=== PATIENT | male | born 1950 | race Caucasian/White ===

== ENCOUNTER 2018-05-06 14:50 | Emergency (ER) | payer OTHER, MEDICARE ==
[2018-05-06] MEDS ORDERED: DEXAMETHASONE SOD PHOS INJ 10 MG/1 ML VIAL IM ONE (15:20)
[2018-05-06] MEDS ORDERED: LIDOCAINE 5% (700 MG) TRANSDERMAL ADH..PATCH TP ONE (15:20)
--- NOTE | 2018-05-06 15:50 | RADIOLOGY REPORT (SQ) ---
EXAM DESCRIPTION: CHEST 2 VIEWS COMPLETED DATE/TIME: 05/06/2018 3:32 pm REASON FOR STUDY: back pain cough COMPARISON: None. NUMBER OF VIEWS: Two view. TECHNIQUE: Frontal and lateral radiographic views of the chest acquired. LIMITATIONS: None. FINDINGS: LUNGS AND PLEURA: No opacities, masses or pneumothorax. No pleural effusion. Attenuated bl ood vessels and flattened cruz-diaphragms. MEDIASTINUM AND HILAR STRUCTURES: No masses. No contour abnormalities. HEART AND VASCULAR STRUCTURES: Heart normal in size and contour. No evidence for failure. BONES: Old left clavicle fracture status post plate and screw fixation. HARDWARE: None in the chest. OTHER: No other significant finding. IMPRESSION: COPD. NO ACUTE RADIOGRAPHIC FINDING IN THE CHEST. TECHNICAL DOCUMENTATION: JOB ID: [id number] [email or web address] All Rights Reserved Reading location - IP/workstation name: [email or web address]
--- NOTE | 2018-05-06 15:51 | RADIOLOGY REPORT (SQ) ---
EXAM DESCRIPTION: L SPINE WHOLE COMPLETED DATE/TIME: 05/06/2018 3:32 pm REASON FOR STUDY: back pain cough COMPARISON: None. NUMBER OF VIEWS: Five views including obliques. TECHNIQUE: AP, lateral, oblique, and sacral radiographic images acquired of the lumbar spine. LIMITATIONS: None. FINDINGS: MINERALIZATION: Normal. SEGMENTATION: Normal. No transitional anatomy. ALIGNMENT: Normal. VERTEBRAE: Maintained height. No fracture or worrisome bone lesion. DISCS: Multilevel disc space narrowing with osteophytes. POSTERIOR ELEMENTS: Pedicles and facets are intact. No pars defect or posterior arch defects. Facet arthropathy is present. HARDWARE: None in the spine. PARASPINAL SOFT TISSUES: Normal. PELVIS: Intact as visualized. No fractures or worrisome bone lesions. SI joints intact. OTHER: No other significant finding. IMPRESSION: SPONDYLOSIS WITHOUT BONE LESION OR FRACTURE. TECHNICAL DOCUMENTATION: JOB ID: [id number] [employer]- All Rights Reserved Reading location - IP/workstation name: [email or web address]
[2018-05-06 16:03] VITALS: BP 164/82
--- NOTE | 2018-05-06 16:06 | ER Document Report ---
ED General - General Chief Complaint: Back Pain Stated Complaint: BACK PAIN Time Seen by Provider: 05/06/18 15:12 TRAVEL OUTSIDE OF THE [place] IN LAST 30 DAYS: No - HPI Patient complains to provider of: Exacerbation of chronic back pain Notes: Patient is a smoker coming in for exacerbation of chronic back pain. Patient states that he is on chronic tramadol therapy however is not been taking his medication stating that "it does not work". Patient states he has oxycodone at home did take the oxycodone with some relief of his pain however only had 2 or 3 and does not have anymore. Patient states he is not taking any of his tramadol today. Patient denies any acute trauma denies any falls denies any fevers chills nausea or vomiting. Pain is worse with moving around. Patient states that he has an appointment to follow-up with pain management in the next 1-2 weeks. Pain is diffuse on the patient's back when having the patient point to an area that specifically hurts - Related Data Allergies/Adverse Reactions: azithromycin Allergy (Verified 05/06/18 14:51) ketorolac [From Toradol] Allergy (Verified 05/06/18 14:51) Penicillins Allergy (Verified 05/06/18 14:51) Past Medical History - Social History Smoking Status: Current Every Day Smoker Family History: Reviewed & Not Pertinent Patient has suicidal ideation: No Patient has homicidal ideation: No - Past Medical History Cardiac Medical History: Reports: Hx Congestive Heart Failure Pulmonary Medical History: Reports: Hx Asthma, Hx Bronchitis, Hx COPD Renal/ Medical History: Denies: Hx Peritoneal Dialysis Review of Systems - Review of Systems Constitutional: No symptoms reported EENT: No symptoms reported Cardiovascular: No symptoms reported Respiratory: No symptoms reported Gastrointestinal: No symptoms reported Genitourinary: No symptoms reported Male Genitourinary: No symptoms reported Musculoskeletal: Back pain Skin: No symptoms reported Hematologic/Lymphatic: No symptoms reported Neurological/Psychological: No symptoms reported -: Yes All other systems reviewed and negative Physical Exam - Vital signs Vitals: Temp Pulse Resp BP Pulse Ox 98.4 F 102 H 24 H 154/72 H 100 05/06/18 14:54 05/06/18 14:54 05/06/18 14:54 05/06/18 14:54 05/06/18 14:54 Interpretation: Normal - General General appearance: Appears well, Alert - HEENT Head: Normocephalic, Atraumatic Eyes: Normal Pupils: PERRL - Respiratory Respiratory status: No respiratory distress Chest status: Nontender Breath sounds: Normal Chest palpation: Normal - Cardiovascular Rhythm: Regular Heart sounds: Normal auscultation Murmur: No - Abdominal Inspection: Normal Distension: No distension Bowel sounds: Normal Tenderness: Nontender Organomegaly: No organomegaly - Back Back: Normal, Tender - Patient has tenderness in the lower L-spine with diffuse paraspinal tenderness T-spine and L-spine. Palpation of the T and L-spine did not reveal any step-offs or deformities. There is no tenderness in the paraspinal region of the neck no midline tenderness - Extremities General upper extremity: Normal inspection, Nontender, Normal color, Normal ROM , Normal temperature General lower extremity: Normal inspection, Nontender, Normal color, Normal ROM , Normal temperature, Normal weight bearing. No: Iliana's sign - Neurological Neuro grossly intact: Yes Cognition: Normal Orientation: AAOx4 [place] Coma Scale Eye Opening: Spontaneous Germaine Coma Scale Verbal: Oriented [place] Coma Scale Motor: Obeys Commands Germaine Coma Scale Total: 15 Speech: Normal Motor strength normal: LUE, RUE, LLE, RLE Sensory: Normal - Psychological Associated symptoms: Normal affect, Normal mood - Skin Skin Temperature: Warm Skin Moisture: Dry Skin Color: Normal Course - Re-evaluation Re-evalutation: 05/06/18 20:37 The patient presents with low back pain without signs of spinal cord compression , cauda equina syndrome, infection, aneurysm, or other serious etiology. The patient is neurologically intact. Given the extremely low risk of these diagnoses further testing and evaluation for these possibilities does not appear to be indicated at this time. The patient has been instructed to return if the symptoms worsen or change in any way. The patient that he is prescribed tramadol recommend patient taking tramadol along with Tylenol or Motrin also to try the Robaxin for his pain. Patient will be discharged home to recommend follow-up primary care physician. - Vital Signs Vital signs: Temp Pulse Resp BP Pulse Ox 98.4 F 95 18 164/82 H 100 05/06/18 16:02 05/06/18 16:02 05/06/18 16:02 05/06/18 16:02 05/06/18 16:02 Discharge - Discharge Clinical Impression: Acute exacerbation of chronic low back pain Condition: Good Disposition: HOME, SELF-CARE Instructions: Ice Packs ([facility]), Low Back Pain ([facility]), Muscle Relaxers ([facility]), Warm Packs ([facility]) Additional Instructions: X-rays not show any acute fracture or other pathology today. Recommend continue with her tramadol at home along with the muscle relaxer provided and taking Tylenol 650 mg. Please make sure you follow-up with your doctors as scheduled return to the ER symptoms worsen. Prescriptions: Methocarbamol [Robaxin 500 mg Tablet] 500 mg PO TID #30 tablet Forms: Smoking Cessation Education
== END 2018-05-06 16:10 | disposition home or self-care (01) ==
LOC: ER 14:50
DX: M54.5 Low back pain (principal); G89.29 Other chronic pain; T40.4X6A Underdosing of other synthetic narcotics, initial encounter; Z91.128 Patient's intentional underdosing of medication regimen for other reason; Z91.14 Patient's other noncompliance with medication regimen; J44.9 Chronic obstructive pulmonary disease, unspecified; F17.200 Nicotine dependence, unspecified, uncomplicated; Z88.1 Allergy status to other antibiotic agents; Z88.8 Allergy status to other drugs, medicaments and biological substances; Z88.0 Allergy status to penicillin
CPT/HCPCS: 99284; 96372; 71046; 72110; J1100

== ENCOUNTER 2019-01-05 21:59 | Inpatient (IN) | payer OTHER, MEDICARE ==
[2019-01-05] MEDS ORDERED: FUROSEMIDE INJ/PF 20 MG/2 ML SDV IV ONE (22:13)
--- NOTE | 2019-01-05 22:17 | ER Document Report ---
ED General - General Stated Complaint: DIFFICULTY BREATHING Time Seen by Provider: 01/05/19 22:05 Notes: Patient is a 68-year-old male who presents with complaint of difficulty breathing. He was seen a week ago by his primary care provider. She informed him that he probably has walking pneumonia and placed him on antibiotics. Said he is finished antibiotic of his breathing is gotten worse. He was also given Tessalon Perles. He denies any chest pain. No fevers. Patient has edema in bilateral lower extremities and is worse difficulty breathing. He says he al ways has some mild edema but has become much worse. He is not on any type of water pill her fluid pill. He does have a known history of CHF as well as a history of cirrhosis of liver. He has not drink alcohol for 10 years. He does smoke. TRAVEL OUTSIDE OF THE [place] IN LAST 30 DAYS: No - Related Data Allergies/Adverse Reactions: azithromycin Allergy (Verified 05/06/18 14:51) ketorolac [From Toradol] Allergy (Verified 05/06/18 14:51) Penicillins Allergy (Verified 05/06/18 14:51) Past Medical History - Social History Smoking Status: Current Every Day Smoker Frequency of alcohol use: former Drug Abuse: None Family History: Reviewed & Not Pertinent - Past Medical History Cardiac Medical History: Reports: Hx Congestive Heart Failure Pulmonary Medical History: Reports: Hx Asthma, Hx Bronchitis, Hx COPD Renal/ Medical History: Denies: Hx Peritoneal Dialysis Review of Systems - Review of Systems Notes: My Normal Review Basic REVIEW OF SYSTEMS: CONSTITUTIONAL : Denies fever, chills, or sweats. Denies recent illness. EENT: Denies eye, ear, throat, or mouth pain or symptoms. Denies nasal or sinus congestion. CARDIOVASCULAR: Denies chest pain. RESPIRATORY: Dyspnea GASTROINTESTINAL: Denies abdominal pain. Denies nausea, vomiting, or diarrhea. GENITOURINARY: Denies difficulty urinating, painful urination, burning, frequency, or blood in urine. MUSCULOSKELETAL: Edema lower extremities SKIN: Denies rash or skin lesions. NEUROLOGICAL: Denies altered mental status or loss of consciousness. Denies headache. Denies weakness or paralysis or loss of use of either side. Denies problems with gait or speech. Denies sensory or motor loss. ALL OTHER SYSTEMS REVIEWED AND NEGATIVE. Physical Exam - Vital signs Vitals: Temp Pulse Resp BP Pulse Ox 98.3 F 118 H 24 H 113/78 98 01/05/19 22:00 01/05/19 22:00 01/05/19 22:00 01/05/19 22:00 01/05/19 22:00 - Notes Notes: General Appearance: Well nourished, alert, cooperative, mild to moderate acute distress, no obvious discomfort. Recurrent coughing during exam. Vitals: reviewed, See vital signs table. Head: no swelling or tenderness to the head Eyes: PERRL, EOMI, Conjuctiva clear Mouth: No decreasd moisture Throat: No tonsillar inflammation, No airway obstruction, No lymphadenopathy Neck: Supple, no neck tenderness, No thyromegaly Lungs: No wheezing, bilateral rales, No rhonci, No accessory muscle use, good air exchange bilaterally. Heart: Normal rate, Regular rythm, No murmur, no rub Abdomen: Normal BS, soft, No rigidity, No abdominal tenderness, No guarding, no rebound, no abdominal masses, no organomegaly Extremities: good pulses in all extremities, no swelling or tenderness in the extremities, 2+ bilateral lower extremity edema. Skin: warm, dry, appropriate color, no rash Neuro: speech clear, oriented x 3, normal affect, responds appropriately to questions. Course - Re-evaluation Re-evalutation: 01/06/19 00:15 Patient has what appears to be fluid overload. He has 3+ edema in his lower extremities. He has elevated BNP. He has rales throughout his lung field on auscultation. He is tachycardic. Symptoms consistent with CHF exacerbation. Have given Lasix. Pain he continues to be tachycardic and continues to have some shortness of breath and is appropriate for admission. I did speak with the hospitalist, Dr. Coe, who agrees to evaluate the patient for admission. Dictation of this chart was performed using voice recognition software; therefore, there may be some unintended grammatical errors. - Vital Signs Vital signs: Temp Pulse Resp BP Pulse Ox 98.3 F 118 H 27 H 126/76 H 96 01/05/19 22:00 01/05/19 22:00 01/05/19 23:01 01/05/19 23:01 01/05/19 23:01 - Laboratory Result Diagrams: 01/05/19 22:44 01/05/19 22:44 Laboratory results interpreted by me: 01/05/19 01/05/19 01/05/19 22:44 22:44 22:44 RBC 4.34 L Hgb 11.5 L Hct 34.6 L MCH 26.5 L RDW 16.2 H Basophils % 2.4 H Sodium 134.1 L AST 115 H Alkaline Phosphatase 222 H NT-Pro-B Natriuret Pep 4980 H Albumin 3.3 L - EKG Interpretation by Me Additional EKG results interpreted by me: 01/05/19 23:20 EKG is reviewed and interpreted by me. EKG shows what I suspect is multifocal atrial tachycardia and that he has a very regular rhythm and he has P waves that appeared to have at least 2 different morphologies. TX interval is within normal range. QRS duration QT intervals are within normal range. Patient could also potentially having a regular sinus tachycardia with occasional PACs. Is difficult to tell by the single EKG. Discharge - Discharge Clinical Impression: Dyspnea Qualifiers: Dyspnea type: orthopnea Qualified Code(s): R06.01 - Orthopnea CHF exacerbation Qualifiers: Heart failure type: unspecified Qualified Code(s): I50.9 - Heart failure, unspecified Condition: Stable Disposition: ADMITTED OBSERVATION Admitting Provider: Saravanan (Hospitalist) Unit Admitted: Telemetry
--- NOTE | 2019-01-05 22:44 | RADIOLOGY REPORT (SQ) ---
EXAM DESCRIPTION: XR CHEST 1 VIEW COMPLETED DATE/TME: 01/05/2019 22:12 CLINICAL HISTORY: 68 years Male, dyspnea COMPARISON: May 06, 2018 NUMBER OF VIEWS/TECHNIQUE: 1/AP FINDINGS: Small bibasilar opacity-effusion. Atherosclerotic vascular disease. Prominent interstitium. Mildly enlarged cardiac silhouette. Osteotomy plate of the left clavicle. No pneumothorax. Stable bony thorax. IMPRESSION: 1. Small bibasilar pneumonia, atelectasis, and/or effusion. 2. Mildly enlarged cardiac silhouette.
[2019-01-05 23:04] LABS: ABSOLUTE BASOPHILS # (AUTO) 0.2 10^3/uL (0.0-0.2); ABSOLUTE EOSINOPHILS # (AUTO) 0.3 10^3/uL (0.0-0.6); ABSOLUTE LYMPHOCYTES (AUTO) 1.4 10^3/uL (0.5-4.7); ABSOLUTE MONOCYTES (AUTO) 0.5 10^3/uL (0.1-1.4); ABSOLUTE NEUT (AUTO) 4.6 10^3/uL (1.7-8.2); BASOPHILS % (AUTO) 2.4 % (0-2); EOSINOPHILS % (AUTO) 3.8 % (0-6); HEMATOCRIT 34.6 % (37.9-51.0); HEMOGLOBIN 11.5 g/dL (13.5-17.0); LYMPHOCYTES % (AUTO) 20.2 % (13-45); MEAN CORPUSCULAR HEMOGLOBIN 26.5 pg (27.0-33.4); MEAN CORPUSCULAR HGB CONC 33.3 g/dL (32.0-36.0); MEAN CORPUSCULAR VOLUME 80 fl (80-97); MONOCYTES % (AUTO) 7.2 % (3-13); PLATELET COUNT 192 10^3/uL (150-450); RED BLOOD COUNT 4.34 10^6/uL (4.35-5.55); RED CELL DISTRIBUTION WIDTH 16.2 % (11.5-14.0); SEGMENTED NEUTROPHILS % (AUTO) 66.4 % (42-78); TOTAL CELLS COUNTED % (AUTO) 100 %
[2019-01-05 23:08] LABS: PROTHROMBIN TIME 14.8 SEC (11.4-15.4)
[2019-01-05 23:22] LABS: ALANINE AMINOTRANSFERASE 70 U/L (21-72); ALBUMIN 3.3 g/dL (3.5-5.0); ALKALINE PHOSPHATASE 222 U/L (38-126); ANION GAP 9 (5-19); ASPARTATE AMINO TRANSFERASE 115 U/L (17-59); BILIRUBIN,DIRECT 0.4 mg/dL (0.0-0.4); BILIRUBIN,TOTAL 0.7 mg/dL (0.2-1.3); BLOOD UREA NITROGEN 20 mg/dL (7-20); CALCIUM 8.8 mg/dL (8.4-10.2); CARBON DIOXIDE 25 mmol/L (22-30); CHLORIDE 100 mmol/L (98-107); GLUCOSE 103 mg/dL (75-110); POTASSIUM 3.9 mmol/L (3.6-5.0); SODIUM 134.1 mmol/L (137-145); TOTAL PROTEIN 7.2 g/dL (6.3-8.2)
[2019-01-05 23:37] LABS: TROPONIN I 0.046 ng/mL
[2019-01-06] MEDS ORDERED: MAGNESIUM HYDROXIDE SUSP 30 ML UDCUP PO PRN (00:14)
[2019-01-06] MEDS ORDERED: ACETAMINOPHEN 325 MG TABLET PO PRN (00:14)
[2019-01-06] MEDS ORDERED: MAG HYDROX/AL HYDROX/SIMETH SUSP 30 ML UDCUP PO PRN (00:14)
[2019-01-06] MEDS ORDERED: FUROSEMIDE INJ/PF 20 MG/2 ML SDV IV ONE (00:16)
[2019-01-06] MEDS ORDERED: METOPROLOL TARTRATE PF/INJ 5 MG/5 ML SDV IV ONE (00:44)
[2019-01-06] MEDS ORDERED: ONDANSETRON HCL INJ/PF 4 MG/2 ML SDV IV ONE (01:53)
[2019-01-06] MEDS ORDERED: ASPIRIN 81 MG TABLET, CHEWABLE PO ONE (02:30)
[2019-01-06] MEDS ORDERED: ENOXAPARIN SODIUM INJ 80 MG/0.8 ML DISP.SYRIN SUBCUT ONE (02:30)
[2019-01-06] MEDS ORDERED: CLOPIDOGREL BISULFATE 300 MG TABLET PO ONE (02:30)
[2019-01-06] MEDS: LORAZEPAM INJ 2 MG/1 ML VIAL IV PRN ×2 (03:03→23:17)
[2019-01-06 04:38] LABS: ANION GAP 7 (5-19); BLOOD UREA NITROGEN 20 mg/dL (7-20); CALCIUM 8.6 mg/dL (8.4-10.2); CARBON DIOXIDE 27 mmol/L (22-30); CHLORIDE 102 mmol/L (98-107); GLUCOSE 98 mg/dL (75-110); POTASSIUM 3.8 mmol/L (3.6-5.0); SODIUM 135.6 mmol/L (137-145)
[2019-01-06 05:22] LABS: APPEARANCE,URINE CLEAR; BILIRUBIN,URINE NEGATIVE (NEGATIVE); COLOR,URINE YELLOW; GLUCOSE, URINE NEGATIVE (NEGATIVE); KETONES,URINE NEGATIVE (NEGATIVE); LEUKOCYTE ESTERASE,URINE NEGATIVE (NEGATIVE); NITRITE,URINE NEGATIVE (NEGATIVE); PROTEIN,URINE NEGATIVE (NEGATIVE); URINE SPECIFIC GRAVITY 1.019
--- NOTE | 2019-01-06 05:26 | PDOC H&P ---
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 Patient presents with 2 weeks of shortness of breath prompting him to seek evaluation at primary care where he is diagnosed with bronchitis and placed on antibiotics with out significant improvement he is subsequently noted nonproductive cough, lower extremity edema and orthopnea prompting to seek evaluation in the emergency room where he is found to have tachycardia, pulmonary vascular congestion, small left-sided pleural effusion, +3 lower extremity edema and a worrisome elevation of AST suggestive of recurrent alcohol dependence. When asked about his known untreated congestive heart failure patient is unable to respond. Past Medical History Cardiac Medical History: Reports: Congestive Heart Failure Pulmonary Medical History: Reports: Asthma, Bronchitis, Chronic Obstructive Pulmonary Disease (COPD) Psychiatric Medical History: Reports: Alcohol Dependency, Tobacco Dependency Past Surgical History Past Surgical History: Reports: Gastric Bypass Surgery Social History Information Source: Patient Smoking Status: Current Every Day Smoker Frequency of Alcohol Use: Heavy - Unclear Drugs: None - Advance Directive Resuscitation Status: Full Code Family History Family History: CAD, COPD, Hypertension Parental Family History Reviewed: Yes Children Family History Reviewed: Yes Sibling(s) Family History Reviewed.: Yes Medication/Allergy Home Medications: Methocarbamol [Robaxin 500 mg Tablet] 500 mg PO TID #30 tablet 05/06/18 Allergies/Adverse Reactions: azithromycin Allergy (Verified 05/06/18 14:51) ketorolac [From Toradol] Allergy (Verified 05/06/18 14:51) Penicillins Allergy (Verified 05/06/18 14:51) Review of Systems Constitutional: PRESENT: as per HPI. ABSENT: chills, fever(s), headache(s), weight gain, weight loss Eyes: ABSENT: visual disturbances Ears: ABSENT: hearing changes Cardiovascular: PRESENT: as per HPI, dyspnea on exertion, edema, orthropnea. ABSENT: chest pain, palpitations Respiratory: PRESENT: as per HPI, cough, dyspnea, sputum. ABSENT: hemoptysis Gastrointestinal: ABSENT: abdominal pain, constipation, diarrhea, hematemesis, hematochezia, nausea, vomiting Genitourinary: ABSENT: dysuria, hematuria Musculoskeletal: ABSENT: joint swelling Integumentary: ABSENT: rash, wounds Neurological: ABSENT: abnormal gait, abnormal speech, confusion, dizziness, focal weakness, syncope Psychiatric: ABSENT: anxiety, depression, homidical ideation, suicidal ideation Endocrine: ABSENT: cold intolerance, heat intolerance, polydipsia, polyuria Hematologic/Lymphatic: ABSENT: easy bleeding, easy bruising Physical Exam Vital Signs: Temp Pulse Resp BP Pulse Ox 97.3 F 118 H 20 93/70 L 97 01/06/19 05:09 01/05/19 22:00 01/06/19 05:09 01/06/19 05:09 01/06/19 05:09 Intake & Output 01/04/19 01/05/19 01/06/19 11:59 11:59 11:59 Output Total 1600 Balance -1600 Weight 83.8 kg Results Laboratory Results: 01/05/19 22:44 01/06/19 04:00 01/05/19 01/05/19 01/05/19 22:44 22:44 22:44 WBC 7.0 RBC 4.34 L Hgb 11.5 L Hct 34.6 L MCV 80 MCH 26.5 L MCHC 33.3 RDW 16.2 H Plt Count 192 Seg Neutrophils % 66.4 Lymphocytes % 20.2 Monocytes % 7.2 Eosinophils % 3.8 Basophils % 2.4 H Absolute Neutrophils 4.6 Absolute Lymphocytes 1.4 Absolute Monocytes 0.5 Absolute Eosinophils 0.3 Absolute Basophils 0.2 Sodium 134.1 L Potassium 3.9 Chloride 100 Carbon Dioxide 25 Anion Gap 9 BUN 20 Creatinine 0.66 Est GFR ( Amer) > 60 Est GFR (Non-Af Amer) > 60 Glucose 103 Calcium 8.8 Total Bilirubin 0.7 AST 115 H ALT 70 Alkaline Phosphatase 222 H Total Protein 7.2 Albumin 3.3 L Lipase TSH 2.14 01/05/19 01/06/19 22:44 04:00 WBC RBC Hgb Hct MCV MCH MCHC RDW Plt Count Seg Neutrophils % Lymphocytes % Monocytes % Eosinophils % Basophils % Absolute Neutrophils Absolute Lymphocytes Absolute Monocytes Absolute Eosinophils Absolute Basophils Sodium 135.6 L Potassium 3.8 Chloride 102 Carbon Dioxide 27 Anion Gap 7 BUN 20 Creatinine 0.63 Est GFR ( Amer) > 60 Est GFR (Non-Af Amer) > 60 Glucose 98 Calcium 8.6 Total Bilirubin AST ALT Alkaline Phosphatase Total Protein Albumin Lipase 49.8 TSH 04/24/19 04/25/19 22:44 04:00 Troponin I 0.046 0.046 NT-Pro-B Natriuret Pep 4980 H Impressions: Chest X-Ray 01/05/19 22:12 IMPRESSION: 1. Small bibasilar pneumonia, atelectasis, and/or effusion. 2. Mildly enlarged cardiac silhouette. Assessment and Plan - Diagnosis (1) CHF exacerbation Qualifiers: Heart failure type: unspecified Qualified Code(s): I50.9 - Heart failure, unspecified Is this a current diagnosis for this admission?: Yes Plan: Initiate beta-sarina, MILAGRO inhibitor, diuresis with loop diuretic. Follow-up serial enzymes and echo (2) Bronchitis Is this a current diagnosis for this admission?: Yes Plan: Flonase, flutter valve. Consider steroids (3) Dyspnea Qualifiers: Dyspnea type: orthopnea Qualified Code(s): R06.01 - Orthopnea Is this a current diagnosis for this admission?: Yes Plan: Multifactorial secondary to CHF exacerbation acute on chronic bronchitis. (4) Alcohol dependence Is this a current diagnosis for this admission?: Yes Plan: Clear history, current denial with tachycardia and elevated AST worrisome for resumption of alcohol. Thiamine, folate, Ativan as needed - Time Time Spent with patient: 35 or more minutes
[2019-01-06] MEDS ORDERED: CHLORPHENIRAMINE MALEATE 4 MG TABLET PO SCH ×2 (06:00→12:00)
[2019-01-06] MEDS ORDERED: HEPARIN SOD (PORCINE) 5,000 UNIT/ML 1 ML SYRINGE SUBCUT SCH (06:00)
--- NOTE | 2019-01-06 08:50 | EKG REPORT ---
SEVERITY:- BORDERLINE ECG - SINUS TACHYCARDIA WITH IRREGULAR RATE 97-160 BORDERLINE T ABNORMALITIES, ANT-LAT LEADS : Confirmed by: Edu Baker MD 06-Jan-2019 08:49:40
[2019-01-06] MEDS: CHLORPHENIRAMINE MALEATE 4 MG TABLET PO SCH ×4 (10:09→23:17)
[2019-01-06] MEDS: THIAMINE HCL 100 MG TABLET PO SCH (10:10)
[2019-01-06] MEDS: DOCUSATE SODIUM 100 MG CAPSULE PO SCH (10:10)
[2019-01-06] MEDS: ASPIRIN 81 MG TABLET, ENT COATED PO SCH (10:10)
[2019-01-06] MEDS: FUROSEMIDE 40 MG TABLET PO SCH (10:10)
[2019-01-06] MEDS: FLUTICASONE NASAL SPRAY 50 MCG/SPRY 120 SPRAY/16 GM NASL SCH ×2 (10:12→22:17)
[2019-01-06] MEDS: NICOTINE 14 MG/24 HR PATCH.TD24 TD SCH (10:13)
[2019-01-06] MEDS: NITROGLYCERIN 5 MG (0.2 MG/HR) PATCH.TD24 TD SCH (10:15)
[2019-01-06] MEDS: TRAMADOL HCL 50 MG TABLET PO PRN ×2 (14:58→22:17)
[2019-01-06] MEDS ORDERED: GUAIFENESIN/D-METHORPHAN (200-20 MG) SYRUP 10 ML PO PRN (15:36)
--- NOTE | 2019-01-06 17:15 | PDOC PROGRESS REPORT ---
Subjective Progress Note for:: 01/06/19 Subjective:: Patient seen resting on side of the bed. He is on oxygen at 3 L/min nasal cannula. He denies chest pain, shortness of breath or dyspnea at rest. He continues to have occasional productive cough. He. He denies any fevers or chills. States he gets dyspneic with minimal exertion. But he is much better than he was when he came in. He denies any significant arthralgias or myalgias. Remaining review of systems are negative Reason For Visit: HEART FAILURE Physical Exam Vital Signs: Temp Pulse Resp BP Pulse Ox 98.4 F 104 H 21 H 101/60 98 01/06/19 05:25 01/06/19 07:59 01/06/19 07:59 01/06/19 07:59 01/06/19 07:59 Intake & Output 01/05/19 01/06/19 01/07/19 06:59 06:59 06:59 Intake Total 0 Output Total 1600 Balance -1600 Weight 83.8 kg General appearance: PRESENT: no acute distress, well-developed, well-nourished Head exam: PRESENT: atraumatic, normocephalic Eye exam: PRESENT: conjunctiva pink, EOMI, PERRLA. ABSENT: scleral icterus Ear exam: PRESENT: normal external ear exam Mouth exam: PRESENT: moist, tongue midline Teeth exam: PRESENT: poor dentation Neck exam: ABSENT: carotid bruit, JVD, lymphadenopathy, thyromegaly Respiratory exam: PRESENT: crackles - Lateral basis, symmetrical, unlabored Cardiovascular exam: PRESENT: RRR. ABSENT: diastolic murmur, rubs, systolic murmur Pulses: PRESENT: normal carotid pulses, normal radial pulses Vascular exam: PRESENT: normal capillary refill GI/Abdominal exam: PRESENT: normal bowel sounds, soft. ABSENT: distended, guarding, mass, organolmegaly, rebound, tenderness Rectal exam: PRESENT: deferred Extremities exam: PRESENT: full ROM, +2 edema - Pedal to the knees Musculoskeletal exam: PRESENT: ambulatory, full ROM Neurological exam: PRESENT: alert, awake, oriented to person, oriented to place, oriented to time, oriented to situation, CN II-XII grossly intact. ABSENT: motor sensory deficit Psychiatric exam: PRESENT: appropriate affect, normal mood. ABSENT: homicidal ideation, suicidal ideation Skin exam: PRESENT: dry, intact, warm. ABSENT: cyanosis, rash Results Laboratory Results: 01/05/19 22:44 01/06/19 04:00 01/05/19 01/05/19 01/05/19 22:44 22:44 22:44 WBC 7.0 RBC 4.34 L Hgb 11.5 L Hct 34.6 L MCV 80 MCH 26.5 L MCHC 33.3 RDW 16.2 H Plt Count 192 Seg Neutrophils % 66.4 Lymphocytes % 20.2 Monocytes % 7.2 Eosinophils % 3.8 Basophils % 2.4 H Absolute Neutrophils 4.6 Absolute Lymphocytes 1.4 Absolute Monocytes 0.5 Absolute Eosinophils 0.3 Absolute Basophils 0.2 Sodium 134.1 L Potassium 3.9 Chloride 100 Carbon Dioxide 25 Anion Gap 9 BUN 20 Creatinine 0.66 Est GFR ( Amer) > 60 Est GFR (Non-Af Amer) > 60 Glucose 103 Calcium 8.8 Total Bilirubin 0.7 AST 115 H ALT 70 Alkaline Phosphatase 222 H Total Protein 7.2 Albumin 3.3 L Lipase TSH 2.14 Urine Color Urine Appearance Urine pH Ur Specific [place] Urine Protein Urine Glucose (UA) Urine Ketones Urine Blood Urine Nitrite Ur Leukocyte Esterase Urine WBC (Auto) Urine RBC (Auto) 01/05/19 01/06/19 01/06/19 22:44 03:00 04:00 WBC RBC Hgb Hct MCV MCH MCHC RDW Plt Count Seg Neutrophils % Lymphocytes % Monocytes % Eosinophils % Basophils % Absolute Neutrophils Absolute Lymphocytes Absolute Monocytes Absolute Eosinophils Absolute Basophils Sodium 135.6 L Potassium 3.8 Chloride 102 Carbon Dioxide 27 Anion Gap 7 BUN 20 Creatinine 0.63 Est GFR ( Amer) > 60 Est GFR (Non-Af Amer) > 60 Glucose 98 Calcium 8.6 Total Bilirubin AST ALT Alkaline Phosphatase Total Protein Albumin Lipase 49.8 TSH Urine Color YELLOW Urine Appearance CLEAR Urine pH 5.0 Ur Specific [place] 1.019 Urine Protein NEGATIVE Urine Glucose (UA) NEGATIVE Urine Ketones NEGATIVE Urine Blood NEGATIVE Urine Nitrite NEGATIVE Ur Leukocyte Esterase NEGATIVE Urine WBC (Auto) 1 Urine RBC (Auto) 0 01/05/19 01/06/19 22:44 04:00 Troponin I 0.046 0.046 NT-Pro-B Natriuret Pep 4980 H Impressions: Chest X-Ray 01/05/19 22:12 IMPRESSION: 1. Small bibasilar pneumonia, atelectasis, and/or effusion. 2. Mildly enlarged cardiac silhouette. Assessment and Plan - Diagnosis (1) CHF exacerbation Qualifiers: Heart failure type: unspecified Qualified Code(s): I50.9 - Heart failure, unspecified Is this a current diagnosis for this admission?: Yes Plan: Initiate beta-sarina, MILAGRO inhibitor, diuresis with loop diuretic. Follow-up serial enzymes and echo. (2) Bronchitis Is this a current diagnosis for this admission?: Yes Plan: Flonase, flutter valve. Consider steroids (3) Dyspnea Qualifiers: Dyspnea type: orthopnea Qualified Code(s): R06.01 - Orthopnea Is this a current diagnosis for this admission?: Yes Plan: Multifactorial secondary to CHF exacerbation acute on chronic bronchitis. (4) Tobacco abuse Is this a current diagnosis for this admission?: Yes Plan: Counseled. He is contemplating quitting smoking (5) Cirrhosis Is this a current diagnosis for this admission?: Yes Plan: He states he has not drank in some time. He takes no medications for cirrhosis - Time Time Spent with patient: 25-34 minutes Total Critical Time (Minutes): 25 Smoking Cessation Education: 3 to 10 minutes Medications reviewed and adjusted accordingly: Yes Anticipated discharge: Home with Homehealth Within: within 24 hours - Inpatient Certification Based on my medical assessment, after consideration of the patient's comorbidities, presenting symptoms, or acuity I expect that the services needed warrant INPATIENT care.: Yes I certify that my determination is in accordance with my understanding of Medicare's requirements for reasonable and necessary INPATIENT services [42 CFR 412.3e].: Yes Medical Necessity: Failure to Improve With Outpatient Therapy, Significant Comorbidiites Make Outpatient Treatment Too Risky
[2019-01-06] MEDS: NYSTATIN CREAM 15 GM TP SCH (18:04)
[2019-01-06] MEDS: ENOXAPARIN SODIUM INJ 80 MG/0.8 ML DISP.SYRIN SUBCUT SCH (18:05)
[2019-01-06] MEDS: BENZOCAINE/MENTHOL SORE THROAT LOZENGE BUCCAL PRN ×2 (20:37→22:16)
[2019-01-07] MEDS: BENZOCAINE/MENTHOL SORE THROAT LOZENGE BUCCAL PRN ×5 (05:09→21:45)
[2019-01-07] MEDS: ENOXAPARIN SODIUM INJ 80 MG/0.8 ML DISP.SYRIN SUBCUT SCH (05:09)
[2019-01-07 07:37] LABS: HEMATOCRIT 35.2 % (37.9-51.0); HEMOGLOBIN 11.6 g/dL (13.5-17.0); MEAN CORPUSCULAR HEMOGLOBIN 26.2 pg (27.0-33.4); MEAN CORPUSCULAR VOLUME 79 fl (80-97); PLATELET COUNT 173 10^3/uL (150-450); RED BLOOD COUNT 4.44 10^6/uL (4.35-5.55); WHITE BLOOD COUNT 6.1 10^3/uL (4.0-10.5)
[2019-01-07 08:09] LABS: ANION GAP 8 (5-19); BLOOD UREA NITROGEN 21 mg/dL (7-20); CALCIUM 7.9 mg/dL (8.4-10.2); CARBON DIOXIDE 31 mmol/L (22-30); CHLORIDE 97 mmol/L (98-107); GLUCOSE 102 mg/dL (75-110); POTASSIUM 4.1 mmol/L (3.6-5.0); SODIUM 136.3 mmol/L (137-145)
[2019-01-07] MEDS: POTASSIUM CHLORIDE 10 MEQ CAPSULE.ER PO SCH (09:57)
[2019-01-07] MEDS: THIAMINE HCL 100 MG TABLET PO SCH (09:57)
[2019-01-07] MEDS: LOSARTAN POTASSIUM 25 MG TABLET PO SCH (09:57)
[2019-01-07] MEDS: NICOTINE 14 MG/24 HR PATCH.TD24 TD SCH (09:57)
[2019-01-07] MEDS: ASPIRIN 81 MG TABLET, ENT COATED PO SCH (09:57)
[2019-01-07] MEDS: FUROSEMIDE 40 MG TABLET PO SCH (09:57)
[2019-01-07] MEDS: DOCUSATE SODIUM 100 MG CAPSULE PO SCH (09:57)
[2019-01-07] MEDS: NYSTATIN CREAM 15 GM TP SCH ×2 (10:14→17:33)
[2019-01-07] MEDS: FLUTICASONE NASAL SPRAY 50 MCG/SPRY 120 SPRAY/16 GM NASL SCH ×2 (10:14→21:46)
[2019-01-07] MEDS: NITROGLYCERIN 5 MG (0.2 MG/HR) PATCH.TD24 TD SCH (10:14)
[2019-01-07] MEDS: GUAIFENESIN/CODEINE PHOS 100-10 MG/ 5 ML UDC PO PRN ×2 (12:10→21:49)
[2019-01-07] MEDS: MIDODRINE HCL 5 MG TABLET PO SCH (17:32)
[2019-01-07] MEDS: METOPROLOL SUCCINATE 25 MG TAB.SR.24H PO SCH (17:32)
[2019-01-07] MEDS ORDERED: HYDROCODONE BIT/HOMATROPINE SYRUP 5 ML UDCUP PO PRN (17:32)
--- NOTE | 2019-01-07 17:39 | PDOC PROGRESS REPORT ---
Subjective Progress Note for:: 01/07/19 Subjective:: Patient seen resting on side of the bed. He is on oxygen at 2 L/min nasal cannula. He denies chest pain, shortness of breath or dyspnea at rest. He continues to have occasional productive cough. He. He denies any fevers or chills. He states shortness of breath is improved with exertion. He is asking when he can go home. He is feeling much better than he was when he came in. He denies any significant arthralgias or myalgias. Remaining review of systems are negative Reason For Visit: ACUTE ON CHRONIC DIASTOLIC HEART FAILURE Physical Exam Vital Signs: Temp Pulse Resp BP Pulse Ox 98.0 F 94 22 H 97/65 L 96 01/07/19 11:52 01/07/19 14:00 01/07/19 11:52 01/07/19 11:52 01/07/19 11:52 Intake & Output 01/06/19 01/07/19 01/08/19 06:59 06:59 06:59 Intake Total 0 638 Output Total 1600 Balance -1600 638 Weight 83.8 kg 84.8 kg General appearance: PRESENT: no acute distress, well-developed, well-nourished Head exam: PRESENT: atraumatic, normocephalic Eye exam: PRESENT: conjunctiva pink, EOMI, PERRLA. ABSENT: scleral icterus Ear exam: PRESENT: normal external ear exam Mouth exam: PRESENT: moist Teeth exam: PRESENT: poor dentation Neck exam: ABSENT: carotid bruit, JVD, lymphadenopathy, thyromegaly Respiratory exam: PRESENT: crackles, symmetrical, unlabored - bilateral bases Cardiovascular exam: PRESENT: +S1, +S2 Pulses: PRESENT: normal carotid pulses, normal radial pulses Vascular exam: PRESENT: normal capillary refill Rectal exam: PRESENT: deferred Extremities exam: PRESENT: full ROM, +1 edema Musculoskeletal exam: PRESENT: ambulatory Neurological exam: PRESENT: alert, awake, oriented to person, oriented to place, oriented to time, oriented to situation, CN II-XII grossly intact. ABSENT: motor sensory deficit Psychiatric exam: PRESENT: appropriate affect, normal mood. ABSENT: homicidal ideation, suicidal ideation Skin exam: PRESENT: dry, skin tears - left elbow, warm Results Laboratory Results: 01/07/19 07:26 01/07/19 07:26 01/07/19 01/07/19 07:26 07:26 WBC 6.1 RBC 4.44 Hgb 11.6 L Hct 35.2 L MCV 79 L MCH 26.2 L MCHC 33.0 RDW 16.0 H Plt Count 173 Sodium 136.3 L Potassium 4.1 Chloride 97 L Carbon Dioxide 31 H Anion Gap 8 BUN 21 H Creatinine 0.69 Est GFR ( Amer) > 60 Est GFR (Non-Af Amer) > 60 Glucose 102 Calcium 7.9 L 01/05/19 01/06/19 01/07/19 22:44 04:00 07:26 Troponin I 0.046 0.046 0.051 NT-Pro-B Natriuret Pep 4980 H Impressions: Chest X-Ray 01/05/19 22:12 IMPRESSION: 1. Small bibasilar pneumonia, atelectasis, and/or effusion. 2. Mildly enlarged cardiac silhouette. Assessment and Plan - Diagnosis (1) CHF exacerbation Qualifiers: Heart failure type: systolic Qualified Code(s): I50.23 - Acute on chronic systolic (congestive) heart failure Is this a current diagnosis for this admission?: Yes Plan: Initiate beta-sarina, MILAGRO inhibitor, diuresis with loop diuretic. Echocardiogram shows his EF to be 20%. His blood pressure has been marginal in the 90s to low 100s. Case was discussed with Dr. Sandoval, director of institutional research. He suggested starting patient on midodrine and and Toprol-XL. He has been having a lot of ectopy with PACs, and PVCs. She states he was told over 7 years ago that he had heart failure. He never has seen a director of institutional research. He states he would like to see a mortgage loan specialist because "I am not ready to ." (2) Bronchitis Is this a current diagnosis for this admission?: Yes Plan: Flonase, flutter valve. Consider steroids (3) Dyspnea Qualifiers: Dyspnea type: orthopnea Qualified Code(s): R06.01 - Orthopnea Is this a current diagnosis for this admission?: Yes Plan: Multifactorial secondary to CHF exacerbation acute on chronic bronchitis. (4) Tobacco abuse Is this a current diagnosis for this admission?: Yes Plan: Counseled. He is contemplating quitting smoking (5) Cirrhosis Is this a current diagnosis for this admission?: Yes Plan: He states he has not drank in some time, over 7 years. He takes no medications for cirrhosis - Time Time Spent with patient: 25-34 minutes Total Critical Time (Minutes): 25 Medications reviewed and adjusted accordingly: Yes - Inpatient Certification Based on my medical assessment, after consideration of the patient's comorbidities, presenting symptoms, or acuity I expect that the services needed warrant INPATIENT care.: Yes I certify that my determination is in accordance with my understanding of Medicare's requirements for reasonable and necessary INPATIENT services [42 CFR 412.3e].: Yes Medical Necessity: Failure to Improve With Outpatient Therapy, Need For Continuous Telemetry Monitoring, Risk of Complication if Not Cared For in Hospital
[2019-01-07 17:59] LABS: APPEARANCE,URINE CLEAR; BILIRUBIN,URINE NEGATIVE (NEGATIVE); COLOR,URINE STRAW; GLUCOSE, URINE NEGATIVE (NEGATIVE); KETONES,URINE NEGATIVE (NEGATIVE); LEUKOCYTE ESTERASE,URINE NEGATIVE (NEGATIVE); NITRITE,URINE NEGATIVE (NEGATIVE); PROTEIN,URINE NEGATIVE (NEGATIVE); URINE SPECIFIC GRAVITY 1.009; UROBILINOGEN,URINE NEGATIVE mg/dL (<2.0)
[2019-01-07] MEDS ORDERED: KETOROLAC TROMETHAMINE INJ/PF 30 MG/1 ML SDV IV ONE (18:00)
[2019-01-07] MEDS: MORPHINE SULFATE 10 MG/ML INJ IV PRN ×2 (18:24→22:43)
[2019-01-07] MEDS: LORAZEPAM INJ 2 MG/1 ML VIAL IV PRN (21:49)
[2019-01-08] MEDS: BENZOCAINE/MENTHOL SORE THROAT LOZENGE BUCCAL PRN ×6 (00:46→17:47)
[2019-01-08] MEDS: HYDROCODONE BIT/HOMATROPINE 5-1.5 MG TABLET PO PRN ×2 (06:44→12:06)
[2019-01-08] MEDS: MORPHINE SULFATE 10 MG/ML INJ IV PRN ×2 (07:47→12:06)
[2019-01-08] MEDS: METOPROLOL SUCCINATE 25 MG TAB.SR.24H PO SCH (10:01)
[2019-01-08] MEDS: DOCUSATE SODIUM 100 MG CAPSULE PO SCH (10:01)
[2019-01-08] MEDS: ASPIRIN 81 MG TABLET, ENT COATED PO SCH (10:02)
[2019-01-08] MEDS: THIAMINE HCL 100 MG TABLET PO SCH (10:02)
[2019-01-08] MEDS: MIDODRINE HCL 5 MG TABLET PO SCH ×3 (10:02→17:47)
[2019-01-08] MEDS: NITROGLYCERIN 5 MG (0.2 MG/HR) PATCH.TD24 TD SCH (10:02)
[2019-01-08] MEDS: FUROSEMIDE 40 MG TABLET PO SCH (10:03)
[2019-01-08] MEDS: FLUTICASONE NASAL SPRAY 50 MCG/SPRY 120 SPRAY/16 GM NASL SCH ×2 (10:03→21:57)
[2019-01-08] MEDS: LOSARTAN POTASSIUM 25 MG TABLET PO SCH (10:03)
[2019-01-08] MEDS: NICOTINE 14 MG/24 HR PATCH.TD24 TD SCH (10:03)
[2019-01-08] MEDS: POTASSIUM CHLORIDE 10 MEQ CAPSULE.ER PO SCH (10:04)
[2019-01-08] MEDS: NYSTATIN CREAM 15 GM TP SCH ×2 (10:04→17:55)
[2019-01-08] MEDS: LIDOCAINE 5% (700 MG) TRANSDERMAL ADH..PATCH TP SCH (12:24)
--- NOTE | 2019-01-08 16:06 | PDOC PROGRESS REPORT ---
Subjective Progress Note for:: 01/08/19 Subjective:: This is a 68 yr old male with a PMH of ischemic cardiomyopathy, CHF, poor compliance, who presented with increasing SOB. He was admitted for CHD exacerbation. Chest x-ray does show concomitant pneumonia. Echo showed an EF of 20%. No acute event overnight. He says his SOB continue to improve. He does have productive cough. Denies chest pain. Reason For Visit: ACUTE ON CHRONIC DIASTOLIC HEART FAILURE Physical Exam Vital Signs: Temp Pulse Resp BP Pulse Ox 97.7 F 78 16 104/65 98 01/08/19 12:00 01/08/19 12:00 01/08/19 12:00 01/08/19 12:00 01/08/19 12:00 Intake & Output 01/07/19 01/08/19 01/09/19 06:59 06:59 06:59 Intake Total 638 1410 Output Total 300 Balance 638 1110 Weight 186 lb 15.232 oz 189 lb 2.506 oz General appearance: PRESENT: no acute distress, well-developed, well-nourished Head exam: PRESENT: atraumatic, normocephalic Eye exam: PRESENT: conjunctiva pink, EOMI, PERRLA. ABSENT: scleral icterus Ear exam: PRESENT: normal external ear exam Mouth exam: PRESENT: moist, tongue midline Neck exam: ABSENT: carotid bruit, JVD, lymphadenopathy, thyromegaly Respiratory exam: PRESENT: rhonchi. ABSENT: rales, wheezes Cardiovascular exam: PRESENT: RRR. ABSENT: diastolic murmur, rubs, systolic murmur Pulses: PRESENT: normal dorsalis pedis pul GI/Abdominal exam: PRESENT: normal bowel sounds, soft. ABSENT: distended, guarding, mass, organolmegaly, rebound, tenderness Rectal exam: PRESENT: deferred Neurological exam: PRESENT: alert, awake, oriented to person, oriented to place, oriented to time, oriented to situation, CN II-XII grossly intact. ABSENT: motor sensory deficit Results Laboratory Results: 01/07/19 07:26 01/07/19 07:26 01/07/19 17:42 Urine Color STRAW Urine Appearance CLEAR Urine pH 5.0 Ur Specific [place] 1.009 Urine Protein NEGATIVE Urine Glucose (UA) NEGATIVE Urine Ketones NEGATIVE Urine Blood NEGATIVE Urine Nitrite NEGATIVE Ur Leukocyte Esterase NEGATIVE Urine WBC (Auto) 1 Urine RBC (Auto) 0 01/05/19 01/06/19 01/07/19 22:44 04:00 07:26 Troponin I 0.046 0.046 0.051 NT-Pro-B Natriuret Pep 4980 H Impressions: Chest X-Ray 01/05/19 22:12 IMPRESSION: 1. Small bibasilar pneumonia, atelectasis, and/or effusion. 2. Mildly enlarged cardiac silhouette. Assessment and Plan - Diagnosis (1) Pneumonia Is this a current diagnosis for this admission?: Yes Plan: Start Levaquin. Send for sputum culture. Continue breathing treatments. (2) CHF exacerbation Qualifiers: Heart failure type: systolic Qualified Code(s): I50.23 - Acute on chronic systolic (congestive) heart failure Is this a current diagnosis for this admission?: Yes Plan: Started on metoprolol, losartan, and Lasix. Echocardiogram shows his EF to be 20%. Discussed with cardiology. Patient may need a Lifevest.
[2019-01-08] MEDS: LORAZEPAM INJ 2 MG/1 ML VIAL IV PRN (17:47)
[2019-01-08] MEDS ORDERED: METHYLPREDNISOLONE INJ 125 MG/2 ML SDV ONE (18:09)
[2019-01-08] MEDS: IPRATROPIUM/ALBUTEROL 0.5-2.5 MG/3 ML AMPUL NEB SCH ×3 (18:25→23:55)
[2019-01-08 18:28] LABS: ARTERIAL BLOOD H2CO3 1.46 mmol/L (1.05-1.35); ARTERIAL BLOOD HCO3 29.6 mmol/L (20-24); ARTERIAL BLOOD O2 SATURATION 97.7 % (94-98); ARTERIAL BLOOD PCO2 48.5 mmHg (35-45); ARTERIAL BLOOD TOTAL CO2 31.1 mmol/L (23-27)
[2019-01-08 18:29] LABS: ARTERIAL BLOOD FIO2 8L
[2019-01-08] MEDS ORDERED: IPRATROPIUM/ALBUTEROL 0.5-2.5 MG/3 ML AMPUL NEB ONE (18:40)
[2019-01-08] MEDS ORDERED: LEVOFLOXACIN 750 MG/D5W RTU 750 MG/150 ML RTUPB IV ONE (19:00)
[2019-01-08] MEDS ORDERED: LORAZEPAM INJ 2 MG/1 ML VIAL ONE (19:55)
[2019-01-08] MEDS ORDERED: PROPOFOL 1,000 MG/100 ML INFUS..BTL IV ONE (19:57)
--- NOTE | 2019-01-08 20:04 | RADIOLOGY REPORT (SQ) ---
EXAM DESCRIPTION: CHEST SINGLE VIEW COMPLETED DATE/TIME: 01/08/2019 6:33 pm REASON FOR STUDY: SOB COMPARISON: 01/05/2019 EXAM PARAMETERS: NUMBER OF VIEWS: One view. TECHNIQUE: Single frontal radiographic view of the chest acquired. RADIATION DOSE: NA LIMITATIONS: None. FINDINGS: LUNGS AND PLEURA: No significant change in small bilateral pleural effusions. MEDIASTINUM AND HILAR STRUCTURES: No masses. Contour normal. HEART AND VASCULAR STRUCTURES: Gross cardiomegaly. BONES: No acute findings. HARDWARE: None in the chest. OTHER: No other significant finding. IMPRESSION: No significant change in small bilateral pleural effusions and gross cardiomegaly. No n ew airspace opacity. TECHNICAL DOCUMENTATION: JOB ID: [id number] [employer]- All Rights Reserved Reading location - IP/workstation name: [email or web address]
[2019-01-08 20:13] LABS: ARTERIAL BLOOD BASE EXCESS -3.3 mmol/L; ARTERIAL BLOOD H2CO3 1.07 mmol/L (1.05-1.35); ARTERIAL BLOOD HCO3 21.1 mmol/L (20-24); ARTERIAL BLOOD O2 SATURATION 98.9 % (94-98); ARTERIAL BLOOD PCO2 35.5 mmHg (35-45); ARTERIAL BLOOD PH 7.39 (7.35-7.45); ARTERIAL BLOOD PO2 150.5 mmHg (80-100); ARTERIAL BLOOD TOTAL CO2 22.1 mmol/L (23-27)
[2019-01-08] MEDS ORDERED: DOBUTAMINE HCL/D5W 500 MG/250 ML RTUINJ IV ONE (20:13)
[2019-01-08] MEDS: DOBUTAMINE HCL/D5W 500 MG/250 ML RTUINJ IV PRN (20:26)
[2019-01-08 20:56] LABS: ALANINE AMINOTRANSFERASE 85 U/L (21-72); ALBUMIN 3.6 g/dL (3.5-5.0); ALKALINE PHOSPHATASE 230 U/L (38-126); ANION GAP 10 (5-19); ASPARTATE AMINO TRANSFERASE 167 U/L (17-59); BILIRUBIN,DIRECT 0.5 mg/dL (0.0-0.4); BILIRUBIN,TOTAL 0.8 mg/dL (0.2-1.3); BLOOD UREA NITROGEN 28 mg/dL (7-20); CALCIUM 8.2 mg/dL (8.4-10.2); CARBON DIOXIDE 29 mmol/L (22-30); CHLORIDE 95 mmol/L (98-107); GLUCOSE 132 mg/dL (75-110); POTASSIUM 5.4 mmol/L (3.6-5.0); SODIUM 133.8 mmol/L (137-145); TOTAL PROTEIN 7.6 g/dL (6.3-8.2)
[2019-01-08 21:08] LABS: CREATINE KINASE MB 1.78 ng/mL (<4.55); TROPONIN I 0.03 ng/mL
--- NOTE | 2019-01-08 21:30 | OPERATIVE REPORT E ---
Operative Report NAME: DURAN TELLES : 1950 AGE: 68Y DATE OF SURGERY: 01/08/2019 ROOM: 436 PREOPERATIVE DIAGNOSIS: POOR VEINS FOR PERIPHERAL IV ACCESS AND NEEDED CENTRAL LINE, ALSO FOR MEDICATIONS. POSTOPERATIVE DIAGNOSIS: POOR VEINS FOR PERIPHERAL IV ACCESS AND NEEDED CENTRAL LINE, ALSO FOR MEDICATIONS. PROCEDURE: Placement of right internal jugular vein triple-lumen catheter under ultrasound guidance. SURGEON: JENNIFER ADAIR M.D. ANESTHESIA: Local. INDICATION: This is a 68-year-old male transferred to the ICU because of requirement for respiratory failure and CHF. He does not have any good veins for IV access in the arms. A request was made to put in a central line. DESCRIPTION OF PROCEDURE: The patient was placed in slight Trendelenburg position and the right neck prepped and draped in the usual sterile fashion. Local anesthesia infiltrated below the skin after ultrasound identification of the right internal jugular vein. The right internal jugular vein was subsequently punctured and a guidewire passed through the needle towards the superior vena cava. The needle was removed and the puncture site dilated. A triple-lumen catheter was then inserted through the guidewire to a distance of about 17 cm. All the 3 ports of the catheter aspirated blood easily and instilled saline easily. The catheter was then anchored to the skin with 3-0 Silk. Biopatch placed at the insertion site and a transparent sterile dressing placed over the Biopatch and catheter. A chest x-ray will be performed for placement. DICTATING PHYSICIAN: JENNIFER ADAIR M.D. [id number] Y#: [id number] ID: [id number] JOB#: [id number] ACCT: [id number] cc:JENNIFER ADAIR M.D. >
--- NOTE | 2019-01-08 21:37 | RADIOLOGY REPORT (SQ) ---
EXAM DESCRIPTION: XR ABDOMEN 2 VIEWS SUPINE ERECT COMPLETED DATE/TME: 01/08/2019 00:00 CLINICAL HISTORY: 68 years, Male, vomiting COMPARISON: None. NUMBER OF VIEWS: Two TECHNIQUE: Two frontal radiographs of the abdomen were obtained LIMITATIONS: None. FINDINGS: Gas and a large amount of stool are noted throughout the large bowel. Scattered nondilated loops of small bowel are also visible throughout the abdomen. A Potter catheter is in position. There is arterial calcinosis. Surgical clips project over the right upper quadrant. No suspicious soft tissue calcifications. No subdiaphragmatic free air is appreciated. Small left pleural effusion is partially imaged. IMPRESSION: Nonobstructive bowel gas pattern. Large colonic stool load. Partially imaged polypoid pleural effusion. copyright 2010 [employer]- All Rights Reserved
--- NOTE | 2019-01-08 21:50 | RADIOLOGY REPORT (SQ) ---
EXAM DESCRIPTION: XR CHEST 1 VIEW COMPLETED DATE/TME: 01/08/2019 20:49 CLINICAL HISTORY: 68 years, Male, LINE PLacement COMPARISON: None. NUMBER OF VIEWS: TECHNIQUE: LIMITATIONS: None. FINDINGS: The tip of the right-sided jugular venous line is in the superior vena cava. There is cardiomegaly. There is mild pulmonary vascular congestion. There is considerable increased opacity at the left lung base, compatible with pleural effusion and/or atelectasis and/or infiltrate. IMPRESSION: The tip of the central venous line is in the superior vena cava. Cardiomegaly with mild pulmonary vascular congestion. Left basilar pleural effusion and/or atelectasis and/or infiltrate. copyright 2010 [employer]- All Rights Reserved
[2019-01-08] MEDS: FUROSEMIDE INJ/PF 20 MG/2 ML SDV IV SCH ×2 (21:57→22:34)
[2019-01-08] MEDS: METHYLPREDNISOLONE INJ 40 MG/1 ML SDV IV SCH (21:58)
--- NOTE | 2019-01-08 22:26 | EKG REPORT ---
SEVERITY:- BORDERLINE ECG - SINUS RHYTHM LOW VOLTAGE IN FRONTAL LEADS BORDERLINE T ABNORMALITIES, ANT-LAT LEADS : Confirmed by: Edu Baker MD 08-Jan-2019 22:25:44
[2019-01-08] MEDS ORDERED: LACTULOSE SYRUP 20 GM/30 ML UDCUP ONE (22:54)
[2019-01-08] MEDS: LACTULOSE SYRUP 20 GM/30 ML UDCUP PR SCH (23:08)
[2019-01-09] MEDS ORDERED: DEXTROSE 5%-WATER 250 ML with NOREPINEPHRINE BITARTRATE 4 MG IV PRN ×2 (00:29)
[2019-01-09] MEDS ORDERED: PHENYLEPHRINE HCL INJ/PF 10 MG/1 ML SDV ONE (01:00)
[2019-01-09] MEDS: DEXTROSE 5%-WATER 250 ML with PHENYLEPHRINE HCL 40 MG IV PRN ×8 (01:11→23:14)
[2019-01-09] MEDS: IPRATROPIUM/ALBUTEROL 0.5-2.5 MG/3 ML AMPUL NEB SCH ×6 (04:15→23:45)
[2019-01-09] MEDS ORDERED: LIDOCAINE 1% INJ-PF (10 MG/ML) 30 ML SDV ONE (04:24)
[2019-01-09 05:53] LABS: ANION GAP 10 (5-19); BLOOD UREA NITROGEN 27 mg/dL (7-20); CARBON DIOXIDE 30 mmol/L (22-30); CHLORIDE 94 mmol/L (98-107); GLUCOSE 173 mg/dL (75-110); POTASSIUM 4.6 mmol/L (3.6-5.0); SODIUM 133.9 mmol/L (137-145)
[2019-01-09] MEDS: METHYLPREDNISOLONE INJ 40 MG/1 ML SDV IV SCH ×3 (06:09→21:46)
--- NOTE | 2019-01-09 09:02 | PDOC PROGRESS REPORT ---
Subjective Progress Note for:: 01/09/19 Subjective:: Patient seen resting on side of the bed. He is on oxygen at 3L/min nasal cannula. He did wear the BiPAP last night for short while until he woke up confused and pulled it off. He also attempted to pull out the central line. He denies chest pain, shortness of breath or dyspnea at rest. He continues to have occasional productive cough. He denies any nausea, vomiting or abdominal pain. He denies any diarrhea or headache. He denies any fevers or chills. He denies any significant arthralgias or myalgias. Remaining review of systems are negative Reason For Visit: ACUTE ON CHRONIC DIASTOLIC HEART FAILURE Physical Exam Vital Signs: Temp Pulse Resp BP Pulse Ox 97.0 F 79 16 91/59 L 92 01/09/19 05:38 01/09/19 07:41 01/09/19 04:27 01/08/19 20:23 01/09/19 04:27 Intake & Output 01/08/19 01/09/19 01/10/19 06:59 06:59 06:59 Intake Total 1410 830 222 Output Total 300 2000 Balance 1110 -1170 222 Weight 85.8 kg 75.5 kg General appearance: PRESENT: no acute distress, well-developed, well-nourished, other - Chronically ill-appearing Head exam: PRESENT: atraumatic, normocephalic Eye exam: PRESENT: conjunctiva pink, EOMI, PERRLA. ABSENT: scleral icterus Ear exam: PRESENT: normal external ear exam Mouth exam: PRESENT: moist, tongue midline Teeth exam: PRESENT: poor dentation Neck exam: ABSENT: carotid bruit, JVD, lymphadenopathy, thyromegaly Respiratory exam: PRESENT: crackles - Left base, rhonchi, symmetrical, unlabored Cardiovascular exam: PRESENT: RRR, systolic murmur - 2/6. ABSENT: diastolic murmur, rubs Pulses: PRESENT: normal carotid pulses, normal radial pulses Vascular exam: PRESENT: normal capillary refill GI/Abdominal exam: PRESENT: normal bowel sounds, soft. ABSENT: distended, guarding, mass, organolmegaly, rebound, tenderness Rectal exam: PRESENT: deferred Extremities exam: PRESENT: +1 edema - Pedal improved Musculoskeletal exam: PRESENT: full ROM, normal inspection Neurological exam: PRESENT: alert, awake, oriented to person, oriented to place, oriented to time, oriented to situation, CN II-XII grossly intact, other - He does have periods of confusion and agitation at times. ABSENT: motor sensory deficit Psychiatric exam: PRESENT: anxious Skin exam: PRESENT: dry, warm - Skin tear to left elbow. Multiple ecchymosis bilateral forearms Results Laboratory Results: 01/07/19 07:26 01/09/19 05:14 01/08/19 01/08/19 01/08/19 18:19 20:00 20:23 Carbonic Acid 1.46 H 1.07 HCO3/H2CO3 Ratio 20:1 19:1 ABG pH 7.40 7.39 ABG pCO2 48.5 H 35.5 ABG pO2 103.0 H 150.5 H ABG HCO3 29.6 H 21.1 ABG O2 Saturation 97.7 98.9 H ABG Base Excess 4.0 -3.3 FiO2 8L 15% Sodium 133.8 L Potassium 5.4 H Chloride 95 L Carbon Dioxide 29 Anion Gap 10 BUN 28 H Creatinine 0.94 Est GFR ( Amer) > 60 Est GFR (Non-Af Amer) > 60 Glucose 132 H Calcium 8.2 L Magnesium 1.6 Total Bilirubin 0.8 AST 167 H ALT 85 H Alkaline Phosphatase 230 H Total Protein 7.6 Albumin 3.6 01/09/19 05:14 Carbonic Acid HCO3/H2CO3 Ratio ABG pH ABG pCO2 ABG pO2 ABG HCO3 ABG O2 Saturation ABG Base Excess FiO2 Sodium 133.9 L Potassium 4.6 Chloride 94 L Carbon Dioxide 30 Anion Gap 10 BUN 27 H Creatinine 0.82 Est GFR ( Amer) > 60 Est GFR (Non-Af Amer) > 60 Glucose 173 H Calcium 8.0 L Magnesium Total Bilirubin AST ALT Alkaline Phosphatase Total Protein Albumin 01/05/19 01/06/19 01/07/19 22:44 04:00 07:26 Creatine Kinase CK-MB (CK-2) Troponin I 0.046 0.046 0.051 NT-Pro-B Natriuret Pep 4980 H 01/08/19 01/08/19 01/08/19 20:23 20:23 20:23 Creatine Kinase 38 L CK-MB (CK-2) 1.78 Troponin I 0.030 NT-Pro-B Natriuret Pep 6070 H Impressions: Abdomen X-Ray 01/08/19 00:00 IMPRESSION: Nonobstructive bowel gas pattern. Large colonic stool load. Partially imaged polypoid pleural effusion. copyright 2010 [employer]- All Rights Reserved Chest X-Ray 01/08/19 20:49 IMPRESSION: The tip of the central venous line is in the superior vena cava. Cardiomegaly with mild pulmonary vascular congestion. Left basilar pleural effusion and/or atelectasis and/or infiltrate. copyright 2010 [employer]- All Rights Reserved Assessment and Plan - Diagnosis (1) Acute on chronic systolic heart failure, NYHA class 3 Is this a current diagnosis for this admission?: Yes Plan: Is on low-dose beta-sarina, MILAGRO and diuretics. Cardiology is following. He was started on IV dobutamine last evening by Dr. Sandoval. He is on IV Dawson- Synephrine for blood pressure support. (2) Dyspnea Qualifiers: Dyspnea type: orthopnea Qualified Code(s): R06.01 - Orthopnea Is this a current diagnosis for this admission?: Yes Plan: Multifactorial secondary to CHF exacerbation acute on chronic systolic heart failure. Recent community-acquired pneumonia in the left lower lobe. He was much improved since admission until yesterday. He went into acute respiratory distress last evening with diffuse wheezing and rhonchi requiring BiPAP therapy and transferred to ICU for closer monitoring. (3) Hypotension Is this a current diagnosis for this admission?: Yes Plan: Normal blood pressure is in the 90s to low 100 systolic secondary to low cardiac output. He is presently on IV Dawson-Synephrine and dobutamine. (4) Cirrhosis Qualifiers: Hepatic cirrhosis type: alcoholic cirrhosis Is this a current diagnosis for this admission?: Yes Plan: He states he has not drank in some time, over 7 years. His daughter was in last night she states that is not true. She states he continues to drink and at times uses IV drugs. He takes no medications for cirrhosis (5) Community acquired pneumonia Qualifiers: Laterality: left Lung location: lower lobe of lung Qualified Code(s): J18.1 - Lobar pneumonia, unspecified organism Is this a current diagnosis for this admission?: Yes Plan: He has a normal white count no fever. He was treated with 10-day course of antibiotics he is unsure of what one prior to admission. He was restarted on oral Levaquin yesterday. (6) Tobacco abuse Is this a current diagnosis for this admission?: Yes Plan: Counseled. He is contemplating quitting smoking - Time Time Spent with patient: 35 or more minutes Total Critical Time (Minutes): 40 Medications reviewed and adjusted accordingly: Yes Anticipated discharge: Home with Homehealth - Inpatient Certification Based on my medical assessment, after consideration of the patient's comorbidities, presenting symptoms, or acuity I expect that the services needed warrant INPATIENT care.: Yes I certify that my determination is in accordance with my understanding of Medicare's requirements for reasonable and necessary INPATIENT services [42 CFR 412.3e].: Yes Medical Necessity: Significant Comorbidiites Make Outpatient Treatment Too Risky, Risk of Complication if Not Cared For in Hospital, Risk of Diagnosis Which Will Require Inpatient Eval/Care/Monitoring
[2019-01-09] MEDS: GUAIFENESIN/CODEINE PHOS 100-10 MG/ 5 ML UDC PO PRN (09:35)
[2019-01-09] MEDS: HYDROCODONE BIT/HOMATROPINE 5-1.5 MG TABLET PO PRN (09:36)
[2019-01-09] MEDS: METOPROLOL SUCCINATE 25 MG TAB.SR.24H PO SCH (09:36)
[2019-01-09] MEDS: POTASSIUM CHLORIDE 10 MEQ CAPSULE.ER PO SCH (09:36)
[2019-01-09] MEDS: ASPIRIN 81 MG TABLET, ENT COATED PO SCH (09:36)
[2019-01-09] MEDS: THIAMINE HCL 100 MG TABLET PO SCH (09:36)
[2019-01-09] MEDS: DOCUSATE SODIUM 100 MG CAPSULE PO SCH (09:36)
[2019-01-09] MEDS: LOSARTAN POTASSIUM 25 MG TABLET PO SCH (09:36)
[2019-01-09] MEDS: NITROGLYCERIN 5 MG (0.2 MG/HR) PATCH.TD24 TD SCH (09:37)
[2019-01-09] MEDS: FUROSEMIDE INJ/PF 20 MG/2 ML SDV IV SCH ×2 (09:37→21:46)
[2019-01-09] MEDS: MIDODRINE HCL 5 MG TABLET PO SCH ×3 (09:37→17:20)
[2019-01-09] MEDS: LIDOCAINE 5% (700 MG) TRANSDERMAL ADH..PATCH TP SCH (09:38)
[2019-01-09] MEDS: NICOTINE 14 MG/24 HR PATCH.TD24 TD SCH (09:38)
[2019-01-09] MEDS: NYSTATIN CREAM 15 GM TP SCH ×2 (09:38→17:20)
[2019-01-09] MEDS: FLUTICASONE NASAL SPRAY 50 MCG/SPRY 120 SPRAY/16 GM NASL SCH ×2 (09:39→21:45)
[2019-01-09] MEDS: LACTULOSE SYRUP 20 GM/30 ML UDCUP PR SCH (09:46)
[2019-01-09] MEDS ORDERED: LACTULOSE SYRUP 20 GM/30 ML UDCUP ONE (09:46)
[2019-01-09] MEDS: LACTULOSE SYRUP 20 GM/30 ML UDCUP PO SCH ×2 (09:54→17:20)
[2019-01-09] MEDS: BENZOCAINE/MENTHOL SORE THROAT LOZENGE BUCCAL PRN ×2 (09:58→19:50)
[2019-01-09] MEDS ORDERED: LIDOCAINE 5% (700 MG) TRANSDERMAL ADH..PATCH TP SCH (10:00)
[2019-01-09] MEDS ORDERED: MIDODRINE HCL 5 MG TABLET ONE (14:53)
[2019-01-09] MEDS: MORPHINE SULFATE 10 MG/ML INJ IV PRN ×2 (17:23→21:47)
[2019-01-09] MEDS ORDERED: LEVOFLOXACIN 750 MG/D5W RTU 750 MG/150 ML RTUPB IV SCH (18:00)
--- NOTE | 2019-01-09 22:59 | PDOC CONSULTATION ---
Consultation-Blank Consultation: CARDIOLOGY CONSULTATION by Dr. Lorenza Sandoval on 01/09/2017. Patient seen at 2 PM on 01/09/2019. Reason for consultation patient admitted with acute exacerbation of his COPD and acute on chronic systolic heart failure, with echo showing dilated cardiomyopathy with severely reduced LV ejection fraction. Consult requested by Dr. Kory Coe, hospitalist. HISTORY OF PRESENT ILLNESS: The patient initially was briefly seen on 01/08/2019, although the patient was stable at that time the patient was not able to give a good history history. Apparently patient is a 68-year-old male with known history of alcohol abuse, and tobacco abuse, history of cirrhosis of the liver, history of COPD, history of coronary artery disease with a history of past myocardial infarction admitted with progressively increasing shortness of breath with wheezing and cough productive of yellowish sputum. It seems to be that this is been going on for a few days, although the patient is not very helpful in telling us the exact date., And that the symptoms started. He also had PND orthopnea and mild leg edema. There was no chest pain or discomfort. He denied any palpitations or near syncope or syncope. There were no TIA CVA symptoms. The patient had an echocardiogram which showed severely reduced LV ejection fraction. The patient was treated and his condition deteriorated with increasing shortness of breath and he was transferred to the ICU in anticipation of being intubated. But the patient medically good turnaround with with the BiPAP being placed on him and with the diuretics. Also at the time since her blood pressure was on the lower side he was started on dobutamine and Dawson- Synephrine. At present the patient is off the BiPAP and is on nasal O2. Again he denies any chest pain or discomfort. He is shortness of breath is much improved. After he was transferred to the ICU he was made a DNR. PAST MEDICAL HISTORY: Is positive for COPD. He states about 13 years ago he had a double pneumonia and had a myocardial infarction. He states he did not have a cardiac catheterization. He has not followed up for this with any esthetician/spa coordinator. He also has a history of alcohol intake as per the records, although the patient states that he quit smoking or drinking many years ago. He does have a history of cirrhosis of the liver. He also has a history of hypertension and hyper lipidemia. He also has a prior history of morbid obesity, for which she had gastric bypass surgery. At present the patient appears malnourished and cachectic. There is no history of TIA CVA. Patient denies any chronic kidney disease. Past SURGICAL HISTORY: Is Positive for Gastric Bypass Surgery Remotely. ALLERGIES: The patient is allergic to azithromycin, ketorolac, and penicillins. SOCIAL HISTORY: The patient is a smoker, and does have a history of alcohol abuse. FAMILY HISTORY: Is positive for CAD, COPD and hypertension. DISPOSITION: He is a DNR now, and his daughter is his surrogate healthcare decision maker. REVIEW OF SYSTEMS HEAD: Denies headache or head injury. EYES: No history of amblyopia diplopia. No history of amaurosis fugax. EARS: No history of hearing loss. No tinnitus. NOSE: No history of nosebleeds. No nasal polyps. MOUTH: No altered taste sensation, and no bleeding from the gums. THROAT: No history of odynophagia or dysphagia. No history of recurrent sore throats. SKIN: No history of psoriasis. No history of pruritus. No history of yellowish discoloration of the skin. NECK: Denies neck pain or swelling in the neck. LUNGS: Patient with acute exacerbation of COPD. Chest x-ray also shows bibasilar small pneumonias. He has no history of sleep apnea. The patient is a smoker. There is no hemoptysis. He has a productive cough with yellowish sputum. The onset was about 2 days ago, although the patient is not very helpful in defining the exact timeframe. He has no history of sleep apnea. No history of pulmonary embolism. HEART: Remote history of [place]. No cardiac work- up. 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 His LV ejection fraction is severely reduced. He has symptoms of heart failure with with PND orthopnea leg edema., But no anginal symptoms. There is no syncope. His blood pressure is on the lower side due to most likely poor cardiac output. ENDOCRINE: Denies diabetes or thyroid disease. No polydipsia polyuria. No history of heat or cold intolerance. RENAL: Denies history of chronic kidney disease. No hematuria pyuria or dysuria. No symptoms a UTI. MUSCULOSKELETAL skeletal: Denies arthritis or collagen vascular disease. GI: History of cirrhosis present no history of jaundice. No history of fatty food intolerance. No history of GI bleed. No history of GERD or peptic ulcer disease. No altered bowel movements. Appetite is decreased. He does have some weight loss, although is not very helpful in telling exactly how much weight he is lost over a period of time. JOINER: No history of TIA CVA. No history of headaches migraines or seizures. PSYCHIATRIC: Patient has history of alcohol and tobacco dependency. There is no history of anxiety or depression. No history of suicidal ideation. VASCULAR: No history of calf or buttock claudication.. No history of DVT HEMATOLOGICAL: No history of bleeding diathesis or clotting disorders. Metabolic: No history of gout. Prior history of morbid obesity and the patient has lost weight and appears to be cachectic and chronically ill looking at present. He has a history of hyperlipidemia, and is on Zocor at home. PHYSICAL EXAMINATION: The patient appears to be chronically ill and cachectic. At present in no acute distress on nasal O2. Selected Entries 01/09/19 14:00 Temperature 97.7 F Temperature Core Source Pulse Rate 90 Respiratory 19 Rate Blood Pressure 95/54 L [Right Upper Arm] Blood Pressure 67 dilated left ventricle with severely reduced LV ejection fraction Mean [Right Upper Arm] Blood Pressure Supine Position [Right Upper Arm] O2 Sat by Pulse 95 Oximetry Oxygen Delivery Nasal Cannula Method ( includes room air) Oxygen Flow 2 Rate HEAD: Is atraumatic normocephalic. EYES: Pupils are equal round regular reactive to light accommodation. Extraocular movements are normal. There is no conjunctival pallor. There is no scleral icterus. EARS: Tympanic membranes are intact. External auditory canals are clear. NOSE: There is no deviated nasal septum. There is no inflammation of the nasal mucous membrane. MOUTH: Mucous noted in the mouth are moist tongue is moist. There is no ulcers. There is no bleeding from the gums. THROAT: There is no redness of the oropharynx. There is no exudates. SKIN: There is no skin rashes or skin lesions. There is no particular ecchymosis. NECK: Is supple. There is JVD present carotids are equal there is no bruits. There is no lymphadenopathy. There is no goiter. There is no accessory muscle respiration use. Trachea central LUNGS: There is diminished air entry and prolonged expiration. On percussion there is hyperresonance. He has scattered rhonchi and few end expiratory wheezing. He has dry crackles in both the bases along with fine but rales. Of CHF. HEART: S1-S2 is heard. S1 is of normal intensity. There is no S3 gallop. There is no S4 gallop. There is systolic murmur left sternal border and the apex there is no rub. ABDOMEN: Is obese. Nontender. There is no hepatosplenomegaly. Bowel sounds are well heard. There is no tender areas of masses. EXTREMITIES: Femorals are deep. Femorals are diminished. Leg pulses are diminished. There is mild bilateral pedal edema present. There is no DVT or cellulitis. There is no calf tenderness. There is no sinus or clubbing. Capillary refill is normal. JOINER: The patient is conscious awake alert oriented x3 with no focal deficits. PSYCHIATRIC: The patient judgment insight are intact her affect is normal. ECHOCARDIOGRAM: Shows a dilated left ventricle, with severely reduced LV ejection fraction. There is a small amount of pericardial effusion, without evidence of tamponade. There is at least moderate pulmonary hypertension. Please see report . EKG: Sinus tachycardia with APCs. There is minor nonspecific T changes anterolateral leads. Current Medications Generic Name Dose Route Start Last Admin Trade Name Freq PRN Reason Stop Dose Admin Acetaminophen 650 mg 01/06/19 00:14 Tylenol 325 Mg Tablet PO 02/05/19 00:13 Q4HP PRN pain or temp greater than 101F Al Hydrox/Mg Hydrox/Simethicone 30 ml 01/06/19 00:14 01/06/19 22:16 Maalox Plus Susp 30 Udcup PO 02/05/19 00:13 30 ml Q4HP PRN Administration HEARTBURN Albuterol/Ipratropium 3 ml 01/08/19 18:00 01/09/19 21:04 Duoneb 3 Ml Ampul NEB 02/07/19 17:59 3 ml RTQ4 RODNEY Administration Aspirin 81 mg 01/06/19 10:00 01/09/19 09:36 Ecotrin 81 Mg Ec Tablet PO 02/05/19 09:59 81 mg DAILY RODNEY Administration Docusate Sodium 100 mg 01/06/19 10:00 01/09/19 09:36 Colace 100 Mg Capsule PO 02/05/19 09:59 100 mg DAILY RODNEY Administration Fluticasone Propionate 2 spray 01/06/19 10:00 01/09/19 21:45 Flonase Nasal Bunnell 50 Mcg/Bunnell 16 Gm NASL 02/05/19 09:59 2 sprays Q12 RODNEY Administration Furosemide 40 mg 01/06/19 10:00 01/08/19 10:03 Lasix 40 Mg Tablet PO 02/05/19 09:59 40 mg DAILY RODNEY Administration Furosemide 20 mg 01/08/19 22:00 01/09/19 21:46 Lasix Inj/Pf 20 Mg/2 Ml Sdv IV 02/07/19 21:59 20 mg Q12 RODNEY Administration Guaifenesin/Codeine Phosphate 5 ml 01/07/19 10:26 01/09/19 09:35 Robitussin-Ac Liquid 5 Ml Udcup PO 02/06/19 10:25 5 ml QIDP PRN Administration COUGH Hydrocodone Bit/Homatropine Methylb 1 tab 01/07/19 17:45 01/09/19 09:36 Hycodan 5-1.5 Mg Tablet PO 02/06/19 17:44 1 tab Q4HP PRN Administration COUGH Levofloxacin/Dextrose 750 mg in 150 mls @ 100 mls/hr 01/09/19 18:00 01/09/19 17:21 Levaquin Rtu 750 Mg/D5w 150 Ml Premix IV 01/16/19 17:59 500 mg/hr QPM RODNEY 100 mls/hr Administration Dobutamine HCl/Dextrose 500 mg in 250 mls @ 0 mls/hr 01/08/19 20:21 01/08/19 20:26 Dobutrex Rtu 500 Mg-D5w 250 Ml Premixed Bag IV 02/07/19 20:20 2.5 mcg/kg/min CONTINUOUS PRN 6.44 mls/hr THIS MED IS NOT "PRN" Administration Protocol Titrate Norepinephrine Bitartrate 4 mg 250 mls @ 0 mls/hr 01/09/19 00:29 / Dextrose IV 02/08/19 00:28 CONTINUOUS PRN THIS MED IS NOT "PRN" Protocol Titrate Hard Fat/Phenylephrine 40 mg/ 250 mls @ 0 mls/hr 01/09/19 01:02 01/09/19 23:00 Dextrose IV 02/08/19 01:01 90 mcg/min CONTINUOUS PRN 33.75 mls/hr THIS MED IS NOT "PRN" Titration Protocol Titrate Lactulose 20 gm 01/09/19 10:00 01/09/19 17:20 Cephulac Syrup 20 Gm/30 Ml Udcup PO 02/08/19 09:59 20 gm BID RODNEY Administration Lidocaine 1 patch 01/08/19 12:30 01/09/19 09:38 Lidoderm 5% (700 Mg) Transdermal Patch TP 02/07/19 12:29 1 patch DAILY RODNEY Administration Losartan Potassium 25 mg 01/07/19 10:00 01/09/19 09:36 Cozaar 25 Mg Tablet PO 02/06/19 09:59 25 mg DAILY RODNEY Administration Magnesium Hydroxide 30 ml 01/06/19 00:14 01/09/19 09:35 Milk Of Magnesia 30 Ml Udcup PO 02/05/19 00:13 30 ml HSP PRN Administration FOR CONSTIPATION Methylprednisolone Sodium Succinate 40 mg 01/08/19 22:00 01/09/19 21:46 Solu-Medrol Inj/Pf 40 Mg/1 Ml Sdv IV 02/07/19 21:59 40 mg Q8 RODNEY Administration Metoprolol Succinate 25 mg 01/07/19 16:00 01/09/19 09:36 Toprol Xl 25 Mg Tab.Sr PO 02/06/19 15:59 25 mg DAILY RODNEY Administration Midodrine 10 mg 01/09/19 18:00 01/09/19 17:20 Proamatine 5 Mg Tablet PO 02/08/19 17:59 10 mg TID RODNEY Administration Morphine Sulfate 2 mg 01/07/19 17:31 01/09/19 21:47 Morphine 10 Mg/Ml Inj IV 01/14/19 17:30 2 mg Q4HP PRN Administration FOR PAIN SCALE 2-4 Nicotine 1 each 01/06/19 10:00 01/09/19 09:38 Nicoderm 14 Mg/24 Hr Transdermal Patch TD 02/05/19 09:59 1 each DAILY RODNEY Administration Nitroglycerin 1 each 01/06/19 10:00 01/09/19 09:37 Nitro-Dur 5 Mg (0.2 Mg/Hr) Transdermal Patch TD 02/05/19 09:59 1 each DAILY RODNEY Administration Nystatin 1 applic 01/06/19 18:00 01/09/19 17:20 Mycostatin Cream 15 Gm TP 01/13/19 17:59 1 applic BID RODNEY Administration Potassium Chloride 40 meq 01/07/19 10:00 01/09/19 09:36 Klor-Con 10 Meq Capsule Er PO 02/06/19 09:59 40 meq DAILY RODNEY Administration Sodium Chloride 2.5 ml 01/06/19 06:00 01/09/19 21:47 Saline Flush 2.5 Ml Monoject Prefil Syrin IV 02/05/19 05:59 2.5 ml Q8 RODNEY Administration Thiamine HCl 100 mg 01/06/19 10:00 01/09/19 09:36 Thiamine 100 Mg Tablet PO 02/05/19 09:59 100 mg DAILY RODNEY Administration Throat Lozenges 1 each 01/06/19 17:57 01/09/19 19:50 Chloraseptic Sore Throat Lozenge BUCCAL 02/05/19 17:56 1 each Q1HP PRN Administration FOR SORE THROAT AND COUGH Tramadol HCl 50 mg 01/06/19 14:30 01/06/19 22:17 Ultram 50 Mg Tablet PO 01/13/19 14:29 50 mg Q4HP PRN Administration PAIN Discontinued Medications Generic Name Dose Route Start Last Admin Trade Name Freq PRN Reason Stop Dose Admin Albuterol/Ipratropium Confirm 01/08/19 18:40 01/08/19 18:38 Duoneb 3 Ml Ampul Administered 01/08/19 18:41 3 ml Dose Administration 3 ml NEB .STK-MED ONE Aspirin 324 mg 01/06/19 02:30 01/06/19 03:04 Aspirin 81 Mg Chewable Tablet PO 01/06/19 02:31 324 mg NOW ONE Administration Chlorpheniramine Maleate 4 mg 01/06/19 06:00 Chlor-Trimeton 4 Mg Tablet PO 01/07/19 00:01 Q6 RODNEY Chlorpheniramine Maleate 4 mg 01/06/19 12:00 Chlor-Trimeton 4 Mg Tablet PO 01/07/19 06:01 Q6 RODNEY Chlorpheniramine Maleate 4 mg 01/06/19 08:00 01/06/19 23:17 Chlor-Trimeton 4 Mg Tablet PO 01/07/19 00:01 4 mg Q6 RODNEY Administration Clopidogrel Bisulfate 300 mg 01/06/19 02:30 01/06/19 03:04 Plavix 300 Mg Tablet PO 01/06/19 02:31 300 mg NOW ONE Administration Enoxaparin Sodium 80 mg 01/06/19 18:00 01/07/19 05:09 Lovenox Inj 80 Mg/0.8 Ml Disp.Syrin SUBCUT 02/05/19 17:59 80 mg Q12A RODNEY Administration Enoxaparin Sodium 80 mg 01/06/19 02:30 01/06/19 03:05 Lovenox Inj 80 Mg/0.8 Ml Disp.Syrin SUBCUT 01/06/19 02:31 80 mg NOW ONE Administration Furosemide 20 mg 01/05/19 22:13 01/05/19 22:47 Lasix Inj/Pf 20 Mg/2 Ml Sdv IV 01/05/19 22:14 20 mg NOW ONE Administration Furosemide 20 mg 01/06/19 00:16 01/06/19 02:44 Lasix Inj/Pf 20 Mg/2 Ml Sdv IV 01/06/19 00:17 Not Given NOW ONE Guaifenesin/Dextromethorphan 10 ml 01/06/19 15:36 01/06/19 18:05 Robitussin-Dm Syrup 10 Ml Udcup PO 02/05/19 15:35 10 ml QIDP PRN Administration COUGH Hard Fat/Phenylephrine Confirm 01/09/19 01:00 01/09/19 01:13 Dawson-Synephrine Inj/Pf 10 Mg/1 Ml Sdv Administered 01/09/19 01:01 Not Given Dose 10 mg .ROUTE .STK-MED ONE Heparin Sodium (Porcine) 5,000 unit 01/06/19 06:00 Heparin Inj 5,000 Units/Ml 1 Ml Syringe SUBCUT 02/05/19 05:59 Q8 RODNEY Levofloxacin/Dextrose 750 mg in 150 mls @ 100 mls/hr 01/08/19 19:00 01/09/19 00:17 Levaquin Rtu 750 Mg/D5w 150 Ml Premix IV 01/08/19 20:29 Infused NOW ONE Infusion Propofol Confirm 01/08/19 19:57 01/08/19 20:24 Diprivan Rtu 1000 Mg/100 Ml Inf.Bottle Administered 01/08/19 19:58 Not Given Dose 1,000 mg in 100 mls @ ud IV .STK-MED ONE Dobutamine HCl/Dextrose Confirm 01/08/19 20:13 01/08/19 21:56 Dobutrex Rtu 500 Mg-D5w 250 Ml Premixed Bag Administered 01/08/19 20:14 Not Given Dose 500 mg in 250 mls @ ud IV .STK-MED ONE Ketorolac Tromethamine 30 mg 01/07/19 18:00 01/07/19 18:20 Toradol Inj/Pf 30 Mg/1 Ml Sdv IV 01/07/19 18:01 Not Given NOW ONE Lactulose 200 gm 01/08/19 22:00 01/09/19 09:46 Cephulac Syrup 20 Gm/30 Ml Udcup RI 02/07/19 21:59 Not Given Q12 RODNEY Lactulose Confirm 01/08/19 22:54 01/08/19 23:09 Cephulac Syrup 20 Gm/30 Ml Udcup Administered 01/08/19 22:55 Not Given Dose 20 gm .ROUTE .STK-MED ONE Lactulose Confirm 01/09/19 09:46 01/09/19 09:54 Cephulac Syrup 20 Gm/30 Ml Udcup Administered 01/09/19 09:47 Not Given Dose 20 gm .ROUTE .STK-MED ONE Lidocaine 1 patch 01/09/19 10:00 Lidoderm 5% (700 Mg) Transdermal Patch TP 02/08/19 09:59 DAILY RODNEY Lidocaine HCl Confirm 01/09/19 04:24 01/09/19 05:14 Xylocaine 1% Inj-Pf (10 Mg/Ml) 30 Ml Sdv Administered 01/09/19 04:25 Not Given Dose 30 ml .ROUTE .STK-MED ONE Lorazepam 2 mg 01/06/19 02:04 01/08/19 17:47 Ativan Inj 2 Mg/1 Ml Vial IV 01/13/19 02:03 2 mg Q4HP PRN Administration ANXIETY/AGITATION Lorazepam Confirm 01/08/19 19:55 01/08/19 20:25 Ativan Inj 2 Mg/1 Ml Vial Administered 01/08/19 19:56 1 mg Dose Administration 2 mg .ROUTE .STK-MED ONE Methylprednisolone Sodium Succinate Confirm 01/08/19 18:09 01/08/19 18:24 Solu-Medrol Inj/Pf 125 Mg/2 Ml Sdv Administered 01/08/19 18:10 125 mg Dose Administration 125 mg .ROUTE .STK-MED ONE Metoprolol Tartrate 5 mg 01/06/19 00:44 01/06/19 00:55 Lopressor Inj/Pf 5 Mg/5 Ml Sdv IV 01/06/19 00:45 5 mg NOW ONE Administration Midodrine 5 mg 01/07/19 18:00 01/09/19 14:54 Proamatine 5 Mg Tablet PO 02/06/19 17:59 10 mg TID RODNEY Administration Midodrine Confirm 01/09/19 14:53 01/09/19 14:58 Proamatine 5 Mg Tablet Administered 01/09/19 14:54 Not Given Dose 5 mg .ROUTE .STK-MED ONE Ondansetron HCl 4 mg 01/06/19 01:53 01/06/19 03:03 Zofran Inj/Pf 4 Mg/2 Ml Sdv IV 01/06/19 01:54 4 mg NOW ONE Administration HOME MEDICATIONS Albuterol Sulfate [Proair HFA Inhalation Aerosol 8.5 gm MDI] 2 puff IH Q4HP PRN 01/06/19 Ammonium Lactate [Lac-Hydrin 12% Lotion 225Gm/Bottle] 1 applic TOP BIDP PRN 01/06/19 Budesonide/Formoterol Fumarate [Symbicort HFA 160-4.5 mcg Inhaler 6 gm] 2 puff IH Q12 01/06/19 Cyanocobalamin (Vitamin B-12) [Vitamin B-12 Inj 1000 Mcg/1 ml Vial] 1,000 mcg IM Q28D 01/06/19 Folic Acid [Folvite 1 mg Tablet] 1 mg PO QAM 01/06/19 Gabapentin [Neurontin 300 mg Capsule] 1,200 mg PO Q8 01/06/19 Ibuprofen [Motrin 800 mg Tablet] 800 mg PO Q8HP PRN 01/06/19 Ketoconazole 1 applic TOP TIDP PRN 01/06/19 Simvastatin [Zocor 40 mg Tablet] 20 mg PO QHS 01/06/19 Tramadol HCl [Ultram 50 mg Tablet] 100 mg PO TIDP PRN 01/06/19 Labs- Entire Visit 01/05/19 01/05/19 01/05/19 22:44 22:44 22:44 WBC 7.0 RBC 4.34 L Hgb 11.5 L Hct 34.6 L MCV 80 MCH 26.5 L MCHC 33.3 RDW 16.2 H Plt Count 192 Seg Neutrophils % 66.4 Lymphocytes % 20.2 Monocytes % 7.2 Eosinophils % 3.8 Basophils % 2.4 H Absolute Neutrophils 4.6 Absolute Lymphocytes 1.4 Absolute Monocytes 0.5 Absolute Eosinophils 0.3 Absolute Basophils 0.2 PT 14.8 INR 1.10 Carbonic Acid HCO3/H2CO3 Ratio ABG pH ABG pCO2 ABG pO2 ABG HCO3 ABG Total CO2 ABG O2 Saturation ABG Base Excess FiO2 Sodium 134.1 L Potassium 3.9 Chloride 100 Carbon Dioxide 25 Anion Gap 9 BUN 20 Creatinine 0.66 Est GFR ( Amer) > 60 Est GFR (Non-Af Amer) > 60 Glucose 103 Calcium 8.8 Magnesium Total Bilirubin 0.7 Direct Bilirubin 0.4 Neonat Total Bilirubin Not Reportable Neonat Direct Bilirubin Not Reportable Neonat Indirect Bili Not Reportable AST 115 H ALT 70 Alkaline Phosphatase 222 H Creatine Kinase CK-MB (CK-2) Troponin I NT-Pro-B Natriuret Pep Total Protein 7.2 Albumin 3.3 L Lipase TSH Urine Color Urine Appearance Urine pH Ur Specific [place] Urine Protein Urine Glucose (UA) Urine Ketones Urine Blood Urine Nitrite Urine Bilirubin Urine Urobilinogen Ur Leukocyte Esterase Urine WBC (Auto) Urine RBC (Auto) U Hyaline Cast (Auto) Squamous Epi Cells Auto Urine Mucus (Auto) Urine Ascorbic Acid 01/05/19 01/05/19 01/05/19 22:44 22:44 22:44 WBC RBC Hgb Hct MCV MCH MCHC RDW Plt Count Seg Neutrophils % Lymphocytes % Monocytes % Eosinophils % Basophils % Absolute Neutrophils Absolute Lymphocytes Absolute Monocytes Absolute Eosinophils Absolute Basophils PT INR Carbonic Acid HCO3/H2CO3 Ratio ABG pH ABG pCO2 ABG pO2 ABG HCO3 ABG Total CO2 ABG O2 Saturation ABG Base Excess FiO2 Sodium Potassium Chloride Carbon Dioxide Anion Gap BUN Creatinine Est GFR ( Amer) Est GFR (Non-Af Amer) Glucose Calcium Magnesium Total Bilirubin Direct Bilirubin Neonat Total Bilirubin Neonat Direct Bilirubin Neonat Indirect Bili AST ALT Alkaline Phosphatase Creatine Kinase CK-MB (CK-2) Troponin I 0.046 NT-Pro-B Natriuret Pep 4980 H Total Protein Albumin Lipase 49.8 TSH 2.14 Urine Color Urine Appearance Urine pH Ur Specific [place] Urine Protein Urine Glucose (UA) Urine Ketones Urine Blood Urine Nitrite Urine Bilirubin Urine Urobilinogen Ur Leukocyte Esterase Urine WBC (Auto) Urine RBC (Auto) U Hyaline Cast (Auto) Squamous Epi Cells Auto Urine Mucus (Auto) Urine Ascorbic Acid 01/06/19 01/06/19 01/06/19 03:00 04:00 04:00 WBC RBC Hgb Hct MCV MCH MCHC RDW Plt Count Seg Neutrophils % Lymphocytes % Monocytes % Eosinophils % Basophils % Absolute Neutrophils Absolute Lymphocytes Absolute Monocytes Absolute Eosinophils Absolute Basophils PT INR Carbonic Acid HCO3/H2CO3 Ratio ABG pH ABG pCO2 ABG pO2 ABG HCO3 ABG Total CO2 ABG O2 Saturation ABG Base Excess FiO2 Sodium 135.6 L Potassium 3.8 Chloride 102 Carbon Dioxide 27 Anion Gap 7 BUN 20 Creatinine 0.63 Est GFR ( Amer) > 60 Est GFR (Non-Af Amer) > 60 Glucose 98 Calcium 8.6 Magnesium Total Bilirubin Direct Bilirubin Neonat Total Bilirubin Neonat Direct Bilirubin Neonat Indirect Bili AST ALT Alkaline Phosphatase Creatine Kinase CK-MB (CK-2) Troponin I 0.046 NT-Pro-B Natriuret Pep Total Protein Albumin Lipase TSH Urine Color YELLOW Urine Appearance CLEAR Urine pH 5.0 Ur Specific [place] 1.019 Urine Protein NEGATIVE Urine Glucose (UA) NEGATIVE Urine Ketones NEGATIVE Urine Blood NEGATIVE Urine Nitrite NEGATIVE Urine Bilirubin NEGATIVE Urine Urobilinogen 2.0 H Ur Leukocyte Esterase NEGATIVE Urine WBC (Auto) 1 Urine RBC (Auto) 0 U Hyaline Cast (Auto) Squamous Epi Cells Auto 1 Urine Mucus (Auto) RARE Urine Ascorbic Acid NEGATIVE 01/07/19 01/07/19 01/07/19 07:26 07:26 07:26 WBC 6.1 RBC 4.44 Hgb 11.6 L Hct 35.2 L MCV 79 L MCH 26.2 L MCHC 33.0 RDW 16.0 H Plt Count 173 Seg Neutrophils % Lymphocytes % Monocytes % Eosinophils % Basophils % Absolute Neutrophils Absolute Lymphocytes Absolute Monocytes Absolute Eosinophils Absolute Basophils PT INR Carbonic Acid HCO3/H2CO3 Ratio ABG pH ABG pCO2 ABG pO2 ABG HCO3 ABG Total CO2 ABG O2 Saturation ABG Base Excess FiO2 Sodium 136.3 L Potassium 4.1 Chloride 97 L Carbon Dioxide 31 H Anion Gap 8 BUN 21 H Creatinine 0.69 Est GFR ( Amer) > 60 Est GFR (Non-Af Amer) > 60 Glucose 102 Calcium 7.9 L Magnesium Total Bilirubin Direct Bilirubin Neonat Total Bilirubin Neonat Direct Bilirubin Neonat Indirect Bili AST ALT Alkaline Phosphatase Creatine Kinase CK-MB (CK-2) Troponin I 0.051 NT-Pro-B Natriuret Pep Total Protein Albumin Lipase TSH Urine Color Urine Appearance Urine pH Ur Specific [place] Urine Protein Urine Glucose (UA) Urine Ketones Urine Blood Urine Nitrite Urine Bilirubin Urine Urobilinogen Ur Leukocyte Esterase Urine WBC (Auto) Urine RBC (Auto) U Hyaline Cast (Auto) Squamous Epi Cells Auto Urine Mucus (Auto) Urine Ascorbic Acid 01/07/19 01/08/19 01/08/19 17:42 18:19 20:00 WBC RBC Hgb Hct MCV MCH MCHC RDW Plt Count Seg Neutrophils % Lymphocytes % Monocytes % Eosinophils % Basophils % Absolute Neutrophils Absolute Lymphocytes Absolute Monocytes Absolute Eosinophils Absolute Basophils PT INR Carbonic Acid 1.46 H 1.07 HCO3/H2CO3 Ratio 20:1 19:1 ABG pH 7.40 7.39 ABG pCO2 48.5 H 35.5 ABG pO2 103.0 H 150.5 H ABG HCO3 29.6 H 21.1 ABG Total CO2 31.1 H 22.1 L ABG O2 Saturation 97.7 98.9 H ABG Base Excess 4.0 -3.3 FiO2 8L 15% Sodium Potassium Chloride Carbon Dioxide Anion Gap BUN Creatinine Est GFR ( Amer) Est GFR (Non-Af Amer) Glucose Calcium Magnesium Total Bilirubin Direct Bilirubin Neonat Total Bilirubin Neonat Direct Bilirubin Neonat Indirect Bili AST ALT Alkaline Phosphatase Creatine Kinase CK-MB (CK-2) Troponin I NT-Pro-B Natriuret Pep Total Protein Albumin Lipase TSH Urine Color STRAW Urine Appearance CLEAR Urine pH 5.0 Ur Specific [place] 1.009 Urine Protein NEGATIVE Urine Glucose (UA) NEGATIVE Urine Ketones NEGATIVE Urine Blood NEGATIVE Urine Nitrite NEGATIVE Urine Bilirubin NEGATIVE Urine Urobilinogen NEGATIVE Ur Leukocyte Esterase NEGATIVE Urine WBC (Auto) 1 Urine RBC (Auto) 0 U Hyaline Cast (Auto) 2 Squamous Epi Cells Auto Urine Mucus (Auto) RARE Urine Ascorbic Acid NEGATIVE 01/08/19 01/08/19 01/08/19 20:23 20:23 20:23 WBC RBC Hgb Hct MCV MCH MCHC RDW Plt Count Seg Neutrophils % Lymphocytes % Monocytes % Eosinophils % Basophils % Absolute Neutrophils Absolute Lymphocytes Absolute Monocytes Absolute Eosinophils Absolute Basophils PT INR Carbonic Acid HCO3/H2CO3 Ratio ABG pH ABG pCO2 ABG pO2 ABG HCO3 ABG Total CO2 ABG O2 Saturation ABG Base Excess FiO2 Sodium 133.8 L Potassium 5.4 H Chloride 95 L Carbon Dioxide 29 Anion Gap 10 BUN 28 H Creatinine 0.94 Est GFR ( Amer) > 60 Est GFR (Non-Af Amer) > 60 Glucose 132 H Calcium 8.2 L Magnesium 1.6 Total Bilirubin 0.8 Direct Bilirubin 0.5 H Neonat Total Bilirubin Not Reportable Neonat Direct Bilirubin Not Reportable Neonat Indirect Bili Not Reportable AST 167 H ALT 85 H Alkaline Phosphatase 230 H Creatine Kinase 38 L CK-MB (CK-2) Troponin I NT-Pro-B Natriuret Pep 6070 H Total Protein 7.6 Albumin 3.6 Lipase TSH Urine Color Urine Appearance Urine pH Ur Specific [place] Urine Protein Urine Glucose (UA) Urine Ketones Urine Blood Urine Nitrite Urine Bilirubin Urine Urobilinogen Ur Leukocyte Esterase Urine WBC (Auto) Urine RBC (Auto) U Hyaline Cast (Auto) Squamous Epi Cells Auto Urine Mucus (Auto) Urine Ascorbic Acid 01/08/19 01/09/19 20:23 05:14 WBC RBC Hgb Hct MCV MCH MCHC RDW Plt Count Seg Neutrophils % Lymphocytes % Monocytes % Eosinophils % Basophils % Absolute Neutrophils Absolute Lymphocytes Absolute Monocytes Absolute Eosinophils Absolute Basophils PT INR Carbonic Acid HCO3/H2CO3 Ratio ABG pH ABG pCO2 ABG pO2 ABG HCO3 ABG Total CO2 ABG O2 Saturation ABG Base Excess FiO2 Sodium 133.9 L Potassium 4.6 Chloride 94 L Carbon Dioxide 30 Anion Gap 10 BUN 27 H Creatinine 0.82 Est GFR ( Amer) > 60 Est GFR (Non-Af Amer) > 60 Glucose 173 H Calcium 8.0 L Magnesium Total Bilirubin Direct Bilirubin Neonat Total Bilirubin Neonat Direct Bilirubin Neonat Indirect Bili AST ALT Alkaline Phosphatase Creatine Kinase CK-MB (CK-2) 1.78 Troponin I 0.030 NT-Pro-B Natriuret Pep Total Protein Albumin Lipase TSH Urine Color Urine Appearance Urine pH Ur Specific [place] Urine Protein Urine Glucose (UA) Urine Ketones Urine Blood Urine Nitrite Urine Bilirubin Urine Urobilinogen Ur Leukocyte Esterase Urine WBC (Auto) Urine RBC (Auto) U Hyaline Cast (Auto) Squamous Epi Cells Auto Urine Mucus (Auto) Urine Ascorbic Acid Chest X-Ray 01/05/19 22:12 IMPRESSION: 1. Small bibasilar pneumonia, atelectasis, and/or effusion. 2. Mildly enlarged cardiac silhouette. Abdomen X-Ray 01/08/19 00:00 IMPRESSION: Nonobstructive bowel gas pattern. Large colonic stool load. Partially imaged polypoid pleural effusion. copyright 2010 [employer]- All Rights Reserved Chest X-Ray 01/08/19 00:00 IMPRESSION: No significant change in small bilateral pleural effusions and gross cardiomegaly. No new airspace opacity. Chest X-Ray 01/08/19 20:49 IMPRESSION: The tip of the central venous line is in the superior vena cava. Cardiomegaly with mild pulmonary vascular congestion. Left basilar pleural effusion and/or atelectasis and/or infiltrate. IMPRESSION/RECOMMENDATION: 1. Acute on chronic respiratory failure: This is a combination of acute exacerbation of COPD, pneumonia, bronchitis, and congestive heart failure. 2. Acute exacerbation of COPD.: Continue antibiotics continue respiratory treatments and oxygen. 3. Acute on chronic systolic heart failure: At present patient requiring inotropic support with dobutamine and Dawson-Synephrine. Will increase the patient's midodrine to 10 mg p.o. 3 times daily, and see if we can come down and wean off the pressors. Later we will start the patient on beta-sarina and MILAGRO inhibitor. 3. Coronary artery disease: History of myocardial infarction in the past: No evidence of anginal symptoms. No evidence of elevated troponin I at this admission. 4. Hypertension: At present blood pressure requiring inotropic support. 5. Pneumonia: Bibasilar: Continue antibiotics 6. History of cirrhosis of the liver: Secondary to chronic alcohol abuse. 7. History of alcohol abuse and tobacco abuse disorder. Ill effects of alcohol and tobacco have been discussed with the patient tobacco cessation counseling was done. This took about 4 minutes. 8. Hyperlipidemia: Continue statins. Medications reviewed. Medication including inotropes adjusted after discussion with the hospitalist attending physician on the case. The patient's medical management was discussed also with the hospitalist attending physician on the case. Medical decision making is of high complexity. 60 minutes spent on this patient, with more than 50% of time spent in direct patient care. Will follow
[2019-01-10] MEDS: BENZOCAINE/MENTHOL SORE THROAT LOZENGE BUCCAL PRN (02:21)
[2019-01-10] MEDS: IPRATROPIUM/ALBUTEROL 0.5-2.5 MG/3 ML AMPUL NEB SCH ×5 (04:12→20:59)
[2019-01-10 04:29] LABS: ABSOLUTE LYMPHOCYTES (AUTO) 0.4 10^3/uL (0.5-4.7); ABSOLUTE MONOCYTES (AUTO) 0.5 10^3/uL (0.1-1.4); ABSOLUTE NEUT (AUTO) 6.2 10^3/uL (1.7-8.2); BASOPHILS % (AUTO) 0.2 % (0-2); HEMATOCRIT 28.3 % (37.9-51.0); HEMOGLOBIN 9.6 g/dL (13.5-17.0); LYMPHOCYTES % (AUTO) 6.1 % (13-45); MEAN CORPUSCULAR HEMOGLOBIN 26.9 pg (27.0-33.4); MEAN CORPUSCULAR VOLUME 79 fl (80-97); MONOCYTES % (AUTO) 6.5 % (3-13); PLATELET COUNT 157 10^3/uL (150-450); RED BLOOD COUNT 3.59 10^6/uL (4.35-5.55); RED CELL DISTRIBUTION WIDTH 15.7 % (11.5-14.0); SEGMENTED NEUTROPHILS % (AUTO) 87.2 % (42-78); TOTAL CELLS COUNTED % (AUTO) 100 %; WHITE BLOOD COUNT 7.2 10^3/uL (4.0-10.5)
[2019-01-10 04:51] LABS: ALANINE AMINOTRANSFERASE 57 U/L (21-72); ALBUMIN 2.8 g/dL (3.5-5.0); ALKALINE PHOSPHATASE 170 U/L (38-126); ANION GAP 8 (5-19); ASPARTATE AMINO TRANSFERASE 58 U/L (17-59); BILIRUBIN,DIRECT 0.3 mg/dL (0.0-0.4); BILIRUBIN,TOTAL 0.3 mg/dL (0.2-1.3); BLOOD UREA NITROGEN 20 mg/dL (7-20); CALCIUM 8.4 mg/dL (8.4-10.2); CARBON DIOXIDE 32 mmol/L (22-30); CHLORIDE 95 mmol/L (98-107); GLUCOSE 163 mg/dL (75-110); SODIUM 135.4 mmol/L (137-145); TOTAL PROTEIN 6.2 g/dL (6.3-8.2)
[2019-01-10 04:55] LABS: POTASSIUM 4.9 mmol/L (3.6-5.0)
[2019-01-10] MEDS: MORPHINE SULFATE 10 MG/ML INJ IV PRN ×5 (04:56→22:42)
[2019-01-10] MEDS: METHYLPREDNISOLONE INJ 40 MG/1 ML SDV IV SCH ×3 (05:03→21:12)
[2019-01-10] MEDS: DOBUTAMINE HCL/D5W 500 MG/250 ML RTUINJ IV PRN (05:07)
[2019-01-10] MEDS ORDERED: (PENDING PHARMACY ID) (Ammonium Lactate 1 APPLIC) TOP PRN (07:49)
[2019-01-10] MEDS ORDERED: (PENDING PHARMACY ID) (Ketoconazole [Ketoconazole] 1 APPLIC) TOP PRN (07:49)
[2019-01-10] MEDS ORDERED: AMMONIUM LACTATE 12% LOTION 225GM BOTTLE TOP PRN (09:09)
[2019-01-10] MEDS: NYSTATIN CREAM 15 GM TP SCH ×2 (09:26→17:27)
[2019-01-10] MEDS: LACTULOSE SYRUP 20 GM/30 ML UDCUP PO SCH ×2 (09:26→17:27)
[2019-01-10] MEDS: FLUTICASONE NASAL SPRAY 50 MCG/SPRY 120 SPRAY/16 GM NASL SCH ×2 (09:27→21:11)
[2019-01-10] MEDS: FUROSEMIDE INJ/PF 20 MG/2 ML SDV IV SCH ×2 (09:27→21:11)
[2019-01-10] MEDS: POTASSIUM CHLORIDE 10 MEQ CAPSULE.ER PO SCH (09:28)
[2019-01-10] MEDS: ASPIRIN 81 MG TABLET, ENT COATED PO SCH (09:28)
[2019-01-10] MEDS: MIDODRINE HCL 5 MG TABLET PO SCH ×3 (09:28→17:27)
[2019-01-10] MEDS: DOCUSATE SODIUM 100 MG CAPSULE PO SCH (09:29)
[2019-01-10] MEDS: THIAMINE HCL 100 MG TABLET PO SCH (09:29)
[2019-01-10] MEDS: METOPROLOL SUCCINATE 25 MG TAB.SR.24H PO SCH (09:29)
[2019-01-10] MEDS: FOLIC ACID 1 MG TABLET PO SCH (09:29)
[2019-01-10] MEDS: NICOTINE 14 MG/24 HR PATCH.TD24 TD SCH (09:30)
[2019-01-10] MEDS: NITROGLYCERIN 5 MG (0.2 MG/HR) PATCH.TD24 TD SCH (09:30)
[2019-01-10] MEDS: LOSARTAN POTASSIUM 25 MG TABLET PO SCH (09:30)
[2019-01-10] MEDS: LIDOCAINE 5% (700 MG) TRANSDERMAL ADH..PATCH TP SCH (09:32)
[2019-01-10] MEDS: FLUTICASONE/VILANTEROL 200-25 MCG/DOSE IH SCH (09:37)
[2019-01-10] MEDS: SIMVASTATIN 40 MG TABLET PO SCH ×2 (09:37→21:07)
--- NOTE | 2019-01-10 10:59 | PDOC PROGRESS REPORT ---
Subjective Progress Note for:: 01/10/19 Subjective:: 01/11/2001 [id number] male admitted for acute on chronic respiratory failure secondary to acute on chronic diastolic heart failure, COPD, underlying pneumonia. Patient is still hypotensive presently on a minimal dose of dobutamine drip. Oriented communicating well. He has a good bowel movement this morning. He wants to be full code. No acute events in the last 24 hours. Afebrile. Pulse ox is 99% on room air. Reason For Visit: ACUTE ON CHRONIC DIASTOLIC HEART FAILURE Physical Exam Vital Signs: Temp Pulse Resp BP Pulse Ox 96.9 F L 101 H 22 H 113/69 98 01/10/19 08:00 01/10/19 10:00 01/10/19 10:00 01/10/19 10:00 01/10/19 09:10 Intake & Output 01/09/19 01/10/19 01/11/19 06:59 06:59 06:59 Intake Total 830 1657 Output Total 1999 3650 140 Balance -1170 -1992140 Weight 75.5 kg 77.6 kg General appearance: PRESENT: no acute distress Head exam: PRESENT: atraumatic Eye exam: PRESENT: PERRLA Mouth exam: PRESENT: moist, tongue midline Neck exam: PRESENT: JVD. ABSENT: carotid bruit, lymphadenopathy, thyromegaly Respiratory exam: PRESENT: decreased breath sounds Cardiovascular exam: PRESENT: RRR, systolic murmur. ABSENT: diastolic murmur, rubs GI/Abdominal exam: PRESENT: normal bowel sounds, soft. ABSENT: distended, guarding, mass, organolmegaly, rebound, tenderness Rectal exam: PRESENT: deferred Gentrourinary exam: PRESENT: indwelling catheter Extremities exam: PRESENT: full ROM. ABSENT: calf tenderness, clubbing, pedal edema Neurological exam: PRESENT: alert, awake, oriented to person, oriented to place, oriented to time, oriented to situation, CN II-XII grossly intact. ABSENT: motor sensory deficit Psychiatric exam: PRESENT: appropriate affect, normal mood. ABSENT: homicidal ideation, suicidal ideation Results Laboratory Results: 01/10/19 04:21 01/10/19 04:21 01/10/19 01/10/19 04:21 04:21 WBC 7.2 RBC 3.59 L Hgb 9.6 L Hct 28.3 L MCV 79 L MCH 26.9 L MCHC 34.0 RDW 15.7 H Plt Count 157 Seg Neutrophils % 87.2 H Lymphocytes % 6.1 L Monocytes % 6.5 Eosinophils % 0.0 Basophils % 0.2 Absolute Neutrophils 6.2 Absolute Lymphocytes 0.4 L Absolute Monocytes 0.5 Absolute Eosinophils 0.0 Absolute Basophils 0.0 Sodium 135.4 L Potassium 4.9 Chloride 95 L Carbon Dioxide 32 H Anion Gap 8 BUN 20 Creatinine 0.85 Est GFR ( Amer) > 60 Est GFR (Non-Af Amer) > 60 Glucose 163 H Calcium 8.4 Magnesium 2.0 Total Bilirubin 0.3 AST 58 ALT 57 Alkaline Phosphatase 170 H Total Protein 6.2 L Albumin 2.8 L 01/08/19 12:11 Sputum Gram Stain - Final 01/08/19 12:11 Sputum Sputum Culture - Final Escherichia Coli Klebsiella Pneumoniae Yeast, Not Brittany Albicans Greatly Reduced Normal Sharita 01/05/19 01/06/19 01/07/19 22:44 04:00 07:26 Creatine Kinase CK-MB (CK-2) Troponin I 0.046 0.046 0.051 NT-Pro-B Natriuret Pep 4980 H 01/08/19 01/08/19 01/08/19 20:23 20:23 20:23 Creatine Kinase 38 L CK-MB (CK-2) 1.78 Troponin I 0.030 NT-Pro-B Natriuret Pep 6070 H Impressions: Abdomen X-Ray 01/08/19 00:00 IMPRESSION: Nonobstructive bowel gas pattern. Large colonic stool load. Partially imaged polypoid pleural effusion. copyright 2010 [employer]- All Rights Reserved Chest X-Ray 01/08/19 20:49 IMPRESSION: The tip of the central venous line is in the superior vena cava. Cardiomegaly with mild pulmonary vascular congestion. Left basilar pleural effusion and/or atelectasis and/or infiltrate. copyright 2010 [employer]- All Rights Reserved Assessment and Plan - Diagnosis (1) Acute and chronic respiratory failure Is this a current diagnosis for this admission?: Yes Plan: 01/10/2019-patient was admitted for acute on chronic respiratory failure secondary to COPD exacerbation, pneumonia, acute on chronic diastolic heart failure. He is diuresing well. BNP is around 6000. Presently on a small dose of dobutamine for hypotension. Alert and awake communicating well. Sputum cultures came back positive for E. coli and Pseudomonas pulse oxes 99% on room air. Given IV levo floxacillin request shows the pharmacist to recommend antibiotic coverage. (2) Acute on chronic systolic heart failure, NYHA class 3 Is this a current diagnosis for this admission?: Yes Plan: Is on low-dose beta-sarina, MILAGRO and diuretics. Cardiology is following. He was started on IV dobutamine last evening by Dr. Sandoval. He is on IV Dawson- Synephrine for blood pressure support. 01/10/2019-patient is admitted with acute on chronic systolic heart failure. Presently on IV dobutamine. Off Dawson-Synephrine. Presently on Midodrin 10 mg p.o. 3 times daily. Plan to start on beta-blockers MILAGRO inhibitors once blood pressures have stabilized. To repeat the labs and BNP tomorrow. (3) Hypotension Is this a current diagnosis for this admission?: Yes Plan: Normal blood pressure is in the 90s to low 100 systolic secondary to low cardiac output. He is presently on IV Dawson-Synephrine and dobutamine. 01/10/2019-patient blood pressure still around 104/61. Minimal dose of dobutamine. Still requiring inotropic support. (4) Pneumonia Is this a current diagnosis for this admission?: Yes Plan: Start Levaquin. Send for sputum culture. Continue breathing treatments. 01/10/2019-patient is presently on IV levofloxacin sputum cultures came back positive for E. coli and Klebsiella. Requested pharmacist input and adjusting the antibiotic therapy. (5) Cirrhosis Qualifiers: Hepatic cirrhosis type: alcoholic cirrhosis Is this a current diagnosis for this admission?: Yes Plan: He states he has not drank in some time, over 7 years. His daughter was in last night she states that is not true. She states he continues to drink and at times uses IV drugs. He takes no medications for cirrhosis 01/10/2019-patient said he could drinking more than 12 years ago. He had history of cirrhosis of the liver secondary to alcohol use. (6) Tobacco abuse Is this a current diagnosis for this admission?: Yes Plan: Counseled. He is contemplating quitting smoking 01/10/2019-patient is a chronic smoker smoking history of more than 40 years. Patient is already on a nicotine patch. Smoking counseling was provided for more than 20 minutes. - Time Time Spent with patient: 25-34 minutes Smoking Cessation Education: over 10 minutes Medications reviewed and adjusted accordingly: Yes Anticipated discharge: Home
[2019-01-10] MEDS ORDERED: CEFEPIME 2 GM/D5W RTU 2 GM/50 ML RTUPB IV SCH (11:30)
[2019-01-10] MEDS: GABAPENTIN 300 MG CAPSULE PO SCH ×2 (14:30→21:12)
[2019-01-10] MEDS: CEFEPIME HCL 2 GM in DEXTROSE 5%-WATER 50 ML IV SCH ×2 (17:27→21:07)
--- NOTE | 2019-01-10 20:57 | Progress Note ---
Provider Note Provider Note: CARDIOLOGY PROGRESS NOTE by Dr. Lorenza Sandoval on 01/10/2019. SUBJECTIVE: The patient states his shortness of breath is much improved. He still has a has some cough productive of yellowish sputum. He denies any chest pain or discomfort. He has orthopnea, but no PND or leg edema. There is no atrial or ventricular arrhythmia seen on the monitor. There is no TIA CVA symptoms. There is no symptoms or signs of alcohol withdrawal. The patient is off the Dawson-Synephrine and his blood pressure is like 103 systolic. Physical EXAMINATION: The patient appears to be chronically ill and of appears to be a frail build. At present in no acute distress. Selected Entries 01/10/19 16:00 Temperature 97.8 F Temperature Axillary Source Pulse Rate 91 Respiratory 14 Rate Blood Pressure 103/65 [Right Upper Arm] Blood Pressure 77 Mean [Right Upper Arm] Blood Pressure Supine Position [Right Upper Arm] O2 Sat by Pulse 98 Oximetry Oxygen Delivery Nasal Cannula Method ( includes room air) Oxygen Flow 1 Rate HEAD: Is atraumatic normocephalic. EYES: Pupils are equal round regular reactive to light accommodation. Extraocular movements are normal. There is no conjunctival pallor. There is no scleral icterus. EARS: Tympanic membranes are intact. External auditory canals are clear. NOSE: There is no deviated nasal septum. There is no inflammation of the nasal mucous membrane. MOUTH: Mucous noted in the mouth are moist tongue is moist. There is no ulcers. There is no bleeding from the gums. THROAT: There is no redness of the oropharynx. There is no exudates. SKIN: There is no skin rashes or skin lesions. There is no par ticular ecchymosis. NECK: Is supple. There is JVD present carotids are equal there is no bruits. There is no lymphadenopathy. There is no goiter. There is no accessory muscle respiration use. Trachea central LUNGS: There is prolonged expiration. On percussion there is hyperresonance. Breath sounds are harsh he has scattered rhonchi, and today there is no wheezing. There are few crackles i n the both bases due to his pneumonia. There is no rales of CHF.. HEART: S1- S2 is heard. S1 is of normal intensity. There is no S3 gallop. There is no S4 gallop. There is systolic murmur left sternal border and the apex there is no rub. ABDOMEN: Is obese. Nontender. There is no hepatosplenomegaly. Bowel sounds are well heard. There is no tender areas of masses. EXTREMITIES: Femorals are deep. Femorals are diminished. Leg pulses are diminished. There is mild bilateral pedal edema present. There is no DVT or cellulitis. There is no calf tenderness. There is no sinus or clubbing. Capillary refill is normal. [employer]: The patient is conscious awake alert oriented x3 with no focal deficits. PSYCHIATRIC: The patient judgment insight are intact her affect is normal. 01/10/19 01/10/19 04:21 04:21 WBC 7.2 RBC 3.59 L Hgb 9.6 L Hct 28.3 L MCV 79 L MCH 26.9 L MCHC 34.0 RDW 15.7 H Plt Count 157 Seg Neutrophils % 87.2 H Lymphocytes % 6.1 L Sodium 135.4 L Potassium 4.9 Chloride 95 L Carbon Dioxide 32 H Anion Gap 8 BUN 20 Creatinine 0.85 Est GFR (Non-Af Amer) > 60 Glucose 163 H Calcium 8.4 Magnesium 2.0 Total Bilirubin 0.3 Direct Bilirubin 0.3 Neonat Total Bilirubin Not Reportable Neonat Direct Bilirubin Not Reportable Neonat Indirect Bili Not Reportable AST 58 ALT 57 Alkaline Phosphatase 170 H Total Protein 6.2 L Albumin 2.8 L Patient's 24-hour intake is 1657 mL. His output is 3650 mL. IMPRESSION/RECOMMENDATION: 1. Acute on chronic respiratory failure: This is a combination of acute exacerbation of COPD, pneumonia, bronchitis, and congestive heart failure. This is improving 2. Acute exacerbation of COPD.: Continue antibiotics continue respiratory treatments and oxygen. There is some improvement. 3. Acute on chronic systolic heart failure: At present the patient is off Dawson- Synephrine. He is on Midrin 10 mg p.o. 3 times daily. This is brought the blood pressure up a little. WILL discontinue the patient's dobutamine, and this definitely will bring the patient's blood pressure up. Continue the patient's beta-sarina and ARB.. 3. Coronary artery disease: History of myocardial infarction in the past: No evidence of anginal symptoms. No evidence of elevated troponin I at this admission. 4. Hypertension: At present blood pressure requiring inotropic support. 5. Pneumonia: Bibasilar: Continue antibiotics 6. History of cirrhosis of the liver: Secondary to chronic alcohol abuse. 7. History of alcohol abuse and tobacco abuse disorder. Ill effects of alcohol and tobacco have been discussed with the patient tobacco cessation counseling was done. This took about 4 minutes. 8. Hyperlipidemia: Continue statins. MEDICATIONS reviewed. Medications adjusted including stopping his inotropes. Medical decision making is of high complexity. 40 minutes spent on this patient more than 50% of time spent in direct patient care. Discussed the case with the hospitalist Dr. Salinas, who is that infusion on the case. Will follow The patient is states that he wants to become a full code and wants the DNR order rescinded. The patient is awake alert oriented x3 and is made an informed decision. Hence we will honor the patient's wishes and make him a full code. Orders written for this.
[2019-01-11] MEDS: IPRATROPIUM/ALBUTEROL 0.5-2.5 MG/3 ML AMPUL NEB SCH ×6 (00:32→21:55)
[2019-01-11] MEDS: MORPHINE SULFATE 10 MG/ML INJ IV PRN ×2 (02:42→06:42)
[2019-01-11] MEDS: GABAPENTIN 300 MG CAPSULE PO SCH ×3 (05:07→21:18)
[2019-01-11] MEDS: METHYLPREDNISOLONE INJ 40 MG/1 ML SDV IV SCH (05:09)
[2019-01-11 05:38] LABS: ABSOLUTE LYMPHOCYTES (AUTO) 0.6 10^3/uL (0.5-4.7); ABSOLUTE MONOCYTES (AUTO) 0.8 10^3/uL (0.1-1.4); ABSOLUTE NEUT (AUTO) 8.8 10^3/uL (1.7-8.2); BASOPHILS % (AUTO) 0.1 % (0-2); HEMATOCRIT 30.8 % (37.9-51.0); LYMPHOCYTES % (AUTO) 6.3 % (13-45); MEAN CORPUSCULAR HEMOGLOBIN 25.9 pg (27.0-33.4); MEAN CORPUSCULAR HGB CONC 32.3 g/dL (32.0-36.0); MEAN CORPUSCULAR VOLUME 80 fl (80-97); MONOCYTES % (AUTO) 7.6 % (3-13); PLATELET COUNT 175 10^3/uL (150-450); RED BLOOD COUNT 3.84 10^6/uL (4.35-5.55); RED CELL DISTRIBUTION WIDTH 16.2 % (11.5-14.0); TOTAL CELLS COUNTED % (AUTO) 100 %; WHITE BLOOD COUNT 10.3 10^3/uL (4.0-10.5)
[2019-01-11 06:16] LABS: ALANINE AMINOTRANSFERASE 41 U/L (21-72); ALKALINE PHOSPHATASE 161 U/L (38-126); ANION GAP 10 (5-19); ASPARTATE AMINO TRANSFERASE 33 U/L (17-59); BILIRUBIN,DIRECT 0.3 mg/dL (0.0-0.4); BILIRUBIN,TOTAL 0.4 mg/dL (0.2-1.3); BLOOD UREA NITROGEN 23 mg/dL (7-20); CALCIUM 8.5 mg/dL (8.4-10.2); CARBON DIOXIDE 31 mmol/L (22-30); CHLORIDE 95 mmol/L (98-107); GLUCOSE 203 mg/dL (75-110); POTASSIUM 4.8 mmol/L (3.6-5.0); SODIUM 135.9 mmol/L (137-145); TOTAL PROTEIN 6.3 g/dL (6.3-8.2)
--- NOTE | 2019-01-11 09:14 | PDOC PROGRESS REPORT ---
Subjective Progress Note for:: 01/11/19 Subjective:: 01/11/2001 [id number] male admitted for acute on chronic respiratory failure secondary to acute on chronic diastolic heart failure, COPD, underlying pneumonia. Patient is still hypotensive presently on a minimal dose of dobutamine drip. Oriented communicating well. He has a good bowel movement this morning. He wants to be full code. No acute events in the last 24 hours. Afebrile. Pulse ox is 99% on room air. 01/11/[id number] male admitted for acute on chronic respiratory failure most likely secondary to acute on chronic diastolic heart failure, COPD, pneumonia. He is off the inotropes. Blood pressure now is 105/65 asymptomatic. Afebrile. Pulse ox is 97% on 1 L. He is stable to go to [facility] in my opinion. Reason For Visit: ACUTE ON CHRONIC DIASTOLIC HEART FAILURE Physical Exam Vital Signs: Temp Pulse Resp BP Pulse Ox 98.2 F 94 15 105/65 99 01/11/19 08:00 01/11/19 08:00 01/11/19 08:00 01/11/19 08:00 01/11/19 08:12 Intake & Output 01/10/19 01/11/19 01/12/19 06:59 06:59 06:59 Intake Total 1657 609 50 Output Total 2986 1685 145 [facility] -1993 -1076 -95 Weight 77.6 kg 75.5 kg General appearance: PRESENT: no acute distress Head exam: PRESENT: atraumatic Eye exam: PRESENT: PERRLA Mouth exam: PRESENT: moist, tongue midline Neck exam: ABSENT: carotid bruit, JVD, lymphadenopathy, thyromegaly Respiratory exam: PRESENT: decreased breath sounds Cardiovascular exam: PRESENT: tachycardia GI/Abdominal exam: PRESENT: normal bowel sounds, soft. ABSENT: distended, guarding, mass, organolmegaly, rebound, tenderness Rectal exam: PRESENT: deferred Gentrourinary exam: PRESENT: indwelling catheter Neurological exam: PRESENT: alert, awake, oriented to person, oriented to place, oriented to time, oriented to situation, CN II-XII grossly intact. ABSENT: motor sensory deficit Psychiatric exam: PRESENT: appropriate affect, normal mood. ABSENT: homicidal ideation, suicidal ideation Results Laboratory Results: 01/11/19 05:17 01/11/19 05:17 01/10/19 01/11/19 01/11/19 11:00 05:17 05:17 WBC 10.3 RBC 3.84 L Hgb 10.0 L Hct 30.8 L MCV 80 MCH 25.9 L MCHC 32.3 RDW 16.2 H Plt Count 175 Seg Neutrophils % 86.0 H Lymphocytes % 6.3 L Monocytes % 7.6 Eosinophils % 0.0 Basophils % 0.1 Absolute Neutrophils 8.8 H Absolute Lymphocytes 0.6 Absolute Monocytes 0.8 Absolute Eosinophils 0.0 Absolute Basophils 0.0 Sodium 135.9 L Potassium 4.8 Chloride 95 L Carbon Dioxide 31 H Anion Gap 10 BUN 23 H Creatinine 0.84 Est GFR ( Amer) > 60 Est GFR (Non-Af Amer) > 60 Glucose 203 H Calcium 8.5 Magnesium 2.1 Total Bilirubin 0.4 AST 33 ALT 41 Alkaline Phosphatase 161 H Ammonia < 8.7 L Total Protein 6.3 Albumin 3.0 L 01/08/19 12:11 Sputum Gram Stain - Final 01/08/19 12:11 Sputum Sputum Culture - Final Escherichia Coli Klebsiella Pneumoniae Yeast, Not Brittany Albicans Greatly Reduced Normal Sharita 01/05/19 01/06/19 01/07/19 22:44 04:00 07:26 Creatine Kinase CK-MB (CK-2) Troponin I 0.046 0.046 0.051 NT-Pro-B Natriuret Pep 4980 H 01/08/19 01/08/19 01/08/19 20:23 20:23 20:23 Creatine Kinase 38 L CK-MB (CK-2) 1.78 Troponin I 0.030 NT-Pro-B Natriuret Pep 6070 H 01/11/19 05:17 Creatine Kinase CK-MB (CK-2) Troponin I NT-Pro-B Natriuret Pep 6150 H Impressions: Abdomen X-Ray 01/08/19 00:00 IMPRESSION: Nonobstructive bowel gas pattern. Large colonic stool load. Partially imaged polypoid pleural effusion. copyright 2010 [employer]- All Rights Reserved Chest X-Ray 01/08/19 20:49 IMPRESSION: The tip of the central venous line is in the superior vena cava. Cardiomegaly with mild pulmonary vascular congestion. Left basilar pleural effusion and/or atelectasis and/or infiltrate. copyright 2010 [employer]- All Rights Reserved Assessment and Plan - Diagnosis (1) Acute and chronic respiratory failure Is this a current diagnosis for this admission?: Yes Plan: 01/10/2019-patient was admitted for acute on chronic respiratory failure secondary to COPD exacerbation, pneumonia, acute on chronic diastolic heart failure. He is diuresing well. BNP is around 6000. Presently on a small dose of dobutamine for hypotension. Alert and awake communicating well. Sputum cultures came back positive for E. coli and klebsiella pulse oxes 99% on room air. Given IV levo floxacillin request shows the pharmacist to recommend antibiotic coverage. 01/11/2019-patient was admitted with acute on chronic respiratory failure secondary to COPD exacerbation, pneumonia, acute on chronic diastolic heart failure. He is doing well. His BNP is 6150 today. He is off the inotropes. Plan is to restart him on diuretics. On examination chest bilateral toes decreased no wheezing no crepitations present. Pulse ox is 97% on 1 L. Patient is stable to go to [facility]MCU. Sputum cultures came back positive for E. coli and Klebsiella. Patient is presently on IV cefepime. (2) Acute on chronic systolic heart failure, NYHA class 3 Is this a current diagnosis for this admission?: Yes Plan: Is on low-dose beta-sarina, MILAGRO and diuretics. Cardiology is following. He was started on IV dobutamine last evening by Dr. Sandoval. He is on IV Dawson- Synephrine for blood pressure support. 01/10/2019-patient is admitted with acute on chronic systolic heart failure. Presently on IV dobutamine. Off Dawson-Synephrine. Presently on Midodrin 10 mg p.o. 3 times daily. Plan to start on beta-blockers MILAGRO inhibitors once blood pressures have stabilized. To repeat the labs and BNP tomorrow. 01/11/2019-patient was admitted with acute on chronic systolic heart failure. He is off Dawson-Synephrine off IV dobutamine. Blood pressure this morning is 105/65. Presently on Midodrin 10 mg p.o. 3 times daily. Plan to start him on MILAGRO inhibitor yesterday. If the blood pressures are further improved plan is to add beta-blockers. (3) Hypotension Is this a current diagnosis for this admission?: Yes Plan: Normal blood pressure is in the 90s to low 100 systolic secondary to low cardiac output. He is presently on IV Dawson-Synephrine and dobutamine. 01/10/2019-patient blood pressure still around 104/61. Minimal dose of dobutamin e. Still requiring inotropic support. 01/11/2019-hypotension was resolved. Off inotropes. Hypotension may be secondary to sepsis due to pneumonia. Blood pressure this morning is 105/65 patient is asymptomatic. (4) Pneumonia Is this a current diagnosis for this admission?: Yes Plan: Start Levaquin. Send for sputum culture. Continue breathing treatments. 01/10/2019-patient is presently on IV levofloxacin sputum cultures came back positive for E. coli and Klebsiella. Requested pharmacist input and adjusting the antibiotic therapy. 01/11/2019-patient might have a community-acquired pneumonia. Most likely gram- negative organisms responsible constitution party. Sputum culture positive for E. coli and Klebsiella pneumonia. Presently on IV cefepime. Afebrile. (5) Cirrhosis Qualifiers: Hepatic cirrhosis type: alcoholic cirrhosis Is this a current diagnosis for this admission?: Yes (6) Tobacco abuse Is this a current diagnosis for this admission?: Yes - Time Time Spent with patient: 35 or more minutes Smoking Cessation Education: over 10 minutes Medications reviewed and adjusted accordingly: Yes Anticipated discharge: Home
[2019-01-11] MEDS: NITROGLYCERIN 5 MG (0.2 MG/HR) PATCH.TD24 TD SCH (09:28)
[2019-01-11] MEDS: NICOTINE 14 MG/24 HR PATCH.TD24 TD SCH (09:29)
[2019-01-11] MEDS: LIDOCAINE 5% (700 MG) TRANSDERMAL ADH..PATCH TP SCH (09:29)
[2019-01-11] MEDS: FLUTICASONE/VILANTEROL 200-25 MCG/DOSE IH SCH (09:30)
[2019-01-11] MEDS: FLUTICASONE NASAL SPRAY 50 MCG/SPRY 120 SPRAY/16 GM NASL SCH ×2 (09:31→21:17)
[2019-01-11] MEDS: LACTULOSE SYRUP 20 GM/30 ML UDCUP PO SCH (09:32)
[2019-01-11] MEDS: POTASSIUM CHLORIDE 10 MEQ CAPSULE.ER PO SCH (09:34)
[2019-01-11] MEDS: ASPIRIN 81 MG TABLET, ENT COATED PO SCH (09:35)
[2019-01-11] MEDS: MIDODRINE HCL 5 MG TABLET PO SCH ×4 (09:35→17:45)
[2019-01-11] MEDS: DOCUSATE SODIUM 100 MG CAPSULE PO SCH (09:35)
[2019-01-11] MEDS: FOLIC ACID 1 MG TABLET PO SCH (09:36)
[2019-01-11] MEDS: LOSARTAN POTASSIUM 25 MG TABLET PO SCH (09:37)
[2019-01-11] MEDS: THIAMINE HCL 100 MG TABLET PO SCH (09:37)
[2019-01-11] MEDS: METOPROLOL SUCCINATE 25 MG TAB.SR.24H PO SCH (09:38)
[2019-01-11] MEDS ORDERED: LISINOPRIL 5 MG TABLET PO SCH (10:00)
[2019-01-11] MEDS: NYSTATIN CREAM 15 GM TP SCH ×2 (10:04→17:41)
[2019-01-11] MEDS: CEFEPIME HCL 2 GM in DEXTROSE 5%-WATER 50 ML IV SCH ×2 (10:04→21:17)
[2019-01-11] MEDS: ONDANSETRON HCL INJ/PF 4 MG/2 ML SDV IV PRN ×2 (16:29→22:30)
[2019-01-11] MEDS: OXYCODONE-ACETAMINOPHEN 5-325 MG TABLET PO PRN ×2 (16:38→22:52)
--- NOTE | 2019-01-11 19:03 | RADIOLOGY REPORT (SQ) ---
EXAM DESCRIPTION: CT ABD/PELVIS NO ORAL OR IV COMPLETED DATE/TIME: 01/11/2019 6:18 pm REASON FOR STUDY: nausea and vomitings COMPARISON: None. TECHNIQUE: CT scan of the abdomen and pelvis performed without intravenous or oral contrast. Images reviewed with lung, soft tissue, and bone windows. Reconstructed coronal and sagittal MPR images revi ewed. All images stored on PACS. All CT scanners at this facility use dose modulation, iterative reconstruction, and/or weight based d osing when appropriate to reduce radiation dose to as low as reasonably achievable (ALARA). [facility]: Dose Right [facility]: CareDose [facility]: Dose Right [facility]: Teradose 4D [facility]: [employer] RADIATION DOSE: CT Rad equipment meets quality standard of care and radiation dose reduction techniq ues were employed. CTDIvol: 10.1 mGy. DLP: 620 mGy-cm.mGy. LIMITATIONS: None. FINDINGS: LOWER CHEST: There are moderate bilateral pleural effusions and basilar atelectasis or pne umonia. There is a small pericardial effusion. NON-CONTRASTED LIVER, SPLEEN, ADRENALS: The liver is slightly nodular in contour consistent with cirr hosis. Spleen and adrenals are unremarkable. PANCREAS: No masses. No peripancreatic inflammatory changes. GALLBLADDER: Surgically absent. RIGHT KIDNEY AND URETER: Multiple right renal cysts. No significant calcifications. No hydronephr osis or hydroureter. LEFT KIDNEY AND URETER: Simple cortical cyst. No suspicious findings. No significant calcification s. No hydronephrosis or hydroureter. AORTA AND RETROPERITONEUM: No aneurysm. No retroperitoneal masses or adenopathy. BOWEL AND PERITONEAL CAVITY: There is large amount of stool throughout the colon. No evidence of mec hanical obstruction. There is gastric distention. There is large amount of food material within the stomach. APPENDIX: Not visualized. PELVIS, BLADDER, AND ABDOMINAL WALL:No abnormal masses. No free fluid. Bladder normal. BONES: No significant findings. OTHER: No other significant finding. IMPRESSION: Constipation. Mild gastric distention which is filled with food debris. Bilateral pleural effusions and basilar airspace disease right greater than left. COMMENT: Quality ID # [id number]: Final reports with documentation of one or more dose reduction techniques (e.g., Automated exposure control, adjustment of the mA and/or kV according to patient size, use of iterative reconstruction technique) TECHNICAL DOCUMENTATION: JOB ID: [id number] [employer]- All Rights Reserved Reading location - IP/workstation name: [email or web address]
[2019-01-11 19:51] LABS: APPEARANCE,URINE SLIGHTLY-CLOUDY; BILIRUBIN,URINE NEGATIVE (NEGATIVE); COLOR,URINE YELLOW; GLUCOSE, URINE NEGATIVE (NEGATIVE); KETONES,URINE NEGATIVE (NEGATIVE); LEUKOCYTE ESTERASE,URINE TRACE (NEGATIVE); NITRITE,URINE NEGATIVE (NEGATIVE); PROTEIN,URINE NEGATIVE (NEGATIVE); URINE SPECIFIC GRAVITY 1.021; UROBILINOGEN,URINE NEGATIVE mg/dL (<2.0)
[2019-01-11 20:47] LABS: CREATINE KINASE MB 1.65 ng/mL (<4.55); TROPONIN I 0.024 ng/mL
[2019-01-11] MEDS: SIMVASTATIN 40 MG TABLET PO SCH (21:17)
--- NOTE | 2019-01-11 21:32 | Progress Note ---
Provider Note Provider Note: CARDIOLOGY PROGRESS NOTE by Dr.Lakshmi Sandoval on 01/11/2019. SUBJECTIVE: The patient denies any chest pain or discomfort. There is no PND orthopnea. There is leg edema is much improved and there is only trace edema. The patient has no anginal symptoms. There is no atrial or ventricular arrhythmia seen on the monitor. There is no TIA CVA symptoms. The patient denies any cough or wheezing. Patient had a CT scan of his abdomen because of complaints of nausea and vomiting. This showed only constipation. PHYSICAL EXAMINATION: The patient appears to be chronically ill he is in no acute distress. Selected Entries 01/11/19 16:00 Temperature 97.7 F Temperature Axillary Source Pulse Rate 85 Respiratory 12 Rate Blood Pressure 104/66 [Right Upper Arm] Blood Pressure 78 Mean [Right Upper Arm] Blood Pressure Supine Position [Right Upper Arm] Blood Pressure 104 Systolic [Right Upper Arm] O2 Sat by Pulse 97 Oximetry Oxygen Delivery Room Air Method ( includes room air) HEAD: Is atraumatic normocephalic. EYES: Pupils are equal round regular dallin ctive to light accommodation. Extraocular movements are normal. There is no conjunctival pallor. There is no scleral icterus. EARS: Tympanic membranes are intact. External auditory canals are clear. NOSE: There is no deviated nasal septum. There is no inflammation of the nasal mucous membrane. MOUTH: Mucous noted in the mouth are moist tongue is moist. There is no ulcers. There is no bleeding from the gums. THROAT: There is no redness of the oropharynx. There is no exudates. SKIN: There is no skin rashes or skin lesions. There is no particular ecchymosis. NECK: Is supple. There is JVD present carotids are equal there is no bruits. There is no lymphadenopathy. There is no goiter. There is no accessory muscle respiration use. Trachea central LUNGS: There is prolonged expiration. On percussion there is hyperresonance. Breath sounds are harsh he has scattered rhonchi, and today there is no wheezing. There are few crackles in the both bases due to his pneumonia. There is no rales of CHF.. HEART: S1-S2 is heard. S1 is of normal intensity. There is no S3 gallop. There is no S4 gallop. There is systolic murmur left sternal border and the apex there is no rub. ABDOMEN: Is obese. Nontender. There is no hepatosplenomegaly. Bowel sounds are well heard. There is no tender areas of masses. EXTREMITIES: Femorals are deep. Femorals are diminished. Leg pulses are diminished. There is mild bilateral pedal edema present. There is no DVT or cellulitis. There is no calf tenderness. There is no sinus or clubbing. Capillary refill is normal. 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 PSYCHIATRIC: The patient judgment insight are intact her affect is normal. 01/11/19 01/11/19 01/11/19 05:17 05:17 05:17 WBC 10.3 RBC 3.84 L Hgb 10.0 L Hct 30.8 L MCV 80 MCH 25.9 L MCHC 32.3 RDW 16.2 H Plt Count 175 Seg Neutrophils % 86.0 H Lymphocytes % 6.3 L Monocytes % 7.6 Eosinophils % 0.0 Basophils % 0.1 Absolute Neutrophils 8.8 H Absolute Lymphocytes 0.6 Absolute Monocytes 0.8 Absolute Eosinophils 0.0 Absolute Basophils 0.0 Sodium 135.9 L Potassium 4.8 Chloride 95 L Carbon Dioxide 31 H Anion Gap 10 BUN 23 H Creatinine 0.84 Est GFR (Non-Af Amer) > 60 Glucose 203 H Calcium 8.5 Magnesium 2.1 Total Bilirubin 0.4 Direct Bilirubin 0.3 Neonat Total Bilirubin Not Reportable Neonat Direct Bilirubin Not Reportable Neonat Indirect Bili Not Reportable AST 33 ALT 41 Alkaline Phosphatase 161 H Creatine Kinase CK-MB (CK-2) Troponin I NT-Pro-B Natriuret Pep 6150 H Total Protein 6.3 Albumin 3.0 L 01/11/19 01/11/19 19:30 19:30 WBC RBC Hgb Hct MCV MCH MCHC RDW Plt Count Seg Neutrophils % Lymphocytes % Monocytes % Eosinophils % Basophils % Absolute Neutrophils Absolute Lymphocytes Absolute Monocytes Absolute Eosinophils Absolute Basophils Sodium Potassium Chloride Carbon Dioxide Anion Gap BUN Creatinine Est GFR (Non-Af Amer) Glucose Calcium Magnesium Total Bilirubin Direct Bilirubin Neonat Total Bilirubin Neonat Direct Bilirubin Neonat Indirect Bili AST ALT Alkaline Phosphatase Creatine Kinase < 20 L CK-MB (CK-2) 1.65 Troponin I 0.024 NT-Pro-B Natriuret Pep Total Protein Albumin Patient's 24-hour intake is 609 mL. His output is 1685 mL. IMPRESSION/RECOMMENDATION: 1. Acute on chronic respiratory failure: This is a combination of acute exacerbation of COPD, pneumonia, bronchitis, and congestive heart failure. This is improving 2. Acute exacerbation of COPD.: Continue antibiotics continue respiratory treatments and oxygen. There is some improvement. 3. Acute on chronic systolic heart failure: At present the patient is off Dawson- Synephrine. He is on Midrin 10 mg p.o. 3 times daily. This is brought the blood pressure up a little. WILL discontinue the patient's dobutamine, and this definitely will bring the patient's blood pressure up. Continue the patient's beta-sarina and ARB.. 3. Coronary artery disease: History of myocardial infarction in the past: No evidence of anginal symptoms. No evidence of elevated troponin I at this admission. 4. Hypertension: At present blood pressure requiring inotropic support. 5. Pneumonia: Bibasilar: Continue antibiotics 6. History of cirrhosis of the liver: Secondary to chronic alcohol abuse. 7. History of alcohol abuse and tobacco abuse disorder. Ill effects of alcohol and tobacco have been discussed with the patient tobacco cessation counseling was done. This took about 4 minutes. 8. Hyperlipidemia: Continue statins. MEDICATIONS reviewed. Medications adjusted including stopping his inotropes. Medical decision making is of high complexity. 40 minutes spent on this patient more than 50% of time spent in direct patient care. Discussed the case with the hospitalist Dr. Salinas, who is the attending physician on the case. Will follow.
--- NOTE | 2019-01-11 23:30 | EKG REPORT ---
SEVERITY:- BORDERLINE ECG - SINUS RHYTHM BORDERLINE T ABNORMALITIES, ANT-LAT LEADS : Confirmed by: Mary Man 11-Jan-2019 23:28:48
[2019-01-12] MEDS: IPRATROPIUM/ALBUTEROL 0.5-2.5 MG/3 ML AMPUL NEB SCH ×6 (00:05→20:23)
[2019-01-12] MEDS: HYDROCODONE BIT/HOMATROPINE 5-1.5 MG TABLET PO PRN (02:27)
[2019-01-12] MEDS: GABAPENTIN 300 MG CAPSULE PO SCH ×3 (06:10→21:58)
[2019-01-12] MEDS: OXYCODONE-ACETAMINOPHEN 5-325 MG TABLET PO PRN ×3 (06:11→22:00)
[2019-01-12 06:22] LABS: CREATINE KINASE MB 1.37 ng/mL (<4.55); TROPONIN I 0.029 ng/mL
[2019-01-12 08:00] LABS: ALANINE AMINOTRANSFERASE 39 U/L (21-72); ALBUMIN 2.9 g/dL (3.5-5.0); ALKALINE PHOSPHATASE 144 U/L (38-126); ANION GAP 11 (5-19); ASPARTATE AMINO TRANSFERASE 32 U/L (17-59); BILIRUBIN,DIRECT 0.3 mg/dL (0.0-0.4); BILIRUBIN,TOTAL 0.4 mg/dL (0.2-1.3); BLOOD UREA NITROGEN 26 mg/dL (7-20); CALCIUM 8.5 mg/dL (8.4-10.2); CARBON DIOXIDE 31 mmol/L (22-30); CHLORIDE 95 mmol/L (98-107); GLUCOSE 100 mg/dL (75-110); POTASSIUM 4.9 mmol/L (3.6-5.0); SODIUM 137.1 mmol/L (137-145); TOTAL PROTEIN 6.3 g/dL (6.3-8.2)
[2019-01-12 08:04] LABS: ABSOLUTE EOSINOPHILS # (AUTO) 0.1 10^3/uL (0.0-0.6); ABSOLUTE LYMPHOCYTES (AUTO) 1.5 10^3/uL (0.5-4.7); BASOPHILS % (AUTO) 0.1 % (0-2); EOSINOPHILS % (AUTO) 0.8 % (0-6); HEMATOCRIT 31.1 % (37.9-51.0); HEMOGLOBIN 10.1 g/dL (13.5-17.0); LYMPHOCYTES % (AUTO) 17.7 % (13-45); MEAN CORPUSCULAR HEMOGLOBIN 25.9 pg (27.0-33.4); MEAN CORPUSCULAR HGB CONC 32.6 g/dL (32.0-36.0); MEAN CORPUSCULAR VOLUME 80 fl (80-97); MONOCYTES % (AUTO) 12.1 % (3-13); PLATELET COUNT 166 10^3/uL (150-450); RED BLOOD COUNT 3.91 10^6/uL (4.35-5.55); RED CELL DISTRIBUTION WIDTH 16.1 % (11.5-14.0); SEGMENTED NEUTROPHILS % (AUTO) 69.3 % (42-78); TOTAL CELLS COUNTED % (AUTO) 100 %; WHITE BLOOD COUNT 8.6 10^3/uL (4.0-10.5)
[2019-01-12] MEDS: POTASSIUM CHLORIDE 10 MEQ CAPSULE.ER PO SCH (10:17)
[2019-01-12] MEDS: MIDODRINE HCL 5 MG TABLET PO SCH ×3 (10:17→17:20)
[2019-01-12] MEDS: DOCUSATE SODIUM 100 MG CAPSULE PO SCH (10:18)
[2019-01-12] MEDS: FOLIC ACID 1 MG TABLET PO SCH (10:18)
[2019-01-12] MEDS: METOPROLOL SUCCINATE 25 MG TAB.SR.24H PO SCH (10:18)
[2019-01-12] MEDS: ASPIRIN 81 MG TABLET, ENT COATED PO SCH (10:18)
[2019-01-12] MEDS: LOSARTAN POTASSIUM 25 MG TABLET PO SCH (10:18)
[2019-01-12] MEDS: THIAMINE HCL 100 MG TABLET PO SCH (10:18)
[2019-01-12] MEDS: FLUTICASONE NASAL SPRAY 50 MCG/SPRY 120 SPRAY/16 GM NASL SCH ×2 (10:19→21:58)
[2019-01-12] MEDS: FLUTICASONE/VILANTEROL 200-25 MCG/DOSE IH SCH (10:19)
[2019-01-12] MEDS: CEFEPIME HCL 2 GM in DEXTROSE 5%-WATER 50 ML IV SCH (10:19)
[2019-01-12] MEDS: NICOTINE 14 MG/24 HR PATCH.TD24 TD SCH (10:20)
[2019-01-12] MEDS: NYSTATIN CREAM 15 GM TP SCH ×2 (10:20→17:22)
[2019-01-12] MEDS: NITROGLYCERIN 5 MG (0.2 MG/HR) PATCH.TD24 TD SCH (10:21)
--- NOTE | 2019-01-12 14:34 | PDOC PROGRESS REPORT ---
Subjective Progress Note for:: 01/12/19 Subjective:: No adverse events overnight. No new complaints. He was to have the Potter catheter taken out. Apparently it was taken out yesterday and had to be replaced because he could not urinate. He has not yet gotten up out of bed on his own. No fevers. No chest pain or shortness of breath. Reason For Visit: ACUTE ON CHRONIC DIASTOLIC HEART FAILURE Physical Exam Vital Signs: Temp Pulse Resp BP Pulse Ox 97.4 F 88 18 100/60 95 01/12/19 11:13 01/12/19 12:05 01/12/19 12:05 01/12/19 11:13 01/12/19 12:05 Intake & Output 01/11/19 01/12/19 01/13/19 06:59 06:59 06:59 Intake Total 609 268 507 Output Total 1687 1555 375 Balance -1076 -1287 132 Weight 75.5 kg 73.3 kg General appearance: PRESENT: no acute distress, cooperative, disheveled Respiratory exam: PRESENT: decreased breath sounds, symmetric, unlabored Cardiovascular exam: PRESENT: tachycardia GI/Abdominal exam: PRESENT: normal bowel sounds, soft. ABSENT: distended, guarding, mass, organolmegaly, rebound, tenderness Gentrourinary exam: PRESENT: indwelling catheter, scrotal edema, groin erythema Neurological exam: PRESENT: alert, awake, oriented to person, oriented to place, oriented to time, oriented to situation Results Laboratory Results: 01/12/19 05:00 01/12/19 05:00 01/11/19 01/12/19 01/12/19 19:00 05:00 05:00 WBC 8.6 RBC 3.91 L Hgb 10.1 L Hct 31.1 L MCV 80 MCH 25.9 L MCHC 32.6 RDW 16.1 H Plt Count 166 Seg Neutrophils % 69.3 Lymphocytes % 17.7 Monocytes % 12.1 Eosinophils % 0.8 Basophils % 0.1 Absolute Neutrophils 6.0 Absolute Lymphocytes 1.5 Absolute Monocytes 1.0 Absolute Eosinophils 0.1 Absolute Basophils 0.0 Sodium 137.1 Potassium 4.9 Chloride 95 L Carbon Dioxide 31 H Anion Gap 11 BUN 26 H Creatinine 1.03 Est GFR ( Amer) > 60 Est GFR (Non-Af Amer) > 60 Glucose 100 Calcium 8.5 Magnesium 2.2 Total Bilirubin 0.4 AST 32 ALT 39 Alkaline Phosphatase 144 H Total Protein 6.3 Albumin 2.9 L Urine Color YELLOW Urine Appearance SLIGHTLY-CLOUDY Urine pH 6.0 Ur Specific [place] 1.021 Urine Protein NEGATIVE Urine Glucose (UA) NEGATIVE Urine Ketones NEGATIVE Urine Blood NEGATIVE Urine Nitrite NEGATIVE Ur Leukocyte Esterase TRACE H Urine WBC (Auto) 5 Urine RBC (Auto) 5 01/05/19 01/06/19 01/07/19 22:44 04:00 07:26 Creatine Kinase CK-MB (CK-2) Troponin I 0.046 0.046 0.051 NT-Pro-B Natriuret Pep 4980 H 01/08/19 01/08/19 01/08/19 20:23 20:23 20:23 Creatine Kinase 38 L CK-MB (CK-2) 1.78 Troponin I 0.030 NT-Pro-B Natriuret Pep 6070 H 01/11/19 01/11/19 01/11/19 05:17 18:44 18:45 Creatine Kinase Cancelled CK-MB (CK-2) Cancelled Troponin I Cancelled NT-Pro-B Natriuret Pep 6150 H 01/11/19 01/11/19 01/12/19 19:30 19:30 05:00 Creatine Kinase < 20 L 21 L CK-MB (CK-2) 1.65 Troponin I 0.024 NT-Pro-B Natriuret Pep 01/12/19 01/12/19 05:00 05:00 Creatine Kinase CK-MB (CK-2) 1.37 Troponin I 0.029 NT-Pro-B Natriuret Pep 4620 H Impressions: Abdomen X-Ray 01/08/19 00:00 IMPRESSION: Nonobstructive bowel gas pattern. Large colonic stool load. Partially imaged polypoid pleural effusion. copyright 2010 [employer]- All Rights Reserved Chest X-Ray 01/08/19 20:49 IMPRESSION: The tip of the central venous line is in the superior vena cava. Cardiomegaly with mild pulmonary vascular congestion. Left basilar pleural effusion and/or atelectasis and/or infiltrate. copyright 2010 [employer]- All Rights Reserved Abdomen/Pelvis CT 01/11/19 00:00 IMPRESSION: Constipation. Mild gastric distention which is filled with food debris. Bilateral pleural effusions and basilar airspace disease right greater than left. Assessment and Plan - Diagnosis (1) Acute and chronic respiratory failure Qualifiers: Respiratory failure complication: hypoxia Qualified Code(s): J96.21 - Acute and chronic respiratory failure with hypoxia Is this a current diagnosis for this admission?: Yes Plan: Due to heart failure and pneumonia in the background of COPD. Now resolved. On room air. (2) Acute on chronic systolic heart failure, NYHA class 3 Is this a current diagnosis for this admission?: Yes Plan: Now resolved. Patient appears euvolemic. Dobutamine drip was stopped. Cardiology is been consulted. He continues on diuretics. Medical optimization. We will follow-up with cardiology as an outpatient. (3) Alcohol dependence Qualifiers: Substance use status: uncomplicated Qualified Code(s): F10.20 - Alcohol de pendence, uncomplicated Is this a current diagnosis for this admission?: Yes Plan: No evidence of withdrawal at this time. Thiamine, folate, Ativan as needed (4) Cirrhosis Qualifiers: Hepatic cirrhosis type: alcoholic cirrhosis Is this a current diagnosis for this admission?: Yes Plan: No signs of decompensation. (5) Hypotension Qualifiers: Hypotension type: other hypotension type Qualified Code(s): I95.89 - Other hypotension Is this a current diagnosis for this admission?: Yes Plan: Likely multifactorial, with his cirrhosis and possibly his pneumonia contributing along with some possible dehydration. He is currently off pressors and is euvolemic. He is on Midrin 3 times a day and his blood pressure seems to be holding stable. We will being cautious with his heart failure therapy because of his blood pressure. (6) Gram-negative pneumonia Is this a current diagnosis for this admission?: Yes Plan: Had a polymicrobial gram-negative pneumonia with E. coli and Klebsiella. There is some resistance pattern in both, but both are sensitive to cephalosporins. He is on cefepime currently. We will switch him over to Omnicef. - Time Time Spent with patient: 25-34 minutes - Plan Summary Plan Summary: I am going to keep his Potter catheter in place for now because of his scrotal edema and his groin erythema. Going to have him evaluated by physical therapy.
--- NOTE | 2019-01-12 19:37 | Progress Note ---
Provider Note Provider Note: CARDIOLOGY PROGRESS NOTE by Dr. Lorenza Sandoval on 01/12/2019. SUBJECTIVE: The patient denies any shortness of breath or cough or wheezing. He has no PND or orthopnea. There is no chest pain or discomfort. There is no arrhythmia seen on the monitor. His Potter was taken out yesterday, and the patient could not urinate and hence he has been placed back. There is no TIA CVA symptoms.\ Subjective: The patient is chronically ill. Appears to be in no acute distress. Selected Entries 01/12/19 11:13 Temperature 97.4 F Temperature Oral Source Pulse Rate 86 Respiratory 16 Rate Blood Pressure 100/60 Blood Pressure 73 Mean BP Location Left Arm BP Position Supine O2 Sat by Pulse 94 Oximetry Oxygen Delivery Room Air Method HEAD: Is atraumatic normocephalic. EYES: Pupils are equal round regular reactive to light accommodation. Extraocular movements are normal. There is no conjunctival pallor. There is no scleral icterus. EARS: Tympanic membranes are intact. External auditory canals are clear. NOSE: There is no deviated nasal septum. There is no inflammation of the nasal mucous membrane. MOUTH: Mucous noted in the mouth are moist tongue is moist. There is no ulcers. There is no bleeding from the gums. THROAT: There is no redness of the oropharynx. There is no exudates. SKIN: There is no skin rashes or skin lesions. There is no particular ecchymosis. NECK: Is supple. There is JVD present carotids are equal there is no bruits. There is no lymphadenopathy. There is no goiter. There is no accessory muscle respiration use. Trachea central LUNGS: There is prolonged expiration. On percussion there is hyperresonance. Breath sounds are harsh he has scattered rhonchi, and today there is no wheezing. There are few crackles in the both bases due to his pneumonia. There is no rales of CHF.. HEART: S1-S2 is heard. S1 is of normal intensity. There is no S3 gallop. There is no S4 gallop. There is systolic murmur left sternal border and the apex there is no rub. ABDOMEN: Is obese. Nontender. There is no hepatosplenomegaly. Bowel sounds are well heard. There is no tender areas of masses. EXTREMITIES: Femorals are deep. Femorals are diminished. Leg pulses are diminished. There is mild bilateral pedal edema present. There is no DVT or cellulitis. There is no calf tenderness. There is no sinus or clubbing. Capillary refill is normal. 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 PSYCHIATRIC: The patient judgment insight are intact her affect is normal. 01/12/19 01/12/19 01/12/19 05:00 05:00 05:00 WBC 8.6 RBC 3.91 L Hgb 10.1 L Hct 31.1 L MCV 80 MCH 25.9 L MCHC 32.6 RDW 16.1 H Plt Count 166 Seg Neutrophils % 69.3 Lymphocytes % 17.7 Monocytes % 12.1 Eosinophils % 0.8 Basophils % 0.1 Absolute Neutrophils 6.0 Absolute Lymphocytes 1.5 Absolute Monocytes 1.0 Absolute Eosinophils 0.1 Absolute Basophils 0.0 Sodium 137.1 Potassium 4.9 Chloride 95 L Carbon Dioxide 31 H Anion Gap 11 BUN 26 H Creatinine 1.03 Est GFR (Non-Af Amer) > 60 Glucose 100 Calcium 8.5 Magnesium 2.2 Total Bilirubin 0.4 Direct Bilirubin 0.3 Neonat Total Bilirubin Not Reportable Neonat Direct Bilirubin Not Reportable Neonat Indirect Bili Not Reportable AST 32 ALT 39 Alkaline Phosphatase 144 H CK-MB (CK-2) 1.37 Troponin I 0.029 NT-Pro-B Natriuret Pep Total Protein 6.3 Albumin 2.9 L 01/12/19 05:00 WBC RBC Hgb Hct MCV MCH MCHC RDW Plt Count Seg Neutrophils % Lymphocytes % Monocytes % Eosinophils % Basophils % Absolute Neutrophils Absolute Lymphocytes Absolute Monocytes Absolute Eosinophils Absolute Basophils Sodium Potassium Chloride Carbon Dioxide Anion Gap BUN Creatinine Est GFR (Non-Af Amer) Glucose Calcium Magnesium Total Bilirubin Direct Bilirubin Neonat Total Bilirubin Neonat Direct Bilirubin Neonat Indirect Bili AST ALT Alkaline Phosphatase CK-MB (CK-2) Troponin I NT-Pro-B Natriuret Pep 4620 H Total Protein Albumin IMPRESSION/RECOMMENDATION: 1. Acute on chronic respiratory failure: This is a combination of acute exacerbation of COPD, pneumonia, bronchitis, and congestive heart failure. This is improving 2. Acute exacerbation of COPD.: Continue antibiotics continue respiratory treatments and oxygen. There is good improvement. 3. Acute on chronic systolic heart failure: At present the patient is off Dawson-Synephrine. He is on Midrin 10 mg p.o. 3 times daily. This is brought the blood pressure up a little. WILL discontinue the patient's dobutamine, and this definitely will bring the patient's blood pressure up. Continue the patient's beta-sarina and ARB.. 3. Coronary artery disease: History of myocardial infarction in the past: No evidence of anginal symptoms. No evidence of elevated troponin I at this admission. The patient is not very keen on having a stress test. Will aim for Thursday to perform a stress test, if the patient does agree to it. 4. Hypertension: At present blood pressure requiring inotropic support. 5. Pneumonia: Bibasilar: Continue antibiotics. Will check chest x-ray tomorrow. 6. History of cirrhosis of the liver: Secondary to chronic alcohol abuse. 7. History of alcohol abuse and tobacco abuse disorder. Ill effects of alcohol and tobacco have been discussed with the patient tobacco cessation counseling was done. This took about 4 minutes. 8. Hyperlipidemia: Continue statins. Medications reviewed. Education of the management plan discussed with Dr. Hadley the hospitalist attending physician: The case today. Medical decision making I was of moderate complexity. 40 minutes spent on this patient with more than 50% of time spent in direct patient care. Will follow.
[2019-01-12] MEDS: SIMVASTATIN 40 MG TABLET PO SCH (22:00)
[2019-01-12] MEDS: CEFPODOXIME 200 MG TABLET PO SCH (22:00)
[2019-01-13] MEDS: IPRATROPIUM/ALBUTEROL 0.5-2.5 MG/3 ML AMPUL NEB SCH ×3 (00:25→07:51)
[2019-01-13] MEDS: OXYCODONE-ACETAMINOPHEN 5-325 MG TABLET PO PRN (04:19)
[2019-01-13] MEDS: GABAPENTIN 300 MG CAPSULE PO SCH (05:42)
--- NOTE | 2019-01-13 08:40 | RADIOLOGY REPORT (SQ) ---
EXAM DESCRIPTION: CHEST SINGLE VIEW COMPLETED DATE/TIME: 01/13/2019 7:48 am REASON FOR STUDY: PNEUMONIA COMPARISON: Chest films 05/06/2018, 01/05/2019, 01/08/2019 CT abdomen pelvis 01/11/2019 EXAM PARAMETERS: NUMBER OF VIEWS: One view. TECHNIQUE: Single frontal radiographic view of the chest acquired. RADIATION DOSE: NA LIMITATIONS: None. FINDINGS: LUNGS AND PLEURA: Persistent consolidation in the left lower lobe worrisome for pneumonia. Trace pleural effusions seen on 01/11/2019 CT abdomen pelvis are not apparent by plain film. No pneumothorax MEDIASTINUM AND HILAR STRUCTURES: No masses. Contour normal. HEART AND VASCULAR STRUCTURES: Heart normal in size. Normal vasculature. BONES: No acute findings. HARDWARE: Right jugular central line tip in the right atrium. OTHER: Clips right upper quadrant post cholecystectomy. Old fixation plate left clavicle IMPRESSION: Persistent left lower lobe consolidation worrisome for pneumonia TECHNICAL DOCUMENTATION: JOB ID: [id number] [employer]- All Rights Reserved Reading location - IP/workstation name: [email or web address]
[2019-01-13] MEDS: NICOTINE 14 MG/24 HR PATCH.TD24 TD SCH (09:53)
[2019-01-13] MEDS: DOCUSATE SODIUM 100 MG CAPSULE PO SCH (09:54)
[2019-01-13] MEDS: LOSARTAN POTASSIUM 25 MG TABLET PO SCH (09:54)
[2019-01-13] MEDS: MIDODRINE HCL 5 MG TABLET PO SCH (09:54)
[2019-01-13] MEDS: FOLIC ACID 1 MG TABLET PO SCH (09:54)
[2019-01-13] MEDS: FLUTICASONE/VILANTEROL 200-25 MCG/DOSE IH SCH (09:54)
[2019-01-13] MEDS: METOPROLOL SUCCINATE 25 MG TAB.SR.24H PO SCH (09:55)
[2019-01-13] MEDS: ASPIRIN 81 MG TABLET, ENT COATED PO SCH (09:55)
[2019-01-13] MEDS: THIAMINE HCL 100 MG TABLET PO SCH (09:55)
[2019-01-13] MEDS: NITROGLYCERIN 5 MG (0.2 MG/HR) PATCH.TD24 TD SCH (09:55)
[2019-01-13] MEDS: POTASSIUM CHLORIDE 10 MEQ CAPSULE.ER PO SCH (09:56)
[2019-01-13] MEDS: FLUTICASONE NASAL SPRAY 50 MCG/SPRY 120 SPRAY/16 GM NASL SCH (09:56)
[2019-01-13] MEDS: NYSTATIN CREAM 15 GM TP SCH (09:56)
[2019-01-13] MEDS: CEFPODOXIME 200 MG TABLET PO SCH (09:56)
[2019-01-13 10:03] VITALS: BP 104/66
--- NOTE | 2019-01-13 15:51 | PDOC DISCHARGE SUMMARY ---
General - Admit/Disc Date/PCP Admission Date/Primary Care Provider: 01/07/19 11:03 Discharge Date: 01/13/19 - Discharge Diagnosis (1) Acute and chronic respiratory failure Is this a current diagnosis for this admission?: Yes Summary: Resolved with treatment of his pneumonia and his fluid overload (2) Acute on chronic systolic heart failure, NYHA class 3 Is this a current diagnosis for this admission?: Yes Summary: Resolved with diuretics and medical optimization. He will follow-up with cardiology as an outpatient. (3) Alcohol dependence Is this a current diagnosis for this admission?: Yes Summary: Strongly encourage cessation, no signs of withdrawal at discharge (4) Cirrhosis Is this a current diagnosis for this admission?: Yes Summary: Due to alcohol abuse, again encourage cessation and close monitoring of volume status (5) Hypotension Is this a current diagnosis for this admission?: Yes Summary: Multifactorial, possibly due to his pneumonia, but also his cirrhosis has contributed. He was put on Midrin which helped keep his blood pressure up, and is also allowed us to medically optimize him for heart failure. (6) Gram-negative pneumonia Is this a current diagnosis for this admission?: Yes Summary: Polymicrobial, and E. coli and Klebsiella. Some drug resistances but both were sensitive to cephalosporins. He will finish up a course at home of Omnicef. - Additional Information Resuscitation Status: Full Code Discharge Diet: Cardiac Discharge Activity: Activity As Tolerated, Balance Activity w/Rest, Weigh Daily Prescriptions: Cefpodoxime Proxetil [Vantin 200 mg Tablet] 200 mg PO Q12 #6 tablet Furosemide [Lasix 20 mg Tablet] 20 mg PO QAM #30 tablet Losartan Potassium [Cozaar 25 mg Tablet] 25 mg PO DAILY #30 tablet Metoprolol Succinate [Toprol Xl 25 mg Tab.sr] 25 mg PO DAILY #30 tab.sr.24h Midodrine HCl 10 mg PO TID #90 tablet Nicotine [Nicoderm 14 mg/24 Hr Transdermal Patch] 1 each TD DAILY #30 patch.td24 Home Medications: Albuterol Sulfate [Proair HFA Inhalation Aerosol 8.5 gm MDI] 2 puff IH Q4HP PRN 01/06/19 Ammonium Lactate [Lac-Hydrin 12% Lotion 225Gm/Bottle] 1 applic TOP BIDP PRN 01/06/19 Budesonide/Formoterol Fumarate [Symbicort HFA 160-4.5 mcg Inhaler 6 gm] 2 puff IH Q12 01/06/19 Cyanocobalamin (Vitamin B-12) [Vitamin B-12 Inj 1000 Mcg/1 ml Vial] 1,000 mcg IM Q28D 01/06/19 Folic Acid [Folvite 1 mg Tablet] 1 mg PO QAM 01/06/19 Gabapentin [Neurontin 300 mg Capsule] 1,200 mg PO Q8 01/06/19 Ibuprofen [Motrin 800 mg Tablet] 800 mg PO Q8HP PRN 01/06/19 Ketoconazole 1 applic TOP TIDP PRN 01/06/19 Simvastatin [Zocor 40 mg Tablet] 20 mg PO QHS 01/06/19 Tramadol HCl [Ultram 50 mg Tablet] 100 mg PO TIDP PRN 01/06/19 Aspirin [Ecotrin 81 mg EC Tablet] 81 mg PO DAILY tabec 01/13/19 Cefpodoxime Proxetil [Vantin 200 mg Tablet] 200 mg PO Q12 #6 tablet 01/13/19 Furosemide [Lasix 20 mg Tablet] 20 mg PO QAM #30 tablet 01/13/19 Losartan Potassium [Cozaar 25 mg Tablet] 25 mg PO DAILY #30 tablet 01/13/19 Metoprolol Succinate [Toprol Xl 25 mg Tab.sr] 25 mg PO DAILY #30 tab.sr.24h 01/13/19 Midodrine HCl 10 mg PO TID #90 tablet 01/13/19 Nicotine [Nicoderm 14 mg/24 Hr Transdermal Patch] 1 each TD DAILY #30 patch.td24 01/13/19 History of Present Illness History of Present Illness: DURAN TELLES is a 68 year old male with a past medical history of COPD, chronic bronchitis, 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 Patient presents with 2 weeks of shortness of breath prompting him to seek evaluation at primary care where he is diagnosed with bronchitis and placed on antibiotics with out significant improvement he is subsequently noted nonproductive cough, lower extremity edema and orthopnea prompting to seek evaluation in the emergency room where he is found to have tachycardia, pulmonary vascular congestion, small left-sided pleural effusion, +3 lower extremity edema and a worrisome elevation of AST suggestive of recurrent alcohol dependence. When asked about his known untreated congestive heart failure patient is unable to respond. Hospital Course Hospital Course: He was put on antibiotics empirically until it was a terminated gram-negative pneumonia, at which time he was switched over to cefepime. He was fluid overloaded, and we wanted to give him diuretics, but he was also hypotensive. He wound up on pressors in the ICU and cardiology was consulted. He wound up on a dobutamine drip for a few days and we were able to give him some Lasix to get his excess fluid off. Once his dobutamine drip was discontinued he was able to come off pressors and we are able to keep his blood pressure up with some Midrin, which allowed us to give him some medication to medically optimize his heart failure. He was switched over to Omnicef to treat his gram-negative pneumonia. He is going to follow-up with Dr. Sandoval as an outpatient. His labs and examination were reassuring and he was discharged home today in good condition. Physical Exam Vital Signs: Temp Pulse Resp BP Pulse Ox 97.7 F 78 16 104/66 95 01/13/19 10:02 01/13/19 10:02 01/13/19 10:02 01/13/19 10:02 01/13/19 10:02 Intake & Output 01/12/19 01/13/19 01/14/19 06:59 06:59 06:59 Intake Total 268 957 Output Total 1555 1750 Balance -1287 -793 Weight 73.3 kg 78.9 kg General appearance: PRESENT: no acute distress, cooperative, disheveled Respiratory exam: PRESENT: decreased breath sounds, symmetric, unlabored Cardiovascular exam: PRESENT: tachycardia GI/Abdominal exam: PRESENT: normal bowel sounds, soft. ABSENT: distended, guarding, mass, organolmegaly, rebound, tenderness Gentrourinary exam: PRESENT: indwelling catheter, scrotal edema, groin erythema Neurological exam: PRESENT: alert, awake, oriented to person, oriented to place, oriented to time, oriented to situation Results Laboratory Results: 01/12/19 05:00 01/12/19 05:00 01/11/19 19:00 Catheterized Urine Urine Culture - Final NO GROWTH 2 DAYS 01/05/19 01/06/19 01/07/19 22:44 04:00 07:26 Creatine Kinase CK-MB (CK-2) Troponin I 0.046 0.046 0.051 NT-Pro-B Natriuret Pep 4980 H 01/08/19 01/08/19 01/08/19 20:23 20:23 20:23 Creatine Kinase 38 L CK-MB (CK-2) 1.78 Troponin I 0.030 NT-Pro-B Natriuret Pep 6070 H 01/11/19 01/11/19 01/11/19 05:17 18:44 18:45 Creatine Kinase Cancelled CK-MB (CK-2) Cancelled Troponin I Cancelled NT-Pro-B Natriuret Pep 6150 H 01/11/19 01/11/19 01/12/19 19:30 19:30 05:00 Creatine Kinase < 20 L 21 L CK-MB (CK-2) 1.65 Troponin I 0.024 NT-Pro-B Natriuret Pep 01/12/19 01/12/19 05:00 05:00 Creatine Kinase CK-MB (CK-2) 1.37 Troponin I 0.029 NT-Pro-B Natriuret Pep 4620 H Impressions: Abdomen X-Ray 01/08/19 00:00 IMPRESSION: Nonobstructive bowel gas pattern. Large colonic stool load. Partially imaged polypoid pleural effusion. copyright 2010 [employer]- All Rights Reserved Abdomen/Pelvis CT 01/11/19 00:00 IMPRESSION: Constipation. Mild gastric distention which is filled with food debris. Bilateral pleural effusions and basilar airspace disease right greater than left. Chest X-Ray 01/13/19 06:00 IMPRESSION: Persistent left lower lobe consolidation worrisome for pneumonia Qualifiers - * PATIENT BEING DISCHARGED WITH ANY OF THE FOLLOWING DIAGNOSIS: No Acute Heart Failure Is this a Heart Failure Patient?: Yes Documentation of LVEF assessment?: Planned for after discharge LVEF < 40%?: Yes-if yes answer questions a through e a) Discharged on ACEI?: N/A Discharged on ARB b) Discharges on ARB?: Yes c) Discharged on ARNI?: No-Document Contraindications Reason(s) not discharged on ARNI: Other - Said he could not afford d) Discharged on evidence-based Beta sarina(carvedilol, sustained release metoprolol succinate, or bisoprolol)?: Yes e) For LVEF <35%, discharged on Aldosterone antagonist?: No-document contraincations Reason(s) not discharged on Aldosterone antagonist for LVEF < 35%: Other - Blood pressure too low 3. Anticoagulant therapy for permanect/persistent/paraoxysmal Afib or Aflutter: N/A Follow-up Appointment scheduled within 7 days?: Yes Plan Time Spent: Greater than 30 Minutes
== END 2019-01-13 10:46 | disposition home or self-care (01) | DRG 177 ==
LOC: ER 21:59 → EH 01-06 00:26 → 4S 01-06 05:27 → OBSVTOIN 01-07 11:03 → ICU 01-08 19:40 → 3W 01-12 02:16
PROVIDERS: ADMIT Internal Medicine; ATTEND Internal Medicine
PROC: 02HV33Z Insertion of Infusion Device into Superior Vena Cava, Percutaneous Approach (ICD-10-PCS; principal; 2019-01-08)
PROC: B548ZZA Ultrasonography of Superior Vena Cava, Guidance (ICD-10-PCS; 2019-01-08)
DX: J15.5 Pneumonia due to Escherichia coli (principal); I50.23 Acute on chronic systolic (congestive) heart failure; J96.21 Acute and chronic respiratory failure with hypoxia; J44.1 Chronic obstructive pulmonary disease with (acute) exacerbation; J44.0 Chronic obstructive pulmonary disease with (acute) lower respiratory infection; R64 Cachexia; J15.0 Pneumonia due to Klebsiella pneumoniae; K70.30 Alcoholic cirrhosis of liver without ascites; F17.200 Nicotine dependence, unspecified, uncomplicated; Z98.84 Bariatric surgery status; F10.20 Alcohol dependence, uncomplicated; Z82.49 Family history of ischemic heart disease and other diseases of the circulatory system; Z88.0 Allergy status to penicillin; Z88.1 Allergy status to other antibiotic agents; Z88.8 Allergy status to other drugs, medicaments and biological substances; Z91.19 Patient's noncompliance with other medical treatment and regimen; I25.5 Ischemic cardiomyopathy; I95.9 Hypotension, unspecified; J40 Bronchitis, not specified as acute or chronic; I25.10 Atherosclerotic heart disease of native coronary artery without angina pectoris; I25.2 Old myocardial infarction; E78.5 Hyperlipidemia, unspecified; Z16.30 Resistance to unspecified antimicrobial drugs
CPT/HCPCS: 36415; 71045; 74019; 74176; 80048; 80053; 81001; 82140; 82550; 82553; 82803; 83690; 83735; 83880; 84443; 84484; 85025; 85027; 85610; 87070; 87077; 87086; 87186; 87205; 93005; 93010; 93306; 94640; 94660; 94667; 94668; 94799; 96372; 96374; 96375; 99285; C1751; G0378; J0692; J1250; J1650; J1940; J1956; J2060; J2270; J2370; J2405; J2920; J2930; J3490; J7060; J7620

== ENCOUNTER 2019-01-18 02:23 | Inpatient (IN) | payer OTHER, MEDICARE ==
[2019-01-18] MEDS ORDERED: FUROSEMIDE 20 MG TABLET PO ONE (02:41)
[2019-01-18] MEDS ORDERED: IPRATROPIUM/ALBUTEROL 0.5-2.5 MG/3 ML AMPUL NEB ONE (02:41)
[2019-01-18] MEDS ORDERED: METOPROLOL TARTRATE 25 MG TABLET PO ONE (02:42)
--- NOTE | 2019-01-18 02:46 | ER Document Report ---
ED General - General Chief Complaint: Shortness Of Breath Stated Complaint: SHORTNESS OF BREATH Time Seen by Provider: 01/18/19 02:29 Notes: Patient 68-year-old male with a history of CHF, COPD, former alcoholic, cirrhosis of the liver, and chronic ejection fraction of less than 25%. He presents because of difficulty breathing. I saw him last month with similar symptoms and he was admitted to the hospital. He said hospital for a week and was discharged home on multiple medications. He said he went to the [place] they would not fill his medications and told me that the pain for the first 30-day supply himself. Patient says he cannot afford it therefore never filled any of his medications and has not been taking them and gradually is gotten worse to the point where he says he cannot breathe and the swelling is gotten worse and he feels unwell. Patient denies chest pain. No other complaints this time. TRAVEL OUTSIDE OF THE [place] IN LAST 30 DAYS: No - Related Data Allergies/Adverse Reactions: azithromycin Allergy (Verified 05/06/18 14:51) ketorolac [From Toradol] Allergy (Verified 05/06/18 14:51) Penicillins Allergy (Verified 05/06/18 14:51) Past Medical History - Social History Smoking Status: Current Every Day Smoker Frequency of alcohol use: former Drug Abuse: None Family History: CAD, COPD, Hypertension - Past Medical History Cardiac Medical History: Reports: Hx Congestive Heart Failure Pulmonary Medical History: Reports: Hx Asthma, Hx Bronchitis, Hx COPD Renal/ Medical History: Denies: Hx Peritoneal Dialysis Past Surgical History: Reports: Hx Gastric Bypass Surgery Review of Systems - Review of Systems Notes: My Normal Review Basic REVIEW OF SYSTEMS: CONSTITUTIONAL : Denies fever, chills, or sweats. Denies recent illness. EENT: Denies eye, ear, throat, or mouth pain or symptoms. Denies nasal or sinus congestion. CARDIOVASCULAR: Denies chest pain. RESPIRATORY: Difficulty breathing. GASTROINTESTINAL: Denies abdominal pain. Denies nausea, vomiting, or diarrhea. MUSCULOSKELETAL: Lower extremity edema. SKIN: Denies rash or skin lesions. NEUROLOGICAL: Denies altered mental status or loss of consciousness. Denies headache. Denies weakness or paralysis or loss of use of either side. Denies problems with gait or speech. Denies sensory or motor loss. ALL OTHER SYSTEMS REVIEWED AND NEGATIVE. Physical Exam - Vital signs Vitals: Temp Pulse Resp BP Pulse Ox 98.0 F 128 H 18 133/93 H 97 01/18/19 02:48 01/18/19 02:48 01/18/19 02:48 01/18/19 02:48 01/18/19 02:48 - Notes Notes: General Appearance: Well nourished, alert, cooperative, mild acute distress, no obvious discomfort. Vitals: reviewed, See vital signs table. Eyes: PERRL, EOMI, Conjuctiva clear Mouth: No decreasd moisture Throat: No tonsillar inflammation, No airway obstruction, No lymphadenopathy Neck: Supple, no neck tenderness, No thyromegaly Lungs: Scattered wheezing and rales. Some accessory muscle use. Heart: Normal rate, Regular rythm, No murmur, no rub Abdomen: Normal BS, soft, No rigidity, No abdominal tenderness, No guarding, no rebound, no abdominal masses, no organomegaly Extremities: strength 5/5 in all extremities, good pulses in all extremities, no swelling or tenderness in the extremities, plus bilateral lower extremity edema. Skin: warm, dry, appropriate color, no rash Neuro: speech clear, oriented x 3, normal affect, responds appropriately to questions. Course - Re-evaluation Re-evalutation: 01/18/19 04:05 On repeat evaluation his wheezing is gone away however he still has a lot of rales on lung auscultation. Chest x-ray is read as normal however looking at I feel that he does have significant upon vascular congestion. His BNP is more elevated than it was before. He is not currently having chest pain. He has some improvement of his respiratory distress. Is not requiring BiPAP. His tachycardia started improved. Initially his heart was in the 120s and outs down to 108. Suspect all this is because the patient has not been taking his meds except that he cannot fill his prescriptions. Feel that he does require admission for continued diuresis. I have spoken with the hospitalist, Dr. August, who agrees to evaluate the patient for admission. Dictation of this chart was performed using voice recognition software; therefore, there may be some unintended grammatical errors. - Vital Signs Vital signs: Temp Pulse Resp BP Pulse Ox 98.0 F 128 H 18 133/93 H 97 01/18/19 02:48 01/18/19 02:48 01/18/19 02:48 01/18/19 02:48 01/18/19 02:48 - Laboratory Result Diagrams: 01/18/19 02:45 01/18/19 02:45 Laboratory results interpreted by me: 01/18/19 01/18/19 01/18/19 02:45 02:45 02:45 RBC 4.22 L Hgb 10.9 L Hct 33.3 L MCV 79 L MCH 25.8 L RDW 15.8 H PT 15.8 H Sodium 135.8 L Alkaline Phosphatase 159 H NT-Pro-B Natriuret Pep Albumin 3.3 L 01/18/19 02:45 RBC Hgb Hct MCV MCH RDW PT Sodium Alkaline Phosphatase NT-Pro-B Natriuret Pep 8210 H Albumin - EKG Interpretation by Me Additional EKG results interpreted by me: 01/18/19 03:45 EKG is reviewed and interpreted by me. EKG shows sinus tachycardia with a rate of [address] segment elevation or depression. No ischemic T wave inversions. NC interval, QRS duration, QTc intervals are within normal range. Old EKG for comparison is from January 11, 2019. Discharge - Discharge Clinical Impression: Fluid overload Qualifiers: Hypervolemia type: unspecified Qualified Code(s): E87.70 - Fluid overload, unspecified CHF exacerbation Qualifiers: Heart failure type: unspecified Qualified Code(s): I50.9 - Heart failure, unspecified Condition: Stable Disposition: ADMITTED INPATIENT Admitting Provider: Mata (Hospitalist) Unit Admitted: Telemetry
[2019-01-18 03:01] LABS: ABSOLUTE BASOPHILS # (AUTO) 0.1 10^3/uL (0.0-0.2); ABSOLUTE EOSINOPHILS # (AUTO) 0.4 10^3/uL (0.0-0.6); ABSOLUTE MONOCYTES (AUTO) 0.7 10^3/uL (0.1-1.4); ABSOLUTE NEUT (AUTO) 4.3 10^3/uL (1.7-8.2); BASOPHILS % (AUTO) 1.2 % (0-2); EOSINOPHILS % (AUTO) 5.9 % (0-6); HEMATOCRIT 33.3 % (37.9-51.0); HEMOGLOBIN 10.9 g/dL (13.5-17.0); LYMPHOCYTES % (AUTO) 15.6 % (13-45); MEAN CORPUSCULAR HEMOGLOBIN 25.8 pg (27.0-33.4); MEAN CORPUSCULAR HGB CONC 32.6 g/dL (32.0-36.0); MEAN CORPUSCULAR VOLUME 79 fl (80-97); MONOCYTES % (AUTO) 10.8 % (3-13); PLATELET COUNT 170 10^3/uL (150-450); RED BLOOD COUNT 4.22 10^6/uL (4.35-5.55); RED CELL DISTRIBUTION WIDTH 15.8 % (11.5-14.0); SEGMENTED NEUTROPHILS % (AUTO) 66.5 % (42-78); TOTAL CELLS COUNTED % (AUTO) 100 %; WHITE BLOOD COUNT 6.5 10^3/uL (4.0-10.5)
[2019-01-18 03:07] LABS: INTERNATIONAL RATION (INR) 1.19; PROTHROMBIN TIME 15.8 SEC (11.4-15.4)
[2019-01-18 03:20] LABS: ALANINE AMINOTRANSFERASE 45 U/L (21-72); ALBUMIN 3.3 g/dL (3.5-5.0); ALKALINE PHOSPHATASE 159 U/L (38-126); ANION GAP 9 (5-19); ASPARTATE AMINO TRANSFERASE 53 U/L (17-59); BILIRUBIN,DIRECT 0.4 mg/dL (0.0-0.4); BILIRUBIN,TOTAL 0.7 mg/dL (0.2-1.3); BLOOD UREA NITROGEN 16 mg/dL (7-20); CALCIUM 8.6 mg/dL (8.4-10.2); CARBON DIOXIDE 26 mmol/L (22-30); CHLORIDE 101 mmol/L (98-107); GLUCOSE 102 mg/dL (75-110); POTASSIUM 4.1 mmol/L (3.6-5.0); SODIUM 135.8 mmol/L (137-145); TOTAL PROTEIN 6.7 g/dL (6.3-8.2)
--- NOTE | 2019-01-18 03:31 | RADIOLOGY REPORT (SQ) ---
CLINICAL HISTORY: dyspnea COMPARISON: January 08, 2019. TECHNIQUE: XR CHEST 1 VIEW 01/18/2019 2:39 AM CDT FINDINGS: The heart is mildly enlarged. Lungs are clear without consolidation, atelectasis, mass or edema. There is no pleural effusion. There is no pneumothorax. Left clavicle fracture repair is unchanged. IMPRESSION: Clear lungs.
[2019-01-18 03:33] LABS: TROPONIN I 0.044 ng/mL
[2019-01-18] MEDS ORDERED: ONDANSETRON HCL INJ/PF 4 MG/2 ML SDV IV PRN (04:47)
[2019-01-18] MEDS ORDERED: MAG HYDROX/AL HYDROX/SIMETH SUSP 30 ML UDCUP PO PRN (04:47)
[2019-01-18] MEDS ORDERED: MAGNESIUM HYDROXIDE SUSP 30 ML UDCUP PO PRN (04:47)
[2019-01-18] MEDS ORDERED: ACETAMINOPHEN 325 MG TABLET PO PRN (04:52)
[2019-01-18] MEDS ORDERED: NICOTINE 21 MG/24 HR PATCH.TD24 TD PRN (04:52)
[2019-01-18] MEDS ORDERED: MORPHINE SULFATE 10 MG/ML INJ IV PRN (04:52)
[2019-01-18] MEDS ORDERED: ALBUTEROL SULFATE HFA (90 MCG/PUFF) 200 PUFF/8.5 GM MDI IH PRN (04:54)
[2019-01-18] MEDS ORDERED: CYANOCOBALAMIN (VITAMIN B-12) INJ 1000 MCG/1 ML VIAL IM SCH ×2 (05:00→08:45)
[2019-01-18] MEDS: HEPARIN SOD (PORCINE) 5,000 UNIT/ML 1 ML SYRINGE SUBCUT SCH ×3 (06:13→21:24)
--- NOTE | 2019-01-18 06:33 | PDOC H&P ---
History of Present Illness Admission Date/PCP: 01/18/19 04:11 VACLINIC Patient complains of: Dyspnea History of Present Illness: DURAN TELLES is a 68 year old male 1 week history of progressively worsening dyspnea. States that he was recently discharged from the hospital but was unable to get his medications due to the [facility] not providing coverage for them until he had paid for the first 30-day supply. He was unable to afford the medications and so therefore he did not purchase them and has not been taking them. Since he has been off all medication his breathing has gradually worsened to the present point where he is severely dyspneic and seeking help in the emergency room. He denies other associated symptoms. He admits similar prior episodes related to his congestive heart failure and he has not identified any other aggravating or ameliorating factors for his dyspnea. In the emergency room he was found to have fluid overload/pulmonary edema with congestive heart failure by chest x-ray and an increased BNP. Patient was subsequently admitted to the hospital for further evaluation and treatment. Past Medical History Cardiac Medical History: Reports: Congestive Heart Failure - Chronic systolic congestive heart failure with ejection fraction of 25% Denies: Atrial Fibrillation, Coronary Artery Disease, Hyperlipidema, Hyperten sánchez Pulmonary Medical History: Reports: Asthma, Bronchitis, Chronic Obstructive Pulmonary Disease (COPD) EENT Medical History: Denies: Cataracts, Ears - Hearing aids Neurological Medical History: Denies: Hemorrhagic CVA, Ischemic CVA, Seizures Endocrine Medical History: Denies: Diabetes Mellitus Type 1, Diabetes Mellitus Type 2, Hyperthyroidism, Hypothyroidism Renal/ Medical History: Denies: Chronic Kidney Disease, Nephrolithiasis Malignancy Medical History: Reports: None GI Medical History: Denies: Cirrhosis, Hepatitis Musculoskeltal Medical History: Denies: Arthritis, Gout Skin Medical History: Denies: Eczema, Psoriasis Psychiatric Medical History: Reports: Alcohol Dependency, Tobacco Dependency Denies: Substance Abuse Traumatic Medical History: Reports: None Hematology: Denies: Anemia Infectious Medical History: Reports: None Past Surgical History Past Surgical History: Reports: Gastric Bypass Surgery Social History Information Source: Patient Lives with: Spouse/Significant other Smoking Status: Current Every Day Smoker Frequency of Alcohol Use: Heavy Hx Recreational Drug Use: No Drugs: None Hx Prescription Drug Abuse: No - Advance Directive Resuscitation Status: Full Code Surrogate healthcare decision maker:: Reina his daughter Family History Family History: CAD, COPD, Hypertension Parental Family History Reviewed: Yes Children Family History Reviewed: No Sibling(s) Family History Reviewed.: Yes Medication/Allergy Home Medications: Albuterol Sulfate [Proair HFA Inhalation Aerosol 8.5 gm MDI] 2 puff IH Q4HP PRN 01/06/19 Ammonium Lactate [Lac-Hydrin 12% Lotion 225Gm/Bottle] 1 applic TOP BIDP PRN 01/06/19 Budesonide/Formoterol Fumarate [Symbicort HFA 160-4.5 mcg Inhaler 6 gm] 2 puff IH Q12 01/06/19 Cyanocobalamin (Vitamin B-12) [Vitamin B-12 Inj 1000 Mcg/1 ml Vial] 1,000 mcg IM Q28D 01/06/19 Folic Acid [Folvite 1 mg Tablet] 1 mg PO QAM 01/06/19 Gabapentin [Neurontin 300 mg Capsule] 1,200 mg PO Q8 01/06/19 Ibuprofen [Motrin 800 mg Tablet] 800 mg PO Q8HP PRN 01/06/19 Ketoconazole 1 applic TOP TIDP PRN 01/06/19 Simvastatin [Zocor 40 mg Tablet] 20 mg PO QHS 01/06/19 Tramadol HCl [Ultram 50 mg Tablet] 100 mg PO TIDP PRN 01/06/19 Aspirin [Ecotrin 81 mg EC Tablet] 81 mg PO DAILY tabec 01/13/19 Cefpodoxime Proxetil [Vantin 200 mg Tablet] 200 mg PO Q12 #6 tablet 01/13/19 Furosemide [Lasix 20 mg Tablet] 20 mg PO QAM #30 tablet 01/13/19 Losartan Potassium [Cozaar 25 mg Tablet] 25 mg PO DAILY #30 tablet 01/13/19 Metoprolol Succinate [Toprol Xl 25 mg Tab.sr] 25 mg PO DAILY #30 tab.sr.24h 01/13/19 Midodrine HCl 10 mg PO TID #90 tablet 01/13/19 Nicotine [Nicoderm 14 mg/24 Hr Transdermal Patch] 1 each TD DAILY #30 patch.td24 01/13/19 Allergies/Adverse Reactions: azithromycin Allergy (Verified 05/06/18 14:51) ketorolac [From Toradol] Allergy (Verified 05/06/18 14:51) Penicillins Allergy (Verified 05/06/18 14:51) Review of Systems Constitutional: ABSENT: chills, fever(s) Eyes: ABSENT: visual disturbances, other - Ocular pain Ears: ABSENT: hearing changes, other - Ear pain Nose, Mouth, and Throat: ABSENT: mouth pain, sore throat Cardiovascular: PRESENT: dyspnea on exertion, edema. ABSENT: chest pain, orthropnea, palpitations Respiratory: PRESENT: dyspnea. ABSENT: cough Gastrointestinal: ABSENT: abdominal pain, constipation, diarrhea, nausea, vomiting Genitourinary: ABSENT: difficulty urinating, dysuria, hematuria, nocturia Musculoskeletal: ABSENT: back pain, joint swelling, muscle weakness Integumentary: ABSENT: pruritus, rash Neurological: ABSENT: confusion, convulsions, focal weakness, memory loss, numbn ess, syncope Psychiatric: ABSENT: anxiety, depression Endocrine: ABSENT: cold intolerance, heat intolerance Hematologic/Lymphatic: ABSENT: easy bleeding, easy bruising Physical Exam Vital Signs: Temp Pulse Resp BP Pulse Ox 98.0 F 128 H 18 133/93 H 97 01/18/19 02:48 01/18/19 02:48 01/18/19 02:48 01/18/19 02:48 01/18/19 02:48 Intake & Output 01/16/19 01/17/19 01/18/19 23:59 23:59 23:59 Weight 78.2 kg General appearance: PRESENT: cooperative - Secondary to dyspnea, mild distress Head exam: PRESENT: atraumatic, normocephalic Eye exam: ABSENT: conjunctival injection, scleral icterus Ear exam: PRESENT: normal external ear exam. ABSENT: bleeding, drainage Mouth exam: PRESENT: dry mucosa, neck supple Neck exam: ABSENT: thyromegaly, tracheal deviation Respiratory exam: PRESENT: rales - Bibasilar fine rales noted, symmetrical, tachypnea Cardiovascular exam: PRESENT: gallop - S4, RRR, tachycardia. ABSENT: clicks, rubs Pulses: PRESENT: normal radial pulses. ABSENT: normal dorsalis pedis pul - Dorsalis pedis pulses are diminished secondary to bipedal edema Vascular exam: PRESENT: normal capillary refill. ABSENT: pallor GI/Abdominal exam: PRESENT: normal bowel sounds, soft Rectal exam: PRESENT: deferred Extremities exam: PRESENT: pedal edema - 2+ pitting bilateral feet, +2 edema - 2+ pitting pretibial edema bilateral lower extremities. ABSENT: joint swelling, tenderness Musculoskeletal exam: PRESENT: full ROM. ABSENT: deformity, dislocation Neurological exam: PRESENT: alert, oriented to person, oriented to place, oriented to time, oriented to situation, CN II-XII grossly intact. ABSENT: motor sensory deficit Psychiatric exam: PRESENT: appropriate affect, normal mood Skin exam: PRESENT: dry, intact, warm. ABSENT: jaundice, rash, urticaria Results Laboratory Results: 01/18/19 02:45 01/18/19 02:45 01/18/19 01/18/19 02:45 02:45 WBC 6.5 RBC 4.22 L Hgb 10.9 L Hct 33.3 L MCV 79 L MCH 25.8 L MCHC 32.6 RDW 15.8 H Plt Count 170 Seg Neutrophils % 66.5 Lymphocytes % 15.6 Monocytes % 10.8 Eosinophils % 5.9 Basophils % 1.2 Absolute Neutrophils 4.3 Absolute Lymphocytes 1.0 Absolute Monocytes 0.7 Absolute Eosinophils 0.4 Absolute Basophils 0.1 Sodium 135.8 L Potassium 4.1 Chloride 101 Carbon Dioxide 26 Anion Gap 9 BUN 16 Creatinine 0.70 Est GFR ( Amer) > 60 Est GFR (Non-Af Amer) > 60 Glucose 102 Calcium 8.6 Total Bilirubin 0.7 AST 53 ALT 45 Alkaline Phosphatase 159 H Total Protein 6.7 Albumin 3.3 L 01/18/19 02:45 Troponin I 0.044 NT-Pro-B Natriuret Pep 8210 H Impressions: Chest X-Ray 01/18/19 02:39 IMPRESSION: Clear lungs. Assessment and Plan - Diagnosis (1) Acute on chronic systolic heart failure, NYHA class 3 Is this a current diagnosis for this admission?: Yes Plan: Patient will be put back on his previous regiment of congestive heart failure medications from his very recent hospitalization. His status will be evaluated on a regular basis with a daily CBC, metabolic profile and magnesium level. Discharge planning will be consulted to aid the patient in getting his appropriate medications at the time of discharge in order to prevent a cycle of readmissions. Serial cardiac enzymes will be obtained to assure no myocardial ischemia or injury has occurred. (2) COPD (chronic obstructive pulmonary disease) Qualifiers: COPD type: unspecified COPD Qualified Code(s): J44.9 - Chronic obstructive pulmonary disease, unspecified Is this a current diagnosis for this admission?: Yes Plan: Patient will be maintained on a therapeutic regiment for his COPD during his hospital course, utilizing nebulized Xopenex, Pulmicort and Atrovent. His oxygen saturation will be followed on a regular basis. (3) Tobacco abuse Is this a current diagnosis for this admission?: Yes Plan: Smoking cessation is advised and counseled briefly. Nicotine replacement patches available for patients use. (4) Alcohol dependence Qualifiers: Substance use status: uncomplicated Qualified Code(s): F10.20 - Alcohol dependence, uncomplicated Is this a current diagnosis for this admission?: Yes Plan: Patient has been advised that alcohol usage is damaging to his overall health. Recommendations for joining an alcohol cessation program have been made. - Time Time Spent with patient: 25-34 minutes Smoking Cessation Education: 3 to 10 minutes Medications reviewed and adjusted accordingly: Yes Anticipated discharge: Home with Homehealth - Inpatient Certification Based on my medical assessment, after consideration of the patient's comor bidities, presenting symptoms, or acuity I expect that the services needed warrant INPATIENT care.: Yes I certify that my determination is in accordance with my understanding of Medicare's requirements for reasonable and necessary INPATIENT services [42 CFR 412.3e].: Yes Medical Necessity: Significant Comorbidiites Make Outpatient Treatment Too Risky, Need Close Monitoring Due to Risk of Patient Decompensation, Need For Continuous Telemetry Monitoring, Risk of Complication if Not Cared For in Hospital
[2019-01-18] MEDS ORDERED: FOLIC ACID 1 MG TABLET PO SCH (08:00)
[2019-01-18] MEDS ORDERED: OXYCODONE-ACETAMINOPHEN 5-325 MG TABLET PO PRN (08:39)
[2019-01-18] MEDS ORDERED: (PENDING PHARMACY ID) (Ketoconazole [Ketoconazole] 1 APPLIC) TOP PRN (08:40)
[2019-01-18] MEDS: BUDESONIDE NEB 0.5 MG/2 ML AMPUL NEB SCH ×2 (08:41→20:35)
[2019-01-18] MEDS: LEVALBUTEROL HCL NEB 1.25 MG/3 ML AMPUL NEB SCH ×2 (08:41→16:15)
[2019-01-18] MEDS: IPRATROPIUM BROMIDE 0.02% NEB 0.5 MG/2.5 ML AMPUL NEB SCH ×2 (08:41→16:15)
[2019-01-18] MEDS: METOPROLOL SUCCINATE 25 MG TAB.SR.24H PO SCH (09:18)
[2019-01-18] MEDS: FOLIC ACID 1 MG TABLET PO SCH (09:18)
[2019-01-18] MEDS: DOCUSATE SODIUM 100 MG CAPSULE PO SCH ×2 (09:18→17:22)
[2019-01-18] MEDS: MIDODRINE HCL 5 MG TABLET PO SCH ×4 (09:18→18:16)
[2019-01-18] MEDS: FUROSEMIDE 20 MG TABLET PO SCH (09:18)
[2019-01-18] MEDS: FAMOTIDINE 20 MG TABLET PO SCH ×2 (09:19→21:23)
[2019-01-18] MEDS: LOSARTAN POTASSIUM 25 MG TABLET PO SCH (09:19)
[2019-01-18 09:31] LABS: CREATINE KINASE MB 1.82 ng/mL (<4.55); TROPONIN I 0.041 ng/mL
[2019-01-18] MEDS: AMMONIUM LACTATE 12% LOTION 225GM BOTTLE TP SCH ×2 (09:31→17:23)
[2019-01-18] MEDS: FLUTICASONE/VILANTEROL 200-25 MCG/DOSE IH SCH (09:31)
[2019-01-18] MEDS ORDERED: ASPIRIN 81 MG TABLET, ENT COATED PO SCH (10:00)
[2019-01-18] MEDS ORDERED: (PENDING PHARMACY ID) (Ammonium Lactate 1 APPLIC) TOP SCH (10:00)
[2019-01-18] MEDS ORDERED: (PENDING PHARMACY ID) (Midodrine Hcl [Midodrine Hcl] 10 MG) PO SCH (10:00)
[2019-01-18] MEDS: LEVALBUTEROL HCL NEB 0.63 MG/3 ML AMPUL NEB PRN (12:22)
[2019-01-18] MEDS: TRAMADOL HCL 50 MG TABLET PO PRN (12:55)
[2019-01-18] MEDS ORDERED: OXYCODONE HCL SR 10 MG TABLET PO ONE (15:00)
[2019-01-18] MEDS: GABAPENTIN 300 MG CAPSULE PO SCH ×3 (15:21→21:23)
[2019-01-18 16:05] LABS: CREATINE KINASE MB 1.48 ng/mL (<4.55); TROPONIN I 0.041 ng/mL
--- NOTE | 2019-01-18 16:06 | RADIOLOGY REPORT (SQ) ---
EXAM DESCRIPTION: CTA CHEST COMPLETED DATE/TIME: 01/18/2019 3:47 pm REASON FOR STUDY: shortness of breath COMPARISON: None. TECHNIQUE: CT scan of the chest performed using helical scanning technique with dynamic intravenous contrast injection. Images reviewed with lung, soft tissue and bone windows. Reconstructed coronal and sagittal MPR images reviewed. Additional 3 dimensional post-processing performed to develop Maximal Intensity Projection images ([facility] P). All images stored on PACS. All CT scanners at this facility use dose modulation, iterative reconstruction, and/or weight based d osing when appropriate to reduce radiation dose to as low as reasonably achievable (ALARA). [facility]: Dose Right [facility]: CareDose [facility]: Dose Right [facility]: Teradose 4D [facility]: Askablogr CONTRAST TYPE AND DOSE: contrast/concentration: Isovue 350.00 mg/ml; Total Contrast Delivered: 67.0 ml; Total Saline Delivered: 91.0 ml Contrast bolus optimized for the pulmonary arteries. Not diagnostic for the aorta. RENAL FUNCTION: BUN 16 creatinine 0.7 RADIATION DOSE: CT Rad equipment meets quality standard of care and radiation dose reduction techniq ues were employed. CTDIvol: 1.9 - 18.8 mGy. DLP: 384 mGy-cm. . LIMITATIONS: None. FINDINGS: LUNGS AND PLEURA: Bilateral moderate pleural effusions, right larger than left. Mild lowe r lobe airspace disease. AORTA AND GREAT VESSELS: No aneurysm. Contrast bolus not optimized for the aorta. HEART: Small pericardial effusion. Moderate to marked coronary artery calcifications. PULMONARY ARTERIES: No emboli visualized in the main pulmonary arteries or the segmental branches. HILAR AND MEDIASTINAL STRUCTURES: No identified masses or abnormal nodes. HARDWARE: None in the chest. UPPER ABDOMEN: Gastric bypass. No acute finding. THYROID AND OTHER SOFT TISSUES: No masses. No adenopathy. BONES: No acute or significant finding. 3D MIPS: Confirm above findings. OTHER: No other significant finding. IMPRESSION: There is no evidence of pulmonary embolus. No aortic aneurysm or dissection. Bilateral pleural effusions with mild associated atelectasis in the lower lobes. Small pericardial effusion. COMMENT: Quality ID # [id number]: Final reports with documentation of one or more dose reduction techniques (e.g., Automated exposure control, adjustment of the mA and/or kV according to patient size, use of iterative reconstruction technique) TECHNICAL DOCUMENTATION: JOB ID: [id number]- All Rights Reserved Reading location - IP/workstation name: [email or web address]
--- NOTE | 2019-01-18 17:44 | EKG REPORT ---
SEVERITY:- BORDERLINE ECG - SINUS RHYTHM ATRIAL PREMATURE COMPLEX BORDERLINE T ABNORMALITIES, ANT-LAT LEADS : Confirmed by: Lorenza Sandoval MD 18-Jan-2019 17:43:28
--- NOTE | 2019-01-18 17:44 | EKG REPORT ---
SEVERITY:- BORDERLINE ECG - SINUS TACHYCARDIA BORDERLINE T ABNORMALITIES, ANT-LAT LEADS : Confirmed by: Lorenza Sandoval MD 18-Jan-2019 17:43:32
[2019-01-18] MEDS: OXYCODONE HCL SR 10 MG TABLET PO SCH (21:23)
[2019-01-18] MEDS: SIMVASTATIN 40 MG TABLET PO SCH (21:23)
[2019-01-18] MEDS ORDERED: SIMVASTATIN 40 MG TABLET PO SCH (22:00)
[2019-01-19] MEDS: LEVALBUTEROL HCL NEB 1.25 MG/3 ML AMPUL NEB SCH ×3 (00:10→16:31)
[2019-01-19] MEDS: IPRATROPIUM BROMIDE 0.02% NEB 0.5 MG/2.5 ML AMPUL NEB SCH ×3 (00:10→16:31)
[2019-01-19] MEDS: GABAPENTIN 300 MG CAPSULE PO SCH ×3 (05:39→21:33)
[2019-01-19] MEDS: HEPARIN SOD (PORCINE) 5,000 UNIT/ML 1 ML SYRINGE SUBCUT SCH ×3 (05:40→21:34)
[2019-01-19] MEDS: OXYCODONE HCL SR 10 MG TABLET PO SCH ×3 (05:40→21:34)
[2019-01-19 06:20] LABS: ABSOLUTE BASOPHILS # (AUTO) 0.1 10^3/uL (0.0-0.2); ABSOLUTE EOSINOPHILS # (AUTO) 0.5 10^3/uL (0.0-0.6); ABSOLUTE LYMPHOCYTES (AUTO) 1.5 10^3/uL (0.5-4.7); ABSOLUTE MONOCYTES (AUTO) 0.8 10^3/uL (0.1-1.4); ABSOLUTE NEUT (AUTO) 3.6 10^3/uL (1.7-8.2); BASOPHILS % (AUTO) 1.2 % (0-2); EOSINOPHILS % (AUTO) 7.3 % (0-6); HEMATOCRIT 32.7 % (37.9-51.0); HEMOGLOBIN 10.7 g/dL (13.5-17.0); LYMPHOCYTES % (AUTO) 23.3 % (13-45); MEAN CORPUSCULAR HEMOGLOBIN 25.9 pg (27.0-33.4); MEAN CORPUSCULAR HGB CONC 32.7 g/dL (32.0-36.0); MEAN CORPUSCULAR VOLUME 79 fl (80-97); MONOCYTES % (AUTO) 12.7 % (3-13); PLATELET COUNT 200 10^3/uL (150-450); RED BLOOD COUNT 4.12 10^6/uL (4.35-5.55); SEGMENTED NEUTROPHILS % (AUTO) 55.5 % (42-78); TOTAL CELLS COUNTED % (AUTO) 100 %; WHITE BLOOD COUNT 6.4 10^3/uL (4.0-10.5)
[2019-01-19 06:45] LABS: ALANINE AMINOTRANSFERASE 41 U/L (21-72); ALBUMIN 3.3 g/dL (3.5-5.0); ALKALINE PHOSPHATASE 146 U/L (38-126); ANION GAP 10 (5-19); ASPARTATE AMINO TRANSFERASE 51 U/L (17-59); BILIRUBIN,DIRECT 0.3 mg/dL (0.0-0.4); BILIRUBIN,TOTAL 0.5 mg/dL (0.2-1.3); BLOOD UREA NITROGEN 20 mg/dL (7-20); CALCIUM 8.3 mg/dL (8.4-10.2); CARBON DIOXIDE 25 mmol/L (22-30); CHLORIDE 102 mmol/L (98-107); GLUCOSE 97 mg/dL (75-110); POTASSIUM 4.5 mmol/L (3.6-5.0); SODIUM 137.4 mmol/L (137-145); TOTAL PROTEIN 6.4 g/dL (6.3-8.2)
[2019-01-19] MEDS: FUROSEMIDE 20 MG TABLET PO SCH (08:00)
[2019-01-19] MEDS: BUDESONIDE NEB 0.5 MG/2 ML AMPUL NEB SCH ×2 (09:25→19:47)
[2019-01-19] MEDS ORDERED: TAMSULOSIN HCL 0.4 MG CAP.SR.24H PO ONE (10:30)
--- NOTE | 2019-01-19 10:31 | RADIOLOGY REPORT (SQ) ---
EXAM DESCRIPTION: CHEST SINGLE VIEW COMPLETED DATE/TIME: 01/19/2019 10:19 am REASON FOR STUDY: reassess pleural effusion COMPARISON: 01/18/2019 EXAM PARAMETERS: NUMBER OF VIEWS: One view. TECHNIQUE: Single frontal radiographic view of the chest acquired. RADIATION DOSE: NA LIMITATIONS: None. FINDINGS: LUNGS AND PLEURA: No focal airspace disease or pneumothorax. Stable small bilateral effus ions. MEDIASTINUM AND HILAR STRUCTURES: No masses. Contour normal. HEART AND VASCULAR STRUCTURES: Enlarged cardiac silhouette, stable. Aortic atherosclerosis. BONES: No acute findings. Evidence of prior left clavicular plate and screw fixation. HARDWARE: None in the chest. OTHER: Prior cholecystectomy. IMPRESSION: Stable small bilateral effusions with mild left retrocardiac opacity, likely atelectasis . Stable enlarged cardiac silhouette. TECHNICAL DOCUMENTATION: JOB ID: [id number] [employer]- All Rights Reserved Reading location - IP/workstation name: [email or web address]
[2019-01-19] MEDS: LOSARTAN POTASSIUM 25 MG TABLET PO SCH (11:21)
[2019-01-19] MEDS: METOPROLOL SUCCINATE 25 MG TAB.SR.24H PO SCH (11:22)
[2019-01-19] MEDS: FLUTICASONE/VILANTEROL 200-25 MCG/DOSE IH SCH (11:30)
[2019-01-19] MEDS: AMMONIUM LACTATE 12% LOTION 225GM BOTTLE TP SCH ×2 (11:49→18:42)
[2019-01-19] MEDS: DOCUSATE SODIUM 100 MG CAPSULE PO SCH ×2 (11:52→18:43)
[2019-01-19] MEDS: FOLIC ACID 1 MG TABLET PO SCH (11:52)
[2019-01-19] MEDS: MIDODRINE HCL 5 MG TABLET PO SCH ×3 (11:52→20:03)
[2019-01-19] MEDS: FAMOTIDINE 20 MG TABLET PO SCH ×2 (11:53→21:34)
[2019-01-19] MEDS: LEVALBUTEROL HCL NEB 0.63 MG/3 ML AMPUL NEB PRN (11:58)
--- NOTE | 2019-01-19 15:21 | PDOC PROGRESS REPORT ---
Subjective Progress Note for:: 01/19/19 Subjective:: This is a 68 yr old male with a PMH of CHF with severely low EF (<20%), CAD, DM 2, COPD and hypothyroidism who was recently admitted and discharged 4 days ago for CHF exacerbation. He presented again to the ER with increasing SOB and was readmitted for CHF exacerbation. He claims he cannot afford his medications and was not able to get them filled. No acute event overnight. He says his SOB has improved today. Denies chest pain. Reason For Visit: ACUTE EXACERBATION OF CHRONIC SYSTOLIC CONGESTIVE Physical Exam Vital Signs: Temp Pulse Resp BP Pulse Ox 97.4 F 77 16 93/73 L 97 01/19/19 04:00 01/19/19 11:58 01/19/19 11:58 01/19/19 04:00 01/19/19 11:58 Intake & Output 01/18/19 01/19/19 01/20/19 06:59 06:59 06:59 Intake Total 500 Balance 500 Weight 167 lb 8.821 oz 161 lb 13.109 oz General appearance: PRESENT: no acute distress, well-developed, well-nourished Head exam: PRESENT: atraumatic, normocephalic Eye exam: PRESENT: conjunctiva pink, EOMI, PERRLA. ABSENT: scleral icterus Ear exam: PRESENT: normal external ear exam Mouth exam: PRESENT: moist, tongue midline Neck exam: ABSENT: carotid bruit, JVD, lymphadenopathy, thyromegaly Respiratory exam: PRESENT: rhonchi. ABSENT: rales, wheezes Cardiovascular exam: PRESENT: RRR, systolic murmur. ABSENT: rubs Pulses: PRESENT: normal dorsalis pedis pul GI/Abdominal exam: PRESENT: normal bowel sounds, soft. ABSENT: distended, guarding, mass, organolmegaly, rebound, tenderness Rectal exam: PRESENT: deferred Extremities exam: PRESENT: +1 edema Neurological exam: PRESENT: alert, awake, oriented to person, oriented to place, oriented to time, oriented to situation, CN II-XII grossly intact. ABSENT: motor sensory deficit Results Laboratory Results: 01/19/19 06:00 01/19/19 06:00 01/19/19 01/19/19 06:00 06:00 WBC 6.4 RBC 4.12 L Hgb 10.7 L Hct 32.7 L MCV 79 L MCH 25.9 L MCHC 32.7 RDW 16.0 H Plt Count 200 Seg Neutrophils % 55.5 Lymphocytes % 23.3 Monocytes % 12.7 Eosinophils % 7.3 H Basophils % 1.2 Absolute Neutrophils 3.6 Absolute Lymphocytes 1.5 Absolute Monocytes 0.8 Absolute Eosinophils 0.5 Absolute Basophils 0.1 Sodium 137.4 Potassium 4.5 Chloride 102 Carbon Dioxide 25 Anion Gap 10 BUN 20 Creatinine 0.97 Est GFR ( Amer) > 60 Est GFR (Non-Af Amer) > 60 Glucose 97 Calcium 8.3 L Magnesium 1.9 Total Bilirubin 0.5 AST 51 ALT 41 Alkaline Phosphatase 146 H Total Protein 6.4 Albumin 3.3 L 01/18/19 01/18/19 01/18/19 02:45 02:45 02:45 Creatine Kinase 36 L CK-MB (CK-2) 1.80 Troponin I 0.044 Cancelled NT-Pro-B Natriuret Pep 8210 H 01/18/19 01/18/19 01/18/19 08:33 08:33 15:11 Creatine Kinase 38 L 38 L CK-MB (CK-2) 1.82 Troponin I 0.041 NT-Pro-B Natriuret Pep 01/18/19 01/19/19 15:11 06:00 Creatine Kinase CK-MB (CK-2) 1.48 Troponin I 0.041 NT-Pro-B Natriuret Pep 7750 H Impressions: Chest/Abdomen CTA 01/18/19 00:00 IMPRESSION: There is no evidence of pulmonary embolus. No aortic aneurysm or d issection. Bilateral pleural effusions with mild associated atelectasis in the lower lobes. Small pericardial effusion. Chest X-Ray 01/19/19 09:25 IMPRESSION: Stable small bilateral effusions with mild left retrocardiac opacity, likely atelectasis. Stable enlarged cardiac silhouette. Assessment and Plan - Diagnosis (1) CHF exacerbation Qualifiers: Heart failure type: unspecified Qualified Code(s): I50.9 - Heart failure, unspecified Is this a current diagnosis for this admission?: Yes Plan: Secondary to noncompliance. Recent echo showed EF of <20%. Continue Lasix, losartan and lopressor. (2) CAD (coronary artery disease) Is this a current diagnosis for this admission?: Yes Plan: Stable. Continue (3) COPD (chronic obstructive pulmonary disease) Qualifiers: COPD type: unspecified COPD Qualified Code(s): J44.9 - Chronic obstructive pulmonary disease, unspecified Is this a current diagnosis for this admission?: Yes Plan: Breathing treatments. (4) Cirrhosis Qualifiers: Hepatic cirrhosis type: alcoholic cirrhosis Is this a current diagnosis for this admission?: Yes
[2019-01-19] MEDS: TRAMADOL HCL 50 MG TABLET PO PRN (20:09)
[2019-01-19] MEDS: SIMVASTATIN 40 MG TABLET PO SCH (21:33)
[2019-01-20] MEDS: LEVALBUTEROL HCL NEB 1.25 MG/3 ML AMPUL NEB SCH ×2 (00:16→07:34)
[2019-01-20] MEDS: IPRATROPIUM BROMIDE 0.02% NEB 0.5 MG/2.5 ML AMPUL NEB SCH ×2 (00:16→07:34)
[2019-01-20] MEDS: OXYCODONE HCL SR 10 MG TABLET PO SCH ×2 (05:19→14:45)
[2019-01-20] MEDS: GABAPENTIN 300 MG CAPSULE PO SCH ×3 (05:19→21:17)
[2019-01-20] MEDS: HEPARIN SOD (PORCINE) 5,000 UNIT/ML 1 ML SYRINGE SUBCUT SCH ×3 (05:19→21:16)
[2019-01-20 06:54] LABS: HEMATOCRIT 30.6 % (37.9-51.0); HEMOGLOBIN 9.9 g/dL (13.5-17.0); MEAN CORPUSCULAR HGB CONC 32.5 g/dL (32.0-36.0); MEAN CORPUSCULAR VOLUME 80 fl (80-97); PLATELET COUNT 160 10^3/uL (150-450); RED BLOOD COUNT 3.83 10^6/uL (4.35-5.55); RED CELL DISTRIBUTION WIDTH 16.1 % (11.5-14.0); WHITE BLOOD COUNT 7.9 10^3/uL (4.0-10.5)
[2019-01-20 07:22] LABS: ANION GAP 11 (5-19); BLOOD UREA NITROGEN 23 mg/dL (7-20); CALCIUM 8.1 mg/dL (8.4-10.2); CARBON DIOXIDE 23 mmol/L (22-30); CHLORIDE 101 mmol/L (98-107); GLUCOSE 89 mg/dL (75-110); POTASSIUM 4.2 mmol/L (3.6-5.0); SODIUM 135.1 mmol/L (137-145)
[2019-01-20] MEDS: BUDESONIDE NEB 0.5 MG/2 ML AMPUL NEB SCH ×2 (07:34→20:28)
[2019-01-20] MEDS: ASPIRIN 81 MG TABLET, CHEWABLE PO SCH (09:57)
[2019-01-20] MEDS: LOSARTAN POTASSIUM 25 MG TABLET PO SCH (09:57)
[2019-01-20] MEDS: FOLIC ACID 1 MG TABLET PO SCH (09:57)
[2019-01-20] MEDS: DOCUSATE SODIUM 100 MG CAPSULE PO SCH ×2 (09:57→18:20)
[2019-01-20] MEDS: FAMOTIDINE 20 MG TABLET PO SCH ×2 (09:57→21:17)
[2019-01-20] MEDS: FLUTICASONE/VILANTEROL 200-25 MCG/DOSE IH SCH (09:57)
[2019-01-20] MEDS: FUROSEMIDE 20 MG TABLET PO SCH (10:03)
[2019-01-20] MEDS: MIDODRINE HCL 5 MG TABLET PO SCH ×3 (10:03→18:12)
[2019-01-20] MEDS: CLOTRIMAZOLE 1% CREAM 15 GM TP PRN (10:04)
[2019-01-20] MEDS: METOPROLOL SUCCINATE 25 MG TAB.SR.24H PO SCH (10:04)
[2019-01-20] MEDS: AMMONIUM LACTATE 12% LOTION 225GM BOTTLE TP SCH ×2 (10:05→18:19)
--- NOTE | 2019-01-20 14:45 | PDOC PROGRESS REPORT ---
Subjective Progress Note for:: 01/20/19 Subjective:: This is a 68 yr old male with a PMH of CHF with severely low EF (<20%), CAD, DM 2, COPD and hypothyroidism who was recently admitted and discharged 4 days ago for CHF exacerbation. He presented again to the ER with increasing SOB and was readmitted for CHF exacerbation. He claims he cannot afford his medications and was not able to get them filled. 01/20: No acute event overnight. He says he still feels short of breath today and not at his baseline. He complains of pleuritic chest pain, (bilateral lateral chest wall area) when he takes a deep breath. He is saturating well on room air in bed. Explained he does have bilateral effusions. Discussed if this worsens and he continues to be short of breath, he may need thoracentesis. Explained risks and benefits and patient expressed he does not want to pursue such procedure at this time as he is not amenable to the risk of pneumothorax. Discussed will see if he will improve on diuresis. Reason For Visit: ACUTE EXACERBATION OF CHRONIC SYSTOLIC CONGESTIVE Physical Exam Vital Signs: Temp Pulse Resp BP Pulse Ox 97.6 F 93 16 109/67 98 01/20/19 10:00 01/20/19 10:00 01/20/19 10:00 01/20/19 10:00 01/20/19 10:00 Intake & Output 01/19/19 01/20/19 01/21/19 06:59 06:59 06:59 Intake Total 500 1110 Output Total 880 Balance 500 230 Weight 161 lb 13.109 oz 166 lb 10.711 oz General appearance: PRESENT: no acute distress, well-developed, well-nourished Head exam: PRESENT: atraumatic, normocephalic Eye exam: PRESENT: conjunctiva pink, EOMI, PERRLA. ABSENT: scleral icterus Ear exam: PRESENT: normal external ear exam Mouth exam: PRESENT: moist, tongue midline Neck exam: ABSENT: carotid bruit, JVD, lymphadenopathy, thyromegaly Respiratory exam: PRESENT: decreased breath sounds - bases, rhonchi. ABSENT: rales, wheezes Cardiovascular exam: PRESENT: RRR. ABSENT: diastolic murmur, rubs, systolic murmur Pulses: PRESENT: normal dorsalis pedis pul GI/Abdominal exam: PRESENT: normal bowel sounds, soft. ABSENT: distended, gua rding, mass, organolmegaly, rebound, tenderness Rectal exam: PRESENT: deferred Extremities exam: PRESENT: +1 edema Neurological exam: PRESENT: alert, awake, oriented to person, oriented to place, oriented to time, oriented to situation, CN II-XII grossly intact. ABSENT: motor sensory deficit Results Laboratory Results: 01/20/19 06:25 01/20/19 06:25 01/20/19 01/20/19 06:25 06:25 WBC 7.9 RBC 3.83 L Hgb 9.9 L Hct 30.6 L MCV 80 MCH 26.0 L MCHC 32.5 RDW 16.1 H Plt Count 160 Sodium 135.1 L Potassium 4.2 Chloride 101 Carbon Dioxide 23 Anion Gap 11 BUN 23 H Creatinine 0.86 Est GFR ( Amer) > 60 Est GFR (Non-Af Amer) > 60 Glucose 89 Calcium 8.1 L Magnesium 1.8 01/18/19 01/18/19 01/18/19 02:45 02:45 02:45 Creatine Kinase 36 L CK-MB (CK-2) 1.80 Troponin I 0.044 Cancelled NT-Pro-B Natriuret Pep 8210 H 01/18/19 01/18/19 01/18/19 08:33 08:33 15:11 Creatine Kinase 38 L 38 L CK-MB (CK-2) 1.82 Troponin I 0.041 NT-Pro-B Natriuret Pep 01/18/19 01/19/19 15:11 06:00 Creatine Kinase CK-MB (CK-2) 1.48 Troponin I 0.041 NT-Pro-B Natriuret Pep 7750 H Impressions: Chest/Abdomen CTA 01/18/19 00:00 IMPRESSION: There is no evidence of pulmonary embolus. No aortic aneurysm or dissection. Bilateral pleural effusions with mild associated atelectasis in the lower lobes. Small pericardial effusion. Chest X-Ray 01/19/19 09:25 IMPRESSION: Stable small bilateral effusions with mild left retrocardiac opacity, likely atelectasis. Stable enlarged cardiac silhouette. Assessment and Plan - Diagnosis (1) CHF exacerbation Qualifiers: Heart failure type: unspecified Qualified Code(s): I50.9 - Heart failure, unspecified Is this a current diagnosis for this admission?: Yes Plan: Secondary to noncompliance. Recent echo showed EF of <20%. Continue Lasix, losartan and lopressor. 01/20: He complains of pleuritic chest pain, (bilateral lateral chest wall area) when he takes a deep breath. He is saturating well on room air in bed. Explained he does have bilateral effusions. Discussed if this worsens and he continues to be short of breath, he may need thoracentesis. Explained risks and benefits and patient expressed he does not want to pursue such procedure at this time as he is not amenable to the risk of pneumothorax. Discussed will see if he will improve on diuresis. Blood pressure trends are more permissive. Will increase Lasix to 20 mg q12 IV. (2) CAD (coronary artery disease) Is this a current diagnosis for this admission?: Yes Plan: Stable. Continue aspirin. (3) COPD (chronic obstructive pulmonary disease) Qualifiers: COPD type: unspecified COPD Qualified Code(s): J44.9 - Chronic obstructive pulmonary disease, unspecified Is this a current diagnosis for this admission?: Yes Plan: Breathing treatments as needed. (4) Cirrhosis Qualifiers: Hepatic cirrhosis type: alcoholic cirrhosis Is this a current diagnosis for this admission?: Yes - Time Time Spent with patient: 25-34 minutes
[2019-01-20] MEDS ORDERED: ONDANSETRON HCL INJ/PF 4 MG/2 ML SDV IV PRN (15:30)
[2019-01-20] MEDS: FUROSEMIDE INJ/PF 20 MG/2 ML SDV IV SCH (18:19)
[2019-01-20] MEDS ORDERED: ALBUTEROL SULFATE 0.083% NEB 2.5 MG/3 ML AMPUL NEB SCH (20:00)
[2019-01-20] MEDS: IPRATROPIUM/ALBUTEROL 0.5-2.5 MG/3 ML AMPUL NEB SCH (20:27)
[2019-01-20] MEDS: SIMVASTATIN 10 MG TABLET PO SCH (21:17)
[2019-01-21] MEDS: IPRATROPIUM/ALBUTEROL 0.5-2.5 MG/3 ML AMPUL NEB SCH ×4 (01:52→19:42)
[2019-01-21] MEDS: HEPARIN SOD (PORCINE) 5,000 UNIT/ML 1 ML SYRINGE SUBCUT SCH ×3 (06:01→22:33)
[2019-01-21] MEDS: FUROSEMIDE INJ/PF 20 MG/2 ML SDV IV SCH ×2 (06:01→17:01)
[2019-01-21] MEDS: GABAPENTIN 300 MG CAPSULE PO SCH ×3 (06:02→22:29)
[2019-01-21 07:37] LABS: HEMATOCRIT 32.3 % (37.9-51.0); HEMOGLOBIN 10.6 g/dL (13.5-17.0); MEAN CORPUSCULAR HEMOGLOBIN 25.9 pg (27.0-33.4); MEAN CORPUSCULAR HGB CONC 32.7 g/dL (32.0-36.0); MEAN CORPUSCULAR VOLUME 79 fl (80-97); PLATELET COUNT 162 10^3/uL (150-450); RED BLOOD COUNT 4.09 10^6/uL (4.35-5.55); RED CELL DISTRIBUTION WIDTH 15.9 % (11.5-14.0); WHITE BLOOD COUNT 7.3 10^3/uL (4.0-10.5)
[2019-01-21 07:53] LABS: ANION GAP 11 (5-19); BLOOD UREA NITROGEN 20 mg/dL (7-20); CALCIUM 8.4 mg/dL (8.4-10.2); CARBON DIOXIDE 29 mmol/L (22-30); CHLORIDE 97 mmol/L (98-107); GLUCOSE 116 mg/dL (75-110); SODIUM 136.9 mmol/L (137-145)
[2019-01-21] MEDS: BUDESONIDE NEB 0.5 MG/2 ML AMPUL NEB SCH ×2 (08:22→19:43)
[2019-01-21] MEDS: FOLIC ACID 1 MG TABLET PO SCH (09:49)
[2019-01-21] MEDS: METOPROLOL SUCCINATE 25 MG TAB.SR.24H PO SCH (09:49)
[2019-01-21] MEDS: FAMOTIDINE 20 MG TABLET PO SCH ×2 (09:49→22:29)
[2019-01-21] MEDS: ASPIRIN 81 MG TABLET, CHEWABLE PO SCH (09:49)
[2019-01-21] MEDS: LOSARTAN POTASSIUM 25 MG TABLET PO SCH (09:50)
[2019-01-21] MEDS: MIDODRINE HCL 5 MG TABLET PO SCH ×3 (09:50→17:01)
[2019-01-21] MEDS: DOCUSATE SODIUM 100 MG CAPSULE PO SCH ×2 (09:50→17:01)
[2019-01-21] MEDS: FLUTICASONE/VILANTEROL 200-25 MCG/DOSE IH SCH (09:51)
[2019-01-21] MEDS: CLOTRIMAZOLE 1% CREAM 15 GM TP PRN (09:55)
[2019-01-21] MEDS: AMMONIUM LACTATE 12% LOTION 225GM BOTTLE TP SCH ×2 (09:59→17:08)
--- NOTE | 2019-01-21 13:11 | PDOC PROGRESS REPORT ---
Subjective Progress Note for:: 01/21/19 Subjective:: This is 68 years old male patient with past medical history of chronic systolic heart failure with ejection fraction of 25%/COPD presented with 1 week history of shortness of breath which is worsening progressively. Patient admits that he ran shortness of his medication because he is not able to refill it. [facility]. Patient has been managed with metoprolol succinate, losartan and Lasix. Morning I seen patient resting in bed comfortably. He complains of generalized body weakness. His edema has subsided. I will consult physical therapy to evaluate the patient if he qualifies for rehab. Reason For Visit: ACUTE EXACERBATION OF CHRONIC SYSTOLIC CONGESTIVE Physical Exam Vital Signs: Temp Pulse Resp BP Pulse Ox 97.7 F 78 16 111/67 99 01/21/19 07:26 01/21/19 09:47 01/21/19 08:24 01/21/19 09:47 01/21/19 08:24 Intake & Output 01/20/19 01/21/19 01/22/19 06:59 06:59 06:59 Intake Total 1110 2135 Output Total 880 1650 Balance 230 485 Weight 75.6 kg 75.4 kg General appearance: PRESENT: no acute distress Eye exam: PRESENT: conjunctiva pink Neck exam: ABSENT: carotid bruit, JVD, lymphadenopathy, thyromegaly Respiratory exam: PRESENT: clear to auscultation rossy. ABSENT: rales, rhonchi, wheezes Cardiovascular exam: PRESENT: RRR. ABSENT: diastolic murmur, rubs, systolic [place] Pulses: PRESENT: normal dorsalis pedis pul GI/Abdominal exam: PRESENT: normal bowel sounds, soft. ABSENT: distended, guarding, mass, organolmegaly, rebound, tenderness Neurological exam: PRESENT: alert, awake, oriented to time, oriented to situation Results Laboratory Results: 01/21/19 07:10 01/21/19 07:10 01/21/19 01/21/19 07:10 07:10 WBC 7.3 RBC 4.09 L Hgb 10.6 L Hct 32.3 L MCV 79 L MCH 25.9 L MCHC 32.7 RDW 15.9 H Plt Count 162 Sodium 136.9 L Potassium 4.0 Chloride 97 L Carbon Dioxide 29 Anion Gap 11 BUN 20 Creatinine 0.84 Est GFR ( Amer) > 60 Est GFR (Non-Af Amer) > 60 Glucose 116 H Calcium 8.4 Magnesium 1.6 01/19/19 10:05 Catheterized Urine Urine Culture - Final NO GROWTH 2 DAYS 01/18/19 01/18/19 01/18/19 02:45 02:45 02:45 Creatine Kinase 36 L CK-MB (CK-2) 1.80 Troponin I 0.044 Cancelled NT-Pro-B Natriuret Pep 8210 H 01/18/19 01/18/19 01/18/19 08:33 08:33 15:11 Creatine Kinase 38 L 38 L CK-MB (CK-2) 1.82 Troponin I 0.041 NT-Pro-B Natriuret Pep 01/18/19 01/19/19 15:11 06:00 Creatine Kinase CK-MB (CK-2) 1.48 Troponin I 0.041 NT-Pro-B Natriuret Pep 7750 H Impressions: Chest/Abdomen CTA 01/18/19 00:00 IMPRESSION: There is no evidence of pulmonary embolus. No aortic aneurysm or dissection. Bilateral pleural effusions with mild associated atelectasis in the lower lobes. Small pericardial effusion. Chest X-Ray 01/19/19 09:25 IMPRESSION: Stable small bilateral effusions with mild left retrocardiac opacity, likely atelectasis. Stable enlarged cardiac silhouette. Assessment and Plan - Diagnosis (1) Acute on chronic systolic congestive heart failure, NYHA class 3 Is this a current diagnosis for this admission?: Yes Plan: Continue Lasix, losartan and metoprolol succinate. (2) COPD (chronic obstructive pulmonary disease) Is this a current diagnosis for this admission?: Yes Plan: Continue PRN bronchodilators. (3) Coronary artery disease Qualifiers: Coronary Disease-Associated Artery/Lesion type: [place] artery Is this a current diagnosis for this admission?: Yes (4) Cirrhosis of liver Is this a current diagnosis for this admission?: Yes Plan: Compensated.
[2019-01-21] MEDS: SIMVASTATIN 10 MG TABLET PO SCH (22:28)
[2019-01-21] MEDS: TRAMADOL HCL 50 MG TABLET PO PRN (22:29)
[2019-01-22] MEDS: IPRATROPIUM/ALBUTEROL 0.5-2.5 MG/3 ML AMPUL NEB SCH ×4 (01:56→20:24)
[2019-01-22] MEDS: TEMAZEPAM 15 MG CAPSULE PO PRN (02:05)
[2019-01-22] MEDS: GABAPENTIN 300 MG CAPSULE PO SCH ×3 (06:33→21:28)
[2019-01-22] MEDS: FUROSEMIDE INJ/PF 20 MG/2 ML SDV IV SCH (06:33)
[2019-01-22] MEDS: HEPARIN SOD (PORCINE) 5,000 UNIT/ML 1 ML SYRINGE SUBCUT SCH ×3 (06:33→21:29)
[2019-01-22] MEDS: BUDESONIDE NEB 0.5 MG/2 ML AMPUL NEB SCH ×2 (08:12→20:24)
[2019-01-22] MEDS: DOCUSATE SODIUM 100 MG CAPSULE PO SCH ×2 (09:32→17:47)
[2019-01-22] MEDS: FOLIC ACID 1 MG TABLET PO SCH (09:32)
[2019-01-22] MEDS: ASPIRIN 81 MG TABLET, CHEWABLE PO SCH (09:32)
[2019-01-22] MEDS: FAMOTIDINE 20 MG TABLET PO SCH ×2 (09:32→21:28)
[2019-01-22] MEDS: METOPROLOL SUCCINATE 25 MG TAB.SR.24H PO SCH ×2 (09:32→21:28)
[2019-01-22] MEDS: MIDODRINE HCL 5 MG TABLET PO SCH ×3 (09:33→19:01)
[2019-01-22] MEDS: AMMONIUM LACTATE 12% LOTION 225GM BOTTLE TP SCH ×2 (09:33→19:00)
[2019-01-22] MEDS: FLUTICASONE/VILANTEROL 200-25 MCG/DOSE IH SCH (09:35)
[2019-01-22] MEDS: LOSARTAN POTASSIUM 25 MG TABLET PO SCH (09:38)
[2019-01-22] MEDS ORDERED: LOSARTAN POTASSIUM 25 MG TABLET PO SCH (10:00)
[2019-01-22] MEDS ORDERED: FUROSEMIDE 40 MG TABLET PO SCH ×2 (10:00→18:00)
[2019-01-22] MEDS ORDERED: LOSARTAN POTASSIUM 25 MG TABLET PO ONE (11:00)
[2019-01-22] MEDS: OXYCODONE-ACETAMINOPHEN 5-325 MG TABLET PO PRN ×2 (12:53→19:07)
--- NOTE | 2019-01-22 13:48 | PDOC PROGRESS REPORT ---
Subjective Progress Note for:: 01/22/19 Subjective:: Patient seen while she is resting in bed. He complains of epigastric sharp pain precipitated by deep breathing and it is reproducible. He also complains of generalized body aching. I increase the dose of his Lasix to 40 mg IV twice a day, metoprolol succinate 25 mg twice a day and added for him lisinopril 10 mg daily. Reason For Visit: ACUTE EXACERBATION OF CHRONIC SYSTOLIC CONGESTIVE Physical Exam Vital Signs: Temp Pulse Resp BP Pulse Ox 98.1 F 76 16 93/60 L 96 01/22/19 11:15 01/22/19 11:15 01/22/19 11:15 01/22/19 11:15 01/22/19 11:15 Intake & Output 01/21/19 01/22/19 01/23/19 06:59 06:59 06:59 Intake Total 2135 1860 Output Total 1650 3525 Balance 485 -1665 Weight 75.4 kg General appearance: PRESENT: no acute distress Head exam: PRESENT: atraumatic Neck exam: ABSENT: carotid bruit, JVD, lymphadenopathy, thyromegaly Respiratory exam: PRESENT: decreased breath sounds - Bilaterally GI/Abdominal exam: PRESENT: normal bowel sounds, soft. ABSENT: distended, guarding, mass, organolmegaly, rebound, tenderness Results Laboratory Results: 01/21/19 07:10 01/21/19 07:10 01/19/19 10:05 Catheterized Urine Urine Culture - Final NO GROWTH 2 DAYS 01/18/19 01/18/19 01/18/19 02:45 02:45 02:45 Creatine Kinase 36 L CK-MB (CK-2) 1.80 Troponin I 0.044 Cancelled NT-Pro-B Natriuret Pep 8210 H 01/18/19 01/18/19 01/18/19 08:33 08:33 15:11 Creatine Kinase 38 L 38 L CK-MB (CK-2) 1.82 Troponin I 0.041 NT-Pro-B Natriuret Pep 01/18/19 01/19/19 15:11 06:00 Creatine Kinase CK-MB (CK-2) 1.48 Troponin I 0.041 NT-Pro-B Natriuret Pep 7750 H Impressions: Chest/Abdomen CTA 01/18/19 00:00 IMPRESSION: There is no evidence of pulmonary embolus. No aortic aneurysm or dissection. Bilateral pleural effusions with mild associated atelectasis in the lower lobes. Small pericardial effusion. Chest X-Ray 01/19/19 09:25 IMPRESSION: Stable small bilateral effusions with mild left retrocardiac opac ity, likely atelectasis. Stable enlarged cardiac silhouette. Assessment and Plan - Diagnosis (1) Acute on chronic systolic congestive heart failure, NYHA class 3 Is this a current diagnosis for this admission?: Yes Plan: Continue Lasix, losartan and metoprolol succinate. (2) COPD (chronic obstructive pulmonary disease) Is this a current diagnosis for this admission?: Yes Plan: Continue PRN bronchodilators. (3) Coronary artery disease Qualifiers: Coronary Disease-Associated Artery/Lesion type: [place] artery Is this a current diagnosis for this admission?: Yes Plan: No anginal symptoms. (4) Cirrhosis of liver Is this a current diagnosis for this admission?: Yes Plan: Compensated.
[2019-01-22] MEDS: LEVALBUTEROL HCL NEB 0.63 MG/3 ML AMPUL NEB PRN (18:16)
[2019-01-22] MEDS: SIMVASTATIN 10 MG TABLET PO SCH (21:28)
[2019-01-22] MEDS: FUROSEMIDE INJ/PF 40 MG/4 ML SDV IV SCH (21:29)
[2019-01-23] MEDS: OXYCODONE-ACETAMINOPHEN 5-325 MG TABLET PO PRN ×4 (01:58→19:59)
[2019-01-23] MEDS: IPRATROPIUM/ALBUTEROL 0.5-2.5 MG/3 ML AMPUL NEB SCH ×4 (02:11→19:47)
[2019-01-23] MEDS: GABAPENTIN 300 MG CAPSULE PO SCH ×3 (06:43→21:45)
[2019-01-23] MEDS: HEPARIN SOD (PORCINE) 5,000 UNIT/ML 1 ML SYRINGE SUBCUT SCH ×3 (06:44→21:46)
[2019-01-23] MEDS: BUDESONIDE NEB 0.5 MG/2 ML AMPUL NEB SCH ×2 (07:51→19:47)
[2019-01-23] MEDS: MIDODRINE HCL 5 MG TABLET PO SCH ×3 (09:51→17:15)
[2019-01-23] MEDS: FLUTICASONE/VILANTEROL 200-25 MCG/DOSE IH SCH (09:51)
[2019-01-23] MEDS: ASPIRIN 81 MG TABLET, CHEWABLE PO SCH (09:51)
[2019-01-23] MEDS: FAMOTIDINE 20 MG TABLET PO SCH ×2 (09:51→21:45)
[2019-01-23] MEDS: FOLIC ACID 1 MG TABLET PO SCH (09:51)
[2019-01-23] MEDS: LOSARTAN POTASSIUM 50 MG TABLET PO SCH (09:51)
[2019-01-23] MEDS: FUROSEMIDE INJ/PF 40 MG/4 ML SDV IV SCH ×2 (09:52→21:46)
[2019-01-23] MEDS: AMMONIUM LACTATE 12% LOTION 225GM BOTTLE TP SCH ×2 (09:54→17:16)
[2019-01-23] MEDS: METOPROLOL SUCCINATE 25 MG TAB.SR.24H PO SCH ×2 (09:57→21:45)
[2019-01-23] MEDS: DOCUSATE SODIUM 100 MG CAPSULE PO SCH ×2 (09:57→17:05)
[2019-01-23] MEDS ORDERED: LOSARTAN POTASSIUM 50 MG TABLET PO SCH (10:00)
--- NOTE | 2019-01-23 11:25 | PDOC PROGRESS REPORT ---
Subjective Progress Note for:: 01/23/19 Subjective:: I seen patient resting in bed comfortably. He is not in pain or distress. Shortness of breath has been subsiding. His BNP trended from 7000 to 2900. Remains stable patient's potential discharge for tomorrow. Reason For Visit: ACUTE EXACERBATION OF CHRONIC SYSTOLIC CONGESTIVE Physical Exam Vital Signs: Temp Pulse Resp BP Pulse Ox 98.3 F 69 16 101/65 97 01/23/19 07:31 01/23/19 07:53 01/23/19 07:53 01/23/19 07:31 01/23/19 07:53 Intake & Output 01/22/19 01/23/19 01/24/19 06:59 06:59 06:59 Intake Total 1860 1960 Output Total 3525 3275 Balance -1665 -1315 Weight 71.8 kg General appearance: PRESENT: no acute distress Respiratory exam: PRESENT: decreased breath sounds Cardiovascular exam: PRESENT: RRR. ABSENT: diastolic murmur, rubs, systolic murmur Neurological exam: PRESENT: alert, awake, oriented to time, oriented to situation Results Laboratory Results: 01/21/19 07:10 01/21/19 07:10 01/18/19 01/18/19 01/18/19 02:45 02:45 02:45 Creatine Kinase 36 L CK-MB (CK-2) 1.80 Troponin I 0.044 Cancelled NT-Pro-B Natriuret Pep 8210 H 01/18/19 01/18/19 01/18/19 08:33 08:33 15:11 Creatine Kinase 38 L 38 L CK-MB (CK-2) 1.82 Troponin I 0.041 NT-Pro-B Natriuret Pep 01/18/19 01/19/19 01/23/19 15:11 06:00 08:17 Creatine Kinase CK-MB (CK-2) 1.48 Troponin I 0.041 NT-Pro-B Natriuret Pep 7750 H 2900 H Impressions: Chest/Abdomen CTA 01/18/19 00:00 IMPRESSION: There is no evidence of pulmonary embolus. No aortic aneurysm or dissection. Bilateral pleural effusions with mild associated atelectasis in the lower lobes. Small pericardial effusion. Chest X-Ray 01/19/19 09:25 IMPRESSION: Stable small bilateral effusions with mild left retrocardiac opacity, likely atelectasis. Stable enlarged cardiac silhouette. Assessment and Plan - Diagnosis (1) Acute on chronic systolic congestive heart failure, NYHA class 3 Is this a current diagnosis for this admission?: Yes Plan: Continue Lasix, losartan and metoprolol succinate. (2) COPD (chronic obstructive pulmonary disease) Is this a current diagnosis for this admission?: Yes Plan: Continue PRN bronchodilators. (3) Coronary artery disease Qualifiers: Coronary Disease-Associated Artery/Lesion type: [place] artery Is this a current diagnosis for this admission?: Yes Plan: No anginal symptoms. (4) Cirrhosis of liver Is this a current diagnosis for this admission?: Yes Plan: Compensated. (5) Tobacco dependence Is this a current diagnosis for this admission?: Yes Plan: Patient counseled and encouraged to quit smoking.
[2019-01-23] MEDS: SIMVASTATIN 10 MG TABLET PO SCH (21:46)
[2019-01-24] MEDS: TEMAZEPAM 15 MG CAPSULE PO PRN (01:03)
[2019-01-24] MEDS: IPRATROPIUM/ALBUTEROL 0.5-2.5 MG/3 ML AMPUL NEB SCH ×3 (02:14→14:24)
[2019-01-24] MEDS: OXYCODONE-ACETAMINOPHEN 5-325 MG TABLET PO PRN (04:26)
[2019-01-24] MEDS: GABAPENTIN 300 MG CAPSULE PO SCH ×2 (05:48→14:35)
[2019-01-24] MEDS: HEPARIN SOD (PORCINE) 5,000 UNIT/ML 1 ML SYRINGE SUBCUT SCH ×2 (05:48→14:40)
[2019-01-24] MEDS: BUDESONIDE NEB 0.5 MG/2 ML AMPUL NEB SCH (07:48)
--- NOTE | 2019-01-24 09:09 | PDOC DISCHARGE SUMMARY ---
General - Admit/Disc Date/PCP Admission Date/Primary Care Provider: 01/18/19 04:11 Discharge Date: 01/24/19 - Discharge Diagnosis (1) Acute on chronic systolic congestive heart failure, NYHA class 3 Is this a current diagnosis for this admission?: Yes (2) COPD (chronic obstructive pulmonary disease) Is this a current diagnosis for this admission?: Yes (3) Coronary artery disease Is this a current diagnosis for this admission?: Yes (4) Cirrhosis of liver Is this a current diagnosis for this admission?: Yes (5) Tobacco dependence Is this a current diagnosis for this admission?: Yes - Additional Information Resuscitation Status: Full Code Discharge Diet: Cardiac Discharge Activity: Activity As Tolerated Prescriptions: Furosemide [Lasix Inj/Pf 40 mg/4 ml Sdv] 40 mg IV Q12 #30 vial Losartan Potassium [Cozaar 50 mg Tablet] 50 mg PO DAILY #30 tablet Metoprolol Succinate [Toprol Xl 25 mg Tab.sr] 25 mg PO Q12 #60 tab.sr.24h Spironolactone [Aldactone 25 mg Tablet] 25 mg PO DAILY #30 tablet Home Medications: Albuterol Sulfate [Proair HFA Inhalation Aerosol 8.5 gm MDI] 2 puff IH Q4HP PRN 01/18/19 Ammonium Lactate [Lac-Hydrin 12% Lotion 225Gm/Bottle] 1 applic TOP BID 01/18/19 Budesonide/Formoterol Fumarate [Symbicort HFA 160-4.5 mcg Inhaler 6 gm] 2 puff IH Q12 01/18/19 Cyanocobalamin (Vitamin B-12) [Vitamin B-12 Inj 1000 Mcg/1 ml Vial] 1 ml IM .MONTHLY 01/18/19 Gabapentin [Neurontin 300 mg Capsule] 1,200 mg PO Q8 01/18/19 Ibuprofen [Motrin 800 mg Tablet] 800 mg PO TID 01/18/19 Ketoconazole 1 applic TOP TIDP PRN 01/18/19 Simvastatin [Zocor 40 mg Tablet] 20 mg PO QHS 01/18/19 Tramadol HCl [Ultram 50 mg Tablet] 100 mg PO Q8HP PRN 01/18/19 Cefpodoxime Proxetil [Vantin 200 mg Tablet] 200 mg PO Q12 01/20/19 Furosemide [Lasix] 20 mg PO QAM 01/20/19 Losartan Potassium [Cozaar 25 mg Tablet] 25 mg PO DAILY 01/20/19 Metoprolol Succinate [Toprol Xl 25 mg Tab.sr] 25 mg PO DAILY 01/20/19 Midodrine HCl 10 mg PO TID 01/20/19 Nicotine [Nicoderm 14 mg/24 Hr Transdermal Patch] 1 patch TD DAILY 01/20/19 Folic Acid [Folvite 1 mg Tablet] 1 mg PO DAILY tablet 01/24/19 Furosemide [Lasix Inj/Pf 40 mg/4 ml Sdv] 40 mg IV Q12 #30 vial 01/24/19 Losartan Potassium [Cozaar 50 mg Tablet] 50 mg PO DAILY #30 tablet 01/24/19 Metoprolol Succinate [Toprol Xl 25 mg Tab.sr] 25 mg PO Q12 #60 tab.sr.24h 01/24/19 Spironolactone [Aldactone 25 mg Tablet] 25 mg PO DAILY #30 tablet 01/24/19 History of Present Illness History of Present Illness: DURAN TELLES is a 68 year old male Hospital Course Hospital Course: This is 68 years old male patient with past medical history of chronic systolic heart failure with ejection fraction of 25%/COPD presented with 1 week history of shortness of breath which is worsening progressively. Patient admits that he ran shortness of his medication because he is not able to refill it. [facility] Patient has been managed with metoprolol succinate, losartan and Lasix. Morning I seen patient resting in bed comfortably. He complains of generalized body weakness. His edema has subsided. His BNP is trending down. Patient eats well and tolerates well. He does not have any nausea vomiting or fever. His vital signs blood works are unremarkable. Patient is stable enough to go home today. Since patient states that he could not afford to buy his cardiac medications, I will consult discharge planning if they can help him. Patient advised to see his primary care physician in 1 week. Physical Exam Vital Signs: Temp Pulse Resp BP Pulse Ox 97.6 F 61 18 107/56 L 95 01/24/19 07:00 01/24/19 07:50 01/24/19 07:50 01/24/19 07:00 01/24/19 07:50 Intake & Output 01/23/19 01/24/19 01/25/19 06:59 06:59 06:59 Intake Total 1960 1700 Output Total 3275 1400 Balance -1315 300 Weight 71.8 kg 70.2 kg General appearance: PRESENT: no acute distress Head exam: PRESENT: atraumatic Eye exam: PRESENT: conjunctiva pink Neck exam: ABSENT: carotid bruit, JVD, lymphadenopathy, thyromegaly Respiratory exam: PRESENT: clear to auscultation rossy. ABSENT: rales, rhonchi, wheezes Cardiovascular exam: PRESENT: RRR. ABSENT: diastolic murmur, rubs, systolic murmur GI/Abdominal exam: PRESENT: ascites Neurological exam: PRESENT: alert, awake, oriented to time, oriented to situation Results Laboratory Results: 01/21/19 07:10 01/21/19 07:10 01/18/19 01/18/19 01/18/19 02:45 02:45 02:45 Creatine Kinase 36 L CK-MB (CK-2) 1.80 Troponin I 0.044 Cancelled NT-Pro-B Natriuret Pep 8210 H 01/18/19 01/18/19 01/18/19 08:33 08:33 15:11 Creatine Kinase 38 L 38 L CK-MB (CK-2) 1.82 Troponin I 0.041 NT-Pro-B Natriuret Pep 01/18/19 01/19/19 01/23/19 15:11 06:00 08:17 Creatine Kinase CK-MB (CK-2) 1.48 Troponin I 0.041 NT-Pro-B Natriuret Pep 7750 H 2900 H Impressions: Chest/Abdomen CTA 01/18/19 00:00 IMPRESSION: There is no evidence of pulmonary embolus. No aortic aneurysm or dissection. Bilateral pleural effusions with mild associated atelectasis in the lower lobes. Small pericardial effusion. Chest X-Ray 01/19/19 09:25 IMPRESSION: Stable small bilateral effusions with mild left retrocardiac opacity, likely atelectasis. Stable enlarged cardiac silhouette. Qualifiers - * PATIENT BEING DISCHARGED WITH ANY OF THE FOLLOWING DIAGNOSIS: No Acute Heart Failure Is this a Heart Failure Patient?: Yes Documentation of LVEF assessment?: Yes a) Discharged on ACEI?: N/A Discharged on ARB Reason(s) not discharge on ACEI: other - He is on ARB b) Discharges on ARB?: Yes Reason(s) not discharged on ARNI: ACEI use within the prior 36 hours e) For LVEF <35%, discharged on Aldosterone antagonist?: Yes Follow-up Appointment scheduled within 7 days?: Yes
[2019-01-24] MEDS: FUROSEMIDE INJ/PF 40 MG/4 ML SDV IV SCH (11:19)
[2019-01-24] MEDS: METOPROLOL SUCCINATE 25 MG TAB.SR.24H PO SCH (11:19)
[2019-01-24] MEDS: FOLIC ACID 1 MG TABLET PO SCH (11:19)
[2019-01-24] MEDS: FLUTICASONE/VILANTEROL 200-25 MCG/DOSE IH SCH (11:20)
[2019-01-24] MEDS: FAMOTIDINE 20 MG TABLET PO SCH (11:20)
[2019-01-24] MEDS: ASPIRIN 81 MG TABLET, CHEWABLE PO SCH (11:20)
[2019-01-24] MEDS: MIDODRINE HCL 5 MG TABLET PO SCH (11:20)
[2019-01-24] MEDS: DOCUSATE SODIUM 100 MG CAPSULE PO SCH (11:28)
[2019-01-24] MEDS: LOSARTAN POTASSIUM 50 MG TABLET PO SCH (11:28)
[2019-01-24] MEDS: AMMONIUM LACTATE 12% LOTION 225GM BOTTLE TP SCH (11:29)
[2019-01-24 12:01] VITALS: BP 99/57
== END 2019-01-24 15:00 | disposition home or self-care (01) | DRG 293 ==
LOC: ER 02:23 → EH 04:11 → ICU 06:25 → 3W 20:54 → 4W 01-20 23:20 → 4N 01-21 16:55
PROVIDERS: ADMIT Emergency Medicine; ATTEND Emergency Medicine
PROC: 3E0F73Z Introduction of Anti-inflammatory into Respiratory Tract, Via Natural or Artificial Opening (ICD-10-PCS; principal; 2019-01-18)
DX: I50.23 Acute on chronic systolic (congestive) heart failure (principal); J44.9 Chronic obstructive pulmonary disease, unspecified; I25.10 Atherosclerotic heart disease of native coronary artery without angina pectoris; E11.9 Type 2 diabetes mellitus without complications; E03.9 Hypothyroidism, unspecified; F17.200 Nicotine dependence, unspecified, uncomplicated; F10.20 Alcohol dependence, uncomplicated; K70.30 Alcoholic cirrhosis of liver without ascites; Z79.899 Other long term (current) drug therapy; Z98.84 Bariatric surgery status; Z88.3 Allergy status to other anti-infective agents; Z88.0 Allergy status to penicillin; Z88.8 Allergy status to other drugs, medicaments and biological substances; Z79.82 Long term (current) use of aspirin; Z83.6 Family history of other diseases of the respiratory system; Z82.49 Family history of ischemic heart disease and other diseases of the circulatory system
CPT/HCPCS: 36415; 71045; 71275; 80048; 80053; 82550; 82553; 83735; 83880; 84484; 85025; 85027; 85610; 87086; 93005; 93010; 99285; J1644; J1940; J2405; J3420; J3490; J7614; J7620

== ENCOUNTER 2019-05-23 04:04 | Inpatient (IN) | payer OTHER, MEDICARE ==
[2019-05-23] MEDS ORDERED: IPRATROPIUM/ALBUTEROL 0.5-2.5 MG/3 ML AMPUL NEB ONE (04:34)
--- NOTE | 2019-05-23 04:34 | ER Document Report ---
ED Respiratory Problem - General Chief Complaint: Shortness Of Breath Stated Complaint: SHORTNESS OF BREATH Time Seen by Provider: 05/23/19 04:29 Primary Care Provider: PETERSON,KELLIE [Primary Care Provider] - Follow up as needed Notes: Patient is a 69-year-old male that comes emergency department for chief complaint of difficulty breathing. He states that over the past 5 days he has progressively worsened, he states he does have wheezing but he also has no ability to lie flat now and he becomes very short of breath with any exertion. In addition to this his lower extremities have become very swollen. He does report both a history of CHF and history of COPD with continued smoking. He is not on home oxygen. He comes from home by EMS, was given a DuoNeb and Solu- Medrol in route. He denies fever. He denies chest pain. TRAVEL OUTSIDE OF THE [place] IN LAST 30 DAYS: No - Related Data Allergies/Adverse Reactions: azithromycin Allergy (Verified 05/06/18 14:51) ketorolac [From Toradol] Allergy (Verified 05/06/18 14:51) Penicillins Allergy (Verified 05/06/18 14:51) Past Medical History - General Information source: Patient - Social History Smoking Status: Current Every Day Smoker Chew tobacco use (# tins/day): No Smoking Education Provided: Yes - <3 min Frequency of alcohol use: None Drug Abuse: None Lives with: Friend Family History: CAD, COPD, Hypertension Patient has suicidal ideation: No Patient has homicidal ideation: No - Past Medical History Cardiac Medical History: Reports: Hx Congestive Heart Failure - Chronic systolic congestive heart failure with ejection fraction of 25% Denies: Hx Atrial Fibrillation, Hx Coronary Artery Disease, Hx Hypercholesterolemia, Hx Hypertension Pulmonary Medical History: Reports: Hx Asthma, Hx Bronchitis, Hx COPD Neurological Medical History: Denies: Hx Seizures Endocrine Medical History: Denies: Hx Diabetes Mellitus Type 1, Hx Diabetes Mellitus Type 2, Hx Hyperthyroidism, Hx Hypothyroidism Renal/ Medical History: Denies: Hx Peritoneal Dialysis GI Medical History: Denies: Hx Cirrhosis, Hx Hepatitis Musculoskeletal Medical History: Denies Hx Arthritis, Denies Hx Gout Skin Medical History: Denies Hx Eczema, Denies Hx Psoriasis Infectious Medical History: Denies: Hx Hepatitis Past Surgical History: Reports: Hx Gastric Bypass Surgery - Immunizations Immunizations up to date: Yes Hx Diphtheria, Pertussis, Tetanus Vaccination: Yes Review of Systems - Review of Systems Constitutional: No symptoms reported EENT: No symptoms reported Cardiovascular: See HPI Respiratory: See HPI Gastrointestinal: No symptoms reported Genitourinary: No symptoms reported Male Genitourinary: No symptoms reported Musculoskeletal: No symptoms reported Skin: No symptoms reported Hematologic/Lymphatic: No symptoms reported Neurological/Psychological: No symptoms reported Physical Exam - Vital signs Vitals: Temp Pulse Resp BP 97.6 F 96 19 116/75 05/23/19 04:05 05/23/19 04:05 05/23/19 04:05 05/23/19 04:05 - Notes Notes: GENERAL: Alert, interacts well. No acute distress. HEAD: Normocephalic, atraumatic. EYES: Pupils equal, round, and reactive to light. Extraocular movements intact. ENT: Oral mucosa moist, tongue midline. Oropharynx unremarkable. Airway patent. NECK: Full range of motion. Supple. Trachea midline. LUNGS: Scattered expiratory wheezes, obvious rales noted in both lung bases. No labored breathing or tachypnea. HEART: Regular rate and rhythm. ABDOMEN: Soft, non-tender. Non-distended. EXTREMITIES: Moves all 4 extremities spontaneously. 3+ pitting edema bilaterally. Sensation and cap refill distally intact. BACK: no cervical, thoracic, lumbar midline tenderness. NEUROLOGICAL: Alert and oriented x3. Normal speech. Cranial nerves II through XII grossly intact. PSYCH: Normal affect, normal mood. SKIN: Warm, dry, normal turgor. No rashes or lesions noted. Course - Re-evaluation Re-evalutation: On initial evaluation patient has scattered expiratory wheezes, he has obvious rales bilaterally in the lower lung [place]. He has 3+ pitting edema bilaterally as well. He is not hypoxic or in respiratory distress however. Chest x-ray showing pleural effusion, possible consolidation although patient's presentation is more consistent with this being vascular congestion. He does not have coughing on my exam, he does not have fever, no leukocytosis on his CBC. Chemistry generally unremarkable. Troponin is indeterminate. BNP is greater than 5000 which is increased from previous evaluation. Giving patient Lasix. Discussed with patient. He states he gets so out of breath on ambulation that he is worried about going home, in addition to this patient really can barely stand because of his severe lower extremity edema. His wheezing did resolve after DuoNeb's. Patient will be discussed with hospitalist for admission for dyspnea on exertion, lower extremity edema, acute on chronic CHF exacerbation, COPD exacerbation. 05/23/19 07:30 Discussed with Juan Muir PA-C, patient accepted to telemetry full admission. - Vital Signs Vital signs: Temp Pulse Resp BP Pulse Ox 97.6 F 96 18 123/86 H 99 05/23/19 04:05 05/23/19 04:05 05/23/19 06:01 05/23/19 06:01 05/23/19 05:01 - Laboratory Result Diagrams: 05/23/19 05:23 05/23/19 05:23 Laboratory results interpreted by me: 05/23/19 05/23/19 05/23/19 05:23 05:23 05:23 RBC 3.62 L Hgb 10.1 L Hct 30.1 L RDW 15.2 H PT 16.8 H Sodium 136.6 L BUN 21 H Glucose 112 H Direct Bilirubin 0.7 H AST 68 H Alkaline Phosphatase 156 H NT-Pro-B Natriuret Pep Urine Protein Urine Urobilinogen 05/23/19 05/23/19 05:23 05:23 RBC Hgb Hct RDW PT Sodium BUN Glucose Direct Bilirubin AST Alkaline Phosphatase NT-Pro-B Natriuret Pep 5910 H Urine Protein 30 H Urine Urobilinogen 4.0 H Discharge - Discharge Clinical Impression: Pulmonary vascular congestion, Bilateral lower extremity edema, Wheezing, COPD exacerbation, Tobacco abuse, Dyspnea on exertion Condition: Stable Disposition: ADMITTED INPATIENT Admitting Provider: Juan Muir PA-C Unit Admitted: Telemetry [facility] - Follow up as needed
[2019-05-23 05:39] LABS: VENOUS BLOOD BASE EXCESS -2.5 mmol/L; VENOUS BLOOD HCO3 22.9 mmol/L (20-32); VENOUS BLOOD PCO2 41.6 mmHg (35-63); VENOUS BLOOD PH 7.36 (7.30-7.42)
[2019-05-23 05:40] LABS: APPEARANCE,URINE CLEAR; BILIRUBIN,URINE NEGATIVE (NEGATIVE); COLOR,URINE YELLOW; GLUCOSE, URINE NEGATIVE (NEGATIVE); KETONES,URINE NEGATIVE (NEGATIVE); LEUKOCYTE ESTERASE,URINE NEGATIVE (NEGATIVE); NITRITE,URINE NEGATIVE (NEGATIVE); PROTEIN,URINE 30 mg/dL (NEGATIVE); URINE SPECIFIC GRAVITY 1.023
[2019-05-23 05:41] LABS: ABSOLUTE BASOPHILS # (AUTO) 0.1 10^3/uL (0.0-0.2); ABSOLUTE EOSINOPHILS # (AUTO) 0.3 10^3/uL (0.0-0.6); ABSOLUTE LYMPHOCYTES (AUTO) 0.9 10^3/uL (0.5-4.7); ABSOLUTE MONOCYTES (AUTO) 0.4 10^3/uL (0.1-1.4); ABSOLUTE NEUT (AUTO) 4.5 10^3/uL (1.7-8.2); BASOPHILS % (AUTO) 1.9 % (0-2); EOSINOPHILS % (AUTO) 4.6 % (0-6); HEMATOCRIT 30.1 % (37.9-51.0); HEMOGLOBIN 10.1 g/dL (13.5-17.0); LYMPHOCYTES % (AUTO) 14.7 % (13-45); MEAN CORPUSCULAR HEMOGLOBIN 27.8 pg (27.0-33.4); MEAN CORPUSCULAR HGB CONC 33.5 g/dL (32.0-36.0); MEAN CORPUSCULAR VOLUME 83 fl (80-97); MONOCYTES % (AUTO) 5.7 % (3-13); PLATELET COUNT 180 10^3/uL (150-450); RED BLOOD COUNT 3.62 10^6/uL (4.35-5.55); RED CELL DISTRIBUTION WIDTH 15.2 % (11.5-14.0); SEGMENTED NEUTROPHILS % (AUTO) 73.1 % (42-78); TOTAL CELLS COUNTED % (AUTO) 100 %; WHITE BLOOD COUNT 6.2 10^3/uL (4.0-10.5)
[2019-05-23 05:42] LABS: INTERNATIONAL RATION (INR) 1.35; PROTHROMBIN TIME 16.8 SEC (11.4-15.4)
[2019-05-23 05:58] LABS: ALBUMIN 3.5 g/dL (3.5-5.0); ALKALINE PHOSPHATASE 156 U/L (38-126); ANION GAP 10 (5-19); ASPARTATE AMINO TRANSFERASE 68 U/L (17-59); BILIRUBIN,DIRECT 0.7 mg/dL (0.0-0.4); BILIRUBIN,TOTAL 1.1 mg/dL (0.2-1.3); BLOOD UREA NITROGEN 21 mg/dL (7-20); CALCIUM 8.4 mg/dL (8.4-10.2); CARBON DIOXIDE 23 mmol/L (22-30); CHLORIDE 104 mmol/L (98-107); GLUCOSE 112 mg/dL (75-110); POTASSIUM 3.8 mmol/L (3.6-5.0); TOTAL PROTEIN 7.4 g/dL (6.3-8.2)
[2019-05-23 06:09] LABS: TROPONIN I 0.028 ng/mL
[2019-05-23] MEDS ORDERED: FUROSEMIDE INJ/PF 40 MG/4 ML SDV IV ONE (06:15)
--- NOTE | 2019-05-23 06:32 | RADIOLOGY REPORT (SQ) ---
EXAM DESCRIPTION: XR CHEST 2 VIEWS COMPLETED DATE/TME: 05/23/2019 04:23 CLINICAL HISTORY: 69 years, Male, SOB COMPARISON: 01/19/2019 chest NUMBER OF VIEWS: 2 TECHNIQUE: 2 view chest LIMITATIONS: None. FINDINGS: Stable cardiomegaly. COPD. Small left pleural effusion with adjacent airspace opacity. No pneumothorax IMPRESSION: Cardiomegaly. COPD. Small left pleural effusion with adjacent airspace opacity. copyright 2010 [employer]- All Rights Reserved
--- NOTE | 2019-05-23 07:57 | EKG REPORT ---
SEVERITY:- ABNORMAL ECG - SINUS RHYTHM ATRIAL PREMATURE COMPLEX PROBABLE LEFT ATRIAL ABNORMALITY NONSPECIFIC T ABNORMALITIES, ANT-LAT LEADS : Confirmed by: Mary Man 23-May-2019 07:56:16
[2019-05-23] MEDS ORDERED: ONDANSETRON HCL INJ/PF 4 MG/2 ML SDV IV PRN (08:56)
[2019-05-23] MEDS ORDERED: MAGNESIUM HYDROXIDE SUSP 30 ML UDCUP PO PRN (08:56)
[2019-05-23] MEDS ORDERED: ZOLPIDEM TARTRATE 5 MG TABLET PO PRN (08:56)
[2019-05-23] MEDS ORDERED: IPRATROPIUM/ALBUTEROL 0.5-2.5 MG/3 ML AMPUL NEB PRN (08:56)
[2019-05-23] MEDS ORDERED: ONDANSETRON 4 MG TAB.RAPDIS PO PRN (08:56)
[2019-05-23] MEDS ORDERED: ACETAMINOPHEN 325 MG TABLET PO PRN (08:56)
[2019-05-23] MEDS ORDERED: TRAMADOL HCL 50 MG TABLET PO PRN (09:07)
--- NOTE | 2019-05-23 09:23 | PDOC H&P ---
History of Present Illness Admission Date/PCP: 05/23/19 07:48 [facility] Patient is admitted today for day history of worsening shortness of breath. Patient states he has been getting short of breath now for at least 5 days. Patient states his been out of his medication for at least 10 days. Patient says is not supposed to get his medicine until the of this month which is another 11 days. Patient states that his edema in his feet and legs is gotten much worse in the last 5 days also, to the point where it is painful to walk. Patient has a history of CHF and was in the hospital back in January of this year with a BNP of 7750, and then a month before that with a BNP of 4620 Today it is BNP is 5910. patient is chest x-ray today shows cardiomegaly and COPD with a small left-sided pleural effusion with adjacent airspace opacity Patient will be treated as a CHF exacerbation with no sign of infection at this time History of Present Illness: DURAN TELLES is a 69 year old male see the note dictated above Past Medical History Cardiac Medical History: Reports: Congestive Heart Failure - Chronic systolic congestive heart failure with ejection fraction of 25%, Myocardial Infarction Denies: Atrial Fibrillation, Coronary Artery Disease, Hyperlipidema, Hypertension Pulmonary Medical History: Reports: Asthma, Bronchitis, Chronic Obstructive Pulmonary Disease (COPD) Neurological Medical History: Denies: Seizures Endocrine Medical History: Denies: Diabetes Mellitus Type 1, Diabetes Mellitus Type 2, Hyperthyroidism, Hypothyroidism GI Medical History: Denies: Cirrhosis, Hepatitis Musculoskeltal Medical History: Denies: Arthritis, Gout Skin Medical History: Denies: Eczema, Psoriasis Hematology: Denies: Anemia Past Surgical History Past Surgical History: Reports: Gastric Bypass Surgery, Other - Gallbladder Social History Lives with: Friend Smoking Status: Current Every Day Smoker Frequency of Alcohol Use: Heavy Hx Recreational Drug Use: No Drugs: None Hx Prescription Drug Abuse: No - Advance Directive Resuscitation Status: Full Code Family History Family History: CAD, COPD, Hypertension Parental Family History Reviewed: No Children Family History Reviewed: No Sibling(s) Family History Reviewed.: No Medication/Allergy Allergies/Adverse Reactions: vancomycin Allergy (Unknown, Verified 05/23/19 09:15) azithromycin Allergy (Verified 05/06/18 14:51) ketorolac [From Toradol] Allergy (Verified 05/06/18 14:51) Penicillins Allergy (Verified 05/06/18 14:51) Review of Systems Constitutional: ABSENT: chills, fever(s), headache(s), weight gain, weight loss Cardiovascular: ABSENT: chest pain, dyspnea on exertion, edema, orthropnea, palpitations Respiratory: PRESENT: dyspnea Integumentary: PRESENT: other - Referral edema Neurological: ABSENT: abnormal gait, abnormal speech, confusion, dizziness, focal weakness, syncope Physical Exam Vital Signs: Temp Pulse Resp BP Pulse Ox 97.6 F 96 16 132/81 H 99 05/23/19 04:05 05/23/19 04:05 05/23/19 08:01 05/23/19 08:01 05/23/19 05:01 Intake & Output 05/22/19 05/23/19 05/24/19 06:59 06:59 06:59 Weight 75 kg General appearance: PRESENT: no acute distress, other - Is resting comfortably in the ER O2 sats percent 2 L nasal cannula Throat exam: PRESENT: tonsillar exudate Respiratory exam: PRESENT: crackles, wheezes - Crackles at both bases only faint wheezes no respiratory distress, other - Basis Cardiovascular exam: PRESENT: RRR. ABSENT: diastolic murmur, rubs, systolic murmur Extremities exam: PRESENT: +2 edema - Pitting edema both lower extremities up to the shins Neurological exam: PRESENT: alert, awake, oriented to person, oriented to place, oriented to time, oriented to situation, CN II-XII grossly intact. ABSENT: motor sensory deficit Psychiatric exam: PRESENT: appropriate affect, normal mood, other - Pleasant. ABSENT: homicidal ideation, suicidal ideation Results Laboratory Results: 05/23/19 05:23 05/23/19 05:23 05/23/19 05/23/19 05/23/19 05:23 05:23 05:23 WBC 6.2 RBC 3.62 L Hgb 10.1 L Hct 30.1 L MCV 83 MCH 27.8 MCHC 33.5 RDW 15.2 H Plt Count 180 Seg Neutrophils % 73.1 VBG pH 7.36 VBG pCO2 41.6 VBG HCO3 22.9 VBG Base Excess -2.5 Sodium 136.6 L Potassium 3.8 Chloride 104 Carbon Dioxide 23 Anion Gap 10 BUN 21 H Creatinine 0.70 Est GFR ( Amer) > 60 Glucose 112 H Calcium 8.4 Total Bilirubin 1.1 AST 68 H Alkaline Phosphatase 156 H Total Protein 7.4 Albumin 3.5 Urine Color Urine Appearance Urine pH Ur Specific [place] Urine Protein Urine Glucose (UA) Urine Ketones Urine Blood Urine Nitrite Ur Leukocyte Esterase Urine WBC (Auto) Urine RBC (Auto) 05/23/19 05:23 WBC RBC Hgb Hct MCV MCH MCHC RDW Plt Count Seg Neutrophils % VBG pH VBG pCO2 VBG HCO3 VBG Base Excess Sodium Potassium Chloride Carbon Dioxide Anion Gap BUN Creatinine Est GFR ( Amer) Glucose Calcium Total Bilirubin AST Alkaline Phosphatase Total Protein Albumin Urine Color YELLOW Urine Appearance CLEAR Urine pH 5.0 Ur Specific [place] 1.023 Urine Protein 30 H Urine Glucose (UA) NEGATIVE Urine Ketones NEGATIVE Urine Blood NEGATIVE Urine Nitrite NEGATIVE Ur Leukocyte Esterase NEGATIVE Urine WBC (Auto) 2 Urine RBC (Auto) 1 05/23/19 05:23 Troponin I 0.028 NT-Pro-B Natriuret Pep 5910 H Impressions: Chest X-Ray 05/23/19 04:23 IMPRESSION: Cardiomegaly. COPD. Small left pleural effusion with adjacent airspace opacity. copyright 2011 [employer]- All Rights Reserved Assessment and Plan - Diagnosis (1) Bilateral lower extremity edema Is this a current diagnosis for this admission?: Yes Plan: Patient states he has 2+ pitting edema to both lower extremities patient states that this is worse than usual patient states as been out of his medicine about 10 days now.. Patient states the edema is so bad it hurts him to walk. (2) CHF exacerbation Qualifiers: Heart failure type: unspecified Qualified Code(s): I50.9 - Heart failure, unspecified Is this a current diagnosis for this admission?: Yes Plan: Patient responded to 40 of Lasix in the IV and is feeling much better less shortness of breath. Patient was supposed to be taking spironolactone is been out of his medicines now for 10 days Patient has been in the emergency room back in January of this year as well as December of this year for the same complaint CHF exacerbation. Patient is in no respiratory distress , he will be treated with IV Lasix every 12 hours (3) COPD (chronic obstructive pulmonary disease) Qualifiers: COPD type: unspecified COPD Qualified Code(s): J44.9 - Chronic obstructive pulmonary disease, unspecified Is this a current diagnosis for this admission?: Yes Plan: She will have the usual neb treatments as needed as needed no indication for antibiotics. - Time Time Spent with patient: 35 or more minutes
[2019-05-23] MEDS: FUROSEMIDE INJ/PF 40 MG/4 ML SDV IV SCH ×2 (12:33→22:58)
[2019-05-23] MEDS: FAMOTIDINE 20 MG TABLET PO SCH ×2 (12:34→22:58)
[2019-05-23] MEDS: ENOXAPARIN SODIUM INJ 40 MG/0.4 ML DISP.SYRIN SUBCUT SCH (12:34)
[2019-05-23] MEDS: GABAPENTIN 300 MG CAPSULE PO SCH ×2 (12:34→22:58)
[2019-05-23] MEDS: FLUTICASONE/VILANTEROL 100-25 MCG/DOSE IH SCH (22:58)
[2019-05-24 05:10] LABS: ABSOLUTE BASOPHILS # (AUTO) 0.1 10^3/uL (0.0-0.2); ABSOLUTE EOSINOPHILS # (AUTO) 0.3 10^3/uL (0.0-0.6); ABSOLUTE LYMPHOCYTES (AUTO) 1.4 10^3/uL (0.5-4.7); ABSOLUTE MONOCYTES (AUTO) 0.8 10^3/uL (0.1-1.4); BASOPHILS % (AUTO) 1.3 % (0-2); HEMATOCRIT 31.1 % (37.9-51.0); HEMOGLOBIN 10.4 g/dL (13.5-17.0); LYMPHOCYTES % (AUTO) 18.7 % (13-45); MEAN CORPUSCULAR HEMOGLOBIN 27.5 pg (27.0-33.4); MEAN CORPUSCULAR HGB CONC 33.4 g/dL (32.0-36.0); MEAN CORPUSCULAR VOLUME 82 fl (80-97); MONOCYTES % (AUTO) 10.3 % (3-13); PLATELET COUNT 185 10^3/uL (150-450); RED BLOOD COUNT 3.78 10^6/uL (4.35-5.55); RED CELL DISTRIBUTION WIDTH 14.9 % (11.5-14.0); SEGMENTED NEUTROPHILS % (AUTO) 65.7 % (42-78); TOTAL CELLS COUNTED % (AUTO) 100 %; WHITE BLOOD COUNT 7.7 10^3/uL (4.0-10.5)
[2019-05-24 05:34] LABS: ANION GAP 11 (5-19); BLOOD UREA NITROGEN 17 mg/dL (7-20); CALCIUM 8.5 mg/dL (8.4-10.2); CARBON DIOXIDE 30 mmol/L (22-30); CHLORIDE 98 mmol/L (98-107); GLUCOSE 104 mg/dL (75-110)
[2019-05-24] MEDS: FAMOTIDINE 20 MG TABLET PO SCH ×2 (09:37→22:17)
[2019-05-24] MEDS: GABAPENTIN 300 MG CAPSULE PO SCH ×2 (09:37→22:17)
[2019-05-24] MEDS: POTASSIUM CHLORIDE 10 MEQ CAPSULE.ER PO SCH ×3 (09:37→16:17)
[2019-05-24] MEDS: FLUTICASONE/VILANTEROL 100-25 MCG/DOSE IH SCH ×2 (09:37→09:43)
[2019-05-24] MEDS: ENOXAPARIN SODIUM INJ 40 MG/0.4 ML DISP.SYRIN SUBCUT SCH (09:37)
[2019-05-24] MEDS: FUROSEMIDE INJ/PF 40 MG/4 ML SDV IV SCH ×2 (09:37→22:17)
[2019-05-24] MEDS ORDERED: MAGNESIUM SULFATE/D5W 1 GM/100 ML RTUPB IV ONE (15:00)
--- NOTE | 2019-05-24 19:39 | PDOC PROGRESS REPORT ---
Subjective Progress Note for:: 05/24/19 Subjective:: Patient is admitted today for day history of worsening shortness of breath. Patient states he has been getting short of breath now for at least 5 days. Patient states his been out of his medication for at least 10 days. Patient says is not supposed to get his medicine until the of this month which is another 11 days. Patient states that his edema in his feet and legs is gotten much worse in the last 5 days also, to the point where it is painful to walk. Patient has a history of CHF and was in the hospital back in January of this year with a BNP of 7750, and then a month before that with a BNP of 4620 Today it is BNP is 5910. patient is chest x-ray today shows cardiomegaly and COPD with a small left-sided pleural effusion with adjacent airspace opacity Patient will be treated as a CHF exacerbation with no sign of infection at this time Reason For Visit: CHF EXACERBATION, COPD, PATIENT NONCOMPLIANCE, Physical Exam Vital Signs: Temp Pulse Resp BP Pulse Ox 98.3 F 95 17 104/57 L 100 05/24/19 15:20 05/24/19 15:20 05/24/19 15:20 05/24/19 15:20 05/24/19 15:20 Intake & Output 05/23/19 05/24/19 05/25/19 06:59 06:59 06:59 Intake Total 1460 1540 Balance 1460 1540 Weight 75 kg 75 kg General appearance: PRESENT: no acute distress, well-developed, well-nourished Head exam: PRESENT: atraumatic, normocephalic Respiratory exam: PRESENT: clear to auscultation rossy. ABSENT: rales, rhonchi, wheezes Cardiovascular exam: PRESENT: RRR. ABSENT: diastolic murmur, rubs, systolic murmur Extremities exam: PRESENT: +1 edema Neurological exam: PRESENT: alert, awake, oriented to person, oriented to place, oriented to time, oriented to situation, CN II-XII grossly intact. ABSENT: motor sensory deficit Results Laboratory Results: 05/24/19 04:52 05/24/19 04:52 05/24/19 05/24/19 04:52 04:52 WBC 7.7 RBC 3.78 L Hgb 10.4 L Hct 31.1 L MCV 82 MCH 27.5 MCHC 33.4 RDW 14.9 H Plt Count 185 Seg Neutrophils % 65.7 Sodium 138.9 Potassium 3.0 L* Chloride 98 Carbon Dioxide 30 Anion Gap 11 BUN 17 Creatinine 0.92 Est GFR ( Amer) > 60 Glucose 104 Calcium 8.5 Magnesium 1.3 L 05/23/19 05/24/19 05:23 04:52 Troponin I 0.028 NT-Pro-B Natriuret Pep 5910 H 4840 H Impressions: Chest X-Ray 05/23/19 04:23 IMPRESSION: Cardiomegaly. COPD. Small left pleural effusion with adjacent airspace opacity. copyright 2010 [employer]- All Rights Reserved Assessment and Plan - Diagnosis (1) Bilateral lower extremity edema Is this a current diagnosis for this admission?: Yes Plan: Patient states he has 2+ pitting edema to both lower extremities patient states that this is worse than usual patient states as been out of his medicine about 10 days now.. Patient states the edema is so bad it hurts him to walk. (2) CHF exacerbation Qualifiers: Heart failure type: unspecified Qualified Code(s): I50.9 - Heart failure, unspecified Is this a current diagnosis for this admission?: Yes Plan: Patient responded to 40 of Lasix in the IV and is feeling much better less shortness of breath. Patient was supposed to be taking spironolactone is been out of his medicines now for 10 days Patient has been in the emergency room back in January of this year as well as December of this year for the same complaint CHF exacerbation. Patient is in no respiratory distress , he will be treated with IV Lasix every 12 hours (3) COPD (chronic obstructive pulmonary disease) Qualifiers: COPD type: unspecified COPD Qualified Code(s): J44.9 - Chronic obstructive pulmonary disease, unspecified Is this a current diagnosis for this admission?: Yes Plan: She will have the usual neb treatments as needed as needed no indication for antibiotics.
[2019-05-25 07:05] LABS: ANION GAP 8 (5-19); BLOOD UREA NITROGEN 16 mg/dL (7-20); CALCIUM 7.9 mg/dL (8.4-10.2); CARBON DIOXIDE 33 mmol/L (22-30); CHLORIDE 95 mmol/L (98-107); GLUCOSE 144 mg/dL (75-110); POTASSIUM 3.6 mmol/L (3.6-5.0)
[2019-05-25] MEDS ORDERED: POTASSIUM CHLORIDE 10 MEQ CAPSULE.ER PO SCH (10:00)
[2019-05-25] MEDS ORDERED: MAGNESIUM SULFATE/D5W 1 GM/100 ML RTUPB IV ONE (10:00)
[2019-05-25] MEDS: ENOXAPARIN SODIUM INJ 40 MG/0.4 ML DISP.SYRIN SUBCUT SCH (10:08)
[2019-05-25] MEDS: GABAPENTIN 300 MG CAPSULE PO SCH (10:09)
[2019-05-25] MEDS: FAMOTIDINE 20 MG TABLET PO SCH (10:09)
[2019-05-25] MEDS: FUROSEMIDE INJ/PF 40 MG/4 ML SDV IV SCH (10:09)
[2019-05-25] MEDS: FLUTICASONE/VILANTEROL 100-25 MCG/DOSE IH SCH (10:26)
[2019-05-25 18:27] VITALS: BP 108/72
--- NOTE | 2019-05-28 17:31 | PDOC DISCHARGE SUMMARY ---
General - Admit/Disc Date/PCP Admission Date/Primary Care Provider: 05/23/19 07:48 [facility] Discharge Date: 05/25/19 - Discharge Diagnosis (1) CHF exacerbation Is this a current diagnosis for this admission?: Yes (2) Bilateral lower extremity edema Is this a current diagnosis for this admission?: Yes (3) COPD (chronic obstructive pulmonary disease) Is this a current diagnosis for this admission?: Yes - Additional Information Resuscitation Status: Full Code Discharge Diet: Cardiac Discharge Activity: Activity As Tolerated, Balance Activity w/Rest, Weigh Daily Prescriptions: Furosemide [Lasix 20 mg Tablet] 20 mg PO QAM #30 tablet Metoprolol Tartrate [Lopressor 25 mg Tablet] 12.5 mg PO Q12 30 Days #60 tab Lisinopril [Prinivil 2.5 mg Tablet] 2.5 mg PO DAILY 30 Days #30 tablet Home Medications: Budesonide/Formoterol Fumarate [Symbicort HFA 160-4.5 mcg Inhaler 6 gm] 2 puff I H Q12 05/23/19 Folic Acid [Folvite 1 mg Tablet] 1 mg PO QAM 05/23/19 Gabapentin [Neurontin 300 mg Capsule] 1,200 mg PO Q8 05/23/19 Spironolactone [Aldactone 25 mg Tablet] 25 mg PO DAILY 05/23/19 Tramadol HCl [Ultram 50 mg Tablet] 100 mg PO Q8 05/23/19 Furosemide [Lasix 20 mg Tablet] 20 mg PO QAM #30 tablet 05/25/19 Lisinopril [Prinivil 2.5 mg Tablet] 2.5 mg PO DAILY 30 Days #30 tablet 05/25/19 Metoprolol Tartrate [Lopressor 25 mg Tablet] 12.5 mg PO Q12 30 Days #60 tab 05/25/19 History of Present Illness History of Present Illness: Patient is admitted today for day history of worsening shortness of breath. Patient states he has been getting short of breath now for at least 5 days. Patient states his been out of his medication for at least 10 days. Patient says is not supposed to get his medicine until the of this month which is another 11 days. Patient states that his edema in his feet and legs is gotten much worse in the last 5 days also, to the point where it is painful to walk. Patient has a history of CHF and was in the hospital back in January of this year with a BNP of 7750, and then a month before that with a BNP of 4620 Today it is BNP is 5910. patient is chest x-ray today shows cardiomegaly and COPD with a small left-sided pleural effusion with adjacent airspace opacity Patient will be treated as a CHF exacerbation with no sign of infection at this time Hospital Course Hospital Course: (1) CHF exacerbation Acute systolic heart failure. Most likely due to noncompliance. 01/06/2019. 2D echo LVEF less than 20%, severe left ventricular hypokinesis, moderately dilated left ventricle, RSVP 56 mmHg.Patient responded to 40 of Lasix in the IV and is feeling much better less shortness of breath. Started on IV Lasix, beta-blockers, MILAGRO, Aldactone, cardiac diet, volume restriction. Significant improvement of symptoms. SPO2 WNL on RA. Euvolemic at the time of discharge. Discharge on diuretics, beta-blockers, MILAGRO, Aldactone. Outpatient PCP and cardiology follow-up. (2) Bilateral lower extremity edema Problem #1. Resolved. Patient was advised on medication adherence and volume restriction. (3) COPD (chronic obstructive pulmonary disease) Started on duo nebs, LABA, ICS, and PRN BiPAP. Restart home meds upon discharge. Outpatient PCP and pulmonology follow-up. Physical Exam Vital Signs: Temp Pulse Resp BP Pulse Ox 98.6 F 99 19 123/62 94 05/25/19 17:48 05/25/19 17:48 05/25/19 17:48 05/25/19 17:48 05/25/19 17:48 General appearance: PRESENT: no acute distress, well-developed, well-nourished Head exam: PRESENT: atraumatic, normocephalic Cardiovascular exam: PRESENT: RRR. ABSENT: diastolic murmur, rubs, systolic murmur Pulses: PRESENT: normal dorsalis pedis pul GI/Abdominal exam: PRESENT: normal bowel sounds, soft. ABSENT: distended, guarding, mass, organolmegaly, rebound, tenderness Extremities exam: PRESENT: full ROM. ABSENT: calf tenderness, clubbing, pedal edema Neurological exam: PRESENT: alert, awake, oriented to person, oriented to place, oriented to time, oriented to situation, CN II-XII grossly intact. ABSENT: motor sensory deficit Results Laboratory Results: 05/24/19 04:52 05/25/19 05:59 05/23/19 06:10 Blood Blood Culture - Final NO GROWTH IN 5 DAYS 05/23/19 05:23 Blood Blood Culture - Final NO GROWTH IN 5 DAYS 05/23/19 05/24/19 05:23 04:52 Troponin I 0.028 NT-Pro-B Natriuret Pep 5910 H 4840 H Impressions: Chest X-Ray 05/23/19 04:23 IMPRESSION: Cardiomegaly. COPD. Small left pleural effusion with adjacent airspace opacity. copyright 2010 [employer]- All Rights Reserved Qualifiers - * PATIENT BEING DISCHARGED WITH ANY OF THE FOLLOWING DIAGNOSIS: No Acute Heart Failure - Is this a Heart Failure Patient?: Yes Documentation of LVEF assessment?: Yes LVEF < 40%?: No- if no continue to question #3 Follow-up Appointment scheduled within 7 days?: Yes
== END 2019-05-25 18:26 | disposition home or self-care (01) | DRG 190 ==
LOC: ER 04:04 → EH 07:48 → 5 09:24
PROVIDERS: ADMIT Hospitalist; ATTEND Hospitalist
DX: J44.1 Chronic obstructive pulmonary disease with (acute) exacerbation (principal); I50.21 Acute systolic (congestive) heart failure; E11.51 Type 2 diabetes mellitus with diabetic peripheral angiopathy without gangrene; F17.210 Nicotine dependence, cigarettes, uncomplicated; I25.2 Old myocardial infarction; Z91.19 Patient's noncompliance with other medical treatment and regimen; Z98.84 Bariatric surgery status; Z88.3 Allergy status to other anti-infective agents; Z88.0 Allergy status to penicillin; Z88.8 Allergy status to other drugs, medicaments and biological substances; Z82.49 Family history of ischemic heart disease and other diseases of the circulatory system
CPT/HCPCS: 36415; 71046; 80048; 80053; 81001; 82803; 83036; 83735; 83880; 84443; 84484; 85025; 85610; 87040; 87086; 87088; 87186; 93005; 93010; 94640; 96374; 99285; J1650; J1940; J3475; J3490; J7620

== ENCOUNTER 2019-05-28 05:05 | Emergency (ER) | payer OTHER, MEDICARE ==
[2019-05-28 06:35] LABS: ABSOLUTE BASOPHILS # (AUTO) 0.1 10^3/uL (0.0-0.2); ABSOLUTE EOSINOPHILS # (AUTO) 0.4 10^3/uL (0.0-0.6); ABSOLUTE LYMPHOCYTES (AUTO) 1.1 10^3/uL (0.5-4.7); ABSOLUTE MONOCYTES (AUTO) 0.8 10^3/uL (0.1-1.4); ABSOLUTE NEUT (AUTO) 4.3 10^3/uL (1.7-8.2); BASOPHILS % (AUTO) 1.2 % (0-2); HEMATOCRIT 30.5 % (37.9-51.0); HEMOGLOBIN 10.1 g/dL (13.5-17.0); LYMPHOCYTES % (AUTO) 16.8 % (13-45); MEAN CORPUSCULAR HGB CONC 33.2 g/dL (32.0-36.0); MEAN CORPUSCULAR VOLUME 81 fl (80-97); MONOCYTES % (AUTO) 11.6 % (3-13); PLATELET COUNT 155 10^3/uL (150-450); RED BLOOD COUNT 3.75 10^6/uL (4.35-5.55); RED CELL DISTRIBUTION WIDTH 14.5 % (11.5-14.0); SEGMENTED NEUTROPHILS % (AUTO) 64.4 % (42-78); TOTAL CELLS COUNTED % (AUTO) 100 %; WHITE BLOOD COUNT 6.7 10^3/uL (4.0-10.5)
[2019-05-28 06:36] LABS: ALBUMIN 2.8 g/dL (3.5-5.0); ALKALINE PHOSPHATASE 120 U/L (38-126); ANION GAP 6 (5-19); ASPARTATE AMINO TRANSFERASE 39 U/L (17-59); BILIRUBIN,DIRECT 0.3 mg/dL (0.0-0.4); BILIRUBIN,TOTAL 0.7 mg/dL (0.2-1.3); BLOOD UREA NITROGEN 18 mg/dL (7-20); CALCIUM 7.4 mg/dL (8.4-10.2); CARBON DIOXIDE 27 mmol/L (22-30); CHLORIDE 102 mmol/L (98-107); CREATINE KINASE 31 U/L (55-170); GLUCOSE 96 mg/dL (75-110); POTASSIUM 3.5 mmol/L (3.6-5.0)
[2019-05-28 06:48] LABS: CREATINE KINASE MB 1.25 ng/mL (<4.55); TROPONIN I 0.029 ng/mL
--- NOTE | 2019-05-28 07:20 | ER Document Report ---
Entered by MEAGAN SABA SCRIBE 05/28/19 0626 Acting as scribe for:GHAZAL DOSHI MD ED Respiratory Problem - General Chief Complaint: Breathing Difficulty Stated Complaint: SHORTNESS OF BREATH Time Seen by Provider: 05/28/19 06:13 Primary Care Provider: [facility] [Primary Care Provider] - Follow up as needed Mode of Arrival: Ambulatory Information source: Patient Notes: Patient is a 69-year-old male who presents to the emergency department today with complaints of shortness of breath. Patient was recently admitted from 05/23/2019 through 05/25/2019 for COPD and CHF exacerbation related to non- compliance with medications. Patient reports that he has had no energy with associated shortness of breath for the last week. Patient states he has all of his necessary at home medications and has been taking them. Patient goes from complaining of his shortness of breath and pain all over to asking for food stating he is "starving". TRAVEL OUTSIDE OF THE [place] IN LAST 30 DAYS: No - Related Data Allergies/Adverse Reactions: vancomycin Allergy (Unknown, Verified 05/28/19 05:34) azithromycin Allergy (Verified 05/28/19 05:34) ketorolac [From Toradol] Allergy (Verified 05/28/19 05:34) Penicillins Allergy (Verified 05/28/19 05:34) Past Medical History - General Information source: Patient - Social History Smoking Status: Current Every Day Smoker Cigarette use (# per day): Yes Frequency of alcohol use: None Drug Abuse: None Lives with: Family Family History: Reviewed & Not Pertinent, CAD, COPD, Hypertension Patient has suicidal ideation: No Patient has homicidal ideation: No - Past Medical History Cardiac Medical History: Reports: Hx Congestive Heart Failure - Chronic systolic congestive heart failure with ejection fraction of 25%, Hx Heart Attack Pulmonary Medical History: Reports: Hx Asthma, Hx Bronchitis, Hx COPD Past Surgical History: Reports: Hx Abdominal Surgery, Hx Cholecystectomy, Hx Gastric Bypass Surgery, Other - Gallbladder - Immunizations Immunizations up to date: Yes Hx Diphtheria, Pertussis, Tetanus Vaccination: Yes Review of Systems - Review of Systems Constitutional: See HPI, Other - "no energy", Weight gain - 2.5 lbs since di scharge x3 days ago EENT: No symptoms reported Cardiovascular: No symptoms reported Respiratory: See HPI, Short of breath Gastrointestinal: No symptoms reported Genitourinary: No symptoms reported Male Genitourinary: No symptoms reported Musculoskeletal: No symptoms reported Skin: No symptoms reported Hematologic/Lymphatic: No symptoms reported Neurological/Psychological: No symptoms reported -: Yes All other systems reviewed and negative Physical Exam - Vital signs Vitals: Temp 97.9 F 05/28/19 05:05 - Notes Notes: Physical Exam: General: Alert. HEENT: Normocephalic. Atraumatic. PERRL. Extraocular movements intact. Oropharynx clear. Neck: Supple. Non-tender. Respiratory: No respiratory distress. Rhonchi bilaterally, no wheezing. Saturating in the upper 90s. Cardiovascular: Tachycardic 110-115, regular rhythm. Abdominal: Normal Inspection. Non-tender. No distension. Normal Bowel Sounds. Back: No gross abnormalities. Extremities: Moves all four extremities. Upper extremities: Normal inspection. Normal ROM. Lower extremities: Trace edema bilaterally. Normal ROM. Neurological: Normal cognition. AAOx4. Normal speech. Psychological: Normal affect. Normal Mood. Skin: Warm. Dry. Normal color. Course - Re-evaluation Re-evalutation: 05/28/19 11:32 Patient's BNP is 8900 today, nearly double what it was on his most recent admission. 05/28/19 13:35 An attempt was made to get a CTA of the chest, however an adequate vein could not be established, so a ventilation perfusion scan was done. The VQ scan was read as low probability. The patient has been up walking around in the hallways talking with people and seems to be in no distress. He is not on supplemental oxygen. - Vital Signs Vital signs: Temp Pulse Resp BP Pulse Ox 98 F 20 108/61 98 05/28/19 09:29 05/28/19 09:00 05/28/19 07:01 05/28/19 09:00 - Laboratory Result Diagrams: 05/28/19 05:14 05/28/19 05:14 Laboratory results interpreted by me: 05/28/19 05/28/19 05/28/19 05:14 05:14 05:14 RBC 3.75 L Hgb 10.1 L Hct 30.5 L RDW 14.5 H D-Dimer Sodium 135.0 L Potassium 3.5 L Calcium 7.4 L Magnesium 1.4 L Creatine Kinase 31 L NT-Pro-B Natriuret Pep 8910 H Total Protein 6.0 L Albumin 2.8 L 05/28/19 05:14 RBC Hgb Hct RDW D-Dimer 1.04 H Sodium Potassium Calcium Magnesium Creatine Kinase NT-Pro-B Natriuret Pep Total Protein Albumin - Diagnostic Test Radiology reviewed: Image reviewed, Reports reviewed - Chest x-ray shows cardiomegaly without acute disease. V/Q scan is read as low probability - EKG Interpretation by Me EKG shows normal: Sinus rhythm, [place], Intervals, QRS Complexes. abnormal: ST-T Waves - Diffuse nonspecific T wave abnormalities Rate: Tachycardia - 109 [place]/QRS: Left axis deviation When compared to previous EKG there are: No significant change Discharge - Discharge Clinical Impression: Wheezing COPD (chronic obstructive pulmonary disease) Qualifiers: COPD type: unspecified COPD Qualified Code(s): J44.9 - Chronic obstructive pulmonary disease, unspecified CHF exacerbation Qualifiers: Heart failure type: unspecified Qualified Code(s): I50.9 - Heart failure, unspecified Condition: Stable Disposition: HOME, SELF-CARE Additional Instructions: Your shortness of breath today seems to be a combination of some mild congestive heart failure, and exacerbation of your COPD. Be sure to take all of your regular medications while you are at home. Follow-up with your primary care provider on Thursday for recheck. RETURN TO THE EMERGENCY ROOM IF ANY NEW OR WORSENING SYMPTOMS. Referrals: [facility] [[facility]] - Follow up as needed Scribe Attestation: 05/28/19 07:34 I personally performed the services described in the documentation, reviewed and edited the documentation which was dictated to the scribe in my presence, and it accurately records my words and actions. I personally performed the services described in the documentation, reviewed and edited the documentation which was dictated to the scribe in my presence, and it accurately records my words and actions.
--- NOTE | 2019-05-28 07:42 | RADIOLOGY REPORT (SQ) ---
Chest single view on 05/28/2019 at 6:35 AM CLINICAL INDICATION: Shortness of breath, feels bad all over COMPARISON: 05/23/2019 FINDINGS: Cardiomegaly is noted. Vascular calcification is noted in the aorta. Old plate and screw fixation of the left clavicle is noted. The lungs are clear. Hilar and mediastinal contours are within normal limits. IMPRESSION: Cardiomegaly with no acute pulmonary disease.
--- NOTE | 2019-05-28 11:01 | RADIOLOGY REPORT (SQ) ---
EXAM DESCRIPTION: NM LUNG VENT/PERF SCAN COMPLETED DATE/TIME: 05/28/2019 10:50 am REASON FOR STUDY: SOB,elevated d-dimer,tachycardia COMPARISON: Radiographs from same date. RADIONUCLIDE AND DOSE: 5.4 millicuries TC-99m MAA Intravenous 32.5 millicuries TC-99m DTPA Inhaled aerosol TECHNIQUE: Eight views of the lungs acquired post ventilation of DTPA aerosol. Eight matching views of the lungs acquired following injection of MAA. LIMITATIONS: None. FINDINGS: VENTILATION: Heterogeneous with central clumping likely related to turbulent flow. PERFUSION: Mild heterogeneity but no photopenic defects to suggest significant pulmonary embolus. OTHER: No other significant finding. IMPRESSION: Low probability for pulmonary embolus. TECHNICAL DOCUMENTATION: JOB ID: [id number] [employer]- All Rights Reserved Reading location - IP/workstation name: [email or web address]
[2019-05-28] MEDS ORDERED: FUROSEMIDE INJ/PF 40 MG/4 ML SDV IV ONE (11:29)
[2019-05-28] MEDS ORDERED: IPRATROPIUM/ALBUTEROL 0.5-2.5 MG/3 ML AMPUL NEB ONE (11:37)
[2019-05-28 13:30] LABS: APPEARANCE,URINE CLEAR; BILIRUBIN,URINE NEGATIVE (NEGATIVE); COLOR,URINE YELLOW; GLUCOSE, URINE NEGATIVE (NEGATIVE); KETONES,URINE NEGATIVE (NEGATIVE); LEUKOCYTE ESTERASE,URINE NEGATIVE (NEGATIVE); NITRITE,URINE NEGATIVE (NEGATIVE); PROTEIN,URINE NEGATIVE (NEGATIVE); URINE SPECIFIC GRAVITY 1.014
[2019-05-28 14:54] VITALS: BP 126/74
--- NOTE | 2019-05-28 19:46 | EKG REPORT ---
SEVERITY:- ABNORMAL ECG - SINUS TACHYCARDIA WITH IRREGULAR RATE 92-134 BORDERLINE LEFT AXIS DEVIATION NONSPECIFIC T ABNORMALITIES, DIFFUSE LEADS : Confirmed by: Lorenza Sandoval MD 28-May-2019 19:45:06
== END 2019-05-28 14:33 | disposition home or self-care (01) ==
LOC: ER 05:05
DX: I11.0 Hypertensive heart disease with heart failure (principal); I50.22 Chronic systolic (congestive) heart failure; J44.9 Chronic obstructive pulmonary disease, unspecified; R00.0 Tachycardia, unspecified; R06.02 Shortness of breath; R52 Pain, unspecified; R63.5 Abnormal weight gain; F17.210 Nicotine dependence, cigarettes, uncomplicated; Z88.1 Allergy status to other antibiotic agents; Z88.8 Allergy status to other drugs, medicaments and biological substances; Z88.0 Allergy status to penicillin; Z82.49 Family history of ischemic heart disease and other diseases of the circulatory system
CPT/HCPCS: 93005; 94640; 99285; 96374; 36415; 87040; 82553; 82550; 83735; 85025; 80053; 81001; 84484; 85379; 83605; 83880; 71045; 78582; 93010; A9540; A9567; J1940; J7620; Q9969

== ENCOUNTER 2019-07-08 16:44 | Emergency (ER) | payer OTHER, MEDICARE ==
[2019-07-08 17:09] LABS: ABSOLUTE BASOPHILS # (AUTO) 0.1 10^3/uL (0.0-0.2); ABSOLUTE EOSINOPHILS # (AUTO) 0.2 10^3/uL (0.0-0.6); ABSOLUTE LYMPHOCYTES (AUTO) 1.3 10^3/uL (0.5-4.7); ABSOLUTE MONOCYTES (AUTO) 0.7 10^3/uL (0.1-1.4); ABSOLUTE NEUT (AUTO) 4.7 10^3/uL (1.7-8.2); BASOPHILS % (AUTO) 1.2 % (0-2); EOSINOPHILS % (AUTO) 3.2 % (0-6); HEMATOCRIT 31.2 % (37.9-51.0); HEMOGLOBIN 10.1 g/dL (13.5-17.0); LYMPHOCYTES % (AUTO) 18.7 % (13-45); MEAN CORPUSCULAR HEMOGLOBIN 26.1 pg (27.0-33.4); MEAN CORPUSCULAR HGB CONC 32.3 g/dL (32.0-36.0); MEAN CORPUSCULAR VOLUME 81 fl (80-97); PLATELET COUNT 150 10^3/uL (150-450); RED BLOOD COUNT 3.87 10^6/uL (4.35-5.55); RED CELL DISTRIBUTION WIDTH 17.3 % (11.5-14.0); SEGMENTED NEUTROPHILS % (AUTO) 66.9 % (42-78); TOTAL CELLS COUNTED % (AUTO) 100 %; WHITE BLOOD COUNT 7.1 10^3/uL (4.0-10.5)
[2019-07-08 17:30] LABS: ALBUMIN 3.3 g/dL (3.5-5.0); ALKALINE PHOSPHATASE 111 U/L (38-126); ANION GAP 11 (5-19); ASPARTATE AMINO TRANSFERASE 25 U/L (17-59); BILIRUBIN,DIRECT 0.3 mg/dL (0.0-0.4); BILIRUBIN,TOTAL 0.6 mg/dL (0.2-1.3); BLOOD UREA NITROGEN 27 mg/dL (7-20); CALCIUM 8.3 mg/dL (8.4-10.2); CARBON DIOXIDE 26 mmol/L (22-30); CHLORIDE 103 mmol/L (98-107); CREATINE KINASE 42 U/L (55-170); GLUCOSE 125 mg/dL (75-110); POTASSIUM 3.1 mmol/L (3.6-5.0)
[2019-07-08 17:42] LABS: TROPONIN I 0.02 ng/mL
[2019-07-08] MEDS ORDERED: FUROSEMIDE INJ/PF 40 MG/4 ML SDV IV ONE (17:47)
[2019-07-08] MEDS ORDERED: NITROGLYCERIN 2% OINTMENT 1 GM PACKET TP ONE (17:47)
--- NOTE | 2019-07-08 18:12 | RADIOLOGY REPORT (SQ) ---
EXAM DESCRIPTION: CHEST SINGLE VIEW COMPLETED DATE/TIME: 07/08/2019 5:46 pm REASON FOR STUDY: SOB COMPARISON: 05/28/2019 EXAM PARAMETERS: NUMBER OF VIEWS: One view. TECHNIQUE: Single frontal radiographic view of the chest acquired. RADIATION DOSE: NA LIMITATIONS: None. FINDINGS: LUNGS AND PLEURA: No opacities, masses or pneumothorax. Small bilateral pleural effusions . MEDIASTINUM AND HILAR STRUCTURES: No masses. Contour normal. HEART AND VASCULAR STRUCTURES: Redemonstrated gross cardiomegaly. BONES: No acute findings. HARDWARE: None in the chest. OTHER: No other significant finding. IMPRESSION: Cardiomegaly with small bilateral pleural effusions. No focal airspace opacity. TECHNICAL DOCUMENTATION: JOB ID: [id number] [employer]- All Rights Reserved Reading location - IP/workstation name: [email or web address]
--- NOTE | 2019-07-08 19:09 | EKG REPORT ---
SEVERITY:- ABNORMAL ECG - SINUS RHYTHM MULTIFORM VENTRICULAR PREMATURE COMPLEXES PROBABLE LEFT ATRIAL ABNORMALITY BORDERLINE LEFT AXIS DEVIATION NONSPECIFIC T ABNORMALITIES, ANT-LAT LEADS : Confirmed by: Lorenza Sandoval MD 08-Jul-2019 19:08:16
[2019-07-08 20:05] LABS: APPEARANCE,URINE CLEAR; BILIRUBIN,URINE NEGATIVE (NEGATIVE); COLOR,URINE YELLOW; GLUCOSE, URINE NEGATIVE (NEGATIVE); KETONES,URINE NEGATIVE (NEGATIVE); LEUKOCYTE ESTERASE,URINE NEGATIVE (NEGATIVE); NITRITE,URINE NEGATIVE (NEGATIVE); PROTEIN,URINE 100 mg/dL (NEGATIVE); UROBILINOGEN,URINE NEGATIVE mg/dL (<2.0)
[2019-07-08] MEDS ORDERED: POTASSIUM CHLORIDE 20 MEQ PACKET PO ONE (20:20)
[2019-07-08] MEDS ORDERED: POTASSIUM CHLORIDE 10 MEQ CAPSULE.ER PO ONE ×2 (20:46→20:47)
--- NOTE | 2019-07-08 22:20 | ER Document Report ---
ED Respiratory Problem - General Chief Complaint: Breathing Difficulty Stated Complaint: DIFFICULTY BREATHING Time Seen by Provider: 07/08/19 16:54 [facility] Care Provider: [facility] [Primary Care Provider] - Follow up as needed Notes: Patient is a 69-year-old male history of COPD and congestive heart failure presents to the emergency department for respiratory distress. Patient was brought to the emergency department via EMS. They did give the patient 1 DuoNeb treatment as well as a 2.5 mg albuterol. They also gave the patient 125 mg of Solu-Medrol. States patient's oxygen saturation on room air was 97% although his lung sounds did reveal inspiratory and expiratory wheezes in all [place]. Patient's noted his lower extremities are "more swollen than normal." Patient's admitting to exertional shortness of breath but is denying any chest pain. Patient voices he was without all of his medications for approximately a week because he could not get into the [place]. States they were recently refilled and he has been taking them as prescribed for the last 3 days. Patient voices he continues to smoke approximately 1 pack of cigarettes every day. Patient is not on home oxygen. TRAVEL OUTSIDE OF THE [place] IN LAST 30 DAYS: No - Related Data Allergies/Adverse Reactions: vancomycin Allergy (Unknown, Verified 05/28/19 05:34) azithromycin Allergy (Verified 05/28/19 05:34) ketorolac [From Toradol] Allergy (Verified 05/28/19 05:34) Penicillins Allergy (Verified 05/28/19 05:34) Home Medications: Tramadol 50 mg tablets (2 tablets 3 times a day). Gabapentin 300 mg tablets (4 tablets every 8 hours). Symbicort. Furosimide 20 mg tabl (1 daily). Metoprolol 25 mg tablets (1/2 tablet twice a day). Folic acid 1 mg tablet (daily) Past Medical History - General Information source: Patient - Social History Smoking Status: Current Every Day Smoker Frequency of alcohol use: None Drug Abuse: Marijuana Family History: Reviewed & Not Pertinent, CAD, COPD, Hypertension Patient has suicidal ideation: No Patient has homicidal ideation: No - Past Medical History Cardiac Medical History: Reports: Hx Congestive Heart Failure - Chronic systolic congestive heart failure with ejection fraction of 25%, Hx Heart Attack, Hx Hypertension Denies: Hx Atrial Fibrillation, Hx Coronary Artery Disease, Hx Hypercholesterolemia Pulmonary Medical History: Reports: Hx Asthma, Hx Bronchitis, Hx COPD Neurological Medical History: Denies: Hx Seizures Endocrine Medical History: Denies: Hx Diabetes Mellitus Type 1, Hx Diabetes Mellitus Type 2, Hx Hyperthyroidism, Hx Hypothyroidism Renal/ Medical History: Denies: Hx Peritoneal Dialysis GI Medical History: Denies: Hx Cirrhosis, Hx Hepatitis Musculoskeletal Medical History: Denies Hx Arthritis, Denies Hx Gout Skin Medical History: Denies Hx Eczema, Denies Hx Psoriasis Infectious Medical History: Denies: Hx Hepatitis Past Surgical History: Reports: Hx Abdominal Surgery, Hx Cholecystectomy, Hx Gastric Bypass Surgery, Other - Gallbladder - Immunizations Immunizations up to date: Yes Hx Diphtheria, Pertussis, Tetanus Vaccination: Yes Review of Systems - Review of Systems Constitutional: denies: Fever EENT: See HPI. denies: Nose congestion Cardiovascular: denies: Chest pain Respiratory: denies: Cough Gastrointestinal: No symptoms reported Genitourinary: No symptoms reported Male Genitourinary: No symptoms reported Musculoskeletal: See HPI Skin: No symptoms reported Hematologic/Lymphatic: No symptoms reported Neurological/Psychological: No symptoms reported Physical Exam - Vital signs Vitals: Temp 98.9 F 07/08/19 16:44 - Notes Notes: GENERAL: Alert, interacts well. No acute distress. HEAD: Normocephalic, atraumatic. EYES: Pupils equal, round, and reactive to light. Extraocular movements intact. ENT: Oral mucosa moist, tongue midline. NECK: Full range of motion. Supple. Trachea midline. LUNGS: Faint and expiratory wheeze noted right upper [place] to auscultation. Slightly diminished bilateral bases. No respiratory distress. HEART: Regular rate and rhythm. No murmur ABDOMEN: Soft, non-tender. Non-distended. Bowel sounds present in all 4 quadrants. EXTREMITIES: Moves all 4 extremities spontaneously. +2 pitting edema noted bilateral lower extremities up to mid calf, normal radial and dorsalis pedis pulses bilaterally. No cyanosis. BACK: no cervical, thoracic, lumbar midline tenderness. No saddle anesthesia, normal distal neurovascular exam. NEUROLOGICAL: Alert and oriented x3. Normal speech. cranial nerves II through XII grossly intact. PSYCH: Normal affect, normal mood. SKIN: Warm, dry, normal turgor. No rashes or lesions noted. Course - Re-evaluation Re-evalutation: Laboratory 07/08/19 07/08/19 07/08/19 16:57 16:57 16:57 WBC 7.1 RBC 3.87 L Hgb 10.1 L Hct 31.2 L MCV 81 MCH 26.1 L MCHC 32.3 RDW 17.3 H Plt Count 150 Lymph % (Auto) 18.7 Gage % (Auto) 10.0 Eos % (Auto) 3.2 Baso % (Auto) 1.2 Absolute Neuts (auto) 4.7 Absolute Lymphs (auto) 1.3 Absolute Monos (auto) 0.7 Absolute Eos (auto) 0.2 Absolute Basos (auto) 0.1 Seg Neutrophils % 66.9 Sodium 140.2 Potassium 3.1 L Chloride 103 Carbon Dioxide 26 Anion Gap 11 BUN 27 H Creatinine 1.09 Est GFR ( Amer) > 60 Est GFR (MDRD) Non-Af > 60 Glucose 125 H Calcium 8.3 L Total Bilirubin 0.6 Direct Bilirubin 0.3 Neonat Total Bilirubin Not Reportable Neonat Direct Bilirubin Not Reportable Neonat Indirect Bili Not Reportable AST 25 ALT 13 Alkaline Phosphatase 111 Creatine Kinase 42 L Troponin I 0.020 NT-Pro-B Natriuret Pep 84122 H Total Protein 7.0 Albumin 3.3 L Urine Color Urine Appearance Urine pH Ur Specific [place] Urine Protein Urine Glucose (UA) Urine Ketones Urine Blood Urine Nitrite Urine Bilirubin Urine Urobilinogen Ur Leukocyte Esterase Urine WBC (Auto) Urine RBC (Auto) U Hyaline Cast (Auto) Urine Bacteria (Auto) Squamous Epi Cells Auto Urine Mucus (Auto) Urine Ascorbic Acid 07/08/19 19:45 WBC RBC Hgb Hct MCV MCH MCHC RDW Plt Count Lymph % (Auto) Gage % (Auto) Eos % (Auto) Baso % (Auto) Absolute Neuts (auto) Absolute Lymphs (auto) Absolute Monos (auto) Absolute Eos (auto) Absolute Basos (auto) Seg Neutrophils % Sodium Potassium Chloride Carbon Dioxide Anion Gap BUN Creatinine Est GFR ( Amer) Est GFR (MDRD) Non-Af Glucose Calcium Total Bilirubin Direct Bilirubin Neonat Total Bilirubin Neonat Direct Bilirubin Neonat Indirect Bili AST ALT Alkaline Phosphatase Creatine Kinase Troponin I NT-Pro-B Natriuret Pep Total Protein Albumin Urine Color YELLOW Urine Appearance CLEAR Urine pH 5.0 Ur Specific [place] 1.010 Urine Protein 100 H Urine Glucose (UA) NEGATIVE Urine Ketones NEGATIVE Urine Blood NEGATIVE Urine Nitrite NEGATIVE Urine Bilirubin NEGATIVE Urine Urobilinogen NEGATIVE Ur Leukocyte Esterase NEGATIVE Urine WBC (Auto) 2 Urine RBC (Auto) 1 U Hyaline Cast (Auto) 4 Urine Bacteria (Auto) TRACE Squamous Epi Cells Auto 1 Urine Mucus (Auto) RARE Urine Ascorbic Acid NEGATIVE Chest X-Ray 07/08/19 16:45 IMPRESSION: Cardiomegaly with small bilateral pleural effusions. No focal airspace opacity. We have walked the patient around the emergency department. Nursing staff states patient's pulse oxygenation did not go below 95%. There also noting no tachypnea. Patient states he overall feels better after treatments in the emergency department. I discussed at length with him his elevated BMP and chest x-ray. On repeat assessment the patient's lung sounds he does have a faint end expiratory wheeze heard in the right upper [place]. I discussed continued use of his albuterol treatments at home. Patient shows no signs of hypoxia, tachycardia, hypotension. I discussed with patient importance of close follow-up with primary care provider with close return precautions. Patient voices understanding and is stable for discharge. Patient is requesting refills for his albuterol inhaler. 07/08/19 22:25 Patient's EKG shows a sinus rhythm rate of 84, QTc 464, no ST segment elevations or depressions noted. Read by Dr. Wilson. - Vital Signs Vital signs: Temp Pulse Resp BP Pulse Ox 97.4 F 92 20 129/73 H 98 07/08/19 23:14 07/08/19 23:14 07/08/19 23:14 07/08/19 23:14 07/08/19 23:14 - Laboratory Result Diagrams: 07/08/19 16:57 07/08/19 16:57 Laboratory results interpreted by me: 07/08/19 07/08/19 07/08/19 16:57 16:57 16:57 RBC 3.87 L Hgb 10.1 L Hct 31.2 L MCH 26.1 L RDW 17.3 H Potassium 3.1 L BUN 27 H Glucose 125 H Calcium 8.3 L Creatine Kinase 42 L NT-Pro-B Natriuret Pep 61748 H Albumin 3.3 L Urine Protein 07/08/19 19:45 RBC Hgb Hct MCH RDW Potassium BUN Glucose Calcium Creatine Kinase NT-Pro-B Natriuret Pep Albumin Urine Protein 100 H Discharge - Discharge Clinical Impression: CHF (congestive heart failure) Qualifiers: Heart failure type: other Qualified Code(s): I50.9 - Heart failure, unspecified COPD (chronic obstructive pulmonary disease) Qualifiers: COPD type: unspecified COPD Qualified Code(s): J44.9 - Chronic obstructive p ulmonary disease, unspecified Condition: Stable Disposition: HOME, SELF-CARE Instructions: Chronic Obstructive Lung Disease ([facility]), Congestive Heart Failure ([facility]) Additional Instructions: As we discussed you have been seen and treated in the emergency department for your congestive heart failure. Please make sure you are taking your Lasix as prescribed. Please also make sure you follow-up with your primary care provider in the next 12 to 24 hours. Please immediately return to the emergency department should you have any signs of respiratory distress or chest pain. Please also return should you have any other concerns. Prescriptions: Albuterol Sulfate [Proair HFA Inhalation Aerosol 8.5 gm MDI] 2 puff IH Q4H PRN #1 mdi PRN Reason: Referrals: [facility] [Primary Care Provider] - Follow up as needed
[2019-07-08 23:16] VITALS: BP 129/73
== END 2019-07-08 23:16 | disposition home or self-care (01) ==
LOC: ER 16:44
DX: I11.0 Hypertensive heart disease with heart failure (principal); I50.22 Chronic systolic (congestive) heart failure; J44.9 Chronic obstructive pulmonary disease, unspecified; J90 Pleural effusion, not elsewhere classified; F17.210 Nicotine dependence, cigarettes, uncomplicated; Z88.1 Allergy status to other antibiotic agents; Z88.8 Allergy status to other drugs, medicaments and biological substances; Z88.0 Allergy status to penicillin
CPT/HCPCS: 93005; 99285; 96374; 36415; 82550; 85025; 80053; 81001; 84484; 83880; 71045; 93010; J1940

== ENCOUNTER 2019-07-14 13:15 | Emergency (ER) | payer OTHER, MEDICARE ==
--- NOTE | 2019-07-14 13:37 | ER Document Report ---
ED Medical Screen (RME) - General Chief Complaint: Leg Pain Stated Complaint: BILATERAL LEG PAIN Time Seen by Provider: 07/14/19 13:33 [facility] [[facility] - Follow up as needed Mode of Arrival: Medic Information source: Patient Notes: 69-year-old male presented to ED with complaint of pain to bilateral lower extremities. Both legs are 3+ or greater edematous. He does have pedal pulses faint bilaterally. He does have a history of CHF. He states that he was seen here recently for CHF and started on Lasix but his PA at the [facility] would not let him have it until the last week and now he is on the Lasix. I have greeted and performed a rapid initial assessment of this patient. A comprehensive ED assessment and evaluation of the patient, analysis of test results and completion of medical decision making process will be conducted by an additional ED providers. TRAVEL OUTSIDE OF THE [place] IN LAST 30 DAYS: No - Related Data Allergies/Adverse Reactions: vancomycin Allergy (Unknown, Verified 05/28/19 05:34) azithromycin Allergy (Verified 05/28/19 05:34) ketorolac [From Toradol] Allergy (Verified 05/28/19 05:34) Penicillins Allergy (Verified 05/28/19 05:34) Past Medical History - Past Medical History Cardiac Medical History: Reports: Hx Congestive Heart Failure - Chronic systolic congestive heart failure with ejection fraction of 25%, Hx Heart Attack, Hx Hypertension Denies: Hx Atrial Fibrillation, Hx Coronary Artery Disease, Hx Hypercholesterolemia Pulmonary Medical History: Reports: Hx Asthma, Hx Bronchitis, Hx COPD Neurological Medical History: Denies: Hx Seizures Endocrine Medical History: Denies: Hx Diabetes Mellitus Type 1, Hx Diabetes Mellitus Type 2, Hx Hyperthyroidism, Hx Hypothyroidism Renal/ Medical History: Denies: Hx Peritoneal Dialysis GI Medical History: Denies: Hx Cirrhosis, Hx Hepatitis Musculoskeltal Medical History: Denies Hx Arthritis, Denies Hx Gout Skin Medical History: Denies Hx Eczema, Denies Hx Psoriasis Infectious Medical History: Denies: Hx Hepatitis Past Surgical History: Reports: Hx Abdominal Surgery, Hx Cholecystectomy, Hx Gastric Bypass Surgery, Other - Gallbladder - Immunizations Immunizations up to date: Yes Hx Diphtheria, Pertussis, Tetanus Vaccination: Yes Doctor's Discharge - Discharge Referrals: [facility] [[facility]] - Follow up as needed
[2019-07-14 14:08] LABS: ABSOLUTE EOSINOPHILS # (AUTO) 0.1 10^3/uL (0.0-0.6); ABSOLUTE LYMPHOCYTES (AUTO) 0.9 10^3/uL (0.5-4.7); ABSOLUTE MONOCYTES (AUTO) 0.6 10^3/uL (0.1-1.4); ABSOLUTE NEUT (AUTO) 4.2 10^3/uL (1.7-8.2); BASOPHILS % (AUTO) 0.7 % (0-2); HEMATOCRIT 30.4 % (37.9-51.0); HEMOGLOBIN 10.2 g/dL (13.5-17.0); LYMPHOCYTES % (AUTO) 15.1 % (13-45); MEAN CORPUSCULAR HEMOGLOBIN 26.7 pg (27.0-33.4); MEAN CORPUSCULAR HGB CONC 33.4 g/dL (32.0-36.0); MEAN CORPUSCULAR VOLUME 80 fl (80-97); MONOCYTES % (AUTO) 9.9 % (3-13); PLATELET COUNT 130 10^3/uL (150-450); RED BLOOD COUNT 3.81 10^6/uL (4.35-5.55); RED CELL DISTRIBUTION WIDTH 18.6 % (11.5-14.0); SEGMENTED NEUTROPHILS % (AUTO) 72.3 % (42-78); TOTAL CELLS COUNTED % (AUTO) 100 %; WHITE BLOOD COUNT 5.9 10^3/uL (4.0-10.5)
--- NOTE | 2019-07-14 14:19 | RADIOLOGY REPORT (SQ) ---
EXAM DESCRIPTION: CHEST 2 VIEWS COMPLETED DATE/TIME: 07/14/2019 2:04 pm REASON FOR STUDY: pedal edema COMPARISON: 07/08/2019 EXAM PARAMETERS: NUMBER OF VIEWS: two views TECHNIQUE: Digital Frontal and Lateral radiographic views of the chest acquired. RADIATION DOSE: NA LIMITATIONS: none FINDINGS: LUNGS AND PLEURA: Lung venegas are hyperexpanded with bilateral pleural effusions. MEDIASTINUM AND HILAR STRUCTURES: No masses or contour abnormalities. HEART AND VASCULAR STRUCTURES: Heart is slightly enlarged but stable in appearance. No overt failure . BONES: No acute findings. HARDWARE: None in the chest. OTHER: No other significant finding. IMPRESSION: COPD with bilateral pleural effusions. No evidence of overt failure. TECHNICAL DOCUMENTATION: JOB ID: [id number] [employer]- All Rights Reserved Reading location - IP/workstation name: [email or web address]
[2019-07-14 14:20] LABS: ALBUMIN 3.2 g/dL (3.5-5.0); ALKALINE PHOSPHATASE 116 U/L (38-126); ANION GAP 8 (5-19); ASPARTATE AMINO TRANSFERASE 30 U/L (17-59); BILIRUBIN,DIRECT 0.2 mg/dL (0.0-0.4); BILIRUBIN,TOTAL 1.1 mg/dL (0.2-1.3); BLOOD UREA NITROGEN 17 mg/dL (7-20); CALCIUM 8.2 mg/dL (8.4-10.2); CARBON DIOXIDE 31 mmol/L (22-30); CHLORIDE 97 mmol/L (98-107); CREATINE KINASE 50 U/L (55-170); GLUCOSE 90 mg/dL (75-110); TOTAL PROTEIN 6.8 g/dL (6.3-8.2)
[2019-07-14 14:32] LABS: CREATINE KINASE MB 1.7 ng/mL (<4.55); POTASSIUM 2.9 mmol/L (3.6-5.0); TROPONIN I 0.027 ng/mL
[2019-07-14 14:50] LABS: INTERNATIONAL RATION (INR) 1.41; PROTHROMBIN TIME 17.4 SEC (11.4-15.4)
[2019-07-14 14:51] LABS: PARTIAL THROMBOPLASTIN TIME 36.5 SEC (23.5-35.8)
[2019-07-14] MEDS ORDERED: POTASSIUM CHLORIDE 10 MEQ CAPSULE.ER PO ONE ×2 (15:02→16:50)
[2019-07-14] MEDS: MAGNESIUM SULFATE/D5W 1 GM/100 ML RTUPB IV SCH ×2 (15:26→16:30)
--- NOTE | 2019-07-14 16:54 | EKG REPORT ---
SEVERITY:- ABNORMAL ECG - SINUS RHYTHM NONSPECIFIC T ABNORMALITIES, LATERAL LEADS : Confirmed by: Edu Baker MD 14-Jul-2019 16:53:36
--- NOTE | 2019-07-14 17:07 | ER Document Report ---
ED General - General Chief Complaint: Leg Pain Stated Complaint: BILATERAL LEG PAIN Time Seen by Provider: 07/14/19 13:33 [facility] [[facility]] - Follow up as needed (Please wear Michael bandages as compression stockings and keep your feet elevated 20 to 30 degrees at all times when lying down. Continue to take your Lasix. [facility] if symptoms not improving for consideration of lab redraw as well as increase or change to your diuretics.) Mode of Arrival: Medic TRAVEL OUTSIDE OF THE [place] IN LAST 30 DAYS: No - HPI Notes: Patient presents from home concern of bilateral pitting edema. Patient has a history of CHF. He is here on 07/08/2019 for similar issues. He is currently on 20 mg of Lasix daily. He does not wear any compression stockings. He is not been any recent cough congestion fevers or chest pain. - Related Data Allergies/Adverse Reactions: vancomycin Allergy (Unknown, Verified 05/28/19 05:34) azithromycin Allergy (Verified 05/28/19 05:34) ketorolac [From Toradol] Allergy (Verified 05/28/19 05:34) Penicillins Allergy (Verified 05/28/19 05:34) Past Medical History - General Information source: Patient - Social History Smoking Status: Current Every Day Smoker Frequency of alcohol use: None Drug Abuse: Marijuana Family History: Reviewed & Not Pertinent, CAD, COPD, Hypertension Patient has suicidal ideation: No Patient has homicidal ideation: No - Past Medical History Cardiac Medical History: Reports: Hx Congestive Heart Failure - Chronic systolic congestive heart failure with ejection fraction of 25%, Hx Heart Attack, Hx Hypertension Denies: Hx Atrial Fibrillation, Hx Coronary Artery Disease, Hx Hypercholesterolemia Pulmonary Medical History: Reports: Hx Asthma, Hx Bronchitis, Hx COPD Neurological Medical History: Denies: Hx Seizures Endocrine Medical History: Denies: Hx Diabetes Mellitus Type 1, Hx Diabetes Mellitus Type 2, Hx Hyperthyroidism, Hx Hypothyroidism Renal/ Medical History: Denies: Hx Peritoneal Dialysis GI Medical History: Denies: Hx Cirrhosis, Hx Hepatitis Musculoskeletal Medical History: Denies Hx Arthritis, Denies Hx Gout Skin Medical History: Denies Hx Eczema, Denies Hx Psoriasis Infectious Medical History: Denies: Hx Hepatitis Past Surgical History: Reports: Hx Abdominal Surgery, Hx Cholecystectomy, Hx Gastric Bypass Surgery, Hx Orthopedic Surgery - Left knee surgery, left wrist surgery, Other - Gallbladder - Immunizations Immunizations up to date: Yes Hx Diphtheria, Pertussis, Tetanus Vaccination: Yes Review of Systems - Review of Systems Constitutional: No symptoms reported EENT: No symptoms reported Cardiovascular: No symptoms reported Respiratory: No symptoms reported Gastrointestinal: No symptoms reported Genitourinary: No symptoms reported Male Genitourinary: No symptoms reported Musculoskeletal: See HPI Skin: No symptoms reported Hematologic/Lymphatic: No symptoms reported Neurological/Psychological: No symptoms reported Physical Exam - Vital signs Vitals: Temp Pulse Resp BP Pulse Ox 98.4 F 95 20 109/64 100 07/14/19 13:47 07/14/19 13:47 07/14/19 13:47 07/14/19 13:47 07/14/19 13:47 - General General appearance: Appears well, Alert - HEENT Head: Normocephalic, Atraumatic Eyes: Normal Conjunctiva: Normal Extraocular movements intact: Yes Pupils: PERRL - Respiratory Respiratory status: No respiratory distress Chest status: Nontender Breath sounds: Other - Good air movement mild crackles bilateral lower basilar lung venegas - Cardiovascular Rhythm: Regular Heart sounds: Normal auscultation Murmur: No - Abdominal Inspection: Normal Distension: No distension Bowel sounds: Normal - Extremities General upper extremity: Normal inspection, Normal ROM General lower extremity: Other - 2/3+ bilateral pitting edema no signs of cellulitis. - Neurological Neuro grossly intact: Yes Cognition: Normal Orientation: AAOx4 Course - Re-evaluation Re-evalutation: 07/14/19 17:09 Patient was found to have potassium of 2.9 and magnesium 1.4. 2 g of magnesium IV was provided and a total of 80 mEq of K-Dur was provided. Patient was ambulated without oxygen and his oxygen saturation maintained between 95 to 99%. His labs otherwise are within normal limits are nonsignificant are trending within his baseline. His proBNP is actually improved from prior visit on 07/08/2019 his chest x-ray shows no interval changes from prior with mild bilateral pleural effusions. I discussed with patient to continue taking his Lasix and we would also provide Michael wraps to use his compression stockings. He is to keep his feet elevated 20 to 30 degrees at all times when he is lying down. He is to follow-up with his primary care physician in the next week if his symptoms not improving for lab redrawn consideration of increase or change in his diuretics if symptoms are not improving. Patient understands and agrees with plan. 07/14/19 17:10 07/14/19 17:11 - Vital Signs Vital signs: Temp Pulse Resp BP Pulse Ox 98.4 F 95 20 109/64 100 07/14/19 13:47 07/14/19 13:47 07/14/19 13:47 07/14/19 13:47 07/14/19 13:47 - Laboratory Result Diagrams: 07/14/19 13:46 07/14/19 13:46 Laboratory results interpreted by me: 07/14/19 07/14/19 07/14/19 13:46 13:46 13:46 RBC 3.81 L Hgb 10.2 L Hct 30.4 L MCH 26.7 L RDW 18.6 H Plt Count 130 L PT APTT Sodium 135.8 L Potassium 2.9 L* Chloride 97 L Carbon Dioxide 31 H Calcium 8.2 L Magnesium 1.4 L Creatine Kinase 50 L NT-Pro-B Natriuret Pep 16394 H Albumin 3.2 L 07/14/19 13:46 RBC Hgb Hct MCH RDW Plt Count PT 17.4 H APTT 36.5 H Sodium Potassium Chloride Carbon Dioxide Calcium Magnesium Creatine Kinase NT-Pro-B Natriuret Pep Albumin - Diagnostic Test Radiology reviewed: Image reviewed, Reports reviewed - EKG Interpretation by Me Additional EKG results interpreted by me: 07/14/19 17:13 Time 1333 Rate 82, normal sinus rhythm, normal axis and intervals, PVCs present, no concerning ST elevations or depressions, no significant change from 07/08/2019 Discharge - Discharge Clinical Impression: Bilateral pitting edema, History of congestive heart failure Condition: Good Disposition: HOME, SELF-CARE Instructions: Congestive Heart Failure ([facility]), Edema, Peripheral ([facility]) [facility]errals: [facility] [[facility]] - Follow up as needed (Please wear Michael bandages as compression stockings and keep your feet elevated 20 to 30 degrees at all times when lying down. Continue to take your Lasix. [facility] 7 days if symptoms not improving for consideration of lab redraw as well as increase or change to your diuretics.)
[2019-07-14] MEDS ORDERED: POTASSIUM CHLORIDE 20 MEQ PACKET PO ONE ×2 (17:09→17:15)
[2019-07-14] MEDS ORDERED: ONDANSETRON HCL INJ/PF 4 MG/2 ML SDV IV ONE (17:44)
[2019-07-14 19:35] VITALS: BP 101/72
== END 2019-07-14 19:35 | disposition home or self-care (01) ==
LOC: ER 13:15
DX: R60.0 Localized edema (principal); I11.0 Hypertensive heart disease with heart failure; I50.9 Heart failure, unspecified; M79.604 Pain in right leg; M79.605 Pain in left leg; Z79.899 Other long term (current) drug therapy; F17.200 Nicotine dependence, unspecified, uncomplicated; I25.2 Old myocardial infarction; J44.9 Chronic obstructive pulmonary disease, unspecified
CPT/HCPCS: 93005; 99284; 96375; 96365; 96366; 36415; 82553; 82550; 83735; 85025; 85610; 85730; 80053; 84484; 83880; 71046; 93010; J3475; J2405; J3490

== ENCOUNTER 2019-07-18 15:36 | Inpatient (IN) | payer OTHER, MEDICARE ==
[2019-07-18 17:08] LABS: ABSOLUTE BASOPHILS # (AUTO) 0.1 10^3/uL (0.0-0.2); ABSOLUTE EOSINOPHILS # (AUTO) 0.3 10^3/uL (0.0-0.6); ABSOLUTE LYMPHOCYTES (AUTO) 1.2 10^3/uL (0.5-4.7); ABSOLUTE MONOCYTES (AUTO) 0.8 10^3/uL (0.1-1.4); MEAN CORPUSCULAR HEMOGLOBIN 26.6 pg (27.0-33.4); SEGMENTED NEUTROPHILS % (AUTO) 68.6 % (42-78); TOTAL CELLS COUNTED % (AUTO) 100 %
[2019-07-18 17:12] LABS: ABSOLUTE NEUT (AUTO) 5.2 10^3/uL (1.7-8.2); BASOPHILS % (AUTO) 1.3 % (0-2); HEMATOCRIT 33.4 % (37.9-51.0); HEMOGLOBIN 10.9 g/dL (13.5-17.0); LYMPHOCYTES % (AUTO) 15.4 % (13-45); MEAN CORPUSCULAR HGB CONC 32.6 g/dL (32.0-36.0); MEAN CORPUSCULAR VOLUME 82 fl (80-97); MONOCYTES % (AUTO) 10.7 % (3-13); PLATELET COUNT 182 10^3/uL (150-450); RED BLOOD COUNT 4.08 10^6/uL (4.35-5.55); RED CELL DISTRIBUTION WIDTH 19.5 % (11.5-14.0); WHITE BLOOD COUNT 7.5 10^3/uL (4.0-10.5)
[2019-07-18 17:23] LABS: ALBUMIN 3.4 g/dL (3.5-5.0); ALKALINE PHOSPHATASE 152 U/L (38-126); ANION GAP 11 (5-19); ASPARTATE AMINO TRANSFERASE 69 U/L (17-59); BILIRUBIN,DIRECT 0.3 mg/dL (0.0-0.4); BILIRUBIN,TOTAL 0.5 mg/dL (0.2-1.3); BLOOD UREA NITROGEN 20 mg/dL (7-20); CALCIUM 8.2 mg/dL (8.4-10.2); CARBON DIOXIDE 28 mmol/L (22-30); CHLORIDE 101 mmol/L (98-107); GLUCOSE 82 mg/dL (75-110); TOTAL PROTEIN 7.2 g/dL (6.3-8.2)
[2019-07-18 18:04] LABS: APPEARANCE,URINE CLEAR; BILIRUBIN,URINE NEGATIVE (NEGATIVE); COLOR,URINE STRAW; GLUCOSE, URINE NEGATIVE (NEGATIVE); KETONES,URINE NEGATIVE (NEGATIVE); LEUKOCYTE ESTERASE,URINE NEGATIVE (NEGATIVE); NITRITE,URINE NEGATIVE (NEGATIVE); PROTEIN,URINE NEGATIVE (NEGATIVE); URINE SPECIFIC GRAVITY 1.006; UROBILINOGEN,URINE NEGATIVE mg/dL (<2.0)
[2019-07-18 18:09] LABS: TROPONIN I 0.018 ng/mL
--- NOTE | 2019-07-18 19:41 | RADIOLOGY REPORT (SQ) ---
EXAM DESCRIPTION: CTA CHEST COMPLETED DATE/TIME: 07/18/2019 7:22 pm REASON FOR STUDY: sob COMPARISON: 01/18/2019 TECHNIQUE: CT scan of the chest performed using helical scanning technique with dynamic intravenous contrast injection. Images reviewed with lung, soft tissue and bone windows. Reconstructed coronal and sagittal MPR images reviewed. Additional 3 dimensional post-processing performed to develop Maximal Intensity Projection images (MS P). All images stored on PACS. All CT scanners at this facility use dose modulation, iterative reconstruction, and/or weight based d osing when appropriate to reduce radiation dose to as low as reasonably achievable (ALARA). [facility]: Dose Right [facility]: CareDose [facility]: Dose Right [facility]: Teradose 4D [facility]: PCT International CONTRAST TYPE AND DOSE: contrast/concentration: Isovue 350.00 mg/ml; Total Contrast Delivered: 65.0 ml; Total Saline Delivered: 60.9 ml Contrast bolus optimized for the pulmonary arteries. Not diagnostic for the aorta. RENAL FUNCTION: BUN 20 creatinine 0.9 RADIATION DOSE: CT Rad equipment meets quality standard of care and radiation dose reduction techniq ues were employed. CTDIvol: 13.2 - 14.3 mGy. DLP: 541 mGy-cm. . LIMITATIONS: None. FINDINGS: LUNGS AND PLEURA: Bilateral pleural effusions, right greater than left. Pulmonary vascula r congestion. No pulmonary mass. Mild atelectatic changes in the lung bases. AORTA AND GREAT VESSELS: No aneurysm. Contrast bolus not optimized for the aorta. HEART: Cardiomegaly. No pericardial effusion. Moderate to marked coronary artery calcifications. PULMONARY ARTERIES: No emboli visualized in the main pulmonary arteries or the segmental branches. HILAR AND MEDIASTINAL STRUCTURES: No identified masses or abnormal nodes. HARDWARE: None in the chest. UPPER ABDOMEN: There appears to be a small amount ascites. THYROID AND OTHER SOFT TISSUES: No masses. No adenopathy. BONES: No acute or significant finding. 3D MIPS: Confirm above findings. OTHER: No other significant finding. IMPRESSION: There is no pulmonary embolus. There is no aortic aneurysm. There is cardiomegaly with pulmonary vascular congestion. There is no florid pulmonary edema. There are bilateral pleural eff usions. COMMENT: Quality ID # [id number]: Final reports with documentation of one or more dose reduction techniques (e.g., Automated exposure control, adjustment of the mA and/or kV according to patient size, use of iterative reconstruction technique) TECHNICAL DOCUMENTATION: JOB ID: [id number] [employer]- All Rights Reserved Reading location - IP/workstation name: [email or web address]
--- NOTE | 2019-07-18 20:12 | ER Document Report ---
ED General - General Chief Complaint: Breathing Difficulty Stated Complaint: DIFFICULTY BREATHING Time Seen by Provider: 07/18/19 15:50 Mode of Arrival: Medic Information source: Patient TRAVEL OUTSIDE OF THE [place] IN LAST 30 DAYS: No - HPI Notes: Patient presents complaining of shortness of breath as well as bilateral lower extremity pain and swelling. Patient states this is been going on for several weeks. He states his been to the emergency room several times but does not feel any better. He states he is also had a cough that is mostly been nonproductive. No fever sweats or chills. Patient states he is not on home oxygen. He states he does continue to smoke. He states he has been wrapping his legs with the Michael wraps as instructed but it is not helping. The leg pain is a pressure sensation. It is moderate in intensity. Is worse with exertion and better with rest. It does radiate up both legs. He states he has been taking his water pills as prescribed. - Related Data Allergies/Adverse Reactions: vancomycin Allergy (Unknown, Verified 05/28/19 05:34) azithromycin Allergy (Verified 05/28/19 05:34) ketorolac [From Toradol] Allergy (Verified 05/28/19 05:34) Penicillins Allergy (Verified 05/28/19 05:34) Past Medical History - General Information source: Patient - Social History Smoking Status: Current Every Day Smoker Frequency of alcohol use: None Drug Abuse: None Family History: Reviewed & Not Pertinent, CAD, COPD, Hypertension Patient has suicidal ideation: No Patient has homicidal ideation: No - Past Medical History Cardiac Medical History: Reports: Hx Congestive Heart Failure - Chronic systolic congestive heart failure with ejection fraction of 25%, Hx Heart Attack, Hx Hypertension Denies: Hx Atrial Fibrillation, Hx Coronary Artery Disease, Hx Hypercholesterolemia Pulmonary Medical History: Reports: Hx Asthma, Hx Bronchitis, Hx COPD Neurological Medical History: Denies: Hx Seizures Endocrine Medical History: Denies: Hx Diabetes Mellitus Type 1, Hx Diabetes Mellitus Type 2, Hx Hyperthyroidism, Hx Hypothyroidism Renal/ Medical History: Denies: Hx Peritoneal Dialysis GI Medical History: Denies: Hx Cirrhosis, Hx Hepatitis Musculoskeletal Medical History: Denies Hx Arthritis, Denies Hx Gout Skin Medical History: Denies Hx Eczema, Denies Hx Psoriasis Infectious Medical History: Denies: Hx Hepatitis Past Surgical History: Reports: Hx Abdominal Surgery, Hx Cholecystectomy, Hx Gastric Bypass Surgery, Hx Orthopedic Surgery - Left knee surgery, left wrist surgery, Other - Gallbladder - Immunizations Immunizations up to date: Yes Hx Diphtheria, Pertussis, Tetanus Vaccination: Yes Review of Systems - Review of Systems Constitutional: denies: Chills, Fever Cardiovascular: denies: Chest pain, Palpitations Respiratory: Cough, Short of breath Skin: Rash -: Yes All other systems reviewed and negative Physical Exam - Vital signs Vitals: Pulse Ox 97 07/18/19 15:45 Interpretation: Normal - General General appearance: Appears well, Alert In distress: None - HEENT Head: Normocephalic, Atraumatic Eyes: Normal Pupils: PERRL - Respiratory Respiratory status: No respiratory distress Chest status: Nontender Breath sounds: Decreased air movement - Bilaterally Chest palpation: Normal - Cardiovascular Rhythm: Regular Heart sounds: Normal auscultation Murmur: No - Abdominal Inspection: Normal Distension: No distension Bowel sounds: Normal Tenderness: Nontender Organomegaly: No organomegaly - Back Back: Normal, Nontender - Extremities General upper extremity: Normal inspection, Nontender, Normal color, Normal ROM, Normal temperature General lower extremity: Edema - 2+ lower extremity pitting edema bilaterally. The right lower extremity does have some tenderness and erythema that is blanching on the dorsum of the foot. It is consistent with a possible early cellulitis. - Neurological Neuro grossly intact: Yes Cognition: Normal Orientation: AAOx4 [place] Coma Scale Eye Opening: Spontaneous Germaine Coma Scale Verbal: Oriented B[place] Coma Scale Motor: Obeys Commands [place] Coma Scale Total: 15 Speech: Normal Motor strength normal: LUE, RUE, LLE, RLE Sensory: Normal - Psychological Associated symptoms: Normal affect, Normal mood - Skin Skin Temperature: Warm Skin Moisture: Dry Skin Color: Normal Course - Re-evaluation Re-evalutation: 07/18/19 20:10 Patient presents with shortness of breath and lower extremity swelling and pain. His BNP is improved significantly from previous. His chest CT shows no infection or pulmonary embolism. He does have some venous congestion and effusions but no pulmonary edema. Since his been here he has had a productive cough. He has been mildly tachypneic and tachycardic. This is his third visit in approximately 1 week for dyspnea. I will start him on some antibiotics and consult the hospitalist for admission. I discussed antibiotics as well as steroids and diuretic with the hospitalist. He states he would take care of the medical management. 07/18/19 20:27 07/18/19 20:37 07/18/19 20:37 - Vital Signs Vital signs: Temp Pulse Resp BP Pulse Ox 98.6 F 23 H 126/76 H 99 07/18/19 15:50 07/18/19 19:01 07/18/19 19:00 07/18/19 20:00 - Laboratory Result Diagrams: 07/18/19 16:45 07/18/19 16:45 Laboratory results interpreted by me: 07/18/19 07/18/19 07/18/19 16:45 16:45 16:45 RBC 4.08 L Hgb 10.9 L Hct 33.4 L MCH 26.6 L RDW 19.5 H Calcium 8.2 L AST 69 H Alkaline Phosphatase 152 H NT-Pro-B Natriuret Pep 8990 H Albumin 3.4 L - Diagnostic Test Radiology reviewed: Image reviewed, Reports reviewed - EKG Interpretation by Me EKG shows normal: Sinus rhythm Rate: Normal - 100 Rhythm: NSR Gilby/QRS: Right axis deviation Discharge - Discharge Clinical Impression: Cellulitis of foot, right CHF (congestive heart failure) Qualifiers: Heart failure type: unspecified Heart failure chronicity: chronic Qualified Code(s): I50.9 - Heart failure, unspecified COPD (chronic obstructive pulmonary disease) Qualifiers: COPD type: COPD with acute exacerbation Qualified Code(s): J44.1 - Chronic obstructive pulmonary disease with (acute) exacerbation Condition: Fair Disposition: ADMITTED INPATIENT Admitting Provider: Mata (Hospitalist) Unit Admitted: Medical Floor Additional Instructions: Please call your primary doctor as soon as possible to arrange follow-up
[2019-07-18] MEDS ORDERED: MAGNESIUM HYDROXIDE SUSP 30 ML UDCUP PO PRN (21:12)
[2019-07-18] MEDS ORDERED: ACETAMINOPHEN 325 MG TABLET PO PRN (21:12)
[2019-07-18] MEDS ORDERED: MORPHINE SULFATE 10 MG/ML INJ IV ONE (21:12)
[2019-07-18] MEDS ORDERED: MAG HYDROX/AL HYDROX/SIMETH SUSP 30 ML UDCUP PO PRN (21:12)
[2019-07-18] MEDS ORDERED: CHLORPROMAZINE HCL INJ 25 MG/1 ML AMPULE IV PRN ×2 (21:54→22:30)
[2019-07-18] MEDS ORDERED: DIAZEPAM INJ 10 MG/2 ML DISP.SYRIN IV PRN (21:54)
[2019-07-18] MEDS ORDERED: DIGOXIN INJ 0.5 MG/2 ML AMPULE IV ONE (22:00)
[2019-07-18] MEDS: LEVOFLOXACIN 750 MG TABLET PO SCH (22:54)
[2019-07-18] MEDS: FAMOTIDINE 20 MG TABLET PO SCH (22:54)
[2019-07-18] MEDS: PROMETHAZINE HCL INJ 25 MG/1 ML VIAL IV PRN (23:02)
[2019-07-18] MEDS: HEPARIN SOD (PORCINE) 5,000 UNIT/ML 1 ML VIAL SUBCUT SCH (23:03)
[2019-07-18] MEDS: MORPHINE SULFATE 10 MG/ML INJ IV PRN (23:15)
[2019-07-18 23:16] LABS: CREATINE KINASE 42 U/L (55-170)
[2019-07-18 23:17] LABS: DIGOXIN < 0.40 ng/mL (0.8-2.0)
[2019-07-18 23:26] LABS: CREATINE KINASE MB 1.83 ng/mL (<4.55); TROPONIN I 0.018 ng/mL
--- NOTE | 2019-07-19 00:26 | PDOC H&P ---
History of Present Illness Admission Date/PCP: 07/18/2019 20:39 [facility] Patient complains of: Dyspnea History of Present Illness: DURAN TELLES is a 69 year old male who presented to the emergency room for his third visit in 1 week with a 1 month history of dyspnea. He admits to gradually worsening dyspnea over the last month and particularly over the last week. His dyspnea has been accompanied by orthopnea, increasing swelling in his bilateral lower extremities and a nonproductive cough. His dyspnea is worsened by exertion and improved with rest. Swelling in his legs causes a moderate pressure pain sensation and he noticed redness with increased warmth in his swollen right foot today. He has been seen in the emergency room 3 times and has been treated with additional nebulizers, additional Lasix and prednisone without improvement. He admits prior similar episodes related to his COPD and congestive heart failure. He has not identified any additional aggravating or a meliorating factors for his dyspnea. In the emergency room he was found to have an O2 sat of 94% on room air but was noted to be tachycardic and have increased edema of his lower extremities compared to previous exams. His BNP was noted to be elevated at 8990, his CT scan showed cardiomegaly and pulmonary vascular congestion with bilateral pleural effusions. He was also noted to have mild erythema of his right foot which was a new finding. He was subsequently admitted for further evaluation and treatment. Past Medical History Cardiac Medical History: Reports: Congestive Heart Failure - Chronic systolic congestive heart failure with ejection fraction of 25%, Myocardial Infarction, Hypertension, Peripheral Vascular Disease - Chronic venous stasis Denies: Atrial Fibrillation, Coronary Artery Disease, DVT, Hyperlipidema, Pulmonary Embolism Pulmonary Medical History: Reports: Asthma, Bronchitis, Chronic Obstructive Pulmonary Disease (COPD), Pneumonia, Respiratory Failure EENT Medical History: Reports: Cataracts Denies: Ears - Hearing aids Neurological Medical History: Denies: Hemorrhagic CVA, Ischemic CVA, Seizures Endocrine Medical History: Reports: Hypothyroidism - Recently diagnosed Denies: Diabetes Mellitus Type 1, Diabetes Mellitus Type 2, Hyperthyroidism Renal/ Medical History: Denies: Chronic Kidney Disease, Nephrolithiasis Malignancy Medical History: Reports: None GI Medical History: Reports: Cirrhosis - Alcoholic cirrhosis, Hiatal Hernia, Other - Hemorrhoids, ascites Denies: Hepatitis Musculoskeltal Medical History: Denies: Arthritis, Gout Skin Medical History: Denies: Eczema, Psoriasis Psychiatric Medical History: Reports: Alcohol Dependency, Post Traumatic Stress Disorder, Tobacco Dependency Denies: Substance Abuse Traumatic Medical History: Reports: None Hematology: Reports: Anemia - Chronic Denies: Bleeding Tendencies Infectious Medical History: Reports: None Past Surgical History Past Surgical History: Reports: Cholecystectomy, Gastric Bypass Surgery - Patient claims surgical procedure done, no evidence noted on x-rays or CT's, Or thopedic Surgery - Left knee surgery, left wrist surgery Social History Information Source: Patient Lives with: Spouse/Significant other Smoking Status: Current Every Day Smoker Frequency of Alcohol Use: Heavy Hx Recreational Drug Use: No Drugs: None Hx Prescription Drug Abuse: No - Advance Directive Resuscitation Status: Full Code Surrogate healthcare decision maker:: Reina Telles Family History Family History: CAD, COPD, Hypertension Parental Family History Reviewed: Yes Children Family History Reviewed: No Sibling(s) Family History Reviewed.: Yes Medication/Allergy Home Medications: Budesonide/Formoterol Fumarate [Symbicort HFA 160-4.5 mcg Inhaler 6 gm] 2 puff IH Q12 05/23/19 Folic Acid [Folvite 1 mg Tablet] 1 mg PO QAM 05/23/19 Gabapentin [Neurontin 300 mg Capsule] 1,200 mg PO Q8 05/23/19 Spironolactone [Aldactone 25 mg Tablet] 25 mg PO DAILY 05/23/19 Tramadol HCl [Ultram 50 mg Tablet] 100 mg PO Q8 05/23/19 Furosemide [Lasix 20 mg Tablet] 20 mg PO QAM #30 tablet 05/25/19 Lisinopril [Prinivil 2.5 mg Tablet] 2.5 mg PO DAILY 30 Days #30 tablet 05/25/19 Metoprolol Tartrate [Lopressor 25 mg Tablet] 12.5 mg PO Q12 30 Days #60 tab 05/25/19 Albuterol Sulfate [Proair HFA Inhalation Aerosol 8.5 gm MDI] 2 puff IH Q4H PRN #1 mdi 07/08/19 Allergies/Adverse Reactions: vancomycin Allergy (Unknown, Verified 05/28/19 05:34) azithromycin Allergy (Verified 05/28/19 05:34) ketorolac [From Toradol] Allergy (Verified 05/28/19 05:34) Penicillins Allergy (Verified 05/28/19 05:34) Review of Systems Constitutional: ABSENT: chills, fever(s) Eyes: ABSENT: visual disturbances, other - Eye pain Ears: ABSENT: hearing changes, other - Ear pain Nose, Mouth, and Throat: ABSENT: mouth pain, sore throat Cardiovascular: PRESENT: as per HPI, dyspnea on exertion, edema, orthropnea. ABSENT: chest pain, palpitations Respiratory: PRESENT: as per HPI, cough, dyspnea. ABSENT: sputum Gastrointestinal: ABSENT: abdominal pain, constipation, diarrhea, nausea, vomiting Genitourinary: ABSENT: dysuria, hematuria Musculoskeletal: ABSENT: back pain, joint swelling, muscle weakness Integumentary: ABSENT: pruritus, rash Neurological: ABSENT: confusion, convulsions, focal weakness, memory loss, syncope Psychiatric: ABSENT: anxiety, depression Endocrine: ABSENT: cold intolerance, heat intolerance Hematologic/Lymphatic: ABSENT: easy bleeding, easy bruising Allergic/Immunologic: ABSENT: seasonal rhinorrhea Physical Exam Vital Signs: Temp Pulse Resp BP Pulse Ox 98.6 F 23 H 126/76 H 99 07/18/19 15:50 07/18/19 19:01 07/18/19 19:00 07/18/19 20:00 General appearance: PRESENT: no acute distress, cooperative Head exam: PRESENT: atraumatic, normocephalic Eye exam: PRESENT: conjunctiva pink. ABSENT: conjunctival injection, scleral icterus Ear exam: PRESENT: normal external ear exam. ABSENT: bleeding, drainage Mouth exam: PRESENT: dry mucosa, neck supple Neck exam: ABSENT: JVD, thyromegaly, tracheal deviation Respiratory exam: PRESENT: prolonged expiratory phas - Minimally prolonged expiratory phase noted in all [place], rales - Bibasilar rales noted on auscultation, symmetrical, wheezes - Mild expiratory wheezes present in all [place]. ABSENT: rhonchi Cardiovascular exam: PRESENT: gallop - Faint S4 gallop, RRR, tachycardia. ABSENT: clicks, rubs Pulses: PRESENT: normal radial pulses, normal dorsalis pedis pul Vascular exam: PRESENT: normal capillary refill. ABSENT: pallor GI/Abdominal exam: PRESENT: normal bowel sounds, soft Rectal exam: PRESENT: deferred Extremities exam: PRESENT: pedal edema, tenderness - Mild tenderness palpation in the edematous areas of the bilateral lower extremities, +2 edema - 2+ pitting pretibial edema bilaterally Musculoskeletal exam: ABSENT: deformity, dislocation Neurological exam: PRESENT: alert, oriented to person, oriented to place, oriented to time, oriented to situation, CN II-XII grossly intact. ABSENT: motor sensory deficit Psychiatric exam: PRESENT: appropriate affect, normal mood Skin exam: PRESENT: dry, intact, warm, other - Mild erythema and increased warmth with slightly greater tenderness on palpation noted on the dorsum of the right foot compared to the left.. ABSENT: jaundice, rash, urticaria Results Laboratory Results: 07/18/19 16:45 07/18/19 16:45 07/18/19 07/18/19 07/18/19 16:45 16:45 17:45 WBC 7.5 RBC 4.08 L Hgb 10.9 L Hct 33.4 L MCV 82 MCH 26.6 L MCHC 32.6 RDW 19.5 H Plt Count 182 Seg Neutrophils % 68.6 Sodium 140.1 Potassium 4.0 Chloride 101 Carbon Dioxide 28 Anion Gap 11 BUN 20 Creatinine 0.90 Est GFR ( Amer) > 60 Glucose 82 Calcium 8.2 L Total Bilirubin 0.5 AST 69 H Alkaline Phosphatase 152 H Total Protein 7.2 Albumin 3.4 L Urine Color STRAW Urine Appearance CLEAR Urine pH 6.0 Ur Specific [place] 1.006 Urine Protein NEGATIVE Urine Glucose (UA) NEGATIVE Urine Ketones NEGATIVE Urine Blood NEGATIVE Urine Nitrite NEGATIVE Ur Leukocyte Esterase NEGATIVE Urine WBC (Auto) 0 Urine RBC (Auto) 0 07/18/19 16:45 Troponin I 0.018 NT-Pro-B Natriuret Pep 8990 H Impressions: Chest/Abdomen CTA 07/18/19 17:41 IMPRESSION: There is no pulmonary embolus. There is no aortic aneurysm. There is cardiomegaly with pulmonary vascular congestion. There is no florid pulmonar y edema. There are bilateral pleural effusions. Assessment and Plan - Diagnosis (1) Acute on chronic systolic congestive heart failure, NYHA class 3 Is this a current diagnosis for this admission?: Yes (2) COPD (chronic obstructive pulmonary disease) Qualifiers: COPD type: COPD with acute exacerbation Qualified Code(s): J44.1 - Chronic obstructive pulmonary disease with (acute) exacerbation Is this a current diagnosis for this admission?: Yes (3) Coronary artery disease Qualifiers: Coronary Disease-Associated Artery/Lesion type: [place] artery Is this a current diagnosis for this admission?: Yes (4) Cellulitis of foot, right Is this a current diagnosis for this admission?: Yes (5) Alcohol dependence Qualifiers: Substance use status: uncomplicated Qualified Code(s): F10.20 - Alcohol dependence, uncomplicated Is this a current diagnosis for this admission?: Yes (6) Tobacco abuse Is this a current diagnosis for this admission?: Yes - Plan Summary Summary: Patient is admitted to [facility] on telemetry. His congestive heart failure regiment will be adjusted initially and a cardiology consultation with Dr. Sandoval will be obtained. He will receive IV Bumex for diuresis initially. He will also use morphine sulfate 2 mg IV q. one hour on an as-needed basis for acute severe dyspnea (acute pulmonary edema). His COPD will be managed with a nebulizer regiment using Xopenex, Atrovent and Pulmicort. His early cellulitis of the right foot will be treated with Levaquin administered orally. Smoking cessation is advised and counseled briefly at the bedside. A nicotine replacement patch is available for the patient's use, if desired. Patient's O2 sat will be monitored closely throughout his hospital course. Patient will also be monitored for signs or symptoms of alcohol withdrawal which will be treated immediately if they occur with Valium 10 mg IV nightly hour as needed for severe tremors/agitation/hallucinations. Daily laboratories of a CBC, metabolic profile and magnesium level will be obtained. A lipid profile and a free T3 will also be obtained x1. - Time Time Spent with patient: 25-34 minutes Smoking Cessation Education: 3 to 10 minutes Medications reviewed and adjusted accordingly: Yes Anticipated discharge: Home - Inpatient Certification Based on my medical assessment, after consideration of the patient's comorbidities, presenting symptoms, or acuity I expect that the services needed warrant INPATIENT care.: Yes I certify that my determination is in accordance with my understanding of Medicare's requirements for reasonable and necessary INPATIENT services [42 CFR 412.3e].: Yes Medical Necessity: Failure to Improve With Outpatient Therapy, Significant Comorbidiites Make Outpatient Treatment Too Risky, Need Close Monitoring Due to Risk of Patient Decompensation, Need For Continuous Telemetry Monitoring, Risk of Complication if Not Cared For in Hospital
[2019-07-19] MEDS: BUMETANIDE INJ/PF 1 MG/4 ML SDV IV SCH ×4 (01:15→17:39)
[2019-07-19] MEDS: DIAZEPAM 5 MG TABLET PO SCH ×5 (01:16→23:59)
[2019-07-19] MEDS: MORPHINE SULFATE 10 MG/ML INJ IV PRN ×3 (01:28→09:55)
[2019-07-19 05:39] LABS: ABSOLUTE BASOPHILS # (AUTO) 0.1 10^3/uL (0.0-0.2); ABSOLUTE EOSINOPHILS # (AUTO) 0.3 10^3/uL (0.0-0.6); ABSOLUTE LYMPHOCYTES (AUTO) 1.2 10^3/uL (0.5-4.7); ABSOLUTE MONOCYTES (AUTO) 0.5 10^3/uL (0.1-1.4); ABSOLUTE NEUT (AUTO) 3.7 10^3/uL (1.7-8.2); BASOPHILS % (AUTO) 1.8 % (0-2); EOSINOPHILS % (AUTO) 5.1 % (0-6); HEMOGLOBIN 10.9 g/dL (13.5-17.0); LYMPHOCYTES % (AUTO) 20.3 % (13-45); MEAN CORPUSCULAR HEMOGLOBIN 26.6 pg (27.0-33.4); MEAN CORPUSCULAR HGB CONC 32.9 g/dL (32.0-36.0); MEAN CORPUSCULAR VOLUME 81 fl (80-97); MONOCYTES % (AUTO) 8.7 % (3-13); PLATELET COUNT 176 10^3/uL (150-450); RED BLOOD COUNT 4.09 10^6/uL (4.35-5.55); RED CELL DISTRIBUTION WIDTH 19.7 % (11.5-14.0); SEGMENTED NEUTROPHILS % (AUTO) 64.1 % (42-78); TOTAL CELLS COUNTED % (AUTO) 100 %; WHITE BLOOD COUNT 5.8 10^3/uL (4.0-10.5)
[2019-07-19] MEDS: HEPARIN SOD (PORCINE) 5,000 UNIT/ML 1 ML VIAL SUBCUT SCH ×3 (05:51→21:17)
[2019-07-19 06:25] LABS: ANION GAP 9 (5-19); BLOOD UREA NITROGEN 20 mg/dL (7-20); CALCIUM 8.6 mg/dL (8.4-10.2); CARBON DIOXIDE 32 mmol/L (22-30); CHLORIDE 99 mmol/L (98-107); CHOLESTEROL 121.27 mg/dL (0-200); CREATINE KINASE 44 U/L (55-170); GLUCOSE 77 mg/dL (75-110); POTASSIUM 4.6 mmol/L (3.6-5.0); TRIGLYCERIDES 77 mg/dL (<150)
[2019-07-19 06:28] LABS: CREATINE KINASE MB 2.11 ng/mL (<4.55); TROPONIN I 0.026 ng/mL
[2019-07-19 06:37] LABS: DIRECT LDL 73 mg/dL (<100)
--- NOTE | 2019-07-19 09:40 | EKG REPORT ---
SEVERITY:- ABNORMAL ECG - SINUS TACHYCARDIA NONSPECIFIC T ABNORMALITIES, ANT-LAT LEADS VPCs : Confirmed by: Mary Man 19-Jul-2019 09:39:28
[2019-07-19] MEDS: FAMOTIDINE 20 MG TABLET PO SCH ×2 (09:44→21:16)
[2019-07-19] MEDS: FOLIC ACID 1 MG TABLET PO SCH (09:44)
[2019-07-19] MEDS: DOCUSATE SODIUM 100 MG CAPSULE PO SCH (09:44)
[2019-07-19] MEDS: DIGOXIN 0.25 MG TABLET PO SCH (09:45)
[2019-07-19] MEDS: SPIRONOLACTONE 25 MG TABLET PO SCH (09:45)
[2019-07-19] MEDS: CLOPIDOGREL BISULFATE 75 MG TABLET PO SCH (09:45)
[2019-07-19] MEDS: METOPROLOL SUCCINATE 25 MG TAB.SR.24H PO SCH (09:45)
[2019-07-19] MEDS ORDERED: LISINOPRIL 5 MG TABLET PO SCH ×2 (10:00→14:00)
[2019-07-19 12:10] LABS: TROPONIN I 0.024 ng/mL
[2019-07-19] MEDS: TRAMADOL HCL 50 MG TABLET PO PRN (14:43)
[2019-07-19] MEDS: GABAPENTIN 300 MG CAPSULE PO SCH ×2 (14:43→21:16)
[2019-07-19] MEDS: IPRATROPIUM/ALBUTEROL 0.5-2.5 MG/3 ML AMPUL NEB SCH (16:13)
--- NOTE | 2019-07-19 19:44 | PDOC PROGRESS REPORT ---
Subjective Progress Note for:: 07/19/19 Subjective:: The patient is a 69-year-old male with a past medical history of CHF (ejection fraction 25%), CA, hypertension, PVD, COPD, hypothyroidism, alcoholic cirrhosis, PTSD, chronic anemia, alcohol and tobacco dependence who was admitted 07/18/2019 for acute on chronic systolic heart failure and right foot cellulitis. Patient was seen on afternoon rounds. He was found resting in bed comfortably on room air. He was lying, supine, sleeping soundly when I entered the room but did wake after I said his name a couple of times. The patient tells me that he is feeling horrible and requests an increase in the dose and/or frequency of his pain medication. When asked to describe his pain he initially states that his foot hurts more than goes on to state that he is having "entire body aches that are the worst they have ever been." He is unable to specify further or clarify what his discomfort is today. He does tell me that he takes oxycodone 15 mg every 4 hours as a prescribed medication at home; verified with the [place] controlled substance database that the patient's most recent prescription is for tramadol 50 mg number 180/month. However, the [facility] and so [place] He denies fever, chills, chest pain, palpitations, dyspnea, cough, abdominal pain, nausea vomiting diarrhea. He has no other questions or concerns at this time. No concerns per nursing. Reason For Visit: CHF,CELLULITIS OF FOOT,RIGHT,COPD Physical Exam Vital Signs: Temp Pulse Resp BP Pulse Ox 97.8 F 75 18 113/56 L 96 07/19/19 11:21 07/19/19 16:13 07/19/19 16:13 07/19/19 11:21 07/19/19 16:13 Intake & Output 07/18/19 07/19/19 07/20/19 06:59 06:59 06:59 Intake Total 1038 Balance 1038 Weight 72.1 kg 72.1 kg General appearance: PRESENT: no acute distress, disheveled, well-developed, well-nourished Head exam: PRESENT: atraumatic, normocephalic Eye exam: PRESENT: conjunctiva pink, EOMI, PERRLA. ABSENT: scleral icterus Ear exam: PRESENT: normal external ear exam Mouth exam: PRESENT: moist, tongue midline Teeth exam: PRESENT: poor dentation Respiratory exam: PRESENT: crackles - Bibasilar, prolonged expiratory phas, symmetrical, unlabored. ABSENT: rales, rhonchi, wheezes Cardiovascular exam: PRESENT: RRR, +S1, +S2. ABSENT: diastolic murmur, rubs, systolic murmur Pulses: PRESENT: normal dorsalis pedis pul Vascular exam: PRESENT: normal capillary refill GI/Abdominal exam: PRESENT: ascites, normal bowel sounds, soft. ABSENT: distended, guarding, mass, organolmegaly, rebound, tenderness Extremities exam: PRESENT: full ROM, +2 edema - Pitting bilateral lower extremities. ABSENT: calf tenderness, clubbing, pedal edema Neurological exam: PRESENT: alert, awake, oriented to person, oriented to place, oriented to time, oriented to situation, CN II-XII grossly intact. ABSENT: motor sensory deficit Psychiatric exam: PRESENT: agitated, appropriate affect. ABSENT: homicidal ideation, suicidal ideation Skin exam: PRESENT: dry, erythema - Erythema to anterior lower leg just proximal of the ankle and dorsal aspect of left foot. No open wounds or drainage present., warm. ABSENT: cyanosis, rash Results Laboratory Results: 07/19/19 04:57 07/19/19 04:57 07/19/19 07/19/19 07/19/19 04:57 04:57 04:57 WBC 5.8 RBC 4.09 L Hgb 10.9 L Hct 33.0 L MCV 81 MCH 26.6 L MCHC 32.9 RDW 19.7 H Plt Count 176 Seg Neutrophils % 64.1 Sodium 139.7 Potassium 4.6 Chloride 99 Carbon Dioxide 32 H Anion Gap 9 BUN 20 Creatinine 1.05 Est GFR ( Amer) > 60 Glucose 77 Calcium 8.6 Magnesium 1.8 Triglycerides 77 Cholesterol 121.27 LDL Cholesterol Direct 73 VLDL Cholesterol 15.0 HDL Cholesterol 27 L Free T3 pg/mL 3.62 07/18/19 07/18/19 07/18/19 16:45 22:45 22:45 Creatine Kinase 42 L CK-MB (CK-2) 1.83 Troponin I 0.018 0.018 NT-Pro-B Natriuret Pep 8990 H 07/19/19 07/19/19 07/19/19 04:57 04:57 04:57 Creatine Kinase Cancelled 44 L CK-MB (CK-2) 2.11 Troponin I 0.026 NT-Pro-B Natriuret Pep 07/19/19 07/19/19 11:15 11:15 Creatine Kinase 37 L CK-MB (CK-2) 2.00 Troponin I 0.024 NT-Pro-B Natriuret Pep Impressions: Chest/Abdomen CTA 07/18/19 17:41 IMPRESSION: There is no pulmonary embolus. There is no aortic aneurysm. There is cardiomegaly with pulmonary vascular congestion. There is no florid p ulmonary edema. There are bilateral pleural effusions. Assessment and Plan - Diagnosis (1) Acute on chronic systolic congestive heart failure, NYHA class 3 Is this a current diagnosis for this admission?: Yes Plan: CTA chest demonstrated cardiomegaly without pericardial effusion; pulmonary vascular congestion noted. proBNP elevated 8900; actually decreased from his prior admission last week. Echocardiogram 01/06/2019 demonstrated LVEF 25%. He does have +2 pitting edema to bilateral lower extremities. Now maintaining oxygen saturations while lying supine on room air. Continue home dose metoprolol, lisinopril, digoxin, Plavix Continue to diurese with p.o. spironolactone and IV chlorpromazine and Bumex. Cardiac diet. Daily weights, strict I%O's. (2) COPD (chronic obstructive pulmonary disease) Qualifiers: COPD type: COPD with acute exacerbation Qualified Code(s): J44.1 - Chronic obstructive pulmonary disease with (acute) exacerbation Is this a current diagnosis for this admission?: Yes Plan: Stable and without exacerbation at this time. Continue home dose of Symbicort. Scheduled as needed nebulizer treatments. Supplemental oxygen as needed to maintain saturations greater than 89%. No indications for steroid or antibiotic therapy at this time. (3) Cellulitis of foot, right Is this a current diagnosis for this admission?: Yes Plan: Continue Levaquin 750 mg p.o. daily. RITU hose. Keep extremity elevated. Continue home dose gabapentin. As needed Tylenol, Motrin, and tramadol for pain. (4) Alcohol dependence Qualifiers: Substance use status: uncomplicated Qualified Code(s): F10.20 - Alcohol dependence, uncomplicated Is this a current diagnosis for this admission?: Yes Plan: Daily multivitamin, folic acid, thiamine supplementation. Schedule oral Valium. IV Valium for withdrawal symptoms/seizure activity only. Fall, aspiration, seizure precautions. Discharge planning is consulted. (5) CAD (coronary artery disease) Is this a current diagnosis for this admission?: Yes Plan: Lipid panel is acceptable Daily Plavix and antihypertensives as above. Continue monitor on telemetry. (6) Tobacco dependence Is this a current diagnosis for this admission?: Yes Plan: Smoking cessation encouraged. Nicotine replacement therapies provided. - Time Time Spent with patient: 25-34 minutes
--- NOTE | 2019-07-19 20:45 | PDOC CONSULTATION ---
Consultation-Blank Consultation: CARDIOLOGY CONSULTATION by Dr. Lorenza Sandoval on 07/19/2019. Patient seen at 7:30 AM. 60 minutes spent on this patient more than 50% of time spent in direct patient care. REASON FOR CONSULTATION: Acute on chronic systolic heart failure and acute exacerbation of COPD. CONSULT REQUESTING PHYSICIAN: Dr. Donny Canchola, [facility]. 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 He has had multiple visits to the emergency room. It is not clear if the patient is being compliant with diet or his medications are not if he is cough compliant with salt intake. In the last admission the patient was asked to follow-up with a accountant systems but he has not done so. He has a history of coronary artery disease remote history of OH and states had a cardiac catheterization but did not follow-up with any accountant systems details are not available. He denies any palpitations or syncope. He also complains of intermittent wheezing and cough which is at times productive of yellowish-green sputum. There is no fever chills or rigors. There is no lightheadedness syncope or near syncope. He is also noticed some redness of the right foot and seems to be having cellulitis of the right lower extremity. PAST MEDICAL HISTORY: Is positive for COPD. He states about 13 years ago he had a double pneumonia and had a myocardial infarction. He states he did not have a cardiac catheterization. He has not followed up for this with any accountant systems. He also has a history of alcohol intake as per the records, although the patient states that he quit smoking or drinking many years ago. He does have a history of cirrhosis of the liver. He also has a history of hypertension and hyper lipidemia. He also has a prior history of morbid obesity, for which she had gastric bypass surgery. At present the patient appears malnourished and cachectic. There is no history of TIA CVA. Patient denies any chronic kidney disease. Past SURGICAL HISTORY: Is Positive for Gastric Bypass Surgery Remotely. Cardiac catheterization. ALLERGIES: The patient is allergic to azithromycin, ketorolac, and penicillins. SOCIAL HISTORY: The patient is a smoker, and does have a history of alcohol abuse. FAMILY HISTORY: Is positive for CAD, COPD and hypertension. DISPOSITION: He is a full code, and states that his best friend Ms. Angelika Sheets is his surrogate healthcare decision maker. He also states his daughter is also has surrogate healthcare decision maker. Current Medications Generic Name Dose Route Start Last Admin Trade Name Freq PRN Reason Stop Dose Admin Acetaminophen 650 mg 07/18/19 21:12 Tylenol 325 Mg Tablet PO 08/17/19 21:11 Q4HP PRN pain or temp greater than 101F Al Hydrox/Mg Hydrox/Simethicone 30 ml 07/18/19 21:12 Maalox Plus Susp 30 Udcup PO 08/17/19 21:11 Q4HP PRN HEARTBURN Albuterol 1.25 mg 07/19/19 13:14 Ventolin 0.042% Neb 1.25 Mg/3 Ml Ampul NEB 08/18/19 13:13 RTQ4HP PRN SHORTNESS OF BREATH Albuterol/Ipratropium 3 ml 07/19/19 16:00 07/19/19 16:13 Duoneb 3 Ml Ampul NEB 08/18/19 15:59 3 ml RTQ8 RODNEY Administration Bumetanide 1 mg 07/19/19 00:00 07/19/19 17:39 Bumex Inj/Pf 1 Mg/4 Ml Sdv IV 08/18/19 00:00 1 mg Q6 RODNEY Administration Chlorpromazine HCl 25 mg 07/18/19 22:30 Thorazine Inj 25 Mg/1 Ml Ampule IV 08/17/19 21:53 Q8HP PRN Nausea/Agitation/Tremor Clopidogrel Bisulfate 75 mg 07/19/19 10:00 07/19/19 09:45 Plavix 75 Mg Tablet PO 08/18/19 09:59 75 mg DAILY RODNEY Administration Diazepam 10 mg 07/18/19 21:54 Valium Inj 10 Mg/2 Ml Disp.Syrin IV 07/25/19 21:53 Q1HP PRN WITHDRAWAL SYMPTOMS Diazepam 2.5 mg 07/19/19 00:00 07/19/19 17:39 Valium 5 Mg Tablet PO 07/26/19 00:00 2.5 mg Q6 RODNEY Administration Digoxin 0.25 mg 07/19/19 10:00 07/19/19 09:45 Lanoxin 0.25 Mg Tablet PO 08/18/19 09:59 0.25 mg DAILY [facility] Administration Docusate Sodium 100 mg 07/19/19 10:00 07/19/19 09:44 Colace 100 Mg Capsule PO 08/18/19 09:59 100 mg DAILY RODNEY Administration Famotidine 20 mg 07/18/19 22:00 07/19/19 09:44 Pepcid 20 Mg Tablet PO 08/17/19 21:59 20 mg Q12 RODNEY Administration Fluticasone/Vilanterol 1 inh 07/20/19 10:00 Breo 200-25 Mcg Ellipta 14 Dose/Dpi IH 08/19/19 09:59 DAILY [facility] Folic Acid 1 mg 07/19/19 10:00 07/19/19 09:44 Folvite 1 Mg Tablet PO 08/18/19 09:59 1 mg DAILY R[facility]NEY Administration Gabapentin 300 mg 07/19/19 14:00 07/19/19 14:43 Neurontin 300 Mg Capsule PO 08/18/19 13:59 300 mg Q8 [facility] Administration Heparin Sodium (Porcine) 5,000 unit 07/18/19 22:00 07/19/19 14:44 Heparin Inj 5,000 Units/Ml 1 Ml Vial SUBCUT 08/17/19 21:59 Not Given Q8 [facility] Ibuprofen 600 mg 07/19/19 13:22 Motrin 600 Mg Tablet PO 08/18/19 13:21 Q6HP PRN FOR PAIN Levofloxacin 750 mg 07/18/19 22:00 07/18/19 22:54 Levaquin 750 Mg Tablet PO 07/25/19 21:59 750 mg QHS [facility] Administration Lisinopril 2.5 mg 07/20/19 10:00 Prinivil 5 Mg Tablet PO 08/19/19 09:59 DAILY [facility] Magnesium Hydroxide 30 ml 07/18/19 21:12 Milk Of Magnesia 30 Ml Udcup PO 08/17/19 21:11 HSP PRN FOR CONSTIPATION Metoprolol Succinate 25 mg 07/19/19 10:00 07/19/19 09:45 Toprol Xl 25 Mg Tab.Sr PO 08/18/19 09:59 25 mg DAILY ROD[facility] Administration Multivitamins 1 tab 07/20/19 10:00 Tab-A-Freddy (Multiple Vitamin) Tablet PO 08/19/19 09:59 DAILY [facility] Nicotine 1 each 07/20/19 10:00 Nicoderm 14 Mg/24 Hr Transdermal Patch TD 08/19/19 09:59 DAILY R[facility] Promethazine HCl 12.5 mg 07/18/19 21:25 07/18/19 23:02 Phenergan Inj 25 Mg/1 Ml Vial IV 08/17/19 21:24 12.5 mg Q4HP PRN Administration UNRESOLVED NAUSEA/VOMITING Sodium Chloride 2.5 ml 07/18/19 22:00 07/19/19 15:34 Saline Flush 2.5 Ml Monoject Prefil Syrin IV 08/17/19 21:59 Not Given Q8 [facility] Spironolactone 12.5 mg 07/19/19 10:00 07/19/19 09:45 Aldactone 25 Mg Tablet PO 08/18/19 09:59 12.5 mg DAILY [facility] Administration Thiamine HCl 100 mg 07/20/19 10:00 Thiamine 100 Mg Tablet PO 08/19/19 09:59 DAILY [facility] Tramadol HCl 50 mg 07/19/19 13:21 07/19/19 14:43 Ultram 50 Mg Tablet PO 07/26/19 13:20 50 mg Q4HP PRN Administration FOR PAIN Discontinued Medications Generic Name Dose Route Start Last Admin Trade Name Freq PRN Reason Stop Dose Admin Chlorpromazine HCl 25 mg 07/18/19 21:54 Thorazine Inj 25 Mg/1 Ml Ampule IV 08/17/19 21:53 Q8 PRN Nausea/Agitation/Tremor Digoxin 0.5 mg 07/18/19 22:00 07/18/19 23:03 Lanoxin Inj 0.5 Mg/2 Ml Ampule IV 07/18/19 22:01 0.5 mg NOW ONE Administration Lisinopril 2.5 mg 07/19/19 10:00 07/19/19 09:45 Prinivil 5 Mg Tablet PO 08/18/19 09:59 2.5 mg DAILY RODNEY Administration Lisinopril 2.5 mg 07/19/19 14:00 Prinivil 5 Mg Tablet PO 08/18/19 13:59 DAILY R[facility] Morphine Sulfate 2 mg 07/18/19 21:12 07/18/19 21:16 Morphine 10 Mg/Ml Inj IV 07/18/19 21:13 2 mg NOW ONE Administration Morphine Sulfate 2 mg 07/18/19 21:56 07/19/19 09:55 Morphine 10 Mg/Ml Inj IV 07/25/19 21:55 2 mg Q1HP PRN Administration Acute Severe Dyspnea 30629 REVIEW OF SYSTEMS HEAD: Denies headache or head injury. EYES: No history of amblyopia diplopia. No history of amaurosis fugax. EARS: No history of hearing loss. No tinnitus. NOSE: No history of nosebleeds. No nasal polyps. MOUTH: No altered taste sensation, and no bleeding from the gums. THROAT: No history of odynophagia or dysphagia. No history of recurrent sore throats. SKIN: No history of psoriasis. No history of pruritus. No history of yellowish discoloration of the skin. NECK: Denies neck pain or swelling in the neck. LUNGS: Patient with acute exacerbation of COPD. Chest x-ray also shows bibasilar small pneumonias. He has no history of sleep apnea. The patient is a smoker. There is no hemoptysis. He has a productive cough with yellowish sputum. The onset was about 2 days ago, although the patient is not very helpful in defining the exact timeframe. He has no history of sleep apnea. No history of pulmonary embolism. HEART: Remote history of OH. No cardiac work- up. 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 His LV ejection fraction is severely reduced. He has symptoms of heart failure with with PND orthopnea leg edema., But no anginal symptoms. There is no syncope. His blood pressure is on the lower side due to most likely poor cardiac output. ENDOCRINE: Denies diabetes or thyroid disease. No polydipsia polyuria. No history of heat or cold intolerance. RENAL: Denies history of chronic kidney disease. No hematuria pyuria or dysuria. No symptoms a UTI. MUSCULOSKELETAL skeletal: Denies arthritis or collagen vascular disease. GI: History of cirrhosis present no history of jaundice. No history of fatty food intolerance. No history of GI bleed. No history of GERD or peptic ulcer disease. No altered bowel movements. Appetite is decreased. He does have some weight loss, although is not very helpful in telling exactly how much weight he is lost over a period of time. EDUCATION PROFESSIONAL: No history of TIA CVA. No history of headaches migraines or seizures. PSYCHIATRIC: Patient has history of alcohol and tobacco dependency. There is no history of anxiety or depression. No history of suicidal ideation. VASCULAR: No history of calf or buttock claudication.. No history of DVT HEMATOLOGICAL: No history of bleeding diathesis or clotting disorders. Metabolic: No history of gout. Prior history of morbid obesity and the patient has lost weight and appears to be cachectic and chronically ill looking at present. He has a history of hyperlipidemia, and is on Zocor at home. PHYSICAL EXAMINATION: The patient appears to be chronically ill and cachectic. At present in no acute distress. Selected Entries 07/19/19 07:29 Temperature 97.6 F Temperature Oral Source Pulse Rate 97 Respiratory 18 Rate Blood Pressure 114/71 Blood Pressure 85 Mean BP Location Left Arm BP Position Supine O2 Sat by Pulse 94 Oximetry Oxygen Delivery Room Air Method HEAD: Is atraumatic normocephalic. EYES: Pupils are equal round regular dallin ctive to light accommodation. Extraocular movements are normal. There is no conjunctival pallor. There is no scleral icterus. EARS: Tympanic membranes are intact. External auditory canals are clear. NOSE: There is no deviated nasal septum. There is no inflammation of the nasal mucous membrane. MOUTH: Mucous noted in the mouth are moist tongue is moist. There is no ulcers. There is no bleeding from the gums. THROAT: There is no redness of the oropharynx. There is no exudates. SKIN: There is no skin rashes or skin lesions. There is no particular ecchymosis. NECK: Is supple. There is JVD present carotids are equal there is no bruits. There is no lymphadenopathy. There is no goiter. There is no accessory muscle respiration use. Trachea central LUNGS: There is diminished air entry and prolonged expiration. On percussion there is hyperresonance. He has scattered rhonchi and few end expiratory wheezing. He has dry crackles in both the bases along with fine rales of CHF. HEART: S1-S2 is heard. S1 is of normal intensity. There is no S3 gallop. There is no S4 gallop. There is systolic murmur left sternal border and the apex there is no rub. ABDOMEN: Is obese. Nontender. There is no hepatosplenomegaly. Bowel sounds are well heard. There is no tender areas of masses. EXTREMITIES: Femorals are deep. Femorals are diminished. Leg pulses are diminished. There is 2 + bilateral pedal edema present. There is no DVT. There is cellulitis of his right leg. There is no calf tenderness. There is no sinus or clubbing. Capillary refill is normal. EDUCATION PROFESSIONAL: The patient is conscious awake alert oriented x3 with no focal deficits. PSYCHIATRIC: The patient judgment insight are intact, and his affect is normal. ECHOCARDIOGRAM: [Done admission of December 2018] [id number] a dilated left ventricle, with severely reduced LV ejection fraction. There is a small amount of pericardial effusion, without evidence of tamponade. There is at least moderate pulmonary hypertension. Please see report . EKG: Sinus tachycardia with one PVC. There is minor nonspecific T changes anterolateral leads. Labs- Entire Visit 07/18/19 07/18/19 07/18/19 16:45 16:45 16:45 WBC 7.5 RBC 4.08 L Hgb 10.9 L Hct 33.4 L MCV 82 MCH 26.6 L MCHC 32.6 RDW 19.5 H Plt Count 182 Lymph % (Auto) 15.4 [place] % (Auto) 10.7 Eos % (Auto) 4.0 Baso % (Auto) 1.3 Absolute Neuts (auto) 5.2 Absolute Lymphs (auto) 1.2 Absolute Monos (auto) 0.8 Absolute Eos (auto) 0.3 Absolute Basos (auto) 0.1 Seg Neutrophils % 68.6 Sodium 140.1 Potassium 4.0 Chloride 101 Carbon Dioxide 28 Anion Gap 11 BUN 20 Creatinine 0.90 Est GFR ( Amer) > 60 Est GFR (MDRD) Non-Af > 60 Glucose 82 Calcium 8.2 L Magnesium Total Bilirubin 0.5 Direct Bilirubin 0.3 Neonat Total Bilirubin Not Reportable Neonat Direct Bilirubin Not Reportable Neonat Indirect Bili Not Reportable AST 69 H ALT 36 Alkaline Phosphatase 152 H Creatine Kinase CK-MB (CK-2) Troponin I 0.018 NT-Pro-B Natriuret Pep 8990 H Total Protein 7.2 Albumin 3.4 L Triglycerides Cholesterol LDL Cholesterol Direct VLDL Cholesterol HDL Cholesterol Free T3 pg/mL Urine Color Urine Appearance Urine pH Ur Specific [place] Urine Protein Urine Glucose (UA) Urine Ketones Urine Blood Urine Nitrite Urine Bilirubin Urine Urobilinogen Ur Leukocyte Esterase Urine WBC (Auto) Urine RBC (Auto) Squamous Epi Cells Auto Urine Mucus (Auto) Urine Ascorbic Acid Digoxin 07/18/19 07/18/19 07/18/19 17:45 22:45 22:45 WBC RBC Hgb Hct MCV MCH MCHC RDW Plt Count Lymph % (Auto) [place] % (Auto) Eos % (Auto) Baso % (Auto) Absolute Neuts (auto) Absolute Lymphs (auto) Absolute Monos (auto) Absolute Eos (auto) Absolute Basos (auto) Seg Neutrophils % Sodium Potassium Chloride Carbon Dioxide Anion Gap BUN Creatinine Est GFR ( Amer) Est GFR (MDRD) Non-Af Glucose Calcium Magnesium Total Bilirubin Direct Bilirubin Neonat Total Bilirubin Neonat Direct Bilirubin Neonat Indirect Bili AST ALT Alkaline Phosphatase Creatine Kinase 42 L CK-MB (CK-2) 1.83 Troponin I 0.018 NT-Pro-B Natriuret Pep Total Protein Albumin Triglycerides Cholesterol LDL Cholesterol Direct VLDL Cholesterol HDL Cholesterol Free T3 pg/mL Urine Color STRAW Urine Appearance CLEAR Urine pH 6.0 Ur Specific [place] 1.006 Urine Protein NEGATIVE Urine Glucose (UA) NEGATIVE Urine Ketones NEGATIVE Urine Blood NEGATIVE Urine Nitrite NEGATIVE Urine Bilirubin NEGATIVE Urine Urobilinogen NEGATIVE Ur Leukocyte Esterase NEGATIVE Urine WBC (Auto) 0 Urine RBC (Auto) 0 Squamous Epi Cells Auto <1 Urine Mucus (Auto) RARE Urine Ascorbic Acid NEGATIVE Digoxin < 0.40 L 07/19/19 07/19/19 07/19/19 04:57 04:57 04:57 WBC 5.8 RBC 4.09 L Hgb 10.9 L Hct 33.0 L MCV 81 MCH 26.6 L MCHC 32.9 RDW 19.7 H Plt Count 176 Lymph % (Auto) 20.3 [place] % (Auto) 8.7 Eos % (Auto) 5.1 Baso % (Auto) 1.8 Absolute Neuts (auto) 3.7 Absolute Lymphs (auto) 1.2 Absolute Monos (auto) 0.5 Absolute Eos (auto) 0.3 Absolute Basos (auto) 0.1 Seg Neutrophils % 64.1 Sodium Potassium Chloride Carbon Dioxide Anion Gap BUN Creatinine Est GFR ( Amer) Est GFR (MDRD) Non-Af Glucose Calcium Magnesium Total Bilirubin Direct Bilirubin Neonat Total Bilirubin Neonat Direct Bilirubin Neonat Indirect Bili AST ALT Alkaline Phosphatase Creatine Kinase Cancelled CK-MB (CK-2) 2.11 Troponin I 0.026 NT-Pro-B Natriuret Pep Total Protein Albumin Triglycerides Cholesterol LDL Cholesterol Direct VLDL Cholesterol HDL Cholesterol Free T3 pg/mL Urine Color Urine Appearance Urine pH Ur Specific [place]ward Urine Protein Urine Glucose (UA) Urine Ketones Urine Blood Urine Nitrite Urine Bilirubin Urine Urobilinogen Ur Leukocyte Esterase Urine WBC (Auto) Urine RBC (Auto) Squamous Epi Cells Auto Urine Mucus (Auto) Urine Ascorbic Acid Digoxin 07/19/19 07/19/19 07/19/19 04:57 04:57 11:15 WBC RBC Hgb Hct MCV MCH MCHC RDW Plt Count Lymph % (Auto) [place] % (Auto) Eos % (Auto) Baso % (Auto) Absolute Neuts (auto) Absolute Lymphs (auto) Absolute Monos (auto) Absolute Eos (auto) Absolute Basos (auto) Seg Neutrophils % Sodium 139.7 Potassium 4.6 Chloride 99 Carbon Dioxide 32 H Anion Gap 9 BUN 20 Creatinine 1.05 Est GFR ( Amer) > 60 Est GFR (MDRD) Non-Af > 60 Glucose 77 Calcium 8.6 Magnesium 1.8 Total Bilirubin Direct Bilirubin Neonat Total Bilirubin Neonat Direct Bilirubin Neonat Indirect Bili AST ALT Alkaline Phosphatase Creatine Kinase 44 L 37 L CK-MB (CK-2) Troponin I NT-Pro-B Natriuret Pep Total Protein Albumin Triglycerides 77 Cholesterol 121.27 LDL Cholesterol Direct 73 VLDL Cholesterol 15.0 HDL Cholesterol 27 L Free T3 pg/mL 3.62 Urine Color Urine Appearance Urine pH Ur Specific [place] Urine Protein Urine Glucose (UA) Urine Ketones Urine Blood Urine Nitrite Urine Bilirubin Urine Urobilinogen Ur Leukocyte Esterase Urine WBC (Auto) Urine RBC (Auto) Squamous Epi Cells Auto Urine Mucus (Auto) Urine Ascorbic Acid Digoxin 07/19/19 11:15 WBC RBC Hgb Hct MCV MCH MCHC RDW Plt Count Lymph % (Auto) [place] % (Auto) Eos % (Auto) Baso % (Auto) Absolute Neuts (auto) Absolute Lymphs (auto) Absolute Monos (auto) Absolute Eos (auto) Absolute Basos (auto) Seg Neutrophils % Sodium Potassium Chloride Carbon Dioxide Anion Gap BUN Creatinine Est GFR ( Amer) Est GFR (MDRD) Non-Af Glucose Calcium Magnesium Total Bilirubin Direct Bilirubin Neonat Total Bilirubin Neonat Direct Bilirubin Neonat Indirect Bili AST ALT Alkaline Phosphatase Creatine Kinase CK-MB (CK-2) 2.00 Troponin I 0.024 NT-Pro-B Natriuret Pep Total Protein Albumin Triglycerides Cholesterol LDL Cholesterol Direct VLDL Cholesterol HDL Cholesterol Free T3 pg/mL Urine Color Urine Appearance Urine pH Ur Specific [place] Urine Protein Urine Glucose (UA) Urine Ketones Urine Blood Urine Nitrite Urine Bilirubin Urine Urobilinogen Ur Leukocyte Esterase Urine WBC (Auto) Urine RBC (Auto) Squamous Epi Cells Auto Urine Mucus (Auto) Urine Ascorbic Acid Digoxin Chest/Abdomen CTA 07/18/19 17:41 IMPRESSION: There is no pulmonary embolus. There is no aortic aneurysm. There is cardiomegaly with pulmonary vascular congestion. There is no florid pulmonary edema. There are bilateral pleural effusions. IMPRESSION/RECOMMENDATION: 1. Acute on chronic respiratory failure: This is a combination of acute exacerbation of COPD, pneumonia, bronchitis, and congestive heart failure. 2. Acute exacerbation of COPD.: Continue antibiotics continue respiratory treatments and oxygen. 3. Acute on chronic systolic heart failure: At present there is reasonable urine output. Would recommend to continue the patient's Toprol-XL, MILAGRO inhibitor, spironolactone. And continue IV Bumex. Note in the last admission in December, the patient required inotropic support and also needed midodrine to keep his blood pressure up. 3 times daily, and see if we can come down and wean off the pressors. Later we will start the patient on beta-sarina and MILAGRO inhibitor. 3. 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 Continue anti-cardiomyopathy treatment as per gold standard which is being done. 4.Coronary artery disease: History of myocardial infarction in the past: No evidence of anginal symptoms. No evidence of elevated troponin I at this admission. 5. Cellulitis of right lower extremity: Continue antibiotics. 6. Hypertension: At present blood pressure is acceptable. 7. Pneumonia: Bibasilar: Continue antibiotics 8. History of cirrhosis of the liver: Secondary to chronic alcohol abuse. 9. History of alcohol abuse and tobacco abuse disorder. Ill effects of alcohol and tobacco have been discussed with the patient tobacco cessation counseling was done. This took about 4 minutes. 10. Hyperlipidemia: Continue statins. Medications reviewed. Medication regimen and management plan discussed with attending provider the case. Medical decision making is of high complexity. 60 minutes spent with patient more than 50% of time spent in direct patient care. Will follow
[2019-07-19] MEDS: LEVOFLOXACIN 750 MG TABLET PO SCH (21:16)
[2019-07-20] MEDS: BUMETANIDE INJ/PF 1 MG/4 ML SDV IV SCH ×5 (00:11→17:29)
[2019-07-20] MEDS: IPRATROPIUM/ALBUTEROL 0.5-2.5 MG/3 ML AMPUL NEB SCH ×3 (00:16→16:34)
[2019-07-20 04:46] LABS: HEMATOCRIT 34.3 % (37.9-51.0); HEMOGLOBIN 11.4 g/dL (13.5-17.0); MEAN CORPUSCULAR HEMOGLOBIN 26.7 pg (27.0-33.4); MEAN CORPUSCULAR HGB CONC 33.3 g/dL (32.0-36.0); MEAN CORPUSCULAR VOLUME 80 fl (80-97); PLATELET COUNT 189 10^3/uL (150-450); RED BLOOD COUNT 4.28 10^6/uL (4.35-5.55); RED CELL DISTRIBUTION WIDTH 19.8 % (11.5-14.0)
[2019-07-20 05:08] LABS: ANION GAP 10 (5-19); BLOOD UREA NITROGEN 20 mg/dL (7-20); CALCIUM 8.5 mg/dL (8.4-10.2); CARBON DIOXIDE 35 mmol/L (22-30); CHLORIDE 91 mmol/L (98-107); GLUCOSE 111 mg/dL (75-110); POTASSIUM 4.3 mmol/L (3.6-5.0)
[2019-07-20] MEDS: ALBUTEROL SULFATE 0.042% NEB (1.25 MG/3 ML) AMPUL NEB PRN ×2 (05:15→20:33)
[2019-07-20] MEDS: GABAPENTIN 300 MG CAPSULE PO SCH ×3 (06:18→21:42)
[2019-07-20] MEDS: HEPARIN SOD (PORCINE) 5,000 UNIT/ML 1 ML VIAL SUBCUT SCH ×3 (06:18→21:42)
[2019-07-20] MEDS: DIAZEPAM 5 MG TABLET PO SCH ×3 (06:19→17:37)
[2019-07-20] MEDS: METOPROLOL SUCCINATE 25 MG TAB.SR.24H PO SCH (09:18)
[2019-07-20] MEDS: FAMOTIDINE 20 MG TABLET PO SCH ×2 (09:19→21:42)
[2019-07-20] MEDS: THIAMINE HCL 100 MG TABLET PO SCH (09:19)
[2019-07-20] MEDS: CLOPIDOGREL BISULFATE 75 MG TABLET PO SCH (09:19)
[2019-07-20] MEDS: FOLIC ACID 1 MG TABLET PO SCH (09:19)
[2019-07-20] MEDS: DIGOXIN 0.25 MG TABLET PO SCH (09:19)
[2019-07-20] MEDS: MULTIVITAMIN TABLET PO SCH (09:19)
[2019-07-20] MEDS: DOCUSATE SODIUM 100 MG CAPSULE PO SCH (09:19)
[2019-07-20] MEDS: NICOTINE 14 MG/24 HR PATCH.TD24 TD SCH (09:19)
[2019-07-20] MEDS: SPIRONOLACTONE 25 MG TABLET PO SCH (09:19)
[2019-07-20] MEDS: LISINOPRIL 5 MG TABLET PO SCH (09:22)
[2019-07-20] MEDS: FLUTICASONE/VILANTEROL 200-25 MCG/DOSE IH SCH (09:23)
[2019-07-20] MEDS: MIDODRINE HCL 5 MG TABLET PO SCH ×3 (09:30→17:37)
[2019-07-20] MEDS ORDERED: (PENDING PHARMACY ID) (Lisinopril [Zestril] 2.5 MG) PO SCH (10:00)
[2019-07-20] MEDS ORDERED: INFLUENZA QUAD (6MOS+) 2019-20 VAC 0.5 ML SYR IM ONE (13:49)
[2019-07-20] MEDS ORDERED: HALOPERIDOL LACTATE INJ 5 MG/1 ML VIAL IV PRN (19:21)
--- NOTE | 2019-07-20 19:22 | PDOC PROGRESS REPORT ---
Subjective Progress Note for:: 07/20/19 Subjective:: The patient is a 69-year-old male with a past medical history of CHF (ejection fraction 25%), [place], hypertension, PVD, COPD, hypothyroidism, alcoholic cirrhosis, PTSD, chronic anemia, alcohol and tobacco dependence who was admitted 07/18/2019 for acute on chronic systolic heart failure and right foot cellulitis. Patient was seen on afternoon rounds. He was found resting in bed comfortably on room air; he was sleeping soundly and did not wake when I said his name [place]. Per nursing, has been awake most of the day; has complained of continued pedal edema and discomfort. Otherwise, only concern has been that he is unhappy with the dietary options. He does appear to be comfortable and is not noted to be in any acute distress. No concerns per nursing. Reason For Visit: CHF,CELLULITIS OF FOOT,RIGHT,COPD Physical Exam Vital Signs: Temp Pulse Resp BP Pulse Ox 97.3 F 81 20 108/50 L 93 07/20/19 16:17 07/20/19 16:34 07/20/19 16:34 07/20/19 16:17 07/20/19 16:34 Intake & Output 07/19/19 07/20/19 07/21/19 06:59 06:59 06:59 Intake Total 2087 Balance 208 Weight 72.1 kg 66.9 kg 66.9 kg General appearance: PRESENT: no acute distress, disheveled, well-developed, well-nourished Head exam: PRESENT: atraumatic, normocephalic Eye exam: ABSENT: scleral icterus Mouth exam: PRESENT: moist, tongue midline Respiratory exam: PRESENT: clear to auscultation rossy, symmetrical, unlabored, other. ABSENT: rales, rhonchi, wheezes Cardiovascular exam: PRESENT: RRR, +S1, +S2 - Room air. ABSENT: diastolic murmur, rubs, systolic murmur Pulses: PRESENT: normal dorsalis pedis pul Vascular exam: PRESENT: normal capillary refill GI/Abdominal exam: PRESENT: distended, normal bowel sounds, soft. ABSENT: guar ding, mass, organolmegaly, rebound, tenderness Rectal exam: PRESENT: deferred Extremities exam: PRESENT: full ROM, pedal edema - +1 pedal edema bilaterally; significant improvement from yesterday. ABSENT: calf tenderness, clubbing Neurological exam: PRESENT: other - Sleeping soundly Skin exam: PRESENT: dry, erythema - Bilateral lower extremities; more significant to the left dorsum of the foot and anterior lower leg, warm. ABSENT: cyanosis, rash Results Laboratory Results: 07/20/19 04:21 07/20/19 04:21 07/20/19 07/20/19 04:21 04:21 WBC 9.0 RBC 4.28 L Hgb 11.4 L Hct 34.3 L MCV 80 MCH 26.7 L MCHC 33.3 RDW 19.8 H Plt Count 189 Sodium 136.4 L Potassium 4.3 Chloride 91 L Carbon Dioxide 35 H Anion Gap 10 BUN 20 Creatinine 1.03 Est GFR ( Amer) > 60 Glucose 111 H Calcium 8.5 07/18/19 19:13 Sputum Gram Stain - Final 07/18/19 07/18/19 07/18/19 16:45 22:45 22:45 Creatine Kinase 42 L CK-MB (CK-2) 1.83 Troponin I 0.018 0.018 NT-Pro-B Natriuret Pep 8990 H 07/19/19 07/19/19 07/19/19 04:57 04:57 04:57 Creatine Kinase Cancelled 44 L CK-MB (CK-2) 2.11 Troponin I 0.026 NT-Pro-B Natriuret Pep 07/19/19 07/19/19 11:15 11:15 Creatine Kinase 37 L CK-MB (CK-2) 2.00 Troponin I 0.024 NT-Pro-B Natriuret Pep Impressions: Chest/Abdomen CTA 07/18/19 17:41 IMPRESSION: There is no pulmonary embolus. There is no aortic aneurysm. There is cardiomegaly with pulmonary vascular congestion. There is no florid pulmonary edema. There are bilateral pleural effusions. Assessment and Plan - Diagnosis (1) Acute on chronic systolic congestive heart failure, NYHA class 3 Is this a current diagnosis for this admission?: Yes Plan: CTA chest demonstrated cardiomegaly without pericardial effusion; pulmonary vascular congestion noted. proBNP elevated 8900; actually decreased from his prior admission last week. Echocardiogram 01/06/2019 demonstrated LVEF 25%. He does have +2 pitting edema to bilateral lower extremities. Now maintaining oxygen saturations while lying supine on room air. Continue home dose metoprolol, lisinopril, digoxin, Plavix Continue to diurese with p.o. spironolactone Stop IV chlorpromazine and Bumex. Start lower dose IV furosemide. Have started Midrin for blood pressure support; per Dr. Sandoval's notes he has required this in the past. Cardiac diet. Daily weights, strict I&O's. (2) COPD (chronic obstructive pulmonary disease) Qualifiers: COPD type: COPD with acute exacerbation Qualified Code(s): J44.1 - Chronic obstructive pulmonary disease with (acute) exacerbation Is this a current diagnosis for this admission?: Yes Plan: Stable and without exacerbation at this time. Continue home dose of Symbicort. Scheduled as needed nebulizer treatments. Supplemental oxygen as needed to maintain saturations greater than 89%. No indications for steroid therapy. Currently on Levaquin p.o. for treatment of cellulitis. (3) Cellulitis of foot, right Is this a current diagnosis for this admission?: Yes Plan: Improved today; decreased edema. Continued erythema and tenderness. Continue Levaquin 750 mg p.o. daily. RITU hose. Keep extremity elevated. Continue home dose gabapentin. As needed Tylenol, Motrin, and tramadol for pain. (4) Alcohol dependence Qualifiers: Substance use status: uncomplicated Qualified Code(s): F10.20 - Alcohol dependence, uncomplicated Is this a current diagnosis for this admission?: Yes Plan: Daily multivitamin, folic acid, thiamine supplementation. Schedule oral Valium. IV Valium for withdrawal symptoms/seizure activity only. IV Haldol for acute agitation Fall, aspiration, seizure precautions. Discharge planning is consulted. (5) CAD (coronary artery disease) Is this a current diagnosis for this admission?: Yes Plan: Lipid panel is acceptable Daily Plavix and antihypertensives as above. Continue monitor on telemetry. (6) Tobacco dependence Is this a current diagnosis for this admission?: Yes Plan: Smoking cessation encouraged. Nicotine replacement therapies provided. - Time Time Spent with patient: 25-34 minutes Medications reviewed and adjusted accordingly: Yes Anticipated discharge: Home with Homehealth Within: within 48 hours
[2019-07-20] MEDS: IBUPROFEN 600 MG TABLET PO PRN (21:40)
[2019-07-20] MEDS: TRAMADOL HCL 50 MG TABLET PO PRN (21:41)
[2019-07-20] MEDS: LEVOFLOXACIN 750 MG TABLET PO SCH (21:42)
--- NOTE | 2019-07-20 22:27 | Progress Note ---
Provider Note Provider Note: CARDIOLOGY PROGRESS NOTE by Dr. Lorenza Sandoval on 07/20/2019. Subjective: The patient still complains of shortness of breath and generalized weakness. His leg edema is slightly better but patient is taking a lot of fluids orally. His right leg cellulitis is improving. There is no PND orthopnea there is no arrhythmia seen on the monitor.. There is no dizziness or syncope or near syncope history of symptoms. PHYSICAL EXAMINATION: The patient is a frail build and appears to be chronically ill. Selected Entries 07/20/19 07/20/19 07:57 08:01 Temperature 98.8 F Temperature Axillary Source Pulse Rate 102 H Respiratory 18 Rate Blood Pressure 90/46 L Blood Pressure 60 Mean BP Location Left Arm BP Position Supine O2 Sat by Pulse 97 Oximetry Oxygen Delivery Room Air Method HEAD: Is atraumatic normocephalic. EYES: Pupils are equal round regular reactive to light accommodation. Extraocular movements are normal. There is no conjunctival pallor. There is no scleral icterus. EARS: Tympanic membranes are intact. External auditory canals are clear. NOSE: There is no deviated nasal septum. There is no inflammation of the nasal mucous membrane. MOUTH: Mucous noted in the mouth are moist tongue is moist. There is no ulcers. There is no bleeding from the gums. THROAT: There is no redness of the oropharynx. There is no exudates. SKIN: There is no skin rashes or skin lesions. There is no particular ecchymosis. NECK: Is supple. There is JVD present carotids are equal there is no bruits. There is no lymphadenopathy. There is no goiter. There is no accessory muscle respiration use. Trachea central LUNGS: There is diminished air entry and prolonged expiration. On percussion there is hyperresonance. He has scattered rhonchi and few end expiratory wheezing. He has dry crackles in both the bases along with fine rales of CHF. HEART: S1-S2 is heard. S1 is of normal intensity. There is no S3 gallop. There is no S4 gallop. There is systolic murmur left sternal border and the apex there is no rub. ABDOMEN: Is obese. Nontender. There is no hepatosplenomegaly. Bowel sounds are well heard. There is no tender areas of masses. EXTREMITIES: Femorals are deep. Femorals are diminished. Leg pulses are diminished. There is 2 + bilateral pedal edema present. There is no DVT. There is cellulitis of his right leg. There is no calf tenderness. There is no sinus or clubbing. Capillary refill is normal. 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 PSYCHIATRIC: The patient judgment insight are intact, and his affect is normal. Labs- All tests 24 hr 07/20/19 07/20/19 07/20/19 04:21 04:21 21:29 WBC 9.0 RBC 4.28 L Hgb 11.4 L Hct 34.3 L MCV 80 MCH 26.7 L MCHC 33.3 RDW 19.8 H Plt Count 189 Sodium 136.4 L Potassium 4.3 Chloride 91 L Carbon Dioxide 35 H Anion Gap 10 BUN 20 Creatinine 1.03 Est GFR ( Amer) > 60 Est GFR (MDRD) Non-Af > 60 Glucose 111 H Calcium 8.5 Digoxin 0.57 L Chest/Abdomen CTA 07/18/19 17:41 IMPRESSION: There is no pulmonary embolus. There is no aortic aneurysm. There is cardiomegaly with pulmonary vascular congestion. There is no florid pulmonary edema. There are bilateral pleural effusions. IMPRESSION/RECOMMENDATION: 1. Acute on chronic respiratory failure: This is a combination of acute exacerbation of COPD, pneumonia, bronchitis, and congestive heart failure. 2. Acute exacerbation of COPD.: Continue antibiotics continue respiratory treatments and oxygen. 3. Acute on chronic systolic heart failure: At present there is reasonable urine output. Would recommend to continue the patient's Toprol-XL, MILAGRO inhibitor, spironolactone. And continue IV Bumex. Continue Midodrine. 3. 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 Continue anti-cardiomyopathy treatment as per gold standard which is being done. 4.Coronary artery disease: History of myocardial infarction in the past: No evidence of anginal symptoms. No evidence of elevated troponin I at this admission. 5. Cellulitis of right lower extremity: Continue antibiotics. 6. Hypertension: At present blood pressure is acceptable. 7. Pneumonia: Bibasilar: Continue antibiotics 8. History of cirrhosis of the liver: Secondary to chronic alcohol abuse. 9. History of alcohol abuse and tobacco abuse disorder. Ill effects of alcohol and tobacco have been discussed with the patient tobacco cessation counseling was done. This took about 4 minutes. 10. Hyperlipidemia: Continue statins. Patient reviewed medications added. Medical decision making is of high complexity. 40 minutes spent on this patient more than 50% of time spent in direct patient care. Medical management medical regimen discussed with the hospitalist attending physician. Will follow
[2019-07-21] MEDS: IPRATROPIUM/ALBUTEROL 0.5-2.5 MG/3 ML AMPUL NEB SCH ×3 (00:10→16:21)
[2019-07-21] MEDS: FUROSEMIDE INJ/PF 20 MG/2 ML SDV IV SCH ×4 (00:55→21:44)
[2019-07-21] MEDS: DIAZEPAM 5 MG TABLET PO SCH ×2 (00:56→06:12)
[2019-07-21 05:58] LABS: HEMOGLOBIN 9.4 g/dL (13.5-17.0); MEAN CORPUSCULAR HEMOGLOBIN 26.7 pg (27.0-33.4); MEAN CORPUSCULAR HGB CONC 33.4 g/dL (32.0-36.0); MEAN CORPUSCULAR VOLUME 80 fl (80-97); PLATELET COUNT 131 10^3/uL (150-450); RED CELL DISTRIBUTION WIDTH 19.6 % (11.5-14.0); WHITE BLOOD COUNT 4.2 10^3/uL (4.0-10.5)
[2019-07-21] MEDS: IBUPROFEN 600 MG TABLET PO PRN (06:10)
[2019-07-21] MEDS: GABAPENTIN 300 MG CAPSULE PO SCH ×3 (06:10→21:43)
[2019-07-21] MEDS: TRAMADOL HCL 50 MG TABLET PO PRN (06:12)
[2019-07-21] MEDS: HEPARIN SOD (PORCINE) 5,000 UNIT/ML 1 ML VIAL SUBCUT SCH ×3 (06:12→21:44)
[2019-07-21 06:13] LABS: ANION GAP 8 (5-19); BLOOD UREA NITROGEN 21 mg/dL (7-20); CALCIUM 8.1 mg/dL (8.4-10.2); CARBON DIOXIDE 30 mmol/L (22-30); CHLORIDE 99 mmol/L (98-107); GLUCOSE 85 mg/dL (75-110)
[2019-07-21] MEDS: NICOTINE 14 MG/24 HR PATCH.TD24 TD SCH (09:33)
[2019-07-21] MEDS: FLUTICASONE/VILANTEROL 200-25 MCG/DOSE IH SCH (09:33)
[2019-07-21] MEDS: LISINOPRIL 5 MG TABLET PO SCH (09:34)
[2019-07-21] MEDS: SPIRONOLACTONE 25 MG TABLET PO SCH (09:36)
[2019-07-21] MEDS: DOCUSATE SODIUM 100 MG CAPSULE PO SCH (09:36)
[2019-07-21] MEDS: DIGOXIN 0.25 MG TABLET PO SCH (09:36)
[2019-07-21] MEDS: CLOPIDOGREL BISULFATE 75 MG TABLET PO SCH (09:36)
[2019-07-21] MEDS: FOLIC ACID 1 MG TABLET PO SCH (09:36)
[2019-07-21] MEDS: METOPROLOL SUCCINATE 25 MG TAB.SR.24H PO SCH (09:37)
[2019-07-21] MEDS: MIDODRINE HCL 5 MG TABLET PO SCH ×3 (09:37→17:47)
[2019-07-21] MEDS: MULTIVITAMIN TABLET PO SCH (09:37)
[2019-07-21] MEDS: FAMOTIDINE 20 MG TABLET PO SCH ×2 (09:37→21:44)
[2019-07-21] MEDS: THIAMINE HCL 100 MG TABLET PO SCH (09:37)
[2019-07-21] MEDS ORDERED: DIAZEPAM 5 MG TABLET PO SCH (12:00)
[2019-07-21] MEDS: HYDROCODONE/ACETAMINOPHEN 5-325 MG TABLET PO PRN ×2 (15:51→21:44)
--- NOTE | 2019-07-21 16:17 | PDOC PROGRESS REPORT ---
Subjective Progress Note for:: 07/21/19 Subjective:: The patient is a 69-year-old male with a past medical history of CHF (ejection fraction 25%), [place], hypertension, PVD, COPD, hypothyroidism, alcoholic cirrhosis, PTSD, chronic anemia, alcohol and tobacco dependence who was admitted 07/18/2019 for acute on chronic systolic heart failure and right foot cellulitis. Patient was seen on afternoon rounds. He was found resting in bed comfortably on room air. His only complaint today is pain; he does tell me that his bila teral feet are more severe than his normal but is having a lot of chronic back discomfort as well. He admits that his primary care provider has weaned him off of oxycodone; previously took 15 mg every 6 hours and is now on tramadol. He does request a stronger pain medication while admitted due to his cellulitis. Otherwise, he has no questions or concerns today. He denies fever, chills, chest pain, palpitations, dyspnea, orthopnea, cough, abdominal pain, nausea vomiting or diarrhea. He reports good appetite. No concerns per nursing. Reason For Visit: CHF,CELLULITIS OF FOOT,RIGHT,COPD Physical Exam Vital Signs: Temp Pulse Resp BP Pulse Ox 97.2 F 86 16 108/59 L 94 07/21/19 08:12 07/21/19 13:53 07/21/19 08:23 07/21/19 08:12 07/21/19 08:23 Intake & Output 07/20/19 07/21/19 07/22/19 06:59 06:59 06:59 Intake Total 8 890 Balance 2087 890 Weight 66.9 kg 72.1 kg 72.1 kg General appearance: PRESENT: no acute distress, disheveled, well-developed, well-nourished Head exam: PRESENT: atraumatic, normocephalic Eye exam: PRESENT: conjunctiva pink, EOMI, PERRLA. ABSENT: scleral icterus Ear exam: PRESENT: normal external ear exam Mouth exam: PRESENT: moist, tongue midline Teeth exam: PRESENT: poor dentation Respiratory exam: PRESENT: clear to auscultation rossy, symmetrical, unlabored. ABSENT: rales, rhonchi, wheezes Cardiovascular exam: PRESENT: RRR, +S1, +S2. ABSENT: diastolic murmur, rubs, systolic murmur Vascular exam: PRESENT: normal capillary refill Extremities exam: PRESENT: full ROM, pedal edema - +1 nonpitting bilaterally. ABSENT: calf tenderness, clubbing Neurological exam: PRESENT: alert, awake, oriented to person, oriented to place, oriented to time, oriented to situation, CN II-XII grossly intact. ABSENT: motor sensory deficit Psychiatric exam: PRESENT: appropriate affect, normal mood. ABSENT: homicidal ideation, suicidal ideation Skin exam: PRESENT: dry, erythema - Bilateral lower extremities; more significant to the dorsum of the right foot. Improved from yesterday., intact, warm. ABSENT: cyanosis, rash Results Laboratory Results: 07/21/19 05:05 07/21/19 05:05 07/21/19 07/21/19 05:05 05:05 WBC 4.2 RBC 3.50 L Hgb 9.4 L Hct 28.0 L MCV 80 MCH 26.7 L MCHC 33.4 RDW 19.6 H Plt Count 131 L Sodium 136.6 L Potassium 4.0 Chloride 99 Carbon Dioxide 30 Anion Gap 8 BUN 21 H Creatinine 1.12 Est GFR ( Amer) > 60 Glucose 85 Calcium 8.1 L 07/18/19 19:13 Sputum Gram Stain - Final 07/18/19 19:13 Sputum Sputum Culture - Final Streptococcus Pneumoniae C.albicans/C.dubliniensis Normal Sharita 07/18/19 07/18/19 07/18/19 16:45 22:45 22:45 Creatine Kinase 42 L CK-MB (CK-2) 1.83 Troponin I 0.018 0.018 NT-Pro-B Natriuret Pep 8990 H 07/19/19 07/19/19 07/19/19 04:57 04:57 04:57 Creatine Kinase Cancelled 44 L CK-MB (CK-2) 2.11 Troponin I 0.026 NT-Pro-B Natriuret Pep 07/19/19 07/19/19 11:15 11:15 Creatine Kinase 37 L CK-MB (CK-2) 2.00 Troponin I 0.024 NT-Pro-B Natriuret Pep Impressions: Chest/Abdomen CTA 07/18/19 17:41 IMPRESSION: There is no pulmonary embolus. There is no aortic aneurysm. There is cardiomegaly with pulmonary vascular congestion. There is no florid pulmonary edema. There are bilateral pleural effusions. Assessment and Plan - Diagnosis (1) Acute on chronic systolic congestive heart failure, NYHA class 3 Is this a current diagnosis for this admission?: Yes Plan: CTA chest demonstrated cardiomegaly without pericardial effusion; pulmonary vascular congestion noted. proBNP elevated 8900; actually decreased from his prior admission last week. Echocardiogram 01/06/2019 demonstrated LVEF 25%. He does have +2 pitting edema to bilateral lower extremities. Now maintaining oxygen saturations while lying supine on room air. Continue home dose metoprolol, lisinopril, digoxin, Plavix Continue to diurese with p.o. spironolactone Stop IV chlorpromazine and Bumex. Continue low dose IV furosemide. Have started Midodrine for blood pressure support; per Dr. Sandoval's notes he has required this in the past. Cardiac diet. Daily weights, strict I&O's. Fluid restricted to 1200 mL's daily (2) COPD (chronic obstructive pulmonary disease) Qualifiers: COPD type: COPD with acute exacerbation Qualified Code(s): J44.1 - Chronic obstructive pulmonary disease with (acute) exacerbation Is this a current diagnosis for this admission?: Yes Plan: Stable and without exacerbation at this time. Continue home dose of Symbicort. Scheduled as needed nebulizer treatments. Supplemental oxygen as needed to maintain saturations greater than 89%. No indications for steroid therapy. Currently on Levaquin p.o. for treatment of cellulitis. (3) Cellulitis of foot, right Is this a current diagnosis for this admission?: Yes Plan: Continued improvement Continue Levaquin 750 mg p.o. daily; day #3. RITU hose. Keep extremity elevated. Continue home dose gabapentin and tramadol. Kechi 5/325 every 6 hours as needed As needed Tylenol, Motrin (4) Alcohol dependence Qualifiers: Substance use status: uncomplicated Qualified Code(s): F10.20 - Alcohol dependence, uncomplicated Is this a current diagnosis for this admission?: Yes Plan: Daily multivitamin, folic acid, thiamine supplementation. Schedule oral Valium. IV Haldol for acute agitation Fall, aspiration, seizure precautions. Discharge planning is consulted. (5) CAD (coronary artery disease) Is this a current diagnosis for this admission?: Yes Plan: Lipid panel is acceptable Daily Plavix and antihypertensives as above. Continue monitor on telemetry. (6) Tobacco dependence Is this a current diagnosis for this admission?: Yes Plan: Smoking cessation encouraged. Nicotine replacement therapies provided. - Time Time Spent with patient: 25-34 minutes Medications reviewed and adjusted accordingly: Yes Anticipated discharge: Home Within: within 24 hours
[2019-07-21] MEDS: DIAZEPAM 2 MG TABLET PO SCH (17:47)
[2019-07-21] MEDS: PROMETHAZINE HCL INJ 25 MG/1 ML VIAL IV PRN (19:31)
[2019-07-21] MEDS: LEVOFLOXACIN 750 MG TABLET PO SCH (21:43)
--- NOTE | 2019-07-21 21:43 | Progress Note ---
Provider Note Provider Note: CARDIOLOGY PROGRESS NOTE by Dr. Lorenza Sandoval on 07/21/2019 SUBJECTIVE: The patient continues to have shortness of breath which is slightly improved. He has no PND orthopnea. His leg edema is slightly improved although if the patient does not feel he that there is improved. Redness also the right lower extremity has improved. There is no TIA CVA symptoms. There is no palpitations. He is able to lie down flat in bed. PHYSICAL EXAMINATION: The patient is a frail build and appears to be chronically ill. Selected Entries 07/21/19 08:12 Temperature 97.2 F Temperature Oral Source Pulse Rate 77 Respiratory 18 Rate Blood Pressure 108/59 L Blood Pressure 75 Mean BP Location Left Arm BP Position Supine O2 Sat by Pulse 94 Oximetry Oxygen Delivery Room Air Method HEAD: Is atraumatic normocephalic. EYES: Pupils are equal round regular reactive to light accommodation. Extraocular movements are normal. There is no conjunctival pallor. There is no scleral icterus. EARS: Tympanic membranes are intact. External auditory canals are clear. NOSE: There is no deviated nasal septum. There is no inflammation of the nasal mucous membrane. MOUTH: Mucous noted in the mouth are moist tongue is moist. There is no ulcers. There is no bleeding from the gums. THROAT: There is no redness of the oropharynx. There is no exudates. SKIN: There is no skin rashes or skin lesions. There is no particular ecchymosis. NECK: Is supple. There is JVD present carotids are equal there is no bruits. There is no lymphadenopathy. There is no goiter. There is no accessory muscle respiration use. Trachea central LUNGS: There is diminished air entry and prolonged expiration. On percussion there is hyperresonance. He has scattered rhonchi and few end expiratory wheezing. He has dry crackles in both the bases along with fine rales of CHF. HEART: S1-S2 is heard. S1 is of normal intensity. There is no S3 gallop. There is no S4 gallop. There is systolic murmur left sternal border and the apex there is no rub. ABDOMEN: Is obese. Nontender. There is no hepatosplenomegaly. Bowel sounds are well heard. There is no tender areas of masses. EXTREMITIES: Femorals are deep. Femorals are diminished. Leg pulses are diminished. There is 2 + bilateral pedal edema present. There is no DVT. There is cellulitis of his right leg. There is no calf tenderness. There is no sinus or clubbing. Capillary refill is normal. 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 PSYCHIATRIC: The patient judgment insight are intact, and his affect is normal. Abnormal - 24 hr 07/20/19 07/21/19 07/21/19 21:29 05:05 05:05 RBC 3.50 L Hgb 9.4 L Hct 28.0 L MCH 26.7 L RDW 19.6 H Plt Count 131 L Sodium 136.6 L BUN 21 H Calcium 8.1 L Digoxin 0.57 L Chest/Abdomen CTA 07/18/19 17:41 IMPRESSION: There is no pulmonary embolus. There is no aortic aneurysm. There is cardiomegaly with pulmonary vascular congestion. There is no florid pulmonary edema. There are bilateral pleural effusions. IMPRESSION/RECOMMENDATION: 1. Acute on chronic respiratory failure: This is a combination of acute exacerbation of COPD, pneumonia, bronchitis, and congestive heart failure. The patient is now on a 24-hour fluid restriction. 2. Acute exacerbation of COPD.: Continue antibiotics continue respiratory treatments and oxygen. 3. Acute on chronic systolic heart failure: At present there is reasonable urine output. Would recommend to continue the patient's Toprol-XL, MILAGRO inhibitor, spironolactone. And continue IV Bumex. Continue Midodrine. 3. 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 Continue anti-cardiomyopathy treatment as per gold standard which is being done. 4.Coronary artery disease: History of myocardial infarction in the past: No evidence of anginal symptoms. No evidence of elevated troponin I at this admission. 5. Cellulitis of right lower extremity: Continue antibiotics. 6. Hypertension: At present blood pressure is acceptable. 7. Pneumonia: Bibasilar: Continue antibiotics 8. History of cirrhosis of the liver: Secondary to chronic alcohol abuse. 9. History of alcohol abuse and tobacco abuse disorder. 10. Hyperlipidemia: Continue statins. MEDICATIONS reviewed. Medication regimen and management plan discussed with the attending provider on the case. Medical decision making is of moderate complexity. 40 minutes spent on the patient with more than 50% of time spent in direct patient care.
[2019-07-22] MEDS: IPRATROPIUM/ALBUTEROL 0.5-2.5 MG/3 ML AMPUL NEB SCH ×4 (00:24→20:45)
[2019-07-22] MEDS: DIAZEPAM 2 MG TABLET PO SCH ×5 (05:47→22:19)
[2019-07-22] MEDS: GABAPENTIN 300 MG CAPSULE PO SCH ×3 (05:47→21:33)
[2019-07-22] MEDS: HEPARIN SOD (PORCINE) 5,000 UNIT/ML 1 ML VIAL SUBCUT SCH ×3 (05:48→21:33)
[2019-07-22] MEDS: HYDROCODONE/ACETAMINOPHEN 5-325 MG TABLET PO PRN (05:48)
[2019-07-22] MEDS: FUROSEMIDE INJ/PF 20 MG/2 ML SDV IV SCH ×2 (05:48→14:33)
[2019-07-22] MEDS: MIDODRINE HCL 5 MG TABLET PO SCH ×3 (09:23→17:47)
[2019-07-22] MEDS: DIGOXIN 0.25 MG TABLET PO SCH (09:23)
[2019-07-22] MEDS: FLUTICASONE/VILANTEROL 200-25 MCG/DOSE IH SCH ×2 (09:23→09:37)
[2019-07-22] MEDS: THIAMINE HCL 100 MG TABLET PO SCH (09:23)
[2019-07-22] MEDS: LISINOPRIL 5 MG TABLET PO SCH (09:24)
[2019-07-22] MEDS: CLOPIDOGREL BISULFATE 75 MG TABLET PO SCH (09:24)
[2019-07-22] MEDS: SPIRONOLACTONE 25 MG TABLET PO SCH (09:24)
[2019-07-22] MEDS: FAMOTIDINE 20 MG TABLET PO SCH ×2 (09:24→21:33)
[2019-07-22] MEDS: FOLIC ACID 1 MG TABLET PO SCH (09:24)
[2019-07-22] MEDS: MULTIVITAMIN TABLET PO SCH (09:24)
[2019-07-22] MEDS: DOCUSATE SODIUM 100 MG CAPSULE PO SCH (09:24)
[2019-07-22] MEDS: METOPROLOL SUCCINATE 25 MG TAB.SR.24H PO SCH (09:25)
[2019-07-22] MEDS: NICOTINE 14 MG/24 HR PATCH.TD24 TD SCH (09:25)
--- NOTE | 2019-07-22 18:01 | PDOC PROGRESS REPORT ---
Subjective Progress Note for:: 07/22/19 Subjective:: The patient is a 69-year-old male with a past medical history of CHF (ejection fraction 25%), [place], hypertension, PVD, COPD, hypothyroidism, alcoholic cirrhosis, PTSD, chronic anemia, alcohol and tobacco dependence who was admitted 07/18/2019 for acute on chronic systolic heart failure and right foot cellulitis. Patient was seen on morning rounds. He was found resting in bed comfortably on room air; he was sleeping but woke easily when I said his name. He has no c omplaints today; states he is feeling well, but not yet ready to go home. When asked why he would like to stay, he tells me he is supposed to have a pacemaker placed. Otherwise, he has no new questions or concerns today. He denies fever, chills, chest pain, palpitations, dyspnea, orthopnea, cough, abdominal pain, nausea vomiting or diarrhea. No concerns per nursing. Reason For Visit: CHF,CELLULITIS OF FOOT,RIGHT,COPD Physical Exam Vital Signs: Temp Pulse Resp BP Pulse Ox 97.6 F 85 16 112/54 L 92 07/22/19 11:58 07/22/19 16:21 07/22/19 16:21 07/22/19 11:58 07/22/19 16:21 Intake & Output 07/21/19 07/22/19 07/23/19 06:59 06:59 06:59 Intake Total 890 620 417 Balance 890 620 417 Weight 72.1 kg 65.4 kg General appearance: PRESENT: no acute distress, disheveled, well-developed, well-nourished Head exam: PRESENT: atraumatic, normocephalic Eye exam: PRESENT: conjunctiva pink, EOMI, PERRLA. ABSENT: scleral icterus Ear exam: PRESENT: normal external ear exam Mouth exam: PRESENT: moist, tongue midline Teeth exam: PRESENT: poor dentation Respiratory exam: PRESENT: clear to auscultation rossy, symmetrical, unlabored. ABSENT: rales, rhonchi, wheezes Cardiovascular exam: PRESENT: RRR, +S1, +S2. ABSENT: diastolic murmur, rubs, systolic murmur Pulses: PRESENT: normal dorsalis pedis pul Vascular exam: PRESENT: normal capillary refill GI/Abdominal exam: PRESENT: distended, normal bowel sounds, soft. ABSENT: guarding, mass, organolmegaly, rebound, tenderness Rectal exam: PRESENT: deferred Extremities exam: PRESENT: full ROM. ABSENT: calf tenderness, clubbing, pedal edema Musculoskeletal exam: PRESENT: ambulatory Neurological exam: PRESENT: alert, awake, oriented to person, oriented to place, oriented to time, oriented to situation, CN II-XII grossly intact. ABSENT: motor sensory deficit Psychiatric exam: PRESENT: appropriate affect, normal mood. ABSENT: homicidal ideation, suicidal ideation Skin exam: PRESENT: dry, erythema - bilateral feet; significantly improved, intact, warm. ABSENT: cyanosis, rash Results Laboratory Results: 07/21/19 05:05 07/21/19 05:05 07/18/19 07/18/19 07/18/19 16:45 22:45 22:45 Creatine Kinase 42 L CK-MB (CK-2) 1.83 Troponin I 0.018 0.018 NT-Pro-B Natriuret Pep 8990 H 07/19/19 07/19/19 07/19/19 04:57 04:57 04:57 Creatine Kinase Cancelled 44 L CK-MB (CK-2) 2.11 Troponin I 0.026 NT-Pro-B Natriuret Pep 07/19/19 07/19/19 11:15 11:15 Creatine Kinase 37 L CK-MB (CK-2) 2.00 Troponin I 0.024 NT-Pro-B Natriuret Pep Impressions: Chest/Abdomen CTA 07/18/19 17:41 IMPRESSION: There is no pulmonary embolus. There is no aortic aneurysm. There is cardiomegaly with pulmonary vascular congestion. There is no florid pulmonary edema. There are bilateral pleural effusions. Assessment and Plan - Diagnosis (1) Acute on chronic systolic congestive heart failure, NYHA class 3 Is this a current diagnosis for this admission?: Yes Plan: CTA chest demonstrated cardiomegaly without pericardial effusion; pulmonary vascular congestion noted. proBNP elevated 8900; actually decreased from his prior admission last week. Echocardiogram 01/06/2019 demonstrated LVEF 25%. Edema has resolved Now maintaining oxygen saturations while lying supine on room air. Continue home dose metoprolol, lisinopril, digoxin, Plavix Continue to diurese with p.o. spironolactone Transition to home dose furosemide today. Continue Midodrine Cardiac diet. Daily weights, strict I&O's. Fluid restricted to 1200 mL's daily Discussed with Dr. Sandoval; patient will need AICD. No plans for pacemaker/AICD placement this admission, no plans to arrange for LifeVest due to patient's poor compliance. However, not yet ready for discharge from cardiology perspective. (2) COPD (chronic obstructive pulmonary disease) Qualifiers: COPD type: COPD with acute exacerbation Qualified Code(s): J44.1 - Chronic obstructive pulmonary disease with (acute) exacerbation Is this a current diagnosis for this admission?: Yes Plan: Stable and without exacerbation at this time. Continue home dose of Symbicort. Scheduled as needed nebulizer treatments; decreased frequency Supplemental oxygen as needed to maintain saturations greater than 89%. No indications for steroid therapy. Currently on Levaquin p.o. for treatment of cellulitis. (3) Cellulitis of foot, right Is this a current diagnosis for this admission?: Yes Plan: Significant improvement; edema and tenderness have resolved. Slight erythema, greatly improved. Continue Levaquin 750 mg p.o. daily; day #4. RITU hose. Keep extremity elevated. Continue home dose gabapentin and tramadol. [place] 5/325 every 6 hours as needed As needed Tylenol, Motrin (4) Alcohol dependence Qualifiers: Substance use status: uncomplicated Qualified Code(s): F10.20 - Alcohol dependence, uncomplicated Is this a current diagnosis for this admission?: Yes Plan: Daily multivitamin, folic acid, thiamine supplementation. Schedule oral Valium. IV Haldol for acute agitation Fall, aspiration, seizure precautions. Discharge planning is consulted. (5) CAD (coronary artery disease) Is this a current diagnosis for this admission?: Yes Plan: Lipid panel is acceptable Daily Plavix and antihypertensives as above. Continue monitor on telemetry. (6) Tobacco dependence Is this a current diagnosis for this admission?: Yes Plan: Smoking cessation encouraged. Nicotine replacement therapies provided. - Time Time Spent with patient: 25-34 minutes Medications reviewed and adjusted accordingly: Yes Anticipated discharge: Home with Homehealth Within: within 24 hours - pending Cardiology's clearance
--- NOTE | 2019-07-22 19:26 | Progress Note ---
Provider Note Provider Note: CARDIOLOGY PROGRESS NOTE by Dr. Lorenza Sandoval on 07/22/2019. SUBJECTIVE: The patient states his shortness of breath is improved as also has leg edema. There is no chest pain or discomfort. There is no PND or orthopnea. There is no cough or wheezing. There is no atrial or ventricular arrhythmia seen on the monitor. There is no TIA CVA symptoms. His right leg cellulitis is much improved. PHYSICAL EXAMINATION: Patient is a frail build and appears to be chronically ill. Selected Entries 07/22/19 15:44 Temperature 97.4 F Temperature Axillary Source Pulse Rate 85 Respiratory 20 Rate Blood Pressure 117/67 Blood Pressure 83 Mean BP Location Left Arm BP Position Supine O2 Sat by Pulse 95 Oximetry Oxygen Delivery Room Air Method HEAD: Is atraumatic normocephalic. EYES: Pupils are equal round regular reactive to light accommodation. Extraocular movements are normal. There is no conjunctival pallor. There is no scleral icterus. EARS: Tympanic membranes are intact. External auditory canals are clear. NOSE: There is no deviated nasal septum. There is no inflammation of the nasal mucous membrane. MOUTH: Mucous noted in the mouth are moist tongue is moist. There is no ulcers. There is no bleeding from the gums. THROAT: There is no redness of the oropharynx. There is no exudates. SKIN: There is no skin rashes or skin lesions. There is no particular ecchymosis. NECK: Is supple. There is JVD present carotids are equal there is no bruits. There is no lymphadenopathy. There is no goiter. There is no accessory muscle respiration use. Trachea central LUNGS: There is diminished air entry and prolonged expiration. On percussion there is hyperresonance. He has scattered rhonchi and few end expiratory wheezing. He has dry crackles in both the bases along with fine rales of CHF. HEART: S1-S2 is heard. S1 is of normal intensity. There is no S3 gallop. There is no S4 gallop. There is systolic murmur left sternal border and the apex there is no rub. ABDOMEN: Is obese. Nontender. There is no hepatosplenomegaly. Bowel sounds are well heard. There is no tender areas of masses. EXTREMITIES: Femorals are deep. Femorals are diminished. Leg pulses are diminished. There is 2 + bilateral pedal edema present. There is no DVT. There is cellulitis of his right leg. There is no calf tenderness. There is no sinus or clubbing. Capillary refill is normal. BREAD DOUGH MIXER: The patient is conscious awake alert oriented x3 with no focal deficits. PSYCHIATRIC: The patient judgment insight are intact, and his affect is normal. IMPRESSION/RECOMMENDATION: 1. Acute on chronic respiratory failure: This is a combination of acute exacerbation of COPD, pneumonia, bronchitis, and congestive heart failure. The patient is now on a 24-hour fluid restriction. Also although the fluid restriction has been done there is no good record of the patient's output. 2. Acute exacerbation of COPD.: Continue antibiotics continue respiratory treatments and oxygen. 3. Acute on chronic systolic heart failure: At present there is reasonable urine output. Would recommend to continue the patient's Toprol-XL, MILAGRO inhibitor, spironolactone. And continue IV Bumex. Continue Midodrine. Later would repeat the patient's echocardiogram is stable and if EF 35% below 10 patient would be recommended to have a AICD placed. Prior to that the patient should have an IV Lexiscan Cardiolite stress test. We will arrange for these as an outpatient. 3. 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 Continue anti-cardiomyopathy treatment as per gold standard which is being done. 4.Coronary artery disease: History of myocardial infarction in the past: No evidence of anginal symptoms. No evidence of elevated troponin I at this admission. 5. Cellulitis of right lower extremity: Continue antibiotics. 6. Hypertension: At present blood pressure is acceptable. 7. History of cirrhosis of the liver: Secondary to chronic alcohol abuse. 8. History of alcohol abuse and tobacco abuse disorder. 9. Hyperlipidemia: Continue statins. MEDICATIONS reviewed. Medication regimen and management plan discussed with the attending provider on the case. Medical decision making is of moderate complexity. 40 minutes spent on the patient with more than 50% of time spent in direct patient care.
[2019-07-22] MEDS: LEVOFLOXACIN 750 MG TABLET PO SCH (21:33)
[2019-07-23] MEDS: DIAZEPAM 2 MG TABLET PO SCH ×4 (05:20→23:41)
[2019-07-23] MEDS: HEPARIN SOD (PORCINE) 5,000 UNIT/ML 1 ML VIAL SUBCUT SCH ×3 (05:20→21:31)
[2019-07-23] MEDS: GABAPENTIN 300 MG CAPSULE PO SCH ×3 (05:20→21:30)
[2019-07-23] MEDS: IPRATROPIUM/ALBUTEROL 0.5-2.5 MG/3 ML AMPUL NEB SCH ×2 (07:48→20:06)
[2019-07-23] MEDS: MIDODRINE HCL 5 MG TABLET PO SCH ×3 (11:22→17:13)
[2019-07-23] MEDS: DOCUSATE SODIUM 100 MG CAPSULE PO SCH (11:22)
[2019-07-23] MEDS: CLOPIDOGREL BISULFATE 75 MG TABLET PO SCH (11:23)
[2019-07-23] MEDS: METOPROLOL SUCCINATE 25 MG TAB.SR.24H PO SCH (11:24)
[2019-07-23] MEDS: SPIRONOLACTONE 25 MG TABLET PO SCH (11:25)
[2019-07-23] MEDS: THIAMINE HCL 100 MG TABLET PO SCH (11:26)
[2019-07-23] MEDS: FUROSEMIDE 20 MG TABLET PO SCH (11:26)
[2019-07-23] MEDS: FOLIC ACID 1 MG TABLET PO SCH (11:26)
[2019-07-23] MEDS: LISINOPRIL 5 MG TABLET PO SCH (11:26)
[2019-07-23] MEDS: MULTIVITAMIN TABLET PO SCH (11:27)
[2019-07-23] MEDS: FAMOTIDINE 20 MG TABLET PO SCH ×2 (11:27→21:30)
[2019-07-23] MEDS: NICOTINE 14 MG/24 HR PATCH.TD24 TD SCH (11:28)
[2019-07-23] MEDS: FLUTICASONE/VILANTEROL 200-25 MCG/DOSE IH SCH (11:38)
[2019-07-23] MEDS: DIGOXIN 0.25 MG TABLET PO SCH (11:51)
[2019-07-23] MEDS: HYDROCODONE/ACETAMINOPHEN 5-325 MG TABLET PO PRN (11:51)
--- NOTE | 2019-07-23 15:25 | PDOC PROGRESS REPORT ---
Subjective Progress Note for:: 07/23/19 Subjective:: The patient is a 69-year-old male with a past medical history of CHF (ejection fraction 25%), [place], hypertension, PVD, COPD, hypothyroidism, alcoholic cirrhosis, PTSD, chronic anemia, alcohol and tobacco dependence who was admitted 07/18/2019 for acute on chronic systolic heart failure and right foot cellulitis. Patient was seen on morning rounds. He was found sitting up to the edge of the bed, comfortably, on room air. He reports that he is feeling better, but does continue to have fatigue and generalized weakness. He reports that he was concerned about possibly falling while in the rest room today and would like a cane. Will provide a walker while admitted and see if PT can evaluate. Patient is adamantly against d/c to SNF but would be open to home health services. Otherwise, he has no new questions or concerns today. He denies fever, chills, chest pain, palpitations, dyspnea, orthopnea, cough, abdominal pain, nausea vomiting or diarrhea. No concerns per nursing. Reason For Visit: CHF,CELLULITIS OF FOOT,RIGHT,COPD Physical Exam Vital Signs: Temp Pulse Resp BP Pulse Ox 97.2 F 92 17 108/50 L 95 07/23/19 11:16 07/23/19 11:16 07/23/19 11:16 07/23/19 11:16 07/23/19 11:16 Intake & Output 07/22/19 07/23/19 07/24/19 06:59 06:59 06:59 Intake Total 620 1037 240 Balance 620 1037 240 Weight 65.4 kg 59.7 kg General appearance: PRESENT: no acute distress, disheveled, thin, well- developed, well-nourished Head exam: PRESENT: atraumatic, normocephalic Eye exam: PRESENT: conjunctiva pink, EOMI, PERRLA. ABSENT: scleral icterus Mouth exam: PRESENT: moist, tongue midline Teeth exam: PRESENT: poor dentation Respiratory exam: PRESENT: clear to auscultation rossy, symmetrical, unlabored. ABSENT: rales, rhonchi, wheezes Cardiovascular exam: PRESENT: RRR, +S1, +S2. ABSENT: diastolic murmur, rubs, systolic murmur Pulses: PRESENT: normal dorsalis pedis pul Vascular exam: PRESENT: normal capillary refill Extremities exam: PRESENT: full ROM. ABSENT: calf tenderness, clubbing, pedal edema Neurological exam: PRESENT: alert, awake, oriented to person, oriented to place, oriented to time, oriented to situation, CN II-XII grossly intact. ABSENT: m otor sensory deficit Psychiatric exam: PRESENT: appropriate affect, normal mood. ABSENT: homicidal ideation, suicidal ideation Skin exam: PRESENT: dry, erythema - Slight erythema to bilateral feet; improved, intact, warm. ABSENT: cyanosis, rash Results Laboratory Results: 07/21/19 05:05 07/21/19 05:05 07/18/19 07/18/19 07/18/19 16:45 22:45 22:45 Creatine Kinase 42 L CK-MB (CK-2) 1.83 Troponin I 0.018 0.018 NT-Pro-B Natriuret Pep 8990 H 07/19/19 07/19/19 07/19/19 04:57 04:57 04:57 Creatine Kinase Cancelled 44 L CK-MB (CK-2) 2.11 Troponin I 0.026 NT-Pro-B Natriuret Pep 07/19/19 07/19/19 11:15 11:15 Creatine Kinase 37 L CK-MB (CK-2) 2.00 Troponin I 0.024 NT-Pro-B Natriuret Pep Impressions: Chest/Abdomen CTA 07/18/19 17:41 IMPRESSION: There is no pulmonary embolus. There is no aortic aneurysm. There is cardiomegaly with pulmonary vascular congestion. There is no florid pulmonary edema. There are bilateral pleural effusions. Assessment and Plan - Diagnosis (1) Acute on chronic systolic congestive heart failure, NYHA class 3 Is this a current diagnosis for this admission?: Yes Plan: CTA chest demonstrated cardiomegaly without pericardial effusion; pulmonary vascular congestion noted. proBNP elevated 8900; actually decreased from his prior admission last week. Echocardiogram 01/06/2019 demonstrated LVEF 25%. Edema has resolved Now maintaining oxygen saturations while lying supine on room air. Continue home dose metoprolol, lisinopril, digoxin, Plavix, furosemide Continue p.o. spironolactone Continue Midodrine Cardiac diet. Daily weights, strict I&O's. Fluid restricted to 1200 mL's daily Discussed with Dr. Sandoval; patient will need AICD. No plans for pac emaker/AICD placement this admission, no plans to arrange for LifeVest due to patient's poor compliance. Cleared for discharge. Will obtain oxygen qualification testing and discuss with discharge planning. (2) COPD (chronic obstructive pulmonary disease) Qualifiers: COPD type: COPD with acute exacerbation Qualified Code(s): J44.1 - Chronic obstructive pulmonary disease with (acute) exacerbation Is this a current diagnosis for this admission?: Yes Plan: Stable and without exacerbation at this time. Continue home dose of Symbicort. Scheduled as needed nebulizer treatments; decreased frequency Supplemental oxygen as needed to maintain saturations greater than 89%. (3) Cellulitis of foot, right Is this a current diagnosis for this admission?: Yes Plan: Significant improvement; edema and tenderness have resolved. Slight erythema, greatly improved. Continue Levaquin 750 mg p.o. daily; day #5. RITU hose. Keep extremity elevated. Continue home dose gabapentin and tramadol. [place] 5/325 every 6 hours as needed As needed Tylenol, Motrin (4) Alcohol dependence Qualifiers: Substance use status: uncomplicated Qualified Code(s): F10.20 - Alcohol dependence, uncomplicated Is this a current diagnosis for this admission?: Yes Plan: Daily multivitamin, folic acid, thiamine supplementation. Schedule oral Valium. IV Haldol for acute agitation Fall, aspiration, seizure precautions. Discharge planning is consulted. (5) CAD (coronary artery disease) Is this a current diagnosis for this admission?: Yes Plan: Lipid panel is acceptable Daily Plavix and antihypertensives as above. Continue monitor on telemetry. (6) Tobacco dependence Is this a current diagnosis for this admission?: Yes Plan: Smoking cessation encouraged. Nicotine replacement therapies provided. - Time Time Spent with patient: 15-24 minutes Medications reviewed and adjusted accordingly: Yes Anticipated discharge: Home with Homehealth Within: within 24 hours
--- NOTE | 2019-07-23 19:59 | Progress Note ---
Provider Note Provider Note: CARDIOLOGY PROGRESS NOTE by Dr. Lorenza Sandoval on 07/23/2019. Subjective: The patient denies any chest pain or discomfort. There is no shortness of breath. There is no PND orthopnea. There is no palpitations. There is no atrial or ventricular arrhythmia seen on the monitor. His leg edema, and cellulitis of his right leg has resolved. PHYSICAL EXAMINATION: The patient is a frail build and appears to be chronically ill. Selected Entries 07/23/19 15:28 Temperature 97.7 F Temperature Axillary Source Pulse Rate 91 Respiratory 17 Rate Blood Pressure 114/62 Blood Pressure 79 Mean BP Location Left Arm BP Position Supine O2 Sat by Pulse 95 Oximetry Oxygen Delivery Room Air Method HEAD: Is atraumatic normocephalic. EYES: Pupils are equal round regular reactive to light accommodation. Extraocular movements are normal. There is no conjunctival pallor. There is no scleral icterus. EARS: Tympanic membranes are intact. External auditory canals are clear. NOSE: There is no deviated nasal septum. There is no inflammation of the nasal mucous membrane. MOUTH: Mucous noted in the mouth are moist tongue is moist. There is no ulcers. There is no bleeding from the gums. THROAT: There is no redness of the oropharynx. There is no exudates. SKIN: There is no skin rashes or skin lesions. There is no particular ecchymosis. NECK: Is supple. There is JVD present carotids are equal there is no bruits. There is no lymphadenopathy. There is no goiter. There is no accessory muscle respiration use. Trachea central LUNGS: There is diminished air entry and prolonged expiration. On percussion there is hyperresonance. He has scattered rhonchi and few end expiratory wheezing. He has dry crackles in both the bases along with fine rales of CHF. HEART: S1-S2 is heard. S1 is of normal intensity. There is no S3 gallop. There is no S4 ga llop. There is systolic murmur left sternal border and the apex there is no rub. ABDOMEN: Is obese. Nontender. There is no hepatosplenomegaly. Bowel sounds are well heard. There is no tender areas of masses. EXTREMITIES: Femorals are deep. Femorals are diminished. Leg pulses are diminished. There is no pedal edema. There is no cellulitis of the right leg. There is no DVT. There is no calf tenderness. There is no sinus or clubbing. Capillary refill is normal. MANAGER INTERNATIONAL: The patient is conscious awake alert oriented x3 with no focal deficits. PSYCHIATRIC: The patient judgment insight are intact, and his affect is normal. IMPRESSION/RECOMMENDATION: 1. Acute on chronic respiratory failure: This is a combination of acute exacerbation of COPD, pneumonia, bronchitis, and congestive heart failure. The patient is now on a 24-hour fluid restriction. Also although the fluid restriction has been done there is no good record of the patient's output. 2. Acute exacerbation of COPD.: Continue antibiotics continue respiratory treatments and oxygen. 3. Acute on chronic systolic heart failure: At present there is reasonable urine output. Would recommend to continue the patient's Toprol-XL, MILAGRO inhibitor, spironolactone. And continue IV Bumex. Continue Midodrine. Later would repeat the patient's echocardiogram is stable and if EF 35% below 10 patient would be recommended to have a AICD placed. Prior to that the patient should have an IV Lexiscan Cardiolite stress test. We will arrange for these as an outpatient. 3. 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 Continue anti-cardiomyopathy treatment as per gold standard which is being done. 4.Coronary artery disease: History of myocardial infarction in the past: No evidence of anginal symptoms. No evidence of elevated troponin I at this admission. 5. Cellulitis of right lower extremity: Continue antibiotics. 6. Hypertension: At present blood pressure is acceptable. 7. History of cirrhosis of the liver: Secondary to chronic alcohol abuse. 8. History of alcohol abuse and tobacco abuse disorder. 9. Hyperlipidemia: Continue statins. MEDICATIONS reviewed. Medication regimen and management plan discussed with the attending provider on the case. Medical decision making is of moderate complexity. 40 minutes spent on the patient with more than 50% of time spent in direct patient care. Cardiac status is stable. Hence will sign off and follow the patient is an outpatient. Patient is agreeable for this. Contact numbers given. Discussed with the hospitalist provider.
[2019-07-23] MEDS ORDERED: DIPHENHYDRAMINE HCL 25 MG CAPSULE PO ONE (20:45)
[2019-07-23] MEDS: LEVOFLOXACIN 750 MG TABLET PO SCH (21:30)
[2019-07-24] MEDS: DIAZEPAM 2 MG TABLET PO SCH (05:29)
[2019-07-24] MEDS: GABAPENTIN 300 MG CAPSULE PO SCH (05:29)
[2019-07-24] MEDS: HEPARIN SOD (PORCINE) 5,000 UNIT/ML 1 ML VIAL SUBCUT SCH (05:30)
[2019-07-24] MEDS: IPRATROPIUM/ALBUTEROL 0.5-2.5 MG/3 ML AMPUL NEB SCH (08:23)
[2019-07-24 09:15] VITALS: BP 109/60
[2019-07-24] MEDS: FOLIC ACID 1 MG TABLET PO SCH (09:42)
[2019-07-24] MEDS: METOPROLOL SUCCINATE 25 MG TAB.SR.24H PO SCH (09:42)
[2019-07-24] MEDS: CLOPIDOGREL BISULFATE 75 MG TABLET PO SCH (09:42)
[2019-07-24] MEDS: LISINOPRIL 5 MG TABLET PO SCH (09:43)
[2019-07-24] MEDS: FLUTICASONE/VILANTEROL 200-25 MCG/DOSE IH SCH (09:43)
[2019-07-24] MEDS: FAMOTIDINE 20 MG TABLET PO SCH (09:43)
[2019-07-24] MEDS: MIDODRINE HCL 5 MG TABLET PO SCH (09:43)
[2019-07-24] MEDS: SPIRONOLACTONE 25 MG TABLET PO SCH (09:44)
[2019-07-24] MEDS: FUROSEMIDE 20 MG TABLET PO SCH (09:45)
[2019-07-24] MEDS: MULTIVITAMIN TABLET PO SCH (09:45)
[2019-07-24] MEDS: DIGOXIN 0.25 MG TABLET PO SCH (09:45)
[2019-07-24] MEDS: DOCUSATE SODIUM 100 MG CAPSULE PO SCH (09:45)
[2019-07-24] MEDS: NICOTINE 14 MG/24 HR PATCH.TD24 TD SCH (09:46)
[2019-07-24] MEDS: THIAMINE HCL 100 MG TABLET PO SCH (09:46)
--- NOTE | 2019-07-24 12:26 | PDOC DISCHARGE SUMMARY ---
Impression - Admit/DC Date/PCP Admission Date/Primary Care Provider: 07/18/19 20:55 [facility] Discharge Date: 07/24/19 - Discharge Diagnosis (1) Acute on chronic systolic congestive heart failure, NYHA class 3 Is this a current diagnosis for this admission?: Yes (2) COPD (chronic obstructive pulmonary disease) Is this a current diagnosis for this admission?: Yes (3) Cellulitis of foot, right Is this a current diagnosis for this admission?: Yes (4) Alcohol dependence Is this a current diagnosis for this admission?: Yes (5) CAD (coronary artery disease) Is this a current diagnosis for this admission?: Yes (6) Tobacco dependence Is this a current diagnosis for this admission?: Yes - Additional Information Resuscitation Status: Full Code Discharge Diet: Cardiac Discharge Activity: Activity As Tolerated, Balance Activity w/Rest, Weigh Daily Referrals: GENNY ZARCO MD [ACTIVE STAFF] - [facility] - Follow up as needed ([facility] Prescriptions: Spironolactone [Aldactone 25 mg Tablet] 12.5 mg PO DAILY #30 tablet Digoxin [Lanoxin 0.25 mg Tablet] 0.25 mg PO DAILY #30 tablet Levofloxacin [Levaquin 750 mg Tablet] 750 mg PO QHS #2 tablet Nicotine [Nicoderm 14 mg/24 Hr Transdermal Patch] 1 each TD DAILY #30 patch.td24 Hydrocodone/Acetaminophen [Claremore 5-325 mg Tablet] 1 tab PO Q6HP PRN #20 tablet PRN Reason: Clopidogrel Bisulfate [Plavix 75 mg Tablet] 75 mg PO DAILY #30 tablet Lisinopril [Prinivil 5 mg Tablet] 2.5 mg PO DAILY #30 tablet Midodrine HCl [Proamatine 5 mg Tablet] 10 mg PO TID #90 tablet Multivitamin [Tab-A-Freddy (Multiple Vitamin) Tablet] 1 tab PO DAILY #90 tablet Thiamine HCl [Thiamine 100 mg Tablet] 100 mg PO DAILY #30 tablet Home Medications: Budesonide/Formoterol Fumarate [Symbicort HFA 160-4.5 mcg Inhaler 6 gm] 2 puff IH Q12 07/19/19 Folic Acid [Folvite 1 mg Tablet] 1 mg PO DAILY 07/19/19 Furosemide [Lasix 20 mg Tablet] 20 mg PO DAILY 07/19/19 Gabapentin [Neurontin 300 mg Capsule] 300 mg PO Q8 07/19/19 Ketoconazole 1 applic TOP TIDP PRN 07/19/19 Metoprolol Tartrate [Lopressor 25 mg Tablet] 12.5 mg PO Q12 07/19/19 Acetaminophen [Tylenol 325 mg Tablet] 650 mg PO Q4HP PRN tablet 07/24/19 Clopidogrel Bisulfate [Plavix 75 mg Tablet] 75 mg PO DAILY #30 tablet 07/24/19 Digoxin [Lanoxin 0.25 mg Tablet] 0.25 mg PO DAILY #30 tablet 07/24/19 Docusate Sodium [Colace 100 mg Capsule] 100 mg PO DAILY capsule 07/24/19 Hydrocodone/Acetaminophen [Claremore 5-325 mg Tablet] 1 tab PO Q6HP PRN #20 tablet 07/24/19 Levofloxacin [Levaquin 750 mg Tablet] 750 mg PO QHS #2 tablet 07/24/19 Lisinopril [Prinivil 5 mg Tablet] 2.5 mg PO DAILY #30 tablet 07/24/19 Midodrine HCl [Proamatine 5 mg Tablet] 10 mg PO TID #90 tablet 07/24/19 Multivitamin [Tab-A-Freddy (Multiple Vitamin) Tablet] 1 tab PO DAILY #90 tablet 07/24/19 Nicotine [Nicoderm 14 mg/24 Hr Transdermal Patch] 1 each TD DAILY #30 patch.td24 07/24/19 Spironolactone [Aldactone 25 mg Tablet] 12.5 mg PO DAILY #30 tablet 07/24/19 Thiamine HCl [Thiamine 100 mg Tablet] 100 mg PO DAILY #30 tablet 07/24/19 Tramadol HCl [Ultram 50 mg Tablet] 50 mg PO Q4HP PRN tablet 07/24/19 History of Present Illiness History of Present Illness: DURAN TELLES is a 69 year old male Hospital Course Hospital Course: The patient was admitted to [facility] on continuous cardiac telemetry. Cardiology was consulted; medications adjusted. The patient received metoprolol, lisinopril, and digoxin. He was initially diuresed with IV Bumex and then transitioned to appropriately dosed furosemide. He was started on spironolactone secondary to LVEF <35% amd Midodrine for blood pressure support. He was placed on a cardiac diet with fluid restriction to 1.2L daily. He had rapid improvement in his dyspnea and is now ambulatory on room air. The patient was placed on p.o. Levaquin for right foot cellulitis; he has had significant improvement with resolution of his edema and tenderness. Only sl ight bilateral erythema remains; likely chronic secondary to venous stasis. The patient's remaining chronic medical conditions remained stable. He is discharged home in stable condition with home health nursing services. He is advised to follow-up with his primary care provider within [address] Zarco next week as scheduled. He is instructed to continue cardiac diet with fluid restriction. He is advised to take his medications as prescribed. He is encouraged to return to the emergency department as needed for concerning symptoms. Physical Exam Vital Signs: Temp Pulse Resp BP Pulse Ox 97.8 F 95 18 109/60 95 07/24/19 09:11 07/24/19 09:11 07/24/19 09:11 07/24/19 09:11 07/24/19 09:11 Intake & Output 07/23/19 07/24/19 07/25/19 06:59 06:59 06:59 Intake Total 1037 1065 Balance 1037 1065 Weight 59.7 kg 60.2 kg General appearance: PRESENT: no acute distress, disheveled, thin, well- developed, well-nourished Head exam: PRESENT: atraumatic, normocephalic Eye exam: PRESENT: conjunctiva pink, EOMI, PERRLA. ABSENT: scleral icterus Ear exam: PRESENT: normal external ear exam Mouth exam: PRESENT: moist, tongue midline Teeth exam: PRESENT: poor dentation Respiratory exam: PRESENT: clear to auscultation rossy, symmetrical, unlabored, other - Ambulatory on room air. ABSENT: rales, rhonchi, wheezes Cardiovascular exam: PRESENT: RRR, +S1, +S2. ABSENT: diastolic murmur, rubs, systolic murmur Vascular exam: PRESENT: normal capillary refill Extremities exam: PRESENT: full ROM. ABSENT: calf tenderness, clubbing, pedal edema Musculoskeletal exam: PRESENT: ambulatory Neurological exam: PRESENT: alert, awake, oriented to person, oriented to place, oriented to time, oriented to situation, CN II-XII grossly intact. ABSENT: motor sensory deficit Psychiatric exam: PRESENT: appropriate affect, normal mood. ABSENT: homicidal ideation, suicidal ideation Skin exam: PRESENT: dry, erythema - Slight erythema to bilateral feet; overall improved, intact, warm. ABSENT: cyanosis, rash Results Laboratory Results: WBC 4.2 10^3/uL (4.0-10.5) 07/21/19 05:05 RBC 3.50 10^6/uL (4.35-5.55) L 07/21/19 05:05 Hgb 9.4 g/dL (13.5-17.0) L 07/21/19 05:05 Hct 28.0 % (37.9-51.0) L 07/21/19 05:05 MCV 80 fl (80-97) 07/21/19 05:05 MCH 26.7 pg (27.0-33.4) L 07/21/19 05:05 MCHC 33.4 g/dL (32.0-36.0) 07/21/19 05:05 RDW 19.6 % (11.5-14.0) H 07/21/19 05:05 Plt Count 131 10^3/uL (150-450) L 07/21/19 05:05 Lymph % (Auto) 20.3 % (13-45) 07/19/19 04:57 Lares % (Auto) 8.7 % (3-13) 07/19/19 04:57 Eos % (Auto) 5.1 % (0-6) 07/19/19 04:57 Baso % (Auto) 1.8 % (0-2) 07/19/19 04:57 Absolute Neuts (auto) 3.7 10^3/uL (1.7-8.2) 07/19/19 04:57 Absolute Lymphs (auto) 1.2 10^3/uL (0.5-4.7) 07/19/19 04:57 Absolute Monos (auto) 0.5 10^3/uL (0.1-1.4) 07/19/19 04:57 Absolute Eos (auto) 0.3 10^3/uL (0.0-0.6) 07/19/19 04:57 Absolute Basos (auto) 0.1 10^3/uL (0.0-0.2) 07/19/19 04:57 Seg Neutrophils % 64.1 % (42-78) 07/19/19 04:57 Sodium 136.6 mmol/L (137-145) L 07/21/19 05:05 Potassium 4.0 mmol/L (3.6-5.0) 07/21/19 05:05 Chloride 99 mmol/L (98-107) 07/21/19 05:05 Carbon Dioxide 30 mmol/L (22-30) 07/21/19 05:05 Anion Gap 8 (5-19) 07/21/19 05:05 BUN 21 mg/dL (7-20) H 07/21/19 05:05 Creatinine 1.12 mg/dL (0.52-1.25) 07/21/19 05:05 Est GFR ( Amer) > 60 (>60) 07/21/19 05:05 Est GFR (MDRD) Non-Af > 60 (>60) 07/21/19 05:05 Glucose 85 mg/dL (75-110) 07/21/19 05:05 Calcium 8.1 mg/dL (8.4-10.2) L 07/21/19 05:05 Magnesium 1.8 mg/dL (1.6-2.3) 07/19/19 04:57 Total Bilirubin 0.5 mg/dL (0.2-1.3) 07/18/19 16:45 Direct Bilirubin 0.3 mg/dL (0.0-0.4) 07/18/19 16:45 Neonat Total Bilirubin Not Reportable 07/18/19 16:45 Neonat Direct Bilirubin Not Reportable 07/18/19 16:45 Neonat Indirect Bili Not Reportable 07/18/19 16:45 AST 69 U/L (17-59) H 07/18/19 16:45 ALT 36 U/L (<50) 07/18/19 16:45 Alkaline Phosphatase 152 U/L (38-126) H 07/18/19 16:45 Creatine Kinase 37 U/L (55-170) L 07/19/19 11:15 CK-MB (CK-2) 2.00 ng/mL (<4.55) 07/19/19 11:15 Troponin I 0.024 ng/mL 07/19/19 11:15 NT-Pro-B Natriuret Pep 8990 pg/mL (<125) H 07/18/19 16:45 Total Protein 7.2 g/dL (6.3-8.2) 07/18/19 16:45 Albumin 3.4 g/dL (3.5-5.0) L 07/18/19 16:45 Triglycerides 77 mg/dL (<150) 07/19/19 04:57 Cholesterol 121.27 mg/dL (0-200) 07/19/19 04:57 LDL Cholesterol Direct 73 mg/dL (<100) 07/19/19 04:57 VLDL Cholesterol 15.0 mg/dL (10-31) 07/19/19 04:57 HDL Cholesterol 27 mg/dL (>40) L 07/19/19 04:57 Free T3 pg/mL 3.62 pg/mL (2.77-5.27) 07/19/19 04:57 Urine Color STRAW 07/18/19 17:45 Urine Appearance CLEAR 07/18/19 17:45 Urine pH 6.0 (5.0-9.0) 07/18/19 17:45 Ur Specific Rodman 1.006 07/18/19 17:45 Urine Protein NEGATIVE mg/dL (NEGATIVE) 07/18/19 17:45 Urine Glucose (UA) NEGATIVE mg/dL (NEGATIVE) 07/18/19 17:45 Urine Ketones NEGATIVE mg/dL (NEGATIVE) 07/18/19 17:45 Urine Blood NEGATIVE (NEGATIVE) 07/18/19 17:45 Urine Nitrite NEGATIVE (NEGATIVE) 07/18/19 17:45 Urine Bilirubin NEGATIVE (NEGATIVE) 07/18/19 17:45 Urine Urobilinogen NEGATIVE mg/dL (<2.0) 07/18/19 17:45 Ur Leukocyte Esterase NEGATIVE (NEGATIVE) 07/18/19 17:45 Urine WBC (Auto) 0 /HPF 07/18/19 17:45 Urine RBC (Auto) 0 /HPF 07/18/19 17:45 Squamous Epi Cells Auto <1 /HPF 07/18/19 17:45 Urine Mucus (Auto) RARE /LPF 07/18/19 17:45 Urine Ascorbic Acid NEGATIVE (NEGATIVE) 07/18/19 17:45 Digoxin 0.57 ng/mL (0.8-2.0) L 07/20/19 21:29 07/18/19 07/18/19 07/19/19 16:45 22:45 04:57 CK-MB (CK-2) 1.83 2.11 Troponin I 0.018 0.018 0.026 NT-Pro-B Natriuret Pep 8990 H 07/19/19 11:15 CK-MB (CK-2) 2.00 Troponin I 0.024 NT-Pro-B Natriuret Pep Impressions: Chest/Abdomen CTA 07/18/19 17:41 IMPRESSION: There is no pulmonary embolus. There is no aortic aneurysm. There is cardiomegaly with pulmonary vascular congestion. There is no florid pulmonary edema. There are bilateral pleural effusions. Plan Plan of Treatment: The patient is discharged home with home health nursing services. He is advised to follow-up with his primary care provider within [address] Zarco next week. He is instructed to take his medications as prescribed. He is educated on a low-sodium, fluid restricted diet. He is encouraged to return to the emergency department as needed for concerning symptoms. Time Spent: Greater than 30 Minutes Stroke Is this a Stroke Patient?: No Acute Heart Failure - Is this a Heart Failure Patient?: Yes Documentation of LVEF assessment?: Yes LVEF < 40%?: Yes-if yes answer questions a through e a) Discharged on ACEI?: Yes b) Discharges on ARB?: No-document contraindications - On lisinopril c) Discharged on ARNI?: No-Document Contraindications Reason(s) not discharged on ARNI: Other - Medications per cardiology d) Discharged on evidence-based Beta sarina(carvedilol, sustained release metoprolol succinate, or bisoprolol)?: Yes e) For LVEF <35%, discharged on Aldosterone antagonist?: Yes 3. Anticoagulant therapy for permanect/persistent/paraoxysmal Afib or Aflutter: N/A
== END 2019-07-24 10:41 | disposition home health service (06) | DRG 292 ==
LOC: ER 15:36 → EH 20:55 → 3W 07-19 00:19
PROVIDERS: ADMIT Emergency Medicine; ATTEND Emergency Medicine
DX: I11.0 Hypertensive heart disease with heart failure (principal); L03.115 Cellulitis of right lower limb; J44.1 Chronic obstructive pulmonary disease with (acute) exacerbation; I50.23 Acute on chronic systolic (congestive) heart failure; I25.2 Old myocardial infarction; I73.9 Peripheral vascular disease, unspecified; E03.9 Hypothyroidism, unspecified; D64.9 Anemia, unspecified; E78.5 Hyperlipidemia, unspecified; K70.30 Alcoholic cirrhosis of liver without ascites; F43.10 Post-traumatic stress disorder, unspecified; F10.20 Alcohol dependence, uncomplicated; I87.8 Other specified disorders of veins; Z90.49 Acquired absence of other specified parts of digestive tract; Z98.84 Bariatric surgery status; F17.200 Nicotine dependence, unspecified, uncomplicated; Z82.49 Family history of ischemic heart disease and other diseases of the circulatory system; Z88.1 Allergy status to other antibiotic agents; Z88.0 Allergy status to penicillin; Z79.899 Other long term (current) drug therapy; Z79.51 Long term (current) use of inhaled steroids
CPT/HCPCS: 36415; 71275; 80048; 80053; 80061; 80162; 81001; 82550; 82553; 83735; 83880; 84481; 84484; 85025; 85027; 87070; 87077; 87186; 87205; 93005; 93010; 94640; 94660; 99285; J1160; J1630; J1644; J1940; J2270; J2550; J3490; J7620

== ENCOUNTER 2019-10-15 09:13 | Inpatient (IN) | payer OTHER, MEDICARE ==
--- NOTE | 2019-10-15 09:37 | ER Document Report ---
ED Medical Screen (RME) - General Chief Complaint: Breathing Difficulty Stated Complaint: DIFFICULTY BREATHING Time Seen by Provider: 10/15/19 09:31 Primary Care Provider: PETERSON,KELLIE [Primary Care Provider] - Follow up as needed TRAVEL OUTSIDE OF THE [place] IN LAST 30 DAYS: No - HPI Notes: 10/15/19 09:36 69-year-old male to the emergency department with complaints of shortness of breath that have been getting worse for the past 3 days. He states that he has been coughing quite a bit. Denies any fevers. Has a history of COPD and CHF. He states his legs have been getting more swollen. He takes Lasix. He states he gave himself a breathing treatment this morning and then called medics. They gave him a breathing treatment and Solu-Medrol. He continues to feel short of breath. I performed a brief medical screening exam on the patient determined that he will need further evaluation and management by main side provider. I have placed initial orders to help expedite his care. - Related Data Allergies/Adverse Reactions: vancomycin Allergy (Unknown, Verified 05/28/19 05:34) azithromycin Allergy (Verified 05/28/19 05:34) Penicillins Allergy (Verified 05/28/19 05:34) ketorolac [From Toradol] Adverse Reaction (Verified 07/19/19 13:40) Nausea Past Medical History - Past Medical History Cardiac Medical History: Reports: Hx Congestive Heart Failure - Chronic systolic congestive heart failure with ejection fraction of 25%, Hx Heart Attack, Hx Hypertension, Hx Peripheral Vascular Disease - Chronic venous stasis Denies: Hx Atrial Fibrillation, Hx Coronary Artery Disease, Hx DVT, Hx Hypercholesterolemia, Hx Pulmonary Embolism Pulmonary Medical History: Reports: Hx Asthma, Hx Bronchitis, Hx COPD, Hx Pneumonia, Hx Respiratory Failure Neurological Medical History: Denies: Hx Seizures Endocrine Medical History: Reports: Hx Hypothyroidism - Recently diagnosed. Denies: Hx Diabetes Mellitus Type 1, Hx Diabetes Mellitus Type 2, Hx Hyperthyroidism Renal/ Medical History: Denies: Hx Peritoneal Dialysis GI Medical History: Reports: Hx Cirrhosis - Alcoholic cirrhosis, Hx Hiatal Hernia. Denies: Hx Hepatitis Musculoskeltal Medical History: Denies Hx Arthritis, Denies Hx Gout Skin Medical History: Denies Hx Eczema, Denies Hx Psoriasis Psychiatric Medical History: Reports: Hx Post Traumatic Stress Disorder Denies: Hx Depression Infectious Medical History: Denies: Hx Hepatitis Past Surgical History: Reports: Hx Abdominal Surgery, Hx Cholecystectomy, Hx Gastric Bypass Surgery - Patient claims surgical procedure done, no evidence noted on x-rays or CT's, Hx Orthopedic Surgery - Left knee surgery, left wrist surgery, Other - Gallbladder - Immunizations Immunizations up to date: Yes Hx Diphtheria, Pertussis, Tetanus Vaccination: Yes Doctor's Discharge - Discharge Referrals: [facility] [[facility] - Follow up as needed
--- NOTE | 2019-10-15 09:59 | RADIOLOGY REPORT (SQ) ---
EXAM DESCRIPTION: CHEST SINGLE VIEW COMPLETED DATE/TIME: 10/15/2019 9:50 am REASON FOR STUDY: SOB COMPARISON: 07/14/2019 EXAM PARAMETERS: NUMBER OF VIEWS: One view. TECHNIQUE: Single frontal radiographic view of the chest acquired. RADIATION DOSE: NA LIMITATIONS: None. FINDINGS: LUNGS AND PLEURA: Left basilar opacity and possible left effusion. No pneumothorax. MEDIASTINUM AND HILAR STRUCTURES: No masses. Contour normal. HEART AND VASCULAR STRUCTURES: Cardiac enlargement. Vascular congestion. BONES: No acute findings. HARDWARE: None in the chest. OTHER: No other significant finding. IMPRESSION: Cardiac enlargement with vascular congestion. Left basilar opacity and possible left effusion. TECHNICAL DOCUMENTATION: JOB ID: [id number] [employer]- All Rights Reserved Reading location - IP/workstation name: [email or web address]
[2019-10-15 10:56] LABS: ABSOLUTE BASOPHILS # (AUTO) 0.1 10^3/uL (0.0-0.2); ABSOLUTE EOSINOPHILS # (AUTO) 0.3 10^3/uL (0.0-0.6); ABSOLUTE LYMPHOCYTES (AUTO) 1.1 10^3/uL (0.5-4.7); ABSOLUTE MONOCYTES (AUTO) 0.6 10^3/uL (0.1-1.4); ABSOLUTE NEUT (AUTO) 4.7 10^3/uL (1.7-8.2); EOSINOPHILS % (AUTO) 4.3 % (0-6); HEMATOCRIT 30.6 % (37.9-51.0); LYMPHOCYTES % (AUTO) 16.6 % (13-45); MEAN CORPUSCULAR HGB CONC 32.6 g/dL (32.0-36.0); MEAN CORPUSCULAR VOLUME 83 fl (80-97); MONOCYTES % (AUTO) 8.7 % (3-13); PLATELET COUNT 262 10^3/uL (150-450); RED BLOOD COUNT 3.71 10^6/uL (4.35-5.55); SEGMENTED NEUTROPHILS % (AUTO) 69.4 % (42-78); TOTAL CELLS COUNTED % (AUTO) 100 %; WHITE BLOOD COUNT 6.7 10^3/uL (4.0-10.5)
[2019-10-15] MEDS ORDERED: ACETAMINOPHEN 325 MG TABLET PO ONE (13:00)
[2019-10-15 13:01] LABS: ALBUMIN 2.9 g/dL (3.5-5.0); ALKALINE PHOSPHATASE 161 U/L (38-126); ANION GAP 7 (5-19); ASPARTATE AMINO TRANSFERASE 58 U/L (17-59); BILIRUBIN,TOTAL 0.3 mg/dL (0.2-1.3); BLOOD UREA NITROGEN 24 mg/dL (7-20); CALCIUM 7.4 mg/dL (8.4-10.2); CARBON DIOXIDE 22 mmol/L (22-30); CHLORIDE 109 mmol/L (98-107); GLUCOSE 99 mg/dL (75-110); TOTAL PROTEIN 6.3 g/dL (6.3-8.2)
[2019-10-15 13:12] LABS: TROPONIN I 0.024 ng/mL
[2019-10-15] MEDS ORDERED: FUROSEMIDE INJ/PF 40 MG/4 ML SDV IV ONE (13:20)
[2019-10-15] MEDS ORDERED: METOLAZONE 5 MG TABLET PO ONE (14:27)
[2019-10-15] MEDS ORDERED: FUROSEMIDE INJ/PF 20 MG/2 ML SDV IV ONE (14:29)
[2019-10-15] MEDS ORDERED: FUROSEMIDE INJ/PF 20 MG/2 ML SDV ONE ×2 (15:28→17:29)
--- NOTE | 2019-10-15 16:29 | ER Document Report ---
Entered by SIRIA CLAYTON SCRIBE 10/15/19 1316 Acting as scribe for:ALE ELIZONDO MD ED General - General Chief Complaint: Shortness Of Breath Stated Complaint: DIFFICULTY BREATHING Time Seen by Provider: 10/15/19 09:31 Primary Care Provider: PETERSON,KELLIE [Primary Care Provider] - Follow up as needed Information source: Patient Notes: This 69 year old male patient presents to the emergency department today with complaints of shortness of breath for the past x3 days. Patient states he has a cough, pain under his left ribs, and a scratchy throat . Patient has abdominal swelling and a history of congestive heart failure. Patient states he took Lasix this morning but this did not help reduce swelling in his abdomen or lower extremities. TRAVEL OUTSIDE OF THE [place] IN LAST 30 DAYS: No - Related Data Allergies/Adverse Reactions: vancomycin Allergy (Unknown, Verified 05/28/19 05:34) azithromycin Allergy (Verified 05/28/19 05:34) Penicillins Allergy (Verified 05/28/19 05:34) ketorolac [From Toradol] Adverse Reaction (Verified 07/19/19 13:40) Nausea Home Medications: TRAMADOL, GABAPENTIN, LASIX, LOSARTAN, METOPROLOL, FOLIC ACID, AND SYMBICORT Past Medical History - General Information source: Patient - Social History Smoking Status: Current Every Day Smoker Cigarette use (# per day): Yes Frequency of alcohol use: None Drug Abuse: None Family History: CAD, COPD, Hypertension Patient has suicidal ideation: No Patient has homicidal ideation: No - Past Medical History Cardiac Medical History: Reports: Hx Congestive Heart Failure - Chronic systolic congestive heart failure with ejection fraction of 25%, Hx Heart Attack, Hx Hypertension, Hx Peripheral Vascular Disease - Chronic venous stasis Pulmonary Medical History: Reports: Hx Asthma, Hx Bronchitis, Hx COPD, Hx Pneumonia, Hx Respiratory Failure Endocrine Medical History: Reports: Hx Hypothyroidism - Recently diagnosed GI Medical History: Reports: Hx Cirrhosis - Alcoholic cirrhosis, Hx Hiatal Hernia Psychiatric Medical History: Reports: Hx Post Traumatic Stress Disorder Past Surgical History: Reports: Hx Abdominal Surgery, Hx Cholecystectomy, Hx Gastric Bypass Surgery - Patient claims surgical procedure done, no evidence noted on x-rays or CT's, Hx Orthopedic Surgery - Left knee surgery, left wrist surgery, Other - Gallbladder - Immunizations Immunizations up to date: Yes Hx Diphtheria, Pertussis, Tetanus Vaccination: Yes Hx Pneumococcal Vaccination: 09/14/16 Review of Systems - Review of Systems Constitutional: No symptoms reported EENT: See HPI, Throat swelling Cardiovascular: See HPI Respiratory: See HPI, Cough Gastrointestinal: See HPI, Other - Swelling in abdomen. Genitourinary: No symptoms reported Male Genitourinary: No symptoms reported Musculoskeletal: No symptoms reported Skin: No symptoms reported Hematologic/Lymphatic: No symptoms reported Neurological/Psychological: No symptoms reported -: Yes All other systems reviewed and negative Physical Exam - Vital signs Vitals: Resp Pulse Ox 13 100 10/15/19 09:29 10/15/19 09:29 - General General appearance: Appears well, Alert - HEENT Head: Normocephalic, Atraumatic Eyes: Normal Pupils: PERRL - Respiratory Breath sounds: Other - Fluid in lungs. - Cardiovascular Rhythm: Regular Heart sounds: Normal auscultation Murmur: No - Abdominal Inspection: Other - Surgical scars. Distension: Fluid wave, Other - Fluid in abdomen. - Extremities General upper extremity: Normal inspection. No: Edema General lower extremity: Edema - 3+ edema billateraly - Neurological Neuro grossly intact: Yes Cognition: Normal Orientation: AAOx4 Speech: Normal Sensory: Normal - Psychological Associated symptoms: Normal affect, Normal mood - Skin Skin Temperature: Warm Skin Moisture: Dry Skin Color: Normal Course - Vital Signs Vital signs: Temp Pulse Resp BP Pulse Ox 23 H 122/84 100 10/15/19 15:00 10/15/19 14:01 10/15/19 14:01 - Laboratory Result Diagrams: 10/15/19 10:20 10/15/19 12:32 Laboratory results interpreted by me: 10/15/19 10/15/19 10/15/19 10:20 12:32 12:32 RBC 3.71 L Hgb 10.0 L Hct 30.6 L RDW 17.0 H Chloride 109 H BUN 24 H Calcium 7.4 L Alkaline Phosphatase 161 H NT-Pro-B Natriuret Pep 7760 H Albumin 2.9 L Critical Care Note - Critical Care Note Total time excluding time spent on procedures (mins): 40 Discharge - Discharge Clinical Impression: Congestive heart failure, COPD with exacerbation, Ascites, Peripheral edema, Shortness of breath Disposition: ADMITTED INPATIENT Admitting Provider: Deborah (Hospitalist) Unit Admitted: Telemetry Referrals: [facility] [[facility]] - Follow up as needed I personally performed the services described in the documentation, reviewed and edited the documentation which was dictated to the scribe in my presence, and it accurately records my words and actions.
[2019-10-15] MEDS ORDERED: ACETAMINOPHEN 325 MG TABLET PO PRN (16:30)
[2019-10-15] MEDS ORDERED: IPRATROPIUM/ALBUTEROL 0.5-2.5 MG/3 ML AMPUL NEB PRN (16:31)
[2019-10-15] MEDS ORDERED: HYDRALAZINE HCL INJ/PF 20 MG/1 ML SDV IV PRN (16:37)
--- NOTE | 2019-10-15 16:48 | PDOC H&P ---
History of Present Illness Admission Date/PCP: [facility] Patient complains of: SOB History of Present Illness: DURAN TELLES is a 69 year old male with a past medical history of CHF (ejection fraction 25%), [place], hypertension, PVD, COPD, hypothyroidism, alcoholic cirrhosis, PTSD, chronic anemia, alcohol and tobacco dependence who presented with increasing shortness of breath. Patient reports that in the past 3 weeks, he has been having dysuria and urinary urgency. He says in the past few days he has not made out a lot of urine. He reports that the past 3 to 5 days, he has worsening and progressive bipedal edema and increasing shortness of breath and orthopnea. He also reports his abdominal distention has progressively worsened. He denies productive cough. Denies fever or chills. Denies chest pain. He says he has been compliant with his Lasix at home. He says he drinks water at home but is not particularly sticking to a certain fluid restriction. In the ER, he was noted to have significant bipedal edema and abdominal distention. Chest x-ray shows pulmonary congestion. He was given IV Lasix and put out 700 cc of urine in the [place]. He says he has gotten some relief from the IV Lasix. Past Medical History Cardiac Medical History: Reports: Congestive Heart Failure - Chronic systolic congestive heart failure with ejection fraction of 25%, Myocardial Infarction, Hypertension, Peripheral Vascular Disease - Chronic venous stasis Denies: Atrial Fibrillation, Coronary Artery Disease, DVT, Hyperlipidema, Pulmonary Embolism Pulmonary Medical History: Reports: Asthma, Bronchitis, Chronic Obstructive Pulmonary Disease (COPD), Pneumonia, Respiratory Failure Neurological Medical History: Denies: Seizures Endocrine Medical History: Reports: Hypothyroidism Denies: Diabetes Mellitus Type 1, Diabetes Mellitus Type 2, Hyperthyroidism GI Medical History: Reports: Cirrhosis - Alcoholic cirrhosis, Hiatal Hernia Denies: Hepatitis Musculoskeltal Medical History: Denies: Arthritis, Gout Skin Medical History: Denies: Eczema, Psoriasis Psychiatric Medical History: Reports: Post Traumatic Stress Disorder Denies: Depression Hematology: Reports: Anemia - Chronic Denies: Bleeding Tendencies Past Surgical History Past Surgical History: Reports: Cholecystectomy, Gastric Bypass Surgery - Patient claims surgical procedure done, no evidence noted on x-rays or CT's, Orthopedic Surgery - Left knee surgery, left wrist surgery, Other - Gallbladder Social History Smoking Status: Current Every Day Smoker Frequency of Alcohol Use: Heavy Hx Recreational Drug Use: No Drugs: None Hx Prescription Drug Abuse: No Family History Family History: CAD, COPD, Hypertension Parental Family History Reviewed: Yes - No premature CAD Children Family History Reviewed: No Sibling(s) Family History Reviewed.: No Medication/Allergy Home Medications: Albuterol Sulfate [Proair HFA Inhalation Aerosol 8.5 gm MDI] 2 puff IH ASDIR PRN 10/16/19 Budesonide/Formoterol Fumarate [Symbicort HFA 160-4.5 mcg Inhaler 6 gm] 2 puff IH BID 10/16/19 Folic Acid [Folvite 1 mg Tablet] 1 mg PO DAILY 10/16/19 Furosemide [Lasix 20 mg Tablet] 20 mg PO DAILY 10/16/19 Gabapentin [Neurontin 300 mg Capsule] 1,200 mg PO Q8 10/16/19 Ketoconazole 1 applic TOP TIDP PRN 10/16/19 Losartan Potassium [Cozaar 50 mg Tablet] 50 mg PO DAILY 10/16/19 Metoprolol Tartrate [Lopressor 25 mg Tablet] 12.5 mg PO Q12 10/16/19 Tramadol HCl [Ultram 50 mg Tablet] 100 mg PO Q8HP PRN 10/16/19 Allergies/Adverse Reactions: vancomycin Allergy (Unknown, Verified 05/28/19 05:34) azithromycin Allergy (Verified 05/28/19 05:34) Penicillins Allergy (Verified 05/28/19 05:34) ketorolac [From Toradol] Adverse Reaction (Verified 07/19/19 13:40) Nausea Review of Systems All systems: reviewed and no additional remarkable complaints except as stated - As mentioned in HPI Physical Exam Vital Signs: Temp Pulse Resp BP Pulse Ox 23 H 122/84 100 10/15/19 15:00 10/15/19 14:01 10/15/19 14:01 Intake & Output 10/14/19 10/15/19 10/16/19 06:59 06:59 06:59 Intake Total 500 Output Total 800 Balance -300 Weight 324 lb 1.272 oz General appearance: PRESENT: no acute distress, well-developed, well-nourished Head exam: PRESENT: atraumatic, normocephalic Eye exam: PRESENT: conjunctiva pink, EOMI, PERRLA. ABSENT: scleral icterus Ear exam: PRESENT: normal external ear exam Mouth exam: PRESENT: moist, tongue midline Neck exam: ABSENT: carotid bruit, JVD, lymphadenopathy, thyromegaly Respiratory exam: PRESENT: rales, rhonchi. ABSENT: wheezes Cardiovascular exam: PRESENT: RRR. ABSENT: diastolic murmur, rubs Pulses: PRESENT: normal dorsalis pedis pul Vascular exam: PRESENT: normal capillary refill GI/Abdominal exam: PRESENT: ascites, distended, normal bowel sounds, soft. ABSENT: guarding, mass, organolmegaly, rebound Rectal exam: PRESENT: deferred Extremities exam: PRESENT: +2 edema Neurological exam: PRESENT: alert, awake, oriented to person, oriented to place, oriented to time, oriented to situation, CN II-XII grossly intact. ABSENT: motor sensory deficit Results Laboratory Results: 10/15/19 10:20 10/15/19 12:32 10/15/19 10/15/19 10/15/19 10:20 10:20 12:32 WBC 6.7 RBC 3.71 L Hgb 10.0 L Hct 30.6 L MCV 83 MCH 27.0 MCHC 32.6 RDW 17.0 H Plt Count 262 Seg Neutrophils % 69.4 Sodium Cancelled 138.1 Potassium Cancelled 4.0 Chloride Cancelled 109 H Carbon Dioxide Cancelled 22 Anion Gap Cancelled 7 BUN Cancelled 24 H Creatinine Cancelled 0.84 Est GFR ( Amer) Cancelled > 60 Est GFR (Non-Af Amer) Cancelled Glucose Cancelled 99 Calcium Cancelled 7.4 L Total Bilirubin Cancelled 0.3 AST Cancelled 58 Alkaline Phosphatase Cancelled 161 H Total Protein Cancelled 6.3 Albumin Cancelled 2.9 L 10/15/19 10/15/19 10:20 12:32 Troponin I Cancelled 0.024 NT-Pro-B Natriuret Pep Cancelled 7760 H Impressions: Chest X-Ray 10/15/19 09:31 IMPRESSION: Cardiac enlargement with vascular congestion. Left basilar opacity and possible left effusion. Assessment and Plan - Diagnosis (1) Acute on chronic systolic congestive heart failure, NYHA class 3 Is this a current diagnosis for this admission?: Yes Plan: Start patient on IV Lasix 40 mg IV every 12. (2) Acute and chronic respiratory failure Qualifiers: Respiratory failure complication: hypoxia Qualified Code(s): J96.21 - Acute and chronic respiratory failure with hypoxia Is this a current diagnosis for this admission?: Yes Plan: Secondary to fluid overload/CHF exacerbation. (3) UTI (urinary tract infection) Is this a current diagnosis for this admission?: Yes Plan: Patient complains of dysuria and urinary urgency. Will order a UA. Will start empirically on Rocephin. (4) Ascites Is this a current diagnosis for this admission?: Yes Plan: We will order an abdominal ultrasound to evaluate volume of ascites and see if this is amenable to paracentesis. (5) CAD (coronary artery disease) Is this a current diagnosis for this admission?: Yes Plan: Stable. Resume home meds once verified. (6) COPD (chronic obstructive pulmonary disease) Qualifiers: COPD type: unspecified COPD Qualified Code(s): J44.9 - Chronic obstructive pulmonary disease, unspecified Is this a current diagnosis for this admission?: Yes Plan: Not in exacerbation. Breathing treatments as needed. (7) Fluid overload Qualifiers: Hypervolemia type: unspecified Qualified Code(s): E87.70 - Fluid overload, unspecified Is this a current diagnosis for this admission?: Yes (8) Tobacco abuse Is this a current diagnosis for this admission?: Yes - Time Time Spent with patient: 25-34 minutes
[2019-10-15] MEDS ORDERED: CEFTRIAXONE 1 GM/D5W RTU 1 GM/50 ML RTUPB IV ONE (17:00)
--- NOTE | 2019-10-15 17:12 | ADVANCED CARE ---
- Diagnosis (1) Acute on chronic systolic congestive heart failure, NYHA class 3 Diagnosis Current: Yes (2) Ascites Diagnosis Current: Yes (3) CHF (congestive heart failure) Diagnosis Current: Yes (4) UTI (urinary tract infection) Diagnosis Current: Yes (5) Acute and chronic respiratory failure Diagnosis Current: Yes (6) CAD (coronary artery disease) Diagnosis Current: Yes (7) COPD (chronic obstructive pulmonary disease) Diagnosis Current: Yes Resuscitation Status: Do Not Resuscitate Discussion: Discussed with patient. He verbalizes that he has expressed his wishes before and that he is a DNR/DNI and does not want to receive chest compressions, defibrillation or mechanical ventilation if the need arises. He says that his daughter, Reina is his surrogate medical decision maker.
[2019-10-15] MEDS: MORPHINE SULFATE 10 MG/ML INJ IV PRN (17:32)
[2019-10-15 18:23] LABS: APPEARANCE,URINE CLEAR; BILIRUBIN,URINE NEGATIVE (NEGATIVE); COLOR,URINE COLORLESS; GLUCOSE, URINE NEGATIVE (NEGATIVE); KETONES,URINE NEGATIVE (NEGATIVE); PROTEIN,URINE NEGATIVE (NEGATIVE); URINE SPECIFIC GRAVITY 1.005; UROBILINOGEN,URINE NEGATIVE mg/dL (<2.0)
--- NOTE | 2019-10-15 20:19 | RADIOLOGY REPORT (SQ) ---
EXAM DESCRIPTION: US ABDOMEN COMPLETED DATE/TME: 10/15/2019 16:29 CLINICAL HISTORY: 69 years, Male, distention, ascites COMPARISON: None. TECHNIQUE: 17 images LIMITATIONS: None. FINDINGS: Moderate ascites. Liver appears heterogeneous in the visualized portion IMPRESSION: Moderate ascites. Liver appears heterogeneous the visualized portion copyright 2011 [employer]- All Rights Reserved
[2019-10-15] MEDS: HEPARIN SOD (PORCINE) 5,000 UNIT/ML 1 ML VIAL SUBCUT SCH (22:53)
[2019-10-15] MEDS: POTASSIUM CHLORIDE 10 MEQ TABLET.ER PO SCH (22:54)
[2019-10-15] MEDS: FUROSEMIDE INJ/PF 40 MG/4 ML SDV IV SCH (22:54)
[2019-10-16] MEDS: MORPHINE SULFATE 10 MG/ML INJ IV PRN ×2 (05:12→12:22)
[2019-10-16] MEDS: HEPARIN SOD (PORCINE) 5,000 UNIT/ML 1 ML VIAL SUBCUT SCH ×3 (09:11→22:26)
[2019-10-16] MEDS: POTASSIUM CHLORIDE 10 MEQ TABLET.ER PO SCH ×2 (09:12→22:06)
[2019-10-16] MEDS: CEFTRIAXONE 1 GM/D5W RTU 1 GM/50 ML RTUPB IV SCH (09:12)
[2019-10-16] MEDS: FUROSEMIDE INJ/PF 40 MG/4 ML SDV IV SCH ×2 (09:12→22:06)
[2019-10-16 10:23] LABS: ANION GAP 12 (5-19); BLOOD UREA NITROGEN 27 mg/dL (7-20); CALCIUM 8.5 mg/dL (8.4-10.2); CARBON DIOXIDE 25 mmol/L (22-30); CHLORIDE 102 mmol/L (98-107); GLUCOSE 119 mg/dL (75-110); POTASSIUM 4.1 mmol/L (3.6-5.0)
[2019-10-16 12:25] LABS: INTERNATIONAL RATION (INR) 1.17
[2019-10-16] MEDS ORDERED: LIDOCAINE 1% INJ-PF (10 MG/ML) 30 ML SDV ONE (15:55)
[2019-10-16] MEDS ORDERED: ALBUTEROL SULFATE HFA (90 MCG/PUFF) 200 PUFF/8.5 GM MDI IH PRN (15:58)
[2019-10-16] MEDS ORDERED: (PENDING PHARMACY ID) (Ketoconazole [Ketoconazole] 1 APPLIC) TOP PRN (15:58)
--- NOTE | 2019-10-16 15:58 | PDOC PROGRESS REPORT ---
Subjective Progress Note for:: 10/16/19 Subjective:: DURAN TELLES is a 69 year old male with a past medical history of CHF (ejection fraction 25%), [place], hypertension, PVD, COPD, hypothyroidism, alcoholic cirrhosis, PTSD, chronic anemia, alcohol and tobacco dependence who presented with increasing shortness of breath and progressive bipedal edema. Patient was admitted for CHF exacerbation patient on fluid overload. Patient on IV Lasix. No acute event overnight. Upon encounter, he saturating well on nasal cannula. He says his shortness of breath is slightly improved from yesterday. He is diuresing well. Will be started on dobutamine drip by cardiology. Reason For Visit: FLUID OVERLOAD,CHF EXACERBATION,ASCITES Physical Exam Vital Signs: Temp Pulse Resp BP Pulse Ox 97.6 F 99 18 104/56 L 95 10/16/19 08:02 10/16/19 09:40 10/16/19 09:40 10/16/19 08:02 10/16/19 09:40 Intake & Output 10/15/19 10/16/19 10/17/19 06:59 06:59 06:59 Intake Total 1388 Output Total 3600 Balance -2212 Weight 182 lb 15.739 oz General appearance: PRESENT: no acute distress, well-developed, well-nourished Head exam: PRESENT: atraumatic, normocephalic Eye exam: PRESENT: conjunctiva pink, EOMI, PERRLA. ABSENT: scleral icterus Ear exam: PRESENT: normal external ear exam Mouth exam: PRESENT: moist, tongue midline Neck exam: ABSENT: carotid bruit, JVD, lymphadenopathy, thyromegaly Respiratory exam: PRESENT: rhonchi. ABSENT: rales, wheezes Cardiovascular exam: PRESENT: RRR. ABSENT: diastolic murmur, rubs Pulses: PRESENT: normal dorsalis pedis pul GI/Abdominal exam: PRESENT: ascites, distended, normal bowel sounds, soft. ABSENT: guarding, mass, organolmegaly, rebound, tenderness Extremities exam: PRESENT: +2 edema Neurological exam: PRESENT: alert, awake, oriented to person, oriented to place, oriented to time, oriented to situation, CN II-XII grossly intact. ABSENT: mot or sensory deficit Results Laboratory Results: 10/15/19 10:20 10/16/19 08:50 10/15/19 10/15/19 10/16/19 12:32 17:45 08:50 Sodium 138.1 138.6 Potassium 4.0 4.1 Chloride 109 H 102 Carbon Dioxide 22 25 Anion Gap 7 12 BUN 24 H 27 H Creatinine 0.84 0.97 Est GFR ( Amer) > 60 > 60 Glucose 99 119 H Calcium 7.4 L 8.5 Total Bilirubin 0.3 AST 58 Alkaline Phosphatase 161 H Total Protein 6.3 Albumin 2.9 L Urine Color COLORLESS Urine Appearance CLEAR Urine pH 5.0 Ur Specific [place] 1.005 Urine Protein NEGATIVE Urine Glucose (UA) NEGATIVE Urine Ketones NEGATIVE Urine Blood NEGATIVE Urine RBC (Auto) 2 10/15/19 10/15/19 10:20 12:32 Troponin I Cancelled 0.024 NT-Pro-B Natriuret Pep Cancelled 7760 H Impressions: Chest X-Ray 10/15/19 09:31 IMPRESSION: Cardiac enlargement with vascular congestion. Left basilar opacity and possible left effusion. Abdomen Ultrasound 10/15/19 16:29 IMPRESSION: Moderate ascites. Liver appears heterogeneous the visualized portion copyright 2011 [employer]- All Rights Reserved Assessment and Plan - Diagnosis (1) Acute on chronic systolic congestive heart failure, NYHA class 3 Is this a current diagnosis for this admission?: Yes Plan: Continue IV Lasix. Will be started on dobutamine drip by cardiology. (2) Acute and chronic respiratory failure Qualifiers: Respiratory failure complication: hypoxia Qualified Code(s): J96.21 - Acute and chronic respiratory failure with hypoxia Is this a current diagnosis for this admission?: Yes Plan: Secondary to fluid overload/CHF exacerbation. (3) UTI (urinary tract infection) Is this a current diagnosis for this admission?: Yes Plan: Patient complains of dysuria and urinary urgency. Continue Rocephin. Urine culture pending. (4) Ascites Is this a current diagnosis for this admission?: Yes Plan: Will consult radiology for paracentesis tomorrow. Revise diuretics to lasix/spironlactone reguimen prior to discharge for liver cirrhosis is contributing to patient's fluid overload and ascites. (5) CAD (coronary artery disease) Is this a current diagnosis for this admission?: Yes Plan: Stable. (6) COPD (chronic obstructive pulmonary disease) Qualifiers: COPD type: unspecified COPD Qualified Code(s): J44.9 - Chronic obstructive pulmonary disease, unspecified Is this a current diagnosis for this admission?: Yes Plan: Not in exacerbation. Breathing treatments as needed. (7) Fluid overload Qualifiers: Hypervolemia type: unspecified Qualified Code(s): E87.70 - Fluid overload, unspecified Is this a current diagnosis for this admission?: Yes (8) Tobacco abuse Is this a current diagnosis for this admission?: Yes - Time Time Spent with patient: 25-34 minutes
[2019-10-16] MEDS ORDERED: ACETAMINOPHEN 325 MG TABLET PO PRN (16:06)
[2019-10-16] MEDS ORDERED: NORMAL SALINE INJ/PF 0.9% 10 ML SDV IV PRN (16:27)
--- NOTE | 2019-10-16 16:31 | Operative Report ---
Operative Report DATE OF SURGERY: 10/16/19 PREOPERATIVE DIAGNOSIS: Congestive heart failure; COPD exacerbation POSTOPERATIVE DIAGNOSIS: Same OPERATION: Ultrasound directed insertion of right internal jugular vein central venous access catheter SURGEON: EDITH ROD ANESTHESIA: Local TISSUE REMOVED OR ALTERED: None COMPLICATIONS: None ESTIMATED BLOOD LOSS: Scant INTRAOPERATIVE FINDINGS: See below PROCEDURE: Right neck was exposed, prepped and draped with chlorhexidine. Surgical with s urgical timeout were conducted. Ultrasound was used to assist insertion of central line. The right internal jugular vein was felt to be suitable for cannulation. Skin was anesthetized 1% plain lidocaine. A anca was made the skin with 11 blade, using Seldinger technique, a needle and wire threaded into the right internal jugular vein with ultrasound guidance. The tract was dilated up and a triple-lumen central venous access catheter was threaded into the held. Was excellent aspiration above flow through all 3 lm. Catheter was flushed with heparinized saline and secured to the skin at 3 sites with 2-0 silk suture and a Biopatch and sterile dressing applied. Patient tolerated procedure well. Portable upright chest x-ray pending at time dictation. Staff may use central line.
[2019-10-16] MEDS: TRAMADOL HCL 50 MG TABLET PO PRN (17:03)
[2019-10-16] MEDS ORDERED: DOBUTAMINE HCL/D5W 500 MG/250 ML RTUINJ IV PRN (17:17)
--- NOTE | 2019-10-16 17:17 | PDOC CONSULTATION ---
Consultation-Blank Consultation: CARDIOLOGY CONSULTATION by Dr. Lorenza Sandoval on 10/16/2019. Patient seen at 4 PM. 60 minutes spent as patient more than 50% of time spent in direct patient care. REASON FOR CONSULTATION: Patient with cardiomyopathy and admitted with acute on chronic systolic heart failure and acute exacerbation of COPD. CONSULT REQUESTING PHYSICIAN: Dr. Jeff Caceres, [facility]. 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 And history of PTSD admitted with symptoms of increasing urinary frequency and dysuria and also significant increasing shortness of breath at rest shortness of breath. It is also associated with PND orthopnea. He denies he denies any palpitations or syncope. There is noes chest pain or discomfort. He also states that there is increasing leg edema which in spite of his taking Lasix has not come down. He denies dizziness or near syncope or syncope. He recently was been diagnosed as having hypothyroidism and is on replacement therapy. He also complains of wheezing and cough productive of yellowish sputum. There is no history of fever. The patient states with the current treatment is still not getting better and still having shortness of breath PND orthopnea and leg edema. Note the patient was admitted here in December 2018 and also in July 2019. In spite of care instructions the patient has canceled his scheduled appointments in the office. He claims to be compliant with medications. But he is got ongoing smoking and drinking alcohol. PAST MEDICAL HISTORY: Is positive for COPD. He states about 13 years ago he had a double pneumonia and had a myocardial infarction. He states he did not have a cardiac catheterization. He has not followed up for this with any locomotive driver. He also has a history of alcohol intake as per the records, although the patient states that he quit smoking or drinking many years ago. He does have a history of cirrhosis of the liver. He also has a history of hypertension and hyper lipidemia. He also has a prior history of morbid obesity, for which she had gastric bypass surgery. At present the patient appears malnourished and cachectic. There is no history of TIA CVA. Patient denies any chronic kidney disease. Past SURGICAL HISTORY: Is Positive for Gastric Bypass Surgery Remotely. Cardiac catheterization. ALLERGIES: The patient is allergic to azithromycin, ketorolac, and penicillins. SOCIAL HISTORY: The patient is a smoker, and does have a history of alcohol abuse. FAMILY HISTORY: Is positive for CAD, COPD and hypertension. Current Medications Generic Name Dose Route Start Last Admin Trade Name Freq PRN Reason Stop Dose Admin Acetaminophen 650 mg 10/16/19 16:06 Tylenol 325 Mg Tablet PO 11/15/19 16:05 Q6HP PRN FOR MILD PAIN Albuterol 2 puff 10/16/19 15:58 Proair Hfa Inhalation Aerosol 8.5 Gm Mdi IH 11/15/19 15:57 .CLARIFY PRN SHORTNESS OF BREATH Albuterol/Ipratropium 3 ml 10/15/19 16:31 10/16/19 09:40 Duoneb 3 Ml Ampul NEB 11/14/19 16:30 3 ml Q4HP PRN Administration SHORTNESS OF BREATH Fluticasone/Vilanterol 1 inh 10/17/19 10:00 Breo 200-25 Mcg Ellipta 14 Dose/Dpi IH 11/16/19 09:59 DAILY RODNEY Folic Acid 1 mg 10/17/19 10:00 Folvite 1 Mg Tablet PO 11/16/19 09:59 DAILY RODNEY Furosemide 40 mg 10/15/19 22:00 10/16/19 09:12 Lasix Inj/Pf 40 Mg/4 Ml Sdv IV 11/14/19 21:59 40 mg Q12 RODNEY Administration Gabapentin 1,200 mg 10/16/19 22:00 Neurontin 400 Mg Capsule PO 11/15/19 21:59 Q8 RODNEY Heparin Sodium (Porcine) 5,000 unit 10/15/19 22:00 10/16/19 09:11 Heparin Inj 5,000 Units/Ml 1 Ml Vial SUBCUT 11/14/19 21:59 5,000 unit Q12 RODNEY Administration Heparin Sodium (Porcine) 30 unit 10/16/19 22:00 Heparin Flush 10 Unit/Ml 5 Ml Disp.Syrg IV 11/15/19 21:59 Q8 RODNEY Heparin Sodium (Porcine) 30 unit 10/16/19 16:27 Heparin Flush 10 Unit/Ml 5 Ml Disp.Syrg IV 11/15/19 16:26 .AFTER EACH USE PRN AFTER EACH INTERMITTENT USE Hydralazine HCl 10 mg 10/15/19 16:37 Apresoline Inj/Pf 20 Mg/1 Ml Sdv IV 11/14/19 16:36 Q6HP PRN for SBP>170 or DBP>100 Ceftriaxone Sodium/Dextrose 1 gm in 50 mls @ 100 mls/hr 10/16/19 10:00 10/16/19 10:00 Rocephin Rtu 1 Gm/D5w 50 Ml Premix IV 10/23/19 09:59 Infused DAILY RODNEY Infusion Dobutamine HCl/Dextrose 500 mg in 250 mls @ 6.225 mls/hr 10/16/19 19:00 Dobutrex Rtu 500 Mg-D5w 250 Ml Premixed Bag IV 11/15/19 17:16 CONTINUOUS PRN THIS MED IS NOT "PRN" Protocol 2.5 MCG/KG/MIN Dopamine HCl/Dextrose 800 mg in 250 mls @ 0 mls/hr 10/16/19 19:51 10/16/19 19:50 Dopamine Rtu 800 Mg-D5w 250 Ml (Adult) Premix IV 11/15/19 19:50 3.89 mls/hr CONTINUOUS PRN 3.89 mls/hr THIS MED IS NOT "PRN" Administration Protocol Titrate Metoprolol Tartrate 12.5 mg 10/16/19 22:00 Lopressor 25 Mg Tablet PO 11/15/19 21:59 Q12 RODNEY Patient Own Medication 1 applic 10/16/19 15:58 Ketoconazole [Ketoconazole] TOP 11/15/19 15:57 .TIDP PRN RASH/ITCHING Potassium Chloride 20 meq 10/15/19 22:00 10/16/19 09:12 Klor-Con 10 Meq Tablet Er PO 11/14/19 21:59 20 meq Q12 RODNEY Administration Sodium Chloride 10 ml 10/16/19 16:27 Nacl 0.9% Inj/Pf 10 Ml Sdv IV 11/15/19 16:26 .AFTER EACH USE PRN AFTER EACH INTERMITTENT USE Tramadol HCl 100 mg 10/16/19 15:58 10/16/19 17:03 Ultram 50 Mg Tablet PO 10/23/19 15:57 100 mg Q8HP PRN Administration FOR PAIN Discontinued Medications Generic Name Dose Route Start Last Admin Trade Name Freq PRN Reason Stop Dose Admin Acetaminophen 650 mg 10/15/19 13:00 10/15/19 13:01 Tylenol 325 Mg Tablet PO 10/15/19 13:01 Not Given NOW ONE Acetaminophen 650 mg 10/15/19 16:30 Tylenol 325 Mg Tablet PO 11/14/19 16:29 Q6HP PRN FOR PAIN Digoxin 0.25 mg 10/16/19 17:30 10/16/19 18:15 Lanoxin Inj 0.5 Mg/2 Ml Ampule IV 10/16/19 17:31 0.25 mg NOW ONE Administration Furosemide 40 mg 10/15/19 13:20 10/15/19 13:31 Lasix Inj/Pf 40 Mg/4 Ml Sdv IV 10/15/19 13:21 40 mg NOW ONE Administration Furosemide 40 mg 10/15/19 14:29 10/15/19 15:27 Lasix Inj/Pf 20 Mg/2 Ml Sdv IV 10/15/19 14:30 40 mg NOW ONE Administration Furosemide Confirm 10/15/19 15:28 10/15/19 17:31 Lasix Inj/Pf 20 Mg/2 Ml Sdv Administered 10/15/19 15:29 Not Given Dose 20 mg .ROUTE .STK-MED ONE Furosemide Confirm 10/15/19 17:29 10/15/19 18:06 Lasix Inj/Pf 20 Mg/2 Ml Sdv Administered 10/15/19 17:30 Not Given Dose 20 mg .ROUTE .STK-MED ONE Ceftriaxone Sodium/Dextrose 1 gm in 50 mls @ 100 mls/hr 10/15/19 17:00 10/15/19 17:34 Rocephin Rtu 1 Gm/D5w 50 Ml Premix IV 10/15/19 17:29 100 mls/hr NOW ONE 100 mls/hr Administration Dobutamine HCl/Dextrose 500 mg in 250 mls @ 0 mls/hr 10/16/19 17:17 10/16/19 18:27 Dobutrex Rtu 500 Mg-D5w 250 Ml Premixed Bag IV 11/15/19 17:16 6.22 ml/h CONTINUOUS PRN 6.22 mls/hr THIS MED IS NOT "PRN" Administration Protocol Titrate Lidocaine HCl Confirm 10/16/19 15:55 10/16/19 16:09 Xylocaine 1% Inj-Pf (10 Mg/Ml) 30 Ml Sdv Administered 10/16/19 15:56 Not Given Dose 30 ml .ROUTE .STK-MED ONE Metolazone 10 mg 10/15/19 14:27 10/15/19 15:01 Zaroxolyn 5 Mg Tablet PO 10/15/19 14:28 10 mg NOW ONE Administration Morphine Sulfate 2 mg 10/15/19 16:31 10/16/19 12:22 Morphine 10 Mg/Ml Inj IV 10/22/19 16:30 2 mg Q6HP PRN Administration pain not rel by Tylenol DISPOSITION: He is a full code, and states that his best friend Ms. Angelika Sheets is his surrogate healthcare decision maker. He also states his daughter is also has surrogate healthcare decision maker. REVIEW OF SYSTEMS HEAD: Denies headache or head injury. EYES: No history of amblyopia diplopia. No history of amaurosis fugax. EARS: No history of hearing loss. No tinnitus. NOSE: No history of nosebleeds. No nasal polyps. MOUTH: No altered taste sensation, and no bleeding from the gums. THROAT: No history of odynophagia or dysphagia. No history of recurrent sore throats. SKIN: No history of psoriasis. No history of pruritus. No history of yellowish discoloration of the skin. NECK: Denies neck pain or swelling in the neck. LUNGS: Patient with acute exacerbation of COPD. Chest x-ray also shows bibasilar small pneumonias. He has no history of sleep apnea. The patient is a smoker. There is no hemoptysis. He has a productive cough with yellowish sputum. The onset was about 2 days ago, although the patient is not very helpful in defining the exact timeframe. He has no history of sleep apnea. No history of pulmonary embolism. HEART: Remote history of MS. No cardiac work- up. 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 His LV ejection fraction is severely reduced. He has symptoms of heart failure with with PND orthopnea leg edema., But no anginal symptoms. There is no syncope. His blood pressure is on the lower side due to most likely poor cardiac output. ENDOCRINE: Denies diabetes or thyroid disease. No polydipsia polyuria. No history of heat or cold intolerance. RENAL: Denies history of chronic kidney disease. No hematuria pyuria or dysuria. No symptoms a UTI. MUSCULOSKELETAL skeletal: Denies arthritis or collagen vascular disease. GI: History of cirrhosis present no history of jaundice. No history of fatty food intolerance. No history of GI bleed. No history of GERD or peptic ulcer disease. No altered bowel movements. Appetite is decreased. He does have some weight loss, although is not very helpful in telling exactly how much weight he is lost over a period of time. PUTTY TINTER MAKER: No history of TIA CVA. No history of headaches migraines or seizures. PSYCHIATRIC: Patient has history of alcohol and tobacco dependency. There is no history of anxiety or depression. No history of suicidal ideation. VASCULAR: No history of calf or buttock claudication.. No history of DVT HEMATOLOGICAL: No history of bleeding diathesis or clotting disorders. Metabolic: No history of gout. Prior history of morbid obesity and the patient has lost weight and appears to be cachectic and chronically ill looking at present. He has a history of hyperlipidemia, and is on Zocor at home. PHYSICAL EXAMINATION: The patient appears to be chronically ill and cachectic. At present in no acute distress. Selected Entries 10/16/19 16:42 Temperature 97.9 F Temperature Oral Source Pulse Rate 105 H Respiratory 17 Rate Blood Pressure 107/70 [Left Upper Arm ] Blood Pressure 82 Mean [Left Upper Arm] Blood Pressure Supine Position [Left Upper Arm] O2 Sat by Pulse 100 Oximetry Oxygen Delivery Nasal Cannula Method ( includes room air) Oxygen Flow 2 Rate HEAD: Is atraumatic normocephalic. EYES: Pupils are equal round regular reactive to light accommodation. Extraocular movements are normal. There is no conjunctival pallor. There is no scleral icterus. EARS: Tympanic membranes are intact. External auditory canals are clear. NOSE: There is no deviated nasal septum. There is no inflammation of the nasal mucous membrane. MOUTH: Mucous noted in the mouth are moist tongue is moist. There is no ulcers. There is no bleeding from the gums. THROAT: There is no redness of the oropharynx. There is no exudates. SKIN: There is no skin rashes or skin lesions. There is no particular ecchymosis. NECK: Is supple. There is JVD present carotids are equal there is no bruits. There is no lymphadenopathy. There is no goiter. There is no accessory muscle respiration use. Trachea central LUNGS: There is diminished air entry and prolonged expiration. On percussion there is hyperresonance. He has scattered rhonchi and few end expiratory wheezing. He has dry crackles in both the bases along with fine rales of CHF. HEART: S1-S2 is heard. S1 is of normal intensity. There is no S3 gallop. There is no S4 gallop. There is systolic murmur left sternal border and the apex there is no rub. ABDOMEN: Is obese. Nontender. There is no hepatosplenomegaly. Bowel sounds are well heard. There is no tender areas of masses. EXTREMITIES: Femorals are deep. Femorals are diminished. Leg pulses are diminished. There is 2 + bilateral pedal edema present. There is no DVT. There is no cellulitis. There is no calf tenderness. There is no sinus or clubbing. Capillary refill is normal. PUTTY TINTER MAKER: The patient is conscious awake alert oriented x3 with no focal deficits. PSYCHIATRIC: The patient judgment insight are intact, and his affect is normal. The patient's echocardiogram done in July 2019 admission shows severe LV dysfunction. Please see report Labs- Entire Visit 10/15/19 10/15/19 10/15/19 10:20 10:20 10:20 WBC 6.7 RBC 3.71 L Hgb 10.0 L Hct 30.6 L MCV 83 MCH 27.0 MCHC 32.6 RDW 17.0 H Plt Count 262 Lymph % (Auto) 16.6 [place] % (Auto) 8.7 Eos % (Auto) 4.3 Baso % (Auto) 1.0 Absolute Neuts (auto) 4.7 Absolute Lymphs (auto) 1.1 Absolute Monos (auto) 0.6 Absolute Eos (auto) 0.3 Absolute Basos (auto) 0.1 Seg Neutrophils % 69.4 PT INR Sodium Cancelled Potassium Cancelled Chloride Cancelled Carbon Dioxide Cancelled Anion Gap Cancelled BUN Cancelled Creatinine Cancelled Est GFR ( Amer) Cancelled Est GFR (Non-Af Amer) Cancelled Est GFR (MDRD) Non-Af Cancelled Glucose Cancelled POC Glucose Calcium Cancelled Total Bilirubin Cancelled Direct Bilirubin Cancelled Neonat Total Bilirubin Cancelled Neonat Direct Bilirubin Cancelled Neonat Indirect Bili Cancelled AST Cancelled ALT Cancelled Alkaline Phosphatase Cancelled Troponin I Cancelled NT-Pro-B Natriuret Pep Cancelled Total Protein Cancelled Albumin Cancelled EGFR Cancelled Urine Color Urine Appearance Urine pH Ur Specific [place] Urine Protein Urine Glucose (UA) Urine Ketones Urine Blood Urine Nitrite (Reflex) Urine Bilirubin Urine Urobilinogen Leukocyte Esterase Rfl Urine RBC (Auto) Urine Mucus (Auto) Urine Ascorbic Acid 10/15/19 10/15/19 10/15/19 12:32 12:32 17:45 WBC RBC Hgb Hct MCV MCH MCHC RDW Plt Count Lymph % (Auto) [place] % (Auto) Eos % (Auto) Baso % (Auto) Absolute Neuts (auto) Absolute Lymphs (auto) Absolute Monos (auto) Absolute Eos (auto) Absolute Basos (auto) Seg Neutrophils % PT INR Sodium 138.1 Potassium 4.0 Chloride 109 H Carbon Dioxide 22 Anion Gap 7 BUN 24 H Creatinine 0.84 Est GFR ( Amer) > 60 Est GFR (Non-Af Amer) Est GFR (MDRD) Non-Af > 60 Glucose 99 POC Glucose Calcium 7.4 L Total Bilirubin 0.3 Direct Bilirubin 0.0 Neonat Total Bilirubin Not Reportable Neonat Direct Bilirubin Not Reportable Neonat Indirect Bili Not Reportable AST 58 ALT 37 Alkaline Phosphatase 161 H Troponin I 0.024 NT-Pro-B Natriuret Pep 7760 H Total Protein 6.3 Albumin 2.9 L EGFR Urine Color COLORLESS Urine Appearance CLEAR Urine pH 5.0 Ur Specific [place] 1.005 Urine Protein NEGATIVE Urine Glucose (UA) NEGATIVE Urine Ketones NEGATIVE Urine Blood NEGATIVE Urine Nitrite (Reflex) NEGATIVE Urine Bilirubin NEGATIVE Urine Urobilinogen NEGATIVE Leukocyte Esterase Rfl NEGATIVE Urine RBC (Auto) 2 Urine Mucus (Auto) RARE Urine Ascorbic Acid NEGATIVE 10/16/19 10/16/19 10/16/19 08:04 08:50 11:30 WBC RBC Hgb Hct MCV MCH MCHC RDW Plt Count Lymph % (Auto) [place] % (Auto) Eos % (Auto) Baso % (Auto) Absolute Neuts (auto) Absolute Lymphs (auto) Absolute Monos (auto) Absolute Eos (auto) Absolute Basos (auto) Seg Neutrophils % PT 15.0 INR 1.17 Sodium 138.6 Potassium 4.1 Chloride 102 Carbon Dioxide 25 Anion Gap 12 BUN 27 H Creatinine 0.97 Est GFR ( Amer) > 60 Est GFR (Non-Af Amer) Est GFR (MDRD) Non-Af > 60 Glucose 119 H POC Glucose 150 H Calcium 8.5 Total Bilirubin Direct Bilirubin Neonat Total Bilirubin Neonat Direct Bilirubin Neonat Indirect Bili AST ALT Alkaline Phosphatase Troponin I NT-Pro-B Natriuret Pep Total Protein Albumin EGFR Urine Color Urine Appearance Urine pH Ur Specific [place] Urine Protein Urine Glucose (UA) Urine Ketones Urine Blood Urine Nitrite (Reflex) Urine Bilirubin Urine Urobilinogen Leukocyte Esterase Rfl Urine RBC (Auto) Urine Mucus (Auto) Urine Ascorbic Acid 10/16/19 21:27 WBC RBC Hgb Hct MCV MCH MCHC RDW Plt Count Lymph % (Auto) [place] % (Auto) Eos % (Auto) Baso % (Auto) Absolute Neuts (auto) Absolute Lymphs (auto) Absolute Monos (auto) Absolute Eos (auto) Absolute Basos (auto) Seg Neutrophils % PT INR Sodium Potassium Chloride Carbon Dioxide Anion Gap BUN Creatinine Est GFR ( Amer) Est GFR (Non-Af Amer) Est GFR (MDRD) Non-Af Glucose POC Glucose 95 Calcium Total Bilirubin Direct Bilirubin Neonat Total Bilirubin Neonat Direct Bilirubin Neonat Indirect Bili AST ALT Alkaline Phosphatase Troponin I NT-Pro-B Natriuret Pep Total Protein Albumin EGFR Urine Color Urine Appearance Urine pH Ur Specific [place] Urine Protein Urine Glucose (UA) Urine Ketones Urine Blood Urine Nitrite (Reflex) Urine Bilirubin Urine Urobilinogen Leukocyte Esterase Rfl Urine RBC (Auto) Urine Mucus (Auto) Urine Ascorbic Acid Chest X-Ray 10/15/19 09:31 IMPRESSION: Cardiac enlargement with vascular congestion. Left basilar opacity and possible left effusion. Abdomen Ultrasound 10/15/19 16:29 IMPRESSION: Moderate ascites. Liver appears heterogeneous the visualized portion copyright 2011 [employer]- All Rights Reserved Chest X-Ray 10/16/19 16:27 IMPRESSION: Lines and tubes as above. Unchanged retrocardiac airspace opacities and cardiomegaly. IMPRESSION/RECOMMENDATION: 1. Acute on chronic respiratory failure: This is a combination of acute exacerbation of COPD, pneumonia, bronchitis, and congestive heart failure. 2. Acute exacerbation of COPD.: Continue antibiotics continue respiratory treatments and oxygen. 3. Acute on chronic systolic heart failure: The patient still is in significant heart failure with a combination of acute exacerbation of COPD. The heart failure is due to acute on chronic systolic heart failure. In view of this we will transfer the patient to [facility], and have a central line placed on the patient by the surgical list, and start the patient on dobutamine and if the blood pressure does not tolerate it dopamine to keep the blood pressure up. At present we will hold the patient's metoprolol. Continue the patient's IV Lasix. I have discussed with the surgical list regarding the consult for insertion of a triple-lumen catheter. Later we will restart the patient's beta-sarina and ARB/MILAGRO inhibitor. 3. 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 Continue anti-cardiomyopathy treatment as per gold standard which is being done. 4.Coronary artery disease: History of myocardial infarction in the past: No evidence of anginal symptoms. No evidence of elevated troponin I at this admission. 5. Hypertension: At present blood pressure is acceptable. 6. History of cirrhosis of the liver: Secondary to chronic alcohol abuse. 7. History of alcohol abuse and tobacco abuse disorder. Ill effects of alcohol and tobacco have been discussed with the patient tobacco cessation counseling was done. This took about 4 minutes. 8. Hyperlipidemia: Continue statins. Medications reviewed. Medication regimen and management plan discussed with attending provider the case. Medical decision making is of high complexity. 60 minutes spent with patient more than 50% of time spent in direct patient care. Will follow.
--- NOTE | 2019-10-16 17:25 | RADIOLOGY REPORT (SQ) ---
EXAM DESCRIPTION: CHEST SINGLE VIEW COMPLETED DATE/TIME: 10/16/2019 5:11 pm REASON FOR STUDY: Status post IJ central line insertion COMPARISON: Chest radiographs 10/15/2019 EXAM PARAMETERS: NUMBER OF VIEWS: One view. TECHNIQUE: Single frontal radiographic view of the chest acquired. RADIATION DOSE: NA LIMITATIONS: None. FINDINGS: LUNGS AND PLEURA: Unchanged retrocardiac airspace opacities. No masses or pneumothorax. N o large pleural effusion. MEDIASTINUM AND HILAR STRUCTURES: No masses. Contour normal. HEART AND VASCULAR STRUCTURES: Unchanged cardiomegaly. Normal vasculature. BONES: No acute findings. Intact left clavicle fixation hardware. HARDWARE: Interval placement of right internal jugular central venous catheter with the tip projectin g over the inferior cavoatrial junction. Right upper abdominal surgical clips. Left upper abdominal chain suture. OTHER: No other significant finding. IMPRESSION: Lines and tubes as above. Unchanged retrocardiac airspace opacities and cardiomegaly. TECHNICAL DOCUMENTATION: JOB ID: [id number] [employer]- All Rights Reserved Reading location - IP/workstation name: [email or web address]
[2019-10-16] MEDS ORDERED: DIGOXIN INJ 0.5 MG/2 ML AMPULE IV ONE (17:30)
[2019-10-16] MEDS: DOPAMINE HCL 800 MG/D5W 250 ML IV PRN (19:50)
[2019-10-16] MEDS ORDERED: NORMAL SALINE 500 ML IV ONE (21:45)
[2019-10-16] MEDS ORDERED: METOPROLOL TARTRATE 25 MG TABLET PO SCH (22:00)
[2019-10-16] MEDS ORDERED: GABAPENTIN 300 MG CAPSULE PO SCH (22:00)
[2019-10-16] MEDS: DOBUTAMINE HCL/D5W 500 MG/250 ML RTUINJ IV PRN (22:09)
[2019-10-16] MEDS: GABAPENTIN 400 MG CAPSULE PO SCH (22:25)
[2019-10-16] MEDS: LEVALBUTEROL HCL NEB 1.25 MG/3 ML AMPUL NEB PRN (23:06)
[2019-10-16] MEDS ORDERED: NORMAL SALINE 100 ML IV ONE (23:30)
[2019-10-16 23:37] LABS: FREE T3 2.79 pg/mL (2.77-5.27); FREE T4 (FREE THYROXINE) 1.63 ng/dL (0.78-2.19)
[2019-10-16 23:50] LABS: THYROID STIMULATING HORMONE 4.07 uIU/mL (0.47-4.68)
--- NOTE | 2019-10-17 00:20 | EKG REPORT ---
SEVERITY:- ABNORMAL ECG - SINUS TACHYCARDIA MULTIPLE ATRIAL PREMATURE COMPLEXES PROBABLE LEFT ATRIAL ABNORMALITY BORDERLINE R WAVE PROGRESSION, ANTERIOR LEADS NONSPECIFIC T ABNORMALITIES, LATERAL LEADS : Confirmed by: Mary Man 17-Oct-2019 00:19:30
[2019-10-17] MEDS ORDERED: MIDODRINE HCL 5 MG TABLET PO ONE (01:00)
[2019-10-17] MEDS: GABAPENTIN 400 MG CAPSULE PO SCH ×3 (05:49→22:06)
[2019-10-17 06:38] LABS: ALBUMIN 2.8 g/dL (3.5-5.0); ALKALINE PHOSPHATASE 136 U/L (38-126); ANION GAP 6 (5-19); ASPARTATE AMINO TRANSFERASE 45 U/L (17-59); BILIRUBIN,DIRECT 0.1 mg/dL (0.0-0.4); BILIRUBIN,TOTAL 0.4 mg/dL (0.2-1.3); BLOOD UREA NITROGEN 28 mg/dL (7-20); CALCIUM 8.1 mg/dL (8.4-10.2); CARBON DIOXIDE 31 mmol/L (22-30); CHLORIDE 100 mmol/L (98-107); GLUCOSE 86 mg/dL (75-110); POTASSIUM 4.3 mmol/L (3.6-5.0); TOTAL PROTEIN 6.3 g/dL (6.3-8.2)
[2019-10-17] MEDS: LEVALBUTEROL HCL NEB 1.25 MG/3 ML AMPUL NEB PRN ×3 (07:44→21:15)
--- NOTE | 2019-10-17 08:37 | RADIOLOGY REPORT (SQ) ---
EXAM DESCRIPTION: CT ABD/PELVIS NO ORAL OR IV COMPLETED DATE/TIME: 10/17/2019 5:43 am REASON FOR STUDY: flank pain, dysuria COMPARISON: 01/11/2019 TECHNIQUE: CT scan of the abdomen and pelvis performed without intravenous or oral contrast. Images reviewed with lung, soft tissue, and bone windows. Reconstructed coronal and sagittal MPR images revi ewed. All images stored on PACS. All CT scanners at this facility use dose modulation, iterative reconstruction, and/or weight based d osing when appropriate to reduce radiation dose to as low as reasonably achievable (ALARA). [facility]: Dose Right [facility]: CareDose [facility]: Dose Right [facility]: Teradose 4D [facility]: Smart Tinychat RADIATION DOSE: CT Rad equipment meets quality standard of care and radiation dose reduction techniq ues were employed. CTDIvol: 10.1 mGy. DLP: 584 mGy-cm.mGy. LIMITATIONS: None. FINDINGS: LOWER CHEST: Increased size of a moderate pericardial effusion. Coronary atherosclerosis. Bibasilar consolidation, likely atelectasis with small bilateral effusions. NON-CONTRASTED LIVER, SPLEEN, ADRENALS: Evaluation limited by lack of IV contrast. No identified sign ificant masses. Cirrhotic hepatic morphology. PANCREAS: No masses. No peripancreatic inflammatory changes. GALLBLADDER: Surgically absent. RIGHT KIDNEY AND URETER: Assessment limited by lack of IV contrast. Multiple cysts. Additional low- density lesions, likely cyst but incompletely characterize. Possible punctate stone versus cortical calcification. No hydronephrosis or hydroureter. LEFT KIDNEY AND URETER: Assessment limited by lack of IV contrast. Stable interpolar cyst. No sign ificant calcifications. No hydronephrosis or hydroureter. AORTA AND RETROPERITONEUM: Aortoiliac atherosclerosis without aneurysm. No retroperitoneal masses or adenopathy. BOWEL AND PERITONEAL CAVITY: Evidence of prior gastric bypass. No evidence of intestinal obstruction . No focal bowel wall thickening. APPENDIX: Not visualized. PELVIS, BLADDER, AND ABDOMINAL WALL:Potter catheter retention balloon within the bladder lumen. Gas w ithin the urinary bladder, likely iatrogenic. No discrete pelvic adenopathy. Evidence of prior midl ine hernia repair with mesh hardware in place. Anasarca. BONES: No acute bony abnormality. No suspicious osseous lesions. Lower lumbar facet arthropathy. OTHER: No other significant finding. IMPRESSION: 1. Increased size of a moderate pericardial effusion. Small bilateral pleural effusion s and bibasilar atelectasis. 2. Cirrhotic hepatic morphology with moderate volume ascites, increased from prior. Anasarca. 3. No evidence of obstructive uropathy. No definitive nephrolithiasis. 4. Additional chronic findings as above. COMMENT: Quality ID # [id number]: Final reports with documentation of one or more dose reduction techniques (e.g., Automated exposure control, adjustment of the mA and/or kV according to patient size, use of iterative reconstruction technique) TECHNICAL DOCUMENTATION: JOB ID: [id number] [employer]- All Rights Reserved Reading location - IP/workstation name: [email or web address]
[2019-10-17] MEDS: FOLIC ACID 1 MG TABLET PO SCH (09:00)
[2019-10-17] MEDS: POTASSIUM CHLORIDE 10 MEQ TABLET.ER PO SCH ×2 (09:00→22:07)
[2019-10-17] MEDS: FUROSEMIDE INJ/PF 40 MG/4 ML SDV IV SCH ×2 (09:01→22:06)
[2019-10-17] MEDS: HEPARIN SOD (PORCINE) 5,000 UNIT/ML 1 ML VIAL SUBCUT SCH ×2 (09:01→22:08)
[2019-10-17] MEDS: CEFTRIAXONE 1 GM/D5W RTU 1 GM/50 ML RTUPB IV SCH (09:01)
--- NOTE | 2019-10-17 09:34 | RADIOLOGY REPORT (SQ) ---
EXAM DESCRIPTION: CHEST SINGLE VIEW COMPLETED DATE/TIME: 10/17/2019 9:14 am REASON FOR STUDY: SOB COMPARISON: 10/16/2019 EXAM PARAMETERS: NUMBER OF VIEWS: One view. TECHNIQUE: Single frontal radiographic view of the chest acquired. RADIATION DOSE: NA LIMITATIONS: None. FINDINGS: LUNGS AND PLEURA: Persistent left retrocardiac opacities with obscuration of the hemidiaph ragm. No large effusion. No pneumothorax. MEDIASTINUM AND HILAR STRUCTURES: No masses. Contour normal. HEART AND VASCULAR STRUCTURES: Enlarged, stable. Aortic atherosclerosis. BONES: Left clavicle plate and screw fixation hardware. HARDWARE: Right IJ central venous catheter tip terminates at right atrium. OTHER: No other significant finding. IMPRESSION: Stable enlarged cardiac silhouette with unchanged left retrocardiac opacities. TECHNICAL DOCUMENTATION: JOB ID: [id number] [employer]- All Rights Reserved Reading location - IP/workstation name: [email or web address]
[2019-10-17] MEDS ORDERED: DIGOXIN INJ 0.5 MG/2 ML AMPULE IV ONE ×3 (10:00→22:00)
[2019-10-17] MEDS ORDERED: FLUTICASONE/VILANTEROL 200-25 MCG/DOSE IH SCH (10:00)
--- NOTE | 2019-10-17 12:00 | PDOC PROGRESS REPORT ---
Subjective Progress Note for:: 10/17/19 Subjective:: DURAN TELLES is a 69 year old male with a past medical history of CHF (ejection fraction 25%), [place], hypertension, PVD, COPD, hypothyroidism, alcoholic cirrhosis, PTSD, chronic anemia, alcohol and tobacco dependence who presented with increasing shortness of breath and progressive bipedal edema. Patient was admitted for CHF exacerbation patient on fluid overload. Patient on IV Lasix. 10/16: No acute event overnight. Upon encounter, he saturating well on nasal cannula. He says his shortness of breath is slightly improved from yesterday. He is diuresing well. Will be started on dobutamine drip by cardiology. 10/17: Patient was started on dobutamine and dopamine last night. Blood pressures were running low and he was apparently given a 550 cc NS bolus last night. Upon encounter this morning, he says he feels slightly better and that his shortness of breath has slightly improved. Denies chest pain. Continue diuresis with IV Lasix. He still has abdominal distention and says that it is only slightly improved today. Will defer paracentesis for now due to low blood pressures and pursue it once he is more stable. Reason For Visit: FLUID OVERLOAD,CHF EXACERBATION,ASCITES Physical Exam Vital Signs: Temp Pulse Resp BP Pulse Ox 97.9 F 96 20 96/51 L 93 10/17/19 07:41 10/17/19 07:44 10/17/19 07:44 10/17/19 10:58 10/17/19 07:44 Intake & Output 10/16/19 10/17/19 10/18/19 06:59 06:59 06:59 Intake Total 1388 4068 50 Output Total 3600 4000 Balance -2212 68 50 Weight 182 lb 15.739 oz 179 lb 3.773 oz General appearance: PRESENT: no acute distress, well-developed, well-nourished Head exam: PRESENT: atraumatic, normocephalic Eye exam: PRESENT: conjunctiva pink, EOMI, PERRLA. ABSENT: scleral icterus Ear exam: PRESENT: normal external ear exam Mouth exam: PRESENT: moist, tongue midline Neck exam: ABSENT: carotid bruit, JVD, lymphadenopathy, thyromegaly Respiratory exam: PRESENT: rales, rhonchi. ABSENT: wheezes Cardiovascular exam: PRESENT: RRR. ABSENT: diastolic murmur, rubs, systolic murmur Pulses: PRESENT: normal dorsalis pedis pul GI/Abdominal exam: PRESENT: ascites, distended. ABSENT: tenderness Rectal exam: PRESENT: deferred Extremities exam: PRESENT: +2 edema Neurological exam: PRESENT: alert, awake, oriented to person, oriented to place, oriented to time, oriented to situation, CN II-XII grossly intact. ABSENT: motor sensory deficit Results Laboratory Results: 10/15/19 10:20 10/17/19 04:25 10/16/19 10/17/19 22:45 04:25 Sodium 137.2 Potassium 4.3 Chloride 100 Carbon Dioxide 31 H Anion Gap 6 BUN 28 H Creatinine 0.93 Est GFR ( Amer) > 60 Glucose 86 Calcium 8.1 L Total Bilirubin 0.4 AST 45 Alkaline Phosphatase 136 H Total Protein 6.3 Albumin 2.8 L TSH 4.07 Free T4 1.63 Free T3 pg/mL 2.79 10/15/19 10/15/19 10:20 12:32 Troponin I Cancelled 0.024 NT-Pro-B Natriuret Pep Cancelled 7760 H Impressions: Abdomen Ultrasound 10/15/19 16:29 IMPRESSION: Moderate ascites. Liver appears heterogeneous the visualized portion copyright 2011 [employer]- All Rights Reserved Abdomen/Pelvis CT 10/16/19 11:29 IMPRESSION: 1. Increased size of a moderate pericardial effusion. Small bilateral pleural effusions and bibasilar atelectasis. 2. Cirrhotic hepatic morphology with moderate volume ascites, increased from prior. Anasarca. 3. No evidence of obstructive uropathy. No definitive nephrolithiasis. 4. Additional chronic findings as above. Chest X-Ray 10/17/19 08:25 IMPRESSION: Stable enlarged cardiac silhouette with unchanged left retrocardiac opacities. Assessment and Plan - Diagnosis (1) Acute on chronic systolic congestive heart failure, NYHA class 3 Is this a current diagnosis for this admission?: Yes Plan: Patient was started on dobutamine and dopamine by cardiology last night. Blood pressures were running low and he was apparently given a 550 cc NS bolus last night. Upon encounter this morning, he says he feels slightly better and that his shortness of breath has slightly improved. Continue diuresis with IV Lasix. (2) Acute and chronic respiratory failure Qualifiers: Respiratory failure complication: hypoxia Qualified Code(s): J96.21 - Acute and chronic respiratory failure with hypoxia Is this a current diagnosis for this admission?: Yes Plan: Secondary to fluid overload/CHF exacerbation. (3) UTI (urinary tract infection) Is this a current diagnosis for this admission?: Yes Plan: Patient complains of dysuria and urinary urgency. Continue Rocephin. Urine culture pending. (4) Ascites Is this a current diagnosis for this admission?: Yes Plan: Will consult radiology for paracentesis tomorrow. Revise diuretics to lasix/spironlactone reguimen prior to discharge for liver cirrhosis is contributing to patient's fluid overload and ascites. 2/3: He still has abdominal distention and says that it is only slightly improved today. Will defer paracentesis for now due to low blood pressures and pursue it once he is more stable. (5) CAD (coronary artery disease) Is this a current diagnosis for this admission?: Yes Plan: Stable. (6) COPD (chronic obstructive pulmonary disease) Qualifiers: COPD type: unspecified COPD Qualified Code(s): J44.9 - Chronic obstructive pulmonary disease, unspecified Is this a current diagnosis for this admission?: Yes Plan: Not in exacerbation. Breathing treatments as needed. (7) Fluid overload Qualifiers: Hypervolemia type: unspecified Qualified Code(s): E87.70 - Fluid overload, unspecified Is this a current diagnosis for this admission?: Yes (8) Tobacco abuse Is this a current diagnosis for this admission?: Yes - Time Time Spent with patient: 25-34 minutes
[2019-10-17] MEDS: DOBUTAMINE HCL/D5W 500 MG/250 ML RTUINJ IV PRN (16:00)
--- NOTE | 2019-10-17 18:11 | Progress Note ---
Provider Note Provider Note: CARDIOLOGY PROGRESS NOTE by Dr. Lorenza Sandoval on 10/17/2019. Patient seen around 12:30 PM. 35 minutes spent on this patient. SUBJECTIVE: The patient's claims that he has marginally improved but still appears to be short of breath. He is still coughing up sputum. He has heart rate is in the 110s with a systolic blood pressure in the high 90s. He denies any chest pain. He has shortness of breath. He has no PND but has orthopnea. He denies palpitations or chest pain. There was no ventricular arrhythmias on the monitor. The patient's cardiac reasonable urine output. There is no alcohol withdrawal symptoms. PHYSICAL EXAMINATION: The patient appears to be a frail build and chronically ill. He appears to be malnourished. Selected Entries 10/17/19 11:16 Temperature 97.6 F Temperature Oral Source Pulse Rate 110 H Respiratory 18 Rate Blood Pressure 96/56 L Blood Pressure 69 Mean BP Location Right Arm BP Position Supine O2 Sat by Pulse 93 Oximetry Oxygen Flow 1.00 Rate Oxygen Delivery Nasal Cannula Method HEAD: Is atraumatic normocephalic. EYES: Pupils are equal round regular reactive to light accommodation. Extraocular movements are normal. There is no conjunctival pallor. There is no scleral icterus. EARS: Tympanic membranes are intact. External auditory canals are clear. NOSE: There is no deviated nasal septum. There is no inflammation of the nasal mucous membrane. MOUTH: Mucous noted in the mouth are moist tongue is moist. There is no ulcers. There is no bleeding from the gums. THROAT: There is no redness of the oropharynx. There is no exudates. SKIN: There is no skin rashes or skin lesions. There is no particular ecchymosis. NECK: Is supple. There is JVD present carotids are equal there is no bruits. There is no lymphadenopathy. There is no goiter. There is no accessory muscle respiration use. Trachea central LUNGS: There is diminished air entry and prolonged expiration. On percussion there is hyperresonance. He has scattered rhonchi and few end expiratory wheezing. He has dry crackles in both the bases along with fine rales of CHF. HEART: S1-S2 is heard. S1 is of normal intensity. There is no S3 gallop. There is no S4 gallop. There is systolic murmur left sternal border and the apex there is no rub. ABDOMEN: Is obese. Nontender. There is no hepatosplenomegaly. Bowel sounds are well heard. There is no tender areas of masses. EXTREMITIES: Femorals are deep. Femorals are diminished. Leg pulses are diminished. There is 1+ bilateral pedal edema present. There is no DVT. There is no cellulitis. There is no calf tenderness. There is no sinus or clubbing. Capillary refill is normal. 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 PSYCHIATRIC: The patient judgment insight are intact, and his affect is normal. The patient's 24-hour intake is 4068 mL. Output is 4000 mL. Labs- All tests 24 hr 10/16/19 10/17/19 22:45 04:25 Sodium 137.2 Potassium 4.3 Chloride 100 Carbon Dioxide 31 H Anion Gap 6 BUN 28 H Creatinine 0.93 Est GFR ( Amer) > 60 Est GFR (MDRD) Non-Af > 60 Glucose 86 Calcium 8.1 L Total Bilirubin 0.4 Direct Bilirubin 0.1 Neonat Total Bilirubin Not Reportable Neonat Direct Bilirubin Not Reportable Neonat Indirect Bili Not Reportable AST 45 ALT 32 Alkaline Phosphatase 136 H Total Protein 6.3 Albumin 2.8 L TSH 4.07 Free T4 1.63 Free T3 pg/mL 2.79 Chest X-Ray 10/15/19 09:31 IMPRESSION: Cardiac enlargement with vascular congestion. Left basilar opacity and possible left effusion. Abdomen Ultrasound 10/15/19 16:29 IMPRESSION: Moderate ascites. Liver appears heterogeneous the visualized portion copyright 2011 [employer]- All Rights Reserved Abdomen/Pelvis CT 10/16/19 11:29 IMPRESSION: 1. Increased size of a moderate pericardial effusion. Small bilateral pleural effusions and bibasilar atelectasis. 2. Cirrhotic hepatic morphology with moderate volume ascites, increased from prior. Anasarca. 3. No evidence of obstructive uropathy. No definitive nephrolithiasis. 4. Additional chronic findings as above. Chest X-Ray 10/16/19 16:27 IMPRESSION: Lines and tubes as above. Unchanged retrocardiac airspace opacities and cardiomegaly. Chest X-Ray 10/17/19 08:25 IMPRESSION: Stable enlarged cardiac silhouette with unchanged left retrocardiac opacities. IMPRESSION/RECOMMENDATION: 1. Acute on chronic respiratory failure: This is a combination of acute exacerbation of COPD, pneumonia, bronchitis, and congestive heart failure. 2. Acute exacerbation of COPD.: Continue antibiotics continue respiratory treatments and oxygen. 3. Acute on chronic systolic heart failure: The patient still is in significant heart failure with a combination of acute exacerbation of COPD. The heart failure is due to acute on chronic systolic heart failure. In view of this we will transfer the patient to [facility], and have a central line placed on the patient by the surgical list, and start the patient on dobutamine and if the blood pressure does not tolerate it dopamine to keep the blood pressure up. At present we will hold the patient's metoprolol. Continue the patient's IV Lasix. I have discussed with the surgical list regarding the consult for insertion of a triple-lumen catheter. Later we will restart the patient's beta-sarina and ARB/MILAGRO inhibitor. We will also give a 24-hour total fluid intake of 1500 mL. Will give an extra dose of digoxin 0.25 mg IV push to see if this will control the patient's heart rate. 3. 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 Continue anti-cardiomyopathy treatment as per gold standard which is being done. 4.Coronary artery disease: History of myocardial infarction in the past: No evidence of anginal symptoms. No evidence of elevated troponin I at this admission. 5. Hypertension: At present blood pressure is acceptable. 6. History of cirrhosis of the liver: Secondary to chronic alcohol abuse. 7. History of alcohol abuse and tobacco abuse disorder. Ill effects of alcohol and tobacco have been discussed with the patient tobacco cessation counseling was done. This took about 4 minutes. 8. Hyperlipidemia: Continue statins. Medications reviewed. Medications adjusted. Medical decision making is of high complexity. Medical regimen and management plan discussed with attending physician. 40 minutes spent with patient with more than 50% of time spent in direct patient care. Will follow.
[2019-10-17] MEDS ORDERED: DIGOXIN INJ 0.5 MG/2 ML AMPULE ONE (21:22)
--- NOTE | 2019-10-17 21:52 | EKG REPORT ---
SEVERITY:- ABNORMAL ECG - SINUS TACHYCARDIA MULTIPLE ATRIAL PREMATURE COMPLEXES BORDERLINE R WAVE PROGRESSION, ANTERIOR LEADS NONSPECIFIC T ABNORMALITIES, LATERAL LEADS : Confirmed by: Lorenza Sandoval MD 17-Oct-2019 21:51:45
[2019-10-17] MEDS ORDERED: AMIODARONE HCL 150 MG in DEXTROSE 5%-WATER 100 ML IV ONE (23:00)
--- NOTE | 2019-10-17 23:22 | Progress Note ---
Provider Note Provider Note: CARDIOLOGY NOTE by Dr. Lorenza Sandoval on 10/17/2019. At the request of the nurse patient reexamined again. The patient was seen from 9:30 PM to 10:15 PM. Total 45 minutes spent with patient managing the patient. [Prolonged shelter note] Reason FOR THIS VISIT: The nurse called me saying that the patient's heart rate was 145 bpm with a systolic blood pressure in the high 90s around 96. The patient was having increasing shortness of breath and wheezing. He is also having cough. There is no chest pains. The patient is EKG shows sinus tachycardia with APCs. The patient continues to wheeze and has orthopnea. He also has been having episodes of PND. He is tachycardic and he states that he has a cough which is productive of yellowish sputum. He also continues to wheeze. His leg edema is about the same as in the morning. The patient incessantly is drinking water. The patient consult that he should limit his fluid intake to 1500 mL/min. The patient's heart rate continues to be fast in spite of an extra dose of digoxin given earlier at a dose of 0.25 mg IV push. Repeat doses of 0.125 mg IV push has been ordered now. Decision has been made to start the patient on steroids and also start the patient on amiodarone bolus and infusion. This is to be sure that the patient does not go into atrial fibrillation in view of the patient's multiple PACs. Again he denies any chest pain or discomfort. PHYSICAL EXAMINATION: The patient appears to be in moderate respiratory distress. He appears to be chronically ill. He is a frail build. Selected Entries 10/17/19 10/17/19 16:20 22:00 Temperature 98.3 F Temperature Oral Source Pulse Rate 121 to 150 bpm Respiratory 18 Rate Blood Pressure 100/40 L [Left Upper Arm ] Blood Pressure 60 Mean [Left Upper Arm] Blood Pressure Supine Position [Left Upper Arm] O2 Sat by Pulse 95 Oximetry Oxygen Delivery Nasal Cannula Method ( includes room air) Oxygen Flow 4 Rate HEAD: Is atraumatic normocephalic. EYES: Pupils are equal round regular reactive to light accommodation. Extraocular movements are normal. There is no conjunctival pallor. There is no scleral icterus. EARS: Tympanic membranes are intact. External auditory canals are clear. NOSE: There is no deviated nasal septum. There is no inflammation of the nasal mucous membrane. MOUTH: Mucous noted in the mouth are moist tongue is moist. There is no ulcers. There is no bleeding from the gums. THROAT: There is no redness of the oropharynx. There is no exudates. SKIN: There is no skin rashes or skin lesions. There is no particular ecchymosis. NECK: Is supple. There is JVD present carotids are equal there is no bruits. There is no lymphadenopathy. There is no goiter. There is mild accessory muscle respiration use. Trachea central LUNGS: There is diminished air entry and prolonged expiration. On percussion there is hyperresonance. He has scattered rhonchi and few end expiratory wheezing. He has dry crackles in both the bases along with fine rales of CHF. HEART: S1-S2 is heard. S1 is of normal intensity. There is no S3 gallop. There is no S4 gallop. There is systolic murmur left sternal border and the apex there is no rub. ABDOMEN: Is obese. Nontender. There is no hepatosplenomegaly. Bowel sounds are well heard. There is no tender areas of masses. EXTREMITIES: Femorals are deep. Femorals are diminished. Leg pulses are diminished. There is 1 + bilateral pedal edema present. There is no DVT. There is no cellulitis. There is no calf tenderness. There is no sinus or clubbing. Capillary refill is normal. 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 PSYCHIATRIC: The patient judgment insight are intact, and his affect is normal. EKG: Sinus tachycardia with frequent APCs. Poor R wave progression leads V1 to be 6. Probable old anteroseptal TN. Nonspecific T changes lateral leads. [EKG interpreted by myself] IMPRESSION/RECOMMENDATION: 1. Acute on chronic respiratory failure: This is a combination of acute exacerbation of COPD, pneumonia, bronchitis, and congestive heart failure. 2. Acute exacerbation of COPD.: Continue antibiotics continue respiratory treatments and oxygen. We will start the patient on steroids. 3. Tachycardia appears to be sinus tachycardia with frequent APCs. We will start the patient on amiodarone drip. Continue the patient's dobutamine and Dobutrex. Continue IV Lasix. Restrict the patient's fluids. 4. Acute on chronic systolic heart failure: The patient still is in significant heart failure with a combination of acute exacerbation of COPD. The heart failure is due to acute on chronic systolic heart failure. In view of this we will transfer the patient to [facility], and have a central line placed on the patient by the surgical list, and start the patient on dobutamine and if the blood pressure does not tolerate it dopamine to keep the blood pressure up. At present we will hold the patient's metoprolol. Continue the patient's IV Lasix. I have discussed with the surgical list regarding the consult for insertion of a triple-lumen catheter. Later we will restart the patient's beta-sarina and ARB/MILAGRO inhibitor. 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 Continue anti-cardiomyopathy treatment as per gold standard which is being done. 6.Coronary artery disease: History of myocardial infarction in the past: No evidence of anginal symptoms. No evidence of elevated troponin I at this admission. 7. Hypertension: At present blood pressure is acceptable. 8. History of cirrhosis of the liver: Secondary to chronic alcohol abuse. 9. History of alcohol abuse and tobacco abuse disorder. Ill effects of alcohol and tobacco have been discussed with the patient tobacco cessation counseling was done. This took about 4 minutes. 10. Hyperlipidemia: Continue statins. Medications reviewed and medications adjusted and added. Medical decision making is of high complexity. 45 minutes spent as patient for this prolonged critical care shelter. Orders written.
[2019-10-17] MEDS ORDERED: AMIODARONE HCL INJ 150 MG/3 ML VIAL IV ONE (23:27)
[2019-10-17] MEDS: DEXTROSE 5%-WATER 500 ML with AMIODARONE HCL 900 MG IV PRN ×2 (23:50)
[2019-10-18] MEDS ORDERED: METHYLPREDNISOLONE INJ 40 MG/1 ML SDV IV ONE (01:00)
[2019-10-18] MEDS: DOPAMINE HCL 800 MG/D5W 250 ML IV PRN (03:07)
[2019-10-18] MEDS: METHYLPREDNISOLONE INJ 40 MG/1 ML SDV IV SCH ×3 (05:38→22:04)
[2019-10-18] MEDS: GABAPENTIN 400 MG CAPSULE PO SCH ×3 (05:38→22:04)
[2019-10-18 07:05] LABS: ALBUMIN 2.9 g/dL (3.5-5.0); ALKALINE PHOSPHATASE 141 U/L (38-126); ANION GAP 7 (5-19); ASPARTATE AMINO TRANSFERASE 50 U/L (17-59); BILIRUBIN,DIRECT 0.3 mg/dL (0.0-0.4); BILIRUBIN,TOTAL 0.7 mg/dL (0.2-1.3); BLOOD UREA NITROGEN 24 mg/dL (7-20); CALCIUM 8.1 mg/dL (8.4-10.2); CARBON DIOXIDE 36 mmol/L (22-30); CHLORIDE 93 mmol/L (98-107); DIGOXIN 1.37 ng/mL (0.8-2.0); GLUCOSE 117 mg/dL (75-110); POTASSIUM 4.2 mmol/L (3.6-5.0); TOTAL PROTEIN 6.8 g/dL (6.3-8.2)
[2019-10-18] MEDS: HEPARIN SOD (PORCINE) 5,000 UNIT/ML 1 ML VIAL SUBCUT SCH ×2 (09:30→23:39)
--- NOTE | 2019-10-18 09:33 | RADIOLOGY REPORT (SQ) ---
EXAM DESCRIPTION: CHEST SINGLE VIEW COMPLETED DATE/TIME: 10/18/2019 7:56 am REASON FOR STUDY: CHF /PNA COMPARISON: Chest film 07/08/2019, 10/17/2027 CT angio chest 07/18/2019 EXAM PARAMETERS: NUMBER OF VIEWS: One view. TECHNIQUE: Single frontal radiographic view of the chest acquired. RADIATION DOSE: NA LIMITATIONS: None. FINDINGS: LUNGS AND PLEURA: No opacities, masses or pneumothorax. No pleural effusion. MEDIASTINUM AND HILAR STRUCTURES: No masses. Contour normal. HEART AND VASCULAR STRUCTURES: Stable marked cardiomegaly BONES: Old left clavicle fixation plate HARDWARE: Right jugular triple lumen catheter tip in the right atrium. Clips right upper quadrant po st cholecystectomy OTHER: No other significant finding. IMPRESSION: Stable cardiomegaly. No acute infiltrates TECHNICAL DOCUMENTATION: JOB ID: [id number] [employer]- All Rights Reserved Reading location - IP/workstation name: [email or web address]
[2019-10-18] MEDS: POTASSIUM CHLORIDE 10 MEQ TABLET.ER PO SCH ×2 (09:35→22:04)
[2019-10-18] MEDS: FOLIC ACID 1 MG TABLET PO SCH (09:35)
[2019-10-18] MEDS: FUROSEMIDE INJ/PF 40 MG/4 ML SDV IV SCH ×2 (09:35→22:03)
[2019-10-18] MEDS: CEFTRIAXONE 1 GM/D5W RTU 1 GM/50 ML RTUPB IV SCH (09:35)
--- NOTE | 2019-10-18 10:25 | PDOC PROGRESS REPORT ---
Subjective Progress Note for:: 10/18/19 Reason For Visit: FLUID OVERLOAD,CHF EXACERBATION,ASCITES 10/18/2019 Patient admitted for CHF and fluid overload. Also alcohol abuse and cirrhosis of the liver as well as COPD Physical Exam Vital Signs: Temp Pulse Resp BP Pulse Ox 98.1 F 103 H 18 112/48 L 98 10/18/19 04:59 10/18/19 10:05 10/18/19 10:05 10/18/19 10:00 10/18/19 10:05 Intake & Output 10/17/19 10/18/19 10/19/19 06:59 06:59 06:59 Intake Total 4068 1695 Output Total 4000 4450 Balance 68 -2755 Weight 81.3 kg 78.5 kg General appearance: PRESENT: no acute distress, other - Patient sitting up in bed eating breakfast appears to be in no distress Respiratory exam: PRESENT: clear to auscultation rossy. ABSENT: rales, rhonchi, wheezes Cardiovascular exam: PRESENT: RRR. ABSENT: diastolic murmur, rubs, systolic murmur Neurological exam: PRESENT: alert, awake, oriented to person, oriented to place, oriented to time, oriented to situation, CN II-XII grossly intact. ABSENT: motor sensory deficit Psychiatric exam: PRESENT: appropriate affect, normal mood. ABSENT: homicidal ideation, suicidal ideation Results Laboratory Results: 10/15/19 10:20 10/18/19 06:10 10/18/19 10/18/19 03:50 06:10 Sodium Cancelled 135.5 L Potassium Cancelled 4.2 Chloride Cancelled 93 L Carbon Dioxide Cancelled 36 H Anion Gap Cancelled 7 BUN Cancelled 24 H Creatinine Cancelled 0.81 Est GFR ( Amer) Cancelled > 60 Est GFR (Non-Af Amer) Cancelled Glucose Cancelled 117 H Calcium Cancelled 8.1 L Total Bilirubin Cancelled 0.7 AST Cancelled 50 Alkaline Phosphatase Cancelled 141 H Total Protein Cancelled 6.8 Albumin Cancelled 2.9 L 10/15/19 10/15/19 10:20 12:32 Troponin I Cancelled 0.024 NT-Pro-B Natriuret Pep Cancelled 7760 H Impressions: Abdomen Ultrasound 10/15/19 16:29 IMPRESSION: Moderate ascites. Liver appears heterogeneous the visualized portion copyright 2011 [employer]- All Rights Reserved Abdomen/Pelvis CT 10/16/19 11:29 IMPRESSION: 1. Increased size of a moderate pericardial effusion. Small bilateral pleural effusions and bibasilar atelectasis. 2. Cirrhotic hepatic morphology with moderate volume ascites, increased from prior. Anasarca. 3. No evidence of obstructive uropathy. No definitive nephrolithiasis. 4. Additional chronic findings as above. Chest X-Ray 10/18/19 06:00 IMPRESSION: Stable cardiomegaly. No acute infiltrates Assessment and Plan - Diagnosis (1) Ascites Is this a current diagnosis for this admission?: Yes (2) CHF (congestive heart failure) Is this a current diagnosis for this admission?: Yes (3) Chronic obstructive pulmonary disease with acute exacerbation Is this a current diagnosis for this admission?: Yes (4) Peripheral edema Is this a current diagnosis for this admission?: Yes (5) Shortness of breath Is this a current diagnosis for this admission?: Yes (6) Alcohol dependence Qualifiers: Substance use status: uncomplicated Qualified Code(s): F10.20 - Alcohol dependence, uncomplicated Is this a current diagnosis for this admission?: Yes (7) Fluid overload Qualifiers: Hypervolemia type: unspecified Qualified Code(s): E87.70 - Fluid overload, unspecified Is this a current diagnosis for this admission?: Yes - Plan Summary Summary: 10/18/2019 Patient was admitted with shortness of breath secondary to congestive heart failure and fluid overload. Patient also had a possible diagnosis of either COPD exacerbation with bronchitis or pneumonia.. X-ray yesterday showed the possibility of opacities and/or pneumonia however chest x-ray done today, single view, shows no abnormalities. States he is feeling much better he sitting up in bed eating breakfast with no complaints. Patient is currently on a dobutamine drip dopamine drip and amiodarone drip as well. Morning patient's blood pressure is actually up to 148/84, and 112/48. Nurses were wondering about transferring the patient to ICU, I will discuss with Dr. Sandoval possibly try to start weaning him off of his drip to see if he can maintain his pressures. If not then I think that he probably should go to the ICU to be controlled with his drips. Patient's labs are noted with a chloride going down to 93 CO2 going up to 36 and BNP from several days ago 7760. Patient currently on Lasix 40 mg IV every 12 and Solu-Medrol 40 mg every 8 as well as Rocephin. Patient states he lives at home with 2 roommates that can assist in his care - Time Time Spent with patient: 25-34 minutes
[2019-10-18] MEDS: DOBUTAMINE HCL/D5W 500 MG/250 ML RTUINJ IV PRN (11:00)
[2019-10-18 11:08] LABS: HEMATOCRIT 30.7 % (37.9-51.0); HEMOGLOBIN 10.2 g/dL (13.5-17.0); MEAN CORPUSCULAR HGB CONC 33.2 g/dL (32.0-36.0); MEAN CORPUSCULAR VOLUME 81 fl (80-97); PLATELET COUNT 167 10^3/uL (150-450); RED BLOOD COUNT 3.78 10^6/uL (4.35-5.55); RED CELL DISTRIBUTION WIDTH 15.8 % (11.5-14.0); WHITE BLOOD COUNT 6.1 10^3/uL (4.0-10.5)
[2019-10-18 11:59] LABS: ABSOLUTE LYMPHOCYTES# (MANUAL) 0.2 10^3/uL (0.5-4.7); BASOPHILS % (MANUAL) 0 % (0-2); EOSINOPHILS % (MANUAL) 0 % (0-6); LYMPHOCYTES % (MANUAL) 3 % (13-45); MONOCYTES % (MANUAL) 0 % (3-13); SEGMENTED NEUTROPHILS % (MAN) 97 % (42-78); TOTAL CELLS COUNTED 100
[2019-10-18 12:03] LABS: ANISOCYTOSIS SLIGHT; OVALOCYTES SLIGHT; PLATELET COMMENT ADEQUATE
--- NOTE | 2019-10-18 16:45 | Progress Note ---
Provider Note Provider Note: CARDIOLOGY PROGRESS NOTE by Dr. Jon Linn on 10/18/2019. SUBJECTIVE: The patient states he feels better but still has some degree of shortness of breath is has some faint expiratory wheezing. He still has orthopnea. There is no chest pain or discomfort. There is no palpitations. His leg edema is much improved and is come down to 1- bilaterally. There is no TIA CVA symptoms there is no ventricular arrhythmias on the current pressors and also no atrial arrhythmias. He is coughing up small amount of yellowish sputum. His appetite is very good. His urine output is very good. PHYSICAL EXAMINATION: The patient appears to be chronically ill. At present in no major distress. Selected Entries 10/18/19 10/18/19 10/18/19 01:50 04:59 10:05 Temperature 98.6 F 98.1 F Temperature Oral Source Pulse Rate 103 H Heart Rate ( Monitors) Respiratory 18 Rate Respiratory Normal Depth Respiratory Normal Pattern Blood Pressure O2 Sat by Pulse 98 Oximetry Oxygen Flow 4 Rate 10/18/19 10/18/19 10/18/19 11:04 13:00 13:04 Temperature Temperature Source Pulse Rate Heart Rate ( 110 Monitors) Respiratory Rate Respiratory Depth Respiratory Pattern Blood Pressure 95/47 L 124/57 L O2 Sat by Pulse Oximetry Oxygen Flow Rate 10/18/19 14:00 Temperature Temperature Source Pulse Rate 117 H Heart Rate ( 108 Monitors) Respiratory Rate Respiratory Depth Respiratory Pattern Blood Pressure O2 Sat by Pulse Oximetry Oxygen Flow Rate HEAD: Is atraumatic normocephalic. EYES: Pupils are equal round regular reactive to light accommodation. Extraocular movements are normal. There is no conjunctival pallor. There is no scleral icterus. EARS: Tympanic membranes are intact. External auditory canals are clear. NOSE: There is no deviated nasal septum. There is no inflammation of the nasal mucous membrane. MOUTH: Mucous noted in the mouth are moist tongue is moist. There is no ulcers. There is no bleeding from the gums. THROAT: There is no redness of the oropharynx. There is no exudates. SKIN: There is no skin rashes or skin lesions. There is no particular ecchymosis. NECK: Is supple. There is JVD present carotids are equal there is no bruits. There is no lymphadenopathy. There is no goiter. There is mild accessory muscle respiration use. Trachea central LUNGS: There is diminished air entry and prolonged expiration. On percussion there is hyperresonance. He has very much diminished and scattered rhonchi and few end expiratory wheezing. He has dry crackles in both the bases, but no without fine rales of CHF. HEART: S1-S2 is heard. S1 is of normal intensity. There is no S3 gallop. There is no S4 gallop. There is systolic murmur left sternal border and the apex there is no rub. ABDOMEN: Is obese. Nontender. There is no hepatosplenomegaly. Bowel sounds are well heard. There is no tender areas of masses. EXTREMITIES: Femorals are deep. Femorals are diminished. Leg pulses are diminished. There is 1 + bilateral pedal edema present. There is no DVT. There is no cellulitis. There is no calf tenderness. There is no sinus or clubbing. Capillary refill is normal. 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 PSYCHIATRIC: The patient judgment insight are intact, and his affect is normal. His 24-hour total intake is 1695 mL. Output is 4450 mL. Labs- All tests 24 hr 10/18/19 10/18/19 10/18/19 03:50 06:10 10:54 WBC RBC Hgb Hct MCV MCH MCHC RDW Plt Count Lymph % (Auto) Stevens % (Auto) Eos % (Auto) Baso % (Auto) Absolute Neuts (auto) Absolute Lymphs (auto) Absolute Monos (auto) Absolute Eos (auto) Absolute Basos (auto) Total Counted Seg Neutrophils % Seg Neuts % (Manual) Lymphocytes % (Manual) Monocytes % (Manual) Eosinophils % (Manual) Basophils % (Manual) Abs Neuts (Manual) Abs Lymphs (Manual) Abs Monocytes (Manual) Absolute Eos (Manual) Abs Basophils (Manual) Platelet Comment Anisocytosis Ovalocytes Sodium Cancelled 135.5 L Potassium Cancelled 4.2 Chloride Cancelled 93 L Carbon Dioxide Cancelled 36 H Anion Gap Cancelled 7 BUN Cancelled 24 H Creatinine Cancelled 0.81 Est GFR ( Amer) Cancelled > 60 Est GFR (Non-Af Amer) Cancelled Est GFR (MDRD) Non-Af Cancelled > 60 Glucose Cancelled 117 H Calcium Cancelled 8.1 L Total Bilirubin Cancelled 0.7 Direct Bilirubin Cancelled 0.3 Neonat Total Bilirubin Cancelled Not Reportable Neonat Direct Bilirubin Cancelled Not Reportable Neonat Indirect Bili Cancelled Not Reportable AST Cancelled 50 ALT Cancelled 30 Alkaline Phosphatase Cancelled 141 H NT-Pro-B Natriuret Pep 2010 H Total Protein Cancelled 6.8 Albumin Cancelled 2.9 L EGFR Cancelled Digoxin Cancelled 1.37 10/18/19 10:54 WBC 6.1 RBC 3.78 L Hgb 10.2 L Hct 30.7 L MCV 81 MCH 27.0 MCHC 33.2 RDW 15.8 H Plt Count 167 Lymph % (Auto) Not Reportable Stevens % (Auto) Not Reportable Eos % (Auto) Not Reportable Baso % (Auto) Not Reportable Absolute Neuts (auto) Not Reportable Absolute Lymphs (auto) Not Reportable Absolute Monos (auto) Not Reportable Absolute Eos (auto) Not Reportable Absolute Basos (auto) Not Reportable Total Counted 100 Seg Neutrophils % Not Reportable Seg Neuts % (Manual) 97 H Lymphocytes % (Manual) 3 L Monocytes % (Manual) 0 L Eosinophils % (Manual) 0 Basophils % (Manual) 0 Abs Neuts (Manual) 5.9 Abs Lymphs (Manual) 0.2 L Abs Monocytes (Manual) 0.0 L Absolute Eos (Manual) 0.0 Abs Basophils (Manual) 0.0 Platelet Comment ADEQUATE Anisocytosis SLIGHT Ovalocytes SLIGHT Sodium Potassium Chloride Carbon Dioxide Anion Gap BUN Creatinine Est GFR ( Amer) Est GFR (Non-Af Amer) Est GFR (MDRD) Non-Af Glucose Calcium Total Bilirubin Direct Bilirubin Neonat Total Bilirubin Neonat Direct Bilirubin Neonat Indirect Bili AST ALT Alkaline Phosphatase NT-Pro-B Natriuret Pep Total Protein Albumin EGFR Digoxin Chest X-Ray 10/15/19 09:31 IMPRESSION: Cardiac enlargement with vascular congestion. Left basilar opacity and possible left effusion. Abdomen Ultrasound 10/15/19 16:29 IMPRESSION: Moderate ascites. Liver appears heterogeneous the visualized portion copyright 2011 [employer]- All Rights Reserved Abdomen/Pelvis CT 10/16/19 11:29 IMPRESSION: 1. Increased size of a moderate pericardial effusion. Small bilateral pleural effusions and bibasilar atelectasis. 2. Cirrhotic hepatic morphology with moderate volume ascites, increased from prior. Anasarca. 3. No evidence of obstructive uropathy. No definitive nephrolithiasis. 4. Additional chronic findings as above. Chest X-Ray 10/16/19 16:27 IMPRESSION: Lines and tubes as above. Unchanged retrocardiac airspace opacities and cardiomegaly. Chest X-Ray 10/17/19 08:25 IMPRESSION: Stable enlarged cardiac silhouette with unchanged left retrocardiac opacities. Chest X-Ray 10/18/19 06:00 IMPRESSION: Stable cardiomegaly. No acute infiltrates IMPRESSION/RECOMMENDATION: 1. Acute on chronic respiratory failure: This is a combination of acute exacerbation of COPD, pneumonia, bronchitis, and congestive heart failure. 2. Acute exacerbation of COPD.: Continue antibiotics continue respiratory treatments and oxygen. We will start the patient on steroids. 3. Tachycardia appears to be sinus tachycardia with frequent APCs. We will start the patient on amiodarone drip. Continue the patient's dobutamine and Dobutrex. Continue IV Lasix. Restrict the patient's fluids. 4. Acute on chronic systolic heart failure: The patient still is in significant heart failure with a combination of acute exacerbation of COPD. The heart failure is due to acute on chronic systolic heart failure. Patient at present is on 5 mcg/kg/min of dobutamine and 5 mcg/kg/min of dopamine. He is also on IV amiodarone drip which seems to control his heart rate much better. We will decrease the patient's dopamine. Later we will need to start stop the patient's amiodarone when the patient is off the pressors and start the patient on Toprol- XL. We will slowly start the patient on a MILAGRO inhibitor. At present we will hold the patient's metoprolol. Continue the patient's IV Lasix. Once the wheezing site resolves then we will start the patient on a beta-sarina. 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 Continue anti-cardiomyopathy treatment as per gold standard which is being done. 6.Coronary artery disease: History of myocardial infarction in the past: No evidence of anginal symptoms. No evidence of elevated troponin I at this admission. 7. Hypertension: At present blood pressure is acceptable. 8. History of cirrhosis of the liver: Secondary to chronic alcohol abuse. 9. History of alcohol abuse and tobacco abuse disorder. Ill effects of alcohol and tobacco have been discussed with the patient tobacco cessation counseling was done earlier this admission. 10. Hyperlipidemia: Continue statins. Medications reviewed. Dopamine dosage adjusted and decreased to 2.5 mcg/kg/min. We will see if we can wean off of the pressors. Will add an MILAGRO inhibitor. Medical decision making is of high complexity. 40 minutes spent as patient more than 50% time spent in direct patient care. Medical regimen and management plan discussed with the attending provider on the case. Will follow
[2019-10-18] MEDS: LISINOPRIL 5 MG TABLET PO SCH (22:04)
[2019-10-18] MEDS: DEXTROSE 5%-WATER 500 ML with AMIODARONE HCL 900 MG IV PRN ×2 (23:45)
[2019-10-19] MEDS: LEVALBUTEROL HCL NEB 1.25 MG/3 ML AMPUL NEB PRN ×3 (00:01→20:39)
[2019-10-19] MEDS: GABAPENTIN 400 MG CAPSULE PO SCH ×3 (05:21→21:12)
[2019-10-19] MEDS: METHYLPREDNISOLONE INJ 40 MG/1 ML SDV IV SCH ×2 (05:21→21:12)
[2019-10-19] MEDS: DOBUTAMINE HCL/D5W 500 MG/250 ML RTUINJ IV PRN (05:24)
[2019-10-19] MEDS: DOPAMINE HCL 800 MG/D5W 250 ML IV PRN (05:29)
[2019-10-19 09:46] LABS: ALBUMIN 3.1 g/dL (3.5-5.0); ALKALINE PHOSPHATASE 147 U/L (38-126); ANION GAP 10 (5-19); ASPARTATE AMINO TRANSFERASE 34 U/L (17-59); BILIRUBIN,DIRECT 0.4 mg/dL (0.0-0.4); BILIRUBIN,TOTAL 0.4 mg/dL (0.2-1.3); BLOOD UREA NITROGEN 26 mg/dL (7-20); CALCIUM 8.6 mg/dL (8.4-10.2); CARBON DIOXIDE 37 mmol/L (22-30); CHLORIDE 88 mmol/L (98-107); GLUCOSE 246 mg/dL (75-110); POTASSIUM 3.9 mmol/L (3.6-5.0); TOTAL PROTEIN 6.9 g/dL (6.3-8.2)
[2019-10-19] MEDS: POTASSIUM CHLORIDE 10 MEQ TABLET.ER PO SCH ×3 (10:34→21:12)
[2019-10-19] MEDS: FOLIC ACID 1 MG TABLET PO SCH (10:34)
[2019-10-19] MEDS: FUROSEMIDE INJ/PF 40 MG/4 ML SDV IV SCH ×2 (10:35→21:12)
[2019-10-19] MEDS: CEFTRIAXONE 1 GM/D5W RTU 1 GM/50 ML RTUPB IV SCH (10:39)
[2019-10-19] MEDS: LISINOPRIL 5 MG TABLET PO SCH ×2 (10:40→21:12)
[2019-10-19] MEDS: HEPARIN SOD (PORCINE) 5,000 UNIT/ML 1 ML VIAL SUBCUT SCH ×2 (10:40→21:13)
--- NOTE | 2019-10-19 10:52 | PDOC PROGRESS REPORT ---
Subjective Progress Note for:: 10/19/19 Reason For Visit: FLUID OVERLOAD,CHF EXACERBATION,ASCITES 10/19/2019 Patient admitted for CHF and fluid overload as well as tachycardia and frequent APCs Physical Exam Vital Signs: Temp Pulse Resp BP Pulse Ox 98.1 F 115 H 16 128/52 H 97 10/19/19 05:10 10/19/19 08:00 10/19/19 05:10 10/19/19 08:00 10/19/19 05:10 Intake & Output 10/18/19 10/19/19 10/20/19 06:59 06:59 06:59 Intake Total 1695 2258 Output Total 4452 5124 Balance -9670 -0817 Weight 78.5 kg 74.6 kg General appearance: PRESENT: no acute distress, well-developed, well-nourished Respiratory exam: PRESENT: clear to auscultation rossy. ABSENT: rales, rhonchi, w heezes Cardiovascular exam: PRESENT: tachycardia Neurological exam: PRESENT: alert, awake, oriented to person, oriented to place, oriented to time, oriented to situation, CN II-XII grossly intact. ABSENT: motor sensory deficit Psychiatric exam: PRESENT: appropriate affect, normal mood. ABSENT: homicidal ideation, suicidal ideation Results Laboratory Results: 10/18/19 10:54 10/19/19 09:00 10/18/19 10/19/19 10:54 09:00 WBC 6.1 RBC 3.78 L Hgb 10.2 L Hct 30.7 L MCV 81 MCH 27.0 MCHC 33.2 RDW 15.8 H Plt Count 167 Seg Neutrophils % Not Reportable Sodium 134.9 L Potassium 3.9 Chloride 88 L Carbon Dioxide 37 H Anion Gap 10 BUN 26 H Creatinine 0.71 Est GFR ( Amer) > 60 Glucose 246 H Calcium 8.6 Total Bilirubin 0.4 AST 34 Alkaline Phosphatase 147 H Total Protein 6.9 Albumin 3.1 L 10/15/19 17:45 Potter Catheter Urine Culture - Final NO GROWTH 2 DAYS 10/15/19 10/15/19 10/18/19 10:20 12:32 10:54 Troponin I Cancelled 0.024 NT-Pro-B Natriuret Pep Cancelled 7760 H 2010 H Impressions: Abdomen Ultrasound 10/15/19 16:29 IMPRESSION: Moderate ascites. Liver appears heterogeneous the visualized portion copyright 2011 [employer]- All Rights Reserved Abdomen/Pelvis CT 10/16/19 11:29 IMPRESSION: 1. Increased size of a moderate pericardial effusion. Small bilateral pleural effusions and bibasilar atelectasis. 2. Cirrhotic hepatic morphology with moderate volume ascites, increased from prior. Anasarca. 3. No evidence of obstructive uropathy. No definitive nephrolithiasis. 4. Additional chronic findings as above. Chest X-Ray 10/18/19 06:00 IMPRESSION: Stable cardiomegaly. No acute infiltrates Assessment and Plan - Diagnosis (1) Ascites Is this a current diagnosis for this admission?: Yes (2) CHF (congestive heart failure) Is this a current diagnosis for this admission?: Yes (3) Chronic obstructive pulmonary disease with acute exacerbation Is this a current diagnosis for this admission?: Yes (4) Peripheral edema Is this a current diagnosis for this admission?: Yes (5) Shortness of breath Is this a current diagnosis for this admission?: Yes (6) Alcohol dependence Qualifiers: Substance use status: uncomplicated Qualified Code(s): F10.20 - Alcohol dependence, uncomplicated Is this a current diagnosis for this admission?: Yes (7) Fluid overload Qualifiers: Hypervolemia type: unspecified Qualified Code(s): E87.70 - Fluid overload, unspecified Is this a current diagnosis for this admission?: Yes - Plan Summary Summary: 10/18/2019 Patient was admitted with shortness of breath secondary to congestive heart failure and fluid overload. Patient also had a possible diagnosis of either COPD exacerbation with bronchitis or pneumonia.. X-ray yesterday showed the possibility of opacities and/or pneumonia however chest x-ray done today, single view, shows no abnormalities. States he is feeling much better he sitting up in bed eating breakfast with no complaints. Patient is currently on a dobutamine drip dopamine drip and amiodarone drip as well. Morning patient's blood pressure is actually up to 148/84, and 112/48. Nurses were wondering about transferring the patient to ICU, I will discuss with Dr. Sandoval possibly try to start weaning him off of his drip to see if he can maintain his pressures. If not then I think that he probably should go to the ICU to be controlled with his drips. Patient's labs are noted with a chloride going down to 93 CO2 going up to 36 and BNP from several days ago 7760. Patient currently on Lasix 40 mg IV every 12 and Solu-Medrol 40 mg every 8 as well as Rocephin. Patient states he lives at home with 2 roommates that can assist in his care 10/19/2019 Afebrile, heart rate is anywhere from 88-120.. Blood pressure approximately 120/50. Patient is requiring 2 to 4 L of nasal cannula oxygen BNP has come down to 2010 from 7760. Patient does not complain of any chest pain or shortness of breath. Patient's dopamine has been decreased to 2.5 mcg's. Patient's dobutamine is at 5 mcg's. Patient is still on amiodarone drip at 16.6 mL's per hour. Patient is still on Rocephin for presumed bronchitis. Going to wean back patient Solu-Medrol today to every 12 hours. Continue the Lasix 40 mg IV every 12 hours for another 24 hours, then decrease this to 20 mg every 12 hours. Patient appears stable - Time Time Spent with patient: 25-34 minutes
[2019-10-19] MEDS ORDERED: MIDODRINE HCL 5 MG TABLET PO ONE (12:30)
[2019-10-19] MEDS: DEXTROSE 5%-WATER 500 ML with AMIODARONE HCL 900 MG IV PRN ×2 (19:52)
[2019-10-20] MEDS: GABAPENTIN 400 MG CAPSULE PO SCH ×3 (06:04→21:17)
[2019-10-20] MEDS: FUROSEMIDE INJ/PF 40 MG/4 ML SDV IV SCH ×2 (09:54→21:18)
[2019-10-20] MEDS: CEFTRIAXONE 1 GM/D5W RTU 1 GM/50 ML RTUPB IV SCH (09:56)
[2019-10-20] MEDS: METHYLPREDNISOLONE INJ 40 MG/1 ML SDV IV SCH ×2 (09:57→21:18)
[2019-10-20] MEDS: LISINOPRIL 5 MG TABLET PO SCH ×2 (10:11→21:17)
[2019-10-20] MEDS: HEPARIN SOD (PORCINE) 5,000 UNIT/ML 1 ML VIAL SUBCUT SCH ×2 (10:11→21:18)
[2019-10-20] MEDS: POTASSIUM CHLORIDE 10 MEQ TABLET.ER PO SCH ×2 (10:11→21:17)
[2019-10-20] MEDS: FOLIC ACID 1 MG TABLET PO SCH (10:11)
[2019-10-20] MEDS: LEVALBUTEROL HCL NEB 1.25 MG/3 ML AMPUL NEB PRN ×2 (10:20→14:34)
--- NOTE | 2019-10-20 10:35 | PDOC PROGRESS REPORT ---
Subjective Progress Note for:: 10/20/19 Reason For Visit: FLUID OVERLOAD,CHF EXACERBATION,ASCITES 10/20/2019 CHF exacerbation, tachycardia, frequent APCs, alcoholic cirrhosis Physical Exam Vital Signs: Temp Pulse Resp BP Pulse Ox 97.4 F 86 18 117/64 100 10/20/19 06:52 10/20/19 07:00 10/20/19 06:52 10/20/19 07:00 10/20/19 06:52 Intake & Output 10/19/19 10/20/19 10/21/19 06:59 06:59 06:59 Intake Total 2258 1881 Output Total 6800 3850 Balance -4541 Weight 74.6 kg 76 kg General appearance: PRESENT: no acute distress Respiratory exam: PRESENT: clear to auscultation rossy. ABSENT: rales, rhonchi, wheezes Cardiovascular exam: PRESENT: RRR. ABSENT: diastolic murmur, rubs, systolic murmur Neurological exam: PRESENT: alert, awake, oriented to person, oriented to place, oriented to time, oriented to situation, CN II-XII grossly intact. ABSENT: motor sensory deficit Psychiatric exam: PRESENT: agitated, anxious, unusual affect Results Laboratory Results: 10/18/19 10:54 10/19/19 09:00 10/19/19 09:00 Magnesium 1.5 L 10/15/19 10/15/19 10/18/19 10:20 12:32 10:54 Troponin I Cancelled 0.024 NT-Pro-B Natriuret Pep Cancelled 7760 H 2010 H Impressions: Abdomen Ultrasound 10/15/19 16:29 IMPRESSION: Moderate ascites. Liver appears heterogeneous the visualized portion copyright 2011 [employer]- All Rights Reserved Abdomen/Pelvis CT 10/16/19 11:29 IMPRESSION: 1. Increased size of a moderate pericardial effusion. Small bilateral pleural effusions and bibasilar atelectasis. 2. Cirrhotic hepatic morphology with moderate volume ascites, increased from prior. Anasarca. 3. No evidence of obstructive uropathy. No definitive nephrolithiasis. 4. Additional chronic findings as above. Chest X-Ray 10/18/19 06:00 IMPRESSION: Stable cardiomegaly. No acute infiltrates Assessment and Plan - Diagnosis (1) Ascites Is this a current diagnosis for this admission?: Yes (2) CHF (congestive heart failure) Is this a current diagnosis for this admission?: Yes (3) Chronic obstructive pulmonary disease with acute exacerbation Is this a current diagnosis for this admission?: Yes (4) Peripheral edema Is this a current diagnosis for this admission?: Yes (5) Shortness of breath Is this a current diagnosis for this admission?: Yes (6) Alcohol dependence Qualifiers: Substance use status: uncomplicated Qualified Code(s): F10.20 - Alcohol dependence, uncomplicated Is this a current diagnosis for this admission?: Yes (7) Fluid overload Qualifiers: Hypervolemia type: unspecified Qualified Code(s): E87.70 - Fluid overload, unspecified Is this a current diagnosis for this admission?: Yes - Plan Summary Summary: 10/18/2019 Patient was admitted with shortness of breath secondary to congestive heart failure and fluid overload. Patient also had a possible diagnosis of either COPD exacerbation with bronchitis or pneumonia.. X-ray yesterday showed the possibility of opacities and/or pneumonia however chest x-ray done today, single view, shows no abnormalities. States he is feeling much better he sitting up in bed eating breakfast with no complaints. Patient is currently on a dobutamine drip dopamine drip and amiodarone drip as well. Morning patient's blood pressure is actually up to 148/84, and 112/48. Nurses were wondering about transferring the patient to ICU, I will discuss with Dr. Sandoval possibly try to start weaning him off of his drip to see if he can maintain his pressures. If not then I think that he probably should go to the ICU to be controlled with his drips. Patient's labs are noted with a chloride going down to 93 CO2 going up to 36 and BNP from several days ago 7760. Patient currently on Lasix 40 mg IV every 12 and Solu-Medrol 40 mg every 8 as well as Rocephin. Patient states he lives at home with 2 roommates that can assist in his care 10/19/2019 Afebrile, heart rate is anywhere from 88-120.. Blood pressure approximately 120/50. Patient is requiring 2 to 4 L of nasal cannula oxygen BNP has come down to 2010 from 7760. Patient does not complain of any chest pain or shortness of breath. Patient's dopamine has been decreased to 2.5 mcg's. Patient's dobutamine is at 5 mcg's. Patient is still on amiodarone drip at 16.6 mL's per hour. Patient is still on Rocephin for presumed bronchitis. Going to wean back patient Solu-Medrol today to every 12 hours. Continue the Lasix 40 mg IV every 12 hours for another 24 hours, then decrease this to 20 mg every 12 hours. Patient appears stable 10/20/2019 Heart rate appears to be in either the 80s or 90s appears to have stabilized since last night around 1800 hrs. patient had been tachycardic up until then but since then has had a normal rate. Pressures are very stable at approximately 120/60 Patient has been demanding to drink sodas even though he is on a fluid restriction. Patient been very hostile and aggressive with the nursing staff. Patient reportedly vomited this morning and there is no recording of any recent bowel movements. We will get a KUB this morning and placing back at n.p.o. until the KUB has been seen. Magnesium is low and will give mag riders. Recheck BNP and electrolytes this morning. Keep patient n.p.o. till etiology determined concerning vomiting - Time Time Spent with patient: 25-34 minutes
--- NOTE | 2019-10-20 10:53 | RADIOLOGY REPORT (SQ) ---
EXAM DESCRIPTION: KUB/ABDOMEN (SINGLE VIEW) COMPLETED DATE/TIME: 10/20/2019 10:40 am REASON FOR STUDY: vomiting COMPARISON: CT abdomen pelvis 10/17/2027 KUB 01/08/2019 NUMBER OF VIEWS: One view. TECHNIQUE: Supine radiographic image of the abdomen acquired. LIMITATIONS: None. FINDINGS: BOWEL GAS PATTERN: Large amount of stool throughout the colon. Rectosigmoid air bubble. Nondistended stomach. No dilated small bowel loops. CALCIFICATIONS: No suspicious calcifications. SOFT TISSUES: No gross mass or suggestion of organomegaly. HARDWARE: Small bowel enterotomy in the left lower quadrant. Potter catheter in the bladder BONES: No acute fracture. No worrisome bone lesions. OTHER: No other significant finding. IMPRESSION: Massive constipation TECHNICAL DOCUMENTATION: JOB ID: [id number] [employer]- All Rights Reserved Reading location - IP/workstation name: [email or web address]
--- NOTE | 2019-10-20 13:24 | Progress Note ---
Provider Note Provider Note: 10/20/2019 Patient vomited up some food this morning, and complained of abdominal discomfort. Patient's KUB shows massive amount of stool throughout the entire abdomen. No air-fluid levels no sign of obstruction. Informed patient that he needs to go on a clear liquid diet only, need to give enemas to start the process from below. Oral meds would not be of any value without having a bowel movement first. Patient continues to ask about eating food even after I explained all this to him. I have told the patient that if this worsens or he does not improve he could be looking at a bowel obstruction with much more severe consequences.
[2019-10-20] MEDS ORDERED: DOPAMINE HCL/DEXTROSE 5%-WATER 800 MG/250 ML RTUINJ IV ONE (14:23)
[2019-10-20] MEDS ORDERED: DOPAMINE HCL/DEXTROSE 5%-WATER 800 MG/250 ML RTUINJ IV PRN (14:28)
[2019-10-20] MEDS ORDERED: NA PHOS,M-B/NA PHOS,DI-BA (ADULT) 133 ML ENEMA PR ONE (15:00)
--- NOTE | 2019-10-20 18:02 | Progress Note ---
Provider Note Provider Note: CARDIOLOGY PROGRESS NOTE on 10/20/2019. SUBJECTIVE: The patient's dobutamine was decreased and weaned off. The patie nt's dopamine was discontinued but the patient developed hypotension and had to be restarted. The patient's shortness of breath is slightly improved. He has no orthopnea or PND. His leg edema has improved. But later the patient developed abdominal pain. He has not had a bowel movement in several days. He also has been having nausea and vomiting. Surgical, has been consulted. The patient's amiodarone drip is also been discontinued. There is no arrhythmia seen on the monitor. His electrolytes history and renal function were normal. His magnesium was low at 1.5, and this has been drip placed. PHYSICAL EXAMINATION: The patient appears to be chronically ill and malnourished. In some distress due to abdominal pain. Selected Entries 10/20/19 14:57 Temperature 98.5 F Temperature Oral Source Pulse Rate 77 Respiratory 20 Rate Blood Pressure 102/48 L Blood Pressure 66 Mean BP Location Left Arm BP Position Supine O2 Sat by Pulse 96 Oximetry Oxygen Flow 3.00 Rate Oxygen Delivery Nasal Cannula Method HEAD: Is atraumatic normocephalic. EYES: Pupils are equal round regular reactive to light accommodation. Extraocular movements are normal. There is no conjunctival pallor. There is no scleral icterus. EARS: Tympanic membranes are intact. External auditory canals are clear. NOSE: There is no deviated nasal septum. There is no inflammation of the nasal mucous membrane. MOUTH: Mucous noted in the mouth are moist tongue is moist. There is no ulcers. There is no bleeding from the gums. THROAT: There is no redness of the oropharynx. There is no exudates. SKIN: There is no skin rashes or skin lesions. There is no particular ecchymosis. NECK: Is supple. There is JVD present carotids are equal there is no bruits. There is no lymphadenopathy. There is no goiter. There is mild accessory muscle respiration use. Trachea central LUNGS: There is diminished air entry and prolonged expiration. On percussion there is hyperresonance. He has very much diminished and scattered rhonchi and few end expiratory wheezing. He has dry crackles in both the bases, but no without fine rales of CHF. HEART: S1-S2 is heard. S1 is of normal intensity. There is no S3 gallop. There is no S4 gallop. There is systolic murmur left sternal border and the apex there is no rub. ABDOMEN: Is distended. There is tenderness just above and to the left of his midabdomen. Bowel sounds are slightly increased. There is no rebound guarding or rigidity.. EXTREMITIES: Femorals are deep. Femorals are diminished. Leg pulses are diminished. There is 1 + bilateral pedal edema present. There is no DVT. There is no cellulitis. There is no calf tenderness. There is no sinus or clubbing. Capillary refill is normal. C NS: The patient is conscious awake alert oriented x3 with no focal deficits. PSYCHIATRIC: The patient judgment insight are intact, and his affect is normal. The patient's 24-hour intake is 1881 mL. Output is 3850. Chest X-Ray 10/15/19 09:31 IMPRESSION: Cardiac enlargement with vascular congestion. Left basilar opacity and possible left effusion. Abdomen Ultrasound 10/15/19 16:29 IMPRESSION: Moderate ascites. Liver appears heterogeneous the visualized portion copyright 2011 [employer]- All Rights Reserved Abdomen/Pelvis CT 10/16/19 11:29 IMPRESSION: 1. Increased size of a moderate pericardial effusion. Small bilateral pleural effusions and bibasilar atelectasis. 2. Cirrhotic hepatic morphology with moderate volume ascites, increased from prior. Anasarca. 3. No evidence of obstructive uropathy. No definitive nephrolithiasis. 4. Additional chronic findings as above. Chest X-Ray 10/16/19 16:27 IMPRESSION: Lines and tubes as above. Unchanged retrocardiac airspace opacities and cardiomegaly. Chest X-Ray 10/17/19 08:25 IMPRESSION: Stable enlarged cardiac silhouette with unchanged left retrocardiac opacities. Chest X-Ray 10/18/19 06:00 IMPRESSION: Stable cardiomegaly. No acute infiltrates KUB X-Ray 10/20/19 00:00 IMPRESSION: Massive constipation IMPRESSION/RECOMMENDATION: 1. Abdominal pain, with nausea and vomiting. Most likely due to obstipation. But surgical consult is awaited. 2. Acute on chronic respiratory failure: This is a combination of acute exacerbation of COPD, pneumonia, bronchitis, and congestive heart failure. 3. Acute exacerbation of COPD.: Continue antibiotics continue respiratory treatments and oxygen. We will start the patient on steroids. 4. Tachycardia appears to be sinus tachycardia with frequent APCs. We will start the patient on amiodarone drip. Continue the patient's dobutamine and Dobutrex. Continue IV Lasix. Restrict the patient's fluids. 5. Acute on chronic systolic heart failure: The patient still is in significant heart failure with a combination of acute exacerbation of COPD. The heart failure is due to acute on chronic systolic heart failure. Patient at present is on 5 mcg/kg/min of dobutamine and 5 mcg/kg/min of dopamine. He is also on IV amiodarone drip which seems to control his heart rate much better. We will decrease the patient's dopamine. Later we will need to start stop the patient's amiodarone when the patient is off the pressors and start the patient on Toprol- XL. We will slowly start the patient on a MILAGRO inhibitor. At present we will hold the patient's metoprolol. Continue the patient's IV Lasix. Once the wheezing site resolves then we will start the patient on a beta-sarina. 6. 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 Continue anti-cardiomyopathy treatment as per gold standard which is being done. 7.Coronary artery disease: History of myocardial infarction in the past: No evidence of anginal symptoms. No evidence of elevated troponin I at this admission. 8. Hypertension: At present blood pressure is acceptable. 9. History of cirrhosis of the liver: Secondary to chronic alcohol abuse. 10. History of alcohol abuse and tobacco abuse disorder. Ill effects of alcohol and tobacco have been discussed with the patient tobacco cessation couns eling was done earlier this admission. 11. Hyperlipidemia: Continue statins. Medications reviewed. Medications adjusted. Medical history making is of high complexity. Medical regimen and management plan discussed with attending provider on the case. 45 minutes spent with patient more than 50% of time spent in direct patient care. Will follow.
[2019-10-21] MEDS: GABAPENTIN 400 MG CAPSULE PO SCH ×3 (05:40→21:36)
[2019-10-21 05:48] LABS: HEMOGLOBIN 10.6 g/dL (13.5-17.0); MEAN CORPUSCULAR HEMOGLOBIN 26.3 pg (27.0-33.4); MEAN CORPUSCULAR HGB CONC 32.1 g/dL (32.0-36.0); MEAN CORPUSCULAR VOLUME 82 fl (80-97); PLATELET COUNT 184 10^3/uL (150-450); RED BLOOD COUNT 4.02 10^6/uL (4.35-5.55); RED CELL DISTRIBUTION WIDTH 15.9 % (11.5-14.0)
[2019-10-21 05:57] LABS: ALKALINE PHOSPHATASE 142 U/L (38-126); ASPARTATE AMINO TRANSFERASE 35 U/L (17-59); BILIRUBIN,DIRECT 0.1 mg/dL (0.0-0.4); BILIRUBIN,TOTAL 0.4 mg/dL (0.2-1.3); BLOOD UREA NITROGEN 29 mg/dL (7-20); CALCIUM 8.1 mg/dL (8.4-10.2); CHLORIDE 86 mmol/L (98-107); GLUCOSE 199 mg/dL (75-110); POTASSIUM 4.7 mmol/L (3.6-5.0); TOTAL PROTEIN 6.7 g/dL (6.3-8.2)
[2019-10-21 06:09] LABS: ANION GAP 7 (5-19)
[2019-10-21 06:11] LABS: CARBON DIOXIDE 42 mmol/L (22-30)
[2019-10-21 06:38] LABS: ABSOLUTE LYMPHOCYTES# (MANUAL) 0.4 10^3/uL (0.5-4.7); ABSOLUTE MONOCYTES # (MANUAL) 0.5 10^3/uL (0.1-1.4); BASOPHILS % (MANUAL) 0 % (0-2); EOSINOPHILS % (MANUAL) 0 % (0-6); LYMPHOCYTES % (MANUAL) 4 % (13-45); MONOCYTES % (MANUAL) 6 % (3-13); SEGMENTED NEUTROPHILS % (MAN) 90 % (42-78); TOTAL CELLS COUNTED 100
[2019-10-21 06:40] LABS: ANISOCYTOSIS SLIGHT; HYPOCHROMASIA SLIGHT; TOXIC GRANULATION SLIGHT; TOXIC VACUOLATION PRESENT
[2019-10-21 06:41] LABS: PLATELET COMMENT ADEQUATE
[2019-10-21 06:43] LABS: OVALOCYTES SLIGHT
[2019-10-21] MEDS ORDERED: NORMAL SALINE 1000 ML 500 ML IV ONE (06:45)
[2019-10-21] MEDS: MAGNESIUM SULFATE/D5W 1 GM/100 ML RTUPB IV SCH ×2 (08:48→09:33)
[2019-10-21] MEDS: HEPARIN SOD (PORCINE) 5,000 UNIT/ML 1 ML VIAL SUBCUT SCH ×2 (09:31→21:36)
[2019-10-21] MEDS: FOLIC ACID 1 MG TABLET PO SCH (09:31)
[2019-10-21] MEDS: POTASSIUM CHLORIDE 10 MEQ TABLET.ER PO SCH ×2 (09:31→21:35)
[2019-10-21] MEDS: LISINOPRIL 5 MG TABLET PO SCH ×2 (09:31→21:36)
[2019-10-21] MEDS: FUROSEMIDE INJ/PF 40 MG/4 ML SDV IV SCH (09:34)
[2019-10-21] MEDS: CEFTRIAXONE 1 GM/D5W RTU 1 GM/50 ML RTUPB IV SCH (09:34)
[2019-10-21] MEDS: METHYLPREDNISOLONE INJ 40 MG/1 ML SDV IV SCH (09:34)
--- NOTE | 2019-10-21 10:31 | PDOC PROGRESS REPORT ---
Subjective Progress Note for:: 10/21/19 Reason For Visit: FLUID OVERLOAD,CHF EXACERBATION,ASCITES 10/21/2019 HF exacerbation, tachycardia, frequent APCs, alcoholic cirrhosis, abdominal pain, constipation Physical Exam Vital Signs: Temp Pulse Resp BP Pulse Ox 97.3 F 83 18 104/62 99 10/21/19 07:39 10/21/19 07:39 10/21/19 07:39 10/21/19 07:39 10/21/19 07:39 Intake & Output 10/20/19 10/21/19 10/22/19 06:59 06:59 06:59 Intake Total 1881 1345 75 Output Total 3850 3500 Balance -1968 75 Weight 76 kg 70 kg General appearance: PRESENT: no acute distress, other - Sleeping comfortably Respiratory exam: PRESENT: wheezes Cardiovascular exam: PRESENT: RRR. ABSENT: diastolic murmur, rubs, systolic murmur GI/Abdominal exam: PRESENT: normal bowel sounds - Patient has normal bowel sounds in all 4 quadrants his abdomen is soft he has no tenderness, soft Neurological exam: PRESENT: alert, awake, oriented to person, oriented to place, oriented to time, oriented to situation, CN II-XII grossly intact. ABSENT: motor sensory deficit Psychiatric exam: PRESENT: agitated, other - Patient is very mean and rude to the nursing staff Results Laboratory Results: 10/21/19 04:41 10/21/19 04:41 10/21/19 10/21/19 04:41 04:41 WBC 9.0 RBC 4.02 L Hgb 10.6 L Hct 33.0 L MCV 82 MCH 26.3 L MCHC 32.1 RDW 15.9 H Plt Count 184 Seg Neutrophils % Not Reportable Sodium 134.5 L Potassium 4.7 Chloride 86 L Carbon Dioxide 42 H* Anion Gap 7 BUN 29 H Creatinine 0.72 Est GFR ( Amer) > 60 Glucose 199 H Calcium 8.1 L Total Bilirubin 0.4 AST 35 Alkaline Phosphatase 142 H Total Protein 6.7 Albumin 3.0 L 10/15/19 10/15/19 10/18/19 10:20 12:32 10:54 Troponin I Cancelled 0.024 NT-Pro-B Natriuret Pep Cancelled 7760 H 2010 H Impressions: Abdomen Ultrasound 10/15/19 16:29 IMPRESSION: Moderate ascites. Liver appears heterogeneous the visualized portion copyright 2010 [employer] [facility] [employer]- All Rights Reserved Abdomen/Pelvis CT 10/16/19 11:29 IMPRESSION: 1. Increased size of a moderate pericardial effusion. Small bilateral pleural effusions and bibasilar atelectasis. 2. Cirrhotic hepatic morphology with moderate volume ascites, increased from prior. Anasarca. 3. No evidence of obstructive uropathy. No definitive nephrolithiasis. 4. Additional chronic findings as above. Chest X-Ray 10/18/19 06:00 IMPRESSION: Stable cardiomegaly. No acute infiltrates KUB X-Ray 10/20/19 00:00 IMPRESSION: Massive constipation Assessment and Plan - Diagnosis (1) Ascites Is this a current diagnosis for this admission?: Yes (2) CHF (congestive heart failure) Is this a current diagnosis for this admission?: Yes (3) Chronic obstructive pulmonary disease with acute exacerbation Is this a current diagnosis for this admission?: Yes (4) Peripheral edema Is this a current diagnosis for this admission?: Yes (5) Shortness of breath Is this a current diagnosis for this admission?: Yes (6) Alcohol dependence Qualifiers: Substance use status: uncomplicated Qualified Code(s): F10.20 - Alcohol dependence, uncomplicated Is this a current diagnosis for this admission?: Yes (7) Fluid overload Qualifiers: Hypervolemia type: unspecified Qualified Code(s): E87.70 - Fluid overload, unspecified Is this a current diagnosis for this admission?: Yes (8) Constipation Is this a current diagnosis for this admission?: Yes (9) Abdominal pain Is this a current diagnosis for this admission?: Yes - Plan Summary Summary: 10/18/2019 Patient was admitted with shortness of breath secondary to congestive heart failure and fluid overload. Patient also had a possible diagnosis of either COPD exacerbation with bronchitis or pneumonia.. X-ray yesterday showed the possibility of opacities and/or pneumonia however chest x-ray done today, single view, shows no abnormalities. States he is feeling much better he sitting up in bed eating breakfast with no complaints. Patient is currently on a dobutamine drip dopamine drip and amiodarone drip as well. Morning patient's blood pressure is actually up to 148/84, and 112/48. Nurses were wondering about transferring the patient to ICU, I will discuss with Dr. Lori possibly try to start weaning him off of his drip to see if he can maintain his pressures. If not then I think that he probably should go to the ICU to be controlled with his drips. Patient's labs are noted with a chloride going down to 93 CO2 going up to 36 and BNP from several days ago 7760. Patient currently on Lasix 40 mg IV every 12 and Solu-Medrol 40 mg every 8 as well as Rocephin. Patient states he lives at home with 2 roommates that can assist in his care 10/19/2019 Afebrile, heart rate is anywhere from 88-120.. Blood pressure approximately 120/50. Patient is requiring 2 to 4 L of nasal cannula oxygen BNP has come down to 2010 from 7760. Patient does not complain of any chest pain or shortness of breath. Patient's dopamine has been decreased to 2.5 mcg's. Patient's dobutamine is at 5 mcg's. Patient is still on amiodarone drip at 16.6 mL's per hour. Patient is still on Rocephin for presumed bronchitis. Going to wean back patient Solu-Medrol today to every 12 hours. Continue the Lasix 40 mg IV every 12 hours for another 24 hours, then decrease this to 20 mg every 12 hours. Patient appears stable 10/20/2019 Heart rate appears to be in either the 80s or 90s appears to have stabilized since last night around 1800 hrs. patient had been tachycardic up until then but since then has had a normal rate. Pressures are very stable at approximately 120/60 Patient has been demanding to drink sodas even though he is on a fluid restriction. Patient been very hostile and aggressive with the nursing staff. Patient reportedly vomited this morning and there is no recording of any recent bowel movements. We will get a KUB this morning and placing back at n.p.o. until the KUB has been seen. Magnesium is low and will give mag riders. Recheck BNP and electrolytes this morning. Keep patient n.p.o. till etiology determined concerning vomiting 10/21/2019 Patient agreed to fleets enema last night and had 2 large bowel movements following the fleets enema. May be why patient's abdomen is softer today, less distended. Surgery was consulted yesterday but they did not see the patient yesterday nor today. She will continue on a clear liquid diet I have ordered another KUB to assess his stool content. If KUB looks better then will advance diet as tolerated Cardiology is working with patient concerning his arrhythmias and hypotension Pulse is regular and 83 blood pressure 104/62. Patient seems to be maintaining his systolic above 100, and diastolic is around 54-62 Will decrease Lasix today to 20 mg every 12 hours Will decrease Solu-Medrol to 40 mg daily CBC is stable. CO2 was slightly elevated this morning we will repeat late this afternoon as well as repeat magnesium level today. I have discussed patient at great length with nursing and cardiology - Time Time Spent with patient: 35 or more minutes
[2019-10-21] MEDS: LEVALBUTEROL HCL NEB 1.25 MG/3 ML AMPUL NEB PRN ×3 (10:33→19:27)
--- NOTE | 2019-10-21 11:50 | RADIOLOGY REPORT (SQ) ---
EXAM DESCRIPTION: KUB/ABDOMEN (SINGLE VIEW) COMPLETED DATE/TIME: 10/21/2019 11:34 am REASON FOR STUDY: re-evaluation of abd COMPARISON: 10/20/2019 NUMBER OF VIEWS: One view. TECHNIQUE: Supine radiographic image of the abdomen acquired. LIMITATIONS: None. FINDINGS: BOWEL GAS PATTERN: Normal bowel gas pattern. No dilated loops. Moderate formed stool thro ughout the colon. CALCIFICATIONS: No suspicious calcifications. SOFT TISSUES: No gross mass or suggestion of organomegaly. HARDWARE: Catheter overlies pelvis. Surgical clips overlie lower pelvis. BONES: No acute fracture. No worrisome bone lesions. OTHER: No other significant finding. IMPRESSION: No evidence of intestinal obstruction. Moderate formed stool throughout the colon. TECHNICAL DOCUMENTATION: JOB ID: [id number] [email or web address]- All Rights Reserved Reading location - IP/workstation name: [email or web address]
[2019-10-21] MEDS: MIDODRINE HCL 5 MG TABLET PO SCH ×2 (15:38→21:39)
[2019-10-21 18:56] LABS: BLOOD UREA NITROGEN 25 mg/dL (7-20); CALCIUM 8.3 mg/dL (8.4-10.2); GLUCOSE 216 mg/dL (75-110)
[2019-10-21 18:57] LABS: ANION GAP 6 (5-19); CARBON DIOXIDE 39 mmol/L (22-30); CHLORIDE 90 mmol/L (98-107); POTASSIUM 4.5 mmol/L (3.6-5.0)
[2019-10-21] MEDS ORDERED: FUROSEMIDE INJ/PF 20 MG/2 ML SDV IV SCH (22:00)
[2019-10-21] MEDS ORDERED: FUROSEMIDE INJ/PF 40 MG/4 ML SDV IV SCH (22:00)
--- NOTE | 2019-10-21 22:05 | Progress Note ---
Provider Note Provider Note: CARDIOLOGY PROGRESS NOTE by Dr. Lorenza Sandoval on 10/21/2019. SUBJECTIVE: The patient had an enema and had a big bowel movement and his abdominal pain resolved so did his nausea. His dobutamine was discontinued yesterday. His dopamine was stopped today and subsequently the patient's blood pressure dropped to 86 although the patient was not symptomatic. He was given a dose of Midrin and his blood pressure came up to 104. Hence we will continue the patient on Midrin. This shortness of breath is much improved. The patient states that his cough with minimal sputum production which is whitish in color. There is no chest pain or discomfort. The patient remains in sinus rhythm. There is no ventricular arrhythmias or atrial arrhythmias seen. There is no TIA CVA symptoms. The patient is also very noncooperative with his diet and fluids. He is tolerating MILAGRO inhibitor. But will start the beta-blockers from tomorrow. He has no PND orthopnea and his leg edema is only trace at present. PHYSICAL EXAMINATION: The patient appears to be chronically ill and disheveled. Selected Entries 10/21/19 10/21/19 10/21/19 11:02 14:53 19:41 Temperature 98.3 F 98.3 F 97.8 F Temperature Oral Axillary Source Pulse Rate 79 105 H 97 Respiratory 18 22 H 18 Rate Blood Pressure 108/57 L 86/71 L 104/53 L Blood Pressure 74 76 70 Mean BP Location Left Arm BP Position Supine Sitting O2 Sat by Pulse 95 98 97 Oximetry Oxygen Flow 4.00 4 5.00 Rate Oxygen Delivery Nasal Cannula Nasal Cannula Nasal Cannula Method HEAD: Is atraumatic normocephalic. EYES: Pupils are equal round regular reactive to light accommodation. Extraocular movements are normal. There is no conjunctival pallor. There is no scleral icterus. EARS: Tympanic membranes are intact. External auditory canals are clear. NOSE: There is no deviated nasal septum. There is no inflammation of the nasal mucous membrane. MOUTH: Mucous noted in the mouth are moist tongue is moist. There is no ulcers. There is no bleeding from the gums. THROAT: There is no redness of the oropharynx. There is no exudates. SKIN: There is no skin rashes or skin lesions. There is no particular ecchymosis. NECK: Is supple. There is JVD present carotids are equal there is no bruits. There is no lymphadenopathy. There is no goiter. There is mild accessory muscle respiration use. Trachea central LUNGS: There is diminished air entry and prolonged expiration. On percussion there is hyperresonance. He has very much diminished and scattered rhonchi and few end expiratory wheezing. He has dry crackles in both the bases, but no without fine rales of CHF. HEART: S1-S2 is heard. S1 is of normal intensity. There is no S3 gallop. There is no S4 gallop. There is systolic murmur left sternal border and the apex there is no rub. ABDOMEN: Is distended. There is tenderness just above and to the left of his midabdomen. Bowel sounds are slightly increased. There is no rebound guarding or rigidity.. EXTREMITIES: Femorals are deep. Femorals are diminished. Leg pulses are diminished. There is 1 + bilateral pedal edema present. There is no DVT. There is no cellulitis. There is no calf tenderness. There is no sinus or clubbing. Capillary refill is normal. C [employer] DEVELOPER: The patient is conscious awake alert oriented x3 with no focal deficits. PSYCHIATRIC: The patient judgment insight are intact, and his affect is normal. Labs- All tests 24 hr 10/21/19 10/21/19 10/21/19 04:41 04:41 18:20 WBC 9.0 RBC 4.02 L Hgb 10.6 L Hct 33.0 L MCV 82 MCH 26.3 L MCHC 32.1 RDW 15.9 H Plt Count 184 Lymph % (Auto) Not Reportable Day % (Auto) Not Reportable Eos % (Auto) Not Reportable Baso % (Auto) Not Reportable Absolute Neuts (auto) Not Reportable Absolute Lymphs (auto) Not Reportable Absolute Monos (auto) Not Reportable Absolute Eos (auto) Not Reportable Absolute Basos (auto) Not Reportable Total Counted 100 Seg Neutrophils % Not Reportable Seg Neuts % (Manual) 90 H Lymphocytes % (Manual) 4 L Monocytes % (Manual) 6 Eosinophils % (Manual) 0 Basophils % (Manual) 0 Abs Neuts (Manual) 8.1 Abs Lymphs (Manual) 0.4 L Abs Monocytes (Manual) 0.5 Absolute Eos (Manual) 0.0 Abs Basophils (Manual) 0.0 Toxic Granulation SLIGHT Toxic Vacuolation PRESENT Platelet Comment ADEQUATE Hypochromasia SLIGHT Anisocytosis SLIGHT Ovalocytes SLIGHT Sodium 134.5 L 135.4 L Potassium 4.7 4.5 Chloride 86 L 90 L Carbon Dioxide 42 H* 39 H Anion Gap 7 6 BUN 29 H 25 H Creatinine 0.72 0.88 Est GFR ( Amer) > 60 > 60 Est GFR (MDRD) Non-Af > 60 > 60 Glucose 199 H 216 H Calcium 8.1 L 8.3 L Magnesium 2.1 Total Bilirubin 0.4 Direct Bilirubin 0.1 Neonat Total Bilirubin Not Reportable Neonat Direct Bilirubin Not Reportable Neonat Indirect Bili Not Reportable AST 35 ALT 28 Alkaline Phosphatase 142 H Total Protein 6.7 Albumin 3.0 L Chest X-Ray 10/15/19 09:31 IMPRESSION: Cardiac enlargement with vascular congestion. Left basilar opacity and possible left effusion. Abdomen Ultrasound 10/15/19 16:29 IMPRESSION: Moderate ascites. Liver appears heterogeneous the visualized portion copyright 2010 [employer]- All Rights Reserved Abdomen/Pelvis CT 10/16/19 11:29 IMPRESSION: 1. Increased size of a moderate pericardial effusion. Small bilateral pleural effusions and bibasilar atelectasis. 2. Cirrhotic hepatic morphology with moderate volume ascites, increased from prior. Anasarca. 3. No evidence of obstructive uropathy. No definitive nephrolithiasis. 4. Additional chronic findings as above. Chest X-Ray 10/16/19 16:27 IMPRESSION: Lines and tubes as above. Unchanged retrocardiac airspace opacities and cardiomegaly. Chest X-Ray 10/17/19 08:25 IMPRESSION: Stable enlarged cardiac silhouette with unchanged left retrocardiac opacities. Chest X-Ray 10/18/19 06:00 IMPRESSION: Stable cardiomegaly. No acute infiltrates KUB X-Ray 10/20/19 00:00 IMPRESSION: Massive constipation KUB X-Ray 10/21/19 00:00 IMPRESSION: No evidence of intestinal obstruction. Moderate formed stool throughout the colon. IMPRESSION/RECOMMENDATION: 1. Abdominal pain, with nausea and vomiting. Most likely due to obstipation. After enema the patient's constipation has been relieved. And the patient now has no further symptoms of abdominal pain or vomiting. Surgical consult has been discontinued 2. Acute on chronic respiratory failure: This is a combination of acute exacerbation of COPD, pneumonia, bronchitis, and congestive heart failure. The patient is off dopamine. We will start the patient on midodrine. We will try to start the patient on Toprol-XL from tomorrow. 3. Acute exacerbation of COPD.: Continue antibiotics continue respiratory treatments and oxygen. We will start the patient on steroids. 4. Tachycardia appears to be sinus tachycardia with frequent APCs. Heart rate is much improved. The patient's amiodarone drip has been discontinued.. Continue the patient's dobutamine and Dobutrex. Continue IV Lasix. Restrict the patient's fluids. 5. Acute on chronic systolic heart failure: The patient still is in significant heart failure with a combination of acute exacerbation of COPD. The heart failure is due to acute on chronic systolic heart failure. Patient at present is on 5 mcg/kg/min of dobutamine and 5 mcg/kg/min of dopamine. He is also on IV amiodarone drip which seems to control his heart rate much better. We will decrease the patient's dopamine. Later we will need to start stop the patient's amiodarone when the patient is off the pressors and start the patient on Toprol- XL. We will slowly start the patient on a MILAGRO inhibitor. At present we will hold the patient's metoprolol. Continue the patient's IV Lasix. Once the wheezing site resolves then we will start the patient on a beta-sarina. 6. 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 Continue anti-cardiomyopathy treatment as per gold standard which is being done. 7.Coronary artery disease: History of myocardial infarction in the past: No evidence of anginal symptoms. No evidence of elevated troponin I at this admiss ion. 8. Hypertension: At present blood pressure is acceptable. 9. History of cirrhosis of the liver: Secondary to chronic alcohol abuse. 10. History of alcohol abuse and tobacco abuse disorder. Ill effects of alcohol and tobacco have been discussed with the patient tobacco cessation counseling was done earlier this admission. 11. Hyperlipidemia: Continue statins.
[2019-10-22] MEDS: GABAPENTIN 400 MG CAPSULE PO SCH ×3 (05:14→22:45)
[2019-10-22] MEDS: LEVALBUTEROL HCL NEB 1.25 MG/3 ML AMPUL NEB PRN ×2 (07:57→14:02)
[2019-10-22 09:37] LABS: ARTERIAL BLOOD H2CO3 1.69 mmol/L (1.05-1.35); ARTERIAL BLOOD HCO3 38.7 mmol/L (20-24); ARTERIAL BLOOD O2 SATURATION 96.7 % (94-98); ARTERIAL BLOOD PCO2 56.1 mmHg (35-45); ARTERIAL BLOOD PH 7.46 (7.35-7.45); ARTERIAL BLOOD PO2 85.7 mmHg (80-100); ARTERIAL BLOOD TOTAL CO2 40.5 mmol/L (23-27)
[2019-10-22 09:38] LABS: ARTERIAL BLOOD FIO2 36%
--- NOTE | 2019-10-22 10:04 | PDOC PROGRESS REPORT ---
Subjective Progress Note for:: 10/22/19 Reason For Visit: FLUID OVERLOAD,CHF EXACERBATION,ASCITES 10/22/2019 CHF, COPD exacerbation, end-stage COPD, constipation, alcoholic cirrhosis, frequent APCs, tachycardia Physical Exam Vital Signs: Temp Pulse Resp BP Pulse Ox 97.8 F 95 20 106/52 L 100 10/22/19 03:23 10/22/19 07:00 10/22/19 03:23 10/22/19 03:23 10/22/19 03:23 Intake & Output 10/21/19 10/22/19 10/23/19 06:59 06:59 06:59 Intake Total 1345 2739 Output Total 3500 2305 Balance -2155 434 Weight 70 kg 71.9 kg General appearance: PRESENT: mild distress, other - Due to oxygen drive Respiratory exam: PRESENT: decreased breath sounds Cardiovascular exam: PRESENT: RRR. ABSENT: diastolic murmur, rubs, systolic murmur Neurological exam: PRESENT: other - Sleeping but arouses easily Psychiatric exam: PRESENT: flat affect Results Laboratory Results: 10/21/19 04:41 10/21/19 18:20 10/21/19 10/22/19 18:20 09:20 Carbonic Acid 1.69 H HCO3/H2CO3 Ratio 22:1 ABG pH 7.46 H ABG pCO2 56.1 H ABG pO2 85.7 ABG HCO3 38.7 H ABG O2 Saturation 96.7 ABG Base Excess 13.0 FiO2 36% Sodium 135.4 L Potassium 4.5 Chloride 90 L Carbon Dioxide 39 H Anion Gap 6 BUN 25 H Creatinine 0.88 Est GFR ( Amer) > 60 Glucose 216 H Calcium 8.3 L Magnesium 2.1 10/15/19 10/15/19 10/18/19 10:20 12:32 10:54 Troponin I Cancelled 0.024 NT-Pro-B Natriuret Pep Cancelled 7760 H 2010 H Impressions: Abdomen Ultrasound 10/15/19 16:29 IMPRESSION: Moderate ascites. Liver appears heterogeneous the visualized portion copyright 2011 [employer]- All Rights Reserved Abdomen/Pelvis CT 10/16/19 11:29 IMPRESSION: 1. Increased size of a moderate pericardial effusion. Small bilateral pleural effusions and bibasilar atelectasis. 2. Cirrhotic hepatic morphology with moderate volume ascites, increased from prior. Anasarca. 3. No evidence of obstructive uropathy. No definitive nephrolithiasis. 4. Additional chronic findings as above. Chest X-Ray 10/18/19 06:00 IMPRESSION: Stable cardiomegaly. No acute infiltrates KUB X-Ray 10/21/19 00:00 IMPRESSION: No evidence of intestinal obstruction. Moderate formed stool throughout the colon. Assessment and Plan - Diagnosis (1) Ascites Is this a current diagnosis for this admission?: Yes (2) CHF (congestive heart failure) Is this a current diagnosis for this admission?: Yes (3) Chronic obstructive pulmonary disease with acute exacerbation Is this a current diagnosis for this admission?: Yes (4) Peripheral edema Is this a current diagnosis for this admission?: Yes (5) Shortness of breath Is this a current diagnosis for this admission?: Yes (6) Alcohol dependence Qualifiers: Substance use status: uncomplicated Qualified Code(s): F10.20 - Alcohol dependence, uncomplicated Is this a current diagnosis for this admission?: Yes (7) Fluid overload Qualifiers: Hypervolemia type: unspecified Qualified Code(s): E87.70 - Fluid overload, unspecified Is this a current diagnosis for this admission?: Yes (8) Constipation Is this a current diagnosis for this admission?: Yes (9) Abdominal pain Is this a current diagnosis for this admission?: Yes - Plan Summary Summary: 10/18/2019 Patient was admitted with shortness of breath secondary to congestive heart failure and fluid overload. Patient also had a possible diagnosis of either COPD exacerbation with bronchitis or pneumonia.. X-ray yesterday showed the possibility of opacities and/or pneumonia however chest x-ray done today, single view, shows no abnormalities. States he is feeling much better he sitting up in bed eating breakfast with no complaints. Patient is currently on a dobutamine drip dopamine drip and amiodarone drip as well. Morning patient's blood pressure is actually up to 148/84, and 112/48. Nurses were wondering about transferring the patient to ICU, I will discuss with Dr. Sandoval possibly try to start weaning him off of his drip to see if he can maintain his pressures. If not then I think that he probably should go to the ICU to be controlled with his drips. Patient's labs are noted with a chloride going down to 93 CO2 going up to 36 and BNP from several days ago 7760. Patient currently on Lasix 40 mg IV every 12 and Solu-Medrol 40 mg every 8 as well as Rocephin. Patient states he lives at home with 2 roommates that can assist in his care 10/19/2019 Afebrile, heart rate is anywhere from 88-120.. Blood pressure approximately 120/50. Patient is requiring 2 to 4 L of nasal cannula oxygen BNP has come down to 2009 from 7760. Patient does not complain of any chest pain or shortness of breath. Patient's dopamine has been decreased to 2.5 mcg's. Patient's dobutamine is at 5 mcg's. Patient is still on amiodarone drip at 16.6 mL's per hour. Patient is still on Rocephin for presumed bronchitis. Going to wean back patient Solu-Medrol today to every 12 hours. Continue the Lasix 40 mg IV every 12 hours for another 24 hours, then decrease this to 20 mg every 12 hours. Patient appears stable 10/20/2019 Heart rate appears to be in either the 80s or 90s appears to have stabilized since last night around 1800 hrs. patient had been tachycardic up until then but since then has had a normal rate. Pressures are very stable at approximately 120/60 Patient has been demanding to drink sodas even though he is on a fluid restriction. Patient been very hostile and aggressive with the nursing staff. Patient reportedly vomited this morning and there is no recording of any recent bowel movements. We will get a KUB this morning and placing back at n.p.o. until the KUB has been seen. Magnesium is low and will give mag riders. Recheck BNP and electrolytes this morning. Keep patient n.p.o. till etiology determined concerning vomiting 10/21/2019 Patient agreed to fleets enema last night and had 2 large bowel movements following the fleets enema. May be why patient's abdomen is softer today, less distended. Surgery was consulted yesterday but they did not see the patient yesterday nor today. She will continue on a clear liquid diet I have ordered another KUB to assess his stool content. If KUB looks better then will advance diet as tolerated Cardiology is working with patient concerning his arrhythmias and hypotension Pulse is regular and 83 blood pressure 104/62. Patient seems to be maintaining his systolic above 100, and diastolic is around 54-62 Will decrease Lasix today to 20 mg every 12 hours Will decrease Solu-Medrol to 40 mg daily CBC is stable. CO2 was slightly elevated this morning we will repeat late this afternoon as well as repeat magnesium level today. I have discussed patient at great length with nursing and cardiology 10/22/2019 Temperature 97.8 pulse 78 and regular blood pressure 106/52 O2 sat 100% on 5 L. Patient appears to be retaining CO2. PCO2 is 56 PO2 is 85 bicarb 38 O2 sat 96%, respiratory therapy has cut his oxygen down to 4 L, try to wean him down to 3 L in another hour. Patient will not wear BiPAP All other labs are normal Patient appears to be having no further episodes of tachycardia. Patient seems to be having normal bowel movements now on a daily basis. Patient does not have oxygen at home and I have asked discharge planning to start setting this up, as he will need to be on probably 2 L pretty much full-time - Time Time Spent with patient: 25-34 minutes
[2019-10-22] MEDS: FOLIC ACID 1 MG TABLET PO SCH (10:16)
[2019-10-22] MEDS: METHYLPREDNISOLONE INJ 40 MG/1 ML SDV IV SCH (10:16)
[2019-10-22] MEDS: LISINOPRIL 5 MG TABLET PO SCH ×2 (10:16→22:45)
[2019-10-22] MEDS: HEPARIN SOD (PORCINE) 5,000 UNIT/ML 1 ML VIAL SUBCUT SCH ×2 (10:17→22:44)
[2019-10-22] MEDS: MIDODRINE HCL 5 MG TABLET PO SCH ×3 (10:17→19:24)
[2019-10-22] MEDS: CEFTRIAXONE 1 GM/D5W RTU 1 GM/50 ML RTUPB IV SCH (10:25)
[2019-10-22] MEDS ORDERED: METOPROLOL SUCCINATE 25 MG TAB.SR.24H PO ONE ×2 (12:41→15:05)
[2019-10-22] MEDS: POTASSIUM CHLORIDE 10 MEQ TABLET.ER PO SCH ×2 (15:02→22:44)
--- NOTE | 2019-10-22 16:38 | Progress Note ---
Provider Note Provider Note: Patient's nurse, Crista Webb, and I talked to the patient about several things today. Patient is getting frustrated and states he wants to go home but knows it is not the best thing for him. Patient for the last 48 hours has been doing more coughing and we feel this may be due to patient aspirating some of his food contents. Patient disagrees and states that he wants to eat even though he may aspirate and develop pneumonia or respiratory problems.. Patient is adamant and will not take no for an answer, 4 patient's diet is advanced and is fully aware and competent to make this decision. I believe patient has a eating disorder, as witnessed by the fact that patient has been eating multiple meals, crackers, pudding, pretty much anything he can get his hands on. Have ordered a modified barium swallow for Thursday morning. I put an order in for patient to have home O2. I will try to discharge the patient to home on Thursday. Patient is becoming more belligerent to the nursing staff.
[2019-10-22] MEDS: TRAMADOL HCL 50 MG TABLET PO PRN (19:26)
--- NOTE | 2019-10-22 22:16 | Progress Note ---
Provider Note Provider Note: CARDIOLOGY PROGRESS NOTE by Dr. Lorenza Sandoval on 10/22/2019. OBJECTIVE: The patient states that his shortness of breath is resolved and he has no further shortness of breath. He has no PND orthopnea. He just has slight cough which is nonproductive. The patient is not wheezing anymore. There is no chest pain or discomfort. There is no atrial or ventricular arrhythmia seen on the monitor. There is no pedal edema at present. The patient is very noncompliant with fluids. Also he is very at times abusive to the nurses. And very uncooperative. Hence patient is very difficult to treat. I have explained to them that for any success of any treatment/management of the patient's disease the cooperation of the patient is most important. The patient is very anxious to go home. Will change the patient's IV Lasix to p.o. Lasix 40 mg p.o. daily. We will also start the patient on a Toprol-XL 25 mg p.o. daily. Continue the patient's MILAGRO inhibitor. Hopefully if the patient remains stable will discharge the patient home tomorrow. He states he had a normal bowel movement today. PHYSICAL EXAMINATION: The patient is chronically ill. She appears to be malnourished. Selected Entries 10/22/19 10/22/19 12:24 16:25 Temperature 97.7 F 97.5 F Temperature Oral Axillary Source Pulse Rate 90 90 Respiratory 18 18 Rate Blood Pressure 119/60 121/60 Blood Pressure 79 80 Mean BP Location Left Arm Left Arm BP Position Supine Supine O2 Sat by Pulse 98 100 Oximetry Oxygen Flow 4.00 4.00 Rate Oxygen Delivery Nasal Cannula Nasal Cannula Method HEAD: Is atraumatic normocephalic. EYES: Pupils are equal round regular reactive to light accommodation. Extraocular movements are normal. There is no conjunctival pallor. There is no scleral icterus. EARS: Tympanic membranes are intact. External auditory canals are clear. NOSE: There is no deviated nasal septum. There is no inflammation of the nasal mucous membrane. MOUTH: Mucous noted in the mouth are moist tongue is moist. There is no ulcers. There is no bleeding from the gums. THROAT: There is no redness of the oropharynx. There is no exudates. SKIN: There is no skin rashes or skin lesions. There is no particular ecchymosis. NECK: Is supple. There is JVD present carotids are equal there is no bruits. There is no lymphadenopathy. There is no goiter. There is mild accessory muscle respiration use. Trachea central LUNGS: There is diminished air entry and prolonged expiration. On percussion there is hyperresonance. He has very much diminished and scattered rhonchi and few end expiratory wheezing. He has dry crackles in both the bases, but no without fine rales of CHF. HEART: S1-S2 is heard. S1 is of normal intensity. There is no S3 gallop. There is no S4 gallop. There is systolic murmur left sternal border and the apex there is no rub. ABDOMEN: Is distended. There is tenderness just above and to the left of his midabdomen. Bowel sounds are slightly increased. There is no rebound guarding or rigidity.. EXTREMITIES: Femorals are deep. Femorals are diminished. Leg pulses are diminished. There is 1 + bilateral pedal edema present. There is no DVT. There is no cellulitis. There is no calf tenderness. There is no sinus or clubbing. Capillary refill is normal. INTERVENTIONAL CARDIOLOGIST: The patient is conscious awake alert oriented x3 with no focal deficits. PSYCHIATRIC: The patient judgment insight are intact, and his affect is normal. The patient's 24-hour intake is 2739 mL. Output is 2305. Labs- All tests 24 hr 10/22/19 09:20 Carbonic Acid 1.69 H HCO3/H2CO3 Ratio 22:1 ABG pH 7.46 H ABG pCO2 56.1 H ABG pO2 85.7 ABG HCO3 38.7 H ABG Total CO2 40.5 H ABG O2 Saturation 96.7 ABG Base Excess 13.0 FiO2 36% Chest X-Ray 10/15/19 09:31 IMPRESSION: Cardiac enlargement with vascular congestion. Left basilar opacity and possible left effusion. Abdomen Ultrasound 10/15/19 16:29 IMPRESSION: Moderate ascites. Liver appears heterogeneous the visualized portion copyright 2011 [employer]- All Rights Reserved Abdomen/Pelvis CT 10/16/19 11:29 IMPRESSION: 1. Increased size of a moderate pericardial effusion. Small bilateral pleural effusions and bibasilar atelectasis. 2. Cirrhotic hepatic morphology with moderate volume ascites, increased from prior. Anasarca. 3. No evidence of obstructive uropathy. No definitive nephrolithiasis. 4. Additional chronic findings as above. Chest X-Ray 10/16/19 16:27 IMPRESSION: Lines and tubes as above. Unchanged retrocardiac airspace opacities and cardiomegaly. Chest X-Ray 10/17/19 08:25 IMPRESSION: Stable enlarged cardiac silhouette with unchanged left retrocardiac opacities. Chest X-Ray 10/18/19 06:00 IMPRESSION: Stable cardiomegaly. No acute infiltrates KUB X-Ray 10/20/19 00:00 IMPRESSION: Massive constipation KUB X-Ray 10/21/19 00:00 IMPRESSION: No evidence of intestinal obstruction. Moderate formed stool throughout the colon. IMPRESSION/RECOMMENDATION: 1. Abdominal pain, with nausea and vomiting. This is completely resolved. 2. Acute on chronic respiratory failure: This is a combination of acute exacerbation of COPD, pneumonia, bronchitis, and congestive heart failure. 3. Acute exacerbation of COPD.: Continue antibiotics continue respiratory treatments and oxygen. We will start the patient on steroids. 4. Tachycardia appears to be sinus tachycardia with frequent APCs. We will start the patient on amiodarone drip. Continue the patient's dobutamine and Dobutrex. Continue IV Lasix. Restrict the patient's fluids. 5. Acute on chronic systolic heart failure: The patient still is in significant heart failure with a combination of acute exacerbation of COPD. The heart failure is due to acute on chronic systolic heart failure. Patient at present is on 5 mcg/kg/min of dobutamine and 5 mcg/kg/min of dopamine. He is also on IV amiodarone drip which seems to control his heart rate much better. We will decrease the patient's dopamine. Later we will need to start stop the patient's amiodarone when the patient is off the pressors and start the patient on Toprol- XL. We will slowly start the patient on a MILAGRO inhibitor. At present we will hold the patient's metoprolol. Continue the patient's IV Lasix. Once the wheezing site resolves then we will start the patient on a beta-sarina. 6. 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 Continue anti-cardiomyopathy treatment as per gold standard which is being done. 7.Coronary artery disease: History of myocardial infarction in the past: No evidence of anginal symptoms. No evidence of elevated troponin I at this admission. 8. Hypertension: At present blood pressure is acceptable. 9. History of cirrhosis of the liver: Secondary to chronic alcohol abuse. 10. History of alcohol abuse and tobacco abuse disorder. Ill effects of alcohol and tobacco have been discussed with the patient tobacco cessation cou nseling was done earlier this admission. 11. Hyperlipidemia: Continue statins. Medications reviewed. Medications adjusted, and adjusted. Medical history making is of high complexity. Medical regimen and management plan discussed with attending provider on the case. 45 minutes spent with patient more than 50% of time spent in direct patient care
[2019-10-23] MEDS: GABAPENTIN 400 MG CAPSULE PO SCH ×3 (07:38→22:12)
[2019-10-23] MEDS: LEVALBUTEROL HCL NEB 1.25 MG/3 ML AMPUL NEB PRN ×2 (08:05→14:01)
[2019-10-23] MEDS ORDERED: METOPROLOL SUCCINATE 50 MG TAB.SR.24H PO SCH ×2 (10:00→22:00)
[2019-10-23] MEDS: HEPARIN SOD (PORCINE) 5,000 UNIT/ML 1 ML VIAL SUBCUT SCH ×2 (10:15→22:11)
[2019-10-23] MEDS: POTASSIUM CHLORIDE 10 MEQ TABLET.ER PO SCH ×2 (10:16→22:12)
[2019-10-23] MEDS: MIDODRINE HCL 5 MG TABLET PO SCH ×2 (10:21→18:58)
[2019-10-23] MEDS: METHYLPREDNISOLONE INJ 40 MG/1 ML SDV IV SCH (10:21)
[2019-10-23] MEDS: FOLIC ACID 1 MG TABLET PO SCH (10:21)
[2019-10-23] MEDS: LISINOPRIL 5 MG TABLET PO SCH ×2 (10:22→22:12)
[2019-10-23] MEDS: FUROSEMIDE 40 MG TABLET PO SCH (10:22)
--- NOTE | 2019-10-23 11:23 | PDOC PROGRESS REPORT ---
Subjective Progress Note for:: 10/23/19 Reason For Visit: FLUID OVERLOAD,CHF EXACERBATION,ASCITES 10/23/2019 CHF, abdominal pain, ascites, stage COPD, alcoholic cirrhosis, eating disorder Physical Exam Vital Signs: Temp Pulse Resp BP Pulse Ox 97.9 F 81 16 119/64 98 10/23/19 03:57 10/23/19 08:05 10/23/19 08:05 10/23/19 03:57 10/23/19 08:05 Intake & Output 10/22/19 10/23/19 10/24/19 06:59 06:59 06:59 Intake Total 2739 2240 Output Total 2305 1735 Balance 434 505 Weight 71.9 kg 74.2 kg General appearance: PRESENT: no acute distress, other - Patient was asleep and was easily arousable Respiratory exam: PRESENT: clear to auscultation rossy. ABSENT: rales, rhonchi, wheezes Cardiovascular exam: PRESENT: RRR. ABSENT: diastolic murmur, rubs, systolic murmur GI/Abdominal exam: PRESENT: soft Neurological exam: PRESENT: alert, awake, oriented to person, oriented to place, oriented to time, oriented to situation, CN II-XII grossly intact. ABSENT: motor sensory deficit Psychiatric exam: PRESENT: anxious, other - Patient is asking to go home Results Laboratory Results: 10/21/19 04:41 10/21/19 18:20 10/15/19 10/15/19 10/18/19 10:20 12:32 10:54 Troponin I Cancelled 0.024 NT-Pro-B Natriuret Pep Cancelled 7760 H 2010 H Impressions: Abdomen Ultrasound 10/15/19 16:29 IMPRESSION: Moderate ascites. Liver appears heterogeneous the visualized portion copyright 2011 [employer]- All Rights Reserved Abdomen/Pelvis CT 10/16/19 11:29 IMPRESSION: 1. Increased size of a moderate pericardial effusion. Small bilateral pleural effusions and bibasilar atelectasis. 2. Cirrhotic hepatic morphology with moderate volume ascites, increased from prior. Anasarca. 3. No evidence of obstructive uropathy. No definitive nephrolithiasis. 4. Additional chronic findings as above. Chest X-Ray 10/18/19 06:00 IMPRESSION: Stable cardiomegaly. No acute infiltrates KUB X-Ray 10/21/19 00:00 IMPRESSION: No evidence of intestinal obstruction. Moderate formed stool throughout the colon. Assessment and Plan - Diagnosis (1) Ascites Is this a current diagnosis for this admission?: Yes (2) CHF (congestive heart failure) Is this a current diagnosis for this admission?: Yes (3) Chronic obstructive pulmonary disease with acute exacerbation Is this a current diagnosis for this admission?: Yes (4) Peripheral edema Is this a current diagnosis for this admission?: Yes (5) Shortness of breath Is this a current diagnosis for this admission?: Yes (6) Alcohol dependence Qualifiers: Substance use status: uncomplicated Qualified Code(s): F10.20 - Alcohol dependence, uncomplicated Is this a current diagnosis for this admission?: Yes (7) Fluid overload Qualifiers: Hypervolemia type: unspecified Qualified Code(s): E87.70 - Fluid overload, unspecified Is this a current diagnosis for this admission?: Yes (8) Constipation Is this a current diagnosis for this admission?: Yes (9) Abdominal pain Is this a current diagnosis for this admission?: Yes - Plan Summary Summary: 10/18/2019 Patient was admitted with shortness of breath secondary to congestive heart failure and fluid overload. Patient also had a possible diagnosis of either COPD exacerbation with bronchitis or pneumonia.. X-ray yesterday showed the possibility of opacities and/or pneumonia however chest x-ray done today, single view, shows no abnormalities. States he is feeling much better he sitting up in bed eating breakfast with no complaints. Patient is currently on a dobutamine drip dopamine drip and amiodarone drip as well. Morning patient's blood pressure is actually up to 148/84, and 112/48. Nurses were wondering about transferring the patient to ICU, I will discuss with Dr. Sandoval possibly try to start weaning him off of his drip to see if he can maintain his pressures. If not then I think that he probably should go to the ICU to be controlled with his drips. Patient's labs are noted with a chloride going down to 93 CO2 going up to 36 and BNP from several days ago 7760. Patient currently on Lasix 40 mg IV every 12 and Solu-Medrol 40 mg every 8 as well as Rocephin. Patient states he lives at home with 2 roommates that can assist in his care 10/19/2019 Afebrile, heart rate is anywhere from 88-120.. Blood pressure approximately 120/50. Patient is requiring 2 to 4 L of nasal cannula oxygen BNP has come down to 2009 from 7760. Patient does not complain of any chest pain or shortness of breath. Patient's dopamine has been decreased to 2.5 mcg's. Patient's dobutamine is at 5 mcg's. Patient is still on amiodarone drip at 16.6 mL's per hour. Patient is still on Rocephin for presumed bronchitis. Going to wean back patient Solu-Medrol today to every 12 hours. Continue the Lasix 40 mg IV every 12 hours for another 24 hours, then decrease this to 20 mg every 12 hours. Patient appears stable 10/20/2019 Heart rate appears to be in either the 80s or 90s appears to have stabilized since last night around 1800 hrs. patient had been tachycardic up until then but since then has had a normal rate. Pressures are very stable at approximately 120/60 Patient has been demanding to drink sodas even though he is on a fluid restriction. Patient been very hostile and aggressive with the nursing staff. Patient reportedly vomited this morning and there is no recording of any recent bowel movements. We will get a KUB this morning and placing back at n.p.o. until the KUB has been seen. Magnesium is low and will give mag riders. Recheck BNP and electrolytes this morning. Keep patient n.p.o. till etiology determined concerning vomiting 10/21/2019 Patient agreed to fleets enema last night and had 2 large bowel movements following the fleets enema. May be why patient's abdomen is softer today, less distended. Surgery was consulted yesterday but they did not see the patient yesterday nor today. She will continue on a clear liquid diet I have ordered another KUB to assess his stool content. If KUB looks better then will advance diet as tolerated Cardiology is working with patient concerning his arrhythmias and hypotension Pulse is regular and 83 blood pressure 104/62. Patient seems to be maintaining his systolic above 100, and diastolic is around 54-62 Will decrease Lasix today to 20 mg every 12 hours Will decrease Solu-Medrol to 40 mg daily CBC is stable. CO2 was slightly elevated this morning we will repeat late this afternoon as well as repeat magnesium level today. I have discussed patient at great length with nursing and cardiology 10/22/2019 Temperature 97.8 pulse 78 and regular blood pressure 106/52 O2 sat 100% on 5 L. Patient appears to be retaining CO2. PCO2 is 56 PO2 is 85 bicarb 38 O2 sat 96%, respiratory therapy has cut his oxygen down to 4 L, try to wean him down to 3 L in another hour. Patient will not wear BiPAP All other labs are normal Patient appears to be having no further episodes of tachycardia. Patient seems to be having normal bowel movements now on a daily basis. Patient does not have oxygen at home and I have asked discharge planning to start setting this up, as he will need to be on probably 2 L pretty much full-time 10/23/2019 97.9, pulse 41 and regular, blood pressure 119/64, O2 sat between 96 100% on oxygen. I put an order in the chart for patient to go no higher than 3 L oxygen. Plan is to get a modified barium swallow tomorrow , have oxygen set up at home and discharge him to home tomorrow. We will discharge him home on the medicines he is taking now. No further labs are indicated I have discussed this with Dr. Long as well as nursing - Time Time Spent with patient: 25-34 minutes
[2019-10-23] MEDS ORDERED: METOPROLOL SUCCINATE 25 MG TAB.SR.24H PO SCH (14:00)
[2019-10-23] MEDS: PANTOPRAZOLE SODIUM 40 MG TABLET.DR PO SCH (18:59)
--- NOTE | 2019-10-23 20:15 | Progress Note ---
Provider Note Provider Note: CARDIOLOGY PROGRESS NOTE by Dr. Lorenza Sandoval on 10/23/2019. SUBJECTIVE: The patient denies any chest pain or discomfort. There is no shortness of breath. There is no cough or wheezing. There is no PND orthopnea or leg edema. There is no palpitations. There is no atrial ventricular arrhythmia seen on the monitor. The patient is having home oxygen set up and will be discharged home tomorrow. PHYSICAL EXAMINATION: The patient is chronically ill and appears malnourished. Selected Entries 10/23/19 12:07 Temperature 97.8 F Temperature Axillary Source Pulse Rate 75 Respiratory 18 Rate Blood Pressure 103/58 L Blood Pressure 73 Mean BP Location Left Arm BP Position Sitting O2 Sat by Pulse 99 Oximetry Oxygen Flow 3.00 Rate Oxygen Delivery Nasal Cannula Method HEAD: Is atraumatic normocephalic. EYES: Pupils are equal round regular reactive to light accommodation. Extraocular movements are normal. There is no conjunctival pallor. There is no scleral icterus. EARS: Tympanic membranes are intact. External auditory canals are clear. NOSE: There is no deviated nasal septum. There is no inflammation of the nasal mucous membrane. MOUTH: Mucous noted in the mouth are moist tongue is moist. There is no ulcers. There is no bleeding from the gums. THROAT: There is no redness of the oropharynx. There is no exudates. SKIN: There is no skin rashes or skin lesions. There is no particular ecchymosis. NECK: Is supple. There is JVD present carotids are equal there is no bruits. There is no lymphadenopathy. There is no goiter. There is mild accessory muscle respiration use. Trachea central LUNGS: There is diminished air entry and prolonged expiration. On percussion there is hyperresonance. He has very much diminished and scattered rhonchi and few end expiratory wheezing. He has dry crackles in both the bases, but no without fine rales of CHF. HEART: S1-S2 is heard. S1 is of normal intensity. There is no S3 gallop. There is no S4 gallop. There is systolic murmur left sternal border and the apex there is no rub. ABDOMEN: Is distended. There is tenderness just above and to the left of his midabdomen. Bowel sounds are slightly increased. There is no rebound guarding or rigidity.. EXTREMITIES: Femorals are deep. Femorals are diminished. Leg pulses are diminished. There is 1 + bilateral pedal edema present. There is no DVT. There is no cellulitis. There is no calf tenderness. There is no sinus or clubbing. Capillary refill is normal. TRANSITION RN: The patient is conscious awake alert oriented x3 with no focal deficits. PSYCHIATRIC: The patient judgment insight are intact, and his affect is normal. The patient's 24-hour intake is 2240 mL. Output is 1735. Chest X-Ray 10/15/19 09:31 IMPRESSION: Cardiac enlargement with vascular congestion. Left basilar opacity and possible left effusion. Abdomen Ultrasound 10/15/19 16:29 IMPRESSION: Moderate ascites. Liver appears heterogeneous the visualized portion copyright 2011 [employer]- All Rights Reserved Abdomen/Pelvis CT 10/16/19 11:29 IMPRESSION: 1. Increased size of a moderate pericardial effusion. Small bilateral pleural effusions and bibasilar atelectasis. 2. Cirrhotic hepatic morphology with moderate volume ascites, increased from prior. Anasarca. 3. No evidence of obstructive uropathy. No definitive nephrolithiasis. 4. Additional chronic findings as above. Chest X-Ray 10/16/19 16:27 IMPRESSION: Lines and tubes as above. Unchanged retrocardiac airspace opacities and cardiomegaly. Chest X-Ray 10/17/19 08:25 IMPRESSION: Stable enlarged cardiac silhouette with unchanged left retrocardiac opacities. Chest X-Ray 10/18/19 06:00 IMPRESSION: Stable cardiomegaly. No acute infiltrates KUB X-Ray 10/20/19 00:00 IMPRESSION: Massive constipation KUB X-Ray 10/21/19 00:00 IMPRESSION: No evidence of intestinal obstruction. Moderate formed stool throughout the colon. IMPRESSION/RECOMMENDATION: 1. Abdominal pain, with nausea and vomiting. This is completely resolved. 2. Acute on chronic respiratory failure: This is a combination of acute exacerbation of COPD, pneumonia, bronchitis, and congestive heart failure. This is resolved. The patient is back to baseline. 3. Acute exacerbation of COPD.: Continue antibiotics continue respiratory treatments and oxygen. We will start the patient on steroids. 4. Tachycardia appears to be sinus tachycardia with frequent APCs. We will start the patient on amiodarone drip. Continue the patient's dobutamine and Dobutrex. Continue IV Lasix. Restrict the patient's fluids. 5. Acute on chronic systolic heart failure: The patient at present is well compensated. The patient is tolerating his MILAGRO inhibitor and Toprol-XL. We will increase the patient's Toprol-XL to twice a day. Continue the patient midodrine. 6. 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 Continue anti-cardiomyopathy treatment as per gold standard which is being done. 7.Coronary artery disease: History of myocardial infarction in the past: No evidence of anginal symptoms. No evidence of elevated troponin I at this admission. 8. Hypertension: At present blood pressure is acceptable. 9. History of cirrhosis of the liver: Secondary to chronic alcohol abuse. 10. History of alcohol abuse and tobacco abuse disorder. Ill effects of alcohol and tobacco have been discussed with the patient tobacco cessation counseling was done earlier this admission. 11. Hyperlipidemia: Continue statins. Medications reviewed. Medications adjusted, and adjusted. Medical decision making is of high complexity In view of increasing the patient's beta-sarina dosage.. Medical regimen and management plan discussed with attending provider on the case. 45 minutes spent with patient more than 50% of time spent in direct patient care cardiac status is stable. Will sign off and follow the patient in the office. Thank you
[2019-10-23] MEDS: METOPROLOL SUCCINATE 25 MG TAB.SR.24H PO SCH (22:13)
[2019-10-24] MEDS: PANTOPRAZOLE SODIUM 40 MG TABLET.DR PO SCH (06:56)
[2019-10-24] MEDS: GABAPENTIN 400 MG CAPSULE PO SCH ×2 (06:56→13:14)
[2019-10-24] MEDS: LEVALBUTEROL HCL NEB 1.25 MG/3 ML AMPUL NEB PRN ×2 (08:21→13:56)
[2019-10-24] MEDS: FOLIC ACID 1 MG TABLET PO SCH (09:08)
[2019-10-24] MEDS: MIDODRINE HCL 5 MG TABLET PO SCH ×2 (09:08→13:14)
[2019-10-24] MEDS: HEPARIN SOD (PORCINE) 5,000 UNIT/ML 1 ML VIAL SUBCUT SCH (09:08)
[2019-10-24] MEDS: FUROSEMIDE 40 MG TABLET PO SCH (09:08)
[2019-10-24] MEDS: METHYLPREDNISOLONE INJ 40 MG/1 ML SDV IV SCH (09:08)
[2019-10-24] MEDS: LISINOPRIL 5 MG TABLET PO SCH (09:08)
[2019-10-24] MEDS: METOPROLOL SUCCINATE 25 MG TAB.SR.24H PO SCH (09:08)
[2019-10-24] MEDS: POTASSIUM CHLORIDE 10 MEQ TABLET.ER PO SCH (09:08)
--- NOTE | 2019-10-24 15:02 | PDOC DISCHARGE SUMMARY ---
Impression - Admit/DC Date/PCP Admission Date/Primary Care Provider: 10/15/19 16:[facility] Discharge Date: 10/24/19 - Discharge Diagnosis (1) Ascites Is this a current diagnosis for this admission?: Yes (2) CHF (congestive heart failure) Is this a current diagnosis for this admission?: Yes (3) Chronic obstructive pulmonary disease with acute exacerbation Is this a current diagnosis for this admission?: Yes (4) Peripheral edema Is this a current diagnosis for this admission?: Yes (5) Shortness of breath Is this a current diagnosis for this admission?: Yes (6) Alcohol dependence Is this a current diagnosis for this admission?: Yes (7) Fluid overload Is this a current diagnosis for this admission?: Yes (8) Constipation Is this a current diagnosis for this admission?: Yes (9) Abdominal pain Is this a current diagnosis for this admission?: Yes (10) Dependence on supplemental oxygen Is this a current diagnosis for this admission?: Yes (11) Cirrhosis Is this a current diagnosis for this admission?: Yes (12) Hypertension Is this a current diagnosis for this admission?: Yes - Assessment Summary: 10/18/2019 Patient was admitted with shortness of breath secondary to congestive heart failure and fluid overload. Patient also had a possible diagnosis of either COPD exacerbation with bronchitis or pneumonia.. X-ray yesterday showed the possibility of opacities and/or pneumonia however chest x-ray done today, single view, shows no abnormalities. States he is feeling much better he sitting up in bed eating breakfast with no complaints. Patient is currently on a dobutamine drip dopamine drip and amiodarone drip as well. Morning patient's blood pressure is actually up to 148/84, and 112/48. Nurses were wondering about transferring the patient to ICU, I will discuss with Dr. Sandoval possibly try to start weaning him off of his drip to see if he can maintain his pressures. If not then I think that he probably should go to the ICU to be controlled with his drips. Patient's labs are noted with a chloride going down to 93 CO2 going up to 36 and BNP from several days ago 7760. Patient currently on Lasix 40 mg IV every 12 and Solu-Medrol 40 mg every 8 as well as Rocephin. Patient states he lives at home with 2 roommates that can assist in his care 10/19/2019 Afebrile, heart rate is anywhere from 88-120.. Blood pressure approximately 120/50. Patient is requiring 2 to 4 L of nasal cannula oxygen BNP has come down to 2009 from 7760. Patient does not complain of any chest pain or shortness of breath. Patient's dopamine has been decreased to 2.5 mcg's. Patient's dobutamine is at 5 mcg's. Patient is still on amiodarone drip at 16.6 mL's per hour. Patient is still on Rocephin for presumed bronchitis. Going to wean back patient Solu-Medrol today to every 12 hours. Continue the Lasix 40 mg IV every 12 hours for another 24 hours, then decrease this to 20 mg every 12 hours. Patient appears stable 10/20/2019 Heart rate appears to be in either the 80s or 90s appears to have stabilized since last night around 1800 hrs. patient had been tachycardic up until then but since then has had a normal rate. Pressures are very stable at approximately 120/60 Patient has been demanding to drink sodas even though he is on a fluid restriction. Patient been very hostile and aggressive with the nursing staff. Patient reportedly vomited this morning and there is no recording of any recent bowel movements. We will get a KUB this morning and placing back at n.p.o. until the KUB has been seen. Magnesium is low and will give mag riders. Recheck BNP and electrolytes this morning. Keep patient n.p.o. till etiology determined concerning vomiting 10/21/2019 Patient agreed to fleets enema last night and had 2 large bowel movements following the fleets enema. May be why patient's abdomen is softer today, less distended. Surgery was consulted yesterday but they did not see the patient yesterday nor today. She will continue on a clear liquid diet I have ordered another KUB to assess his stool content. If KUB looks better then will advance diet as tolerated Cardiology is working with patient concerning his arrhythmias and hypotension Pulse is regular and 83 blood pressure 104/62. Patient seems to be maintaining his systolic above 100, and diastolic is around 54-62 Will decrease Lasix today to 20 mg every 12 hours Will decrease Solu-Medrol to 40 mg daily CBC is stable. CO2 was slightly elevated this morning we will repeat late this afternoon as well as repeat magnesium level today. I have discussed patient at great length with nursing and cardiology 10/22/2019 Temperature 97.8 pulse 78 and regular blood pressure 106/52 O2 sat 100% on 5 L. Patient appears to be retaining CO2. PCO2 is 56 PO2 is 85 bicarb 38 O2 sat 96%, respiratory therapy has cut his oxygen down to 4 L, try to wean him down to 3 L in another hour. Patient will not wear BiPAP All other labs are normal Patient appears to be having no further episodes of tachycardia. Patient seems to be having normal bowel movements now on a daily basis. Patient does not have oxygen at home and I have asked discharge planning to start setting this up, as he will need to be on probably 2 L pretty much full-time 10/23/2019 97.9, pulse 41 and regular, blood pressure 119/64, O2 sat between 96 100% on oxygen. I put an order in the chart for patient to go no higher than 3 L oxygen. Plan is to get a modified barium swallow tomorrow , have oxygen set up at home and discharge him to home tomorrow. We will discharge him home on the medicines he is taking now. No further labs are indicated I have discussed this with Dr. Sandoval as well as nursing 10/24/2019 Unfortunately we were not able to get a swallowing study done this morning prior to discharge however if patient continues to have problems he can have this done as an outpatient through his primary care provider. She has no obvious signs of aspiration, though he did tell the nurse he was having difficulty swallowing, however this was only so he could obtain some pudding to eat. Patient continues to require oxygen at a minimum of 2 L to maintain saturations above 94%, I do not think this will change or improve Patient has been most difficult throughout his hospitalization. Patient has been very aggressive and rude to the hospital staff, demanding for the simplest of things. Cursing on a daily basis at the staff. Patient was admitted on October 15, 2019 for the last 3 weeks having dysuria and urgency frequency. Also shortness of breath. Patient had bipedal edema and abdominal distention. Wrist x-ray on admission showed pulmonary congestion. Patient had a internal jugular line placed by surgery on 10/16/2019 IV access. Additionally the patient "accidentally" pulled this out last night. Patient was seen by cardiology in consultation to 10/16/2019 4 acute on chronic systolic heart failure and acute exacerbation of COPD Dr. Sandoval recommended continuing antibiotics continuing oxygen, starting the patient on dobutamine drip and adding dopamine as well On 10/20/2019 the patient's dobutamine was weaned and discontinued. The dopamine was attempted to be discontinued but the patient developed hypotension and it had to be restarted. Patient had also been placed on amiodarone drip but that was discontinued as well on October 20. On the patient started complaining of abdominal pain and became distended. KUB was performed showing a large amount of stool. Patient was very much against being n.p.o. and having enemas however he reluctantly consent consented to that, following several bowel movements the patient's abdomen was no longer painful and his diet was resumed clear liquids and advance as tolerated. Patient also was put back on his MILAGRO inhibitor and tolerated that well. Patient will go home on 40 mg of Lasix daily also Toprol XL 25 mg daily also patient's MILAGRO inhibitor. Will also need oxygen at home the setting being no higher than 3 L Final diagnosis ascites, CHF, COPD with acute exacerbation, peripheral edema, shortness of breath, alcohol dependency, fluid overload, constipation, abdominal pain, bronchitis, cardiomyopathy, hypertension, cirrhosis of the liver - Additional Information Resuscitation Status: Do Not Resuscitate Referrals: [facility] [Primary [facility]] - Follow up as needed (patient will have to schedule. [place] does not allow anyone but the patient to make appointment.) Prescriptions: Potassium Chloride [Klor-Con 10 Meq Tablet ER] 10 meq PO Q12 30 Days #60 tablet.er Furosemide [Lasix 40 mg Tablet] 40 mg PO DAILY 30 Days #30 tablet Methylprednisolone [Medrol Dosepack (4 mg/Tab) 21 Tab/Dosepak] 4 mg PO ASDIR PRN #21 tab.ds.pk PRN Reason: Lisinopril [Prinivil 5 mg Tablet] 2.5 mg PO Q12 30 Days #30 tablet Midodrine HCl [Proamatine 5 mg Tablet] 5 mg PO TID 30 Days #90 tablet Metoprolol Succinate [Toprol Xl 25 mg Tab.sr] 25 mg PO Q12 30 Days #30 tab.sr.24h Home Medications: Albuterol Sulfate [Proair HFA Inhalation Aerosol 8.5 gm MDI] 2 puff IH ASDIR PRN 10/16/19 Budesonide/Formoterol Fumarate [Symbicort HFA 160-4.5 mcg Inhaler 6 gm] 2 puff IH BID 10/16/19 Folic Acid [Folvite 1 mg Tablet] 1 mg PO DAILY 10/16/19 Gabapentin [Neurontin 300 mg Capsule] 1,200 mg PO Q8 10/16/19 Ketoconazole 1 applic TOP TIDP PRN 10/16/19 Tramadol HCl [Ultram 50 mg Tablet] 100 mg PO Q8HP PRN 10/16/19 Furosemide [Lasix 40 mg Tablet] 40 mg PO DAILY 30 Days #30 tablet 10/24/19 Lisinopril [Prinivil 5 mg Tablet] 2.5 mg PO Q12 30 Days #30 tablet 10/24/19 Methylprednisolone [Medrol Dosepack (4 mg/Tab) 21 Tab/Dosepak] 4 mg PO ASDIR PRN #21 tab.ds.pk 10/24/19 Metoprolol Succinate [Toprol Xl 25 mg Tab.sr] 25 mg PO Q12 30 Days #30 tab.sr.24h 10/24/19 Midodrine HCl [Proamatine 5 mg Tablet] 5 mg PO TID 30 Days #90 tablet 10/24/19 Potassium Chloride [Klor-Con 10 Meq Tablet ER] 10 meq PO Q12 30 Days #60 tablet.er 10/24/19 History of Present Illiness History of Present Illness: DURAN TELLES is a 69 year old male Physical Exam Vital Signs: Temp Pulse Resp BP Pulse Ox 97.2 F 72 16 110/82 99 10/24/19 07:37 10/24/19 08:21 10/24/19 08:21 10/24/19 07:37 10/24/19 08:21 Intake & Output 10/23/19 10/24/19 10/25/19 06:59 06:59 06:59 Intake Total 2240 592 Output Total 2907 5845 Balance 505 -1083 Weight 74.2 kg 73.5 kg Results Laboratory Results: WBC 9.0 10^3/uL (4.0-10.5) 10/21/19 04:41 RBC 4.02 10^6/uL (4.35-5.55) L 10/21/19 04:41 Hgb 10.6 g/dL (13.5-17.0) L 10/21/19 04:41 Hct 33.0 % (37.9-51.0) L 10/21/19 04:41 MCV 82 fl (80-97) 10/21/19 04:41 MCH 26.3 pg (27.0-33.4) L 10/21/19 04:41 MCHC 32.1 g/dL (32.0-36.0) 10/21/19 04:41 RDW 15.9 % (11.5-14.0) H 10/21/19 04:41 Plt Count 184 10^3/uL (150-450) 10/21/19 04:41 Lymph % (Auto) Not Reportable 10/21/19 04:41 [place] % (Auto) Not Reportable 10/21/19 04:41 Eos % (Auto) Not Reportable 10/21/19 04:41 Baso % (Auto) Not Reportable 10/21/19 04:41 Absolute Neuts (auto) Not Reportable 10/21/19 04:41 Absolute Lymphs (auto) Not Reportable 10/21/19 04:41 Absolute Monos (auto) Not Reportable 10/21/19 04:41 Absolute Eos (auto) Not Reportable 10/21/19 04:41 Absolute Basos (auto) Not Reportable 10/21/19 04:41 Total Counted 100 10/21/19 04:41 Seg Neutrophils % Not Reportable 10/21/19 04:41 Seg Neuts % (Manual) 90 % (42-78) H 10/21/19 04:41 Lymphocytes % (Manual) 4 % (13-45) L 10/21/19 04:41 Monocytes % (Manual) 6 % (3-13) 10/21/19 04:41 Eosinophils % (Manual) 0 % (0-6) 10/21/19 04:41 Basophils % (Manual) 0 % (0-2) 10/21/19 04:41 Abs Neuts (Manual) 8.1 10^3/uL (1.7-8.2) 10/21/19 04:41 Abs Lymphs (Manual) 0.4 10^3/uL (0.5-4.7) L 10/21/19 04:41 Abs Monocytes (Manual) 0.5 10^3/uL (0.1-1.4) 10/21/19 04:41 Absolute Eos (Manual) 0.0 10^3/uL (0.0-0.6) 10/21/19 04:41 Abs Basophils (Manual) 0.0 10^3/uL (0.0-0.2) 10/21/19 04:41 Toxic Granulation SLIGHT 10/21/19 04:41 Toxic Vacuolation PRESENT 10/21/19 04:41 Platelet Comment ADEQUATE 10/21/19 04:41 Hypochromasia SLIGHT 10/21/19 04:41 Anisocytosis SLIGHT 10/21/19 04:41 Ovalocytes SLIGHT 10/21/19 04:41 PT 15.0 SEC (11.4-15.4) 10/16/19 11:30 INR 1.17 10/16/19 11:30 Carbonic Acid 1.69 mmol/L (1.05-1.35) H 10/22/19 09:20 HCO3/H2CO3 Ratio 22:1 10/22/19 09:20 ABG pH 7.46 (7.35-7.45) H 10/22/19 09:20 ABG pCO2 56.1 mmHg (35-45) H 10/22/19 09:20 ABG pO2 85.7 mmHg (80-100) 10/22/19 09:20 ABG HCO3 38.7 mmol/L (20-24) H 10/22/19 09:20 ABG Total CO2 40.5 mmol/L (23-27) H 10/22/19 09:20 ABG O2 Saturation 96.7 % (94-98) 10/22/19 09:20 ABG Base Excess 13.0 mmol/L 10/22/19 09:20 FiO2 36% 10/22/19 09:20 Sodium 135.4 mmol/L (137-145) L 10/21/19 18:20 Potassium 4.5 mmol/L (3.6-5.0) 10/21/19 18:20 Chloride 90 mmol/L (98-107) L 10/21/19 18:20 Carbon Dioxide 39 mmol/L (22-30) H 10/21/19 18:20 Anion Gap 6 (5-19) 10/21/19 18:20 BUN 25 mg/dL (7-20) H 10/21/19 18:20 Creatinine 0.88 mg/dL (0.52-1.25) 10/21/19 18:20 Est GFR ( Amer) > 60 (>60) 10/21/19 18:20 Est GFR (Non-Af Amer) Cancelled 10/18/19 03:50 Est GFR (MDRD) Non-Af > 60 (>60) 10/21/19 18:20 Glucose 216 mg/dL (75-110) H 10/21/19 18:20 POC Glucose 95 mg/dL (70-110) 10/16/19 21:27 Calcium 8.3 mg/dL (8.4-10.2) L 10/21/19 18:20 Magnesium 2.1 mg/dL (1.6-2.3) 10/21/19 18:20 Total Bilirubin 0.4 mg/dL (0.2-1.3) 10/21/19 04:41 Direct Bilirubin 0.1 mg/dL (0.0-0.4) 10/21/19 04:41 Neonat Total Bilirubin Not Reportable 10/21/19 04:41 Neonat Direct Bilirubin Not Reportable 10/21/19 04:41 Neonat Indirect Bili Not Reportable 10/21/19 04:41 AST 35 U/L (17-59) 10/21/19 04:41 ALT 28 U/L (<50) 10/21/19 04:41 Alkaline Phosphatase 142 U/L (38-126) H 10/21/19 04:41 Troponin I 0.024 ng/mL 10/15/19 12:32 NT-Pro-B Natriuret Pep 2010 pg/mL (<125) H 10/18/19 10:54 Total Protein 6.7 g/dL (6.3-8.2) 10/21/19 04:41 Albumin 3.0 g/dL (3.5-5.0) L 10/21/19 04:41 EGFR Cancelled 10/18/19 03:50 TSH 4.07 uIU/mL (0.47-4.68) 10/16/19 22:45 Free T4 1.63 ng/dL (0.78-2.19) 10/16/19 22:45 Free T3 pg/mL 2.79 pg/mL (2.77-5.27) 10/16/19 22:45 Urine Color COLORLESS 10/15/19 17:45 Urine Appearance CLEAR 10/15/19 17:45 Urine pH 5.0 (5.0-9.0) 10/15/19 17:45 Ur Specific [place] 1.005 10/15/19 17:45 Urine Protein NEGATIVE mg/dL (NEGATIVE) 10/15/19 17:45 Urine Glucose (UA) NEGATIVE mg/dL (NEGATIVE) 10/15/19 17:45 Urine Ketones NEGATIVE mg/dL (NEGATIVE) 10/15/19 17:45 Urine Blood NEGATIVE (NEGATIVE) 10/15/19 17:45 Urine Nitrite (Reflex) NEGATIVE (NEGATIVE) 10/15/19 17:45 Urine Bilirubin NEGATIVE (NEGATIVE) 10/15/19 17:45 Urine Urobilinogen NEGATIVE mg/dL (<2.0) 10/15/19 17:45 Leukocyte Esterase Rfl NEGATIVE (NEGATIVE) 10/15/19 17:45 Urine RBC (Auto) 2 /HPF 10/15/19 17:45 Urine Mucus (Auto) RARE /LPF 10/15/19 17:45 Urine Ascorbic Acid NEGATIVE (NEGATIVE) 10/15/19 17:45 Digoxin 1.37 ng/mL (0.8-2.0) 10/18/19 06:10 10/15/19 10/15/19 10/18/19 10:20 12:32 10:54 Troponin I Cancelled 0.024 NT-Pro-B Natriuret Pep Cancelled 7760 H 2010 H Impressions: Chest X-Ray 10/15/19 09:31 IMPRESSION: Cardiac enlargement with vascular congestion. Left basilar opacity and possible left effusion. Abdomen Ultrasound 10/15/19 16:29 IMPRESSION: Moderate ascites. Liver appears heterogeneous the visualized portion copyright 2011 [employer]- All Rights Reserved Abdomen/Pelvis CT 10/16/19 11:29 IMPRESSION: 1. Increased size of a moderate pericardial effusion. Small bilateral pleural effusions and bibasilar atelectasis. 2. Cirrhotic hepatic morphology with moderate volume ascites, increased from prior. Anasarca. 3. No evidence of obstructive uropathy. No definitive nephrolithiasis. 4. Additional chronic findings as above. Chest X-Ray 10/16/19 16:27 IMPRESSION: Lines and tubes as above. Unchanged retrocardiac airspace opacities and cardiomegaly. Chest X-Ray 10/17/19 08:25 IMPRESSION: Stable enlarged cardiac silhouette with unchanged left retrocardiac opacities. Chest X-Ray 10/18/19 06:00 IMPRESSION: Stable cardiomegaly. No acute infiltrates KUB X-Ray 10/20/19 00:00 IMPRESSION: Massive constipation KUB X-Ray 10/21/19 00:00 IMPRESSION: No evidence of intestinal obstruction. Moderate formed stool throughout the colon. Plan Goals: patient wiil schedule Stroke Is this a Stroke Patient?: No Acute Heart Failure - Is this a Heart Failure Patient?: Yes Documentation of LVEF assessment?: Planned for after discharge LVEF < 40%?: No- if no continue to question #3 3. Anticoagulant therapy for permanect/persistent/paraoxysmal Afib or Aflutter: Yes
[2019-10-24 15:49] VITALS: BP 97/67
== END 2019-10-24 16:59 | disposition home or self-care (01) | DRG 291 ==
LOC: ER 09:13 → EH 16:34 → 5 20:06 → 3N 10-16 16:41
PROVIDERS: ADMIT Internal Medicine; ATTEND Internal Medicine
PROC: 02HV33Z Insertion of Infusion Device into Superior Vena Cava, Percutaneous Approach (ICD-10-PCS; principal; 2019-10-16)
PROC: B548ZZA Ultrasonography of Superior Vena Cava, Guidance (ICD-10-PCS; 2019-10-16)
DX: I11.0 Hypertensive heart disease with heart failure (principal); J96.21 Acute and chronic respiratory failure with hypoxia; J44.1 Chronic obstructive pulmonary disease with (acute) exacerbation; K70.31 Alcoholic cirrhosis of liver with ascites; I50.23 Acute on chronic systolic (congestive) heart failure; I73.9 Peripheral vascular disease, unspecified; E03.9 Hypothyroidism, unspecified; E78.5 Hyperlipidemia, unspecified; I25.5 Ischemic cardiomyopathy; F43.10 Post-traumatic stress disorder, unspecified; I87.8 Other specified disorders of veins; F10.20 Alcohol dependence, uncomplicated; K44.9 Diaphragmatic hernia without obstruction or gangrene; D64.9 Anemia, unspecified; I25.2 Old myocardial infarction; Z79.51 Long term (current) use of inhaled steroids; R00.0 Tachycardia, unspecified; K59.00 Constipation, unspecified; R01.1 Cardiac murmur, unspecified; I95.9 Hypotension, unspecified; Z79.899 Other long term (current) drug therapy; Z66 Do not resuscitate; Z90.49 Acquired absence of other specified parts of digestive tract; Z82.49 Family history of ischemic heart disease and other diseases of the circulatory system; Z88.0 Allergy status to penicillin; Z88.1 Allergy status to other antibiotic agents; Z87.891 Personal history of nicotine dependence; Z99.81 Dependence on supplemental oxygen
CPT/HCPCS: 36415; 36600; 71045; 74018; 74176; 76700; 80048; 80053; 80162; 81001; 82803; 82962; 83735; 83880; 84439; 84443; 84481; 84484; 85025; 85610; 87086; 93005; 93010; 96374; 96376; 99291; J0282; J0696; J1160; J1250; J1265; J1642; J1644; J1940; J2270; J2920; J3475; J3490; J7030; J7040; J7050; J7060; J7620

== ENCOUNTER 2019-11-09 12:17 | Emergency (ER) | payer OTHER, MEDICARE ==
[2019-11-09 13:22] LABS: ABSOLUTE BASOPHILS # (AUTO) 0.1 10^3/uL (0.0-0.2); ABSOLUTE EOSINOPHILS # (AUTO) 0.3 10^3/uL (0.0-0.6); ABSOLUTE MONOCYTES (AUTO) 0.5 10^3/uL (0.1-1.4); ABSOLUTE NEUT (AUTO) 2.7 10^3/uL (1.7-8.2); BASOPHILS % (AUTO) 1.5 % (0-2); HEMATOCRIT 30.9 % (37.9-51.0); HEMOGLOBIN 10.2 g/dL (13.5-17.0); LYMPHOCYTES % (AUTO) 21.4 % (13-45); MEAN CORPUSCULAR HEMOGLOBIN 26.2 pg (27.0-33.4); MEAN CORPUSCULAR VOLUME 79 fl (80-97); MONOCYTES % (AUTO) 11.2 % (3-13); PLATELET COUNT 178 10^3/uL (150-450); RED BLOOD COUNT 3.89 10^6/uL (4.35-5.55); RED CELL DISTRIBUTION WIDTH 16.8 % (11.5-14.0); SEGMENTED NEUTROPHILS % (AUTO) 59.9 % (42-78); TOTAL CELLS COUNTED % (AUTO) 100 %; VENOUS BLOOD BASE EXCESS 2.1 mmol/L; VENOUS BLOOD HCO3 28.3 mmol/L (20-32); VENOUS BLOOD PCO2 52.5 mmHg (35-63); VENOUS BLOOD PH 7.35 (7.30-7.42); WHITE BLOOD COUNT 4.5 10^3/uL (4.0-10.5)
[2019-11-09 13:35] LABS: INTERNATIONAL RATION (INR) 1.24; PROTHROMBIN TIME 15.6 SEC (11.4-15.4)
[2019-11-09 13:38] LABS: ALBUMIN 3.5 g/dL (3.5-5.0); ALKALINE PHOSPHATASE 175 U/L (38-126); ANION GAP 9 (5-19); ASPARTATE AMINO TRANSFERASE 71 U/L (17-59); BILIRUBIN,TOTAL 0.6 mg/dL (0.2-1.3); BLOOD UREA NITROGEN 14 mg/dL (7-20); CALCIUM 8.5 mg/dL (8.4-10.2); CARBON DIOXIDE 26 mmol/L (22-30); CHLORIDE 100 mmol/L (98-107); GLUCOSE 86 mg/dL (75-110); POTASSIUM 4.3 mmol/L (3.6-5.0); TOTAL PROTEIN 7.2 g/dL (6.3-8.2)
[2019-11-09 14:29] LABS: APPEARANCE,URINE CLEAR; BILIRUBIN,URINE NEGATIVE (NEGATIVE); COLOR,URINE YELLOW; GLUCOSE, URINE NEGATIVE (NEGATIVE); KETONES,URINE NEGATIVE (NEGATIVE); LEUKOCYTE ESTERASE,URINE NEGATIVE (NEGATIVE); NITRITE,URINE NEGATIVE (NEGATIVE); PROTEIN,URINE NEGATIVE (NEGATIVE); URINE SPECIFIC GRAVITY 1.006; UROBILINOGEN,URINE NEGATIVE mg/dL (<2.0)
--- NOTE | 2019-11-09 15:26 | ER Document Report ---
ED General - General Chief Complaint: Groin Pain Stated Complaint: GROIN PAIN Time Seen by Provider: 11/09/19 14:46 [facility] [[facility] - Follow up as needed Information source: Patient, Emergency Med Personnel, [facility] Records Notes: This 69-year-old male patient comes emergency room for severe groin pain that is been going on for about 2 weeks. It has become severe in the past 3 to 4 days. It is made worse when he tries to get up and down off the toilet. Getting in and out of bed does not seem to cause problems. He does have a walker in his home, but he has a small mobile home making it difficult to use the walker. He reports his bathroom is attached to the bedroom so it is only a few steps. He does notice and if he sits down to have a bowel movement and urinates, he has to strain to push out the urine and that makes the pain worse. He was admitted here from 10/15/2019 through 10/24/2019 and noticed the discomfort the day after he was discharged on 10/25/2019. His admission at that time was congestive heart failure and he reports he had a Potter catheter in the entire admission. He does not report any urinary type symptoms. He is on tramadol for chronic pain management, at one time in the past he was receiving OxyContin, but has not for several months. TRAVEL OUTSIDE OF THE [place] IN LAST 30 DAYS: No - Related Data Allergies/Adverse Reactions: vancomycin Allergy (Unknown, Verified 05/28/19 05:34) azithromycin Allergy (Verified 05/28/19 05:34) hydrocodone Allergy (Verified 11/09/19 16:38) Penicillins Allergy (Verified 05/28/19 05:34) ketorolac [From Toradol] Adverse Reaction (Verified 07/19/19 13:40) Nausea Home Medications: benzoatate. ceftriaxone. doxycycline. folic acid. gabapentin. lyrica. mupirocin. oxycotin. simvastatin. solumedrol. symbicort. tramadol. tussionex Past Medical History - General Information source: Patient, Emergency Med Personnel, [facility] Records - Social History Smoking Status: Current Every Day Smoker Cigarette use (# per day): Yes Chew tobacco use (# tins/day): No Smoking Education Provided: No Frequency of alcohol use: None Drug Abuse: None Occupation: Retired Lives with: Friend Family History: CAD, COPD, Hypertension Patient has suicidal ideation: No Patient has homicidal ideation: No - Past Medical History Cardiac Medical History: Reports: Hx Congestive Heart Failure - Chronic systolic congestive heart failure with ejection fraction of 25%, Hx Heart Attack, Hx Hypertension, Hx Peripheral Vascular Disease - Chronic venous stasis Pulmonary Medical History: Reports: Hx Asthma, Hx Bronchitis, Hx COPD, Hx Pneumonia, Hx Respiratory Failure Endocrine Medical History: Reports: Hx Hypothyroidism GI Medical History: Reports: Hx Cirrhosis - Alcoholic cirrhosis, Hx Hiatal Hernia Psychiatric Medical History: Reports: Hx Post Traumatic Stress Disorder Past Surgical History: Reports: Hx Abdominal Surgery, Hx Cholecystectomy, Hx Orthopedic Surgery - Left knee surgery, left wrist surgery, Other - Gallbladder - Immunizations Immunizations up to date: Yes Hx Diphtheria, Pertussis, Tetanus Vaccination: Yes Hx Pneumococcal Vaccination: 09/14/16 Review of Systems - Review of Systems Constitutional: Weakness EENT: No symptoms reported Cardiovascular: No symptoms reported Respiratory: Cough Gastrointestinal: No symptoms reported Genitourinary: No symptoms reported Male Genitourinary: Other - Scrotal erythema rash-using cream on it Musculoskeletal: See HPI Skin: Rash - Scrotal rash Hematologic/Lymphatic: No symptoms reported Neurological/Psychological: No symptoms reported Physical Exam - Vital signs Vitals: Resp Pulse Ox 20 96 11/09/19 12:40 11/09/19 12:40 Interpretation: Normal - General General appearance: Appears well, Alert In distress: Mild - He winces with pain when he tries to flex the right hip and pull his leg up toward him. - HEENT Head: Normocephalic, Atraumatic Eyes: Normal Pupils: PERRL - Respiratory Respiratory status: No respiratory distress Breath sounds: Rhonchi - Cardiovascular Rhythm: Regular Heart sounds: Normal auscultation Murmur: No - Abdominal Inspection: Normal - There are old surgical scars Distension: No distension Bowel sounds: Normal Notes: There is no tenderness in palpating the abdomen. But as I go over the pelvic rim in the right lower quadrant into the groin region it is exquisitely tender. I do not palpate any swollen lymph nodes, and there is no swelling or erythema. There is no bulging to suggest hernia. Attempting to palpate femoral pulses is quite painful. - Genitourinary Tenderness: No: Testicle tender, Epididymis tender Scrotum: Redness - The skin of the scrotum has a erythematous color and dryness showing rash due to being in a pull-up brief. The patient is using a cream on that dry, reddened scrotal skin. - Back Back: Normal - Extremities General upper extremity: Normal inspection General lower extremity: Normal inspection - There is some tenderness to palpate the proximal medial thigh on the right, and more tender when the insertion into the pubic bones is palpated. The pain is made is exquisitely worse when he attempts to adduct the leg against resistance. - Neurological Neuro grossly intact: Yes - Psychological Associated symptoms: Normal affect, Normal mood - Skin Skin Temperature: Warm Skin Moisture: Dry Skin Color: Normal Course - Re-evaluation Re-evalutation: 11/09/19 16:46 At discharge, the patient claims he is allergic to hydrocodone. States it makes him itch. Reviewing records shows he got hydrocodone cough syrup last year. It shows on a recent admission that he got a hydrocodone dispense pack and a prescription for hydrocodone tablets, but I cannot find in the [facility] aware database evidence of him filling that prescription. I do not know how to undo a prescription that was sent electronically as required by law. I called the IT department and they do not know how to undo that prescription. I did try to go through a motion to stop the prescription the way I normally would before printing, and it has disappeared from the history, but I am unable to confirm that it was electronically canceled. I am going to really do a prescription for Percocet because he prefers oxycodone. 11/09/19 17:49 I did receive a phone call from the pharmacy stating that both of the prescriptions were showing as active, so I asked them to cancel the [place] prescription. - Vital Signs Vital signs: Temp Pulse Resp BP Pulse Ox 98 F 12 118/76 100 11/09/19 17:00 11/09/19 17:01 11/09/19 17:01 11/09/19 17:01 - Laboratory Result Diagrams: 11/09/19 12:58 11/09/19 12:58 Laboratory results interpreted by me: 11/09/19 11/09/19 11/09/19 12:58 12:58 12:58 RBC 3.89 L Hgb 10.2 L Hct 30.9 L MCV 79 L MCH 26.2 L RDW 16.8 H PT 15.6 H Sodium 134.7 L AST 71 H Alkaline Phosphatase 175 H Discharge - Discharge Clinical Impression: Strain of right groin Condition: Stable Disposition: HOME, SELF-CARE Additional Instructions: Inguinal Strain You have an inguinal strain, also known as a pulled groin. This injury causes pain where the lower abdominal wall meets the upper leg. The strain can affect several different muscles and tendons. When it occurs during running, the injury usually affects the tendon or upper muscle fibers of the thigh muscles. With weight lifting, it's the lower fi bers of the abdominal wall muscles that are most often strained. Running, lifting, squatting, or even walking can cause pain. A strain can take a few weeks to heal. Apply ice packs during the first couple of days following the injury. Antiinflammatory pain medication can help. Avoid lifting, running, jumping, and other activities that provoke pain. No hernia was found. But sometimes a hernia can begin with the same symptoms as a strain of the groin. If you find a lump or bulge in the groin, pain or swelling in the testicle, abdominal cramping, or vomiting, you should return for re-examination. Take the pain medication as prescribed if needed. Take a stool softener and drink plenty of fluids to prevent constipation. Continue the tramadol you take for your chronic pain management. Use your walker to improve balance and facilitate walking as needed. Limit or avoid any activity that makes the pain worse. Follow-up with your primary care provider next week if not beginning to improve. RETURN TO THE EMERGENCY ROOM IF ANY NEW OR WORSENING SYMPTOMS. Prescriptions: Oxycodone HCl/Acetaminophen [Percocet 5-325 mg Tablet] 1 tab PO ASDIR PRN #12 tablet PRN Reason: Forms: Smoking Cessation Education [facility]errals: [facility] [[facility]] - Follow up as needed
[2019-11-09] MEDS ORDERED: HYDROCODONE/ACETAMINOPHEN 5-325 MG TABLET PO ONE (15:30)
--- NOTE | 2019-11-09 17:27 | EKG REPORT ---
SEVERITY:- ABNORMAL ECG - SINUS RHYTHM BORDERLINE LEFT AXIS DEVIATION NONSPECIFIC T ABNORMALITIES, LATERAL LEADS BORDERLINE PROLONGED QT INTERVAL : Confirmed by: Lorenza Sandoval MD 09-Nov-2019 17:26:17
[2019-11-09 17:55] VITALS: BP 131/85
== END 2019-11-09 17:59 | disposition home or self-care (01) ==
LOC: ER 12:17
DX: S39.011A Strain of muscle, fascia and tendon of abdomen, initial encounter (principal); R10.30 Lower abdominal pain, unspecified; X58.XXXA Exposure to other specified factors, initial encounter; Z88.1 Allergy status to other antibiotic agents; Z88.0 Allergy status to penicillin; Z79.899 Other long term (current) drug therapy; G89.29 Other chronic pain; F17.210 Nicotine dependence, cigarettes, uncomplicated; I50.9 Heart failure, unspecified; I25.2 Old myocardial infarction; I11.0 Hypertensive heart disease with heart failure; J44.9 Chronic obstructive pulmonary disease, unspecified
CPT/HCPCS: 36415; 80053; 81001; 82803; 83605; 85025; 85610; 87040; 93005; 93010; 99284

== ENCOUNTER 2019-11-25 21:57 | Emergency (ER) | payer OTHER, MEDICARE ==
[2019-11-26] MEDS ORDERED: IPRATROPIUM/ALBUTEROL 0.5-2.5 MG/3 ML AMPUL NEB ONE (00:21)
[2019-11-26] MEDS ORDERED: ONDANSETRON HCL INJ/PF 4 MG/2 ML SDV IV ONE (00:21)
[2019-11-26] MEDS ORDERED: MORPHINE SULFATE 10 MG/ML INJ IV ONE ×3 (00:21→05:00)
[2019-11-26] MEDS ORDERED: NORMAL SALINE 1000 ML 1,000 ML IV ONE (00:22)
--- NOTE | 2019-11-26 00:26 | ER Document Report ---
ED General - General Information source: Patient TRAVEL OUTSIDE OF THE [place] IN LAST 30 DAYS: No - HPI Onset: This evening Onset/Duration: Persistent, Worse Quality of pain: Throbbing Severity: Moderate Pain Level: 3 Associated symptoms: Nausea. denies: Diarrhea, Vomiting Exacerbated by: Standing, Movement, Coughing, Deep breathing Relieved by: Denies Similar symptoms previously: Yes Recently seen / treated by doctor: No <RADHIKA MCGRAW - Last Filed: 11/26/19 01:19> <KAMILAH OLMSTEAD IV - Last Filed: 11/26/19 05:04> - General Chief Complaint: Groin Pain Stated Complaint: GROIN PAIN Time Seen by Provider: 11/26/19 00:22 [facility]: [facility] [[facility]] - Follow up as needed Notes: Patient is a 69-year-old male presenting to the emergency department chief complaint of right-sided groin pain. Patient states that this evening about 5 PM the pain became much more intense and has not let up. Patient denies travel history trauma history sick contacts no obvious overexertion. Patient does report nausea but no acute vomiting no diarrhea. (RADHIKA MCGRAW) - Related Data Allergies/Adverse Reactions: vancomycin Allergy (Unknown, Verified 05/28/19 05:34) azithromycin Allergy (Verified 05/28/19 05:34) hydrocodone Allergy (Verified 11/09/19 16:38) Penicillins Allergy (Verified 05/28/19 05:34) ketorolac [From Toradol] Adverse Reaction (Verified 07/19/19 13:40) Nausea Past Medical History - General Information source: Patient - Social History Smoking Status: Current Every Day Smoker Cigarette use (# per day): Yes Chew tobacco use (# tins/day): No Smoking Education Provided: Yes Frequency of alcohol use: None Drug Abuse: None Family History: CAD, COPD, Hypertension Patient has suicidal ideation: No Patient has homicidal ideation: No - Past Medical History Cardiac Medical History: Reports: Hx Congestive Heart Failure - Chronic systolic congestive heart failure with ejection fraction of 25%, Hx Heart Attack, Hx Hypertension, Hx Peripheral Vascular Disease - Chronic venous stasis Denies: Hx Atrial Fibrillation, Hx Hypercholesterolemia Pulmonary Medical History: Reports: Hx Asthma, Hx Bronchitis, Hx COPD, Hx Pneumonia, Hx Respiratory Failure Neurological Medical History: Denies: Hx Seizures Endocrine Medical History: Reports: Hx Hypothyroidism. Denies: Hx Diabetes Mellitus Type 1, Hx Diabetes Mellitus Type 2 GI Medical History: Reports: Hx Cirrhosis - Alcoholic cirrhosis, Hx Hiatal Hernia Musculoskeletal Medical History: Denies Hx Arthritis Psychiatric Medical History: Reports: Hx Post Traumatic Stress Disorder Denies: Hx Depression Past Surgical History: Reports: Hx Abdominal Surgery, Hx Cholecystectomy, Hx Orthopedic Surgery - Left knee surgery, left wrist surgery, Other - Gallbladder - Immunizations Immunizations up to date: Yes Hx Diphtheria, Pertussis, Tetanus Vaccination: Yes Hx Pneumococcal Vaccination: 09/14/16 <RADHIKA MCGRAW - Last Filed: 11/26/19 01:19> Review of Systems <RADHIKA MCGRAW - Last Filed: 11/26/19 01:19> - Review of Systems Notes: REVIEW OF SYSTEMS: CONSTITUTIONAL : Denies fever, chills, or sweats. Denies recent illness. EENT: Denies eye, ear, throat, or mouth pain or symptoms. Denies nasal or sinus congestion. CARDIOVASCULAR: Denies chest pain. RESPIRATORY: Denies cough, cold, or chest congestion. Patient reports chronic cough wheeze and shortness of breath GASTROINTESTINAL: Per HPI GENITOURINARY: Per HPI MUSCULOSKELETAL: Denies neck or back pain or joint pain or swelling. SKIN: Denies rash or skin lesions. HEMATOLOGIC : Denies easy bruising or bleeding. NEUROLOGICAL: Denies altered mental status or loss of consciousness. Denies headache. Denies weakness or paralysis or loss of use of either side. Denies problems with gait or speech. Denies sensory or motor loss. PSYCHIATRIC: Denies suicidal or homicidal ideations 10 Systems are negative unless otherwise specified above (RADHIKA MCGRAW) Physical Exam <RADHIKA MCGRAW - Last Filed: 11/26/19 01:19> - Vital signs Vitals: Pulse Ox 98 11/25/19 22:17 - Notes Notes: PHYSICAL EXAMINATION: GENERAL: Well-appearing, well-nourished however is in moderate distress. HEAD: Atraumatic, normocephalic. EYES: Pupils equal round and reactive to light, extraocular movements intact, sclera anicteric, conjunctiva are normal. ENT: nares patent, oropharynx clear without exudates. Dry mucous membranes. NECK: Normal range of motion, supple without lymphadenopathy, no appreciable JVD LUNGS: Lungs demonstrate rhonchi in all [place] inspiratory and expiratory wheezing in all [place] HEART: Tachycardic rate and rhythm without murmurs ABDOMEN: Patient has an area of approximately 4 cm to the right anterior inguinal region which is tender or swollen any exertion or deep breath causes an increase in size and an increase in pain. EXTREMITIES: Active full range of motion, no pitting or edema. No cyanosis. 2+ pulses x4 NEUROLOGICAL: No focal neurological deficits. Moves all extremities spontaneously and on command. SKIN: Warm, Dry, and intact. Normal turgor, no rashes or lesions noted. (RADHIKA MCGRAW) Course - EKG Interpretation by Me EKG shows normal: Sinus rhythm Rate: Tachycardia Rhythm: NSR When compared to previous EKG there are: No significant change <RADHIKA MCGRAW - Last Filed: 11/26/19 01:19> - Laboratory Result Diagrams: 11/26/19 02:32 11/26/19 02:32 <KAMILAH OLMSTEAD IV - Last Filed: 11/26/19 05:04> - Re-evaluation Re-evalutation: 11/26/19 04:51 Results of ED MSE discussed with patient. There was no evidence of bowel obstruction on the CAT scan. This MD did not appreciate any significant bulge in the right inguinal region on exam. Patient stated that it was not visible when he is lying down but it is visible when he stands up. Patient is requesting more pain medication and something to drink. All questions were answered prior to discharge. Emergency signs and symptoms, reasons to return to the emergency department discussed with patient. (KAMILAH OLMSTEAD IV) - Vital Signs Vital signs: Temp Pulse Resp BP Pulse Ox 97.8 F 13 109/87 H 100 11/26/19 04:36 11/26/19 04:31 11/26/19 04:31 11/26/19 04:31 - Laboratory Laboratory results interpreted by me: 11/26/19 11/26/19 11/26/19 02:32 02:32 02:32 RBC 3.93 L Hgb 10.3 L Hct 31.9 L MCH 26.2 L RDW 19.4 H Eosinophils % (Manual) 7 H PT 17.3 H Calcium 7.9 L Alkaline Phosphatase 145 H Albumin 3.2 L Lipase 13.6 L Discharge <RADHIKA MCGRAW - Last Filed: 11/26/19 01:19> <KAMILAH OLMSTEAD IV - Last Filed: 11/26/19 05:04> - Discharge Clinical Impression: Abdominal pain Qualifiers: Abdominal location: unspecified location Qualified Code(s): R10.9 - Unspecified abdominal pain Condition: Good Disposition: HOME, SELF-CARE Instructions: Abdominal Pain ([facility]) Additional Instructions: Return to the Emergency Department without delay if any worse. HOME CARE INSTRUCTIONS & INFORMATION: Thank you for choosing us for your [facility] needs. We hope you're satisfied with the care you received. After you leave, you must properly care for your problem and, at the same time, observe its progress. Any condition can change. Some illnesses can change rapidly over hours or days. If your condition worsens, return to the Emergency Department or see your physician promptly. ABOUT YOUR X-RAYS AND EKG'S: If you had an EKG or X-rays taken, they have been read by the Emergency Physician. The X-rays and EKG's will also be read by a Radiologist or Double Cutter within 24 hours. If discrepancies are noted, you will be notified by telephone. Please be certain the ED has a correct telephone number & address where you can be reached. Also, realize that some fractures or abnormalities do not show up on initial X-rays. If your symptoms continue, see your physician. ABOUT YOUR LABORATORY TEST: If you had laboratory tests, the results have been reviewed by the Emergency Physician. Some test results (for example cultures) may not be available for several days. You will be contacted if any test result shows you need additional treatment. Please be certain the ED has a correct telephone number and address where you can be reached. ABOUT YOUR MEDICATIONS: You will receive instructions on how to take your medicine on the prescription label you receive. Additional information may be provided by the Pharmacy. If you have questions afterwards, call the ED for clarification or further instructions. Some prescribed medications may cause drowsiness. Do not perform tasks such as driving a car or operating machinery without consulting your Pharmacist. If you feel you need a refill of pain medication, your condition will need re-evaluation. Please do not call for a refill of any medication. ABOUT YOUR SIGNATURE: Signature of this document acknowledges to followin. Understanding that you received emergency treatment and that you may be released before al medical problems are known or treated. Please be certain the ED has a correct phone number & address where you can be reached. 2. Acknowledgement that you will arrange for follow-up care as recommended. 3. Authorization for the Emergency Physician to provide information to your follow-up Physician in order to maximize your care. AT ANY TIME, IF YOUR SYMPTOMS CHANGE SIGNIFICANTLY OR WORSEN OR YOU DEVELOP NEW SYMPTOMS, RETURN TO THE EMERGENCY DEPARTMENT IMMEDIATELY FOR RE-EVALUATION. OUR GOAL IS TO PROVIDE EXCELLENT MEDICAL CARE! WE HOPE THAT WE HAVE MET YOUR EXPECTATIONS DURING YOUR EMERGENCY DEPARTMENT VISIT AND THAT YOU FEEL YOU HAVE RECEIVED EXCELLENT CARE! Hernia You have a hernia. A hernia forms at a weak spot in the abdominal wall. Bowel slips out of the abdominal cavity into the weak spot. Hernias tend to occur in the groin (especially in males), the fold of the thigh, the naval, or at a surgical scar. Surgical repair of the defect is usually necessary. The problem tends to get worse. It's important that you follow up as recommended. For now, you should avoid straining, heavy lifting, and vigorous exercise. Complications occur if the hernia becomes tightly stuck. You should come back immediately if the area becomes increasingly painful, swollen, or discolored, or if you develop abdominal pain and vomiting. Prescriptions: Oxycodone HCl [Oxy-Ir 5 mg Tablet] 5 mg PO Q6HP PRN #10 tab PRN Reason: pain [facility]errals: [facility] [[facility]] - Follow up as needed ROMAN SANTANA MD [ACTIVE STAFF] - Follow up as needed
--- NOTE | 2019-11-26 01:22 | RADIOLOGY REPORT (SQ) ---
EXAM DESCRIPTION: XR CHEST 1 VIEW COMPLETED DATE/TME: 11/26/2019 00:20 CLINICAL HISTORY: 69 years, Male, sob COMPARISON: None. NUMBER OF VIEWS: TECHNIQUE: LIMITATIONS: None. FINDINGS: There is cardiomegaly. There is mild pulmonary vascular congestion. No evidence of pulmonary consolidation or pleural effusion. There are atherosclerotic changes and tortuosity of the thoracic aorta. There is an old fracture of the left clavicle. IMPRESSION: Cardiomegaly with mild pulmonary vascular congestion. copyright 2010 [email or web address]- All Rights Reserved
[2019-11-26 02:46] LABS: PROTHROMBIN TIME 17.3 SEC (11.4-15.4)
[2019-11-26 02:48] LABS: HEMATOCRIT 31.9 % (37.9-51.0); HEMOGLOBIN 10.3 g/dL (13.5-17.0); MEAN CORPUSCULAR HEMOGLOBIN 26.2 pg (27.0-33.4); MEAN CORPUSCULAR HGB CONC 32.3 g/dL (32.0-36.0); MEAN CORPUSCULAR VOLUME 81 fl (80-97); PLATELET COUNT 237 10^3/uL (150-450); RED BLOOD COUNT 3.93 10^6/uL (4.35-5.55); RED CELL DISTRIBUTION WIDTH 19.4 % (11.5-14.0); WHITE BLOOD COUNT 6.7 10^3/uL (4.0-10.5)
[2019-11-26 03:05] LABS: ALBUMIN 3.2 g/dL (3.5-5.0); ALKALINE PHOSPHATASE 145 U/L (38-126); ANION GAP 7 (5-19); ASPARTATE AMINO TRANSFERASE 31 U/L (17-59); BILIRUBIN,DIRECT 0.1 mg/dL (0.0-0.4); BILIRUBIN,TOTAL 0.9 mg/dL (0.2-1.3); BLOOD UREA NITROGEN 17 mg/dL (7-20); CALCIUM 7.9 mg/dL (8.4-10.2); CARBON DIOXIDE 27 mmol/L (22-30); CHLORIDE 106 mmol/L (98-107); GLUCOSE 95 mg/dL (75-110); POTASSIUM 3.8 mmol/L (3.6-5.0); TOTAL PROTEIN 6.8 g/dL (6.3-8.2)
[2019-11-26 03:15] LABS: ABSOLUTE LYMPHOCYTES# (MANUAL) 1.7 10^3/uL (0.5-4.7); ABSOLUTE MONOCYTES # (MANUAL) 0.4 10^3/uL (0.1-1.4); BASOPHILS % (MANUAL) 1 % (0-2); EOSINOPHILS % (MANUAL) 7 % (0-6); LYMPHOCYTES % (MANUAL) 24 % (13-45); MONOCYTES % (MANUAL) 6 % (3-13); SEGMENTED NEUTROPHILS % (MAN) 61 % (42-78); TOTAL CELLS COUNTED 100
[2019-11-26 03:20] LABS: ANISOCYTOSIS 2+; BURR CELLS SLIGHT; OVALOCYTES 1+; PLATELET COMMENT ADEQUATE; POIKILOCYTOSIS 2+; SCHISTOCYTES 1+; TARGET CELLS 1+; TOXIC GRANULATION 1+
--- NOTE | 2019-11-26 04:13 | RADIOLOGY REPORT (SQ) ---
EXAM: CT Abdomen and Pelvis With Intravenous Contrast EXAM DATE/TIME: 11/26/2019 3:24 AM CLINICAL HISTORY: The patient is 69 years old and is Male; right lower quadrant pain, right inguinal hernia??? TECHNIQUE: Axial computed tomography images of the abdomen and pelvis with intravenous contrast. Sagittal and coronal reformatted images were created and reviewed. This CT exam was performed using one or more of the following dose reduction techniques: automated exposure control, adjustment of the mA and/or kV according to patient size, and/or use of iterative reconstruction technique. COMPARISON: CT abdomen pelvis from 10/17/2019 FINDINGS: LUNG BASES: Minimal bibasilar atelectasis. PLEURAL SPACE: Small to moderate bilateral pleural effusions, which are increased in size compared to the prior exam. HEART: Moderate cardiomegaly. There is a trace pericardial effusion, which is decreased in size compared to the prior exam. ABDOMEN: LIVER: The liver is nodular in contour, compatible with cirrhosis. No obvious liver mass. GALLBLADDER AND BILE DUCTS: The gallbladder is surgically absent. No significant biliary ductal dilatation appreciated. PANCREAS: The pancreas is atrophic. No obvious pancreatic mass. No pancreatic ductal dilatation. SPLEEN: Unremarkable. No splenomegaly. ADRENALS: Unremarkable. No adrenal nodules or masses identified. KIDNEYS AND URETERS: There are bilateral renal cysts, most of which are within the right kidney. No solid renal mass. No hydronephrosis. No renal or ureteral stones. There is mild bilateral perinephric stranding which is likely chronic. STOMACH AND BOWEL: Postsurgical changes compatible with gastric bypass. There is no bowel obstruction. Small amount of fluid noted in the excluded stomach. There is mild wall thickening of the distal colon which is likely related to nondistention. PELVIS: APPENDIX: The appendix is not definitively visualized. However, there are no inflammatory changes seen at the expected location of the appendix to suggest appendicitis. BLADDER: Unremarkable. No obvious mass. REPRODUCTIVE: Unremarkable as visualized. ABDOMEN and PELVIS: INTRAPERITONEAL SPACE: Mild to moderate ascites, which is decreased compared to the prior study. There is mild diffuse mesenteric edema. No free air. No evidence of abscess. 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 No articular surface collapse. No acute fracture. No dislocation. SOFT TISSUES: Postsurgical changes of prior ventral hernia repair. No inguinal hernia visualized. Mild diffuse subcutaneous edema. VASCULATURE: Atherosclerotic calcifications are noted. No aortic aneurysm. LYMPH NODES: No significant lymph node enlargement. IMPRESSION: 1. Findings compatible with cirrhosis. 2. Mild to moderate ascites, which is decreased compared to the prior study. 3. Bilateral pleural effusions, which are increased in size.
[2019-11-26 06:01] VITALS: BP 123/80
--- NOTE | 2019-11-28 00:32 | EKG REPORT ---
SEVERITY:- ABNORMAL ECG - SINUS TACHYCARDIA MULTIPLE ATRIAL PREMATURE COMPLEXES NONSPECIFIC T ABNORMALITIES, LATERAL LEADS BORDERLINE PROLONGED QT INTERVAL : Confirmed by: Mary Man 28-Nov-2019 00:31:34
== END 2019-11-26 06:00 | disposition home or self-care (01) ==
LOC: ER 21:57
DX: R10.9 Unspecified abdominal pain (principal); R10.31 Right lower quadrant pain; R11.0 Nausea; Z88.1 Allergy status to other antibiotic agents; Z88.8 Allergy status to other drugs, medicaments and biological substances; F17.210 Nicotine dependence, cigarettes, uncomplicated; I50.9 Heart failure, unspecified; I25.2 Old myocardial infarction; I11.0 Hypertensive heart disease with heart failure; J44.9 Chronic obstructive pulmonary disease, unspecified; R00.0 Tachycardia, unspecified
CPT/HCPCS: 93005; 96376; 94640; 99285; 96361; 51701; 96374; 96375; 36415; 83690; 85025; 85610; 80053; 71045; 74177; 93010; J2270; J2405; J7030; J7620

== ENCOUNTER 2019-11-27 11:52 | Emergency (ER) | payer OTHER, MEDICARE ==
--- NOTE | 2019-11-27 12:29 | ER Document Report ---
ED General - General Chief Complaint: Groin Pain Stated Complaint: HERNIA PAIN Time Seen by Provider: 11/27/19 12:05 Primary Care Provider: PETERSON,KELLIE [Primary Care Provider] - Follow up as needed Mode of Arrival: Medic Information source: Patient Notes: triaqge note; Patient presents to ER via EMS with concern for groin pain related to right inguinal hernia. Reports hernia presented on 11/23/19. States he was in ED on Thursday for pain, was discharged and encouraged to contact surgeon as soon as possible. Patient states he was not able to follow up due to it being weekend. Reports he was prescribed oxycodone and is out of medication. EMS reports patient stated he would take 3-4 at a time. Patient presented to ED on A&A treatment. EMS reports it was time for patient's scheduled breathing treatment. Reports patient presents with wheezing and cough, which patient states has been present for "50 years". Patient is on home oxygen, 2L, at all times. 69-year-old male arrives for third visit within 5 days.. Patient presents with right inguinal pain which is quite severe. He reports he had CT scan done here recently but the morphine made him quite nauseated. He also reports he had IV dye use for his study. Patient has been unable to walk because of the right inguinal pain. He reports a 10 out of [address] pain[address] He reports Dr. Richmond in [place] performed a gastric bypass as well as a mass removal and 2004. He also had his gallbladder resected at that time. He has a right lower quadrant horizontal scar approximately 16 cm in length well-healed. His right inguinal hernia is obvious on brief inspection as well. Palpation is area induces worsening of his pain. Patient has a history of being an ex- drinker many years ago and now has early cirrhosis. Patient limits his Tylenol because of this reason. TRAVEL OUTSIDE OF THE [place] IN LAST 30 DAYS: No - HPI Onset: This morning Onset/Duration: Persistent, Waxing and waning Quality of pain: Sharp Severity: Severe Pain Level: 5 Associated symptoms: None Exacerbated by: Movement, Walking, Coughing Relieved by: Remaining still Similar symptoms previously: Yes Recently seen / treated by doctor: Yes - Related Data Allergies/Adverse Reactions: vancomycin Allergy (Unknown, Verified 05/28/19 05:34) azithromycin Allergy (Verified 05/28/19 05:34) hydrocodone Allergy (Verified 11/09/19 16:38) Penicillins Allergy (Verified 05/28/19 05:34) acetaminophen Adverse Reaction (Verified 11/27/19 13:18) ketorolac [From Toradol] Adverse Reaction (Verified 07/19/19 13:40) Nausea Home Medications: Gabapentin 300 mg, take 4 capsules Q8H. Metoprolol Tartrate 25 mg, take 1/2 tab BID. Tramadol HCL 50 mg, take 2 tab TID PRN. Losartan Potassium 50 mg, 1 tab QDay. Folic Acid 1 mg, 1 tab QDay. Simvastatin 80 mg, 1/2 tab QHS. Ketoconazole 2% cream, apply to affected area TID - groin. Symbicort. Proair Past Medical History - General Information source: Patient - Social History Smoking Status: Current Every Day Smoker Cigarette use (# per day): Yes - Patient reports he smokes 3 cigarettes/day. 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 Frequency of alcohol use: None Drug Abuse: None Family History: CAD, COPD, Hypertension Patient has suicidal ideation: No Patient has homicidal ideation: No - Past Medical History Cardiac Medical History: Reports: Hx Congestive Heart Failure - Chronic systolic congestive heart failure with ejection fraction of 25%;, Hx Heart Attack, Hx Hypertension, Hx Peripheral Vascular Disease - Chronic venous stasis Denies: Hx Atrial Fibrillation, Hx Hypercholesterolemia Pulmonary Medical History: Reports: Hx Asthma, Hx Bronchitis, Hx COPD, Hx Pneumonia, Hx Respiratory Failure Neurological Medical History: Denies: Hx Seizures Endocrine Medical History: Reports: Hx Hypothyroidism. Denies: Hx Diabetes Mellitus Type 1, Hx Diabetes Mellitus Type 2 GI Medical History: Reports: Hx Cirrhosis - Alcoholic cirrhosis, Hx Hiatal Hernia Musculoskeletal Medical History: Denies Hx Arthritis Psychiatric Medical History: Reports: Hx Post Traumatic Stress Disorder Denies: Hx Depression Past Surgical History: Reports: Hx Abdominal Surgery, Hx Cholecystectomy, Hx Orthopedic Surgery - Left knee surgery, left wrist surgery, Other - Gallbladder - Immunizations Immunizations up to date: Yes Hx Diphtheria, Pertussis, Tetanus Vaccination: Yes Hx Pneumococcal Vaccination: 09/14/16 Review of Systems - Review of Systems Constitutional: See HPI, Malaise, Weakness EENT: No symptoms reported Cardiovascular: No symptoms reported Respiratory: No symptoms reported Gastrointestinal: See HPI, Abdomen distended, Abdominal pain - Patient ate last night and also had bowel movement around 2300 last night. Genitourinary: No symptoms reported Male Genitourinary: No symptoms reported Musculoskeletal: No symptoms reported Skin: No symptoms reported Hematologic/Lymphatic: No symptoms reported Neurological/Psychological: No symptoms reported Physical Exam - Vital signs Vitals: Resp BP 23 H 116/75 11/27/19 12:01 11/27/19 12:01 Interpretation: Normal - HEENT Head: Normocephalic Eyes: Normal Conjunctiva: Normal Cornea: Normal Extraocular movements intact: Yes Eyelashes: Normal Pupils: PERRL Sinus: Normal Nasal: Normal Mouth/Lips: Normal Pharynx: Normal Neck: Normal - Respiratory Respiratory status: No respiratory distress Chest status: Nontender Breath sounds: Normal Chest palpation: Normal - Cardiovascular Rhythm: Regular Heart sounds: Normal auscultation Murmur: No Friction rub: No Sher's crunch: No - Abdominal Inspection: Other - Right inguinal hernia proximally 5 cm diameter very tender to palpation nonreducible Distension: Distended Bowel sounds: Hypoactive Tenderness: Tender Organomegaly: No organomegaly - Genitourinary Inspection: Normal Tenderness: Nontender Cremasteric reflex: Normal Scrotum: Normal - Back Back: Normal - Extremities General upper extremity: Normal inspection General lower extremity: Normal inspection - Neurological Neuro grossly intact: Yes Cognition: Normal Orientation: AAOx4 Germaine Coma Scale Eye Opening: Spontaneous Germaine Coma Scale Verbal: Oriented [place] Coma Scale Motor: Obeys Commands Germaine Coma Scale Total: 15 Speech: Normal Cranial nerves: Normal Cerebellar coordination: Normal Motor strength normal: LUE, RUE, LLE, RLE - Psychological Associated symptoms: Agitated - Skin Skin Temperature: Warm Skin Moisture: Dry Course - Vital Signs Vital signs: Temp Pulse Resp BP Pulse Ox 98.2 F 15 113/93 H 99 11/27/19 16:09 11/27/19 17:33 11/27/19 17:33 11/27/19 17:32 - Laboratory Result Diagrams: 11/27/19 12:58 11/27/19 12:58 Laboratory results interpreted by me: 11/27/19 11/27/19 11/27/19 12:58 12:58 15:17 RBC 3.97 L Hgb 10.6 L Hct 32.4 L MCH 26.7 L RDW 19.4 H Calcium 8.3 L Alkaline Phosphatase 172 H Albumin 3.3 L Urine Protein 30 H Urine Urobilinogen 4.0 H - Diagnostic Test Radiology reviewed: Reports reviewed Radiology results interpreted by me: 11/27/19 17:[address] revealed a new right inguinal 3 cm fluid-filled hernia; Critical Care Note - Critical Care Note Total time excluding time spent on procedures (mins): 90 Comments: This case was discussed with Dr. Riky Cote and he advised patient to be seen in his office tomorrow; also he advised us to avoid any narcotics on this man. I will write for Parafon forte prescription. He is allergic to hydrocodone and Toradol and has a history of early cirrhosis because of being ex-drinker in the past. He therefore limits his Tylenol use as well. I spoke with the patient about his CT and ultrasound findings and his laboratory findings. He was very upset that he was not can have his hernia repaired here today. I advised him at this point it is not emergent and Dr. Cote feels that he can see him in his office tomorrow. The patient advises that "he will need [employer] to drive him to [facility] his home tonight." Also patient requested "more Percocet tablets so he can take them for pain. He does need some that are a lot stronger than the ones he was taking because he took the entire bottle over matter of 2 days." Discharge - Discharge Clinical Impression: 3 cm fluid-filled inguinal hernia Abdominal pain Qualifiers: Abdominal location: right lower quadrant Qualified Code(s): R10.31 - Right lower quadrant pain Inguinal hernia Qualifiers: Obstruction and gangrene presence: without obstruction or gangrene Laterality: unilateral Recurrence: not specified as recurrent Qualified Code(s): K40.90 - Un ilateral inguinal hernia, without obstruction or gangrene, not specified as recurrent Disposition: HOME, SELF-CARE Additional Instructions: Follow-up tomorrow in Dr. Riky Cote's office; he will evaluate your right inguinal fluid-filled hernia; take your medicines as directed and return as needed; avoid lifting bending or twisting Prescriptions: Chlorzoxazone [Parafon Forte Dsc 500 Mg Tablet] 500 mg PO TID PRN #15 tablet PRN Reason: [facility]errals: [facility] [[facility]] - Follow up as needed
[2019-11-27] MEDS ORDERED: NORMAL SALINE 1000 ML 1,000 ML IV ONE (12:35)
[2019-11-27] MEDS ORDERED: FENTANYL CITRATE INJ/PF 100 MCG/2 ML AMPUL IV ONE (12:36)
[2019-11-27] MEDS ORDERED: ONDANSETRON HCL INJ/PF 4 MG/2 ML SDV IV ONE (12:39)
[2019-11-27 13:21] LABS: ABSOLUTE BASOPHILS # (AUTO) 0.1 10^3/uL (0.0-0.2); ABSOLUTE EOSINOPHILS # (AUTO) 0.4 10^3/uL (0.0-0.6); ABSOLUTE LYMPHOCYTES (AUTO) 1.1 10^3/uL (0.5-4.7); ABSOLUTE MONOCYTES (AUTO) 0.6 10^3/uL (0.1-1.4); ABSOLUTE NEUT (AUTO) 4.9 10^3/uL (1.7-8.2); BASOPHILS % (AUTO) 1.4 % (0-2); EOSINOPHILS % (AUTO) 5.7 % (0-6); HEMATOCRIT 32.4 % (37.9-51.0); HEMOGLOBIN 10.6 g/dL (13.5-17.0); LYMPHOCYTES % (AUTO) 15.7 % (13-45); MEAN CORPUSCULAR HEMOGLOBIN 26.7 pg (27.0-33.4); MEAN CORPUSCULAR HGB CONC 32.6 g/dL (32.0-36.0); MEAN CORPUSCULAR VOLUME 82 fl (80-97); MONOCYTES % (AUTO) 8.3 % (3-13); PLATELET COUNT 278 10^3/uL (150-450); RED BLOOD COUNT 3.97 10^6/uL (4.35-5.55); RED CELL DISTRIBUTION WIDTH 19.4 % (11.5-14.0); SEGMENTED NEUTROPHILS % (AUTO) 68.9 % (42-78); TOTAL CELLS COUNTED % (AUTO) 100 %; WHITE BLOOD COUNT 7.1 10^3/uL (4.0-10.5)
[2019-11-27 13:33] LABS: ALBUMIN 3.3 g/dL (3.5-5.0); ALKALINE PHOSPHATASE 172 U/L (38-126); ANION GAP 11 (5-19); ASPARTATE AMINO TRANSFERASE 30 U/L (17-59); BILIRUBIN,DIRECT 0.3 mg/dL (0.0-0.4); BILIRUBIN,TOTAL 0.6 mg/dL (0.2-1.3); BLOOD UREA NITROGEN 19 mg/dL (7-20); CALCIUM 8.3 mg/dL (8.4-10.2); CARBON DIOXIDE 25 mmol/L (22-30); CHLORIDE 102 mmol/L (98-107); GLUCOSE 108 mg/dL (75-110); POTASSIUM 3.9 mmol/L (3.6-5.0); TOTAL PROTEIN 7.3 g/dL (6.3-8.2)
--- NOTE | 2019-11-27 14:56 | RADIOLOGY REPORT (SQ) ---
EXAM DESCRIPTION: CT ABD/PELVIS WITH IV ONLY COMPLETED DATE/TIME: 11/27/2019 2:39 pm REASON FOR STUDY: RLQ groin herniae pain COMPARISON: 11/26/2019 TECHNIQUE: CT scan of the abdomen and pelvis performed using helical scanning technique with dynamic intravenous contrast injection. No oral contrast. Images reviewed with lung, soft tissue, and bone w indows. Reconstructed coronal and sagittal MPR images reviewed. Delayed images for evaluation of the urinary system also acquired. All images stored on PACS. All CT scanners at this facility use dose modulation, iterative reconstruction, and/or weight based d osing when appropriate to reduce radiation dose to as low as reasonably achievable (ALARA). [facility]: Dose Right [facility]: CareDose [facility]: Dose Right [facility]: Teradose 4D [facility]: Optisense CONTRAST TYPE AND DOSE: contrast/concentration: Isovue 350.00 mg/ml; Total Contrast Delivered: 79.0 ml; Total Saline Delivered: 68.0 ml RENAL FUNCTION: GFR > 60. RADIATION DOSE: CT Rad equipment meets quality standard of care and radiation dose reduction techniq ues were employed. CTDIvol: 7.3 mGy. DLP: 403 mGy-cm.. LIMITATIONS: None. FINDINGS: LOWER CHEST: Large bilateral pleural effusions. Mild basilar compressive subsegmental ate lectasis. LIVER: Lobulated contour. No enhancing masses. No dilated ducts. SPLEEN: Normal size. No focal lesions. PANCREAS: No masses identified. No significant calcifications. No adjacent inflammation or peripancre atic fluid collections. Pancreatic duct not dilated. GALLBLADDER: Surgically absent. ADRENAL GLANDS: No significant masses. RIGHT KIDNEY AND URETER: Similar cysts identified. No solid masses identified. No calcified stones. N o hydronephrosis or hydroureter. LEFT KIDNEY AND URETER: Similar cysts identified. No solid masses identified. No calcified stones. No hydronephrosis or hydroureter. AORTA AND VESSELS: No aneurysm. No dissection. Renal arteries, SMA, celiac without significant stenos is. RETROPERITONEUM: No bulky retroperitoneal adenopathy. BOWEL AND PERITONEAL CAVITY: No dilated bowel. Scattered free fluid. APPENDIX: Not visualized. PELVIS: Similar free fluid. Unremarkable bladder. ABDOMINAL WALL: New 3 cm fluid containing right inguinal hernia. Rectus sheath repair. BONES: No acute findings. OTHER: No other significant finding. IMPRESSION: New 3 cm fluid containing right inguinal hernia. Similar bilateral pleural effusions and moderate ascites. TECHNICAL DOCUMENTATION: JOB ID: [id number] [place]-72 Quality ID # [id number]: Final reports with documentation of one or more dose reduction techniques (e.g., Au tomated exposure control, adjustment of the mA and/or kV according to patient size, use of iterative reconstruction technique) 2010 [employer]- All Rights Reserved Reading location - IP/workstation name: [employer]
[2019-11-27] MEDS ORDERED: MORPHINE SULFATE 10 MG/ML INJ IV ONE (15:32)
[2019-11-27 15:42] LABS: APPEARANCE,URINE CLEAR; BILIRUBIN,URINE NEGATIVE (NEGATIVE); COLOR,URINE AMBER; GLUCOSE, URINE NEGATIVE (NEGATIVE); KETONES,URINE NEGATIVE (NEGATIVE); LEUKOCYTE ESTERASE,URINE NEGATIVE (NEGATIVE); NITRITE,URINE NEGATIVE (NEGATIVE); PROTEIN,URINE 30 mg/dL (NEGATIVE); URINE SPECIFIC GRAVITY 1.033
--- NOTE | 2019-11-27 16:20 | RADIOLOGY REPORT (SQ) ---
EXAM DESCRIPTION: U/S ABDOMEN LTD W/DOPPLER COMPLETED DATE/TIME: 11/27/2019 4:02 pm REASON FOR STUDY: RLQ inguinal hernia increase in pain COMPARISON: Earlier CT TECHNIQUE: Dynamic and static grayscale images acquired of the localized site of clinical concern an d recorded on PACS. Additional selected color Doppler and spectral images recorded. SITE OF CONCERN: Right inguinal region LIMITATIONS: None. FINDINGS: 3.2 x 3.0 x 1 cm fluid collection visualized in the right inguinal region consistent with fluid containing hernia. OTHER: No other significant finding. IMPRESSION: 3.2 x 3.0 x 1 cm fluid collection visualized in the right inguinal region consistent wit h fluid containing hernia. TECHNICAL DOCUMENTATION: JOB ID: [id number] [place]-72 2010 [employer]- All Rights Reserved Reading location - IP/workstation name: [employer]
[2019-11-27] MEDS ORDERED: OXYCODONE HCL SR 10 MG TABLET PO ONE (18:30)
[2019-11-27 18:42] VITALS: BP 104/69
== END 2019-11-27 19:39 | disposition home or self-care (01) ==
LOC: ER 11:52
DX: K40.90 Unilateral inguinal hernia, without obstruction or gangrene, not specified as recurrent (principal); R10.31 Right lower quadrant pain; R53.1 Weakness; R14.0 Abdominal distension (gaseous); F17.210 Nicotine dependence, cigarettes, uncomplicated; J44.9 Chronic obstructive pulmonary disease, unspecified; Z88.3 Allergy status to other anti-infective agents; Z88.6 Allergy status to analgesic agent; Z88.0 Allergy status to penicillin
CPT/HCPCS: 99285; 96361; 51702; 96374; 96375; 36415; 85025; 80053; 81001; 76705; 93976; 74177; J3010; J2270; J2405; J7030

== ENCOUNTER 2019-11-28 17:56 | Emergency (ER) | payer OTHER, MEDICARE ==
--- NOTE | 2019-11-28 20:37 | ER Document Report ---
ED General - General Chief Complaint: Abdominal Pain Stated Complaint: POSSIBLE HERNIA PAIN Time Seen by Provider: 11/28/19 20:36 Primary Care Provider: JENNIFER ADAIR MD [ACTIVE STAFF] - Follow up as needed [facility] [[facility]] - Follow up as needed Mode of Arrival: Medic Information source: Patient TRAVEL OUTSIDE OF THE [place] IN LAST 30 DAYS: No - HPI Onset: Other - over the last several weeks Onset/Duration: Gradual Quality of pain: Sharp, Throbbing Severity: Moderate Pain Level: 4 Associated symptoms: None Exacerbated by: Other - walking, palpation of hernia area Similar symptoms previously: Yes Recently seen / treated by doctor: Yes - patient has been seen multiple times in this ER. Seen yesterday here. Notes: 69 year old male with a history of COPD on 2L O2, CHF, HTN, PVD, Cirrhosis, PTSD and a right inguinal hernia here for right inguinal hernia pain. The patient has been seen here in this ER for the same pain on 11/09/19, 11/25/19. and 11/27/19. The patient has had multiple imaging studies at this point (CT's and US's) all showing the same thing (fluid filled hernia). The patient denies a change in his pain. The patient was supposed to follow up in the Surgical Clinic today and he claims he called the clinic and they scheduled him for an appointment for next week. The patient was given Oxycodone yesterday in the ER. The patient is having bowel movements and he denies nausea/vomiting/fevers/chills/sweats. - Related Data Allergies/Adverse Reactions: vancomycin Allergy (Unknown, Verified 05/28/19 05:34) azithromycin Allergy (Verified 05/28/19 05:34) hydrocodone Allergy (Verified 11/09/19 16:38) Penicillins Allergy (Verified 05/28/19 05:34) acetaminophen Adverse Reaction (Verified 11/27/19 13:18) ketorolac [From Toradol] Adverse Reaction (Verified 07/19/19 13:40) Nausea Past Medical History - General Information source: Patient - Social History Smoking Status: Current Every Day Smoker Chew tobacco use (# tins/day): No Frequency of alcohol use: None Drug Abuse: None Family History: CAD, COPD, Hypertension Patient has suicidal ideation: No Patient has homicidal ideation: No - Past Medical History Cardiac Medical History: Reports: Hx Congestive Heart Failure - Chronic systolic congestive heart failure with ejection fraction of 25%;, Hx Heart Attack, Hx Hypertension, Hx Peripheral Vascular Disease - Chronic venous stasis Denies: Hx Atrial Fibrillation, Hx Hypercholesterolemia Pulmonary Medical History: Reports: Hx Asthma, Hx Bronchitis, Hx COPD, Hx Pneumonia, Hx Respiratory Failure Neurological Medical History: Denies: Hx Seizures Endocrine Medical History: Reports: Hx Hypothyroidism. Denies: Hx Diabetes Mellitus Type 1, Hx Diabetes Mellitus Type 2 GI Medical History: Reports: Hx Cirrhosis - Alcoholic cirrhosis, Hx Hiatal Hernia Musculoskeletal Medical History: Denies Hx Arthritis Psychiatric Medical History: Reports: Hx Post Traumatic Stress Disorder Denies: Hx Depression Past Surgical History: Reports: Hx Abdominal Surgery, Hx Cholecystectomy, Hx Orthopedic Surgery - Left knee surgery, left wrist surgery, Other - Gallbladder - Immunizations Immunizations up to date: Yes Hx Diphtheria, Pertussis, Tetanus Vaccination: Yes Hx Pneumococcal Vaccination: 09/14/16 Review of Systems - Review of Systems Constitutional: No symptoms reported EENT: No symptoms reported Cardiovascular: No symptoms reported Respiratory: No symptoms reported Gastrointestinal: Abdominal pain - right sided and right groin pain. denies: Nausea, Vomiting Genitourinary: No symptoms reported Male Genitourinary: No symptoms reported Musculoskeletal: No symptoms reported Skin: No symptoms reported Hematologic/Lymphatic: No symptoms reported Neurological/Psychological: No symptoms reported -: Yes All other systems reviewed and negative Physical Exam - Vital signs Vitals: Resp Pulse Ox 25 H 88 L 11/28/19 18:14 11/28/19 18:14 - Notes Notes: GENERAL: Well-appearing, well-nourished and in no acute distress. HEAD: Atraumatic, normocephalic. EYES: Pupils equal round and reactive to light, extraocular movements intact, sclera anicteric, conjunctiva are normal. ENT: TMs normal, nares patent, oropharynx clear without exudates. Moist mucous membranes. NECK: Normal range of motion, supple without lymphadenopathy or JVD. LUNGS: Breath sounds clear to auscultation bilaterally and equal. No wheezes rales or rhonchi. HEART: Regular rate and rhythm without murmurs, rubs or gallops. ABDOMEN: Soft, mild tenderness in RLQ and Right Groin, No Hernia palpated on exam when patient is laying flat but possible defect palpated, normoactive bowel sounds. No guarding, no rebound. No masses appreciated. EXTREMITIES: Normal range of motion, no pitting or edema. No clubbing or cyanosis. NEUROLOGICAL: Cranial nerves II through XII grossly intact. Normal speech, normal gait. PSYCH: Normal mood, normal affect. SKIN: Warm, Dry, normal turgor, no rashes or lesions noted. Course - Re-evaluation Re-evalutation: 11/28/19 21:57 The patient is here for continued pain from a right inguinal hernia which has been seen on multiple recent imaging studies. The patient has been told to follow up with Surgery and he claims he cannot get an appointment until next week with the Surgical Clinic. Patient was sleeping on my arrival to his ER room. Patient was told no further blood work or imaging is needed and that he just need to follow up with a Surgeon. The patient was given Tramadol in the ER today and he told the nursing staff "that doctor can shove Tramadol up his ass." The patient requested crutches to help him walk due to his hernia pain which he was given. - Vital Signs Vital signs: Temp Pulse Resp BP Pulse Ox 98.0 F 25 H 88 L 11/28/19 18:24 11/28/19 18:14 11/28/19 18:14 Discharge - Discharge Clinical Impression: Hernia Abdominal pain Qualifiers: Abdominal location: right lower quadrant Qualified Code(s): R10.31 - Right lower quadrant pain Condition: Stable Disposition: HOME, SELF-CARE Instructions: Abdominal Pain ([facility]), Hernia ([facility]) Additional Instructions: Follow up in the Surgical Clinic as scheduled or follow up with a different General Surgeon. Use a heating pad for pain as well as over the counter motrin. Use Tramadol for pain not well controlled. Prescriptions: Tramadol HCl [Ultram 50 mg Tablet] 50 mg PO Q8HP PRN #8 tab PRN Reason: [facility]errals: [facility] [[facility]] - Follow up as needed JENNIFER ADAIR MD [ACTIVE STAFF] - Follow up as needed
[2019-11-28] MEDS ORDERED: TRAMADOL HCL 50 MG TABLET PO ONE (20:54)
[2019-11-28 22:00] VITALS: BP 113/70
== END 2019-11-28 22:52 | disposition home or self-care (01) ==
LOC: ER 17:56
DX: K40.90 Unilateral inguinal hernia, without obstruction or gangrene, not specified as recurrent (principal); R10.31 Right lower quadrant pain; R10.9 Unspecified abdominal pain; J44.9 Chronic obstructive pulmonary disease, unspecified; Z99.81 Dependence on supplemental oxygen; I50.9 Heart failure, unspecified; I11.0 Hypertensive heart disease with heart failure; I73.9 Peripheral vascular disease, unspecified; Z79.899 Other long term (current) drug therapy; F17.200 Nicotine dependence, unspecified, uncomplicated
CPT/HCPCS: 99284

== ENCOUNTER 2019-11-29 20:25 | Emergency (ER) | payer OTHER, MEDICARE ==
--- NOTE | 2019-11-29 21:58 | ER Document Report ---
ED General - General Chief Complaint: Lower Abdominal Pain Stated Complaint: PAIN FROM HERNIA Time Seen by Provider: 11/29/19 21:56 [facility] [[facility] - Follow up as needed Information source: Patient Notes: triage note; pt comes to ed from home via ems stretcher from home for c/o persistent RLQ pain. pt seen in this ed yesterday for same. pt states he called surgeon and has appt for 1 week. pt states 2 episodes diarrhea today. pain worse with cough and abdominal movement. last tramadol at 1400 and states no relief with meds. pt aaox4, chronic aguilar placed by ed still inplace, patent and draining yellow urine. low abdominal tenderness with hernia palpable. 69-year-old male who goes by Paco arrives by EMS with continued right lower quadrant abdominal pain. I saw him on Thursday and advised Dr. Cote of his case. Patient was told to follow-up with Dr. Cote on Thursday morning. Evidently instead of this he came and saw Dr. Loyola in the ER who offered him some tramadol. He told Dr. Loyola "he could stick this up his ass." I will ar range for patient to get a KUB tonight and a CBC. Patient reports the OxyContin that he received on Thursday made him have a headache very drowsy and dry mouth. Patient reports yesterday" he had 2 bowel movements and then 3 bowel movements today that were like cow pies." Patient reports he is in severe distress but is watching the [employer] tournament in no distress. TRAVEL OUTSIDE OF THE [place] IN LAST 30 DAYS: No - HPI Onset: Last week - Related Data Allergies/Adverse Reactions: vancomycin Allergy (Unknown, Verified 11/29/19 20:46) azithromycin Allergy (Verified 11/29/19 20:46) hydrocodone Allergy (Verified 11/29/19 20:46) Penicillins Allergy (Verified 11/29/19 20:46) acetaminophen Adverse Reaction (Verified 11/29/19 20:46) ketorolac [From Toradol] Adverse Reaction (Verified 11/29/19 20:46) Nausea Home Medications: pt reports no changes form his last few visits. Past Medical History - General Information source: Patient - Social History Smoking Status: Current Some Day Smoker Cigarette use (# per day): Yes Chew tobacco use (# tins/day): No Smoking Education Provided: Yes Frequency of alcohol use: None Drug Abuse: None Lives with: Alone Family History: Reviewed & Not Pertinent, CAD, COPD, Hypertension Patient has suicidal ideation: No Patient has homicidal ideation: No - Past Medical History Cardiac Medical History: Reports: Hx Congestive Heart Failure - Chronic systolic CHF with EF 25%;, Hx Heart Attack, Hx Hypertension, Hx Peripheral Vascular Disease - Chronic venous stasis Denies: Hx Atrial Fibrillation, Hx Hypercholesterolemia Pulmonary Medical History: Reports: Hx Asthma, Hx Bronchitis, Hx COPD, Hx Pneumonia, Hx Respiratory Failure Neurological Medical History: Denies: Hx Seizures Endocrine Medical History: Reports: Hx Hypothyroidism. Denies: Hx Diabetes Mellitus Type 1, Hx Diabetes Mellitus Type 2 GI Medical History: Reports: Hx Cirrhosis - Alcoholic cirrhosis, Hx Hiatal Hernia Musculoskeletal Medical History: Denies Hx Arthritis Psychiatric Medical History: Reports: Hx Post Traumatic Stress Disorder Denies: Hx Depression Past Surgical History: Reports: Hx Abdominal Surgery, Hx Cholecystectomy, Hx Orthopedic Surgery - Left knee surgery, left wrist surgery, Other - Gallbladder - Immunizations Immunizations up to date: Yes Hx Diphtheria, Pertussis, Tetanus Vaccination: Yes Hx Pneumococcal Vaccination: 09/14/16 Review of Systems - Review of Systems Constitutional: No symptoms reported EENT: No symptoms reported Cardiovascular: No symptoms reported Respiratory: No symptoms reported Gastrointestinal: See HPI, Abdominal pain Genitourinary: No symptoms reported Male Genitourinary: No symptoms reported Musculoskeletal: No symptoms reported Skin: No symptoms reported Hematologic/Lymphatic: No symptoms reported Neurological/Psychological: No symptoms reported Physical Exam - Vital signs Vitals: Temp Pulse Resp BP Pulse Ox 97.3 F 73 20 118/66 100 11/29/19 20:46 11/29/19 20:46 11/29/19 20:46 11/29/19 20:46 11/29/19 20:46 Interpretation: Normal - General General appearance: Appears well In distress: None - HEENT Head: Normocephalic Eyes: Normal Conjunctiva: Normal Cornea: Normal Extraocular movements intact: Yes Eyelashes: Normal Pupils: PERRL Ears: Normal External canal: Normal Tympanic membrane: Normal Mouth/Lips: Normal Mucous membranes: Normal - Respiratory Respiratory status: No respiratory distress Chest status: Nontender Breath sounds: Normal Chest palpation: Normal - Cardiovascular Rhythm: Regular Heart sounds: Normal auscultation Murmur: No Friction rub: No Sher's crunch: No - Abdominal Inspection: Other - Right lower quadrant hernia but no distention Distension: No distension Bowel sounds: Hyperactive Tenderness: Tender - Right lower quadrant tenderness on palpation Organomegaly: No organomegaly - Genitourinary Tenderness: Nontender Cremasteric reflex: Normal Scrotum: Normal - Back Back: Normal - Extremities General upper extremity: Normal inspection General lower extremity: Normal inspection - Neurological Neuro grossly intact: Yes Cognition: Normal Orientation: AAOx4 Germaine Coma Scale Eye Opening: Spontaneous Germaine Coma Scale Verbal: Oriented Germaine Coma Scale Motor: Obeys Commands Germaine Coma Scale Total: 15 Speech: Normal Cranial nerves: Normal Cerebellar coordination: Normal Motor strength normal: LUE, RUE, LLE, RLE - Psychological Associated symptoms: Angry - Patient reports he is quite angry that he has to come back here and that he cannot get a appointment with Dr. Cote. He said "he called by telephone yesterday and that was for an appointment for next week." - Skin Skin Temperature: Warm Skin Moisture: Dry Course - Vital Signs Vital signs: Temp Pulse Resp BP Pulse Ox 97.3 F 73 20 118/66 100 11/29/19 20:46 11/29/19 20:46 11/29/19 20:46 11/29/19 20:46 11/29/19 20:46 - Laboratory Result Diagrams: 11/29/19 22:39 Laboratory results interpreted by me: 11/29/19 22:39 RBC 3.82 L Hgb 10.2 L Hct 30.9 L MCH 26.8 L RDW 19.3 H Lymph % (Auto) 9.4 L Seg Neutrophils % 81.9 H - Diagnostic Test Radiology reviewed: Reports reviewed Critical Care Note - Critical Care Note Total time excluding time spent on procedures (mins): 90 Comments: I advised patient to follow-up with Dr. Cote the surgeon tomorrow and to avoid returning to the ER and calling EMS for something that should be seen as an outpatient Discharge - Discharge Clinical Impression: Hernia, inguinal, right, Loose stools Abdominal pain Qualifiers: Abdominal location: unspecified location Qualified Code(s): R10.9 - Unspecified abdominal pain Condition: Good Disposition: HOME, SELF-CARE Additional Instructions: Follow-up with Dr. Cote surgeon as directed and return to ER for true emergencies only. Take your medicines as directed Prescriptions: Misoprostol [Cytotec 0.2 mg Tablet] 200 mcg PO BID #20 tablet [facility]: [facility] [[facility]] - Follow up as needed
[2019-11-29] MEDS ORDERED: OXYCODONE-ACETAMINOPHEN 5-325 MG TABLET PO ONE (22:48)
[2019-11-29 22:50] LABS: ABSOLUTE BASOPHILS # (AUTO) 0.1 10^3/uL (0.0-0.2); ABSOLUTE EOSINOPHILS # (AUTO) 0.1 10^3/uL (0.0-0.6); ABSOLUTE LYMPHOCYTES (AUTO) 0.9 10^3/uL (0.5-4.7); ABSOLUTE MONOCYTES (AUTO) 0.6 10^3/uL (0.1-1.4); ABSOLUTE NEUT (AUTO) 7.7 10^3/uL (1.7-8.2); BASOPHILS % (AUTO) 0.8 % (0-2); EOSINOPHILS % (AUTO) 1.2 % (0-6); HEMATOCRIT 30.9 % (37.9-51.0); HEMOGLOBIN 10.2 g/dL (13.5-17.0); LYMPHOCYTES % (AUTO) 9.4 % (13-45); MEAN CORPUSCULAR HEMOGLOBIN 26.8 pg (27.0-33.4); MEAN CORPUSCULAR HGB CONC 33.2 g/dL (32.0-36.0); MEAN CORPUSCULAR VOLUME 81 fl (80-97); MONOCYTES % (AUTO) 6.7 % (3-13); PLATELET COUNT 238 10^3/uL (150-450); RED BLOOD COUNT 3.82 10^6/uL (4.35-5.55); RED CELL DISTRIBUTION WIDTH 19.3 % (11.5-14.0); SEGMENTED NEUTROPHILS % (AUTO) 81.9 % (42-78); TOTAL CELLS COUNTED % (AUTO) 100 %; WHITE BLOOD COUNT 9.3 10^3/uL (4.0-10.5)
--- NOTE | 2019-11-29 23:25 | RADIOLOGY REPORT (SQ) ---
EXAM DESCRIPTION: XR ABDOMEN 1 VIEW (KUB) COMPLETED DATE/TME: 11/29/2019 21:58 CLINICAL HISTORY: 69 years, Male, rlq abd pain COMPARISON: None. NUMBER OF VIEWS: 2 TECHNIQUE: AP abdomen LIMITATIONS: None. FINDINGS: The bowel gas pattern is nonspecific. Evaluation for free air limited on a supine view. Large amount stool in the colon. Vascular calcifications. Catheter projects over the lower pelvic region. Status post cholecystectomy. Overlying surgical manda. IMPRESSION: Large amount of stool in the colon copyright 2010 [employer]- All Rights Reserved
[2019-11-30 09:48] VITALS: BP 111/75
== END 2019-11-30 10:05 | disposition home or self-care (01) ==
LOC: ER 20:25
DX: K40.90 Unilateral inguinal hernia, without obstruction or gangrene, not specified as recurrent (principal); R10.30 Lower abdominal pain, unspecified; R19.7 Diarrhea, unspecified; F17.210 Nicotine dependence, cigarettes, uncomplicated; I50.9 Heart failure, unspecified; I11.0 Hypertensive heart disease with heart failure; J44.9 Chronic obstructive pulmonary disease, unspecified; Z90.49 Acquired absence of other specified parts of digestive tract; Z88.0 Allergy status to penicillin; Z88.6 Allergy status to analgesic agent; I25.2 Old myocardial infarction
CPT/HCPCS: 36415; 74018; 85025; 99285

== ENCOUNTER 2019-12-01 16:20 | Inpatient (IN) | payer OTHER, MEDICARE ==
--- NOTE | 2019-12-01 17:11 | ER Document Report ---
ED Medical Screen (RME) - General Chief Complaint: Lower Abdominal Pain Stated Complaint: SHORTNESS OF BREATH Time Seen by Provider: 12/01/19 16:46 Primary Care Provider: PETERSON,KELLIE [Primary Care Provider] - Follow up as needed Mode of Arrival: Ambulatory TRAVEL OUTSIDE OF THE [place] IN LAST 30 DAYS: No - HPI Notes: 12/01/19 17:29 69-year-old male with a history of CHF, COPD with a right inguinal hernia presents emergency room for complaints of shortness of breath that is been getting progressively worse over the last few days. Denies any fevers or c hills. Patient also has a right inguinal hernia that he has an appointment for tomorrow with the surgeon. Patient has been giving himself breathing treatments. Denies any chest pain. Patient does wear 2 L of oxygen at home and does take Lasix routinely I have greeted and performed a rapid initial assessment of this patient. A comprehensive ED assessment and evaluation of the patient, analysis of test results and completion of the medical decision making process will be conducted by additional ED providers. PHYSICAL EXAMINATION: GENERAL: Well-appearing, well-nourished and in no acute distress. CV: s1, s2 regular LUNGS: Wheezing throughout - Related Data Allergies/Adverse Reactions: vancomycin Allergy (Unknown, Verified 12/01/19 16:32) azithromycin Allergy (Verified 12/01/19 16:32) hydrocodone Allergy (Verified 12/01/19 16:32) Penicillins Allergy (Verified 12/01/19 16:32) acetaminophen Adverse Reaction (Verified 12/01/19 16:32) ketorolac [From Toradol] Adverse Reaction (Verified 12/01/19 16:32) Nausea Home Medications: pt states no change since initial eval. Past Medical History - Social History Chew tobacco use (# tins/day): No Frequency of alcohol use: None Drug Abuse: None - Past Medical History Cardiac Medical History: Reports: Hx Congestive Heart Failure - Chronic systolic congestive heart failure with ejection fraction of 25%;, Hx Heart Attack, Hx Hypertension, Hx Peripheral Vascular Disease - Chronic venous stasis Denies: Hx Atrial Fibrillation, Hx Hypercholesterolemia Pulmonary Medical History: Reports: Hx Asthma, Hx Bronchitis, Hx COPD, Hx Pneumonia, Hx Respiratory Failure Neurological Medical History: Denies: Hx Seizures Endocrine Medical History: Reports: Hx Hypothyroidism. Denies: Hx Diabetes Mellitus Type 1, Hx Diabetes Mellitus Type 2 GI Medical History: Reports: Hx Cirrhosis - Alcoholic cirrhosis, Hx Hiatal Hernia Musculoskeltal Medical History: Denies Hx Arthritis Psychiatric Medical History: Reports: Hx Post Traumatic Stress Disorder Denies: Hx Depression Past Surgical History: Reports: Hx Abdominal Surgery, Hx Cholecystectomy, Hx Orthopedic Surgery - Left knee surgery, left wrist surgery, Other - Gallbladder - Immunizations Immunizations up to date: Yes Hx Diphtheria, Pertussis, Tetanus Vaccination: Yes Physical Exam - Vital signs Vitals: Temp Pulse Resp BP Pulse Ox 97.4 F 110 H 20 107/68 96 12/01/19 16:21 12/01/19 16:21 12/01/19 16:21 12/01/19 16:21 12/01/19 16:21 Course - Vital Signs Vital signs: Temp Pulse Resp BP Pulse Ox 97.4 F 110 H 20 107/68 96 12/01/19 16:21 12/01/19 16:21 12/01/19 16:21 12/01/19 16:21 12/01/19 16:21 Doctor's Discharge - Discharge [facility]: [facility] - Follow up as needed
[2019-12-01] MEDS ORDERED: IBUPROFEN 800 MG TABLET PO ONE (17:31)
[2019-12-01] MEDS ORDERED: IPRATROPIUM/ALBUTEROL 0.5-2.5 MG/3 ML AMPUL NEB ONE (17:31)
[2019-12-01] MEDS ORDERED: ONDANSETRON 4 MG TAB.RAPDIS PO ONE (17:32)
--- NOTE | 2019-12-01 17:36 | RADIOLOGY REPORT (SQ) ---
EXAM DESCRIPTION: CHEST SINGLE VIEW COMPLETED DATE/TIME: 12/01/2019 4:10 pm REASON FOR STUDY: sob COMPARISON: 11/26/2019 EXAM PARAMETERS: NUMBER OF VIEWS: One view. TECHNIQUE: Single frontal radiographic view of the chest acquired. RADIATION DOSE: NA LIMITATIONS: None. FINDINGS: LUNGS AND PLEURA: Lungs are hyperinflated. No focal consolidation. No pleural effusion o r pneumothorax. MEDIASTINUM AND HILAR STRUCTURES: No masses. Contour normal. HEART AND VASCULAR STRUCTURES: Improved but persistent mild pulmonary edema. Moderate cardiomegaly. BONES: No acute findings. HARDWARE: None in the chest. OTHER: No other significant finding. IMPRESSION: Mild pulmonary edema, improved from prior. Hyperinflated lungs which can be seen with o bstructive lung disease. TECHNICAL DOCUMENTATION: JOB ID: [id number] 2010 [employer]- All Rights Reserved Reading location - IP/workstation name: [email or web address]
[2019-12-01 17:51] LABS: ABSOLUTE BASOPHILS # (AUTO) 0.1 10^3/uL (0.0-0.2); ABSOLUTE EOSINOPHILS # (AUTO) 0.2 10^3/uL (0.0-0.6); ABSOLUTE LYMPHOCYTES (AUTO) 0.9 10^3/uL (0.5-4.7); ABSOLUTE MONOCYTES (AUTO) 0.5 10^3/uL (0.1-1.4); EOSINOPHILS % (AUTO) 2.8 % (0-6); HEMATOCRIT 31.9 % (37.9-51.0); HEMOGLOBIN 10.5 g/dL (13.5-17.0); LYMPHOCYTES % (AUTO) 11.4 % (13-45); MEAN CORPUSCULAR HEMOGLOBIN 26.6 pg (27.0-33.4); MEAN CORPUSCULAR HGB CONC 32.8 g/dL (32.0-36.0); MEAN CORPUSCULAR VOLUME 81 fl (80-97); MONOCYTES % (AUTO) 6.5 % (3-13); PLATELET COUNT 256 10^3/uL (150-450); RED BLOOD COUNT 3.93 10^6/uL (4.35-5.55); RED CELL DISTRIBUTION WIDTH 19.3 % (11.5-14.0); SEGMENTED NEUTROPHILS % (AUTO) 78.3 % (42-78); TOTAL CELLS COUNTED % (AUTO) 100 %; WHITE BLOOD COUNT 7.7 10^3/uL (4.0-10.5)
[2019-12-01 17:55] LABS: INTERNATIONAL RATION (INR) 1.39; PROTHROMBIN TIME 17.2 SEC (11.4-15.4)
[2019-12-01 17:56] LABS: PARTIAL THROMBOPLASTIN TIME 36.5 SEC (23.5-35.8)
[2019-12-01] MEDS ORDERED: MORPHINE SULFATE 10 MG/ML INJ IV ONE ×3 (18:04→20:00)
[2019-12-01 18:08] LABS: ALBUMIN 3.2 g/dL (3.5-5.0); ALKALINE PHOSPHATASE 172 U/L (38-126); ANION GAP 11 (5-19); ASPARTATE AMINO TRANSFERASE 23 U/L (17-59); BILIRUBIN,DIRECT 0.4 mg/dL (0.0-0.4); BILIRUBIN,TOTAL 0.7 mg/dL (0.2-1.3); BLOOD UREA NITROGEN 16 mg/dL (7-20); CALCIUM 8.2 mg/dL (8.4-10.2); CARBON DIOXIDE 27 mmol/L (22-30); CHLORIDE 100 mmol/L (98-107); GLUCOSE 131 mg/dL (75-110); POTASSIUM 3.8 mmol/L (3.6-5.0)
[2019-12-01] MEDS ORDERED: TRAMADOL HCL 50 MG TABLET PO ONE (18:08)
--- NOTE | 2019-12-01 18:23 | ER Document Report ---
ED Respiratory Problem - General Chief Complaint: Lower Abdominal Pain Stated Complaint: SHORTNESS OF BREATH Time Seen by Provider: 12/01/19 16:46 Mode of Arrival: Ambulatory Notes: Patient is a 69-year-old male with a history of COPD, on 2 L nasal cannula who presents to the emergency department with shortness of breath. Patient states that he is always short of breath, but states that his shortness of breath got worse today walking to the bathroom. He did not try to take any inhalers to help with his shortness of breath. States that his shortness of breath feels similar to his COPD/CHF exacerbations. Denies chest pain. Patient also has complaints of right groin pain due to his inguinal hernia. He has been seen multiple times for this issue. Patient states that he has an appointment with Dr. Cote tomorrow morning. Patient also had the [facility] call him for his appointment with Dr. Cote tomorrow. [facility] of breath, then he was told to call EMS. TRAVEL OUTSIDE OF THE [place] IN LAST 30 DAYS: No - Related Data Allergies/Adverse Reactions: vancomycin Allergy (Unknown, Verified 12/01/19 16:32) azithromycin Allergy (Verified 12/01/19 16:32) hydrocodone Allergy (Verified 12/01/19 16:32) Penicillins Allergy (Verified 12/01/19 16:32) acetaminophen Adverse Reaction (Verified 12/01/19 16:32) ketorolac [From Toradol] Adverse Reaction (Verified 12/01/19 16:32) Nausea Home Medications: pt states no change since initial eval. Past Medical History - Social History Smoking Status: Unknown if Ever Smoked Chew tobacco use (# tins/day): No Frequency of alcohol use: None Drug Abuse: None Family History: Reviewed & Not Pertinent, CAD, COPD, Hypertension Patient has suicidal ideation: No Patient has homicidal ideation: No - Past Medical History Cardiac Medical History: Reports: Hx Congestive Heart Failure - Chronic systolic congestive heart failure with ejection fraction of 25%;, Hx Heart Attack, Hx Hypertension, Hx Peripheral Vascular Disease - Chronic venous stasis Denies: Hx Atrial Fibrillation, Hx Hypercholesterolemia Pulmonary Medical History: Reports: Hx Asthma, Hx Bronchitis, Hx COPD, Hx Pneumonia, Hx Respiratory Failure Neurological Medical History: Denies: Hx Seizures Endocrine Medical History: Reports: Hx Hypothyroidism. Denies: Hx Diabetes Mellitus Type 1, Hx Diabetes Mellitus Type 2 GI Medical History: Reports: Hx Cirrhosis - Alcoholic cirrhosis, Hx Hiatal Hernia Musculoskeletal Medical History: Denies Hx Arthritis Psychiatric Medical History: Reports: Hx Post Traumatic Stress Disorder Denies: Hx Depression Past Surgical History: Reports: Hx Abdominal Surgery, Hx Cholecystectomy, Hx Orthopedic Surgery - Left knee surgery, left wrist surgery, Other - Gallbladder - Immunizations Immunizations up to date: Yes Hx Diphtheria, Pertussis, Tetanus Vaccination: Yes Hx Pneumococcal Vaccination: 09/14/16 Review of Systems - Review of Systems Notes: REVIEW OF SYSTEMS: CONSTITUTIONAL : Denies recent illness. Denies recent unintentional weight loss. Denies fever, chills, or sweats. EENT: Denies eye, ear, throat, or mouth pain, discharge, or symptoms. Denies nasal or sinus congestion. CARDIOVASCULAR: Denies chest pain. RESPIRATORY: See HPI. GASTROINTESTINAL:See HPI. GENITOURINARY: Denies difficulty urinating, burning, blood in urine, urgency or frequency. MUSCULOSKELETAL: Denies neck and back pain. Denies joint pain or swelling. SKIN: Denies rash, itchiness, or lesions HEMATOLOGIC : Denies easy bruising or bleeding. LYMPHATIC: Denies swollen, painful, enlarged glands. NEUROLOGICAL: Denies no numbness or tingling denies weakness. Denies headache. Denies altered mental status. Denies alteration in speech. PSYCHIATRIC: Denies stress, anxiety, alteration in sleep patterns, or depression. All other systems reviewed and negative. Physical Exam - Vital signs Vitals: Temp Pulse Resp BP Pulse Ox 97.4 F 110 H 20 107/68 96 12/01/19 16:21 12/01/19 16:21 12/01/19 16:21 12/01/19 16:21 12/01/19 16:21 - Notes Notes: PHYSICAL EXAMINATION: GENERAL: Appears well, healthy, well-nourished, no acute distress. HEAD: Normocephalic, atraumatic. EYES: PERRL, conjunctiva normal, all extraocular movements intact, sclera nonicteric ENT: Moist mucous membranes. NECK: Supple, no noticeable swelling, redness, rash. Normal range of motion. LUNGS: Clear breath sounds in bilateral upper lobes. Diminished breath sounds in the bases CARDIOVASCULAR: S1-S2, regular rate, regular rhythm. Radial pulses 2+, normal. ABDOMEN: Normoactive bowel sounds. Soft, nontender, no guarding, no rebound tenderness, and no masses palpated. EXTREMITIES: Normal strength and range of motion, no pitting or edema. No cyanosis. NEUROLOGICAL: Moves all extremities upon command. Strength 5/5 in all extre mities. PSYCH: Normal mood, normal affect. SKIN: Warm, dry. No rash, lesions, ulcerations noted. Normal skin turgor. Course - Re-evaluation Re-evalutation: 12/01/19 18:36 Patient was given 2 mg of morphine and I was able to manually reduce his hernia. Patient was placed in a jockstrap splint to help keep hernia in place. Sounds have improved after DuoNeb treatment. 12/01/19 19:20 Chemistries are unremarkable. Patient's BNP is 13,900. His his last BNP was 2009, which was about 6 weeks ago. Hematology is normal, as did labs compared to labs from yesterday. It has now been quite sometime since the patient had a reduction of his hernia. Patient states that his pain is much better. Patient is still tachycardic, which I thought was because of his hernia pain. Since the patient does not have significant pain he is short of breath, patient will be sent for CT of the chest. 12/01/19 20:[address] August. Patient will be admitted to [facility]. - Vital Signs Vital signs: Temp Pulse Resp BP Pulse Ox 97.8 F 104 H 16 90/53 L 100 12/03/19 03:52 12/03/19 07:00 12/03/19 03:52 12/03/19 03:52 12/03/19 03:52 - Laboratory Result Diagrams: 12/03/19 05:34 12/03/19 05:34 Laboratory results interpreted by me: 12/01/19 12/01/19 12/01/19 17:30 17:30 17:30 RBC 3.93 L Hgb 10.5 L Hct 31.9 L MCH 26.6 L RDW 19.3 H Lymph % (Auto) 11.4 L Seg Neutrophils % 78.3 H PT APTT Glucose 131 H Calcium 8.2 L Alkaline Phosphatase 172 H NT-Pro-B Natriuret Pep 56125 H Albumin 3.2 L 12/01/19 17:30 RBC Hgb Hct MCH RDW Lymph % (Auto) Seg Neutrophils % PT 17.2 H APTT 36.5 H Glucose Calcium Alkaline Phosphatase NT-Pro-B Natriuret Pep Albumin Discharge - Discharge Clinical Impression: Right inguinal hernia CHF exacerbation Qualifiers: Heart failure type: unspecified Qualified Code(s): I50.9 - Heart failure, unspecified COPD (chronic obstructive pulmonary disease) Qualifiers: COPD type: unspecified COPD Qualified Code(s): J44.9 - Chronic obstructive pulmonary disease, unspecified Condition: Stable Disposition: ADMITTED INPATIENT Admitting Provider: Mata (Hospitalist) Unit Admitted: [facility]
[2019-12-01 18:29] LABS: TROPONIN I 0.034 ng/mL
[2019-12-01] MEDS ORDERED: FUROSEMIDE INJ/PF 40 MG/4 ML SDV IV ONE (20:08)
[2019-12-01] MEDS: FUROSEMIDE INJ/PF 20 MG/2 ML SDV IV ONE ×2 (20:10→20:16)
[2019-12-01 21:01] LABS: ARTERIAL BLOOD BASE EXCESS 0.4 mmol/L; ARTERIAL BLOOD H2CO3 1.05 mmol/L (1.05-1.35); ARTERIAL BLOOD O2 SATURATION 97.9 % (94-98); ARTERIAL BLOOD PCO2 34.9 mmHg (35-45); ARTERIAL BLOOD PH 7.46 (7.35-7.45); ARTERIAL BLOOD PO2 101.5 mmHg (80-100); ARTERIAL BLOOD TOTAL CO2 25.1 mmol/L (23-27)
[2019-12-01 21:02] LABS: ARTERIAL BLOOD FIO2 1L
[2019-12-01] MEDS ORDERED: PROMETHAZINE HCL INJ 25 MG/1 ML VIAL IV PRN (21:02)
[2019-12-01] MEDS ORDERED: MAGNESIUM HYDROXIDE SUSP 30 ML UDCUP PO PRN (21:02)
[2019-12-01] MEDS ORDERED: MAG HYDROX/AL HYDROX/SIMETH SUSP 30 ML UDCUP PO PRN (21:02)
[2019-12-01] MEDS ORDERED: LEVALBUTEROL HCL NEB 0.63 MG/3 ML AMPUL NEB PRN (21:10)
[2019-12-01] MEDS ORDERED: DIAZEPAM INJ 10 MG/2 ML DISP.SYRIN IV PRN (21:10)
[2019-12-01] MEDS ORDERED: INSULIN REG, HUMAN 100 UNIT/ML 3 ML VIAL (PYX) SUBCUT PRN (21:10)
[2019-12-01] MEDS ORDERED: NICOTINE 21 MG/24 HR PATCH.TD24 TD PRN (21:10)
[2019-12-01] MEDS ORDERED: CHLORPROMAZINE HCL INJ 25 MG/1 ML AMPULE IV PRN (21:10)
[2019-12-01] MEDS ORDERED: DIAZEPAM 5 MG TABLET PO PRN (21:11)
[2019-12-01] MEDS ORDERED: DEXTROSE 40% GEL 15 GM TUBE PO PRN ×2 (21:13)
[2019-12-01] MEDS ORDERED: GLUCAGON,HUMAN RECOMB 1 MG INJ IM PRN (21:13)
[2019-12-01] MEDS ORDERED: DEXTROSE 50%-WATER 25 GM/50 ML DISP.SYRIN IV PRN ×2 (21:13)
--- NOTE | 2019-12-01 21:47 | EKG REPORT ---
SEVERITY:- ABNORMAL ECG - SINUS TACHYCARDIA [Remains] MULTIPLE ATRIAL PREMATURE COMPLEXES [Remains] NONSPECIFIC T ABNORMALITIES, LATERAL LEADS [Remains] NO SIGNIFICANT CHANGE [Now Absent] BORDERLINE PROLONGED QT INTERVAL : Confirmed by: Lorenza Sandoval MD 01-Dec-2019 21:46:31
--- NOTE | 2019-12-01 22:06 | RADIOLOGY REPORT (SQ) ---
EXAM DESCRIPTION: CT CHEST ANGIOGRAPHY WITHOUT THEN WITH IV CONTRAST COMPLETED DATE/TME: 12/01/2019 19:27 CLINICAL HISTORY: 69 years, Male, shortness of breath COMPARISON: Prior CT from 07/18/2019 TECHNIQUE: Contrast enhanced CT chest was performed. Images were acquired after the uneventful administration of 100 mL of Omnipaque 350 intravenous contrast. MIPS were created. Images stored on PACS. All CT scanners at this facility use dose modulation, iterative reconstruction, and/or weight based dosing when appropriate to reduce radiation dose to as low as reasonably achievable (ALARA). [facility]: Dose Right [facility]: CareDose [facility]: Dose Right [facility]: Teradose 4D [facility]: [employer] LIMITATIONS: None. FINDINGS: Multifocal opacity is noted about the basilar segmental and subsegmental airways of both lower lobes with elements of bronchial wall thickening. Mild upper zone predominant emphysematous changes are noted. Moderate bilateral pleural effusions are noted along with bibasilar atelectasis. In addition, there is patchy groundglass opacity located within the periphery of the right upper lobe. The right pleural effusion appears similar to the previous study dated 07/18/2019; whereas, the left-sided pleural effusion appears increased. Mediastinal windows show coarse calcification within the right lobe of the thyroid gland, nonspecific. Several enlarged mediastinal and bilateral hilar lymph nodes are noted, fairly similar to the previous examination dated 07/18/2019. The largest is a subcarinal lymph node measuring 2.4 x 2.0 cm in size on image 82 of series 3. Calcifications are evident about the coronary vessels and thoracic aorta. The heart is enlarged. There is a trace pericardial effusion. The study is limited for the evaluation of pulmonary emboli secondary to excessive respiratory motion artifact. No filling defects are identified to the lobar level. Limited evaluation of the upper abdomen reveals reflux of intravenous contrast material into the intrahepatic IVC. The liver is diffusely nodular in contour. Several fluid density lesions are noted about both kidneys, incompletely assessed on this examination though most likely indicating multiple simple renal cysts. Postsurgical changes are noted about the stomach. The gallbladder is absent. A small amount of upper abdominal ascites is noted. Bone windows show no destructive osseous lesions. IMPRESSION: Limited study secondary to excessive respiratory motion artifact. No evidence of pulmonary embolism to the lobar level. Moderate bilateral pleural effusions, left larger than right. The left-sided pleural effusion appears increased from the previous exam dated 07/18/2019; whereas, the right-sided pleural effusion appears similar. Patchy groundglass opacity within the periphery of the right upper lobe. This could indicate an atypical infectious/inflammatory process, to include viral pneumonitis, or a focus of interstitial edema. Cardiomegaly with trace pericardial effusion. Cirrhotic appearing liver with small amount of upper abdominal ascites. TECHNICAL DOCUMENTATION: Quality ID # [id number]: Final reports with documentation of one or more dose reduction techniques (e.g., Automated exposure control, adjustment of the mA and/or kV according to patient size, use of iterative reconstruction technique) copyright 2010 [employer]- All Rights Reserved
[2019-12-01 22:49] LABS: CREATINE KINASE MB 2.4 ng/mL (<4.55); TROPONIN I 0.042 ng/mL
[2019-12-01 22:54] LABS: APPEARANCE,URINE CLEAR; BILIRUBIN,URINE NEGATIVE (NEGATIVE); COLOR,URINE STRAW; GLUCOSE, URINE NEGATIVE (NEGATIVE); KETONES,URINE NEGATIVE (NEGATIVE); LEUKOCYTE ESTERASE,URINE NEGATIVE (NEGATIVE); NITRITE,URINE NEGATIVE (NEGATIVE); PROTEIN,URINE NEGATIVE (NEGATIVE); URINE SPECIFIC GRAVITY 1.012; UROBILINOGEN,URINE NEGATIVE mg/dL (<2.0)
[2019-12-01] MEDS: NITROGLYCERIN 2% OINTMENT 1 GM PACKET TP SCH (23:05)
[2019-12-01] MEDS: HEPARIN SOD (PORCINE) 5,000 UNIT/ML 1 ML VIAL SUBCUT SCH (23:06)
[2019-12-01] MEDS: FAMOTIDINE 20 MG TABLET PO SCH (23:06)
[2019-12-01] MEDS: LEVALBUTEROL HCL NEB 1.25 MG/3 ML AMPUL NEB SCH (23:55)
[2019-12-01] MEDS: IPRATROPIUM BROMIDE 0.02% NEB 0.5 MG/2.5 ML AMPUL NEB SCH (23:55)
[2019-12-02] MEDS: NITROGLYCERIN 2% OINTMENT 1 GM PACKET TP SCH ×4 (00:42→17:16)
[2019-12-02] MEDS: BUMETANIDE INJ/PF 1 MG/4 ML SDV IV SCH ×3 (00:42→12:24)
[2019-12-02] MEDS ORDERED: LIDOCAINE 2% URO-JET 5 ML KIT ONE (00:58)
[2019-12-02] MEDS ORDERED: LIDOCAINE 2% URO-JET 5 ML KIT MM ONE (01:30)
[2019-12-02] MEDS ORDERED: INFLUENZA QUAD (6MOS+) 2019-20 VAC 0.5 ML SYR IM ONE (01:52)
[2019-12-02 04:53] LABS: ABSOLUTE BASOPHILS # (AUTO) 0.1 10^3/uL (0.0-0.2); ABSOLUTE EOSINOPHILS # (AUTO) 0.3 10^3/uL (0.0-0.6); ABSOLUTE LYMPHOCYTES (AUTO) 1.8 10^3/uL (0.5-4.7); ABSOLUTE MONOCYTES (AUTO) 0.9 10^3/uL (0.1-1.4); ABSOLUTE NEUT (AUTO) 5.7 10^3/uL (1.7-8.2); BASOPHILS % (AUTO) 0.8 % (0-2); HEMATOCRIT 31.2 % (37.9-51.0); HEMOGLOBIN 10.3 g/dL (13.5-17.0); MEAN CORPUSCULAR HEMOGLOBIN 26.5 pg (27.0-33.4); MEAN CORPUSCULAR HGB CONC 32.9 g/dL (32.0-36.0); MEAN CORPUSCULAR VOLUME 80 fl (80-97); MONOCYTES % (AUTO) 9.9 % (3-13); PLATELET COUNT 227 10^3/uL (150-450); RED BLOOD COUNT 3.88 10^6/uL (4.35-5.55); RED CELL DISTRIBUTION WIDTH 19.5 % (11.5-14.0); SEGMENTED NEUTROPHILS % (AUTO) 65.3 % (42-78); TOTAL CELLS COUNTED % (AUTO) 100 %; WHITE BLOOD COUNT 8.7 10^3/uL (4.0-10.5)
[2019-12-02 05:11] LABS: ANION GAP 11 (5-19); BLOOD UREA NITROGEN 16 mg/dL (7-20); CALCIUM 8.1 mg/dL (8.4-10.2); CARBON DIOXIDE 25 mmol/L (22-30); CHLORIDE 103 mmol/L (98-107); CHOLESTEROL 109.09 mg/dL (0-200); GLUCOSE 99 mg/dL (75-110); POTASSIUM 3.6 mmol/L (3.6-5.0); TRIGLYCERIDES 62 mg/dL (<150)
[2019-12-02 05:22] LABS: DIRECT LDL 76 mg/dL (<100)
[2019-12-02 05:23] LABS: CREATINE KINASE MB 2.55 ng/mL (<4.55); TROPONIN I 0.049 ng/mL
[2019-12-02 05:27] LABS: FREE T3 4.58 pg/mL (2.77-5.27)
[2019-12-02 05:41] LABS: THYROID STIMULATING HORMONE 13.7 uIU/mL (0.47-4.68)
[2019-12-02] MEDS ORDERED: CHLORPROMAZINE HCL INJ 25 MG/1 ML AMPULE ONE (06:01)
[2019-12-02] MEDS: HEPARIN SOD (PORCINE) 5,000 UNIT/ML 1 ML VIAL SUBCUT SCH ×3 (06:06→22:35)
[2019-12-02] MEDS: MORPHINE SULFATE 10 MG/ML INJ IV PRN ×2 (06:07→15:28)
--- NOTE | 2019-12-02 07:17 | PDOC H&P ---
History of Present Illness Admission Date/PCP: 12/01/2019 20:15 [facility] Patient complains of: Dyspnea History of Present Illness: DURAN TELLES is a 69 year old male who presented to the emergency room with acute dyspnea. He admits being slightly more short of breath than usual over the last 3 days but suddenly developed severe dyspnea, markedly worsened on exertion, associated with orthopnea and accompanied by air hunger just prior to coming to the emergency room. [facility] called [facility] to report his symptoms and was instructed to call EMS for transportation to the ER. He denied other associated or accompanying signs and symptoms. He admits numerous prior similar episodes related to chronic systolic congestive heart failure and chronic (oxygen dependent) obstructive pulmonary disease exacerbations. He has not identified any additional aggravating or ameliorating factors for his dyspnea. In the emergency room he was found to have a markedly elevated BNP with evidence of pulmonary edema on his chest x-ray. He was also noted to have a recurrence of his right inguinal hernia which was reduced without significant improvement in his overall status. His respiratory status and vital signs improved after receiving low-dose morphine. He was subsequently admitted to the [facility] for further evaluation and treatment of his acute pulmonary edema. Past Medical History Cardiac Medical History: Reports: Congestive Heart Failure - Chronic systolic congestive heart failure with ejection fraction of 25%;, Coronary Artery Disease, Myocardial Infarction, Hypertension, Peripheral Vascular Disease - Chronic venous stasis Denies: Atrial Fibrillation, DVT, Hyperlipidema, Pulmonary Embolism Pulmonary Medical History: Reports: Asthma, Bronchitis, Chronic Obstructive Pulmonary Disease (COPD), Pneumonia, Respiratory Failure EENT Medical History: Denies: Cataracts, Ears - Hearing aids Neurological Medical History: Denies: Hemorrhagic CVA, Ischemic CVA, Seizures Endocrine Medical History: Reports: Hypothyroidism Denies: Diabetes Mellitus Type 1, Diabetes Mellitus Type 2, Hyperthyroidism Renal/ Medical History: Denies: Chronic Kidney Disease, Nephrolithiasis Malignancy Medical History: Reports: None GI Medical History: Reports: Cirrhosis - Alcoholic cirrhosis, Hiatal Hernia, Other - Right inguinal hernia Denies: Crohn's Disease, Hepatitis, Peptic Ulcer Disease, Ulcerative Colitis Musculoskeltal Medical History: Denies: Arthritis, Gout Skin Medical History: Denies: Eczema, Psoriasis Psychiatric Medical History: Reports: Alcohol Dependency, Post Traumatic Stress Disorder, Tobacco Dependency Denies: Depression, Substance Abuse Hematology: Reports: Anemia - Chronic Denies: Bleeding Tendencies Infectious Medical History: Reports: None Past Surgical History Past Surgical History: Reports: Cholecystectomy, Orthopedic Surgery - Left knee surgery, left wrist surgery Social History Information Source: Patient Lives with: Alone Smoking Status: Current Every Day Smoker Electronic Cigarette use?: No Frequency of Alcohol Use: Heavy Hx Recreational Drug Use: No Drugs: None Hx Prescription Drug Abuse: No - Advance Directive Resuscitation Status: Full Code Surrogate healthcare decision maker:: Reina Liban Family History Family History: CAD, COPD, Hypertension. denies: DM, Malignancy Parental Family History Reviewed: Yes Children Family History Reviewed: No Sibling(s) Family History Reviewed.: Yes Medication/Allergy Home Medications: Budesonide/Formoterol Fumarate [Symbicort HFA 160-4.5 mcg Inhaler 6 gm] 2 puff IH BID 10/16/19 Folic Acid [Folvite 1 mg Tablet] 1 mg PO DAILY 10/16/19 Gabapentin [Neurontin 300 mg Capsule] 1,200 mg PO Q8 10/16/19 Ketoconazole 1 applic TOP TIDP PRN 10/16/19 Tramadol HCl [Ultram 50 mg Tablet] 100 mg PO Q8HP PRN 10/16/19 Cyanocobalamin (Vitamin B-12) [Vitamin B-12 Inj 1000 Mcg/1 ml Vial] 1,000 mcg IM .MONTHLY 12/01/19 Metoprolol Tartrate [Lopressor 25 mg Tablet] 12.5 mg PO BID 12/01/19 Simvastatin [Zocor 40 mg Tablet] 80 mg PO QHS 12/01/19 Allergies/Adverse Reactions: vancomycin Allergy (Unknown, Verified 12/01/19 16:32) azithromycin Allergy (Verified 12/01/19 16:32) hydrocodone Allergy (Verified 12/01/19 16:32) Penicillins Allergy (Verified 12/01/19 16:32) acetaminophen Adverse Reaction (Verified 12/01/19 16:32) ketorolac [From Toradol] Adverse Reaction (Verified 12/01/19 16:32) Nausea Review of Systems Constitutional: ABSENT: chills, fever(s) Eyes: ABSENT: visual disturbances, other - Eye pain Ears: PRESENT: other - Ear pain. ABSENT: hearing changes Nose, Mouth, and Throat: ABSENT: headache(s), sore throat Cardiovascular: PRESENT: as per HPI, dyspnea on exertion, orthropnea. ABSENT: chest pain, edema, palpitations Respiratory: PRESENT: dyspnea. ABSENT: cough Gastrointestinal: PRESENT: abdominal pain - Right inguinal pain related to hernia. ABSENT: constipation, diarrhea, nausea, vomiting Genitourinary: ABSENT: dysuria, hematuria Musculoskeletal: ABSENT: back pain, joint swelling, muscle weakness Integumentary: ABSENT: diaphoresis, pruritus, rash Neurological: ABSENT: confusion, convulsions, focal weakness, memory loss, syncope Psychiatric: ABSENT: anxiety, depression Endocrine: ABSENT: cold intolerance, heat intolerance, polydipsia, polyphagia, polyuria Hematologic/Lymphatic: ABSENT: easy bleeding, easy bruising Allergic/Immunologic: ABSENT: seasonal rhinorrhea Physical Exam Vital Signs: Temp Pulse Resp BP Pulse Ox 97.4 F 110 H 23 H 106/83 96 12/01/19 16:21 12/01/19 16:21 12/01/19 18:01 12/01/19 18:01 12/01/19 16:21 Intake & Output 11/29/19 11/30/19 12/01/19 23:59 23:59 23:59 Weight 73.2 kg General appearance: PRESENT: cooperative, mild distress - Secondary to dyspnea Head exam: PRESENT: atraumatic, normocephalic Eye exam: ABSENT: conjunctival injection, scleral icterus Ear exam: PRESENT: normal external ear exam. ABSENT: bleeding, drainage Mouth exam: PRESENT: dry mucosa, neck supple Neck exam: PRESENT: JVD - Bilaterally at 30 degrees elevation. ABSENT: thyromegaly, tracheal deviation Respiratory exam: PRESENT: decreased breath sounds - Generally moderately decreased breath sounds throughout all lung [place]eg[place] with marked decreased breath sounds in the lower one third of the bilateral lung [place], prolonged expiratory phas - Moderately prolonged expiratory phase in all [place]eg[place], rales - Fine rales lower one third of both lung [place], symmetrical, tachypnea, wheezes - Minimal expiratory wheezes noted in all [place] Cardiovascular exam: PRESENT: RRR, tachycardia. ABSENT: clicks, gallop, rubs Pulses: PRESENT: normal radial pulses, normal dorsalis pedis pul Vascular exam: PRESENT: normal capillary refill. ABSENT: pallor GI/Abdominal exam: PRESENT: normal bowel sounds, soft, tenderness - Right inguinal tenderness is present on palpation., other - Right inguinal hernia is noted to be easily reducible Rectal exam: PRESENT: deferred Gentrourinary exam: ABSENT: scrotal swelling, testicular tenderness Extremities exam: PRESENT: +1 edema - Bilateral pretibial edema noted. ABSENT: joint swelling, pedal edema Musculoskeletal exam: ABSENT: deformity, dislocation Neurological exam: PRESENT: alert, oriented to person, oriented to place, oriented to time, oriented to situation, CN II-XII grossly intact. ABSENT: motor sensory deficit Psychiatric exam: PRESENT: appropriate affect, normal mood Skin exam: PRESENT: dry, intact, warm. ABSENT: jaundice, rash, urticaria Results Laboratory Results: 12/01/19 17:30 12/01/19 17:30 12/01/19 12/01/19 17:30 17:30 WBC 7.7 RBC 3.93 L Hgb 10.5 L Hct 31.9 L MCV 81 MCH 26.6 L MCHC 32.8 RDW 19.3 H Plt Count 256 Seg Neutrophils % 78.3 H Sodium 137.5 Potassium 3.8 Chloride 100 Carbon Dioxide 27 Anion Gap 11 BUN 16 Creatinine 0.73 Est GFR ( Amer) > 60 Glucose 131 H Calcium 8.2 L Total Bilirubin 0.7 AST 23 Alkaline Phosphatase 172 H Total Protein 7.0 Albumin 3.2 L 12/01/19 17:30 Troponin I 0.034 NT-Pro-B Natriuret Pep [id number] H Impressions: Chest X-Ray 12/01/19 17:00 IMPRESSION: Mild pulmonary edema, improved from prior. Hyperinflated lungs which can be seen with obstructive lung disease. Assessment and Plan - Diagnosis (1) Pulmonary edema Qualifiers: Chronicity: acute Qualified Code(s): J81.0 - Acute pulmonary edema Is this a current diagnosis for this admission?: Yes (2) Acute on chronic systolic congestive heart failure, NYHA class 3 Is this a current diagnosis for this admission?: Yes (3) COPD (chronic obstructive pulmonary disease) Qualifiers: COPD type: unspecified COPD Qualified Code(s): J44.9 - Chronic obstructive pulmonary disease, unspecified Is this a current diagnosis for this admission?: Yes (4) Hypertension Qualifiers: Hypertension type: essential hypertension Qualified Code(s): I10 - Es sential (primary) hypertension Is this a current diagnosis for this admission?: Yes (5) Hypothyroidism Qualifiers: Hypothyroidism type: unspecified Qualified Code(s): E03.9 - Hypothyroidism, unspecified Is this a current diagnosis for this admission?: Yes (6) Diabetes mellitus type 2 in nonobese Is this a current diagnosis for this admission?: Yes (7) Cirrhosis of liver Qualifiers: Hepatic cirrhosis type: alcoholic cirrhosis Is this a current diagnosis for this admission?: Yes (8) Hernia, inguinal, right Is this a current diagnosis for this admission?: Yes (9) Alcohol use disorder, severe, dependence Is this a current diagnosis for this admission?: Yes (10) Tobacco use disorder, severe, dependence Is this a current diagnosis for this admission?: Yes - Plan Summary Summary: Patient will be admitted to the [facility] where he will receive usual supportive and symptomatic cares. His acute pulmonary edema will be addressed by administering morphine sulfate 2 mg IV every 1 hour as needed for severe dyspnea. He will also be treated with Bumex 1 mg IV every 6 hours. He will receive supplemental oxygen with the use of noninvasive airway pressure support devices such as BiPAP if needed maintain an adequate oxygen saturation level. A surgical consultation with Dr. Cote will be obtained for evaluation of the patient's right inguinal hernia. CBCs, metabolic profiles, magnesium levels and arterial blood gases will be obtained as needed. Chest x-ray will be repeated if needed. Serial cardiac enzymes will be obtained. Patient will be continued on his usual medical regiment as appropriate and available per formulary. Patient will be on a cardiac and diabetic restricted diet. A hemoglobin A1c, thyroid profile and a lipid profile will be obtained. Cardiology consultation with Dr. Sandoval will be obtained. Patient will be observed for alcohol withdrawal symptoms and will be treated with scheduled Valium orally and Valium 10 mg IV every 1 hour as needed for severe tremors/anxiety/agitation. Patient will receive Thorazine 25 mg IV every 8 hours as needed for hallucinations. A nicotine replacement patch will be available for the patient's use, if desired. - Time Time Spent with patient: 15-24 minutes Smoking Cessation Education: 3 to 10 minutes Medications reviewed and adjusted accordingly: Yes Anticipated discharge: Home with Homehealth - Inpatient Certification Based on my medical assessment, after consideration of the patient's comorbidities, presenting symptoms, or acuity I expect that the services needed warrant INPATIENT care.: Yes I certify that my determination is in accordance with my understanding of Medicare's requirements for reasonable and necessary INPATIENT services [42 CFR 412.3e].: Yes Medical Necessity: Significant Comorbidiites Make Outpatient Treatment Too Risky, Need Close Monitoring Due to Risk of Patient Decompensation, Need For Continuous Telemetry Monitoring, Risk of Complication if Not Cared For in Hospital, Risk of Diagnosis Which Will Require Inpatient Eval/Care/Monitoring
[2019-12-02] MEDS: BUDESONIDE NEB 0.5 MG/2 ML AMPUL NEB SCH ×2 (08:27→21:10)
[2019-12-02] MEDS: IPRATROPIUM BROMIDE 0.02% NEB 0.5 MG/2.5 ML AMPUL NEB SCH ×2 (08:27→16:13)
[2019-12-02] MEDS: LEVALBUTEROL HCL NEB 1.25 MG/3 ML AMPUL NEB SCH ×3 (08:27→21:11)
[2019-12-02] MEDS: DOCUSATE SODIUM 100 MG CAPSULE PO SCH (09:35)
[2019-12-02] MEDS: FAMOTIDINE 20 MG TABLET PO SCH ×2 (09:35→22:35)
[2019-12-02 11:10] LABS: CREATINE KINASE MB 2.33 ng/mL (<4.55); TROPONIN I 0.044 ng/mL
--- NOTE | 2019-12-02 14:13 | PDOC CONSULTATION ---
Consultation Consult Date: 12/02/19 Provider Consulted: JENNIFER ADAIR Consult reason:: Right inguinal hernia History of Present Illness Admission Date/PCP: 12/01/19 20:24 [facility] History of Present Illness: DURAN LOUIE is a 69 year old male admitted for congestive heart failure an incidentally noted to have a right inguinal hernia. Patient denies any nausea vomiting more significant pains in the right inguinal area. Patient appears short of breath and mental status somewhat decreased. Unable to get a very good history. The hernia apparently was incarcerated and reduced in the ED. Past Medical History Cardiac Medical History: Reports: Congestive Heart Failure - Chronic systolic congestive heart failure with ejection fraction of 25%;, Coronary Artery Disease, Myocardial Infarction, Hypertension, Peripheral Vascular Disease - Chronic venous stasis Denies: Atrial Fibrillation, DVT, Hyperlipidema, Pulmonary Embolism Pulmonary Medical History: Reports: Asthma, Bronchitis, Chronic Obstructive Pulmonary Disease (COPD), Pneumonia, Respiratory Failure EENT Medical History: Denies: Cataracts, Ears - Hearing aids Neurological Medical History: Denies: Hemorrhagic CVA, Ischemic CVA, Seizures Endocrine Medical History: Reports: Hypothyroidism Denies: Diabetes Mellitus Type 1, Diabetes Mellitus Type 2, Hyperthyroidism Renal/ Medical History: Denies: Chronic Kidney Disease, Nephrolithiasis Malignancy Medical History: Reports: None GI Medical History: Reports: Cirrhosis - Alcoholic cirrhosis, Hiatal Hernia, Other - Right inguinal hernia Denies: Crohn's Disease, Hepatitis, Peptic Ulcer Disease, Ulcerative Colitis Musculoskeltal Medical History: Denies: Arthritis, Gout Skin Medical History: Denies: Eczema, Psoriasis Psychiatric Medical History: Reports: Alcohol Dependency, Post Traumatic Stress Disorder, Tobacco Dependency Denies: Depression, Substance Abuse Hematology: Reports: Anemia - Chronic Denies: Bleeding Tendencies Infectious Medical History: Reports: None Past Surgical History Past Surgical History: Reports: Cholecystectomy, Orthopedic Surgery - Left knee surgery, left wrist surgery, Other - Gallbladder Social History Lives with: Alone Smoking Status: Current Every Day Smoker Electronic Cigarette use?: No Frequency of Alcohol Use: Heavy Hx Recreational Drug Use: No Drugs: None Hx Prescription Drug Abuse: No - Advance Directive Resuscitation Status: Full Code Family History Family History: CAD, COPD, Hypertension. denies: DM, Malignancy Parental Family History Reviewed: No Children Family History Reviewed: No Sibling(s) Family History Reviewed.: No Medication/Allergy Home Medications: Budesonide/Formoterol Fumarate [Symbicort HFA 160-4.5 mcg Inhaler 6 gm] 2 puff IH BID 10/16/19 Folic Acid [Folvite 1 mg Tablet] 1 mg PO DAILY 10/16/19 Gabapentin [Neurontin 300 mg Capsule] 1,200 mg PO Q8 10/16/19 Ketoconazole 1 applic TOP TIDP PRN 10/16/19 Tramadol HCl [Ultram 50 mg Tablet] 100 mg PO Q8HP PRN 10/16/19 Cyanocobalamin (Vitamin B-12) [Vitamin B-12 Inj 1000 Mcg/1 ml Vial] 1,000 mcg IM .MONTHLY 12/01/19 Metoprolol Tartrate [Lopressor 25 mg Tablet] 12.5 mg PO BID 12/01/19 Simvastatin [Zocor 40 mg Tablet] 80 mg PO QHS 12/01/19 Allergies/Adverse Reactions: vancomycin Allergy (Unknown, Verified 12/01/19 16:32) azithromycin Allergy (Verified 12/01/19 16:32) hydrocodone Allergy (Verified 12/01/19 16:32) Penicillins Allergy (Verified 12/01/19 16:32) acetaminophen Adverse Reaction (Verified 12/01/19 16:32) ketorolac [From Toradol] Adverse Reaction (Verified 12/01/19 16:32) Nausea Review of Systems ROS unobtainable: Due to mental status Physical Exam Vital Signs: Temp Pulse Resp BP Pulse Ox 97.8 F 118 H 15 97/53 L 85 L 12/02/19 11:19 12/02/19 11:19 12/02/19 11:19 12/02/19 11:19 12/02/19 11:19 Intake & Output 12/01/19 12/02/19 12/03/19 06:59 06:59 06:59 Intake Total 630 Output Total 900 Balance -270 Weight 69.9 kg 69.9 kg General appearance: PRESENT: mild distress Eye exam: PRESENT: conjunctiva pink Neck exam: PRESENT: full ROM Respiratory exam: PRESENT: decreased breath sounds Cardiovascular exam: PRESENT: RRR Pulses: PRESENT: normal radial pulses Vascular exam: PRESENT: normal capillary refill GI/Abdominal exam: PRESENT: other - incarcerated right inguinal hernia that i manually reduced. Rectal exam: PRESENT: deferred Neurological exam: PRESENT: awake - Somewhat but not very cooperative Psychiatric exam: PRESENT: agitated Skin exam: PRESENT: normal color, warm Results Laboratory Results: 12/02/19 03:57 12/02/19 03:57 12/01/19 12/01/19 12/01/19 17:30 17:30 20:42 WBC 7.7 RBC 3.93 L Hgb 10.5 L Hct 31.9 L MCV 81 MCH 26.6 L MCHC 32.8 RDW 19.3 H Plt Count 256 Seg Neutrophils % 78.3 H Carbonic Acid 1.05 HCO3/H2CO3 Ratio 22:1 ABG pH 7.46 H ABG pCO2 34.9 L ABG pO2 101.5 H ABG HCO3 24.0 ABG O2 Saturation 97.9 ABG Base Excess 0.4 FiO2 1L Sodium 137.5 Potassium 3.8 Chloride 100 Carbon Dioxide 27 Anion Gap 11 BUN 16 Creatinine 0.73 Est GFR ( Amer) > 60 Glucose 131 H Calcium 8.2 L Magnesium Total Bilirubin 0.7 AST 23 Alkaline Phosphatase 172 H Total Protein 7.0 Albumin 3.2 L Triglycerides Cholesterol LDL Cholesterol Direct VLDL Cholesterol HDL Cholesterol TSH Free T3 pg/mL Urine Color Urine Appearance Urine pH Ur Specific [place] Urine Protein Urine Glucose (UA) Urine Ketones Urine Blood Urine Nitrite Ur Leukocyte Esterase Urine WBC (Auto) Urine RBC (Auto) 12/01/19 12/02/19 12/02/19 22:30 03:57 03:57 WBC 8.7 RBC 3.88 L Hgb 10.3 L Hct 31.2 L MCV 80 MCH 26.5 L MCHC 32.9 RDW 19.5 H Plt Count 227 Seg Neutrophils % 65.3 Carbonic Acid HCO3/H2CO3 Ratio ABG pH ABG pCO2 ABG pO2 ABG HCO3 ABG O2 Saturation ABG Base Excess FiO2 Sodium 139.3 Potassium 3.6 Chloride 103 Carbon Dioxide 25 Anion Gap 11 BUN 16 Creatinine 0.79 Est GFR ( Amer) > 60 Glucose 99 Calcium 8.1 L Magnesium 1.4 L Total Bilirubin AST Alkaline Phosphatase Total Protein Albumin Triglycerides 62 Cholesterol 109.09 LDL Cholesterol Direct 76 VLDL Cholesterol 12.0 HDL Cholesterol 24 L TSH Free T3 pg/mL Urine Color STRAW Urine Appearance CLEAR Urine pH 5.0 Ur Specific [place] 1.012 Urine Protein NEGATIVE Urine Glucose (UA) NEGATIVE Urine Ketones NEGATIVE Urine Blood NEGATIVE Urine Nitrite NEGATIVE Ur Leukocyte Esterase NEGATIVE Urine WBC (Auto) 1 Urine RBC (Auto) 1 12/02/19 03:57 WBC RBC Hgb Hct MCV MCH MCHC RDW Plt Count Seg Neutrophils % Carbonic Acid HCO3/H2CO3 Ratio ABG pH ABG pCO2 ABG pO2 ABG HCO3 ABG O2 Saturation ABG Base Excess FiO2 Sodium Potassium Chloride Carbon Dioxide Anion Gap BUN Creatinine Est GFR ( Amer) Glucose Calcium Magnesium Total Bilirubin AST Alkaline Phosphatase Total Protein Albumin Triglycerides Cholesterol LDL Cholesterol Direct VLDL Cholesterol HDL Cholesterol TSH 13.70 H Free T3 pg/mL 4.58 Urine Color Urine Appearance Urine pH Ur Specific [place] Urine Protein Urine Glucose (UA) Urine Ketones Urine Blood Urine Nitrite Ur Leukocyte Esterase Urine WBC (Auto) Urine RBC (Auto) 12/01/19 12/01/19 12/01/19 17:30 22:01 22:01 Creatine Kinase 42 L CK-MB (CK-2) 2.40 Troponin I 0.034 0.042 NT-Pro-B Natriuret Pep [id number] H 12/02/19 12/02/19 12/02/19 03:57 03:57 09:58 Creatine Kinase 37 L 37 L CK-MB (CK-2) 2.55 Troponin I 0.049 NT-Pro-B Natriuret Pep 12/02/19 09:58 Creatine Kinase CK-MB (CK-2) 2.33 Troponin I 0.044 NT-Pro-B Natriuret Pep Impressions: Chest X-Ray 12/01/19 17:00 IMPRESSION: Mild pulmonary edema, improved from prior. Hyperinflated lungs which can be seen with obstructive lung disease. Chest/Abdomen CTA 12/01/19 19:27 IMPRESSION: Limited study secondary to excessive respiratory motion artifact. No evidence of pulmonary embolism to the lobar level. Moderate bilateral pleural effusions, left larger than right. The left-sided pleural effusion appears increased from the previous exam dated 07/18/2019; whereas, the right-sided pleural effusion appears similar. Patchy groundglass opacity within the periphery of the right upper lobe. This could indicate an atypical infectious/inflammatory process, to include viral pneumonitis, or a focus of interstitial edema. Cardiomegaly with trace pericardial effusion. Cirrhotic appearing liver with small amount of upper abdominal ascites. TECHNICAL DOCUMENTATION: Quality ID # [id number]: Final reports with documentation of one or more dose reduction techniques (e.g., Automated exposure control, adjustment of the mA and/or kV according to patient size, use of iterative reconstruction technique) copyright 2011 [employer]- All Rights Reserved Assessment & Plan - Diagnosis (1) Incarcerated right inguinal hernia Is this a current diagnosis for this admission?: Yes (2) COPD (chronic obstructive pulmonary disease) Qualifiers: COPD type: unspecified COPD Qualified Code(s): J44.9 - Chronic obstructive pulmonary disease, unspecified Is this a current diagnosis for this admission?: Yes (3) Hernia, inguinal, right Is this a current diagnosis for this admission?: Yes (4) Pulmonary edema Qualifiers: Chronicity: acute Qualified Code(s): J81.0 - Acute pulmonary edema Is this a current diagnosis for this admission?: Yes - Time Time Spent: 30 to 50 Minutes - Plan Summary Plan Summary: 69-year-old male with COPD, diabetes mellitus, hypertension, with CHF, noted to have incarcerated right inguinal hernia and it is not obstructing. I reduced the hernia and placed some rolled towel ont he hernia site underneath his tight underwear. Told nurse to make sure the towel is kept in place No evidence of nausea vomiting nor obstruction on CAT scan. Recommendations: The right inguinal hernia showed no evidence of obstruction at this time. Also the patient clinically is poor candidate for any surgical intervention at this time. If he develops evidence of obstructive symptoms like vomiting or abdominal distention then you can call us back and for us to reevaluate the patient. Otherwise, we would sign off but call back if there is any questions. You Can arrange Surgical clinic follow up with Dr Cote whom he is supposed to see upon discharge. I called his daughter Reina Louie on the phone and updated her as far as the hernia is concerned. I conveyed to her above plans. Her father is a DNR per her knowledge. She lives about 45 minutes away from the hospital and willing to come in if her Dad's condition worsens or any condition that her presence is needed.
--- NOTE | 2019-12-02 17:34 | PDOC PROGRESS REPORT ---
Subjective Progress Note for:: 12/02/19 Subjective:: DURAN TELLES is a 69 year old male who presented to the emergency room with acute dyspnea. He admits being slightly more short of breath than usual over the last 3 days but suddenly developed severe dyspnea, markedly worsened on exertion, associated with orthopnea and accompanied by air hunger just prior to coming to the emergency room. He called the [place] clinic to report his symptoms and was instructed to call EMS for transportation to the ER. He denied other associated or accompanying signs and symptoms. He admits numerous prior similar episodes related to chronic systolic congestive heart failure and chronic (oxygen dependent) obstructive pulmonary disease exacerbations. He has not identified any additional aggravating or ameliorating factors for his dyspnea. In the emergency room he was found to have a markedly elevated BNP with evidence of pulmonary edema on his chest x-ray. He was also noted to have a recurrence of his right inguinal hernia which was reduced without significant improvement in his overall status. His respiratory status and vital signs improved after receiving low-dose morphine. He was subsequently admitted to the IMCU for further evaluation and treatment of his acute pulmonary edema. 12/02/2019. No acute events overnight. Comfortably sitting up in apparent distress. Denies any fever, chills, nausea, vomiting, diarrhea, constipation or any urinary symptoms. Stating that he is feeling much better since admission. Reason For Visit: ACUTE PULMONARY EDEMA,ACUTE ON CHRONIC RESPIRATORY Physical Exam Vital Signs: Temp Pulse Resp BP Pulse Ox 100.0 F 62 20 90/68 L 90 L 12/02/19 16:03 12/02/19 16:03 12/02/19 16:03 12/02/19 16:03 12/02/19 16:03 Intake & Output 12/01/19 12/02/19 12/03/19 06:59 06:59 06:59 Intake Total 630 50 Output Total 900 2500 Balance -270 -2450 Weight 69.9 kg 69.9 kg General appearance: PRESENT: no acute distress, well-developed, well-nourished Head exam: PRESENT: atraumatic, normocephalic Respiratory exam: PRESENT: clear to auscultation rossy. ABSENT: rales, rhonchi, wheezes Cardiovascular exam: PRESENT: RRR. ABSENT: diastolic murmur, rubs, systolic murmur GI/Abdominal exam: PRESENT: normal bowel sounds, soft. ABSENT: distended, guarding, mass, organolmegaly, rebound, tenderness Neurological exam: PRESENT: alert, awake, oriented to person, oriented to place, oriented to time, oriented to situation, CN II-XII grossly intact. ABSENT: motor sensory deficit Results Laboratory Results: 12/02/19 03:57 12/02/19 03:57 12/01/19 12/01/19 12/01/19 17:30 17:30 20:42 WBC 7.7 RBC 3.93 L Hgb 10.5 L Hct 31.9 L MCV 81 MCH 26.6 L MCHC 32.8 RDW 19.3 H Plt Count 256 Seg Neutrophils % 78.3 H Carbonic Acid 1.05 HCO3/H2CO3 Ratio 22:1 ABG pH 7.46 H ABG pCO2 34.9 L ABG pO2 101.5 H ABG HCO3 24.0 ABG O2 Saturation 97.9 ABG Base Excess 0.4 FiO2 1L Sodium 137.5 Potassium 3.8 Chloride 100 Carbon Dioxide 27 Anion Gap 11 BUN 16 Creatinine 0.73 Est GFR ( Amer) > 60 Glucose 131 H Calcium 8.2 L Magnesium Total Bilirubin 0.7 AST 23 Alkaline Phosphatase 172 H Total Protein 7.0 Albumin 3.2 L Triglycerides Cholesterol LDL Cholesterol Direct VLDL Cholesterol HDL Cholesterol TSH Free T3 pg/mL Urine Color Urine Appearance Urine pH Ur Specific Metcalfe Urine Protein Urine Glucose (UA) Urine Ketones Urine Blood Urine Nitrite Ur Leukocyte Esterase Urine WBC (Auto) Urine RBC (Auto) 12/01/19 12/02/19 12/02/19 22:30 03:57 03:57 WBC 8.7 RBC 3.88 L Hgb 10.3 L Hct 31.2 L MCV 80 MCH 26.5 L MCHC 32.9 RDW 19.5 H Plt Count 227 Seg Neutrophils % 65.3 Carbonic Acid HCO3/H2CO3 Ratio ABG pH ABG pCO2 ABG pO2 ABG HCO3 ABG O2 Saturation ABG Base Excess FiO2 Sodium 139.3 Potassium 3.6 Chloride 103 Carbon Dioxide 25 Anion Gap 11 BUN 16 Creatinine 0.79 Est GFR ( Amer) > 60 Glucose 99 Calcium 8.1 L Magnesium 1.4 L Total Bilirubin AST Alkaline Phosphatase Total Protein Albumin Triglycerides 62 Cholesterol 109.09 LDL Cholesterol Direct 76 VLDL Cholesterol 12.0 HDL Cholesterol 24 L TSH Free T3 pg/mL Urine Color STRAW Urine Appearance CLEAR Urine pH 5.0 Ur Specific Metcalfe 1.012 Urine Protein NEGATIVE Urine Glucose (UA) NEGATIVE Urine Ketones NEGATIVE Urine Blood NEGATIVE Urine Nitrite NEGATIVE Ur Leukocyte Esterase NEGATIVE Urine WBC (Auto) 1 Urine RBC (Auto) 1 12/02/19 03:57 WBC RBC Hgb Hct MCV MCH MCHC RDW Plt Count Seg Neutrophils % Carbonic Acid HCO3/H2CO3 Ratio ABG pH ABG pCO2 ABG pO2 ABG HCO3 ABG O2 Saturation ABG Base Excess FiO2 Sodium Potassium Chloride Carbon Dioxide Anion Gap BUN Creatinine Est GFR ( Amer) Glucose Calcium Magnesium Total Bilirubin AST Alkaline Phosphatase Total Protein Albumin Triglycerides Cholesterol LDL Cholesterol Direct VLDL Cholesterol HDL Cholesterol TSH 13.70 H Free T3 pg/mL 4.58 Urine Color Urine Appearance Urine pH Ur Specific Metcalfe Urine Protein Urine Glucose (UA) Urine Ketones Urine Blood Urine Nitrite Ur Leukocyte Esterase Urine WBC (Auto) Urine RBC (Auto) 12/01/19 12/01/19 12/01/19 17:30 22:01 22:01 Creatine Kinase 42 L CK-MB (CK-2) 2.40 Troponin I 0.034 0.042 NT-Pro-B Natriuret Pep 45329 H 12/02/19 12/02/19 12/02/19 03:57 03:57 09:58 Creatine Kinase 37 L 37 L CK-MB (CK-2) 2.55 Troponin I 0.049 NT-Pro-B Natriuret Pep 12/02/19 09:58 Creatine Kinase CK-MB (CK-2) 2.33 Troponin I 0.044 NT-Pro-B Natriuret Pep Impressions: Chest X-Ray 12/01/19 17:00 IMPRESSION: Mild pulmonary edema, improved from prior. Hyperinflated lungs which can be seen with obstructive lung disease. Chest/Abdomen CTA 12/01/19 19:27 IMPRESSION: Limited study secondary to excessive respiratory motion artifact. No evidence of pulmonary embolism to the lobar level. Moderate bilateral pleural effusions, left larger than right. The left-sided pleural effusion appears increased from the previous exam dated 07/18/2019; whereas, the right-sided pleural effusion appears similar. Patchy groundglass opacity within the periphery of the right upper lobe. This could indicate an atypical infectious/inflammatory process, to include viral pneumonitis, or a focus of interstitial edema. Cardiomegaly with trace pericardial effusion. Cirrhotic appearing liver with small amount of upper abdominal ascites. TECHNICAL DOCUMENTATION: Quality ID # 436: Final reports with documentation of one or more dose reduction techniques (e.g., Automated exposure control, adjustment of the mA and/or kV according to patient size, use of iterative reconstruction technique) copyright 2011 [employer]- All Rights Reserved Assessment and Plan - Diagnosis (1) Acute and chronic respiratory failure Qualifiers: Respiratory failure complication: hypoxia Qualified Code(s): J96.21 - Acute and chronic respiratory failure with hypoxia Is this a current diagnosis for this admission?: Yes Plan: Most likely to acute CHF exacerbation located by underlying history of COPD. Continue telemetry, duo nebs, BiPAP, LABA, LABA, ICS, IV steroids. (2) Acute on chronic systolic congestive heart failure, NYHA class 3 Is this a current diagnosis for this admission?: Yes Plan: Acute systolic heart failure. Most like due to noncompliance. 01/06/2019. 2D echo LVEF less than 20%. Severe left ventricular hypokinesis. Moderately dilated left ventricle. RSVP 56%. [place] [address] up from baseline of 7000. Continue telemetry, strict in and out, cardiac diet, fluid restriction, IV d iuretics, beta-blockers, MILAGRO. Continue beta-sarina, uptitrate as tolerated. Continue MILAGRO, uptitrate as tolerated. May benefit from spironolactone. No recent echo available. Will order 2D echo. Dr. Comer from cardiology has been consulted. (3) Alcohol use disorder, severe, dependence Is this a current diagnosis for this admission?: Yes Plan: History of alcohol dependence. No sign of withdrawal. Continue DT precautions. (4) Chronic obstructive pulmonary disease with acute exacerbation Is this a current diagnosis for this admission?: Yes Plan: Plan as per #1. (5) Diabetes mellitus type 2 in nonobese Is this a current diagnosis for this admission?: Yes Plan: Continue diabetic diet, pre-meal, sliding scale and will insulin. Hypoglycemia protocol. Accu-Chek. (6) Hypertension Qualifiers: Hypertension type: essential hypertension Qualified Code(s): I10 - Essential (primary) hypertension Is this a current diagnosis for this admission?: Yes Plan: Continue current meds. Monitor vitals. Adjust meds as needed. Outpatient PCP follow-up. (7) Incarcerated right inguinal hernia Is this a current diagnosis for this admission?: Yes Plan: Has been evaluated by surgery. No surgical intervention indicated at this point. Outpatient surgery follow-up recommended. - Plan Summary Summary: Patient will be admitted to the [facility] where he will receive usual supportive and symptomatic cares. His acute pulmonary edema will be addressed by administering morphine sulfate 2 mg IV every 1 hour as needed for severe dyspnea. He will also be treated with Bumex 1 mg IV every 6 hours. He will receive supplemental oxygen with the use of noninvasive airway pressure support devices such as BiPAP if needed maintain an adequate oxygen saturation level. A surgical consultation with Dr. Cote will be obtained for evaluation of the patient's right inguinal hernia. CBCs, metabolic profiles, magnesium levels and arterial blood gases will be obtained as needed. Chest x-ray will be repeated if needed. Serial cardiac enzymes will be obtained. Patient will be continued on his usual medical regiment as appropriate and available per formulary. Patient will be on a cardiac and diabetic restricted diet. A hemoglobin A1c, thyroid profile and a lipid profile will be obtained. Cardiology consultation with Dr. Sandoval will be obtained. Patient will be observed for alcohol withdrawal symptoms and will be treated with scheduled Valium orally and Valium 10 mg IV every 1 hour as needed for severe tremors/anxiety/agitation. Patient will receive Thorazine 25 mg IV every 8 hours as needed for hallucinations. A nicotine replacement patch will be available for the patient's use, if desired.
[2019-12-02] MEDS: METOPROLOL TARTRATE 25 MG TABLET PO SCH (17:58)
[2019-12-02] MEDS: MIDODRINE HCL 5 MG TABLET PO SCH (17:59)
[2019-12-02] MEDS ORDERED: GABAPENTIN 300 MG CAPSULE PO SCH (22:00)
[2019-12-02] MEDS: GABAPENTIN 400 MG CAPSULE PO SCH (22:30)
[2019-12-02] MEDS: SIMVASTATIN 40 MG TABLET PO SCH (22:32)
[2019-12-03] MEDS: NITROGLYCERIN 2% OINTMENT 1 GM PACKET TP SCH ×4 (01:15→17:17)
[2019-12-03] MEDS: LEVALBUTEROL HCL NEB 1.25 MG/3 ML AMPUL NEB SCH ×4 (02:21→19:41)
[2019-12-03] MEDS: IPRATROPIUM BROMIDE 0.02% NEB 0.5 MG/2.5 ML AMPUL NEB SCH ×4 (02:21→19:41)
[2019-12-03 05:52] LABS: ABSOLUTE BASOPHILS # (AUTO) 0.1 10^3/uL (0.0-0.2); ABSOLUTE EOSINOPHILS # (AUTO) 0.2 10^3/uL (0.0-0.6); ABSOLUTE LYMPHOCYTES (AUTO) 1.6 10^3/uL (0.5-4.7); ABSOLUTE MONOCYTES (AUTO) 1.2 10^3/uL (0.1-1.4); ABSOLUTE NEUT (AUTO) 8.7 10^3/uL (1.7-8.2); BASOPHILS % (AUTO) 1.2 % (0-2); EOSINOPHILS % (AUTO) 1.6 % (0-6); HEMATOCRIT 32.6 % (37.9-51.0); HEMOGLOBIN 10.6 g/dL (13.5-17.0); LYMPHOCYTES % (AUTO) 13.3 % (13-45); MEAN CORPUSCULAR HEMOGLOBIN 26.2 pg (27.0-33.4); MEAN CORPUSCULAR HGB CONC 32.6 g/dL (32.0-36.0); MEAN CORPUSCULAR VOLUME 80 fl (80-97); PLATELET COUNT 160 10^3/uL (150-450); RED BLOOD COUNT 4.06 10^6/uL (4.35-5.55); RED CELL DISTRIBUTION WIDTH 19.1 % (11.5-14.0); SEGMENTED NEUTROPHILS % (AUTO) 73.9 % (42-78); TOTAL CELLS COUNTED % (AUTO) 100 %; WHITE BLOOD COUNT 11.8 10^3/uL (4.0-10.5)
[2019-12-03 06:05] LABS: ALBUMIN 2.7 g/dL (3.5-5.0); ALKALINE PHOSPHATASE 121 U/L (38-126); ANION GAP 7 (5-19); ASPARTATE AMINO TRANSFERASE 23 U/L (17-59); BILIRUBIN,TOTAL 0.6 mg/dL (0.2-1.3); BLOOD UREA NITROGEN 18 mg/dL (7-20); CALCIUM 7.1 mg/dL (8.4-10.2); CARBON DIOXIDE 30 mmol/L (22-30); CHLORIDE 101 mmol/L (98-107); GLUCOSE 140 mg/dL (75-110); POTASSIUM 3.6 mmol/L (3.6-5.0); TOTAL PROTEIN 5.9 g/dL (6.3-8.2)
[2019-12-03] MEDS ORDERED: RINGERS SOLUTION,LACTATED 1,000 ML IV ONE (06:30)
[2019-12-03] MEDS: HEPARIN SOD (PORCINE) 5,000 UNIT/ML 1 ML VIAL SUBCUT SCH ×3 (06:31→21:51)
[2019-12-03] MEDS: GABAPENTIN 400 MG CAPSULE PO SCH ×3 (06:31→21:51)
[2019-12-03] MEDS: BUDESONIDE NEB 0.5 MG/2 ML AMPUL NEB SCH ×2 (08:28→19:41)
[2019-12-03] MEDS: LISINOPRIL 5 MG TABLET PO SCH (09:48)
[2019-12-03] MEDS: METOPROLOL TARTRATE 25 MG TABLET PO SCH ×2 (09:48→17:15)
[2019-12-03] MEDS: MIDODRINE HCL 5 MG TABLET PO SCH ×3 (09:49→17:15)
[2019-12-03] MEDS: FAMOTIDINE 20 MG TABLET PO SCH ×2 (09:49→21:51)
[2019-12-03] MEDS: FOLIC ACID 1 MG TABLET PO SCH (09:49)
[2019-12-03] MEDS: DOCUSATE SODIUM 100 MG CAPSULE PO SCH (09:49)
--- NOTE | 2019-12-03 10:31 | PDOC PROGRESS REPORT ---
Subjective Progress Note for:: 12/03/19 Subjective:: DURAN TELLES is a 69 year old male who presented to the emergency room with acute dyspnea. He admits being slightly more short of breath than usual over the last 3 days but suddenly developed severe dyspnea, markedly worsened on exertion, associated with orthopnea and accompanied by air hunger just prior to coming to the emergency room. He called the [place] clinic to report his symptoms and was instructed to call EMS for transportation to the ER. He denied other associated or accompanying signs and symptoms. He admits numerous prior similar episodes related to chronic systolic congestive heart failure and chronic (oxygen dependent) obstructive pulmonary disease exacerbations. He has not identified any additional aggravating or ameliorating factors for his dyspnea. In the emergency room he was found to have a markedly elevated BNP with evidence of pulmonary edema on his chest x-ray. He was also noted to have a recurrence of his right inguinal hernia which was reduced without significant improvement in his overall status. His respiratory status and vital signs improved after receiving low-dose morphine. He was subsequently admitted to the IMCU for further evaluation and treatment of his acute pulmonary edema. 12/02/2019. No acute events overnight. Comfortably sitting up in apparent distress. Denies any fever, chills, nausea, vomiting, diarrhea, constipation or any urinary symptoms. Stating that he is feeling much better since admission. 12/03/2019. Overnight patient noted to be hypotensive and was given 1 L of IV fluids by well head pumper, this morning patient is sleeping easily arousable, concerned about right inguinal hernia, otherwise denies any chest pain, shortness of breath, lightheadedness, nausea, vomiting, diarrhea, constipation. Patient's right inguinal hernia has been evaluated by surgery, as per surgery note patient does not need any acute intervention as hernia still reducible and also patient is a poor candidate for any surgical intervention. Recommendation is to monitor and follow-up as outpatient with surgery clinic. Reason For Visit: ACUTE PULMONARY EDEMA,ACUTE ON CHRONIC RESPIRATORY Physical Exam Vital Signs: Temp Pulse Resp BP Pulse Ox 97.3 F 89 19 86/44 L 92 12/03/19 08:32 12/03/19 08:32 12/03/19 08:32 12/03/19 08:32 12/03/19 08:32 Intake & Output 12/02/19 12/03/19 12/04/19 06:59 06:59 06:59 Intake Total 579 777 9863 Output Total 900 3200 Balance -270 -2515 1000 Weight 69.9 kg 66.1 kg General appearance: PRESENT: no acute distress, well-developed, well-nourished Head exam: PRESENT: atraumatic, normocephalic Respiratory exam: PRESENT: crackles, decreased breath sounds, wheezes. ABSENT: rales, rhonchi Cardiovascular exam: PRESENT: RRR. ABSENT: diastolic murmur, rubs, systolic murmur GI/Abdominal exam: PRESENT: normal bowel sounds, soft. ABSENT: distended, guarding, mass, organolmegaly, rebound, tenderness Gentrourinary exam: PRESENT: other - Right inguinal hernia, reducible, nontender. Neurological exam: PRESENT: alert, awake, oriented to person, oriented to place, oriented to time, oriented to situation, CN II-XII grossly intact. ABSENT: motor sensory deficit Results Laboratory Results: 12/03/19 05:34 12/03/19 05:34 12/03/19 12/03/19 05:34 05:34 WBC 11.8 H RBC 4.06 L Hgb 10.6 L Hct 32.6 L MCV 80 MCH 26.2 L MCHC 32.6 RDW 19.1 H Plt Count 160 Seg Neutrophils % 73.9 Sodium 138.3 Potassium 3.6 Chloride 101 Carbon Dioxide 30 Anion Gap 7 BUN 18 Creatinine 0.85 Est GFR ( Amer) > 60 Glucose 140 H Calcium 7.1 L Total Bilirubin 0.6 AST 23 Alkaline Phosphatase 121 Total Protein 5.9 L Albumin 2.7 L 12/01/19 12/01/19 12/01/19 17:30 22:01 22:01 Creatine Kinase 42 L CK-MB (CK-2) 2.40 Troponin I 0.034 0.042 NT-Pro-B Natriuret Pep 86716 H 12/02/19 12/02/19 12/02/19 03:57 03:57 09:58 Creatine Kinase 37 L 37 L CK-MB (CK-2) 2.55 Troponin I 0.049 NT-Pro-B Natriuret Pep 12/02/19 09:58 Creatine Kinase CK-MB (CK-2) 2.33 Troponin I 0.044 NT-Pro-B Natriuret Pep Impressions: Chest X-Ray 12/01/19 17:00 IMPRESSION: Mild pulmonary edema, improved from prior. Hyperinflated lungs which can be seen with obstructive lung disease. Chest/Abdomen CTA 12/01/19 19:27 IMPRESSION: Limited study secondary to excessive respiratory motion artifact. No evidence of pulmonary embolism to the lobar level. Moderate bilateral pleural effusions, left larger than right. The left-sided pleural effusion appears increased from the previous exam dated 07/18/2019; whereas, the right-sided pleural effusion appears similar. Patchy groundglass opacity within the periphery of the right upper lobe. This could indicate an atypical infectious/inflammatory process, to include viral pneumonitis, or a focus of interstitial edema. Cardiomegaly with trace pericardial effusion. Cirrhotic appearing liver with small amount of upper abdominal ascites. TECHNICAL DOCUMENTATION: Quality ID # 436: Final reports with documentation of one or more dose reduction techniques (e.g., Automated exposure control, adjustment of the mA and/or kV according to patient size, use of iterative reconstruction technique) copyright 2011 [employer]- All Rights Reserved Assessment and Plan - Diagnosis (1) Hypotension Qualifiers: Hypotension type: other hypotension type Qualified Code(s): I95.89 - Other hypotension Is this a current diagnosis for this admission?: Yes Plan: This most likely due to severely reduced ejection fraction. There is no sign of systemic inflammatory response or sepsis. 01/06/2019. 2D echo LVEF less than 20%. Severe left ventricular hypokinesis. Moderately dilated left ventricle. RSVP 56%. [place] [address] up from baseline of 7000. Monitor vital status. Continue midodrine 5 mg p.o. 3 times daily uptitrate if needed. Continue MILAGRO inhibitors and beta-blockers, monitor vitals and uptitrate as possible. Cardiology consulted. Patient may benefit from LifeVest and cardiac intervention if possible. (2) Acute and chronic respiratory failure Qualifiers: Respiratory failure complication: hypoxia Qualified Code(s): J96.21 - Acute and chronic respiratory failure with hypoxia Is this a current diagnosis for this admission?: Yes Plan: Most likely to acute CHF exacerbation complicated by by underlying history of COPD. Mild leukocytosis and crackles on physical examination. Given history of multiple recent hospitalization will start on empiric IV antibiotics. Continue telemetry, duo nebs, BiPAP, LABA, LABA, ICS, IV steroids IV antibiotics. (3) Acute on chronic systolic congestive heart failure, NYHA class 3 Is this a current diagnosis for this admission?: Yes Plan: Acute systolic heart failure. Most like due to noncompliance. 01/06/2019. 2D echo LVEF less than 20%. Severe left ventricular hypokinesis. Moderately dilated left ventricle. RSVP 56%. [place] [address] up from baseline of 7000. Continue telemetry, strict in and out, cardiac diet, fluid restriction, IV diuretics, beta-blockers, MILAGRO. Continue beta-sarina, uptitrate as tolerated. Continue MILAGRO, uptitrate as tolerated. May benefit from spironolactone. No recent echo available. Will order 2D echo. Dr. Comer from cardiology has been consulted. (4) Alcohol use disorder, severe, dependence Is this a current diagnosis for this admission?: Yes Plan: History of alcohol dependence. No sign of withdrawal. Continue DT precautions. (5) Chronic obstructive pulmonary disease with acute exacerbation Is this a current diagnosis for this admission?: Yes Plan: Plan as per #1. (6) Diabetes mellitus type 2 in nonobese Is this a current diagnosis for this admission?: Yes Plan: Continue diabetic diet, pre-meal, sliding scale and will insulin. Hypoglycemia protocol. Accu-Chek. (7) Hypertension Qualifiers: Hypertension type: essential hypertension Qualified Code(s): I10 - Essential (primary) hypertension Is this a current diagnosis for this admission?: Yes Plan: History of hypertension but patient is noted to be hypotensive most likely due to severely severely reduced ejection fraction. Monitor vitals. (8) Incarcerated right inguinal hernia Is this a current diagnosis for this admission?: Yes Plan: Has been evaluated by surgery. No surgical intervention indicated at this point as hernia is not currently incarcerated. Patient is also very poor candidate due to underlying multiple comorbidities. Recommendation is to monitor and follow-up as outpatient with surgical clinic. Please refer to surgery note. - Plan Summary Summary: Patient will be admitted to the [facility] where he will receive usual supportive and symptomatic cares. His acute pulmonary edema will be addressed by administering morphine sulfate 2 mg IV every 1 hour as needed for severe dyspnea. He will also be treated with Bumex 1 mg IV every 6 hours. He will receive supplemental oxygen with the use of noninvasive airway pressure support devices such as BiPAP if needed maintain an adequate oxygen saturation level. A surgical consultation with Dr. Cote will be obtained for evaluation of the patient's right inguinal hernia. CBCs, metabolic profiles, magnesium levels and arterial blood gases will be obtained as needed. Chest x-ray will be repeated if needed. Serial cardiac enzymes will be obtained. Patient will be continued on his usual medical regiment as appropriate and available per formulary. Patient will be on a cardiac and diabetic restricted diet. A hemoglobin A1c, thyroid profile and a lipid profile will be obtained. Cardiology consultation with Dr. Sandoval will be obtained. Patient will be observed for alcohol withdrawal symptoms and will be treated with scheduled Valium orally and Valium 10 mg IV every 1 hour as needed for severe tremors/anxiety/agitation. Patient will receive Thorazine 25 mg IV every 8 hours as needed for hallucinations. A nicotine replacement patch will be available for the patient's use, if desired.
[2019-12-03] MEDS ORDERED: LEVOFLOXACIN 750 MG TABLET PO SCH (11:00)
[2019-12-03] MEDS: MORPHINE SULFATE 10 MG/ML INJ IV PRN ×3 (12:54→21:52)
[2019-12-03] MEDS: METHYLPREDNISOLONE INJ 40 MG/1 ML SDV IV SCH ×2 (13:27→21:51)
--- NOTE | 2019-12-03 14:41 | XCELERA REPORT ---
[address] [address] Transthoracic Echocardiogram Report Name: DURAN TELLES Age: 69 yrs Gender: Male : 1950 Patient Status: Inpatient Patient Location: [address] [place], [place] [id number] Study Date: 12/02/2019 08:21 PM Height: 67 in Weight: 154 lb BSA: 1.8 m2 Procedure: A two-dimensional transthoracic echocardiogram with color flow and Doppler was performed. The study was technically limited with all images being suboptimal in quality. Images were not obtained from all of the standard acoustic windows due to the limited scope of the study. Reason For Study: CHF History: CHF. Ordering Physician: ABRIL BELL Performed By: Yoselyn Calzada Interpretation Summary The study was technically limited with all images being suboptimal in quality. Images were not obtained from all of the standard acoustic windows due to the limited scope of the study. CHF The left ventricle is moderately dilated. There is normal left ventricular wall thickness. No True apical 2 chamber views obtained.Hence cannot comment on the apical anterior , the basal anterior, the basal inferior and apical inferior chin.The mid anterior , the mid inferior and the rest of the LV chin are severely hypokinetic.LVEF is severely reduced at 20% Doppler measurements suggest impaired left ventricular relaxation, which is associated with grade I/IV or mild diastolic dysfunction : By tissue doppler. There is no thrombus. Cannot assess ASD,VSD , or PFO. The right ventricle is moderately dilated. The right ventricle is not well visualized secondary to technical limitations The right atrium is mild to moderately dilated. The left atrium is moderately dilated. There is no evidence of mitral valve prolapse. There is no vegetation seen on the mitral valve. There is no mitral valve stenosis. There is a trace amount of mitral regurgitation There is no aortic valve stenosis There is a trace to mild amount of aortic regurgitation There is no aortic valvular vegetation. There is moderate pulmonary hypertension by echo RVSP is 56 mm of Hg , with RA mean of 10. There is no pulmonic valvular stenosis. There is a trace amount of pulmonic regurgitation The aortic root is not well visualized but is probably normal size. The inferior vena cava was not visualized Small pericardial effusion. There are no echocardiographic or Doppler indications for cardiac tamponade Moderate size left pleural effusion. MMode/2D Measurements & Calculations RVDd: 4.2 cm LVIDd: 6.7 cm FS: 14.5 % Ao root diam: 3.2 cm IVSd: 1.1 cm LVIDs: 5.8 cm EDV(Teich): 235.2 ml Ao root area: 8.2 cm2 LVPWd: 0.96 cm ESV(Teich): 164.6 ml LA dimension: 4.9 cm EF(Teich): 30.0 % Doppler Measurements & Calculations MV E max sandhya: MV P1/2t max sandhya: Ao V2 max: AI max sandhya: 68.3 cm/sec 104.7 cm/sec 123.9 cm/sec 203.2 cm/sec MV A max sandhya: MV P1/2t: 37.2 msec Ao max PG: AI max P.5 mmHg 50.5 cm/sec MVA(P1/2t): 5.9 cm2 6.1 mmHg AI dec slope: MV E/A: 1.4 MV dec slope: 131.2 cm/sec2 AI P1/2t: 453.5 msec 824.5 cm/sec2 MV dec time: 0.22 sec LV V1 max PG: PA V2 max: TR max sandhya: AV P1/2t-pr_phl: 0.90 mmHg 87.9 cm/sec 340.2 cm/sec 453.5 msec LV V1 max: PA max P.1 mmHg TR max P.4 cm/sec 46.3 mmHg MV P1/2t-pr_phl: 37.2 msec Left Ventricle The left ventricle is moderately dilated. There is normal left ventricular wall thickness. No True apical 2 chamber views obtained.Hence cannot comment on the apical anterior , the basal anterior, the basal inferior and apical inferior chin.The mid anterior , the mid inferior and the rest of the LV chin are severely hypokinetic.LVEF is severely reduced at 20%. Doppler measurements suggest impaired left ventricular relaxation, which is associated with grade I/IV or mild diastolic dysfunction. : By tissue doppler. There is no thrombus. Cannot assess ASD,VSD , or PFO. Right Ventricle The right ventricle is moderately dilated. The right ventricle is not well visualized secondary to technical limitations. Atria The right atrium is mild to moderately dilated. The left atrium is moderately dilated. Mitral Valve There is no evidence of mitral valve prolapse. There is no vegetation seen on the mitral valve. There is no mitral valve stenosis. There is a trace amount of mitral regurgitation. Aortic Valve There is no aortic valvular vegetation. There is no aortic valve stenosis. There is a trace to mild amount of aortic regurgitation. Tricuspid Valve There is no tricuspid stenosis. There is a mild amount of tricuspid regurgitation. There is moderate pulmonary hypertension by echo. RVSP is 56 mm of Hg , with RA mean of 10. Pulmonic Valve There is no pulmonic valvular stenosis. There is a trace amount of pulmonic regurgitation. Great Vessels The aortic root is not well visualized but is probably normal size. The inferior vena cava was not visualized. Effusions Small pericardial effusion. There are no echocardiographic or Doppler indications for cardiac tamponade. Moderate size left pleural effusion. : ABRIL BELL Lakshmi
--- NOTE | 2019-12-03 15:00 | PDOC CONSULTATION ---
Consultation-Blank Consultation: CARDIOLOGY CONSULTATION by Dr. Lorenza Sandoval on 12/03/2019. Patient seen at 2 PM. 60 minutes spent as patient more than 50% of time spent in direct patient care. REASON FOR CONSULTATION: Patient with complaints of shortness of breath with a history of ischemic cardiomyopathy and COPD with acute exacerbation. CONSULT REQUESTING PHYSICIAN: Dr. Rivera,[facility] physician hospitalist group. HISTORY OF PRESENT ILLNESS: Patient is a 69-year-old male with history of COPD, ischemic cardiomyopathy, prior history of myocardial infarction with coronary artery disease with no recent anginal symptoms, history of heart failure secondary to ischemic cardiomyopathy and continues to smoke and with severe medication and office visit noncompliance admitted with a 3 to 4-day history of increasing shortness of breath more than his usual baseline. It was associated with wheezing. He also has been having cough. There is been some orthopnea and PND but no chest pain discomfort. He denies any palpitations or near syncope syncope. Over the last 24 hours his shortness of breath worsened and hence he went to the [facility] clinic who recommended that the patient be admitted for further management. It is also noted that the patient's hernia was giving him groin pain and he has had multiple ER visits in the recent past for this. He was found to have an incarcerated right inguinal hernia which was reduced without any problems. But with no improvement in the patient's symptoms. At present patient states that he feels much improved with the current treatment. It is not clear if the patient is compliant with his diet and medications. PAST MEDICAL HISTORY: Is positive for COPD. He states about 13 years ago he had a double pneumonia and had a myocardial infarction. He states he did not have a cardiac catheterization. He has not followed up for this with any stationary engineer. He also has a history of alcohol intake as per the records, although the patient states that he quit smoking or drinking many years ago. He does have a history of cirrhosis of the liver. He also has a history of hypertension and hyper lipidemia. He also has a prior history of morbid obesity, for which she had gastric bypass surgery. At present the patient appears malnourished and cachectic. There is no history of TIA CVA. Patient denies any chronic kidney disease. Past SURGICAL HISTORY: Is Positive for Gastric Bypass Surgery Remotely. Cardiac catheterization. ALLERGIES: The patient is allergic to azithromycin, ketorolac, and penicillins. SOCIAL HISTORY: The patient is a smoker, and does have a history of alcohol abuse. FAMILY HISTORY: Is positive for CAD, COPD and hypertension. REVIEW OF SYSTEMS HEAD: Denies headache or head injury. EYES: No history of amblyopia diplopia. No history of amaurosis fugax. EARS: No history of hearing loss. No tinnitus. NOSE: No history of nosebleeds. No nasal polyps. MOUTH: No altered taste sensation, and no bleeding from the gums. THROAT: No history of odynophagia or dysphagia. No history of recurrent sore throats. SKIN: No history of psoriasis. No history of pruritus. No history of yellowish discoloration of the skin. NECK: Denies neck pain or swelling in the neck. LUNGS: Patient with acute exacerbation of COPD. Chest x-ray also shows bibasilar small pneumonias. He has no history of sleep apnea. The patient is a smoker. There is no hemoptysis. He has a productive cough with yellowish sputum. The onset was about 2 days ago, although the patient is not very helpful in defining the exact timeframe. He has no history of sleep apnea. No history of pulmonary embolism. HEART: Remote history of [place]. No cardiac work- up. 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 His LV ejection fraction is severely reduced. He has symptoms of heart failure with with PND orthopnea leg edema., But no anginal symptoms. There is no syncope. His blood pressure is on the lower side due to most likely poor cardiac output. ENDOCRINE: Denies diabetes or thyroid disease. No polydipsia polyuria. No history of heat or cold intolerance. RENAL: Denies history of chronic kidney disease. No hematuria pyuria or dysuria. No symptoms a UTI. MUSCULOSKELETAL skeletal: Denies arthritis or collagen vascular disease. GI: History of cirrhosis present no history of jaundice. No history of fatty food intolerance. No history of GI bleed. He has had several visits to the emergency room due to right groin pain. He had a right inguinal hernia which was reduced by surgical list. No history of GERD or peptic ulcer disease. No altered bowel movements. Appetite is decreased. He does have some weight loss, although is not very helpful in telling exactly how much weight he is lost over a period of time. APPLICATION INTEGRATOR: No history of TIA CVA. No history of headaches migraines or seizures. PSYCHIATRIC: Patient has history of alcohol and tobacco dependency. There is no history of anxiety or depression. No history of suicidal ideation. VASCULAR: No history of calf or buttock claudication.. No history of DVT HEMATOLOGICAL: No history of bleeding diathesis or clotting disorders. Metabolic: No history of gout. Prior history of morbid obesity and the patient has lost weight and appears to be cachectic and chronically ill looking at present. He has a history of hyperlipidemia, and is on Zocor at home. Current Medications Generic Name Dose Route Start Last Admin Trade Name Freq PRN Reason Stop Dose Admin Al Hydrox/Mg Hydrox/Simethicone 30 ml 12/01/19 21:02 12/03/19 18:01 Maalox Plus Susp 30 Udcup PO 12/31/19 21:01 30 ml Q4HP PRN Administration HEARTBURN Budesonide 0.5 mg 12/02/19 08:00 12/03/19 19:41 Pulmicort Neb 0.5 Mg/2 Ml Ampul NEB 01/01/20 07:59 0.5 mg RTBID RODNEY Administration Dextrose 12.5 gm 12/01/19 21:13 Dextrose Inj 50% Syringe (25 Gm/50 Ml) IV 12/31/19 21:12 PRN PRN FOR BG 50-69 IN ALERT PATIENT Protocol Dextrose 25 gm 12/01/19 21:13 Dextrose Inj 50% Syringe (25 Gm/50 Ml) IV 12/31/19 21:12 PRN PRN PER PROTOCOL Protocol Docusate Sodium 100 mg 12/02/19 10:00 12/03/19 09:49 Colace 100 Mg Capsule PO 01/01/20 09:59 100 mg DAILY RODNEY Administration Famotidine 20 mg 12/01/19 22:00 12/03/19 21:51 Pepcid 20 Mg Tablet PO 12/31/19 21:59 20 mg Q12 RODNEY Administration Folic Acid 1 mg 12/03/19 10:00 12/03/19 09:49 Folvite 1 Mg Tablet PO 01/02/20 09:59 1 mg DAILY RODNEY Administration Gabapentin 1,200 mg 12/02/19 22:00 12/03/19 21:51 Neurontin 400 Mg Capsule PO 01/01/20 21:59 1,200 mg Q8 RODNEY Administration Glucagon 1 mg 12/01/19 21:13 Glucagen Inj 1 Mg Vial IM 12/31/19 21:12 PRN PRN Evaluate for BG < 70 Protocol Glucose 15 gm 12/01/19 21:13 Glutose 40% Gel 15 Gm Tube PO 12/31/19 21:12 PRN PRN FOR BG 50-69 IN ALERT PATIENT Protocol Glucose 30 gm 12/01/19 21:13 Glutose 40% Gel 15 Gm Tube PO 12/31/19 21:12 PRN PRN FOR BG < 50 IN ALERT PATIENT Protocol Heparin Sodium (Porcine) 5,000 unit 12/01/19 22:00 12/03/19 21:51 Heparin Inj 5,000 Units/Ml 1 Ml Vial SUBCUT 12/31/19 21:59 5,000 unit Q8 RODNEY Administration Linezolid 600 mg in 300 mls @ 300 mls/hr 12/03/19 22:00 12/03/19 21:59 Zyvox Rtu 600 Mg/300 Ml Premixed IV 12/10/19 21:59 300 mls/hr Q12 RODNEY 300 mls/hr Administration Insulin Human Regular 0 - 15 unit 12/01/19 21:10 Humulin R (Pyxis) Insulin 100 Unit/Ml 3ml SUBCUT 12/31/19 21:09 ACHSP PRN PER PROTOCOL Protocol Ipratropium [place] 0.5 mg 12/03/19 02:00 12/03/19 19:41 Atrovent 0.02% Neb 0.5 Mg/2.5 Ml Ampul NEB 01/01/20 00:00 0.5 mg RTQ6 RODNEY Administration Levalbuterol HCl 0.63 mg 12/01/19 21:10 Xopenex Neb 0.63 Mg/3 Ml Ampul NEB 12/31/19 21:09 RTQ2HP PRN SHORTNESS OF BREATH Levalbuterol HCl 1.25 mg 12/02/19 20:00 12/03/19 19:41 Xopenex Neb 1.25 Mg/3 Ml Ampul NEB 01/01/20 19:59 1.25 mg RTQ6 RODNEY Administration Lisinopril 2.5 mg 12/03/19 10:00 12/03/19 09:48 Prinivil 5 Mg Tablet PO 01/02/20 09:59 2.5 mg DAILY RODNEY Administration Lorazepam 1 mg 12/02/19 17:01 12/03/19 21:52 Ativan Inj 2 Mg/1 Ml Vial IV 12/09/19 17:00 1 mg Q2HP PRN Administration ANXIETY/AGITATION Magnesium Hydroxide 30 ml 12/01/19 21:02 Milk Of Magnesia 30 Ml Udcup PO 12/31/19 21:01 HSP PRN FOR CONSTIPATION Methylprednisolone Sodium Succinate 40 mg 12/03/19 14:00 12/03/19 21:51 Solu-Medrol Inj/Pf 40 Mg/1 Ml Sdv IV 01/02/20 13:59 40 mg Q8 RODNEY Administration Metoprolol Tartrate 12.5 mg 12/02/19 18:00 12/03/19 17:15 Lopressor 25 Mg Tablet PO 01/01/20 17:59 12.5 mg BID RODNEY Administration Midodrine 5 mg 12/02/19 18:00 12/03/19 17:15 Proamatine 5 Mg Tablet PO 01/01/20 17:59 5 mg TID RODNEY Administration Morphine Sulfate 2 mg 12/02/19 17:02 12/03/19 21:52 Morphine 10 Mg/Ml Inj IV 12/09/19 17:00 2 mg Q4HP PRN Administration Acute Severe Dyspnea Nicotine 1 each 12/01/19 21:10 Nicoderm 21 Mg/24 Hr Transderm Patch TD 12/31/19 21:09 DAILYP PRN WITHDRAWAL SYMPTOMS Nitroglycerin 0.5 gm 12/01/19 21:15 12/03/19 17:17 Nitrol 2% Ointment 1gm Packet TP 12/31/19 21:14 Not Given Q6 [facility] Promethazine HCl 12.5 mg 12/01/19 21:02 Phenergan Inj 25 Mg/1 Ml Vial IV 12/31/19 21:01 Q4HP PRN FOR NAUSEA/VOMITING Simvastatin 80 mg 12/02/19 22:00 12/03/19 21:51 Zocor 40 Mg Tablet PO 01/01/20 21:59 80 mg QHS RODNEY Administration Sodium Chloride 2.5 ml 12/01/19 22:00 12/03/19 21:51 Saline Flush 2.5 Ml Monoject Prefil Syrin IV 12/31/19 21:59 2.5 ml Q8 RODNEY Administration Discontinued Medications Generic Name Dose Route Start Last Admin Trade Name Freq PRN Reason Stop Dose Admin Albuterol/Ipratropium 3 ml 12/01/19 17:31 12/01/19 17:50 Duoneb 3 Ml Ampul NEB 12/01/19 17:32 3 ml NOW ONE Administration Bumetanide 1 mg 12/02/19 00:00 12/02/19 12:24 Bumex Inj/Pf 1 Mg/4 Ml Sdv IV 12/02/19 12:01 1 mg Q6 RODNEY Administration Chlorpromazine HCl 25 mg 12/01/19 21:10 12/02/19 06:05 Thorazine Inj 25 Mg/1 Ml Ampule IV 12/31/19 21:09 25 mg Q8 PRN Administration Nausea/Agitation/Tremor Chlorpromazine HCl Confirm 12/02/19 06:01 12/02/19 07:22 Thorazine Inj 25 Mg/1 Ml Ampule Administered 12/02/19 06:02 Not Given Dose 25 mg .ROUTE .STK-MED ONE Diazepam 10 mg 12/01/19 21:10 12/02/19 16:23 Valium Inj 10 Mg/2 Ml Disp.Syrin IV 12/08/19 21:09 10 mg Q1HP PRN Administration WITHDRAWAL SYMPTOMS Diazepam 5 mg 12/01/19 21:11 12/01/19 23:06 Valium 5 Mg Tablet PO 12/08/19 21:10 5 mg Q4HP PRN Administration ANXIETY/AGITATION Furosemide 20 mg 12/01/19 19:44 12/01/19 20:16 Lasix Inj/Pf 20 Mg/2 Ml Sdv IV 12/01/19 19:45 Not Given NOW ONE Furosemide 40 mg 12/01/19 20:08 12/01/19 20:16 Lasix Inj/Pf 40 Mg/4 Ml Sdv IV 12/01/19 20:09 40 mg NOW ONE Administration Lactated Ringer's 1,000 mls @ 999 mls/hr 12/03/19 06:30 12/03/19 07:49 Lactated Ringers 1000 Ml Iv Soln IV 12/03/19 07:30 Infused ONCE ONE Infusion Ibuprofen 800 mg 12/01/19 17:31 12/01/19 17:52 Motrin 800 Mg Tablet PO 12/01/19 17:32 Not Given NOW ONE Influenza Virus Vaccine Quadrival 0.5 ml 12/02/19 01:52 Flulaval Quad 2019-20 Vac 0.5 Ml Syr IM 12/02/19 01:53 .ONCE ONE Ipratropium [place] 0.5 mg 12/02/19 00:00 12/02/19 16:13 Atrovent 0.02% Neb 0.5 Mg/2.5 Ml Ampul NEB 01/01/20 00:00 0.5 mg RTQ8 RODNEY Administration Levalbuterol HCl 1.25 mg 12/02/19 00:00 12/02/19 16:13 Xopenex Neb 1.25 Mg/3 Ml Ampul NEB 01/01/20 00:00 1.25 mg RTQ8 RODNEY Administration Levofloxacin 750 mg 12/03/19 11:00 Levaquin 750 Mg Tablet PO 12/10/19 10:59 NOON RODNEY Lidocaine HCl 5 ml 12/02/19 01:30 12/02/19 01:30 Xylocaine 2% Uro-Jet 5 Ml Kit MM 12/02/19 01:31 5 ml NOW ONE Administration Lidocaine HCl Confirm 12/02/19 00:58 12/02/19 02:11 Xylocaine 2% Uro-Jet 5 Ml Kit Administered 12/02/19 00:59 Not Given Dose 5 ml .ROUTE .STK-MED ONE Morphine Sulfate 4 mg 12/01/19 18:04 12/01/19 20:18 Morphine 10 Mg/Ml Inj IV 12/01/19 18:05 Not Given NOW ONE Morphine Sulfate 2 mg 12/01/19 18:19 12/01/19 18:24 Morphine 10 Mg/Ml Inj IV 12/01/19 18:20 2 mg NOW ONE Administration Morphine Sulfate 4 mg 12/01/19 20:00 12/01/19 20:37 Morphine 10 Mg/Ml Inj IV 12/01/19 20:01 Not Given NOW ONE Morphine Sulfate 2 mg 12/01/19 21:10 12/02/19 15:28 Morphine 10 Mg/Ml Inj IV 12/08/19 21:09 2 mg Q1HP PRN Administration Acute Severe Dyspnea Ondansetron HCl 8 mg 12/01/19 17:32 12/01/19 17:49 Zofran Odt 4 Mg Tablet PO 12/01/19 17:33 8 mg NOW ONE Administration Tramadol HCl 50 mg 12/01/19 18:08 12/01/19 18:18 Ultram 50 Mg Tablet PO 12/01/19 18:09 Not Given NOW ONE PHYSICAL EXAMINATION: The patient is chronically ill-appearing. He appears to be malnourished. Selected Entries 12/03/19 11:17 Temperature 97.4 F Temperature Axillary Source Pulse Rate 86 Respiratory 16 Rate Blood Pressure 92/63 L Blood Pressure 72 Mean BP Location Right Arm BP Position Supine O2 Sat by Pulse 100 Oximetry Oxygen Flow 6.00 Rate Oxygen Delivery Nasal Cannula Method HEAD: Is atraumatic normocephalic. EYES: Pupils are equal round regular reactive to light accommodation. Extraocular movements are normal. There is no conjunctival pallor. There is no scleral icterus. EARS: Tympanic membranes are intact. External auditory canals are clear. NOSE: There is no deviated nasal septum. There is no inflammation of the nasal mucous membrane. MOUTH: Mucous noted in the mouth are moist tongue is moist. There is no ulcers. There is no bleeding from the gums. THROAT: There is no redness of the oropharynx. There is no exudates. SKIN: There is no skin rashes or skin lesions. There is no particular ecchymosis. NECK: Is supple. There is JVD present carotids are equal there is no bruits. There is no lymphadenopathy. There is no goiter. There is no accessory muscle respiration use. Trachea central LUNGS: There is diminished air entry and prolonged expiration. On percussion there is hyperresonance. He has scattered rhonchi and few end expiratory wheezing. He has dry crackles in both the bases along with fine rales of CHF. HEART: S1-S2 is heard. S1 is of normal intensity. There is no S3 gallop. There is no S4 gallop. There is systolic murmur left sternal border and the apex there is no rub. ABDOMEN: Is obese. Nontender. There is no hepatosplenomegaly. Bowel sounds are well heard. There is no tender areas of masses. EXTREMITIES: Femorals are deep. Femorals are diminished. Leg pulses are diminished. There is 2 + bilateral pedal edema present. There is no DVT. There is no cellulitis. There is no calf tenderness. There is no sinus or clubbing. Capillary refill is normal. APPLICATION INTEGRATOR: The patient is conscious awake alert oriented x3 with no focal deficits. PSYCHIATRIC: The patient judgment insight are intact, and his affect is normal. The patient's echocardiogram done done this admission shows severely reduced LV ejection fraction and moderate pulmonary hypertension. EKG:. SINUS TACHYCARDIA [Remains] [MAPC] . MULTIPLE ATRIAL PREMATURE COMPLEXES [Remains] [T1LA] . NONSPECIFIC T ABNORMALITIES, LATERAL LEADS [Remains] [NSIGC] . NO SIGNIFICANT CHANGE [LQTB] . [Now Absent] BORDERLINE PROLONGED QT INTERVAL Labs- All tests 24 hr 12/03/19 12/03/19 12/03/19 05:34 05:34 08:44 WBC 11.8 H RBC 4.06 L Hgb 10.6 L Hct 32.6 L MCV 80 MCH 26.2 L MCHC 32.6 RDW 19.1 H Plt Count 160 Lymph % (Auto) 13.3 [place] % (Auto) 10.0 Eos % (Auto) 1.6 Baso % (Auto) 1.2 Absolute Neuts (auto) 8.7 H Absolute Lymphs (auto) 1.6 Absolute Monos (auto) 1.2 Absolute Eos (auto) 0.2 Absolute Basos (auto) 0.1 Seg Neutrophils % 73.9 Sodium 138.3 Potassium 3.6 Chloride 101 Carbon Dioxide 30 Anion Gap 7 BUN 18 Creatinine 0.85 Est GFR ( Amer) > 60 Est GFR (MDRD) Non-Af > 60 Glucose 140 H POC Glucose 129 H Calcium 7.1 L Total Bilirubin 0.6 Direct Bilirubin 0.0 Neonat Total Bilirubin Not Reportable Neonat Direct Bilirubin Not Reportable Neonat Indirect Bili Not Reportable AST 23 ALT 12 Alkaline Phosphatase 121 Total Protein 5.9 L Albumin 2.7 L 12/03/19 11:16 WBC RBC Hgb Hct MCV MCH MCHC RDW Plt Count Lymph % (Auto) [place] % (Auto) Eos % (Auto) Baso % (Auto) Absolute Neuts (auto) Absolute Lymphs (auto) Absolute Monos (auto) Absolute Eos (auto) Absolute Basos (auto) Seg Neutrophils % Sodium Potassium Chloride Carbon Dioxide Anion Gap BUN Creatinine Est GFR ( Amer) Est GFR (MDRD) Non-Af Glucose POC Glucose 118 H Calcium Total Bilirubin Direct Bilirubin Neonat Total Bilirubin Neonat Direct Bilirubin Neonat Indirect Bili AST ALT Alkaline Phosphatase Total Protein Albumin Chest X-Ray 12/01/19 17:00 IMPRESSION: Mild pulmonary edema, improved from prior. Hyperinflated lungs which can be seen with obstructive lung disease. Chest/Abdomen CTA 12/01/19 19:27 IMPRESSION: Limited study secondary to excessive respiratory motion artifact. No evidence of pulmonary embolism to the lobar level. Moderate bilateral pleural effusions, left larger than right. The left-sided pleural effusion appears increased from the previous exam dated 07/18/2019; whereas, the right-sided pleural effusion appears similar. Patchy groundglass opacity within the periphery of the right upper lobe. This could indicate an atypical infectious/inflammatory process, to include viral pneumonitis, or a focus of interstitial edema. Cardiomegaly with trace pericardial effusion. Cirrhotic appearing liver with small amount of upper abdominal ascites. ECHOCARDIOGRAM: [See report] shows a dilated left ventricle with severely reduced LV ejection fraction. There is moderate pulmonary hypertension. IMPRESSION/RECOMMENDATION: 1. Acute on chronic respiratory failure: This is a combination of acute exacerbation of COPD, pneumonia, bronchitis, and congestive heart failure. 2. Acute exacerbation of COPD.: Continue antibiotics continue respiratory treatments and oxygen. 3. Acute on chronic systolic heart failure: The patient still is in significant heart failure with a combination of acute exacerbation of COPD. The heart failure is due to acute on chronic systolic heart failure. Continue his beta- sarina and ARB, and Lasix. Will increase the patient's Midodrine since his blood pressure is low. The patient's (ejection fraction persist to be 20%. The patient will qualify for an ICD, but I am not sure if the patient will be compliant with this. The patient does not seem to be interested for an AICD placement at present. We will try the patient over the acute exacerbation of COPD and then talk to him about it. 3. Right inguinal hernia status post reduction by surgical hist. The patient will be high risk for severe surgery under general anesthesia or spinal anesthesia. The patient most likely if at all he has to have hernia surgery this should be done under local and sedation. 4. 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 Continue anti-cardiomyopathy treatment as per gold standard which is being done. 5.Coronary artery disease: History of myocardial infarction in the past: No evidence of anginal symptoms. No evidence of elevated troponin I at this admission. 6. Hypertension: At present blood pressure is low. Will continue the patient on midodrine, but will increase the dose to 10 mg p.o. 3 times daily. 7. History of cirrhosis of the liver: Secondary to chronic alcohol abuse. 8. History of alcohol abuse and tobacco abuse disorder. Ill effects of alcohol and tobacco have been discussed with the patient tobacco cessation counseling was done. This took about 4 minutes. 9. Hyperlipidemia: Continue statins. Medications reviewed. Medication regimen and management plan discussed with attending provider the case. Medical decision making is of high complexity. 60 minutes spent with patient more than 50% of time spent in direct patient care will follow.
[2019-12-03] MEDS: SIMVASTATIN 40 MG TABLET PO SCH (21:51)
[2019-12-03] MEDS: LORAZEPAM INJ 2 MG/1 ML VIAL IV PRN (21:52)
[2019-12-03] MEDS: LINEZOLID 600 MG/300 ML RTUPB IV SCH (21:59)
[2019-12-04] MEDS: NITROGLYCERIN 2% OINTMENT 1 GM PACKET TP SCH ×4 (01:58→17:18)
[2019-12-04] MEDS: LEVALBUTEROL HCL NEB 1.25 MG/3 ML AMPUL NEB SCH ×4 (02:05→19:51)
[2019-12-04] MEDS: IPRATROPIUM BROMIDE 0.02% NEB 0.5 MG/2.5 ML AMPUL NEB SCH ×4 (02:05→19:51)
[2019-12-04] MEDS: MORPHINE SULFATE 10 MG/ML INJ IV PRN ×4 (02:16→20:55)
[2019-12-04] MEDS: LORAZEPAM INJ 2 MG/1 ML VIAL IV PRN (02:17)
[2019-12-04] MEDS: HEPARIN SOD (PORCINE) 5,000 UNIT/ML 1 ML VIAL SUBCUT SCH ×3 (06:29→21:42)
[2019-12-04] MEDS: METHYLPREDNISOLONE INJ 40 MG/1 ML SDV IV SCH ×3 (06:29→21:42)
[2019-12-04] MEDS: GABAPENTIN 400 MG CAPSULE PO SCH ×3 (06:33→21:41)
[2019-12-04] MEDS: BUDESONIDE NEB 0.5 MG/2 ML AMPUL NEB SCH ×2 (09:16→19:51)
[2019-12-04] MEDS: MIDODRINE HCL 5 MG TABLET PO SCH ×3 (10:06→17:24)
[2019-12-04] MEDS: METOPROLOL TARTRATE 25 MG TABLET PO SCH ×2 (10:06→17:18)
[2019-12-04] MEDS: LISINOPRIL 5 MG TABLET PO SCH (10:06)
[2019-12-04] MEDS: FAMOTIDINE 20 MG TABLET PO SCH ×2 (10:06→21:42)
[2019-12-04] MEDS: LINEZOLID 600 MG/300 ML RTUPB IV SCH ×2 (10:07→21:53)
[2019-12-04] MEDS: FOLIC ACID 1 MG TABLET PO SCH (10:07)
[2019-12-04] MEDS: DOCUSATE SODIUM 100 MG CAPSULE PO SCH (10:07)
--- NOTE | 2019-12-04 12:00 | PDOC PROGRESS REPORT ---
Subjective Progress Note for:: 12/04/19 Subjective:: DURAN TELLES is a 69 year old male who presented to the emergency room with acute dyspnea. He admits being slightly more short of breath than usual over the last 3 days but suddenly developed severe dyspnea, markedly worsened on exertion, associated with orthopnea and accompanied by air hunger just prior to coming to the emergency room. He called the [facility] to report his symptoms and was instructed to call EMS for transportation to the ER. He denied other associated or accompanying signs and symptoms. He admits numerous prior similar episodes related to chronic systolic congestive heart failure and chronic (oxygen dependent) obstructive pulmonary disease exacerbations. He has not identified any additional aggravating or ameliorating factors for his dyspnea. In the emergency room he was found to have a markedly elevated BNP with evidence of pulmonary edema on his chest x-ray. He was also noted to have a recurrence of his right inguinal hernia which was reduced without significant improvement in his overall status. His respiratory status and vital signs improved after receiving low-dose morphine. He was subsequently admitted to the IMCU for further evaluation and treatment of his acute pulmonary edema. 12/02/2019. No acute events overnight. Comfortably sitting up in apparent distress. Denies any fever, chills, nausea, vomiting, diarrhea, constipation or any urinary symptoms. Stating that he is feeling much better since admission. 12/03/2019. 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 Patient's right inguinal hernia has been evaluated by surgery, as per surgery note patient does not need any acute intervention as hernia still reducible and also patient is a poor candidate for any surgical intervention. Recommendation is to monitor and follow-up as outpatient with surgery clinic. 12/04/2019. Complaining of back and right inguinal pain, asking for morphine, denies any chest pain, shortness of breath, fever, chills, nausea or vomiting. Reason For Visit: ACUTE PULMONARY EDEMA,ACUTE ON CHRONIC RESPIRATORY Physical Exam Vital Signs: Temp Pulse Resp BP Pulse Ox 97.3 F 93 18 93/62 L 95 12/04/19 08:19 12/04/19 09:17 12/04/19 09:17 12/04/19 08:19 12/04/19 09:17 Intake & Output 12/03/19 12/04/19 12/05/19 06:59 06:59 06:59 Intake Total 644 3117 Output Total 3200 820 Balance -2556 2297 Weight 66.1 kg 67.1 kg General appearance: PRESENT: no acute distress, well-developed, well-nourished Head exam: PRESENT: atraumatic, normocephalic Respiratory exam: PRESENT: crackles, prolonged expiratory phas, wheezes. ABSENT: rales, rhonchi Cardiovascular exam: PRESENT: RRR. ABSENT: diastolic murmur, rubs, systolic murmur GI/Abdominal exam: PRESENT: normal bowel sounds, soft. ABSENT: distended, guarding, mass, organolmegaly, rebound, tenderness Gentrourinary exam: PRESENT: other - Right inguinal hernia, no sign of incarceration. Results Laboratory Results: 12/03/19 05:34 12/03/19 05:34 12/01/19 12/01/19 12/01/19 17:30 22:01 22:01 Creatine Kinase 42 L CK-MB (CK-2) 2.40 Troponin I 0.034 0.042 NT-Pro-B Natriuret Pep 59590 H 12/02/19 12/02/19 12/02/19 03:57 03:57 09:58 Creatine Kinase 37 L 37 L CK-MB (CK-2) 2.55 Troponin I 0.049 NT-Pro-B Natriuret Pep 12/02/19 09:58 Creatine Kinase CK-MB (CK-2) 2.33 Troponin I 0.044 NT-Pro-B Natriuret Pep Impressions: Chest X-Ray 12/01/19 17:00 IMPRESSION: Mild pulmonary edema, improved from prior. Hyperinflated lungs which can be seen with obstructive lung disease. Chest/Abdomen CTA 12/01/19 19:27 IMPRESSION: Limited study secondary to excessive respiratory motion artifact. No evidence of pulmonary embolism to the lobar level. Moderate bilateral pleural effusions, left larger than right. The left-sided pleural effusion appears increased from the previous exam dated 07/18/2019; whereas, the right-sided pleural effusion appears similar. Patchy groundglass opacity within the periphery of the right upper lobe. This could indicate an atypical infectious/inflammatory process, to include viral pneumonitis, or a focus of interstitial edema. Cardiomegaly with trace pericardial effusion. Cirrhotic appearing liver with small amount of upper abdominal ascites. TECHNICAL DOCUMENTATION: Quality ID # 436: Final reports with documentation of one or more dose reduction techniques (e.g., Automated exposure control, adjustment of the mA and/or kV according to patient size, use of iterative reconstruction technique) copyright 2011 [employer] All Rights Reserved Assessment and Plan - Diagnosis (1) Hypotension Qualifiers: Hypotension type: other hypotension type Qualified Code(s): I95.89 - Other hypotension Is this a current diagnosis for this admission?: Yes Plan: This most likely due to severely reduced ejection fraction. There is no sign of systemic inflammatory response or sepsis. 01/06/2019. 2D echo LVEF less than 20%. Severe left ventricular hypokinesis. Moderately dilated left ventricle. RSVP 56%. [place] [address] up from baseline of 7000. Monitor vital status. Continue midodrine 10 mg p.o. 3 times daily uptitrate if needed. Continue MILAGRO inhibitors and beta-blockers, monitor vitals and uptitrate as possible. Cardiology consulted. Recommendations noted. (2) Acute and chronic respiratory failure Qualifiers: Respiratory failure complication: hypoxia Qualified Code(s): J96.21 - Acute and chronic respiratory failure with hypoxia Is this a current diagnosis for this admission?: Yes Plan: Most likely to acute CHF exacerbation complicated by by underlying history of COPD. Mild leukocytosis and crackles on physical examination. Given history of multiple recent hospitalization will start on empiric IV antibiotics. Continue telemetry, duo nebs, BiPAP, LABA, LABA, ICS, IV steroids IV anti biotics. (3) Acute on chronic systolic congestive heart failure, NYHA class 3 Is this a current diagnosis for this admission?: Yes Plan: Acute systolic heart failure. Most like due to noncompliance. Repeat 2D echo does not show any significant changes. 01/06/2019. 2D echo LVEF less than 20%. Severe left ventricular hypokinesis. Moderately dilated left ventricle. RSVP 56%. [place] [address] up from baseline of 7000. Continue telemetry, strict in and out, cardiac diet, fluid restriction, IV diuretics, beta-blockers, MILAGRO. Continue beta-sarina, uptitrate as tolerated. Continue MILAGRO, uptitrate as tolerated. May benefit from spironolactone. Dr. Comer from cardiology has been consulted. Recommendations noted. (4) Alcohol use disorder, severe, dependence Is this a current diagnosis for this admission?: Yes Plan: History of alcohol dependence. No sign of withdrawal. Continue DT precautions. (5) Chronic obstructive pulmonary disease with acute exacerbation Is this a current diagnosis for this admission?: Yes Plan: Plan as per #1. (6) Diabetes mellitus type 2 in nonobese Is this a current diagnosis for this admission?: Yes Plan: Continue diabetic diet, pre-meal, sliding scale and will insulin. Hypoglycemia protocol. Accu-Chek. (7) Hypertension Qualifiers: Hypertension type: essential hypertension Qualified Code(s): I10 - Essential (primary) hypertension Is this a current diagnosis for this admission?: Yes Plan: History of hypertension but patient is noted to be hypotensive most likely due to severely severely reduced ejection fraction. Monitor vitals. (8) Incarcerated right inguinal hernia Is this a current diagnosis for this admission?: Yes Plan: Has been evaluated by surgery. No surgical intervention indicated at this point as hernia is not currently incarcerated. Patient is also very poor candidate due to underlying multiple comorbidities. Recommendation is to monitor and follow-up as outpatient with surgical clinic. Please refer to surgery note. - Plan Summary Summary: Patient will be admitted to the [facility] where he will receive usual supportive and symptomatic cares. His acute pulmonary edema will be addressed by administering morphine sulfate 2 mg IV every 1 hour as needed for severe dyspnea. He will also be treated with Bumex 1 mg IV every 6 hours. He will receive supplemental oxygen with the use of noninvasive airway pressure support devices such as BiPAP if needed maintain an adequate oxygen saturation level. A surgical consultation with Dr. Cote will be obtained for evaluation of the patient's right inguinal hernia. CBCs, metabolic profiles, magnesium levels and arterial blood gases will be obtained as needed. Chest x-ray will be repeated if needed. Serial cardiac enzymes will be obtained. Patient will be continued on his usual medical regiment as appropriate and available per formulary. Patient will be on a cardiac and diabetic restricted diet. A hemoglobin A1c, thyroid profile and a lipid profile will be obtained. Cardiology consultation with Dr. Sandoval will be obtained. Patient will be observed for alcohol withdrawal symptoms and will be treated with scheduled Valium orally and Valium 10 mg IV every 1 hour as needed for severe tremors/anxiety/agitation. Patient will receive Thorazine 25 mg IV every 8 hours as needed for hallucinations. A nicotine replacement patch will be available for the patient's use, if desired.
--- NOTE | 2019-12-04 14:18 | Progress Note ---
Provider Note Provider Note: CARDIOLOGY PROGRESS NOTE by Dr. Lorenza Sandoval on 12/04/2019. SUBJECTIVE: The patient states his shortness of breath is marginally better. He continues to have wheezing. He has cough productive of greenish sputum. There is no chest pain or discomfort. There is no PND, angina or palpitations or leg edema. The patient does have some orthopnea. There is no pleuritic chest pain there is no hemoptysis. There is no arrhythmia seen on the monitor. PHYSICAL EXAMINATION: The patient appears to be chronically ill and malnourished. Selected Entries 12/04/19 12/04/19 08:19 12:24 Temperature 97.3 F Temperature Oral Axillary Source Pulse Rate 84 83 Respiratory 22 H 20 Rate Blood Pressure 93/62 L 103/65 Blood Pressure 72 77 Mean BP Location Right Arm Right Arm BP Position Sitting Sitting O2 Sat by Pulse 92 100 Oximetry Oxygen Flow 3.50 2.50 Rate Oxygen Delivery Nasal Cannula Nasal Cannula Method HEAD: Is atraumatic normocephalic. EYES: Pupils are equal round regular reactive to light accommodation. Extraocular movements are normal. There is no conjunctival pallor. There is no scleral icterus. EARS: Tympanic membranes are intact. External auditory canals are clear. NOSE: There is no deviated nasal septum. There is no inflammation of the nasal mucous membrane. MOUTH: Mucous noted in the mouth are moist tongue is moist. There is no ulcers. There is no bleeding from the gums. THROAT: There is no redness of the oropharynx. There is no exudates. SKIN: There is no skin rashes or skin lesions. There is no particular ecchymosis. NECK: Is supple. There is JVD present carotids are equal there is no bruits. There is no lymphadenopathy. There is no goiter. There is no accessory muscle respiration use. Trachea central LUNGS: There is diminished air entry and prolonged expiration. On percussion there is hyperresonance. He has scattered rhonchi and few end expiratory wheezing. He has dry crackles in both the bases along with fine rales of CHF. HEART: S1-S2 is heard. S1 is of normal intensity. There is no S3 gallop. There is no S4 gallop. There is systolic murmur left sternal border and the apex there is no rub. ABDOMEN: Is obese. Nontender. There is no hepatosplenomegaly. Bowel sounds are well heard. There is no tender areas of masses. EXTREMITIES: Femorals are deep. Femorals are diminished. Leg pulses are diminished. There is 2 + bilateral pedal edema present. There is no DVT. There is no cellulitis. There is no calf tenderness. There is no sinus or clubbing. Capillary refill is normal. 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 PSYCHIATRIC: The patient judgment insight are intact, and his affect is normal. Chest X-Ray 12/01/19 17:00 IMPRESSION: Mild pulmonary edema, improved from prior. Hyperinflated lungs which can be seen with obstructive lung disease. Chest/Abdomen CTA 12/01/19 19:27 IMPRESSION: Limited study secondary to excessive respiratory motion artifact. No evidence of pulmonary embolism to the lobar level. Moderate bilateral pleural effusions, left larger than right. The left-sided pleural effusion appears increased from the previous exam dated 07/18/2019; whereas, the right-sided pleural effusion appears similar. Patchy groundglass opacity within the periphery of the right upper lobe. This could indicate an atypical infectious/inflammatory process, to include viral pneumonitis, or a focus of interstitial edema. Cardiomegaly with trace pericardial effusion. Cirrhotic appearing liver with small amount of upper abdominal ascites. TECHNICAL DOCUMENTATION: Quality ID # 436: Final reports with documentation of one or more dose reduction techniques (e.g., Automated exposure control, adjustment of the mA and/or kV according to patient size, use of iterative reconstruction technique) copyright 2011 [employer]- All Rights Reserved IMPRESSION/RECOMMENDATION: 1. Acute on chronic respiratory failure: This is a combination of acute exacerbation of COPD, pneumonia, bronchitis, and congestive heart failure. 2. Acute exacerbation of COPD.: Continue antibiotics continue respiratory treatments and oxygen. 3. Acute on chronic systolic heart failure: The patient still is in significant heart failure with a combination of acute exacerbation of COPD. The heart failure is due to acute on chronic systolic heart failure. Continue his beta- sarina and ARB, and Lasix. The increase in the midodrine the patient's blood pressure is slightly better.. The patient's (ejection fraction persist to be 20%. The patient will qualify for an ICD, but I am not sure if the patient will be compliant with this. The patient does not seem to be interested for an AICD placement at present. We will try the patient over the acute exacerbation of COPD and then talk to him about it. 3. Right inguinal hernia status post reduction by surgical hist. The patient will be high risk for severe surgery under general anesthesia or spinal anesthesia. The patient most likely if at all he has to have hernia surgery this should be done under local and sedation. 4. 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 Continue anti-cardiomyopathy treatment as per gold standard which is being done. 5.Coronary artery disease: History of myocardial infarction in the past: No evidence of anginal symptoms. No evidence of elevated troponin I at this admission. 6. Hypertension: At present blood pressure is low. Will continue the patient on midodrine, but will increase the dose to 10 mg p.o. 3 times daily. 7. History of cirrhosis of the liver: Secondary to chronic alcohol abuse. 8. History of alcohol abuse and tobacco abuse disorder. Ill effects of alcohol and tobacco have been discussed with the patient tobacco cessation counseling was done. This took about 4 minutes. 9. Hyperlipidemia: Continue statins. Medications reviewed. Medication regimen and management plan discussed with attending provider the case. Medical decision making is of high complexity. 60 minutes spent with patient more than 50% of time spent in direct patient care will follow.
[2019-12-04] MEDS: SIMVASTATIN 40 MG TABLET PO SCH (21:41)
[2019-12-05] MEDS ORDERED: HALOPERIDOL LACTATE INJ 5 MG/1 ML VIAL ONE (01:05)
[2019-12-05] MEDS ORDERED: KETOROLAC TROMETHAMINE INJ/PF 30 MG/1 ML SDV ONE (01:05)
[2019-12-05] MEDS ORDERED: KETOROLAC TROMETHAMINE INJ/PF 30 MG/1 ML SDV IV PRN ×2 (01:38→08:30)
[2019-12-05] MEDS: IPRATROPIUM BROMIDE 0.02% NEB 0.5 MG/2.5 ML AMPUL NEB SCH ×4 (02:02→20:41)
[2019-12-05] MEDS: LEVALBUTEROL HCL NEB 1.25 MG/3 ML AMPUL NEB SCH ×4 (02:02→20:41)
[2019-12-05 05:56] LABS: HEMATOCRIT 30.4 % (37.9-51.0); HEMOGLOBIN 9.8 g/dL (13.5-17.0); MEAN CORPUSCULAR HGB CONC 32.3 g/dL (32.0-36.0); MEAN CORPUSCULAR VOLUME 81 fl (80-97); PLATELET COUNT 216 10^3/uL (150-450); RED BLOOD COUNT 3.77 10^6/uL (4.35-5.55); RED CELL DISTRIBUTION WIDTH 18.8 % (11.5-14.0); WHITE BLOOD COUNT 11.8 10^3/uL (4.0-10.5)
[2019-12-05] MEDS: GABAPENTIN 400 MG CAPSULE PO SCH ×3 (05:59→21:17)
[2019-12-05] MEDS: METHYLPREDNISOLONE INJ 40 MG/1 ML SDV IV SCH (06:00)
[2019-12-05] MEDS: HEPARIN SOD (PORCINE) 5,000 UNIT/ML 1 ML VIAL SUBCUT SCH ×3 (06:13→21:19)
[2019-12-05 06:24] LABS: ANION GAP 7 (5-19); BLOOD UREA NITROGEN 26 mg/dL (7-20); CALCIUM 7.6 mg/dL (8.4-10.2); CARBON DIOXIDE 27 mmol/L (22-30); CHLORIDE 99 mmol/L (98-107); GLUCOSE 119 mg/dL (75-110); POTASSIUM 4.4 mmol/L (3.6-5.0)
[2019-12-05] MEDS: BUDESONIDE NEB 0.5 MG/2 ML AMPUL NEB SCH ×2 (09:07→20:41)
[2019-12-05] MEDS: LISINOPRIL 5 MG TABLET PO SCH (09:44)
[2019-12-05] MEDS: METOPROLOL TARTRATE 25 MG TABLET PO SCH (09:44)
[2019-12-05] MEDS: MIDODRINE HCL 5 MG TABLET PO SCH ×3 (09:44→17:14)
[2019-12-05] MEDS: DOCUSATE SODIUM 100 MG CAPSULE PO SCH (09:44)
[2019-12-05] MEDS: FAMOTIDINE 20 MG TABLET PO SCH ×2 (09:44→21:19)
[2019-12-05] MEDS: LINEZOLID 600 MG/300 ML RTUPB IV SCH (09:45)
[2019-12-05] MEDS: FOLIC ACID 1 MG TABLET PO SCH (09:45)
[2019-12-05] MEDS: METHYLPREDNISOLONE INJ 125 MG/2 ML SDV IV SCH ×2 (13:22→21:18)
[2019-12-05] MEDS ORDERED: DOBUTAMINE HCL/D5W 500 MG/250 ML RTUINJ IV PRN (15:37)
[2019-12-05] MEDS: LIDOCAINE 5% (700 MG) TRANSDERMAL ADH..PATCH TP SCH (15:46)
--- NOTE | 2019-12-05 16:01 | PDOC PROGRESS REPORT ---
Subjective Progress Note for:: 12/05/19 Subjective:: Today patient complains of back pain as well as pain in his abdomen at the site of his hernia. Denies any worsening of his pain as compared to prior. Denies fever or chills. Seemed comfortable at the time of my encounter this morning. However he remains hypotensive. Reason For Visit: ACUTE PULMONARY EDEMA,ACUTE ON CHRONIC RESPIRATORY Physical Exam Vital Signs: Temp Pulse Resp BP Pulse Ox 97.3 F 67 12 81/48 L 91 L 12/05/19 12:05 12/05/19 14:00 12/05/19 14:00 12/05/19 12:05 12/05/19 14:00 Intake & Output 12/04/19 12/05/19 12/06/19 06:59 06:59 06:59 Intake Total 3117 2336 642 Output Total 820 450 150 Balance 2297 1886 492 Weight 67.1 kg 69.1 kg General appearance: PRESENT: no acute distress, cooperative Neck exam: ABSENT: JVD Respiratory exam: PRESENT: symmetrical, unlabored. ABSENT: tachypnea, wheezes Cardiovascular exam: PRESENT: RRR, +S1, +S2. ABSENT: tachycardia GI/Abdominal exam: PRESENT: hernia, soft, tenderness. ABSENT: firm, guarding, rebound, rigid Neurological exam: PRESENT: alert, awake, oriented to person, oriented to place, oriented to time Results Laboratory Results: 12/05/19 05:44 12/05/19 05:44 12/05/19 12/05/19 05:44 05:44 WBC 11.8 H RBC 3.77 L Hgb 9.8 L Hct 30.4 L MCV 81 MCH 26.0 L MCHC 32.3 RDW 18.8 H Plt Count 216 Sodium 133.2 L Potassium 4.4 Chloride 99 Carbon Dioxide 27 Anion Gap 7 BUN 26 H Creatinine 0.75 Est GFR ( Amer) > 60 Glucose 119 H Calcium 7.6 L 12/01/19 12/01/19 12/01/19 17:30 22:01 22:01 Creatine Kinase 42 L CK-MB (CK-2) 2.40 Troponin I 0.034 0.042 NT-Pro-B Natriuret Pep 80070 H 12/02/19 12/02/19 12/02/19 03:57 03:57 09:58 Creatine Kinase 37 L 37 L CK-MB (CK-2) 2.55 Troponin I 0.049 NT-Pro-B Natriuret Pep 12/02/19 09:58 Creatine Kinase CK-MB (CK-2) 2.33 Troponin I 0.044 NT-Pro-B Natriuret Pep Impressions: Chest X-Ray 12/01/19 17:00 IMPRESSION: Mild pulmonary edema, improved from prior. Hyperinflated lungs which can be seen with obstructive lung disease. Chest/Abdomen CTA 12/01/19 19:27 IMPRESSION: Limited study secondary to excessive respiratory motion artifact. No evidence of pulmonary embolism to the lobar level. Moderate bilateral pleural effusions, left larger than right. The left-sided pleural effusion appears increased from the previous exam dated 07/18/2019; whereas, the right-sided pleural effusion appears similar. Patchy groundglass opacity within the periphery of the right upper lobe. This could indicate an atypical infectious/inflammatory process, to include viral pneumonitis, or a focus of interstitial edema. Cardiomegaly with trace pericardial effusion. Cirrhotic appearing liver with small amount of upper abdominal ascites. TECHNICAL DOCUMENTATION: Quality ID # 436: Final reports with documentation of one or more dose reduction techniques (e.g., Automated exposure control, adjustment of the mA and/or kV according to patient size, use of iterative reconstruction technique) copyright 2011 [employer]- All Rights Reserved Assessment and Plan - Diagnosis (1) Hypotension Qualifiers: Hypotension type: other hypotension type Qualified Code(s): I95.89 - Other hypotension Is this a current diagnosis for this admission?: Yes Plan: Suspecting that this may be due to low output heart failure with cardiogenic shock. Blood pressure today in the 70s-low 80s systolic even despite being on Midodrine 10mg tid. Recheck BNP. Currently on Solu-Medrol so cannot check a.m. cortisol. Will start on dobutamine drip peripherally. (2) Acute on chronic systolic congestive heart failure, NYHA class 3 Is this a current diagnosis for this admission?: Yes Plan: Acute systolic heart failure. Most like due to noncompliance. TTE 12/02/2019 showing EF of 20%, moderate LV dilation, severe LV hypokinesis and estimated PASP of 56 mmHg TTE 01/06/2019. 2D echo LVEF less than 20%. Severe left ventricular hypokinesis. Moderately dilated left ventricle. RSVP 56%. [place] [address] up from baseline of 7000. Cardiology following. As of now, I will hold patient's beta-sarina, MILAGRO inhibitor and place patient on dobutamine given significant hypotension and possible cardiogenic shock. Renal function and liver enzymes look good at this time. Will be able to start diuresis if patient's blood pressure improves. Patient's may benefit from hemodynamics evaluation via right heart catheterization Repeat thyroid function test. (3) Acute and chronic respiratory failure Qualifiers: Respiratory failure complication: hypoxia Qualified Code(s): J96.21 - Acute and chronic respiratory failure with hypoxia Is this a current diagnosis for this admission?: Yes Plan: Most likely to acute CHF exacerbation complicated by by underlying history of COPD. Discontinue antibiotics. We will repeat chest x-ray. (4) Alcohol use disorder, severe, dependence Is this a current diagnosis for this admission?: Yes Plan: History of alcohol dependence. No sign of withdrawal at this time. (5) Diabetes mellitus type 2 in nonobese Is this a current diagnosis for this admission?: Yes Plan: Continue diabetic diet, pre-meal, sliding scale and will insulin. Hypoglycemia protocol. Accu-Chek. (6) Incarcerated right inguinal hernia Is this a current diagnosis for this admission?: Yes Plan: Has been evaluated by surgery who reduced the hernia deemed that there was no surgical intervention indicated. Patient also seems to have a ventral hernia as well. - Time Time Spent with patient: 15-24 minutes
[2019-12-05 16:31] LABS: FREE T3 1.91 pg/mL (2.77-5.27); FREE T4 (FREE THYROXINE) 1.25 ng/dL (0.78-2.19)
[2019-12-05 16:45] LABS: THYROID STIMULATING HORMONE 2.03 uIU/mL (0.47-4.68)
[2019-12-05] MEDS: DOPAMINE HCL/DEXTROSE 5%-WATER 800 MG/250 ML RTUINJ IV PRN (17:14)
[2019-12-05] MEDS ORDERED: NORMAL SALINE INJ/PF 0.9% 10 ML SDV IV PRN (18:23)
--- NOTE | 2019-12-05 18:31 | Operative Report ---
Operative Report DATE OF SURGERY: 12/05/19 PREOPERATIVE DIAGNOSIS: Congestive heart failure POSTOPERATIVE DIAGNOSIS: Same OPERATION: 1. Focused ultrasound the right neck. 2. Ultrasound directed insertion triple-lumen central venous access catheter right internal jugular vein SURGEON: EDITH ROD ANESTHESIA: Local TISSUE REMOVED OR ALTERED: None COMPLICATIONS: Noted ESTIMATED BLOOD LOSS: Scant INTRAOPERATIVE FINDINGS: See below PROCEDURE: Patient was seen on the third floor of [facility]. He is placed in the Trendelenburg position right neck was scanned with a variable frequency linear transducer and found to have a suitable internal jugular vein for cannulation. The right neck was prepped and draped with chlorhexidine. Surgical timeout was conducted. The skin was anesthetized 1% plain lidocaine. Using Seldinger technique, and ultrasound as a guide, a triple-lumen central venous access catheter was threaded into the right internal jugular vein without difficulty. There is excellent blood flow through all 3 ports. The lines were flushed with heparini zed saline and secured to the skin with 2-0 silk suture. Biopatch was applied. Sterile dressing was applied. Portable chest x-ray pending at time dictation. The catheter is felt to be suitable for use.
[2019-12-05] MEDS ORDERED: DOBUTAMINE HCL/D5W 500 MG/250 ML RTUINJ IV ONE (20:54)
--- NOTE | 2019-12-05 20:57 | RADIOLOGY REPORT (SQ) ---
CLINICAL INDICATION: hypoxia. TECHNIQUE: AP and lateral views were obtained of the chest COMPARISON: December 01, 2019. FINDINGS: The cardiomediastinal silhouette is enlarged but stable. The lungs demonstrate left basilar airspace disease. Small left effusion.. Old post manic change left clavicle. Right IJ central venous catheter tip projects over right atrium, adequate. . IMPRESSION: No significant interval change from prior. The central venous catheter is adequate .
[2019-12-05] MEDS: DOBUTAMINE HCL/D5W 500 MG/250 ML RTUINJ IV PRN (21:09)
[2019-12-05] MEDS: ACETAMINOPHEN 325 MG TABLET PO PRN (21:17)
[2019-12-05] MEDS: SIMVASTATIN 40 MG TABLET PO SCH (21:18)
[2019-12-05] MEDS: HALOPERIDOL LACTATE INJ 5 MG/1 ML VIAL IV PRN (21:18)
[2019-12-05] MEDS: TRAMADOL HCL 50 MG TABLET PO PRN (21:19)
--- NOTE | 2019-12-05 22:18 | Progress Note ---
Provider Note Provider Note: CARDIOLOGY PROGRESS NOTE by Dr. Lorenza Sandoval on 12/05/2019. SUBJECTIVE: The patient appears to be lethargic and drowsy with a low blood pressure in the 70s. But still states that he hurts all over and he wants pain medication. He seems to be lying flat. He does have some shortness of breath and wheezing. He still has bibasilar rales of CHF. Hence we need to intensify the patient's treatment with inotropes. This is to bring his blood pressure up and also increase the contractility of his heart. Also dobutamine can help in his pulmonary hypertension. There is only trace leg edema. There is no arrhythmia seen on the monitor. The patient is afebrile. He denies any chest pain or discomfort. PHYSICAL EXAMINATION: The patient appears to be chronically ill. And malnourished. Selected Entries 12/05/19 12/05/19 12/05/19 05:05 17:37 17:45 Pulse Rate 77 78 Respiratory Rate Respiratory Depth Respiratory Pattern Respiratory Effort Blood Pressure 95/53 L 76/20 L Blood Pressure 54 67 38 Mean O2 Sat by Pulse Oximetry Oxygen Delivery Method ( includes room air) Oxygen Flow Rate 12/05/19 12/05/19 20:41 21:00 Pulse Rate 70 98 Respiratory 16 Rate Respiratory Normal Depth Respiratory Normal Pattern Respiratory Non-Labored Effort Blood Pressure 120/73 Blood Pressure 88 Mean O2 Sat by Pulse 91 L Oximetry Oxygen Delivery Nasal Cannula Method ( includes room air) Oxygen Flow 1 Rate HEAD: Is atraumatic normocephalic. EYES: Pupils are equal round regular reactive to light accommodation. Extraocular movements are normal. There is no conjunctival pallor. There is no scleral icterus. EARS: Tympanic membranes are intact. External auditory canals are clear. NOSE: There is no deviated nasal septum. There is no inflammation of the nasal mucous membrane. MOUTH: Mucous noted in the mouth are moist tongue is moist. There is no ulcers. There is no bleeding from the gums. THROAT: There is no redness of the oropharynx. There is no exudates. SKIN: There is no skin rashes or skin lesions. There is no particular ecchymosis. NECK: Is supple. There is JVD present carotids are equal there is no bruits. There is no lymphadenopathy. There is no goiter. There is no accessory muscle respiration use. Trachea central LUNGS: There is diminished air entry and prolonged expiration. On percussion there is hyperresonance. He has scattered rhonchi and few end expiratory wheezing. He has dry crackles in both the bases along with fine rales of CHF. HEART: S1-S2 is heard. S1 is of normal intensity. There is no S3 gallop. There is no S4 gallop. There is systolic murmur left sternal border and the apex there is no rub. ABDOMEN: Is obese. Nontender. There is no hepatosplenomegaly. Bowel sounds are well heard. There is no tender areas of masses. EXTREMITIES: Femorals are deep. Femorals are diminished. Leg pulses are diminished. There is 2 + bilateral pedal edema present. There is no DVT. There is no cellulitis. There is no calf tenderness. There is no sinus or clubbing. Capillary refill is normal. CORD MAKER: The patient is conscious awake alert oriented x3 with no focal deficits. PSYCHIATRIC: The patient judgment insight are intact, and his affect is normal. Labs- All tests 24 hr 12/05/19 12/05/19 12/05/19 05:44 05:44 05:44 WBC 11.8 H RBC 3.77 L Hgb 9.8 L Hct 30.4 L MCV 81 MCH 26.0 L MCHC 32.3 RDW 18.8 H Plt Count 216 Sodium 133.2 L Potassium 4.4 Chloride 99 Carbon Dioxide 27 Anion Gap 7 BUN 26 H Creatinine 0.75 Est GFR ( Amer) > 60 Est GFR (MDRD) Non-Af > 60 Glucose 119 H Calcium 7.6 L NT-Pro-B Natriuret Pep 8980 H TSH Free T4 Free T3 pg/mL 12/05/19 05:44 WBC RBC Hgb Hct MCV MCH MCHC RDW Plt Count Sodium Potassium Chloride Carbon Dioxide Anion Gap BUN Creatinine Est GFR ( Amer) Est GFR (MDRD) Non-Af Glucose Calcium NT-Pro-B Natriuret Pep TSH 2.03 Free T4 1.25 Free T3 pg/mL 1.91 L Chest X-Ray 12/01/19 17:00 IMPRESSION: Mild pulmonary edema, improved from prior. Hyperinflated lungs which can be seen with obstructive lung disease. Chest/Abdomen CTA 12/01/19 19:27 IMPRESSION: Limited study secondary to excessive respiratory motion artifact. No evidence of pulmonary embolism to the lobar level. Moderate bilateral pleural effusions, left larger than right. The left-sided pleural effusion appears increased from the previous exam dated 07/18/2019; whereas, the right-sided pleural effusion appears similar. Patchy groundglass opacity within the periphery of the right upper lobe. This could indicate an atypical infectious/inflammatory process, to include viral pneumonitis, or a focus of interstitial edema. Cardiomegaly with trace pericardial effusion. Cirrhotic appearing liver with small amount of upper abdominal ascites. TECHNICAL DOCUMENTATION: Quality ID # 436: Final reports with documentation of one or more dose reduction techniques (e.g., Automated exposure control, adjustment of the mA and/or kV according to patient size, use of iterative reconstruction technique) copyright 2011 [employer]- All Rights Reserved Chest X-Ray 12/05/19 00:00 IMPRESSION: No significant interval change from prior. The central venous catheter is adequate . The patient's 24-hour intake is 2336 mL. Patient's output is 450 mL. IMPRESSION/RECOMMENDATION: 1. Hypotension: Most likely secondary to pump failure due to poor LV contractility. Hence will ask the surgical list to place it in a triple-lumen catheter and start the patient on IV dopamine and if the blood pressure is comes up we will start the patient on dobutamine to help the patient's contractility and the patient's pulmonary hypertension also. 2. Acute on chronic respiratory failure: This is a combination of acute exacerbation of COPD, pneumonia, bronchitis, and congestive heart failure. 3. Acute exacerbation of COPD.: Continue antibiotics continue respiratory treatments and oxygen. 4. Acute on chronic systolic heart failure: The patient still is in significant heart failure with a combination of acute exacerbation of COPD. The heart failure is due to acute on chronic systolic heart failure. Continue his beta- sarina and ARB, and Lasix. The increase in the midodrine the patient's blood pressure is slightly better.. The patient's (ejection fraction persist to be 20%. The patient will qualify for an ICD, but I am not sure if the patient will be compliant with this. The patient does not seem to be interested for an AICD placement at present. We will try the patient over the acute exacerbation of COPD and then talk to him about it. 5. Right inguinal hernia status post reduction by surgical hist. The patient will be high risk for severe surgery under general anesthesia or spinal anesthesia. The patient most likely if at all he has to have hernia surgery this should be done under local and sedation. 6. 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 Continue anti-cardiomyopathy treatment as per gold standard which is being difficult to be done, due to his low blood pressure. Hence we will start the patient on inotropes. 6.Coronary artery disease: History of myocardial infarction in the past: No evidence of anginal symptoms. No evidence of elevated troponin I at this admission. 7. Hypertension: At present blood pressure is low. Will continue the patient on midodrine, 10 mg p.o. 3 times daily. 8. History of cirrhosis of the liver: Secondary to chronic alcohol abuse. 9. History of alcohol abuse and tobacco abuse disorder. Ill effects of alcohol and tobacco have been discussed with the patient tobacco cessation counseling was done. This took about 4 minutes. 10. Hyperlipidemia: Continue statins. Medications reviewed. Medications added in the form of dopamine and dobutamine. Hence medical decision making is of high complexity. 50 minutes spent on the patient with more than 50% of time spent in direct patient care. Medical regimen changes and management plan discussed with her attending provider on the case. Medical. Will follow.
[2019-12-06] MEDS: LORAZEPAM INJ 2 MG/1 ML VIAL IV PRN ×2 (01:22→23:01)
[2019-12-06] MEDS: PHARMACY COMMUNICATION ORDER MC SCH ×2 (01:29→22:33)
[2019-12-06] MEDS: IPRATROPIUM BROMIDE 0.02% NEB 0.5 MG/2.5 ML AMPUL NEB SCH ×4 (01:47→20:11)
[2019-12-06] MEDS: LEVALBUTEROL HCL NEB 1.25 MG/3 ML AMPUL NEB SCH ×4 (01:47→20:11)
[2019-12-06] MEDS: ACETAMINOPHEN 325 MG TABLET PO PRN (05:50)
[2019-12-06] MEDS: TRAMADOL HCL 50 MG TABLET PO PRN ×2 (05:51→22:32)
[2019-12-06] MEDS: GABAPENTIN 400 MG CAPSULE PO SCH ×3 (05:51→22:31)
[2019-12-06] MEDS: HALOPERIDOL LACTATE INJ 5 MG/1 ML VIAL IV PRN ×2 (05:51→22:33)
[2019-12-06] MEDS: METHYLPREDNISOLONE INJ 125 MG/2 ML SDV IV SCH ×2 (05:52→13:41)
[2019-12-06] MEDS: HEPARIN SOD (PORCINE) 5,000 UNIT/ML 1 ML VIAL SUBCUT SCH ×3 (05:52→22:33)
[2019-12-06 06:13] LABS: ALBUMIN 2.9 g/dL (3.5-5.0); ALKALINE PHOSPHATASE 126 U/L (38-126); ANION GAP 6 (5-19); ASPARTATE AMINO TRANSFERASE 20 U/L (17-59); BILIRUBIN,DIRECT 0.1 mg/dL (0.0-0.4); BILIRUBIN,TOTAL 0.4 mg/dL (0.2-1.3); BLOOD UREA NITROGEN 33 mg/dL (7-20); CARBON DIOXIDE 31 mmol/L (22-30); CHLORIDE 98 mmol/L (98-107); GLUCOSE 123 mg/dL (75-110); POTASSIUM 4.4 mmol/L (3.6-5.0); TOTAL PROTEIN 6.4 g/dL (6.3-8.2)
[2019-12-06] MEDS: BUDESONIDE NEB 0.5 MG/2 ML AMPUL NEB SCH ×2 (08:59→20:11)
[2019-12-06] MEDS: DOCUSATE SODIUM 100 MG CAPSULE PO SCH (09:57)
[2019-12-06] MEDS: FUROSEMIDE INJ/PF 40 MG/4 ML SDV IV SCH ×2 (09:57→17:17)
[2019-12-06] MEDS: FOLIC ACID 1 MG TABLET PO SCH (09:57)
[2019-12-06] MEDS: FAMOTIDINE 20 MG TABLET PO SCH ×2 (09:57→22:34)
[2019-12-06] MEDS: LIDOCAINE 5% (700 MG) TRANSDERMAL ADH..PATCH TP SCH (09:57)
[2019-12-06] MEDS: MIDODRINE HCL 5 MG TABLET PO SCH ×3 (09:57→17:16)
--- NOTE | 2019-12-06 15:14 | PDOC PROGRESS REPORT ---
Subjective Progress Note for:: 12/06/19 Subjective:: Today patient endorses improvement in his breathing. Denies any chest pain. Still having pain in his abdomen and back. Reason For Visit: ACUTE PULMONARY EDEMA,ACUTE ON CHRONIC RESPIRATORY Physical Exam Vital Signs: Temp Pulse Resp BP Pulse Ox 97.5 F 93 18 110/64 90 L 12/06/19 07:22 12/06/19 14:00 12/06/19 13:42 12/06/19 13:00 12/06/19 13:42 Intake & Output 12/05/19 12/06/19 12/07/19 06:59 06:59 06:59 Intake Total 2336 1462 342 Output Total 450 1475 Balance 1886 -13 342 Weight 69.1 kg 69.3 kg General appearance: PRESENT: no acute distress, cooperative Neck exam: ABSENT: JVD Respiratory exam: PRESENT: symmetrical, unlabored, wheezes. ABSENT: rhonchi, tachypnea Cardiovascular exam: PRESENT: RRR, +S1, +S2. ABSENT: tachycardia GI/Abdominal exam: PRESENT: hernia, soft, tenderness. ABSENT: distended, firm, guarding, rebound, rigid Neurological exam: PRESENT: alert, awake, oriented to person, oriented to place, oriented to time, oriented to situation Results Laboratory Results: 12/05/19 05:44 12/06/19 05:18 12/05/19 12/06/19 05:44 05:18 Sodium 135.4 L Potassium 4.4 Chloride 98 Carbon Dioxide 31 H Anion Gap 6 BUN 33 H Creatinine 0.85 Est GFR ( Amer) > 60 Glucose 123 H Calcium 8.0 L Total Bilirubin 0.4 AST 20 Alkaline Phosphatase 126 Total Protein 6.4 Albumin 2.9 L TSH 2.03 Free T4 1.25 Free T3 pg/mL 1.91 L 12/01/19 12/01/19 12/01/19 17:30 22:01 22:01 Creatine Kinase 42 L CK-MB (CK-2) 2.40 Troponin I 0.034 0.042 NT-Pro-B Natriuret Pep 24905 H 12/02/19 12/02/19 12/02/19 03:57 03:57 09:58 Creatine Kinase 37 L 37 L CK-MB (CK-2) 2.55 Troponin I 0.049 NT-Pro-B Natriuret Pep 12/02/19 12/05/19 09:58 05:44 Creatine Kinase CK-MB (CK-2) 2.33 Troponin I 0.044 NT-Pro-B Natriuret Pep 8980 H Impressions: Chest/Abdomen CTA 12/01/19 19:27 IMPRESSION: Limited study secondary to excessive respiratory motion artifact. No evidence of pulmonary embolism to the lobar level. Moderate bilateral pleural effusions, left larger than right. The left-sided pleural effusion appears increased from the previous exam dated 07/18/2019; whereas, the right-sided pleural effusion appears similar. Patchy groundglass opacity within the periphery of the right upper lobe. This could indicate an atypical infectious/inflammatory process, to include viral pneumonitis, or a focus of interstitial edema. Cardiomegaly with trace pericardial effusion. Cirrhotic appearing liver with small amount of upper abdominal ascites. TECHNICAL DOCUMENTATION: Quality ID # 436: Final reports with documentation of one or more dose reduction techniques (e.g., Automated exposure control, adjustment of the mA and/or kV according to patient size, use of iterative reconstruction technique) copyright 2011 [employer]- All Rights Reserved Chest X-Ray 12/05/19 00:00 IMPRESSION: No significant interval change from prior. The central venous catheter is adequate . Assessment and Plan - Diagnosis (1) Hypotension Qualifiers: Hypotension type: other hypotension type Qualified Code(s): I95.89 - Other hypotension Is this a current diagnosis for this admission?: Yes Plan: Suspecting that this may be due to low output heart failure with cardiogenic shock. Blood pressure today in the 70s-low 80s systolic even despite being on Midodrine 10mg tid. Currently on dobutamine and dopamine low-dose drip (2) Acute on chronic systolic congestive heart failure, NYHA class 3 Is this a current diagnosis for this admission?: Yes Plan: Acute systolic heart failure. Most like due to noncompliance. TTE 12/02/2019 showing EF of 20%, moderate LV dilation, severe LV hypokinesis and estimated PASP of 56 mmHg TTE 01/06/2019. 2D echo LVEF less than 20%. Severe left ventricular hypokinesis. Moderately dilated left ventricle. RSVP 56%. Cardiology following. Holding beta-sarina and MILAGRO inhibitor. Continue dobutamine and dopamine drip. Starting IV Lasix. Will monitor bicarbonate level and if it rises, will add Diamox. (3) Acute and chronic respiratory failure Qualifiers: Respiratory failure complication: hypoxia Qualified Code(s): J96.21 - Acute and chronic respiratory failure with hypoxia Is this a current diagnosis for this admission?: Yes Plan: Most likely to acute CHF exacerbation complicated by by underlying history of COPD. (4) Alcohol use disorder, severe, dependence Is this a current diagnosis for this admission?: Yes Plan: History of alcohol dependence. No sign of withdrawal at this time. (5) Diabetes mellitus type 2 in nonobese Is this a current diagnosis for this admission?: Yes Plan: Continue diabetic diet, pre-meal, sliding scale and will insulin. Hypoglycemia protocol. Accu-Chek. (6) Incarcerated right inguinal hernia Is this a current diagnosis for this admission?: Yes Plan: Has been evaluated by surgery who reduced the hernia deemed that there was no surgical intervention indicated. Patient also seems to have a ventral hernia as well. - Time Time Spent with patient: 15-24 minutes
[2019-12-06] MEDS: PREDNISONE 20 MG TABLET PO SCH (17:16)
--- NOTE | 2019-12-06 19:17 | Progress Note ---
Provider Note Provider Note: CARDIOLOGY PROGRESS NOTE by Dr. Lorenza Sandoval on 12/06/2019. SUBJECTIVE: The patient states he feels better, but still is wheezing. He has no PND orthopnea. There is no chest pain discomfort. There is no arrhythmias seen. There is no arrhythmia seen on the inotropes. There is no TIA CVA symptoms. There is trace pedal edema. His urine output is better. PHYSICAL EXAMINATION: The patient appears to be chronically ill and malnourished, but in no acute distress. Selected Entries 12/06/19 12/06/19 12/06/19 13:42 14:00 14:55 Pulse Rate 104 H 93 Respiratory 18 Rate Respiratory Normal Depth Respiratory Normal Pattern Respiratory Non-Labored Effort Blood Pressure 121/67 Blood Pressure 85 Mean O2 Sat by Pulse 90 L Oximetry Oxygen Flow 0.5 Rate 12/06/19 12/06/19 17:15 18:00 Pulse Rate 108 H Respiratory Rate Respiratory Depth Respiratory Pattern Respiratory Effort Blood Pressure 130/70 H 112/94 H Blood Pressure 90 Mean O2 Sat by Pulse Oximetry Oxygen Flow Rate HEAD: Is atraumatic normocephalic. EYES: Pupils are equal round regular reactive to light accommodation. Extraocular movements are normal. There is no conjunctival pallor. There is no scleral icterus. EARS: Tympanic membranes are intact. External auditory canals are clear. NOSE: There is no deviated nasal septum. There is no inflammation of the nasal mucous membrane. MOUTH: Mucous n oted in the mouth are moist tongue is moist. There is no ulcers. There is no bleeding from the gums. THROAT: There is no redness of the oropharynx. There is no exudates. SKIN: There is no skin rashes or skin lesions. There is no particular ecchymosis. NECK: Is supple. There is JVD present carotids are equal there is no bruits. There is no lymphadenopathy. There is no goiter. There is no accessory muscle respiration use. Trachea central LUNGS: There is diminished air entry and prolonged expiration. On percussion there is hyperresonance. He has scattered rhonchi and few end expiratory wheezing. He has dry crackles in both the bases along with fine rales of CHF. HEART: S1-S2 is heard. S1 is of normal intensity. There is no S3 gallop. There is no S4 gallop. There is systolic murmur left sternal border and the apex there is no rub. ABDOMEN: Is obese. Nontender. There is no hepatosplenomegaly. Bowel sounds are well heard. There is no tender areas of masses. EXTREMITIES: Femorals are deep. Femorals are diminished. Leg pulses are diminished. There is 2 + bilateral pedal edema present. There is no DVT. There is no cellulitis. There is no calf tenderness. There is no sinus or clubbing. Capillary refill is normal. [employer]ISH OPENER: The patient is conscious awake alert oriented x3 with no focal deficits. PSYCHIATRIC: The patient judgment insight are intact, and his affect is normal. The patient's 24-hour intake is 1462 mL. Patient's output is 1475mL. Labs- All tests 24 hr 12/06/19 05:18 Sodium 135.4 L Potassium 4.4 Chloride 98 Carbon Dioxide 31 H Anion Gap 6 BUN 33 H Creatinine 0.85 Est GFR ( Amer) > 60 Est GFR (MDRD) Non-Af > 60 Glucose 123 H Calcium 8.0 L Total Bilirubin 0.4 Direct Bilirubin 0.1 Neonat Total Bilirubin Not Reportable Neonat Direct Bilirubin Not Reportable Neonat Indirect Bili Not Reportable AST 20 ALT 10 Alkaline Phosphatase 126 Total Protein 6.4 Albumin 2.9 L Chest X-Ray 12/01/19 17:00 IMPRESSION: Mild pulmonary edema, improved from prior. Hyperinflated lungs which can be seen with obstructive lung disease. Chest/Abdomen CTA 12/01/19 19:27 IMPRESSION: Limited study secondary to excessive respiratory motion artifact. No evidence of pulmonary embolism to the lobar level. Moderate bilateral pleural effusions, left larger than right. The left-sided pleural effusion appears increased from the previous exam dated 07/18/2019; whereas, the right-sided pleural effusion appears similar. Patchy groundglass opacity within the periphery of the right upper lobe. This could indicate an atypical infectious/inflammatory process, to include viral pneumonitis, or a focus of interstitial edema. Cardiomegaly with trace pericardial effusion. Cirrhotic appearing liver with small amount of upper abdominal ascites. TECHNICAL DOCUMENTATION: Quality ID # [id number]: Final reports with documentation of one or more dose reduction techniques (e.g., Automated exposure control, adjustment of the mA and/or kV according to patient size, use of iterative reconstruction technique) copyright 2011 [employer]- All Rights Reserved Chest X-Ray 12/05/19 00:00 IMPRESSION: No significant interval change from prior. The central venous catheter is adequate . IMPRESSION/RECOMMENDATION: 1. Hypotension: Most likely secondary to pump failure due to poor LV contractility. With dobutamine and dopamine and the patient's blood pressure is good. We will continue the patient dopamine at current dose will increase the dobutamine to 5 mcg/kg/min. Note Lasix has been started. 2. Acute on chronic respiratory failure: This is a combination of acute exacerbation of COPD, pneumonia, bronchitis, and congestive heart failure. 3. Acute exacerbation of COPD.: Continue antibiotics continue respiratory treatments and oxygen. 4. Acute on chronic systolic heart failure: The patient still is in significant heart failure with a combination of acute exacerbation of COPD. The heart failure is due to acute on chronic systolic heart failure. Continue his beta- sarina and ARB, and Lasix. The increase in the midodrine the patient's blood pressure is slightly better.. The patient's (ejection fraction persist to be 20%. The patient will qualify for an ICD, but I am not sure if the patient will be compliant with this. The patient does not seem to be interested for an AICD placement at present. We will tide the patient over the acute exacerbation of COPD and CHF ,and then talk to him about it. 5. Right inguinal hernia status post reduction by surgical hist. The patient will be high risk for severe surgery under general anesthesia or spinal anesthesia. The patient most likely if at all he has to have hernia surgery this should be done under local and sedation. 6. 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 Continue anti-cardiomyopathy treatment as per gold standard which is being difficult to be done, due to his low blood pressure. Hence we will start the patient on inotropes. 6.Coronary artery disease: History of myocardial infarction in the past: No evidence of anginal symptoms. No evidence of elevated troponin I at this admission. 7. Hypertension: At present blood pressure is low. Will continue the patient on midodrine, 10 mg p.o. 3 times daily. 8. History of cirrhosis of the liver: Secondary to chronic alcohol abuse. 9. History of alcohol abuse and tobacco abuse disorder. Ill effects of alcohol and tobacco have been discussed with the patient tobacco cessation counseling was done. This took about 4 minutes. 10. Hyperlipidemia: Continue statins. Medications reviewed. Dobutamine dose increased to 5 mcg/kg/min. Hence medical decision making is of high complexity. 50 minutes spent on the patient with more than 50% of time spent in direct patient care. Medical regimen changes and management plan discussed with her attending provider on the case. Medical. Will follow.
[2019-12-06] MEDS: SIMVASTATIN 40 MG TABLET PO SCH (22:32)
[2019-12-06] MEDS: DOPAMINE HCL/DEXTROSE 5%-WATER 800 MG/250 ML RTUINJ IV PRN (22:51)
[2019-12-06] MEDS: DOBUTAMINE HCL/D5W 500 MG/250 ML RTUINJ IV PRN (22:51)
[2019-12-07] MEDS: IPRATROPIUM BROMIDE 0.02% NEB 0.5 MG/2.5 ML AMPUL NEB SCH ×5 (02:08→23:56)
[2019-12-07] MEDS: LEVALBUTEROL HCL NEB 1.25 MG/3 ML AMPUL NEB SCH ×4 (02:09→23:56)
[2019-12-07] MEDS: ACETAMINOPHEN 325 MG TABLET PO PRN (05:24)
[2019-12-07] MEDS: GABAPENTIN 400 MG CAPSULE PO SCH ×3 (05:24→23:02)
[2019-12-07] MEDS: HALOPERIDOL LACTATE INJ 5 MG/1 ML VIAL IV PRN (05:24)
[2019-12-07] MEDS: HEPARIN SOD (PORCINE) 5,000 UNIT/ML 1 ML VIAL SUBCUT SCH ×3 (05:26→23:01)
[2019-12-07 06:22] LABS: ALKALINE PHOSPHATASE 123 U/L (38-126); ANION GAP 8 (5-19); ASPARTATE AMINO TRANSFERASE 18 U/L (17-59); BILIRUBIN,TOTAL 0.3 mg/dL (0.2-1.3); BLOOD UREA NITROGEN 35 mg/dL (7-20); CARBON DIOXIDE 34 mmol/L (22-30); CHLORIDE 95 mmol/L (98-107); GLUCOSE 100 mg/dL (75-110); POTASSIUM 3.8 mmol/L (3.6-5.0); TOTAL PROTEIN 6.3 g/dL (6.3-8.2)
[2019-12-07] MEDS: TRAMADOL HCL 50 MG TABLET PO PRN (06:40)
[2019-12-07] MEDS: BUDESONIDE NEB 0.5 MG/2 ML AMPUL NEB SCH ×2 (08:08→20:30)
[2019-12-07] MEDS: FAMOTIDINE 20 MG TABLET PO SCH ×2 (09:36→23:02)
[2019-12-07] MEDS: MIDODRINE HCL 5 MG TABLET PO SCH ×3 (09:36→18:05)
[2019-12-07] MEDS: FOLIC ACID 1 MG TABLET PO SCH (09:37)
[2019-12-07] MEDS: DOCUSATE SODIUM 100 MG CAPSULE PO SCH (09:37)
[2019-12-07] MEDS: FUROSEMIDE INJ/PF 40 MG/4 ML SDV IV SCH ×2 (09:37→18:46)
[2019-12-07] MEDS: LIDOCAINE 5% (700 MG) TRANSDERMAL ADH..PATCH TP SCH (09:37)
[2019-12-07] MEDS: POTASSIUM CHLORIDE 20 MEQ PACKET PO SCH (09:37)
[2019-12-07] MEDS: PREDNISONE 20 MG TABLET PO SCH ×2 (09:37→18:46)
--- NOTE | 2019-12-07 11:23 | PDOC PROGRESS REPORT ---
Subjective Progress Note for:: 12/07/19 Subjective:: Patient resting comfortably today. Denies any shortness of breath or chest pain at this time. Still admits to some abdominal pain but not too bad today. Reason For Visit: ACUTE PULMONARY EDEMA,ACUTE ON CHRONIC RESPIRATORY Physical Exam Vital Signs: Temp Pulse Resp BP Pulse Ox 97.3 F 85 16 134/88 H 94 12/07/19 04:00 12/07/19 08:08 12/07/19 08:08 12/07/19 08:06 12/07/19 08:08 Intake & Output 12/06/19 12/07/19 12/08/19 06:59 06:59 06:59 Intake Total 1462 1690 Output Total 1475 2800 Balance -13 -1110 Weight 69.3 kg 69.6 kg 69.6 kg General appearance: PRESENT: no acute distress, cooperative Neck exam: ABSENT: JVD Respiratory exam: PRESENT: crackles, symmetrical, unlabored, wheezes. ABSENT: tachypnea Cardiovascular exam: PRESENT: RRR, +S1, +S2. ABSENT: tachycardia GI/Abdominal exam: PRESENT: normal bowel sounds, soft. ABSENT: rebound, rigid, tenderness Neurological exam: PRESENT: alert, awake, oriented to person, oriented to place, oriented to time Results Laboratory Results: 12/05/19 05:44 12/07/19 05:00 12/07/19 05:00 Sodium 136.6 L Potassium 3.8 Chloride 95 L Carbon Dioxide 34 H Anion Gap 8 BUN 35 H Creatinine 0.92 Est GFR ( Amer) > 60 Glucose 100 Calcium 8.0 L Magnesium 1.6 Total Bilirubin 0.3 AST 18 Alkaline Phosphatase 123 Total Protein 6.3 Albumin 3.0 L 12/01/19 12/01/19 12/01/19 17:30 22:01 22:01 Creatine Kinase 42 L CK-MB (CK-2) 2.40 Troponin I 0.034 0.042 NT-Pro-B Natriuret Pep 96626 H 12/02/19 12/02/19 12/02/19 03:57 03:57 09:58 Creatine Kinase 37 L 37 L CK-MB (CK-2) 2.55 Troponin I 0.049 NT-Pro-B Natriuret Pep 12/02/19 12/05/19 09:58 05:44 Creatine Kinase CK-MB (CK-2) 2.33 Troponin I 0.044 NT-Pro-B Natriuret Pep 8980 H Impressions: Chest/Abdomen CTA 12/01/19 19:27 IMPRESSION: Limited study secondary to excessive respiratory motion artifact. No evidence of pulmonary embolism to the lobar level. Moderate bilateral pleural effusions, left larger than right. The left-sided pleural effusion appears increased from the previous exam dated 07/18/2019; whereas, the right-sided pleural effusion appears similar. Patchy groundglass opacity within the periphery of the right upper lobe. This could indicate an atypical infectious/inflammatory process, to include viral pneumonitis, or a focus of interstitial edema. Cardiomegaly with trace pericardial effusion. Cirrhotic appearing liver with small amount of upper abdominal ascites. TECHNICAL DOCUMENTATION: Quality ID # [id number]: Final reports with documentation of one or more dose reduction techniques (e.g., Automated exposure control, adjustment of the mA and/or kV according to patient size, use of iterative reconstruction technique) copyright 2011 [employer]- All Rights Reserved Chest X-Ray 12/05/19 00:00 IMPRESSION: No significant interval change from prior. The central venous catheter is adequate . Assessment and Plan - Diagnosis (1) Hypotension Qualifiers: Hypotension type: other hypotension type Qualified Code(s): I95.89 - Other hypotension Is this a current diagnosis for this admission?: Yes Plan: Suspecting that this may be due to low output heart failure with cardiogenic shock. On Midodrine. Currently on dobutamine and dopamine drip (2) Acute on chronic systolic congestive heart failure, NYHA class 3 Is this a current diagnosis for this admission?: Yes Plan: Acute systolic heart failure. Most like due to noncompliance. TTE 12/02/2019 showing EF of 20%, moderate LV dilation, severe LV hypokinesis and estimated PASP of 56 mmHg TTE 01/06/2019. 2D echo LVEF less than 20%. Severe left ventricular hypokinesis. Moderately dilated left ventricle. RSVP 56%. Cardiology following. Holding beta-sarina and MILAGRO inhibitor. Continue dobutamine and dopamine drip. Continue IV Lasix. Bicarbonate levels rising. Will check VBG and if truly alkalotic, will add Diamox. (3) COPD exacerbation Is this a current diagnosis for this admission?: Yes Plan: Receiving standing nebulizer treatments. Prednisone 20 mg twice daily. ICS. We will wean prednisone tomorrow. (4) Acute and chronic respiratory failure Qualifiers: Respiratory failure complication: hypoxia Qualified Code(s): J96.21 - Acute and chronic respiratory failure with hypoxia Is this a current diagnosis for this admission?: Yes Plan: Most likely to acute CHF exacerbation complicated by by underlying history of COPD. I believe he should be able to wean off oxygen today. (5) Alcohol use disorder, severe, dependence Is this a current diagnosis for this admission?: Yes Plan: History of alcohol dependence. No sign of withdrawal at this time. Folic acid. (6) Diabetes mellitus type 2 in nonobese Is this a current diagnosis for this admission?: Yes Plan: Continue diabetic diet, pre-meal, sliding scale and will insulin. Hypoglycemia protocol. Accu-Chek. (7) Incarcerated right inguinal hernia Is this a current diagnosis for this admission?: Yes Plan: Has been evaluated by surgery who reduced the hernia deemed that there was no surgical intervention indicated. Patient also seems to have a ventral hernia as well. - Time Time Spent with patient: Less than 15 minutes
[2019-12-07 17:26] LABS: VENOUS BLOOD BASE EXCESS 5.2 mmol/L; VENOUS BLOOD HCO3 31.5 mmol/L (20-32); VENOUS BLOOD PCO2 55.3 mmHg (35-63); VENOUS BLOOD PH 7.37 (7.30-7.42)
--- NOTE | 2019-12-07 22:26 | Progress Note ---
Provider Note Provider Note: CARDIOLOGY PROGRESS NOTE by Dr. Lorenza Goddard on 12/07/2019. SUBJECTIVE: The patient states that shortness of breath is better. He is not wheezing anymore. There is no chest pain or discomfort. There is no PND orthopnea. He still has some cough productive of very scanty yellowish sputum. There is no arrhythmia seen on the monitor. The patient's urine output is very good with dobutamine and dopamine. PHYSICAL EXAMINATION: The patient appears to be chronically ill. In no acute distress though. Selected Entries 12/07/19 12/07/19 14:30 20:28 Temperature 97.5 F Temperature Oral Source Pulse Rate 89 Blood Pressure 123/70 Blood Pressure 87 Mean Oxygen Flow 1.00 Rate Oxygen Delivery Nasal Cannula Method Percent of 95 Oxygen HEAD: Is atraumatic normocephalic. EYES: Pupils are equal round regular reactive to light accommodation. Extraocular movements are normal. There is no conjunctival pallor. There is no scleral icterus. EARS: Tympanic membranes are intact. External auditory canals are clear. NOSE: There is no deviated nasal septum. There is no inflammation of the nasal mucous membrane. MOUTH: Mucous noted in the mouth are moist tongue is moist. There is no ulcers. There is no bleeding from the gums. THROAT: There is no redness of the oropharynx. There is no exudates. SKIN: There is no skin rashes or skin lesions. There is no particular ecchymosis. NECK: Is supple. There is JVD present carotids are equal there is no bruits. There is no lymphadenopathy. There is no goiter. There is no accessory muscle respiration use. Trachea central LUNGS: There is diminished air entry and prolonged expiration. On percussion there is hyperresonance. He has scattered rhonchi and few end expiratory wheezing. He has dry crackles in both the bases along with fine rales of CHF. HEART: S1-S2 is heard. S1 is of normal intensity. There is no S3 gallop. There is no S4 gallop. There is systolic murmur left sternal border and the apex there is no rub. ABDOMEN: Is obese. Nontender. There is no hepatosplenomegaly. Bowel sounds are well heard. There is no tender areas of masses. EXTREMITIES: Femorals are deep. Femorals are diminished. Leg pulses are diminished. There is 2 + bilateral pedal edema present. There is no DVT. There is no cellulitis. There is no calf tenderness. There is no sinus or clubbing. Capillary refill is normal. 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 PSYCHIATRIC: The patient judgment insight are intact, and his affect is normal. The patient's 24-hour intake is 1690 mL. Patient's output is 2800mL. Labs- All tests 24 hr 12/07/19 12/07/19 05:00 17:05 VBG pH 7.37 VBG pCO2 55.3 VBG HCO3 31.5 VBG Base Excess 5.2 Sodium 136.6 L Potassium 3.8 Chloride 95 L Carbon Dioxide 34 H Anion Gap 8 BUN 35 H Creatinine 0.92 Est GFR ( Amer) > 60 Est GFR (MDRD) Non-Af > 60 Glucose 100 Calcium 8.0 L Magnesium 1.6 Total Bilirubin 0.3 Direct Bilirubin 0.0 Neonat Total Bilirubin Not Reportable Neonat Direct Bilirubin Not Reportable Neonat Indirect Bili Not Reportable AST 18 ALT 10 Alkaline Phosphatase 123 Total Protein 6.3 Albumin 3.0 L Chest X-Ray 12/01/19 17:00 IMPRESSION: Mild pulmonary edema, improved from prior. Hyperinflated lungs which can be seen with obstructive lung disease. Chest/Abdomen CTA 12/01/19 19:27 IMPRESSION: Limited study secondary to excessive respiratory motion artifact. No evidence of pulmonary embolism to the lobar level. Moderate bilateral pleural effusions, left larger than right. The left-sided pleural effusion appears increased from the previous exam dated 07/18/2019; whereas, the right-sided pleural effusion appears similar. Patchy groundglass opacity within the periphery of the right upper lobe. This could indicate an atypical infectious/inflammatory process, to include viral pneumonitis, or a focus of interstitial edema. Cardiomegaly with trace pericardial effusion. Cirrhotic appearing liver with small amount of upper abdominal ascites. TECHNICAL DOCUMENTATION: Quality ID # [id number]: Final reports with documentation of one or more dose reduction techniques (e.g., Automated exposure control, adjustment of the mA and/or kV according to patient size, use of iterative reconstruction technique) copyright 2010 [employer]- All Rights Reserved Chest X-Ray 12/05/19 00:00 IMPRESSION: No significant interval change from prior. The central venous catheter is adequate . IMPRESSION/RECOMMENDATION: 1. Hypotension: Most likely secondary to pump failure due to poor LV contractility. With dobutamine and dopamine and the patient's blood pressure is good. We will continue the patient dopamine at 2.5 mcg/kg/min and continue the dobutamine to 5 mcg/kg/min. Note Lasix has been started. The patient has very good urine output. 2. Acute on chronic respiratory failure: This is a combination of acute exacerbation of COPD, pneumonia, bronchitis, and congestive heart failure. 3. Acute exacerbation of COPD.: Continue antibiotics continue respiratory treatments and oxygen. 4. Acute on chronic systolic heart failure: The patient still is in significant heart failure with a combination of acute exacerbation of COPD. The heart failure is due to acute on chronic systolic heart failure. Continue his beta- sarina and ARB, and Lasix. The increase in the midodrine the patient's blood pressure is slightly better.. The patient's (ejection fraction persist to be 20%. The patient will qualify for an ICD, but I am not sure if the patient will be compliant with this. The patient does not seem to be interested for an AICD placement at present. We will tide the patient over the acute exacerbation of COPD and CHF ,and then talk to him about it. 5. Right inguinal hernia status post reduction by surgical hist. The patient will be high risk for severe surgery under general anesthesia or spinal anesthesia. The patient most likely if at all he has to have hernia surgery this should be done under local and sedation. 6. 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 Continue anti-cardiomyopathy treatment as per gold standard which is being difficult to be done, due to his low blood pressure. Hence we will start the patient on inotropes. 6.Coronary artery disease: History of myocardial infarction in the past: No evidence of anginal symptoms. No evidence of elevated troponin I at this admission. 7. Hypertension: At present blood pressure is low. Will continue the patient on midodrine, 10 mg p.o. 3 times daily. 8. History of cirrhosis of the liver: Secondary to chronic alcohol abuse. 9. History of alcohol abuse and tobacco abuse disorder. Ill effects of alcohol and tobacco have been discussed with the patient tobacco cessation counseling wa s done. This took about 4 minutes. 10. Hyperlipidemia: Continue statins. Medications reviewed. Dobutamine dose increased to 5 mcg/kg/min. Hence medical decision making is of high complexity. 50 minutes spent on the patient with more than 50% of time spent in direct patient care. Medical regimen changes and management plan discussed with her attending provider on the case. Medical. Will follow.
[2019-12-07] MEDS: DOBUTAMINE HCL/D5W 500 MG/250 ML RTUINJ IV PRN (23:00)
[2019-12-07] MEDS: PHARMACY COMMUNICATION ORDER MC SCH (23:01)
[2019-12-07] MEDS: SIMVASTATIN 40 MG TABLET PO SCH (23:02)
[2019-12-07] MEDS: LORAZEPAM INJ 2 MG/1 ML VIAL IV PRN (23:04)
[2019-12-08] MEDS: GABAPENTIN 400 MG CAPSULE PO SCH ×3 (05:15→22:00)
[2019-12-08] MEDS: LORAZEPAM INJ 2 MG/1 ML VIAL IV PRN ×3 (05:15→22:00)
[2019-12-08] MEDS: HEPARIN SOD (PORCINE) 5,000 UNIT/ML 1 ML VIAL SUBCUT SCH ×3 (05:16→21:59)
[2019-12-08 05:37] LABS: HEMOGLOBIN 10.3 g/dL (13.5-17.0); MEAN CORPUSCULAR HEMOGLOBIN 25.8 pg (27.0-33.4); MEAN CORPUSCULAR HGB CONC 32.3 g/dL (32.0-36.0); MEAN CORPUSCULAR VOLUME 80 fl (80-97); PLATELET COUNT 164 10^3/uL (150-450); RED BLOOD COUNT 4.01 10^6/uL (4.35-5.55); RED CELL DISTRIBUTION WIDTH 18.5 % (11.5-14.0); WHITE BLOOD COUNT 7.8 10^3/uL (4.0-10.5)
[2019-12-08 05:56] LABS: ANION GAP 8 (5-19); BLOOD UREA NITROGEN 35 mg/dL (7-20); CALCIUM 8.2 mg/dL (8.4-10.2); CARBON DIOXIDE 34 mmol/L (22-30); CHLORIDE 92 mmol/L (98-107); GLUCOSE 113 mg/dL (75-110); POTASSIUM 4.8 mmol/L (3.6-5.0)
[2019-12-08] MEDS: LEVALBUTEROL HCL NEB 1.25 MG/3 ML AMPUL NEB SCH ×2 (09:10→16:48)
[2019-12-08] MEDS: IPRATROPIUM BROMIDE 0.02% NEB 0.5 MG/2.5 ML AMPUL NEB SCH ×2 (09:10→16:48)
[2019-12-08] MEDS: BUDESONIDE NEB 0.5 MG/2 ML AMPUL NEB SCH ×2 (09:10→20:27)
[2019-12-08] MEDS: FAMOTIDINE 20 MG TABLET PO SCH ×2 (11:40→22:23)
[2019-12-08] MEDS: PREDNISONE 20 MG TABLET PO SCH (11:43)
[2019-12-08] MEDS: MIDODRINE HCL 5 MG TABLET PO SCH ×3 (11:43→18:39)
[2019-12-08] MEDS: POTASSIUM CHLORIDE 20 MEQ PACKET PO SCH (11:43)
[2019-12-08] MEDS: FOLIC ACID 1 MG TABLET PO SCH (11:44)
[2019-12-08] MEDS: FUROSEMIDE INJ/PF 40 MG/4 ML SDV IV SCH ×2 (11:44→18:37)
[2019-12-08] MEDS: DOCUSATE SODIUM 100 MG CAPSULE PO SCH (11:44)
[2019-12-08] MEDS: LIDOCAINE 5% (700 MG) TRANSDERMAL ADH..PATCH TP SCH (11:48)
--- NOTE | 2019-12-08 15:16 | PDOC PROGRESS REPORT ---
Subjective Progress Note for:: 12/08/19 Subjective:: Patient appeared quite somnolent this morning. Stated that he felt tired. Denies any shortness of breath at this time. Denies any chest pain or abdominal pain. Reason For Visit: ACUTE PULMONARY EDEMA,ACUTE ON CHRONIC RESPIRATORY Physical Exam Vital Signs: Temp Pulse Resp BP Pulse Ox 97.6 F 95 18 110/61 90 L 12/08/19 04:00 12/08/19 09:03 12/08/19 09:03 12/08/19 06:00 12/08/19 09:03 Intake & Output 12/07/19 12/08/19 12/09/19 06:59 06:59 06:59 Intake Total 1690 1810 Output Total 2800 3575 Balance -1110 -1765 Weight 69.6 kg 70.7 kg General appearance: PRESENT: no acute distress, cooperative Neck exam: ABSENT: JVD Respiratory exam: PRESENT: rhonchi, symmetrical, unlabored, wheezes - Mild. ABSENT: tachypnea Cardiovascular exam: PRESENT: RRR, +S1, +S2. ABSENT: tachycardia GI/Abdominal exam: PRESENT: soft. ABSENT: rebound, rigid, tenderness Neurological exam: PRESENT: awake - But drowsy this morning, oriented to person, oriented to place Results Laboratory Results: 12/08/19 05:20 12/08/19 05:20 12/07/19 12/08/19 12/08/19 17:05 05:20 05:20 WBC 7.8 RBC 4.01 L Hgb 10.3 L Hct 32.0 L MCV 80 MCH 25.8 L MCHC 32.3 RDW 18.5 H Plt Count 164 VBG pH 7.37 VBG pCO2 55.3 VBG HCO3 31.5 VBG Base Excess 5.2 Sodium 133.5 L Potassium 4.8 Chloride 92 L Carbon Dioxide 34 H Anion Gap 8 BUN 35 H Creatinine 0.86 Est GFR ( Amer) > 60 Glucose 113 H Calcium 8.2 L 12/01/19 12/01/19 12/01/19 17:30 22:01 22:01 Creatine Kinase 42 L CK-MB (CK-2) 2.40 Troponin I 0.034 0.042 NT-Pro-B Natriuret Pep 56080 H 12/02/19 12/02/19 12/02/19 03:57 03:57 09:58 Creatine Kinase 37 L 37 L CK-MB (CK-2) 2.55 Troponin I 0.049 NT-Pro-B Natriuret Pep 12/02/19 12/05/19 09:58 05:44 Creatine Kinase CK-MB (CK-2) 2.33 Troponin I 0.044 NT-Pro-B Natriuret Pep 8980 H Impressions: Chest/Abdomen CTA 12/01/19 19:27 IMPRESSION: Limited study secondary to excessive respiratory motion artifact. No evidence of pulmonary embolism to the lobar level. Moderate bilateral pleural effusions, left larger than right. The left-sided pleural effusion appears increased from the previous exam dated 07/18/2019; whereas, the right-sided pleural effusion appears similar. Patchy groundglass opacity within the periphery of the right upper lobe. This could indicate an atypical infectious/inflammatory process, to include viral pneumonitis, or a focus of interstitial edema. Cardiomegaly with trace pericardial effusion. Cirrhotic appearing liver with small amount of upper abdominal ascites. TECHNICAL DOCUMENTATION: Quality ID # [id number]: Final reports with documentation of one or more dose reduction techniques (e.g., Automated exposure control, adjustment of the mA and/or kV according to patient size, use of iterative reconstruction technique) copyright 2011 [employer]- All Rights Reserved Chest X-Ray 12/05/19 00:00 IMPRESSION: No significant interval change from prior. The central venous catheter is adequate . Assessment and Plan - Diagnosis (1) Acute on chronic systolic congestive heart failure, NYHA class 3 Is this a current diagnosis for this admission?: Yes Plan: Acute systolic heart failure. Most like due to noncompliance. TTE 12/02/2019 showing EF of 20%, moderate LV dilation, severe LV hypokinesis and estimated PASP of 56 mmHg TTE 01/06/2019. 2D echo LVEF less than 20%. Severe left ventricular hypokinesis. Moderately dilated left ventricle. RSVP 56%. Cardiology following. Holding beta-sarina and MILAGRO inhibitor. Continue dobutamine and dopamine drip. Diuresing very well on IV Lasix--we will switch to p.o. tomorrow. Potassium supplements. Monitor BMP. (2) Hypotension Qualifiers: Hypotension type: other hypotension type Qualified Code(s): I95.89 - Other hypotension Is this a current diagnosis for this admission?: Yes Plan: Suspecting that this may be due to low output heart failure with cardiogenic shock. On Midodrine. Currently on dobutamine and dopamine drip (3) COPD exacerbation Is this a current diagnosis for this admission?: Yes Plan: Receiving standing nebulizer treatments. Prednisone switched to daily dosing today. If patient continues to appear drowsy through the day, will check an ABG. (4) Acute and chronic respiratory failure Qualifiers: Respiratory failure complication: hypoxia Qualified Code(s): J96.21 - Acute and chronic respiratory failure with hypoxia Is this a current diagnosis for this admission?: Yes Plan: Most likely to acute CHF exacerbation complicated and underlying COPD. I removed patient's nasal cannula this morning and patient maintained SPO2 around 90%. Goal SPO2 for patient is 88% and above. (5) Alcohol use disorder, severe, dependence Is this a current diagnosis for this admission?: Yes Plan: History of alcohol dependence. No sign of withdrawal at this time. Folic acid. (6) Diabetes mellitus type 2 in nonobese Is this a current diagnosis for this admission?: Yes Plan: Continue diabetic diet, pre-meal, sliding scale and will insulin. Accu-Chek. (7) Incarcerated right inguinal hernia Is this a current diagnosis for this admission?: Yes Plan: Has been evaluated by surgery who reduced the hernia deemed that there was no surgical intervention indicated. Patient also seems to have a ventral hernia as well. - Time Time Spent with patient: 15-24 minutes
--- NOTE | 2019-12-08 19:01 | Progress Note ---
Provider Note Provider Note: CARDIOLOGY PROGRESS NOTE by Dr. Lorenza Sandoval on 12/08/2019. SUBJECTIVE: The patient is lying flat asleep and when awakened he denies any chest pain or discomfort. There is no shortness of breath. There is no PND orthopnea. There is no arrhythmia seen on the monitor. Is worse trace leg edema. He is not wheezing anymore. PHYSICAL EXAMINATION: The patient appears to be chronically ill and malnourished. At present in no acute distress. Selected Entries 12/08/19 12/08/19 12/08/19 07:00 08:54 09:00 Temperature 97.7 F Pulse Rate 96 98 Respiratory Rate Respiratory Depth Respiratory Pattern Respiratory Effort Blood Pressure 109/55 L 108/59 L Blood Pressure 75 Mean O2 Sat by Pulse Oximetry Oxygen Delivery Method ( includes room air) Fraction of Inspired Oxygen (FIO2) 12/08/19 12/08/19 09:03 10:00 Temperature Pulse Rate Respiratory 18 Rate Respiratory Normal Depth Respiratory Normal Pattern Respiratory Non-Labored Effort Blood Pressure Blood Pressure Mean O2 Sat by Pulse 90 L Oximetry Oxygen Delivery Nasal Cannula Nasal Cannula Method ( includes room air) Fraction of 21 Inspired Oxygen (FIO2) HEAD: Is atraumatic normocephalic. EYES: Pupils are equal round regular reactive light accommodation extraocular movements are normal. There is no conjunctival pallor. There is no scleral icterus. EARS: Tympanic membranes are intact. External auditory canals are clear nose: There is no deviated nasal septum. There is no inflammation of the nasal mucous membrane. MOUTH: There is no ulcers in the mouth. There is no bleeding of the gums. Mucous membranes of the mouth and tongue are moist. THROAT: There is no redness of the oropharynx. There is no exudates. SKIN: There is no skin rashes. There is no petechia or ecchymosis. NECK: Is supple. There is no JVD. Carotids are equal there is no bruit there is no lymphadenopathy. There is no goiter. There is no accessory muscle respiration use. Trachea central. LUNGS: There is diminished air entry prolonged expiration. There is hyperresonance on percussion. There is a few scattered rhonchi. There is no wheezing. There is no rales. HEART: S1-S2 is heard. There is no S3 gallop. There is no S4 gallop. Systolic murmur left sternal border and the apex there is no rub. ABDOMEN: Soft. Nontender right inguinal hernia present. There is normal bowel sounds. EXTREMITIES: Femorals are diminished. There is no femoral bruits. Leg pulses are diminished. There is trace pedal edema. There is no DVT or cellulitis. VENOUS: The patient is conscious awake alert oriented x3 with no focal deficit. PSYCHIATRIC: Patient judgment and sensory are intact her affect is normal. Labs- All tests 24 hr 12/08/19 12/08/19 05:20 05:20 WBC 7.8 RBC 4.01 L Hgb 10.3 L Hct 32.0 L MCV 80 MCH 25.8 L MCHC 32.3 RDW 18.5 H Plt Count 164 Sodium 133.5 L Potassium 4.8 Chloride 92 L Carbon Dioxide 34 H Anion Gap 8 BUN 35 H Creatinine 0.86 Est GFR ( Amer) > 60 Est GFR (MDRD) Non-Af > 60 Glucose 113 H Calcium 8.2 L Chest X-Ray 12/01/19 17:00 IMPRESSION: Mild pulmonary edema, improved from prior. Hyperinflated lungs which can be seen with obstructive lung disease. Chest/Abdomen CTA 12/01/19 19:27 IMPRESSION: Limited study secondary to excessive respiratory motion artifact. No evidence of pulmonary embolism to the lobar level. Moderate bilateral pleural effusions, left larger than right. The left-sided pleural effusion appears increased from the previous exam dated 07/18/2019; whereas, the right-sided pleural effusion appears similar. Patchy groundglass opacity within the periphery of the right upper lobe. This could indicate an atypical infectious/inflammatory process, to include viral pneumonitis, or a focus of interstitial edema. Cardiomegaly with trace pericardial effusion. Cirrhotic appearing liver with small amount of upper abdominal ascites. TECHNICAL DOCUMENTATION: Quality ID # 436: Final reports with documentation of one or more dose reduction techniques (e.g., Automated exposure control, adjustment of the mA and/or kV according to patient size, use of iterative reconstruction technique) copyright 2011 [employer]- All Rights Reserved Chest X-Ray 12/05/19 00:00 IMPRESSION: No significant interval change from prior. The central venous catheter is adequate . IMPRESSION/RECOMMENDATION: 1. Hypotension: Most likely secondary to pump failure due to poor LV contractility. With dobutamine and dopamine and the patient's blood pressure is good. We will discontinue the patient's dopamine and decrease the patient's dobutamine to 2.5 mcg/kg/min. Continue Lasix. The patient has very good urine output. 2. Acute on chronic respiratory failure: This is a combination of acute exacerbation of COPD, pneumonia, bronchitis, and congestive heart failure. 3. Acute exacerbation of COPD.: Continue antibiotics continue respiratory treatments and oxygen. 4. Acute on chronic systolic heart failure: The patient still is in significant heart failure with a combination of acute exacerbation of COPD. The heart failure is due to acute on chronic systolic heart failure. Continue his beta- sarina and ARB, and Lasix. The increase in the midodrine the patient's blood pressure is slightly better.. The patient's (ejection fraction persist to be 20%. The patient will qualify for an ICD, but I am not sure if the patient will be compliant with this. The patient does not seem to be interested for an AICD placement at present. We will tide the patient over the acute exacerbation of COPD and CHF ,and then talk to him about it. 5. Right inguinal hernia status post reduction by surgical hist. The patient will be high risk for severe surgery under general anesthesia or spinal anesthesia. The patient most likely if at all he has to have hernia surgery this should be done under local and sedation. 6. 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 Continue anti-cardiomyopathy treatment as per gold standard which is being difficult to be done, due to his low blood pressure. Hence we will start the patient on inotropes. 6.Coronary artery disease: History of myocardial infarction in the past: No evidence of anginal symptoms. No evidence of elevated troponin I at this admission. 7. Hypertension: At present blood pressure is low. Will continue the patient on midodrine, 10 mg p.o. 3 times daily. 8. History of cirrhosis of the liver: Secondary to chronic alcohol abuse. 9. History of alcohol abuse and tobacco abuse disorder. Ill effects of alcohol and tobacco have been discussed with the patient tobacco cessation counseling was done. This took about 4 minutes. 10. Hyperlipidemia: Continue statins. Medications reviewed. Dobutamine decreased and dopamine stopped. Hence medical decision making is of high complexity. 50 minutes spent on the patient with more than 50% of time spent in direct patient care. Medical regimen changes and management plan discussed with her attending provider on the case. Medical. Will follow.
[2019-12-08] MEDS: PHARMACY COMMUNICATION ORDER MC SCH (22:00)
[2019-12-08] MEDS: SIMVASTATIN 40 MG TABLET PO SCH (22:04)
[2019-12-09] MEDS: IPRATROPIUM BROMIDE 0.02% NEB 0.5 MG/2.5 ML AMPUL NEB SCH ×4 (00:04→23:50)
[2019-12-09] MEDS: LEVALBUTEROL HCL NEB 1.25 MG/3 ML AMPUL NEB SCH ×4 (00:04→23:50)
[2019-12-09] MEDS: DOBUTAMINE HCL/D5W 500 MG/250 ML RTUINJ IV PRN (05:36)
[2019-12-09] MEDS: HEPARIN SOD (PORCINE) 5,000 UNIT/ML 1 ML VIAL SUBCUT SCH ×3 (05:37→22:06)
[2019-12-09] MEDS: GABAPENTIN 400 MG CAPSULE PO SCH ×3 (05:37→22:05)
[2019-12-09 06:52] LABS: BLOOD UREA NITROGEN 32 mg/dL (7-20); CALCIUM 8.2 mg/dL (8.4-10.2); CHLORIDE 90 mmol/L (98-107); GLUCOSE 82 mg/dL (75-110); POTASSIUM 4.8 mmol/L (3.6-5.0)
[2019-12-09 06:58] LABS: ANION GAP 6 (5-19)
[2019-12-09 07:04] LABS: CARBON DIOXIDE 38 mmol/L (22-30)
[2019-12-09] MEDS: BUDESONIDE NEB 0.5 MG/2 ML AMPUL NEB SCH ×2 (08:16→19:54)
[2019-12-09 09:33] LABS: ARTERIAL BLOOD BASE EXCESS 10.6 mmol/L; ARTERIAL BLOOD H2CO3 1.46 mmol/L (1.05-1.35); ARTERIAL BLOOD HCO3 35.4 mmol/L (20-24); ARTERIAL BLOOD O2 SATURATION 97.7 % (94-98); ARTERIAL BLOOD PCO2 48.4 mmHg (35-45); ARTERIAL BLOOD PH 7.48 (7.35-7.45); ARTERIAL BLOOD PO2 96.1 mmHg (80-100); ARTERIAL BLOOD TOTAL CO2 36.9 mmol/L (23-27)
[2019-12-09 09:36] LABS: ARTERIAL BLOOD FIO2 ROOM AIR
[2019-12-09] MEDS: MIDODRINE HCL 5 MG TABLET PO SCH ×3 (12:32→17:14)
[2019-12-09] MEDS: FUROSEMIDE 40 MG TABLET PO SCH (12:33)
[2019-12-09] MEDS: FAMOTIDINE 20 MG TABLET PO SCH ×2 (12:34→22:07)
[2019-12-09] MEDS: FOLIC ACID 1 MG TABLET PO SCH (12:34)
[2019-12-09] MEDS: POTASSIUM CHLORIDE 20 MEQ PACKET PO SCH (12:34)
[2019-12-09] MEDS: PREDNISONE 20 MG TABLET PO SCH (12:34)
[2019-12-09] MEDS: DOCUSATE SODIUM 100 MG CAPSULE PO SCH (12:34)
[2019-12-09] MEDS: LIDOCAINE 5% (700 MG) TRANSDERMAL ADH..PATCH TP SCH (12:35)
--- NOTE | 2019-12-09 17:54 | PDOC PROGRESS REPORT ---
Subjective Progress Note for:: 12/09/19 Subjective:: Summary patient is back on 5 L nasal cannula at this morning. Uncertain how she was not documented. Patient denies feeling short of breath at the time of my encounter this morning. Patient denies any fever or chills. He denies any chest pain nausea vomiting. Reason For Visit: ACUTE PULMONARY EDEMA,ACUTE ON CHRONIC RESPIRATORY Physical Exam Vital Signs: Temp Pulse Resp BP Pulse Ox 97.6 F 86 15 115/69 93 12/09/19 15:13 12/09/19 14:00 12/09/19 08:17 12/09/19 15:00 12/09/19 10:00 Intake & Output 12/08/19 12/09/19 12/10/19 06:59 06:59 06:59 Intake Total 1810 1598 459 Output Total 357 4275 325 Balance -0474 -5488 134 Weight 70.7 kg 65.5 kg General appearance: PRESENT: no acute distress, cooperative Neck exam: ABSENT: JVD Respiratory exam: PRESENT: crackles, symmetrical, unlabored. ABSENT: tachypnea, wheezes Cardiovascular exam: PRESENT: RRR, +S1, +S2. ABSENT: tachycardia GI/Abdominal exam: PRESENT: normal bowel sounds, soft. ABSENT: rebound, rigid, tenderness Neurological exam: PRESENT: alert, awake Results Laboratory Results: 12/08/19 05:20 12/09/19 05:48 12/09/19 12/09/19 05:48 09:00 Carbonic Acid 1.46 H HCO3/H2CO3 Ratio 24:1 ABG pH 7.48 H ABG pCO2 48.4 H ABG pO2 96.1 ABG HCO3 35.4 H ABG O2 Saturation 97.7 ABG Base Excess 10.6 FiO2 ROOM AIR Sodium 133.7 L Potassium 4.8 Chloride 90 L Carbon Dioxide 38 H Anion Gap 6 BUN 32 H Creatinine 0.80 Est GFR ( Amer) > 60 Glucose 82 Calcium 8.2 L Magnesium 1.8 12/01/19 12/01/19 12/01/19 17:30 22:01 22:01 Creatine Kinase 42 L CK-MB (CK-2) 2.40 Troponin I 0.034 0.042 NT-Pro-B Natriuret Pep 97397 H 12/02/19 12/02/19 12/02/19 03:57 03:57 09:58 Creatine Kinase 37 L 37 L CK-MB (CK-2) 2.55 Troponin I 0.049 NT-Pro-B Natriuret Pep 12/02/19 12/05/19 12/09/19 09:58 05:44 05:48 Creatine Kinase CK-MB (CK-2) 2.33 Troponin I 0.044 NT-Pro-B Natriuret Pep 8980 H 4920 H Impressions: Chest/Abdomen CTA 12/01/19 19:27 IMPRESSION: Limited study secondary to excessive respiratory motion artifact. No evidence of pulmonary embolism to the lobar level. Moderate bilateral pleural effusions, left larger than right. The left-sided pleural effusion appears increased from the previous exam dated 07/18/2019; whereas, the right-sided pleural effusion appears similar. Patchy groundglass opacity within the periphery of the right upper lobe. This could indicate an atypical infectious/inflammatory process, to include viral pneumonitis, or a focus of interstitial edema. Cardiomegaly with trace pericardial effusion. Cirrhotic appearing liver with small amount of upper abdominal ascites. TECHNICAL DOCUMENTATION: Quality ID # 436: Final reports with documentation of one or more dose reduction techniques (e.g., Automated exposure control, adjustment of the mA and/or kV according to patient size, use of iterative reconstruction technique) copyright 2011 [employer]- All Rights Reserved Chest X-Ray 12/05/19 00:00 IMPRESSION: No significant interval change from prior. The central venous catheter is adequate . Assessment and Plan - Diagnosis (1) Acute on chronic systolic congestive heart failure, NYHA class 3 Is this a current diagnosis for this admission?: Yes Plan: Acute systolic heart failure. Most like due to noncompliance. TTE 12/02/2019 showing EF of 20%, moderate LV dilation, severe LV hypokinesis and estimated PASP of 56 mmHg TTE 01/06/2019. 2D echo LVEF less than 20%. Severe left ventricular hypokinesis. Moderately dilated left ventricle. RSVP 56%. Cardiology following. Patient has diuresed excellently for the past few days with improved BNP on dobutamine+dopamine+Lasix IV BID--> switched to Lasix p.o. 60 mg daily this AM. Stop dopamine drip. Beta-sarina and lisinopril still on hold due to initial hypotension but can gradually reintroduce at a smaller dose if normotension sustains. Potassium supplements. Monitor BMP. (2) Hypotension Qualifiers: Hypotension type: other hypotension type Qualified Code(s): I95.89 - Other hypotension Is this a current diagnosis for this admission?: Yes Plan: Suspecting that this may be due to low output heart failure with cardiogenic shock. On Midodrine. Weaned off dopamine yesterday currently weaned off dobutamine today. Normotensive at this time. (3) COPD exacerbation Is this a current diagnosis for this admission?: Yes Plan: Receiving standing nebulizer treatments. Sounding better. Decrease prednisone dose. (4) Acute and chronic respiratory failure Qualifiers: Respiratory failure complication: hypoxia Qualified Code(s): J96.21 - Acute and chronic respiratory failure with hypoxia Is this a current diagnosis for this admission?: Yes Plan: Most likely to acute CHF exacerbation complicated by underlying COPD. ABG looks good. For some reason, patient was on 5 L nasal cannula at this morning though he had been doing very well only 1 L nasal cannula yesterday. No documentation of why patient was placed on this. I have asked nurse to wean off oxygen completely and see if patient tolerates. (5) Alcohol use disorder, severe, dependence Is this a current diagnosis for this admission?: Yes Plan: History of alcohol dependence. No sign of withdrawal at this time. Folic acid. (6) Diabetes mellitus type 2 in nonobese Is this a current diagnosis for this admission?: Yes Plan: Continue diabetic diet, pre-meal, sliding scale and will insulin. Accu-Chek. (7) Incarcerated right inguinal hernia Is this a current diagnosis for this admission?: Yes Plan: Has been evaluated by surgery who reduced the hernia deemed that there was no surgical intervention indicated. - Time Time Spent with patient: Less than 15 minutes
--- NOTE | 2019-12-09 18:19 | Progress Note ---
Provider Note Provider Note: CARDIOLOGY PROGRESS NOTE by Dr. Lorenza Sandoval on 12/09/2019. SUBJECTIVE: The patient denies any chest pain or discomfort. He denies any shortness of breath. There is no PND orthopnea cough. There is no leg edema. There is no arrhythmia seen on the monitor. The patient's blood pressure is stable he is off the dobutamine and is only on dopamine. He is also on midodrine. Hence we will stop the patient's dopamine. PHYSICAL EXAMINATION: The patient is chronically ill looking. He is malnourished. But in no acute distress. Selected Entries 12/09/19 12/09/19 12/09/19 11:00 11:16 15:00 Temperature 97.6 F Pulse Rate Heart Rate ( 91 Monitors) Respiratory Rate Blood Pressure 110/58 L 115/69 Blood Pressure 75 84 Mean O2 Sat by Pulse Oximetry Fraction of Inspired Oxygen (FIO2) Oxygen Flow Rate 12/09/19 12/09/19 15:13 15:52 Temperature 97.6 F Pulse Rate 91 Heart Rate ( Monitors) Respiratory 16 Rate Blood Pressure Blood Pressure Mean O2 Sat by Pulse 95 Oximetry Fraction of 40 Inspired Oxygen (FIO2) Oxygen Flow 5 Rate HEAD: Is atraumatic normocephalic. EYES: Pupils are equal round regular reactive light accommodation extraocular movements are normal. There is no conjunctival pallor. There is no scleral icterus. EARS: Tympanic membranes are intact. External auditory canals are clear nose: There is no deviated nasal septum. There is no inflammation of the nasal mucous membrane. MOUTH: There is no ulcers in the mouth. There is no bleeding of the gums. Mucous membranes of the mouth and tongue are moist. THROAT: There is no redness of the oropharynx. There is no exudates. SKIN: There is no skin rashes. There is no petechia or ecchymosis. NECK: Is supple. There is no JVD. Carotids are equal there is no bruit there is no lymphadenopathy. There is no goiter. There is no accessory muscle respiration use. Trachea central. LUNGS: There is diminished air entry prolonged expiration. There is presence on percussion. There is no rhonchi or wheezing. There is no rales. HEART: S1-S2 is heard. There is no S3 gallop. There is no S4 gallop. Systolic murmur left sternal border and the apex there is no rub. ABDOMEN: Soft. Nontender right inguinal hernia present. There is normal bowel sounds. EXTREMITIES: Femorals are diminished. There is no femoral bruits. Leg pulses are diminished. There is trace pedal edema. There is no DVT or cellulitis. VENOUS: The patient is conscious awake alert oriented x3 with no focal deficit. PSYCHIATRIC: Patient judgment and sensory are intact her affect is normal. Labs- All tests 24 hr 12/09/19 12/09/19 12/09/19 05:48 05:48 09:00 Carbonic Acid 1.46 H HCO3/H2CO3 Ratio 24:1 ABG pH 7.48 H ABG pCO2 48.4 H ABG pO2 96.1 ABG HCO3 35.4 H ABG Total CO2 36.9 H ABG O2 Saturation 97.7 ABG Base Excess 10.6 FiO2 ROOM AIR Sodium 133.7 L Potassium 4.8 Chloride 90 L Carbon Dioxide 38 H Anion Gap 6 BUN 32 H Creatinine 0.80 Est GFR ( Amer) > 60 Est GFR (MDRD) Non-Af > 60 Glucose 82 Calcium 8.2 L Magnesium 1.8 NT-Pro-B Natriuret Pep 4920 H Chest X-Ray 12/01/19 17:00 IMPRESSION: Mild pulmonary edema, improved from prior. Hyperinflated lungs which can be seen with obstructive lung disease. Chest/Abdomen CTA 12/01/19 19:27 IMPRESSION: Limited study secondary to excessive respiratory motion artifact. No evidence of pulmonary embolism to the lobar level. Moderate bilateral pleural effusions, left larger than right. The left-sided pleural effusion appears increased from the previous exam dated 07/18/2019; whereas, the right-sided pleural effusion appears similar. Patchy groundglass opacity within the periphery of the right upper lobe. This could indicate an atypical infectious/inflammatory process, to include viral pneumonitis, or a focus of interstitial edema. Cardiomegaly with trace pericardial effusion. Cirrhotic appearing liver with small amount of upper abdominal ascites. TECHNICAL DOCUMENTATION: Quality ID # 436: Final reports with documentation of one or more dose reduction techniques (e.g., Automated exposure control, adjustment of the mA and/or kV according to patient size, use of iterative reconstruction technique) copyright 2011 [employer]- All Rights Reserved Chest X-Ray 12/05/19 00:00 IMPRESSION: No significant interval change from prior. The central venous catheter is adequate . IMPRESSION/RECOMMENDATION: 1. Hypotension: This is resolved. We will stop the patient is dopamine. We will continue the patient on midodrine. We will continue the beta-sarina and MILAGRO inhibitor. Continue Lasix. The patient has very good urine output. 2. Acute on chronic respiratory failure: This is a combination of acute exacerbation of COPD, pneumonia, bronchitis, and congestive heart failure. 3. Acute exacerbation of COPD.: Continue antibiotics continue respiratory treatments and oxygen. 4. Acute on chronic systolic heart failure: The patient still is in significant heart failure with a combination of acute exacerbation of COPD. The heart failure is due to acute on chronic systolic heart failure. Continue his beta- sarina and ARB, and Lasix. The increase in the midodrine the patient's blood pressure is slightly better.. The patient's (ejection fraction persist to be 20%. The patient will qualify for an ICD, but I am not sure if the patient will be compliant with this. The patient does not seem to be interested for an AICD placement at present. We will tide the patient over the acute exacerbation of COPD and CHF ,and then talk to him about it. 5. Right inguinal hernia status post reduction by surgical hist. The patient will be high risk for severe surgery under general anesthesia or spinal anesthesia. The patient most likely if at all he has to have hernia surgery this should be done under local and sedation. 6. 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 Continue anti-cardiomyopathy treatment as per gold standard which is being difficult to be done, due to his low blood pressure. Hence we will start the patient on inotropes. 6.Coronary artery disease: History of myocardial infarction in the past: No evidence of anginal symptoms. No evidence of elevated troponin I at this admission. 7. Hypertension: At present blood pressure is low. Will continue the patient on midodrine, 10 mg p.o. 3 times daily. 8. History of cirrhosis of the liver: Secondary to chronic alcohol abuse. 9. History of alcohol abuse and tobacco abuse disorder. Ill effects of alcohol and tobacco have been discussed with the patient tobacco cessation counseling was done. This took about 4 minutes. 10. Hyperlipidemia: Continue statins. Medications reviewed. Dobutamine decreased and dopamine stopped. Hence medical decision making is of high complexity. 50 minutes spent on the patient with more than 50% of time spent in direct patient care. Medical regimen changes and management plan discussed with her attending provider on the case. Medical. Will follow.
[2019-12-09] MEDS: SIMVASTATIN 40 MG TABLET PO SCH (22:05)
[2019-12-09] MEDS: PHARMACY COMMUNICATION ORDER MC SCH (22:07)
[2019-12-10] MEDS: LORAZEPAM INJ 2 MG/1 ML VIAL IV PRN ×2 (00:44→23:15)
[2019-12-10] MEDS: HEPARIN SOD (PORCINE) 5,000 UNIT/ML 1 ML VIAL SUBCUT SCH ×3 (05:52→21:17)
[2019-12-10] MEDS: GABAPENTIN 400 MG CAPSULE PO SCH ×3 (05:52→21:14)
[2019-12-10 06:42] LABS: BLOOD UREA NITROGEN 27 mg/dL (7-20); CALCIUM 8.2 mg/dL (8.4-10.2); CHLORIDE 90 mmol/L (98-107); GLUCOSE 103 mg/dL (75-110); POTASSIUM 4.7 mmol/L (3.6-5.0)
[2019-12-10 06:54] LABS: ANION GAP 4 (5-19); CARBON DIOXIDE 39 mmol/L (22-30)
[2019-12-10] MEDS: LEVALBUTEROL HCL NEB 1.25 MG/3 ML AMPUL NEB SCH ×2 (08:06→16:29)
[2019-12-10] MEDS: IPRATROPIUM BROMIDE 0.02% NEB 0.5 MG/2.5 ML AMPUL NEB SCH ×2 (08:06→16:29)
[2019-12-10] MEDS: BUDESONIDE NEB 0.5 MG/2 ML AMPUL NEB SCH ×2 (08:07→20:06)
[2019-12-10] MEDS ORDERED: PREDNISONE 20 MG TABLET PO SCH (10:00)
--- NOTE | 2019-12-10 12:08 | PDOC PROGRESS REPORT ---
Subjective Progress Note for:: 12/10/19 Subjective:: Patient was seen on morning rounds. He was found resting in bed, comfortably, on supplemental oxygen via nasal cannula. He was sleeping comfortably but woke briefly when I said his name. He tells me that he is feeling well and denies shortness of breath. He then falls back to sleep. Patient appears to be comfortable and is not noted to be in any acute distress a t this time. No concerns per nursing. Reason For Visit: ACUTE PULMONARY EDEMA,ACUTE ON CHRONIC RESPIRATORY Physical Exam Vital Signs: Temp Pulse Resp BP Pulse Ox 97.3 F 91 18 115/75 100 12/10/19 07:26 12/10/19 08:06 12/10/19 08:06 12/10/19 07:26 12/10/19 08:06 Intake & Output 12/09/19 12/10/19 12/11/19 06:59 06:59 06:59 Intake Total 1598 1498 Output Total 4275 3265 Balance -5337 -2856 Weight 65.5 kg 63.8 kg General appearance: PRESENT: no acute distress, cooperative, thin, well- developed, well-nourished Head exam: PRESENT: atraumatic, normocephalic Eye exam: PRESENT: conjunctiva pink, EOMI, PERRLA. ABSENT: scleral icterus Mouth exam: PRESENT: moist, tongue midline Teeth exam: PRESENT: poor dentation Respiratory exam: PRESENT: decreased breath sounds - bibasilar, symmetrical, unlabored. ABSENT: rales, rhonchi, wheezes Cardiovascular exam: PRESENT: RRR, +S1, +S2. ABSENT: diastolic murmur, rubs, systolic murmur Pulses: PRESENT: normal dorsalis pedis pul Vascular exam: PRESENT: normal capillary refill Extremities exam: PRESENT: full ROM. ABSENT: calf tenderness, clubbing, pedal edema Neurological exam: PRESENT: alert, awake, CN II-XII grossly intact. ABSENT: motor sensory deficit Psychiatric exam: PRESENT: appropriate affect, normal mood. ABSENT: homicidal ideation, suicidal ideation Skin exam: PRESENT: dry, intact, warm. ABSENT: cyanosis, rash Results Laboratory Results: 12/08/19 05:20 12/10/19 06:02 12/10/19 06:02 Sodium 132.5 L Potassium 4.7 Chloride 90 L Carbon Dioxide 39 H Anion Gap 4 L BUN 27 H Creatinine 0.70 Est GFR ( Amer) > 60 Glucose 103 Calcium 8.2 L 12/01/19 12/01/19 12/01/19 17:30 22:01 22:01 Creatine Kinase 42 L CK-MB (CK-2) 2.40 Troponin I 0.034 0.042 NT-Pro-B Natriuret Pep 52391 H 12/02/19 12/02/19 12/02/19 03:57 03:57 09:58 Creatine Kinase 37 L 37 L CK-MB (CK-2) 2.55 Troponin I 0.049 NT-Pro-B Natriuret Pep 12/02/19 12/05/19 12/09/19 09:58 05:44 05:48 Creatine Kinase CK-MB (CK-2) 2.33 Troponin I 0.044 NT-Pro-B Natriuret Pep 8980 H 4920 H Impressions: Chest/Abdomen CTA 12/01/19 19:27 IMPRESSION: Limited study secondary to excessive respiratory motion artifact. No evidence of pulmonary embolism to the lobar level. Moderate bilateral pleural effusions, left larger than right. The left-sided pleural effusion appears increased from the previous exam dated 07/18/2019; whereas, the right-sided pleural effusion appears similar. Patchy groundglass opacity within the periphery of the right upper lobe. This could indicate an atypical infectious/inflammatory process, to include viral pneumonitis, or a focus of interstitial edema. Cardiomegaly with trace pericardial effusion. Cirrhotic appearing liver with small amount of upper abdominal ascites. TECHNICAL DOCUMENTATION: Quality ID # 436: Final reports with documentation of one or more dose reduction techniques (e.g., Automated exposure control, adjustment of the mA and/or kV according to patient size, use of iterative reconstruction technique) copyright 2010 [employer]- All Rights Reserved Chest X-Ray 12/05/19 00:00 IMPRESSION: No significant interval change from prior. The central venous catheter is adequate . Assessment and Plan - Diagnosis (1) Acute on chronic systolic congestive heart failure, NYHA class 3 Is this a current diagnosis for this admission?: Yes Plan: Acute systolic heart failure. Most like due to noncompliance. TTE 12/02/2019 showing EF of 20%, moderate LV dilation, severe LV hypokinesis and estimated PASP of 56 mmHg TTE 01/06/2019. 2D echo LVEF less than 20%. Severe left ventricular hypoki nesis. Moderately dilated left ventricle. RSVP 56%. Cardiology following. Patient has diuresed excellently for the past few days with improved BNP on dobutamine+dopamine+Lasix IV BID--> switched to Lasix p.o. 60 mg yesterday with continued adequate urinary output. Pt's weight down ~10 kg Dopamine and dobutamine have been discontinued. Blood pressure improved with midodrine. Will resume lisinopril 2.5 mg daily today (home dose). Beta-sarina still on hold due to initial hypotension but can gradually reintroduce at a smaller dose if normotension sustains. Potassium supplements. Monitor BMP. (2) Hypotension Qualifiers: Hypotension type: other hypotension type Qualified Code(s): I95.89 - Other hypotension Is this a current diagnosis for this admission?: Yes Plan: Suspecting that this may be due to low output heart failure with cardiogenic shock. Weaned off dopamine and dobutamine today; doing well. Cardiology is consulted. On Midodrine. Normotensive at this time. (3) COPD exacerbation Is this a current diagnosis for this admission?: Yes Plan: Receiving standing nebulizer treatments. Have weaned off prednisone. Have asked nursing to wean of O2. Encourage pulmonary toilet. (4) Acute and chronic respiratory failure Qualifiers: Respiratory failure complication: hypoxia Qualified Code(s): J96.21 - Acute and chronic respiratory failure with hypoxia Is this a current diagnosis for this admission?: Yes Plan: Most likely to acute CHF exacerbation complicated by underlying COPD. ABG looks good. Currently on NC at 3lpm. I have asked nurse to wean off oxygen completely and see if patient tolerates. (5) Alcohol use disorder, severe, dependence Is this a current diagnosis for this admission?: Yes Plan: History of alcohol dependence. No sign of withdrawal at this time. Folic acid and thiamin supplementation daily. (6) Diabetes mellitus type 2 in nonobese Is this a current diagnosis for this admission?: Yes Plan: A1C 4.9% Does not appear patient is on home medications for management. Likely diet controlled. Currently on cardiac diet. Continue SSI for coverage. Given patient's age and frailty, does not require medications at discharge. Goal A1c for this patient is <8.5% (7) Incarcerated right inguinal hernia Is this a current diagnosis for this admission?: Yes Plan: Has been evaluated by surgery who reduced the hernia deemed that there was no surgical intervention indicated. - Time Time Spent with patient: 25-34 minutes Medications reviewed and adjusted accordingly: Yes Anticipated discharge: Home with Homehealth
[2019-12-10] MEDS: FAMOTIDINE 20 MG TABLET PO SCH ×2 (13:27→21:17)
[2019-12-10] MEDS: FOLIC ACID 1 MG TABLET PO SCH (14:08)
[2019-12-10] MEDS: MIDODRINE HCL 5 MG TABLET PO SCH ×3 (14:08→18:35)
[2019-12-10] MEDS: LISINOPRIL 5 MG TABLET PO SCH (14:08)
[2019-12-10] MEDS: DOCUSATE SODIUM 100 MG CAPSULE PO SCH (14:11)
[2019-12-10] MEDS: FUROSEMIDE 40 MG TABLET PO SCH (14:14)
[2019-12-10] MEDS: POTASSIUM CHLORIDE 20 MEQ PACKET PO SCH (14:14)
[2019-12-10] MEDS ORDERED: OXYCODONE HCL IR 5 MG TABLET PO PRN (14:15)
[2019-12-10] MEDS: LIDOCAINE 5% (700 MG) TRANSDERMAL ADH..PATCH TP SCH (14:23)
[2019-12-10] MEDS: OXYCODONE HCL IR 5 MG TABLET PO PRN ×2 (14:39→21:14)
--- NOTE | 2019-12-10 16:40 | RADIOLOGY REPORT (SQ) ---
EXAM DESCRIPTION: U/S NON-OB PELVIS LTD W/O DOP IMAGES COMPLETED DATE/TIME: 12/10/2019 4:03 pm REASON FOR STUDY: pain; recently reduced right inguinal hernia COMPARISON: Ultrasound 11/27/2019. CT 11/27/2019. TECHNIQUE: Dynamic and static grayscale images acquired of the localized site of clinical concern an d recorded on PACS. Additional selected color Doppler and spectral images recorded. SITE OF CONCERN: Right groin LIMITATIONS: None. FINDINGS: SKIN AND SUBCUTANEOUS TISSUES: No masses. No fluid collections. No edema. No foreign daquan s. DEEP SOFT TISSUES/MUSCLES: In the deep subcutaneous tissues, apparent recurrent fluid containing stru cture, likely hernia. On today's study this measures up to 4.1 x 2.3 x 4.1 cm and looks larger. VASCULAR: Color Doppler flow within the fluid collection presumably relates to motion. I have no his tory of recent penetrating trauma or vascular surgery in this area to suggest hematoma or pseudoaneur ysm. OTHER: No other significant finding. IMPRESSION: Fluid-filled mass in the right inguinal canal presumably represents persistent enlarging or recurrent hernia. Note: The CT study from recently shows no bowel within the hernia, only accumu lation of simple appearing fluid. TECHNICAL DOCUMENTATION: JOB ID: [id number] 2010 [employer]- All Rights Reserved Reading location - IP/workstation name: [email or web address]
[2019-12-10 18:00] LABS: IRON(TIBC) 63.8 ug/dL (49-181)
[2019-12-10 18:50] LABS: ABSOLUTE RETICS # 0.043 10^6/uL (0.028-0.122); RETICULOCYTE COUNT (AUTO) 1.12 % (0.66-2.85)
[2019-12-10 19:10] LABS: FOLATE > 20.00 ng/mL (>2.76)
[2019-12-10] MEDS: SIMVASTATIN 40 MG TABLET PO SCH (21:14)
[2019-12-10] MEDS: PHARMACY COMMUNICATION ORDER MC SCH (21:17)
--- NOTE | 2019-12-10 21:52 | Progress Note ---
Provider Note Provider Note: CARDIOLOGY PROGRESS NOTE by Dr. Lorenza Sandoval on 12/10/2019. SUBJECTIVE: The patient denies any chest pain or discomfort. There is no shortness of breath. There is no PND orthopnea. There is no palpitations. There is no arrhythmia seen on the monitor. The patient claims that he is got right inguinal hernia pain and states that if he is not given morphine or oxycodone he will sign out AMA. A pelvic ultrasound has been ordered and this shows recurrence of the hernia with simple fluid in the hernia with no bowel. There is no evidence of incarceration. PHYSICAL EXAMINATION: The patient is chronically ill. In no acute distress, in spite of complaining of significant right inguinal hernia pain. Selected Entries 12/10/19 16:16 Temperature 97.8 F Temperature Oral Source Pulse Rate 103 H Respiratory 20 Rate Blood Pressure 145/73 H Blood Pressure 97 Mean BP Location Right Arm BP Position Supine O2 Sat by Pulse 100 Oximetry Oxygen Flow 1.50 Rate Oxygen Delivery Nasal Cannula Method HEAD: Is atraumatic normocephalic. EYES: Pupils are equal round regular reactive light accommodation extraocular movements are normal. There is no conjunctival pallor. There is no scleral icterus. EARS: Tympanic membranes are intact. External auditory canals are clear nose: There is no deviated nasal septum. There is no inflammation of the nasal mucous membrane. MOUTH: There is no ulcers in the mouth. There is no bleeding of the gums. Mucous membranes of the mouth and tongue are moist. THROAT: There is no redness of the oropharynx. There is no exudates. SKIN: There is no skin rashes. There is no petechia or ecchymosis. NECK: Is supple. There is no JVD. Carotids are equal there is no bruit there is no lymphadenopathy. There is no goiter. There is no accessory muscle respiration use. Trachea central. LUNGS: There is diminished air entry prolonged expiration. There is presence on percussion. There is no rhonchi or wheezing. There is no rales. HEART: S1-S2 is heard. There is no S3 gallop. There is no S4 gallop. Systolic murmur left sternal border and the apex there is no rub. ABDOMEN: Soft. Nontender right inguinal hernia present. There is normal bowel sounds. EXTREMITIES: Femorals are diminished. There is no femoral bruits. Leg pulses are diminished. There is trace pedal edema. There is no DVT or cellulitis. VENOUS: The patient is conscious awake alert oriented x3 with no focal deficit. PSYCHIATRIC: Patient judgment and sensory are intact her affect is normal. Chest X-Ray 12/01/19 17:00 IMPRESSION: Mild pulmonary edema, improved from prior. Hyperinflated lungs which can be seen with obstructive lung disease. Chest/Abdomen CTA 12/01/19 19:27 IMPRESSION: Limited study secondary to excessive respiratory motion artifact. No evidence of pulmonary embolism to the lobar level. Moderate bilateral pleural effusions, left larger than right. The left-sided pleural effusion appears increased from the previous exam dated 07/18/2019; whereas, the right-sided pleural effusion appears similar. Patchy groundglass opacity within the periphery of the right upper lobe. This could indicate an atypical infectious/inflammatory process, to include viral pneumonitis, or a focus of interstitial edema. Cardiomegaly with trace pericardial effusion. Cirrhotic appearing liver with small amount of upper abdominal ascites. TECHNICAL DOCUMENTATION: Quality ID # 436: Final reports with documentation of one or more dose reduction techniques (e.g., Automated exposure control, adjustment of the mA and/or kV according to patient size, use of iterative reconstruction technique) copyright 2011 [employer]- All Rights Reserved Chest X-Ray 12/05/19 00:00 IMPRESSION: No significant interval change from prior. The central venous catheter is adequate . Pelvis Ultrasound 12/10/19 00:00 IMPRESSION: Fluid-filled mass in the right inguinal canal presumably represents persistent enlarging or recurrent hernia. Note: The CT study from recently shows no bowel within the hernia, only accumulation of simple appearing fluid. Labs- All tests 24 hr 12/10/19 12/10/19 12/10/19 06:02 06:02 18:25 Reticulocyte # 0.043 Retic Count (auto) 1.12 Sodium 132.5 L Potassium 4.7 Chloride 90 L Carbon Dioxide 39 H Anion Gap 4 L BUN 27 H Creatinine 0.70 Est GFR ( Amer) > 60 Est GFR (MDRD) Non-Af > 60 Glucose 103 Calcium 8.2 L Iron 63.8 TIBC 392 % Saturation 16 Ferritin 53.00 Vitamin B12 644.0 Folate > 20.00 IMPRESSION/RECOMMENDATION: 1. Hypotension: This is resolved. We will stop the patient is dopamine. We will continue the patient on midodrine. We will continue the beta-sarina and MILAGRO inhibitor. Continue Lasix. The patient has very good urine output. 2. Acute on chronic respiratory failure: This is a combination of acute exacerbation of COPD, pneumonia, bronchitis, and congestive heart failure. 3. Acute exacerbation of COPD.: Continue antibiotics continue respiratory treatments and oxygen. 4. Acute on chronic systolic heart failure: The patient still is in significant heart failure with a combination of acute exacerbation of COPD. The heart failure is due to acute on chronic systolic heart failure. Continue his beta- sarina and ARB, and Lasix. The increase in the midodrine the patient's blood pressure is slightly better.. The patient's (ejection fraction persist to be 20%. The patient will qualify for an ICD, but I am not sure if the patient will be compliant with this. The patient does not seem to be interested for an AICD placement at present. We will tide the patient over the acute exacerbation of COPD and CHF ,and then talk to him about it. 5. Right inguinal hernia status post reduction by surgical hist. Patient with recurrence of hernia. The patient will be high risk for severe surgery under general anesthesia or spinal anesthesia. The patient most likely if at all he has to have hernia surgery this should be done under local and sedation. 6. 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 Continue anti-cardiomyopathy treatment as per gold standard which is being difficult to be done, due to his low blood pressure. Hence we will start the patient on inotropes. 6.Coronary artery disease: History of myocardial infarction in the past: No evidence of anginal symptoms. No evidence of elevated troponin I at this admission. 7. Hypertension: At present blood pressure is low. Will continue the patient on midodrine, 10 mg p.o. 3 times daily. 8. History of cirrhosis of the liver: Secondary to chronic alcohol abuse. 9. History of alcohol abuse and tobacco abuse disorder. Ill effects of alcohol and tobacco have been discussed with the patient tobacco cessation counseling was done. This took about 4 minutes. 10. Hyperlipidemia: Continue statins. Medications reviewed. Dobutamine decreased and dopamine stopped. Hence medical decision making is of high complexity. 50 minutes spent on the patient with more than 50% of time spent in direct patient care. Medical regimen changes and management plan discussed with her attending provider on the case. Medical. Will follow.
[2019-12-11] MEDS: IPRATROPIUM BROMIDE 0.02% NEB 0.5 MG/2.5 ML AMPUL NEB SCH ×2 (00:33→08:03)
[2019-12-11] MEDS: LEVALBUTEROL HCL NEB 1.25 MG/3 ML AMPUL NEB SCH ×2 (00:33→08:03)
[2019-12-11] MEDS: OXYCODONE HCL IR 5 MG TABLET PO PRN ×2 (03:17→09:10)
[2019-12-11] MEDS: LORAZEPAM INJ 2 MG/1 ML VIAL IV PRN (05:48)
[2019-12-11] MEDS: GABAPENTIN 400 MG CAPSULE PO SCH ×2 (05:48→13:58)
[2019-12-11] MEDS: HEPARIN SOD (PORCINE) 5,000 UNIT/ML 1 ML VIAL SUBCUT SCH ×2 (05:48→13:55)
[2019-12-11 06:59] LABS: ANION GAP 5 (5-19); BLOOD UREA NITROGEN 17 mg/dL (7-20); CALCIUM 8.4 mg/dL (8.4-10.2); CARBON DIOXIDE 36 mmol/L (22-30); CHLORIDE 91 mmol/L (98-107); GLUCOSE 94 mg/dL (75-110)
[2019-12-11] MEDS: BUDESONIDE NEB 0.5 MG/2 ML AMPUL NEB SCH (08:03)
[2019-12-11] MEDS: LISINOPRIL 5 MG TABLET PO SCH (09:09)
[2019-12-11] MEDS: MIDODRINE HCL 5 MG TABLET PO SCH ×2 (09:09→13:57)
[2019-12-11] MEDS: FOLIC ACID 1 MG TABLET PO SCH (09:10)
[2019-12-11] MEDS: LIDOCAINE 5% (700 MG) TRANSDERMAL ADH..PATCH TP SCH (09:11)
[2019-12-11] MEDS: DOCUSATE SODIUM 100 MG CAPSULE PO SCH (09:11)
[2019-12-11] MEDS: FAMOTIDINE 20 MG TABLET PO SCH (09:11)
[2019-12-11] MEDS ORDERED: METOPROLOL SUCCINATE 25 MG TAB.SR.24H PO SCH (10:00)
[2019-12-11] MEDS ORDERED: FUROSEMIDE 40 MG TABLET PO SCH (10:00)
[2019-12-11] MEDS ORDERED: THIAMINE HCL 100 MG TABLET PO SCH (10:00)
--- NOTE | 2019-12-11 12:31 | PDOC DISCHARGE SUMMARY ---
Impression - Admit/DC Date/PCP Admission Date/Primary Care Provider: 12/01/19 20:24 [facility] Discharge Date: 12/11/19 - Discharge Diagnosis (1) Acute on chronic systolic congestive heart failure, NYHA class 3 Is this a current diagnosis for this admission?: Yes (2) Cardiogenic shock Is this a current diagnosis for this admission?: Yes (3) Hypotension Is this a current diagnosis for this admission?: Yes (4) COPD exacerbation Is this a current diagnosis for this admission?: Yes (5) Acute and chronic respiratory failure Is this a current diagnosis for this admission?: Yes (6) Alcohol use disorder, severe, dependence Is this a current diagnosis for this admission?: Yes (7) Diabetes mellitus type 2 in nonobese Is this a current diagnosis for this admission?: Yes (8) Hernia, inguinal, right Is this a current diagnosis for this admission?: Yes - Additional Information Resuscitation Status: Full Code Discharge Diet: Cardiac, Diabetic Discharge Activity: Activity As Tolerated, Balance Activity w/Rest, Weigh Daily Referrals: GENNY ZARCO MD [ACTIVE STAFF] - [facility] [Primary Care Provider] - (Patient will have to make own appointment. [facility] does not allow but the patient to make appointment.) Prescriptions: Furosemide [Lasix 40 mg Tablet] 40 mg PO DAILY #30 tablet Lidocaine [Lidoderm 5% (700 mg) Transdermal Patch] 1 patch TP DAILYP PRN #15 adh..patch PRN Reason: Famotidine [Pepcid 20 mg Tablet] 20 mg PO Q12 #60 tablet Lisinopril [Prinivil 5 mg Tablet] 2.5 mg PO DAILY #30 tablet Midodrine HCl [Proamatine 5 mg Tablet] 5 mg PO BID 15 Days #30 tablet Budesonide/Formoterol Fumarate [Symbicort HFA 160-4.5 mcg Inhaler 6 gm] 2 puff IH BID #1 inhaler Thiamine HCl [Thiamine 100 mg Tablet] 100 mg PO DAILY #30 tablet Metoprolol Succinate [Toprol Xl 25 mg Tab.sr] 25 mg PO DAILY #30 tab.sr.24h Tramadol HCl [Ultram] 50 mg PO Q8HP PRN #16 tablet PRN Reason: Albuterol Sulfate [Ventolin Hfa 8 gm Mdi (1 Mdi/ER Disp)] 2 puff IH Q6HP PRN #1 inhaler PRN Reason: Home Medications: Folic Acid [Folvite 1 mg Tablet] 1 mg PO DAILY 10/16/19 Gabapentin [Neurontin 300 mg Capsule] 1,200 mg PO Q8 10/16/19 Ketoconazole 1 applic TOP TIDP PRN 10/16/19 Cyanocobalamin (Vitamin B-12) [Vitamin B-12 Inj 1000 Mcg/1 ml Vial] 1,000 mcg IM .MONTHLY 12/01/19 Simvastatin [Zocor 40 mg Tablet] 80 mg PO QHS 12/01/19 Albuterol Sulfate [Ventolin Hfa 8 gm Mdi (1 Mdi/ER Disp)] 2 puff IH Q6HP PRN #1 inhaler 12/11/19 Budesonide/Formoterol Fumarate [Symbicort HFA 160-4.5 mcg Inhaler 6 gm] 2 puff IH BID #1 inhaler 12/11/19 Famotidine [Pepcid 20 mg Tablet] 20 mg PO Q12 #60 tablet 12/11/19 Furosemide [Lasix 40 mg Tablet] 40 mg PO DAILY #30 tablet 12/11/19 Lidocaine [Lidoderm 5% (700 mg) Transdermal Patch] 1 patch TP DAILYP PRN #15 adh..patch 12/11/19 Lisinopril [Prinivil 5 mg Tablet] 2.5 mg PO DAILY #30 tablet 12/11/19 Metoprolol Succinate [Toprol Xl 25 mg Tab.sr] 25 mg PO DAILY #30 tab.sr.24h 12/11/19 Midodrine HCl [Proamatine 5 mg Tablet] 5 mg PO BID 15 Days #30 tablet 12/11/19 Thiamine HCl [Thiamine 100 mg Tablet] 100 mg PO DAILY #30 tablet 12/11/19 Tramadol HCl [Ultram] 50 mg PO Q8HP PRN #16 tablet 12/11/19 History of Present Illiness History of Present Illness: DURAN TELLES is a 69 year old male who presented to the emergency room with acute dyspnea. He admits being slightly more short of breath than usual over the last 3 days but suddenly developed severe dyspnea, markedly worsened on exertion, associated with orthopnea and accompanied by air hunger just prior to coming to the emergency room. He called the [facility] to report his symptoms and was instructed to call EMS for transportation to the ER. He denied other associated or accompanying signs and symptoms. He admits numerous prior similar episodes related to chronic systolic congestive heart failure and chronic (oxygen dependent) obstructive pulmonary disease exacerbations. He has not identified any additional aggravating or ameliorating factors for his dyspnea. In the emergency room he was found to have a markedly elevated BNP with evidence of pulmonary edema on his chest x-ray. He was also noted to have a recurrence of his right inguinal hernia which was reduced without significant improvement in his overall status. His respiratory status and vital signs improved after receiving low-dose morphine. He was subsequently admitted to the [facility] for further evaluation and treatment of his acute pulmonary edema. Hospital Course Hospital Course: Patient was admitted for evaluation of shortness of breath and acute on chronic hypoxic respiratory failure. Patient's BNP was noted to be 13,900. CTA of the chest was done which was negative for any pulmonary embolism but did show bilateral pleural effusions as well as interstitial edema. Patient was started on treatment for acute on chronic systolic heart failure. TTE 12/02/2019 showing EF of 20%, moderate LV dilation, severe LV hypokinesis and estimated PASP of 56 mmHg. Patient's heart failure was thought to be secondary to medication noncompliance. Patient was also noted to be in cardiogenic shock with blood pressures going as low as 70s systolic. Patient persisted in hypotension even despite starting patient on Midodrine 10mg tid necessitating initiation of dopamine and dobutamine drip. On these, patient's blood pressure improved and was able to be diuresed with IV Lasix. Patient diuresed excellently well on this combination with a net fluid balance of -7.8L with aggressive diuresis for 4 days. His dobutamine and dopamine were later weaned off and his blood pressure has persisted within normal range. His Lasix has been converted to 40 mg p.o. daily. He has also been started on lisinopril 2.5 mg daily. Cardiology has been following throughout patient's hospitalization. Evaluated by cardiology regarding need for AICD which is indicated but patient's compliance issues and his refusal has impeded this. Patient has been instructed to follow- up with cardiology. Today I have started patient on Toprol-XL 25 mg daily and decrease his Midodrine drain to 5 mg twice daily. Patient refused to stay overnight to have his blood pressure monitored as well as his vitals monitored through the night into tomorrow continue this medication adjustments. He insists on being discharged despite my explanation. As such, I have checked his blood pressure 3 hours after administration of a.m. meds and his blood pressure is still normal. Patient has been discharged with strict instructions to continue his medications as prescribed and to monitor his blood pressure closely and to discontinue Midodrine if his BP trends over >130/80. Patient was also treated for COPD exacerbation with nebs and steroids. He is acute on chronic hypoxic respiratory failure has resolved at this time and patient is actually saturating in normal range on room air at this time. Patient does have 2 L nasal cannula which he uses at home according to him. During this admission as well, patient was evaluated for abdominal pain from right inguinal and also ventral hernia. His right inguinal hernia was reduced by surgery twice during this admission and no surgical intervention was recommended. Abdominal imaging revealed no evidence of bowel incarceration within the hernia. Pain control recommended. Physical Exam Vital Signs: Temp Pulse Resp BP Pulse Ox 98.2 F 110 H 18 116/50 L 96 12/11/19 08:00 12/11/19 08:03 12/11/19 08:03 12/11/19 08:00 12/11/19 08:03 Intake & Output 12/10/19 12/11/19 12/12/19 06:59 06:59 06:59 Intake Total 1498 1364 Output Total 3775 1150 Balance -2277 214 Weight 63.8 kg 64.6 kg General appearance: PRESENT: no acute distress, cooperative Neck exam: ABSENT: JVD Respiratory exam: PRESENT: symmetrical, unlabored. ABSENT: accessory muscle use, retraction, tachypnea, wheezes Cardiovascular exam: PRESENT: RRR, +S1, +S2. ABSENT: bradycardia GI/Abdominal exam: PRESENT: hernia, soft. ABSENT: distended, firm, guarding, rebound, rigid Extremities exam: ABSENT: calf tenderness Neurological exam: PRESENT: alert, awake Psychiatric exam: PRESENT: agitated. ABSENT: anxious Skin exam: ABSENT: jaundice Results Laboratory Results: WBC 7.8 10^3/uL (4.0-10.5) 12/08/19 05:20 RBC 4.01 10^6/uL (4.35-5.55) L 12/08/19 05:20 Hgb 10.3 g/dL (13.5-17.0) L 12/08/19 05:20 Hct 32.0 % (37.9-51.0) L 12/08/19 05:20 MCV 80 fl (80-97) 12/08/19 05:20 MCH 25.8 pg (27.0-33.4) L 12/08/19 05:20 MCHC 32.3 g/dL (32.0-36.0) 12/08/19 05:20 RDW 18.5 % (11.5-14.0) H 12/08/19 05:20 Plt Count 164 10^3/uL (150-450) 12/08/19 05:20 Lymph % (Auto) 13.3 % (13-45) 12/03/19 05:34 Bland % (Auto) 10.0 % (3-13) 12/03/19 05:34 Eos % (Auto) 1.6 % (0-6) 12/03/19 05:34 Baso % (Auto) 1.2 % (0-2) 12/03/19 05:34 Reticulocyte # 0.043 10^6/uL (0.028-0.122) 12/10/19 18:25 Absolute Neuts (auto) 8.7 10^3/uL (1.7-8.2) H 12/03/19 05:34 Absolute Lymphs (auto) 1.6 10^3/uL (0.5-4.7) 12/03/19 05:34 Absolute Monos (auto) 1.2 10^3/uL (0.1-1.4) 12/03/19 05:34 Absolute Eos (auto) 0.2 10^3/uL (0.0-0.6) 12/03/19 05:34 Absolute Basos (auto) 0.1 10^3/uL (0.0-0.2) 12/03/19 05:34 Seg Neutrophils % 73.9 % (42-78) 12/03/19 05:34 Retic Count (auto) 1.12 % (0.66-2.85) 12/10/19 18:25 PT 17.2 SEC (11.4-15.4) H 12/01/19 17:30 INR 1.39 12/01/19 17:30 APTT 36.5 SEC (23.5-35.8) H 12/01/19 17:30 Carbonic Acid 1.46 mmol/L (1.05-1.35) H 12/09/19 09:00 HCO3/H2CO3 Ratio 24:1 12/09/19 09:00 ABG pH 7.48 (7.35-7.45) H 12/09/19 09:00 ABG pCO2 48.4 mmHg (35-45) H 12/09/19 09:00 ABG pO2 96.1 mmHg (80-100) 12/09/19 09:00 ABG HCO3 35.4 mmol/L (20-24) H 12/09/19 09:00 ABG Total CO2 36.9 mmol/L (23-27) H 12/09/19 09:00 ABG O2 Saturation 97.7 % (94-98) 12/09/19 09:00 ABG Base Excess 10.6 mmol/L 12/09/19 09:00 VBG pH 7.37 (7.30-7.42) 12/07/19 17:05 VBG pCO2 55.3 mmHg (35-63) 12/07/19 17:05 VBG HCO3 31.5 mmol/L (20-32) 12/07/19 17:05 VBG Base Excess 5.2 mmol/L 12/07/19 17:05 FiO2 ROOM AIR 12/09/19 09:00 Sodium 132.0 mmol/L (137-145) L 12/11/19 05:41 Potassium 5.0 mmol/L (3.6-5.0) 12/11/19 05:41 Chloride 91 mmol/L (98-107) L 12/11/19 05:41 Carbon Dioxide 36 mmol/L (22-30) H 12/11/19 05:41 Anion Gap 5 (5-19) 12/11/19 05:41 BUN 17 mg/dL (7-20) 12/11/19 05:41 Creatinine 0.75 mg/dL (0.52-1.25) 12/11/19 05:41 Est GFR ( Amer) > 60 (>60) 12/11/19 05:41 Est GFR (MDRD) Non-Af > 60 (>60) 12/11/19 05:41 Glucose 94 mg/dL (75-110) 12/11/19 05:41 POC Glucose 118 mg/dL (70-110) H 12/03/19 11:16 Hemoglobin A1c % 4.9 % (4.7-6.0) 12/02/19 03:57 Calcium 8.4 mg/dL (8.4-10.2) 12/11/19 05:41 Magnesium 1.8 mg/dL (1.6-2.3) 12/09/19 05:48 Iron 63.8 ug/dL (49-181) 12/10/19 06:02 TIBC 392 ug/dL (250-450) 12/10/19 06:02 % Saturation 16 % 12/10/19 06:02 Ferritin 53.00 ng/mL (17.9-464.0) 12/10/19 06:02 Total Bilirubin 0.3 mg/dL (0.2-1.3) 12/07/19 05:00 Direct Bilirubin 0.0 mg/dL (0.0-0.4) 12/07/19 05:00 Neonat Total Bilirubin Not Reportable 12/07/19 05:00 Neonat Direct Bilirubin Not Reportable 12/07/19 05:00 Neonat Indirect Bili Not Reportable 12/07/19 05:00 AST 18 U/L (17-59) 12/07/19 05:00 ALT 10 U/L (<50) 12/07/19 05:00 Alkaline Phosphatase 123 U/L (38-126) 12/07/19 05:00 Creatine Kinase 37 U/L (55-170) L 12/02/19 09:58 CK-MB (CK-2) 2.33 ng/mL (<4.55) 12/02/19 09:58 Troponin I 0.044 ng/mL 12/02/19 09:58 NT-Pro-B Natriuret Pep 4920 pg/mL (<125) H 12/09/19 05:48 Total Protein 6.3 g/dL (6.3-8.2) 12/07/19 05:00 Albumin 3.0 g/dL (3.5-5.0) L 12/07/19 05:00 Triglycerides 62 mg/dL (<150) 12/02/19 03:57 Cholesterol 109.09 mg/dL (0-200) 12/02/19 03:57 LDL Cholesterol Direct 76 mg/dL (<100) 12/02/19 03:57 VLDL Cholesterol 12.0 mg/dL (10-31) 12/02/19 03:57 HDL Cholesterol 24 mg/dL (>40) L 12/02/19 03:57 Vitamin B12 644.0 pg/mL (239-931) 12/10/19 06:02 Folate > 20.00 ng/mL (>2.76) 12/10/19 06:02 TSH 2.03 uIU/mL (0.47-4.68) 12/05/19 05:44 Free T4 1.25 ng/dL (0.78-2.19) 12/05/19 05:44 Free T3 pg/mL 1.91 pg/mL (2.77-5.27) L 12/05/19 05:44 Urine Color STRAW 12/01/19 22:30 Urine Appearance CLEAR 12/01/19 22:30 Urine pH 5.0 (5.0-9.0) 12/01/19 22:30 Ur Specific [place] 1.012 12/01/19 22:30 Urine Protein NEGATIVE mg/dL (NEGATIVE) 12/01/19 22:30 Urine Glucose (UA) NEGATIVE mg/dL (NEGATIVE) 12/01/19 22:30 Urine Ketones NEGATIVE mg/dL (NEGATIVE) 12/01/19 22:30 Urine Blood NEGATIVE (NEGATIVE) 12/01/19 22:30 Urine Nitrite NEGATIVE (NEGATIVE) 12/01/19 22:30 Urine Bilirubin NEGATIVE (NEGATIVE) 12/01/19 22:30 Urine Urobilinogen NEGATIVE mg/dL (<2.0) 12/01/19 22:30 Ur Leukocyte Esterase NEGATIVE (NEGATIVE) 12/01/19 22:30 Urine WBC (Auto) 1 /HPF 12/01/19 22:30 Urine RBC (Auto) 1 /HPF 12/01/19 22:30 U Hyaline Cast (Auto) 1 /LPF 12/01/19 22:30 Squamous Epi Cells Auto <1 /HPF 12/01/19 22:30 Urine Mucus (Auto) RARE /LPF 12/01/19 22:30 Urine Ascorbic Acid NEGATIVE (NEGATIVE) 12/01/19 22:30 12/01/19 12/01/19 12/02/19 17:30 22:01 03:57 CK-MB (CK-2) 2.40 2.55 Troponin I 0.034 0.042 0.049 NT-Pro-B Natriuret Pep 58284 H 12/02/19 12/05/19 12/09/19 09:58 05:44 05:48 CK-MB (CK-2) 2.33 Troponin I 0.044 NT-Pro-B Natriuret Pep 8980 H 4920 H Impressions: Chest X-Ray 12/01/19 17:00 IMPRESSION: Mild pulmonary edema, improved from prior. Hyperinflated lungs which can be seen with obstructive lung disease. Chest/Abdomen CTA 12/01/19 19:27 IMPRESSION: Limited study secondary to excessive respiratory motion artifact. No evidence of pulmonary embolism to the lobar level. Moderate bilateral pleural effusions, left larger than right. The left-sided pleural effusion appears increased from the previous exam dated 07/18/2019; whereas, the right-sided pleural effusion appears similar. Patchy groundglass opacity within the periphery of the right upper lobe. This could indicate an atypical infectious/inflammatory process, to include viral pneumonitis, or a focus of interstitial edema. Cardiomegaly with trace pericardial effusion. Cirrhotic appearing liver with small amount of upper abdominal ascites. TECHNICAL DOCUMENTATION: Quality ID # 436: Final reports with documentation of one or more dose reduction techniques (e.g., Automated exposure control, adjustment of the mA and/or kV according to patient size, use of iterative reconstruction technique) copyright 2011 [employer]- All Rights Reserved Chest X-Ray 12/05/19 00:00 IMPRESSION: No significant interval change from prior. The central venous catheter is adequate . Pelvis Ultrasound 12/10/19 00:00 IMPRESSION: Fluid-filled mass in the right inguinal canal presumably represents persistent enlarging or recurrent hernia. Note: The CT study from recently shows no bowel within the hernia, only accumulation of simple appearing fluid. Plan Goals: Patient will schedule follow up at the [place] [facility] Time Spent: Greater than 30 Minutes Stroke Is this a Stroke Patient?: No Acute Heart Failure - Is this a Heart Failure Patient?: Yes Documentation of LVEF assessment?: Yes LVEF < 40%?: Yes-if yes answer questions a through e a) Discharged on ACEI?: Yes b) Discharges on ARB?: No-document contraindications Reason(s) not discharged on ARB: YOLANDA c) Discharged on ARNI?: No-Document Contraindications Reason(s) not discharged on ARNI: ACEI use within the prior 36 hours d) Discharged on evidence-based Beta sarina(carvedilol, sustained release metoprolol succinate, or bisoprolol)?: Yes e) For LVEF <35%, discharged on Aldosterone antagonist?: No-document contraincations Reason(s) not discharged on Aldosterone antagonist for LVEF < 35%: Other - Not yet optimized on MILAGRO inhibitor given caution for hypotension. 3. Anticoagulant therapy for permanect/persistent/paraoxysmal Afib or Aflutter: N/A
[2019-12-11 13:58] VITALS: BP 132/74
== END 2019-12-11 14:30 | disposition home health service (06) | DRG 291 ==
LOC: ER 16:20 → EH 20:24 → 3S 22:15
PROVIDERS: ADMIT Emergency Medicine; ATTEND Internal Medicine
PROC: 02H633Z Insertion of Infusion Device into Right Atrium, Percutaneous Approach (ICD-10-PCS; principal; 2019-12-05)
PROC: B548ZZA Ultrasonography of Superior Vena Cava, Guidance (ICD-10-PCS; 2019-12-05)
DX: I11.0 Hypertensive heart disease with heart failure (principal); J96.21 Acute and chronic respiratory failure with hypoxia; R57.0 Cardiogenic shock; J44.1 Chronic obstructive pulmonary disease with (acute) exacerbation; I50.23 Acute on chronic systolic (congestive) heart failure; I73.9 Peripheral vascular disease, unspecified; E03.9 Hypothyroidism, unspecified; K70.30 Alcoholic cirrhosis of liver without ascites; K40.90 Unilateral inguinal hernia, without obstruction or gangrene, not specified as recurrent; I27.20 Pulmonary hypertension, unspecified; F43.10 Post-traumatic stress disorder, unspecified; F17.210 Nicotine dependence, cigarettes, uncomplicated; F10.20 Alcohol dependence, uncomplicated; Y90.9 Presence of alcohol in blood, level not specified; I25.2 Old myocardial infarction; Z99.81 Dependence on supplemental oxygen; Z88.1 Allergy status to other antibiotic agents; Z88.0 Allergy status to penicillin; Z91.19 Patient's noncompliance with other medical treatment and regimen; Z98.84 Bariatric surgery status
CPT/HCPCS: 36415; 36600; 71045; 71046; 71275; 76857; 80048; 80053; 80061; 81001; 82550; 82553; 82607; 82728; 82746; 82803; 82962; 83036; 83540; 83550; 83735; 83880; 84439; 84443; 84481; 84484; 85025; 85027; 85045; 85610; 85730; 93005; 93010; 93306; 94640; 94660; 94667; 94668; 96374; 96375; 99285; C1751; C1758; J1250; J1265; J1630; J1642; J1644; J1885; J1940; J2020; J2060; J2270; J2920; J2930; J3230; J3360; J3490; J7120; J7512; J7620; S0119

== ENCOUNTER 2019-12-15 22:53 | Emergency (ER) | payer OTHER, MEDICARE ==
[2019-12-15] MEDS ORDERED: ONDANSETRON HCL INJ/PF 4 MG/2 ML SDV IV ONE (23:27)
[2019-12-15] MEDS ORDERED: MORPHINE SULFATE 10 MG/ML INJ IV ONE (23:27)
[2019-12-15] MEDS ORDERED: ALBUTEROL SULFATE HFA (90 MCG/PUFF) 8 GM MDI (1 MDI/ER DISP) IH ONE (23:30)
--- NOTE | 2019-12-15 23:35 | ER Document Report ---
ED General - General Chief Complaint: Shortness Of Breath Stated Complaint: Shortness of Breath Time Seen by Provider: 12/15/19 23:18 [facility] [[facility] - Follow up as needed Notes: Patient is a 69-year-old male that comes emergency department for chief complaint of acute onset of worsening shortness of breath and cough this afternoon and evening. Patient has a history of systolic congestive heart failure on diuretics and also recently on Midodrine, COPD with chronic respirat ory failure on home oxygen. He states he is vaccinated for influenza pneumonia. He also has a history of alcohol dependence, type 2 diabetes, and right inguinal hernia which he states hurts now but he denies is hurting differently than usual. He denies any other specific symptoms including vomiting, fever, or other areas of pain except for the lower abdomen. Patient states he was just discharged on 12/11/2019, he states his home medications did not come until today and he still only took the tramadol instead of anything else including the diuretics. Patient comes from home by EMS, he lives at home with 2 family members. TRAVEL OUTSIDE OF THE [place] IN LAST 30 DAYS: No - Related Data Allergies/Adverse Reactions: vancomycin Allergy (Unknown, Verified 12/15/19 23:20) azithromycin Allergy (Verified 12/15/19 23:20) hydrocodone Allergy (Verified 12/15/19 23:20) Penicillins Allergy (Verified 12/15/19 23:20) acetaminophen Adverse Reaction (Verified 12/15/19 23:20) ketorolac [From Toradol] Adverse Reaction (Verified 12/15/19 23:20) Nausea Past Medical History - General Information source: Patient - Social History Smoking Status: Former Smoker Frequency of alcohol use: None Drug Abuse: None Lives with: Family Family History: Reviewed & Not Pertinent, CAD, COPD, Hypertension Patient has suicidal ideation: No Patient has homicidal ideation: No - Past Medical History Cardiac Medical History: Reports: Hx Congestive Heart Failure - Chronic systolic congestive heart failure with ejection fraction of 25%;, Hx Coronary Artery Disease, Hx Heart Attack, Hx Hypertension, Hx Peripheral Vascular Disease - Chronic venous stasis Denies: Hx Atrial Fibrillation, Hx DVT, Hx Hypercholesterolemia, Hx Pulmonary Embolism Pulmonary Medical History: Reports: Hx Asthma, Hx Bronchitis, Hx COPD, Hx Pneu monia, Hx Respiratory Failure Neurological Medical History: Denies: Hx Seizures Endocrine Medical History: Reports: Hx Hypothyroidism. Denies: Hx Diabetes Mellitus Type 1, Hx Diabetes Mellitus Type 2, Hx Hyperthyroidism GI Medical History: Reports: Hx Cirrhosis - Alcoholic cirrhosis, Hx Hiatal Hernia. Denies: Hx Crohn's Disease, Hx Hepatitis, Hx Ulcerative Colitis Musculoskeletal Medical History: Denies Hx Arthritis, Denies Hx Gout Skin Medical History: Denies Hx Eczema, Denies Hx Psoriasis Psychiatric Medical History: Reports: Hx Post Traumatic Stress Disorder Denies: Hx Depression Infectious Medical History: Denies: Hx Hepatitis Past Surgical History: Reports: Hx Abdominal Surgery, Hx Cholecystectomy, Hx Orthopedic Surgery - Left knee surgery, left wrist surgery, Other - Gallbladder - Immunizations Immunizations up to date: Yes Hx Diphtheria, Pertussis, Tetanus Vaccination: Yes Hx Pneumococcal Vaccination: 09/14/16 Review of Systems - Review of Systems Constitutional: No symptoms reported EENT: No symptoms reported Cardiovascular: See HPI Respiratory: See HPI Gastrointestinal: See HPI Genitourinary: No symptoms reported Male Genitourinary: No symptoms reported Musculoskeletal: No symptoms reported Skin: No symptoms reported Hematologic/Lymphatic: No symptoms reported Neurological/Psychological: No symptoms reported Physical Exam - Vital signs Vitals: Temp Pulse Resp BP Pulse Ox 98.3 F 130 H 22 H 127/80 H 99 12/15/19 22:54 12/15/19 22:54 12/15/19 22:54 12/15/19 22:54 12/15/19 22:54 - Notes Notes: GENERAL: Alert, interacts well. No distress on oxygen but slightly restless HEAD: Normocephalic, atraumatic. EYES: Pupils equal, round, and reactive to light. Extraocular movements intact. ENT: Oral mucosa moist, tongue midline. Oropharynx unremarkable. Airway patent. NECK: Full range of motion. Supple. Trachea midline. No lymphadenopathy. LUNGS: Decreased bilaterally with a few scant expiratory wheezes, no rales noted, no tachypnea, labored breathing, or signs of respiratory distress. HEART: Tachycardia, regular rate with a few extrasystoles ABDOMEN: Nontender abdomen except there is a right inguinal hernia, this is soft but tender when I did reduce this. This did reduce fully and slowly came back out later. No induration or fluctuance, no erythema noted. Otherwise unremarkable. GENITOURINARY: No swelling or tenderness. Exam performed with [place] SERRATO at bedside. EXTREMITIES: Moves all 4 extremities spontaneously. No edema, normal radial and dorsalis pedis pulses bilaterally. No cyanosis. BACK: no cervical, thoracic, lumbar midline tenderness. No saddle anesthesia, normal distal neurovascular exam. Moves all extremities in full range of motion. NEUROLOGICAL: Alert and oriented x3. Normal speech. Cranial nerves II through XII grossly intact. Strength 5/5 in all extremities. PSYCH: Restless and irritable occasionally SKIN: Warm, dry, normal turgor. No rashes or lesions noted. Course - Re-evaluation Re-evalutation: 12/15/19 23:54 There has been delay in treatment and in work-up because patient is very difficult to get vascular access. I have placed a ultrasound-guided left basilic 20-gauge, treated patient but still unable to get labs, quality assurance technician from the lab will be coming to draw the blood. Chest x-ray showing tiny pleural effusion, no overt failure, unremarkable otherwise. EKG shows tachycardia but still sinus. Troponin is indeterminate, BNP is 11,000, this is lower than when patient was admitted but higher than at discharge. Patient has no rales on exam, no lower extremity edema, and he has been off of his medications since discharge. He was given his metoprolol for beta blockade, given dose of Lasix, patient did have diuresis and provided a urine sample which was unremarkable. CBC shows normocytic anemia which is not new, chemistry nonspecific, lactic is not elevated, venous blood gas unremarkable. On examination patient does have a right inguinal hernia but this is soft, not erythematous, and easily reduced. Patient did have pain with reduction, he does report intermittent sharp pain although he does admit this is not new. Because of patient's history of COPD, CHF, patient explains that he had a delay in repair and he is supposed be medically cleared by Dr. Sandoval with a visit on Thursday. Patient ambulated without hypoxia, difficulty breathing, and his heart rate was around 105. I discussed with Dr. Zacarias. Patient is requesting small amount of pain medication until Thursday to hopefully be medically cleared to have the hernia repaired. He is not vomiting, he is tolerating p.o. well, he is asymptomatic on my reevaluation. Dr. Ruiz does recommend the patient can be discharged with strict return with cautions in regards to the hernia and he is breathing, he can be given small amount of pain medication, and he is to follow- up on Thursday along with taking his home medications. I discussed this at length with patient. Patient states understanding and agreement with plan. Stable and well-appearing at time of discharge. - Vital Signs Vital signs: Temp Pulse Resp BP Pulse Ox 98.3 F 130 H 19 110/95 H 100 12/15/19 22:54 12/15/19 22:54 12/16/19 03:02 12/16/19 03:02 12/16/19 03:02 - Laboratory Result Diagrams: 12/16/19 01:05 12/16/19 01:05 Laboratory results interpreted by me: 12/16/19 12/16/19 12/16/19 01:05 01:05 01:05 RBC 3.33 L Hgb 9.0 L Hct 26.9 L RDW 18.6 H Plt Count 133 L Sodium 135.8 L Calcium 8.0 L NT-Pro-B Natriuret Pep 21494 H Albumin 3.1 L Discharge - Discharge Clinical Impression: Shortness of breath, Right inguinal hernia Condition: Stable Disposition: HOME, SELF-CARE Additional Instructions: Follow-up with Dr. Comer on Thursday for your preop testing. Only take the pain medication if needed, if you do also take the stool softener to avoid constipation. Make sure you take your regular prescribed medications without fail. Return if you worsen including fever, vomiting, severe worsening pain, difficulty breathing, inability to push the hernia area back in, or any other concerning symptoms. Prescriptions: Polyethylene Glycol 3350 [Miralax Powder 17 gm/Packet] 1 packet PO DAILY PRN #1 pkg PRN Reason: Morphine Sulfate [Morphine Ir 15 Mg Tablet] 0.5 - 1 tab PO TID PRN #12 tablet PRN Reason: [facility]errals: [facility] [[facility]] - Follow up as needed
[2019-12-16] MEDS ORDERED: ALBUTEROL SULFATE HFA (90 MCG/PUFF) 8 GM MDI IH ONE (00:15)
--- NOTE | 2019-12-16 00:53 | RADIOLOGY REPORT (SQ) ---
EXAM DESCRIPTION: XR CHEST 1 VIEW COMPLETED DATE/TME: 12/15/2019 23:27 CLINICAL HISTORY: 69 years, Male, shortness of breath, cough COMPARISON: 12/01/2019 chest NUMBER OF VIEWS: 1 TECHNIQUE: Portable chest LIMITATIONS: None. FINDINGS: The heart is enlarged but stable. Atheromatous change thoracic aorta. Osteopenia. No pneumothorax. Post surgical change left clavicle. Blunting of the left costophrenic angle consistent with tiny left effusion and/or pleural thickening. Lungs are otherwise clear IMPRESSION: Tiny left effusion and/or pleural thickening. Stable cardiomegaly copyright 2011 [employer]- All Rights Reserved
[2019-12-16 01:23] LABS: VENOUS BLOOD BASE EXCESS 0.8 mmol/L; VENOUS BLOOD HCO3 26.4 mmol/L (20-32); VENOUS BLOOD PH 7.37 (7.30-7.42)
[2019-12-16 01:25] LABS: ABSOLUTE BASOPHILS # (AUTO) 0.1 10^3/uL (0.0-0.2); ABSOLUTE EOSINOPHILS # (AUTO) 0.2 10^3/uL (0.0-0.6); ABSOLUTE LYMPHOCYTES (AUTO) 1.1 10^3/uL (0.5-4.7); ABSOLUTE MONOCYTES (AUTO) 0.6 10^3/uL (0.1-1.4); ABSOLUTE NEUT (AUTO) 3.8 10^3/uL (1.7-8.2); BASOPHILS % (AUTO) 0.9 % (0-2); EOSINOPHILS % (AUTO) 3.7 % (0-6); HEMATOCRIT 26.9 % (37.9-51.0); LYMPHOCYTES % (AUTO) 19.1 % (13-45); MEAN CORPUSCULAR HEMOGLOBIN 27.1 pg (27.0-33.4); MEAN CORPUSCULAR HGB CONC 33.6 g/dL (32.0-36.0); MEAN CORPUSCULAR VOLUME 81 fl (80-97); MONOCYTES % (AUTO) 10.9 % (3-13); PLATELET COUNT 133 10^3/uL (150-450); RED BLOOD COUNT 3.33 10^6/uL (4.35-5.55); RED CELL DISTRIBUTION WIDTH 18.6 % (11.5-14.0); SEGMENTED NEUTROPHILS % (AUTO) 65.4 % (42-78); TOTAL CELLS COUNTED % (AUTO) 100 %; WHITE BLOOD COUNT 5.8 10^3/uL (4.0-10.5)
[2019-12-16 01:37] LABS: ALBUMIN 3.1 g/dL (3.5-5.0); ALKALINE PHOSPHATASE 111 U/L (38-126); ANION GAP 5 (5-19); ASPARTATE AMINO TRANSFERASE 34 U/L (17-59); BILIRUBIN,DIRECT 0.2 mg/dL (0.0-0.4); BILIRUBIN,TOTAL 0.4 mg/dL (0.2-1.3); BLOOD UREA NITROGEN 14 mg/dL (7-20); CARBON DIOXIDE 27 mmol/L (22-30); CHLORIDE 104 mmol/L (98-107); GLUCOSE 93 mg/dL (75-110); POTASSIUM 3.9 mmol/L (3.6-5.0); TOTAL PROTEIN 6.7 g/dL (6.3-8.2)
[2019-12-16 01:39] LABS: ALCOHOL < 10 mg/dL (NONE DETECTED)
[2019-12-16 01:49] LABS: TROPONIN I 0.032 ng/mL
[2019-12-16] MEDS ORDERED: FUROSEMIDE INJ/PF 40 MG/4 ML SDV IV ONE (02:00)
[2019-12-16] MEDS ORDERED: METOPROLOL SUCCINATE 25 MG TAB.SR.24H PO ONE (02:00)
[2019-12-16 03:17] VITALS: BP 110/95
[2019-12-16 03:30] LABS: APPEARANCE,URINE CLEAR; BILIRUBIN,URINE NEGATIVE (NEGATIVE); COLOR,URINE YELLOW; GLUCOSE, URINE NEGATIVE (NEGATIVE); KETONES,URINE NEGATIVE (NEGATIVE); LEUKOCYTE ESTERASE,URINE NEGATIVE (NEGATIVE); NITRITE,URINE NEGATIVE (NEGATIVE); PROTEIN,URINE NEGATIVE (NEGATIVE); UROBILINOGEN,URINE NEGATIVE mg/dL (<2.0)
[2019-12-16] MEDS ORDERED: MORPHINE SULFATE 10 MG/ML INJ IV ONE (04:06)
--- NOTE | 2019-12-16 16:49 | EKG REPORT ---
SEVERITY:- BORDERLINE ECG - SINUS TACHYCARDIA WITH FREQUENT APCs BORDERLINE LEFT AXIS DEVIATION BORDERLINE T ABNORMALITIES, LATERAL LEADS VPC : Confirmed by: Mary Man 16-Dec-2019 16:48:38
== END 2019-12-16 05:11 | disposition home or self-care (01) ==
LOC: ER 22:53
DX: J96.10 Chronic respiratory failure, unspecified whether with hypoxia or hypercapnia (principal); J44.9 Chronic obstructive pulmonary disease, unspecified; K40.90 Unilateral inguinal hernia, without obstruction or gangrene, not specified as recurrent; I11.0 Hypertensive heart disease with heart failure; I50.22 Chronic systolic (congestive) heart failure; R00.0 Tachycardia, unspecified; R45.1 Restlessness and agitation; J90 Pleural effusion, not elsewhere classified; D64.9 Anemia, unspecified; R05 Cough; E11.51 Type 2 diabetes mellitus with diabetic peripheral angiopathy without gangrene; Z99.81 Dependence on supplemental oxygen; Z87.01 Personal history of pneumonia (recurrent); Z87.891 Personal history of nicotine dependence; Z88.1 Allergy status to other antibiotic agents; Z88.8 Allergy status to other drugs, medicaments and biological substances; Z88.0 Allergy status to penicillin; Z88.6 Allergy status to analgesic agent; Z88.5 Allergy status to narcotic agent
CPT/HCPCS: 93005; 96376; 99285; 96374; 96375; 36415; 87040; 80307; 83605; 85025; 80053; 81001; 84484; 82803; 83880; 71045; 93010; J1940; J2270; J2405; J3490

== ENCOUNTER 2019-12-20 16:35 | Emergency (ER) | payer OTHER, MEDICARE ==
[2019-12-20 17:27] LABS: ABSOLUTE BASOPHILS # (AUTO) 0.1 10^3/uL (0.0-0.2); ABSOLUTE EOSINOPHILS # (AUTO) 0.3 10^3/uL (0.0-0.6); ABSOLUTE MONOCYTES (AUTO) 0.6 10^3/uL (0.1-1.4); ABSOLUTE NEUT (AUTO) 4.4 10^3/uL (1.7-8.2); EOSINOPHILS % (AUTO) 4.3 % (0-6); HEMATOCRIT 28.6 % (37.9-51.0); HEMOGLOBIN 9.4 g/dL (13.5-17.0); LYMPHOCYTES % (AUTO) 15.7 % (13-45); MEAN CORPUSCULAR HEMOGLOBIN 26.5 pg (27.0-33.4); MEAN CORPUSCULAR HGB CONC 32.8 g/dL (32.0-36.0); MEAN CORPUSCULAR VOLUME 81 fl (80-97); MONOCYTES % (AUTO) 9.3 % (3-13); PLATELET COUNT 169 10^3/uL (150-450); RED BLOOD COUNT 3.55 10^6/uL (4.35-5.55); RED CELL DISTRIBUTION WIDTH 19.8 % (11.5-14.0); SEGMENTED NEUTROPHILS % (AUTO) 69.7 % (42-78); TOTAL CELLS COUNTED % (AUTO) 100 %; WHITE BLOOD COUNT 6.3 10^3/uL (4.0-10.5)
[2019-12-20] MEDS ORDERED: LORAZEPAM INJ 2 MG/1 ML VIAL IV ONE (17:30)
--- NOTE | 2019-12-20 17:34 | RADIOLOGY REPORT (SQ) ---
EXAM DESCRIPTION: CHEST SINGLE VIEW IMAGES COMPLETED DATE/TIME: 12/20/2019 5:20 pm REASON FOR STUDY: SOB COMPARISON: 12/19/2019 EXAM PARAMETERS: NUMBER OF VIEWS: One view. TECHNIQUE: Single frontal radiographic view of the chest acquired. RADIATION DOSE: NA LIMITATIONS: None. FINDINGS: LUNGS AND PLEURA: Stable very small left pleural effusion. No acute pulmonary consolidat ion. No pneumothorax. MEDIASTINUM AND HILAR STRUCTURES: No masses. Contour normal. HEART AND VASCULAR STRUCTURES: Cardiomegaly, stable finding. Normal vasculature. BONES: No acute findings. HARDWARE: The osseous structures are stable in appearance. Left clavicular orthopedic hardware agai n noted. OTHER: No other significant finding. IMPRESSION: 1. No significant interval changes since the prior study dated 12/19/2019. Cardiomegaly, stable finding. No acute findings. 2. Very small stable left pleural effusion. TECHNICAL DOCUMENTATION: JOB ID: [id number] 2010 [employer]- All Rights Reserved Reading location - IP/workstation name: [email or web address]
--- NOTE | 2019-12-20 17:44 | ER Document Report ---
ED Respiratory Problem - General Chief Complaint: Shortness Of Breath Stated Complaint: SHORTNESS OF BREATH Time Seen by Provider: 12/20/19 17:28 Primary Care Provider: [facility]LL[facility] [Primary Care Provider] - Follow up as needed Mode of Arrival: Medic Information source: Patient Notes: 69-year-old man presents to the emergency department history of COPD, CHF, reported diabetes and a chronic right inguinal hernia who presents to the emergency department with a chief complaint of shortness of breath and right inguinal pain. He has been seen on multiple occasions in the emergency department and on the inpatient services with complaints related to his end- stage lung disease inguinal hernia. He is being evaluated as an outpatient for possible inguinal hernia surgery. This is his third ER visit with a complaint of continued shortness of breath and right inguinal pain in the past few days. Patient is resting quietly when I entered the room, however after awakening him he complains of worsening shortness of breath concerns about the inguinal hernia which is easily reducible. He continues to smoke cigarettes daily. TRAVEL OUTSIDE OF THE [place] IN LAST 30 DAYS: No - Related Data Allergies/Adverse Reactions: vancomycin Allergy (Unknown, Verified 12/19/19 15:48) azithromycin Allergy (Verified 12/19/19 15:48) hydrocodone Allergy (Verified 12/19/19 15:48) Penicillins Allergy (Verified 12/19/19 15:48) acetaminophen Adverse Reaction (Verified 12/19/19 15:48) ketorolac [From Toradol] Adverse Reaction (Verified 12/19/19 15:48) Nausea Past Medical History - Social History Smoking Status: Current Every Day Smoker Family History: Reviewed & Not Pertinent, CAD, COPD, Hypertension - Past Medical History Cardiac Medical History: Reports: Hx Congestive Heart Failure - Chronic systolic congestive heart failure with ejection fraction of 25%;, Hx Coronary Artery Disease, Hx Heart Attack, Hx Hypertension, Hx Peripheral Vascular Disease - Chronic venous stasis Denies: Hx Atrial Fibrillation, Hx DVT, Hx Hypercholesterolemia, Hx Pulmonary Embolism Pulmonary Medical History: Reports: Hx Asthma, Hx Bronchitis, Hx COPD, Hx Pneumo teri, Hx Respiratory Failure Neurological Medical History: Denies: Hx Seizures Endocrine Medical History: Reports: Hx Hypothyroidism. Denies: Hx Diabetes Mellitus Type 1, Hx Diabetes Mellitus Type 2, Hx Hyperthyroidism GI Medical History: Reports: Hx Cirrhosis - Alcoholic cirrhosis, Hx Hiatal Hernia. Denies: Hx Crohn's Disease, Hx Hepatitis, Hx Ulcerative Colitis Musculoskeletal Medical History: Denies Hx Arthritis, Denies Hx Gout Skin Medical History: Denies Hx Eczema, Denies Hx Psoriasis Psychiatric Medical History: Reports: Hx Post Traumatic Stress Disorder Denies: Hx Depression Infectious Medical History: Denies: Hx Hepatitis Past Surgical History: Reports: Hx Abdominal Surgery, Hx Cholecystectomy, Hx Orthopedic Surgery - Left knee surgery, left wrist surgery, Other - Gallbladder - Immunizations Immunizations up to date: Yes Hx Diphtheria, Pertussis, Tetanus Vaccination: Yes Hx Pneumococcal Vaccination: 09/14/16 Review of Systems - Review of Systems Notes: Constitutional: Negative for fever. HENT: Negative for sore throat. Eyes: Negative for visual changes. Cardiovascular: Negative for chest pain. Respiratory: + Shortness of breath. Gastrointestinal: + Inguinal hernia, right Genitourinary: Negative for dysuria. Musculoskeletal: Negative for back pain. Skin: Negative for rash. Neurological: Negative for headaches, weakness or numbness. 10 point ROS negative except as marked above and in HPI. Physical Exam - Vital signs Vitals: Temp BP 97.9 F 109/69 12/20/19 16:36 12/20/19 16:36 - Notes Notes: PHYSICAL EXAMINATION: Physical Exam: General: Chronically ill 69-year-old man no acute distress HEENT: NC/AT, pupils equal round and reactive to light, MM moist,nares clear, oropharynx clear, airway patent Neck: supple, no adenopathy, no masses. Good range of motion Lungs: Upper airway rhonchi and no respiratory distress. CVS: Tachycardic rate and rhythm no murmur gallop or rub Abdomen: Soft, active, nontender, no masses, no hepatosplenomegaly, + right inguinal hernia easily reducible Ext: No edema, clubbing or cyanosis. Neuro: Alert and responsive, moving all 4 extremities on command, cranial nerves intact, no focal findings Skin: Intact no open lesions, no rash PSYCH: Normal mood, normal affect. Course - Re-evaluation Re-evalutation: 12/20/19 20:04 Patient was given a Xopenex nebulizer treatment due to to his complaint of shortness of breath and a resting tachycardia. Review of his prior visits the patient has had a resting tachycardia. He is on nasal cannula O2 is on home O2. I explained to patient that if there are new findings and we can make a determination that hospitalization will be of benefit. However, if this is his baseline illness he will be discharged home with the hope that he can avoid coronavirus infection which may complicate and threaten his health in general. - Vital Signs Vital signs: Temp Pulse Resp BP Pulse Ox 97.9 F 17 109/66 96 12/20/19 21:07 12/20/19 20:30 12/20/19 20:30 12/20/19 21:07 - Laboratory Result Diagrams: 12/20/19 17:03 12/20/19 17:03 Laboratory results interpreted by me: 12/20/19 12/20/19 12/20/19 17:03 17:03 17:03 RBC 3.55 L Hgb 9.4 L Hct 28.6 L MCH 26.5 L RDW 19.8 H Sodium 136.4 L Carbon Dioxide 32 H Anion Gap 3 L Calcium 7.7 L NT-Pro-B Natriuret Pep 8400 H Total Protein 6.2 L Albumin 2.9 L 12/20/19 20:06 I have reviewed laboratory data and used this information for the treatment decisions regarding the patient. - Diagnostic Test Radiology reviewed: Image reviewed, Reports reviewed - Chest x-ray: Cardiomegaly with trace left pleural effusion, no acute infiltrate or interval change in the chest x-ray. - EKG Interpretation by Me Rate: Tachycardia - Sinus tachycardia, rate 107, borderline left axis deviation, nonspecific T wave abnormality, lateral leads. Interpretation: Abnormal EKG. No specific changes when compared to previous EKG 12/19/2019. Discharge - Discharge Clinical Impression: Hernia, inguinal, right, History of CHF (congestive heart failure) COPD (chronic obstructive pulmonary disease) Qualifiers: COPD type: unspecified COPD Qualified Code(s): J44.9 - Chronic obstructive pulmonary disease, unspecified Chronic respiratory failure Qualifiers: Respiratory failure complication: hypoxia Qualified Code(s): J96.11 - Chronic respiratory failure with hypoxia Condition: Fair Disposition: HOME, SELF-CARE Instructions: Chronic Obstructive Lung Disease ([facility]) Additional Instructions: You were seen in the emergency department tonight with chronic lung problems and right inguinal hernia. There have been no interval changes in your findings, the pathology of late stage respiratory disease and O2 dependence as well as the inguinal hernia. Please follow-up as an outpatient regarding staging for possible inguinal hernia repair. Continue your home nebulizer treatment and your fluid pills. Please continue to reduce your smoking cigarettes as it will complicate your progressive lung problem and would be dangerous with oxygen use. [facility]errals: [facility] [[facility]] - Follow up as needed
[2019-12-20] MEDS ORDERED: LEVALBUTEROL HCL NEB 1.25 MG/3 ML AMPUL NEB ONE (17:52)
[2019-12-20 17:59] LABS: ALBUMIN 2.9 g/dL (3.5-5.0); ALKALINE PHOSPHATASE 121 U/L (38-126); ASPARTATE AMINO TRANSFERASE 37 U/L (17-59); BILIRUBIN,DIRECT 0.2 mg/dL (0.0-0.4); BILIRUBIN,TOTAL 0.4 mg/dL (0.2-1.3); BLOOD UREA NITROGEN 18 mg/dL (7-20); CALCIUM 7.7 mg/dL (8.4-10.2); GLUCOSE 110 mg/dL (75-110); POTASSIUM 3.7 mmol/L (3.6-5.0); TOTAL PROTEIN 6.2 g/dL (6.3-8.2)
[2019-12-20 18:04] LABS: CARBON DIOXIDE 32 mmol/L (22-30); CHLORIDE 101 mmol/L (98-107)
[2019-12-20 18:17] LABS: ANION GAP 3 (5-19)
[2019-12-20 20:52] VITALS: BP 109/66
--- NOTE | 2019-12-20 21:57 | EKG REPORT ---
SEVERITY:- ABNORMAL ECG - SINUS TACHYCARDIA BORDERLINE LEFT AXIS DEVIATION NONSPECIFIC T ABNORMALITIES, LATERAL LEADS : Confirmed by: Lorenza Sandoval MD 20-Dec-2019 21:56:17
== END 2019-12-20 21:07 | disposition home or self-care (01) ==
LOC: ER 16:35
DX: J96.11 Chronic respiratory failure with hypoxia (principal); J44.9 Chronic obstructive pulmonary disease, unspecified; K40.90 Unilateral inguinal hernia, without obstruction or gangrene, not specified as recurrent; I11.0 Hypertensive heart disease with heart failure; I50.22 Chronic systolic (congestive) heart failure; I25.10 Atherosclerotic heart disease of native coronary artery without angina pectoris; R00.0 Tachycardia, unspecified; F17.210 Nicotine dependence, cigarettes, uncomplicated; Z99.81 Dependence on supplemental oxygen; Z87.01 Personal history of pneumonia (recurrent); Z88.1 Allergy status to other antibiotic agents; Z88.6 Allergy status to analgesic agent; Z88.5 Allergy status to narcotic agent; Z88.0 Allergy status to penicillin
CPT/HCPCS: 93005; 94640; 99285; 96374; 36415; 85025; 80053; 84484; 83880; 71045; 93010; J2060; J3490

== ENCOUNTER 2019-12-21 14:19 | Emergency (ER) | payer OTHER, MEDICARE ==
--- NOTE | 2019-12-21 15:24 | ER Document Report ---
ED Cardiac - General Chief Complaint: Arrhythmia Stated Complaint: SHORTNESS OF BREATH Time Seen by Provider: 12/21/19 15:08 [facility] [[facility] - Follow up as needed Mode of Arrival: Medic Information source: Patient Notes: 77-year-old man presents to the emergency department with a history of CHF, COPD, inguinal hernia. He was seen by the solution developer today evaluation for possible preop for inguinal hernia surgery. Patient states that he was sent to the emergency department for admission to the hospital for pacemaker placement before inguinal surgery can be planned. Dr. Long saw the patient this morning. I discussed the patient with the solution developer who states that he has explained to the patient he will need an AICD because he has a cardiomyopathy and an ejection fraction of approximately 25%. He did not direct the patient to come to the emergency department. The patient chose to come here because he wanted p ain medication. TRAVEL OUTSIDE OF THE [place] IN LAST 30 DAYS: No - Related Data Allergies/Adverse Reactions: vancomycin Allergy (Unknown, Verified 12/19/19 15:48) azithromycin Allergy (Verified 12/19/19 15:48) hydrocodone Allergy (Verified 12/19/19 15:48) Penicillins Allergy (Verified 12/19/19 15:48) acetaminophen Adverse Reaction (Verified 12/19/19 15:48) ketorolac [From Toradol] Adverse Reaction (Verified 12/19/19 15:48) Nausea Past Medical History - Social History Smoking Status: Current Every Day Smoker Family History: Reviewed & Not Pertinent, CAD, COPD, Hypertension Patient has suicidal ideation: No Patient has homicidal ideation: No - Past Medical History Cardiac Medical History: Reports: Hx Congestive Heart Failure - Chronic systolic congestive heart failure with ejection fraction of 25%;, Hx Coronary Artery Disease, Hx Heart Attack, Hx Hypertension, Hx Peripheral Vascular Disease - Chronic venous stasis Denies: Hx Atrial Fibrillation, Hx DVT, Hx Hypercholesterolemia, Hx Pulmonary Embolism Pulmonary Medical History: Reports: Hx Asthma, Hx Bronchitis, Hx COPD, Hx Pneumonia, Hx Respiratory Failure Neurological Medical History: Denies: Hx Seizures Endocrine Medical History: Reports: Hx Hypothyroidism. Denies: Hx Diabetes Mellitus Type 1, Hx Diabetes Mellitus Type 2, Hx Hyperthyroidism GI Medical History: Reports: Hx Cirrhosis - Alcoholic cirrhosis, Hx Hiatal Hernia. Denies: Hx Crohn's Disease, Hx Hepatitis, Hx Ulcerative Colitis Musculoskeletal Medical History: Denies Hx Arthritis, Denies Hx Gout Skin Medical History: Denies Hx Eczema, Denies Hx Psoriasis Psychiatric Medical History: Reports: Hx Post Traumatic Stress Disorder Denies: Hx Depression Infectious Medical History: Denies: Hx Hepatitis Past Surgical History: Reports: Hx Abdominal Surgery, Hx Cholecystectomy, Hx Ort hopedic Surgery - Left knee surgery, left wrist surgery, Other - Gallbladder - Immunizations Immunizations up to date: Yes Hx Diphtheria, Pertussis, Tetanus Vaccination: Yes Hx Pneumococcal Vaccination: 09/14/16 Review of Systems - Review of Systems Notes: Constitutional: Negative for fever. HENT: Negative for sore throat. Eyes: Negative for visual changes. Cardiovascular: Negative for chest pain. Respiratory: +shortness of breath. Gastrointestinal: + Right inguinal hernia Genitourinary: Negative for dysuria. Musculoskeletal: Negative for back pain. Skin: Negative for rash. Neurological: Negative for headaches, weakness or numbness. 10 point ROS negative except as marked above and in HPI. Physical Exam - Vital signs Vitals: BP 115/78 12/21/19 14:34 - Notes Notes: PHYSICAL EXAMINATION: Physical Exam: General: Presently ill 69-year-old man complaining of pain in the right inguinal area. HEENT: NC/AT, pupils equal round and reactive to light, MM moist,nares clear, oropharynx clear, airway patent Neck: supple, no adenopathy, no masses. Good range of motion Lungs: clear, no wheezing, no rales no rhonchi CVS: Regular rate and rhythm no murmur gallop or rub Abdomen: Soft, active, nontender, no masses, right inguinal hernia easily reduced. Ext: No edema, clubbing or cyanosis. Neuro: Alert and responsive, moving all 4 extremities on command, cranial nerves intact, no focal findings Skin: Intact no open lesions, no rash PSYCH: Normal mood, normal affect. Course - Vital Signs Vital signs: Temp Pulse Resp BP Pulse Ox 98.1 F 19 124/70 99 12/21/19 14:38 12/21/19 19:14 12/21/19 19:15 12/21/19 19:02 - Laboratory Result Diagrams: 12/21/19 17:30 12/21/19 17:30 Laboratory results interpreted by me: 12/21/19 12/21/19 12/21/19 17:30 17:30 17:30 RBC 3.59 L Hgb 9.6 L Hct 28.8 L MCH 26.6 L RDW 19.5 H PT 16.7 H APTT 37.6 H Sodium 134.9 L Carbon Dioxide 31 H Glucose 192 H Calcium 8.0 L Creatine Kinase < 20 L NT-Pro-B Natriuret Pep Albumin 3.1 L Urine Protein Urine Urobilinogen 12/21/19 12/21/19 17:30 18:01 RBC Hgb Hct MCH RDW PT APTT Sodium Carbon Dioxide Glucose Calcium Creatine Kinase NT-Pro-B Natriuret Pep 5440 H Albumin Urine Protein 30 H Urine Urobilinogen 4.0 H - Diagnostic Test Radiology reviewed: Image reviewed, Reports reviewed - EKG Interpretation by Me Rate: Tachycardia - EKG: Sinus tachycardia, nonspecific ST abnormalities, lateral leads. No acute changes from the previous EKG dated 12/20/2019. Discharge - Discharge Clinical Impression: Hernia, inguinal, right Cardiomyopathy Qualifiers: Cardiomyopathy type: unspecified Qualified Code(s): I42.9 - Cardiomyopathy, unspecified COPD (chronic obstructive pulmonary disease) Qualifiers: COPD type: unspecified COPD Qualified Code(s): J44.9 - Chronic obstructive pulmonary disease, unspecified CHF (congestive heart failure) Qualifiers: Heart failure type: other Qualified Code(s): I50.9 - Heart failure, unspecified Condition: Stable Disposition: HOME, SELF-CARE Additional Instructions: You are seen in the emergency room tonight with pain related to your inguinal hernia. As you are aware the hernia cannot be repaired until your cardiac status has been stabilized. Cardiology believes that you need a AICD before that can be done. Given the current endemic, no elective procedures are being performed. Your solution developer will work with you to schedule the procedure as soon as possible. You may use a cold compress over the area of the inguinal hernia to reduce the pain. [facility]errals: [facility] [Primary [facility]] - Follow up as needed
--- NOTE | 2019-12-21 15:48 | RADIOLOGY REPORT (SQ) ---
EXAM DESCRIPTION: CHEST SINGLE VIEW IMAGES COMPLETED DATE/TIME: 12/21/2019 3:38 pm REASON FOR STUDY: shortness of breath COMPARISON: 12/20/2019 EXAM PARAMETERS: NUMBER OF VIEWS: One view. TECHNIQUE: Single frontal radiographic view of the chest acquired. RADIATION DOSE: NA LIMITATIONS: None. FINDINGS: LUNGS AND PLEURA: No opacities, masses or pneumothorax. No pleural effusion. MEDIASTINUM AND HILAR STRUCTURES: No masses. Contour normal. HEART AND VASCULAR STRUCTURES: Heart remains enlarged. No failure. BONES: No acute findings. HARDWARE: None in the chest. OTHER: No other significant finding. IMPRESSION: Stable cardiomegaly. No acute findings. TECHNICAL DOCUMENTATION: JOB ID: [id number] 2010 [employer]- All Rights Reserved Reading location - IP/workstation name: [email or web address]
[2019-12-21 17:40] LABS: ABSOLUTE BASOPHILS # (AUTO) 0.1 10^3/uL (0.0-0.2); ABSOLUTE EOSINOPHILS # (AUTO) 0.3 10^3/uL (0.0-0.6); ABSOLUTE MONOCYTES (AUTO) 0.4 10^3/uL (0.1-1.4); ABSOLUTE NEUT (AUTO) 4.3 10^3/uL (1.7-8.2); BASOPHILS % (AUTO) 0.9 % (0-2); EOSINOPHILS % (AUTO) 5.2 % (0-6); HEMATOCRIT 28.8 % (37.9-51.0); HEMOGLOBIN 9.6 g/dL (13.5-17.0); LYMPHOCYTES % (AUTO) 16.8 % (13-45); MEAN CORPUSCULAR HEMOGLOBIN 26.6 pg (27.0-33.4); MEAN CORPUSCULAR HGB CONC 33.2 g/dL (32.0-36.0); MEAN CORPUSCULAR VOLUME 80 fl (80-97); MONOCYTES % (AUTO) 6.7 % (3-13); PLATELET COUNT 179 10^3/uL (150-450); RED BLOOD COUNT 3.59 10^6/uL (4.35-5.55); RED CELL DISTRIBUTION WIDTH 19.5 % (11.5-14.0); SEGMENTED NEUTROPHILS % (AUTO) 70.4 % (42-78); TOTAL CELLS COUNTED % (AUTO) 100 %; WHITE BLOOD COUNT 6.1 10^3/uL (4.0-10.5)
[2019-12-21 17:49] LABS: INTERNATIONAL RATION (INR) 1.34; PROTHROMBIN TIME 16.7 SEC (11.4-15.4)
[2019-12-21 17:50] LABS: PARTIAL THROMBOPLASTIN TIME 37.6 SEC (23.5-35.8)
[2019-12-21 17:57] LABS: ALBUMIN 3.1 g/dL (3.5-5.0); ALKALINE PHOSPHATASE 122 U/L (38-126); ANION GAP 5 (5-19); ASPARTATE AMINO TRANSFERASE 41 U/L (17-59); BILIRUBIN,TOTAL 0.4 mg/dL (0.2-1.3); BLOOD UREA NITROGEN 16 mg/dL (7-20); CARBON DIOXIDE 31 mmol/L (22-30); CHLORIDE 99 mmol/L (98-107); GLUCOSE 192 mg/dL (75-110); POTASSIUM 3.6 mmol/L (3.6-5.0); TOTAL PROTEIN 6.6 g/dL (6.3-8.2)
[2019-12-21 17:59] LABS: CREATINE KINASE < 20 U/L (55-170)
[2019-12-21 18:10] LABS: CREATINE KINASE MB 1.09 ng/mL (<4.55); TROPONIN I 0.03 ng/mL
[2019-12-21 18:26] LABS: APPEARANCE,URINE CLEAR; BILIRUBIN,URINE NEGATIVE (NEGATIVE); GLUCOSE, URINE NEGATIVE (NEGATIVE); KETONES,URINE NEGATIVE (NEGATIVE); PROTEIN,URINE 30 mg/dL (NEGATIVE); URINE SPECIFIC GRAVITY 1.023
[2019-12-21 18:29] LABS: COLOR,URINE YELLOW
[2019-12-21] MEDS ORDERED: MORPHINE SULFATE 10 MG/ML INJ IV ONE (18:34)
[2019-12-21 20:45] VITALS: BP 114/70
--- NOTE | 2019-12-21 21:48 | EKG REPORT ---
SEVERITY:- ABNORMAL ECG - SINUS TACHYCARDIA NONSPECIFIC T ABNORMALITIES, LATERAL LEADS : Confirmed by: Lorenza Sandoval MD 21-Dec-2019 21:47:47
== END 2019-12-21 21:09 | disposition home or self-care (01) ==
LOC: ER 14:19
DX: K40.90 Unilateral inguinal hernia, without obstruction or gangrene, not specified as recurrent (principal); R06.02 Shortness of breath; I42.9 Cardiomyopathy, unspecified; F17.200 Nicotine dependence, unspecified, uncomplicated; J44.9 Chronic obstructive pulmonary disease, unspecified; I50.9 Heart failure, unspecified; I11.0 Hypertensive heart disease with heart failure; I25.10 Atherosclerotic heart disease of native coronary artery without angina pectoris; Z88.3 Allergy status to other anti-infective agents; Z88.0 Allergy status to penicillin; Z90.49 Acquired absence of other specified parts of digestive tract; I25.2 Old myocardial infarction
CPT/HCPCS: 93005; 99285; 96374; 36415; 82553; 82550; 85025; 85610; 85730; 80053; 81001; 84484; 83880; 71045; 93010; J2270

== ENCOUNTER 2019-12-30 22:01 | Emergency (ER) | payer OTHER, MEDICARE ==
[2019-12-30] MEDS ORDERED: MORPHINE SULFATE 10 MG/ML INJ IV ONE (22:33)
[2019-12-30] MEDS ORDERED: ONDANSETRON HCL INJ/PF 4 MG/2 ML SDV IV ONE (22:33)
[2019-12-30] MEDS ORDERED: IPRATROPIUM/ALBUTEROL 0.5-2.5 MG/3 ML AMPUL NEB ONE (22:34)
--- NOTE | 2019-12-30 22:36 | ER Document Report ---
ED General - General Chief Complaint: Rib Pain Stated Complaint: RIB PAIN Time Seen by Provider: 12/30/19 22:21 Primary Care Provider: [facility] [Provider Group] - 01/02/20 Notes: Patient is a 69-year-old male that comes emergency department for chief complaint of intermittently sharp pain from his right inguinal hernia. He has a known her history of hernia, he states that he was supposed to get cleared for preop but when he saw his bowl attendant he was told he needs a pacemaker defibrillator before they can proceed with surgical repair. He states he could not sleep because the pain was bothering him too much tonight. He is not prescribed pain medication other than tramadol and it is not working. Patient has a complicated medical history including systolic congestive heart failure on Lasix, he takes Midodrine, he also has a history of COPD with chronic respiratory failure on home oxygen. In addition of this he has type 2 diabetes. Patient denies shortness of breath beyond his normal, he states he missed his evening nebulizer treatment and he is asking for one, he denies cough, fever, vomiting, or any other areas of pain. He states he was able to have a normal bowel movement earlier. TRAVEL OUTSIDE OF THE [place] IN LAST 30 DAYS: No - Related Data Allergies/Adverse Reactions: vancomycin Allergy (Unknown, Verified 12/19/19 15:48) azithromycin Allergy (Verified 12/19/19 15:48) hydrocodone Allergy (Verified 12/19/19 15:48) Penicillins Allergy (Verified 12/19/19 15:48) acetaminophen Adverse Reaction (Verified 12/19/19 15:48) ketorolac [From Toradol] Adverse Reaction (Verified 12/19/19 15:48) Nausea Past Medical History - General Information source: Patient - Social History Smoking Status: Current Every Day Smoker Drug Abuse: None Lives with: Family Family History: Reviewed & Not Pertinent, CAD, COPD, Hypertension - Past Medical History Cardiac Medical History: Reports: Hx Congestive Heart Failure - Chronic systolic congestive heart failure with ejection fraction of 25%;, Hx Coronary Artery Disease, Hx Heart Attack, Hx Hypertension, Hx Peripheral Vascular Disease - Chronic venous stasis Denies: Hx Atrial Fibrillation, Hx DVT, Hx Hypercholesterolemia, Hx Pulmonary Embolism Pulmonary Medical History: Reports: Hx Asthma, Hx Bronchitis, Hx COPD, Hx Pneumonia, Hx Respiratory Failure Neurological Medical History: Denies: Hx Seizures Endocrine Medical History: Reports: Hx Hypothyroidism. Denies: Hx Diabetes Mellitus Type 1, Hx Diabetes Mellitus Type 2, Hx Hyperthyroidism GI Medical History: Reports: Hx Cirrhosis - Alcoholic cirrhosis, Hx Hiatal Hernia. Denies: Hx Crohn's Disease, Hx Hepatitis, Hx Ulcerative Colitis Musculoskeletal Medical History: Denies Hx Arthritis, Denies Hx Gout Skin Medical History: Denies Hx Eczema, Denies Hx Psoriasis Psychiatric Medical History: Reports: Hx Post Traumatic Stress Disorder Denies: Hx Depression Infectious Medical History: Denies: Hx Hepatitis Past Surgical History: Reports: Hx Abdominal Surgery, Hx Cholecystectomy, Hx Orthopedic Surgery - Left knee surgery, left wrist surgery, Other - Gallbladder - Immunizations Immunizations up to date: Yes Hx Diphtheria, Pertussis, Tetanus Vaccination: Yes Hx Pneumococcal Vaccination: 09/14/16 Review of Systems - Review of Systems Constitutional: No symptoms reported EENT: No symptoms reported Cardiovascular: No symptoms reported Respiratory: No symptoms reported Gastrointestinal: See HPI Genitourinary: No symptoms reported Male Genitourinary: No symptoms reported Musculoskeletal: No symptoms reported Skin: No symptoms reported Hematologic/Lymphatic: No symptoms reported Neurological/Psychological: No symptoms reported Physical Exam - Vital signs Vitals: Pulse Ox 100 12/30/19 22:17 - Notes Notes: GENERAL: Alert, interactive, anxious HEAD: Normocephalic, atraumatic. EYES: Pupils equal, round, and reactive to light. Extraocular movements intact. ENT: Oral mucosa moist, tongue midline. Oropharynx unremarkable. Airway patent. NECK: Full range of motion. Supple. Trachea midline. No lymphadenopathy. LUNGS: Clear to auscultation bilaterally, no wheezes, rales, or rhonchi. No respiratory distress. Non-tender chest wall. HEART: Mildly tachycardic, normal rhythm. No murmur ABDOMEN: Right inguinal hernia noted, this is still soft, it is tender but reducible, there is no erythema, firmness, or other abnormality noted. Abdomen unremarkable otherwise. GENITOURINARY: No swelling, tenderness, or other abnormality noted. EXTREMITIES: Moves all 4 extremities spontaneously. No edema, normal radial and dorsalis pedis pulses bilaterally. No cyanosis. BACK: no cervical, thoracic, lumbar midline tenderness. No saddle anesthesia, normal distal neurovascular exam. Moves all extremities in full range of motion. NEUROLOGICAL: Alert and oriented x3. Normal speech. Cranial nerves II through XII grossly intact. Strength 5/5 in all extremities. PSYCH: Anxious, slightly irritable SKIN: Warm, dry, normal turgor. No rashes or lesions noted. Course - Re-evaluation Re-evalutation: Patient was extremely anxious when I initially evaluated him, however he does not have an incarcerated hernia, he is tachycardic but his vital signs are otherwise unremarkable, patient has a similar presentation to the last time I saw him for the same complaint. Patient was medicated, after this patient calm, well-appearing, tachycardia resolved. CBC approximately baseline chemistry unremarkable, lactic acid is not elevated, evaluation is not consistent with incarcerated hernia. Patient stating frustration with the fact that he has had his surgery delayed again, continued recurrent pain, and poor health for surgery. He states that tramadol that he has been prescribed not working, I did review [facility] aware and I am the last person that prescribed him any pain medicine other than tramadol. I did discuss the patient with Dr. Jimenez. I discussed the patient had now because he is not a candidate for surgery until he has additional cardiology management that he appears to need chronic pain management, this is the weekend, therefore he was provided with only a few pain medications for this weekend, he is to follow-up with pain management on Thursday. Patient does state appreciation and agreement. Stable and well-appearing at time of discharge. - Vital Signs Vital signs: Temp Pulse Resp BP Pulse Ox 97.5 F 103 H 21 H 130/76 H 99 12/31/19 00:49 12/31/19 00:49 12/31/19 01:01 12/31/19 01:01 12/31/19 01:01 - Laboratory Result Diagrams: 12/30/19 23:58 12/30/19 23:58 Laboratory results interpreted by me: 12/30/19 12/30/19 23:58 23:58 RBC 3.33 L Hgb 9.2 L Hct 27.7 L RDW 19.3 H Eos % (Auto) 8.3 H Sodium 134.5 L Calcium 7.9 L Alkaline Phosphatase 170 H Albumin 3.3 L Discharge - Discharge Clinical Impression: Right inguinal hernia Abdominal pain Qualifiers: Abdominal location: generalized Qualified Code(s): R10.84 - Generalized abdominal pain Condition: Stable Disposition: HOME, SELF-CARE Additional Instructions: You have been given a small amount of pain medicine this weekend, it is important that you follow-up with pain management starting on Thursday because this has become an ongoing issue. I recommend you take the stool softener with it as well. Return if you worsen including vomiting, severe worsening pain, swelling, developing redness, fever, or any other concerning symptoms. Prescriptions: Polyethylene Glycol 3350 [Miralax Powder 17 gm/Packet] 1 packet PO DAILY PRN #1 pkg PRN Reason: Morphine Sulfate [Morphine Ir 15 Mg Tablet] 15 mg PO TID PRN #6 tablet PRN Reason: Referrals: [facility] [Provider Group] - 01/02/20
[2019-12-31 00:17] LABS: ABSOLUTE BASOPHILS # (AUTO) 0.1 10^3/uL (0.0-0.2); ABSOLUTE EOSINOPHILS # (AUTO) 0.4 10^3/uL (0.0-0.6); ABSOLUTE LYMPHOCYTES (AUTO) 0.9 10^3/uL (0.5-4.7); ABSOLUTE MONOCYTES (AUTO) 0.5 10^3/uL (0.1-1.4); ABSOLUTE NEUT (AUTO) 3.4 10^3/uL (1.7-8.2); BASOPHILS % (AUTO) 1.9 % (0-2); EOSINOPHILS % (AUTO) 8.3 % (0-6); HEMATOCRIT 27.7 % (37.9-51.0); HEMOGLOBIN 9.2 g/dL (13.5-17.0); LYMPHOCYTES % (AUTO) 17.3 % (13-45); MEAN CORPUSCULAR HEMOGLOBIN 27.5 pg (27.0-33.4); MEAN CORPUSCULAR HGB CONC 33.1 g/dL (32.0-36.0); MEAN CORPUSCULAR VOLUME 83 fl (80-97); MONOCYTES % (AUTO) 8.6 % (3-13); PLATELET COUNT 228 10^3/uL (150-450); RED BLOOD COUNT 3.33 10^6/uL (4.35-5.55); RED CELL DISTRIBUTION WIDTH 19.3 % (11.5-14.0); SEGMENTED NEUTROPHILS % (AUTO) 63.9 % (42-78); TOTAL CELLS COUNTED % (AUTO) 100 %; WHITE BLOOD COUNT 5.4 10^3/uL (4.0-10.5)
[2019-12-31 00:26] LABS: ALBUMIN 3.3 g/dL (3.5-5.0); ALKALINE PHOSPHATASE 170 U/L (38-126); ANION GAP 7 (5-19); ASPARTATE AMINO TRANSFERASE 58 U/L (17-59); BILIRUBIN,TOTAL 0.6 mg/dL (0.2-1.3); BLOOD UREA NITROGEN 18 mg/dL (7-20); CALCIUM 7.9 mg/dL (8.4-10.2); CARBON DIOXIDE 28 mmol/L (22-30); CHLORIDE 100 mmol/L (98-107); GLUCOSE 107 mg/dL (75-110); POTASSIUM 4.5 mmol/L (3.6-5.0); TOTAL PROTEIN 7.2 g/dL (6.3-8.2)
[2019-12-31 01:41] VITALS: BP 130/76
== END 2019-12-31 01:57 | disposition home or self-care (01) ==
LOC: ER 22:01
DX: K40.90 Unilateral inguinal hernia, without obstruction or gangrene, not specified as recurrent (principal); R10.84 Generalized abdominal pain; R07.81 Pleurodynia; Z79.899 Other long term (current) drug therapy; J44.9 Chronic obstructive pulmonary disease, unspecified; Z99.81 Dependence on supplemental oxygen; Z88.1 Allergy status to other antibiotic agents; Z88.0 Allergy status to penicillin; Z88.8 Allergy status to other drugs, medicaments and biological substances; F17.200 Nicotine dependence, unspecified, uncomplicated; I50.9 Heart failure, unspecified; I25.10 Atherosclerotic heart disease of native coronary artery without angina pectoris; I25.2 Old myocardial infarction; I10 Essential (primary) hypertension
CPT/HCPCS: 94640; 99283; 96374; 96375; 36415; 83605; 85025; 80053; J2270; J2405; J7620

== ENCOUNTER 2020-01-02 06:33 | Emergency (ER) | payer OTHER, MEDICARE ==
[2020-01-02] MEDS ORDERED: IPRATROPIUM/ALBUTEROL 0.5-2.5 MG/3 ML AMPUL NEB ONE (06:39)
[2020-01-02] MEDS ORDERED: LORAZEPAM INJ 2 MG/1 ML VIAL IV ONE (06:54)
[2020-01-02] MEDS ORDERED: METHYLPREDNISOLONE INJ 125 MG/2 ML SDV IV ONE (06:57)
--- NOTE | 2020-01-02 07:02 | ER Document Report ---
ED General - General Chief Complaint: Shortness Of Breath Stated Complaint: DIFFICULTY BREATHING Time Seen by Provider: 01/02/20 06:42 Primary Care Provider: GENNY ZARCO MD [Primary Care Provider] - Follow up as needed TRAVEL OUTSIDE OF THE [place] IN LAST 30 DAYS: No - HPI Notes: Chief complaint: Shortness of breath History of present illness: 69-year-old male followed at the [facility] with longstanding history of severe COPD with chronic oxygen dependency, CAD, ischemic cardiomyopathy and ongoing cigarette smoking now presenting with worsening dyspnea over several days. He denies fever or chills. He denies chest pain. He denies sputum production. He denies known exposure to COVID virus. He denies travel outside the area. Patient is been previously told that he needs an AICD but has not yet had this implanted. He is known to have an ejection fraction under 25%. - Related Data Allergies/Adverse Reactions: vancomycin Allergy (Unknown, Verified 12/19/19 15:48) azithromycin Allergy (Verified 12/19/19 15:48) hydrocodone Allergy (Verified 12/19/19 15:48) Penicillins Allergy (Verified 12/19/19 15:48) acetaminophen Adverse Reaction (Verified 12/19/19 15:48) ketorolac [From Toradol] Adverse Reaction (Verified 12/19/19 15:48) Nausea Past Medical History - General Information source: Patient - Social History Smoking Status: Current Every Day Smoker Chew tobacco use (# tins/day): No Drug Abuse: None Family History: Reviewed & Not Pertinent, CAD, COPD, Hypertension Patient has suicidal ideation: No Patient has homicidal ideation: No - Past Medical History Cardiac Medical History: Reports: Hx Congestive Heart Failure - Chronic systolic congestive heart failure with ejection fraction of 25%;, Hx Coronary Artery Disease, Hx Heart Attack, Hx Hypertension, Hx Peripheral Vascular Disease - Chronic venous stasis Denies: Hx Atrial Fibrillation, Hx DVT, Hx Hypercholesterolemia, Hx Pulmonary Embolism Pulmonary Medical History: Reports: Hx Asthma, Hx Bronchitis, Hx COPD, Hx Pneumonia, Hx Respiratory Failure Neurological Medical History: Denies: Hx Seizures Endocrine Medical History: Reports: Hx Hypothyroidism. Denies: Hx Diabetes Mellitus Type 1, Hx Diabetes Mellitus Type 2, Hx Hyperthyroidism GI Medical History: Reports: Hx Cirrhosis - Alcoholic cirrhosis, Hx Hiatal Hernia. Denies: Hx Crohn's Disease, Hx Hepatitis, Hx Ulcerative Colitis Musculoskeletal Medical History: Denies Hx Arthritis, Denies Hx Gout Skin Medical History: Denies Hx Eczema, Denies Hx Psoriasis Psychiatric Medical History: Reports: Hx Post Traumatic Stress Disorder Denies: Hx Depression Infectious Medical History: Denies: Hx Hepatitis Past Surgical History: Reports: Hx Abdominal Surgery, Hx Cholecystectomy, Hx Orthopedic Surgery - Left knee surgery, left wrist surgery, Other - Gallbladder - Immunizations Immunizations up to date: Yes Hx Diphtheria, Pertussis, Tetanus Vaccination: Yes Hx Pneumococcal Vaccination: 09/14/16 Review of Systems - Review of Systems Notes: Constitutional: Negative for fever. HENT: Negative for sore throat. Eyes: Negative for visual changes. Cardiovascular: Negative for chest pain. Respiratory: As per HPI. Gastrointestinal: Negative for abdominal pain, vomiting or diarrhea. Genitourinary: Negative for dysuria. Musculoskeletal: Negative for back pain. Skin: Negative for rash. Neurological: Negative for headaches, weakness or numbness. 10 point ROS negative except as marked above and in HPI. Physical Exam - Vital signs Vitals: Pulse Ox 99 01/02/20 06:36 - Notes Notes: GENERAL: Frail elderly male appearing in moderate respiratory distress and very anxious. SKIN: Widespread scattered ecchymoses. Good turgor no rashes. HEAD: Normocephalic atraumatic. EYES: PERRLA. EOMI. Conjunctivae and sclerae clear. EARS: CANALS AND TMS CLEAR. NOSE: CLEAR. MOUTH: Moist mucosa. Good dentition. No stridor or edema. No drooling. NECK: Supple. No masses or thyromegaly. No adenopathy. Carotids 2+ without bruits. Mild JVD at 45 degrees elevation. BACK: Symmetrical without tenderness. CHEST: Healed CABG scar. Tachypneic with moderate use of accessory muscles. Scattered wheezes and rhonchi bilaterally which are symmetrical. HEART: Tachycardic regular rhythm. No murmur gallop or rub. ABDOMEN: Multiple abdominal surgical scars. Mildly distended. Soft nontender without masses, organomegaly or rebound. Bowel sounds normally active. No bruits. GENITALIA: Deferred. EXTREMITIES: Trace bilateral pretibial edema. No calf tenderness. Cap refill less than 1.5 seconds. Dorsalis pedis and posterior tibial pulses 3+ and symmetrical. NEUROLOGICAL: GCS 15. Alert and oriented x3. Normal gait. Fluent speech. Cranial nerves II through XII intact. Sensorimotor and cerebellar normal. Normal tone. PSYCHIATRIC: Anxious affect. Course - Re-evaluation Re-evalutation: 01/02/20 07:06 Patient appears to have COPD exacerbation with acute respiratory failure superimposed on chronic respiratory failure. I recommended a trial of BiPAP. Patient was vehemently opposed to this stating that he is never been able to tolerate the mask in the past due to claustrophobia. I talked with him about potential need for intubation if we are unable to use BiPAP. After some extended discussion about this matter I gave him 0.5 of Ativan IV which provided mild sedation and seemed to improve his overall status. We gave him a brief trial of BiPAP and he again became very agitated and could not tolerate this. We going to get an arterial blood gas this time and have given him some IV steroids and we are awaiting his EKG, chest x-ray and other labs. Will observe his respiratory status very closely. - Vital Signs Vital signs: Temp Pulse Resp BP Pulse Ox 97.9 F 25 H 123/69 97 01/02/20 06:55 01/02/20 11:01 01/02/20 11:00 01/02/20 11:01 - Laboratory Result Diagrams: 01/02/20 06:53 01/02/20 06:53 Laboratory results interpreted by me: 01/02/20 01/02/20 01/02/20 06:53 06:53 06:53 RBC 3.62 L Hgb 10.2 L Hct 31.1 L RDW 19.4 H PT APTT ABG pO2 ABG HCO3 ABG Total CO2 Sodium 133.4 L Potassium 5.2 H Calcium 8.3 L Alkaline Phosphatase 173 H NT-Pro-B Natriuret Pep 67701 H 01/02/20 01/02/20 06:53 08:40 RBC Hgb Hct RDW PT 16.9 H APTT 37.4 H ABG pO2 101.4 H ABG HCO3 26.2 H ABG Total CO2 27.5 H Sodium Potassium Calcium Alkaline Phosphatase NT-Pro-B Natriuret Pep - EKG Interpretation by Me Additional EKG results interpreted by me: 01/02/20 07:36 Twelve-lead EKG from 0712 hrs. reviewed contemporaneously by me demonstrating sinus tachycardia with a rate of 127 with a QRS axis of 0 degrees normal intervals and nonspecific T wave changes laterally. There are no significant ST shifts. Critical Care Note - Critical Care Note Total time excluding time spent on procedures (mins): 35 - Respiratory failure requiring BiPAP Discharge - Discharge Clinical Impression: Chronic pain syndrome COPD (chronic obstructive pulmonary disease) Qualifiers: COPD type: emphysema Emphysema type: unspecified Qualified Code(s): J43.9 - Emphysema, unspecified CHF (congestive heart failure) Qualifiers: Heart failure type: unspecified Heart failure chronicity: unspecified Qualified Code(s): I50.9 - Heart failure, unspecified Condition: Stable Disposition: HOME, SELF-CARE Additional Instructions: Congestive Heart Failure You have been diagnosed as having congestive heart failure (CHF). CHF occurs when the heart is unable to pump blood efficiently, leading to fluid buildup in the veins and lungs. Typical symptoms are swelling of the legs, shortness of breath on minor exertion, and fatigue. CHF is treated with salt restriction, medicine to eliminate excess water and salt from the body, and medication to help the heart contract more efficiently. Eliminate added salt and salty foods in your diet. Decrease your activity until excess fluid has been eliminated. It will also be helpful to raise the head of your bed so you can sleep more easily. Keep a daily record of your weight. This will help your physician monitor your progress. Once extra water has been eliminated, light aerobic exercise daily -- such as walking -- will be helpful (unless your physician has told you to restrict activity for other reasons). Be sure to follow up with the physician as instructed. Contact the doctor at once if you worsen in any way. Additional fluid medication has been prescribed for you. See your doctor at the [place] regarding pain management. Prescriptions: Morphine Sulfate [Morphine Ir 15 mg Tablet] 15 mg PO Q6HP PRN 2 Days #6 tablet PRN Reason: Furosemide [Lasix 20 mg Tablet] 20 mg PO DAILY 30 Days #30 tablet Referrals: GENNY ZARCO MD [Primary Care Provider] - Follow up as needed
[2020-01-02 07:18] LABS: INTERNATIONAL RATION (INR) 1.36; PROTHROMBIN TIME 16.9 SEC (11.4-15.4)
[2020-01-02 07:19] LABS: ABSOLUTE EOSINOPHILS # (AUTO) 0.3 10^3/uL (0.0-0.6); ABSOLUTE LYMPHOCYTES (AUTO) 1.7 10^3/uL (0.5-4.7); ABSOLUTE MONOCYTES (AUTO) 0.9 10^3/uL (0.1-1.4); ABSOLUTE NEUT (AUTO) 7.6 10^3/uL (1.7-8.2); BASOPHILS % (AUTO) 0.3 % (0-2); EOSINOPHILS % (AUTO) 2.5 % (0-6); HEMATOCRIT 31.1 % (37.9-51.0); HEMOGLOBIN 10.2 g/dL (13.5-17.0); LYMPHOCYTES % (AUTO) 16.1 % (13-45); MEAN CORPUSCULAR HEMOGLOBIN 28.3 pg (27.0-33.4); MEAN CORPUSCULAR HGB CONC 32.9 g/dL (32.0-36.0); MEAN CORPUSCULAR VOLUME 86 fl (80-97); MONOCYTES % (AUTO) 8.8 % (3-13); PARTIAL THROMBOPLASTIN TIME 37.4 SEC (23.5-35.8); PLATELET COUNT 244 10^3/uL (150-450); RED BLOOD COUNT 3.62 10^6/uL (4.35-5.55); RED CELL DISTRIBUTION WIDTH 19.4 % (11.5-14.0); SEGMENTED NEUTROPHILS % (AUTO) 72.3 % (42-78); TOTAL CELLS COUNTED % (AUTO) 100 %; WHITE BLOOD COUNT 10.5 10^3/uL (4.0-10.5)
[2020-01-02] MEDS ORDERED: FUROSEMIDE INJ/PF 20 MG/2 ML SDV IV ONE (07:23)
[2020-01-02 07:30] LABS: ALBUMIN 3.6 g/dL (3.5-5.0); ALKALINE PHOSPHATASE 173 U/L (38-126); ANION GAP 7 (5-19); ASPARTATE AMINO TRANSFERASE 55 U/L (17-59); BLOOD UREA NITROGEN 19 mg/dL (7-20); CALCIUM 8.3 mg/dL (8.4-10.2); CARBON DIOXIDE 26 mmol/L (22-30); CHLORIDE 100 mmol/L (98-107); GLUCOSE 102 mg/dL (75-110); POTASSIUM 5.2 mmol/L (3.6-5.0); TOTAL PROTEIN 7.8 g/dL (6.3-8.2)
[2020-01-02 07:36] LABS: ALCOHOL < 10 mg/dL (NONE DETECTED)
[2020-01-02 07:48] LABS: TROPONIN I 0.04 ng/mL
--- NOTE | 2020-01-02 07:56 | RADIOLOGY REPORT (SQ) ---
EXAM DESCRIPTION: X-ray single view chest. CLINICAL HISTORY: 69 years Male, dyspnea COMPARISON: 12/21/2019 and 12/20/2019 TECHNIQUE: Single portable x-ray view of the chest performed on 01/02/2020 at 7:21 AM FINDINGS: The lung volumes are low. There is developing volume loss in the left lung base which may be due to a combination of pleural fluid, atelectasis or pneumonia. There is mild prominence of the right hilar structures which a be related to crowding of the central vessels due to hypoinflation of the lungs. Mild right perihilar vascular congestion is not excluded. There is no evidence of a pneumothorax. The cardiac silhouette is stable and is prominent. The mediastinal contours are normal. No acute osseous abnormality is identified. There are remote postsurgical changes of the left clavicle. No focal soft tissue abnormalities are seen. Lines and tubes: None. IMPRESSION: 1. Developing volume loss in the left lung base which may be due to a combination of pleural fluid, atelectasis and/or pneumonia. 2. Right perihilar interstitial prominence which may be due to crowding of the central vessels versus mild vascular congestion. 3. Stable prominence of the cardiac silhouette.
[2020-01-02 08:35] LABS: A TYPE INFLUENZA AG NEGATIVE (NEGATIVE); B INFLUENZA AG NEGATIVE (NEGATIVE)
[2020-01-02 08:58] LABS: ARTERIAL BLOOD BASE EXCESS 1.7 mmol/L; ARTERIAL BLOOD H2CO3 1.23 mmol/L (1.05-1.35); ARTERIAL BLOOD HCO3 26.2 mmol/L (20-24); ARTERIAL BLOOD O2 SATURATION 97.8 % (94-98); ARTERIAL BLOOD PCO2 40.7 mmHg (35-45); ARTERIAL BLOOD PH 7.43 (7.35-7.45); ARTERIAL BLOOD PO2 101.4 mmHg (80-100); ARTERIAL BLOOD TOTAL CO2 27.5 mmol/L (23-27)
[2020-01-02 09:02] LABS: ARTERIAL BLOOD FIO2 4L
[2020-01-02] MEDS ORDERED: MORPHINE SULFATE IR 15 MG TABLET PO ONE (09:20)
[2020-01-02 11:08] VITALS: BP 123/69
--- NOTE | 2020-01-02 22:48 | EKG REPORT ---
SEVERITY:- ABNORMAL ECG - SINUS TACHYCARDIA NONSPECIFIC T ABNORMALITIES, LATERAL LEADS VPC : Confirmed by: Mary Man 02-Jan-2020 22:47:15
== END 2020-01-02 12:27 | disposition home or self-care (01) ==
LOC: ER 06:33
DX: J43.9 Emphysema, unspecified (principal); J96.90 Respiratory failure, unspecified, unspecified whether with hypoxia or hypercapnia; Z99.81 Dependence on supplemental oxygen; I11.0 Hypertensive heart disease with heart failure; I50.22 Chronic systolic (congestive) heart failure; I25.5 Ischemic cardiomyopathy; I25.10 Atherosclerotic heart disease of native coronary artery without angina pectoris; G89.4 Chronic pain syndrome; R58 Hemorrhage, not elsewhere classified; R00.0 Tachycardia, unspecified; F17.200 Nicotine dependence, unspecified, uncomplicated; Z88.1 Allergy status to other antibiotic agents; Z88.6 Allergy status to analgesic agent; Z88.5 Allergy status to narcotic agent; Z88.0 Allergy status to penicillin
CPT/HCPCS: 93005; 99291; 36415; 87040; 80307; 82803; 83735; 85025; 85610; 85730; 80053; 84484; 87804; 83880; 71045; 93010; 36600; 94660; J1940; J2930; J2060; J7620

== ENCOUNTER 2020-01-08 | Emergency (ER) | payer OTHER ==
--- NOTE | 2020-01-08 01:43 | ER Document Report ---
Entered by ALEXUS MACEDO SCRIBE 01/08/20 0129 Acting as scribe for:KAMILAH OLMSTEAD IV, MD ED Respiratory Problem - General Chief Complaint: Shortness Of Breath Stated Complaint: SHORTNESS OF BREATH Primary Care Provider: GENNY ZARCO MD [Primary Care Provider] - Follow up as needed Mode of Arrival: Medic Information source: Patient Notes: This 69 year old male patient with a history of CHF, COPD, PNA, asthma, and bronchitis brought in by EMS presents to the ED today with complaints of shortness of breath that started yesterday morning. Patient states that he has felt short of breath all day yesterday, but it was worse tonight. He reports that he thinks "fluid is building up on me again." He also reports groin pain due to an inguinal hernia that he has had for approximately x1 month. TRAVEL OUTSIDE OF THE [place] IN LAST 30 DAYS: No - Related Data Allergies/Adverse Reactions: vancomycin Allergy (Unknown, Verified 12/19/19 15:48) azithromycin Allergy (Verified 12/19/19 15:48) hydrocodone Allergy (Verified 12/19/19 15:48) Penicillins Allergy (Verified 12/19/19 15:48) acetaminophen Adverse Reaction (Verified 12/19/19 15:48) ketorolac [From Toradol] Adverse Reaction (Verified 12/19/19 15:48) Nausea Past Medical History - General Information source: [facility], [facility] Records - Social History Smoking Status: Current Every Day Smoker Cigarette use (# per day): Yes Chew tobacco use (# tins/day): No Smoking Education Provided: No Frequency of alcohol use: Heavy Family History: Reviewed & Not Pertinent, CAD, COPD, Hypertension - Past Medical History Cardiac Medical History: Reports: Hx Congestive Heart Failure - Chronic systolic congestive heart failure with ejection fraction of 25%;, Hx Coronary Artery Disease, Hx Heart Attack, Hx Hypertension, Hx Peripheral Vascular Disease - Chronic venous stasis Pulmonary Medical History: Reports: Hx Asthma, Hx Bronchitis, Hx COPD, Hx Pneumonia, Hx Respiratory Failure Endocrine Medical History: Reports: Hx Hypothyroidism GI Medical History: Reports: Hx Cirrhosis - Alcoholic cirrhosis, Hx Hiatal Hernia Psychiatric Medical History: Reports: Hx Post Traumatic Stress Disorder Past Surgical History: Reports: Hx Abdominal Surgery, Hx Cholecystectomy, Hx Orthopedic Surgery - Left knee surgery, left wrist surgery - Immunizations Immunizations up to date: Yes Hx Diphtheria, Pertussis, Tetanus Vaccination: Yes Hx Pneumococcal Vaccination: 09/14/16 Review of Systems - Review of Systems Constitutional: No symptoms reported EENT: No symptoms reported Cardiovascular: No symptoms reported Respiratory: See HPI, Short of breath Gastrointestinal: See HPI, Other - Inguinal hernia pain Genitourinary: No symptoms reported Male Genitourinary: No symptoms reported Musculoskeletal: No symptoms reported Skin: No symptoms reported Hematologic/Lymphatic: No symptoms reported Neurological/Psychological: No symptoms reported -: Yes All other systems reviewed and negative Physical Exam - Vital signs Vitals: Resp 23 H 01/07/20 23:52 - General General appearance: Alert - HEENT Head: Normocephalic, Atraumatic Eyes: Normal Pupils: PERRL - Respiratory Respiratory status: No respiratory distress Chest status: Nontender Chest palpation: Normal - Cardiovascular Rhythm: Regular, Tachycardia Heart sounds: Normal auscultation Murmur: No Friction rub: No Gallop: None auscultated - Abdominal Inspection: Normal Distension: No distension Bowel sounds: Normal Tenderness: Nontender - Abdomen soft Organomegaly: No organomegaly - Genitourinary Notes: Hernia appreciated to left mons pubis region. Normal bowel sounds noted when hernia is auscultated. Hernia is tender to palpation - Back Back: Normal, Nontender - Extremities General upper extremity: Normal inspection General lower extremity: Normal inspection - Neurological Neuro grossly intact: Yes - Psychological Associated symptoms: Normal affect, Normal mood - Skin Skin Temperature: Warm Skin Moisture: Dry Skin Color: Normal Course - Re-evaluation Re-evalutation: 01/08/20 06:45 Results of ED MSE discussed with patient. All questions were answered. Emergency signs and symptoms, reasons to return to the emergency department discussed with patient. - Vital Signs Vital signs: Temp Pulse Resp BP Pulse Ox 98.4 F 131 H 29 H 92/51 L 100 01/08/20 00:30 01/08/20 00:30 01/08/20 04:00 01/08/20 02:01 01/08/20 01:01 - Laboratory Result Diagrams: 01/08/20 06:03 01/08/20 03:21 Laboratory results interpreted by me: 01/08/20 01/08/20 01/08/20 03:21 03:21 06:03 RBC 3.83 L Hgb 10.3 L Hct 30.8 L MCH 26.8 L RDW 19.4 H [place] % (Auto) 13.2 H Sodium 133.7 L Potassium 3.5 L Chloride 97 L Calcium 7.8 L Alkaline Phosphatase 132 H NT-Pro-B Natriuret Pep 54023 H Albumin 2.9 L - EKG Interpretation by Me Additional EKG results interpreted by me: 01/08/20 05:47 EKG obtained on 01/08/2020 at 0307 hrs. was interpreted by this MD. Findings: Sinus tachycardia, rate 107, normal axis, P waves proceed QRS complexes, QRS complexes appear narrow, there are no obvious patterns of ST segment elevation or depression present to suggest acute myocardial ischemia or infarction. Impression sinus tachycardia with nonspecific ST segments. Discharge - Discharge Clinical Impression: Dyspnea Qualifiers: Dyspnea type: unspecified Qualified Code(s): R06.00 - Dyspnea, unspecified Condition: Good Disposition: HOME, SELF-CARE Additional Instructions: HOME CARE INSTRUCTIONS & INFORMATION: Thank you for choosing us for your medical needs. We hope you're satisfied with the care you received. After you leave, you must properly care for your problem and, at the same time, observe i ts progress. Any condition can change. Some illnesses can change rapidly over hours or days. If your condition worsens, return to the Emergency Department or see your physician promptly. ABOUT YOUR X-RAYS AND EKG'S: If you had an EKG or X-rays taken, they have been read by the Emergency Physician. The X-rays and EKG's will also be read by a Radiologist or Freight Rate Specialist within 24 hours. If discrepancies are noted, you will be notified by telephone. Please be certain the ED has a correct telephone number & address where you can be reached. Also, realize that some fractures or abnormalities do not show up on initial X-rays. If your symptoms continue, see your physician. ABOUT YOUR LABORATORY TEST: If you had laboratory tests, the results have been reviewed by the Emergency Physician. Some test results (for example cultures) may not be available for several days. You will be contacted if any test result shows you need additional treatment. Please be certain the ED has a correct telephone number and address where you can be reached. ABOUT YOUR MEDICATIONS: You will receive instructions on how to take your medicine on the prescription label you receive. Additional information may be provided by the Pharmacy. If you have questions afterwards, call the ED for clarification or further instructions. Some prescribed medications may cause drowsiness. Do not perform tasks such as driving a car or operating machinery without consulting your Pharmacist. If you feel you need a refill of pain medication, your condition will need re-evaluation. Please do not call for a refill of any medication. ABOUT YOUR SIGNATURE: Signature of this document acknowledges to followin. Understanding that you received emergency treatment and that you may be released before al medical problems are known or treated. Please be certain the ED has a correct phone number & address where you can be reached. 2. Acknowledgement that you will arrange for follow-up care as recommended. 3. Authorization for the Emergency Physician to provide information to your follow-up Physician in order to maximize your care. AT ANY TIME, IF YOUR SYMPTOMS CHANGE SIGNIFICANTLY OR WORSEN OR YOU DEVELOP NEW SYMPTOMS, RETURN TO THE EMERGENCY DEPARTMENT IMMEDIATELY FOR RE-EVALUATION. OUR GOAL IS TO PROVIDE EXCELLENT MEDICAL CARE! WE HOPE THAT WE HAVE MET YOUR EXPECTATIONS DURING YOUR EMERGENCY DEPARTMENT VISIT AND THAT YOU FEEL YOU HAVE RECEIVED EXCELLENT CARE! Return to the Emergency Department without delay if any worse. Referrals: GENNY ZARCO MD [Primary Care Provider] - Follow up as needed I personally performed the services described in the documentation, reviewed and edited the documentation which was dictated to the scribe in my presence, and it accurately records my words and actions.
[2020-01-08 03:57] LABS: ALBUMIN 2.9 g/dL (3.5-5.0); ALCOHOL < 10 mg/dL (NONE DETECTED); ALKALINE PHOSPHATASE 132 U/L (38-126); ANION GAP 7 (5-19); ASPARTATE AMINO TRANSFERASE 36 U/L (17-59); BILIRUBIN,TOTAL 0.8 mg/dL (0.2-1.3); BLOOD UREA NITROGEN 15 mg/dL (7-20); CALCIUM 7.8 mg/dL (8.4-10.2); CARBON DIOXIDE 30 mmol/L (22-30); CHLORIDE 97 mmol/L (98-107); GLUCOSE 96 mg/dL (75-110); POTASSIUM 3.5 mmol/L (3.6-5.0); TOTAL PROTEIN 6.4 g/dL (6.3-8.2)
[2020-01-08] MEDS ORDERED: TRAMADOL HCL 50 MG TABLET PO ONE (05:46)
--- NOTE | 2020-01-08 05:51 | RADIOLOGY REPORT (SQ) ---
CHEST 1 VIEW on 01/08/2020 at 5:33 AM CLINICAL INDICATION: Shortness of breath COMPARISON: 01/02/2020 FINDINGS: Mild cardiomegaly is noted. Vascular calcification is noted in the aorta. Hilar and mediastinal contours are within normal limits. There is improved left lower lung opacity consistent with improving atelectasis and/or pneumonia. Trace left pleural effusion may be present. Hardware is noted in the left clavicle. IMPRESSION: Improving left lower lung atelectasis and/or pneumonia.
[2020-01-08 06:18] LABS: ABSOLUTE EOSINOPHILS # (AUTO) 0.3 10^3/uL (0.0-0.6); ABSOLUTE LYMPHOCYTES (AUTO) 1.4 10^3/uL (0.5-4.7); ABSOLUTE MONOCYTES (AUTO) 1.1 10^3/uL (0.1-1.4); ABSOLUTE NEUT (AUTO) 5.8 10^3/uL (1.7-8.2); BASOPHILS % (AUTO) 0.3 % (0-2); EOSINOPHILS % (AUTO) 3.3 % (0-6); HEMATOCRIT 30.8 % (37.9-51.0); HEMOGLOBIN 10.3 g/dL (13.5-17.0); MEAN CORPUSCULAR HEMOGLOBIN 26.8 pg (27.0-33.4); MEAN CORPUSCULAR HGB CONC 33.3 g/dL (32.0-36.0); MONOCYTES % (AUTO) 13.2 % (3-13); PLATELET COUNT 173 10^3/uL (150-450); RED BLOOD COUNT 3.83 10^6/uL (4.35-5.55); RED CELL DISTRIBUTION WIDTH 19.4 % (11.5-14.0); SEGMENTED NEUTROPHILS % (AUTO) 67.2 % (42-78); TOTAL CELLS COUNTED % (AUTO) 100 %; WHITE BLOOD COUNT 8.6 10^3/uL (4.0-10.5)
[2020-01-08 06:26] LABS: MEAN CORPUSCULAR VOLUME 80 fl (80-97)
[2020-01-08 07:34] VITALS: BP 119/82
--- NOTE | 2020-01-08 10:31 | EKG REPORT ---
SEVERITY:- ABNORMAL ECG - SINUS TACHYCARDIA NONSPECIFIC T ABNORMALITIES, LATERAL LEADS : Confirmed by: Mary Man 08-Jan-2020 10:30:47
== END 2020-01-08 08:08 | disposition home or self-care (01) ==
LOC: ER
DX: J44.9 Chronic obstructive pulmonary disease, unspecified (principal); I11.0 Hypertensive heart disease with heart failure; I50.22 Chronic systolic (congestive) heart failure; R06.02 Shortness of breath; R00.0 Tachycardia, unspecified; K40.90 Unilateral inguinal hernia, without obstruction or gangrene, not specified as recurrent; F17.210 Nicotine dependence, cigarettes, uncomplicated; Z87.01 Personal history of pneumonia (recurrent)
CPT/HCPCS: 36415; 71045; 80053; 80307; 83880; 84484; 85025; 93005; 93010; 99285

== ENCOUNTER 2020-01-12 09:59 | Inpatient (IN) | payer OTHER, MEDICARE ==
--- NOTE | 2020-01-12 10:27 | ER Document Report ---
ED General - General Chief Complaint: Leg Swelling Stated Complaint: LEG SWELLING Time Seen by Provider: 01/12/20 10:23 Primary Care Provider: GENNY ZARCO MD [Primary Care Provider] - Follow up as needed Mode of Arrival: Wheelchair Information source: Patient, [facility] Records Notes: Patient is a 69-year-old male presenting to the emergency department chief compl aint of bilateral lower extremity swelling. Patient was here for a stress test for medical clearance for right-sided inguinal hernia surgery. Patient states that he was short of breath and they identified the fluid retention to lower extremities and sent the patient to the emergency department for further evaluation and treatment. Patient states that this episode of his leg swelling started about 2 days ago. Patient denies travel history trauma history or any sick contacts. Patient denies fever. Patient does have shortness of breath but this is his norm because of his CHF and COPD. Patient continues to smoke cigarettes. TRAVEL OUTSIDE OF THE [place] IN LAST 30 DAYS: No - HPI Onset: Other - two days Onset/Duration: Gradual, Worse Quality of pain: Fullness, Pressure Severity: Moderate Pain Level: 3 Associated symptoms: Nonproductive cough, Shortness of breath Exacerbated by: Supine, Standing, Movement, Walking, Coughing, Deep breathing Relieved by: Denies Similar symptoms previously: Yes Recently seen / treated by doctor: Yes - Related Data Allergies/Adverse Reactions: vancomycin Allergy (Unknown, Verified 01/12/20 10:20) azithromycin Allergy (Verified 01/12/20 10:20) hydrocodone Allergy (Verified 01/12/20 10:20) Penicillins Allergy (Verified 01/12/20 10:20) acetaminophen Adverse Reaction (Verified 01/12/20 10:20) ketorolac [From Toradol] Adverse Reaction (Verified 01/12/20 10:20) Nausea Past Medical History - General Information source: Patient, [facility] Records - Social History Smoking Status: Current Every Day Smoker Cigarette use (# per day): Yes Chew tobacco use (# tins/day): No Smoking Education Provided: Yes Frequency of alcohol use: None Drug Abuse: None Family History: Reviewed & Not Pertinent, CAD, COPD, Hypertension Patient has suicidal ideation: No Patient has homicidal ideation: No - Past Medical History Cardiac Medical History: Reports: Hx Congestive Heart Failure - Chronic systolic congestive heart failure with ejection fraction of 25%;, Hx Coronary Artery Disease, Hx Heart Attack, Hx Hypertension, Hx Peripheral Vascular Disease - Chronic venous stasis Denies: Hx Atrial Fibrillation, Hx DVT, Hx Hypercholesterolemia, Hx Pulmonary Embolism Pulmonary Medical History: Reports: Hx Asthma, Hx Bronchitis, Hx COPD, Hx Pneumonia, Hx Respiratory Failure Neurological Medical History: Denies: Hx Seizures Endocrine Medical History: Reports: Hx Hypothyroidism. Denies: Hx Diabetes Mellitus Type 1, Hx Diabetes Mellitus Type 2, Hx Hyperthyroidism GI Medical History: Reports: Hx Cirrhosis - Alcoholic cirrhosis, Hx Hiatal Hernia. Denies: Hx Crohn's Disease, Hx Hepatitis, Hx Ulcerative Colitis Musculoskeletal Medical History: Denies Hx Arthritis, Denies Hx Gout Skin Medical History: Denies Hx Eczema, Denies Hx Psoriasis Psychiatric Medical History: Reports: Hx Post Traumatic Stress Disorder Denies: Hx Depression Infectious Medical History: Denies: Hx Hepatitis Past Surgical History: Reports: Hx Abdominal Surgery, Hx Cholecystectomy, Hx Orthopedic Surgery - Left knee surgery, left wrist surgery, Other - Gallbladder - Immunizations Immunizations up to date: Yes Hx Diphtheria, Pertussis, Tetanus Vaccination: Yes Hx Pneumococcal Vaccination: 09/14/16 Review of Systems - Review of Systems Notes: REVIEW OF SYSTEMS: CONSTITUTIONAL : Denies fever, chills, or sweats. Denies recent illness. EENT: Denies eye, ear, throat, or mouth pain or symptoms. Denies nasal or sinus congestion. CARDIOVASCULAR: Denies chest pain. RESPIRATORY: Per HPI GASTROINTESTINAL: Denies nausea, vomiting, or diarrhea. Denies constipation. Per HPI GENITOURINARY: Denies difficulty urinating, painful urination, burning, frequency, or blood in urine. MUSCULOSKELETAL: Per HPI SKIN: Denies rash or skin lesions. HEMATOLOGIC : Denies easy bruising or bleeding. NEUROLOGICAL: Denies altered mental status or loss of consciousness. Denies headache. Denies weakness or paralysis or loss of use of either side. Denies problems with gait or speech. Denies sensory or motor loss. PSYCHIATRIC: Denies suicidal or homicidal ideations 10 Systems are negative unless otherwise specified above Physical Exam - Vital signs Vitals: Resp 15 01/12/20 10:16 - Notes Notes: PHYSICAL EXAMINATION: GENERAL: Patient is a 69-year-old male presenting to the emergency department in obvious moderate discomfort/distress secondary to right-sided groin pain leg swelling pain and shortness of breath. HEAD: Atraumatic, normocephalic. EYES: Pupils equal round and reactive to light, extraocular movements intact, sclera anicteric, conjunctiva are normal. ENT: nares patent, oropharynx clear without exudates. Moist mucous membranes. NECK: Normal range of motion, supple without lymphadenopathy, no appreciable JVD LUNGS: Crackles to the bases poor inspiratory expiratory effort also inspiratory expiratory wheezes HEART: Tachycardic rate ABDOMEN: Soft, tender diffusely and more specifically to the right groin region, normal bowel sounds. No guarding, no rebound. No masses appreciated. EXTREMITIES: Upper extremities full range of motion lower extremities 2-3+ pitting edema to the knees NEUROLOGICAL: No focal neurological deficits. Moves all extremities spontaneously and on command. SKIN: Warm, Dry, and intact. Normal turgor, no rashes or lesions noted. Course - Re-evaluation Re-evalutation: 01/12/20 11:00 I was able to speak to the patient's building services coordinator Dr. Zarco who has stated that he wants the patient to have a central line placed and I have spoken with the patient he is agreeable with this care plan. 01/12/20 12:11 Patient has been maintained on a radiation monitor while in emergency department. Patient has remained stable. Patient tolerated central line procedure without difficulty. Currently waiting on lab results and will subsequently admit the patient to the hospitalist. Patient has been found to have a left lower lobe pneumonia. Patient has been started on Levaquin 750 mg IV blood cultures have been drawn. Patient has received DuoNeb breathing treatment while in the emergency department. 01/12/20 12:22 Spoken with hospitalist general operations agent they are agreeable with admission of the patient they had already spoken to building services coordinator general operations agent in regards to this patient. Patient has remained stable at this time. 01/12/20 12:25 Patient is still complaining of right groin pain and will recieve 1mg of Morphine IV. - Vital Signs Vital signs: Temp Pulse Resp BP Pulse Ox 97.7 F 19 106/71 100 01/12/20 10:45 01/12/20 12:01 01/12/20 12:01 01/12/20 12:21 - Laboratory Result Diagrams: 01/12/20 11:34 01/12/20 11:34 Laboratory results interpreted by me: 01/12/20 01/12/20 01/12/20 11:34 11:34 11:34 RBC 3.30 L Hgb 8.7 L Hct 25.9 L MCV 79 L MCH 26.3 L RDW 19.1 H Lymph % (Auto) 10.1 L Seg Neutrophils % 79.5 H PT 18.1 H Sodium 134.4 L Potassium 3.2 L Chloride 97 L Carbon Dioxide 32 H BUN 21 H Calcium 7.5 L Alkaline Phosphatase 129 H Albumin 2.8 L Lipase 16.5 L - Diagnostic Test Radiology reviewed: Image reviewed, Reports reviewed - EKG Interpretation by Me EKG shows normal: Sinus rhythm Rate: Tachycardia Rhythm: PVC's When compared to previous EKG there are: No significant change Procedures - Central Line Right Internal jugular Time completed: 11:41 Consent obtained: Yes Central line pre-insertion: Sterile PPE donned, Chloraprep applied, Sterile drapes applied Central line size (Fr.): 7 Central line lumen type: Triple Anesthetic type: 1% Lidocaine mL's of anesthesia: 3 Ultrasound guided: Yes Line secured with sutures: Yes Central line post-insertion: Blood return from lumens, Biopatch applied, Sutured, Sterile dressing applied, Position confirmed w/ CXR Number of attempts: 1 Complications: No Discharge - Discharge Clinical Impression: Dependence on supplemental oxygen Community acquired pneumonia Qualifiers: Laterality: left Lung location: lower lobe of lung Qualified Code(s): J18.9 - Pneumonia, unspecified organism COPD (chronic obstructive pulmonary disease) Qualifiers: COPD type: COPD with acute exacerbation Qualified Code(s): J44.1 - Chronic obstructive pulmonary disease with (acute) exacerbation Cirrhosis of liver Qualifiers: Hepatic cirrhosis type: unspecified hepatic cirrhosis Ascites presence: without ascites Qualified Code(s): K74.60 - Unspecified cirrhosis of liver CHF exacerbation Qualifiers: Heart failure type: unspecified Qualified Code(s): I50.9 - Heart failure, unspecified Condition: Fair Disposition: ADMITTED INPATIENT Admitting Provider: Bety (Hospitalist) Unit Admitted: IMCU Referrals: GENNY ZARCO MD [Primary Care Provider] - Follow up as needed
[2020-01-12] MEDS ORDERED: IPRATROPIUM/ALBUTEROL 0.5-2.5 MG/3 ML AMPUL NEB ONE (10:29)
--- NOTE | 2020-01-12 11:17 | RADIOLOGY REPORT (SQ) ---
EXAM DESCRIPTION: CHEST SINGLE VIEW IMAGES COMPLETED DATE/TIME: 01/12/2020 10:49 am REASON FOR STUDY: sob COMPARISON: 01/08/2020 NUMBER OF VIEWS: One view. TECHNIQUE: Single frontal radiographic image of the chest acquired. LIMITATIONS: None. FINDINGS: LUNGS AND PLEURA: Left lower lobe airspace disease not significantly changed. The right l funmi is clear. MEDIASTINUM AND HEART: Stable heart size and mediastinal structures. BONY STRUCTURES: No acute findings. HARDWARE: None. OTHER: No other significant finding. IMPRESSION: Left lower lobe pneumonia. No significant change. TECHNICAL DOCUMENTATION: JOB ID: [id number] Reading location - IP/workstation name: [email or web address]
[2020-01-12 11:52] LABS: ABSOLUTE BASOPHILS # (AUTO) 0.1 10^3/uL (0.0-0.2); ABSOLUTE EOSINOPHILS # (AUTO) 0.2 10^3/uL (0.0-0.6); ABSOLUTE MONOCYTES (AUTO) 0.7 10^3/uL (0.1-1.4); ABSOLUTE NEUT (AUTO) 7.8 10^3/uL (1.7-8.2); BASOPHILS % (AUTO) 0.8 % (0-2); EOSINOPHILS % (AUTO) 2.4 % (0-6); HEMATOCRIT 25.9 % (37.9-51.0); HEMOGLOBIN 8.7 g/dL (13.5-17.0); LYMPHOCYTES % (AUTO) 10.1 % (13-45); MEAN CORPUSCULAR HEMOGLOBIN 26.3 pg (27.0-33.4); MEAN CORPUSCULAR HGB CONC 33.4 g/dL (32.0-36.0); MEAN CORPUSCULAR VOLUME 79 fl (80-97); MONOCYTES % (AUTO) 7.2 % (3-13); PLATELET COUNT 183 10^3/uL (150-450); RED CELL DISTRIBUTION WIDTH 19.1 % (11.5-14.0); SEGMENTED NEUTROPHILS % (AUTO) 79.5 % (42-78); TOTAL CELLS COUNTED % (AUTO) 100 %; WHITE BLOOD COUNT 9.8 10^3/uL (4.0-10.5)
[2020-01-12 11:58] LABS: INTERNATIONAL RATION (INR) 1.48; PROTHROMBIN TIME 18.1 SEC (11.4-15.4)
[2020-01-12 11:59] LABS: PARTIAL THROMBOPLASTIN TIME 33.2 SEC (23.5-35.8)
[2020-01-12] MEDS ORDERED: LEVOFLOXACIN 750 MG/D5W RTU 750 MG/150 ML RTUPB IV SCH (12:00)
[2020-01-12 12:17] LABS: ALBUMIN 2.8 g/dL (3.5-5.0); ALKALINE PHOSPHATASE 129 U/L (38-126); ANION GAP 5 (5-19); ASPARTATE AMINO TRANSFERASE 44 U/L (17-59); BILIRUBIN,TOTAL 0.6 mg/dL (0.2-1.3); BLOOD UREA NITROGEN 21 mg/dL (7-20); CALCIUM 7.5 mg/dL (8.4-10.2); CARBON DIOXIDE 32 mmol/L (22-30); CHLORIDE 97 mmol/L (98-107); GLUCOSE 108 mg/dL (75-110); POTASSIUM 3.2 mmol/L (3.6-5.0); TOTAL PROTEIN 6.3 g/dL (6.3-8.2)
[2020-01-12] MEDS ORDERED: MORPHINE SULFATE 10 MG/ML INJ IV ONE (12:24)
[2020-01-12 12:29] LABS: CREATINE KINASE MB 2.08 ng/mL (<4.55)
[2020-01-12 12:32] LABS: TROPONIN I 0.04 ng/mL
--- NOTE | 2020-01-12 12:32 | RADIOLOGY REPORT (SQ) ---
EXAM DESCRIPTION: CHEST SINGLE VIEW IMAGES COMPLETED DATE/TIME: 01/12/2020 11:58 am REASON FOR STUDY: R central line placement COMPARISON: 01/12/2020 at 1049 hours. EXAM PARAMETERS: NUMBER OF VIEWS: One view. TECHNIQUE: Single frontal radiographic view of the chest acquired. RADIATION DOSE: NA LIMITATIONS: None. FINDINGS: LUNGS AND PLEURA: Faint density in the left lung base, unchanged. No pneumothorax. MEDIASTINUM AND HILAR STRUCTURES: No masses. Contour normal. HEART AND VASCULAR STRUCTURES: Heart normal in size. Normal vasculature. BONES: No acute findings. HARDWARE: Central line on the right side. Tip at the level of the right atrium. OTHER: No other significant finding. IMPRESSION: NO PNEUMOTHORAX FOLLOWING CENTRAL LINE PLACEMENT. TECHNICAL DOCUMENTATION: JOB ID: [id number] 2010 [email or web address]- All Rights Reserved Reading location - IP/workstation name: [email or web address]
[2020-01-12] MEDS ORDERED: FUROSEMIDE INJ/PF 20 MG/2 ML SDV IV ONE (12:33)
[2020-01-12] MEDS ORDERED: MAGNESIUM HYDROXIDE SUSP 30 ML UDCUP PO PRN (13:16)
[2020-01-12] MEDS ORDERED: MAG HYDROX/AL HYDROX/SIMETH SUSP 30 ML UDCUP PO PRN (13:16)
[2020-01-12 13:17] LABS: VENOUS BLOOD BASE EXCESS 5.4 mmol/L; VENOUS BLOOD HCO3 30.6 mmol/L (20-32); VENOUS BLOOD PH 7.41 (7.30-7.42)
--- NOTE | 2020-01-12 13:38 | PDOC H&P ---
History of Present Illness Admission Date/PCP: 01/12/20 12:36 GENNY ZARCO MD Patient complains of: Increase shortness of breath and increased lower extremity swelling History of Present Illness: DURAN TELLES is a 69 year old male with severe left ventricular dysfunction. Echocardiogram last month revealed an EF of only 20%. He was just discharged from [facility] December 10 after being on dobutamine and dopamine and he is back already. He presented for a stress test for preoperative evaluation to surgically address the right inguinal hernia but when Dr. Comer saw him in the stress test lab he sent him to the emergency department. He states that he has never really felt much better than when he discharged from the hospital and in fact over the last several days he began noticing lower extremity edema. He states that he did not change his medications at all. There is a history of poor compliance, ongoing tobacco use and a history of alcohol dependence. He also has chronic anemia which could be affecting his cardiac status. At the time of this presentation his blood pressure was borderline low. It is necessary to hold some of his antihypertensive medications because of this. Dr. Zarco did contact me and we discussed the plan of dobutamine infusion after admission. On the admission evaluation his albumin, potassium and sodium were low. His hemoglobin is lower than usual. It was only 8.6 and this could be adversely affecting his cardiac function. His brain natruretic peptide was 11,900 and this is up from the 4900 the time of discharge last month. He will be admitted to [facility]. A central line was placed in the emergency department. He is starting dobutamine infusion and will be seen by Dr. Zarco as well. Past Medical History Cardiac Medical History: Reports: Congestive Heart Failure - Chronic systolic congestive heart failure with ejection fraction of 25%;, Coronary Artery Disease, Myocardial Infarction, Hypertension, Peripheral Vascular Disease - Chronic venous stasis Denies: Atrial Fibrillation, DVT, Hyperlipidema, Pulmonary Embolism Pulmonary Medical History: Reports: Asthma, Bronchitis, Chronic Obstructive Pulmonary Disease (COPD), Pneumonia, Respiratory Failure Neurological Medical History: Denies: Seizures Endocrine Medical History: Reports: Hypothyroidism Denies: Diabetes Mellitus Type 1, Diabetes Mellitus Type 2, Hyperthyroidism GI Medical History: Reports: Cirrhosis - Alcoholic cirrhosis, Hiatal Hernia Denies: Crohn's Disease, Hepatitis, Ulcerative Colitis Musculoskeltal Medical History: Denies: Arthritis, Gout Skin Medical History: Denies: Eczema, Psoriasis Psychiatric Medical History: Reports: Post Traumatic Stress Disorder Denies: Depression Hematology: Reports: Anemia - Chronic Denies: Bleeding Tendencies Past Surgical History Past Surgical History: Reports: Cholecystectomy, Orthopedic Surgery - Left knee surgery, left wrist surgery, Other - Gallbladder Social History Information Source: Patient, [facility] Records Lives with: Alone Smoking Status: Current Every Day Smoker Electronic Cigarette use?: No Frequency of Alcohol Use: Heavy Hx Recreational Drug Use: No Drugs: None Hx Prescription Drug Abuse: No - Advance Directive Resuscitation Status: Full Code Surrogate healthcare decision maker:: Daughter Angelika Sheets is listed as the person to notify Family History Family History: CAD, COPD, Hypertension, Malignancy Parental Family History Reviewed: Yes Children Family History Reviewed: Yes Sibling(s) Family History Reviewed.: Yes Medication/Allergy Home Medications: Folic Acid [Folvite 1 mg Tablet] 1 mg PO DAILY 10/16/19 Gabapentin [Neurontin 300 mg Capsule] 1,200 mg PO Q8 10/16/19 Ketoconazole 1 applic TOP TIDP PRN 10/16/19 Cyanocobalamin (Vitamin B-12) [Vitamin B-12 Inj 1000 Mcg/1 ml Vial] 1,000 mcg IM .MONTHLY 12/01/19 Simvastatin [Zocor 40 mg Tablet] 40 mg PO QHS 12/01/19 Albuterol Sulfate [Ventolin Hfa 8 gm Mdi (1 Mdi/ER Disp)] 2 puff IH Q6HP PRN #1 inhaler 12/11/19 Lisinopril [Prinivil 5 mg Tablet] 2.5 mg PO DAILY #30 tablet 12/11/19 Furosemide [Lasix 20 mg Tablet] 20 mg PO DAILY 30 Days #30 tablet 01/02/20 Budesonide/Formoterol Fumarate [Symbicort HFA 160-4.5 mcg Inhaler 6 gm] 2 puff IH Q12 01/12/20 Metoprolol Succinate [Toprol Xl 25 mg Tab.sr] 12.5 mg PO Q12 01/12/20 Tramadol HCl [Ultram] 100 mg PO Q8HP PRN 01/12/20 Allergies/Adverse Reactions: vancomycin Allergy (Unknown, Verified 01/12/20 10:20) azithromycin Allergy (Verified 01/12/20 10:20) hydrocodone Allergy (Verified 01/12/20 10:20) Penicillins Allergy (Verified 01/12/20 10:20) acetaminophen Adverse Reaction (Verified 01/12/20 10:20) ketorolac [From Toradol] Adverse Reaction (Verified 01/12/20 10:20) Nausea Review of Systems All systems: reviewed and no additional remarkable complaints except as stated Constitutional: PRESENT: anorexia, fatigue, weight gain Cardiovascular: PRESENT: dyspnea on exertion, edema Respiratory: PRESENT: cough, dyspnea Gastrointestinal: PRESENT: abdominal pain Integumentary: PRESENT: other - Dry skin Physical Exam Vital Signs: Temp Pulse Resp BP Pulse Ox 97.7 F 24 H 99/56 L 100 01/12/20 10:45 01/12/20 13:03 01/12/20 13:03 01/12/20 13:03 Intake & Output 01/11/20 01/12/20 01/13/20 06:59 06:59 06:59 Weight 69.6 kg General appearance: PRESENT: other - Well-developed 69-year-old male patient in moderate distress. Resting in bed with nasal cannula in place. Head exam: PRESENT: atraumatic, normocephalic Eye exam: PRESENT: conjunctiva pale, EOMI. ABSENT: scleral icterus Ear exam: PRESENT: normal external ear exam. ABSENT: bleeding, drainage Mouth exam: PRESENT: moist, tongue midline Teeth exam: ABSENT: poor dentation Neck exam: PRESENT: JVD. ABSENT: carotid bruit, lymphadenopathy Respiratory exam: PRESENT: decreased breath sounds - Due to shallow inspiration, rales - Faint rales at bases. ABSENT: accessory muscle use Cardiovascular exam: PRESENT: +S1, +S2, tachycardia. ABSENT: bradycardia, diastolic murmur, irregular rhythm, systolic murmur GI/Abdominal exam: PRESENT: normal bowel sounds, soft. ABSENT: distended, guarding, tenderness Rectal exam: PRESENT: deferred Gentrourinary exam: PRESENT: indwelling catheter Extremities exam: PRESENT: pedal edema, +2 edema - 2-3+ edema bilaterally. ABSENT: joint swelling Musculoskeletal exam: PRESENT: ambulatory - Difficult to ambulate due to breathing issues and edema. ABSENT: normal inspection Neurological exam: PRESENT: alert, awake, oriented to person, oriented to place, oriented to time, oriented to situation, CN II-XII grossly intact. ABSENT: altered, motor sensory deficit Psychiatric exam: PRESENT: flat affect. ABSENT: agitated, anxious Focused psych exam: ABSENT: delusional, paranoid, restlessness Skin exam: PRESENT: dry, pallor, warm Results Laboratory Results: 01/12/20 11:34 01/12/20 11:34 01/12/20 01/12/20 01/12/20 11:34 11:34 12:33 WBC 9.8 RBC 3.30 L Hgb 8.7 L Hct 25.9 L MCV 79 L MCH 26.3 L MCHC 33.4 RDW 19.1 H Plt Count 183 Seg Neutrophils % 79.5 H VBG pH Cancelled VBG pCO2 Cancelled VBG HCO3 Cancelled VBG Base Excess Cancelled Sodium 134.4 L Potassium 3.2 L Chloride 97 L Carbon Dioxide 32 H Anion Gap 5 BUN 21 H Creatinine 0.75 Est GFR ( Amer) > 60 Glucose 108 Calcium 7.5 L Total Bilirubin 0.6 AST 44 Alkaline Phosphatase 129 H Total Protein 6.3 Albumin 2.8 L Lipase 16.5 L 01/12/20 13:07 WBC RBC Hgb Hct MCV MCH MCHC RDW Plt Count Seg Neutrophils % VBG pH 7.41 VBG pCO2 49.0 VBG HCO3 30.6 VBG Base Excess 5.4 Sodium Potassium Chloride Carbon Dioxide Anion Gap BUN Creatinine Est GFR ( Amer) Glucose Calcium Total Bilirubin AST Alkaline Phosphatase Total Protein Albumin Lipase 01/12/20 11:34 CK-MB (CK-2) 2.08 Troponin I 0.040 NT-Pro-B Natriuret Pep 41143 H Impressions: Chest X-Ray 01/12/20 11:41 IMPRESSION: NO PNEUMOTHORAX FOLLOWING CENTRAL LINE PLACEMENT. Assessment and Plan - Diagnosis (1) Acute on chronic combined systolic and diastolic congestive heart failure Is this a current diagnosis for this admission?: Yes Plan: 01/12/20 The patient was just discharged on December 10 from [facility]. At that time he presented with the same diagnosis of acute on chronic heart failure. He did require dobutamine and dopamine. He states that his breathing difficulties never significantly improved from his discharge and he noticed increased swelling of his legs. He had an echocardiogram last month that showed an ejection fraction of 20% with grade 1/4 diastolic failure and moderate pulmonary hypertension. He presented for a preoperative stress test today but when he arrived Dr. Zarco evaluated him and deemed him not only inappropriate for the stress test but requiring admission. After discussion with Dr. Zarco the patient was placed on dobutamine infusion. We will resume his other cardiac medications when his blood pressure will tolerate. He is getting oxygen supplementation. (2) Left lower lobe pneumonia Qualifiers: Pneumonia type: due to unspecified organism Qualified Code(s): J18.9 - Pneumonia, unspecified organism Is this a current diagnosis for this admission?: Yes Plan: 01/12/2020 The patient will continue a course of levofloxacin for possible pneumonia. He was just ending hospital a month ago. He does not have an elevated white blood cell count but that does not necessarily rule out an infectious process. It is very possible for him to have 2 pulmonary etiologies at once. We will continue to monitor closely, continue antibiotics and provide symptom support. (3) Hypotension Qualifiers: Hypotension type: other hypotension type Qualified Code(s): I95.89 - Other hypotension Is this a current diagnosis for this admission?: Yes Plan: 01/12/2020 His hypotension is cardiogenic. He is hovering with his systolic blood pressure mostly in the 90s. IV dobutamine will be started which will help his cardiac output and his blood pressure. (4) Hypokalemia Is this a current diagnosis for this admission?: Yes Plan: 01/12/2020 I will initiate oral potassium supplementation. We will monitor his labs closely. Diuresis will be dose adjusted based on his intake and output as well as his clinical presentation. (5) Hyponatremia Is this a current diagnosis for this admission?: Yes Plan: 01/12/2020 The hyponatremia is most likely due to his chronic cardiac issues. We will monitor the sodium levels. (6) Macrocytic anemia Is this a current diagnosis for this admission?: Yes Plan: 01/12/2020 Possibly related to his history of alcohol use. He does utilize vitamin B12 and folic acid at home. I will institute daily doses of both. (7) COPD (chronic obstructive pulmonary disease) Qualifiers: COPD type: unspecified COPD Qualified Code(s): J44.9 - Chronic obstructive pulmonary disease, unspecified Is this a current diagnosis for this admission?: Yes Plan: 01/12/2020 The patient has 2 pulmonary processes (heart failure and pneumonia) not counting the COPD. We will continue his inhaler regimen but at this time I have not ordered systemic steroids. As needed nebulizers will be available also. (8) Hernia, inguinal, right Is this a current diagnosis for this admission?: Yes Plan: [birth year]/11/1930 The patient was in the middle of a preop evaluation to get his inguinal hernia repaired. Because of his cardiac status this will be delayed. We will consult surgery if clinically required. (9) Abdominal pain Qualifiers: Abdominal location: generalized Qualified Code(s): R10.84 - Generalized abdominal pain Is this a current diagnosis for this admission?: Yes Plan: 01/12/2020 Secondary to his hernia. Symptomatic treatment at this time. - Plan Summary Summary: 01/12/2020 The patient has diabetes listed on his problem list however his last 2 hemoglobin A1c's were both below 5.0. In addition he has hypothyroidism listed. His TSH and free T4 were both normal and his free T3 was found to be below the lower limit normal however he is not on any thyroid replacement at this time. I will discuss with cardiology and consider - Time Time Spent with patient: 35 or more minutes Medications reviewed and adjusted accordingly: Yes - Inpatient Certification Based on my medical assessment, after consideration of the patient's comorbidities, presenting symptoms, or acuity I expect that the services needed warrant INPATIENT care.: Yes I certify that my determination is in accordance with my understanding of Medicare's requirements for reasonable and necessary INPATIENT services [42 CFR 412.3e].: Yes Medical Necessity: Failure to Improve With Outpatient Therapy, Need Close Monitoring Due to Risk of Patient Decompensation, Need For Continuous Telemetry Monitoring, Need for Pain Control, Need for IV Antibiotics Post Hospital Care: D/C Pediatric Genetic Counselor Documentation
[2020-01-12] MEDS: DOBUTAMINE HCL/D5W 500 MG/250 ML RTUINJ IV PRN (13:54)
[2020-01-12 14:23] LABS: APPEARANCE,URINE CLEAR; BILIRUBIN,URINE NEGATIVE (NEGATIVE); COLOR,URINE DARK YELLOW; GLUCOSE, URINE NEGATIVE (NEGATIVE); KETONES,URINE NEGATIVE (NEGATIVE); LEUKOCYTE ESTERASE,URINE NEGATIVE (NEGATIVE); NITRITE,URINE NEGATIVE (NEGATIVE); PROTEIN,URINE 30 mg/dL (NEGATIVE); URINE SPECIFIC GRAVITY 1.025
[2020-01-12] MEDS: GABAPENTIN 400 MG CAPSULE PO SCH (14:41)
[2020-01-12] MEDS: HEPARIN SOD (PORCINE) 5,000 UNIT/ML 1 ML VIAL SUBCUT SCH ×2 (14:41→23:06)
[2020-01-12] MEDS ORDERED: POTASSIUM CHLORIDE 10 MEQ TABLET.ER PO ONE (15:00)
--- NOTE | 2020-01-12 15:52 | ADVANCED CARE ---
- Diagnosis (1) Acute on chronic combined systolic and diastolic congestive heart failure Diagnosis Current: Yes (2) Left lower lobe pneumonia Diagnosis Current: Yes (3) Hypotension Diagnosis Current: Yes (4) Hypokalemia Diagnosis Current: Yes (5) Hyponatremia Diagnosis Current: Yes (6) Macrocytic anemia Diagnosis Current: Yes (7) COPD (chronic obstructive pulmonary disease) Diagnosis Current: Yes (8) Hernia, inguinal, right Diagnosis Current: Yes (9) Abdominal pain Diagnosis Current: Yes Attendance: Discussion held at the bedside with the patient Resuscitation Status: Full Code Discussion: The patient was just in the hospital in November. He exhibits very little insight into his illness. He continues to smoke and drink. His answer of "do everything he can to keep me alive. I want to stay here until God takes me "gave me a sense of his unrealistic expectations. He exhibited no interest in discussing his condition further at this time. This will be a topic I will revisit with the patient especially considering his poor prognosis. Care Planning Goals: We will continue to try to educate the patient regarding realistic expectations Document(s) Completed: None Time Spent: 17-minute
--- NOTE | 2020-01-12 17:32 | PDOC CONSULTATION ---
Consultation-Blank Consultation: CARDIOLOGY CONSULTATION by Dr. Lorenza Sandoval. Patient seen at 9 AM in the stress lab, on 01/12/2020. In view of the patient's decompensated biventricular heart failure the patient did not have IV stress Cardiolite the patient was sent to the ER for admission for further treatment. Patient to be admitted under the hospitalist. CONSULT REQUESTING PHYSICIAN: : [facility] hospitalist physician group. 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 HISTORY of PRESENT ILLNESS: Patient is a 69-year-old male with known history of significant COPD who continues to smoke, history of alcohol abuse, history of coronary artery disease with prior history of WA and history of ischemic cardiomyopathy mixed with dilated cardiomyopathy, and medication and noncompliance finally came in for IV Lexiscan Cardiolite stress test. This is in preparation to see if he has an ischemic burden that needs to be corrected prior to being referred for an AICD. The patient also supposed to have a repeat echo. But when he came in to the stress lab when I examined him the patient was in biventricular failure. The patient states he has been having cough since the past 3 to 4 days and is productive of greenish sputum. There is no fever there is intermittent wheezing. He also has been having shortness of breath and increasing leg swelling. He denies any chest pain or discomfort. There is no palpitations or syncope. Of note the patient is highly noncompliant with medications and medical advice and also keeping up his appointments. The patient after 4 failed attempts today was the first time he came for a stress test, which unfortunately could not be done. Due to the patient's decompensated right and left heart failure which is acute on chronic. PAST MEDICAL HISTORY: Is positive for COPD. He states about 13 years ago he had a double pneumonia and had a myocardial infarction. He states he did not have a cardiac catheterization. 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 He also has a history of alcohol intake as per the records, although the patient states that he quit smoking or drinking many years ago. He does have a history of cirrhosis of the liver. He also has a history of hypertension and hyper lipidemia. He also has a prior history of morbid obesity, for which she had gastric bypass surgery. At present the patient appears malnourished and cachectic. There is no history of TIA CVA. Patient denies any chronic kidney disease. Past SURGICAL HISTORY: Is Positive for Gastric Bypass Surgery Remotely. Cardiac catheterization. ALLERGIES: The patient is allergic to azithromycin, ketorolac, and penicillins. SOCIAL HISTORY: The patient is a smoker, and does have a history of alcohol abuse. RESUSCITATION STATUS: The patient is a full code. The patient's daughter is the patient's surrogate healthcare decision maker. FAMILY HISTORY: Is positive for CAD, COPD and hypertension. REVIEW OF SYSTEMS HEAD: Denies headache or head injury. EYES: No history of amblyopia diplopia. No history of amaurosis fugax. EARS: No history of hearing loss. No tinnitus. NOSE: No history of nosebleeds. No nasal polyps. MOUTH: No altered taste sensation, and no bleeding from the gums. THROAT: No history of odynophagia or dysphagia. No history of recurrent sore throats. SKIN: No history of psoriasis. No history of pruritus. No history of yellowish discoloration of the skin. NECK: Denies neck pain or swelling in the neck. LUNGS: Patient with acute exacerbation of COPD. Chest x-ray also shows bibasilar small pneumonias. He has no history of sleep apnea. The patient is a smoker. There is no hemoptysis. He has a productive cough with yellowish sputum. The onset was about 2 days ago, although the patient is not very helpful in defining the exact timeframe. He has no history of sleep apnea. No history of pulmonary embolism. HEART: Remote history of WA. No cardiac work- up. 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 His LV ejection fraction is severely reduced. He has symptoms of heart failure with with PND orthopnea leg edema., But no anginal symptoms. There is no syncope. His blood pressure is on the lower side due to most likely poor cardiac output. ENDOCRINE: Denies diabetes or thyroid disease. No polydipsia polyuria. No history of heat or cold intolerance. RENAL: Denies history of chronic kidney disease. No hematuria pyuria or dysuria. No symptoms a UTI. MUSCULOSKELETAL skeletal: Denies arthritis or collagen vascular disease. GI: History of cirrhosis present no history of jaundice. No history of fatty food intolerance. No history of GI bleed. He has had several visits to the emergency room due to right groin pain. He had a right inguinal hernia which was reduced by surgical list. No history of GERD or peptic ulcer disease. No altered bowel movements. Appetite is decreased. He does have some weight loss, although is not very helpful in telling exactly how much weight he is lost over a period of time. 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 No history of headaches migraines or seizures. PSYCHIATRIC: Patient has history of alcohol and tobacco dependency. There is no history of anxiety or depression. No history of suicidal ideation. VASCULAR: No history of calf or buttock claudication.. No history of DVT HEMATOLOGICAL: No history of bleeding diathesis or clotting disorders. Metabolic: No history of gout. Prior history of morbid obesity and the patient has lost weight and appears to be cachectic and chronically ill looking at present. He has a history of hyperlipidemia, and is on Zocor at home. Current Medications Al Hydrox/Mg Hydrox/Simethicone (Maalox Plus Susp 30 Udcup) 30 ml PO Q4HP PRN PRN Reason: HEARTBURN Stop: 02/11/20 13:15 Albuterol/Ipratropium (Duoneb 3 Ml Ampul) 3 ml NEB RTQ6HP PRN PRN Reason: SHORTNESS OF BREATH Stop: 02/11/20 13:31 Fluticasone/Vilanterol (Breo 200-25 Mcg Ellipta 14 Dose/Dpi) 1 inh IH DAILY RODNEY Stop: 02/12/20 09:59 Folic Acid (Folvite 1 Mg Tablet) 1 mg PO DAILY RODNEY Stop: 02/12/20 09:59 Furosemide (Lasix Inj/Pf 20 Mg/2 Ml Sdv) 20 mg IV DAILY RODNEY Stop: 02/12/20 09:59 Gabapentin (Neurontin 400 Mg Capsule) 1,200 mg PO Q8 RODNEY Stop: 02/11/20 14:14 Last Admin: 01/12/20 14:41 Dose: 1,200 mg Documented by: Heparin Sodium (Porcine) (Heparin Inj 5,000 Units/Ml 1 Ml Vial) 5,000 unit SUBCUT Q8 RODNEY Stop: 02/11/20 13:59 Last Admin: 01/12/20 23:06 Dose: Not Given Documented by: Dobutamine HCl/Dextrose (Dobutrex Rtu 500 Mg-D5w 250 Ml Premixed Bag) 500 mg in 250 mls @ 0 mls/hr IV CONTINUOUS PRN; Protocol PRN Reason: THIS MED IS NOT "PRN" Stop: 02/11/20 13:15 Last Titration: 01/12/20 16:42 Dose: 5 mcg/kg/min, 10.44 mls/hr Documented by: Levofloxacin/Dextrose (Levaquin Rtu 750 Mg/D5w 150 Ml Premix) 750 mg in 150 mls @ 100 mls/hr IV [facility]ON [facility] Stop: 01/20/20 11:59 Lisinopril (Prinivil 5 Mg Tablet) 2.5 mg PO DAILY RODNEY Stop: 02/12/20 09:59 Magnesium Hydroxide (Milk Of Magnesia 30 Ml Udcup) 30 ml PO HSP PRN PRN Reason: FOR CONSTIPATION Stop: 02/11/20 13:15 Metoprolol Succinate (Toprol Xl 25 Mg Tab.Sr) 12.5 mg PO Q12 RODNEY Stop: 02/11/20 21:59 Last Admin: 01/12/20 23:07 Dose: Not Given Documented by: Potassium Chloride (Klor-Con 10 Meq Tablet Er) 20 meq PO DAILY [facility] Stop: 02/12/20 09:59 Simvastatin (Zocor 40 Mg Tablet) 40 mg PO QHS RODNEY Stop: 02/11/20 21:59 Sodium Chloride (Saline Flush 2.5 Ml Monoject Prefil Syrin) 2.5 ml IV Q8 RODNEY Stop: 02/11/20 13:59 Last Admin: 01/12/20 16:11 Dose: Not Given Documented by: Tramadol HCl (Ultram 50 Mg Tablet) 100 mg PO Q8HP PRN PRN Reason: FOR PAIN Stop: 01/19/20 13:57 Vitamin B Complex (Vitamin B Complex Tablet) 1 tab PO DAILY [facility] Stop: 02/12/20 09:59 Discontinued Medications Albuterol/Ipratropium (Duoneb 3 Ml Ampul) 3 ml NEB NOW ONE Stop: 01/12/20 10:30 Last Admin: 01/12/20 10:39 Dose: 3 ml Documented by: Furosemide (Lasix Inj/Pf 20 Mg/2 Ml Sdv) 20 mg IV NOW ONE Stop: 01/12/20 12:34 Last Admin: 01/12/20 16:03 Dose: Not Given Documented by: Levofloxacin/Dextrose (Levaquin Rtu 750 Mg/D5w 150 Ml Premix) 750 mg in 150 mls @ 100 mls/hr IV DAILY RODNEY Stop: 01/19/20 11:59 Last Infusion: 01/12/20 13:41 Dose: Infused Documented by: Morphine Sulfate (Morphine 10 Mg/Ml Inj) 1 mg IV NOW ONE Stop: 01/12/20 12:25 Last Admin: 01/12/20 12:33 Dose: 1 mg Documented by: Potassium Chloride (Klor-Con 10 Meq Tablet Er) 20 meq PO NOW ONE Stop: 01/12/20 15:01 Last Admin: 01/12/20 14:41 Dose: 20 meq Documented by: PHYSICAL EXAMINATION: The patient appears to be chronically ill and malnourished. Selected Entries 01/08/20 01/08/20 01/12/20 07:00 07:33 10:17 Temperature 98.5 F Temperature Oral Source Heart Rate ( 108 Monitors) Respiratory 20 20 Rate Blood Pressure Blood Pressure 119/82 [Left Upper Arm ] Blood Pressure Mean Blood Pressure 94 Mean [Left Upper Arm] Blood Pressure Sitting Position [Left Upper Arm] O2 Sat by Pulse 97 Oximetry Oxygen Delivery Nasal Cannula Method ( includes room air) Oxygen Flow 3 Rate 01/12/20 01/12/20 01/12/20 10:18 10:45 10:47 Temperature 97.7 F Temperature Source Heart Rate ( 122 Monitors) Respiratory 25 H Rate Blood Pressure 99/72 L Blood Pressure [Left Upper Arm ] Blood Pressure 81 Mean Blood Pressure Mean [Left Upper Arm] Blood Pressure Position [Left Upper Arm] O2 Sat by Pulse Oximetry Oxygen Delivery Method ( includes room air) Oxygen Flow Rate 01/12/20 12:21 Temperature Temperature Source Heart Rate ( Monitors) Respiratory Rate Blood Pressure Blood Pressure [Left Upper Arm ] Blood Pressure Mean Blood Pressure Mean [Left Upper Arm] Blood Pressure Position [Left Upper Arm] O2 Sat by Pulse 100 Oximetry Oxygen Delivery Method ( includes room air) Oxygen Flow 4 Rate HEAD: Is atraumatic normocephalic. EYES: Pupils are equal round regular reactive to light accommodation. Extraocular movements are normal. There is no conjunctival pallor. There is no scleral icterus. EARS: Tympanic membranes are intact. External auditory canals are clear. NOSE: There is no deviated nasal septum. There is no inflammation of the nasal mucous membrane. MOUTH: Mucous noted in the mouth are moist tongue is moist. There is no ulcers. There is no bleeding from the gums. THROAT: There is no redness of the oropharynx. There is no exudates. SKIN: There is no skin rashes or skin lesions. There is no particular ecchymosis. NECK: Is supple. There is JVD present carotids are equal there is no bruits. There is no lymphadenopathy. There is no goiter. There is no accessory muscle respiration use. Trachea central LUNGS: There is diminished air entry and prolonged expiration. On percussion there is hyperresonance. He has scattered rhonchi and few end expiratory wheezing. He has dry crackles in both the bases along with fine rales of CHF. HEART: S1-S2 is heard. S1 is of normal intensity. There is no S3 gallop. There is no S4 gallop. There is systolic murmur left sternal border and the apex there is no rub. ABDOMEN: Is obese. Nontender. There is no hepatosplenomegaly. Bowel sounds are well heard. There is no tender areas of masses. EXTREMITIES: Femorals are deep. Femorals are diminished. Leg pulses are diminished. There is 2 + bilateral pedal edema present. There is no DVT. There is no cellulitis. There is no calf tenderness. There is no sinus or clubbing. Capillary refill is normal. 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 PSYCHIATRIC: The patient judgment insight are intact, and his affect is normal. Labs- Entire Visit 01/12/20 01/12/20 01/12/20 11:34 11:34 11:34 WBC 9.8 RBC 3.30 L Hgb 8.7 L Hct 25.9 L MCV 79 L MCH 26.3 L MCHC 33.4 RDW 19.1 H Plt Count 183 Lymph % (Auto) 10.1 L Bradley % (Auto) 7.2 Eos % (Auto) 2.4 Baso % (Auto) 0.8 Absolute Neuts (auto) 7.8 Absolute Lymphs (auto) 1.0 Absolute Monos (auto) 0.7 Absolute Eos (auto) 0.2 Absolute Basos (auto) 0.1 Seg Neutrophils % 79.5 H PT INR APTT VBG pH VBG pCO2 VBG HCO3 VBG Base Excess Sodium 134.4 L Potassium 3.2 L Chloride 97 L Carbon Dioxide 32 H Anion Gap 5 BUN 21 H Creatinine 0.75 Est GFR ( Amer) > 60 Est GFR (MDRD) Non-Af > 60 Glucose 108 Calcium 7.5 L Total Bilirubin 0.6 Direct Bilirubin 0.0 Neonat Total Bilirubin Not Reportable Neonat Direct Bilirubin Not Reportable Neonat Indirect Bili Not Reportable AST 44 ALT 20 Alkaline Phosphatase 129 H CK-MB (CK-2) 2.08 Troponin I 0.040 NT-Pro-B Natriuret Pep 49055 H Total Protein 6.3 Albumin 2.8 L Lipase 16.5 L Urine Color Urine Appearance Urine pH Ur Specific [place] Urine Protein Urine Glucose (UA) Urine Ketones Urine Blood Urine Nitrite Urine Bilirubin Urine Urobilinogen Ur Leukocyte Esterase Urine WBC (Auto) Urine RBC (Auto) U Hyaline Cast (Auto) Squamous Epi Cells Auto Urine Mucus (Auto) Urine Ascorbic Acid 01/12/20 01/12/20 01/12/20 11:34 12:33 13:07 WBC RBC Hgb Hct MCV MCH MCHC RDW Plt Count Lymph % (Auto) Bradley % (Auto) Eos % (Auto) Baso % (Auto) Absolute Neuts (auto) Absolute Lymphs (auto) Absolute Monos (auto) Absolute Eos (auto) Absolute Basos (auto) Seg Neutrophils % PT 18.1 H INR 1.48 APTT 33.2 VBG pH Cancelled 7.41 VBG pCO2 Cancelled 49.0 VBG HCO3 Cancelled 30.6 VBG Base Excess Cancelled 5.4 Sodium Potassium Chloride Carbon Dioxide Anion Gap BUN Creatinine Est GFR ( Amer) Est GFR (MDRD) Non-Af Glucose Calcium Total Bilirubin Direct Bilirubin Neonat Total Bilirubin Neonat Direct Bilirubin Neonat Indirect Bili AST ALT Alkaline Phosphatase CK-MB (CK-2) Troponin I NT-Pro-B Natriuret Pep Total Protein Albumin Lipase Urine Color Urine Appearance Urine pH Ur Specific [place] Urine Protein Urine Glucose (UA) Urine Ketones Urine Blood Urine Nitrite Urine Bilirubin Urine Urobilinogen Ur Leukocyte Esterase Urine WBC (Auto) Urine RBC (Auto) U Hyaline Cast (Auto) Squamous Epi Cells Auto Urine Mucus (Auto) Urine Ascorbic Acid 01/12/20 14:06 WBC RBC Hgb Hct MCV MCH MCHC RDW Plt Count Lymph % (Auto) Bradley % (Auto) Eos % (Auto) Baso % (Auto) Absolute Neuts (auto) Absolute Lymphs (auto) Absolute Monos (auto) Absolute Eos (auto) Absolute Basos (auto) Seg Neutrophils % PT INR APTT VBG pH VBG pCO2 VBG HCO3 VBG Base Excess Sodium Potassium Chloride Carbon Dioxide Anion Gap BUN Creatinine Est GFR ( Amer) Est GFR (MDRD) Non-Af Glucose Calcium Total Bilirubin Direct Bilirubin Neonat Total Bilirubin Neonat Direct Bilirubin Neonat Indirect Bili AST ALT Alkaline Phosphatase CK-MB (CK-2) Troponin I NT-Pro-B Natriuret Pep Total Protein Albumin Lipase Urine Color DARK YELLOW Urine Appearance CLEAR Urine pH 5.0 Ur Specific [place] 1.025 Urine Protein 30 H Urine Glucose (UA) NEGATIVE Urine Ketones NEGATIVE Urine Blood NEGATIVE Urine Nitrite NEGATIVE Urine Bilirubin NEGATIVE Urine Urobilinogen 4.0 H Ur Leukocyte Esterase NEGATIVE Urine WBC (Auto) 1 Urine RBC (Auto) 0 U Hyaline Cast (Auto) 3 Squamous Epi Cells Auto 1 Urine Mucus (Auto) RARE Urine Ascorbic Acid NEGATIVE Chest X-Ray 01/12/20 10:28 IMPRESSION: Left lower lobe pneumonia. No significant change. Chest X-Ray 01/12/20 11:41 IMPRESSION: NO PNEUMOTHORAX FOLLOWING CENTRAL LINE PLACEMENT. Patient's echo done today shows severely reduced LV ejection fraction and severe pulmonary hypertension. Please see report. IMPRESSION/RECOMMENDATION: 1. Acute on chronic respiratory failure: This is a combination of acute exacerbation of COPD, pneumonia, bronchitis, and congestive heart failure. 2. Acute on chronic systolic left and right systolic heart failure: A central line has been placed. We will start the patient on dobutamine. If the blood pressure should fall then would start the patient on dopamine. Continue the patient on beta-sarina and MILAGRO inhibitor. Continue diuretics. 3. Acute exacerbation of COPD. And left lower lobe pneumonia: Continue antibiotics continue respiratory treatments and oxygen. 3. 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 Continue anti-cardiomyopathy treatment as per gold standard which is being done. 4.Coronary artery disease: History of myocardial infarction in the past: No evidence of anginal symptoms. The patient had resting part of the stress test Cardiolite done today. Later when the patient's heart failure stabilized will do stress Cardiolite stress test later. 5. Hypertension: At present blood pressure is acceptable. 6. History of cirrhosis of the liver: Secondary to chronic alcohol abuse. 7. History of alcohol abuse and tobacco abuse disorder. Ill effects of alcohol and tobacco have been discussed with the patient tobacco cessation counseling was done. This took about 4 minutes. 8. Hyperlipidemia: Continue statins. Medications reviewed. Medical regimen and management plan discussed with the attending provider on the case. Medical decision making is of high complexity. 60 minutes spent as patient more than 50% Dr. the time spent on direct patient care. Will follow.
--- NOTE | 2020-01-12 18:24 | EKG REPORT ---
SEVERITY:- ABNORMAL ECG - NONSPECIFIC T ABNORMALITIES, LATERAL LEADS BORDERLINE PROLONGED QT INTERVAL MULTIFOCAL ATRIAL TACHYCARDIA : Confirmed by: Lorenza Sandoval MD 12-Jan-2020 18:23:14
[2020-01-12] MEDS: METOPROLOL SUCCINATE 25 MG TAB.SR.24H PO SCH (23:07)
[2020-01-13] MEDS: SIMVASTATIN 40 MG TABLET PO SCH ×2 (00:43→21:26)
[2020-01-13] MEDS: GABAPENTIN 400 MG CAPSULE PO SCH ×4 (00:44→21:26)
[2020-01-13] MEDS: HEPARIN SOD (PORCINE) 5,000 UNIT/ML 1 ML VIAL SUBCUT SCH ×3 (05:29→21:27)
[2020-01-13 05:46] LABS: HEMOGLOBIN 8.6 g/dL (13.5-17.0); MEAN CORPUSCULAR HEMOGLOBIN 25.9 pg (27.0-33.4); MEAN CORPUSCULAR HGB CONC 33.1 g/dL (32.0-36.0); MEAN CORPUSCULAR VOLUME 78 fl (80-97); PLATELET COUNT 188 10^3/uL (150-450); RED BLOOD COUNT 3.32 10^6/uL (4.35-5.55); RED CELL DISTRIBUTION WIDTH 18.9 % (11.5-14.0); WHITE BLOOD COUNT 9.2 10^3/uL (4.0-10.5)
[2020-01-13 06:04] LABS: ANION GAP 7 (5-19); BLOOD UREA NITROGEN 18 mg/dL (7-20); CALCIUM 7.4 mg/dL (8.4-10.2); CARBON DIOXIDE 30 mmol/L (22-30); CHLORIDE 97 mmol/L (98-107); GLUCOSE 110 mg/dL (75-110); POTASSIUM 3.8 mmol/L (3.6-5.0)
[2020-01-13] MEDS: DOBUTAMINE HCL/D5W 500 MG/250 ML RTUINJ IV PRN (08:34)
[2020-01-13] MEDS ORDERED: MAGNESIUM SULFATE/D5W 1 GM/100 ML RTUPB IV ONE (09:06)
--- NOTE | 2020-01-13 09:11 | PDOC PROGRESS REPORT ---
Subjective Progress Note for:: 01/13/20 Subjective:: Still short of breath. The patient reports that he does not feel there is a significant improvement at this time. His legs are still swollen. He was inadvertently placed on a diabetic diet and in fact that was his biggest complaint this morning. Reason For Visit: COMMUNITY AQUIRED PNEUMONIA,COPD,CIRRHOSIS OF LIVE Physical Exam Vital Signs: Temp Pulse Resp BP Pulse Ox 97.2 F 102 H 16 88/58 L 100 01/13/20 03:14 01/13/20 08:00 01/13/20 03:14 01/13/20 08:00 01/13/20 03:14 Intake & Output 01/12/20 01/13/20 01/14/20 06:59 06:59 06:59 Intake Total 473 166 Output Total 525 Balance -52 166 Weight 69.6 kg General appearance: PRESENT: cooperative, mild distress, well-developed Head exam: PRESENT: atraumatic, normocephalic Eye exam: PRESENT: conjunctiva pale. ABSENT: scleral icterus Ear exam: PRESENT: normal external ear exam. ABSENT: bleeding, drainage Mouth exam: PRESENT: moist, tongue midline Respiratory exam: PRESENT: prolonged expiratory phas - Decreased inspiratory phase, rhonchi - Bilaterally right greater than left, symmetrical, unlabored. ABSENT: accessory muscle use, rales, tachypnea, wheezes Cardiovascular exam: PRESENT: RRR, +S1, +S2, other - Distant heart sounds GI/Abdominal exam: PRESENT: normal bowel sounds, soft. ABSENT: distended, guarding, tenderness Rectal exam: PRESENT: deferred Gentrourinary exam: PRESENT: indwelling catheter Extremities exam: PRESENT: +2 edema Musculoskeletal exam: ABSENT: deformity Neurological exam: PRESENT: alert, awake, oriented to person, oriented to place, oriented to time, oriented to situation, CN II-XII grossly intact. ABSENT: alte red Psychiatric exam: PRESENT: appropriate affect. ABSENT: agitated, anxious Focused psych exam: ABSENT: delusional, paranoid, restlessness Skin exam: PRESENT: dry, pallor, warm. ABSENT: rash Results Laboratory Results: 01/13/20 05:37 01/13/20 05:37 01/12/20 01/12/20 01/12/20 11:34 11:34 12:33 WBC 9.8 RBC 3.30 L Hgb 8.7 L Hct 25.9 L MCV 79 L MCH 26.3 L MCHC 33.4 RDW 19.1 H Plt Count 183 Seg Neutrophils % 79.5 H VBG pH Cancelled VBG pCO2 Cancelled VBG HCO3 Cancelled VBG Base Excess Cancelled Sodium 134.4 L Potassium 3.2 L Chloride 97 L Carbon Dioxide 32 H Anion Gap 5 BUN 21 H Creatinine 0.75 Est GFR ( Amer) > 60 Glucose 108 Calcium 7.5 L Magnesium Total Bilirubin 0.6 AST 44 Alkaline Phosphatase 129 H Total Protein 6.3 Albumin 2.8 L Lipase 16.5 L Urine Color Urine Appearance Urine pH Ur Specific [place] Urine Protein Urine Glucose (UA) Urine Ketones Urine Blood Urine Nitrite Ur Leukocyte Esterase Urine WBC (Auto) Urine RBC (Auto) 01/12/20 01/12/20 01/13/20 13:07 14:06 05:37 WBC RBC Hgb Hct MCV MCH MCHC RDW Plt Count Seg Neutrophils % VBG pH 7.41 VBG pCO2 49.0 VBG HCO3 30.6 VBG Base Excess 5.4 Sodium 134.1 L Potassium 3.8 Chloride 97 L Carbon Dioxide 30 Anion Gap 7 BUN 18 Creatinine 0.78 Est GFR ( Amer) > 60 Glucose 110 Calcium 7.4 L Magnesium 1.4 L Total Bilirubin AST Alkaline Phosphatase Total Protein Albumin Lipase Urine Color DARK YELLOW Urine Appearance CLEAR Urine pH 5.0 Ur Specific [place] 1.025 Urine Protein 30 H Urine Glucose (UA) NEGATIVE Urine Ketones NEGATIVE Urine Blood NEGATIVE Urine Nitrite NEGATIVE Ur Leukocyte Esterase NEGATIVE Urine WBC (Auto) 1 Urine RBC (Auto) 0 01/13/20 05:37 WBC 9.2 RBC 3.32 L Hgb 8.6 L Hct 26.0 L MCV 78 L MCH 25.9 L MCHC 33.1 RDW 18.9 H Plt Count 188 Seg Neutrophils % VBG pH VBG pCO2 VBG HCO3 VBG Base Excess Sodium Potassium Chloride Carbon Dioxide Anion Gap BUN Creatinine Est GFR ( Amer) Glucose Calcium Magnesium Total Bilirubin AST Alkaline Phosphatase Total Protein Albumin Lipase Urine Color Urine Appearance Urine pH Ur Specific [place] Urine Protein Urine Glucose (UA) Urine Ketones Urine Blood Urine Nitrite Ur Leukocyte Esterase Urine WBC (Auto) Urine RBC (Auto) 01/12/20 11:34 CK-MB (CK-2) 2.08 Troponin I 0.040 NT-Pro-B Natriuret Pep [id number] H Impressions: Chest X-Ray 01/12/20 11:41 IMPRESSION: NO PNEUMOTHORAX FOLLOWING CENTRAL LINE PLACEMENT. Assessment and Plan - Diagnosis (1) Acute on chronic combined systolic and diastolic congestive heart failure Is this a current diagnosis for this admission?: Yes Plan: 01/12/20 The patient was just [facility] At that time he presented with the same diagnosis of acute on chronic heart failure. He did require dobutamine and dopamine. He states that his breathing difficulties never significantly improved from his discharge and he noticed increased swelling of his legs. He had an echocardiogram last month that showed an ejection fraction of 20% with grade 1/4 diastolic failure and moderate pulmonary hypertension. He presented for a preoperative stress test today but when he arrived Dr. Sandoval evaluated him and deemed him not only inappropriate for the stress test but requiring admission. After discussion with Dr. Sandoval the patient was placed on dobutamine infusion. We will resume his other cardiac medications when his blood pressure will tolerate. He is getting oxygen supplementation. 01/13/2020 The patient continues on dobutamine. His blood pressures his map continues to remain greater than 70. We will continue current regimen. Please also see Dr. Sandoval's note as cardiology is consulting. (2) Left lower lobe pneumonia Qualifiers: Pneumonia type: due to unspecified organism Qualified Code(s): J18.9 - Pneumonia, unspecified organism Is this a current diagnosis for this admission?: Yes Plan: 01/12/2020 The patient will continue a course of levofloxacin for possible pneumonia. He was just ending hospital a month ago. He does not have an elevated white blood cell count but that does not necessarily rule out an infectious process. It is very possible for him to have 2 pulmonary etiologies at once. We will continue to monitor closely, continue antibiotics and provide symptom support. 01/13/2020 Continue antibiotics at this time. (3) Hypotension Qualifiers: Hypotension type: other hypotension type Qualified Code(s): I95.89 - Other hypotension Is this a current diagnosis for this admission?: Yes Plan: 01/12/2020 His hypotension is cardiogenic. He is hovering with his systolic blood pressure mostly in the 90s. IV dobutamine will be started which will help his cardiac output and his blood pressure. 01/13/2020 Continue dobutamine. Resume other cardiac medications when clinically appropriate. (4) Hypokalemia Is this a current diagnosis for this admission?: Yes Plan: 01/12/2020 I will initiate oral potassium supplementation. We will monitor his labs closely. Diuresis will be dose adjusted based on his intake and output as well as his clinical presentation. 01/13/2020 Serum potassium now normal. Continue supplementation. (5) Hyponatremia Is this a current diagnosis for this admission?: Yes Plan: 01/12/2020 The hyponatremia is most likely due to his chronic cardiac issues. We will monitor the sodium levels. 01/13/2020 Hyponatremia is chronic and stable. Monitor with routine labs. (6) Macrocytic anemia Is this a current diagnosis for this admission?: Yes Plan: 01/12/2020 Possibly related to his history of alcohol use. He does utilize vitamin B12 and folic acid at home. I will institute daily doses of both. 01/13/2020 Hemoglobin remains less than 9.0. With his current cardiac status if he has a 30-day less than 9.0 I will discuss possible transfusion. This may help with oxygenation and perfusion. (7) COPD (chronic obstructive pulmonary disease) Qualifiers: COPD type: unspecified COPD Qualified Code(s): J44.9 - Chronic obstructive pulmonary disease, unspecified Is this a current diagnosis for this admission?: Yes Plan: 01/12/2020 The patient has 2 pulmonary processes (heart failure and pneumonia) not counting the COPD. We will continue his inhaler regimen but at this time I have not ordered systemic steroids. As needed nebulizers will be available also. 02/01/2020 He is on 3 L nasal cannula today. We will continue to monitor his pulse oximetry and taper his oxygen tolerated. (8) Hernia, inguinal, right Is this a current diagnosis for this admission?: Yes Plan: 01/11/1931 The patient was in the middle of a preop evaluation to get his inguinal hernia repaired. Because of his cardiac status this will be delayed. We will consult surgery if clinically required. (9) Abdominal pain Qualifiers: Abdominal location: generalized Qualified Code(s): R10.84 - Generalized abdominal pain Is this a current diagnosis for this admission?: Yes Plan: 01/12/2020 Secondary to his hernia. Symptomatic treatment at this time. - Plan Summary Summary: 01/12/2020 The patient has diabetes listed on his problem list however his last 2 he moglobin A1c's were both below 5.0. In addition he has hypothyroidism listed. His TSH and free T4 were both normal and his free T3 was found to be below the lower limit normal however he is not on any thyroid replacement at this time. I will discuss with cardiology and consider
[2020-01-13] MEDS: FUROSEMIDE INJ/PF 20 MG/2 ML SDV IV SCH (09:35)
[2020-01-13] MEDS: METOPROLOL SUCCINATE 25 MG TAB.SR.24H PO SCH ×2 (09:36→21:26)
[2020-01-13] MEDS: LISINOPRIL 5 MG TABLET PO SCH (09:36)
[2020-01-13] MEDS: VITAMIN B COMPLEX TABLET PO SCH (09:36)
[2020-01-13] MEDS: FOLIC ACID 1 MG TABLET PO SCH (09:39)
[2020-01-13] MEDS: FLUTICASONE/VILANTEROL 200-25 MCG/DOSE IH SCH (09:39)
[2020-01-13] MEDS ORDERED: POTASSIUM CHLORIDE 10 MEQ TABLET.ER PO SCH (10:00)
[2020-01-13] MEDS ORDERED: MAGNESIUM OXIDE 400 MG TABLET PO SCH (10:00)
[2020-01-13] MEDS: IPRATROPIUM/ALBUTEROL 0.5-2.5 MG/3 ML AMPUL NEB PRN ×2 (10:05→17:52)
[2020-01-13] MEDS: LEVOFLOXACIN 750 MG/D5W RTU 750 MG/150 ML RTUPB IV SCH (11:14)
--- NOTE | 2020-01-13 19:55 | Progress Note ---
Provider Note Provider Note: CARDIOLOGY PROGRESS NOTE by Dr. Lorenza Sandoval on 01/13/2020. Subjective: Patient states he feels marginally better. He still has no orthopnea or PND there is no chest pain or discomfort. The patient appears to be in multifocal atrial tachycardia but heart rate is much slower. He is on dobutamine at 5 mcg/kg/min but his blood pressure drops to 88 although he is asymptomatic. His urine output is good. There is no ventricular arrhythmia seen on the monitor. There is no TIA CVA symptoms. PHYSICAL EXAMINATION: The patient appears to be a frail build and appears to be chronically ill and malnourished. Selected Entries 01/13/20 01/13/20 01/13/20 09:00 10:05 11:00 Pulse Rate 102 H Heart Rate ( 115 Monitors) Blood Pressure 101/69 98/66 L O2 Sat by Pulse 95 Oximetry Fraction of 32 Inspired Oxygen (FIO2) Oxygen Flow 3 Rate HEAD: Is atraumatic normocephalic. EYES: Pupils are equal round regular reactive to light accommodation. Extraocular movements are normal. There is no conjunctival pallor. There is no scleral icterus. EARS: Tympanic membranes are intact. External auditory canals are clear. NOSE: There is no deviated nasal septum. There is no inflammation of the nasal mucous membrane. MOUTH: Mucous noted in the mouth are moist tongue is moist. There is no ulcers. There is no bleeding from the gums. THROAT: There is no redness of the oropharynx. There is no exudates. SKIN: There is no skin rashes or skin lesions. There is no particular ecchymosis. NECK: Is supple. There is JVD present carotids are equal there is no bruits. There is no lymphadenopathy. There is no goiter. There is no accessory muscle respiration use. Trachea central LUNGS: There is diminished air entry and prolonged expiration. On percussion there is hyperresonance. He has scattered rhonchi and few end expiratory wheezing. He has dry crackles in both the bases along with fine rales of CHF. HEART: S1-S2 is heard. S1 is of normal intensity. There is no S3 gallop. There is no S4 gallop. There is systolic murmur left sternal border and the apex there is no rub. ABDOMEN: Is obese. Nontender. There is no hepatosplenomegaly. Bowel sounds are well heard. There is no tender areas . There is right inguinal hernia present. EXTREMITIES: Femorals are deep. Femorals are diminished. Leg pulses are diminished. There is 2 + bilateral pedal edema present. There is no DVT. There is no cellulitis. There is no calf tenderness. There is no sinus or clubbing. Capillary refill is normal. FINANCIAL SERVICES COUNSELOR: The patient is conscious awake alert oriented x3 with no focal deficits. PSYCHIATRIC: The patient judgment insight are intact, and his affect is normal. The patient's 24-hour intake is 473 mL. The patient's output is 525 mL. Labs- All tests 24 hr 01/13/20 01/13/20 05:37 05:37 WBC 9.2 RBC 3.32 L Hgb 8.6 L Hct 26.0 L MCV 78 L MCH 25.9 L MCHC 33.1 RDW 18.9 H Plt Count 188 Sodium 134.1 L Potassium 3.8 Chloride 97 L Carbon Dioxide 30 Anion Gap 7 BUN 18 Creatinine 0.78 Est GFR ( Amer) > 60 Est GFR (MDRD) Non-Af > 60 Glucose 110 Calcium 7.4 L Magnesium 1.4 L Chest X-Ray 01/12/20 10:28 IMPRESSION: Left lower lobe pneumonia. No significant change. Chest X-Ray 01/12/20 11:41 IMPRESSION: NO PNEUMOTHORAX FOLLOWING CENTRAL LINE PLACEMENT. IMPRESSION/RECOMMENDATION: 1. Acute on chronic respiratory failure: This is a combination of acute exacerbation of COPD, pneumonia, bronchitis, and congestive heart failure. 2. Acute on chronic systolic left and right systolic heart failure: A central line has been placed. We will start the patient on dobutamine. The patient's blood pressure is low, hence we will start the patient on dopamine at 2.5mcg/kg/min.. Continue the patient on beta-sarina and MILAGRO inhibitor. Continue diuretics. 3. Acute exacerbation of COPD. And left lower lobe pneumonia: Continue antibiotics continue respiratory treatments and oxygen. 3. 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 Continue anti-cardiomyopathy treatment as per gold standard which is being done. 4.Coronary artery disease: History of myocardial infarction in the past: No evidence of anginal symptoms. The patient had resting part of the stress test Cardiolite done today. Later when the patient's heart failure stabilized will do stress Cardiolite stress test later. 5. Multifocal atrial tachycardia: If the heart rate goes much higher then will start the patient on Cardizem drip but undercover of dopamine. 6. Hypertension: At present blood pressure is acceptable. 7. History of cirrhosis of the liver: Secondary to chronic alcohol abuse. 8. History of alcohol abuse and tobacco abuse disorder. Ill effects of alcohol and tobacco have been discussed with the patient tobacco cessation counseling was done. This took about 4 minutes. 9. Hyperlipidemia: Continue statins. Medications reviewed. Medications added in the form of dopamine. Hence medical decision making is of high complexity. 40 minutes spent on the patient with more than 50% time spent in direct patient care. Medical decision making is of high complexity. Medical regimen management and plan discussed with attending provider on the case. Will follow.
[2020-01-13] MEDS: DOPAMINE HCL/DEXTROSE 5%-WATER 800 MG/250 ML RTUINJ IV PRN (21:27)
[2020-01-14] MEDS: GABAPENTIN 400 MG CAPSULE PO SCH ×3 (05:04→21:05)
[2020-01-14] MEDS: HEPARIN SOD (PORCINE) 5,000 UNIT/ML 1 ML VIAL SUBCUT SCH ×3 (05:04→21:06)
[2020-01-14 05:37] LABS: HEMATOCRIT 24.9 % (37.9-51.0); HEMOGLOBIN 8.2 g/dL (13.5-17.0); MEAN CORPUSCULAR HGB CONC 32.9 g/dL (32.0-36.0); MEAN CORPUSCULAR VOLUME 79 fl (80-97); PLATELET COUNT 175 10^3/uL (150-450); RED BLOOD COUNT 3.15 10^6/uL (4.35-5.55); RED CELL DISTRIBUTION WIDTH 19.2 % (11.5-14.0); WHITE BLOOD COUNT 8.5 10^3/uL (4.0-10.5)
[2020-01-14 05:53] LABS: ANION GAP 5 (5-19); BLOOD UREA NITROGEN 21 mg/dL (7-20); CALCIUM 7.3 mg/dL (8.4-10.2); CARBON DIOXIDE 31 mmol/L (22-30); CHLORIDE 97 mmol/L (98-107); GLUCOSE 161 mg/dL (75-110); POTASSIUM 3.6 mmol/L (3.6-5.0)
--- NOTE | 2020-01-14 07:42 | RADIOLOGY REPORT (SQ) ---
EXAM DESCRIPTION: XR CHEST 1 VIEW COMPLETED DATE/TME: 01/14/2020 06:00 CLINICAL HISTORY: Heart failure with pneumonia COMPARISON: 01/12/2020 FINDINGS: Single frontal view of the chest. Cardiomediastinal silhouette: Right IJ central venous catheter. Cardiomegaly. Leads overlie the chest. Lungs: Left basilar opacity with small left pleural effusion. Bones: Prior fixation left clavicle. Upper abdomen: No abnormality identified. IMPRESSION: 1. Left basilar opacity and small left pleural effusion are stable. 2. Cardiomegaly
[2020-01-14] MEDS: IPRATROPIUM/ALBUTEROL 0.5-2.5 MG/3 ML AMPUL NEB PRN ×3 (08:19→20:18)
[2020-01-14] MEDS ORDERED: NORMAL SALINE 250 ML IV PRN ×2 (09:06)
[2020-01-14] MEDS ORDERED: MAGNESIUM SULFATE/D5W 1 GM/100 ML RTUPB IV ONE (09:14)
--- NOTE | 2020-01-14 09:22 | PDOC PROGRESS REPORT ---
Subjective Progress Note for:: 01/14/20 Subjective:: Patient still feels poorly. He is still complaining of some difficulty breathing. Edema seems slightly improved. Reason For Visit: COMMUNITY AQUIRED PNEUMONIA,COPD,CIRRHOSIS OF LIVE Physical Exam Vital Signs: Temp Pulse Resp BP Pulse Ox 97.9 F 105 H 20 102/72 96 01/14/20 07:58 01/14/20 08:19 01/14/20 08:19 01/14/20 08:00 01/14/20 08:19 Intake & Output 01/13/20 01/14/20 01/15/20 06:59 06:59 06:59 Intake Total 473 3191 Output Total 525 1475 Balance -52 1716 Weight 69.6 kg 72.5 kg General appearance: PRESENT: cooperative, mild distress, well-developed, well- nourished Head exam: PRESENT: atraumatic, normocephalic Eye exam: PRESENT: conjunctiva pale, EOMI. ABSENT: scleral icterus Ear exam: PRESENT: normal external ear exam. ABSENT: bleeding, drainage Mouth exam: PRESENT: moist, tongue midline Respiratory exam: PRESENT: prolonged expiratory phas, rhonchi - Left, symm etrical, unlabored. ABSENT: accessory muscle use, tachypnea, wheezes Cardiovascular exam: PRESENT: RRR, +S1, +S2. ABSENT: irregular rhythm GI/Abdominal exam: PRESENT: distended - Slightly distended, normal bowel sounds, soft. ABSENT: guarding, tenderness Rectal exam: PRESENT: deferred Gentrourinary exam: PRESENT: indwelling catheter Extremities exam: PRESENT: +2 edema Musculoskeletal exam: ABSENT: deformity, dislocation, tenderness Neurological exam: PRESENT: alert, awake, oriented to person, oriented to place, oriented to situation, CN II-XII grossly intact. ABSENT: altered Psychiatric exam: PRESENT: flat affect. ABSENT: agitated, anxious Focused psych exam: ABSENT: delusional, paranoid, restlessness Skin exam: PRESENT: dry, pallor, warm. ABSENT: rash Results Laboratory Results: 01/14/20 05:09 01/14/20 05:09 01/14/20 01/14/20 05:09 05:09 WBC 8.5 RBC 3.15 L Hgb 8.2 L Hct 24.9 L MCV 79 L MCH 26.0 L MCHC 32.9 RDW 19.2 H Plt Count 175 Sodium 132.5 L Potassium 3.6 Chloride 97 L Carbon Dioxide 31 H Anion Gap 5 BUN 21 H Creatinine 0.74 Est GFR ( Amer) > 60 Glucose 161 H Calcium 7.3 L Magnesium 1.5 L 01/12/20 11:34 CK-MB (CK-2) 2.08 Troponin I 0.040 NT-Pro-B Natriuret Pep [id number] H Impressions: Chest X-Ray 01/14/20 06:00 IMPRESSION: 1. Left basilar opacity and small left pleural effusion are stable. 2. Cardiomegaly Assessment and Plan - Diagnosis (1) Acute on chronic combined systolic and diastolic congestive heart failure Is this a current diagnosis for this admission?: Yes Plan: 01/12/20 The patient was just discharged on December 10 from [facility]. At that time he presented with the same diagnosis of acute on chronic heart failure. He did require dobutamine and dopamine. He states that his breathing difficulties never significantly improved from his discharge and he noticed incr eased swelling of his legs. He had an echocardiogram last month that showed an ejection fraction of 20% with grade 1/4 diastolic failure and moderate pulmonary hypertension. He presented for a preoperative stress test today but when he arrived Dr. Sandoval evaluated him and deemed him not only inappropriate for the stress test but requiring admission. After discussion with Dr. Sandoval the patient was placed on dobutamine infusion. We will resume his other cardiac medications when his blood pressure will tolerate. He is getting oxygen supplementation. 01/13/2020 The patient continues on dobutamine. His blood pressures his map continues to remain greater than 70. We will continue current regimen. Please also see Dr. Sandoval's note as cardiology is consulting. 01/14/2020 The patient is now on dobutamine and dopamine. His hemoglobin has been trickling down and is 8.2. I feel he will benefit from a unit of packed red blood cells. I did explain this to the patient and he is in agreement. Continue diuretic therapy as tolerated. We will try to increase metoprolol to 12.5 mg every 8 hours. Low-dose morphine is available for difficulty breathing. (2) Left lower lobe pneumonia Qualifiers: Pneumonia type: due to unspecified organism Qualified Code(s): J18.9 - Pneumonia, unspecified organism Is this a current diagnosis for this admission?: Yes Plan: 01/12/2020 The patient will continue a course of levofloxacin for possible pneumonia. He was just ending hospital a month ago. He does not have an elevated white blood cell count but that does not necessarily rule out an infectious process. It is very possible for him to have 2 pulmonary etiologies at once. We will continue to monitor closely, continue antibiotics and provide symptom support. 01/13/2020 Continue antibiotics at this time. 01/14/2020 Continue levofloxacin (3) Hypotension Qualifiers: Hypotension type: other hypotension type Qualified Code(s): I95.89 - Other hypotension Is this a current diagnosis for this admission?: Yes Plan: 01/12/2020 His hypotension is cardiogenic. He is hovering with his systolic blood pressure mostly in the 90s. IV dobutamine will be started which will help his cardiac output and his blood pressure. 01/13/2020 Continue dobutamine. Resume other cardiac medications when clinically appropriate. 01/14/2020 Now on dopamine and dobutamine. Adjusting medications judiciously based on blood pressures (4) Hypokalemia Is this a current diagnosis for this admission?: Yes Plan: 01/12/2020 I will initiate oral potassium supplementation. We will monitor his labs closely. Diuresis will be dose adjusted based on his intake and output as well as his clinical presentation. 01/13/2020 Serum potassium now normal. Continue supplementation. 01/14/2020 Potassium is just in the low normal range. Will increase potassium chloride supplement to 20 mEq twice a day (5) Hyponatremia Is this a current diagnosis for this admission?: Yes Plan: 01/12/2020 The hyponatremia is most likely due to his chronic cardiac issues. We will monitor the sodium levels. 01/13/2020 Hyponatremia is chronic and stable. Monitor with routine labs. 01/14/2020 Sodium is still under the normal limit but stable (6) Macrocytic anemia Is this a current diagnosis for this admission?: Yes Plan: 01/12/2020 Possibly related to his history of alcohol use. He does utilize vitamin B12 and folic acid at home. I will institute daily doses of both. 01/13/2020 Hemoglobin remains less than 9.0. With his current cardiac status if he has a 30-day less than 9.0 I will discuss possible transfusion. This may help with oxygenation and perfusion. 01/14/2020 Continue vitamin supplements. His hemoglobin is down to 8.2. I have ordered 1 unit of packed red blood cells. (7) COPD (chronic obstructive pulmonary disease) Qualifiers: COPD type: unspecified COPD Qualified Code(s): J44.9 - Chronic obstructive pulmonary disease, unspecified Is this a current diagnosis for this admission?: Yes Plan: 01/12/2020 The patient has 2 pulmonary processes (heart failure and pneumonia) not counting the COPD. We will continue his inhaler regimen but at this time I have not ordered systemic steroids. As needed nebulizers will be available also. 01/13/2020 He is on 3 L nasal cannula today. We will continue to monitor his pulse oximetry and taper his oxygen tolerated. 01/14/2020 Continue current inhaler regimen and oxygen supplementation (8) Hernia, inguinal, right Is this a current diagnosis for this admission?: Yes Plan: 01/11/1931 The patient was in the middle of a preop evaluation to get his inguinal hernia repaired. Because of his cardiac status this will be delayed. We will consult surgery if clinically required. (9) Abdominal pain Qualifiers: Abdominal location: generalized Qualified Code(s): R10.84 - Generalized abdominal pain Is this a current diagnosis for this admission?: Yes Plan: 01/12/2020 Secondary to his hernia. Symptomatic treatment at this time. - Plan Summary Summary: 01/12/2020 The patient has diabetes listed on his problem list however his last 2 hemoglobin A1c's were both below 5.0. In addition he has hypothyroidism listed. His TSH and free T4 were both normal and his free T3 was found to be below the lower limit normal however he is not on any thyroid replacement at this time. I will discuss with cardiology and consider - Time Time Spent with patient: 15-24 minutes Medications reviewed and adjusted accordingly: Yes
[2020-01-14] MEDS ORDERED: METOPROLOL SUCCINATE 25 MG TAB.SR.24H PO SCH ×2 (10:00→14:00)
[2020-01-14] MEDS: LISINOPRIL 5 MG TABLET PO SCH (10:27)
[2020-01-14] MEDS: FOLIC ACID 1 MG TABLET PO SCH (10:30)
[2020-01-14] MEDS: FUROSEMIDE INJ/PF 20 MG/2 ML SDV IV SCH (10:30)
[2020-01-14] MEDS: VITAMIN B COMPLEX TABLET PO SCH (10:30)
[2020-01-14] MEDS: FLUTICASONE/VILANTEROL 200-25 MCG/DOSE IH SCH (10:30)
[2020-01-14] MEDS: MAGNESIUM OXIDE 400 MG TABLET PO SCH ×2 (10:31→17:46)
[2020-01-14] MEDS: POTASSIUM CHLORIDE 10 MEQ TABLET.ER PO SCH ×2 (10:31→21:05)
[2020-01-14] MEDS: MORPHINE SULFATE 10 MG/ML INJ IV PRN ×2 (10:31→17:49)
[2020-01-14] MEDS: LEVOFLOXACIN 750 MG/D5W RTU 750 MG/150 ML RTUPB IV SCH (11:52)
[2020-01-14] MEDS: AMIODARONE HCL 200 MG TABLET PO SCH ×2 (13:51→21:05)
[2020-01-14] MEDS: DOBUTAMINE HCL/D5W 500 MG/250 ML RTUINJ IV PRN (20:15)
[2020-01-14] MEDS: ATORVASTATIN CALCIUM 20 MG TABLET PO SCH (21:05)
[2020-01-14] MEDS: METOPROLOL SUCCINATE 25 MG TAB.SR.24H PO SCH (21:05)
--- NOTE | 2020-01-14 21:47 | Progress Note ---
Provider Note Provider Note: CARDIOLOGY PROGRESS NOTE by Dr. Lorenza Sandoval on 01/14/2020. OBJECTIVE: The patient last night had asymptomatic nonsustained ventricular tachycardia. His magnesium came back low and he has magnesium replaced with no further episodes of nonsustained ventricular tachycardia. The patient states he has no chest pain. His shortness of breath is improved. But he still feels weak and has shortness breath with this more than minimal exertion like moving around in the bed. There is no PND orthopnea. He continues to have cough productive of yellowish sputum. But this is much less. The patient's hemoglobin is gone down to 8.2 but the patient has no symptoms of signs suggestive of GI bleed. The patient is getting blood transfusion. He last night his blood pressure dropped and his dobutamine which was dialed up to 7.5 mcg/kg/min was held temporarily and restarted at 2.5 mcg/kg/min and the patient's dopamine was increased to 5 mcg/min. The blood pressure is still soft but acceptable. His leg edema is marginally improved. PHYSICAL EXAMINATION: The patient appears to be chronically ill and [place] shed. At present in no acute distress. Selected Entries 01/14/20 01/14/20 12:05 13:00 Temperature 97.6 F Temperature Oral Source Pulse Rate 119 H Respiratory 22 H Rate Blood Pressure 96/70 L O2 Sat by Pulse 95 Oximetry Oxygen Delivery Nasal Cannula Method ( includes room air) Oxygen Flow 3 Rate HEAD: Is atraumatic normocephalic. EYES: Pupils are equal round regular reactive to light accommodation. Extraocular movements are normal. There is no conjunctival pallor. There is no scleral icterus. EARS: Tympanic membranes are intact. External auditory canals are clear. NOSE: There is no deviated nasal septum. There is no inflammation of the nasal mucous membrane. MOUTH: Mucous noted in the mouth are moist tongue is moist. There is no ulcers. There is no bleeding from the gums. THROAT: There is no redness of the oropharynx. There is no exudates. SKIN: There is no skin rashes or skin lesions. There is no particular ecchymosis. NECK: Is supple. There is JVD present carotids are equal there is no bruits. There is no lymphadenopathy. There is no goiter. There is no accessory muscle respiration use. Trachea central LUNGS: There is diminished air entry and prolonged expiration. On percussion there is hyperresonance. He has scattered rhonchi and few end expiratory wheezing. He has dry crackles in both the bases along with fine rales of CHF. HEART: S1-S2 is heard. S1 is of normal intensity. There is no S3 gallop. There is no S4 gallop. There is systolic murmur left sternal border and the apex there is no rub. ABDOMEN: Is obese. Nontender. There is no hepatosplenomegaly. Bowel sounds are well heard. There is no tender areas . There is right inguinal hernia present. EXTREMITIES: Femorals are deep. Femorals are diminished. Leg pulses are diminished. There is 2 + bilateral pedal edema present. There is no DVT. There is no cellulitis. There is no calf tenderness. There is no sinus or clubbing. Capillary refill is normal. [employer]: The patient is conscious awake alert oriented x3 with no focal deficits. PSYCHIATRIC: The patient judgment insight are intact, and his affect is normal. The patient's 24-hour intake is 3191 The patient's output is 1475 ml. IMPRESSION/RECOMMENDATION: 1. Acute on chronic respiratory failure: This is a combination of acute exacerbation of COPD, pneumonia, bronchitis, and congestive heart failure. 2. Acute on chronic systolic left and right systolic heart failure: Last night the patient had hypotension and the patient's dobutamine was decreased from 5 mcg/kg/min to 2.5 mcg/kg/min and the dopamine was increased to 5 mcg/kg/min. Continue the patient on beta-sarina and MILAGRO inhibitor. Continue diuretics. 3 Acute exacerbation of COPD. And left lower lobe pneumonia: Continue antibiotics continue respiratory treatments and oxygen. 4 Nonsustained ventricular tachycardia: Patient magnesium was low this is being replaced. But in view of the patient's severe LV dysfunction will start the patient on amiodarone p.o. especially in view of the patient being on inotropic agents. 5. 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 Continue anti-cardiomyopathy treatment as per gold standard which is being done. 6.oronary artery disease: History of myocardial infarction in the past: No evidence of anginal symptoms. The patient had resting part of the stress test Cardiolite done today. Later when the patient's heart failure stabilized will do stress Cardiolite stress test later. 7 Multifocal atrial tachycardia: We will see if amiodarone will work for this. The patient's Cardizem drip not started due to patient's soft blood pressure. 8 Hypertension: At present blood pressure is on the lower side, but is acceptable. 9.History of cirrhosis of the liver: Secondary to chronic alcohol abuse. 10. Hypomagnesemia. Will replace magnesium. 11. Anemia patient receiving blood transfusion. 12. History of alcohol abuse and tobacco abuse disorder. Ill effects of alcohol and tobacco have been discussed with the patient tobacco cessation counseling was done. This took about 4 minutes. 13.. Hyperlipidemia: Due to its interaction simvastatin has been discontinued and the patient has been started on atorvastatin. 14. Noncompliance with medication and lifestyle, diet and physicians office visits. Medications reviewed. Medications adjusted. Medical regimen and management plan discussed with attending physician. Medical decision making is of high complexity. 40 minutes spent as patient with more than 50% of time spent direct patient care. Will follow.
[2020-01-14] MEDS ORDERED: ATORVASTATIN CALCIUM 40 MG TABLET PO SCH (22:00)
[2020-01-15] MEDS: MORPHINE SULFATE 10 MG/ML INJ IV PRN ×5 (01:55→22:57)
[2020-01-15 02:23] LABS: ABSOLUTE BASOPHILS # (AUTO) 0.1 10^3/uL (0.0-0.2); ABSOLUTE EOSINOPHILS # (AUTO) 0.5 10^3/uL (0.0-0.6); ABSOLUTE LYMPHOCYTES (AUTO) 1.2 10^3/uL (0.5-4.7); ABSOLUTE NEUT (AUTO) 8.5 10^3/uL (1.7-8.2); BASOPHILS % (AUTO) 1.1 % (0-2); EOSINOPHILS % (AUTO) 4.2 % (0-6); HEMATOCRIT 30.1 % (37.9-51.0); HEMOGLOBIN 9.8 g/dL (13.5-17.0); LYMPHOCYTES % (AUTO) 10.5 % (13-45); MEAN CORPUSCULAR HGB CONC 32.6 g/dL (32.0-36.0); MEAN CORPUSCULAR VOLUME 80 fl (80-97); PLATELET COUNT 218 10^3/uL (150-450); RED BLOOD COUNT 3.77 10^6/uL (4.35-5.55); RED CELL DISTRIBUTION WIDTH 17.8 % (11.5-14.0); SEGMENTED NEUTROPHILS % (AUTO) 75.2 % (42-78); TOTAL CELLS COUNTED % (AUTO) 100 %; WHITE BLOOD COUNT 11.3 10^3/uL (4.0-10.5)
[2020-01-15] MEDS: IPRATROPIUM/ALBUTEROL 0.5-2.5 MG/3 ML AMPUL NEB PRN ×2 (05:36→11:07)
[2020-01-15] MEDS: GABAPENTIN 400 MG CAPSULE PO SCH ×3 (06:07→21:47)
[2020-01-15] MEDS: HEPARIN SOD (PORCINE) 5,000 UNIT/ML 1 ML VIAL SUBCUT SCH ×3 (06:07→21:51)
[2020-01-15 06:53] LABS: HEMATOCRIT 30.3 % (37.9-51.0); MEAN CORPUSCULAR HEMOGLOBIN 26.7 pg (27.0-33.4); MEAN CORPUSCULAR HGB CONC 32.8 g/dL (32.0-36.0); MEAN CORPUSCULAR VOLUME 82 fl (80-97); PLATELET COUNT 221 10^3/uL (150-450); RED BLOOD COUNT 3.72 10^6/uL (4.35-5.55); RED CELL DISTRIBUTION WIDTH 18.1 % (11.5-14.0); WHITE BLOOD COUNT 11.6 10^3/uL (4.0-10.5)
[2020-01-15 07:14] LABS: ANION GAP 6 (5-19); BLOOD UREA NITROGEN 23 mg/dL (7-20); CALCIUM 7.7 mg/dL (8.4-10.2); CARBON DIOXIDE 31 mmol/L (22-30); CHLORIDE 95 mmol/L (98-107); GLUCOSE 122 mg/dL (75-110); POTASSIUM 4.8 mmol/L (3.6-5.0)
[2020-01-15] MEDS: FLUTICASONE/VILANTEROL 200-25 MCG/DOSE IH SCH (10:18)
[2020-01-15] MEDS: AMIODARONE HCL 200 MG TABLET PO SCH ×2 (11:06→21:49)
[2020-01-15] MEDS: POTASSIUM CHLORIDE 10 MEQ TABLET.ER PO SCH ×2 (11:06→21:51)
[2020-01-15] MEDS: METOPROLOL SUCCINATE 25 MG TAB.SR.24H PO SCH ×2 (11:07→21:49)
[2020-01-15] MEDS: VITAMIN B COMPLEX TABLET PO SCH (11:07)
[2020-01-15] MEDS: LISINOPRIL 5 MG TABLET PO SCH (11:07)
[2020-01-15] MEDS: FOLIC ACID 1 MG TABLET PO SCH (11:07)
[2020-01-15] MEDS: MAGNESIUM OXIDE 400 MG TABLET PO SCH ×2 (11:07→17:04)
[2020-01-15] MEDS: FUROSEMIDE INJ/PF 20 MG/2 ML SDV IV SCH (11:07)
[2020-01-15] MEDS: LEVOFLOXACIN 750 MG/D5W RTU 750 MG/150 ML RTUPB IV SCH (11:08)
[2020-01-15] MEDS: LEVOFLOXACIN 750 MG TABLET PO SCH (13:46)
[2020-01-15] MEDS: LEVALBUTEROL HCL NEB 0.63 MG/3 ML AMPUL NEB SCH ×3 (14:21→19:49)
[2020-01-15] MEDS: HYDROCORTISONE SOD SUCCINATE INJ/PF 100 MG/2 ML SDV IV SCH ×2 (14:46→21:45)
--- NOTE | 2020-01-15 15:27 | PDOC PROGRESS REPORT ---
Subjective Progress Note for:: 01/15/20 Subjective:: The patient states that he feels a little better today. He still having significant discomfort in the right inguinal area from his hernia. His breathing appears to be comfortable. He feels less congested than yesterday. Reason For Visit: COMMUNITY AQUIRED PNEUMONIA,COPD,CIRRHOSIS OF LIVE Physical Exam Vital Signs: Temp Pulse Resp BP Pulse Ox 98.4 F 105 H 19 96/67 L 94 01/15/20 12:00 01/15/20 14:21 01/15/20 14:21 01/15/20 13:00 01/15/20 14:21 Intake & Output 01/14/20 01/15/20 01/16/20 06:59 06:59 06:59 Intake Total 3191 3196 150 Output Total 1475 1705 Balance 1716 1491 150 Weight 72.5 kg 75.2 kg General appearance: PRESENT: cooperative, mild distress, well-developed Head exam: PRESENT: atraumatic, normocephalic Respiratory exam: PRESENT: prolonged expiratory phas, rhonchi - Left side, symmetrical, unlabored, wheezes - Faint expiratory wheezes. ABSENT: accessory muscle use, tachypnea Cardiovascular exam: PRESENT: RRR, +S1, +S2 GI/Abdominal exam: PRESENT: distended, normal bowel sounds, soft. ABSENT: tenderness - I did stay away from the right inguinal area as this is where his pain from his hernia is Rectal exam: PRESENT: deferred Gentrourinary exam: PRESENT: indwelling catheter Extremities exam: PRESENT: +2 edema Neurological exam: PRESENT: alert, awake, oriented to person, oriented to place, oriented to time, oriented to situation, CN II-XII grossly intact. ABSENT: altered Psychiatric exam: PRESENT: anxious, flat affect. ABSENT: agitated Focused psych exam: ABSENT: delusional, paranoid, restlessness Skin exam: PRESENT: dry - Very dry itchy skin Results Laboratory Results: 01/15/20 06:17 01/15/20 06:17 01/14/20 01/15/20 01/15/20 09:57 01:58 06:17 WBC 11.3 H RBC 3.77 L Hgb 9.8 L Hct 30.1 L MCV 80 MCH 26.0 L MCHC 32.6 RDW 17.8 H Plt Count 218 Seg Neutrophils % 75.2 Sodium 131.8 L Potassium 4.8 Chloride 95 L Carbon Dioxide 31 H Anion Gap 6 BUN 23 H Creatinine 0.66 Est GFR ( Amer) > 60 Glucose 122 H Calcium 7.7 L Magnesium 1.7 Blood Type O POSITIVE Antibody Screen NEGATIVE 01/15/20 06:17 WBC 11.6 H RBC 3.72 L Hgb 10.0 L Hct 30.3 L MCV 82 MCH 26.7 L MCHC 32.8 RDW 18.1 H Plt Count 221 Seg Neutrophils % Sodium Potassium Chloride Carbon Dioxide Anion Gap BUN Creatinine Est GFR ( Amer) Glucose Calcium Magnesium Blood Type Antibody Screen 01/12/20 11:34 CK-MB (CK-2) 2.08 Troponin I 0.040 NT-Pro-B Natriuret Pep 14096 H Impressions: Chest X-Ray 01/14/20 06:00 IMPRESSION: 1. Left basilar opacity and small left pleural effusion are stable. 2. Cardiomegaly Assessment and Plan - Diagnosis (1) Acute on chronic combined systolic and diastolic congestive heart failure Is this a current diagnosis for this admission?: Yes Plan: 01/12/20 The patient was just discharged on December 10 from [facility]. At that time he presented with the same diagnosis of acute on chronic heart failure. He did require dobutamine and dopamine. He states that his breathing difficulties never significantly improved from his discharge and he noticed increased swelling of his legs. He had an echocardiogram last month that showed an ejection fraction of 20% with grade 1/4 diastolic failure and moderate pulmonary hypertension. He presented for a preoperative stress test today but when he arrived Dr. Sandoval evaluated him and deemed him not only cecy ppropriate for the stress test but requiring admission. After discussion with Dr. Sandoval the patient was placed on dobutamine infusion. We will resume his other cardiac medications when his blood pressure will tolerate. He is getting oxygen supplementation. 01/13/2020 The patient continues on dobutamine. His blood pressures his map continues to remain greater than 70. We will continue current regimen. Please also see Dr. Sandoval's note as cardiology is consulting. 01/14/2020 The patient is now on dobutamine and dopamine. His hemoglobin has been trickling down and is 8.2. I feel he will benefit from a unit of packed red blood cells. I did explain this to the patient and he is in agreement. Continue diuretic therapy as tolerated. We will try to increase metoprolol to 12.5 mg every 8 hours. Low-dose morphine is available for difficulty breathing. 01/15/2020 The patient is now on dobutamine, dopamine and amiodarone infusions. He states that he is feeling somewhat better. He feels that his breathing is better. He still has a positive fluid balance. Dr. Sandoval has started him on a 1.2 L fluid restriction. We will continue to monitor his intake and output. Continue low-dose lisinopril, metoprolol and his furosemide. Continue to monitor on telemetry. His metoprolol is 25 mg every 12 hours. His pulse is still typically greater than 100. Consider every 8 hours if his blood pressures will tolerate. (2) Left lower lobe pneumonia Qualifiers: Pneumonia type: due to unspecified organism Qualified Code(s): J18.9 - Pneumonia, unspecified organism Is this a current diagnosis for this admission?: Yes Plan: 01/12/2020 The patient will continue a course of levofloxacin for possible pneumonia. He was just ending hospital a month ago. He does not have an elevated white blood cell count but that does not necessarily rule out an infectious process. It is very possible for him to have 2 pulmonary etiologies at once. We will continue to monitor closely, continue antibiotics and provide symptom support. 01/13/2020 Continue antibiotics at this time. 01/14/2020 Continue levofloxacin 01/15/2020 On levofloxacin through January 20, 2020 (3) Hypotension Qualifiers: Hypotension type: other hypotension type Qualified Code(s): I95.89 - Other hypotension Is this a current diagnosis for this admission?: Yes Plan: 01/12/2020 His hypotension is cardiogenic. He is hovering with his systolic blood pressure mostly in the 90s. IV dobutamine will be started which will help his cardiac output and his blood pressure. 01/13/2020 Continue dobutamine. Resume other cardiac medications when clinically appropriate. 01/14/2020 Now on dopamine and dobutamine. Adjusting medications judiciously based on blood pressures 01/15/2020 Due to his very poor ejection fraction. Amiodarone has been added to the dopamine and dobutamine infusions. Judicious use of lisinopril, furosemide and metoprolol. As always we appreciate Dr. Sandoval's input. (4) Hypokalemia Is this a current diagnosis for this admission?: Yes Plan: 01/12/2020 I will initiate oral potassium supplementation. We will monitor his labs closely. Diuresis will be dose adjusted based on his intake and output as well as his clinical presentation. 01/13/2020 Serum potassium now normal. Continue supplementation. 01/14/2020 Potassium is just in the low normal range. Will increase potassium chloride gonsales pplement to 20 mEq twice a day 01/15/2020 With 20 mEq twice a day his serum potassium is now 4.6. Will repeat labs tomorrow. We may be able to cut back to 20 mEq once a day. (5) Hyponatremia Is this a current diagnosis for this admission?: Yes Plan: 01/12/2020 The hyponatremia is most likely due to his chronic cardiac issues. We will monitor the sodium levels. 01/13/2020 Hyponatremia is chronic and stable. Monitor with routine labs. 01/14/2020 Sodium is still under the normal limit but stable 01/15/2020 Serum sodium is 131. We will continue to monitor. Hyponatremia secondary to his heart failure with contributing presence of furosemide. (6) Macrocytic anemia Is this a current diagnosis for this admission?: Yes Plan: 01/12/2020 Possibly related to his history of alcohol use. He does utilize vitamin B12 and folic acid at home. I will institute daily doses of both. 01/13/2020 Hemoglobin remains less than 9.0. With his current cardiac status if he has a 3 0-day less than 9.0 I will discuss possible transfusion. This may help with oxygenation and perfusion. 01/14/2020 Continue vitamin supplements. His hemoglobin is down to 8.2. I have ordered 1 unit of packed red blood cells. 01/15/2020 The patient tolerated the 1 unit of packed red blood cells. His hemoglobin is now just above 10.0. I would like to keep his hemoglobin definitely above 9.0 and if possible above 10.0 as this will improve perfusion. This could be contributing to his feeling slightly better today. (7) COPD (chronic obstructive pulmonary disease) Qualifiers: COPD type: unspecified COPD Qualified Code(s): J44.9 - Chronic obstructive pulmonary disease, unspecified Is this a current diagnosis for this admission?: Yes Plan: 01/12/2020 The patient has 2 pulmonary processes (heart failure and pneumonia) not counting the COPD. We will continue his inhaler regimen but at this time I have not ordered systemic steroids. As needed nebulizers will be available also. 01/13/2020 He is on 3 L nasal cannula today. We will continue to monitor his pulse oximetr y and taper his oxygen tolerated. 01/14/2020 Continue current inhaler regimen and oxygen supplementation 01/15/2020 The patient does not do well with a powder inhaler. We will increase the frequency of his scheduled nebulizer treatments. For uniformity we will administer Xopenex and ipratropium nebulizers every 6 hours with Xopenex every 3 hours if needed. We will also get budesonide with the duo nebs every 12 hours. He is also started on hydrocortisone 50 mg by intravenous every 8 hours. (8) Hernia, inguinal, right Is this a current diagnosis for this admission?: Yes Plan: 01/12/2020 The patient was in the middle of a preop evaluation to get his inguinal hernia repaired. Because of his cardiac status this will be delayed. We will consult surgery if clinically required. 01/15/2020 Continue to treat the pain. Currently trying to improve his cardiac status before considering surgical herniorrhaphy. (9) Abdominal pain Qualifiers: Abdominal location: generalized Qualified Code(s): R10.84 - Generalized abdominal pain Is this a current diagnosis for this admission?: Yes Plan: 01/12/2020 Secondary to his hernia. Symptomatic treatment at this time. 01/15/2020 Continue supportive/symptomatic treatment - Plan Summary Summary: 01/12/2020 The patient has diabetes listed on his problem list however his last 2 hemoglobin A1c's were both below 5.0. In addition he has hypothyroidism listed. His TSH and free T4 were both normal and his free T3 was found to be below the lower limit normal however he is not on any thyroid replacement at this time. I will discuss with cardiology and consider - Time Time Spent with patient: 15-24 minutes Medications reviewed and adjusted accordingly: Yes Anticipated discharge: Home
[2020-01-15] MEDS ORDERED: IPRATROPIUM BROMIDE 0.02% NEB 0.5 MG/2.5 ML AMPUL NEB SCH (16:00)
[2020-01-15] MEDS: PANTOT AC/MIN OIL/PET HY-PHL OINT 50 GM TOP SCH (17:04)
[2020-01-15] MEDS: IPRATROPIUM BROMIDE 0.02% NEB 0.5 MG/2.5 ML AMPUL NEB SCH ×4 (17:06→19:50)
[2020-01-15] MEDS ORDERED: LEVALBUTEROL HCL NEB 0.63 MG/3 ML AMPUL NEB PRN (17:20)
--- NOTE | 2020-01-15 19:26 | Progress Note ---
Provider Note Provider Note: CARDIOLOGY PROGRESS NOTE by Dr. Lorenza Goddard on 01/15/2020. OBJECTIVE: The patient states is marginally better with regards to shortness of breath. He has no chest pain or discomfort. He continues to wheeze. His leg edema is slightly improved but still has 1+ edema bilaterally. He denies any PND orthopnea. His multifocal atrial tachycardia heart rate at the most is about 105 bpm. Hence we will continue the patient's amiodarone. The patient states he is not tolerating Breo which has been's prescribed since we do not have Symbicort. Also the patient's DuoNeb has been prescribed at every 6 hours and the patient is wanting more increased treatment with nebulizers. Hence we will stop the patient's DuoNeb and start the patient on Xopenex and negative every 4 hours. Also the patient in view of the patient's continued wheezing will start the patient on Solu-Cortef. This choices over Solu-Medrol since Solu-Cortef is more mineralocorticoid. This may help in getting the patient's blood pressure up. There is no TIA CVA symptoms. The patient not complaining of any right hernia pain. Physical EXAMINATION: The patient appears to be a frail build and appears to be chronically ill. Selected Entries 01/15/20 12:00 Temperature 98.4 F Temperature Oral Source Pulse Rate 116 H Respiratory 18 Rate Blood Pressure 103/67 [Right Upper Arm] Blood Pressure 79 Mean [Right Upper Arm] Blood Pressure Supine Position [Right Upper Arm] O2 Sat by Pulse 99 Oximetry Oxygen Delivery Nasal Cannula Method ( includes room air) Oxygen Flow 3 Rate HEAD: Is atraumatic normocephalic. EYES: Pupils are equal round regular reactive to light accommodation. Extraocular movements are normal. There is no conjunctival pallor. There is no scleral icterus. EARS: Tympanic membranes are intact. External auditory canals are clear. NOSE: There is no deviated nasal septum. There is no inflammation of the nasal mucous membrane. MOUTH: Mucous noted in the mouth are moist tongue is moist. There is no ulcers. There is no bleeding from the gums. THROAT: There is no redness of the oropharynx. There is no exudates. SKIN: There is no skin rashes or skin lesions. There is no particular ecchymosis. NECK: Is supple. There is JVD present carotids are equal there is no bruits. There is no lymphadenopathy. There is no goiter. There is no accessory muscle respiration use. Trachea central LUNGS: There is diminished air entry and prolonged expiration. On percussion there is hyperresonance. He has scattered rhonchi and few end expiratory wheezing. He has dry crackles in both the bases along with fine rales of CHF. HEART: S1-S2 is heard. S1 is of normal intensity. There is no S3 gallop. There is no S4 gallop. There is systolic murmur left sternal border and the apex there is no rub. ABDOMEN: Is obese. Nontender. There is no hepatosplenomegaly. Bowel sounds are well heard. There is no tender areas . There is right inguinal hernia present. EXTREMITIES: Femorals are deep. Femorals are diminished. Leg pulses are diminished. There is 2 + bilateral pedal edema present. There is no DVT. There is no cellulitis. There is no calf tenderness. There is no sinus or clubbing. Capillary refill is normal. STUDY MANAGER: The patient is conscious awake alert oriented x3 with no focal deficits. PSYCHIATRIC: The patient judgment insight are intact, and his affect is normal. The patient's 24-hour intake is 1305 mL. Output is 725 mL. Labs- All tests 24 hr 01/14/20 01/15/20 01/15/20 09:57 01:58 06:17 WBC 11.3 H RBC 3.77 L Hgb 9.8 L Hct 30.1 L MCV 80 MCH 26.0 L MCHC 32.6 RDW 17.8 H Plt Count 218 Lymph % (Auto) 10.5 L Mccracken % (Auto) 9.0 Eos % (Auto) 4.2 Baso % (Auto) 1.1 Absolute Neuts (auto) 8.5 H Absolute Lymphs (auto) 1.2 Absolute Monos (auto) 1.0 Absolute Eos (auto) 0.5 Absolute Basos (auto) 0.1 Seg Neutrophils % 75.2 Sodium 131.8 L Potassium 4.8 Chloride 95 L Carbon Dioxide 31 H Anion Gap 6 BUN 23 H Creatinine 0.66 Est GFR ( Amer) > 60 Est GFR (MDRD) Non-Af > 60 Glucose 122 H POC Glucose Calcium 7.7 L Magnesium 1.7 Blood Type O POSITIVE Antibody Screen NEGATIVE Crossmatch See Detail 01/15/20 01/15/20 06:17 08:04 WBC 11.6 H RBC 3.72 L Hgb 10.0 L Hct 30.3 L MCV 82 MCH 26.7 L MCHC 32.8 RDW 18.1 H Plt Count 221 Lymph % (Auto) Mccracken % (Auto) Eos % (Auto) Baso % (Auto) Absolute Neuts (auto) Absolute Lymphs (auto) Absolute Monos (auto) Absolute Eos (auto) Absolute Basos (auto) Seg Neutrophils % Sodium Potassium Chloride Carbon Dioxide Anion Gap BUN Creatinine Est GFR ( Amer) Est GFR (MDRD) Non-Af Glucose POC Glucose 116 H Calcium Magnesium Blood Type Antibody Screen Crossmatch Chest X-Ray 01/12/20 10:28 IMPRESSION: Left lower lobe pneumonia. No significant change. Chest X-Ray 01/12/20 11:41 IMPRESSION: NO PNEUMOTHORAX FOLLOWING CENTRAL LINE PLACEMENT. Chest X-Ray 01/14/20 06:00 IMPRESSION: 1. Left basilar opacity and small left pleural effusion are stable. 2. Cardiomegaly IMPRESSION/RECOMMENDATION: 1. Acute on chronic respiratory failure: This is a combination of acute exacerbation of COPD, pneumonia, bronchitis, and congestive heart failure. 2. Acute on chronic systolic left and right systolic heart failure: Continue the patient on beta-sarina and MILAGRO inhibitor. Continue diuretics. At present the patient is on dobutamine at 2.5 mcg/kg/min and dopamine at 5 mcg/kg/min. We will continue the same. 3 Acute exacerbation of COPD. And left lower lobe pneumonia: Continue antibiotics continue respiratory treatments and oxygen. Continue patient on antibiotics. The patient does not want to be on Breo which was prescribed since we do not have Symbicort. In view of the patient continued wheezing will change the patient respiratory treatments to Xopenex and discontinue the patient's DuoNeb's. The patient's air is wanting more than the every 6 hours interval of nebulized treatments. We will also add Solu-Cortef since this has a little more mineralocorticoid and may help in getting the patient's blood pressure up. This is in view of the patient's continued wheezing. 4 Nonsustained ventricular tachycardia: Patient magnesium was low this is being replaced. But in view of the patient's severe LV dysfunction will start the patient on amiodarone p.o. especially in view of the patient being on inotropic agents. There is no recurrence. 5. 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 Continue anti-cardiomyopathy treatment as per gold standard which is being done. 6.oronary artery disease: History of myocardial infarction in the past: No evidence of anginal symptoms. The patient had resting part of the stress test Cardiolite done today. Later when the patient's heart failure stabilized will do stress Cardiolite stress test later. 7 Multifocal atrial tachycardia: With amiodarone the patient's heart rate is just above 100. We will continue amiodarone. 8 Hypertension: At present blood pressure is on the lower side, but is acceptable. 9.History of cirrhosis of the liver: Secondary to chronic alcohol abuse. 10. Hypomagnesemia. Will replace magnesium. 11. Anemia patient receiving blood transfusion. 12. History of alcohol abuse and tobacco abuse disorder. Ill effects of alcohol and tobacco have been discussed with the patient tobacco cessation counseling was done. This took about 4 minutes. 13.. Hyperlipidemia: Due to its interaction simvastatin has been discontinued and the patient has been started on atorvastatin. 14. Noncompliance with medication and lifestyle, diet and physicians office visits. Medications reviewed. Medications adjusted. Medical regimen and management plan discussed with attending physician. Medical decision making is of high complexity. 40 minutes spent as patient with more than 50% of time spent direct patient care. Will follow.
[2020-01-15] MEDS: BUDESONIDE NEB 0.5 MG/2 ML AMPUL NEB SCH (19:49)
[2020-01-15] MEDS: LORAZEPAM 1 MG TABLET PO PRN (21:47)
[2020-01-15] MEDS: ATORVASTATIN CALCIUM 20 MG TABLET PO SCH (21:49)
[2020-01-16] MEDS ORDERED: MAGNESIUM HYDROXIDE SUSP 30 ML UDCUP PO PRN (01:10)
[2020-01-16] MEDS: LEVALBUTEROL HCL NEB 0.63 MG/3 ML AMPUL NEB SCH ×4 (01:46→20:33)
[2020-01-16] MEDS: IPRATROPIUM BROMIDE 0.02% NEB 0.5 MG/2.5 ML AMPUL NEB SCH ×4 (01:46→20:33)
[2020-01-16] MEDS: HYDROCORTISONE SOD SUCCINATE INJ/PF 100 MG/2 ML SDV IV SCH ×3 (06:39→21:46)
[2020-01-16] MEDS: HEPARIN SOD (PORCINE) 5,000 UNIT/ML 1 ML VIAL SUBCUT SCH ×3 (06:40→21:46)
[2020-01-16] MEDS: GABAPENTIN 400 MG CAPSULE PO SCH ×4 (07:08→21:40)
[2020-01-16 07:17] LABS: HEMATOCRIT 27.6 % (37.9-51.0); HEMOGLOBIN 9.2 g/dL (13.5-17.0); MEAN CORPUSCULAR HEMOGLOBIN 27.1 pg (27.0-33.4); MEAN CORPUSCULAR HGB CONC 33.4 g/dL (32.0-36.0); MEAN CORPUSCULAR VOLUME 81 fl (80-97); PLATELET COUNT 162 10^3/uL (150-450); RED CELL DISTRIBUTION WIDTH 18.3 % (11.5-14.0); WHITE BLOOD COUNT 7.6 10^3/uL (4.0-10.5)
[2020-01-16 07:28] LABS: ANION GAP 5 (5-19); BLOOD UREA NITROGEN 23 mg/dL (7-20); CALCIUM 7.9 mg/dL (8.4-10.2); CARBON DIOXIDE 30 mmol/L (22-30); CHLORIDE 96 mmol/L (98-107); GLUCOSE 160 mg/dL (75-110); POTASSIUM 4.5 mmol/L (3.6-5.0)
[2020-01-16] MEDS: BUDESONIDE NEB 0.5 MG/2 ML AMPUL NEB SCH ×2 (07:43→20:33)
[2020-01-16] MEDS ORDERED: LEVOFLOXACIN 750 MG TABLET PO SCH (10:00)
[2020-01-16] MEDS: FOLIC ACID 1 MG TABLET PO SCH (10:53)
[2020-01-16] MEDS: POTASSIUM CHLORIDE 10 MEQ TABLET.ER PO SCH ×2 (10:53→21:44)
[2020-01-16] MEDS: LISINOPRIL 5 MG TABLET PO SCH (10:53)
[2020-01-16] MEDS: VITAMIN B COMPLEX TABLET PO SCH (10:53)
[2020-01-16] MEDS: LORAZEPAM 1 MG TABLET PO PRN ×2 (10:53→21:44)
[2020-01-16] MEDS: MAGNESIUM OXIDE 400 MG TABLET PO SCH ×2 (10:53→17:06)
[2020-01-16] MEDS: FUROSEMIDE INJ/PF 20 MG/2 ML SDV IV SCH (10:53)
[2020-01-16] MEDS: AMIODARONE HCL 200 MG TABLET PO SCH ×2 (10:53→21:44)
[2020-01-16] MEDS: METOPROLOL SUCCINATE 25 MG TAB.SR.24H PO SCH ×2 (10:53→21:45)
[2020-01-16] MEDS: MORPHINE SULFATE 10 MG/ML INJ IV PRN ×2 (10:54→21:44)
[2020-01-16] MEDS: PANTOT AC/MIN OIL/PET HY-PHL OINT 50 GM TOP SCH ×2 (10:56→17:06)
[2020-01-16] MEDS: LEVOFLOXACIN 750 MG TABLET PO SCH (14:21)
--- NOTE | 2020-01-16 15:31 | Progress Note ---
Provider Note Provider Note: CARDIOLOGY PROGRESS NOTE by Dr. Lorenza Sandoval on 04/17/2020. SUBJECTIVE: The patient states his breathing is marginally improved but still does have some wheezing. He is still has some cough but less so and that there is scanty yellowish sputum production. He denies any chest pain or discomfort. There is no PND orthopnea. His leg edema is slightly improved but his intake is more than result put. There is no arrhythmia seen on the monitor. There is no TIA CVA symptoms. He denies any chest pain or discomfort. PHYSICAL EXAMINATION: The patient is appears to be a frail build and appears to be chronically ill and malnourished. Selected Entries 01/16/20 01/16/20 08:00 08:36 Temperature 97.3 F Temperature Oral Source Pulse Rate 97 Respiratory 16 Rate Blood Pressure 111/70 O2 Sat by Pulse 98 Oximetry Oxygen Flow 3.00 Rate Oxygen Delivery Nasal Cannula Method HEAD: Is atraumatic normocephalic. EYES: Pupils are equal round regular reactive to light accommodation. Extraocular movements are normal. There is no conjunctival pallor. There is no scleral icterus. EARS: Tympanic membranes are intact. External auditory canals are clear. NOSE: There is no deviated nasal septum. There is no inflammation of the nasal mucous membrane. MOUTH: Mucous noted in the mouth are moist tongue is moist. There is no ulcers. There is no bleeding from the gums. THROAT: There is no redness of the oropharynx. There is no exudates. SKIN: There is no skin rashes or skin lesions. There is no particular ecchymosis. NECK: Is supple. There is JVD present carotids are equal there is no bruits. There is no lymphadenopathy. There is no goiter. There is no accessory muscle respiration use. Trachea central LUNGS: There is diminished air entry and prolonged expiration. On percussion there is hyperresonance. He has scattered rhonchi and few end expiratory wheezing. He has dry crackles in both the bases along with fine rales of CHF. HEART: S1-S2 is heard. S1 is of normal intensity. There is no S3 gallop. There is no S4 gallop. There is systolic murmur left sternal border and the apex there is no rub. ABDOMEN: Is obese. Nontender. There is no hepatosplenomegaly. Bowel sounds are well heard. There is no tender areas . There is right inguinal hernia present. EXTREMITIES: Femorals are deep. Femorals are diminished. Leg pulses are diminished. There is 2 + bilateral pedal edema present. There is no DVT. There is no cellulitis. There is no calf tenderness. There is no sinus or clubbing. Capillary refill is normal. 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 PSYCHIATRIC: The patient judgment insight are intact, and his affect is normal. The patient's 24-hour intake is 1755 mL. Output is 1450 mL. Labs- All tests 24 hr 01/16/20 01/16/20 06:35 06:35 WBC 7.6 RBC 3.40 L Hgb 9.2 L Hct 27.6 L MCV 81 MCH 27.1 MCHC 33.4 RDW 18.3 H Plt Count 162 Sodium 131.0 L Potassium 4.5 Chloride 96 L Carbon Dioxide 30 Anion Gap 5 BUN 23 H Creatinine 0.59 Est GFR ( Amer) > 60 Est GFR (MDRD) Non-Af > 60 Glucose 160 H Calcium 7.9 L Magnesium 1.7 Chest X-Ray 01/12/20 10:28 IMPRESSION: Left lower lobe pneumonia. No significant change. Chest X-Ray 01/12/20 11:41 IMPRESSION: NO PNEUMOTHORAX FOLLOWING CENTRAL LINE PLACEMENT. Chest X-Ray 01/14/20 06:00 IMPRESSION: 1. Left basilar opacity and small left pleural effusion are stable. 2. Cardiomegaly IMPRESSION/RECOMMENDATION: 1. Acute on chronic respiratory failure: This is a combination of acute exacerbation of COPD, pneumonia, bronchitis, and congestive heart failure. 2. Acute on chronic systolic left and right systolic heart failure: Continue the patient on beta-sarina and MILAGRO inhibitor. Continue diuretics. At present the patient is on dobutamine at 2.5 mcg/kg/min and dopamine at 5 mcg/kg/min. We will continue the same. 3 Acute exacerbation of COPD. And left lower lobe pneumonia: Continue antibiotics continue respiratory treatments and oxygen. Continue patient on antibiotics. The patient does not want to be on Breo which was prescribed since we do not have Symbicort. In view of the patient continued wheezing will change the patient respiratory treatments to Xopenex and discontinue the patient's DuoNeb's. The patient's air is wanting more than the every 6 hours interval of nebulized treatments. We will also add Solu-Cortef since this has a little more mineralocorticoid and may help in getting the patient's blood pressure up. This is in view of the patient's continued wheezing. 4 Nonsustained ventricular tachycardia: Patient magnesium was low this is being replaced. But in view of the patient's severe LV dysfunction will start the patient on amiodarone p.o. especially in view of the patient being on inotropic agents. There is no recurrence. 5. 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 Continue anti-cardiomyopathy treatment as per gold standard which is being done. 6.oronary artery disease: History of myocardial infarction in the past: No evidence of anginal symptoms. The patient had resting part of the stress test Cardiolite done today. Later when the patient's heart failure stabilized will do stress Cardiolite stress test later. 7 Multifocal atrial tachycardia: With amiodarone the patient's heart rate is just above 100. We will continue amiodarone. 8 Hypertension: At present blood pressure is on the lower side, but is acceptable. 9.History of cirrhosis of the liver: Secondary to chronic alcohol abuse. 10. Hypomagnesemia. Will replace magnesium. 11. Anemia patient receiving blood transfusion. 12. History of alcohol abuse and tobacco abuse disorder. Ill effects of alcohol and tobacco have been discussed with the patient tobacco cessation counseling was done. This took about 4 minutes. 13.. Hyperlipidemia: Due to its interaction simvastatin has been discontinued and the patient has been started on atorvastatin. 14. Noncompliance with medication and lifestyle, diet and physicians office visits. Medications reviewed. Medications adjusted. Medical regimen and management plan discussed with attending physician. Medical decision making is of high complexity. 40 minutes spent as patient with more than 50% of time spent direct patient care. Will follow.
--- NOTE | 2020-01-16 15:33 | PDOC PROGRESS REPORT ---
Subjective Progress Note for:: 01/16/20 Subjective:: Patient was seen morning rounds. He was found resting in bed, comfortably, on supplemental oxygen at 3 L/min; uses 3lpm at baseline. He reports continued right inguinal hernia pain; request that I asked his nurse for pain medication. Otherwise, he reports that he is feeling much better and is looking forward to cardiac clearance so that he can have his hernia surgery. He specifically denies fever, chest pain, palpitations, dyspnea, orthopnea, nausea and vomiting. He has no other questions or concerns at this time. No concerns per nursing. Reason For Visit: COMMUNITY AQUIRED PNEUMONIA,COPD,CIRRHOSIS OF LIVE Physical Exam Vital Signs: Temp Pulse Resp BP Pulse Ox 97.9 F 92 18 108/60 96 01/16/20 11:43 01/16/20 13:59 01/16/20 13:59 01/16/20 13:00 01/16/20 13:59 Intake & Output 01/15/20 01/16/20 01/17/20 06:59 06:59 06:59 Intake Total 3196 1755 472 Output Total 1705 1450 Balance 1491 305 472 Weight 75.2 kg 75 kg General appearance: PRESENT: no acute distress, cooperative, well-developed, well-nourished Head exam: PRESENT: atraumatic, normocephalic Eye exam: PRESENT: conjunctiva pink, EOMI, PERRLA. ABSENT: scleral icterus Mouth exam: PRESENT: moist, tongue midline Respiratory exam: PRESENT: crackles - bibasilar, symmetrical, unlabored, other - baseline supplemental O2. ABSENT: rales, rhonchi, wheezes Cardiovascular exam: PRESENT: RRR. ABSENT: diastolic murmur, rubs, systolic murmur Pulses: PRESENT: normal dorsalis pedis pul Vascular exam: PRESENT: normal capillary refill GI/Abdominal exam: PRESENT: normal bowel sounds, soft. ABSENT: distended, guarding, mass, organolmegaly, rebound, tenderness Rectal exam: PRESENT: deferred Extremities exam: PRESENT: full ROM, +2 edema - BLE. ABSENT: calf tenderness, clubbing, pedal edema Musculoskeletal exam: PRESENT: ambulatory Neurological exam: PRESENT: alert, awake, oriented to person, oriented to place, oriented to time, oriented to situation, CN II-XII grossly intact. ABSENT: motor sensory deficit Psychiatric exam: PRESENT: appropriate affect, normal mood. ABSENT: homicidal ideation, suicidal ideation Skin exam: PRESENT: dry, intact, warm. ABSENT: cyanosis, rash Results Laboratory Results: 01/16/20 06:35 01/16/20 06:35 01/16/20 01/16/20 06:35 06:35 WBC 7.6 RBC 3.40 L Hgb 9.2 L Hct 27.6 L MCV 81 MCH 27.1 MCHC 33.4 RDW 18.3 H Plt Count 162 Sodium 131.0 L Potassium 4.5 Chloride 96 L Carbon Dioxide 30 Anion Gap 5 BUN 23 H Creatinine 0.59 Est GFR ( Amer) > 60 Glucose 160 H Calcium 7.9 L Magnesium 1.7 01/12/20 11:34 CK-MB (CK-2) 2.08 Troponin I 0.040 NT-Pro-B Natriuret Pep 07905 H Impressions: Chest X-Ray 01/14/20 06:00 IMPRESSION: 1. Left basilar opacity and small left pleural effusion are stable. 2. Cardiomegaly Assessment and Plan - Diagnosis (1) Acute on chronic combined systolic and diastolic congestive heart failure Is this a current diagnosis for this admission?: Yes Plan: Echocardiogram last month that showed an ejection fraction of 20% with grade 1/4 diastolic failure and moderate pulmonary hypertension. He presented for a preoperative stress test, but when he arrived Dr. Sandoval evaluated him and deemed him not only inappropriate for the stress test but requiring admission. Cardiology is consulted; medication management per Dr. Long. Continues on dobutamine and dopamine drip. On oral amiodarone. Continue low-dose lisinopril and Toprol-XL twice daily. Receiving IV furosemide for diuresis. Continue atorvastatin therapy. Cardiac diet. Daily weights, strict I&O's. (2) COPD (chronic obstructive pulmonary disease) Qualifiers: COPD type: chronic bronchitis Qualified Code(s): J44.1 - Chronic obstructive pulmonary disease with (acute) exacerbation Is this a current diagnosis for this admission?: Yes Plan: Stable and without exacerbation at this time. Continue on baseline supplemental oxygen. Continue scheduled and as needed nebulizer treatments. On Levaquin for left lower lobe pneumonia. Continue Breo. No indications for steroid therapy. Continue pulmonary toilet with incentive spirometer, flutter valve, and ambulation. (3) Hernia, inguinal, right Is this a current diagnosis for this admission?: Yes Plan: Follow-up with surgery as outpatient. Analgesics and supportive care as needed. (4) Hyponatremia Is this a current diagnosis for this admission?: Yes Plan: The hyponatremia is most likely due to his chronic cardiac issues. Chronic and stable. Monitor with routine chemistry (5) Hypotension Qualifiers: Hypotension type: other hypotension type Qualified Code(s): I95.89 - Other hypotension Is this a current diagnosis for this admission?: Yes Plan: Hypotension is cardiogenic. Cardiology is consulted. Continues on IV dopamine and dobutamine drips. Continue low-dose metoprolol, lisinopril. Continuing to diurese with IV furosemide. (6) Left lower lobe pneumonia Qualifiers: Pneumonia type: due to unspecified organism Qualified Code(s): J18.9 - Pneumonia, unspecified organism Is this a current diagnosis for this admission?: Yes Plan: Significantly improved; now asymptomatic and on his baseline oxygen requirement. Blood cultures are negative at 4 days. Sputum culture not obtained. Now afebrile; leukocytosis is resolved. On levofloxacin through January 20, 2020 (7) Macrocytic anemia Is this a current diagnosis for this admission?: Yes Plan: Now s/p 1 unit PRBC No evidence of active bleeding at this time. Will continue daily vitamin, folic acid, and thiamine supplementation. Monitor CBC. (8) Abdominal pain Qualifiers: Abdominal location: generalized Qualified Code(s): R10.84 - Generalized abdominal pain Is this a current diagnosis for this admission?: Yes Plan: Secondary to his hernia. Symptomatic treatment at this time. Analgesics as needed. - Time Time Spent with patient: 25-34 minutes Medications reviewed and adjusted accordingly: Yes Anticipated discharge: Home with Homehealth
[2020-01-16] MEDS: DOBUTAMINE HCL/D5W 500 MG/250 ML RTUINJ IV PRN (16:09)
[2020-01-16] MEDS: DOPAMINE HCL/DEXTROSE 5%-WATER 800 MG/250 ML RTUINJ IV PRN (19:40)
[2020-01-16] MEDS: ATORVASTATIN CALCIUM 20 MG TABLET PO SCH (21:44)
[2020-01-17] MEDS: MORPHINE SULFATE 10 MG/ML INJ IV PRN ×4 (02:00→21:43)
[2020-01-17] MEDS: IPRATROPIUM BROMIDE 0.02% NEB 0.5 MG/2.5 ML AMPUL NEB SCH ×4 (02:40→19:49)
[2020-01-17] MEDS: LEVALBUTEROL HCL NEB 0.63 MG/3 ML AMPUL NEB SCH ×4 (02:40→19:49)
[2020-01-17] MEDS: LORAZEPAM 1 MG TABLET PO PRN ×2 (04:07→21:41)
[2020-01-17] MEDS: HYDROCORTISONE SOD SUCCINATE INJ/PF 100 MG/2 ML SDV IV SCH ×3 (06:12→21:27)
[2020-01-17] MEDS: HEPARIN SOD (PORCINE) 5,000 UNIT/ML 1 ML VIAL SUBCUT SCH ×3 (06:13→21:26)
[2020-01-17] MEDS: GABAPENTIN 400 MG CAPSULE PO SCH ×3 (06:13→21:24)
[2020-01-17 06:50] LABS: HEMATOCRIT 28.5 % (37.9-51.0); HEMOGLOBIN 9.3 g/dL (13.5-17.0); MEAN CORPUSCULAR HEMOGLOBIN 26.5 pg (27.0-33.4); MEAN CORPUSCULAR HGB CONC 32.5 g/dL (32.0-36.0); MEAN CORPUSCULAR VOLUME 81 fl (80-97); PLATELET COUNT 179 10^3/uL (150-450); RED CELL DISTRIBUTION WIDTH 18.4 % (11.5-14.0); WHITE BLOOD COUNT 11.6 10^3/uL (4.0-10.5)
[2020-01-17 07:22] LABS: ANION GAP 5 (5-19); BLOOD UREA NITROGEN 29 mg/dL (7-20); CALCIUM 8.2 mg/dL (8.4-10.2); CARBON DIOXIDE 31 mmol/L (22-30); CHLORIDE 99 mmol/L (98-107); GLUCOSE 136 mg/dL (75-110); POTASSIUM 4.6 mmol/L (3.6-5.0)
[2020-01-17] MEDS: BUDESONIDE NEB 0.5 MG/2 ML AMPUL NEB SCH ×2 (08:14→19:49)
[2020-01-17] MEDS: MULTIVITAMIN TABLET PO SCH (09:26)
[2020-01-17] MEDS: AMIODARONE HCL 200 MG TABLET PO SCH ×2 (09:26→21:26)
[2020-01-17] MEDS: FOLIC ACID 1 MG TABLET PO SCH (09:26)
[2020-01-17] MEDS: LISINOPRIL 5 MG TABLET PO SCH (09:26)
[2020-01-17] MEDS: MAGNESIUM OXIDE 400 MG TABLET PO SCH ×2 (09:26→17:13)
[2020-01-17] MEDS: POTASSIUM CHLORIDE 10 MEQ TABLET.ER PO SCH ×2 (09:26→21:25)
[2020-01-17] MEDS: VITAMIN B COMPLEX TABLET PO SCH (09:26)
[2020-01-17] MEDS: METOPROLOL SUCCINATE 25 MG TAB.SR.24H PO SCH ×2 (09:26→21:24)
[2020-01-17] MEDS: FUROSEMIDE INJ/PF 20 MG/2 ML SDV IV SCH (09:27)
[2020-01-17] MEDS: PANTOT AC/MIN OIL/PET HY-PHL OINT 50 GM TOP SCH ×2 (09:27→17:14)
[2020-01-17] MEDS: LEVOFLOXACIN 750 MG TABLET PO SCH (13:39)
--- NOTE | 2020-01-17 14:32 | PDOC PROGRESS REPORT ---
Subjective Progress Note for:: 01/17/20 Subjective:: Patient was seen on afternoon rounds. He was found resting in bed, comfortably, on supplemental oxygen at 3 L/min; uses 3lpm at baseline. He was sleeping but woke easily when I said his name. He states that overall he is feeling better, however, has some shortness of breath at present requested a nebulizer treatment. He reports continued right inguinal hernia pain. He specifically denies fever, chest pain, palpitations, dyspnea, orthopnea, nausea and vomiting. He has no other questions or concerns at this time. No concerns per nursing. Reason For Visit: COMMUNITY AQUIRED PNEUMONIA,COPD,CIRRHOSIS OF LIVE Physical Exam Vital Signs: Temp Pulse Resp BP Pulse Ox 97.3 F 85 18 110/64 97 01/17/20 11:20 01/17/20 13:00 01/17/20 11:20 01/17/20 13:00 01/17/20 11:20 Intake & Output 01/16/20 01/17/20 01/18/20 06:59 06:59 06:59 Intake Total 1755 2127 Output Total 1450 1475 Balance 305 652 Weight 75 kg 71.6 kg General appearance: PRESENT: no acute distress, cooperative, disheveled, well- developed, well-nourished Head exam: PRESENT: atraumatic, normocephalic Eye exam: PRESENT: conjunctiva pink, EOMI, PERRLA. ABSENT: scleral icterus Mouth exam: PRESENT: moist, tongue midline Teeth exam: PRESENT: poor dentation Respiratory exam: PRESENT: clear to auscultation rossy, prolonged expiratory phas, symmetrical, unlabored, other - Baseline oxygen requirement. ABSENT: rales, rh onchi, wheezes Cardiovascular exam: PRESENT: RRR. ABSENT: diastolic murmur, rubs, systolic murmur Pulses: PRESENT: normal dorsalis pedis pul Vascular exam: PRESENT: normal capillary refill GI/Abdominal exam: PRESENT: normal bowel sounds, soft. ABSENT: distended, guarding, mass, organolmegaly, rebound, tenderness Rectal exam: PRESENT: deferred Extremities exam: PRESENT: full ROM, +1 edema - Pedal edema BLE; improved from yesterday. ABSENT: calf tenderness, clubbing, pedal edema Neurological exam: PRESENT: alert, awake, oriented to person, oriented to place, oriented to time, oriented to situation, CN II-XII grossly intact. ABSENT: motor sensory deficit Psychiatric exam: PRESENT: appropriate affect, normal mood. ABSENT: homicidal ideation, suicidal ideation Skin exam: PRESENT: dry, intact, warm. ABSENT: cyanosis, rash Results Laboratory Results: 01/17/20 06:20 01/17/20 06:20 01/17/20 01/17/20 06:20 06:20 WBC 11.6 H RBC 3.50 L Hgb 9.3 L Hct 28.5 L MCV 81 MCH 26.5 L MCHC 32.5 RDW 18.4 H Plt Count 179 Sodium 135.2 L Potassium 4.6 Chloride 99 Carbon Dioxide 31 H Anion Gap 5 BUN 29 H Creatinine 0.70 Est GFR ( Amer) > 60 Glucose 136 H Calcium 8.2 L 01/12/20 12:39 Blood Blood Culture - Final NO GROWTH IN 5 DAYS 01/12/20 11:50 Blood Blood Culture - Final NO GROWTH IN 5 DAYS 01/12/20 11:34 CK-MB (CK-2) 2.08 Troponin I 0.040 NT-Pro-B Natriuret Pep [id number] H Impressions: Chest X-Ray 01/14/20 06:00 IMPRESSION: 1. Left basilar opacity and small left pleural effusion are stable. 2. Cardiomegaly Assessment and Plan - Diagnosis (1) Acute on chronic combined systolic and diastolic congestive heart failure Is this a current diagnosis for this admission?: Yes Plan: Echocardiogram last month that showed an ejection fraction of 20% with grade 1/4 diastolic failure and moderate pulmonary hypertension. He presented for a preoperative stress test, but when he arrived Dr. Sandoval evaluated him and deemed him not only inappropriate for the stress test but requiring admission. Cardiology is consulted; medication management per Dr. Comer. Discussed with Dr. Comer today; anticipates patient will require a few more days in house. Continues on dobutamine and dopamine drip. On oral amiodarone. Continue low-dose lisinopril and Toprol-XL twice daily. Receiving IV furosemide for diuresis. Continue atorvastatin therapy. Cardiac diet. Daily weights, strict I&O's. (2) COPD (chronic obstructive pulmonary disease) Qualifiers: COPD type: chronic bronchitis Qualified Code(s): J44.1 - Chronic obstructive pulmonary disease with (acute) exacerbation Is this a current diagnosis for this admission?: Yes Plan: Stable and without exacerbation at this time. Continue on baseline supplemental oxygen. Continue scheduled and as needed nebulizer treatments. On Levaquin for left lower lobe pneumonia. Continue Breo. On Solu-Cortef per cardiology for BP support; will assist with COPD as well. Continue pulmonary toilet with incentive spirometer, flutter valve, and ambulation. (3) Hernia, inguinal, right Is this a current diagnosis for this admission?: Yes Plan: Follow-up with surgery as outpatient. Analgesics and supportive care as needed. (4) Hyponatremia Is this a current diagnosis for this admission?: Yes Plan: The hyponatremia is most likely due to his chronic cardiac issues. Chronic and stable; 135.2 today Monitor with routine chemistry (5) Hypotension Qualifiers: Hypotension type: other hypotension type Qualified Code(s): I95.89 - Other hypotension Is this a current diagnosis for this admission?: Yes Plan: Hypotension is cardiogenic. Blood pressures consistently 110s/60s Cardiology is consulted. Continues on IV dopamine and dobutamine drips. Continue low-dose metoprolol, lisinopril. Continuing to diurese with IV furosemide. Solu-Cortef per Cardiology (6) Left lower lobe pneumonia Qualifiers: Pneumonia type: due to unspecified organism Qualified Code(s): J18.9 - Pneumonia, unspecified organism Is this a current diagnosis for this admission?: Yes Plan: Significantly improved; now asymptomatic and on his baseline oxygen requirement. Blood cultures are negative at 5 days. Sputum culture not obtained. Now afebrile; leukocytosis is resolved. On levofloxacin through January 20, 2020 (7) Macrocytic anemia Is this a current diagnosis for this admission?: Yes Plan: Hgb stable at 9.3 Now s/p 1 unit PRBC No evidence of active bleeding at this time. Will continue daily vitamin, folic acid, and thiamine supplementation. Monitor CBC. (8) Abdominal pain Qualifiers: Abdominal location: generalized Qualified Code(s): R10.84 - Generalized abdominal pain Is this a current diagnosis for this admission?: Yes Plan: Secondary to his hernia. Symptomatic treatment at this time. Analgesics as needed. - Time Time Spent with patient: 25-34 minutes Medications reviewed and adjusted accordingly: Yes Anticipated discharge: Home with Homehealth
--- NOTE | 2020-01-17 15:48 | Progress Note ---
Provider Note Provider Note: CARDIOLOGY PROGRESS NOTE by Dr. Lorenza Sandoval on 01/17/2020. OBJECTIVE: The patient continues to be complaining of cough. But states that this is much less. He continues to have shortness of breath although this is improved. He has no chest pain or discomfort. There is no PND orthopnea. He continues to have leg edema, but seems to be marginally better. Unfortunately is intake is more than his output. There is no arrhythmia seen on the monitor. PHYSICAL EXAMINATION: The patient appears to be chronically ill and malnourished. He is a frail build. Selected Entries 01/17/20 01/17/20 16:00 16:39 Temperature 97.2 F Temperature Axillary Source Pulse Rate 94 Respiratory 16 Rate Blood Pressure 103/65 O2 Sat by Pulse 100 Oximetry Oxygen Flow 3.00 Rate Oxygen Delivery Nasal Cannula Method HEAD: Is atraumatic normocephalic. EYES: Pupils are equal round regular reactive to light accommodation. Extraocular movements are normal. There is no conjunctival pallor. There is no scleral icterus. EARS: Tympanic membranes are intact. External auditory canals are clear. NOSE: There is no deviated nasal septum. There is no inflammation of the nasal mucous membrane. MOUTH: Mucous noted in the mouth are moist tongue is moist. There is no ulcers. There is no bleeding from the gums. THROAT: There is no redness of the oropharynx. There is no exudates. SKIN: There is no skin rashes or skin lesions. There is no particular ecchymosis. NECK: Is supple. There is JVD present carotids are equal there is no bruits. There is no lymphadenopathy. There is no goiter. There is no accessory muscle respiration use. Trachea central LUNGS: There is diminished air entry and prolonged expiration. On percussion there is hyperresonance. He has scattered rhonchi and few end expiratory wheezing. He has dry crackles in both the bases along with fine rales of CHF. HEART: S1-S2 is heard. S1 is of normal intensity. There is no S3 gallop. There is no S4 gallop. There is systolic murmur left sternal border and the apex there is no rub. ABDOMEN: Is obese. Nontender. There is no hepatosplenomegaly. Bowel sounds are well heard. There is no tender areas . There is right inguinal hernia present. EXTREMITIES: Femorals are deep. Femorals are diminished. Leg pulses are diminished. There is 2 + bilateral pedal edema present. There is no DVT. There is no cellulitis. There is no calf tenderness. There is no sinus or clubbing. Capillary refill is normal. SALES COMMISSIONS ANALYST: The patient is conscious awake alert oriented x3 with no focal deficits. PSYCHIATRIC: The patient judgment insight are intact, and his affect is normal. The patient's 24-hour intake is 2127 mL. The patient's 24-hour output is 1475 mL. Labs- All tests 24 hr 01/17/20 01/17/20 06:20 06:20 WBC 11.6 H RBC 3.50 L Hgb 9.3 L Hct 28.5 L MCV 81 MCH 26.5 L MCHC 32.5 RDW 18.4 H Plt Count 179 Sodium 135.2 L Potassium 4.6 Chloride 99 Carbon Dioxide 31 H Anion Gap 5 BUN 29 H Creatinine 0.70 Est GFR ( Amer) > 60 Est GFR (MDRD) Non-Af > 60 Glucose 136 H Calcium 8.2 L Chest X-Ray 01/12/20 10:28 IMPRESSION: Left lower lobe pneumonia. No significant change. Chest X-Ray 01/12/20 11:41 IMPRESSION: NO PNEUMOTHORAX FOLLOWING CENTRAL LINE PLACEMENT. Chest X-Ray 01/14/20 06:00 IMPRESSION: 1. Left basilar opacity and small left pleural effusion are stable. 2. Cardiomegaly IMPRESSION/RECOMMENDATION: 1. Acute on chronic respiratory failure: This is a combination of acute exacerbation of COPD, pneumonia, bronchitis, and congestive heart failure. 2. Acute on chronic systolic left and right systolic heart failure: Continue the patient on beta-sarina and MILAGRO inhibitor. Continue diuretics. At present the patient is on dobutamine at 2.5 mcg/kg/min and dopamine at 5 mcg/kg/min. Will increase dobutamine to 5 mcg/kg/min.. 3 Acute exacerbation of COPD. And left lower lobe pneumonia: Continue antibiotics continue respiratory treatments and oxygen. Continue patient on antibiotics. The patient does not want to be on Breo which was prescribed since we do not have Symbicort. In view of the patient continued wheezing will change the patient respiratory treatments to Xopenex and discontinue the patient's DuoNeb's. The patient's air is wanting more than the every 6 hours interval of nebulized treatments. We will also add Solu-Cortef since this has a little more mineralocorticoid and may help in getting the patient's blood pressure up. This is in view of the patient's continued wheezing. We will start tapering the steroids. 4 Nonsustained ventricular tachycardia: Patient magnesium was low this is being replaced. But in view of the patient's severe LV dysfunction will start the patient on amiodarone p.o. especially in view of the patient being on inotropic agents. There is no recurrence. 5. 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 Continue anti-cardiomyopathy treatment as per gold standard which is being done. 6.oronary artery disease: History of myocardial infarction in the past: No evidence of anginal symptoms. The patient had resting part of the stress test Cardiolite done today. Later when the patient's heart failure stabilized will do stress Cardiolite stress test later. 7 Multifocal atrial tachycardia: With amiodarone the patient's heart rate is just above 100. We will continue amiodarone. 8 Hypertension: At present blood pressure is on the lower side, but is acceptable. 9.History of cirrhosis of the liver: Secondary to chronic alcohol abuse. 10. Hypomagnesemia. Will replace magnesium. 11. Anemia patient receiving blood transfusion. 12. History of alcohol abuse and tobacco abuse disorder. Ill effects of alcohol and tobacco have been discussed with the patient tobacco cessation counseling was done. This took about 4 minutes. 13.. Hyperlipidemia: Due to its interaction simvastatin has been discontinued and the patient has been started on atorvastatin. 14. Noncompliance with medication and lifestyle, diet and physicians office visits. Medications reviewed. Medications adjusted. Medical regimen and management plan discussed with attending physician. Medical decision making is of high complexity. 40 minutes spent as patient with more than 50% of time spent direct patient care. Will follow.
[2020-01-17] MEDS: ATORVASTATIN CALCIUM 20 MG TABLET PO SCH (21:25)
[2020-01-18] MEDS: MORPHINE SULFATE 10 MG/ML INJ IV PRN ×2 (00:52→10:05)
[2020-01-18] MEDS: DOBUTAMINE HCL/D5W 500 MG/250 ML RTUINJ IV PRN (00:55)
[2020-01-18] MEDS: LEVALBUTEROL HCL NEB 0.63 MG/3 ML AMPUL NEB SCH ×4 (02:19→19:52)
[2020-01-18] MEDS: IPRATROPIUM BROMIDE 0.02% NEB 0.5 MG/2.5 ML AMPUL NEB SCH ×4 (02:19→19:52)
[2020-01-18 05:05] LABS: HEMATOCRIT 28.9 % (37.9-51.0); HEMOGLOBIN 9.6 g/dL (13.5-17.0); MEAN CORPUSCULAR HEMOGLOBIN 26.7 pg (27.0-33.4); MEAN CORPUSCULAR HGB CONC 33.1 g/dL (32.0-36.0); MEAN CORPUSCULAR VOLUME 81 fl (80-97); PLATELET COUNT 190 10^3/uL (150-450); RED BLOOD COUNT 3.59 10^6/uL (4.35-5.55); RED CELL DISTRIBUTION WIDTH 18.5 % (11.5-14.0); WHITE BLOOD COUNT 10.9 10^3/uL (4.0-10.5)
[2020-01-18] MEDS: GABAPENTIN 400 MG CAPSULE PO SCH ×3 (05:17→21:26)
[2020-01-18] MEDS: HYDROCORTISONE SOD SUCCINATE INJ/PF 100 MG/2 ML SDV IV SCH ×3 (05:17→21:27)
[2020-01-18] MEDS: HEPARIN SOD (PORCINE) 5,000 UNIT/ML 1 ML VIAL SUBCUT SCH ×3 (05:17→21:27)
[2020-01-18 05:30] LABS: BLOOD UREA NITROGEN 37 mg/dL (7-20); CALCIUM 8.4 mg/dL (8.4-10.2); GLUCOSE 113 mg/dL (75-110)
[2020-01-18 05:35] LABS: ANION GAP 5 (5-19); CARBON DIOXIDE 32 mmol/L (22-30); CHLORIDE 99 mmol/L (98-107)
[2020-01-18] MEDS: LORAZEPAM 1 MG TABLET PO PRN (07:22)
[2020-01-18] MEDS: TRAMADOL HCL 50 MG TABLET PO PRN ×2 (07:22→15:09)
[2020-01-18] MEDS: DOPAMINE HCL/DEXTROSE 5%-WATER 800 MG/250 ML RTUINJ IV PRN (07:28)
[2020-01-18] MEDS: BUDESONIDE NEB 0.5 MG/2 ML AMPUL NEB SCH ×2 (08:01→19:52)
[2020-01-18] MEDS: AMIODARONE HCL 200 MG TABLET PO SCH ×2 (09:46→21:26)
[2020-01-18] MEDS: POTASSIUM CHLORIDE 10 MEQ TABLET.ER PO SCH ×2 (09:47→21:27)
[2020-01-18] MEDS: FOLIC ACID 1 MG TABLET PO SCH (09:47)
[2020-01-18] MEDS: FLUTICASONE/VILANTEROL 200-25 MCG/DOSE IH SCH (09:47)
[2020-01-18] MEDS: LISINOPRIL 5 MG TABLET PO SCH (09:47)
[2020-01-18] MEDS: VITAMIN B COMPLEX TABLET PO SCH (09:47)
[2020-01-18] MEDS: MAGNESIUM OXIDE 400 MG TABLET PO SCH ×2 (09:47→17:13)
[2020-01-18] MEDS: FUROSEMIDE INJ/PF 20 MG/2 ML SDV IV SCH (09:47)
[2020-01-18] MEDS: METOPROLOL SUCCINATE 25 MG TAB.SR.24H PO SCH ×2 (09:47→21:00)
[2020-01-18] MEDS: MULTIVITAMIN TABLET PO SCH (09:47)
[2020-01-18] MEDS: PANTOT AC/MIN OIL/PET HY-PHL OINT 50 GM TOP SCH ×2 (09:47→17:14)
--- NOTE | 2020-01-18 13:21 | PDOC PROGRESS REPORT ---
Subjective Progress Note for:: 01/18/20 Subjective:: Patient was seen on morning rounds. He was found resting in bed, comfortably, on supplemental oxygen at 3 L/min; uses 3lpm at baseline. He was sleeping but woke easily when I said his name. He shortness of breath and nonproductive cough, however, on further discussion does admit that this is near his baseline function. Otherwise, he has no complaints today; inpatient to complete cardiac work-up for surgical clearance to have hernia repaired. He specifically denies fever, chest pain, palpitations, orthopnea, nausea and vomiting. He has no other questions or concerns at this time. No concerns per nursing. Reason For Visit: COMMUNITY AQUIRED PNEUMONIA,COPD,CIRRHOSIS OF LIVE Physical Exam Vital Signs: Temp Pulse Resp BP Pulse Ox 97.1 F 82 16 75/49 L 99 01/18/20 03:01 01/18/20 12:00 01/18/20 08:00 01/18/20 12:00 01/18/20 08:00 Intake & Output 01/17/20 01/18/20 01/19/20 06:59 06:59 06:59 Intake Total 2127 2169 4 Output Total 1475 1175 Balance 652 994 4 Weight 71.6 kg 79.3 kg 79.3 kg General appearance: PRESENT: no acute distress, cooperative, well-developed, well-nourished Head exam: PRESENT: atraumatic, normocephalic Eye exam: PRESENT: conjunctiva pink, EOMI, PERRLA. ABSENT: scleral icterus Mouth exam: PRESENT: moist, tongue midline Respiratory exam: PRESENT: clear to auscultation rossy, prolonged expiratory phas, rhonchi, symmetrical, unlabored, other - Baseline oxygen requirement. ABSENT: rales, wheezes Cardiovascular exam: PRESENT: RRR, +S1, +S2. ABSENT: diastolic murmur, rubs, systolic murmur Pulses: PRESENT: normal dorsalis pedis pul Vascular exam: PRESENT: normal capillary refill Extremities exam: PRESENT: full ROM, pedal edema - Trace bilaterally. ABSENT: calf tenderness, clubbing Musculoskeletal exam: PRESENT: ambulatory Neurological exam: PRESENT: alert, awake, oriented to person, oriented to place, oriented to time, oriented to situation, CN II-XII grossly intact. ABSENT: motor sensory deficit Psychiatric exam: PRESENT: appropriate affect, normal mood. ABSENT: homicidal ideation, suicidal ideation Skin exam: PRESENT: dry, intact, warm. ABSENT: cyanosis, rash Results Laboratory Results: 01/18/20 04:56 01/18/20 04:56 01/18/20 01/18/20 04:56 04:56 WBC 10.9 H RBC 3.59 L Hgb 9.6 L Hct 28.9 L MCV 81 MCH 26.7 L MCHC 33.1 RDW 18.5 H Plt Count 190 Sodium 135.5 L Potassium 5.0 Chloride 99 Carbon Dioxide 32 H Anion Gap 5 BUN 37 H Creatinine 0.71 Est GFR ( Amer) > 60 Glucose 113 H Calcium 8.4 01/12/20 12:39 Blood Blood Culture - Final NO GROWTH IN 5 DAYS 01/12/20 11:50 Blood Blood Culture - Final NO GROWTH IN 5 DAYS 01/12/20 11:34 CK-MB (CK-2) 2.08 Troponin I 0.040 NT-Pro-B Natriuret Pep 31890 H Impressions: Chest X-Ray 01/14/20 06:00 IMPRESSION: 1. Left basilar opacity and small left pleural effusion are stable. 2. Cardiomegaly Assessment and Plan - Diagnosis (1) Acute on chronic combined systolic and diastolic congestive heart failure Is this a current diagnosis for this admission?: Yes Plan: Echocardiogram last month that showed an ejection fraction of 20% with grade 1/4 diastolic failure and moderate pulmonary hypertension. He presented for a preoperative stress test, but when he arrived Dr. Sandoval evaluated him and deemed him not only inappropriate for the stress test but requiring admission. Cardiology is consulted; medication management per Dr. Comer. Discussed with Dr. Comer; anticipates patient will require a few more days in house. Continues on dobutamine and dopamine drip. On oral amiodarone. Continue low-dose lisinopril and Toprol-XL twice daily. Receiving IV furosemide for diuresis. Continue atorvastatin therapy. Cardiac diet. Daily weights, strict I&O's. (2) COPD (chronic obstructive pulmonary disease) Qualifiers: COPD type: chronic bronchitis Qualified Code(s): J44.1 - Chronic obstructive pulmonary disease with (acute) exacerbation Is this a current diagnosis for this admission?: Yes Plan: Stable and without exacerbation at this time. Continue on baseline supplemental oxygen. Continue scheduled and as needed nebulizer treatments. On Levaquin for left lower lobe pneumonia. Continue Breo. On Solu-Cortef per cardiology for BP support Continue pulmonary toilet with incentive spirometer, flutter valve, and ambulation. (3) Hernia, inguinal, right Is this a current diagnosis for this admission?: Yes Plan: Follow-up with surgery as outpatient. Analgesics and supportive care as needed. (4) Hyponatremia Is this a current diagnosis for this admission?: Yes Plan: The hyponatremia is most likely due to his chronic cardiac issues. Chronic and stable; 135.5 today Monitor with routine chemistry (5) Hypotension Qualifiers: Hypotension type: other hypotension type Qualified Code(s): I95.89 - Other hypotension Is this a current diagnosis for this admission?: Yes Plan: Hypotension is cardiogenic. Cardiology is consulted. Continues on IV dopamine and dobutamine drips. Continue low-dose metoprolol, lisinopril. Continuing to diurese with IV furosemide. Solu-Cortef per Cardiology (6) Left lower lobe pneumonia Qualifiers: Pneumonia type: due to unspecified organism Qualified Code(s): J18.9 - Pneumonia, unspecified organism Is this a current diagnosis for this admission?: Yes Plan: Significantly improved; now asymptomatic and on his baseline oxygen requirement. Blood cultures are negative at 5 days. Sputum culture not obtained. Now afebrile; leukocytosis is resolved. On levofloxacin through January 20, 2020 (7) Macrocytic anemia Is this a current diagnosis for this admission?: Yes Plan: Hgb stable at 9.3 Now s/p 1 unit PRBC No evidence of active bleeding at this time. Will continue daily vitamin, folic acid, and thiamine supplementation. Monitor CBC. (8) Abdominal pain Qualifiers: Abdominal location: generalized Qualified Code(s): R10.84 - Generalized abdominal pain Is this a current diagnosis for this admission?: Yes Plan: Secondary to his hernia. Symptomatic treatment at this time. Analgesics as needed. - Time Time Spent with patient: 15-24 minutes Medications reviewed and adjusted accordingly: Yes Anticipated discharge: Home with Homehealth
[2020-01-18] MEDS: LEVOFLOXACIN 750 MG TABLET PO SCH (14:18)
[2020-01-18] MEDS ORDERED: FUROSEMIDE INJ/PF 100 MG/10 ML SDV IV ONE (14:45)
[2020-01-18 16:57] LABS: ARTERIAL BLOOD BASE EXCESS 2.1 mmol/L; ARTERIAL BLOOD H2CO3 1.73 mmol/L (1.05-1.35); ARTERIAL BLOOD O2 SATURATION 96.5 % (94-98); ARTERIAL BLOOD PCO2 57.5 mmHg (35-45); ARTERIAL BLOOD PH 7.32 (7.35-7.45); ARTERIAL BLOOD PO2 94.7 mmHg (80-100); ARTERIAL BLOOD TOTAL CO2 30.8 mmol/L (23-27)
[2020-01-18 16:59] LABS: ARTERIAL BLOOD FIO2 3L
--- NOTE | 2020-01-18 17:17 | RADIOLOGY REPORT (SQ) ---
EXAM DESCRIPTION: CHEST SINGLE VIEW IMAGES COMPLETED DATE/TIME: 01/18/2020 5:03 pm REASON FOR STUDY: dyspnea COMPARISON: 01/14/2020 EXAM PARAMETERS: NUMBER OF VIEWS: One view. TECHNIQUE: Single frontal radiographic view of the chest acquired. RADIATION DOSE: NA LIMITATIONS: None. FINDINGS: LUNGS AND PLEURA decreasing left mid lung zone opacity. Question of left mid-lower lung z one nodules. The right lung remains clear. Decreasing left pleural effusion. No evidence of pneumo thorax. MEDIASTINUM AND HILAR STRUCTURES: No masses. Contour normal. HEART AND VASCULAR STRUCTURES: Cardiomegaly, stable finding. Normal vasculature. BONES: No acute findings. HARDWARE: Stable. OTHER: No other significant finding. IMPRESSION: 1. Since the prior examination dated 01/14/2020, decreasing left mid lung zone opacity. 2. Question of left mid-lower lung zone pulmonary nodules. A follow-up examination is suggested whi ch include nipple markers. TECHNICAL DOCUMENTATION: JOB ID: [id number] 2010 [employer]- All Rights Reserved Reading location - IP/workstation name: [email or web address]
[2020-01-18] MEDS ORDERED: LORAZEPAM INJ 2 MG/1 ML VIAL IV PRN (17:41)
[2020-01-18] MEDS: ATORVASTATIN CALCIUM 20 MG TABLET PO SCH (21:26)
[2020-01-19] MEDS: IPRATROPIUM BROMIDE 0.02% NEB 0.5 MG/2.5 ML AMPUL NEB SCH ×4 (02:00→20:38)
[2020-01-19] MEDS: LEVALBUTEROL HCL NEB 0.63 MG/3 ML AMPUL NEB SCH ×4 (02:00→20:38)
[2020-01-19] MEDS: GABAPENTIN 400 MG CAPSULE PO SCH ×3 (05:52→21:26)
[2020-01-19] MEDS: HYDROCORTISONE SOD SUCCINATE INJ/PF 100 MG/2 ML SDV IV SCH ×3 (05:52→21:27)
[2020-01-19] MEDS: HEPARIN SOD (PORCINE) 5,000 UNIT/ML 1 ML VIAL SUBCUT SCH ×3 (05:52→21:27)
[2020-01-19 06:21] LABS: HEMATOCRIT 30.5 % (37.9-51.0); HEMOGLOBIN 9.8 g/dL (13.5-17.0); MEAN CORPUSCULAR HGB CONC 32.1 g/dL (32.0-36.0); MEAN CORPUSCULAR VOLUME 81 fl (80-97); PLATELET COUNT 246 10^3/uL (150-450); RED BLOOD COUNT 3.77 10^6/uL (4.35-5.55); RED CELL DISTRIBUTION WIDTH 18.3 % (11.5-14.0); WHITE BLOOD COUNT 14.5 10^3/uL (4.0-10.5)
[2020-01-19 06:49] LABS: ANION GAP 6 (5-19); BLOOD UREA NITROGEN 55 mg/dL (7-20); CALCIUM 8.2 mg/dL (8.4-10.2); CARBON DIOXIDE 28 mmol/L (22-30); CHLORIDE 99 mmol/L (98-107); GLUCOSE 125 mg/dL (75-110)
[2020-01-19 06:51] LABS: POTASSIUM 6.2 mmol/L (3.6-5.0)
[2020-01-19] MEDS ORDERED: SODIUM POLYSTYRENE SULFONATE 15 GM/60 ML PO ONE ×2 (07:30→08:45)
[2020-01-19] MEDS ORDERED: NORMAL SALINE 500 ML IV ONE (07:30)
[2020-01-19] MEDS: BUDESONIDE NEB 0.5 MG/2 ML AMPUL NEB SCH ×2 (07:54→20:38)
[2020-01-19] MEDS ORDERED: CALCIUM GLUCONATE 1 GM/NS 50 ML RTU IV ONE (08:00)
[2020-01-19] MEDS ORDERED: ALBUTEROL SULFATE 0.083% NEB 2.5 MG/3 ML AMPUL NEB ONE (08:00)
[2020-01-19] MEDS: FUROSEMIDE INJ/PF 20 MG/2 ML SDV IV SCH (10:06)
[2020-01-19] MEDS: LISINOPRIL 5 MG TABLET PO SCH (10:07)
[2020-01-19] MEDS: AMIODARONE HCL 200 MG TABLET PO SCH ×2 (10:07→11:36)
[2020-01-19] MEDS: METOPROLOL SUCCINATE 25 MG TAB.SR.24H PO SCH ×2 (10:07→21:06)
[2020-01-19] MEDS: FLUTICASONE/VILANTEROL 200-25 MCG/DOSE IH SCH (10:07)
[2020-01-19] MEDS: MAGNESIUM OXIDE 400 MG TABLET PO SCH ×2 (10:09→17:53)
[2020-01-19] MEDS: MULTIVITAMIN TABLET PO SCH (10:09)
[2020-01-19] MEDS: FOLIC ACID 1 MG TABLET PO SCH (10:10)
[2020-01-19] MEDS: VITAMIN B COMPLEX TABLET PO SCH (10:10)
[2020-01-19] MEDS: PANTOT AC/MIN OIL/PET HY-PHL OINT 50 GM TOP SCH ×2 (10:10→17:53)
--- NOTE | 2020-01-19 11:20 | PDOC PROGRESS REPORT ---
Subjective Progress Note for:: 01/19/20 Subjective:: Patient was seen on morning rounds. He was found resting in bed, comfortably, on supplemental oxygen at 3 L/min; uses 3lpm at baseline. He was sleeping but woke easily when I said his name. He reports shortness of breath and productive cough, slightly improved from yesterday. Did not use BiPAP overnight. He denies fever, chest pain, palpitations, orthopnea, nausea and vomiting. He has no other questions or concerns at this time. No concerns per nursing. Reason For Visit: COMMUNITY AQUIRED PNEUMONIA,COPD,CIRRHOSIS OF LIVE Physical Exam Vital Signs: Temp Pulse Resp BP Pulse Ox 97.3 F 77 16 83/56 L 98 01/19/20 03:20 01/19/20 07:54 01/19/20 07:54 01/19/20 03:22 01/19/20 07:54 Intake & Output 01/18/20 01/19/20 01/20/20 06:59 06:59 06:59 Intake Total 2169 1829 500 Output Total 1175 350 Balance 994 1479 500 Weight 79.3 kg 74.8 kg General appearance: PRESENT: no acute distress, well-developed, well-nourished Head exam: PRESENT: atraumatic, normocephalic Eye exam: PRESENT: conjunctiva pink, EOMI, PERRLA. ABSENT: scleral icterus Mouth exam: PRESENT: moist, tongue midline Respiratory exam: PRESENT: crackles, prolonged expiratory phas, symmetrical, unlabored, wheezes, other - Supplemental oxygen. ABSENT: rales, rhonchi Cardiovascular exam: PRESENT: RRR. ABSENT: diastolic murmur, rubs, systolic murmur Pulses: PRESENT: normal dorsalis pedis pul Vascular exam: PRESENT: normal capillary refill Extremities exam: PRESENT: full ROM. ABSENT: calf tenderness, clubbing, pedal edema Neurological exam: PRESENT: alert, awake, oriented to person, oriented to place, oriented to time, oriented to situation, CN II-XII grossly intact. ABSENT: motor sensory deficit Psychiatric exam: PRESENT: appropriate affect, normal mood. ABSENT: homicidal ideation, suicidal ideation Skin exam: PRESENT: dry, intact, warm. ABSENT: cyanosis, rash Results Laboratory Results: 01/19/20 06:00 01/19/20 06:00 01/18/20 01/19/20 01/19/20 16:47 06:00 06:00 WBC 14.5 H RBC 3.77 L Hgb 9.8 L Hct 30.5 L MCV 81 MCH 26.0 L MCHC 32.1 RDW 18.3 H Plt Count 246 Carbonic Acid 1.73 H HCO3/H2CO3 Ratio 16:1 ABG pH 7.32 L ABG pCO2 57.5 H ABG pO2 94.7 ABG HCO3 29.0 H ABG O2 Saturation 96.5 ABG Base Excess 2.1 FiO2 3L Sodium 133.0 L Potassium 6.2 H* Chloride 99 Carbon Dioxide 28 Anion Gap 6 BUN 55 H Creatinine 1.27 H Est GFR ( Amer) > 60 Glucose 125 H Calcium 8.2 L 01/12/20 11:34 CK-MB (CK-2) 2.08 Troponin I 0.040 NT-Pro-B Natriuret Pep 86423 H Impressions: Chest X-Ray 01/18/20 00:00 IMPRESSION: 1. Since the prior examination dated 01/14/2020, decreasing left mid lung zone opacity. 2. Question of left mid-lower lung zone pulmonary nodules. A follow-up examination is suggested which include nipple markers. Assessment and Plan - Diagnosis (1) Acute on chronic combined systolic and diastolic congestive heart failure Is this a current diagnosis for this admission?: Yes Plan: Gradual improvement. Echocardiogram last month that showed an ejection fraction of 20% with grade 1/4 diastolic failure and moderate pulmonary hypertension. He presented for a preoperative stress test, but when he arrived Dr. Sandoval evaluated him and deemed him not only inappropriate for the stress test but requiring admission. Cardiology is consulted; medication management per Dr. Comer. Continues on dopamine drip. On oral amiodarone. Continue low-dose lisinopril and Toprol-XL twice daily. Receiving IV furosemide for diuresis. Continue atorvastatin therapy. Cardiac diet. Daily weights, strict I&O's. (2) COPD (chronic obstructive pulmonary disease) Qualifiers: COPD type: COPD with acute exacerbation Qualified Code(s): J44.1 - Chronic obstructive pulmonary disease with (acute) exacerbation Is this a current diagnosis for this admission?: Yes Plan: Now with acute exacerbation. Continue supplemental oxygen as needed to maintain >89% Continue scheduled and as needed nebulizer treatments. On Levaquin for left lower lobe pneumonia. Continue Breo. On Solu-Cortef per cardiology for BP support Start mucinex twice daily, Singulair, and Daliresp (given patient's multiple admissions with exacerbation) Continue pulmonary toilet with incentive spirometer, flutter valve, and ambulation. (3) Hernia, inguinal, right Is this a current diagnosis for this admission?: Yes Plan: Follow-up with surgery as outpatient. Analgesics and supportive care as needed. (4) Hyponatremia Is this a current diagnosis for this admission?: Yes Plan: The hyponatremia is most likely due to his chronic cardiac issues. Chronic and stable Monitor with routine chemistry (5) Hypotension Qualifiers: Hypotension type: other hypotension type Qualified Code(s): I95.89 - Other hypotension Is this a current diagnosis for this admission?: Yes Plan: Hypotension is cardiogenic. Cardiology is consulted. Continues on IV dopamine drips. Continue low-dose metoprolol, lisinopril. Continuing to diurese with IV furosemide. Solu-Cortef per Cardiology (6) Left lower lobe pneumonia Qualifiers: Pneumonia type: due to unspecified organism Qualified Code(s): J18.9 - Pneumonia, unspecified organism Is this a current diagnosis for this admission?: Yes Plan: Significantly improved; now asymptomatic and on his baseline oxygen requirement. Blood cultures are negative at 5 days. Sputum culture not obtained. Now afebrile; leukocytosis is resolved. On levofloxacin through January 20, 2020 (7) Macrocytic anemia Is this a current diagnosis for this admission?: Yes Plan: Hgb stable at 9.3 Now s/p 1 unit PRBC No evidence of active bleeding at this time. Will continue daily vitamin, folic acid, and thiamine supplementation. Monitor CBC. (8) Abdominal pain Qualifiers: Abdominal location: generalized Qualified Code(s): R10.84 - Generalized abdominal pain Is this a current diagnosis for this admission?: Yes Plan: Secondary to his hernia. Symptomatic treatment at this time. Analgesics as needed. (9) Hyperkalemia Is this a current diagnosis for this admission?: Yes Plan: EKG negative for peaked T waves. Received albuterol treatment and Kayexalate per receiving supervisor. Stop scheduled po Potassium Follow-up chemistry this afternoon. - Time Time Spent with patient: 25-34 minutes Medications reviewed and adjusted accordingly: Yes Anticipated discharge: Home with Homehealth
[2020-01-19] MEDS: ROFLUMILAST 500 MCG TABLET PO SCH (11:36)
--- NOTE | 2020-01-19 13:26 | EKG REPORT ---
SEVERITY:- ABNORMAL ECG - SINUS RHYTHM NONSPECIFIC INTRAVENTRICULAR CONDUCTION DELAY BORDERLINE R WAVE PROGRESSION, ANTERIOR LEADS : Confirmed by: Edu Baker MD 19-Jan-2020 13:25:26
[2020-01-19] MEDS: LEVOFLOXACIN 750 MG TABLET PO SCH (14:24)
[2020-01-19 15:51] LABS: ALBUMIN 2.9 g/dL (3.5-5.0); ALKALINE PHOSPHATASE 118 U/L (38-126); ANION GAP 9 (5-19); ASPARTATE AMINO TRANSFERASE 30 U/L (17-59); BILIRUBIN,DIRECT 0.1 mg/dL (0.0-0.4); BILIRUBIN,TOTAL 0.3 mg/dL (0.2-1.3); BLOOD UREA NITROGEN 56 mg/dL (7-20); CARBON DIOXIDE 26 mmol/L (22-30); CHLORIDE 97 mmol/L (98-107); GLUCOSE 166 mg/dL (75-110); TOTAL PROTEIN 6.4 g/dL (6.3-8.2)
[2020-01-19 16:04] LABS: POTASSIUM 4.7 mmol/L (3.6-5.0)
[2020-01-19] MEDS: MONTELUKAST SODIUM 10 MG TABLET PO SCH (21:26)
[2020-01-19] MEDS: GUAIFENESIN 600 MG TABLET.SA PO SCH (21:26)
[2020-01-19] MEDS: ATORVASTATIN CALCIUM 20 MG TABLET PO SCH (21:26)
--- NOTE | 2020-01-19 22:00 | Progress Note ---
Provider Note Provider Note: CARDIOLOGY PROGRESS NOTE by Dr. Lorenza Sandoval on 01/19/2020. SUBJECTIVE: The patient seems to be very noncompliant and wants to increase his oral intake. He states his shortness of breath is improved. His lung sounds much less noisy with lesser rhonchi and less dry crackles. There is no rales of CHF today. He has no PND orthopnea. He is coughing with sputum productive of yellowish colored sputum. The patient's heart rate is controlled now and there are occasional PVCs and APCs but no multifocal atrial tachycardia. PHYSICAL EXAMINATION: The patient appears to be chronically ill and malnourished. He is in no acute distress. Selected Entries 01/19/20 01/19/20 00:44 19:44 Temperature Oral Source Pulse Rate 82 Respiratory 23 H Rate Blood Pressure 101/52 L Blood Pressure 68 Mean BP Location Left Arm BP Position Supine O2 Sat by Pulse 97 Oximetry Oxygen Delivery Nasal Cannula Method ( includes room air) Fraction of 28 Inspired Oxygen (FIO2) Oxygen Flow 2 2.00 Rate Oxygen Delivery Nasal Cannula Method HEAD: Is atraumatic normocephalic. EYES: Pupils are equal round regular reactive to light accommodation. Extraocular movements are normal. There is no conjunctival pallor. There is no scleral icterus. EARS: Tympanic membranes are intact. External auditory canals are clear. NOSE: There is no deviated nasal septum. There is no inflammation of the nasal mucous membrane. MOUTH: Mucous noted in the mouth are moist tongue is moist. There is no ulcers. There is no bleeding from the gums. THROAT: There is no redness of the oropharynx. There is no exudates. SKIN: There is no skin rashes or skin lesions. There is no particular ecchymosis. NECK: Is supple. There is JVD present carotids are equal there is no bruits. There is no lymphadenopathy. There is no goiter. There is no accessory muscle respiration use. Trachea central LUNGS: There is diminished air entry and prolonged expiration. On percussion there is hyperresonance. He has scattered rhonchi and few end expiratory wheezing. He has dry crackles in both the bases along with fine rales of CHF. HEART: S1-S2 is heard. S1 is of normal intensity. There is no S3 gallop. There is no S4 gallop. There is systolic murmur left sternal border and the apex there is no rub. ABDOMEN: Is obese. Nontender. There is no hepatosplenomegaly. Bowel sounds are well heard. There is no tender areas . There is right inguinal her teri present. EXTREMITIES: Femorals are deep. Femorals are diminished. Leg pulses are diminished. There is 2 + bilateral pedal edema present. There is no DVT. There is no cellulitis. There is no calf tenderness. There is no sinus or clubbing. Capillary refill is normal. [employer] WORKER: The patient is conscious awake alert oriented x3 with no focal deficits. PSYCHIATRIC: The patient judgment insight are intact, and his affect is normal. The patient's 24-hour intake is 1829 mL. The patient's 24-hour output is 350 mL. I do not think this is accurate also the patient's weight taken daily is not accurate. Labs- All tests 24 hr 01/19/20 01/19/20 01/19/20 06:00 06:00 15:15 WBC 14.5 H RBC 3.77 L Hgb 9.8 L Hct 30.5 L MCV 81 MCH 26.0 L MCHC 32.1 RDW 18.3 H Plt Count 246 Sodium 133.0 L 132.0 L Potassium 6.2 H* 4.7 D Chloride 99 97 L Carbon Dioxide 28 26 Anion Gap 6 9 BUN 55 H 56 H Creatinine 1.27 H 1.27 H Est GFR ( Amer) > 60 > 60 Est GFR (MDRD) Non-Af 56 L 56 L Glucose 125 H 166 H Calcium 8.2 L 8.0 L Total Bilirubin 0.3 Direct Bilirubin 0.1 Neonat Total Bilirubin Not Reportable Neonat Direct Bilirubin Not Reportable Neonat Indirect Bili Not Reportable AST 30 ALT 19 Alkaline Phosphatase 118 Total Protein 6.4 Albumin 2.9 L Chest X-Ray 01/12/20 10:28 IMPRESSION: Left lower lobe pneumonia. No significant change. Chest X-Ray 01/12/20 11:41 IMPRESSION: NO PNEUMOTHORAX FOLLOWING CENTRAL LINE PLACEMENT. Chest X-Ray 01/14/20 06:00 IMPRESSION: 1. Left basilar opacity and small left pleural effusion are stable. 2. Cardiomegaly Chest X-Ray 01/18/20 00:00 IMPRESSION: 1. Since the prior examination dated 01/14/2020, decreasing left mid lung zone opacity. 2. Question of left mid-lower lung zone pulmonary nodules. A follow-up examination is suggested which include nipple markers. IMPRESSION/RECOMMENDATION: 1. Acute on chronic respiratory failure: This is a combination of acute exacerbation of COPD, pneumonia, bronchitis, and congestive heart failure. 2. Acute on chronic systolic left and right systolic heart failure: Continue the patient on beta-sarina and MILAGRO inhibitor. Continue diuretics. We will stop the patient's dopamine. 3 Acute exacerbation of COPD. And left lower lobe pneumonia: Continue antibiotics continue respiratory treatments and oxygen. Continue patient on antibiotics. The patient does not want to be on Breo which was prescribed since we do not have Symbicort. In view of the patient continued wheezing will change the patient respiratory treatments to Xopenex and discontinue the patient's DuoNeb's. The patient's air is wanting more than the every 6 hours interval of nebulized treatments. We will also add Solu-Cortef since this has a little more mineralocorticoid and may help in getting the patient's blood pressure up. This is in view of the patient's continued wheezing. We will start tapering the steroids. 4 Nonsustained ventricular tachycardia: Patient magnesium was low this is being replaced. But in view of the patient's severe LV dysfunction . No recurrence of nonsustained ventricular tachycardia with the patient being on amiodarone. We will decrease the amiodarone to 200 mg daily. There is no recurrence. 5. 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 Continue anti-cardiomyopathy treatment as per gold standard which is being done. 6.oronary artery disease: History of myocardial infarction in the past: No evidence of anginal symptoms. The patient had resting part of the stress test Cardiolite done today. Later when the patient's heart failure stabilized will do stress Cardiolite stress test later. 7 Multifocal atrial tachycardia: With amiodarone the patient's heart rate is just above 100. We will continue amiodarone. 8 Hypertension: At present blood pressure is on the lower side, but is acceptable. 9.History of cirrhosis of the liver: Secondary to chronic alcohol abuse. 10. Hypomagnesemia. Will replace magnesium. 11. Anemia patient receiving blood transfusion. 12. History of alcohol abuse and tobacco abuse disorder. Ill effects of alcohol and tobacco have been discussed with the patient tobacco cessation counseling was done. This took about 4 minutes. 13.. Hyperlipidemia: Due to its interaction simvastatin has been discontinued and the patient has been started on atorvastatin. 14. Noncompliance with medication and lifestyle, diet and physicians office visits. Medications reviewed. Medications adjusted. Medical regimen and management plan discussed with attending physician. Medical decision making is of high complexity. 40 minutes spent as patient with more than 50% of time spent direct patient care. Will follow.
[2020-01-20] MEDS: IPRATROPIUM BROMIDE 0.02% NEB 0.5 MG/2.5 ML AMPUL NEB SCH ×4 (02:21→19:40)
[2020-01-20] MEDS: LEVALBUTEROL HCL NEB 0.63 MG/3 ML AMPUL NEB SCH ×4 (02:21→19:39)
[2020-01-20] MEDS: HEPARIN SOD (PORCINE) 5,000 UNIT/ML 1 ML VIAL SUBCUT SCH ×3 (05:42→21:35)
[2020-01-20] MEDS: GABAPENTIN 400 MG CAPSULE PO SCH ×3 (05:48→21:35)
[2020-01-20] MEDS: HYDROCORTISONE SOD SUCCINATE INJ/PF 100 MG/2 ML SDV IV SCH (05:48)
[2020-01-20] MEDS: BUDESONIDE NEB 0.5 MG/2 ML AMPUL NEB SCH ×2 (08:10→19:39)
[2020-01-20 09:03] LABS: HEMATOCRIT 30.3 % (37.9-51.0); HEMOGLOBIN 9.8 g/dL (13.5-17.0); MEAN CORPUSCULAR HEMOGLOBIN 26.3 pg (27.0-33.4); MEAN CORPUSCULAR HGB CONC 32.3 g/dL (32.0-36.0); MEAN CORPUSCULAR VOLUME 81 fl (80-97); PLATELET COUNT 173 10^3/uL (150-450); RED BLOOD COUNT 3.72 10^6/uL (4.35-5.55); RED CELL DISTRIBUTION WIDTH 18.8 % (11.5-14.0); WHITE BLOOD COUNT 8.1 10^3/uL (4.0-10.5)
[2020-01-20 09:25] LABS: ANION GAP 9 (5-19); BLOOD UREA NITROGEN 53 mg/dL (7-20); CALCIUM 7.9 mg/dL (8.4-10.2); CARBON DIOXIDE 26 mmol/L (22-30); CHLORIDE 98 mmol/L (98-107); GLUCOSE 188 mg/dL (75-110); POTASSIUM 4.4 mmol/L (3.6-5.0)
[2020-01-20] MEDS: FLUTICASONE/VILANTEROL 200-25 MCG/DOSE IH SCH (10:29)
[2020-01-20] MEDS: FUROSEMIDE INJ/PF 20 MG/2 ML SDV IV SCH (10:29)
[2020-01-20] MEDS: LISINOPRIL 5 MG TABLET PO SCH (10:30)
[2020-01-20] MEDS: METOPROLOL SUCCINATE 25 MG TAB.SR.24H PO SCH ×2 (10:30→21:35)
[2020-01-20] MEDS: ROFLUMILAST 500 MCG TABLET PO SCH (10:35)
[2020-01-20] MEDS: MAGNESIUM OXIDE 400 MG TABLET PO SCH ×2 (10:35→17:24)
[2020-01-20] MEDS: FOLIC ACID 1 MG TABLET PO SCH (10:35)
[2020-01-20] MEDS: AMIODARONE HCL 200 MG TABLET PO SCH (10:35)
[2020-01-20] MEDS: MULTIVITAMIN TABLET PO SCH (10:35)
[2020-01-20] MEDS: PANTOT AC/MIN OIL/PET HY-PHL OINT 50 GM TOP SCH ×2 (10:35→17:21)
[2020-01-20] MEDS: VITAMIN B COMPLEX TABLET PO SCH (10:35)
[2020-01-20] MEDS: GUAIFENESIN 600 MG TABLET.SA PO SCH ×2 (10:35→21:35)
--- NOTE | 2020-01-20 12:28 | PDOC PROGRESS REPORT ---
Subjective Progress Note for:: 01/20/20 Subjective:: Patient was seen on morning rounds. He was found resting in bed, comfortably, on supplemental oxygen at 3 L/min; uses 3lpm at baseline. He was sleeping but woke easily when I said his name. He reports continued shortness of breath and productive cough. He admits that this is much improved. He does appear to be more comfortable. He reports that he ambulated with physical therapy in the hallway yesterday. His only request is to increase his fluid restriction today. No other questions or concerns. He denies fever, chest pain, palpitations, orthopnea, nausea and vomiting. No concerns per nursing. Reason For Visit: COMMUNITY AQUIRED PNEUMONIA,COPD,CIRRHOSIS OF LIVE Physical Exam Vital Signs: Temp Pulse Resp BP Pulse Ox 97.4 F 91 22 H 112/85 94 01/20/20 11:36 01/20/20 11:36 01/20/20 11:36 01/20/20 11:36 01/20/20 11:36 Intake & Output 01/19/20 01/20/20 01/21/20 06:59 06:59 06:59 Intake Total 1829 1858 550 Output Total 350 775 200 Balance 1479 1083 350 Weight 74.8 kg 78.2 kg General appearance: PRESENT: no acute distress, cooperative, well-developed, well-nourished Head exam: PRESENT: atraumatic, normocephalic Eye exam: PRESENT: conjunctiva pink, EOMI, PERRLA. ABSENT: scleral icterus Mouth exam: PRESENT: moist, tongue midline Respiratory exam: PRESENT: prolonged expiratory phas, rhonchi, symmetrical, unlabored, other - Baseline oxygen requirement. ABSENT: rales, wheezes Cardiovascular exam: PRESENT: RRR. ABSENT: diastolic murmur, rubs, systolic murmur Pulses: PRESENT: normal dorsalis pedis pul Vascular exam: PRESENT: normal capillary refill GI/Abdominal exam: PRESENT: normal bowel sounds, soft. ABSENT: distended, guarding, mass, organolmegaly, rebound, tenderness Rectal exam: PRESENT: deferred Gentrourinary exam: PRESENT: indwelling catheter Extremities exam: PRESENT: full ROM. ABSENT: calf tenderness, clubbing, pedal edema Musculoskeletal exam: PRESENT: ambulatory Neurological exam: PRESENT: alert, awake, oriented to person, oriented to place, oriented to time, oriented to situation, CN II-XII grossly intact. ABSENT: motor sensory deficit Psychiatric exam: PRESENT: appropriate affect, normal mood. ABSENT: homicidal ideation, suicidal ideation Skin exam: PRESENT: dry, intact, warm. ABSENT: cyanosis, rash Results Laboratory Results: 01/20/20 08:20 01/20/20 08:20 01/19/20 01/20/20 01/20/20 15:15 08:20 08:20 WBC 8.1 RBC 3.72 L Hgb 9.8 L Hct 30.3 L MCV 81 MCH 26.3 L MCHC 32.3 RDW 18.8 H Plt Count 173 Sodium 132.0 L 132.6 L Potassium 4.7 D 4.4 Chloride 97 L 98 Carbon Dioxide 26 26 Anion Gap 9 9 BUN 56 H 53 H Creatinine 1.27 H 1.12 Est GFR ( Amer) > 60 > 60 Glucose 166 H 188 H Calcium 8.0 L 7.9 L Total Bilirubin 0.3 AST 30 Alkaline Phosphatase 118 Total Protein 6.4 Albumin 2.9 L 01/12/20 11:34 CK-MB (CK-2) 2.08 Troponin I 0.040 NT-Pro-B Natriuret Pep 55195 H Impressions: Chest X-Ray 01/18/20 00:00 IMPRESSION: 1. Since the prior examination dated 01/14/2020, decreasing left mid lung zone opacity. 2. Question of left mid-lower lung zone pulmonary nodules. A follow-up examination is suggested which include nipple markers. Assessment and Plan - Diagnosis (1) COPD (chronic obstructive pulmonary disease) Qualifiers: COPD type: COPD with acute exacerbation Qualified Code(s): J44.1 - Chronic obstructive pulmonary disease with (acute) exacerbation Is this a current diagnosis for this admission?: Yes Plan: Now with acute exacerbation. Improved today; continues to have coarse rhonchi throughout. No wheezing present Continue supplemental oxygen as needed to maintain >89% Continue scheduled and as needed nebulizer treatments. On Levaquin for left lower lobe pneumonia. Continue Breo. Transition to oral prednisone Continue Mucinex twice daily, Singulair, and Daliresp (given patient's multiple admissions with exacerbation) Continue pulmonary toilet with incentive spirometer, flutter valve, and ambulation. (2) Acute on chronic combined systolic and diastolic congestive heart failure Is this a current diagnosis for this admission?: Yes Plan: Acute exacerbation has resolved. Echocardiogram last month that showed an ejection fraction of 20% with grade 1/4 diastolic failure and moderate pulmonary hypertension. He presented for a preoperative stress test, but when he arrived Dr. Sandoval evaluated him and deemed him not only inappropriate for the stress test but requiring admission. Cardiology is consulted; medication management per Dr. Comer. Continue oral amiodarone. Continue low-dose lisinopril and Toprol-XL twice daily. Transition to oral furosemide. Continue atorvastatin therapy. Cardiac diet. Daily weights, strict I&O's. (3) Hernia, inguinal, right Is this a current diagnosis for this admission?: Yes Plan: Follow-up with surgery as outpatient. Analgesics and supportive care as needed. (4) Hyponatremia Is this a current diagnosis for this admission?: Yes Plan: The hyponatremia is most likely due to his chronic cardiac issues. Chronic and stable Monitor with routine chemistry (5) Hypotension Qualifiers: Hypotension type: other hypotension type Qualified Code(s): I95.89 - Other hypotension Is this a current diagnosis for this admission?: Yes Plan: Improved. Hypotension is cardiogenic. Cardiology is consulted. Continue low-dose metoprolol, lisinopril. Transition to p.o. furosemide. Transition to p.o. prednisone today (previously on Solu-Cortef for blood pressure support by cardiology; now on steroid therapy for COPD exacerbation) (6) Left lower lobe pneumonia Qualifiers: Pneumonia type: due to unspecified organism Qualified Code(s): J18.9 - Pneumonia, unspecified organism Is this a current diagnosis for this admission?: Yes Plan: Significantly improved; now asymptomatic and on his baseline oxygen requirement. Blood cultures are negative at 5 days. Sputum culture not obtained. Now afebrile; leukocytosis is resolved. On levofloxacin through January 20, 2020 (7) Macrocytic anemia Is this a current diagnosis for this admission?: Yes Plan: Hgb stable at 9.3 Now s/p 1 unit PRBC No evidence of active bleeding at this time. Will continue daily vitamin, folic acid, and thiamine supplementation. Monitor CBC. (8) Abdominal pain Qualifiers: Abdominal location: generalized Qualified Code(s): R10.84 - Generalized abdominal pain Is this a current diagnosis for this admission?: Yes Plan: Secondary to his hernia. Symptomatic treatment at this time. Analgesics as needed. (9) Hyperkalemia Is this a current diagnosis for this admission?: Yes Plan: Resolved. EKG negative for peaked T waves. Received albuterol treatment and Kayexalate x1 - Time Time Spent with patient: 25-34 minutes Medications reviewed and adjusted accordingly: Yes Anticipated discharge: Home with Homehealth Within: within 48 hours
[2020-01-20] MEDS: PREDNISONE 20 MG TABLET PO SCH (17:24)
--- NOTE | 2020-01-20 19:00 | Progress Note ---
Provider Note Provider Note: CARDIOLOGY PROGRESS NOTE by Dr. Lorenza Sandoval on 01/20/2020. OBJECTIVE the patient states his shortness of breath is improved. He has no PND orthopnea. His cough is also much improved and is producing very scanty yellowish sputum. There is no chest pain or discomfort. There is no atrial or ventricular arrhythmia seen on the monitor. He is tolerating amiodarone and also being off dopamine. His blood pressure stabilized. PHYSICAL EXAMINATION: The patient is a frail build and appears to be chronically ill and malnourished. Selected Entries 01/20/20 11:36 Temperature 97.4 F Temperature Oral Source Pulse Rate 91 Respiratory 22 H Rate Blood Pressure 112/85 Blood Pressure 94 Mean BP Location Left Arm BP Position Supine O2 Sat by Pulse 94 Oximetry Oxygen Flow 3.00 Rate Oxygen Delivery Nasal Cannula Method HEAD: Is atraumatic normocephalic. EYES: Pupils are equal round regular reactive to light accommodation. Extraocular movements are normal. There is no conjunctival pallor. There is no scleral icterus. EARS: Tympanic membranes are intact. External auditory canals are clear. NOSE: There is no deviated nasal septum. There is no inflammation of the nasal mucous membrane. MOUTH: Mucous noted in the mouth are moist tongue is moist. There is no ulcers. There is no bleeding from the gums. THROAT: There is no redness of the oropharynx. There is no exudates. SKIN: There is no skin rashes or skin lesions. There is no particular ecchymosis. NECK: Is supple. There is JVD present carotids are equal there is no bruits. There is no lymphadenopathy. There is no goiter. There is no accessory muscle respiration use. Trachea central LUNGS: There is diminished air entry and prolonged expiration. On percussion there is hyperresonance. He has scattered rhonchi and few end expiratory wheezing. He has dry crackles in both the bases along with fine rales of CHF. HEART: S1-S2 is heard. S1 is of normal intensity. There is no S3 gallop. There is no S4 gallop. There is systolic murmur left sternal border and the apex there is no rub. ABDOMEN: Is obese. Nontender. There is no hepatosplenomegaly. Bowel sounds are well heard. There is no tender areas . There is right inguinal hernia present. EXTREMITIES: Femorals are deep. Femorals are diminished. Leg pulses are diminished. There is trace bilateral pedal edema present. There is no DVT. There is no cellulitis. There is no calf tenderness. There is no s inus or clubbing. Capillary refill is normal. 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 PSYCHIATRIC: The patient judgment insight are intact, and his affect is normal. The patient's 24-hour intake is 1870mL. The patient's 24-hour output is 775 mL. I do not think this is accurate also the patient's weight taken daily is not accurate. Labs- All tests 24 hr 01/20/20 01/20/20 08:20 08:20 WBC 8.1 RBC 3.72 L Hgb 9.8 L Hct 30.3 L MCV 81 MCH 26.3 L MCHC 32.3 RDW 18.8 H Plt Count 173 Sodium 132.6 L Potassium 4.4 Chloride 98 Carbon Dioxide 26 Anion Gap 9 BUN 53 H Creatinine 1.12 Est GFR ( Amer) > 60 Est GFR (MDRD) Non-Af > 60 Glucose 188 H Calcium 7.9 L Chest X-Ray 01/12/20 10:28 IMPRESSION: Left lower lobe pneumonia. No significant change. Chest X-Ray 01/12/20 11:41 IMPRESSION: NO PNEUMOTHORAX FOLLOWING CENTRAL LINE PLACEMENT. Chest X-Ray 01/14/20 06:00 IMPRESSION: 1. Left basilar opacity and small left pleural effusion are stable. 2. Cardiomegaly Chest X-Ray 01/18/20 00:00 IMPRESSION: 1. Since the prior examination dated 01/14/2020, decreasing left mid lung zone opacity. 2. Question of left mid-lower lung zone pulmonary nodules. A follow-up examination is suggested which include nipple markers. IMPRESSION/RECOMMENDATION: 1. Acute on chronic respiratory failure: This is a combination of acute exacerbation of COPD, pneumonia, bronchitis, and congestive heart failure. 2. Acute on chronic systolic left and right systolic heart failure: Continue the patient on beta-sarina and MILAGRO inhibitor. Continue diuretics. We will stop the patient's dopamine. 3 Acute exacerbation of COPD. And left lower lobe pneumonia: Continue antibiotics continue respiratory treatments and oxygen. Continue patient on antibiotics. The patient does not want to be on Breo which was prescribed since we do not have Symbicort. In view of the patient continued wheezing will change the patient respiratory treatments to Xopenex and discontinue the patient's DuoNeb's. The patient's air is wanting more than the every 6 hours interval of nebulized treatments. We will also add Solu-Cortef since this has a little more mineralocorticoid and may help in getting the patient's blood pressure up. This is in view of the patient's continued wheezing. We will start tapering the steroids. 4 Nonsustained ventricular tachycardia: Patient magnesium was low this is being replaced. But in view of the patient's severe LV dysfunction . No recurrence of nonsustained ventricular tachycardia with the patient being on amiodarone. We will decrease the amiodarone to 200 mg daily. There is no recurrence. 5. 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 Continue anti-cardiomyopathy treatment as per gold standard which is being done. 6.oronary artery disease: History of myocardial infarction in the past: No evidence of anginal symptoms. The patient had resting part of the stress test Cardiolite done today. Later when the patient's heart failure stabilized will do stress Cardiolite stress test later. 7 Multifocal atrial tachycardia: With amiodarone the patient's heart rate is just above 100. We will continue amiodarone. 8 Hypertension: At present blood pressure is on the lower side, but is acceptable. 9.History of cirrhosis of the liver: Secondary to chronic alcohol abuse. 10. Hypomagnesemia. Will replace magnesium. 11. Anemia patient receiving blood transfusion. 12. History of alcohol abuse and tobacco abuse disorder. Ill effects of alcohol and tobacco have been discussed with the patient tobacco cessation counseling was done. This took about 4 minutes. 13.. Hyperlipidemia: Due to its interaction simvastatin has been discontinued and the patient has been started on atorvastatin. 14. Noncompliance with medication and lifestyle, diet and physicians office visits. Medications reviewed. Medications adjusted. Medical regimen and management plan discussed with attending physician. Medical decision making is of moderate complexity. 40 minutes spent as patient with more than 50% of time spent direct patient care. Will follow.
[2020-01-20] MEDS: ATORVASTATIN CALCIUM 20 MG TABLET PO SCH (21:35)
[2020-01-20] MEDS: MONTELUKAST SODIUM 10 MG TABLET PO SCH (21:35)
[2020-01-20] MEDS: TRAMADOL HCL 50 MG TABLET PO PRN (21:39)
[2020-01-20] MEDS: MORPHINE SULFATE 10 MG/ML INJ IV PRN (21:50)
[2020-01-21] MEDS: LORAZEPAM 1 MG TABLET PO PRN ×2 (01:35→21:27)
[2020-01-21] MEDS: IPRATROPIUM BROMIDE 0.02% NEB 0.5 MG/2.5 ML AMPUL NEB SCH ×4 (01:54→20:38)
[2020-01-21] MEDS: LEVALBUTEROL HCL NEB 0.63 MG/3 ML AMPUL NEB SCH ×4 (01:54→20:38)
[2020-01-21] MEDS: MORPHINE SULFATE 10 MG/ML INJ IV PRN ×5 (03:36→21:25)
[2020-01-21] MEDS: HEPARIN SOD (PORCINE) 5,000 UNIT/ML 1 ML VIAL SUBCUT SCH ×3 (05:22→21:24)
[2020-01-21] MEDS: GABAPENTIN 400 MG CAPSULE PO SCH ×3 (05:22→21:27)
[2020-01-21 06:41] LABS: ANION GAP 6 (5-19); BLOOD UREA NITROGEN 52 mg/dL (7-20); CARBON DIOXIDE 28 mmol/L (22-30); CHLORIDE 99 mmol/L (98-107); GLUCOSE 149 mg/dL (75-110); POTASSIUM 4.1 mmol/L (3.6-5.0)
[2020-01-21] MEDS: BUDESONIDE NEB 0.5 MG/2 ML AMPUL NEB SCH ×2 (07:46→20:38)
[2020-01-21] MEDS: PANTOT AC/MIN OIL/PET HY-PHL OINT 50 GM TOP SCH ×2 (11:26→17:24)
[2020-01-21] MEDS: FLUTICASONE/VILANTEROL 200-25 MCG/DOSE IH SCH (11:45)
[2020-01-21] MEDS: AMIODARONE HCL 200 MG TABLET PO SCH (11:46)
[2020-01-21] MEDS: ROFLUMILAST 500 MCG TABLET PO SCH (11:46)
[2020-01-21] MEDS: FUROSEMIDE 40 MG TABLET PO SCH (11:46)
[2020-01-21] MEDS: LISINOPRIL 5 MG TABLET PO SCH (11:46)
[2020-01-21] MEDS: MULTIVITAMIN TABLET PO SCH (11:46)
[2020-01-21] MEDS: PREDNISONE 20 MG TABLET PO SCH ×2 (11:46→17:24)
[2020-01-21] MEDS: MAGNESIUM OXIDE 400 MG TABLET PO SCH ×2 (11:46→17:24)
[2020-01-21] MEDS: METOPROLOL SUCCINATE 25 MG TAB.SR.24H PO SCH ×2 (11:47→21:27)
[2020-01-21] MEDS: VITAMIN B COMPLEX TABLET PO SCH (11:47)
[2020-01-21] MEDS: GUAIFENESIN 600 MG TABLET.SA PO SCH ×2 (11:47→21:27)
[2020-01-21] MEDS: FOLIC ACID 1 MG TABLET PO SCH (11:47)
--- NOTE | 2020-01-21 12:12 | PDOC PROGRESS REPORT ---
Subjective Progress Note for:: 01/21/20 Subjective:: No adverse events overnight. No new complaints. Vital signs have been stable. He is a little tachycardic this morning before he gets his medications. Appetite has been good. Says his breathing feels like it is about normal. Reason For Visit: COMMUNITY AQUIRED PNEUMONIA,COPD,CIRRHOSIS OF LIVE Physical Exam Vital Signs: Temp Pulse Resp BP Pulse Ox 97.5 F 104 H 16 120/63 97 01/21/20 08:00 01/21/20 08:00 01/21/20 08:00 01/21/20 08:00 01/21/20 08:00 Intake & Output 01/20/20 01/21/20 01/22/20 06:59 06:59 06:59 Intake Total 1858 1715 Output Total 775 1125 Balance 1083 590 Weight 78.2 kg 82.6 kg General appearance: PRESENT: no acute distress, cooperative, well-developed, well-nourished Respiratory exam: PRESENT: prolonged expiratory phas, rhonchi, symmetrical, unlabored, other - Baseline oxygen requirement. ABSENT: rales, wheezes Cardiovascular exam: PRESENT: tachycardia. ABSENT: diastolic murmur, rubs, systolic murmur Pulses: PRESENT: normal dorsalis pedis pul Vascular exam: PRESENT: normal capillary refill GI/Abdominal exam: PRESENT: normal bowel sounds, soft. ABSENT: distended, guarding, mass, organolmegaly, rebound, tenderness Gentrourinary exam: PRESENT: indwelling catheter Extremities exam: PRESENT: full ROM. ABSENT: calf tenderness, clubbing, pedal edema Musculoskeletal exam: PRESENT: ambulatory Neurological exam: PRESENT: Drowsy but arousable, awake, oriented to person, oriented to place, oriented to time, oriented to situation Psychiatric exam: PRESENT: appropriate affect, normal mood. Skin exam: PRESENT: dry, intact, warm. ABSENT: cyanosis, rash Results Laboratory Results: 01/20/20 08:20 01/21/20 05:30 01/21/20 05:30 Sodium 133.4 L Potassium 4.1 Chloride 99 Carbon Dioxide 28 Anion Gap 6 BUN 52 H Creatinine 1.05 Est GFR ( Amer) > 60 Glucose 149 H Calcium 8.0 L 01/12/20 11:34 CK-MB (CK-2) 2.08 Troponin I 0.040 NT-Pro-B Natriuret Pep 42017 H Impressions: Chest X-Ray 01/18/20 00:00 IMPRESSION: 1. Since the prior examination dated 01/14/2020, decreasing left mid lung zone opacity. 2. Question of left mid-lower lung zone pulmonary nodules. A follow-up examination is suggested which include nipple markers. Assessment and Plan - Diagnosis (1) Acute on chronic combined systolic and diastolic congestive heart failure Is this a current diagnosis for this admission?: Yes Plan: Acute exacerbation has resolved. Echocardiogram last month that showed an ejection fraction of 20% with grade 1/4 diastolic failure and moderate pulmonary hypertension. He presented for a preoperative stress test, but when he arrived Dr. Sandoval evaluated him and deemed him not only inappropriate for the stress test but requiring admission. Cardiology is consulted; medication management per Dr. Comer. Continue oral amiodarone. Continue low-dose lisinopril and Toprol-XL twice daily. oral furosemide. Continue atorvastatin therapy. Cardiac diet. Daily weights, strict I&O's. (2) COPD (chronic obstructive pulmonary disease) Qualifiers: COPD type: COPD with acute exacerbation Qualified Code(s): J44.1 - Chronic obstructive pulmonary disease with (acute) exacerbation Is this a current diagnosis for this admission?: Yes Plan: Now with acute exacerbation. continues to have coarse rhonchi and congested breath sounds throughout. No wheezing present Continue supplemental oxygen as needed to maintain >89% Continue scheduled and as needed nebulizer treatments. On Levaquin for left lower lobe pneumonia. Continue Breo. Transition to oral prednisone Continue Mucinex twice daily, Singulair, and Daliresp (given patient's multiple admissions with exacerbation) Continue pulmonary toilet with incentive spirometer, flutter valve, and ambulation. (3) Cirrhosis Qualifiers: Hepatic cirrhosis type: unspecified hepatic cirrhosis Ascites presence: without ascites Qualified Code(s): K74.60 - Unspecified cirrhosis of liver Is this a current diagnosis for this admission?: Yes (4) Community acquired pneumonia Qualifiers: Laterality: left Lung location: lower lobe of lung Qualified Code(s): J18.9 - Pneumonia, unspecified organism Is this a current diagnosis for this admission?: Yes Plan: Continue antibiotics (5) Dependence on supplemental oxygen Is this a current diagnosis for this admission?: Yes (6) Acute and chronic respiratory failure Qualifiers: Respiratory failure complication: hypoxia Qualified Code(s): J96.21 - Acute and chronic respiratory failure with hypoxia Is this a current diagnosis for this admission?: Yes Plan: Continue supplemental O2 to maintain SPO2 greater than 90% - Time Time Spent with patient: 25-34 minutes
--- NOTE | 2020-01-21 12:19 | Progress Note ---
Provider Note Provider Note: Cardiology progress note by Dr. Lorenza Sandoval on 01/21/2020. OBJECTIVE: The patient complains of generalized pain and wants morphine. He denies any chest pain or discomfort. There is no shortness of breath or PND orthopnea. His cough is almost resolved. There is no wheezing today. There is no atrial or ventricular arrhythmia seen on the monitor. Today he does not complain of right inguinal hernia pain. The patient continues to be noncompliant with fluids. His intake is been more than his output. PHYSICAL EXAMINATION: The patient appears to be chronically ill and malnourished. At present in no acute distress. Selected Entries 01/21/20 12:14 Temperature 97.8 F Temperature Oral Source Respiratory 22 H Rate Blood Pressure 114/55 L Blood Pressure 74 Mean BP Location Right Arm BP Position Sitting O2 Sat by Pulse 100 Oximetry Oxygen Flow 3.00 Rate Oxygen Delivery Nasal Cannula Method HEAD: Is atraumatic normocephalic. EYES: Pupils are equal round regular reactive to light accommodation. Extraocular movements are normal. There is no conjunctival pallor. There is no scleral icterus. EARS: Tympanic membranes are intact. External auditory canals are clear. NOSE: There is no deviated nasal septum. There is no inflammation of the nasal mucous membrane. MOUTH: Mucous noted in the mouth are moist tongue is moist. There is no ulcers. There is no bleeding from the gums. THROAT: There is no redness of the oropharynx. There is no exudates. SKIN: There is no skin rashes or skin lesions. There is no particular ecchymosis. NECK: Is supple. There is JVD present carotids are equal there is no bruits. There is no lymphadenopathy. There is no goiter. There is no accessory muscle respiration use. Trachea central LUNGS: There is diminished air entry and prolonged expiration. On percussion there is hyperresonance. He has scattered rhonchi and few end expiratory wheezing. He has dry crackles in both the bases along with fine rales of CHF. HEART: S1-S2 is heard. S1 is of normal intensity. There is no S3 gallop. There is no S4 gallop. There is systolic murmur left sternal border and the apex there is no rub. ABDOMEN: Is obese. Nontender. There is no hepatosplenomegaly. Bowel sounds are well heard. There is no tender areas . There is right inguinal hernia present. EXTREMITIES: Femorals are deep. Femorals are diminished. Leg pulses are diminished. There is trace bilateral pedal edema present. There is no DVT. There is no cellulitis. There is no calf tenderness. There is no sinus or clubbing. Capillary refill is normal. 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 PSYCHIATRIC: The patient judgment insight are intact, and his affect is normal. The patient's 24-hour intake is 1715mL. The patient's 24-hour output is 1125 mL. Labs- All tests 24 hr 01/21/20 05:30 Sodium 133.4 L Potassium 4.1 Chloride 99 Carbon Dioxide 28 Anion Gap 6 BUN 52 H Creatinine 1.05 Est GFR ( Amer) > 60 Est GFR (MDRD) Non-Af > 60 Glucose 149 H Calcium 8.0 L Chest X-Ray 01/12/20 10:28 IMPRESSION: Left lower lobe pneumonia. No significant change. Chest X-Ray 01/12/20 11:41 IMPRESSION: NO PNEUMOTHORAX FOLLOWING CENTRAL LINE PLACEMENT. Chest X-Ray 01/14/20 06:00 IMPRESSION: 1. Left basilar opacity and small left pleural effusion are stable. 2. Cardiomegaly Chest X-Ray 01/18/20 00:00 IMPRESSION: 1. Since the prior examination dated 01/14/2020, decreasing left mid lung zone opacity. 2. Question of left mid-lower lung zone pulmonary nodules. A follow-up examination is suggested which include nipple markers. IMPRESSION/RECOMMENDATION: 1. Acute on chronic respiratory failure: This is a combination of acute exacerbation of COPD, pneumonia, bronchitis, and congestive heart failure. 2. Acute on chronic systolic left and right systolic heart failure: Continue the patient on beta-sarina and MILAGRO inhibitor. Continue diuretics. We will stop the patient's dopamine. 3 Acute exacerbation of COPD. And left lower lobe pneumonia: Continue antibiotics continue respiratory treatments and oxygen. Continue patient on antibiotics. The patient does not want to be on Breo which was prescribed since we do not have Symbicort. In view of the patient continued wheezing will change the patient respiratory treatments to Xopenex and discontinue the patient's DuoNeb's. The patient's air is wanting more than the every 6 hours interval of nebulized treatments. We will also add Solu-Cortef since this has a little more mineralocorticoid and may help in getting the patient's blood pressure up. This is in view of the patient's continued wheezing. We will start tapering the steroids. 4 Nonsustained ventricular tachycardia: Patient magnesium was low this is being replaced. But in view of the patient's severe LV dysfunction . No recurrence of nonsustained ventricular tachycardia with the patient being on amiodarone. We will decrease the amiodarone to 200 mg daily. There is no recurrence. 5. 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 Continue anti-cardiomyopathy treatment as per gold standard which is being done. 6.oronary artery disease: History of myocardial infarction in the past: No evidence of anginal symptoms. The patient had resting part of the stress test Cardiolite done today. Later when the patient's heart failure stabilized will do stress Cardiolite stress test later. 7 Multifocal atrial tachycardia: With amiodarone the patient's heart rate is just above 100. We will continue amiodarone. 8 Hypertension: At present blood pressure is on the lower side, but is a cceptable. 9.History of cirrhosis of the liver: Secondary to chronic alcohol abuse. 10. Hypomagnesemia. Will replace magnesium. 11. Anemia patient receiving blood transfusion. 12. History of alcohol abuse and tobacco abuse disorder. Ill effects of alcohol and tobacco have been discussed with the patient tobacco cessation counseling was done. This took about 4 minutes. 13.. Hyperlipidemia: Due to its interaction simvastatin has been discontinued and the patient has been started on atorvastatin. 14. Noncompliance with medication and lifestyle, diet and physicians office visits. Medications reviewed. Medications adjusted. Medical regimen and management plan discussed with attending physician. Medical decision making is of moderate complexity. 40 minutes spent as patient with more than 50% of time spent direct patient care. Will follow.
[2020-01-21] MEDS: MONTELUKAST SODIUM 10 MG TABLET PO SCH (21:27)
[2020-01-21] MEDS: ATORVASTATIN CALCIUM 20 MG TABLET PO SCH (21:27)
[2020-01-22] MEDS: MORPHINE SULFATE 10 MG/ML INJ IV PRN ×6 (01:41→22:19)
[2020-01-22] MEDS: LEVALBUTEROL HCL NEB 0.63 MG/3 ML AMPUL NEB SCH ×4 (02:35→20:53)
[2020-01-22] MEDS: IPRATROPIUM BROMIDE 0.02% NEB 0.5 MG/2.5 ML AMPUL NEB SCH ×4 (02:35→20:53)
[2020-01-22] MEDS: HEPARIN SOD (PORCINE) 5,000 UNIT/ML 1 ML VIAL SUBCUT SCH ×3 (05:37→22:16)
[2020-01-22] MEDS: GABAPENTIN 400 MG CAPSULE PO SCH ×3 (05:37→22:19)
[2020-01-22] MEDS: BUDESONIDE NEB 0.5 MG/2 ML AMPUL NEB SCH ×2 (08:19→20:53)
[2020-01-22] MEDS: METOPROLOL SUCCINATE 25 MG TAB.SR.24H PO SCH ×2 (10:12→22:20)
[2020-01-22] MEDS: MAGNESIUM OXIDE 400 MG TABLET PO SCH ×2 (10:13→18:07)
[2020-01-22] MEDS: GUAIFENESIN 600 MG TABLET.SA PO SCH ×2 (10:13→22:17)
[2020-01-22] MEDS: FOLIC ACID 1 MG TABLET PO SCH (10:13)
[2020-01-22] MEDS: ROFLUMILAST 500 MCG TABLET PO SCH (10:13)
[2020-01-22] MEDS: MULTIVITAMIN TABLET PO SCH (10:13)
[2020-01-22] MEDS: PREDNISONE 20 MG TABLET PO SCH ×2 (10:13→18:07)
[2020-01-22] MEDS: FUROSEMIDE 40 MG TABLET PO SCH (10:13)
[2020-01-22] MEDS: VITAMIN B COMPLEX TABLET PO SCH (10:13)
[2020-01-22] MEDS: LISINOPRIL 5 MG TABLET PO SCH (10:13)
[2020-01-22] MEDS: AMIODARONE HCL 200 MG TABLET PO SCH (10:14)
[2020-01-22] MEDS: FLUTICASONE/VILANTEROL 200-25 MCG/DOSE IH SCH (10:14)
[2020-01-22] MEDS: PANTOT AC/MIN OIL/PET HY-PHL OINT 50 GM TOP SCH ×2 (10:14→18:10)
--- NOTE | 2020-01-22 10:39 | PDOC PROGRESS REPORT ---
Subjective Progress Note for:: 01/22/20 Subjective:: No adverse events overnight. His chief complaint is that he is on a fluid restriction. He apparently is very noncompliant at home. He still has very coarse breath sounds. He had and greater than outs the last couple of days. I had to cut his fluid restriction down even more. He was at 2 L today, I have cut him down to 1200 mL's today. He was upset about that. I tried to explain to him why were doing it but that was not good enough for him. Reason For Visit: COMMUNITY AQUIRED PNEUMONIA,COPD,CIRRHOSIS OF LIVE Physical Exam Vital Signs: Temp Pulse Resp BP Pulse Ox 97.4 F 80 20 107/61 98 01/22/20 08:16 01/22/20 08:16 01/22/20 08:16 01/22/20 08:16 01/22/20 04:39 Intake & Output 01/21/20 01/22/20 01/23/20 06:59 06:59 06:59 Intake Total 1715 2424 Output Total 1125 1075 Balance 590 1349 Weight 82.6 kg 85.4 kg General appearance: PRESENT: no acute distress, cooperative, well-developed, wel l-nourished Respiratory exam: PRESENT: prolonged expiratory phas, rhonchi, symmetrical, unlabored, other - Baseline oxygen requirement. ABSENT: rales, wheezes Cardiovascular exam: PRESENT: tachycardia. ABSENT: diastolic murmur, rubs, systolic murmur Pulses: PRESENT: normal dorsalis pedis pul Vascular exam: PRESENT: normal capillary refill GI/Abdominal exam: PRESENT: normal bowel sounds, soft. ABSENT: distended, guarding, mass, organolmegaly, rebound, tenderness Gentrourinary exam: PRESENT: indwelling catheter Extremities exam: PRESENT: full ROM. ABSENT: calf tenderness, clubbing, pedal edema Musculoskeletal exam: PRESENT: ambulatory Neurological exam: PRESENT: Drowsy but arousable, awake, oriented to person, oriented to place, oriented to time, oriented to situation Psychiatric exam: PRESENT: appropriate affect, normal mood. Skin exam: PRESENT: dry, intact, warm. ABSENT: cyanosis, rash Results Laboratory Results: 01/20/20 08:20 01/21/20 05:30 01/12/20 11:34 CK-MB (CK-2) 2.08 Troponin I 0.040 NT-Pro-B Natriuret Pep 45110 H Impressions: Chest X-Ray 01/18/20 00:00 IMPRESSION: 1. Since the prior examination dated 01/14/2020, decreasing left mid lung zone opacity. 2. Question of left mid-lower lung zone pulmonary nodules. A follow-up examination is suggested which include nipple markers. Assessment and Plan - Diagnosis (1) Acute on chronic combined systolic and diastolic congestive heart failure Is this a current diagnosis for this admission?: Yes Plan: Acute exacerbation had resolved, but he continues to have a very congested sounding cough and has been drinking more water than his fluid restriction allows. Echocardiogram last month that showed an ejection fraction of 20% with grade 1/4 diastolic failure and moderate pulmonary hypertension. He presented for a preoperative stress test, but when he arrived Dr. Sandoval evaluated him and deemed him not only inappropriate for the stress test but requiring admission. Cardiology is consulted; medication management per Dr. Comer. Continue oral amiodarone. Continue low-dose lisinopril and Toprol-XL twice daily. oral furosemide. Continue atorvastatin therapy. Cardiac diet. Daily weights, strict I&O's. Have cut back some on his allowed amount of fluids per day. (2) COPD (chronic obstructive pulmonary disease) Qualifiers: COPD type: COPD with acute exacerbation Qualified Code(s): J44.1 - Chronic obstructive pulmonary disease with (acute) exacerbation Is this a current diagnosis for this admission?: Yes Plan: Now with acute exacerbation, which is improving, breathing more comfortably at rest. continues to have coarse rhonchi and congested breath sounds throughout. No wheezing present Continue supplemental oxygen as needed to maintain >89% Continue scheduled and as needed nebulizer treatments. On Levaquin for left lower lobe pneumonia. Continue Breo. Transition to oral prednisone Continue Mucinex twice daily, Singulair, and Daliresp (given patient's multiple admissions with exacerbation) Continue pulmonary toilet with incentive spirometer, flutter valve, and ambulation. (3) Cirrhosis Qualifiers: Hepatic cirrhosis type: unspecified hepatic cirrhosis Ascites presence: without ascites Qualified Code(s): K74.60 - Unspecified cirrhosis of liver Is this a current diagnosis for this admission?: Yes (4) Community acquired pneumonia Qualifiers: Laterality: left Lung location: lower lobe of lung Qualified Code(s): J18.9 - Pneumonia, unspecified organism Is this a current diagnosis for this admission?: Yes Plan: Continue antibiotics (5) Dependence on supplemental oxygen Is this a current diagnosis for this admission?: Yes (6) Acute and chronic respiratory failure Qualifiers: Respiratory failure complication: hypoxia Qualified Code(s): J96.21 - Acute and chronic respiratory failure with hypoxia Is this a current diagnosis for this admission?: Yes Plan: Continue supplemental O2 to maintain SPO2 greater than 90% - Time Time Spent with patient: 15-24 minutes
--- NOTE | 2020-01-22 12:06 | Progress Note ---
Provider Note Provider Note: CARDIOLOGY PROGRESS NOTE by Dr. Lorenza Sandoval on 01/22/2020. SUBJECTIVE: The patient keeps complaining about his fluid restriction. The importance of fluid restriction has been this case with the patient in detail and I have asked him today to chew on ice chips if he feels thirsty. The absolute importance of fluid restriction has been repeatedly explained to the patient by me and the hospital physician Dr. Hadley. There is no arrhythmia seen on the monitor. The patient denies any chest pain or discomfort. His shortness of breath is much improved. There is no PND orthopnea. He has only trace leg edema. There is no recurrence of nonsustained ventricular tachycardia or ventricular tachycardia. There is no TIA CVA symptoms. PHYSICAL EXAMINATION: The patient's appears to be a frail build and chronically ill looking. He is malnourished. Selected Entries 01/22/20 08:16 Temperature 97.4 F Temperature Oral Source Pulse Rate 80 Respiratory 20 Rate Blood Pressure 107/61 Blood Pressure 76 Mean BP Location Left Arm Oxygen Flow 3.00 Rate Oxygen Delivery Nasal Cannula Method HEAD: Is atraumatic normocephalic. EYES: Pupils are equal round regular reactive to light accommodation. Extraocular movements are normal. There is no conjunctival pallor. There is no scleral icterus. EARS: Tympanic membranes are intact. External auditory canals are clear. NOSE: There is no deviated nasal septum. There is no inflammation of the nasal mucous membrane. MOUTH: Mucous noted in the mouth are moist tongue is moist. There is no ulcers. There is no bleeding from the gums. THROAT: There is no redness of the oropharynx. There is no exudates. SKIN: There is no skin rashes or skin lesions. There is no particular ecchymosis. NECK: Is supple. There is JVD present carotids are equal there is no bruits. There is no lymphadenopathy. There is no goiter. There is no accessory muscle respiration use. Trachea central LUNGS: There is diminished air entry and prolonged expiration. On percussion there is hyperresonance. He has scattered rhonchi and few end expiratory wheezing. He has dry crackles in both the bases along with fine rales of CHF. HEART: S1-S2 is heard. S1 is of normal intensity. There is no S3 gallop. There is no S4 g allop. There is systolic murmur left sternal border and the apex there is no rub. ABDOMEN: Is obese. Nontender. There is no hepatosplenomegaly. Bowel sounds are well heard. There is no tender areas . There is right inguinal hernia present. EXTREMITIES: Femorals are deep. Femorals are diminished. Leg pulses are diminished. There is trace bilateral pedal edema present. There is no DVT. There is no cellulitis. There is no calf tenderness. There is no sinus or clubbing. Capillary refill is normal. 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 PSYCHIATRIC: The patient judgment insight are intact, and his affect is normal. The patient's 24-hour intake is 2424mL. The patient's 24-hour output is 1075 mL. Chest X-Ray 01/12/20 10:28 IMPRESSION: Left lower lobe pneumonia. No significant change. Chest X-Ray 01/12/20 11:41 IMPRESSION: NO PNEUMOTHORAX FOLLOWING CENTRAL LINE PLACEMENT. Chest X-Ray 01/14/20 06:00 IMPRESSION: 1. Left basilar opacity and small left pleural effusion are stable. 2. Cardiomegaly Chest X-Ray 01/18/20 00:00 IMPRESSION: 1. Since the prior examination dated 01/14/2020, decreasing left mid lung zone opacity. 2. Question of left mid-lower lung zone pulmonary nodules. A follow-up examination is suggested which include nipple markers. IMPRESSION/RECOMMENDATION: 1. Acute on chronic respiratory failure: This is a combination of acute exacerbation of COPD, pneumonia, bronchitis, and congestive heart failure. 2. Acute on chronic systolic left and right systolic heart failure: Continue the patient on beta-sarina and MILAGRO inhibitor. Continue diuretics. We will stop the patient's dopamine. 3 Acute exacerbation of COPD. And left lower lobe pneumonia: Continue antibiotics continue respiratory treatments and oxygen. Continue patient on antibiotics. The patient does not want to be on Breo which was prescribed since we do not have Symbicort. In view of the patient continued wheezing will change the patient respiratory treatments to Xopenex and discontinue the patient's DuoNeb's. The patient's air is wanting more than the every 6 hours interval of nebulized treatments. We will also add Solu-Cortef since this has a little more mineralocorticoid and may help in getting the patient's blood pressure up. This is in view of the patient's continued wheezing. We will start tapering the steroids. 4 Nonsustained ventricular tachycardia: Patient magnesium was low this is being replaced. But in view of the patient's severe LV dysfunction . No recurrence of nonsustained ventricular tachycardia with the patient being on amiodarone. We will decrease the amiodarone to 200 mg daily. There is no recurrence. In view of the patient's lung status. The patient amiodarone and restart only if there is recurrence of sustained or nonsustained ventricular tachycardia. The patient as an outpatient be referred for an AICD. 5. 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 Continue anti-cardiomyopathy treatment as per gold standard which is being done. 6.oronary artery disease: History of myocardial infarction in the past: No evidence of anginal symptoms. The patient had resting part of the stress test Cardiolite done today. Later when the patient's heart failure stabilized will do stress Cardiolite stress test later. 7 Multifocal atrial tachycardia: With amiodarone the patient's heart rate is just above 100. We will continue amiodarone. 8 Hypertension: At present blood pressure is on the lower side, but is acceptable. 9.History of cirrhosis of the liver: Secondary to chronic alcohol abuse. 10. Hypomagnesemia. Will replace magnesium. 11. Anemia patient receiving blood transfusion. 12. History of alcohol abuse and tobacco abuse disorder. Ill effects of alcohol and tobacco have been discussed with the patient tobacco cessation counseling was done. This took about 4 minutes. 13.. Hyperlipidemia: Due to its interaction simvastatin has been discontinued and the patient has been started on atorvastatin. 14. Noncompliance with medication and lifestyle, diet and physicians office visits. Medications reviewed. Medications adjusted. Medical regimen and management pl an discussed with attending physician. Medical decision making is of moderate complexity. 40 minutes spent as patient with more than 50% of time spent direct patient care. Will follow.
[2020-01-22] MEDS: MONTELUKAST SODIUM 10 MG TABLET PO SCH (22:17)
[2020-01-22] MEDS: TRAMADOL HCL 50 MG TABLET PO PRN (22:18)
[2020-01-22] MEDS: ATORVASTATIN CALCIUM 20 MG TABLET PO SCH (22:19)
[2020-01-23] MEDS: IPRATROPIUM BROMIDE 0.02% NEB 0.5 MG/2.5 ML AMPUL NEB SCH ×3 (02:34→13:55)
[2020-01-23] MEDS: LEVALBUTEROL HCL NEB 0.63 MG/3 ML AMPUL NEB SCH ×3 (02:34→13:55)
[2020-01-23] MEDS: MORPHINE SULFATE 10 MG/ML INJ IV PRN (03:17)
[2020-01-23] MEDS: HEPARIN SOD (PORCINE) 5,000 UNIT/ML 1 ML VIAL SUBCUT SCH ×2 (05:51→13:04)
[2020-01-23] MEDS: GABAPENTIN 400 MG CAPSULE PO SCH ×2 (06:34→13:03)
[2020-01-23] MEDS: BUDESONIDE NEB 0.5 MG/2 ML AMPUL NEB SCH (08:31)
[2020-01-23 08:58] LABS: HEMATOCRIT 30.9 % (37.9-51.0); HEMOGLOBIN 9.9 g/dL (13.5-17.0); MEAN CORPUSCULAR HEMOGLOBIN 25.6 pg (27.0-33.4); MEAN CORPUSCULAR HGB CONC 32.1 g/dL (32.0-36.0); MEAN CORPUSCULAR VOLUME 80 fl (80-97); PLATELET COUNT 217 10^3/uL (150-450); RED BLOOD COUNT 3.87 10^6/uL (4.35-5.55); RED CELL DISTRIBUTION WIDTH 18.1 % (11.5-14.0)
[2020-01-23 09:34] LABS: ANION GAP 7 (5-19); BLOOD UREA NITROGEN 56 mg/dL (7-20); CALCIUM 8.5 mg/dL (8.4-10.2); CARBON DIOXIDE 29 mmol/L (22-30); CHLORIDE 97 mmol/L (98-107); GLUCOSE 208 mg/dL (75-110)
--- NOTE | 2020-01-23 09:37 | Progress Note ---
Provider Note Provider Note: CARDIOLOGY PROGRESS NOTE by Dr. Lorenza Sandoval on 01/23/2020 SUBJECTIVE: The patient denies any chest pain discomfort. Shortness of breath is back to baseline. There is no PND orthopnea. There is no arrhythmia seen on the monitor. The patient denies any cough or sputum production. He only has trace leg edema. The patient is anxious and wants to go home. For the first time the patient has been compliant and his intake is less than his output. Physical EXAMINATION: The patient should not is chronically ill looking and malnourished. He is in no acute distress. Selected Entries 01/23/20 01/23/20 08:31 08:40 Temperature 97.4 F Temperature Axillary Source Pulse Rate 94 Respiratory 18 Rate BP Location Left Arm BP Position Supine O2 Sat by Pulse 100 Oximetry Oxygen Flow 4.00 Rate Oxygen Delivery Nasal Cannula Method HEAD: Is atraumatic normocephalic. EYES: Pupils are equal round regular reactive to light accommodation. Extraocular movements are normal. There is no conjunctival pallor. There is no scleral icterus. EARS: Tympanic membranes are intact. External auditory canals are clear. NOSE: There is no deviated nasal septum. There is no inflammation of the nasal mucous membrane. MOUTH: Mucous noted in the mouth are moist tongue is moist. There is no ulcers. There is no bleeding from the gums. THROAT: There is no redness of the oropharynx. There is no exudates. SKIN: There is no skin rashes or skin lesions. There is no particular ecchymosis. NECK: Is supple. There is JVD present carotids are equal there is no bruits. There is no lymphadenopathy. There is no goiter. There is no accessory muscle respiration use. Trachea central LUNGS: There is diminished air entry and prolonged expiration. On percussion there is hyperresonance. He has scattered rhonchi and few end expiratory wheezing. He has dry crackles in both the bases along with fine rales of CHF. HEART: S1-S2 is heard. S1 is of normal intensity. There is no S3 gallop. There is no S4 gallop. There is systolic murmur left sternal border and the apex there is no rub. ABDOMEN: Is obese. Nontender. There is no hepatosplenomegaly. Bowel sounds are well heard. There is no tender areas . There is right inguinal hernia present. EXTREMITIES: Femorals are deep. Femorals are diminished. Leg pulses are diminished. There is trace bilateral pedal edema present. There is no DVT. There is no cellulitis. There is no calf tenderness. There is no sinus or clubbing. Capillary refill is normal. 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 PSYCHIATRIC: The patient judgment insight are intact, and his affect is normal. Patient's 24-hour intake is 1220 mL, and output is 1450 mL. Labs- All tests 24 hr 01/23/20 01/23/20 08:45 08:45 WBC 16.0 H RBC 3.87 L Hgb 9.9 L Hct 30.9 L MCV 80 MCH 25.6 L MCHC 32.1 RDW 18.1 H Plt Count 217 Sodium 133.1 L Potassium 5.0 Chloride 97 L Carbon Dioxide 29 Anion Gap 7 BUN 56 H Creatinine 1.23 Est GFR ( Amer) > 60 Est GFR (MDRD) Non-Af 58 L Glucose 208 H Calcium 8.5 Chest X-Ray 01/12/20 10:28 IMPRESSION: Left lower lobe pneumonia. No significant change. Chest X-Ray 01/12/20 11:41 IMPRESSION: NO PNEUMOTHORAX FOLLOWING CENTRAL LINE PLACEMENT. Chest X-Ray 01/14/20 06:00 IMPRESSION: 1. Left basilar opacity and small left pleural effusion are stable. 2. Cardiomegaly Chest X-Ray 01/18/20 00:00 IMPRESSION: 1. Since the prior examination dated 01/14/2020, decreasing left mid lung zone opacity. 2. Question of left mid-lower lung zone pulmonary nodules. A follow-up examination is suggested which include nipple markers. IMPRESSION/RECOMMENDATION: 1. Acute on chronic respiratory failure: This is a combination of acute exacerbation of COPD, pneumonia, bronchitis, and congestive heart failure. 2. Acute on chronic systolic left and right systolic heart failure: Continue the patient on beta-sarina and MILAGRO inhibitor. Continue diuretics. We will stop the patient's dopamine. 3 Acute exacerbation of COPD. And left lower lobe pneumonia: Continue antibiotics continue respiratory treatments and oxygen. Continue patient on antibiotics. The patient does not want to be on Breo which was prescribed since we do not have Symbicort. In view of the patient continued wheezing will change the patient respiratory treatments to Xopenex and discontinue the patient's DuoNeb's. The patient's air is wanting more than the every 6 hours interval of nebulized treatments. We will also add Solu-Cortef since this has a little more mineralocorticoid and may help in getting the patient's blood pressure up. This is in view of the patient's continued wheezing. We will start tapering the steroids. 4 Nonsustained ventricular tachycardia: Patient magnesium was low this is being replaced. But in view of the patient's severe LV dysfunction . No recurrence of nonsustained ventricular tachycardia with the patient being on amiodarone. We will decrease the amiodarone to 200 mg daily. There is no recurrence. In view of the patient's lung status. The patient amiodarone and restart only if there is recurrence of sustained or nonsustained ventricular tachycardia. The patient as an outpatient be referred for an AICD. 5. 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 Continue anti-cardiomyopathy treatment as per gold standard which is being done. 6.oronary artery disease: History of myocardial infarction in the past: No evidence of anginal symptoms. The patient had resting part of the stress test Cardiolite done today. Later when the patient's heart failure stabilized will do stress Cardiolite stress test later. 7 Multifocal atrial tachycardia: With amiodarone the patient's heart rate is just above 100. We will continue amiodarone. 8 Hypertension: At present blood pressure is on the lower side, but is acceptable. 9.History of cirrhosis of the liver: Secondary to chronic alcohol abuse. 10. Hypomagnesemia. Will replace magnesium. 11. Anemia patient receiving blood transfusion. 12. History of alcohol abuse and tobacco abuse disorder. Ill effects of alcohol and tobacco have been discussed with the patient tobacco cessation counseling was done. This took about 4 minutes. 13.. Hyperlipidemia: Due to its interaction simvastatin has been discontinued and the patient has been started on atorvastatin. 14. Noncompliance with medication and lifestyle, diet and physicians office visits. Medications reviewed. Medications adjusted. Medical regimen and management plan discussed with attending physician. Medical decision making is of moderate complexity. Patient is very anxious to go home and vehemently requests that he be discharged. Cardiac status is stable. Hence will sign off and follow the patient as an outpatient. 40 minutes spent as patient with more than 50% of time spent direct patient care.
[2020-01-23] MEDS: PREDNISONE 20 MG TABLET PO SCH (09:38)
[2020-01-23] MEDS: MAGNESIUM OXIDE 400 MG TABLET PO SCH (09:38)
[2020-01-23] MEDS: LISINOPRIL 5 MG TABLET PO SCH (09:39)
[2020-01-23] MEDS: FUROSEMIDE 40 MG TABLET PO SCH (09:39)
[2020-01-23] MEDS: FOLIC ACID 1 MG TABLET PO SCH (09:39)
[2020-01-23] MEDS: FLUTICASONE/VILANTEROL 200-25 MCG/DOSE IH SCH ×2 (09:39→09:44)
[2020-01-23] MEDS: VITAMIN B COMPLEX TABLET PO SCH (09:39)
[2020-01-23] MEDS: GUAIFENESIN 600 MG TABLET.SA PO SCH (09:39)
[2020-01-23] MEDS: MULTIVITAMIN TABLET PO SCH (09:39)
[2020-01-23] MEDS: ROFLUMILAST 500 MCG TABLET PO SCH (09:39)
[2020-01-23] MEDS: METOPROLOL SUCCINATE 25 MG TAB.SR.24H PO SCH (09:39)
[2020-01-23] MEDS: PANTOT AC/MIN OIL/PET HY-PHL OINT 50 GM TOP SCH (09:40)
--- NOTE | 2020-01-23 14:09 | PDOC DISCHARGE SUMMARY ---
Impression - Admit/DC Date/PCP Admission Date/Primary Care Provider: 01/12/20 12:36 GENNY ZARCO MD Discharge Date: 01/23/20 - Discharge Diagnosis (1) Acute on chronic combined systolic and diastolic congestive heart failure Is this a current diagnosis for this admission?: Yes (2) COPD (chronic obstructive pulmonary disease) Is this a current diagnosis for this admission?: Yes (3) Cirrhosis Is this a current diagnosis for this admission?: Yes (4) Community acquired pneumonia Is this a current diagnosis for this admission?: Yes (5) Dependence on supplemental oxygen Is this a current diagnosis for this admission?: Yes (6) Acute and chronic respiratory failure Is this a current diagnosis for this admission?: Yes - Additional Information Resuscitation Status: Full Code Discharge Diet: Cardiac Discharge Activity: Activity As Tolerated, Balance Activity w/Rest, Weigh Daily Referrals: GENNY ZARCO MD [Primary Care Provider] - 01/26/20 12:30 pm () Prescriptions: Roflumilast [Daliresp 500 Mcg Tablet] 500 mcg PO DAILY #30 tablet Prednisone [Deltasone 20 mg Tablet] 40 mg PO DAILY #10 tablet Furosemide [Lasix 40 mg Tablet] 40 mg PO DAILY #30 tablet Metoprolol Succinate [Toprol Xl 25 mg Tab.sr] 25 mg PO Q12 #60 tab.sr.24h Home Medications: Folic Acid [Folvite 1 mg Tablet] 1 mg PO DAILY 10/16/19 Gabapentin [Neurontin 300 mg Capsule] 1,200 mg PO Q8 10/16/19 Ketoconazole 1 applic TOP TIDP PRN 10/16/19 Cyanocobalamin (Vitamin B-12) [Vitamin B-12 Inj 1000 Mcg/1 ml Vial] 1,000 mcg IM .MONTHLY 12/01/19 Simvastatin [Zocor 40 mg Tablet] 40 mg PO QHS 12/01/19 Albuterol Sulfate [Ventolin Hfa 8 gm Mdi (1 Mdi/ER Disp)] 2 puff IH Q6HP PRN #1 inhaler 12/11/19 Lisinopril [Prinivil 5 mg Tablet] 2.5 mg PO DAILY #30 tablet 12/11/19 Budesonide/Formoterol Fumarate [Symbicort HFA 160-4.5 mcg Inhaler 6 gm] 2 puff IH Q12 01/12/20 Tramadol HCl [Ultram] 100 mg PO Q8HP PRN 01/12/20 Furosemide [Lasix 40 mg Tablet] 40 mg PO DAILY #30 tablet 01/23/20 Metoprolol Succinate [Toprol Xl 25 mg Tab.sr] 25 mg PO Q12 #60 tab.sr.24h 01/23/20 Prednisone [Deltasone 20 mg Tablet] 40 mg PO DAILY #10 tablet 01/23/20 Roflumilast [Daliresp 500 Mcg Tablet] 500 mcg PO DAILY #30 tablet 01/23/20 History of Present Illiness History of Present Illness: DURAN TELLES is a 69 year old male with severe left ventricular dysfunction. Echocardiogram last month revealed an EF of only 20%. He was just discharged from [facility] December 10 after being on dobutamine and dopamine and he is back already. He presented for a stress test for preoperative evaluation to surgically address the right inguinal hernia but when Dr. oCmer saw him in the stress test lab he sent him to the emergency department. He states that he has never really felt much better than when he discharged from the hospital and in fact over the last several days he began noticing lower extremity edema. He states that he did not change his medications at all. There is a history of poor compliance, ongoing tobacco use and a history of alcohol dependence. He also has chronic anemia which could be affecting his cardiac status. At the time of this presentation his blood pressure was borderline low. It is necessary to hold some of his antihypertensive medications because of this. Dr. Zarco did contact me and we discussed the plan of dobutamine infusion after admission. On the admission evaluation his albumin, potassium and sodium were low. His hemoglobin is lower than usual. It was only 8.6 and this could be adversely affecting his cardiac function. His brain natruretic peptide was 11,900 and this is up from the 4900 the time of discharge last month. He will be admitted to [facility]. A central line was placed in the emergency department. He is starting dobutamine infusion and will be seen by Dr. Zarco as well. Hospital Course Hospital Course: He was given some extra diuretic and this got some extra fluid off of him, but he was still having a lot of trouble breathing, and it was felt like that he actually had a COPD exacerbation. He was treated for this and he has since responded and his breathing is back to baseline. He will complete a burst of prednisone at home, and he had Daliresp added to his home medication regimen. His home Lasix has been increased from 20 mg a day to 40 mg a day. We were trying to get better heart rate control on him but his blood pressure was on the low side. Amiodarone was started, but this was reconsidered because of his poor pulmonary condition. Instead, his beta-sarina has been slightly increased from Toprol-XL 12.5 mg twice a day to 25 mg twice a day. He is very frail, and he is very noncompliant. He was very upset about a fluid restriction, saying that at home he drinks whatever he wants. We told him that that is why he has wound up several times in the hospital with heart failure. I do not have any confidence that he is going to go home and abide by his fluid restriction, and we will probably be seeing him back in the hospital again very soon, despite the fact that he has close follow-up in 3 days with his apron man Dr. Zarco. He required combined dopamine and dobutamine for several days in the hospital. Surprisingly, he got up independently and ambulated with a walker in the hallway 300 feet with standby assist from physical therapy. To look at him he would not think he would be able to do this, however, he did. He was discharged home today in stable condition. He was on his usual level of oxygen support at discharge, which is 3 to 4 L per nasal cannula. Physical Exam Vital Signs: Temp Pulse Resp BP Pulse Ox 97.7 F 85 7 L 93/54 L 99 01/23/20 11:54 01/23/20 11:54 01/23/20 11:54 01/23/20 11:54 01/23/20 11:54 Intake & Output 01/22/20 01/23/20 01/24/20 06:59 06:59 06:59 Intake Total 2424 1220 495 Output Total 1075 1450 Balance 1349 -230 495 Weight 85.4 kg 85.9 kg General appearance: PRESENT: no acute distress, cooperative, well-developed, well-nourished Respiratory exam: PRESENT: prolonged expiratory phas, rhonchi, symmetrical, unlabored, other - Baseline oxygen requirement. ABSENT: rales, wheezes Cardiovascular exam: PRESENT: tachycardia. ABSENT: diastolic murmur, rubs, systolic murmur Pulses: PRESENT: normal dorsalis pedis pul Vascular exam: PRESENT: normal capillary refill GI/Abdominal exam: PRESENT: normal bowel sounds, soft. ABSENT: distended, guarding, mass, organolmegaly, rebound, tenderness Gentrourinary exam: PRESENT: indwelling catheter Extremities exam: PRESENT: full ROM. ABSENT: calf tenderness, clubbing, pedal edema Musculoskeletal exam: PRESENT: ambulatory Neurological exam: PRESENT: Drowsy but arousable, awake, oriented to person, oriented to place, oriented to time, oriented to situation Psychiatric exam: PRESENT: appropriate affect, normal mood. Skin exam: PRESENT: dry, intact, warm. ABSENT: cyanosis, rash Results Laboratory Results: WBC 16.0 10^3/uL (4.0-10.5) H 01/23/20 08:45 RBC 3.87 10^6/uL (4.35-5.55) L 01/23/20 08:45 Hgb 9.9 g/dL (13.5-17.0) L 01/23/20 08:45 Hct 30.9 % (37.9-51.0) L 01/23/20 08:45 MCV 80 fl (80-97) 01/23/20 08:45 MCH 25.6 pg (27.0-33.4) L 01/23/20 08:45 MCHC 32.1 g/dL (32.0-36.0) 01/23/20 08:45 RDW 18.1 % (11.5-14.0) H 01/23/20 08:45 Plt Count 217 10^3/uL (150-450) 01/23/20 08:45 Lymph % (Auto) 10.5 % (13-45) L 01/15/20 01:58 Young % (Auto) 9.0 % (3-13) 01/15/20 01:58 Eos % (Auto) 4.2 % (0-6) 01/15/20 01:58 Baso % (Auto) 1.1 % (0-2) 01/15/20 01:58 Absolute Neuts (auto) 8.5 10^3/uL (1.7-8.2) H 01/15/20 01:58 Absolute Lymphs (auto) 1.2 10^3/uL (0.5-4.7) 01/15/20 01:58 Absolute Monos (auto) 1.0 10^3/uL (0.1-1.4) 01/15/20 01:58 Absolute Eos (auto) 0.5 10^3/uL (0.0-0.6) 01/15/20 01:58 Absolute Basos (auto) 0.1 10^3/uL (0.0-0.2) 01/15/20 01:58 Seg Neutrophils % 75.2 % (42-78) 01/15/20 01:58 PT 18.1 SEC (11.4-15.4) H 01/12/20 11:34 INR 1.48 01/12/20 11:34 APTT 33.2 SEC (23.5-35.8) 01/12/20 11:34 Carbonic Acid 1.73 mmol/L (1.05-1.35) H 01/18/20 16:47 HCO3/H2CO3 Ratio 16:1 01/18/20 16:47 ABG pH 7.32 (7.35-7.45) L 01/18/20 16:47 ABG pCO2 57.5 mmHg (35-45) H 01/18/20 16:47 ABG pO2 94.7 mmHg (80-100) 01/18/20 16:47 ABG HCO3 29.0 mmol/L (20-24) H 01/18/20 16:47 ABG Total CO2 30.8 mmol/L (23-27) H 01/18/20 16:47 ABG O2 Saturation 96.5 % (94-98) 01/18/20 16:47 ABG Base Excess 2.1 mmol/L 01/18/20 16:47 VBG pH 7.41 (7.30-7.42) 01/12/20 13:07 VBG pCO2 49.0 mmHg (35-63) 01/12/20 13:07 VBG HCO3 30.6 mmol/L (20-32) 01/12/20 13:07 VBG Base Excess 5.4 mmol/L 01/12/20 13:07 FiO2 3L 01/18/20 16:47 Sodium 133.1 mmol/L (137-145) L 01/23/20 08:45 Potassium 5.0 mmol/L (3.6-5.0) 01/23/20 08:45 Chloride 97 mmol/L (98-107) L 01/23/20 08:45 Carbon Dioxide 29 mmol/L (22-30) 01/23/20 08:45 Anion Gap 7 (5-19) 01/23/20 08:45 BUN 56 mg/dL (7-20) H 01/23/20 08:45 Creatinine 1.23 mg/dL (0.52-1.25) 01/23/20 08:45 Est GFR ( Amer) > 60 (>60) 01/23/20 08:45 Est GFR (MDRD) Non-Af 58 (>60) L 01/23/20 08:45 Glucose 208 mg/dL (75-110) H 01/23/20 08:45 POC Glucose 116 mg/dL (70-110) H 01/15/20 08:04 Calcium 8.5 mg/dL (8.4-10.2) 01/23/20 08:45 Magnesium 1.7 mg/dL (1.6-2.3) 01/16/20 06:35 Total Bilirubin 0.3 mg/dL (0.2-1.3) 01/19/20 15:15 Direct Bilirubin 0.1 mg/dL (0.0-0.4) 01/19/20 15:15 Neonat Total Bilirubin Not Reportable 01/19/20 15:15 Neonat Direct Bilirubin Not Reportable 01/19/20 15:15 Neonat Indirect Bili Not Reportable 01/19/20 15:15 AST 30 U/L (17-59) 01/19/20 15:15 ALT 19 U/L (<50) 01/19/20 15:15 Alkaline Phosphatase 118 U/L (38-126) 01/19/20 15:15 CK-MB (CK-2) 2.08 ng/mL (<4.55) 01/12/20 11:34 Troponin I 0.040 ng/mL 01/12/20 11:34 NT-Pro-B Natriuret Pep 40133 pg/mL (<125) H 01/12/20 11:34 Total Protein 6.4 g/dL (6.3-8.2) 01/19/20 15:15 Albumin 2.9 g/dL (3.5-5.0) L 01/19/20 15:15 Lipase 16.5 U/L (23-300) L 01/12/20 11:34 Urine Color DARK YELLOW 01/12/20 14:06 Urine Appearance CLEAR 01/12/20 14:06 Urine pH 5.0 (5.0-9.0) 01/12/20 14:06 Ur Specific [place] 1.025 01/12/20 14:06 Urine Protein 30 mg/dL (NEGATIVE) H 01/12/20 14:06 Urine Glucose (UA) NEGATIVE mg/dL (NEGATIVE) 01/12/20 14:06 Urine Ketones NEGATIVE mg/dL (NEGATIVE) 01/12/20 14:06 Urine Blood NEGATIVE (NEGATIVE) 01/12/20 14:06 Urine Nitrite NEGATIVE (NEGATIVE) 01/12/20 14:06 Urine Bilirubin NEGATIVE (NEGATIVE) 01/12/20 14:06 Urine Urobilinogen 4.0 mg/dL (<2.0) H 01/12/20 14:06 Ur Leukocyte Esterase NEGATIVE (NEGATIVE) 01/12/20 14:06 Urine WBC (Auto) 1 /HPF 01/12/20 14:06 Urine RBC (Auto) 0 /HPF 01/12/20 14:06 U Hyaline Cast (Auto) 3 /LPF 01/12/20 14:06 Squamous Epi Cells Auto 1 /HPF 01/12/20 14:06 Urine Mucus (Auto) RARE /LPF 01/12/20 14:06 Urine Ascorbic Acid NEGATIVE (NEGATIVE) 01/12/20 14:06 Blood Type O POSITIVE 01/14/20 09:57 Blood Type Confirm O POSITIVE 01/14/20 10:05 Antibody Screen NEGATIVE 01/14/20 09:57 Crossmatch See Detail 01/14/20 09:57 01/12/20 11:34 CK-MB (CK-2) 2.08 Troponin I 0.040 NT-Pro-B Natriuret Pep [id number] H Impressions: Chest X-Ray 01/12/20 10:28 IMPRESSION: Left lower lobe pneumonia. No significant change. Chest X-Ray 01/12/20 11:41 IMPRESSION: NO PNEUMOTHORAX FOLLOWING CENTRAL LINE PLACEMENT. Chest X-Ray 01/14/20 06:00 IMPRESSION: 1. Left basilar opacity and small left pleural effusion are stable. 2. Cardiomegaly Chest X-Ray 01/18/20 00:00 IMPRESSION: 1. Since the prior examination dated 01/14/2020, decreasing left mid lung zone opacity. 2. Question of left mid-lower lung zone pulmonary nodules. A follow-up examination is suggested which include nipple markers. Plan Time Spent: Greater than 30 Minutes Stroke Is this a Stroke Patient?: No Acute Heart Failure - Is this a Heart Failure Patient?: Yes Documentation of LVEF assessment?: Yes LVEF < 40%?: Yes-if yes answer questions a through e a) Discharged on ACEI?: Yes b) Discharges on ARB?: No-document contraindications Reason(s) not discharged on ARB: Other - On MILAGRO inhibitor c) Discharged on ARNI?: No-Document Contraindications Reason(s) not discharged on ARNI: ACEI use within the prior 36 hours, NYHA Class I or IV d) Discharged on evidence-based Beta sarina(carvedilol, sustained release metoprolol succinate, or bisoprolol)?: Yes e) For LVEF <35%, discharged on Aldosterone antagonist?: No-document contraincations Reason(s) not discharged on Aldosterone antagonist for LVEF < 35%: Hyperkalemia 3. Anticoagulant therapy for permanect/persistent/paraoxysmal Afib or Aflutter: N/A Follow-up Appointment scheduled within 7 days?: Yes
[2020-01-23 15:31] VITALS: BP 107/60
== END 2020-01-23 16:23 | disposition home health service (06) | DRG 291 ==
LOC: ER 09:59 → EH 12:36 → 3W 17:41
PROVIDERS: ADMIT Hospitalist; ATTEND Family Medicine
PROC: 05HM33Z Insertion of Infusion Device into Right Internal Jugular Vein, Percutaneous Approach (ICD-10-PCS; principal; 2020-01-12)
PROC: 30233N1 Transfusion of Nonautologous Red Blood Cells into Peripheral Vein, Percutaneous Approach (ICD-10-PCS; 2020-01-14)
DX: I11.0 Hypertensive heart disease with heart failure (principal); J18.9 Pneumonia, unspecified organism; J96.21 Acute and chronic respiratory failure with hypoxia; J44.1 Chronic obstructive pulmonary disease with (acute) exacerbation; J44.0 Chronic obstructive pulmonary disease with (acute) lower respiratory infection; E87.1 Hypo-osmolality and hyponatremia; I47.2 Ventricular tachycardia; I50.43 Acute on chronic combined systolic (congestive) and diastolic (congestive) heart failure; I42.0 Dilated cardiomyopathy; F17.210 Nicotine dependence, cigarettes, uncomplicated; I25.10 Atherosclerotic heart disease of native coronary artery without angina pectoris; I87.8 Other specified disorders of veins; E03.9 Hypothyroidism, unspecified; K70.30 Alcoholic cirrhosis of liver without ascites; K40.90 Unilateral inguinal hernia, without obstruction or gangrene, not specified as recurrent; I73.9 Peripheral vascular disease, unspecified; D64.9 Anemia, unspecified; F10.20 Alcohol dependence, uncomplicated; F43.10 Post-traumatic stress disorder, unspecified; I95.89 Other hypotension; E87.6 Hypokalemia; I25.5 Ischemic cardiomyopathy; E78.5 Hyperlipidemia, unspecified; E83.42 Hypomagnesemia; I27.20 Pulmonary hypertension, unspecified; Z91.11 Patient's noncompliance with dietary regimen; Z91.19 Patient's noncompliance with other medical treatment and regimen; Z88.1 Allergy status to other antibiotic agents; Z88.0 Allergy status to penicillin; Z88.6 Allergy status to analgesic agent; Z99.81 Dependence on supplemental oxygen; Z90.49 Acquired absence of other specified parts of digestive tract; I25.2 Old myocardial infarction; Z82.49 Family history of ischemic heart disease and other diseases of the circulatory system; Z82.5 Family history of asthma and other chronic lower respiratory diseases
CPT/HCPCS: 36415; 36430; 71045; 80048; 80053; 81001; 82553; 82803; 82962; 83690; 83735; 83880; 84484; 85025; 85027; 85610; 85730; 86850; 86900; 86901; 86920; 87040; 87070; 93005; 93010; 94640; 94660; 96365; 96375; 99285; J0610; J1250; J1265; J1644; J1720; J1940; J1956; J2270; J3475; J3490; J7040; J7512; J7614; J7620; P9016

== ENCOUNTER → 2020-01-12 | Outpatient (CLI) | payer OTHER | LOC: RAD 01-04 07:07 | PROVIDERS: ATTEND Specialist | DX: R06.02 Shortness of breath (principal) | CPT/HCPCS: 93306; 78451; A9500; Q9969 ==

== ENCOUNTER 2020-01-24 03:19 | Inpatient (IN) | payer OTHER, MEDICARE ==
--- NOTE | 2020-01-24 06:16 | RADIOLOGY REPORT (SQ) ---
EXAM DESCRIPTION: XR CHEST 1 VIEW COMPLETED DATE/TME: 01/24/2020 03:27 CLINICAL HISTORY: 69 years, Male, sob COMPARISON: 01/18/2020 chest NUMBER OF VIEWS: 1 TECHNIQUE: Portable chest LIMITATIONS: None. FINDINGS: Stable cardiomegaly. Atheromatous change thoracic aorta. There is been removal of the central venous catheter. Low lung volumes. Mild prominence of the pulmonary interstitium with minimal blunting of the costophrenic angles bilaterally. No pneumothorax. Post surgical change left clavicle IMPRESSION: Cardiomegaly. Low lung volumes with mild interstitial prominence likely reflecting interstitial edema. Tiny effusions and/or pleural thickening copyright 2010 [employer]- All Rights Reserved
--- NOTE | 2020-01-24 06:49 | ER Document Report ---
ED General <ALE ELIZONDO Mario - Last Filed: 01/24/20 12:50> - General TRAVEL OUTSIDE OF THE [place] IN LAST 30 DAYS: No <CARLA CROOKS - Last Filed: 01/30/20 16:02> - General Chief Complaint: Breathing Difficulty Stated Complaint: DIFFICULTY BREATHING Time Seen by Provider: 01/24/20 03:46 - HPI Notes: 69-year-old male history of CHF, COPD on 3 L home O2, asthma, diabetes, hep C cirrhosis presents with shortness of breath. Patient was previously admitted to the hospital discharge approximately 1 day prior to arrival had a approximately 1 week inpatient hospitalization during which she was worked up for shortness of breath for COPD versus CHF versus pneumonia. Patient was discharged on prednisone standing albuterol and increased dose of Lasix which he says he was compliant with and did not have any relief of his shortness of breath and so act ivated EMS. Patient endorses having a scantly productive nonbloody cough chronically times many years that has not been acutely changed. Patient denies any chest pain, fever, abdominal pain, acute change in symptoms, drug use. Patient is active smoker. (CARLA CROOKS) - Related Data Allergies/Adverse Reactions: vancomycin Allergy (Unknown, Verified 01/24/20 07:23) azithromycin Allergy (Verified 01/24/20 07:23) hydrocodone Allergy (Verified 01/24/20 07:23) Penicillins Allergy (Verified 01/30/20 11:29) acetaminophen Adverse Reaction (Verified 01/24/20 07:23) ketorolac [From Toradol] Adverse Reaction (Verified 01/24/20 07:23) Nausea Past Medical History - General Information source: Patient - Social History Smoking Status: Current Every Day Smoker Frequency of alcohol use: None Drug Abuse: None Family History: CAD, COPD, Hypertension, Malignancy Patient has homicidal ideation: No - Past Medical History Cardiac Medical History: Reports: Hx Congestive Heart Failure, Hx Coronary Artery Disease, Hx Heart Attack, Hx Hypertension, Hx Peripheral Vascular Disease - Chronic venous stasis Denies: Hx Atrial Fibrillation, Hx DVT, Hx Hypercholesterolemia, Hx Pulmonary Embolism Pulmonary Medical History: Reports: Hx Asthma, Hx Bronchitis, Hx COPD, Hx Pneumonia, Hx Respiratory Failure Neurological Medical History: Denies: Hx Seizures Endocrine Medical History: Reports: Hx Hypothyroidism. Denies: Hx Diabetes Mellitus Type 1, Hx Diabetes Mellitus Type 2, Hx Hyperthyroidism GI Medical History: Reports: Hx Cirrhosis - Alcoholic cirrhosis, Hx Hiatal Hernia. Denies: Hx Crohn's Disease, Hx Hepatitis, Hx Ulcerative Colitis Musculoskeletal Medical History: Denies Hx Arthritis, Denies Hx Gout Skin Medical History: Denies Hx Eczema, Denies Hx Psoriasis Psychiatric Medical History: Reports: Hx Post Traumatic Stress Disorder Denies: Hx Depression Infectious Medical History: Denies: Hx Hepatitis Past Surgical History: Reports: Hx Abdominal Surgery, Hx Cholecystectomy, Hx Orthopedic Surgery - Left knee surgery, left wrist surgery, Other - Gallbladder - Immunizations Immunizations up to date: Yes Hx Diphtheria, Pertussis, Tetanus Vaccination: Yes Hx Pneumococcal Vaccination: 09/14/16 <CARLA CROOKS - Last Filed: 01/30/20 16:02> Review of Systems <CARLA CROOKS - Last Filed: 01/30/20 16:02> - Review of Systems Notes: REVIEW OF SYSTEMS: CONSTITUTIONAL : Denies fever, chills, or sweats. EENT: Denies recent cold/sinus symptoms, denies throat pain CARDIOVASCULAR: Denies chest pain, CHERELLE RESPIRATORY: +cough, + shortness of breath. GASTROINTESTINAL: Denies abdominal pain, nausea/vomiting. GENITOURINARY: Denies difficulty urinating, painful urination. FEMALE GENITOURINARY: Denies abnormal vaginal bleeding, vaginal discharge. MUSCULOSKELETAL: Denies neck pain, back pain. SKIN: Denies rash or skin lesions. HEMATOLOGIC : Denies easy bruising or bleeding. LYMPHATIC: Denies swollen, enlarged glands. NEUROLOGICAL: Denies headache, denies change in gait. PSYCHIATRIC: Denies anxiety or stress or depression. (CARLA CROOKS) Physical Exam <CARLA CROOKS - Last Filed: 01/30/20 16:02> - Vital signs Vitals: Pulse Ox 97 01/24/20 03:19 - Notes Notes: PHYSICAL EXAMINATION: GENERAL: Chronically ill-appearing anasarcic elderly male appearing older than stated age lying in stretcher with nasal cannula mildly tachypneic but in no acute distress HEAD: Atraumatic, normocephalic. EYES: Pupils equal round and appropriate constriction, sclera anicteric, con junctiva are normal. ENT: nares patent, moist mucous membranes. NECK: Normal range of motion, supple without lymphadenopathy, several IV access points on right neck without any signs of infection LUNGS: Mildly tachypneic but able to speak in full sentences, nasal cannula in place, good air movement but prolonged expiratory phase and scattered expiratory wheezing HEART: Regular rate and rhythm without murmurs ABDOMEN: Soft, nontender, no guarding, massive ascites with hepatosplenomegaly and caput medusae, healed surgical incisions without any tenderness, no CVAT, enlarged nonerythematous nontender genitalia EXTREMITIES: Massive bilateral symmetrical pitting edema to groin NEUROLOGICAL: Awake, alert, conversing appropriately, moves all extremities spontaneously. PSYCH: Normal mood, normal affect. SKIN: Warm, diffusely weeping edema (CARLA CROOKS) Course - Laboratory Result Diagrams: 01/24/20 06:50 01/24/20 06:50 <ALE ELIZONDO - Last Filed: 01/24/20 12:50> - Laboratory Result Diagrams: 01/30/20 10:45 01/30/20 10:45 <CARLA CROOKS - Last Filed: 01/30/20 16:02> - Re-evaluation Re-evalutation: 01/24/20 10:35 Case discussed with hospitalist staff regarding results of laboratory that were pending. Dr. Tan will be assess patient. (ALE ELIZONDO) 01/24/20 08:20 Patient bounced back with shortness of breath after discharge for as shortness of breath with multifactorial etiology. Initially hypoxic with EMS to 80 but received nebs in route and Solu-Medrol 125 and has had stable respiratory status in ED. Central line placed because of this of inability to obtain IV access secondary to anasarca. Patient to be turned over to day attending as labs still pending. Discussed case with hospitalist GUERRERO Muir and will turn over patient to Dr. Elizondo pending labs. (CARLA CROOSK) - Vital Signs Vital signs: Temp Pulse Resp BP Pulse Ox 97.9 F 82 14 120/69 82 L 01/30/20 11:50 01/30/20 14:00 01/30/20 11:50 01/30/20 11:50 01/30/20 11:50 - Laboratory Laboratory results interpreted by me: 01/24/20 01/24/20 01/24/20 06:50 06:50 06:58 RBC 3.69 L Hgb 9.5 L Hct 28.9 L MCV 78 L MCH 25.8 L RDW 17.9 H Seg Neuts % (Manual) 99 H Lymphocytes % (Manual) 1 L Monocytes % (Manual) 0 L Abs Neuts (Manual) 9.2 H Abs Lymphs (Manual) 0.1 L Abs Monocytes (Manual) 0.0 L Sodium 133.2 L Potassium 5.3 H Chloride 97 L Carbon Dioxide 33 H Anion Gap 3 L BUN 58 H Glucose 119 H Alkaline Phosphatase 140 H NT-Pro-B Natriuret Pep 50171 H Total Protein 6.0 L Albumin 2.8 L 01/25/20 04:47 RBC Hgb Hct MCV MCH RDW Seg Neuts % (Manual) Lymphocytes % (Manual) Monocytes % (Manual) Abs Neuts (Manual) Abs Lymphs (Manual) Abs Monocytes (Manual) Sodium 133.7 L Potassium Chloride 95 L Carbon Dioxide 39 H Anion Gap 0 L BUN 57 H Glucose Alkaline Phosphatase NT-Pro-B Natriuret Pep Total Protein Albumin - EKG Interpretation by Me Additional EKG results interpreted by me: 01/24/20 04:00 normal sinus rhythm, rate 96, no significant ST elevations/depressions, no significant t wave abnormalities, QTc 435 (CARLA CROOKS) Procedures - Central Line Right Internal jugular Time completed: 06:46 Consent obtained: Yes Central line pre-insertion: Sterile PPE donned, Chloraprep applied, Sterile drapes applied Central line size (Fr.): 7 Central line lumen type: Triple Anesthetic type: 1% Lidocaine mL's of anesthesia: 5 Ultrasound guided: Yes CM at insertion site: 13 Line secured with sutures: No Central line post-insertion: Blood return from lumens, Biopatch applied, Sterile dressing applied, Position confirmed w/ CXR Number of attempts: 1 Complications: No <CARLA CROOKS - Last Filed: 01/30/20 16:02> - Central Line Right Internal jugular Notes: 01/24/20 06:48 Patient tolerated procedure without complication, remained stable on monitor, no adverse events. (CARLA CROOKS) Discharge - Discharge Admitting Provider: Britney (Hospitalist) Unit Admitted: [facility] <ALE ELIZONDO - Last Filed: 01/24/20 12:50> <CARLA CROOKS - Last Filed: 01/30/20 16:02> - Discharge Clinical Impression: Shortness of breath Congestive heart failure Qualifiers: Heart failure type: combined systolic and diastolic Heart failure chronicity: acute on chronic Qualified Code(s): I50.43 - Acute on chronic combined systolic (congestive) and diastolic (congestive) heart failure Condition: Fair Disposition: ADMITTED OBSERVATION
[2020-01-24] MEDS ORDERED: FUROSEMIDE INJ/PF 100 MG/10 ML SDV IV ONE (06:52)
[2020-01-24] MEDS ORDERED: IPRATROPIUM/ALBUTEROL 0.5-2.5 MG/3 ML AMPUL NEB ONE (06:52)
[2020-01-24 07:06] LABS: HEMATOCRIT 28.9 % (37.9-51.0); HEMOGLOBIN 9.5 g/dL (13.5-17.0); MEAN CORPUSCULAR HEMOGLOBIN 25.8 pg (27.0-33.4); MEAN CORPUSCULAR VOLUME 78 fl (80-97); PLATELET COUNT 162 10^3/uL (150-450); RED BLOOD COUNT 3.69 10^6/uL (4.35-5.55); RED CELL DISTRIBUTION WIDTH 17.9 % (11.5-14.0); WHITE BLOOD COUNT 9.3 10^3/uL (4.0-10.5)
[2020-01-24 07:07] LABS: INTERNATIONAL RATION (INR) 1.19; PROTHROMBIN TIME 15.2 SEC (11.4-15.4)
[2020-01-24 07:08] LABS: PARTIAL THROMBOPLASTIN TIME 31.8 SEC (23.5-35.8)
--- NOTE | 2020-01-24 07:23 | RADIOLOGY REPORT (SQ) ---
CLINICAL HISTORY: central line placement COMPARISON: January 24, 2020. TECHNIQUE: XR CHEST 1 VIEW 01/24/2020 6:43 AM CDT FINDINGS: The heart is mildly enlarged. Lungs are clear without consolidation, atelectasis, mass or edema. There is no pleural effusion. There is no pneumothorax. There are no acute osseous findings. Right IJ central line tip is in the cavoatrial junction. IMPRESSION: No pneumothorax following right IJ central line placement.
[2020-01-24 07:29] LABS: ALBUMIN 2.8 g/dL (3.5-5.0); ALKALINE PHOSPHATASE 140 U/L (38-126); ASPARTATE AMINO TRANSFERASE 58 U/L (17-59); BILIRUBIN,TOTAL 0.3 mg/dL (0.2-1.3); BLOOD UREA NITROGEN 58 mg/dL (7-20); CALCIUM 8.5 mg/dL (8.4-10.2); CHLORIDE 97 mmol/L (98-107); GLUCOSE 119 mg/dL (75-110)
[2020-01-24 07:39] LABS: CARBON DIOXIDE 33 mmol/L (22-30); POTASSIUM 5.3 mmol/L (3.6-5.0)
[2020-01-24 07:40] LABS: TROPONIN I 0.031 ng/mL
[2020-01-24 07:42] LABS: ANION GAP 3 (5-19)
[2020-01-24 08:06] LABS: ABSOLUTE LYMPHOCYTES# (MANUAL) 0.1 10^3/uL (0.5-4.7); BASOPHILS % (MANUAL) 0 % (0-2); EOSINOPHILS % (MANUAL) 0 % (0-6); LYMPHOCYTES % (MANUAL) 1 % (13-45); MONOCYTES % (MANUAL) 0 % (3-13); SEGMENTED NEUTROPHILS % (MAN) 99 % (42-78); TOTAL CELLS COUNTED 100
[2020-01-24 08:09] LABS: ANISOCYTOSIS 1+; HYPOCHROMASIA SLIGHT; OVALOCYTES 1+; PLATELET COMMENT ADEQUATE; POIKILOCYTOSIS SLIGHT; TOXIC GRANULATION SLIGHT
[2020-01-24 08:31] LABS: APPEARANCE,URINE CLEAR; BILIRUBIN,URINE NEGATIVE (NEGATIVE); COLOR,URINE YELLOW; GLUCOSE, URINE NEGATIVE (NEGATIVE); KETONES,URINE NEGATIVE (NEGATIVE)
[2020-01-24 08:32] LABS: LEUKOCYTE ESTERASE,URINE NEGATIVE (NEGATIVE); NITRITE,URINE NEGATIVE (NEGATIVE); PROTEIN,URINE NEGATIVE (NEGATIVE); URINE SPECIFIC GRAVITY 1.014; UROBILINOGEN,URINE NEGATIVE mg/dL (<2.0)
[2020-01-24 08:33] LABS: ADD MANUAL MICROSCOPIC YES
[2020-01-24 08:34] LABS: RBC,URINE NONE SEEN /HPF; WBC,URINE NONE SEEN /HPF
[2020-01-24] MEDS ORDERED: (PENDING PHARMACY ID) (Ketoconazole [Ketoconazole] 1 APPLIC) TOP PRN (12:59)
[2020-01-24] MEDS ORDERED: TRAMADOL HCL 50 MG TABLET PO PRN (12:59)
[2020-01-24] MEDS ORDERED: CYANOCOBALAMIN (VITAMIN B-12) INJ 1000 MCG/1 ML VIAL IM SCH (13:00)
--- NOTE | 2020-01-24 13:23 | PDOC H&P ---
History of Present Illness Admission Date/PCP: GENNY ZARCO MD Patient complains of: Difficulty breathing and shortness of breath as well as generalized swelling. Patient was just discharged from the hospital on January 22 History of Present Illness: DURAN TELLES is a 69 year old male Patient was just discharged on January 22. Was treated for exacerbated congestive heart failure, COPD, cirrhosis, community-acquired pneumonia, chronic respiratory failure acute. Returns today with the complaint of difficulty breathing. He was not really communicative as he said his uncomfortable. There is no complaint of chest pain. His BNP is elevated at 12,400 however this appears to be near his baseline range. It was 11,980 on January 11. Patient is followed by Dr. Zarco and so will reconsult him to manage this patient if needed.Echocardiogram reveals ejection fraction of 15 to 20% with severe global hypokinesis. This was from December 2019 Past Medical History Cardiac Medical History: Reports: Congestive Heart Failure, Coronary Artery Disease, Myocardial Infarction, Hypertension, Peripheral Vascular Disease - Chronic venous stasis Denies: Atrial Fibrillation, DVT, Hyperlipidema, Pulmonary Embolism Pulmonary Medical History: Reports: Asthma, Bronchitis, Chronic Obstructive Pul monary Disease (COPD), Pneumonia, Respiratory Failure Neurological Medical History: Denies: Seizures Endocrine Medical History: Reports: Hypothyroidism Denies: Diabetes Mellitus Type 1, Diabetes Mellitus Type 2, Hyperthyroidism GI Medical History: Reports: Cirrhosis - Alcoholic cirrhosis, Hiatal Hernia Denies: Crohn's Disease, Hepatitis, Ulcerative Colitis Musculoskeltal Medical History: Denies: Arthritis, Gout Skin Medical History: Denies: Eczema, Psoriasis Psychiatric Medical History: Reports: Post Traumatic Stress Disorder Denies: Depression Hematology: Reports: Anemia - Chronic Denies: Bleeding Tendencies Past Surgical History Past Surgical History: Reports: Cholecystectomy, Orthopedic Surgery - Left knee surgery, left wrist surgery, Other - Gallbladder Social History Smoking Status: Current Every Day Smoker Frequency of Alcohol Use: None Hx Recreational Drug Use: No Drugs: None Hx Prescription Drug Abuse: No - Advance Directive Resuscitation Status: Full Code Family History Family History: CAD, COPD, Hypertension, Malignancy Parental Family History Reviewed: No Children Family History Reviewed: No Sibling(s) Family History Reviewed.: No Medication/Allergy Home Medications: Folic Acid [Folvite 1 mg Tablet] 1 mg PO DAILY 10/16/19 Gabapentin [Neurontin 300 mg Capsule] 1,200 mg PO Q8 10/16/19 Ketoconazole 1 applic TOP TIDP PRN 10/16/19 Cyanocobalamin (Vitamin B-12) [Vitamin B-12 Inj 1000 Mcg/1 ml Vial] 1,000 mcg IM .MONTHLY 12/01/19 Simvastatin [Zocor 40 mg Tablet] 40 mg PO QHS 12/01/19 Albuterol Sulfate [Ventolin Hfa 8 gm Mdi (1 Mdi/ER Disp)] 2 puff IH Q6HP PRN #1 inhaler 12/11/19 Lisinopril [Prinivil 5 mg Tablet] 2.5 mg PO DAILY #30 tablet 12/11/19 Budesonide/Formoterol Fumarate [Symbicort HFA 160-4.5 mcg Inhaler 6 gm] 2 puff IH Q12 01/12/20 Tramadol HCl [Ultram] 100 mg PO Q8HP PRN 01/12/20 Furosemide [Lasix 40 mg Tablet] 40 mg PO DAILY #30 tablet 01/23/20 Metoprolol Succinate [Toprol Xl 25 mg Tab.sr] 25 mg PO Q12 #60 tab.sr.24h 01/23/20 Prednisone [Deltasone 20 mg Tablet] 40 mg PO DAILY #10 tablet 01/23/20 Roflumilast [Daliresp 500 Mcg Tablet] 500 mcg PO DAILY #30 tablet 01/23/20 Allergies/Adverse Reactions: vancomycin Allergy (Unknown, Verified 01/24/20 07:23) azithromycin Allergy (Verified 01/24/20 07:23) hydrocodone Allergy (Verified 01/24/20 07:23) Penicillins Allergy (Verified 01/24/20 07:23) acetaminophen Adverse Reaction (Verified 01/24/20 07:23) ketorolac [From Toradol] Adverse Reaction (Verified 01/24/20 07:23) Nausea Review of Systems All systems: reviewed and no additional remarkable complaints except as stated Cardiovascular: PRESENT: dyspnea on exertion, edema. ABSENT: chest pain Physical Exam Vital Signs: Temp Pulse Resp BP Pulse Ox 98.2 F 95 15 114/67 100 01/24/20 07:49 01/24/20 03:22 01/24/20 09:01 01/24/20 10:00 01/24/20 10:01 Intake & Output 01/23/20 01/24/20 01/25/20 06:59 06:59 06:59 Intake Total 520 Output Total 480 Balance 40 Weight 94.1 kg General appearance: PRESENT: no acute distress Head exam: ABSENT: atraumatic Eye exam: ABSENT: scleral icterus Mouth exam: ABSENT: dry mucosa Respiratory exam: PRESENT: rhonchi, unlabored Cardiovascular exam: PRESENT: RRR, +S1, +S2 GI/Abdominal exam: PRESENT: other - anasarca Rectal exam: PRESENT: deferred Extremities exam: PRESENT: other - 4+ edema Neurological exam: PRESENT: alert, oriented to person, oriented to place, or iented to time, oriented to situation Skin exam: PRESENT: skin tears - L thigh Results Laboratory Results: 01/24/20 06:50 01/24/20 06:50 01/24/20 01/24/20 01/24/20 06:50 06:50 07:40 WBC 9.3 RBC 3.69 L Hgb 9.5 L Hct 28.9 L MCV 78 L MCH 25.8 L MCHC 33.0 RDW 17.9 H Plt Count 162 Seg Neutrophils % Not Reportable Sodium 133.2 L Potassium 5.3 H Chloride 97 L Carbon Dioxide 33 H Anion Gap 3 L BUN 58 H Creatinine 1.04 Est GFR ( Amer) > 60 Glucose 119 H Lactic Acid 0.7 Calcium 8.5 Total Bilirubin 0.3 AST 58 Alkaline Phosphatase 140 H Total Protein 6.0 L Albumin 2.8 L Urine Color Urine Appearance Urine pH Ur Specific [place] Urine Protein Urine Glucose (UA) Urine Ketones Urine Blood Urine Nitrite Ur Leukocyte Esterase Ur Squamous Epith Cells 01/24/20 08:00 WBC RBC Hgb Hct MCV MCH MCHC RDW Plt Count Seg Neutrophils % Sodium Potassium Chloride Carbon Dioxide Anion Gap BUN Creatinine Est GFR ( Amer) Glucose Lactic Acid Calcium Total Bilirubin AST Alkaline Phosphatase Total Protein Albumin Urine Color YELLOW Urine Appearance CLEAR Urine pH 6.0 Ur Specific [place] 1.014 Urine Protein NEGATIVE Urine Glucose (UA) NEGATIVE Urine Ketones NEGATIVE Urine Blood NEGATIVE Urine Nitrite NEGATIVE Ur Leukocyte Esterase NEGATIVE Ur Squamous Epith Cells FEW 01/24/20 06:58 Troponin I 0.031 NT-Pro-B Natriuret Pep [id number] H Impressions: Chest X-Ray 01/24/20 06:43 IMPRESSION: No pneumothorax following right IJ central line placement. Assessment and Plan - Diagnosis (1) CHF (congestive heart failure) Qualifiers: Heart failure type: combined systolic and diastolic Heart failure chronicity: acute on chronic Qualified Code(s): I50.43 - Acute on chronic combined systolic (congestive) and diastolic (congestive) heart failure Is this a current diagnosis for this admission?: Yes Plan: Will place on Lasix 3 times a day. It appears patient was on dobutamine drip just recently. Not sure how effective Lasix will be but will start with that I will consult Dr. Zarco (2) Shortness of breath Is this a current diagnosis for this admission?: Yes Plan: Secondary to underlying CHF and COPD. Patient is on 3 L of oxygen regularly and he currently is on the same (3) Acute and chronic respiratory failure Qualifiers: Respiratory failure complication: hypoxia Qualified Code(s): J96.21 - Acute and chronic respiratory failure with hypoxia Is this a current diagnosis for this admission?: Yes Plan: Uses 3 L of oxygen chronically - Time Time Spent with patient: 25-34 minutes Anticipated discharge: Home Within: within 48 hours
[2020-01-24] MEDS: FUROSEMIDE INJ/PF 40 MG/4 ML SDV IV SCH ×2 (13:33→22:27)
[2020-01-24] MEDS: GABAPENTIN 300 MG CAPSULE PO SCH ×2 (13:33→22:26)
[2020-01-24] MEDS ORDERED: MORPHINE SULFATE 10 MG/ML INJ IV PRN (17:42)
[2020-01-24] MEDS: GUAIFENESIN 600 MG TABLET.SA PO SCH (22:25)
[2020-01-24] MEDS: SIMVASTATIN 40 MG TABLET PO SCH (22:26)
[2020-01-24] MEDS: METOPROLOL SUCCINATE 25 MG TAB.SR.24H PO SCH (22:26)
[2020-01-24] MEDS: MORPHINE SULFATE 10 MG/ML INJ IV PRN (22:37)
[2020-01-25] MEDS: MORPHINE SULFATE 10 MG/ML INJ IV PRN ×4 (04:43→20:13)
[2020-01-25 05:49] LABS: BLOOD UREA NITROGEN 57 mg/dL (7-20); CALCIUM 8.4 mg/dL (8.4-10.2); CARBON DIOXIDE 39 mmol/L (22-30); GLUCOSE 86 mg/dL (75-110); POTASSIUM 4.6 mmol/L (3.6-5.0)
[2020-01-25 05:55] LABS: CHLORIDE 95 mmol/L (98-107)
[2020-01-25 05:57] LABS: ANION GAP 0 (5-19)
[2020-01-25] MEDS: GABAPENTIN 300 MG CAPSULE PO SCH ×3 (06:30→22:01)
[2020-01-25] MEDS: DOPAMINE HCL 800 MG/D5W 250 ML IV PRN (08:36)
--- NOTE | 2020-01-25 08:38 | EKG REPORT ---
SEVERITY:- ABNORMAL ECG - SINUS RHYTHM BORDERLINE R WAVE PROGRESSION, ANTERIOR LEADS NONSPECIFIC T ABNORMALITIES, LATERAL LEADS : Confirmed by: Mary Man 25-Jan-2020 08:38:15
[2020-01-25] MEDS: FUROSEMIDE INJ/PF 40 MG/4 ML SDV IV SCH ×3 (08:44→22:00)
[2020-01-25] MEDS: GUAIFENESIN 600 MG TABLET.SA PO SCH ×2 (10:50→22:00)
[2020-01-25] MEDS: PREDNISONE 20 MG TABLET PO SCH (10:50)
[2020-01-25] MEDS: METOPROLOL SUCCINATE 25 MG TAB.SR.24H PO SCH ×2 (10:50→21:59)
[2020-01-25] MEDS: ROFLUMILAST 500 MCG TABLET PO SCH (10:50)
[2020-01-25] MEDS: FOLIC ACID 1 MG TABLET PO SCH (10:50)
[2020-01-25] MEDS: ENOXAPARIN SODIUM INJ 30 MG/0.3 ML DISP.SYRIN SUBCUT SCH (10:51)
[2020-01-25] MEDS: LISINOPRIL 5 MG TABLET PO SCH (10:51)
[2020-01-25] MEDS: FLUTICASONE/VILANTEROL 200-25 MCG/DOSE IH SCH (10:51)
[2020-01-25] MEDS: IPRATROPIUM/ALBUTEROL 0.5-2.5 MG/3 ML AMPUL NEB PRN ×2 (11:10→20:37)
[2020-01-25] MEDS: MIDODRINE HCL 5 MG TABLET PO SCH ×2 (13:41→18:18)
--- NOTE | 2020-01-25 14:44 | PDOC PROGRESS REPORT ---
Subjective Progress Note for:: 01/25/20 Subjective:: Patient does admit to feeling better. He feels that his swelling is down and his breathing is improved Reason For Visit: CHF EXCAERBATION Physical Exam Vital Signs: Temp Pulse Resp BP Pulse Ox 97.6 F 77 18 98/51 L 100 01/25/20 03:05 01/25/20 14:00 01/25/20 03:05 01/25/20 13:00 01/25/20 03:05 Intake & Output 01/24/20 01/25/20 01/26/20 06:59 06:59 06:59 Intake Total 1196 Output Total 4355 Balance -3159 Weight 94.1 kg 82.4 kg General appearance: PRESENT: no acute distress Head exam: PRESENT: atraumatic, normocephalic Eye exam: PRESENT: conjunctiva pink, PERRLA. ABSENT: scleral icterus Mouth exam: PRESENT: moist, tongue midline Neck exam: ABSENT: carotid bruit, JVD, lymphadenopathy, thyromegaly Respiratory exam: PRESENT: clear to auscultation rossy, rhonchi - scattered. ABSENT: rales, wheezes Cardiovascular exam: PRESENT: RRR, +S1, +S2. ABSENT: diastolic murmur, rubs, systolic murmur Vascular exam: PRESENT: normal capillary refill GI/Abdominal exam: PRESENT: normal bowel sounds, soft. ABSENT: distended, guarding, mass, organolmegaly, rebound, tenderness Rectal exam: PRESENT: deferred Extremities exam: PRESENT: full ROM, other - anasarca. ABSENT: calf tenderness, clubbing, pedal edema Neurological exam: PRESENT: alert, awake, oriented to person, oriented to place, oriented to time, oriented to situation, CN II-XII grossly intact. ABSENT: motor sensory deficit Psychiatric exam: PRESENT: appropriate affect, normal mood. ABSENT: homicidal ideation, suicidal ideation Skin exam: PRESENT: dry, intact, warm. ABSENT: cyanosis, rash Results Laboratory Results: 01/24/20 06:50 01/25/20 04:47 01/25/20 04:47 Sodium 133.7 L Potassium 4.6 Chloride 95 L Carbon Dioxide 39 H Anion Gap 0 L BUN 57 H Creatinine 1.06 Est GFR ( Amer) > 60 Glucose 86 Calcium 8.4 01/24/20 06:58 Troponin I 0.031 NT-Pro-B Natriuret Pep [id number] H Impressions: Chest X-Ray 01/24/20 06:43 IMPRESSION: No pneumothorax following right IJ central line placement. Assessment and Plan - Diagnosis (1) CHF (congestive heart failure) Qualifiers: Heart failure type: combined systolic and diastolic Heart failure chronicity: acute on chronic Qualified Code(s): I50.43 - Acute on chronic combined systolic (congestive) and diastolic (congestive) heart failure Is this a current diagnosis for this admission?: Yes Plan: Patient is back on dobutamine drip. He appears to be making pretty significant urine output. Is about 3.5 L negative at this point. We will continue with fluid restriction and positive inotrope. (2) Shortness of breath Is this a current diagnosis for this admission?: Yes Plan: Secondary to underlying CHF and COPD. Patient is on 3 L of oxygen regularly and he currently is on the same (3) Acute and chronic respiratory failure Qualifiers: Respiratory failure complication: hypoxia Qualified Code(s): J96.21 - Acute and chronic respiratory failure with hypoxia Is this a current diagnosis for this admission?: Yes Plan: Uses 3 L of oxygen chronically. Patient appears to be at his baseline - Time Time Spent with patient: 25-34 minutes
[2020-01-25] MEDS: SIMVASTATIN 40 MG TABLET PO SCH (22:00)
[2020-01-26] MEDS: GABAPENTIN 300 MG CAPSULE PO SCH ×3 (05:54→22:18)
[2020-01-26] MEDS: FUROSEMIDE INJ/PF 40 MG/4 ML SDV IV SCH (05:54)
[2020-01-26] MEDS: IPRATROPIUM/ALBUTEROL 0.5-2.5 MG/3 ML AMPUL NEB PRN ×2 (08:18→20:10)
[2020-01-26] MEDS: PREDNISONE 20 MG TABLET PO SCH (09:14)
[2020-01-26] MEDS: METOPROLOL SUCCINATE 25 MG TAB.SR.24H PO SCH ×2 (09:14→22:14)
[2020-01-26] MEDS: ROFLUMILAST 500 MCG TABLET PO SCH (09:14)
[2020-01-26] MEDS: FOLIC ACID 1 MG TABLET PO SCH (09:14)
[2020-01-26] MEDS: MIDODRINE HCL 5 MG TABLET PO SCH ×3 (09:15→17:21)
[2020-01-26] MEDS: GUAIFENESIN 600 MG TABLET.SA PO SCH ×2 (09:15→22:19)
[2020-01-26] MEDS: ENOXAPARIN SODIUM INJ 30 MG/0.3 ML DISP.SYRIN SUBCUT SCH (09:15)
[2020-01-26] MEDS: MORPHINE SULFATE 10 MG/ML INJ IV PRN ×4 (09:15→20:47)
[2020-01-26] MEDS: LISINOPRIL 5 MG TABLET PO SCH (09:20)
[2020-01-26] MEDS: FLUTICASONE/VILANTEROL 200-25 MCG/DOSE IH SCH (09:20)
--- NOTE | 2020-01-26 10:38 | PDOC PROGRESS REPORT ---
Subjective Progress Note for:: 01/26/20 Subjective:: Patient does admit to feeling better. He feels that his swelling is down and his breathing is improved Reason For Visit: CHF EXCAERBATION Physical Exam Vital Signs: Temp Pulse Resp BP Pulse Ox 97.4 F 85 20 115/53 L 93 01/26/20 07:45 01/26/20 10:00 01/26/20 08:20 01/26/20 10:00 01/26/20 08:20 Intake & Output 01/25/20 01/26/20 01/27/20 06:59 06:59 06:59 Intake Total 1196 1614 104 Output Total 4355 4850 Balance -5484 -5208 104 Weight 82.4 kg 85 kg General appearance: PRESENT: no acute distress Head exam: PRESENT: atraumatic, normocephalic Eye exam: PRESENT: EOMI, PERRLA. ABSENT: scleral icterus Ear exam: PRESENT: normal external ear exam Mouth exam: PRESENT: moist, tongue midline Neck exam: ABSENT: carotid bruit, JVD, lymphadenopathy, thyromegaly Respiratory exam: PRESENT: clear to auscultation rossy, decreased breath sounds, rhonchi. ABSENT: rales, wheezes Cardiovascular exam: PRESENT: RRR, +S1, +S2. ABSENT: diastolic murmur, rubs, systolic murmur Pulses: PRESENT: normal dorsalis pedis pul Vascular exam: PRESENT: normal capillary refill GI/Abdominal exam: PRESENT: normal bowel sounds, soft. ABSENT: distended, guarding, mass, organolmegaly, rebound, tenderness Rectal exam: PRESENT: deferred Gentrourinary exam: PRESENT: scrotal swelling Extremities exam: PRESENT: full ROM, other - anasarca. ABSENT: calf tenderness, clubbing, pedal edema Neurological exam: PRESENT: alert, awake, oriented to person, oriented to place, oriented to time, oriented to situation, CN II-XII grossly intact. ABSENT: motor sensory deficit Psychiatric exam: PRESENT: appropriate affect, normal mood. ABSENT: homicidal ideation, suicidal ideation Skin exam: PRESENT: dry, intact, warm. ABSENT: cyanosis, rash Results Laboratory Results: 01/24/20 06:50 01/25/20 04:47 01/24/20 06:58 Troponin I 0.031 NT-Pro-B Natriuret Pep [id number] H Impressions: Chest X-Ray 01/24/20 06:43 IMPRESSION: No pneumothorax following right IJ central line placement. Assessment and Plan - Diagnosis (1) CHF (congestive heart failure) Qualifiers: Heart failure type: combined systolic and diastolic Heart failure chronicity: acute on chronic Qualified Code(s): I50.43 - Acute on chronic combined systolic (congestive) and diastolic (congestive) heart failure Is this a current diagnosis for this admission?: Yes Plan: Patient is back on dobutamine drip. He appears to be making pretty significant urine output. Is about 3.5 L negative at this point. We will continue with fluid restriction and positive inotrope. 01/25 patient continues to diurese. He is fluid balance cumulatively is negative. His edema even visually seems to be improving. We will continue with dobutamine drip. I have also decrease his Lasix as his blood pressure seems to be somewhat lower than his baseline. He is diuresing well. (2) Shortness of breath Is this a current diagnosis for this admission?: Yes Plan: Secondary to underlying CHF and COPD. Patient is on 3 L of oxygen regularly and he currently is on the same (3) Acute and chronic respiratory failure Qualifiers: Respiratory failure complication: hypoxia Qualified Code(s): J96.21 - Acute and chronic respiratory failure with hypoxia Is this a current diagnosis for this admission?: Yes Plan: This is improved. Is on his usual 3 L of oxygen - Plan Summary Summary: Continue with current management with adjustment in his Lasix dose
--- NOTE | 2020-01-26 14:50 | Progress Note ---
Provider Note Provider Note: CARDIOLOGY PROGRESS NOTE by Dr. Lorenza Goddard on 01/26/2020. OBJECTIVE: Note the patient's blood pressure last night was in the 80s although he was asymptomatic. His dopamine was dialed up to 5 mcg/kg/min. At present his blood pressure is just above 100. The patient still complains of shortness of breath but there is no PND orthopnea. There is no chest pains he continues to have cough and states he is producing scanty green sputum. His leg edema is slightly improved. But he still has mild pedal edema bilaterally. He denies any palpitations. There is no arrhythmia seen on the monitor. PHYSICAL EXAMINATION: The patient is a frail build and appears to be malnourished and chronically ill. Selected Entries 01/26/20 01/26/20 12:23 13:00 Temperature 98.3 F Temperature Oral Source Pulse Rate 78 Heart Rate ( 74 Monitors) Respiratory 16 Rate Blood Pressure 116/64 O2 Sat by Pulse 97 Oximetry Oxygen Flow 3.50 Rate Oxygen Delivery Nasal Cannula Method HEAD: Is atraumatic normocephalic. EYES: Pupils are equal round regular reactive to light accommodation. Extraocular movements are normal. There is no conjunctival pallor. There is no scleral icterus. EARS: Tympanic membranes are intact. External auditory canals are clear. NOSE: There is no deviated nasal septum. There is no inflammation nasal mucous membrane. MOUTH: Mucous membranes of the mouth are moist. Tongue is moist there is no ulcers. There is no bleeding from the gums THROAT: There is no redness of the oropharynx. There is no exudates. SKIN: There is no skin rashes. There is no skin lesions. There is no petechia or ecchymosis. NECK: Is supple there is mild JVD present. Carotids are equal there is no bruits. There is no lymphadenopathy. There is no goiter. There is no accessory muscle respiration use. Trachea central. LUNGS: There is diminished air entry prolonged expiration. Scattered rhonchi and mild end expiratory wheezing. There is no rales of CHF. On percussion there is hyperresonance. HEART: S1-S2 is heard. There is no S3 gallop. There is no S4 gallop. Systolic murmur left sternal border and the apex there is no rub. ABDOMEN: Soft. There is no definite hepatosplenomegaly. There is questionable ascites present. There is a reducible right inguinal hernia present there is no tender areas masses. EXTREMITIES: Femorals are diminished. There is no femoral bruits. Leg pulses are diminished. There is mild pedal edema bilaterally. There is no DVT or cellulitis. There is no calf tenderness. There is no cyanosis or clubbing. CLEATER: The patient is conscious awake alert oriented x3 with no focal deficits. PSYCHIATRIC the patient judgment insight are intact her affect is normal. Patient's 24-hour intake is 1614, 24-hour output is 4850 mL. Chest X-Ray 01/24/20 03:27 IMPRESSION: Cardiomegaly. Low lung volumes with mild interstitial prominence likely reflecting interstitial edema. Tiny effusions and/or pleural thickening copyright 2011 [employer]- All Rights Reserved Chest X-Ray 01/24/20 06:43 IMPRESSION: No pneumothorax following right IJ central line placement. IMPRESSION/recommendation: 1. 1. Hypotension: Most likely secondary to pump failure.. The patient's dopamine has been increased. The patient also is on midodrine will continue the same. 2. Acute on chronic systolic heart failure: Although the chest x-ray does not show CHF patient is JVD is elevated consistent with chronic heart failure with acute exacerbation. We will stop the patient's IV Lasix and change to IV Bumex. 3. COPD with exacerbation: Continue bronchodilators and consider steroids and antibiotics. 4. Coronary artery disease: No anginal symptoms. History of prior MD 5. Dilated cardiomyopathy with severely reduced LV ejection fraction. Continue lisinopril and beta-sarina. Later would be recommended for referral for AICD placement. This will be done once the patient's cardiac and pulmonary status stabilizes. 6. Alcoholic cirrhosis by history: Patient counseled to avoid alcohol 7. History of hypertension: At present blood pressure low 8. History of tobacco abuse disorder: Patient counseled to refrain from smoking. 9. Right inguinal hernia: At present no evidence of obstruction or incarceration. 10. Chronic pain syndrome: Patient on gabapentin. 11. Hyperlipidemia: Continue statins. Medications reviewed. Medical regimen and management plan discussed with attending provider. Medical decision making is of high complexity in view of the need for inotropic support for the patient's blood pressure. 40 minutes spent with patient more than 50% time spent in direct patient care. Will follow
[2020-01-26] MEDS: BUMETANIDE INJ/PF 1 MG/4 ML SDV IV SCH (15:22)
[2020-01-26] MEDS: DOPAMINE HCL 800 MG/D5W 250 ML IV PRN (17:57)
[2020-01-26] MEDS ORDERED: FUROSEMIDE INJ/PF 40 MG/4 ML SDV IV SCH (22:00)
[2020-01-26] MEDS: SIMVASTATIN 40 MG TABLET PO SCH (22:19)
[2020-01-27] MEDS: MORPHINE SULFATE 10 MG/ML INJ IV PRN ×5 (00:57→22:16)
[2020-01-27] MEDS: BUMETANIDE INJ/PF 1 MG/4 ML SDV IV SCH ×3 (05:30→17:16)
[2020-01-27] MEDS: GABAPENTIN 300 MG CAPSULE PO SCH ×3 (05:34→22:06)
[2020-01-27 06:59] LABS: ABSOLUTE EOSINOPHILS # (AUTO) 0.2 10^3/uL (0.0-0.6); ABSOLUTE LYMPHOCYTES (AUTO) 1.2 10^3/uL (0.5-4.7); ABSOLUTE MONOCYTES (AUTO) 1.3 10^3/uL (0.1-1.4); ABSOLUTE NEUT (AUTO) 8.9 10^3/uL (1.7-8.2); EOSINOPHILS % (AUTO) 1.6 % (0-6); HEMATOCRIT 29.3 % (37.9-51.0); HEMOGLOBIN 9.7 g/dL (13.5-17.0); LYMPHOCYTES % (AUTO) 10.5 % (13-45); MEAN CORPUSCULAR HEMOGLOBIN 25.8 pg (27.0-33.4); MEAN CORPUSCULAR HGB CONC 33.2 g/dL (32.0-36.0); MEAN CORPUSCULAR VOLUME 78 fl (80-97); MONOCYTES % (AUTO) 11.5 % (3-13); PLATELET COUNT 172 10^3/uL (150-450); RED BLOOD COUNT 3.76 10^6/uL (4.35-5.55); RED CELL DISTRIBUTION WIDTH 18.2 % (11.5-14.0); SEGMENTED NEUTROPHILS % (AUTO) 76.4 % (42-78); TOTAL CELLS COUNTED % (AUTO) 100 %; WHITE BLOOD COUNT 11.6 10^3/uL (4.0-10.5)
[2020-01-27 07:15] LABS: BLOOD UREA NITROGEN 44 mg/dL (7-20); CALCIUM 8.3 mg/dL (8.4-10.2); CHLORIDE 94 mmol/L (98-107); GLUCOSE 132 mg/dL (75-110); POTASSIUM 3.9 mmol/L (3.6-5.0)
[2020-01-27 07:17] LABS: ANION GAP 3 (5-19)
[2020-01-27 07:20] LABS: CARBON DIOXIDE 40 mmol/L (22-30)
[2020-01-27] MEDS: SPIRONOLACTONE 25 MG TABLET PO SCH (09:33)
[2020-01-27] MEDS: METOPROLOL SUCCINATE 25 MG TAB.SR.24H PO SCH ×2 (09:33→22:07)
[2020-01-27] MEDS: MIDODRINE HCL 5 MG TABLET PO SCH ×3 (09:33→17:16)
[2020-01-27] MEDS: LISINOPRIL 5 MG TABLET PO SCH ×2 (09:33→22:06)
[2020-01-27] MEDS: FOLIC ACID 1 MG TABLET PO SCH (09:33)
[2020-01-27] MEDS: ROFLUMILAST 500 MCG TABLET PO SCH (09:33)
[2020-01-27] MEDS: GUAIFENESIN 600 MG TABLET.SA PO SCH ×2 (09:33→22:05)
[2020-01-27] MEDS: ENOXAPARIN SODIUM INJ 30 MG/0.3 ML DISP.SYRIN SUBCUT SCH (09:33)
[2020-01-27] MEDS: PREDNISONE 20 MG TABLET PO SCH (09:33)
[2020-01-27] MEDS: FLUTICASONE/VILANTEROL 200-25 MCG/DOSE IH SCH (09:34)
[2020-01-27] MEDS: IPRATROPIUM/ALBUTEROL 0.5-2.5 MG/3 ML AMPUL NEB PRN ×2 (09:43→19:36)
--- NOTE | 2020-01-27 14:02 | PDOC PROGRESS REPORT ---
Subjective Progress Note for:: 01/27/20 Subjective:: Patient does admit to feeling better. He feels that his swelling is down and his breathing is improved He states that he is unable to come be compliant with the extreme fluid restriction he is currently on 1 L and says he cannot do this when he gets home. Is requesting that I increase his fluid intake and I have increased it to 1200 mL. I did explain the rationale of fluid restriction to him. I explained the severity of his heart failure and patient briskly indicated that this was all news to him although I know that from previous admissions he has been well made aware of his precarious condition Reason For Visit: CHF EXCAERBATION Physical Exam Vital Signs: Temp Pulse Resp BP Pulse Ox 97.7 F 76 16 121/70 94 01/27/20 11:37 01/27/20 11:37 01/27/20 11:37 01/27/20 11:37 01/27/20 11:37 Intake & Output 01/26/20 01/27/20 01/28/20 06:59 06:59 06:59 Intake Total 1614 1771 444 Output Total 4850 3750 825 Balance -3236 -1979 -381 Weight 85 kg 84.4 kg General appearance: PRESENT: no acute distress Head exam: PRESENT: atraumatic, normocephalic Eye exam: PRESENT: conjunctiva pink, EOMI. ABSENT: scleral icterus Ear exam: PRESENT: normal external ear exam Mouth exam: PRESENT: moist Neck exam: ABSENT: carotid bruit, JVD, lymphadenopathy, thyromegaly Respiratory exam: PRESENT: decreased breath sounds, rhonchi, unlabored. ABSENT: rales, wheezes Cardiovascular exam: PRESENT: RRR, +S1, +S2. ABSENT: diastolic murmur, rubs, systolic murmur Pulses: PRESENT: normal dorsalis pedis pul Vascular exam: PRESENT: normal capillary refill GI/Abdominal exam: PRESENT: normal bowel sounds, soft. ABSENT: distended, guarding, mass, organolmegaly, rebound, tenderness Rectal exam: PRESENT: deferred Extremities exam: PRESENT: full ROM, other - anasarca. ABSENT: calf tenderness, clubbing, pedal edema Neurological exam: PRESENT: alert, awake, oriented to person, oriented to place, oriented to time, oriented to situation, CN II-XII grossly intact. ABSENT: motor sensory deficit Psychiatric exam: PRESENT: appropriate affect, normal mood. ABSENT: homicidal ideation, suicidal ideation Skin exam: PRESENT: dry, intact, warm. ABSENT: cyanosis, rash Results Laboratory Results: 01/27/20 06:10 01/27/20 06:10 01/27/20 01/27/20 06:10 06:10 WBC 11.6 H RBC 3.76 L Hgb 9.7 L Hct 29.3 L MCV 78 L MCH 25.8 L MCHC 33.2 RDW 18.2 H Plt Count 172 Seg Neutrophils % 76.4 Sodium 137.0 Potassium 3.9 Chloride 94 L Carbon Dioxide 40 H* Anion Gap 3 L BUN 44 H Creatinine 0.76 Est GFR ( Amer) > 60 Glucose 132 H Calcium 8.3 L 01/24/20 01/27/20 06:58 06:10 Troponin I 0.031 NT-Pro-B Natriuret Pep [id number] H 09405 H Impressions: Chest X-Ray 01/24/20 06:43 IMPRESSION: No pneumothorax following right IJ central line placement. Assessment and Plan - Diagnosis (1) CHF (congestive heart failure) Qualifiers: Heart failure type: combined systolic and diastolic Heart failure chronicity: acute on chronic Qualified Code(s): I50.43 - Acute on chronic combined systolic (congestive) and diastolic (congestive) heart failure Is this a current diagnosis for this admission?: Yes Plan: Patient is back on dobutamine drip. He appears to be making pretty significant urine output. Is about 3.5 L negative at this point. We will continue with fluid restriction and positive inotrope. 01/25 patient continues to diurese. He is fluid balance cumulatively is negative. His edema even visually seems to be improving. We will continue with dobutamine drip. I have also decrease his Lasix as his blood pressure seems to be somewhat lower than his baseline. He is diuresing well. 01/26 continue with current management. Patient is actually on dopamine and not dobutamine. Afraid his compliance is pretty poor and he will require repeated hospitalizations. I have liberalized his fluid intake a little bit as patient was really asking for some fluids. We will continue to reinforce CHF education and have encouraged him to be compliant as much as he can as his survival and quality of life partly depend on this (2) Shortness of breath Is this a current diagnosis for this admission?: Yes Plan: Secondary to underlying CHF and COPD. Patient is on 3 L of oxygen regularly and he currently is on the same (3) Acute and chronic respiratory failure Qualifiers: Respiratory failure complication: hypoxia Qualified Code(s): J96.21 - Acute and chronic respiratory failure with hypoxia Is this a current diagnosis for this admission?: Yes Plan: This is improved. Continue 3 L of oxygen - Plan Summary Summary: Continue with current management with adjustment in his Lasix dose - Time Time Spent with patient: 25-34 minutes Medications reviewed and adjusted accordingly: Yes Anticipated discharge: Home Within: within 72 hours
--- NOTE | 2020-01-27 20:40 | Progress Note ---
Provider Note Provider Note: CARDIOLOGY PROGRESS NOTE by Dr. Lorenza Sandoval on 01/27/2020. SUBJECTIVE: The patient states that shortness of breath is improved. His blood pressure is also much improved. Hence we will decrease the patient's dopamine to 2.5 mcg/kg/min. He denies any chest pain or discomfort. There is no PND orthopnea. He has says his cough is much improved and is nonproductive. There is no further wheezing but the patient is scattered rhonchi. He is more compliant with intake of fluids. He has had 1771 last 24 hours. There is no arrhythmia seen on the monitor. His leg edema is also improving PHYSICAL EXAMINATION: The patient is a frail build and appears to be chronically ill and malnourished. Selected Entries 01/27/20 01/27/20 11:37 13:00 Temperature 97.7 F Temperature Oral Source Pulse Rate 76 82 Respiratory 16 Rate Blood Pressure 121/70 114/63 Blood Pressure 87 Mean BP Location Right Arm BP Position Supine O2 Sat by Pulse 94 Oximetry Oxygen Flow 3.00 Rate Oxygen Delivery Nasal Cannula Method HEAD: Is atraumatic normocephalic. EYES: Pupils are equal round regular reactive to light accommodation. Extraocular movements are normal. There is no conjunctival pallor. There is no scleral icterus. EARS: Tympanic membranes are intact. External auditory canals are clear. NOSE: There is no deviated nasal septum. There is no inflammation nasal mucous membrane. MOUTH: Mucous membranes of the mouth are moist. Tongue is moist there is no ulcers. There is no bleeding from the gums THROAT: There is no redness of the oropharynx. There is no exudates. SKIN: There is no skin rashes. There is no skin lesions. There is no petechia or ecchymosis. NECK: Is supple there is mild JVD present. Carotids are equal there is no bruits. There is no lymphadenopathy. There is no goiter. There is no accessory muscle respiration use. Trachea central. LUNGS: There is diminished air entry prolonged expiration. Scattered rhonchi and mild end expiratory wheezing. There is no rales of CHF. On percussion there is hyperresonance. HEART: S1-S2 is heard. There is no S3 gallop. There is no S4 gallop. Systolic murmur left sternal border and the apex there is no rub. ABDOMEN: Soft. There is no definite hepatosplenomegaly. There is questionable ascites present. There is a reducible right inguinal hernia present there is no tender areas masses. EXTREMITIES: Femorals are diminished. There is no femoral bruits. Leg pulses are diminished. There is mild pedal edema bilaterally. There is no DVT or cellulitis. There is no calf tenderness. There is no cyanosis or clubbing. REGISTERED NURSE NURSERY: The patient is conscious awake alert oriented x3 with no focal deficits. PSYCHIATRIC the patient judgment insight are intact her affect is normal. Patient's 24-hour intake is 1771, 24-hour output is 3750 mL. Labs- All tests 24 hr 01/27/20 01/27/20 01/27/20 06:10 06:10 06:10 WBC 11.6 H RBC 3.76 L Hgb 9.7 L Hct 29.3 L MCV 78 L MCH 25.8 L MCHC 33.2 RDW 18.2 H Plt Count 172 Lymph % (Auto) 10.5 L [place] % (Auto) 11.5 Eos % (Auto) 1.6 Baso % (Auto) 0.0 Absolute Neuts (auto) 8.9 H Absolute Lymphs (auto) 1.2 Absolute Monos (auto) 1.3 Absolute Eos (auto) 0.2 Absolute Basos (auto) 0.0 Seg Neutrophils % 76.4 Sodium 137.0 Potassium 3.9 Chloride 94 L Carbon Dioxide 40 H* Anion Gap 3 L BUN 44 H Creatinine 0.76 Est GFR ( Amer) > 60 Est GFR (MDRD) Non-Af > 60 Glucose 132 H Calcium 8.3 L NT-Pro-B Natriuret Pep [id number] H Chest X-Ray 01/24/20 03:27 IMPRESSION: Cardiomegaly. Low lung volumes with mild interstitial prominence likely reflecting interstitial edema. Tiny effusions and/or pleural thickening copyright 2010 [employer]- All Rights Reserved Chest X-Ray 01/24/20 06:43 IMPRESSION: No pneumothorax following right IJ central line placement. IMPRESSION/recommendation: 1. Hypotension: Most likely secondary to pump failure.. This has improved. Will decrease the patient's dobutamine to 2.5 mcg/kg/min. The patient's dopamine has been deccreased. The patient also is on midodrine will continue the same. 2. Acute on chronic systolic heart failure: Although the chest x-ray does not show CHF patient is JVD is elevated consistent with chronic heart failure with acute exacerbation. We will stop the patient's IV Lasix and change to IV Bumex. 3. COPD with exacerbation: Continue bronchodilators and consider steroids and antibiotics. 4. Coronary artery disease: No anginal symptoms. History of prior [place] 5. Dilated cardiomyopathy with severely reduced LV ejection fraction. Continue lisinopril and beta-sarina. Later would be recommended for referral for AICD placement. This will be done once the patient's cardiac and pulmonary status stabilizes. 6. Alcoholic cirrhosis by history: Patient counseled to avoid alcohol 7. History of hypertension: At present blood pressure low 8. History of tobacco abuse disorder: Patient counseled to refrain from smoking. 9. Right inguinal hernia: At present no evidence of obstruction or incarceration. 10. Chronic pain syndrome: Patient on gabapentin. 11. Hyperlipidemia: Continue statins. Medications reviewed. Medications adjusted medical regimen and management plan discussed with attending provider. Medical decision making is of high complexity in view of the need for inotropic support for the patient's blood pressure. 40 minutes spent with patient more than 50% time spent in direct patient care. Will follow
[2020-01-27] MEDS: SIMVASTATIN 40 MG TABLET PO SCH (22:06)
[2020-01-28] MEDS: BUMETANIDE INJ/PF 1 MG/4 ML SDV IV SCH ×3 (01:34→17:48)
[2020-01-28] MEDS: MORPHINE SULFATE 10 MG/ML INJ IV PRN ×6 (01:34→21:06)
[2020-01-28] MEDS: GABAPENTIN 300 MG CAPSULE PO SCH ×3 (06:41→21:03)
[2020-01-28] MEDS: DOPAMINE HCL 800 MG/D5W 250 ML IV PRN (06:42)
[2020-01-28] MEDS: IPRATROPIUM/ALBUTEROL 0.5-2.5 MG/3 ML AMPUL NEB PRN ×2 (08:33→17:17)
[2020-01-28] MEDS: LISINOPRIL 5 MG TABLET PO SCH ×2 (09:56→21:03)
[2020-01-28] MEDS: FOLIC ACID 1 MG TABLET PO SCH (09:56)
[2020-01-28] MEDS: ROFLUMILAST 500 MCG TABLET PO SCH (09:56)
[2020-01-28] MEDS: MIDODRINE HCL 5 MG TABLET PO SCH ×3 (09:56→17:49)
[2020-01-28] MEDS: PREDNISONE 20 MG TABLET PO SCH (09:56)
[2020-01-28] MEDS: SPIRONOLACTONE 25 MG TABLET PO SCH (09:56)
[2020-01-28] MEDS: METOPROLOL SUCCINATE 25 MG TAB.SR.24H PO SCH ×2 (09:56→21:03)
[2020-01-28] MEDS: GUAIFENESIN 600 MG TABLET.SA PO SCH ×2 (09:56→21:03)
[2020-01-28] MEDS: ENOXAPARIN SODIUM INJ 30 MG/0.3 ML DISP.SYRIN SUBCUT SCH (09:57)
[2020-01-28] MEDS: FLUTICASONE/VILANTEROL 200-25 MCG/DOSE IH SCH (10:01)
--- NOTE | 2020-01-28 14:23 | PDOC PROGRESS REPORT ---
Subjective Progress Note for:: 01/28/20 Subjective:: Patient feels that he is somewhat improved today. He continues to endorse that the swelling has definitely gone down. His breathing appears to be improved also Reason For Visit: CHF EXCAERBATION Physical Exam Vital Signs: Temp Pulse Resp BP Pulse Ox 97.5 F 67 18 103/50 L 100 01/28/20 11:55 01/28/20 13:00 01/28/20 11:55 01/28/20 13:00 01/28/20 11:55 Intake & Output 01/27/20 01/28/20 01/29/20 06:59 06:59 06:59 Intake Total 1771 1575 Output Total 3750 2950 Balance -1978 -1374 Weight 84.4 kg 84.2 kg General appearance: PRESENT: no acute distress, cooperative Head exam: PRESENT: atraumatic, normocephalic Eye exam: PRESENT: conjunctiva pink, EOMI, PERRLA. ABSENT: scleral icterus Ear exam: PRESENT: normal external ear exam Mouth exam: PRESENT: tongue midline Neck exam: ABSENT: carotid bruit, JVD, lymphadenopathy, thyromegaly Respiratory exam: PRESENT: crackles, unlabored. ABSENT: rales, rhonchi, wheezes Cardiovascular exam: PRESENT: RRR, +S1, +S2. ABSENT: diastolic murmur, rubs, systolic murmur Pulses: PRESENT: normal dorsalis pedis pul Vascular exam: PRESENT: normal capillary refill GI/Abdominal exam: PRESENT: normal bowel sounds, soft, other - Anasarca. ABSENT: distended, guarding, mass, organolmegaly, rebound, tenderness Rectal exam: PRESENT: deferred Gentrourinary exam: PRESENT: scrotal swelling Extremities exam: PRESENT: full ROM, other - 3 Plus edema. ABSENT: calf tenderness, clubbing, pedal edema Neurological exam: PRESENT: alert, awake, oriented to person, oriented to place, oriented to time, oriented to situation, CN II-XII grossly intact. ABSENT: motor sensory deficit Psychiatric exam: PRESENT: appropriate affect, normal mood. ABSENT: homicidal ideation, suicidal ideation Skin exam: PRESENT: dry, intact, warm. ABSENT: cyanosis, rash Results Laboratory Results: 01/27/20 06:10 01/27/20 06:10 01/24/20 01/27/20 06:58 06:10 Troponin I 0.031 NT-Pro-B Natriuret Pep 42980 H 90339 H Impressions: Chest X-Ray 01/24/20 06:43 IMPRESSION: No pneumothorax following right IJ central line placement. Assessment and Plan - Diagnosis (1) CHF (congestive heart failure) Qualifiers: Heart failure type: combined systolic and diastolic Heart failure chronicity: acute on chronic Qualified Code(s): I50.43 - Acute on chronic combined systolic (congestive) and diastolic (congestive) heart failure Is this a current diagnosis for this admission?: Yes (2) Shortness of breath Is this a current diagnosis for this admission?: Yes (3) Acute and chronic respiratory failure Qualifiers: Respiratory failure complication: hypoxia Qualified Code(s): J96.21 - Acute and chronic respiratory failure with hypoxia Is this a current diagnosis for this admission?: Yes - Plan Summary Summary: Continue with current management with adjustment in his Lasix dose1. Hypotension: Most likely secondary to pump failure.. This has improved. Will decrease the patient's dobutamine to 2.5 mcg/kg/min. The patient's dopamine has been deccreased. The patient also is on midodrine will continue the same. 2. Acute on chronic systolic heart failure: 3. COPD with exacerbation: 4. Coronary artery disease: 5. Dilated cardiomyopathy with severely reduced LV ejection fraction. Continue lisinopril and beta-sarina. Later would be recommended for referral for AICD placement. This will be done once the patient's cardiac and pulmonary status stabilizes. 6. Alcoholic cirrhosis by history: Patient counseled to avoid alcohol 7. History of hypertension: 8. History of tobacco abuse disorder: Patient counseled to refrain from smoking. 9. Right inguinal hernia: At present no evidence of obstruction or incarceration. 10. Chronic pain syndrome: Patient on gabapentin. 11. Hyperlipidemia: Continue statins.
--- NOTE | 2020-01-28 15:29 | Progress Note ---
Provider Note Provider Note: CARDIOLOGY PROGRESS NOTE by Dr. Lorenza Goddard on 01/28/2020. OBJECTIVE: The patient states he feels much better. He denies shortness of breath at rest but has shortness of breath with minimal activity. There is no PND orthopnea. He denies any further cough. There is no chest pain or discomfort. There is no atrial or ventricular arrhythmias. There is no TIA CVA symptoms. His leg edema is now trace leg edema. He is got good urine output. His blood pressure has improved. PHYSICAL EXAMINATION: The patient is a frail build and appears to be chronically ill and malnourished. Selected Entries 01/28/20 01/28/20 11:55 12:00 Temperature 97.5 F Temperature Axillary Source Pulse Rate 73 Respiratory 18 Rate Blood Pressure 108/71 BP Position Sitting O2 Sat by Pulse 100 Oximetry Oxygen Flow 3.00 Rate Oxygen Delivery Nasal Cannula Method HEAD: Is atraumatic normocephalic. EYES: Pupils are equal round regular reactive to light accommodation. Extraocular movements are normal. There is no conjunctival pallor. There is no scleral icterus. EARS: Tympanic membranes are intact. External auditory canals are clear. NOSE: There is no deviated nasal septum. There is no inflammation nasal mucous membrane. MOUTH: Mucous membranes of the mouth are moist. Tongue is moist there is no ulcers. There is no bleeding from the gums THROAT: There is no redness of the oropharynx. There is no exudates. SKIN: There is no skin rashes. There is no skin lesions. There is no petechia or ecchymosis. NECK: Is supple there is mild JVD present. Carotids are equal there is no bruits. There is no lymphadenopathy. There is no goiter. There is no accessory muscle respiration use. Trachea central. LUNGS: There is diminished air entry prolonged expiration. There are a few scattered rhonchi and today there is no wheezing. There is no rales of CHF. On percussion there is hyperresonance. HEART: S1-S2 is heard. There is no S3 gallop. There is no S4 gallop. Systolic murmur left sternal border and the apex there is no rub. ABDOMEN: Soft. There is no definite hepatosplenomegaly. There is questionable ascites present. There is a reducible right inguinal hernia present there is no tender areas masses. EXTREMITIES: Femorals are dimin ished. There is no femoral bruits. Leg pulses are diminished. There is trace pedal edema bilaterally. There is no DVT or cellulitis. There is no calf tenderness. There is no cyanosis or clubbing. GROUP SUPERVISOR YARD: The patient is conscious awake alert oriented x3 with no focal deficits. PSYCHIATRIC the patient judgment insight are intact her affect is normal. Patient's 24-hour intake is 1575, 24-hour output is 2950 mL. IMPRESSION/recommendation: 1. Hypotension: Most likely secondary to pump failure.. This has improved. We will stop the patient's dopamine. Would also decrease the patient's Bumex to 1 mg IV push every 12 hours. 2. Acute on chronic systolic heart failure: Although the chest x-ray does not show CHF patient is JVD is elevated consistent with chronic heart failure with acute exacerbation. We will stop the patient's IV Lasix and change to IV Bumex. 3. COPD with exacerbation: Continue bronchodilators and consider steroids and antibiotics. 4. Coronary artery disease: No anginal symptoms. History of prior [place] 5. Dilated cardiomyopathy with severely reduced LV ejection fraction. Continue lisinopril and beta-sarina. Later would be recommended for referral for AICD placement. This will be done once the patient's cardiac and pulmonary status stabilizes. 6. Alcoholic cirrhosis by history: Patient counseled to avoid alcohol 7. History of hypertension: At present blood pressure low 8. History of tobacco abuse disorder: Patient counseled to refrain from smoking. 9. Right inguinal hernia: At present no evidence of obstruction or incarceration. 10. Chronic pain syndrome: Patient on gabapentin. 11. Hyperlipidemia: Continue statins. Medications reviewed. Medications adjusted medical regimen and management plan discussed with attending provider. Medical decision making is of moderate complexity. 40 minutes spent with patient more than 50% time spent in direct patient care. Will follow
[2020-01-28] MEDS: SIMVASTATIN 40 MG TABLET PO SCH (21:04)
[2020-01-29] MEDS: MORPHINE SULFATE 10 MG/ML INJ IV PRN ×3 (01:16→20:40)
[2020-01-29] MEDS: GABAPENTIN 300 MG CAPSULE PO SCH ×3 (05:45→22:05)
[2020-01-29] MEDS: BUMETANIDE INJ/PF 1 MG/4 ML SDV IV SCH ×2 (05:45→17:20)
[2020-01-29 06:22] LABS: ABSOLUTE EOSINOPHILS # (AUTO) 0.2 10^3/uL (0.0-0.6); ABSOLUTE LYMPHOCYTES (AUTO) 0.8 10^3/uL (0.5-4.7); ABSOLUTE MONOCYTES (AUTO) 1.1 10^3/uL (0.1-1.4); ABSOLUTE NEUT (AUTO) 8.3 10^3/uL (1.7-8.2); BASOPHILS % (AUTO) 0.3 % (0-2); EOSINOPHILS % (AUTO) 1.6 % (0-6); HEMATOCRIT 28.8 % (37.9-51.0); HEMOGLOBIN 9.5 g/dL (13.5-17.0); LYMPHOCYTES % (AUTO) 7.9 % (13-45); MEAN CORPUSCULAR HEMOGLOBIN 25.7 pg (27.0-33.4); MEAN CORPUSCULAR HGB CONC 33.2 g/dL (32.0-36.0); MEAN CORPUSCULAR VOLUME 77 fl (80-97); MONOCYTES % (AUTO) 10.7 % (3-13); PLATELET COUNT 162 10^3/uL (150-450); RED BLOOD COUNT 3.72 10^6/uL (4.35-5.55); RED CELL DISTRIBUTION WIDTH 18.2 % (11.5-14.0); SEGMENTED NEUTROPHILS % (AUTO) 79.5 % (42-78); TOTAL CELLS COUNTED % (AUTO) 100 %; WHITE BLOOD COUNT 10.4 10^3/uL (4.0-10.5)
[2020-01-29 06:44] LABS: BLOOD UREA NITROGEN 41 mg/dL (7-20); CALCIUM 8.2 mg/dL (8.4-10.2); CARBON DIOXIDE 37 mmol/L (22-30); GLUCOSE 107 mg/dL (75-110); POTASSIUM 3.7 mmol/L (3.6-5.0)
[2020-01-29 06:49] LABS: ANION GAP 5 (5-19); CHLORIDE 94 mmol/L (98-107)
[2020-01-29] MEDS: IPRATROPIUM/ALBUTEROL 0.5-2.5 MG/3 ML AMPUL NEB PRN ×2 (08:43→17:15)
[2020-01-29] MEDS: FLUTICASONE/VILANTEROL 200-25 MCG/DOSE IH SCH (09:12)
[2020-01-29] MEDS ORDERED: MAGNESIUM CITRATE 296 ML BOTTLE PO ONE (09:30)
[2020-01-29] MEDS: METOPROLOL SUCCINATE 25 MG TAB.SR.24H PO SCH ×2 (09:32→22:05)
[2020-01-29] MEDS: SPIRONOLACTONE 25 MG TABLET PO SCH (09:32)
[2020-01-29] MEDS: MIDODRINE HCL 5 MG TABLET PO SCH ×3 (09:32→17:20)
[2020-01-29] MEDS: GUAIFENESIN 600 MG TABLET.SA PO SCH ×2 (09:32→22:05)
[2020-01-29] MEDS: ROFLUMILAST 500 MCG TABLET PO SCH (09:32)
[2020-01-29] MEDS: DOCUSATE SODIUM 100 MG CAPSULE PO SCH (09:33)
[2020-01-29] MEDS: LISINOPRIL 5 MG TABLET PO SCH ×2 (09:33→22:05)
[2020-01-29] MEDS: ENOXAPARIN SODIUM INJ 30 MG/0.3 ML DISP.SYRIN SUBCUT SCH (09:33)
[2020-01-29] MEDS: PREDNISONE 20 MG TABLET PO SCH (09:33)
[2020-01-29] MEDS: FOLIC ACID 1 MG TABLET PO SCH (09:33)
--- NOTE | 2020-01-29 12:41 | PDOC PROGRESS REPORT ---
Subjective Progress Note for:: 01/29/20 Subjective:: Patient feels that he is somewhat improved today. Is complaining of pain in his right groin from his hernia. He also has scrotal swelling Reason For Visit: CHF EXCAERBATION Physical Exam Vital Signs: Temp Pulse Resp BP Pulse Ox 97.7 F 76 18 104/58 L 96 01/29/20 08:14 01/29/20 08:43 01/29/20 08:43 01/29/20 08:14 01/29/20 08:43 Intake & Output 01/28/20 01/29/20 01/30/20 06:59 06:59 06:59 Intake Total 1575 2258 Output Total 2950 2375 Balance -1375 -117 Weight 84.2 kg 83.3 kg General appearance: PRESENT: no acute distress, other - Chronically ill looking Head exam: PRESENT: atraumatic, normocephalic Eye exam: PRESENT: conjunctiva pink, EOMI. ABSENT: scleral icterus Ear exam: PRESENT: normal external ear exam Mouth exam: PRESENT: moist, tongue midline Neck exam: ABSENT: carotid bruit, JVD, lymphadenopathy, thyromegaly Respiratory exam: PRESENT: crackles, unlabored. ABSENT: rales, rhonchi, wheezes Cardiovascular exam: PRESENT: RRR, +S1, +S2. ABSENT: diastolic murmur, rubs, systolic murmur Pulses: PRESENT: normal dorsalis pedis pul Vascular exam: PRESENT: normal capillary refill GI/Abdominal exam: PRESENT: normal bowel sounds, soft. ABSENT: distended, guarding, mass, organolmegaly, rebound, tenderness Rectal exam: PRESENT: deferred Gentrourinary exam: PRESENT: scrotal swelling, other - Right inguinal hernia with minimal tenderness Extremities exam: PRESENT: full ROM. ABSENT: calf tenderness, clubbing, pedal edema Neurological exam: PRESENT: alert, awake, oriented to person, oriented to place, oriented to time, oriented to situation, CN II-XII grossly intact. ABSENT: motor sensory deficit Psychiatric exam: PRESENT: appropriate affect, normal mood. ABSENT: homicidal ideation, suicidal ideation Skin exam: PRESENT: dry, intact, warm. ABSENT: cyanosis, rash Results Laboratory Results: 01/29/20 06:00 01/29/20 06:00 01/29/20 01/29/20 06:00 06:00 WBC 10.4 RBC 3.72 L Hgb 9.5 L Hct 28.8 L MCV 77 L MCH 25.7 L MCHC 33.2 RDW 18.2 H Plt Count 162 Seg Neutrophils % 79.5 H Sodium 136.3 L Potassium 3.7 Chloride 94 L Carbon Dioxide 37 H Anion Gap 5 BUN 41 H Creatinine 0.71 Est GFR ( Amer) > 60 Glucose 107 Calcium 8.2 L 01/24/20 01/27/20 06:58 06:10 Troponin I 0.031 NT-Pro-B Natriuret Pep 63664 H 92173 H Impressions: Chest X-Ray 01/24/20 06:43 IMPRESSION: No pneumothorax following right IJ central line placement. Assessment and Plan - Diagnosis (1) CHF (congestive heart failure) Qualifiers: Heart failure type: combined systolic and diastolic Heart failure chron icity: acute on chronic Qualified Code(s): I50.43 - Acute on chronic combined systolic (congestive) and diastolic (congestive) heart failure Is this a current diagnosis for this admission?: Yes (2) Shortness of breath Is this a current diagnosis for this admission?: Yes (3) Acute and chronic respiratory failure Qualifiers: Respiratory failure complication: hypoxia Qualified Code(s): J96.21 - Acute and chronic respiratory failure with hypoxia Is this a current diagnosis for this admission?: Yes - Plan Summary Summary: 2. Acute on chronic systolic heart failure: 3. COPD with exacerbation: 4. Coronary artery disease: 5. Dilated cardiomyopathy with severely reduced LV ejection fraction. Continue lisinopril and beta-sarina. Later would be recommended for referral for AICD placement. This will be done once the patient's cardiac and pulmonary status stabilizes. 6. Alcoholic cirrhosis by history: Patient counseled to avoid alcohol 7. History of hypertension: 8. History of tobacco abuse disorder: Patient counseled to refrain from smoking. 9. Right inguinal hernia: At present no evidence of obstruction or incarceration. 10. Chronic pain syndrome: Patient on gabapentin. 11. Hyperlipidemia: Continue statins. Patient is now off his dopamine and Bumex has been decreased. I will order a scrotal sac for his swelling. He is anasarca is much improved especially in the extremities. Patient's long-term prognosis is pretty poor
--- NOTE | 2020-01-29 14:04 | Progress Note ---
Provider Note Provider Note: CARDIOLOGY PROGRESS NOTE by Dr. Lorenza Sandoval on 01/29/2020. Subjective: The patient complains of right inguinal hernia pain. There is no evidence of strangulation or incarceration or reducibility. The patient does have a history of chronic pain syndrome. The patient's blood pressure is stable off dopamine. He denies any chest pain discomfort. There is no shortness of breath. There is no PND orthopnea. He has only trace leg edema at present. There is no TIA CVA symptoms. PHYSICAL EXAMINATION: The patient appears to be of frail build and chronically ill and malnourished. In no acute distress. Selected Entries 01/29/20 12:00 Temperature 97.5 F Temperature Oral Source Pulse Rate 105 H Respiratory 14 Rate Blood Pressure 116/59 L [Upper Arm] Blood Pressure 78 Mean [Upper Arm ] Blood Pressure Sitting Position [Upper Arm] O2 Sat by Pulse 90 L Oximetry Oxygen Delivery Nasal Cannula Method ( includes room air) Oxygen Flow 3 Rate HEAD: Is atraumatic normocephalic. EYES: Pupils are equal round regular reactive to light accommodation. Extraocular movements are normal. There is no conjunctival pallor. There is no scleral icterus. EARS: Tympanic membranes are intact. External auditory canals are clear. NOSE: There is no deviated nasal septum. There is no inflammation nasal mucous membrane. MOUTH: Mucous membranes of the mouth are moist. Tongue is moist there is no ulcers. There is no bleeding from the gums THROAT: There is no redness of the oropharynx. There is no exudates. SKIN: There is no skin rashes. There is no skin lesions. There is no petechia or ecchymosis. NECK: Is supple there is mild JVD present. Carotids are equal there is no bruits. There is no lymphadenopathy. There is no goiter. There is no accessory muscle respiration use. Trachea central. LUNGS: There is diminished air entry prolonged expiration. Lungs are clear bilaterally. There is no rhonchi and today there is no wheezing. There is no rales of CHF. On percussion there is hyperresonance. HEART: S1-S2 is heard. There is no S3 gallop. There is no S4 gallop. Systolic murmur left sternal border and the apex there is no rub. ABDOMEN: Soft. There is no definite hepatosplenomegaly. There is questionable ascites present. There is a reducible right inguinal hernia present there is no tender areas masses. EXTREMITIES: Femorals are diminished. There is no femoral bruits. Leg pulses are diminished. There is trace pedal edema bilaterally. There is no DVT or cellulitis. There is no calf tenderness. There is no cyanosis or clubbing. 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 PSYCHIATRIC the patient judgment insight are intact her affect is normal. Patient's 24-hour intake is 2258, 24-hour output is 2375 mL. Labs- All tests 24 hr 01/29/20 01/29/20 06:00 06:00 WBC 10.4 RBC 3.72 L Hgb 9.5 L Hct 28.8 L MCV 77 L MCH 25.7 L MCHC 33.2 RDW 18.2 H Plt Count 162 Lymph % (Auto) 7.9 L [place] % (Auto) 10.7 Eos % (Auto) 1.6 Baso % (Auto) 0.3 Absolute Neuts (auto) 8.3 H Absolute Lymphs (auto) 0.8 Absolute Monos (auto) 1.1 Absolute Eos (auto) 0.2 Absolute Basos (auto) 0.0 Seg Neutrophils % 79.5 H Sodium 136.3 L Potassium 3.7 Chloride 94 L Carbon Dioxide 37 H Anion Gap 5 BUN 41 H Creatinine 0.71 Est GFR ( Amer) > 60 Est GFR (MDRD) Non-Af > 60 Glucose 107 Calcium 8.2 L Chest X-Ray 01/24/20 03:27 IMPRESSION: Cardiomegaly. Low lung volumes with mild interstitial prominence likely reflecting interstitial edema. Tiny effusions and/or pleural thickening copyright 2011 [id number]- All Rights Reserved Chest X-Ray 01/24/20 06:43 IMPRESSION: No pneumothorax following right IJ central line placement. IMPRESSION/RECOMMENDATION: 1. Hypotension: Most likely secondary to pump failure.. This is resolved. The patient is off dopamine and his blood pressure is stable. 2. Acute on chronic systolic heart failure: Although the chest x-ray does not show CHF patient is JVD is elevated consistent with chronic heart failure with acute exacerbation. We will stop the patient's IV Lasix and change to IV Bumex. 3. COPD with exacerbation: Continue bronchodilators and consider steroids and antibiotics. 4. Coronary artery disease: No anginal symptoms. History of prior [place] 5. Dilated cardiomyopathy with severely reduced LV ejection fraction. Continue lisinopril and beta-sarina. Once the cardiovascular status is stable we will schedule the patient for IV Lexiscan Cardiolite stress test. Later would be recommended for referral for AICD placement. This will be done once the patient's cardiac and pulmonary status stabilizes. 6. Alcoholic cirrhosis by history: Patient counseled to avoid alcohol 7. History of hypertension: At present blood pressure low 8. History of tobacco abuse disorder: Patient counseled to refrain from smoking. 9. Right inguinal hernia: At present no evidence of obstruction or incarceration. 10. Chronic pain syndrome: Patient on gabapentin. 11. Hyperlipidemia: Continue statins. Medications reviewed. Medications adjusted medical regimen and management plan discussed with attending provider. Medical decision making is of moderate complexity. 40 minutes spent with patient more than 50% time spent in direct patient care. Will follow
[2020-01-29] MEDS: DIGOXIN INJ 0.5 MG/2 ML AMPULE IV SCH (15:55)
[2020-01-29] MEDS: SIMVASTATIN 40 MG TABLET PO SCH (22:05)
[2020-01-30] MEDS: MORPHINE SULFATE 10 MG/ML INJ IV PRN ×7 (00:15→23:56)
[2020-01-30] MEDS: IPRATROPIUM/ALBUTEROL 0.5-2.5 MG/3 ML AMPUL NEB PRN ×3 (05:01→20:43)
[2020-01-30] MEDS: BUMETANIDE INJ/PF 1 MG/4 ML SDV IV SCH ×2 (06:16→17:10)
[2020-01-30] MEDS: GABAPENTIN 300 MG CAPSULE PO SCH ×3 (06:16→23:32)
[2020-01-30] MEDS: BISACODYL 5 MG TABEC PO PRN (07:46)
[2020-01-30] MEDS: METOPROLOL SUCCINATE 25 MG TAB.SR.24H PO SCH ×2 (09:19→23:32)
[2020-01-30] MEDS: DOCUSATE SODIUM 100 MG CAPSULE PO SCH (09:19)
[2020-01-30] MEDS: GUAIFENESIN 600 MG TABLET.SA PO SCH ×2 (09:19→23:32)
[2020-01-30] MEDS: ROFLUMILAST 500 MCG TABLET PO SCH (09:19)
[2020-01-30] MEDS: SPIRONOLACTONE 25 MG TABLET PO SCH (09:19)
[2020-01-30] MEDS: FOLIC ACID 1 MG TABLET PO SCH (09:20)
[2020-01-30] MEDS: ENOXAPARIN SODIUM INJ 40 MG/0.4 ML DISP.SYRIN SUBCUT SCH (09:20)
[2020-01-30] MEDS: DIGOXIN INJ 0.5 MG/2 ML AMPULE IV SCH (09:20)
[2020-01-30] MEDS: MIDODRINE HCL 5 MG TABLET PO SCH ×3 (09:20→17:10)
[2020-01-30] MEDS: PREDNISONE 20 MG TABLET PO SCH (09:21)
[2020-01-30] MEDS: FLUTICASONE/VILANTEROL 200-25 MCG/DOSE IH SCH (09:22)
[2020-01-30] MEDS: LISINOPRIL 5 MG TABLET PO SCH ×2 (09:22→23:32)
--- NOTE | 2020-01-30 09:53 | PDOC PROGRESS REPORT ---
Subjective Progress Note for:: 01/30/20 Subjective:: Patient complaining of abdominal distention. He is also still complaining of the scrotal pain. He does have a known inguinal hernia. He also has a history of cirrhosis of the liver. He said is never had it tapped before. He thinks his breathing is improved Reason For Visit: CHF EXCAERBATION Physical Exam Vital Signs: Temp Pulse Resp BP Pulse Ox 97.8 F 85 18 97/55 L 96 01/30/20 08:20 01/30/20 08:34 01/30/20 08:34 01/30/20 08:20 01/30/20 08:34 Intake & Output 01/29/20 01/30/20 01/31/20 06:59 06:59 06:59 Intake Total 2258 1125 Output Total 2375 1600 Balance -117 -475 Weight 83.3 kg 84.5 kg General appearance: PRESENT: no acute distress, other - Chronically ill looking but not toxic Head exam: PRESENT: atraumatic, normocephalic Eye exam: PRESENT: conjunctiva pink, PERRLA. ABSENT: scleral icterus Mouth exam: PRESENT: moist, tongue midline Neck exam: ABSENT: carotid bruit, JVD, lymphadenopathy, thyromegaly Respiratory exam: PRESENT: crackles, rhonchi. ABSENT: rales, wheezes Cardiovascular exam: PRESENT: RRR, +S1, +S2. ABSENT: diastolic murmur, rubs, systolic murmur Pulses: PRESENT: normal dorsalis pedis pul Vascular exam: PRESENT: normal capillary refill GI/Abdominal exam: PRESENT: ascites - Tense ascites, firm, guarding, normal bowel sounds. ABSENT: distended, mass, organolmegaly, rebound, tenderness Rectal exam: PRESENT: deferred Gentrourinary exam: PRESENT: scrotal swelling Extremities exam: PRESENT: full ROM, +2 edema. ABSENT: calf tenderness, clubbing, pedal edema Neurological exam: PRESENT: alert, awake, oriented to person, oriented to place, oriented to time, oriented to situation, CN II-XII grossly intact. ABSENT: motor sensory deficit Psychiatric exam: PRESENT: appropriate affect, normal mood. ABSENT: homicidal ideation, suicidal ideation Skin exam: PRESENT: dry, intact, warm. ABSENT: cyanosis, rash Results Laboratory Results: 01/29/20 06:00 01/29/20 06:00 01/24/20 01/27/20 06:58 06:10 Troponin I 0.031 NT-Pro-B Natriuret Pep 27819 H 82527 H Impressions: Chest X-Ray 01/24/20 06:43 IMPRESSION: No pneumothorax following right IJ central line placement. Assessment and Plan - Diagnosis (1) CHF (congestive heart failure) Qualifiers: Heart failure type: combined systolic and diastolic Heart failure chronicity: acute on chronic Qualified Code(s): I50.43 - Acute on chronic combined systolic (congestive) and diastolic (congestive) heart failure Is this a current diagnosis for this admission?: Yes Plan: Patient is back on dobutamine drip. He appears to be making pretty significant urine output. Is about 3.5 L negative at this point. We will continue with fluid restriction and positive inotrope. 01/25 patient continues to diurese. He is fluid balance cumulatively is negative. His edema even visually seems to be improving. We will continue with dobutamine drip. I have also decrease his Lasix as his blood pressure seems to be somewhat lower than his baseline. He is diuresing well. 01/26 continue with current management. Patient is actually on dopamine and not dobutamine. Afraid his compliance is pretty poor and he will require repeated hospitalizations. I have liberalized his fluid intake a little bit as patient was really asking for some fluids. We will continue to reinforce CHF education and have encouraged him to be compliant as much as he can as his survival and qu ality of life partly depend on this 01/29 breathing appears to be stable although on exam he still has significant crackles. Obtain a follow-up chest x-ray (2) Shortness of breath Is this a current diagnosis for this admission?: Yes Plan: Secondary to underlying CHF and COPD and cirrhosis. Patient is on 3 L of oxygen regularly and he currently is on the same (3) Acute and chronic respiratory failure Qualifiers: Respiratory failure complication: hypoxia Qualified Code(s): J96.21 - Acute and chronic respiratory failure with hypoxia Is this a current diagnosis for this admission?: Yes (4) Ascites Is this a current diagnosis for this admission?: Yes Plan: Am concerned about his ascites. He has underlying cirrhosis of the liver. The swelling does seem to be a little more than he has been despite the fact that he had been on diuretics and inotropes. I will go ahead and order an abdominal ultrasound with paracentesis and appropriate fluid analysis. Patient tells me that he is never had a paracentesis done before (5) Cirrhosis of liver Qualifiers: Hepatic cirrhosis type: alcoholic cirrhosis Is this a current diagnosis for this admission?: Yes Plan: History of cirrhosis of the liver complicating his fluid retention. Will obtain paracentesis. He will likely need Albumin especially if this is a large-volume paracentesis. We will also consider consideration for possible SBP coverage although patient has no symptoms of acute infection at this time. (6) Hernia, inguinal, right Is this a current diagnosis for this admission?: Yes Plan: This is apparently a known an old issue. He definitely is not a surgical candidate at this time. Will obtain a scrotal sonogram and further consultations will depend on ultimate hospital course - Plan Summary Summary: 2. Acute on chronic systolic heart failure: 3. COPD with exacerbation: 4. Coronary artery disease: 5. Dilated cardiomyopathy with severely reduced LV ejection fraction. Continue lisinopril and beta-sarina. Later would be recommended for referral for AICD placement. This will be done once the patient's cardiac and pulmonary status stabilizes. 6. Alcoholic cirrhosis by history: Patient counseled to avoid alcohol 7. History of hypertension: 8. History of tobacco abuse disorder: Patient counseled to refrain from smoking. 9. Right inguinal hernia: At present no evidence of obstruction or incarceration. 10. Chronic pain syndrome: Patient on gabapentin. 11. Hyperlipidemia: Continue statins. Patient is now off his dopamine and Bumex has been decreased. I will order a scrotal sac for his swelling. He is anasarca is much improved especially in the extremities. Patient's long-term prognosis is pretty poor 01/29 patient's condition remains pretty poor. Follow-up on test results as indicated above - Time Time Spent with patient: 35 or more minutes Medications reviewed and adjusted accordingly: Yes
--- NOTE | 2020-01-30 10:40 | RADIOLOGY REPORT (SQ) ---
EXAM DESCRIPTION: CHEST 2 VIEWS IMAGES COMPLETED DATE/TIME: 01/30/2020 10:21 am REASON FOR STUDY: CHF COMPARISON: 01/24/2020 NUMBER OF VIEWS: Two view TECHNIQUE: Frontal and lateral radiographic images of the chest acquired. LIMITATIONS: None. FINDINGS: LUNGS AND PLEURA: Stable appearance. MEDIASTINUM AND HILAR STRUCTURES: Stable heart size and mediastinal structures. HEART AND VASCULAR STRUCTURES: Stable appearance. BONES: No acute findings. HARDWARE: Central line is unchanged. OTHER: No other significant finding. IMPRESSION: STABLE APPEARANCE OF THE CHEST. TECHNICAL DOCUMENTATION: JOB ID: [id number] 2010 [employer] All Rights Reserved Reading location - IP/workstation name: [email or web address]
[2020-01-30 10:55] LABS: ABSOLUTE BASOPHILS # (AUTO) 0.1 10^3/uL (0.0-0.2); ABSOLUTE EOSINOPHILS # (AUTO) 0.2 10^3/uL (0.0-0.6); ABSOLUTE LYMPHOCYTES (AUTO) 0.8 10^3/uL (0.5-4.7); ABSOLUTE MONOCYTES (AUTO) 1.3 10^3/uL (0.1-1.4); ABSOLUTE NEUT (AUTO) 12.3 10^3/uL (1.7-8.2); BASOPHILS % (AUTO) 0.3 % (0-2); EOSINOPHILS % (AUTO) 1.5 % (0-6); HEMATOCRIT 27.1 % (37.9-51.0); HEMOGLOBIN 8.8 g/dL (13.5-17.0); LYMPHOCYTES % (AUTO) 5.6 % (13-45); MEAN CORPUSCULAR HEMOGLOBIN 25.1 pg (27.0-33.4); MEAN CORPUSCULAR HGB CONC 32.4 g/dL (32.0-36.0); MEAN CORPUSCULAR VOLUME 77 fl (80-97); PLATELET COUNT 164 10^3/uL (150-450); RED CELL DISTRIBUTION WIDTH 18.6 % (11.5-14.0); SEGMENTED NEUTROPHILS % (AUTO) 83.6 % (42-78); TOTAL CELLS COUNTED % (AUTO) 100 %; WHITE BLOOD COUNT 14.7 10^3/uL (4.0-10.5)
[2020-01-30 11:13] LABS: INTERNATIONAL RATION (INR) 1.17; PROTHROMBIN TIME 14.9 SEC (11.4-15.4)
[2020-01-30 11:14] LABS: BLOOD UREA NITROGEN 43 mg/dL (7-20); CALCIUM 8.1 mg/dL (8.4-10.2); CHLORIDE 93 mmol/L (98-107); GLUCOSE 130 mg/dL (75-110)
[2020-01-30 11:20] LABS: CARBON DIOXIDE 39 mmol/L (22-30)
[2020-01-30 11:28] LABS: ANION GAP 3 (5-19)
[2020-01-30 12:22] LABS: ALBUMIN 2.7 g/dL (3.5-5.0); ALKALINE PHOSPHATASE 147 U/L (38-126); ASPARTATE AMINO TRANSFERASE 52 U/L (17-59); BILIRUBIN,TOTAL 0.3 mg/dL (0.2-1.3); TOTAL PROTEIN 5.5 g/dL (6.3-8.2)
[2020-01-30] MEDS: CEFTRIAXONE 2 GM/D5W RTU 2 GM/50 ML RTUPB IV SCH (14:03)
--- NOTE | 2020-01-30 18:15 | Progress Note ---
Provider Note Provider Note: CARDIOLOGY PROGRESS note by Dr. Lorenza Sandoval on 01/30/2020. SUBJECTIVE: The patient denies any chest pain or discomfort. There is no shortness of breath at rest. There is no PND orthopnea. He only has trace leg edema. There is no arrhythmia seen on the monitor. The patient went down for paracentesis but since the patient did receive Lovenox today he will have it done tomorrow. There is no TIA CVA symptoms. There is no syncope or near syncope. PHYSICAL EXAMINATION: The patient is a frail build and appears to be chronically ill and malnourished. Selected Entries 01/30/20 16:38 Temperature 98.3 F Temperature Oral Source Pulse Rate 72 Respiratory 15 Rate Blood Pressure 113/63 Blood Pressure 79 Mean BP Location Right Arm BP Position Supine O2 Sat by Pulse 100 Oximetry Oxygen Flow 2.50 Rate Oxygen Delivery Nasal Cannula Method HEAD: Is atraumatic normocephalic. EYES: Pupils are equal round regular reactive to light accommodation. Extraocular movements are normal. There is no conjunctival pallor. There is no scleral icterus. EARS: Tympanic membranes are intact. External auditory canals are clear. NOSE: There is no deviated nasal septum. There is no inflammation nasal mucous membrane. MOUTH: Mucous membranes of the mouth are moist. Tongue is moist there is no ulcers. There is no bleeding from the gums THROAT: There is no redness of the oropharynx. There is no exudates. SKIN: There is no skin rashes. There is no skin lesions. There is no petechia or ecchymosis. NECK: Is supple there is mild JVD present. Carotids are equal there is no bruits. There is no lymphadenopathy. There is no goiter. There is no accessory muscle respiration use. Trachea central. LUNGS: There is diminished air entry prolonged expiration. Lungs are clear bilaterally. There is no rhonchi and today there is no wheezing. There is no rales of CHF. On percussion there is hyperresonance. HEART: S1-S2 is heard. There is no S3 gallop. There is no S4 gallop. Systolic murmur left sternal border and the apex there is no rub. ABDOMEN: Soft.Distended. There is no definite hepatosplenomegaly. There is questionable ascites present. There is a reducible right inguinal hernia present there is no tender areas masses. EXTREMITIES: Femorals are diminished. There is no femoral bruits. Leg pulses are diminished. There is trace pedal edema bilaterally. There is no DVT or cellulitis. There is no calf tenderness. There is no cyanosis or clubbing. 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 PSYCHIATRIC the patient judgment insight are intact her affect is normal. Patient's 24-hour intake is 1125, 24-hour output is 1600 mL. Labs- Entire Visit 01/24/20 01/24/20 01/24/20 06:50 06:50 06:50 WBC 9.3 RBC 3.69 L Hgb 9.5 L Hct 28.9 L MCV 78 L MCH 25.8 L MCHC 33.0 RDW 17.9 H Plt Count 162 Lymph % (Auto) Not Reportable Ponce % (Auto) Not Reportable Eos % (Auto) Not Reportable Baso % (Auto) Not Reportable Absolute Neuts (auto) Not Reportable Absolute Lymphs (auto) Not Reportable Absolute Monos (auto) Not Reportable Absolute Eos (auto) Not Reportable Absolute Basos (auto) Not Reportable Total Counted 100 Seg Neutrophils % Not Reportable Seg Neuts % (Manual) 99 H Lymphocytes % (Manual) 1 L Monocytes % (Manual) 0 L Eosinophils % (Manual) 0 Basophils % (Manual) 0 Abs Neuts (Manual) 9.2 H Abs Lymphs (Manual) 0.1 L Abs Monocytes (Manual) 0.0 L Absolute Eos (Manual) 0.0 Abs Basophils (Manual) 0.0 Toxic Granulation SLIGHT Platelet Comment ADEQUATE Hypochromasia SLIGHT Poikilocytosis SLIGHT Anisocytosis 1+ Microcytosis SLIGHT Ovalocytes 1+ PT 15.2 INR 1.19 APTT 31.8 Sodium 133.2 L Potassium 5.3 H Chloride 97 L Carbon Dioxide 33 H Anion Gap 3 L BUN 58 H Creatinine 1.04 Est GFR ( Amer) > 60 Est GFR (MDRD) Non-Af > 60 Glucose 119 H Lactic Acid Calcium 8.5 Total Bilirubin 0.3 Direct Bilirubin 0.0 Neonat Total Bilirubin Not Reportable Neonat Direct Bilirubin Not Reportable Neonat Indirect Bili Not Reportable AST 58 ALT 42 Alkaline Phosphatase 140 H Troponin I NT-Pro-B Natriuret Pep Total Protein 6.0 L Albumin 2.8 L Urine Color Urine Appearance Urine pH Ur Specific [place] Urine Protein Urine Glucose (UA) Urine Ketones Urine Blood Urine Nitrite Urine Bilirubin Urine Urobilinogen Ur Leukocyte Esterase Urine RBC Urine WBC Ur Squamous Epith Cells Urine Ascorbic Acid COVID-19 Source COVID-19 ([facility]) SARS-CoV-2 (PCR) 01/24/20 01/24/20 01/24/20 06:58 07:40 08:00 WBC RBC Hgb Hct MCV MCH MCHC RDW Plt Count Lymph % (Auto) [place] % (Auto) Eos % (Auto) Baso % (Auto) Absolute Neuts (auto) Absolute Lymphs (auto) Absolute Monos (auto) Absolute Eos (auto) Absolute Basos (auto) Total Counted Seg Neutrophils % Seg Neuts % (Manual) Lymphocytes % (Manual) Monocytes % (Manual) Eosinophils % (Manual) Basophils % (Manual) Abs Neuts (Manual) Abs Lymphs (Manual) Abs Monocytes (Manual) Absolute Eos (Manual) Abs Basophils (Manual) Toxic Granulation Platelet Comment Hypochromasia Poikilocytosis Anisocytosis Microcytosis Ovalocytes PT INR APTT Sodium Potassium Chloride Carbon Dioxide Anion Gap BUN Creatinine Est GFR ( Amer) Est GFR (MDRD) Non-Af Glucose Lactic Acid 0.7 Calcium Total Bilirubin Direct Bilirubin Neonat Total Bilirubin Neonat Direct Bilirubin Neonat Indirect Bili AST ALT Alkaline Phosphatase Troponin I 0.031 NT-Pro-B Natriuret Pep 47642 H Total Protein Albumin Urine Color YELLOW Urine Appearance CLEAR Urine pH 6.0 Ur Specific [place] 1.014 Urine Protein NEGATIVE Urine Glucose (UA) NEGATIVE Urine Ketones NEGATIVE Urine Blood NEGATIVE Urine Nitrite NEGATIVE Urine Bilirubin NEGATIVE Urine Urobilinogen NEGATIVE Ur Leukocyte Esterase NEGATIVE Urine RBC NONE SEEN Urine WBC NONE SEEN Ur Squamous Epith Cells FEW Urine Ascorbic Acid NEGATIVE COVID-19 Source COVID-19 ([facility]) SARS-CoV-2 (PCR) 01/24/20 01/24/20 01/25/20 08:14 08:14 04:47 WBC RBC Hgb Hct MCV MCH MCHC RDW Plt Count Lymph % (Auto) [place] % (Auto) Eos % (Auto) Baso % (Auto) Absolute Neuts (auto) Absolute Lymphs (auto) Absolute Monos (auto) Absolute Eos (auto) Absolute Basos (auto) Total Counted Seg Neutrophils % Seg Neuts % (Manual) Lymphocytes % (Manual) Monocytes % (Manual) Eosinophils % (Manual) Basophils % (Manual) Abs Neuts (Manual) Abs Lymphs (Manual) Abs Monocytes (Manual) Absolute Eos (Manual) Abs Basophils (Manual) Toxic Granulation Platelet Comment Hypochromasia Poikilocytosis Anisocytosis Microcytosis Ovalocytes PT INR APTT Sodium 133.7 L Potassium 4.6 Chloride 95 L Carbon Dioxide 39 H Anion Gap 0 L BUN 57 H Creatinine 1.06 Est GFR ( Amer) > 60 Est GFR (MDRD) Non-Af > 60 Glucose 86 Lactic Acid Calcium 8.4 Total Bilirubin Direct Bilirubin Neonat Total Bilirubin Neonat Direct Bilirubin Neonat Indirect Bili AST ALT Alkaline Phosphatase Troponin I NT-Pro-B Natriuret Pep Total Protein Albumin Urine Color Urine Appearance Urine pH Ur Specific [place] Urine Protein Urine Glucose (UA) Urine Ketones Urine Blood Urine Nitrite Urine Bilirubin Urine Urobilinogen Ur Leukocyte Esterase Urine RBC Urine WBC Ur Squamous Epith Cells Urine Ascorbic Acid COVID-19 Source Cancelled COVID-19 ([facility]) Cancelled SARS-CoV-2 (PCR) NEGATIVE 01/27/20 01/27/20 01/27/20 06:10 06:10 06:10 WBC 11.6 H RBC 3.76 L Hgb 9.7 L Hct 29.3 L MCV 78 L MCH 25.8 L MCHC 33.2 RDW 18.2 H Plt Count 172 Lymph % (Auto) 10.5 L [place] % (Auto) 11.5 Eos % (Auto) 1.6 Baso % (Auto) 0.0 Absolute Neuts (auto) 8.9 H Absolute Lymphs (auto) 1.2 Absolute Monos (auto) 1.3 Absolute Eos (auto) 0.2 Absolute Basos (auto) 0.0 Total Counted Seg Neutrophils % 76.4 Seg Neuts % (Manual) Lymphocytes % (Manual) Monocytes % (Manual) Eosinophils % (Manual) Basophils % (Manual) Abs Neuts (Manual) Abs Lymphs (Manual) Abs Monocytes (Manual) Absolute Eos (Manual) Abs Basophils (Manual) Toxic Granulation Platelet Comment Hypochromasia Poikilocytosis Anisocytosis Microcytosis Ovalocytes PT INR APTT Sodium 137.0 Potassium 3.9 Chloride 94 L Carbon Dioxide 40 H* Anion Gap 3 L BUN 44 H Creatinine 0.76 Est GFR ( Amer) > 60 Est GFR (MDRD) Non-Af > 60 Glucose 132 H Lactic Acid Calcium 8.3 L Total Bilirubin Direct Bilirubin Neonat Total Bilirubin Neonat Direct Bilirubin Neonat Indirect Bili AST ALT Alkaline Phosphatase Troponin I NT-Pro-B Natriuret Pep 52530 H Total Protein Albumin Urine Color Urine Appearance Urine pH Ur Specific [place] Urine Protein Urine Glucose (UA) Urine Ketones Urine Blood Urine Nitrite Urine Bilirubin Urine Urobilinogen Ur Leukocyte Esterase Urine RBC Urine WBC Ur Squamous Epith Cells Urine Ascorbic Acid COVID-19 Source COVID-19 ([facility]) SARS-CoV-2 (PCR) 01/29/20 01/29/20 01/30/20 06:00 06:00 10:45 WBC 10.4 14.7 H RBC 3.72 L 3.50 L Hgb 9.5 L 8.8 L Hct 28.8 L 27.1 L MCV 77 L 77 L MCH 25.7 L 25.1 L MCHC 33.2 32.4 RDW 18.2 H 18.6 H Plt Count 162 164 Lymph % (Auto) 7.9 L 5.6 L [place] % (Auto) 10.7 9.0 Eos % (Auto) 1.6 1.5 Baso % (Auto) 0.3 0.3 Absolute Neuts (auto) 8.3 H 12.3 H Absolute Lymphs (auto) 0.8 0.8 Absolute Monos (auto) 1.1 1.3 Absolute Eos (auto) 0.2 0.2 Absolute Basos (auto) 0.0 0.1 Total Counted Seg Neutrophils % 79.5 H 83.6 H Seg Neuts % (Manual) Lymphocytes % (Manual) Monocytes % (Manual) Eosinophils % (Manual) Basophils % (Manual) Abs Neuts (Manual) Abs Lymphs (Manual) Abs Monocytes (Manual) Absolute Eos (Manual) Abs Basophils (Manual) Toxic Granulation Platelet Comment Hypochromasia Poikilocytosis Anisocytosis Microcytosis Ovalocytes PT INR APTT Sodium 136.3 L Potassium 3.7 Chloride 94 L Carbon Dioxide 37 H Anion Gap 5 BUN 41 H Creatinine 0.71 Est GFR ( Amer) > 60 Est GFR (MDRD) Non-Af > 60 Glucose 107 Lactic Acid Calcium 8.2 L Total Bilirubin Direct Bilirubin Neonat Total Bilirubin Neonat Direct Bilirubin Neonat Indirect Bili AST ALT Alkaline Phosphatase Troponin I NT-Pro-B Natriuret Pep Total Protein Albumin Urine Color Urine Appearance Urine pH Ur Specific [place] Urine Protein Urine Glucose (UA) Urine Ketones Urine Blood Urine Nitrite Urine Bilirubin Urine Urobilinogen Ur Leukocyte Esterase Urine RBC Urine WBC Ur Squamous Epith Cells Urine Ascorbic Acid COVID-19 Source COVID-19 ([facility]) SARS-CoV-2 (PCR) 01/30/20 01/30/20 01/30/20 10:45 10:45 10:45 WBC RBC Hgb Hct MCV MCH MCHC RDW Plt Count Lymph % (Auto) [place] % (Auto) Eos % (Auto) Baso % (Auto) Absolute Neuts (auto) Absolute Lymphs (auto) Absolute Monos (auto) Absolute Eos (auto) Absolute Basos (auto) Total Counted Seg Neutrophils % Seg Neuts % (Manual) Lymphocytes % (Manual) Monocytes % (Manual) Eosinophils % (Manual) Basophils % (Manual) Abs Neuts (Manual) Abs Lymphs (Manual) Abs Monocytes (Manual) Absolute Eos (Manual) Abs Basophils (Manual) Toxic Granulation Platelet Comment Hypochromasia Poikilocytosis Anisocytosis Microcytosis Ovalocytes PT 14.9 INR 1.17 APTT Sodium 134.8 L Potassium 4.0 Chloride 93 L Carbon Dioxide 39 H Anion Gap 3 L BUN 43 H Creatinine 0.83 Est GFR ( Amer) > 60 Est GFR (MDRD) Non-Af > 60 Glucose 130 H Lactic Acid Calcium 8.1 L Total Bilirubin Direct Bilirubin Neonat Total Bilirubin Neonat Direct Bilirubin Neonat Indirect Bili AST ALT Alkaline Phosphatase Troponin I NT-Pro-B Natriuret Pep 6210 H Total Protein Albumin Urine Color Urine Appearance Urine pH Ur Specific [place] Urine Protein Urine Glucose (UA) Urine Ketones Urine Blood Urine Nitrite Urine Bilirubin Urine Urobilinogen Ur Leukocyte Esterase Urine RBC Urine WBC Ur Squamous Epith Cells Urine Ascorbic Acid COVID-19 Source COVID-19 ([facility]) SARS-CoV-2 (PCR) 01/30/20 10:45 WBC RBC Hgb Hct MCV MCH MCHC RDW Plt Count Lymph % (Auto) [place] % (Auto) Eos % (Auto) Baso % (Auto) Absolute Neuts (auto) Absolute Lymphs (auto) Absolute Monos (auto) Absolute Eos (auto) Absolute Basos (auto) Total Counted Seg Neutrophils % Seg Neuts % (Manual) Lymphocytes % (Manual) Monocytes % (Manual) Eosinophils % (Manual) Basophils % (Manual) Abs Neuts (Manual) Abs Lymphs (Manual) Abs Monocytes (Manual) Absolute Eos (Manual) Abs Basophils (Manual) Toxic Granulation Platelet Comment Hypochromasia Poikilocytosis Anisocytosis Microcytosis Ovalocytes PT INR APTT Sodium Potassium Chloride Carbon Dioxide Anion Gap BUN Creatinine Est GFR ( Amer) Est GFR (MDRD) Non-Af Glucose Lactic Acid Calcium Total Bilirubin 0.3 Direct Bilirubin 0.0 Neonat Total Bilirubin Not Reportable Neonat Direct Bilirubin Not Reportable Neonat Indirect Bili Not Reportable AST 52 ALT 39 Alkaline Phosphatase 147 H Troponin I NT-Pro-B Natriuret Pep Total Protein 5.5 L Albumin 2.7 L Urine Color Urine Appearance Urine pH Ur Specific [place] Urine Protein Urine Glucose (UA) Urine Ketones Urine Blood Urine Nitrite Urine Bilirubin Urine Urobilinogen Ur Leukocyte Esterase Urine RBC Urine WBC Ur Squamous Epith Cells Urine Ascorbic Acid COVID-19 Source COVID-19 ([facility]) SARS-CoV-2 (PCR) Chest X-Ray 01/24/20 03:27 IMPRESSION: Cardiomegaly. Low lung volumes with mild interstitial prominence likely reflecting interstitial edema. Tiny effusions and/or pleural thickening copyright 2011 [employer]- All Rights Reserved Chest X-Ray 01/24/20 06:43 IMPRESSION: No pneumothorax following right IJ central line placement. Chest X-Ray 01/30/20 00:00 IMPRESSION: STABLE APPEARANCE OF THE CHEST. IMPRESSION/RECOMMENDATION: 1. Hypotension: Most likely secondary to pump failure.. This is resolved. The patient is off dopamine and his blood pressure is stable. 2. Acute on chronic systolic heart failure: Although the chest x-ray does not show CHF patient is JVD is elevated consistent with chronic heart failure with acute exacerbation. We will stop the patient's IV Lasix and change to IV Bumex. 3. COPD with exacerbation: Continue bronchodilators and consider steroids and antibiotics. 4. Coronary artery disease: No anginal symptoms. History of prior [place] 5. Dilated cardiomyopathy with severely reduced LV ejection fraction. Continue lisinopril and beta-sarina. Once the cardiovascular status is stable we will schedule the patient for IV Lexiscan Cardiolite stress test. Later would be recommended for referral for AICD placement. This will be done once the patient's cardiac and pulmonary status stabilizes. 6. Alcoholic cirrhosis by history: Patient counseled to avoid alcohol. Patient with possible ascites. Patient is going for ultrasound and possible paracentesis tomorrow. 7. History of hypertension: At present blood pressure low 8. History of tobacco abuse disorder: Patient counseled to refrain from smoking. 9. Right inguinal hernia: At present no evidence of obstruction or incarceration. 10. Chronic pain syndrome: Patient on gabapentin. 11. Hyperlipidemia: Continue statins. Medications reviewed. Medical regimen and management plan discussed with the attending provider on the case. Medical history making is of moderate complexity. 40-minute spent as patient more than 50% of time spent in direct patient care. Will follow
[2020-01-30] MEDS: SIMVASTATIN 40 MG TABLET PO SCH (23:32)
[2020-01-31] MEDS ORDERED: HALOPERIDOL LACTATE INJ 5 MG/1 ML VIAL ONE (01:27)
[2020-01-31] MEDS ORDERED: HALOPERIDOL LACTATE INJ 5 MG/1 ML VIAL IV PRN (01:28)
[2020-01-31] MEDS: BUMETANIDE INJ/PF 1 MG/4 ML SDV IV SCH ×2 (06:26→17:23)
[2020-01-31] MEDS: GABAPENTIN 300 MG CAPSULE PO SCH ×3 (06:27→21:24)
[2020-01-31] MEDS: MORPHINE SULFATE 10 MG/ML INJ IV PRN (06:31)
[2020-01-31] MEDS ORDERED: OXYCODONE-ACETAMINOPHEN 5-325 MG TABLET PO PRN (08:38)
[2020-01-31] MEDS: IPRATROPIUM/ALBUTEROL 0.5-2.5 MG/3 ML AMPUL NEB PRN ×2 (08:46→18:08)
--- NOTE | 2020-01-31 08:57 | RADIOLOGY REPORT (SQ) ---
EXAM DESCRIPTION: U/S SCROTUM W/DOPPLER IMAGES COMPLETED DATE/TIME: 01/30/2020 7:20 pm REASON FOR STUDY: Ascites COMPARISON: 11/27/2019. TECHNIQUE: Static and realtime fontana scale imaging of the scrotum and testes. Selected color Doppler and spectral images recorded to document blood flow. LIMITATIONS: None. FINDINGS: RIGHT: TESTICLE: Unremarkable in size measuring 2.7 x 1.9 x 1.8 cm. Mildly heterogeneous echotexture. Norm al blood flow. No mass. EPIDIDYMIS: Unremarkable in echogenicity and size measuring 1.3 cm at the head. HYDROCELE OR VARICOCELE: Small right-sided hydrocele measuring 1.8 x 0.4 x 2.4 cm with an estimated v olume of 0.8 cm3. Additional more focal collection within the right inguinal canal with some interna l debris measuring approximately 8.5 x 7.1 x 6.6 cm, increased in size compared to prior CT and ultra sound HERNIA OR EXTRA-TESTICULAR MASS: Inguinal hernia measuring approximately 6.3 x 3.3 x 4.6 cm with a p eristalsing bowel loops. OTHER: Scrotal wall thickening measuring up to 2.3 cm. LEFT: TESTICLE: Unremarkable in size measuring 3.3 x 1.4 x 1.9 cm. Mildly heterogeneous echotexture. Norm al blood flow. No mass. EPIDIDYMIS: Unremarkable in size and echogenicity 1.1 cm at the head. HYDROCELE OR VARICOCELE: There is a small hydrocele measuring 1.9 x 0.6 x 1.6 cm with an estimated vo lume of 0.9 cm3. HERNIA OR EXTRA-TESTICULAR MASS: There is a inguinal hernia containing loop of peristalsing bowel [place] approximately 7.2 x 2.0 x 4.7 cm. OTHER: Scrotal wall thickening measuring up to 1.2 cm. IMPRESSION: 1. Small bilateral bowel containing inguinal hernias. 2. Small bilateral hydroceles. Additional more focal collection within the right inguinal canal [place] approximately 8.5 x 7.1 x 6.6 cm, possibly loculated right-sided hydrocele. This has increase d in size compared to prior CT and ultrasound. Diffuse bilateral scrotal wall thickening. Recommend correlation with physical exam. 3. Grossly unremarkable testicular and epididymal parenchymal bilaterally. TECHNICAL DOCUMENTATION: JOB ID: [id number] 2011 [employer]- All Rights Reserved Reading location - IP/workstation name: [email or web address]
[2020-01-31] MEDS: PREDNISONE 20 MG TABLET PO SCH (10:00)
[2020-01-31] MEDS: SPIRONOLACTONE 25 MG TABLET PO SCH (10:00)
[2020-01-31] MEDS: CEFTRIAXONE 2 GM/D5W RTU 2 GM/50 ML RTUPB IV SCH (10:00)
[2020-01-31] MEDS: GUAIFENESIN 600 MG TABLET.SA PO SCH ×2 (10:00→21:24)
[2020-01-31] MEDS: ROFLUMILAST 500 MCG TABLET PO SCH (10:00)
[2020-01-31] MEDS: FOLIC ACID 1 MG TABLET PO SCH (10:01)
[2020-01-31] MEDS: DOCUSATE SODIUM 100 MG CAPSULE PO SCH (10:01)
[2020-01-31] MEDS: DIGOXIN INJ 0.5 MG/2 ML AMPULE IV SCH (10:01)
[2020-01-31] MEDS: LISINOPRIL 5 MG TABLET PO SCH (10:01)
[2020-01-31] MEDS: METOPROLOL SUCCINATE 25 MG TAB.SR.24H PO SCH ×2 (10:01→21:24)
[2020-01-31] MEDS: MIDODRINE HCL 5 MG TABLET PO SCH ×3 (10:01→17:22)
[2020-01-31] MEDS: FLUTICASONE/VILANTEROL 200-25 MCG/DOSE IH SCH (10:05)
[2020-01-31] MEDS: ENOXAPARIN SODIUM INJ 40 MG/0.4 ML DISP.SYRIN SUBCUT SCH (10:07)
[2020-01-31 10:09] LABS: ABSOLUTE EOSINOPHILS # (AUTO) 0.1 10^3/uL (0.0-0.6); ABSOLUTE LYMPHOCYTES (AUTO) 0.8 10^3/uL (0.5-4.7); ABSOLUTE MONOCYTES (AUTO) 0.9 10^3/uL (0.1-1.4); ABSOLUTE NEUT (AUTO) 8.9 10^3/uL (1.7-8.2); BASOPHILS % (AUTO) 0.4 % (0-2); HEMATOCRIT 26.5 % (37.9-51.0); HEMOGLOBIN 8.8 g/dL (13.5-17.0); LYMPHOCYTES % (AUTO) 7.4 % (13-45); MEAN CORPUSCULAR HEMOGLOBIN 25.8 pg (27.0-33.4); MEAN CORPUSCULAR HGB CONC 33.3 g/dL (32.0-36.0); MEAN CORPUSCULAR VOLUME 77 fl (80-97); PLATELET COUNT 138 10^3/uL (150-450); RED BLOOD COUNT 3.42 10^6/uL (4.35-5.55); RED CELL DISTRIBUTION WIDTH 18.5 % (11.5-14.0); SEGMENTED NEUTROPHILS % (AUTO) 83.2 % (42-78); TOTAL CELLS COUNTED % (AUTO) 100 %; WHITE BLOOD COUNT 10.7 10^3/uL (4.0-10.5)
[2020-01-31 12:39] LABS: FLUID COLOR STRAW; FLUID SOURCE ASCITES; FLUID TYPE PERITONEAL
[2020-01-31 12:40] LABS: FLUID APPEARANCE CLEAR; FLUID VISCOSITY LIQUID
--- NOTE | 2020-01-31 13:02 | RADIOLOGY REPORT (SQ) ---
EXAM DESCRIPTION: U/S ABD PARACENTESIS IMAGES COMPLETED DATE/TIME: 01/31/2020 12:33 pm REASON FOR STUDY: Ascites COMPARISON: 11/27/2019 LIMITATIONS: None. PROCEDURE: Procedure, risks, benefit, and alternative explained to patient who then gave written con sent. The right lower abdominal wall marked using ultrasound guidance. A time-out was called for co rrect marking verification. Abdomen prepped and draped using sterile technique. Local anesthesia ach ieved using 10 ml of 1% lidocaine injection. A 6fr Tnfm-O-Moabuoza set was introduced into the perit barriga cavity. Fluid was drained. The catheter was removed and entry site was covered with sterile b andage. No immediate complications noted. Images acquired during the procedure were stored on PACS. FINDINGS: ENTRY SITE: Right lower quadrant FLUID VOLUME: 3,050 CC FLUID ANALYSIS: Straw-colored OTHER: Fluid sent to the lab for testing. IMPRESSION: SUCCESSFUL ULTRASOUND GUIDED PARACENTESIS. COMMENT: Patient medication list reviewed:Yes- Quality ID# [id number]:Eligible professional attests to docu menting in the medical record they obtained, updated, or reviewed the patient's current medications. TECHNICAL DOCUMENTATION: JOB ID: [id number] 2010 [employer]- All Rights Reserved Reading location - IP/workstation name: [email or web address]
[2020-01-31] MEDS: BISACODYL 5 MG TABEC PO PRN (13:39)
[2020-01-31] MEDS: OXYCODONE HCL IR 5 MG TABLET PO PRN ×2 (17:22→21:23)
--- NOTE | 2020-01-31 17:26 | PDOC PROGRESS REPORT ---
Subjective Progress Note for:: 01/31/20 Subjective:: Patient was seen on afternoon rounds after returning from paracentesis. He was sleeping soundly; woke briefly when asked that his name, but fell quickly back to sleep and did not participate in conversation or exam. He does appear to be comfortable and is not noted to be in any acute distress. Per nursing, patient has reported decreased abdominal discomfort since return from paracentesis. Blood pressures have remained stable. No other concerns per nursing at this time. Reason For Visit: CHF EXCAERBATION Physical Exam Vital Signs: Temp Pulse Resp BP Pulse Ox 97.8 F 78 21 H 111/55 L 98 01/31/20 15:12 01/31/20 15:12 01/31/20 15:12 01/31/20 15:12 01/31/20 15:12 Intake & Output 01/30/20 01/31/20 02/01/20 06:59 06:59 06:59 Intake Total 1125 1080 532 Output Total 1600 1925 Balance -475 -845 532 Weight 84.5 kg 85.6 kg 85.6 kg General appearance: PRESENT: no acute distress, well-developed, well-nourished Head exam: PRESENT: atraumatic, normocephalic Eye exam: PRESENT: conjunctiva pink, EOMI, PERRLA. ABSENT: scleral icterus Mouth exam: PRESENT: moist, tongue midline Respiratory exam: PRESENT: prolonged expiratory phas, rhonchi, symmetrical, unlabored, other - Supplemental oxygen by nasal cannula. ABSENT: rales, wheezes Cardiovascular exam: PRESENT: RRR. ABSENT: diastolic murmur, rubs, systolic murmur Pulses: PRESENT: normal dorsalis pedis pul Vascular exam: PRESENT: normal capillary refill GI/Abdominal exam: PRESENT: distended, normal bowel sounds, soft. ABSENT: guarding, mass, organolmegaly, rebound, tenderness Rectal exam: PRESENT: deferred Gentrourinary exam: PRESENT: indwelling catheter Extremities exam: PRESENT: full ROM, +2 edema - BLE. ABSENT: calf tenderness, clubbing, pedal edema Neurological exam: PRESENT: CN II-XII grossly intact, other - Sleeping soundly. ABSENT: motor sensory deficit Skin exam: PRESENT: dry, intact, warm. ABSENT: cyanosis, rash Results Laboratory Results: 01/31/20 09:50 01/30/20 10:45 01/31/20 01/31/20 09:50 11:15 WBC 10.7 H RBC 3.42 L Hgb 8.8 L Hct 26.5 L MCV 77 L MCH 25.8 L MCHC 33.3 RDW 18.5 H Plt Count 138 L Seg Neutrophils % 83.2 H Fluid Type PERITONEAL Fluid Source ASCITES Fluid Color STRAW Fluid Appearance CLEAR Fluid Viscosity LIQUID Fluid WBC 528 Fluid RBC 341 01/24/20 01/27/20 01/30/20 06:58 06:10 10:45 Troponin I 0.031 NT-Pro-B Natriuret Pep 19434 H 28049 H 6210 H Impressions: Chest X-Ray 01/30/20 00:00 IMPRESSION: STABLE APPEARANCE OF THE CHEST. Scrotum Ultrasound 01/30/20 00:00 IMPRESSION: 1. Small bilateral bowel containing inguinal hernias. 2. Small bilateral hydroceles. Additional more focal collection within the right inguinal canal measuring approximately 8.5 x 7.1 x 6.6 cm, possibly loculated right-sided hydrocele. This has increased in size compared to prior CT and ultrasound. Diffuse bilateral scrotal wall thickening. Recommend correlation with physical exam. 3. Grossly unremarkable testicular and epididymal parenchymal bilaterally. Paracentesis Ultrasound 01/31/20 00:00 IMPRESSION: SUCCESSFUL ULTRASOUND GUIDED PARACENTESIS. Assessment and Plan - Diagnosis (1) CHF (congestive heart failure) Qualifiers: Heart failure type: combined systolic and diastolic Heart failure chronicity: acute on chronic Qualified Code(s): I50.43 - Acute on chronic combined systolic (congestive) and diastolic (congestive) heart failure Is this a current diagnosis for this admission?: Yes Plan: She is admitted to [facility] and monitored on continuous cardiac telemetry. Cardiology is consulted; primary management per Dr. Long's expertise. No longer on dopamine drip. Blood pressure stable following paracentesis and removal of 3 L today. Currently on Midrin 10 mg 3 times daily for blood pressure support, metoprolol, spironolactone, and IV Bumex. Daily statin. Cardiac diet Daily weights, strict I&O's. (2) Acute and chronic respiratory failure Qualifiers: Respiratory failure complication: hypoxia Qualified Code(s): J96.21 - Acute and chronic respiratory failure with hypoxia Is this a current diagnosis for this admission?: Yes Plan: Acute exacerbation is resolved. Acute worsening respiratory failure is secondary to CHF exacerbation. Return to baseline oxygen requirement. (3) Shortness of breath Is this a current diagnosis for this admission?: Yes Plan: Secondary to underlying CHF and COPD and cirrhosis. Patient is on 3 L of oxygen regularly; currently on baseline supplemental oxygen. (4) Ascites Is this a current diagnosis for this admission?: Yes Plan: s/p paracentesis with removal of 3 L fluid Initial laboratory evaluation unremarkable; WBCs 528, RBCs 341. Glucose, albumin, LDH pending. Gram stain and culture pending. Continue spironolactone and IV Bumex as above. (5) Cirrhosis of liver Qualifiers: Hepatic cirrhosis type: alcoholic cirrhosis Is this a current diagnosis for this admission?: Yes Plan: History of cirrhosis of the liver complicating his fluid retention. Likely related to history of heavy alcohol use. Will obtain hepatitis panel to rule out chronic hep C. Status post paracentesis with 3 L removed. Blood pressures are stable; does not require albumin at this time. Continue IV ceftriaxone for coverage of SBP; although, low suspicion given low WBCs. Cultures pending. (6) Hernia, inguinal, right Is this a current diagnosis for this admission?: Yes Plan: This is apparently a known an old issue. He definitely is not a surgical candidate at this time pending cardiac clearance. Stress test planned for tomorrow. Scrotal sonogram revealed small bilateral bowel containing inguinal hernias. Small bilateral hydroceles; R possible loculated. Will discuss with Urology via telephone consult. - Time Time Spent with patient: 35 or more minutes Medications reviewed and adjusted accordingly: Yes
[2020-01-31] MEDS: SIMVASTATIN 40 MG TABLET PO SCH (21:24)
--- NOTE | 2020-01-31 22:55 | Progress Note ---
Provider Note Provider Note: CARDIOLOGY PROGRESS NOTE by Dr. Lorenza Sandoval on 01/31/2020. SUBJECTIVE: The patient had an uneventful paracentesis and about 3 L of acetic fluid was removed. The patient's abdomen is now not distended. The patient feels much improved and denies any chest pain or discomfort. There is no shortness of breath. There is no PND orthopnea. There is no cough or wheezing. There is only trace leg edema. There is no ventricular or atrial arrhythmias seen on the monitor. His blood pressures improved. physical EXAMINATION: The patient is a frail build and appears to be chronically ill and malnourished. At present in no acute distress. Selected Entries 01/31/20 12:14 Temperature 97.8 F Temperature Oral Source Pulse Rate 79 Respiratory 19 Rate Blood Pressure 114/52 L Blood Pressure 72 Mean BP Location Left Arm BP Position Supine O2 Sat by Pulse 100 Oximetry Oxygen Flow 3.00 Rate Oxygen Delivery Nasal Cannula Method HEAD: Is atraumatic normocephalic. EYES: Pupils are equal round regular reactive to light accommodation. Extraocular movements are normal. There is no conjunctival pallor. There is no scleral icterus. EARS: Tympanic membranes are intact. External auditory canals are clear. NOSE: There is no deviated nasal septum. There is no inflammation nasal mucous membrane. MOUTH: Mucous membranes of the mouth are moist. Tongue is moist there is no ulcers. There is no bleeding from the gums THROAT: There is no redness of the oropharynx. There is no exudates. SKIN: There is no skin rashes. There is no skin lesions. There is no petechia or ecchymosis. NECK: Is supple there is mild JVD present. Carotids are equal there is no bruits. There is no lymphadenopathy. There is no goiter. There is no accessory muscle respiration use. Trachea central. LUNGS: There is diminished air entry prolonged expiration. Lungs are clear bilaterally. There is no rhonchi and today there is no wheezing. There is no rales of CHF. On percussion there is hyperresonance. HEART: S1-S2 is heard. There is no S3 gallop. There is no S4 gallop. Systolic murmur left sternal border and the apex there is no rub. ABDOMEN: Soft There is no definite hepatosplenomegaly. There is no ascites present. There is a reducible right inguinal hernia present there is no tender areas masses. EXTREMITIES: Femorals are diminished. There is no femoral bruits. Leg pulses are diminished. There is trace pedal edema bilaterally. There is no DVT or cellulitis. There is no calf tenderness. There is no cyanosis or clubbing. SPORTS ADMINISTRATOR: The patient is conscious awake alert oriented x3 with no focal deficits. PSYCHIATRIC the patient judgment insight are intact her affect is normal. Patient's 24-hour intake is 1080, 24-hour output is 1925 mL. About 3 L of asctic fluid removed by paracentesis. Labs- All tests 24 hr 01/31/20 01/31/20 09:50 11:15 WBC 10.7 H RBC 3.42 L Hgb 8.8 L Hct 26.5 L MCV 77 L MCH 25.8 L MCHC 33.3 RDW 18.5 H Plt Count 138 L Lymph % (Auto) 7.4 L [place] % (Auto) 8.0 Eos % (Auto) 1.0 Baso % (Auto) 0.4 Absolute Neuts (auto) 8.9 H Absolute Lymphs (auto) 0.8 Absolute Monos (auto) 0.9 Absolute Eos (auto) 0.1 Absolute Basos (auto) 0.0 Seg Neutrophils % 83.2 H Fluid Type PERITONEAL Fluid Source ASCITES Fluid Color STRAW Fluid Appearance CLEAR Fluid Viscosity LIQUID Fluid WBC 528 Fluid RBC 341 Fluid Seg Neutrophils 83 Fluid Lymphocytes 15 Fluid Monocytes 2 Fluid Eosinophils 0 Fluid Basophils 0 Chest X-Ray 01/24/20 03:27 IMPRESSION: Cardiomegaly. Low lung volumes with mild interstitial prominence likely reflecting interstitial edema. Tiny effusions and/or pleural thickening copyright 2011 [employer]- All Rights Reserved Chest X-Ray 01/24/20 06:43 IMPRESSION: No pneumothorax following right IJ central line placement. Chest X-Ray 01/30/20 00:00 IMPRESSION: STABLE APPEARANCE OF THE CHEST. Scrotum Ultrasound 01/30/20 00:00 IMPRESSION: 1. Small bilateral bowel containing inguinal hernias. 2. Small bilateral hydroceles. Additional more focal collection within the right inguinal canal measuring approximately 8.5 x 7.1 x 6.6 cm, possibly loculated right-sided hydrocele. This has increased in size compared to prior CT and ultrasound. Diffuse bilateral scrotal wall thickening. Recommend correlation with physical exam. 3. Grossly unremarkable testicular and epididymal parenchymal bilaterally. Paracentesis Ultrasound 01/31/20 00:00 IMPRESSION: SUCCESSFUL ULTRASOUND GUIDED PARACENTESIS. IMPRESSION/RECOMMENDATION: 1. Hypotension: Most likely secondary to pump failure.. This is resolved. The patient is off dopamine and his blood pressure is stable. He is on midodrine. 2. Acute on chronic systolic heart failure: Although the chest x-ray does not show CHF patient is JVD is elevated consistent with chronic heart failure with acute exacerbation. We will stop the patient's IV Lasix and change to IV Bumex. 3. COPD with exacerbation: Continue bronchodilators and consider steroids and antibiotics. 4. Coronary artery disease: No anginal symptoms. History of prior VT 5. Dilated cardiomyopathy with severely reduced LV ejection fraction. Continue beta-sarina. We will stop the patient's lisinopril in anticipation of starting the patient on Entresto. Cardiovascular status is stable and hence will schedule the patient for IV Lexiscan Cardiolite stress test. This will be done tomorrow. Later would be recommended for referral for AICD placement. This will be done once the patient's cardiac and pulmonary status stabilizes. 6. Alcoholic cirrhosis by history: The patient had 3 L of acetic fluid removed by paracentesis today and feels much more comfortable. 7. History of hypertension: At present blood pressure low 8. History of tobacco abuse disorder: Patient counseled to refrain from smoking. 9. Right inguinal hernia: At present no evidence of obstruction or incarceration. 10. Chronic pain syndrome: Patient on gabapentin. 11. Hyperlipidemia: Continue statins. Medications reviewed medications adjusted. Medical regimen and management plan discussed with the attending provider uppercase. Medical decision making is a moderate to high complexity. Patient has been scheduled for stress test tomorrow the procedure risks benefits and complications of all been explained to the patient in detail. 40 minutes spent with patient more than 50% time spent in direct patient care. Will follow.
[2020-02-01] MEDS: IPRATROPIUM/ALBUTEROL 0.5-2.5 MG/3 ML AMPUL NEB PRN ×2 (00:16→20:44)
[2020-02-01] MEDS: OXYCODONE HCL IR 5 MG TABLET PO PRN ×6 (01:27→23:39)
[2020-02-01] MEDS: GABAPENTIN 300 MG CAPSULE PO SCH ×3 (05:51→21:32)
[2020-02-01] MEDS: BUMETANIDE INJ/PF 1 MG/4 ML SDV IV SCH ×2 (05:55→17:30)
[2020-02-01 06:21] LABS: HEMATOCRIT 24.8 % (37.9-51.0); HEMOGLOBIN 8.2 g/dL (13.5-17.0); MEAN CORPUSCULAR HEMOGLOBIN 25.5 pg (27.0-33.4); MEAN CORPUSCULAR HGB CONC 32.9 g/dL (32.0-36.0); MEAN CORPUSCULAR VOLUME 78 fl (80-97); PLATELET COUNT 132 10^3/uL (150-450); RED CELL DISTRIBUTION WIDTH 18.6 % (11.5-14.0); WHITE BLOOD COUNT 9.6 10^3/uL (4.0-10.5)
[2020-02-01 06:43] LABS: BLOOD UREA NITROGEN 31 mg/dL (7-20); CALCIUM 8.2 mg/dL (8.4-10.2); GLUCOSE 101 mg/dL (75-110); POTASSIUM 3.8 mmol/L (3.6-5.0)
[2020-02-01 06:49] LABS: CARBON DIOXIDE 37 mmol/L (22-30); CHLORIDE 95 mmol/L (98-107)
[2020-02-01 06:53] LABS: ANION GAP 2 (5-19)
[2020-02-01] MEDS ORDERED: REGADENOSON INJ 0.4 MG/5 ML DISP.SYRIN IV ONE (11:15)
[2020-02-01] MEDS: ROFLUMILAST 500 MCG TABLET PO SCH (11:19)
[2020-02-01] MEDS: PREDNISONE 20 MG TABLET PO SCH (11:19)
[2020-02-01] MEDS: DOCUSATE SODIUM 100 MG CAPSULE PO SCH ×2 (11:19→17:30)
[2020-02-01] MEDS: FOLIC ACID 1 MG TABLET PO SCH (11:20)
[2020-02-01] MEDS: GUAIFENESIN 600 MG TABLET.SA PO SCH ×2 (11:21→21:33)
[2020-02-01] MEDS: DIGOXIN INJ 0.5 MG/2 ML AMPULE IV SCH (11:21)
[2020-02-01] MEDS: METOPROLOL SUCCINATE 25 MG TAB.SR.24H PO SCH ×2 (11:21→21:33)
[2020-02-01] MEDS: BISACODYL 5 MG TABEC PO PRN (11:21)
[2020-02-01] MEDS: SPIRONOLACTONE 25 MG TABLET PO SCH (11:21)
[2020-02-01] MEDS: FLUTICASONE/VILANTEROL 200-25 MCG/DOSE IH SCH (11:22)
[2020-02-01] MEDS: MIDODRINE HCL 5 MG TABLET PO SCH ×3 (11:22→17:30)
[2020-02-01] MEDS: CEFTRIAXONE 2 GM/D5W RTU 2 GM/50 ML RTUPB IV SCH (11:22)
[2020-02-01] MEDS: ENOXAPARIN SODIUM INJ 40 MG/0.4 ML DISP.SYRIN SUBCUT SCH (11:22)
--- NOTE | 2020-02-01 13:23 | PDOC PROGRESS REPORT ---
Subjective Progress Note for:: 02/01/20 Subjective:: Patient was seen on morning rounds after returning from stress test. He states he is feeling well other than constipation. Reports last bm >1 week ago and is uncertain as to if he is passing flatus. Otherwise, he denies fever, chest pain, palpitations, nausea and vomiting. No other questions or concerns. No concerns per nursing at this time. Reason For Visit: CHF EXCAERBATION Physical Exam Vital Signs: Temp Pulse Resp BP Pulse Ox 97.9 F 77 20 119/64 94 02/01/20 12:00 02/01/20 12:00 02/01/20 12:00 02/01/20 12:00 02/01/20 12:00 Intake & Output 01/31/20 02/01/20 02/02/20 06:59 06:59 06:59 Intake Total 1080 1382 472 Output Total 1925 2325 Balance -845 -943 472 Weight 85.6 kg 80.9 kg General appearance: PRESENT: no acute distress, cooperative, well-developed, well-nourished Head exam: PRESENT: atraumatic, normocephalic Eye exam: PRESENT: conjunctiva pink, EOMI, PERRLA. ABSENT: scleral icterus Mouth exam: PRESENT: moist, tongue midline Neck exam: ABSENT: carotid bruit, JVD, lymphadenopathy, thyromegaly Respiratory exam: PRESENT: clear to auscultation rossy, symmetrical, unlabored, other - Oxygen requirement. ABSENT: rales, rhonchi, wheezes Cardiovascular exam: PRESENT: RRR, +S1, +S2. ABSENT: diastolic murmur, rubs, systolic murmur Pulses: PRESENT: +1 pedal pulses bilateral Vascular exam: PRESENT: normal capillary refill GI/Abdominal exam: PRESENT: distended, hypoactive bowel sounds, normal bowel sounds, tenderness - Generalized. ABSENT: guarding, mass, organolmegaly, rebound Rectal exam: PRESENT: deferred Extremities exam: PRESENT: full ROM, +1 edema - BLE pitting edema. ABSENT: calf tenderness, clubbing, pedal edema Musculoskeletal exam: PRESENT: ambulatory Neurological exam: PRESENT: alert, awake, oriented to person, oriented to place, oriented to time, oriented to situation, CN II-XII grossly intact. ABSENT: motor sensory deficit Psychiatric exam: PRESENT: appropriate affect, normal mood. ABSENT: homicidal ideation, suicidal ideation Skin exam: PRESENT: dry, intact, warm. ABSENT: cyanosis, rash Results Laboratory Results: 02/01/20 05:58 02/01/20 05:58 01/31/20 01/31/20 01/31/20 11:15 11:15 11:15 WBC RBC Hgb Hct MCV MCH MCHC RDW Plt Count Sodium Potassium Chloride Carbon Dioxide Anion Gap BUN Creatinine Est GFR ( Amer) Glucose Calcium Fluid Glucose 140 Fluid Albumin 0.5 Fluid LDH 69 02/01/20 02/01/20 05:58 05:58 WBC 9.6 RBC 3.20 L Hgb 8.2 L Hct 24.8 L MCV 78 L MCH 25.5 L MCHC 32.9 RDW 18.6 H Plt Count 132 L Sodium 133.9 L Potassium 3.8 Chloride 95 L Carbon Dioxide 37 H Anion Gap 2 L BUN 31 H Creatinine 0.70 Est GFR ( Amer) > 60 Glucose 101 Calcium 8.2 L Fluid Glucose Fluid Albumin Fluid LDH 01/30/20 10:45 Sputum Gram Stain - Final 01/24/20 01/27/20 01/30/20 06:58 06:10 10:45 Troponin I 0.031 NT-Pro-B Natriuret Pep 11249 H 00552 H 6210 H Impressions: Chest X-Ray 01/30/20 00:00 IMPRESSION: STABLE APPEARANCE OF THE CHEST. Scrotum Ultrasound 01/30/20 00:00 IMPRESSION: 1. Small bilateral bowel containing inguinal hernias. 2. Small bilateral hydroceles. Additional more focal collection within the right inguinal canal measuring approximately 8.5 x 7.1 x 6.6 cm, possibly loculated right-sided hydrocele. This has increased in size compared to prior CT and ultrasound. Diffuse bilateral scrotal wall thickening. Recommend correlation with physical exam. 3. Grossly unremarkable testicular and epididymal parenchymal bilaterally. Paracentesis Ultrasound 01/31/20 00:00 IMPRESSION: SUCCESSFUL ULTRASOUND GUIDED PARACENTESIS. Assessment and Plan - Diagnosis (1) CHF (congestive heart failure) Qualifiers: Heart failure type: combined systolic and diastolic Heart failure chronicity: acute on chronic Qualified Code(s): I50.43 - Acute on chronic combined systolic (congestive) and diastolic (congestive) heart failure Is this a current diagnosis for this admission?: Yes Plan: Improved. He is admitted to [facility] and monitored on continuous cardiac telemetry. Cardiology is consulted; primary management per Dr. Comer's expertise. No longer on dopamine drip. Blood pressure stable following paracentesis and removal of 3 L yesterday Currently on Midodrine 10 mg 3 times daily for blood pressure support, metoprolol, spironolactone, and IV Bumex. Daily statin. Cardiac diet Daily weights, strict I&O's. (2) Acute and chronic respiratory failure Qualifiers: Respiratory failure complication: hypoxia Qualified Code(s): J96.21 - Acute and chronic respiratory failure with hypoxia Is this a current diagnosis for this admission?: Yes Plan: Acute exacerbation is resolved. Acute worsening respiratory failure is secondary to CHF exacerbation. Return to baseline oxygen requirement. (3) Shortness of breath Is this a current diagnosis for this admission?: Yes Plan: Resolved. Secondary to underlying CHF and COPD and cirrhosis. Patient is on 3 L of oxygen regularly; currently on baseline supplemental oxygen. (4) Ascites Is this a current diagnosis for this admission?: Yes Plan: s/p paracentesis with removal of 3 L fluid Initial laboratory evaluation unremarkable; WBCs 528, RBCs 341. SAAG >1.1 g/dl; likely some portal hypertension. Gram stain and culture have No growth at 1 day Continue spironolactone and IV Bumex as above. (5) Cirrhosis of liver Qualifiers: Hepatic cirrhosis type: alcoholic cirrhosis Is this a current diagnosis for this admission?: Yes Plan: History of cirrhosis of the liver complicating his fluid retention. Likely related to history of heavy alcohol use. Will obtain hepatitis panel to rule out chronic hep C. Status post paracentesis with 3 L removed. Blood pressures are stable; does not require albumin at this time. Continue IV ceftriaxone for coverage of SBP; although, low suspicion given low WBCs. Cultures pending. (6) Hernia, inguinal, right Is this a current diagnosis for this admission?: Yes Plan: This is apparently a known an old issue. He definitely is not a surgical candidate at this time pending cardiac clearance. Stress test planned for tomorrow. Scrotal sonogram revealed small bilateral bowel containing inguinal hernias. Small bilateral hydroceles; R possible loculated. (7) Constipation Qualifiers: Constipation type: unspecified constipation type Qualified Code(s): K59.00 - Constipation, unspecified Is this a current diagnosis for this admission?: Yes Plan: KUB pending Soap suds enema. Escalate bowel protocol once obstruction is r/o - Time Time Spent with patient: 35 or more minutes Medications reviewed and adjusted accordingly: Yes Anticipated discharge: Home with Homehealth Within: within 48 hours
--- NOTE | 2020-02-01 13:36 | RADIOLOGY REPORT (SQ) ---
EXAM DESCRIPTION: KUB/ABDOMEN (SINGLE VIEW) IMAGES COMPLETED DATE/TIME: 02/01/2020 1:27 pm REASON FOR STUDY: distention, discomfort COMPARISON: 11/29/2019 NUMBER OF VIEWS: One view. TECHNIQUE: Supine radiographic image of the abdomen acquired. LIMITATIONS: None. FINDINGS: BOWEL GAS PATTERN: Gas pattern is nonobstructive. There is a large amount of stool throug hout the colon consistent with severe constipation. CALCIFICATIONS: No suspicious calcifications. SOFT TISSUES: No gross mass or suggestion of organomegaly. HARDWARE: None in the abdomen. BONES: No acute fracture. No worrisome bone lesions. OTHER: No other significant finding. IMPRESSION: Severe constipation. This has progressed when compared to November. TECHNICAL DOCUMENTATION: JOB ID: [id number] 2010 [facility] [place]- All Rights Reserved Reading location - IP/workstation name: [email or web address]
[2020-02-01] MEDS ORDERED: LACTULOSE SYRUP 20 GM/30 ML UDCUP PO ONE (17:30)
--- NOTE | 2020-02-01 20:17 | RADIOLOGY REPORT (SQ) ---
INDICATION: Atherosclerotic cardiovascular disease. COMPARISON: None. CORRELATION: Chest radiography January 30, 2020. TECHNIQUE: Nuclear medicine gated SPECT cardiac scintigraphy was performed using standard protocol after intravenous administration of 48.05 mCi of technetium 99m labeled sestamibi at maximal stress. Rest imaging was not performed Both visual and computer-assisted digital analysis were performed. Raw data and processed SPECT imaging have been reviewed. The patient was stressed by Department of Cardiology. Their report is dictated separately. FINDINGS: Homogeneous localization of radiotracer is identified to the myocardium. No perfusion defects are identified. Diaphragmatic attenuation artifact is seen. Gated analysis demonstrates global hypokinesia. Dilated left ventricle. Ejection fraction is visually reduced and digitally measures 22 %. End diastolic volume equals 191 cc. End systolic volume equals 150 cc. IMPRESSION: No perfusion defects are identified. Dilated left ventricle with global hypokinesia. Markedly reduced ejection fraction measuring 22%.
[2020-02-01] MEDS: SIMVASTATIN 40 MG TABLET PO SCH (21:33)
--- NOTE | 2020-02-01 22:00 | Progress Note ---
Provider Note Provider Note: CARDIOLOGY PROGRESS NOTE by Dr. Garcia is 1 on 02/01/2020. SUBJECTIVE: The patient denies any chest pain or discomfort there is no shortness of breath. There is no PND orthopnea. There is no arrhythmias seen on the monitor. There is only trace leg edema. There is no TIA CVA symptoms. There is no atrioventricular arrhythmias seen on the monitor. The patient had an uneventful IV Lexiscan Cardiolite stress test this morning. PHYSICAL EXAMINATION: The patient is a frail build and appears to be chronically ill and malnourished. But he is in no acute distress. Selected Entries 02/01/20 16:00 Temperature 98.3 F Temperature Oral Source Pulse Rate 91 Respiratory 18 Rate Blood Pressure 124/65 Blood Pressure 84 Mean BP Location Right Arm BP Position Sitting O2 Sat by Pulse 100 Oximetry Oxygen Flow 2.50 Rate Oxygen Delivery Nasal Cannula Method HEAD: Is atraumatic normocephalic. EYES: Pupils are equal round regular reactive to light accommodation. Extraocular movements are normal. There is no conjunctival pallor. There is no scleral icterus. EARS: Tympanic membranes are intact. External auditory canals are clear. NOSE: There is no deviated nasal septum. There is no inflammation nasal mucous membrane. MOUTH: Mucous membranes of the mouth are moist. Tongue is moist there is no ulcers. There is no bleeding from the gums THROAT: There is no redness of the oropharynx. There is no exudates. SKIN: There is no skin rashes. There is no skin lesions. There is no petechia or ecchymosis. NECK: Is supple there is mild JVD present. Carotids are equal there is no bruits. There is no lymphadenopathy. There is no goiter. There is no accessory muscle respiration use. Trachea central. LUNGS: There is diminished air entry prolonged expiration. Lungs are clear bilaterally. There is no rhonchi and today there is no wheezing. There is no rales of CHF. On percussion there is hyperresonance. HEART: S1-S2 is heard. There is no S3 gallop. There is no S4 gallop. Systolic murmur left sternal border and the apex there is no rub. ABDOMEN: Soft There is no definite hepatosplenomegaly. There is no ascites present. There is a reducible right inguinal hernia present there is no tender areas masses. EXTREMITIES: Femorals are diminished. There is no femoral bruits. Leg pulses are diminished. There is trace pedal edema bilaterally. There is no DVT or cellulitis. There is no calf tenderness. There is no cyanosis or clubbing. PLASTIC SHAPER: The patient is conscious awake alert oriented x3 with no focal deficits. PSYCHIATRIC the patient judgment insight are intact her affect is normal. Patient's 24-hour intake is 1382, 24-hour output is 2325 mL. IV LEXISCAN Cardiolite stress test: This shows area of infarction in the left ventricle apex of the small distribution, and minimal reversible ischemia in the setting of scar in the inferior wall. The LV is dilated in both the rest and stress images with severely depressed LV ejection fraction. This is consistent with a mixture of ischemic and dilated cardiomyopathy. Labs- All tests 24 hr 01/31/20 01/31/20 01/31/20 11:15 11:15 11:15 WBC RBC Hgb Hct MCV MCH MCHC RDW Plt Count Sodium Potassium Chloride Carbon Dioxide Anion Gap BUN Creatinine Est GFR ( Amer) Est GFR (MDRD) Non-Af Glucose Calcium Fluid Glucose 140 Fluid Albumin 0.5 Fluid LDH 69 02/01/20 02/01/20 05:58 05:58 WBC 9.6 RBC 3.20 L Hgb 8.2 L Hct 24.8 L MCV 78 L MCH 25.5 L MCHC 32.9 RDW 18.6 H Plt Count 132 L Sodium 133.9 L Potassium 3.8 Chloride 95 L Carbon Dioxide 37 H Anion Gap 2 L BUN 31 H Creatinine 0.70 Est GFR ( Amer) > 60 Est GFR (MDRD) Non-Af > 60 Glucose 101 Calcium 8.2 L Fluid Glucose Fluid Albumin Fluid LDH Chest X-Ray 01/24/20 03:27 IMPRESSION: Cardiomegaly. Low lung volumes with mild interstitial prominence likely reflecting interstitial edema. Tiny effusions and/or pleural thickening copyright 2011 [employer]- All Rights Reserved Chest X-Ray 01/24/20 06:43 IMPRESSION: No pneumothorax following right IJ central line placement. Chest X-Ray 01/30/20 00:00 IMPRESSION: STABLE APPEARANCE OF THE CHEST. Scrotum Ultrasound 01/30/20 00:00 IMPRESSION: 1. Small bilateral bowel containing inguinal hernias. 2. Small bilateral hydroceles. Additional more focal collection within the right inguinal canal measuring approximately 8.5 x 7.1 x 6.6 cm, possibly loculated right-sided hydrocele. This has increased in size compared to prior CT and ultrasound. Diffuse bilateral scrotal wall thickening. Recommend correlation with physical exam. 3. Grossly unremarkable testicular and epididymal parenchymal bilaterally. Paracentesis Ultrasound 01/31/20 00:00 IMPRESSION: SUCCESSFUL ULTRASOUND GUIDED PARACENTESIS. KUB X-Ray 02/01/20 00:00 IMPRESSION: Severe constipation. This has progressed when compared to November. SPECT Scan-Cardiac NM 02/01/20 08:00 IMPRESSION: No perfusion defects are identified. Dilated left ventricle with global hypokinesia. Markedly reduced ejection fraction measuring 22%. IMPRESSION/RECOMMENDATION: 1. Hypotension: Most likely secondary to pump failure.. This is resolved. The patient is off dopamine and his blood pressure is stable. He is on midodrine. 2. Acute on chronic systolic heart failure: Although the chest x-ray does not show CHF patient is JVD is elevated consistent with chronic heart failure with acute exacerbation. We will stop the patient's IV Lasix and change to IV Bumex. 3. COPD with exacerbation: Continue bronchodilators and consider steroids and antibiotics. 4. Coronary artery disease: No anginal symptoms. History of prior PR 5. Dilated cardiomyopathy with severely reduced LV ejection fraction. Continue beta-sarina. We will stop the patient's lisinopril in anticipation of starting the patient on Entresto. Cardiovascular status is stable and hence will schedule the patient for IV Lexiscan Cardiolite stress test. This will be done tomorrow. Later would be recommended for referral for AICD placement. This will be done once the patient's cardiac and pulmonary status stabilizes. 6. Alcoholic cirrhosis by history: The patient had 3 L of acetic fluid removed by paracentesis today and feels much more comfortable. 7. History of hypertension: At present blood pressure low 8. History of tobacco abuse disorder: Patient counseled to refrain from smoking. 9. Right inguinal hernia: At present no evidence of obstruction or incarceration. 10. Chronic pain syndrome: Patient on gabapentin. 11. Hyperlipidemia: Continue statins. 12. [R 94.30] abnormal cardiovascular function study [abnormal stress test] with evidence of prior PR, with only minimal reversible ischemia, and findings consistent with a mixture of ischemic and dilated cardiomyopathy. Press test has been discussed with the patient in detail. Recommend AICD placement. The patient states he wants to get it done in [facility]. He will give me the telephone number to contact them. The patient not interested in a LifeVest. Medications reviewed. Medical regimen and management plan discussed with attending provider on the case. Medical decision making is of high complexity. 50 minutes spent on this patient with more than 50% time spent in direct patient care. Will follow
[2020-02-02] MEDS: OXYCODONE HCL IR 5 MG TABLET PO PRN ×5 (04:03→20:04)
[2020-02-02] MEDS: MAGNESIUM HYDROXIDE SUSP 30 ML UDCUP PO PRN (05:27)
[2020-02-02] MEDS: GABAPENTIN 300 MG CAPSULE PO SCH ×3 (05:27→21:52)
[2020-02-02] MEDS: BUMETANIDE INJ/PF 1 MG/4 ML SDV IV SCH ×2 (05:27→17:09)
[2020-02-02 05:55] LABS: HEMATOCRIT 25.6 % (37.9-51.0); HEMOGLOBIN 8.5 g/dL (13.5-17.0); MEAN CORPUSCULAR HEMOGLOBIN 25.6 pg (27.0-33.4); MEAN CORPUSCULAR VOLUME 78 fl (80-97); PLATELET COUNT 135 10^3/uL (150-450); RED CELL DISTRIBUTION WIDTH 17.9 % (11.5-14.0); WHITE BLOOD COUNT 10.1 10^3/uL (4.0-10.5)
[2020-02-02 06:08] LABS: BLOOD UREA NITROGEN 29 mg/dL (7-20); CALCIUM 8.3 mg/dL (8.4-10.2); CARBON DIOXIDE 37 mmol/L (22-30); CHLORIDE 93 mmol/L (98-107); GLUCOSE 119 mg/dL (75-110); POTASSIUM 4.1 mmol/L (3.6-5.0)
[2020-02-02 06:18] LABS: ANION GAP 3 (5-19)
[2020-02-02 06:36] LABS: HEPATITS B SURFACE ANTIGEN Negative (Negative)
[2020-02-02 07:09] LABS: HEPATITIS C VIRUS ANTIBODY >11.0 s/co ratio (0.0-0.9)
[2020-02-02] MEDS: PREDNISONE 20 MG TABLET PO SCH (10:04)
[2020-02-02] MEDS: GUAIFENESIN 600 MG TABLET.SA PO SCH ×2 (10:04→21:52)
[2020-02-02] MEDS: ROFLUMILAST 500 MCG TABLET PO SCH (10:04)
[2020-02-02] MEDS: DOCUSATE SODIUM 100 MG CAPSULE PO SCH ×2 (10:04→17:07)
[2020-02-02] MEDS: FOLIC ACID 1 MG TABLET PO SCH (10:04)
[2020-02-02] MEDS: CEFTRIAXONE 2 GM/D5W RTU 2 GM/50 ML RTUPB IV SCH (10:05)
[2020-02-02] MEDS: METOPROLOL SUCCINATE 25 MG TAB.SR.24H PO SCH ×2 (10:05→21:53)
[2020-02-02] MEDS: ENOXAPARIN SODIUM INJ 40 MG/0.4 ML DISP.SYRIN SUBCUT SCH (10:05)
[2020-02-02] MEDS: SPIRONOLACTONE 25 MG TABLET PO SCH (10:05)
[2020-02-02] MEDS: DIGOXIN INJ 0.5 MG/2 ML AMPULE IV SCH (10:05)
[2020-02-02] MEDS: FLUTICASONE/VILANTEROL 200-25 MCG/DOSE IH SCH (10:05)
[2020-02-02] MEDS: MIDODRINE HCL 5 MG TABLET PO SCH ×3 (10:05→17:09)
[2020-02-02] MEDS: POLYETHYLENE GLYCOL 3350 POWDER 17 GM/1 PACKET PO SCH (10:06)
[2020-02-02] MEDS: IPRATROPIUM/ALBUTEROL 0.5-2.5 MG/3 ML AMPUL NEB PRN (10:37)
[2020-02-02] MEDS ORDERED: MAGNESIUM CITRATE 296 ML BOTTLE PO ONE (11:30)
--- NOTE | 2020-02-02 14:35 | Progress Note ---
Provider Note Provider Note: CARDIOLOGY PROGRESS NOTE by Dr. Lorenza Sandoval on 02/02/2020. SUBJECTIVE: The patient denies any chest pain or discomfort. There is no recurrent reaccumulation of his ascites. There is no shortness of breath. There is no PND orthopnea. There is no cough or wheezing. There is no arrhythmias seen on the monitor. There is no TIA CVA symptoms. PHYSICAL EXAMINATION: The patient is a frail build and appears to be chronically ill and malnourished. But no in no acute distress. Selected Entries 02/02/20 11:52 Temperature 97.7 F Temperature Oral Source Pulse Rate 76 Respiratory 20 Rate Blood Pressure 128/67 H Blood Pressure 87 Mean BP Location Right Arm BP Position Supine O2 Sat by Pulse 100 Oximetry Oxygen Flow 3.00 Rate Oxygen Delivery Nasal Cannula Method HEAD: Is atraumatic normocephalic. EYES: Pupils are equal round regular reactive to light accommodation. Extraocular movements are normal. There is no conjunctival pallor. There is no scleral icterus. EARS: Tympanic membranes are intact. External auditory canals are clear. NOSE: There is no deviated nasal septum. There is no inflammation nasal mucous membrane. MOUTH: Mucous membranes of the mouth are moist. Tongue is moist there is no ulcers. There is no bleeding from the gums THROAT: There is no redness of the oropharynx. There is no exudates. SKIN: There is no skin rashes. There is no skin lesions. There is no petechia or ecchymosis. NECK: Is supple there is mild JVD present. Carotids are equal there is no bruits. There is no lymphadenopathy. There is no goiter. There is no accessory muscle respiration use. Trachea central. LUNGS: There is diminished air entry prolonged expiration. Lungs are clear bilaterally. There is no rhonchi and today there is no wheezing. There is no rales of CHF. On percussion there is hyperresonance. HEART: S1-S2 is heard. There is no S3 gallop. There is no S4 gallop. Systolic murmur left sternal border and the apex there is no rub. ABDOMEN: Soft There is no definite hepatosplenomegaly. There is no ascites present. There is a reducible right inguinal hernia present there is no tender areas masses. EXTREMITIES: Femorals are diminished. There is no femoral bruits. Leg pulses are diminished. There is trace pedal edema bilaterally. There is no DVT or cellulitis. There is no calf tenderness. There is no cyanosis or clubbing. MUSIC REHABILITATION THERAPIST: The patient is conscious awake alert oriented x3 with no focal deficits. PSYCHIATRIC the patient judgment insight are intact her affect is normal. Patient's 24-hour intake is 1232, 24-hour output is 2700 mL Labs- All tests 24 hr 02/01/20 02/02/20 02/02/20 05:58 05:00 05:00 WBC 10.1 RBC 3.30 L Hgb 8.5 L Hct 25.6 L MCV 78 L MCH 25.6 L MCHC 33.0 RDW 17.9 H Plt Count 135 L Sodium 133.5 L Potassium 4.1 Chloride 93 L Carbon Dioxide 37 H Anion Gap 3 L BUN 29 H Creatinine 0.67 Est GFR ( Amer) > 60 Est GFR (MDRD) Non-Af > 60 Glucose 119 H Calcium 8.3 L Hepatitis A IgM Ab Negative Hep Bs Antigen Negative Hep B Core IgM Ab Negative Hepatitis C Antibody >11.0 H Chest X-Ray 01/24/20 03:27 IMPRESSION: Cardiomegaly. Low lung volumes with mild interstitial prominence likely reflecting interstitial edema. Tiny effusions and/or pleural thickening copyright 2011 [employer]- All Rights Reserved Chest X-Ray 01/24/20 06:43 IMPRESSION: No pneumothorax following right IJ central line placement. Chest X-Ray 01/30/20 00:00 IMPRESSION: STABLE APPEARANCE OF THE CHEST. Scrotum Ultrasound 01/30/20 00:00 IMPRESSION: 1. Small bilateral bowel containing inguinal hernias. 2. Small bilateral hydroceles. Additional more focal collection within the right inguinal canal measuring approximately 8.5 x 7.1 x 6.6 cm, possibly loculated right-sided hydrocele. This has increased in size compared to prior CT and ultrasound. Diffuse bilateral scrotal wall thickening. Recommend correlation with physical exam. 3. Grossly unremarkable testicular and epididymal parenchymal bilaterally. Paracentesis Ultrasound 01/31/20 00:00 IMPRESSION: SUCCESSFUL ULTRASOUND GUIDED PARACENTESIS. KUB X-Ray 02/01/20 00:00 IMPRESSION: Severe constipation. This has progressed when compared to November. SPECT Scan-Cardiac NM 02/01/20 08:00 IMPRESSION: No perfusion defects are identified. Dilated left ventricle with global hypokinesia. Markedly reduced ejection fraction measuring 22%. IMPRESSION/RECOMMENDATION: 1. Hypotension: Most likely secondary to pump failure.. This is resolved. The patient is off dopamine and his blood pressure is stable. He is on midodrine. 2. Acute on chronic systolic heart failure: Although the chest x-ray does not show CHF patient is JVD is elevated consistent with chronic heart failure with acute exacerbation. We will stop the patient's IV Lasix and change to IV Bumex. 3. COPD with exacerbation: Continue bronchodilators and consider steroids and antibiotics. 4. Coronary artery disease: No anginal symptoms. History of prior NV 5. Dilated cardiomyopathy with severely reduced LV ejection fraction. Continue beta-sarina. We will stop the patient's lisinopril in anticipation of starting the patient on Entresto. Cardiovascular status is stable and hence will schedule the patient for IV Lexiscan Cardiolite stress test. This will be done tomorrow. Later would be recommended for referral for AICD placement. This will be done once the patient's cardiac and pulmonary status stabilizes. 6. Alcoholic cirrhosis by history: The patient had 3 L of acetic fluid removed by paracentesis and no reaccumulation of acetic fluid.. 7. History of hypertension: At present blood pressure low 8. History of tobacco abuse disorder: Patient counseled to refrain from smoking. 9. Right inguinal hernia: At present no evidence of obstruction or incarceration. 10. Chronic pain syndrome: Patient on gabapentin. 11. Hyperlipidemia: Continue statins. 12. [R 94.30] abnormal cardiovascular function study [abnormal stress test] with evidence of prior NV, with only minimal reversible ischemia, and findings consistent with a mixture of ischemic and dilated cardiomyopathy. 13. Positive hepatitis C antibody: Most likely patient has history of hepatitis C. 1. High risk for sudden . This is in view of the fact that in spite of the lack of arrhythmia or history of syncope. The patient's LV ejection fraction severely reduced. Also the patient is very noncompliant with diet medications and follow-up doctors appointments. Also the patient has significant COPD and the patient continues to smoke. Hence there is every chance that the patient is pulmonary decompensation could cause ischemia which could trigger trigger a fatal ventricular arrhythmia. Also the patient stress test shows a mixture of scar in minimal ischemia in the inferior wall which could be a nidus for origin of ventricular arrhythmias. Hence a LifeVest has been also ordered. This has been discussed with the patient. This will be in the interim until the [facility] I have spoken to the nurse in [place] [facility] the [facility]. And she has been apprised of the patient's condition and that she that the patient needs a follow-up for referral for an AICD placement. Medications reviewed. Medical regimen management plan discussed with attending physician. The patient's case also discussed with the nurse and the [place] [facility]. Medical decision making is of high complexity. 50 minutes spent on this patient with more than 50% of time spent in direct patient care. We will follow with you. Anticipate discharge shortly.
[2020-02-02] MEDS ORDERED: MINERAL OIL ENEMA 133 ML PR PRN (16:06)
--- NOTE | 2020-02-02 16:13 | PDOC PROGRESS REPORT ---
Subjective Progress Note for:: 02/02/20 Subjective:: Patient was seen on morning rounds. He states he is feeling well other than constipation; no relief yesterday following enema x2. Reports last bm >1 week ago and is uncertain as to if he is passing flatus. Requests additional medication for constipation today. Otherwise, he denies fever, chest pain, palpitations, nausea and vomiting. No other questions or concerns. No concerns per nursing at this time. Reason For Visit: CHF EXCAERBATION Physical Exam Vital Signs: Temp Pulse Resp BP Pulse Ox 97.7 F 78 20 128/67 H 100 02/02/20 11:52 02/02/20 14:00 02/02/20 11:52 02/02/20 11:52 02/02/20 11:52 Intake & Output 02/01/20 02/02/20 02/03/20 06:59 06:59 06:59 Intake Total 1382 1232 50 Output Total 2325 2700 Balance -943 -1468 50 Weight 80.9 kg 81.1 kg General appearance: PRESENT: no acute distress, cooperative, well-developed, well-nourished Head exam: PRESENT: atraumatic, normocephalic Eye exam: PRESENT: conjunctiva pink, EOMI, PERRLA. ABSENT: scleral icterus Mouth exam: PRESENT: moist, tongue midline Respiratory exam: PRESENT: clear to auscultation rossy, symmetrical, unlabored, other - Baseline Oxygen requirement. ABSENT: rales, rhonchi, wheezes Cardiovascular exam: PRESENT: RRR, +S1, +S2. ABSENT: diastolic murmur, rubs, systolic murmur Vascular exam: PRESENT: normal capillary refill GI/Abdominal exam: PRESENT: distended, firm, normal bowel sounds. ABSENT: guarding, mass, organolmegaly, rebound, tenderness Rectal exam: PRESENT: deferred Extremities exam: PRESENT: full ROM, +1 edema - BLE. ABSENT: calf tenderness, clubbing, pedal edema Musculoskeletal exam: PRESENT: ambulatory - From a walker Neurological exam: PRESENT: alert, awake, oriented to person, oriented to place, oriented to time, oriented to situation, CN II-XII grossly intact. ABSENT: motor sensory deficit Psychiatric exam: PRESENT: appropriate affect, normal mood. ABSENT: homicidal ideation, suicidal ideation Skin exam: PRESENT: dry, intact, warm. ABSENT: cyanosis, rash Results Laboratory Results: 02/02/20 05:00 02/02/20 05:00 02/02/20 02/02/20 05:00 05:00 WBC 10.1 RBC 3.30 L Hgb 8.5 L Hct 25.6 L MCV 78 L MCH 25.6 L MCHC 33.0 RDW 17.9 H Plt Count 135 L Sodium 133.5 L Potassium 4.1 Chloride 93 L Carbon Dioxide 37 H Anion Gap 3 L BUN 29 H Creatinine 0.67 Est GFR ( Amer) > 60 Glucose 119 H Calcium 8.3 L 01/30/20 10:45 Sputum Gram Stain - Final 01/24/20 01/27/20 01/30/20 06:58 06:10 10:45 Troponin I 0.031 NT-Pro-B Natriuret Pep 07583 H 32310 H 6210 H Impressions: Chest X-Ray 01/30/20 00:00 IMPRESSION: STABLE APPEARANCE OF THE CHEST. Scrotum Ultrasound 01/30/20 00:00 IMPRESSION: 1. Small bilateral bowel containing inguinal hernias. 2. Small bilateral hydroceles. Additional more focal collection within the right inguinal canal measuring approximately 8.5 x 7.1 x 6.6 cm, possibly loculated right-sided hydrocele. This has increased in size compared to prior CT and ultrasound. Diffuse bilateral scrotal wall thickening. Recommend correlation with physical exam. 3. Grossly unremarkable testicular and epididymal parenchymal bilaterally. Paracentesis Ultrasound 01/31/20 00:00 IMPRESSION: SUCCESSFUL ULTRASOUND GUIDED PARACENTESIS. KUB X-Ray 02/01/20 00:00 IMPRESSION: Severe constipation. This has progressed when compared to November. SPECT Scan-Cardiac NM 02/01/20 08:00 IMPRESSION: No perfusion defects are identified. Dilated left ventricle with global hypokinesia. Markedly reduced ejection fraction measuring 22%. Assessment and Plan - Diagnosis (1) CHF (congestive heart failure) Qualifiers: Heart failure type: combined systolic and diastolic Heart failure chronicity: acute on chronic Qualified Code(s): I50.43 - Acute on chronic combined systolic (congestive) and diastolic (congestive) heart failure Is this a current diagnosis for this admission?: Yes Plan: Improved. He is admitted to [facility] and monitored on continuous cardiac telemetry. Cardiology is consulted; primary management per Dr. Comer's expertise. No longer on dopamine drip. Currently on Midodrine 10 mg 3 times daily for blood pressure support, metoprolol, spironolactone, and IV Bumex. Daily statin. Cardiac diet Daily weights, strict I&O's. Dr. Comer has ordered LifeVest. Ready for discharge from cardiology perspective once received. (2) Acute and chronic respiratory failure Qualifiers: Respiratory failure complication: hypoxia Qualified Code(s): J96.21 - Acute and chronic respiratory failure with hypoxia Is this a current diagnosis for this admission?: Yes Plan: Acute exacerbation is resolved. Acute worsening respiratory failure is secondary to CHF exacerbation. Return to baseline oxygen requirement. (3) Shortness of breath Is this a current diagnosis for this admission?: Yes Plan: Resolved. Secondary to underlying CHF and COPD and cirrhosis. Patient is on 3 L of oxygen regularly; currently on baseline supplemental oxygen. (4) Ascites Is this a current diagnosis for this admission?: Yes Plan: s/p paracentesis with removal of 3 L fluid Initial laboratory evaluation unremarkable; WBCs 528, RBCs 341. SAAG >1.1 g/dl; likely some portal hypertension. Gram stain and culture have No growth at 2 days Continue spironolactone and IV Bumex as above. (5) Cirrhosis of liver Qualifiers: Hepatic cirrhosis type: alcoholic cirrhosis Is this a current diagnosis for this admission?: Yes Plan: History of cirrhosis of the liver complicating his fluid retention. Likely related to history of heavy alcohol use. Status post paracentesis with 3 L removed. Hep C positive Will require outpatient GI follow up for treatment of HVC (6) Hernia, inguinal, right Is this a current diagnosis for this admission?: Yes Plan: Scrotal sonogram revealed small bilateral bowel containing inguinal hernias. Small bilateral hydroceles; R possible loculated. (7) Constipation Qualifiers: Constipation type: unspecified constipation type Qualified Code(s): K59.00 - Constipation, unspecified Is this a current diagnosis for this admission?: Yes Plan: KUB shows Severe Constipation Unrelieved by soap suds enema x2 yesterday Unrelieved by neck citrate today. Escalate bowel protocol to include twice daily Colace, MiraLAX daily, lactulose 20 g every 6, and twice daily fleets enema as needed. Encourage ambulation. - Time Time Spent with patient: 35 or more minutes Medications reviewed and adjusted accordingly: Yes Anticipated discharge: Home with Homehealth Within: within 24 hours
[2020-02-02] MEDS ORDERED: MINERAL OIL ENEMA 133 ML PR ONE (17:00)
[2020-02-02] MEDS: LACTULOSE SYRUP 20 GM/30 ML UDCUP PO SCH (17:09)
[2020-02-02] MEDS: SIMVASTATIN 40 MG TABLET PO SCH (21:52)
[2020-02-03] MEDS: OXYCODONE HCL IR 5 MG TABLET PO PRN ×4 (00:34→22:17)
[2020-02-03] MEDS: LACTULOSE SYRUP 20 GM/30 ML UDCUP PO SCH ×4 (00:34→17:47)
[2020-02-03] MEDS: GABAPENTIN 300 MG CAPSULE PO SCH ×3 (05:14→21:28)
[2020-02-03] MEDS: BUMETANIDE INJ/PF 1 MG/4 ML SDV IV SCH ×2 (05:15→17:48)
[2020-02-03] MEDS: IPRATROPIUM/ALBUTEROL 0.5-2.5 MG/3 ML AMPUL NEB PRN (05:28)
[2020-02-03] MEDS: MIDODRINE HCL 5 MG TABLET PO SCH ×3 (10:06→17:47)
[2020-02-03] MEDS: DIGOXIN INJ 0.5 MG/2 ML AMPULE IV SCH (10:07)
[2020-02-03] MEDS: GUAIFENESIN 600 MG TABLET.SA PO SCH ×2 (10:07→21:30)
[2020-02-03] MEDS: SPIRONOLACTONE 25 MG TABLET PO SCH (10:07)
[2020-02-03] MEDS: DOCUSATE SODIUM 100 MG CAPSULE PO SCH ×2 (10:07→17:47)
[2020-02-03] MEDS: METOPROLOL SUCCINATE 25 MG TAB.SR.24H PO SCH ×2 (10:07→22:38)
[2020-02-03] MEDS: MAGNESIUM HYDROXIDE SUSP 30 ML UDCUP PO PRN (10:07)
[2020-02-03] MEDS: ROFLUMILAST 500 MCG TABLET PO SCH (10:07)
[2020-02-03] MEDS: PREDNISONE 20 MG TABLET PO SCH (10:07)
[2020-02-03] MEDS: FOLIC ACID 1 MG TABLET PO SCH (10:07)
[2020-02-03] MEDS: POLYETHYLENE GLYCOL 3350 POWDER 17 GM/1 PACKET PO SCH (10:08)
[2020-02-03] MEDS: CEFTRIAXONE 2 GM/D5W RTU 2 GM/50 ML RTUPB IV SCH (10:08)
[2020-02-03] MEDS: FLUTICASONE/VILANTEROL 200-25 MCG/DOSE IH SCH (10:13)
[2020-02-03] MEDS: ENOXAPARIN SODIUM INJ 40 MG/0.4 ML DISP.SYRIN SUBCUT SCH (10:13)
--- NOTE | 2020-02-03 13:41 | Progress Note ---
Provider Note Provider Note: Cardiology PROGRESS NOTE by Dr. Lorenza Sandoval on 02/03/2020. OBJECTIVE: The patient denies any chest pain or discomfort. There is no shortness of breath. There is no PND orthopnea. The patient's only concern is that the patient is constipated. There is no arrhythmias seen on the monitor. There is no TIA CVA symptoms. The patient is given been given the required education and instructions about the use of LifeVest. He has a LifeVest on. PHYSICAL EXAMINATION: The patient is a frail build and appears to be chronically ill and malnourished. But in no acute distress. Selected Entries 02/03/20 11:19 Temperature 98.1 F Temperature Oral Source Pulse Rate 78 Respiratory 15 Rate Blood Pressure 107/53 L Blood Pressure 71 Mean BP Location Right Arm BP Position Supine O2 Sat by Pulse 93 Oximetry Oxygen Flow 2.50 Rate Oxygen Delivery Nasal Cannula Method HEAD: Is atraumatic normocephalic. EYES: Pupils are equal round regular reactive to light accommodation. Extraocular movements are normal. There is no conjunctival pallor. There is no scleral icterus. EARS: Tympanic membranes are intact. External auditory canals are clear. NOSE: There is no deviated nasal septum. There is no inflammation nasal mucous membrane. MOUTH: Mucous membran es of the mouth are moist. Tongue is moist there is no ulcers. There is no bleeding from the gums THROAT: There is no redness of the oropharynx. There is no exudates. SKIN: There is no skin rashes. There is no skin lesions. There is no petechia or ecchymosis. NECK: Is supple there is mild JVD present. Carotids are equal there is no bruits. There is no lymphadenopathy. There is no goiter. There is no accessory muscle respiration use. Trachea central. LUNGS: There is diminished air entry prolonged expiration. Lungs are clear bilaterally. There is no rhonchi and today there is no wheezing. There is no rales of CHF. On percussion there is hyperresonance. HEART: S1-S2 is heard. There is no S3 gallop. There is no S4 gallop. Systolic murmur left sternal border and the apex there is no rub. ABDOMEN: Soft There is no definite hepatosplenomegaly. There is no ascites present. There is a reducible right inguinal hernia present there is no tender areas masses. EXTREMITIES: Femorals are diminished. There is no femoral bruits. Leg pulses are diminished. There is trace pedal edema bilaterally. There is no DVT or cellulitis. There is no calf tenderness. There is no cyanosis or clubbing. LEGAL JOB TITLES: The patient is conscious awake alert oriented x3 with no focal deficits. PSYCHIATRIC the patient judgment insight are intact her affect is normal. Patient's 24-hour intake is 764 24-hour output is 1975 mL Chest X-Ray 01/24/20 03:27 IMPRESSION: Cardiomegaly. Low lung volumes with mild interstitial prominence likely reflecting interstitial edema. Tiny effusions and/or pleural thickening copyright 2010 [employer]- All Rights Reserved Chest X-Ray 01/24/20 06:43 IMPRESSION: No pneumothorax following right IJ central line placement. Chest X-Ray 01/30/20 00:00 IMPRESSION: STABLE APPEARANCE OF THE CHEST. Scrotum Ultrasound 01/30/20 00:00 IMPRESSION: 1. Small bilateral bowel containing inguinal hernias. 2. Small bilateral hydroceles. Additional more focal collection within the right inguinal canal measuring approximately 8.5 x 7.1 x 6.6 cm, possibly loculated right-sided hydrocele. This has increased in size compared to prior CT and ultrasound. Diffuse bilateral scrotal wall thickening. Recommend c orrelation with physical exam. 3. Grossly unremarkable testicular and epididymal parenchymal bilaterally. Paracentesis Ultrasound 01/31/20 00:00 IMPRESSION: SUCCESSFUL ULTRASOUND GUIDED PARACENTESIS. KUB X-Ray 02/01/20 00:00 IMPRESSION: Severe constipation. This has progressed when compared to November. IMPRESSION/RECOMMENDATION: 1. Hypotension: Most likely secondary to pump failure.. This is resolved. he is on midodrine 2. Acute on chronic systolic heart failure: Although the chest x-ray does not show CHF patient is JVD is elevated consistent with chronic heart failure with acute exacerbation. We will stop the patient's IV Lasix and change to IV Bumex. 3. COPD with exacerbation: Continue bronchodilators and consider steroids and antibiotics. 4. Coronary artery disease: No anginal symptoms. History of prior [place] 5. Dilated cardiomyopathy with severely reduced LV ejection fraction. Continue beta-sarina. We will stop the patient's lisinopril in anticipation of starting the patient on Entresto. Cardiovascular status is stable and hence will schedule the patient for IV Lexiscan Cardiolite stress test. This will be done tomorrow. Later would be recommended for referral for AICD placement. This will be done once the patient's cardiac and pulmonary status stabilizes. 6. Alcoholic cirrhosis by history: The patient had 3 L of acetic fluid removed by paracentesis and no reaccumulation of acetic fluid.. 7. History of hypertension: At present blood pressure low 8. History of tobacco abuse disorder: Patient counseled to refrain from smoking. 9. Right inguinal hernia: At present no evidence of obstruction or incarceration. 10. Chronic pain syndrome: Patient on gabapentin. 11. Hyperlipidemia: Continue statins. 12. [R 94.30] abnormal cardiovascular function study [abnormal stress test] with evidence of prior [place], with only minimal reversible ischemia, and findings consistent with a mixture of ischemic and dilated cardiomyopathy. 13. Positive hepatitis C antibody: Most likely patient has history of hepatitis C. 1. High risk for sudden . Patient has a LifeVest on and he has been educated about the usage of the LifeVest. Required instructions have been given to him. Medications reviewed. Medications, medication regimen and management plan discussed with attending provider on the case. Medical decision making is of moderate complexity. 40-minute spent with patient with more than 50% of time spent in direct patient care. Cardiac status stable. Okay to discharge the patient. Patient can follow-up with me as an outpatient. He also needs to follow-up with the [facility] for the pursuance of AICD placement.
[2020-02-03] MEDS: BISACODYL 5 MG TABEC PO PRN (14:55)
[2020-02-03] MEDS ORDERED: MINERAL OIL ENEMA 133 ML PR ONE (15:00)
[2020-02-03] MEDS ORDERED: GLYCERIN 99.5% (ANHYDROUS) 177 ML PR ONE (15:00)
--- NOTE | 2020-02-03 17:45 | PDOC PROGRESS REPORT ---
Subjective Progress Note for:: 02/03/20 Subjective:: Patient was seen on afternoon rounds. He states he is feeling well other than constipation; minimal relief following multiple enemas and increased bowel regimen. He has passed multiple small, hard, stools. Otherwise, he denies fever, chest pain, palpitations, nausea and vomiting. No other questions or concerns. No concerns per nursing at this time. Reason For Visit: CHF EXCAERBATION Physical Exam Vital Signs: Temp Pulse Resp BP Pulse Ox 98.1 F 90 15 107/53 L 93 02/03/20 11:19 02/03/20 14:00 02/03/20 11:19 02/03/20 11:19 02/03/20 11:19 Intake & Output 02/02/20 02/03/20 02/04/20 06:59 06:59 06:59 Intake Total 1232 764 390 Output Total 2700 1742 800 Balance -1468 -1211 -410 Weight 81.1 kg 80.1 kg General appearance: PRESENT: no acute distress, cooperative, well-developed, well-nourished Head exam: PRESENT: atraumatic, normocephalic Eye exam: PRESENT: conjunctiva pink, EOMI, PERRLA. ABSENT: scleral icterus Mouth exam: PRESENT: moist, tongue midline Respiratory exam: PRESENT: clear to auscultation rossy, symmetrical, unlabored, other - Baseline oxygen requirement. ABSENT: rales, rhonchi, wheezes Cardiovascular exam: PRESENT: RRR. ABSENT: diastolic murmur, rubs, systolic murmur Vascular exam: PRESENT: normal capillary refill GI/Abdominal exam: PRESENT: distended, firm, hypoactive bowel sounds, soft. ABSENT: guarding, mass, organolmegaly, rebound, tenderness Rectal exam: PRESENT: deferred Gentrourinary exam: PRESENT: indwelling catheter Extremities exam: PRESENT: full ROM, +1 edema - BLE. ABSENT: calf tenderness, clubbing, pedal edema Neurological exam: PRESENT: alert, awake, oriented to person, oriented to place, oriented to time, oriented to situation, CN II-XII grossly intact. ABSENT: motor sensory deficit Psychiatric exam: PRESENT: agitated, appropriate affect, normal mood. ABSENT: homicidal ideation, suicidal ideation Skin exam: PRESENT: dry, intact, warm. ABSENT: cyanosis, rash Results Laboratory Results: 02/02/20 05:00 02/02/20 05:00 01/30/20 10:45 Sputum Gram Stain - Final 01/30/20 10:45 Sputum Sputum Culture - Final Escherichia Coli Staphylococcus Aureus Normal Sharita Absent 01/24/20 01/27/20 01/30/20 06:58 06:10 10:45 Troponin I 0.031 NT-Pro-B Natriuret Pep 39544 H 04980 H 6210 H Impressions: Chest X-Ray 01/30/20 00:00 IMPRESSION: STABLE APPEARANCE OF THE CHEST. Scrotum Ultrasound 01/30/20 00:00 IMPRESSION: 1. Small bilateral bowel containing inguinal hernias. 2. Small bilateral hydroceles. Additional more focal collection within the right inguinal canal measuring approximately 8.5 x 7.1 x 6.6 cm, possibly locu lated right-sided hydrocele. This has increased in size compared to prior CT and ultrasound. Diffuse bilateral scrotal wall thickening. Recommend correlation with physical exam. 3. Grossly unremarkable testicular and epididymal parenchymal bilaterally. Paracentesis Ultrasound 01/31/20 00:00 IMPRESSION: SUCCESSFUL ULTRASOUND GUIDED PARACENTESIS. KUB X-Ray 02/01/20 00:00 IMPRESSION: Severe constipation. This has progressed when compared to November. SPECT Scan-Cardiac NM 02/01/20 08:00 IMPRESSION: No perfusion defects are identified. Dilated left ventricle with global hypokinesia. Markedly reduced ejection fraction measuring 22%. Assessment and Plan - Diagnosis (1) CHF (congestive heart failure) Qualifiers: Heart failure type: combined systolic and diastolic Heart failure chronicity: acute on chronic Qualified Code(s): I50.43 - Acute on chronic comb ined systolic (congestive) and diastolic (congestive) heart failure Is this a current diagnosis for this admission?: Yes Plan: Acute exacerbation has resolved. He is admitted to [facility] and monitored on continuous cardiac telemetry. Cardiology is consulted; primary management per Dr. Comer's expertise. No longer on dopamine drip. Currently on Midodrine 10 mg 3 times daily for blood pressure support, metoprolol, spironolactone, and IV Bumex. Daily statin. Cardiac diet Daily weights, strict I&O's. Has received LifeVest. Ready for discharge from cardiology perspective. (2) Acute and chronic respiratory failure Qualifiers: Respiratory failure complication: hypoxia Qualified Code(s): J96.21 - Acute and chronic respiratory failure with hypoxia Is this a current diagnosis for this admission?: Yes Plan: Acute exacerbation is resolved. Acute worsening respiratory failure is secondary to CHF exacerbation. Return to baseline oxygen requirement. (3) Shortness of breath Is this a current diagnosis for this admission?: Yes Plan: Resolved. Secondary to underlying CHF and COPD and cirrhosis. Patient is on 3 L of oxygen regularly; currently on baseline supplemental oxygen. (4) Ascites Is this a current diagnosis for this admission?: Yes Plan: s/p paracentesis with removal of 3 L fluid Initial laboratory evaluation unremarkable; WBCs 528, RBCs 341. SAAG >1.1 g/dl; likely some portal hypertension. Gram stain and culture have No growth at 3 days Continue spironolactone and IV Bumex as above. (5) Cirrhosis of liver Qualifiers: Hepatic cirrhosis type: alcoholic cirrhosis Is this a current diagnosis for this admission?: Yes Plan: History of cirrhosis of the liver complicating his fluid retention. Likely related to history of heavy alcohol use. Status post paracentesis with 3 L removed. Hep C positive Will require outpatient GI follow up for treatment of HVC (6) Hernia, inguinal, right Is this a current diagnosis for this admission?: Yes Plan: Scrotal sonogram revealed small bilateral bowel containing inguinal hernias. Small bilateral hydroceles; R possible loculated. Likely related to ascites (7) Constipation Qualifiers: Constipation type: unspecified constipation type Qualified Code(s): K59.00 - Constipation, unspecified Is this a current diagnosis for this admission?: Yes Plan: KUB shows Severe Constipation Unrelieved by soap suds enema x2 yesterday Unrelieved by mag citrate today. Escalate bowel protocol to include twice daily Colace, MiraLAX daily, lactulose 20 g every 6, and twice daily fleets enema as needed. Encourage ambulation. Repeat KUB tomorrow. - Time Time Spent with patient: 25-34 minutes Medications reviewed and adjusted accordingly: Yes Anticipated discharge: Home with Homehealth
[2020-02-03] MEDS: SIMVASTATIN 40 MG TABLET PO SCH (21:29)
[2020-02-04] MEDS: IPRATROPIUM/ALBUTEROL 0.5-2.5 MG/3 ML AMPUL NEB PRN (00:17)
[2020-02-04] MEDS: LACTULOSE SYRUP 20 GM/30 ML UDCUP PO SCH ×4 (00:30→19:45)
[2020-02-04] MEDS: OXYCODONE HCL IR 5 MG TABLET PO PRN ×2 (03:50→19:49)
--- NOTE | 2020-02-04 08:48 | RADIOLOGY REPORT (SQ) ---
EXAM DESCRIPTION: KUB/ABDOMEN (SINGLE VIEW) IMAGES COMPLETED DATE/TIME: 02/04/2020 7:50 am REASON FOR STUDY: distention COMPARISON: Abdominal films 02/01/2020, 11/29/2019 10/21/2019 CT abdomen pelvis 11/27/2019 Abdominal ultrasound 11/27/2019 NUMBER OF VIEWS: One view. TECHNIQUE: Supine radiographic image of the abdomen acquired. LIMITATIONS: Upper abdomen, stomach partly cropped from the field of view FINDINGS: BOWEL GAS PATTERN: Large amount of stool in the rectosigmoid. Moderate persistent stool t hroughout the colon. No dilated small bowel loops. Upper abdomen/stomach partly cropped from the fi eld of view CALCIFICATIONS: No suspicious calcifications. SOFT TISSUES: No gross mass or suggestion of organomegaly. HARDWARE: None in the abdomen. BONES: No acute fracture. No worrisome bone lesions. OTHER: No other significant finding. IMPRESSION: Persistent fecal impaction. TECHNICAL DOCUMENTATION: JOB ID: [id number] 2010 [employer]- All Rights Reserved Reading location - IP/workstation name: [email or web address]
[2020-02-04] MEDS: GABAPENTIN 300 MG CAPSULE PO SCH ×3 (09:03→21:06)
[2020-02-04] MEDS: GUAIFENESIN 600 MG TABLET.SA PO SCH ×2 (10:33→21:06)
[2020-02-04] MEDS: FUROSEMIDE 40 MG TABLET PO SCH (10:33)
[2020-02-04] MEDS: SPIRONOLACTONE 25 MG TABLET PO SCH (10:33)
[2020-02-04] MEDS: ROFLUMILAST 500 MCG TABLET PO SCH (10:33)
[2020-02-04] MEDS: FOLIC ACID 1 MG TABLET PO SCH (10:33)
[2020-02-04] MEDS: PREDNISONE 20 MG TABLET PO SCH (10:33)
[2020-02-04] MEDS: METOPROLOL SUCCINATE 25 MG TAB.SR.24H PO SCH ×2 (10:33→22:19)
[2020-02-04] MEDS: MIDODRINE HCL 5 MG TABLET PO SCH ×3 (10:33→19:45)
[2020-02-04] MEDS: DIGOXIN INJ 0.5 MG/2 ML AMPULE IV SCH (10:34)
[2020-02-04] MEDS: CEFTRIAXONE 2 GM/D5W RTU 2 GM/50 ML RTUPB IV SCH (10:34)
[2020-02-04] MEDS: FLUTICASONE/VILANTEROL 200-25 MCG/DOSE IH SCH (10:35)
[2020-02-04] MEDS: ENOXAPARIN SODIUM INJ 40 MG/0.4 ML DISP.SYRIN SUBCUT SCH (17:40)
[2020-02-04] MEDS: DOCUSATE SODIUM 100 MG CAPSULE PO SCH ×2 (17:40→17:43)
[2020-02-04] MEDS: POLYETHYLENE GLYCOL 3350 POWDER 17 GM/1 PACKET PO SCH (17:41)
--- NOTE | 2020-02-04 18:37 | Progress Note ---
Provider Note Provider Note: CARDIOLOGY PROGRESS NOTE by Dr. Garcia has been on 02/04/2020. SUBJECTIVE: The patient was in distress yesterday due to severe obstipation. He had a good bowel movement after enema. At present the patient is much more comfortable and denies any abdominal pain. He has no chest pain or discomfort. There is no shortness of breath there is no PND orthopnea. There is no arrhythmias seen on the monitor. There is no TIA CVA symptoms. OBJECTIVE: The patient appears to be a frail build and chronically ill looking and malnourished. But in no acute distress. Selected Entries 02/04/20 02/04/20 08:39 10:00 Temperature 97.6 F Temperature Oral Source Pulse Rate 78 Heart Rate ( 84 Monitors) Respiratory 18 Rate Blood Pressure 96/45 L Blood Pressure 62 Mean BP Location Left Arm BP Position Supine O2 Sat by Pulse 99 Oximetry Oxygen Delivery Nasal Cannula Method ( includes room air) Oxygen Flow 4 Rate Oxygen Delivery Room Air Method HEAD: Is atraumatic normocephalic. EYES: Pupils are equal round regular reactive to light accommodation. Extraocular movements are normal. There is no conjunctival pallor. There is no scleral icterus. EARS: Tympanic membranes are intact. External auditory canals are clear. NOSE: There is no deviated nasal septum. There is no inflammation nasal mucous membrane. MOUTH: Mucous membranes of the mouth are moist. Tongue is moist there is no ulcers. There is no bleeding from the gums THROAT: There is no redness of the oropharynx. There is no exudates. SKIN: There is no skin rashes. There is no skin lesions. There is no petechia or ecchymosis. NECK: Is supple there is mild JVD present. Carotids are equal there is no bruits. There is no lymphadenopathy. There is no goiter. There is no accessory muscle respiration use. Trachea central. LUNGS: There is diminished air entry prolonged expiration. Lungs are clear bilaterally. There is no rhonchi and today there is no wheezing. There is no rales of CHF. On percussion there is hyperresonance. HEART: S1-S2 is heard. There is no S3 gallop. There is no S4 gallop. Systolic murmur left sternal border and the apex there is no rub. ABDOMEN: Soft There is no definite hepatosplenomegaly. There is no ascites present. There is a reducible right inguinal hernia present there is no tender areas masses. EXTREMITIES: Femorals are diminished. There is no femoral bruits. Leg pulses are diminished. There is trace pedal edema bilaterally. There is no DVT or cellulitis. There is no calf tenderness. There is no cyanosis or clubbing. [employer] FIXTURES: The patient is conscious awake alert oriented x3 with no focal deficits. PSYCHIATRIC the patient judgment insight are intact her affect is normal. Patient's 24-hour intake is 748 ml. 24-hour output is 2200 mL Chest X-Ray 01/24/20 03:27 IMPRESSION: Cardiomegaly. Low lung volumes with mild interstitial prominence likely reflecting interstitial edema. Tiny effusions and/or pleural thickening copyright 2011 [employer]- All Rights Reserved Chest X-Ray 01/24/20 06:43 IMPRESSION: No pneumothorax following right IJ central line placement. Chest X-Ray 01/30/20 00:00 IMPRESSION: STABLE APPEARANCE OF THE CHEST. Scrotum Ultrasound 01/30/20 00:00 IMPRESSION: 1. Small bilateral bowel containing inguinal hernias. 2. Small bilateral hydroceles. Additional more focal collection within the right inguinal canal measuring approximately 8.5 x 7.1 x 6.6 cm, possibly loculated right-sided hydrocele. This has increased in size compared to prior CT and ultrasound. Diffuse bilateral scrotal wall thickening. Recommend correlation with physical exam. 3. Grossly unremarkable testicular and epididymal parenchymal bilaterally. Paracentesis Ultrasound 01/31/20 00:00 IMPRESSION: SUCCESSFUL ULTRASOUND GUIDED PARACENTESIS. KUB X-Ray 02/01/20 00:00 IMPRESSION: Severe constipation. This has progressed when compared to November KUB X-Ray 02/04/20 07:00 IMPRESSION: Persistent fecal impaction. IMPRESSION/RECOMMENDATION: 1. Hypotension: Most likely secondary to pump failure.. This is resolved. he is on midodrine 2. Acute on chronic systolic heart failure: Although the chest x-ray does not show CHF patient is JVD is elevated consistent with chronic heart failure with acute exacerbation. [place] continue PO lasix.Will start entresto. 3. COPD with exacerbation: Continue bronchodilators and consider steroids and antibiotics. 4. Coronary artery disease: No anginal symptoms. History of prior [place] 5. Dilated cardiomyopathy with severely reduced LV ejection fraction. Continue beta-sarina. We will stop the patient's lisinopril in anticipation of starting the patient on Entresto. Cardiovascular status is stable and hence will schedule the patient for IV Lexiscan Cardiolite stress test. This will be done tomorrow. Later would be recommended for referral for AICD placement. This will be done once the patient's cardiac and pulmonary status stabilizes. 6. Alcoholic cirrhosis by history: The patient had 3 L of acetic fluid removed by paracentesis and no reaccumulation of acetic fluid.. 7. History of hypertension: At present blood pressure low 8. History of tobacco abuse disorder: Patient counseled to refrain from smoking. 9. Right inguinal hernia: At present no evidence of obstruction or incarceration. 10. Chronic pain syndrome: Patient on gabapentin. 11. Hyperlipidemia: Continue statins. 12. [R 94.30] abnormal cardiovascular function study [abnormal stress test] with evidence of prior [place], with only minimal reversible ischemia, and findings consistent with a mixture of ischemic and dilated cardiomyopathy. 13. Positive hepatitis C antibody: Most likely patient has history of hepatitis C. 14. High risk for sudden . Patient has a LifeVest on and he has been edu cated about the usage of the LifeVest. Required instructions have been given to him. 15. Obstipation. This is resolved with the patient having bowel movement after an enema yesterday. Medications reviewed. Medications, medication regimen and management plan discussed with attending provider on the case. Medical decision making is of moderate complexity. 40-minute spent with patient with more than 50% of time spent in direct patient care. Cardiac status stable, but needs starting of entresto.. t. He also needs to follow-up with the [facility] for the pursuance of AICD placement.
[2020-02-04] MEDS: SIMVASTATIN 40 MG TABLET PO SCH (21:06)
[2020-02-05] MEDS: LACTULOSE SYRUP 20 GM/30 ML UDCUP PO SCH ×2 (00:01→05:17)
[2020-02-05] MEDS: OXYCODONE HCL IR 5 MG TABLET PO PRN ×5 (00:03→21:22)
[2020-02-05] MEDS: GABAPENTIN 300 MG CAPSULE PO SCH ×3 (05:11→21:22)
[2020-02-05] MEDS: POLYETHYLENE GLYCOL 3350 POWDER 17 GM/1 PACKET PO SCH (10:52)
[2020-02-05] MEDS: ENOXAPARIN SODIUM INJ 40 MG/0.4 ML DISP.SYRIN SUBCUT SCH (11:03)
[2020-02-05] MEDS: MIDODRINE HCL 5 MG TABLET PO SCH ×4 (11:04→19:51)
[2020-02-05] MEDS: GUAIFENESIN 600 MG TABLET.SA PO SCH ×2 (11:04→21:22)
[2020-02-05] MEDS: CEFTRIAXONE 2 GM/D5W RTU 2 GM/50 ML RTUPB IV SCH (11:05)
[2020-02-05] MEDS: SPIRONOLACTONE 25 MG TABLET PO SCH (11:17)
[2020-02-05] MEDS: METOPROLOL SUCCINATE 25 MG TAB.SR.24H PO SCH ×2 (11:17→21:23)
[2020-02-05] MEDS: DOCUSATE SODIUM 100 MG CAPSULE PO SCH ×2 (11:18→17:57)
[2020-02-05] MEDS: FLUTICASONE/VILANTEROL 200-25 MCG/DOSE IH SCH (11:18)
[2020-02-05] MEDS: FOLIC ACID 1 MG TABLET PO SCH (11:19)
[2020-02-05] MEDS: ROFLUMILAST 500 MCG TABLET PO SCH (11:19)
[2020-02-05] MEDS: PREDNISONE 20 MG TABLET PO SCH (11:19)
[2020-02-05] MEDS: DIGOXIN INJ 0.5 MG/2 ML AMPULE IV SCH (11:19)
[2020-02-05] MEDS: FUROSEMIDE 40 MG TABLET PO SCH (11:21)
--- NOTE | 2020-02-05 12:37 | Progress Note ---
Provider Note Provider Note: CARDIOLOGY PROGRESS NOTE by Dr. Lorenza Sandoval on 02/05/2020. Subjective: The patient denies any chest pain or discomfort. There is no shortness of breath. There is no PND orthopnea seen. The patient has no leg edema. There are no arrhythmias seen on the monitor. The patient's complains of inability to void urine. He has symptoms suggestive of enlarged prostate. He states he feels wiped out due to his significant bowel movements after enema yesterday. It is been 72 hours since his stoppage of lisinopril. It is time to start the patient on Entresto. PHYSICAL EXAMINATION: The patient appears to be chronically ill and malnourished but in no acute distress. Selected Entries 02/05/20 12:42 Temperature 98.5 F Temperature Oral Source Pulse Rate 80 Respiratory 18 Rate Blood Pressure 105/84 Blood Pressure 91 Mean BP Location Left Arm BP Position Supine O2 Sat by Pulse 99 Oximetry HEAD: Is atraumatic normocephalic. EYES: Pupils are equal round regular reactive to light accommodation. Extraocular movements are normal. There is no conjunctival pallor. There is no scleral icterus. EARS: Tympanic membranes are intact. External auditory canals are clear. NOSE: There is no deviated nasal septum. There is no inflammation nasal mucous membrane. MOUTH: Mucous membranes of the mouth are moist. Tongue is moist there is no ulcers. There is no bleeding from the gums THROAT: There is no redness of the oropharynx. There is no exudates. SKIN: There is no skin rashes. There is no skin lesions. There is no petechia or ecchymosis. NECK: Is supple there is mild JVD present. Carotids are equal there is no bruits. There is no lymphadenopathy. There is no goiter. There is no accessory muscle respiration use. Trachea central. LUNGS: There is diminished air entry prolonged expiration. Lungs are clear bilaterally. There is no rhonchi and today there is no wheezing. There is no rales of CHF. On percussion there is hyperresonance. HEART: S1-S2 is heard. There is no S3 gallop. There is no S4 gallop. Systolic murmur left sternal border and the apex there is no rub. ABDOMEN: Soft There is no definite hepatosplenomegaly. There is no ascites present. There is a reducible right inguinal hernia present there is no tender areas masses. EXTREMITIES: Femorals are diminished. There is no femoral bruits. Leg pulses are diminished. There is trace pedal edema bilaterally. There is no DVT or cellulitis. There is no calf tenderness. There is no cyanosis or clubbing. STERILIZATION TECH: The patient is conscious awake alert oriented x3 with no focal deficits. PSYCHIATRIC the patient judgment insight are intact her affect is normal. Patient's 24-hour intake is 716 ml. 24-hour output is 475 mL.Doubt accuracy. Labs- All tests 24 hr 02/05/20 14:25 Urine Color YELLOW Urine Appearance CLEAR Urine pH 7.0 Ur Specific [place] 1.011 Urine Protein NEGATIVE Urine Glucose (UA) NEGATIVE Urine Ketones NEGATIVE Urine Blood NEGATIVE Urine Nitrite NEGATIVE Urine Bilirubin NEGATIVE Urine Urobilinogen NEGATIVE Ur Leukocyte Esterase NEGATIVE Urine WBC (Auto) 1 Urine RBC (Auto) 1 U Hyaline Cast (Auto) 7 Squamous Epi Cells Auto <1 Urine Mucus (Auto) RARE Urine Ascorbic Acid NEGATIVE Chest X-Ray 01/24/20 03:27 IMPRESSION: Cardiomegaly. Low lung volumes with mild interstitial prominence likely reflecting interstitial edema. Tiny effusions and/or pleural thickening copyright 2011 [employer]- All Rights Reserved Chest X-Ray 01/24/20 06:43 IMPRESSION: No pneumothorax following right IJ central line placement. Chest X-Ray 01/30/20 00:00 IMPRESSION: STABLE APPEARANCE OF THE CHEST. Scrotum Ultrasound 01/30/20 00:00 IMPRESSION: 1. Small bilateral bowel containing inguinal hernias. 2. Small bilateral hydroceles. Additional more focal collection within the right inguinal canal measuring approximately 8.5 x 7.1 x 6.6 cm, possibly loculated right-sided hydrocele. This has increased in size compared to prior CT and ultrasound. Diffuse bilateral scrotal wall thickening. Recommend correlation with physical exam. 3. Grossly unremarkable testicular and epididymal parenchymal bilaterally. Paracentesis Ultrasound 01/31/20 00:00 IMPRESSION: SUCCESSFUL ULTRASOUND GUIDED PARACENTESIS. KUB X-Ray 02/01/20 00:00 IMPRESSION: Severe constipation. This has progressed when compared to November. SPECT Scan-Cardiac NM 02/01/20 08:00 IMPRESSION: No perfusion defects are identified. Dilated left ventricle with global hypokinesia. Markedly reduced ejection fraction measuring 22%. KUB X-Ray 02/04/20 07:00 IMPRESSION: Persistent fecal impaction. IMPRESSION/RECOMMENDATION: 1. Hypotension: Most likely secondary to pump failure.. This is resolved. He is on midodrine 2. Acute on chronic systolic heart failure: Although the chest x-ray does not show CHF patient is JVD is elevated consistent with chronic heart failure with acute exacerbation. [place] continue PO lasix.Will start entresto. 3. COPD with exacerbation: Continue bronchodilators and consider steroids and antibiotics. 4. Coronary artery disease: No anginal symptoms. History of prior IL. Recent IV Lexiscan Cardiolite showed no significant reversible ischemia. 5. Dilated cardiomyopathy with severely reduced LV ejection fraction. Continue beta-sarina. We will start the patient on Entresto. 6. Alcoholic cirrhosis by history: The patient had 3 L of acetic fluid removed by paracentesis and no reaccumulation of acetic fluid.. 7. History of hypertension: At present blood pressure low 8. History of tobacco abuse disorder: Patient counseled to refrain from smoking. 9. Right inguinal hernia: At present no evidence of obstruction or incarceration. 10. Chronic pain syndrome: Patient on gabapentin. 11. Hyperlipidemia: Continue statins. 12. [R 94.30] abnormal cardiovascular function study [abnormal stress test] with evidence of prior IL, with only minimal reversible ischemia, and findings consistent with a mixture of ischemic and dilated cardiomyopathy. 13. Positive hepatitis C antibody: Most likely patient has history of hepatitis C. 14. High risk for sudden . Patient has a LifeVest on and he has been educated about the usage of the LifeVest. Required instructions have been given to him. 15. Obstipation. This is resolved with the patient having bowel movement after an enema yesteeday, 16. BPH. Symptoms of enlarged prostate. Patient will be started on Flomax. Medications reviewed. Medical regimen labs and plan discussed with the attending provider. Medical decision making hours of moderate complexity. 40 minutes spent with patient with more than 50% time spent in direct patient care. Patient is reluctant to go home.
[2020-02-05] MEDS: SACUBITRIL/VALSARTAN 24 MG/26 MG TABLET PO SCH ×2 (12:57→21:27)
[2020-02-05] MEDS: IPRATROPIUM/ALBUTEROL 0.5-2.5 MG/3 ML AMPUL NEB PRN (13:30)
--- NOTE | 2020-02-05 13:30 | PDOC PROGRESS REPORT ---
Subjective Progress Note for:: 02/04/20 Subjective:: Patient was seen on afternoon rounds. He is found sitting up to the bedside commode. He reports numerous bowel movements today with significant relief of constipation symptoms. States he is feeling well and wishes to discharge home. Was later informed by nursing that he did not want to d/c as he was concerned about his mobility and continued frequent bowel movements; requests to remain in house. Otherwise, he denies fever, chest pain, palpitations, nausea and vomiting. No other questions or concerns. No concerns per nursing at this time. Reason For Visit: CHF EXCAERBATION Physical Exam Vital Signs: Temp Pulse Resp BP Pulse Ox 98.0 F 73 18 114/57 L 94 02/05/20 08:32 02/05/20 11:02 02/05/20 08:32 02/05/20 11:02 02/05/20 08:32 Intake & Output 02/04/20 02/05/20 02/06/20 06:59 06:59 06:59 Intake Total 748 716 100 Output Total 2200 475 Balance -1452 241 100 Weight 80.1 kg 76.1 kg General appearance: PRESENT: no acute distress, cooperative, disheveled, well- developed, well-nourished Head exam: PRESENT: atraumatic, normocephalic Eye exam: PRESENT: conjunctiva pink, EOMI, PERRLA. ABSENT: scleral icterus Mouth exam: PRESENT: moist, tongue midline Respiratory exam: PRESENT: clear to auscultation rossy, symmetrical, unlabored, other - Baseline oxygen requirement. ABSENT: rales, rhonchi, wheezes Cardiovascular exam: PRESENT: RRR. ABSENT: diastolic murmur, rubs, systolic murmur Vascular exam: PRESENT: normal capillary refill GI/Abdominal exam: PRESENT: distended, normal bowel sounds, soft. ABSENT: guarding, mass, organolmegaly, rebound, tenderness Rectal exam: PRESENT: deferred Extremities exam: PRESENT: full ROM. ABSENT: calf tenderness, clubbing, pedal edema Neurological exam: PRESENT: alert, awake, oriented to person, oriented to place, oriented to time, oriented to situation, CN II-XII grossly intact. ABSENT: motor sensory deficit Psychiatric exam: PRESENT: appropriate affect, normal mood. ABSENT: homicidal ideation, suicidal ideation Skin exam: PRESENT: dry, intact, warm. ABSENT: cyanosis, rash Results Laboratory Results: 02/02/20 05:00 02/02/20 05:00 01/31/20 11:15 Ascities Fluid Gram Stain - Final 01/31/20 11:15 Ascities Fluid Body Fluid Culture - Final NO AEROBIC OR ANAEROBIC ORGANISMS RECOVERED 01/24/20 01/27/20 01/30/20 06:58 06:10 10:45 Troponin I 0.031 NT-Pro-B Natriuret Pep 22044 H 38302 H 6210 H Impressions: Chest X-Ray 01/30/20 00:00 IMPRESSION: STABLE APPEARANCE OF THE CHEST. Scrotum Ultrasound 01/30/20 00:00 IMPRESSION: 1. Small bilateral bowel containing inguinal hernias. 2. Small bilateral hydroceles. Additional more focal collection within the right inguinal canal measuring approximately 8.5 x 7.1 x 6.6 cm, possibly loculated right-sided hydrocele. This has increased in size compared to prior CT and ultrasound. Diffuse bilateral scrotal wall thickening. Recommend correlation with physical exam. 3. Grossly unremarkable testicular and epididymal parenchymal bilaterally. Paracentesis Ultrasound 01/31/20 00:00 IMPRESSION: SUCCESSFUL ULTRASOUND GUIDED PARACENTESIS. SPECT Scan-Cardiac NM 02/01/20 08:00 IMPRESSION: No perfusion defects are identified. Dilated left ventricle with global hypokinesia. Markedly reduced ejection fraction measuring 22%. KUB X-Ray 02/04/20 07:00 IMPRESSION: Persistent fecal impaction. Assessment and Plan - Diagnosis (1) CHF (congestive heart failure) Qualifiers: Heart failure type: combined systolic and diastolic Heart failure chronicity: acute on chronic Qualified Code(s): I50.43 - Acute on chronic com bined systolic (congestive) and diastolic (congestive) heart failure Is this a current diagnosis for this admission?: Yes Plan: Acute exacerbation has resolved. He is admitted to [facility] and monitored on continuous cardiac telemetry. Cardiology is consulted; primary management per Dr. Comer's expertise. No longer on dopamine drip. Currently on Midodrine 10 mg 3 times daily for blood pressure support, metoprolol, spironolactone, and furosemide. Daily statin. Cardiac diet Daily weights, strict I&O's. Has received LifeVest. Ready for discharge from cardiology perspective. (2) Acute and chronic respiratory failure Qualifiers: Respiratory failure complication: hypoxia Qualified Code(s): J96.21 - Acute and chronic respiratory failure with hypoxia Is this a current diagnosis for this admission?: Yes Plan: Acute exacerbation is resolved. Acute worsening respiratory failure is secondary to CHF exacerbation. Return to baseline oxygen requirement. (3) Shortness of breath Is this a current diagnosis for this admission?: Yes Plan: Resolved. Secondary to underlying CHF and COPD and cirrhosis. Patient is on 3 L of oxygen regularly; currently on baseline supplemental oxygen. (4) Ascites Is this a current diagnosis for this admission?: Yes Plan: s/p paracentesis with removal of 3 L fluid Initial laboratory evaluation unremarkable; WBCs 528, RBCs 341. SAAG >1.1 g/dl; likely some portal hypertension. Gram stain and culture had No Growth Continue spironolactone and furosemide as above. (5) Cirrhosis of liver Qualifiers: Hepatic cirrhosis type: alcoholic cirrhosis Is this a current diagnosis for this admission?: Yes Plan: History of cirrhosis of the liver complicating his fluid retention. Likely related to history of heavy alcohol use. Status post paracentesis with 3 L removed. Hep C positive Will require outpatient GI follow up for treatment of HVC (6) Hernia, inguinal, right Is this a current diagnosis for this admission?: Yes Plan: Scrotal sonogram revealed small bilateral bowel containing inguinal hernias. Small bilateral hydroceles; R possible loculated. Likely related to ascites (7) Constipation Qualifiers: Constipation type: unspecified constipation type Qualified Code(s): K59.00 - Constipation, unspecified Is this a current diagnosis for this admission?: Yes Plan: Significantly improved; frequent large bms today. KUB shows Severe Constipation Repeat KUB unchanged. Escalate bowel protocol to include twice daily Colace, MiraLAX daily, lactulose 20 g every 6, and twice daily fleets enema as needed. Encourage ambulation. - Time Time Spent with patient: 25-34 minutes Medications reviewed and adjusted accordingly: Yes Anticipated discharge: Home with Homehealth Within: within 24 hours
--- NOTE | 2020-02-05 13:36 | PDOC PROGRESS REPORT ---
Subjective Progress Note for:: 02/05/20 Subjective:: Patient was seen on morning rounds. He is found sitting up to bed preparing to eat lunch. He reports normal bowel movement today; reports he feels much better. Does note increased pedal edema. He also complains of urinary frequency/dribbling. Otherwise, he denies fever, chest pain, palpitations, nausea and vomiting. No other questions or concerns. No concerns per nursing at this time. Reason For Visit: CHF EXCAERBATION Physical Exam Vital Signs: Temp Pulse Resp BP Pulse Ox 98.0 F 73 18 114/57 L 94 02/05/20 08:32 02/05/20 11:02 02/05/20 08:32 02/05/20 11:02 02/05/20 08:32 Intake & Output 02/04/20 02/05/20 02/06/20 06:59 06:59 06:59 Intake Total 748 716 100 Output Total 2200 475 Balance -1452 241 100 Weight 80.1 kg 76.1 kg General appearance: PRESENT: no acute distress, cooperative, well-developed, well-nourished Head exam: PRESENT: atraumatic, normocephalic Eye exam: PRESENT: conjunctiva pink, EOMI, PERRLA. ABSENT: scleral icterus Mouth exam: PRESENT: moist, tongue midline Respiratory exam: PRESENT: clear to auscultation rossy, symmetrical, unlabored. ABSENT: rales, rhonchi, wheezes Cardiovascular exam: PRESENT: RRR. ABSENT: diastolic murmur, rubs, systolic murmur Pulses: PRESENT: +1 pedal pulses bilateral Vascular exam: PRESENT: normal capillary refill GI/Abdominal exam: PRESENT: normal bowel sounds, soft. ABSENT: distended, guarding, mass, organolmegaly, rebound, tenderness Rectal exam: PRESENT: deferred Extremities exam: PRESENT: full ROM, pedal edema - +2 bilaterall; soft nonpitting. ABSENT: calf tenderness, clubbing Musculoskeletal exam: PRESENT: ambulatory Neurological exam: PRESENT: alert, awake, oriented to person, oriented to place, oriented to time, oriented to situation, CN II-XII grossly intact. ABSENT: motor sensory deficit Psychiatric exam: PRESENT: appropriate affect, normal mood. ABSENT: homicidal ideation, suicidal ideation Skin exam: PRESENT: dry, intact, warm. ABSENT: cyanosis, rash Results Laboratory Results: 02/02/20 05:00 02/02/20 05:00 01/31/20 11:15 Ascities Fluid Gram Stain - Final 01/31/20 11:15 Ascities Fluid Body Fluid Culture - Final NO AEROBIC OR ANAEROBIC ORGANISMS RECOVERED 01/24/20 01/27/20 01/30/20 06:58 06:10 10:45 Troponin I 0.031 NT-Pro-B Natriuret Pep 87910 H 45267 H 6210 H Impressions: Chest X-Ray 01/30/20 00:00 IMPRESSION: STABLE APPEARANCE OF THE CHEST. Scrotum Ultrasound 01/30/20 00:00 IMPRESSION: 1. Small bilateral bowel containing inguinal hernias. 2. Small bilateral hydroceles. Additional more focal collection within the right inguinal canal measuring approximately 8.5 x 7.1 x 6.6 cm, possibly loc ulated right-sided hydrocele. This has increased in size compared to prior CT and ultrasound. Diffuse bilateral scrotal wall thickening. Recommend correlation with physical exam. 3. Grossly unremarkable testicular and epididymal parenchymal bilaterally. Paracentesis Ultrasound 01/31/20 00:00 IMPRESSION: SUCCESSFUL ULTRASOUND GUIDED PARACENTESIS. SPECT Scan-Cardiac NM 02/01/20 08:00 IMPRESSION: No perfusion defects are identified. Dilated left ventricle with global hypokinesia. Markedly reduced ejection fraction measuring 22%. KUB X-Ray 02/04/20 07:00 IMPRESSION: Persistent fecal impaction. Assessment and Plan - Diagnosis (1) CHF (congestive heart failure) Qualifiers: Heart failure type: combined systolic and diastolic Heart failure chronicity: acute on chronic Qualified Code(s): I50.43 - Acute on chronic combined systolic (congestive) and diastolic (congestive) heart failure Is this a current diagnosis for this admission?: Yes Plan: Acute exacerbation has resolved. He is admitted to [facility] and monitored on continuous cardiac telemetry. Cardiology is consulted; primary management per Dr. Comer's expertise. No longer on dopamine drip. Currently on Midodrine 10 mg 3 times daily for blood pressure support, metoprolol, spironolactone, and furosemide. Cardiology notes patient has been off lisinopril >72 hrs; would like to start Entresto and monitor for hypotension x24hrs. Daily statin. Cardiac diet Daily weights, strict I&O's. Has received LifeVest. (2) Acute and chronic respiratory failure Qualifiers: Respiratory failure complication: hypoxia Qualified Code(s): J96.21 - Acute and chronic respiratory failure with hypoxia Is this a current diagnosis for this admission?: Yes Plan: Acute exacerbation is resolved. Acute worsening respiratory failure is secondary to CHF exacerbation. Return to baseline oxygen requirement. (3) Shortness of breath Is this a current diagnosis for this admission?: Yes Plan: Resolved. Secondary to underlying CHF and COPD and cirrhosis. Patient is on 3 L of oxygen regularly; currently on baseline supplemental oxygen. (4) Ascites Is this a current diagnosis for this admission?: Yes Plan: s/p paracentesis with removal of 3 L fluid Initial laboratory evaluation unremarkable; WBCs 528, RBCs 341. SAAG >1.1 g/dl; likely some portal hypertension. Gram stain and culture had No Growth Continue spironolactone and furosemide as above. (5) Cirrhosis of liver Qualifiers: Hepatic cirrhosis type: alcoholic cirrhosis Is this a current diagnosis for this admission?: Yes Plan: History of cirrhosis of the liver complicating his fluid retention. Likely related to history of heavy alcohol use. Status post paracentesis with 3 L removed. Hep C positive Will require outpatient GI follow up for treatment of HVC (6) Hernia, inguinal, right Is this a current diagnosis for this admission?: Yes Plan: Scrotal sonogram revealed small bilateral bowel containing inguinal hernias. Small bilateral hydroceles; R possible loculated. Likely related to ascites (7) Constipation Qualifiers: Constipation type: unspecified constipation type Qualified Code(s): K59.00 - Constipation, unspecified Is this a current diagnosis for this admission?: Yes Plan: Resolved. KUB shows Severe Constipation Repeat KUB unchanged. Continue bowel protocol of twice daily Colace, MiraLAX daily, and twice daily fleets enema as needed. Encourage ambulation. - Time Time Spent with patient: 25-34 minutes Medications reviewed and adjusted accordingly: Yes Anticipated discharge: Home with Homehealth Within: within 24 hours
[2020-02-05 15:22] LABS: APPEARANCE,URINE CLEAR; BILIRUBIN,URINE NEGATIVE (NEGATIVE); COLOR,URINE YELLOW; GLUCOSE, URINE NEGATIVE (NEGATIVE); KETONES,URINE NEGATIVE (NEGATIVE); LEUKOCYTE ESTERASE,URINE NEGATIVE (NEGATIVE); NITRITE,URINE NEGATIVE (NEGATIVE); PROTEIN,URINE NEGATIVE (NEGATIVE); URINE SPECIFIC GRAVITY 1.011; UROBILINOGEN,URINE NEGATIVE mg/dL (<2.0)
[2020-02-05] MEDS: TAMSULOSIN HCL 0.4 MG CAP.SR.24H PO SCH (18:12)
[2020-02-05] MEDS: SIMVASTATIN 40 MG TABLET PO SCH (21:22)
[2020-02-06] MEDS: OXYCODONE HCL IR 5 MG TABLET PO PRN ×3 (01:54→14:20)
[2020-02-06] MEDS: GABAPENTIN 300 MG CAPSULE PO SCH ×2 (06:08→14:19)
[2020-02-06 06:26] LABS: HEMATOCRIT 23.3 % (37.9-51.0); MEAN CORPUSCULAR HEMOGLOBIN 25.9 pg (27.0-33.4); MEAN CORPUSCULAR HGB CONC 32.9 g/dL (32.0-36.0); MEAN CORPUSCULAR VOLUME 79 fl (80-97); PLATELET COUNT 132 10^3/uL (150-450); RED BLOOD COUNT 2.96 10^6/uL (4.35-5.55); WHITE BLOOD COUNT 8.3 10^3/uL (4.0-10.5)
[2020-02-06 06:30] LABS: HEMOGLOBIN 7.7 g/dL (13.5-17.0)
[2020-02-06 06:43] LABS: BLOOD UREA NITROGEN 33 mg/dL (7-20); CALCIUM 7.7 mg/dL (8.4-10.2); GLUCOSE 101 mg/dL (75-110); POTASSIUM 4.3 mmol/L (3.6-5.0)
[2020-02-06 06:49] LABS: CARBON DIOXIDE 37 mmol/L (22-30); CHLORIDE 93 mmol/L (98-107)
[2020-02-06 06:50] LABS: ANION GAP 2 (5-19)
[2020-02-06 08:16] LABS: HEMATOCRIT 24.7 % (37.9-51.0); HEMOGLOBIN 8.2 g/dL (13.5-17.0); MEAN CORPUSCULAR HEMOGLOBIN 25.9 pg (27.0-33.4); MEAN CORPUSCULAR HGB CONC 33.2 g/dL (32.0-36.0); MEAN CORPUSCULAR VOLUME 78 fl (80-97); PLATELET COUNT 144 10^3/uL (150-450); RED BLOOD COUNT 3.17 10^6/uL (4.35-5.55); RED CELL DISTRIBUTION WIDTH 19.3 % (11.5-14.0); WHITE BLOOD COUNT 9.2 10^3/uL (4.0-10.5)
[2020-02-06] MEDS ORDERED: NORMAL SALINE 250 ML IV PRN ×3 (08:57→08:58)
[2020-02-06] MEDS ORDERED: FUROSEMIDE 20 MG TABLET PO PRN (08:58)
[2020-02-06] MEDS: PREDNISONE 20 MG TABLET PO SCH (09:22)
[2020-02-06] MEDS: GUAIFENESIN 600 MG TABLET.SA PO SCH (09:22)
[2020-02-06] MEDS: SPIRONOLACTONE 25 MG TABLET PO SCH (09:22)
[2020-02-06] MEDS: MIDODRINE HCL 5 MG TABLET PO SCH ×3 (09:22→17:07)
[2020-02-06] MEDS: ROFLUMILAST 500 MCG TABLET PO SCH (09:22)
[2020-02-06] MEDS: FUROSEMIDE 40 MG TABLET PO SCH (09:22)
[2020-02-06] MEDS: METOPROLOL SUCCINATE 25 MG TAB.SR.24H PO SCH (09:22)
[2020-02-06] MEDS: FOLIC ACID 1 MG TABLET PO SCH (09:22)
[2020-02-06] MEDS: ENOXAPARIN SODIUM INJ 40 MG/0.4 ML DISP.SYRIN SUBCUT SCH (09:23)
[2020-02-06] MEDS: DOCUSATE SODIUM 100 MG CAPSULE PO SCH ×2 (09:23→18:33)
[2020-02-06] MEDS: FLUTICASONE/VILANTEROL 200-25 MCG/DOSE IH SCH (09:23)
[2020-02-06] MEDS: POLYETHYLENE GLYCOL 3350 POWDER 17 GM/1 PACKET PO SCH (09:23)
[2020-02-06] MEDS: SACUBITRIL/VALSARTAN 24 MG/26 MG TABLET PO SCH (09:23)
[2020-02-06] MEDS: DIGOXIN INJ 0.5 MG/2 ML AMPULE IV SCH (09:23)
--- NOTE | 2020-02-06 12:08 | Progress Note ---
Provider Note Provider Note: CARDIOLOGY PROGRESS NOTE by Dr. Lorenza Sandoval on 02/06/2020. OBJECTIVE: The patient denies any chest pain or discomfort. There is no shortness of breath. Decision has been made to give the patient a unit of blood due to his hemoglobin being 8.2. He denies any PND orthopnea. There is no arrhythmias seen on the monitor. The patient will go home with a indwelling Potter catheter and will follow up with her urologist as an outpatient. The patient is wearing the LifeVest. There is no firing of the LifeVest. PHYSICAL EXAMINATION: The patient is a frail build and appears to be chronically ill and malnourished. But in no acute distress. Selected Entries 02/06/20 07:45 Temperature 97.9 F Temperature Oral Source Pulse Rate 75 Respiratory 20 Rate Blood Pressure 91/46 L Blood Pressure 61 Mean BP Location Right Arm BP Position Supine O2 Sat by Pulse 100 Oximetry Oxygen Flow 4.00 Rate Oxygen Delivery Nasal Cannula Method HEAD: Is atraumatic normocephalic. EYES: Pupils are equal round regular reactive to light accommodation. Extraocular movements are normal. There is no conjunctival pallor. There is no scleral icterus. EARS: Tympanic membranes are intact. External auditory canals are clear. NOSE: There is no deviated nasal septum. There is no inflammation nasal mucous membrane. MOUTH: Mucous membranes of the mouth are moist. Tongue is moist there is no ulcers. There is no bleeding from the gums THROAT: There is no redness of the oropharynx. There is no exudates. SKIN: There is no skin rashes. There is no skin lesions. There is no petechia or ecchymosis. NECK: Is supple there is mild JVD present. Carotids are equal there is no bruits. There is no lymphadenopathy. There is no goiter. There is no accessory muscle respiration use. Trachea central. LUNGS: There is diminished air entry prolonged expiration. Lungs are clear bilaterally. There is no rhonchi and today there is no wheezing. There is no rales of CHF. On percussion there is hyperresonance. HEART: S1-S2 is heard. There is no S3 gallop. There is no S4 gallop. Systolic murmur left sternal border and the apex there is no rub. ABDOMEN: Soft There is no definite hepatosplenomegaly. There is no ascites present. There is a reducible right inguinal hernia present there is no tender areas masses. EXTREMITIES: Femorals are diminished. There is no femoral bruits. Leg pulses are diminished. There is trace pedal edema bilaterally. There is no DVT or cellulitis. There is no calf tenderness. There is no cyanosis or clubbing. SENIOR MEDICAL BILLING SPECIALIST: The patient is conscious awake alert oriented x3 with no focal deficits. PSYCHIATRIC the patient judgment insight are intact her affect is normal. Patient's 24-hour intake is 1464 ml. 24-hour output is 1700 ML. Labs- All tests 24 hr 02/05/20 02/06/20 02/06/20 14:25 06:05 06:05 WBC 8.3 RBC 2.96 L Hgb 7.7 L Hct 23.3 L MCV 79 L MCH 25.9 L MCHC 32.9 RDW 19.0 H Plt Count 132 L Sodium 132.2 L Potassium 4.3 Chloride 93 L Carbon Dioxide 37 H Anion Gap 2 L BUN 33 H Creatinine 0.73 Est GFR ( Amer) > 60 Est GFR (MDRD) Non-Af > 60 Glucose 101 Calcium 7.7 L Urine Color YELLOW Urine Appearance CLEAR Urine pH 7.0 Ur Specific [place] 1.011 Urine Protein NEGATIVE Urine Glucose (UA) NEGATIVE Urine Ketones NEGATIVE Urine Blood NEGATIVE Urine Nitrite NEGATIVE Urine Bilirubin NEGATIVE Urine Urobilinogen NEGATIVE Ur Leukocyte Esterase NEGATIVE Urine WBC (Auto) 1 Urine RBC (Auto) 1 U Hyaline Cast (Auto) 7 Squamous Epi Cells Auto <1 Urine Mucus (Auto) RARE Urine Ascorbic Acid NEGATIVE Blood Type Antibody Screen Crossmatch 02/06/20 02/06/20 08:00 08:00 WBC 9.2 RBC 3.17 L Hgb 8.2 L Hct 24.7 L MCV 78 L MCH 25.9 L MCHC 33.2 RDW 19.3 H Plt Count 144 L Sodium Potassium Chloride Carbon Dioxide Anion Gap BUN Creatinine Est GFR ( Amer) Est GFR (MDRD) Non-Af Glucose Calcium Urine Color Urine Appearance Urine pH Ur Specific [place] Urine Protein Urine Glucose (UA) Urine Ketones Urine Blood Urine Nitrite Urine Bilirubin Urine Urobilinogen Ur Leukocyte Esterase Urine WBC (Auto) Urine RBC (Auto) U Hyaline Cast (Auto) Squamous Epi Cells Auto Urine Mucus (Auto) Urine Ascorbic Acid Blood Type O POSITIVE Antibody Screen NEGATIVE Crossmatch See Detail Chest X-Ray 01/24/20 03:27 IMPRESSION: Cardiomegaly. Low lung volumes with mild interstitial prominence likely reflecting interstitial edema. Tiny effusions and/or pleural thickening copyright 2011 [employer]- All Rights Reserved Chest X-Ray 01/24/20 06:43 IMPRESSION: No pneumothorax following right IJ central line placement. Chest X-Ray 01/30/20 00:00 IMPRESSION: STABLE APPEARANCE OF THE CHEST. Scrotum Ultrasound 01/30/20 00:00 IMPRESSION: 1. Small bilateral bowel containing inguinal hernias. 2. Small bilateral hydroceles. Additional more focal collection within the right inguinal canal measuring approximately 8.5 x 7.1 x 6.6 cm, possibly loculated right-sided hydrocele. This has increased in size compared to prior CT and ultrasound. Diffuse bilateral scrotal wall thickening. Recommend correlation with physical exam. 3. Grossly unremarkable testicular and epididymal parenchymal bilaterally. Paracentesis Ultrasound 01/31/20 00:00 IMPRESSION: SUCCESSFUL ULTRASOUND GUIDED PARACENTESIS. KUB X-Ray 02/01/20 00:00 IMPRESSION: Severe constipation. This has progressed when compared to November. KUB X-Ray 02/04/20 07:00 IMPRESSION: Persistent fecal impaction. IMPRESSION/RECOMMENDATION: 1. Hypotension: Most likely secondary to pump failure.. This is resolved. He is on midodrine 2. Acute on chronic systolic heart failure: Although the chest x-ray does not show CHF patient is JVD is elevated consistent with chronic heart failure with acute exacerbation. [place] continue PO lasix.Will start entresto. 3. COPD with exacerbation: Continue bronchodilators and consider steroids and antibiotics. 4. Coronary artery disease: No anginal symptoms. History of prior NE. Recent IV Lexiscan Cardiolite showed no significant reversible ischemia. 5. Dilated cardiomyopathy with severely reduced LV ejection fraction. Continue beta-sarina. We will start the patient on Entresto. 6. Alcoholic cirrhosis by history: The patient had 3 L of acetic fluid removed by paracentesis and no reaccumulation of acetic fluid.. 7. History of hypertension: At present blood pressure low 8. History of tobacco abuse disorder: Patient counseled to refrain from smoking. 9. Right inguinal hernia: At present no evidence of obstruction or incarceration. 10. Chronic pain syndrome: Patient on gabapentin. 11. Hyperlipidemia: Continue statins. 12. [R 94.30] abnormal cardiovascular function study [abnormal stress test] with evidence of prior NE, with only minimal reversible ischemia, and findings consistent with a mixture of ischemic and dilated cardiomyopathy. 13. Positive hepatitis C antibody: Most likely patient has history of hepatitis C. 14. High risk for sudden . Patient has a LifeVest on and he has been educated about the usage of the LifeVest. Required instructions have been given to him. 15. Obstipation. This is resolved with the patient having bowel movement after an enema yesteeday, 16. BPH. Symptoms of enlarged prostate. Patient will be started on Flomax. 17. Anemia: Patient will be getting 1 unit of packed RBCs. EKG reviewed. Medical regimen management plan discussed with attending provider on the case. Medical decision making is of moderate complexity. We will sign off and follow the patient in the office. Case discussed with the attending provider on the case.
[2020-02-06] MEDS: IPRATROPIUM/ALBUTEROL 0.5-2.5 MG/3 ML AMPUL NEB PRN (14:01)
[2020-02-06 16:49] VITALS: BP 109/52
[2020-02-06] MEDS: TAMSULOSIN HCL 0.4 MG CAP.SR.24H PO SCH (17:07)
[2020-02-06 18:12] LABS: MEAN CORPUSCULAR HEMOGLOBIN 26.1 pg (27.0-33.4); MEAN CORPUSCULAR HGB CONC 33.2 g/dL (32.0-36.0); MEAN CORPUSCULAR VOLUME 79 fl (80-97); PLATELET COUNT 156 10^3/uL (150-450); RED BLOOD COUNT 3.81 10^6/uL (4.35-5.55); WHITE BLOOD COUNT 10.6 10^3/uL (4.0-10.5)
--- NOTE | 2020-02-06 18:27 | PDOC DISCHARGE SUMMARY ---
Impression - Admit/DC Date/PCP Admission Date/Primary Care Provider: 01/25/20 14:27 GENNY ZARCO MD Discharge Date: 02/06/20 - Discharge Diagnosis (1) CHF (congestive heart failure) Is this a current diagnosis for this admission?: Yes (2) Acute and chronic respiratory failure Is this a current diagnosis for this admission?: Yes (3) Shortness of breath Is this a current diagnosis for this admission?: Yes (4) Ascites Is this a current diagnosis for this admission?: Yes (5) Cirrhosis of liver Is this a current diagnosis for this admission?: Yes (6) Hernia, inguinal, right Is this a current diagnosis for this admission?: Yes (7) Constipation Is this a current diagnosis for this admission?: Yes (8) Urinary retention Is this a current diagnosis for this admission?: Yes - Additional Information Resuscitation Status: Full Code Discharge Diet: Cardiac Discharge Activity: Activity As Tolerated, Balance Activity w/Rest, Weigh Daily Referrals: UROLOGY [Provider Group] (Follow up within 2-3 weeks for urinary retention. Patient is [place] will schedule.) MIKA WRIGHT MD [ACTIVE STAFF] - (Hepatitis C treatment Spoke to Yanna at office. She stated that she needs to speak to Dr. Wright before scheduling appointment and will contact patient with appointment time and date.) GENNY ZARCO MD [Primary Care Provider] - 02/10/20 11:15 am () Prescriptions: Spironolactone [Aldactone 25 mg Tablet] 25 mg PO DAILY #30 tablet Digoxin 125 mcg PO DAILY #30 tablet Sacubitril/Valsartan [Entresto 24 mg/26 mg Tablet] 1 tab PO Q12 #60 tablet Tamsulosin HCl [Flomax 0.4 mg Cap.sr] 0.4 mg PO PCSUPPER #30 cap.sr.24h Midodrine HCl [Proamatine 5 mg Tablet] 10 mg PO TID #180 tablet Oxycodone HCl [Roxicodone] 5 mg PO Q6HP PRN #16 tablet PRN Reason: Home Medications: Folic Acid [Folvite 1 mg Tablet] 1 mg PO DAILY 10/16/19 Gabapentin [Neurontin 300 mg Capsule] 1,200 mg PO Q8 10/16/19 Ketoconazole 1 applic TOP TIDP PRN 10/16/19 Cyanocobalamin (Vitamin B-12) [Vitamin B-12 Inj 1000 Mcg/1 ml Vial] 1,000 mcg IM .MONTHLY 12/01/19 Simvastatin [Zocor 40 mg Tablet] 40 mg PO QHS 12/01/19 Albuterol Sulfate [Ventolin Hfa 8 gm Mdi (1 Mdi/ER Disp)] 2 puff IH Q6HP PRN #1 inhaler 12/11/19 Budesonide/Formoterol Fumarate [Symbicort HFA 160-4.5 mcg Inhaler 6 gm] 2 puff IH Q12 01/12/20 Tramadol HCl [Ultram] 100 mg PO Q8HP PRN 01/12/20 Furosemide [Lasix 40 mg Tablet] 40 mg PO DAILY #30 tablet 01/23/20 Metoprolol Succinate [Toprol Xl 25 mg Tab.sr] 25 mg PO Q12 #60 tab.sr.24h 01/23/20 Prednisone [Deltasone 20 mg Tablet] 40 mg PO DAILY #10 tablet 01/23/20 Roflumilast [Daliresp 500 Mcg Tablet] 500 mcg PO DAILY #30 tablet 01/23/20 Bisacodyl [Dulcolax 5 mg Tablet] 5 mg PO DAILYP PRN tabec 02/04/20 Digoxin 125 mcg PO DAILY #30 tablet 02/04/20 Docusate Sodium [Colace 100 mg Capsule] 200 mg PO BID capsule 02/04/20 Midodrine HCl [Proamatine 5 mg Tablet] 10 mg PO TID #180 tablet 02/04/20 Polyethylene Glycol 3350 [Miralax Powder 17 gm/Packet] 17 gm PO DAILY powd.pack 02/04/20 Spironolactone [Aldactone 25 mg Tablet] 25 mg PO DAILY #30 tablet 02/04/20 Oxycodone HCl [Roxicodone] 5 mg PO Q6HP PRN #16 tablet 02/06/20 Sacubitril/Valsartan [Entresto 24 mg/26 mg Tablet] 1 tab PO Q12 #60 tablet 02/06/20 Tamsulosin HCl [Flomax 0.4 mg Cap.sr] 0.4 mg PO PCSUPPER #30 cap.sr.24h 02/06/20 History of Present Illiness History of Present Illness: Per H&P by Dr. Tan: DURAN TELLES is a 69 year old male Patient was just discharged on January 22. Was treated for exacerbated congestive heart failure, COPD, cirrhosis, community-acquired pneumonia, chronic respiratory failure acute. Returns today with the complaint of difficulty breathing. He was not really communicative as he said his uncomfortable. There is no complaint of chest pain. His BNP is elevated at 12,400 however this appears to be near his baseline range. It was 11,980 on January 11. Patient is followed by Dr. Zarco and so will reconsult him to manage this patient if needed.Echocardiogram reveals ejection fraction of 15 to 20% with severe global hypokinesis. This was from December 2019 Hospital Course Hospital Course: (1) CHF (congestive heart failure) Acute exacerbation has resolved. He is admitted to [facility] and monitored on continuous cardiac telemetry. Cardiology is consulted; primary management per Dr. Comer's expertise. Did require dopamine drip for BP support while diuresing. Currently on Midodrine 10 mg 3 times daily for blood pressure support, metoprolol, spironolactone, and furosemide. Lisinopril was placed on hold; 172-hour washout was complete, he was started on Entresto and observed for 24 hours. Tolerated well without worsened hypotension. Continue Daily statin. Cardiac diet Daily weights, strict I&O's. Has received LifeVest; he is instructed on the importance of wearing LifeVest at all times and following up with Dr. Zarco for further management. (2) Acute and chronic respiratory failure Acute exacerbation is resolved. Acute worsening respiratory failure is secondary to CHF exacerbation. Return to baseline oxygen requirement. (3) Shortness of breath Resolved. Secondary to underlying CHF and COPD and cirrhosis. Patient is on 3 L of oxygen regularly; currently on baseline supplemental oxygen. (4) Ascites Is this a current diagnosis for this admission?: Yes Plan: s/p paracentesis with removal of 3 L fluid Initial laboratory evaluation unremarkable; WBCs 528, RBCs 341. SAAG >1.1 g/dl; likely some portal hypertension. Gram stain and culture had No Growth Continue spironolactone and furosemide as above. (5) Cirrhosis of liver History of cirrhosis of the liver complicating his fluid retention. Complicated by related to history of heavy alcohol use. Status post paracentesis with 3 L removed. Hep C positive Will require outpatient GI follow up for treatment of HVC (6) Hernia, inguinal, right Scrotal sonogram revealed small bilateral bowel containing inguinal hernias. Small bilateral hydroceles; R possible loculated. Likely related to ascites (7) Constipation Resolved. KUB shows Severe Constipation Repeat KUB unchanged. Continue bowel protocol as outpatient Encourage ambulation. (8) Anemia Patient with chronic history of anemia; patient reports that he was supposed to have a GI procedure for repair of bleeding fistula last month but has not been unable to continue with plan to repeated admissions for CHF exacerbations. Recommend multivitamin with iron supplementation. Received 1 unit PRBC prior to discharge. Recommend follow-up CBC at next provider appointment. Patient is educated on warning signs of when to return to the emergency department. Physical Exam Vital Signs: Temp Pulse Resp BP Pulse Ox 98.2 F 79 22 H 109/52 L 98 02/06/20 16:50 02/06/20 16:50 02/06/20 16:50 02/06/20 16:50 02/06/20 16:50 Intake & Output 02/05/20 02/06/20 02/07/20 06:59 06:59 06:59 Intake Total 716 1464 932 Output Total 475 1700 Balance 241 -236 932 Weight 76.1 kg 72.3 kg General appearance: PRESENT: no acute distress, cooperative, well-developed, well-nourished Head exam: PRESENT: atraumatic, normocephalic Eye exam: PRESENT: conjunctiva pink, EOMI, PERRLA. ABSENT: scleral icterus Mouth exam: PRESENT: moist, tongue midline Respiratory exam: PRESENT: clear to auscultation rossy, symmetrical, unlabored, other - baseline oxygen requirement. ABSENT: rales, rhonchi, wheezes Cardiovascular exam: PRESENT: RRR. ABSENT: diastolic murmur, rubs, systolic murmur Vascular exam: PRESENT: normal capillary refill GI/Abdominal exam: PRESENT: normal bowel sounds, soft. ABSENT: distended, guarding, mass, organolmegaly, rebound, tenderness Rectal exam: PRESENT: deferred Gentrourinary exam: PRESENT: indwelling catheter Extremities exam: PRESENT: full ROM, +1 edema - BLE pitting edema. ABSENT: calf tenderness, clubbing, pedal edema Musculoskeletal exam: PRESENT: ambulatory Neurological exam: PRESENT: alert, awake, oriented to person, oriented to place, oriented to time, oriented to situation, CN II-XII grossly intact. ABSENT: motor sensory deficit Psychiatric exam: PRESENT: appropriate affect, normal mood. ABSENT: homicidal ideation, suicidal ideation Skin exam: PRESENT: dry, intact, warm. ABSENT: cyanosis, rash Results Laboratory Results: WBC 9.2 10^3/uL (4.0-10.5) 02/06/20 08:00 RBC 3.17 10^6/uL (4.35-5.55) L 02/06/20 08:00 Hgb 8.2 g/dL (13.5-17.0) L 02/06/20 08:00 Hct 24.7 % (37.9-51.0) L 02/06/20 08:00 MCV 78 fl (80-97) L 02/06/20 08:00 MCH 25.9 pg (27.0-33.4) L 02/06/20 08:00 MCHC 33.2 g/dL (32.0-36.0) 02/06/20 08:00 RDW 19.3 % (11.5-14.0) H 02/06/20 08:00 Plt Count 144 10^3/uL (150-450) L 02/06/20 08:00 Lymph % (Auto) 7.4 % (13-45) L 01/31/20 09:50 [place] % (Auto) 8.0 % (3-13) 01/31/20 09:50 Eos % (Auto) 1.0 % (0-6) 01/31/20 09:50 Baso % (Auto) 0.4 % (0-2) 01/31/20 09:50 Absolute Neuts (auto) 8.9 10^3/uL (1.7-8.2) H 01/31/20 09:50 Absolute Lymphs (auto) 0.8 10^3/uL (0.5-4.7) 01/31/20 09:50 Absolute Monos (auto) 0.9 10^3/uL (0.1-1.4) 01/31/20 09:50 Absolute Eos (auto) 0.1 10^3/uL (0.0-0.6) 01/31/20 09:50 Absolute Basos (auto) 0.0 10^3/uL (0.0-0.2) 01/31/20 09:50 Total Counted 100 01/24/20 06:50 Seg Neutrophils % 83.2 % (42-78) H 01/31/20 09:50 Seg Neuts % (Manual) 99 % (42-78) H 01/24/20 06:50 Lymphocytes % (Manual) 1 % (13-45) L 01/24/20 06:50 Monocytes % (Manual) 0 % (3-13) L 01/24/20 06:50 Eosinophils % (Manual) 0 % (0-6) 01/24/20 06:50 Basophils % (Manual) 0 % (0-2) 01/24/20 06:50 Abs Neuts (Manual) 9.2 10^3/uL (1.7-8.2) H 01/24/20 06:50 Abs Lymphs (Manual) 0.1 10^3/uL (0.5-4.7) L 01/24/20 06:50 Abs Monocytes (Manual) 0.0 10^3/uL (0.1-1.4) L 01/24/20 06:50 Absolute Eos (Manual) 0.0 10^3/uL (0.0-0.6) 01/24/20 06:50 Abs Basophils (Manual) 0.0 10^3/uL (0.0-0.2) 01/24/20 06:50 Toxic Granulation SLIGHT 01/24/20 06:50 Platelet Comment ADEQUATE 01/24/20 06:50 Hypochromasia SLIGHT 01/24/20 06:50 Poikilocytosis SLIGHT 01/24/20 06:50 Anisocytosis 1+ 01/24/20 06:50 Microcytosis SLIGHT 01/24/20 06:50 Ovalocytes 1+ 01/24/20 06:50 PT 14.9 SEC (11.4-15.4) 01/30/20 10:45 INR 1.17 01/30/20 10:45 APTT 31.8 SEC (23.5-35.8) 01/24/20 06:50 Sodium 132.2 mmol/L (137-145) L 02/06/20 06:05 Potassium 4.3 mmol/L (3.6-5.0) 02/06/20 06:05 Chloride 93 mmol/L (98-107) L 02/06/20 06:05 Carbon Dioxide 37 mmol/L (22-30) H 02/06/20 06:05 Anion Gap 2 (5-19) L 02/06/20 06:05 BUN 33 mg/dL (7-20) H 02/06/20 06:05 Creatinine 0.73 mg/dL (0.52-1.25) 02/06/20 06:05 Est GFR ( Amer) > 60 (>60) 02/06/20 06:05 Est GFR (MDRD) Non-Af > 60 (>60) 02/06/20 06:05 Glucose 101 mg/dL (75-110) 02/06/20 06:05 Lactic Acid 0.7 mmol/L (0.7-2.1) 01/24/20 07:40 Calcium 7.7 mg/dL (8.4-10.2) L 02/06/20 06:05 Total Bilirubin 0.3 mg/dL (0.2-1.3) 01/30/20 10:45 Direct Bilirubin 0.0 mg/dL (0.0-0.4) 01/30/20 10:45 Neonat Total Bilirubin Not Reportable 01/30/20 10:45 Neonat Direct Bilirubin Not Reportable 01/30/20 10:45 Neonat Indirect Bili Not Reportable 01/30/20 10:45 AST 52 U/L (17-59) 01/30/20 10:45 ALT 39 U/L (<50) 01/30/20 10:45 Alkaline Phosphatase 147 U/L (38-126) H 01/30/20 10:45 Troponin I 0.031 ng/mL 01/24/20 06:58 NT-Pro-B Natriuret Pep 6210 pg/mL (<125) H 01/30/20 10:45 Total Protein 5.5 g/dL (6.3-8.2) L 01/30/20 10:45 Albumin 2.7 g/dL (3.5-5.0) L 01/30/20 10:45 Urine Color YELLOW 02/05/20 14:25 Urine Appearance CLEAR 02/05/20 14:25 Urine pH 7.0 (5.0-9.0) 02/05/20 14:25 Ur Specific [place] 1.011 02/05/20 14:25 Urine Protein NEGATIVE mg/dL (NEGATIVE) 02/05/20 14:25 Urine Glucose (UA) NEGATIVE mg/dL (NEGATIVE) 02/05/20 14:25 Urine Ketones NEGATIVE mg/dL (NEGATIVE) 02/05/20 14:25 Urine Blood NEGATIVE (NEGATIVE) 02/05/20 14:25 Urine Nitrite NEGATIVE (NEGATIVE) 02/05/20 14:25 Urine Bilirubin NEGATIVE (NEGATIVE) 02/05/20 14:25 Urine Urobilinogen NEGATIVE mg/dL (<2.0) 02/05/20 14:25 Ur Leukocyte Esterase NEGATIVE (NEGATIVE) 02/05/20 14:25 Urine WBC (Auto) 1 /HPF 02/05/20 14:25 Urine RBC (Auto) 1 /HPF 02/05/20 14:25 U Hyaline Cast (Auto) 7 /LPF 02/05/20 14:25 Urine RBC NONE SEEN /HPF 01/24/20 08:00 Urine WBC NONE SEEN /HPF 01/24/20 08:00 Ur Squamous Epith Cells FEW /HPF 01/24/20 08:00 Squamous Epi Cells Auto <1 /HPF 02/05/20 14:25 Urine Mucus (Auto) RARE /LPF 02/05/20 14:25 Urine Ascorbic Acid NEGATIVE (NEGATIVE) 02/05/20 14:25 Fluid Type PERITONEAL 01/31/20 11:15 Fluid Source ASCITES 01/31/20 11:15 Fluid Color STRAW 01/31/20 11:15 Fluid Appearance CLEAR 01/31/20 11:15 Fluid Viscosity LIQUID 01/31/20 11:15 Fluid WBC 528 /uL 01/31/20 11:15 Fluid RBC 341 /uL 01/31/20 11:15 Fluid Seg Neutrophils 83 % 01/31/20 11:15 Fluid Lymphocytes 15 % 01/31/20 11:15 Fluid Monocytes 2 % 01/31/20 11:15 Fluid Eosinophils 0 % 01/31/20 11:15 Fluid Basophils 0 % 01/31/20 11:15 Fluid Glucose 140 mg/dL (.) 01/31/20 11:15 Fluid Albumin 0.5 g/dL (Not Estab.) 01/31/20 11:15 Fluid LDH 69 IU/L (.) 01/31/20 11:15 COVID-19 Source Cancelled 01/24/20 08:14 COVID-19 (KADE) Cancelled 01/24/20 08:14 Hepatitis A IgM Ab Negative (Negative) 02/01/20 05:58 Hep Bs Antigen Negative (Negative) 02/01/20 05:58 Hep B Core IgM Ab Negative (Negative) 02/01/20 05:58 Hepatitis C Antibody >11.0 s/co ratio (0.0-0.9) H 02/01/20 05:58 SARS-CoV-2 (PCR) NEGATIVE (NEGATIVE) 01/24/20 08:14 Blood Type O POSITIVE 02/06/20 08:00 Antibody Screen NEGATIVE 02/06/20 08:00 Crossmatch See Detail 02/06/20 08:00 01/24/20 01/27/20 01/30/20 06:58 06:10 10:45 Troponin I 0.031 NT-Pro-B Natriuret Pep 77092 H 16915 H 6210 H Impressions: Chest X-Ray 01/24/20 03:27 IMPRESSION: Cardiomegaly. Low lung volumes with mild interstitial prominence likely reflecting interstitial edema. Tiny effusions and/or pleural thickening copyright 2011 [employer]- All Rights Reserved Chest X-Ray 01/24/20 06:43 IMPRESSION: No pneumothorax following right IJ central line placement. Chest X-Ray 01/30/20 00:00 IMPRESSION: STABLE APPEARANCE OF THE CHEST. Scrotum Ultrasound 01/30/20 00:00 IMPRESSION: 1. Small bilateral bowel containing inguinal hernias. 2. Small bilateral hydroceles. Additional more focal collection within the right inguinal canal measuring approximately 8.5 x 7.1 x 6.6 cm, possibly loculated right-sided hydrocele. This has increased in size compared to prior CT and ultrasound. Diffuse bilateral scrotal wall thickening. Recommend cor relation with physical exam. 3. Grossly unremarkable testicular and epididymal parenchymal bilaterally. Paracentesis Ultrasound 01/31/20 00:00 IMPRESSION: SUCCESSFUL ULTRASOUND GUIDED PARACENTESIS. KUB X-Ray 02/01/20 00:00 IMPRESSION: Severe constipation. This has progressed when compared to November. SPECT Scan-Cardiac NM 02/01/20 08:00 IMPRESSION: No perfusion defects are identified. Dilated left ventricle with global hypokinesia. Markedly reduced ejection fraction measuring 22%. KUB X-Ray 02/04/20 07:00 IMPRESSION: Persistent fecal impaction. Plan Plan of Treatment: Patient is discharged in stable condition. Follow up with primary care within 1 week. Follow up with Dr. Comer next week. Follow up with GI as soon as possible; discuss Hepatitis C treatment and our recommendation to have a colonoscopy due to anemia. Follow up with Urology within 2-3 week for urinary retention and aguilar catheter removal. Take medications as prescribed. Do NOT drink more than 2L of fluid a day. Eat a low salt diet. Do not smoke. Wear LifeVest at all times. Return to the emergency department as needed for concerning symptoms. Time Spent: Greater than 30 Minutes Stroke Is this a Stroke Patient?: No Acute Heart Failure - Is this a Heart Failure Patient?: Yes Documentation of LVEF assessment?: Yes LVEF: LVEF Less Than or Equal to 40% Anticoagulant Therapy: N/A Discharged on Evidence-Based Beta Blockers: Yes Discharged on ARNI?: Yes Discharged on ARB?: N/A-Discharged on ARNI Discharged on ACEI?: N/A Discharged on ARNI For LVEF <35%, discharged on Aldosterone Antagonist?: Yes Follow-up Appointment scheduled within 7 days?: Yes
[2020-02-06 19:09] LABS: ABSOLUTE LYMPHOCYTES# (MANUAL) 0.3 10^3/uL (0.5-4.7); ABSOLUTE MONOCYTES # (MANUAL) 0.6 10^3/uL (0.1-1.4); BASOPHILS % (MANUAL) 0 % (0-2); EOSINOPHILS % (MANUAL) 0 % (0-6); LYMPHOCYTES % (MANUAL) 3 % (13-45); MONOCYTES % (MANUAL) 6 % (3-13); SEGMENTED NEUTROPHILS % (MAN) 91 % (42-78); TOTAL CELLS COUNTED 100
[2020-02-06 19:10] LABS: TOXIC GRANULATION 1+
[2020-02-06 19:11] LABS: ANISOCYTOSIS 2+; OVALOCYTES 1+; PLATELET COMMENT ADEQUATE; POIKILOCYTOSIS 1+
== END 2020-02-06 18:30 | disposition home or self-care (01) | DRG 291 ==
LOC: ER 03:19 → EH 13:11 → 3S 17:19 → OBSVTOIN 01-25 14:27
PROVIDERS: ADMIT Internal Medicine; ATTEND Registered Nurse
PROC: 02HV33Z Insertion of Infusion Device into Superior Vena Cava, Percutaneous Approach (ICD-10-PCS; 2020-01-24)
PROC: 0W9G3ZX Drainage of Peritoneal Cavity, Percutaneous Approach, Diagnostic (ICD-10-PCS; principal; 2020-01-31)
PROC: 30233N1 Transfusion of Nonautologous Red Blood Cells into Peripheral Vein, Percutaneous Approach (ICD-10-PCS; 2020-02-06)
DX: I11.0 Hypertensive heart disease with heart failure (principal); J96.21 Acute and chronic respiratory failure with hypoxia; J44.1 Chronic obstructive pulmonary disease with (acute) exacerbation; K70.31 Alcoholic cirrhosis of liver with ascites; E46 Unspecified protein-calorie malnutrition; K76.6 Portal hypertension; I50.43 Acute on chronic combined systolic (congestive) and diastolic (congestive) heart failure; I25.2 Old myocardial infarction; I25.10 Atherosclerotic heart disease of native coronary artery without angina pectoris; I87.8 Other specified disorders of veins; E03.9 Hypothyroidism, unspecified; I42.0 Dilated cardiomyopathy; G89.4 Chronic pain syndrome; K44.9 Diaphragmatic hernia without obstruction or gangrene; K40.90 Unilateral inguinal hernia, without obstruction or gangrene, not specified as recurrent; B19.20 Unspecified viral hepatitis C without hepatic coma; F43.10 Post-traumatic stress disorder, unspecified; D64.9 Anemia, unspecified; R33.9 Retention of urine, unspecified; K59.00 Constipation, unspecified; F17.200 Nicotine dependence, unspecified, uncomplicated; Z90.49 Acquired absence of other specified parts of digestive tract; Z99.81 Dependence on supplemental oxygen; Z82.49 Family history of ischemic heart disease and other diseases of the circulatory system; Z79.51 Long term (current) use of inhaled steroids; Z79.899 Other long term (current) drug therapy; Z88.0 Allergy status to penicillin; Z88.6 Allergy status to analgesic agent; Z82.5 Family history of asthma and other chronic lower respiratory diseases; Z91.11 Patient's noncompliance with dietary regimen; Z91.19 Patient's noncompliance with other medical treatment and regimen
CPT/HCPCS: 36415; 36430; 49083; 71045; 71046; 74018; 76870; 78451; 80048; 80053; 80074; 80076; 81001; 82042; 82945; 83605; 83615; 83880; 84484; 85025; 85027; 85610; 85730; 86850; 86900; 86901; 86920; 87070; 87075; 87077; 87186; 87205; 87635; 89050; 93005; 93010; 93017; 93976; 94640; 96374; 96375; 99285; A9500; G0378; J0696; J1160; J1265; J1630; J1642; J1650; J1940; J2270; J2785; J3490; J7512; J7620; P9016; Q9969

== ENCOUNTER 2020-02-07 23:04 | Emergency (ER) | payer OTHER, MEDICARE ==
[2020-02-07 23:34] LABS: ABSOLUTE BASOPHILS # (AUTO) 0.1 10^3/uL (0.0-0.2); ABSOLUTE EOSINOPHILS # (AUTO) 0.2 10^3/uL (0.0-0.6); ABSOLUTE LYMPHOCYTES (AUTO) 0.7 10^3/uL (0.5-4.7); ABSOLUTE MONOCYTES (AUTO) 0.6 10^3/uL (0.1-1.4); ABSOLUTE NEUT (AUTO) 5.2 10^3/uL (1.7-8.2); BASOPHILS % (AUTO) 0.9 % (0-2); EOSINOPHILS % (AUTO) 2.8 % (0-6); LYMPHOCYTES % (AUTO) 10.4 % (13-45); MEAN CORPUSCULAR HEMOGLOBIN 26.3 pg (27.0-33.4); MEAN CORPUSCULAR HGB CONC 33.3 g/dL (32.0-36.0); MEAN CORPUSCULAR VOLUME 79 fl (80-97); MONOCYTES % (AUTO) 8.5 % (3-13); PLATELET COUNT 159 10^3/uL (150-450); SEGMENTED NEUTROPHILS % (AUTO) 77.4 % (42-78); TOTAL CELLS COUNTED % (AUTO) 100 %; WHITE BLOOD COUNT 6.7 10^3/uL (4.0-10.5)
[2020-02-07 23:37] LABS: ALBUMIN 3.1 g/dL (3.5-5.0); ALKALINE PHOSPHATASE 171 U/L (38-126); ASPARTATE AMINO TRANSFERASE 52 U/L (17-59); BILIRUBIN,DIRECT 0.1 mg/dL (0.0-0.4); BILIRUBIN,TOTAL 0.4 mg/dL (0.2-1.3); BLOOD UREA NITROGEN 25 mg/dL (7-20); CALCIUM 8.2 mg/dL (8.4-10.2); CHLORIDE 98 mmol/L (98-107); CREATINE KINASE 24 U/L (55-170); GLUCOSE 92 mg/dL (75-110); POTASSIUM 4.5 mmol/L (3.6-5.0); TOTAL PROTEIN 6.4 g/dL (6.3-8.2)
--- NOTE | 2020-02-07 23:39 | ER Document Report ---
ED General - General Chief Complaint: Shortness Of Breath Stated Complaint: SHORTNESS OF BREATH Time Seen by Provider: 02/07/20 23:37 Primary Care Provider: GENNY ZARCO MD [Primary Care Provider] - Follow up as needed TRAVEL OUTSIDE OF THE [place] IN LAST 30 DAYS: No - HPI Associated symptoms: Shortness of breath, Other - Leg Swelling / Edema Exacerbated by: Other - ambulation, palpation of swollen areas of legs Similar symptoms previously: Yes - chronically Recently seen / treated by doctor: Yes - patient was just DCed yesterday from [place] Notes: 69 year old male with a history of CHF (EF of 15-20%), CAD, HTN, PVD, COPD on 3L of O2, Cirrhosis, Hypothyroidism who was just discharged from this hospital yesterday here in the ER for swelling of his legs and abdomen, pain in his legs, and shortness of breath which the patient started as soon as he got home. The patient says he had his medications changed around and he could not afford the new medications he was prescribed. The patient says the [facility] is supposed to be sending the medications to the Patient but they still have not done so. Looking back through his previous admission, the patient apparently was admitted most of January and at one point needed pressors while getting diuresed. - Related Data Allergies/Adverse Reactions: vancomycin Allergy (Unknown, Verified 02/07/20 23:14) azithromycin Allergy (Verified 02/07/20 23:14) hydrocodone Allergy (Verified 02/07/20 23:14) Penicillins Allergy (Verified 02/07/20 23:14) acetaminophen Adverse Reaction (Verified 02/07/20 23:14) ketorolac [From Toradol] Adverse Reaction (Verified 02/07/20 23:14) Nausea Past Medical History - General Information source: Patient - Social History Smoking Status: Current Every Day Smoker Frequency of alcohol use: Occasional Drug Abuse: None Lives with: Alone Family History: CAD, COPD, Hypertension, Malignancy Patient has suicidal ideation: No Patient has homicidal ideation: No - Past Medical History Cardiac Medical History: Reports: Hx Congestive Heart Failure, Hx Coronary Artery Disease, Hx Heart Attack, Hx Hypertension, Hx Peripheral Vascular Disease - Chronic venous stasis Denies: Hx Atrial Fibrillation, Hx DVT, Hx Hypercholesterolemia, Hx Pulmonary Embolism Pulmonary Medical History: Reports: Hx Asthma, Hx Bronchitis, Hx COPD, Hx Pneumonia, Hx Respiratory Failure Neurological Medical History: Denies: Hx Seizures Endocrine Medical History: Reports: Hx Hypothyroidism. Denies: Hx Diabetes Mellitus Type 1, Hx Diabetes Mellitus Type 2, Hx Hyperthyroidism GI Medical History: Reports: Hx Cirrhosis - Alcoholic cirrhosis, Hx Hiatal Hernia. Denies: Hx Crohn's Disease, Hx Hepatitis, Hx Ulcerative Colitis Musculoskeletal Medical History: Denies Hx Arthritis, Denies Hx Gout Skin Medical History: Denies Hx Eczema, Denies Hx Psoriasis Psychiatric Medical History: Reports: Hx Post Traumatic Stress Disorder Denies: Hx Depression Infectious Medical History: Denies: Hx Hepatitis Past Surgical History: Reports: Hx Abdominal Surgery, Hx Cholecystectomy, Hx Orthopedic Surgery - Left knee surgery, left wrist surgery, Other - Gallbladder - Immunizations Immunizations up to date: Yes Hx Diphtheria, Pertussis, Tetanus Vaccination: Yes Hx Pneumococcal Vaccination: 09/14/16 Review of Systems - Review of Systems Constitutional: No symptoms reported EENT: No symptoms reported Physical Exam - Vital signs Vitals: Pulse Ox 99 02/07/20 23:06 - Notes Notes: GENERAL: Chronically ill appearing. Well-nourished and in no acute distress. HEAD: Atraumatic, normocephalic. EYES: Pupils equal round and reactive to light, extraocular movements intact, sclera anicteric, conjunctiva are normal. ENT: External ears normal, nares patent, oropharynx clear without exudates. Moist mucous membranes. NECK: Normal range of motion, supple without lymphadenopathy or JVD. LUNGS: Breath sounds clear to auscultation bilaterally and equal. No wheezes rales or rhonchi. HEART: Regular rate and rhythm without murmurs, rubs or gallops. ABDOMEN: Soft, nontender, normoactive bowel sounds. No guarding, no rebound. No masses appreciated. EXTREMITIES: Mild edema of lower legs to mid coyle with some likely chronic skin changes. Normal range of motion. No clubbing or cyanosis. NEUROLOGICAL: Cranial nerves II through XII grossly intact. Normal speech, normal gait. PSYCH: Normal mood, normal affect. SKIN: Warm, Dry, normal turgor, no rashes or lesions noted. Course - Re-evaluation Re-evalutation: 02/08/20 02:39 The patient has chronic heart failure and chronic pain. His BNP is actually down from his most recent admission (DCed yesterday). Patient is complaining of pain in his swollen legs and abdomen but on exam he has only mild edema and mild skin changes which come with edema. Patient asked for opiate pain medications several times. He was offered his home Tramadol dose but refused. Patient DCed and told to follow up with his PCP and [facility]. - Vital Signs Vital signs: Temp Pulse Resp BP Pulse Ox 98.2 F 110 H 14 101/59 L 98 02/07/20 23:14 02/07/20 23:14 02/08/20 02:15 02/08/20 02:15 02/08/20 02:15 - Laboratory Result Diagrams: 02/07/20 23:08 02/07/20 23:08 Laboratory results interpreted by me: 02/07/20 02/07/20 02/07/20 23:08 23:08 23:08 RBC 3.80 L Hgb 10.0 L Hct 30.0 L MCV 79 L MCH 26.3 L RDW 19.0 H Lymph % (Auto) 10.4 L Sodium 133.1 L BUN 25 H Calcium 8.2 L Alkaline Phosphatase 171 H Creatine Kinase 24 L NT-Pro-B Natriuret Pep 2540 H Albumin 3.1 L - Diagnostic Test Radiology reviewed: Image reviewed, Reports reviewed - EKG Interpretation by Me EKG shows normal: Sinus rhythm, Intervals, QRS Complexes Rate: Normal Rhythm: NSR [place]/QRS: Left axis deviation Additional EKG results interpreted by me: 02/08/20 00:25 T wave inversion in aVR Discharge - Discharge Clinical Impression: Heart failure Qualifiers: Heart failure type: unspecified Heart failure chronicity: chronic Qualified Code(s): I50.9 - Heart failure, unspecified Chronic pain Qualifiers: Chronic pain type: chronic pain syndrome Qualified Code(s): G89.4 - Chronic pain syndrome Cirrhosis Qualifiers: Hepatic cirrhosis type: other cirrhosis Qualified Code(s): K74.69 - Other cirrhosis of liver Condition: Stable Disposition: HOME, SELF-CARE Instructions: Cirrhosis ([facility]), Congestive Heart Failure ([facility]), Edema, Peripheral ([facility]) Additional Instructions: Follow up with your [facility] and Primary Care Doctor. You can take your old lasix medication as previously prescribed until [facility]. Speak with your [facility] about going back on Lasix shelter once you [facility]. Referrals: GENNY ZARCO MD [Primary Care Provider] - Follow up as needed
[2020-02-07 23:42] LABS: ANION GAP 5 (5-19); CARBON DIOXIDE 30 mmol/L (22-30)
[2020-02-07] MEDS ORDERED: FUROSEMIDE INJ/PF 20 MG/2 ML SDV IV ONE (23:56)
[2020-02-08 00:17] LABS: TROPONIN I 0.026 ng/mL
[2020-02-08] MEDS ORDERED: TRAMADOL HCL 50 MG TABLET PO ONE (00:34)
--- NOTE | 2020-02-08 01:56 | RADIOLOGY REPORT (SQ) ---
EXAM DESCRIPTION: [facility]: XR CHEST 1 VIEW CLINICAL HISTORY: 69 years Male; eval for SOB; COMPARISON: 01/24/2020 FINDINGS: Lungs: Lungs are clear, with no focal infiltrate, pneumothorax, or pleural effusion. Mediastinum: Mediastinum is within normal limits for this positioning. Mediastinum is somewhat obscured due to overlying external devices. Bones: Left clavicular internal fixation plate is noted. No acute bone findings. IMPRESSION: 1. No acute pulmonary findings.
[2020-02-08 03:07] VITALS: BP 97/70
--- NOTE | 2020-02-08 07:32 | EKG REPORT ---
SEVERITY:- OTHERWISE NORMAL ECG - SINUS TACHYCARDIA LEFT AXIS DEVIATION : Confirmed by: Edu Baker MD 08-Feb-2020 07:31:59
== END 2020-02-08 04:08 | disposition home or self-care (01) ==
LOC: ER 23:04
DX: K74.69 Other cirrhosis of liver (principal); G89.4 Chronic pain syndrome; R06.02 Shortness of breath; M79.89 Other specified soft tissue disorders; I50.9 Heart failure, unspecified; I11.0 Hypertensive heart disease with heart failure; I25.10 Atherosclerotic heart disease of native coronary artery without angina pectoris; J44.9 Chronic obstructive pulmonary disease, unspecified; Z99.81 Dependence on supplemental oxygen; Z88.8 Allergy status to other drugs, medicaments and biological substances; Z88.0 Allergy status to penicillin; Z88.1 Allergy status to other antibiotic agents; F17.200 Nicotine dependence, unspecified, uncomplicated
CPT/HCPCS: 93005; 99285; 96374; 36415; 82553; 82550; 85025; 80053; 84484; 83880; 71045; 93010; J1940

== ENCOUNTER 2020-03-24 22:18 | Inpatient (IN) | payer OTHER, MEDICARE ==
[2020-03-24] MEDS ORDERED: MAGNESIUM SULFATE/D5W 2 GM/200 ML RTUPB IV ONE (22:35)
[2020-03-24] MEDS: MAGNESIUM SULFATE/D5W 1 GM/100 ML RTUPB IV SCH (22:50)
[2020-03-24] MEDS ORDERED: TRAMADOL HCL 50 MG TABLET PO ONE (22:57)
--- NOTE | 2020-03-24 23:36 | RADIOLOGY REPORT (SQ) ---
EXAM DESCRIPTION: XR CHEST 1 VIEW COMPLETED DATE/TME: 03/24/2020 22:51 CLINICAL HISTORY: dyspnea COMPARISON: 02/08/2020 FINDINGS: Single frontal view of the chest. Cardiomediastinal silhouette: Cardiac megaly. Atherosclerotic calcification of the thoracic aorta. Lungs: Pulmonary vascular congestion. No pneumothorax. Mild bibasilar opacities. Possible small left pleural effusion. Bones: Degenerative change of the spine. Postoperative change of the left clavicle. Upper abdomen: No abnormality identified. IMPRESSION: 1. Cardiomegaly with pulmonary vascular congestion. 2. Bibasilar opacities may be related to pulmonary edema however atelectasis or bilateral pneumonic process could contribute to this appearance. Possible small bilateral pleural effusions.
[2020-03-24 23:39] LABS: VENOUS BLOOD BASE EXCESS 3.4 mmol/L; VENOUS BLOOD PCO2 62.4 mmHg (35-63); VENOUS BLOOD PH 7.31 (7.30-7.42)
[2020-03-24 23:43] LABS: ABSOLUTE BASOPHILS # (AUTO) 0.1 10^3/uL (0.0-0.2); ABSOLUTE EOSINOPHILS # (AUTO) 1.2 10^3/uL (0.0-0.6); ABSOLUTE LYMPHOCYTES (AUTO) 1.9 10^3/uL (0.5-4.7); ABSOLUTE MONOCYTES (AUTO) 0.8 10^3/uL (0.1-1.4); ABSOLUTE NEUT (AUTO) 4.2 10^3/uL (1.7-8.2); BASOPHILS % (AUTO) 1.2 % (0-2); EOSINOPHILS % (AUTO) 14.6 % (0-6); HEMATOCRIT 36.1 % (37.9-51.0); HEMOGLOBIN 11.6 g/dL (13.5-17.0); LYMPHOCYTES % (AUTO) 23.7 % (13-45); MEAN CORPUSCULAR HEMOGLOBIN 25.6 pg (27.0-33.4); MEAN CORPUSCULAR VOLUME 80 fl (80-97); MONOCYTES % (AUTO) 9.3 % (3-13); PLATELET COUNT 337 10^3/uL (150-450); RED BLOOD COUNT 4.52 10^6/uL (4.35-5.55); RED CELL DISTRIBUTION WIDTH 18.5 % (11.5-14.0); SEGMENTED NEUTROPHILS % (AUTO) 51.2 % (42-78); TOTAL CELLS COUNTED % (AUTO) 100 %; WHITE BLOOD COUNT 8.2 10^3/uL (4.0-10.5)
[2020-03-24 23:47] LABS: ALBUMIN 3.3 g/dL (3.5-5.0); ALKALINE PHOSPHATASE 161 U/L (38-126); ANION GAP 8 (5-19); ASPARTATE AMINO TRANSFERASE 28 U/L (17-59); BILIRUBIN,DIRECT 0.2 mg/dL (0.0-0.4); BILIRUBIN,TOTAL 0.7 mg/dL (0.2-1.3); BLOOD UREA NITROGEN 16 mg/dL (7-20); CARBON DIOXIDE 29 mmol/L (22-30); CHLORIDE 96 mmol/L (98-107); GLUCOSE 120 mg/dL (75-110); POTASSIUM 3.9 mmol/L (3.6-5.0); TOTAL PROTEIN 7.2 g/dL (6.3-8.2)
[2020-03-25 00:01] LABS: PROTHROMBIN TIME 15.3 SEC (11.4-15.4)
[2020-03-25] MEDS ORDERED: FUROSEMIDE INJ/PF 20 MG/2 ML SDV IV ONE (00:02)
--- NOTE | 2020-03-25 00:19 | ER Document Report ---
Entered by ALEXUS MACEDO SCRIBE 03/24/20 [id number] Acting as scribe for:KAMILAH OLMSTEAD IV, MD ED General - General Chief Complaint: Shortness Of Breath Stated Complaint: SHORTNESS OF BREATH Time Seen by Provider: 03/24/20 22:34 Primary Care Provider: GENNY ZARCO MD [Primary Care Provider] - Follow up as needed Mode of Arrival: Medic Information source: Patient, Emergency Med Personnel Notes: This 70 year old male patient with a history of CHF and COPD brought in by EMS presents to the ED today with complaints of dyspnea and shortness of breath that started just prior to arrival. Per EMS, patient's O2 sat was 87% on RA, so they administered x1 A&A treatment and 125 mg Solumedrol IM. Patient admits that he continues to smoke, but denies ETOH use. He notes that he was admitted here in January for CHF exacerbation and acute/chronic respiratory failure. He also notes right-sided groin pain due to an inguinal hernia. TRAVEL OUTSIDE OF THE [place] IN LAST 30 DAYS: No - Related Data Allergies/Adverse Reactions: vancomycin Allergy (Unknown, Verified 02/07/20 23:14) azithromycin Allergy (Verified 02/07/20 23:14) hydrocodone Allergy (Verified 02/07/20 23:14) Penicillins Allergy (Verified 02/07/20 23:14) acetaminophen Adverse Reaction (Verified 02/07/20 23:14) ketorolac [From Toradol] Adverse Reaction (Verified 02/07/20 23:14) Nausea Past Medical History - General Information source: Patient, [facility] Records - Social History Smoking Status: Current Every Day Smoker Cigarette use (# per day): Yes Chew tobacco use (# tins/day): No Smoking Education Provided: No Family History: Reviewed & Not Pertinent, CAD, COPD, Hypertension, Malignancy Patient has suicidal ideation: No Patient has homicidal ideation: No - Past Medical History Cardiac Medical History: Reports: Hx Congestive Heart Failure, Hx Coronary Artery Disease, Hx Heart Attack, Hx Hypertension, Hx Peripheral Vascular Disease - Chronic venous stasis Pulmonary Medical History: Reports: Hx Asthma, Hx Bronchitis, Hx COPD, Hx Pneumonia, Hx Respiratory Failure Endocrine Medical History: Reports: Hx Hypothyroidism GI Medical History: Reports: Hx Cirrhosis - Alcoholic cirrhosis, Hx Hiatal Hernia Psychiatric Medical History: Reports: Hx Post Traumatic Stress Disorder Past Surgical History: Reports: Hx Abdominal Surgery, Hx Cholecystectomy, Hx Orthopedic Surgery - Left knee surgery, left wrist surgery - Immunizations Immunizations up to date: Yes Hx Diphtheria, Pertussis, Tetanus Vaccination: Yes Hx Pneumococcal Vaccination: 09/14/16 Review of Systems - Review of Systems Constitutional: No symptoms reported EENT: No symptoms reported Cardiovascular: See HPI, Dyspnea Respiratory: See HPI, Short of breath Gastrointestinal: No symptoms reported Genitourinary: No symptoms reported Male Genitourinary: No symptoms reported Musculoskeletal: See HPI, Muscle pain - Groin Skin: No symptoms reported Hematologic/Lymphatic: No symptoms reported Neurological/Psychological: No symptoms reported -: Yes All other systems reviewed and negative Physical Exam - Vital signs Vitals: Resp Pulse Ox 35 H 98 03/24/20 22:26 03/24/20 22:26 - General General appearance: Alert In distress: None - HEENT Head: Normocephalic, Atraumatic Eyes: Normal Pupils: PERRL - Respiratory Respiratory status: No respiratory distress - O2 via NC Chest status: Nontender Breath sounds: Normal Chest palpation: Normal - Cardiovascular Rhythm: Regular, Tachycardia Heart sounds: Normal auscultation Murmur: No Friction rub: No Gallop: None auscultated - Abdominal Inspection: Normal Distension: No distension Bowel sounds: Normal Tenderness: Nontender - Abdomen soft Organomegaly: No organomegaly - Back Back: Normal, Nontender - Extremities General upper extremity: Normal inspection General lower extremity: Edema - +1 pitting edema noted to bilateral lower extremities - Neurological Neuro grossly intact: Yes Orientation: AAOx4 Germaine Coma Scale Eye Opening: Spontaneous Germaine Coma Scale Verbal: Oriented Germaine Coma Scale Motor: Obeys Commands [place] Coma Scale Total: 15 - Psychological Associated symptoms: Normal affect, Normal mood - Skin Skin Temperature: Warm Skin Moisture: Dry Skin Color: Normal Course - Vital Signs Vital signs: Temp Pulse Resp BP Pulse Ox 98.0 F 21 H 113/68 100 03/24/20 23:18 03/24/20 23:01 03/24/20 23:00 03/24/20 23:01 - Laboratory Result Diagrams: 03/24/20 22:29 03/24/20 22:29 Laboratory results interpreted by me: 03/24/20 03/24/20 03/24/20 22:29 22:29 22:29 Hgb 11.6 L Hct 36.1 L MCH 25.6 L RDW 18.5 H Eos % (Auto) 14.6 H Absolute Eos (auto) 1.2 H Sodium 132.9 L Chloride 96 L Glucose 120 H Lactic Acid 2.6 H Calcium 8.0 L Alkaline Phosphatase 161 H NT-Pro-B Natriuret Pep Albumin 3.3 L 03/24/20 22:29 Hgb Hct MCH RDW Eos % (Auto) Absolute Eos (auto) Sodium Chloride Glucose Lactic Acid Calcium Alkaline Phosphatase NT-Pro-B Natriuret Pep 69275 H Albumin - Diagnostic Test Radiology reviewed: Reports reviewed - EKG Interpretation by Me Additional EKG results interpreted by me: 03/25/20 00:16 EKG obtained on 03/24/2020 at 2337 hrs. was interpreted by this MD. Findings: Sinus tachycardia, rate 114, normal axis, P waves preceding QRS complexes, QRS complexes appear narrow, ST segments are nonspecific. Impression: Sinus ta chycardia with nonspecific ST segments. - Consults dr. emily garsia Time consulted: 00:07 - dr garsia agreed to admit patient Reason for consultation: 03/25/20 00:18 chf exacerbation Discharge - Discharge Clinical Impression: CHF exacerbation Qualifiers: Heart failure type: systolic Qualified Code(s): I50.23 - Acute on chronic systolic (congestive) heart failure Condition: Stable Disposition: ADMITTED INPATIENT Admitting Provider: Mata (Hospitalist) Unit Admitted: Telemetry Referrals: GENNY ZARCO MD [Primary Care Provider] - Follow up as needed I personally performed the services described in the documentation, reviewed and edited the documentation which was dictated to the scribe in my presence, and it accurately records my words and actions.
[2020-03-25] MEDS ORDERED: ONDANSETRON HCL INJ/PF 4 MG/2 ML SDV IV PRN (00:49)
[2020-03-25] MEDS ORDERED: MAG HYDROX/AL HYDROX/SIMETH SUSP 30 ML UDCUP PO PRN (00:49)
[2020-03-25] MEDS ORDERED: MAGNESIUM HYDROXIDE SUSP 30 ML UDCUP PO PRN (00:49)
[2020-03-25] MEDS ORDERED: GUAIFENESIN SYRP 200 MG/10 ML UDC PO PRN (00:57)
[2020-03-25] MEDS ORDERED: NICOTINE 21 MG/24 HR PATCH.TD24 TD PRN (00:57)
[2020-03-25] MEDS ORDERED: MELATONIN 5 MG TABLET PO PRN (00:57)
[2020-03-25] MEDS ORDERED: DOPAMINE HCL/DEXTROSE 5%-WATER 800 MG/250 ML RTUINJ IV PRN (00:59)
[2020-03-25] MEDS: MAGNESIUM SULFATE/D5W 1 GM/100 ML RTUPB IV SCH (00:59)
[2020-03-25] MEDS: LEVALBUTEROL HCL NEB 0.63 MG/3 ML AMPUL NEB PRN ×2 (01:50→04:08)
[2020-03-25 02:28] LABS: CREATINE KINASE MB 1.94 ng/mL (<4.55); TROPONIN I 0.051 ng/mL
[2020-03-25] MEDS: MORPHINE SULFATE 10 MG/ML INJ IV PRN ×5 (02:43→21:56)
--- NOTE | 2020-03-25 03:46 | PDOC H&P ---
History of Present Illness Admission Date/PCP: 03/25/2020 00:16 GENNY ZARCO MD Patient complains of: Dyspnea History of Present Illness: DURAN TELLES is a 70 year old male who presented the emergency room with acute dyspnea. He admits suddenly developing severe dyspnea on the evening of 03/24/2020. His dyspnea was worsened with any activity or exertion. He immediately called EMS to be transported to the hospital. He denies other associated or accompanying signs and symptoms. He admits numerous prior similar episodes related to his COPD and CHF. He admits that he continues to smoke cigarettes. He has not identified any additional aggravating or ameliorating factors for his dyspnea. He was noted to have an O2 sat of 87% on room air upon EMS arrival. He was provided with supplemental oxygen and taken to the emergency room. In the ER he was found to have continued need for supplemental oxygen in order to maintain adequate O2 saturation and was noted to have evidence of pulmonary edema on his chest x-ray. He was subsequently admitted to the hospital for further evaluation treatment Past Medical History Cardiac Medical History: Reports: Congestive Heart Failure, Coronary Artery Disease, Myocardial Infarction, Hypertension, Peripheral Vascular Disease - Chronic venous stasis Denies: Atrial Fibrillation, DVT, Hyperlipidema, Pulmonary Embolism Pulmonary Medical History: Reports: Asthma, Bronchitis, Chronic Obstructive Pulmonary Disease (COPD), Pneumonia, Respiratory Failure EENT Medical History: Denies: Cataracts, Ears - Hearing aids Neurological Medical History: Denies: Hemorrhagic CVA, Ischemic CVA, Seizures Endocrine Medical History: Reports: Hypothyroidism Denies: Diabetes Mellitus Type 1, Diabetes Mellitus Type 2, Hyperthyroidism Renal/ Medical History: Reports: Other - Chronic right inguinal hernia Denies: Chronic Kidney Disease, Nephrolithiasis Malignancy Medical History: Reports: None GI Medical History: Reports: Cirrhosis - Alcoholic cirrhosis, Hiatal Hernia, Other - Chronic right inguinal hernia Denies: Crohn's Disease, Hepatitis, Ulcerative Colitis Musculoskeltal Medical History: Denies: Arthritis, Gout Skin Medical History: Denies: Eczema, Psoriasis Psychiatric Medical History: Reports: Alcohol Dependency, Post Traumatic Stress Disorder, Tobacco Dependency Denies: Depression, Substance Abuse Traumatic Medical History: Reports: None Hematology: Reports: Anemia - Chronic Denies: Bleeding Tendencies Infectious Medical History: Reports: None Past Surgical History Past Surgical History: Reports: Cholecystectomy, Orthopedic Surgery - Left knee surgery, left wrist surgery Social History Information Source: Patient Lives with: Alone Smoking Status: Current Every Day Smoker Electronic Cigarette use?: No Frequency of Alcohol Use: None - History of alcoholism with heavy alcohol usage until earlier this year Hx Recreational Drug Use: No Drugs: None Hx Prescription Drug Abuse: No - Advance Directive Resuscitation Status: Full Code Surrogate healthcare decision maker:: Angelika Sheets Family History Family History: CAD, COPD, Hypertension, Malignancy Parental Family History Reviewed: Yes Children Family History Reviewed: No Sibling(s) Family History Reviewed.: Yes Medication/Allergy Home Medications: Folic Acid [Folvite 1 mg Tablet] 1 mg PO DAILY 10/16/19 Gabapentin [Neurontin 300 mg Capsule] 1,200 mg PO Q8 10/16/19 Ketoconazole 1 applic TOP TIDP PRN 10/16/19 Cyanocobalamin (Vitamin B-12) [Vitamin B-12 Inj 1000 Mcg/1 ml Vial] 1,000 mcg IM .MONTHLY 12/01/19 Simvastatin [Zocor 40 mg Tablet] 40 mg PO QHS 12/01/19 Albuterol Sulfate [Ventolin Hfa 8 gm Mdi (1 Mdi/ER Disp)] 2 puff IH Q6HP PRN #1 inhaler 12/11/19 Budesonide/Formoterol Fumarate [Symbicort HFA 160-4.5 mcg Inhaler 6 gm] 2 puff IH Q12 01/12/20 Tramadol HCl [Ultram] 100 mg PO Q8HP PRN 01/12/20 Furosemide [Lasix 40 mg Tablet] 40 mg PO DAILY #30 tablet 01/23/20 Metoprolol Succinate [Toprol Xl 25 mg Tab.sr] 25 mg PO Q12 #60 tab.sr.24h 01/23/20 Prednisone [Deltasone 20 mg Tablet] 40 mg PO DAILY #10 tablet 01/23/20 Roflumilast [Daliresp 500 Mcg Tablet] 500 mcg PO DAILY #30 tablet 01/23/20 Bisacodyl [Dulcolax 5 mg Tablet] 5 mg PO DAILYP PRN tabec 02/04/20 Digoxin 125 mcg PO DAILY #30 tablet 02/04/20 Docusate Sodium [Colace 100 mg Capsule] 200 mg PO BID capsule 02/04/20 Midodrine HCl [Proamatine 5 mg Tablet] 10 mg PO TID #180 tablet 02/04/20 Polyethylene Glycol 3350 [Miralax Powder 17 gm/Packet] 17 gm PO DAILY powd.pack 02/04/20 Spironolactone [Aldactone 25 mg Tablet] 25 mg PO DAILY #30 tablet 02/04/20 Oxycodone HCl [Roxicodone] 5 mg PO Q6HP PRN #16 tablet 02/06/20 Sacubitril/Valsartan [Entresto 24 mg/26 mg Tablet] 1 tab PO Q12 #60 tablet 02/06/20 Tamsulosin HCl [Flomax 0.4 mg Cap.sr] 0.4 mg PO PCSUPPER #30 cap.sr.24h 02/06/20 Allergies/Adverse Reactions: vancomycin Allergy (Unknown, Verified 02/07/20 23:14) azithromycin Allergy (Verified 02/07/20 23:14) hydrocodone Allergy (Verified 02/07/20 23:14) Penicillins Allergy (Verified 02/07/20 23:14) acetaminophen Adverse Reaction (Verified 02/07/20 23:14) ketorolac [From Toradol] Adverse Reaction (Verified 02/07/20 23:14) Nausea Review of Systems Constitutional: ABSENT: chills, fever(s) Eyes: ABSENT: visual disturbances, other - Eye pain Ears: ABSENT: hearing changes, other - Ear pain Nose, Mouth, and Throat: ABSENT: headache(s), sore throat Cardiovascular: PRESENT: as per HPI, dyspnea on exertion, edema - Chronic biped al edema. ABSENT: chest pain, orthropnea, palpitations Respiratory: PRESENT: as per HPI, dyspnea. ABSENT: cough Gastrointestinal: ABSENT: abdominal pain, constipation, diarrhea, nausea, vomiting Genitourinary: ABSENT: dysuria, hematuria Musculoskeletal: ABSENT: back pain, joint swelling Integumentary: ABSENT: pruritus, rash Neurological: ABSENT: confusion, convulsions, focal weakness, memory loss, syncope Endocrine: ABSENT: cold intolerance, heat intolerance Hematologic/Lymphatic: ABSENT: easy bleeding, easy bruising Allergic/Immunologic: ABSENT: seasonal rhinorrhea Physical Exam Vital Signs: Temp Pulse Resp BP Pulse Ox 98.0 F 21 H 113/68 100 03/24/20 23:18 03/24/20 23:01 03/24/20 23:00 03/24/20 23:01 Intake & Output 03/23/20 03/24/20 03/25/20 23:59 23:59 23:59 Weight 75.3 kg General appearance: PRESENT: no acute distress, cooperative Head exam: PRESENT: atraumatic, normocephalic Eye exam: PRESENT: conjunctiva pink. ABSENT: conjunctival injection, scleral icterus Ear exam: PRESENT: normal external ear exam. ABSENT: bleeding, drainage Mouth exam: PRESENT: dry mucosa, neck supple Neck exam: PRESENT: JVD - Mild bilateral JVD 30 degrees of elevation. ABSENT: thyromegaly, tracheal deviation Respiratory exam: PRESENT: decreased breath sounds - Mildly decreased breath sounds throughout all veneg[place], prolonged expiratory phas - Minimally prolonged expiratory phase none, rales - Bibasilar fine rales noted, symmetrical, tachypnea, wheezes - Minimal expiratory wheezes noted Cardiovascular exam: PRESENT: gallop - Status post, RRR, tachycardia. ABSENT: clicks, rubs Pulses: PRESENT: normal radial pulses, normal dorsalis pedis pul Vascular exam: PRESENT: normal capillary refill GI/Abdominal exam: PRESENT: normal bowel sounds, soft, other - Large right inguinal hernia Rectal exam: PRESENT: deferred Extremities exam: PRESENT: pedal edema - Bipedal edema, +1 edema - Bilateral pretibial pitting edema. ABSENT: joint swelling Musculoskeletal exam: ABSENT: deformity, dislocation Neurological exam: PRESENT: alert, oriented to person, oriented to place, oriented to time, oriented to situation, CN II-XII grossly intact. ABSENT: motor sensory deficit Psychiatric exam: PRESENT: appropriate affect, normal mood Skin exam: PRESENT: dry, intact, warm. ABSENT: jaundice, rash, urticaria Results Laboratory Results: 03/24/20 22:29 03/24/20 22:29 03/24/20 03/24/20 03/24/20 22:29 22:29 22:29 WBC 8.2 RBC 4.52 Hgb 11.6 L Hct 36.1 L MCV 80 MCH 25.6 L MCHC 32.0 RDW 18.5 H Plt Count 337 Seg Neutrophils % 51.2 VBG pH 7.31 VBG pCO2 62.4 VBG HCO3 31.0 VBG Base Excess 3.4 Sodium 132.9 L Potassium 3.9 Chloride 96 L Carbon Dioxide 29 Anion Gap 8 BUN 16 Creatinine 0.74 Est GFR ( Amer) > 60 Glucose 120 H Lactic Acid Calcium 8.0 L Total Bilirubin 0.7 AST 28 Alkaline Phosphatase 161 H Total Protein 7.2 Albumin 3.3 L 03/24/20 22:29 WBC RBC Hgb Hct MCV MCH MCHC RDW Plt Count Seg Neutrophils % VBG pH VBG pCO2 VBG HCO3 VBG Base Excess Sodium Potassium Chloride Carbon Dioxide Anion Gap BUN Creatinine Est GFR ( Amer) Glucose Lactic Acid 2.6 H Calcium Total Bilirubin AST Alkaline Phosphatase Total Protein Albumin 03/24/20 03/24/20 22:29 22:29 Troponin I 0.054 NT-Pro-B Natriuret Pep 66763 H Impressions: Chest X-Ray 03/24/20 22:51 IMPRESSION: 1. Cardiomegaly with pulmonary vascular congestion. 2. Bibasilar opacities may be related to pulmonary edema however atelectasis or bilateral pneumonic process could contribute to this appearance. Possible small bilateral pleural effusions. Assessment and Plan - Diagnosis (1) Acute on chronic systolic congestive heart failure, NYHA class 3 Is this a current diagnosis for this admission?: Yes (2) Pulmonary edema Qualifiers: Chronicity: acute Qualified Code(s): J81.0 - Acute pulmonary edema Is this a current diagnosis for this admission?: Yes (3) Acute respiratory failure with hypoxia Is this a current diagnosis for this admission?: Yes (4) COPD (chronic obstructive pulmonary disease) Qualifiers: COPD type: unspecified COPD Qualified Code(s): J44.9 - Chronic obstructive pulmonary disease, unspecified Is this a current diagnosis for this admission?: Yes (5) Hypothyroidism Qualifiers: Hypothyroidism type: unspecified Qualified Code(s): E03.9 - Hypothyroidism, unspecified Is this a current diagnosis for this admission?: Yes (6) Tobacco use disorder, severe, dependence Is this a current diagnosis for this admission?: Yes - Plan Summary Summary: Patient will be admitted to [facility] where he will receive routine supportive and symptomatic cares. He will be treated with gentle diuresis and fluid restriction. He will use morphine sulfate 1 mg IV every hour as needed for dyspnea with restrictions for use of a systolic blood pressure greater than 110. He may also be treated with nitroglycerin 2% ointment again if his systolic blood pressures greater than 110. A dopamine infusion will be used to maintain a systolic pressure greater than 90. He will receive supplemental oxygen utilizing nasal cannula and/or noninvasive airway pressure support devices such as BiPAP or CPAP in order to maintain an adequate oxygen saturation. He will receive a routine pulmonary toilet of nebulized Xopenex, Atrovent and Pulmicort. Dr. Zarco will be consulted for cardiology input and treatment. Patient will be on a cardiac diet. Smoking cessation is advised and counseled briefly at the bedside. A nicotine replacement patch will be available for patient's use, if desired. Serial cardiac enzymes will be obtained. CBCs, metabolic profiles, magnesium levels and additional laboratory and/or radiographic evaluations will be obtained as appropriate. - Time Time Spent with patient: 15-24 minutes Smoking Cessation Education: 3 to 10 minutes Medications reviewed and adjusted accordingly: Yes Anticipated discharge: Home with Homehealth - Inpatient Certification Based on my medical assessment, after consideration of the patient's comorbidi ties, presenting symptoms, or acuity I expect that the services needed warrant INPATIENT care.: Yes I certify that my determination is in accordance with my understanding of Emani simmons's requirements for reasonable and necessary INPATIENT services [42 CFR 412.3e].: Yes Medical Necessity: Significant Comorbidiites Make Outpatient Treatment Too Risky, Need Close Monitoring Due to Risk of Patient Decompensation, Need For Continuous Telemetry Monitoring, Risk of Complication if Not Cared For in Hospital
[2020-03-25] MEDS ORDERED: DIGOXIN INJ 0.5 MG/2 ML AMPULE IV ONE ×2 (03:49→21:15)
[2020-03-25] MEDS: HEPARIN SOD (PORCINE) 5,000 UNIT/ML 1 ML VIAL SUBCUT SCH ×2 (05:14→13:42)
[2020-03-25] MEDS ORDERED: FUROSEMIDE INJ/PF 20 MG/2 ML SDV IV SCH ×2 (06:00→10:00)
[2020-03-25] MEDS ORDERED: PROMETHAZINE HCL INJ 25 MG/1 ML VIAL IV PRN (06:29)
[2020-03-25] MEDS: LEVOFLOXACIN 750 MG/D5W RTU 750 MG/150 ML RTUPB IV SCH (07:03)
[2020-03-25] MEDS: BUDESONIDE NEB 0.5 MG/2 ML AMPUL NEB SCH ×2 (08:03→20:04)
[2020-03-25] MEDS: LEVALBUTEROL HCL NEB 1.25 MG/3 ML AMPUL NEB SCH ×3 (08:03→23:37)
[2020-03-25] MEDS: IPRATROPIUM BROMIDE 0.02% NEB 0.5 MG/2.5 ML AMPUL NEB SCH ×3 (08:03→23:37)
--- NOTE | 2020-03-25 08:17 | EKG REPORT ---
SEVERITY:- ABNORMAL ECG - SINUS TACHYCARDIA PROBABLE LEFT ATRIAL ABNORMALITY NONSPECIFIC T ABNORMALITIES, LATERAL LEADS : Confirmed by: Edu Baker MD 25-Mar-2020 08:17:19
[2020-03-25] MEDS: DOCUSATE SODIUM 100 MG CAPSULE PO SCH (09:20)
[2020-03-25] MEDS: DIGOXIN 0.125 MG TABLET PO SCH (09:20)
[2020-03-25] MEDS: MIDODRINE HCL 5 MG TABLET PO SCH ×3 (09:20→17:50)
[2020-03-25] MEDS: CLOPIDOGREL BISULFATE 75 MG TABLET PO SCH (09:21)
[2020-03-25] MEDS ORDERED: FAMOTIDINE 20 MG TABLET PO SCH (10:00)
[2020-03-25] MEDS ORDERED: BISACODYL 5 MG TABEC PO PRN (11:28)
--- NOTE | 2020-03-25 11:34 | Progress Note ---
Provider Note Provider Note: Patient seen and evaluated by me this morning. Admitted for CHF exacerbation and started on dopamine due to hypotension in the ER. Diuresed with IV Lasix. Midodrine resumed. Patient has significant lactic acidosis which has been trending up likely secondary to hypoperfusion. Now patient is on dopamine drip, will repeat another lactic acid level this afternoon. Dr. Comer has been consulted. Patient currently comfortable. Strict enforcement of fluid restriction 1200 cc daily but has not found patient has already drank a significant amount this morning.
[2020-03-25 11:43] LABS: CREATINE KINASE MB 3.02 ng/mL (<4.55); TROPONIN I 0.025 ng/mL
[2020-03-25] MEDS: GABAPENTIN 400 MG CAPSULE PO SCH ×2 (13:42→21:56)
[2020-03-25] MEDS: FUROSEMIDE INJ/PF 20 MG/2 ML SDV IV SCH (17:50)
[2020-03-25] MEDS ORDERED: METOPROLOL SUCCINATE 25 MG TAB.SR.24H PO ONE (18:45)
[2020-03-25] MEDS ORDERED: METOPROLOL TARTRATE PF/INJ 5 MG/5 ML SDV IV PRN (20:47)
[2020-03-25] MEDS: FAMOTIDINE INJ/PF 20 MG/2 ML SDV IV SCH (21:56)
[2020-03-25] MEDS: SIMVASTATIN 40 MG TABLET PO SCH (21:56)
[2020-03-25] MEDS ORDERED: METOPROLOL SUCCINATE 25 MG TAB.SR.24H PO SCH (22:00)
[2020-03-26] MEDS: GABAPENTIN 400 MG CAPSULE PO SCH ×3 (05:47→22:52)
[2020-03-26] MEDS: MORPHINE SULFATE 10 MG/ML INJ IV PRN (05:48)
[2020-03-26 06:20] LABS: ABSOLUTE EOSINOPHILS # (AUTO) 0.1 10^3/uL (0.0-0.6); ABSOLUTE LYMPHOCYTES (AUTO) 0.9 10^3/uL (0.5-4.7); ABSOLUTE MONOCYTES (AUTO) 0.6 10^3/uL (0.1-1.4); ABSOLUTE NEUT (AUTO) 5.3 10^3/uL (1.7-8.2); BASOPHILS % (AUTO) 0.6 % (0-2); EOSINOPHILS % (AUTO) 1.4 % (0-6); HEMATOCRIT 34.7 % (37.9-51.0); HEMOGLOBIN 11.4 g/dL (13.5-17.0); LYMPHOCYTES % (AUTO) 12.5 % (13-45); MEAN CORPUSCULAR HGB CONC 32.8 g/dL (32.0-36.0); MEAN CORPUSCULAR VOLUME 79 fl (80-97); PLATELET COUNT 276 10^3/uL (150-450); RED BLOOD COUNT 4.38 10^6/uL (4.35-5.55); RED CELL DISTRIBUTION WIDTH 18.2 % (11.5-14.0); SEGMENTED NEUTROPHILS % (AUTO) 76.5 % (42-78); TOTAL CELLS COUNTED % (AUTO) 100 %; WHITE BLOOD COUNT 6.9 10^3/uL (4.0-10.5)
[2020-03-26 06:43] LABS: ALBUMIN 3.1 g/dL (3.5-5.0); ALKALINE PHOSPHATASE 120 U/L (38-126); ANION GAP 7 (5-19); ASPARTATE AMINO TRANSFERASE 28 U/L (17-59); BILIRUBIN,TOTAL 0.8 mg/dL (0.2-1.3); BLOOD UREA NITROGEN 24 mg/dL (7-20); CARBON DIOXIDE 31 mmol/L (22-30); CHLORIDE 94 mmol/L (98-107); DIGOXIN 0.84 ng/mL (0.8-2.0); GLUCOSE 87 mg/dL (75-110); POTASSIUM 4.4 mmol/L (3.6-5.0); TOTAL PROTEIN 6.7 g/dL (6.3-8.2)
[2020-03-26] MEDS: LEVALBUTEROL HCL NEB 1.25 MG/3 ML AMPUL NEB SCH ×3 (08:14→23:55)
[2020-03-26] MEDS: IPRATROPIUM BROMIDE 0.02% NEB 0.5 MG/2.5 ML AMPUL NEB SCH ×3 (08:14→23:55)
[2020-03-26] MEDS: BUDESONIDE NEB 0.5 MG/2 ML AMPUL NEB SCH ×2 (08:14→20:29)
[2020-03-26] MEDS ORDERED: PROMETHAZINE HCL INJ 25 MG/1 ML VIAL IV PRN (08:30)
[2020-03-26] MEDS: MIDODRINE HCL 5 MG TABLET PO SCH ×3 (09:30→17:39)
[2020-03-26] MEDS: CLOPIDOGREL BISULFATE 75 MG TABLET PO SCH (09:30)
[2020-03-26] MEDS: DOCUSATE SODIUM 100 MG CAPSULE PO SCH ×2 (09:30→17:39)
[2020-03-26] MEDS: ROFLUMILAST 500 MCG TABLET PO SCH (09:30)
[2020-03-26] MEDS: FOLIC ACID 1 MG TABLET PO SCH (09:30)
[2020-03-26] MEDS: DIGOXIN 0.125 MG TABLET PO SCH (09:31)
[2020-03-26] MEDS: FUROSEMIDE INJ/PF 20 MG/2 ML SDV IV SCH (09:32)
[2020-03-26] MEDS: ALBUMIN HUMAN 12.5 GM/50 ML RTUINJ IV SCH ×2 (09:33→10:45)
[2020-03-26] MEDS: FAMOTIDINE INJ/PF 20 MG/2 ML SDV IV SCH ×2 (09:33→22:52)
[2020-03-26] MEDS: LEVOFLOXACIN 750 MG/D5W RTU 750 MG/150 ML RTUPB IV SCH (09:35)
[2020-03-26 10:08] LABS: INTERNATIONAL RATION (INR) 1.27
--- NOTE | 2020-03-26 12:12 | RADIOLOGY REPORT (SQ) ---
EXAM DESCRIPTION: KUB/ABDOMEN (SINGLE VIEW) IMAGES COMPLETED DATE/TIME: 03/26/2020 12:02 pm REASON FOR STUDY: abd distention COMPARISON: 02/04/2020 NUMBER OF VIEWS: One view. TECHNIQUE: Supine radiographic image of the abdomen acquired. LIMITATIONS: None. FINDINGS: BOWEL GAS PATTERN: Moderate amount of stool in the ascending and transverse colon. Mild s mall bowel prominence but no significant small-bowel distention. CALCIFICATIONS: No suspicious calcifications. SOFT TISSUES: No gross mass or suggestion of organomegaly. HARDWARE: Clips in the right upper quadrant consistent with prior cholecystectomy. BONES: No acute fracture. No worrisome bone lesions. OTHER: No other significant finding. IMPRESSION: Moderate constipation. Mild small-bowel distention but no evidence of mechanical obstru ction on the current study. TECHNICAL DOCUMENTATION: JOB ID: [id number] 2010 [employer]- All Rights Reserved Reading location - IP/workstation name: [email or web address]
--- NOTE | 2020-03-26 12:53 | PDOC PROGRESS REPORT ---
Subjective Progress Note for:: 03/26/20 Subjective:: Patient still feels short of breath. Abdomen remains distended. Denies any chest pain or chest tightness. Last night, he was notably increasingly short of breath and tachycardic. Did receive a dose of digoxin IV last night. Blood pressure remains adequate off dopamine. Reason For Visit: ACUTE ON CHRONIC SYSTOLIC CONGESTIVE HEART FAILURE Physical Exam Vital Signs: Temp Pulse Resp BP Pulse Ox 97.6 F 110 H 17 114/62 97 03/26/20 11:52 03/26/20 11:52 03/26/20 11:52 03/26/20 11:52 03/26/20 11:52 Intake & Output 03/25/20 03/26/20 03/27/20 06:59 06:59 06:59 Intake Total 995 911 200 Output Total 300 1620 Balance 695 -709 200 Weight 75.3 kg 74.6 kg General appearance: PRESENT: no acute distress, cooperative Neck exam: ABSENT: JVD Respiratory exam: PRESENT: rhonchi - Upper airway, symmetrical, tachypnea, unlabored, wheezes. ABSENT: accessory muscle use, crackles, retraction Cardiovascular exam: PRESENT: +S1, +S2, tachycardia. ABSENT: irregular rhythm GI/Abdominal exam: PRESENT: ascites, distended, hernia - reducible, soft. ABSENT: firm, guarding, rebound, rigid, tenderness Neurological exam: PRESENT: alert, awake, oriented to person, oriented to place, oriented to time, other - Tremulous upper extremity Psychiatric exam: ABSENT: agitated, anxious Results Laboratory Results: 03/26/20 06:09 03/26/20 06:09 03/25/20 03/26/20 03/26/20 16:35 06:09 06:09 WBC 6.9 RBC 4.38 Hgb 11.4 L Hct 34.7 L MCV 79 L MCH 26.0 L MCHC 32.8 RDW 18.2 H Plt Count 276 Seg Neutrophils % 76.5 Sodium 132.2 L Potassium 4.4 Chloride 94 L Carbon Dioxide 31 H Anion Gap 7 BUN 24 H Creatinine 1.00 Est GFR ( Amer) > 60 Glucose 87 Lactic Acid 2.2 H Calcium 8.0 L Magnesium 1.6 Total Bilirubin 0.8 AST 28 Alkaline Phosphatase 120 Total Protein 6.7 Albumin 3.1 L 03/26/20 06:09 WBC RBC Hgb Hct MCV MCH MCHC RDW Plt Count Seg Neutrophils % Sodium Potassium Chloride Carbon Dioxide Anion Gap BUN Creatinine Est GFR ( Amer) Glucose Lactic Acid 1.9 Calcium Magnesium Total Bilirubin AST Alkaline Phosphatase Total Protein Albumin 03/24/20 03/24/20 03/25/20 22:29 22:29 01:45 Creatine Kinase 62 CK-MB (CK-2) Troponin I 0.054 NT-Pro-B Natriuret Pep 40874 H 03/25/20 03/25/20 03/25/20 01:45 10:53 10:53 Creatine Kinase 69 CK-MB (CK-2) 1.94 3.02 Troponin I 0.051 0.025 NT-Pro-B Natriuret Pep Impressions: Chest X-Ray 03/24/20 22:51 IMPRESSION: 1. Cardiomegaly with pulmonary vascular congestion. 2. Bibasilar opacities may be related to pulmonary edema however atelectasis or bilateral pneumonic process could contribute to this appearance. Possible small bilateral pleural effusions. KUB X-Ray 03/26/20 00:00 IMPRESSION: Moderate constipation. Mild small-bowel distention but no evidence of mechanical obstruction on the current study. Assessment and Plan - Diagnosis (1) Chronic obstructive pulmonary disease with acute exacerbation Is this a current diagnosis for this admission?: Yes Plan: Actively wheezing. Lung still sound tight. Continue with Xopenex standing and PRN. Incentive spirometer, flutter valve. Solu-Medrol twice daily. (2) Acute on chronic systolic congestive heart failure, NYHA class 3 Is this a current diagnosis for this admission?: Yes Plan: Dopamine drip was discontinued yesterday. Blood pressure has been adequate. Lactic acidosis has resolved. Continue midodrine. Being diuresed with Lasix IV 40 mg twice a day-possibly de-escalate tomorrow. Strict I's and O's. 1200 cc fluid restriction. Monitor electrolytes and renal function. Mild bump in bicarb noted. Continue Toprol-XL 25 mg twice a day and digoxin. Plan to resume Entresto and Aldactone after paracentesis today if blood pressure tolerates. Dr. Comer is following. (3) Acute and chronic respiratory failure Qualifiers: Respiratory failure complication: hypoxia Qualified Code(s): J96.21 - Acute and chronic respiratory failure with hypoxia Is this a current diagnosis for this admission?: Yes Plan: Multifactorial secondary to the above. Also had component of atelectasis. Is on home oxygen at baseline for his chronic hypoxia from COPD. O2 supplementation as needed. (4) Atelectasis of left lung Is this a current diagnosis for this admission?: Yes Plan: Incentive spirometer. (5) Ascites Qualifiers: Ascites type: other type Qualified Code(s): R18.8 - Other ascites Is this a current diagnosis for this admission?: Yes Plan: Abdominal distention may be contributing to patient's shortness of breath. Patient certainly has fluid wave. He was planned for paracentesis today. However, radiology informs me that there is only a very small (about 3cm) pocket of fluid to drain and most of what they see on the abdominal ultrasound is dil ated bowel loops and recommends that there is not much to drain and will be of low therapeutic yield. Radiology recommends dry CT abd for ascitic assessment if paracentesis is still desired. I will reevaluate need for paracentesis after patient has had substantial bowel movement. (6) Constipation Qualifiers: Constipation type: unspecified constipation type Qualified Code(s): K59.00 - Constipation, unspecified Is this a current diagnosis for this admission?: Yes Plan: KUB showing moderate amount of constipation with distended bowel loops. No evidence of SBO on KUB. We will give patient a dose of p.o. 10 mg Dulcolax. Docusate twice daily. Likely secondary to patient's narcotic use at home. (7) Sinus tachycardia Is this a current diagnosis for this admission?: Yes Plan: Likely secondary to the above conditions. Currently on his home regimen of digoxin and Toprol-XL as well. Continue to monitor on telemetry. Rest of plan of treatment as above. (8) Hyponatremia Is this a current diagnosis for this admission?: Yes Plan: Stable (9) Tobacco use disorder, severe, dependence Is this a current diagnosis for this admission?: Yes Plan: Nicotine patch offered - Time Time Spent with patient: Less than 15 minutes
[2020-03-26] MEDS ORDERED: BISACODYL 5 MG TABEC PO ONE (13:00)
[2020-03-26] MEDS: TRAMADOL HCL 50 MG TABLET PO PRN (14:15)
--- NOTE | 2020-03-26 14:18 | RADIOLOGY REPORT (SQ) ---
EXAM DESCRIPTION: U/S ABDOMEN LIMITED W/O DOP IMAGES COMPLETED DATE/TIME: 03/26/2020 1:50 pm REASON FOR STUDY: abdominal distention. SOB COMPARISON: None. TECHNIQUE: Dynamic and static grayscale images acquired of the abdomen and recorded on PACS. Additio nal selected color Doppler and spectral images recorded. LIMITATIONS: None. FINDINGS: PERITONEAL AND RIGHT PLEURAL SPACE: Mild amount of free volume of fluid in the abdomen. Overlying bowel gas limits examination somewhat. OTHER: No other significant findings. IMPRESSION: 1. Mild volume of ascites in the abdomen. 2. Bowel gas limits examination. TECHNICAL DOCUMENTATION: JOB ID: [id number] 2010 [employer]- All Rights Reserved Reading location - IP/workstation name: [email or web address]
[2020-03-26] MEDS: METHYLPREDNISOLONE INJ 40 MG/1 ML SDV IV SCH ×2 (14:22→22:52)
[2020-03-26] MEDS: OXYCODONE HCL IR 5 MG TABLET PO PRN (17:39)
[2020-03-26] MEDS ORDERED: FUROSEMIDE INJ/PF 40 MG/4 ML SDV IV SCH (18:00)
[2020-03-26] MEDS: SIMVASTATIN 40 MG TABLET PO SCH (22:52)
[2020-03-26] MEDS: HEPARIN SOD (PORCINE) 5,000 UNIT/ML 1 ML VIAL SUBCUT SCH (22:52)
--- NOTE | 2020-03-26 23:21 | Progress Note ---
Provider Note Provider Note: CARDIOLOGY PROGRESS NOTE by Dr. Lorenza Sandoval on 03/26/2020. SUBJECTIVE: The patient complains of chronic leg pain. He is continues to be short of breath. There is no PND orthopnea. He is constipated and he has abdominal distention. He has no leg edema. There is no arrhythmias seen on the monitor. He there is no firing of his LifeVest. He had a ultrasound of the abdomen and this showed not much acetic fluid for paracentesis. He has no anginal symptoms. PHYSICAL EXAMINATION: The patient is a frail build and appears to be chronically ill and malnourished. Selected Entries 03/26/20 16:41 Temperature 97.4 F Temperature Oral Source Pulse Rate 80 Respiratory 20 Rate Blood Pressure 113/69 Blood Pressure 83 Mean BP Location Right Arm BP Position Sitting O2 Sat by Pulse 94 Oximetry Oxygen Flow 3.00 Rate Oxygen Delivery Nasal Cannula Method HEAD: Is atraumatic normocephalic. EYES: Pupils are equal round regular reactive to light accommodation. Extraocular movements are normal. There is no conjunctival pallor. There is no scleral icterus. EARS: Tympanic membranes are intact. External auditory canals are clear. NOSE: There is no deviated nasal septum. There is no inflammation nasal mucous membrane. MOUTH: Mucous membranes of the mouth are moist. Tongue is moist there is no ulcers. There is no bleeding from the gums THROAT: There is no redness of the oropharynx. There is no exudates. SKIN: There is no skin rashes. There is no skin lesions. There is no petechia or ecchymosis. NECK: Is supple there is mild JVD present. Carotids are equal there is no bruits. There is no lymphadenopathy. There is no goiter. There is no accessory muscle respiration use. Trachea central. LUNGS: There is diminished air entry prolonged expiration. Lungs are clear bilaterally. There is no rhonchi and today there is no wheezing. There is no rales of CHF. On percussion there is hyperresonance. HEART: S1-S2 is heard. There is no S3 gallop. There is no S4 gallop. Systolic murmur left sternal border and the apex there is no rub. ABDOMEN: Soft abdomen is distended. Bowel sounds are increased. There is shifting dullness of ascites and also on percussion there is tympanic note. There is no definite hepatosplenomegaly. There is no ascites present. There is a reducible right inguinal hernia present there is no tender areas masses. EXTREMITIES: Femorals are diminished. There is no femoral bruits. Leg pulses are diminished. There is trace pedal edema bilaterally. There is no DVT or cellulitis. There is no calf tenderness. There is no cyanosis or clubbing. ATHLETIC COACH: The patient is conscious awake alert oriented x3 with no focal deficits. PSYCHIATRIC the patient judgment insight are intact her affect is normal. Patient's 24-hour intake is 911 ml. 24-hour output is 1620 ML. Chest X-Ray 03/24/20 22:51 IMPRESSION: 1. Cardiomegaly with pulmonary vascular congestion. 2. Bibasilar opacities may be related to pulmonary edema however atelectasis or bilateral pneumonic process could contribute to this appearance. Possible small bilateral pleural effusions. Abdomen Ultrasound 03/26/20 00:00 IMPRESSION: 1. Mild volume of ascites in the abdomen. 2. Bowel gas limits examination. KUB X-Ray 03/26/20 00:00 IMPRESSION: Moderate constipation. Mild small-bowel distention but no evidence of mechanical obstruction on the current study. Labs- All tests 24 hr 03/26/20 03/26/20 03/26/20 06:09 06:09 06:09 WBC 6.9 RBC 4.38 Hgb 11.4 L Hct 34.7 L MCV 79 L MCH 26.0 L MCHC 32.8 RDW 18.2 H Plt Count 276 Lymph % (Auto) 12.5 L [place] % (Auto) 9.0 Eos % (Auto) 1.4 Baso % (Auto) 0.6 Absolute Neuts (auto) 5.3 Absolute Lymphs (auto) 0.9 Absolute Monos (auto) 0.6 Absolute Eos (auto) 0.1 Absolute Basos (auto) 0.0 Seg Neutrophils % 76.5 PT INR APTT 36.8 H Sodium 132.2 L Potassium 4.4 Chloride 94 L Carbon Dioxide 31 H Anion Gap 7 BUN 24 H Creatinine 1.00 Est GFR ( Amer) > 60 Est GFR (MDRD) Non-Af > 60 Glucose 87 Lactic Acid Calcium 8.0 L Magnesium 1.6 Total Bilirubin 0.8 Direct Bilirubin 0.0 Neonat Total Bilirubin Not Reportable Neonat Direct Bilirubin Not Reportable Neonat Indirect Bili Not Reportable AST 28 ALT 11 Alkaline Phosphatase 120 Total Protein 6.7 Albumin 3.1 L Digoxin 0.84 03/26/20 03/26/20 06:09 06:09 WBC RBC Hgb Hct MCV MCH MCHC RDW Plt Count Lymph % (Auto) [place] % (Auto) Eos % (Auto) Baso % (Auto) Absolute Neuts (auto) Absolute Lymphs (auto) Absolute Monos (auto) Absolute Eos (auto) Absolute Basos (auto) Seg Neutrophils % PT 16.0 H INR 1.27 APTT Sodium Potassium Chloride Carbon Dioxide Anion Gap BUN Creatinine Est GFR ( Amer) Est GFR (MDRD) Non-Af Glucose Lactic Acid 1.9 Calcium Magnesium Total Bilirubin Direct Bilirubin Neonat Total Bilirubin Neonat Direct Bilirubin Neonat Indirect Bili AST ALT Alkaline Phosphatase Total Protein Albumin Digoxin IMPRESSION/RECOMMENDATION: 1. Acute on chronic respiratory failure: This is secondary to acute on chronic respiratory failure acute exacerbation of COPD and noncompliance. 2. COPD with acute exacerbation: Continue anti-COPD medication steroids and antibiotics. 3. 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 Continue current diuretics and MILAGRO inhibitor and beta-sarina. But would hold the beta-sarina for now until acute exacerbation of COPD is over. 4. Hypotension: This is resolved. The patient is on midodrine. The patient is off dopamine. 5. Dilated cardiomyopathy and also ischemic cardiomyopathy with severely reduced LV ejection fraction. 6. Patient with a high risk for sudden : Continue LifeVest. 7. Right inguinal hernia: We will see if surgery can repair the patient's hernia once acute COPD and acute on chronic CHF are controlled 8. Coronary artery disease: No anginal symptoms. Patient has ischemic and dilated cardiomyopathy 9. Ongoing tobacco abuse: Tobacco cessation counseling given 10. Noncompliance with medication, smoking and diet. Medications reviewed medical regimen and management plan discussed with RN provider on the case. Medical decision making is of high complexity. 40 minutes spent as patient more than 50% time spent in direct patient care. Will follow
[2020-03-27] MEDS: HEPARIN SOD (PORCINE) 5,000 UNIT/ML 1 ML VIAL SUBCUT SCH ×3 (05:25→21:10)
[2020-03-27] MEDS: GABAPENTIN 400 MG CAPSULE PO SCH ×3 (05:26→21:09)
[2020-03-27 05:44] LABS: ALBUMIN 2.8 g/dL (3.5-5.0); ALKALINE PHOSPHATASE 108 U/L (38-126); ANION GAP 8 (5-19); ASPARTATE AMINO TRANSFERASE 24 U/L (17-59); BILIRUBIN,DIRECT 0.1 mg/dL (0.0-0.4); BILIRUBIN,TOTAL 0.6 mg/dL (0.2-1.3); BLOOD UREA NITROGEN 27 mg/dL (7-20); CALCIUM 7.7 mg/dL (8.4-10.2); CARBON DIOXIDE 32 mmol/L (22-30); CHLORIDE 94 mmol/L (98-107); GLUCOSE 157 mg/dL (75-110); POTASSIUM 3.5 mmol/L (3.6-5.0); TOTAL PROTEIN 6.3 g/dL (6.3-8.2)
[2020-03-27] MEDS: LEVALBUTEROL HCL NEB 1.25 MG/3 ML AMPUL NEB SCH ×2 (08:10→16:19)
[2020-03-27] MEDS: IPRATROPIUM BROMIDE 0.02% NEB 0.5 MG/2.5 ML AMPUL NEB SCH ×2 (08:10→16:19)
[2020-03-27] MEDS: BUDESONIDE NEB 0.5 MG/2 ML AMPUL NEB SCH ×2 (08:10→20:35)
[2020-03-27] MEDS ORDERED: POTASSIUM CHLORIDE 10 MEQ TABLET.ER PO ONE (08:30)
[2020-03-27] MEDS: OXYCODONE HCL IR 5 MG TABLET PO PRN ×2 (08:45→15:33)
[2020-03-27] MEDS ORDERED: POLYETHYLENE GLYCOL 3350 POWDER 17 GM/1 PACKET PO ONE (10:00)
[2020-03-27] MEDS ORDERED: BISACODYL 5 MG TABEC PO ONE (10:00)
[2020-03-27] MEDS ORDERED: FOLIC ACID 1 MG TABLET PO SCH (10:00)
[2020-03-27] MEDS: LEVOFLOXACIN 750 MG/D5W RTU 750 MG/150 ML RTUPB IV SCH (10:12)
[2020-03-27] MEDS: FAMOTIDINE INJ/PF 20 MG/2 ML SDV IV SCH ×2 (10:12→21:08)
[2020-03-27] MEDS: METHYLPREDNISOLONE INJ 40 MG/1 ML SDV IV SCH (10:12)
[2020-03-27] MEDS: MIDODRINE HCL 5 MG TABLET PO SCH ×3 (10:13→17:48)
[2020-03-27] MEDS: ROFLUMILAST 500 MCG TABLET PO SCH (10:14)
[2020-03-27] MEDS: FUROSEMIDE 40 MG TABLET PO SCH (10:14)
[2020-03-27] MEDS: DOCUSATE SODIUM 100 MG CAPSULE PO SCH ×2 (10:14→17:48)
[2020-03-27] MEDS: DIGOXIN 0.125 MG TABLET PO SCH (10:15)
[2020-03-27] MEDS: FOLIC ACID 1 MG TABLET PO SCH (10:16)
[2020-03-27] MEDS: CLOPIDOGREL BISULFATE 75 MG TABLET PO SCH (10:16)
--- NOTE | 2020-03-27 15:25 | PDOC PROGRESS REPORT ---
Subjective Progress Note for:: 03/27/20 Subjective:: Patient states that his breathing has improved. Still having abdominal pain. Had not had a bowel movement but later did have a bowel movement substantially this afternoon. Denies any chest pain. Eating adequately. Reason For Visit: ACUTE ON CHRONIC SYSTOLIC CONGESTIVE HEART FAILURE Physical Exam Vital Signs: Temp Pulse Resp BP Pulse Ox 97.2 F 110 H 22 H 118/88 H 90 L 03/27/20 12:12 03/27/20 13:33 03/27/20 12:12 03/27/20 12:12 03/27/20 12:12 Intake & Output 03/26/20 03/27/20 03/28/20 06:59 06:59 06:59 Intake Total 911 896 492 Output Total 1620 3735 500 Balance -769 -2399 -8 Weight 74.6 kg 71.2 kg General appearance: PRESENT: no acute distress, cooperative Neck exam: ABSENT: JVD Respiratory exam: PRESENT: symmetrical, unlabored, wheezes - Mild to minimal end expiratory wheezing. ABSENT: chest wall tenderness, crackles, rales, retraction, tachypnea Cardiovascular exam: PRESENT: RRR, +S1, +S2. ABSENT: tachycardia GI/Abdominal exam: PRESENT: distended, soft, tenderness. ABSENT: firm, guardin g, hernia - Mesh appreciated, rebound, rigid Neurological exam: PRESENT: alert, awake, oriented to person, oriented to place, oriented to time, oriented to situation Results Laboratory Results: 03/26/20 06:09 03/27/20 04:54 03/27/20 04:54 Sodium 134.1 L Potassium 3.5 L Chloride 94 L Carbon Dioxide 32 H Anion Gap 8 BUN 27 H Creatinine 1.00 Est GFR ( Amer) > 60 Glucose 157 H Calcium 7.7 L Total Bilirubin 0.6 AST 24 Alkaline Phosphatase 108 Total Protein 6.3 Albumin 2.8 L 03/24/20 03/24/20 03/25/20 22:29 22:29 01:45 Creatine Kinase 62 CK-MB (CK-2) Troponin I 0.054 NT-Pro-B Natriuret Pep 39991 H 03/25/20 03/25/20 03/25/20 01:45 10:53 10:53 Creatine Kinase 69 CK-MB (CK-2) 1.94 3.02 Troponin I 0.051 0.025 NT-Pro-B Natriuret Pep Impressions: Chest X-Ray 03/24/20 22:51 IMPRESSION: 1. Cardiomegaly with pulmonary vascular congestion. 2. Bibasilar opacities may be related to pulmonary edema however atelectasis or bilateral pneumonic process could contribute to this appearance. Possible small bilateral pleural effusions. Abdomen Ultrasound 03/26/20 00:00 IMPRESSION: 1. Mild volume of ascites in the abdomen. 2. Bowel gas limits examination. KUB X-Ray 03/26/20 00:00 IMPRESSION: Moderate constipation. Mild small-bowel distention but no evidence of mechanical obstruction on the current study. Assessment and Plan - Diagnosis (1) Chronic obstructive pulmonary disease with acute exacerbation Is this a current diagnosis for this admission?: Yes Plan: Lungs sound better today with only mild end expiratory wheezing. Continue with Xopenex standing and PRN. Incentive spirometer, flutter valve. Switch to prednisone p.o. Oxygenation is better and nasal cannula de-escalated from 3 L to 1 L. He does use home oxygen at 3 L but goal SPO2 should be 88 to 92% given his COPD. (2) Acute on chronic systolic congestive heart failure, NYHA class 3 Is this a current diagnosis for this admission?: Yes Plan: Dopamine drip was discontinued yesterday. Blood pressure has been adequate. Lactic acidosis has resolved. Continue midodrine. Strict I's and O's. 1200 cc fluid restriction. Monitor electrolytes and renal function. Lasix to escalated. No rales on exam. Now on home regimen of Lasix p.o. 40 mg daily. Continue digoxin. Toprol-XL is currently on hold due to bronchospasms. Resume Entresto. If blood pressure tolerates, will resume Aldactone as well. Dr. Comer is following. Recommendations appreciated. (3) Acute and chronic respiratory failure Qualifiers: Respiratory failure complication: hypoxia Qualified Code(s): J96.21 - Acute and chronic respiratory failure with hypoxia Is this a current diagnosis for this admission?: Yes Plan: Multifactorial secondary to the above. Also had component of atelectasis. Continue nasal cannula to maintain SPO2 88 to 92%. Currently at 1 L nasal cannula. (4) Atelectasis of left lung Is this a current diagnosis for this admission?: Yes Plan: Incentive spirometer. (5) Ascites Qualifiers: Ascites type: other type Qualified Code(s): R18.8 - Other ascites Is this a current diagnosis for this admission?: Yes Plan: None the patient has had a substantial sized bowel movement, I will get a CT of the abdomen with p.o. contrast only to evaluate if patient has significant ascites to be drained. (6) Constipation Qualifiers: Constipation type: unspecified constipation type Qualified Code(s): K59.00 - Constipation, unspecified Is this a current diagnosis for this admission?: Yes Plan: Patient had a very large bowel movement this afternoon after receiving Dulcolax. Continue current bowel regimen. Likely secondary to his narcotics. (7) Sinus tachycardia Is this a current diagnosis for this admission?: Yes Plan: Likely secondary to the above conditions. Currently on his home regimen of digoxin . Continue to monitor on telemetry. Rest of plan of treatment as above. Toprol-XL currently on hold due to bronchospasm but may need to resume if tachycardia persists. (8) Hyponatremia Is this a current diagnosis for this admission?: Yes Plan: Stable (9) Tobacco use disorder, severe, dependence Is this a current diagnosis for this admission?: Yes - Time Time Spent with patient: Less than 15 minutes
--- NOTE | 2020-03-27 15:42 | RADIOLOGY REPORT (SQ) ---
EXAM DESCRIPTION: CT ABD/PELVIS ORAL ONLY IMAGES COMPLETED DATE/TIME: 03/27/2020 2:56 pm REASON FOR STUDY: andominal distention, ascites evaluation COMPARISON: Multiple, most recent 11/27/2019 TECHNIQUE: CT scan of the abdomen and pelvis performed with oral contrast and no intravenous contras t. Images reviewed with lung, soft tissue, and bone windows. Reconstructed coronal and sagittal MPR i mages reviewed. All images stored on PACS. All CT scanners at this facility use dose modulation, iterative reconstruction, and/or weight based d osing when appropriate to reduce radiation dose to as low as reasonably achievable (ALARA). [facility]: Dose Right [facility]: CareDose [facility]: Dose Right [facility]: Teradose 4D [facility]: [employer] RADIATION DOSE: CT Rad equipment meets quality standard of care and radiation dose reduction techniq ues were employed. CTDIvol: 8.5 mGy. DLP: 535 mGy-cm. mGy. LIMITATIONS: Artifact from support apparatus. FINDINGS: LOWER CHEST: Small left pleural effusion. Cardiomegaly. NON-CONTRASTED LIVER, SPLEEN, ADRENALS: Cirrhosis. PANCREAS: No masses. No peripancreatic inflammatory changes. GALLBLADDER: Surgically absent. RIGHT KIDNEY AND URETER: Multiple cysts. No suspicious masses. Assessment limited by lack of IV cont rast. No significant calcifications. No hydronephrosis or hydroureter. LEFT KIDNEY AND URETER: No suspicious masses. Assessment limited by lack of IV contrast. No signifi cant calcifications. No hydronephrosis or hydroureter. AORTA AND RETROPERITONEUM: No aneurysm. No retroperitoneal masses or adenopathy. BOWEL AND PERITONEAL CAVITY: Mild -moderate ascites. Thickening of the cecum and ascending colonic w all. APPENDIX: Not visualized. PELVIS, BLADDER, AND ABDOMINAL WALL: Potter catheter in urinary bladder. Fluid containing right ingui nal hernia. BONES: Nothing acute. OTHER: No other significant finding. IMPRESSION: 1. Cirrhosis. Mild -moderate ascites. 2. Thickening of the cecum and ascending colonic wall, most likely due to infectious or inflammatory process. TECHNICAL DOCUMENTATION: JOB ID: [id number] Quality ID # [id number]: Final reports with documentation of one or more dose reduction techniques (e.g., Au tomated exposure control, adjustment of the mA and/or kV according to patient size, use of iterative reconstruction technique) 2010 [employer]- All Rights Reserved Reading location - IP/workstation name: [email or web address]
[2020-03-27] MEDS: SACUBITRIL/VALSARTAN 24 MG/26 MG TABLET PO SCH ×2 (16:00→21:08)
[2020-03-27] MEDS: SIMVASTATIN 40 MG TABLET PO SCH (21:09)
--- NOTE | 2020-03-27 21:18 | Progress Note ---
Provider Note Provider Note: CARDIOLOGY PROGRESS NOTE by Dr. Lorenza Sandoval on . SUBJECTIVE: The patient had a big bowel movement and he feels much better. He denies any chest pain or discomfort. His shortness of breath is improved. His urine output is good. There is no recurrence of SVT. There is no firing of his LifeVest. There is no TIA CVA symptoms. He denies any PND orthopnea or leg edema. He complains of pain in the right inguinal hernia region. PHYSICAL EXAMINATION: The patient appears to be a frail build and chronically ill and malnourished. Selected Entries 03/27/20 12:12 Temperature 97.2 F Temperature Oral Source Pulse Rate 92 Respiratory 22 H Rate Blood Pressure 118/88 H Blood Pressure 98 Mean BP Location Right Arm BP Position Sitting O2 Sat by Pulse 90 L Oximetry Oxygen Flow 3.00 Rate Oxygen Delivery Nasal Cannula Method Labs- All tests 24 hr 03/27/20 04:54 Sodium 134.1 L Potassium 3.5 L Chloride 94 L Carbon Dioxide 32 H Anion Gap 8 BUN 27 H Creatinine 1.00 Est GFR ( Amer) > 60 Est GFR (MDRD) Non-Af > 60 Glucose 157 H Calcium 7.7 L Total Bilirubin 0.6 Direct Bilirubin 0.1 Neonat Total Bilirubin Not Reportable Neonat Direct Bilirubin Not Reportable Neonat Indirect Bili Not Reportable AST 24 ALT 11 Alkaline Phosphatase 108 Total Protein 6.3 Albumin 2.8 L HEAD: Is atraumatic normocephalic. EYES: Pupils are equal round regular reactive to light accommodation. Extraocular movements are normal. There is no conjunctival pallor. There is no scleral icterus. EARS: Tympanic membranes are intact. External auditory canals are clear. NOSE: There is no deviated nasal septum. There is no inflammation nasal mucous membrane. MOUTH: Mucous membranes of the mouth are moist. Tongue is moist there is no ulcers. There is no bleeding from the gums THROAT: There is no redness of the oropharynx. There is no exudates. SKIN: There is no skin rashes. There is no skin lesions. There is no petechia or ecchymosis. NECK: Is supple there is mild JVD present. Carotids are equal there is no bruits. There is no lymphadenopathy. There is no goiter. There is no accessory muscle respiration use. Trachea central. LUNGS: There is diminished air entry prolonged expiration. Lungs are clear bilaterally. There is no rhonchi and today there is no wheezing. There is no rales of CHF. On percussion there is hyperresonance. HEART: S1-S2 is heard. There is no S3 gallop. There is no S4 gallop. Systolic murmur left sternal border and the apex there is no rub. ABDOMEN: Soft abdomen is distended. Bowel sounds are increased. There is shifting dullness of ascites and also on percussion there is tympanic note. There is no definite hepatosplenomegaly. There is no ascites present. There is a reducible right inguinal hernia present there is no tender areas masses. EXTREMITIES: Femorals are diminished. There is no femoral bruits. Leg pulses are diminished. There is trace pedal edema bilaterally. There is no DVT or cellulitis. There is no calf tenderness. There is no cyanosis or clubbing. DIVISION DIRECTOR: The patient is conscious awake alert oriented x3 with no focal deficits. PSYCHIATRIC the patient judgment insight are intact her affect is normal. Patient's 24-hour intake is 896 ml. 24-hour output is 3175 ML. Chest X-Ray 03/24/20 22:51 IMPRESSION: 1. Cardiomegaly with pulmonary vascular congestion. 2. Bibasilar opacities may be related to pulmonary edema however atelectasis or bilateral pneumonic process could contribute to this appearance. Possible small bilateral pleural effusions. Abdomen Ultrasound 03/26/20 00:00 IMPRESSION: 1. Mild volume of ascites in the abdomen. 2. Bowel gas limits examination. KUB X-Ray 03/26/20 00:00 IMPRESSION: Moderate constipation. Mild small-bowel distention but no evidence of mechanical obstruction on the current study. Abdomen/Pelvis CT 03/27/20 00:00 IMPRESSION: 1. Cirrhosis. Mild -moderate ascites. 2. Thickening of the cecum and ascending colonic wall, most likely due to infectious or inflammatory process. IMPRESSION/RECOMMENDATION: 1. Acute on chronic respiratory failure: This is secondary to acute on chronic respiratory failure acute exacerbation of COPD and noncompliance. 2. COPD with acute exacerbation: Continue anti-COPD medication steroids and antibiotics. 3. 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 Continue current diuretics and and Toprol-XL. His Entresto has been restarted. 4. Hypotension: This is resolved. The patient is on midodrine. The patient is off dopamine. 5. Dilated cardiomyopathy and also ischemic cardiomyopathy with severely reduced LV ejection fraction. 6. Patient with a high risk for sudden : Continue LifeVest. 7. Right inguinal hernia: We will see if surgery can repair the patient's hernia once acute COPD and acute on chronic CHF are controlled 8. Coronary artery disease: No anginal symptoms. Patient has ischemic and dilated cardiomyopathy 9. Ongoing tobacco abuse: Tobacco cessation counseling given 10. Noncompliance with medication, smoking and diet. Medications reviewed medical regimen and management plan discussed with RN provider on the case. Medical decision making is of high complexity. 40 minutes spent as patient more than 50% time spent in direct patient care. Will follow
[2020-03-28] MEDS: IPRATROPIUM BROMIDE 0.02% NEB 0.5 MG/2.5 ML AMPUL NEB SCH ×3 (00:16→16:39)
[2020-03-28] MEDS: LEVALBUTEROL HCL NEB 1.25 MG/3 ML AMPUL NEB SCH ×3 (00:17→16:40)
[2020-03-28] MEDS: GABAPENTIN 400 MG CAPSULE PO SCH ×3 (05:35→22:04)
[2020-03-28] MEDS: HEPARIN SOD (PORCINE) 5,000 UNIT/ML 1 ML VIAL SUBCUT SCH ×3 (05:35→22:04)
[2020-03-28 07:31] LABS: ANION GAP 6 (5-19); BLOOD UREA NITROGEN 24 mg/dL (7-20); CALCIUM 7.7 mg/dL (8.4-10.2); CARBON DIOXIDE 35 mmol/L (22-30); CHLORIDE 94 mmol/L (98-107); GLUCOSE 136 mg/dL (75-110); POTASSIUM 3.5 mmol/L (3.6-5.0)
[2020-03-28] MEDS: POTASSI CL 20 MEQ/50 ML RIDER 20 MEQ/50 ML RTUPB IV SCH ×2 (08:26→10:41)
[2020-03-28] MEDS: BUDESONIDE NEB 0.5 MG/2 ML AMPUL NEB SCH ×2 (09:21→21:04)
[2020-03-28] MEDS: FAMOTIDINE INJ/PF 20 MG/2 ML SDV IV SCH ×2 (10:13→22:04)
[2020-03-28] MEDS: CLOPIDOGREL BISULFATE 75 MG TABLET PO SCH (10:13)
[2020-03-28] MEDS: DIGOXIN 0.125 MG TABLET PO SCH (10:14)
[2020-03-28] MEDS: PREDNISONE 20 MG TABLET PO SCH (10:14)
[2020-03-28] MEDS: SACUBITRIL/VALSARTAN 24 MG/26 MG TABLET PO SCH ×2 (10:14→22:04)
[2020-03-28] MEDS: MIDODRINE HCL 5 MG TABLET PO SCH ×3 (10:14→17:37)
[2020-03-28] MEDS: ROFLUMILAST 500 MCG TABLET PO SCH (10:14)
[2020-03-28] MEDS: POTASSIUM CHLORIDE 10 MEQ TABLET.ER PO SCH (10:14)
[2020-03-28] MEDS: FOLIC ACID 1 MG TABLET PO SCH (10:15)
[2020-03-28] MEDS: DOCUSATE SODIUM 100 MG CAPSULE PO SCH (10:15)
[2020-03-28] MEDS: FUROSEMIDE 40 MG TABLET PO SCH (10:15)
[2020-03-28] MEDS: LEVOFLOXACIN 750 MG/D5W RTU 750 MG/150 ML RTUPB IV SCH (10:15)
[2020-03-28] MEDS: OXYCODONE HCL IR 5 MG TABLET PO PRN (11:11)
--- NOTE | 2020-03-28 11:26 | Progress Note ---
Provider Note Provider Note: CARDIOLOGY PROGRESS NOTE by Dr. Lorenza Sandoval on 03/28/2020. SUBJECTIVE: The patient denies any chest pain discomfort. His shortness of breath is much better. He has cough which is dry. He has no PND orthopnea. There is no recurrence of SVT. There is no firing of his LifeVest. He seems to be constipated. He has abdominal distention which is a combination of gas and ascites. There is no TIA CVA symptoms. He still has pain at the hernia site but there is no evidence of incarceration or strangulation. There is no evidence of obstruction of the hernia. PHYSICAL EXAMINATION: The patient is a frail build and appears to be chronically ill and malnourished. Selected Entries 03/28/20 03/28/20 09:22 10:00 Pulse Rate 96 Respiratory 16 Rate Respiratory Non-Labored Effort Blood Pressure 94/54 L [Right Upper Arm] Blood Pressure 67 Mean [Right Upper Arm] O2 Sat by Pulse 90 L Oximetry Oxygen Delivery Nasal Cannula Method ( includes room air) Oxygen Flow 1.5 Rate HEAD: Is atraumatic normocephalic. EYES: Pupils are equal round regular reactive to light accommodation. Extraocular movements are normal. There is no conjunctival pallor. There is no scleral icterus. EARS: Tympanic membranes are intact. External auditory canals are clear. NOSE: There is no deviated nasal septum. There is no inflammation nasal mucous membrane. MOUTH: Mucous membranes of the mouth are moist. Tongue is moist there is no ulcers. There is no bleeding from the gums THROAT: There is no redness of the oropharynx. There is no exudates. SKIN: There is no skin rashes. There is no skin lesions. There is no petechia or ecchymosis. NECK: Is supple there is mild JVD present. Carotids are equal there is no bruits. There is no lymphadenopathy. There is no goiter. There is no accessory muscle respiration use. Trachea central. LUNGS: There is diminished air entry prolonged expiration. Lungs are clear bilaterally. There is no rhonchi and today there is no wheezing. There is no rales of CHF. On percussion there is hyperresonance. HEART: S1-S2 is heard. There is no S3 gallop. There is no S4 gallop. Systolic murmur left sternal border and the apex there is no rub. ABDOMEN: Soft abdomen is distended. Bowel sounds are increased. There is shifting dullness of ascites and also on percussion there is tympanic note. There is no definite hepatosplenomegaly. There is no ascites present. There is a reducible right inguinal hernia present there is no tender areas masses. EXTREMITIES: Femorals are diminished. There is no femoral bruits. Leg pulses are diminished. There is trace pedal edema bilaterally. There is no DVT or cellulitis. There is no calf tenderness. There is no cyanosis or clubbing. 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 PSYCHIATRIC the patient judgment insight are intact her affect is normal. Patient's 24-hour intake is 834 ml. 24-hour output is 1475 ML. Labs- All tests 24 hr 03/28/20 06:33 Sodium 135.1 L Potassium 3.5 L Chloride 94 L Carbon Dioxide 35 H Anion Gap 6 BUN 24 H Creatinine 0.76 Est GFR ( Amer) > 60 Est GFR (MDRD) Non-Af > 60 Glucose 136 H Calcium 7.7 L Chest X-Ray 03/24/20 22:51 IMPRESSION: 1. Cardiomegaly with pulmonary vascular congestion. 2. Bibasilar opacities may be related to pulmonary edema however atelectasis or bilateral pneumonic process could contribute to this appearance. Possible small bilateral pleural effusions. Abdomen Ultrasound 03/26/20 00:00 IMPRESSION: 1. Mild volume of ascites in the abdomen. 2. Bowel gas limits examination. KUB X-Ray 03/26/20 00:00 IMPRESSION: Moderate constipation. Mild small-bowel distention but no evidence of mechanical obstruction on the current study. Abdomen/Pelvis CT 03/27/20 00:00 IMPRESSION: 1. Cirrhosis. Mild -moderate ascites. 2. Thickening of the cecum and ascending colonic wall, most likely due to infectious or inflammatory process. IMPRESSION/RECOMMENDATION: 1. Acute on chronic respiratory failure: This is secondary to acute on chronic respiratory failure acute exacerbation of COPD and noncompliance. 2. COPD with acute exacerbation: Continue anti-COPD medication steroids and antibiotics. 3. 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 Continue current diuretics and and Toprol-XL. Continue Entresto. 4. Hypotension: This is resolved. The patient is on midodrine. The patient is off dopamine. 5. Dilated cardiomyopathy and also ischemic cardiomyopathy with severely reduced LV ejection fraction. 6. Patient with a high risk for sudden : Continue LifeVest. 7. Right inguinal hernia: We will see if surgery can repair the patient's hernia once acute COPD and acute on chronic CHF are controlled 8. Coronary artery disease: No anginal symptoms. Patient has ischemic and dilated cardiomyopathy 9. Ongoing tobacco abuse: Tobacco cessation counseling given 10. Noncompliance with medication, smoking and diet. 11.Constipation: We will add lactulose. Medications reviewed medical regimen and management plan discussed with RN provider on the case. Medical decision making is of moderate complexity. 40 minutes spent as patient more than 50% time spent in direct patient care. Will follow.
[2020-03-28] MEDS ORDERED: SPIRONOLACTONE 25 MG TABLET PO ONE ×2 (14:47→17:45)
--- NOTE | 2020-03-28 15:10 | PDOC PROGRESS REPORT ---
Subjective Progress Note for:: 03/28/20 Subjective:: Patient feels better in terms of his breathing today. He has had 2 large sized bowel movements and feels a lot better in terms of his abdominal pain and distention. Still having pain at the hernia site. Denies any chest pain. Reason For Visit: ACUTE ON CHRONIC SYSTOLIC CONGESTIVE HEART FAILURE Physical Exam Vital Signs: Temp Pulse Resp BP Pulse Ox 97.6 F 97 20 104/69 91 L 03/28/20 11:49 03/28/20 14:00 03/28/20 11:49 03/28/20 11:49 03/28/20 11:49 Intake & Output 03/27/20 03/28/20 03/29/20 06:59 06:59 06:59 Intake Total 896 834 318 Output Total 3172 7605 Balance -6769 -151 318 Weight 71.2 kg 71.7 kg General appearance: PRESENT: no acute distress, cooperative Neck exam: ABSENT: JVD Respiratory exam: PRESENT: tachypnea, wheezes. ABSENT: accessory muscle use, crackles, rales, retraction, symmetrical, unlabored Cardiovascular exam: PRESENT: RRR, +S1, +S2. ABSENT: tachycardia GI/Abdominal exam: PRESENT: ascites, distended, hernia - Tender inguinal hernia, normal bowel sounds, soft. ABSENT: firm, guarding, rebound, rigid Neurological exam: PRESENT: alert, awake, oriented to person, oriented to place, oriented to time Results Laboratory Results: 03/26/20 06:09 03/28/20 06:33 03/28/20 06:33 Sodium 135.1 L Potassium 3.5 L Chloride 94 L Carbon Dioxide 35 H Anion Gap 6 BUN 24 H Creatinine 0.76 Est GFR ( Amer) > 60 Glucose 136 H Calcium 7.7 L 03/24/20 03/24/20 03/25/20 22:29 22:29 01:45 Creatine Kinase 62 CK-MB (CK-2) Troponin I 0.054 NT-Pro-B Natriuret Pep 93135 H 03/25/20 03/25/20 03/25/20 01:45 10:53 10:53 Creatine Kinase 69 CK-MB (CK-2) 1.94 3.02 Troponin I 0.051 0.025 NT-Pro-B Natriuret Pep Impressions: Chest X-Ray 03/24/20 22:51 IMPRESSION: 1. Cardiomegaly with pulmonary vascular congestion. 2. Bibasilar opacities may be related to pulmonary edema however atelectasis or bilateral pneumonic process could contribute to this appearance. Possible small bilateral pleural effusions. Abdomen Ultrasound 03/26/20 00:00 IMPRESSION: 1. Mild volume of ascites in the abdomen. 2. Bowel gas limits examination. KUB X-Ray 03/26/20 00:00 IMPRESSION: Moderate constipation. Mild small-bowel distention but no evidence of mechanical obstruction on the current study. Abdomen/Pelvis CT 03/27/20 00:00 IMPRESSION: 1. Cirrhosis. Mild -moderate ascites. 2. Thickening of the cecum and ascending colonic wall, most likely due to infectious or inflammatory process. Assessment and Plan - Diagnosis (1) Chronic obstructive pulmonary disease with acute exacerbation Is this a current diagnosis for this admission?: Yes Plan: Lungs sound better today with only mild end expiratory wheezing. Continue with Xopenex standing and PRN. Incentive spirometer, flutter valve. Continue p.o. prednisone and Levaquin today and tomorrow then stop. Oxygenation is better and he is on 1.5 L nasal cannula. He does use home oxygen at 3 L but goal SPO2 should be 88 to 92% given his COPD. (2) Acute on chronic systolic congestive heart failure, NYHA class 3 Is this a current diagnosis for this admission?: Yes Plan: TTE December 2019 showed EF of 15 to 20%, global hypokinesis, mild to moderate MR and severe pulmonary hypertension at that time. Patient has diuresed very nicely on Lasix IV which has been discontinued at this point. CHF stable at this time after adequate diuresis. Continue strict I's and O's. 1200 cc fluid restriction. Monitor electrolytes and renal function. Continue digoxin, Toprol-XL, Entresto and p.o. Lasix. We will resume Aldactone today. Dr. Comer is following. Recommendations appreciated. (3) Acute and chronic respiratory failure Qualifiers: Respiratory failure complication: hypoxia Qualified Code(s): J96.21 - Acute and chronic respiratory failure with hypoxia Is this a current diagnosis for this admission?: Yes Plan: Multifactorial secondary to the above. Also had component of atelectasis. Continue nasal cannula to maintain SPO2 88 to 92%. Currently at 1.5 L nasal cannula. (4) Atelectasis of left lung Is this a current diagnosis for this admission?: Yes Plan: Incentive spirometer. (5) Ascites Qualifiers: Ascites type: other type Qualified Code(s): R18.8 - Other ascites Is this a current diagnosis for this admission?: Yes Plan: Abdominal CT shows moderate ascites. Since abdominal distention is improved, will manage with Aldactone, Lasix and salt restriction. (6) Constipation Qualifiers: Constipation type: unspecified constipation type Qualified Code(s): K59.00 - Constipation, unspecified Is this a current diagnosis for this admission?: Yes Plan: Likely secondary to his narcotics. Constipation is resolved today and abdomen actually appears softer and somewhat less distended than before. Change docusate to docusate/senna daily. Lactulose added which should also help given cirrhosis. (7) Cirrhosis of liver Qualifiers: Hepatic cirrhosis type: other cirrhosis Qualified Code(s): K74.69 - Other cirrhosis of liver Is this a current diagnosis for this admission?: Yes Plan: Likely secondary to HCV as well as history of alcohol use. May be also some contribution from his chronic CHF. Continue salt restriction, Lasix. Will resume Aldactone for ascites. He will need to follow-up with a forensic chemist outpatient for continued management of cirrhosis, evaluation for treatment of active HCV infection and ultrasound surveillance. (8) Sinus tachycardia Is this a current diagnosis for this admission?: Yes Plan: Resolved (9) Hyponatremia Is this a current diagnosis for this admission?: Yes Plan: Stable (10) Tobacco use disorder, severe, dependence Is this a current diagnosis for this admission?: Yes Plan: Nicotine patch offered (11) Inguinal hernia of right side without obstruction or gangrene Is this a current diagnosis for this admission?: Yes Plan: Has pain for hernia but CT shows no evidence of incarceration. Patient is seen by Dr. Cote for plans for further treatment. Discussed with Dr. Comer who has risk stratified patient for inguinal repair surgery. I have discussed with Dr. Beckwith. - Time Time Spent with patient: 15-24 minutes
[2020-03-28] MEDS: LACTULOSE SYRUP 20 GM/30 ML UDCUP PO SCH (17:37)
[2020-03-28] MEDS ORDERED: SENNOSIDES/DOCUSATE 8.6-50 MG 1 EACH TABLET PO SCH (18:00)
[2020-03-28] MEDS: SIMVASTATIN 40 MG TABLET PO SCH (22:04)
[2020-03-29] MEDS: LEVALBUTEROL HCL NEB 1.25 MG/3 ML AMPUL NEB SCH ×4 (00:15→23:52)
[2020-03-29] MEDS: IPRATROPIUM BROMIDE 0.02% NEB 0.5 MG/2.5 ML AMPUL NEB SCH ×4 (00:15→23:51)
[2020-03-29] MEDS: GABAPENTIN 400 MG CAPSULE PO SCH ×3 (05:38→22:22)
[2020-03-29] MEDS: HEPARIN SOD (PORCINE) 5,000 UNIT/ML 1 ML VIAL SUBCUT SCH ×2 (05:39→13:59)
[2020-03-29 06:33] LABS: ANION GAP 5 (5-19); BLOOD UREA NITROGEN 21 mg/dL (7-20); GLUCOSE 95 mg/dL (75-110)
[2020-03-29 06:39] LABS: CARBON DIOXIDE 32 mmol/L (22-30); CHLORIDE 97 mmol/L (98-107)
[2020-03-29 06:42] LABS: POTASSIUM 4.6 mmol/L (3.6-5.0)
[2020-03-29] MEDS: BUDESONIDE NEB 0.5 MG/2 ML AMPUL NEB SCH ×2 (09:13→19:56)
[2020-03-29] MEDS: SENNOSIDES/DOCUSATE 8.6-50 MG 1 EACH TABLET PO SCH (09:14)
[2020-03-29] MEDS: FOLIC ACID 1 MG TABLET PO SCH (09:14)
[2020-03-29] MEDS: ROFLUMILAST 500 MCG TABLET PO SCH (09:14)
[2020-03-29] MEDS: CLOPIDOGREL BISULFATE 75 MG TABLET PO SCH (09:15)
[2020-03-29] MEDS: FAMOTIDINE INJ/PF 20 MG/2 ML SDV IV SCH ×2 (09:15→22:22)
[2020-03-29] MEDS: MIDODRINE HCL 5 MG TABLET PO SCH ×3 (09:15→17:07)
[2020-03-29] MEDS: PREDNISONE 20 MG TABLET PO SCH (09:15)
[2020-03-29] MEDS: DIGOXIN 0.125 MG TABLET PO SCH (09:15)
[2020-03-29] MEDS: LACTULOSE SYRUP 20 GM/30 ML UDCUP PO SCH ×2 (09:16→17:05)
[2020-03-29] MEDS: SACUBITRIL/VALSARTAN 24 MG/26 MG TABLET PO SCH ×2 (09:18→22:22)
[2020-03-29] MEDS: POTASSIUM CHLORIDE 10 MEQ TABLET.ER PO SCH (09:19)
[2020-03-29] MEDS ORDERED: LEVOFLOXACIN 500 MG TABLET PO ONE (10:00)
[2020-03-29] MEDS ORDERED: SPIRONOLACTONE 25 MG TABLET PO SCH (10:00)
[2020-03-29] MEDS ORDERED: FUROSEMIDE 40 MG TABLET PO SCH ×2 (10:00)
[2020-03-29] MEDS: OXYCODONE HCL IR 5 MG TABLET PO PRN ×2 (10:35→17:08)
[2020-03-29] MEDS: ALBUMIN HUMAN 12.5 GM/50 ML RTUINJ IV SCH ×2 (10:36→10:50)
--- NOTE | 2020-03-29 15:32 | PDOC CONSULTATION ---
Consultation Consult Date: 03/29/20 Provider Consulted: JENNIFER ADAIR Consult reason:: Painful right inguinal hernia with a recurrent incarceration but no obstruction History of Present Illness Admission Date/PCP: 03/25/20 00:29 GENNY ZARCO MD History of Present Illness: DURAN TELLES is a 70 year old male with history of COPD and CHF complaining of recurrent painful incarcerated right inguinal hernia. Patient able to have a bowel movement and no nausea no vomiting. He is being managed by cardiology and medicine. They feel patient is ready for repair of the inguinal hernia under local anesthesia with sedation. Past Medical History Cardiac Medical History: Reports: Congestive Heart Failure, Coronary Artery Disease, Myocardial Infarction, Hypertension, Peripheral Vascular Disease - Chronic venous stasis Denies: Atrial Fibrillation, DVT, Hyperlipidema, Pulmonary Embolism Pulmonary Medical History: Reports: Asthma, Bronchitis, Chronic Obstructive Pulmonary Disease (COPD), Pneumonia, Respiratory Failure EENT Medical History: Denies: Cataracts, Ears - Hearing aids Neurological Medical History: Denies: Hemorrhagic CVA, Ischemic CVA, Seizures Endocrine Medical History: Reports: Hypothyroidism Denies: Diabetes Mellitus Type 1, Diabetes Mellitus Type 2, Hyperthyroidism Renal/ Medical History: Reports: Other - Chronic right inguinal hernia Denies: Chronic Kidney Disease, Nephrolithiasis Malignancy Medical History: Reports: None GI Medical History: Reports: Cirrhosis - Alcoholic cirrhosis, Hiatal Hernia, Other - Chronic right inguinal hernia Denies: Crohn's Disease, Hepatitis, Ulcerative Colitis Musculoskeltal Medical History: Denies: Arthritis, Gout Skin Medical History: Denies: Eczema, Psoriasis Psychiatric Medical History: Reports: Alcohol Dependency, Post Traumatic Stress Disorder, Tobacco Dependency Denies: Depression, Substance Abuse Traumatic Medical History: Reports: None Hematology: Reports: Anemia - Chronic Denies: Bleeding Tendencies Infectious Medical History: Reports: None Past Surgical History Past Surgical History: Reports: Cholecystectomy, Orthopedic Surgery - Left knee surgery, left wrist surgery, Other - Gallbladder Social History Lives with: Alone Smoking Status: Current Every Day Smoker Electronic Cigarette use?: No Frequency of Alcohol Use: None - History of alcoholism with heavy alcohol usage until earlier this year Hx Recreational Drug Use: No Drugs: None Hx Prescription Drug Abuse: No - Advance Directive Resuscitation Status: Full Code Family History Family History: CAD, COPD, Hypertension, Malignancy Parental Family History Reviewed: Yes Children Family History Reviewed: No Sibling(s) Family History Reviewed.: No Medication/Allergy Home Medications: Folic Acid [Folvite 1 mg Tablet] 1 mg PO DAILY 10/16/19 Gabapentin [Neurontin 300 mg Capsule] 1,200 mg PO Q8 10/16/19 Ketoconazole 1 applic TOP TIDP PRN 10/16/19 Cyanocobalamin (Vitamin B-12) [Vitamin B-12 Inj 1000 Mcg/1 ml Vial] 1 ml IM .MONTHLY 12/01/19 Simvastatin [Zocor 40 mg Tablet] 20 mg PO QHS 12/01/19 Budesonide/Formoterol Fumarate [Symbicort HFA 160-4.5 mcg Inhaler 6 gm] 2 puff IH Q12 01/12/20 Tramadol HCl [Ultram] 100 mg PO Q8HP PRN 01/12/20 Furosemide [Lasix 40 mg Tablet] 40 mg PO DAILY #30 tablet 01/23/20 Albuterol Sulfate [Ventolin 0.083% Neb 2.5 mg/3 mL Ampul] 1 vial IH RTQIDP PRN 03/26/20 Albuterol Sulfate [Ventolin Hfa 8 gm Mdi (1 Mdi/ER Disp)] 2 puff IH Q6HP PRN 03/26/20 Ibuprofen [Motrin 800 mg Tablet] 800 mg PO Q8 03/26/20 Lisinopril [Zestril] 2.5 mg PO DAILY 03/26/20 Metoprolol Tartrate [Lopressor 25 mg Tablet] 12.5 mg PO Q12 03/26/20 Thiamine HCl [Thiamine 100 mg Tablet] 100 mg PO DAILY 03/26/20 Allergies/Adverse Reactions: vancomycin Allergy (Unknown, Verified 02/07/20 23:14) azithromycin Allergy (Verified 02/07/20 23:14) hydrocodone Allergy (Verified 02/07/20 23:14) Penicillins Allergy (Verified 02/07/20 23:14) acetaminophen Adverse Reaction (Verified 02/07/20 23:14) ketorolac [From Toradol] Adverse Reaction (Verified 02/07/20 23:14) Nausea Review of Systems Gastrointestinal: PRESENT: other - As an nonobstructive reducible right inguinal hernia that is tender. Physical Exam Vital Signs: Temp Pulse Resp BP Pulse Ox 97.3 F 102 H 20 98/50 L 92 03/29/20 12:27 03/29/20 14:00 03/29/20 12:27 03/29/20 12:27 03/29/20 12:27 Intake & Output 03/28/20 03/29/20 03/30/20 06:59 06:59 06:59 Intake Total 834 672 62 Output Total 1475 1650 800 Balance -641 -978 -738 Weight 71.7 kg 71.5 kg General appearance: PRESENT: mild distress Neck exam: PRESENT: full ROM Respiratory exam: PRESENT: crackles Cardiovascular exam: PRESENT: RRR Pulses: PRESENT: normal radial pulses Vascular exam: PRESENT: normal capillary refill GI/Abdominal exam: PRESENT: other - Reducible incarcerated right inguinal hernia which is somewhat tender Rectal exam: PRESENT: deferred Neurological exam: PRESENT: alert, oriented to person, oriented to place, oriented to time, oriented to situation Psychiatric exam: PRESENT: anxious Skin exam: PRESENT: normal color, warm Results Laboratory Results: 03/26/20 06:09 03/29/20 05:41 03/29/20 05:41 Sodium 134.2 L Potassium 4.6 D Chloride 97 L Carbon Dioxide 32 H Anion Gap 5 BUN 21 H Creatinine 0.76 Est GFR ( Amer) > 60 Glucose 95 Calcium 8.0 L Magnesium 1.7 03/24/20 03/24/20 03/25/20 22:29 22:29 01:45 Creatine Kinase 62 CK-MB (CK-2) Troponin I 0.054 NT-Pro-B Natriuret Pep 89430 H 03/25/20 03/25/20 03/25/20 01:45 10:53 10:53 Creatine Kinase 69 CK-MB (CK-2) 1.94 3.02 Troponin I 0.051 0.025 NT-Pro-B Natriuret Pep Impressions: Chest X-Ray 03/24/20 22:51 IMPRESSION: 1. Cardiomegaly with pulmonary vascular congestion. 2. Bibasilar opacities may be related to pulmonary edema however atelectasis or bilateral pneumonic process could contribute to this appearance. Possible small bilateral pleural effusions. Abdomen Ultrasound 03/26/20 00:00 IMPRESSION: 1. Mild volume of ascites in the abdomen. 2. Bowel gas limits examination. KUB X-Ray 03/26/20 00:00 IMPRESSION: Moderate constipation. Mild small-bowel distention but no evidence of mechanical obstruction on the current study. Abdomen/Pelvis CT 03/27/20 00:00 IMPRESSION: 1. Cirrhosis. Mild -moderate ascites. 2. Thickening of the cecum and ascending colonic wall, most likely due to infectious or inflammatory process. Assessment & Plan - Diagnosis (1) Acute respiratory failure with hypoxia Is this a current diagnosis for this admission?: Yes (2) Inguinal hernia of right side without obstruction or gangrene Is this a current diagnosis for this admission?: Yes - Time Time Spent: 30 to 50 Minutes - Plan Summary Plan Summary: 70-year-old male with history of COPD and CHF with poor ejection fraction has recurrent incarcerated right inguinal hernia with no obstruction. Patient has been complaining that there is quite painful and tender. He is apparently cleared by medicine and cardiology for repair of hernia under local with sedation. We will schedule him tentatively for surgery tomorrow
[2020-03-29] MEDS: TRAMADOL HCL 50 MG TABLET PO PRN (17:08)
[2020-03-29] MEDS ORDERED: DEXTROSE 50%-WATER 25 GM/50 ML DISP.SYRIN IV PRN ×2 (17:12)
[2020-03-29] MEDS ORDERED: DEXTROSE 40% GEL 15 GM TUBE PO PRN ×2 (17:12)
[2020-03-29] MEDS ORDERED: GLUCAGON,HUMAN RECOMB 1 MG INJ SUBCUT PRN (17:12)
--- NOTE | 2020-03-29 17:17 | PDOC PROGRESS REPORT ---
Subjective Progress Note for:: 03/29/20 Subjective:: Patient feels well today. Denies any fever or chills. Denies any chest pain. Still having some pain at the site of his hernia. Still having some baseline shortness of breath. Has had several bowel movements. Reason For Visit: ACUTE ON CHRONIC SYSTOLIC CONGESTIVE HEART FAILURE Physical Exam Vital Signs: Temp Pulse Resp BP Pulse Ox 97.3 F 100 16 118/68 92 03/29/20 15:02 03/29/20 15:38 03/29/20 15:38 03/29/20 15:02 03/29/20 15:38 Intake & Output 03/28/20 03/29/20 03/30/20 06:59 06:59 06:59 Intake Total 834 672 62 Output Total 1475 8510 800 Balance -641 -978 -738 Weight 71.7 kg 71.5 kg General appearance: PRESENT: no acute distress, cooperative Neck exam: ABSENT: JVD Respiratory exam: PRESENT: symmetrical, unlabored, wheezes. ABSENT: crackles, tachypnea Cardiovascular exam: PRESENT: +S1, +S2. ABSENT: tachycardia GI/Abdominal exam: PRESENT: ascites, distended, soft. ABSENT: rebound, rigid, tenderness Neurological exam: PRESENT: alert, awake Results Laboratory Results: 03/26/20 06:09 03/29/20 05:41 03/29/20 05:41 Sodium 134.2 L Potassium 4.6 D Chloride 97 L Carbon Dioxide 32 H Anion Gap 5 BUN 21 H Creatinine 0.76 Est GFR ( Amer) > 60 Glucose 95 Calcium 8.0 L Magnesium 1.7 03/24/20 03/24/20 03/25/20 22:29 22:29 01:45 Creatine Kinase 62 CK-MB (CK-2) Troponin I 0.054 NT-Pro-B Natriuret Pep 46917 H 03/25/20 03/25/20 03/25/20 01:45 10:53 10:53 Creatine Kinase 69 CK-MB (CK-2) 1.94 3.02 Troponin I 0.051 0.025 NT-Pro-B Natriuret Pep Impressions: Chest X-Ray 03/24/20 22:51 IMPRESSION: 1. Cardiomegaly with pulmonary vascular congestion. 2. Bibasilar opacities may be related to pulmonary edema however atelectasis or bilateral pneumonic process could contribute to this appearance. Possible small bilateral pleural effusions. Abdomen Ultrasound 03/26/20 00:00 IMPRESSION: 1. Mild volume of ascites in the abdomen. 2. Bowel gas limits examination. KUB X-Ray 03/26/20 00:00 IMPRESSION: Moderate constipation. Mild small-bowel distention but no evidence of mechanical obstruction on the current study. Abdomen/Pelvis CT 03/27/20 00:00 IMPRESSION: 1. Cirrhosis. Mild -moderate ascites. 2. Thickening of the cecum and ascending colonic wall, most likely due to infe ctious or inflammatory process. Assessment and Plan - Diagnosis (1) Chronic obstructive pulmonary disease with acute exacerbation Is this a current diagnosis for this admission?: Yes (2) Acute on chronic systolic congestive heart failure, NYHA class 3 Is this a current diagnosis for this admission?: Yes (3) Acute and chronic respiratory failure Qualifiers: Respiratory failure complication: hypoxia Qualified Code(s): J96.21 - Acute and chronic respiratory failure with hypoxia Is this a current diagnosis for this admission?: Yes (4) Atelectasis of left lung Is this a current diagnosis for this admission?: Yes (5) Ascites Qualifiers: Ascites type: other type Qualified Code(s): R18.8 - Other ascites Is this a current diagnosis for this admission?: Yes (6) Constipation Qualifiers: Constipation type: unspecified constipation type Qualified Code(s): K59.00 - Constipation, unspecified Is this a current diagnosis for this admission?: Yes (7) Cirrhosis of liver Qualifiers: Hepatic cirrhosis type: other cirrhosis Qualified Code(s): K74.69 - Other cirrhosis of liver Is this a current diagnosis for this admission?: Yes (8) Sinus tachycardia Is this a current diagnosis for this admission?: Yes (9) Hyponatremia Is this a current diagnosis for this admission?: Yes (10) Tobacco use disorder, severe, dependence Is this a current diagnosis for this admission?: Yes (11) Inguinal hernia of right side without obstruction or gangrene Is this a current diagnosis for this admission?: Yes - Plan Summary Summary: His COPD exacerbation has improved. He has completed about 4 days of Levaquin. Lungs sound better though still having some active wheezing. We will continue with neb treatment. Steroids have been discontinued. Patient is plan for tentative surgery tomorrow for inguinal hernia repair. I will keep patient n.p.o. past midnight. He will be evaluated by Dr. Cote tomorrow who I am told he followed outpatient regarding his inguinal hernia repair. Has been evaluated by cardiology who is on board with surgical repair. - Time Time Spent with patient: Less than 15 minutes
[2020-03-29] MEDS: SIMVASTATIN 40 MG TABLET PO SCH (22:22)
--- NOTE | 2020-03-29 23:08 | Progress Note ---
Provider Note Provider Note: CARDIOLOGY PROGRESS NOTE by Dr. Lorenza Sandoval on 03/29/2020. SUBJECTIVE: The patient denies any chest pain discomfort. His shortness of breath is much better. He has cough which is dry. He has no PND orthopnea. There is no recurrence of SVT. There is no firing of his LifeVest. He seems to be constipated. He has abdominal distention which is a combination of gas and ascites. There is no TIA CVA symptoms. He still has pain at the hernia site but there is no evidence of incarceration or strangulation. There is no evidence of obstruction of the hernia. PHYSICAL EXAMINATION: The patient is a frail build and appears to be chronically ill and malnourished. Selected Entries 03/29/20 15:02 Temperature 97.3 F Temperature Oral Source Pulse Rate 97 Respiratory 20 Rate Blood Pressure 118/68 Blood Pressure 84 Mean BP Location Right Arm BP Position Supine O2 Sat by Pulse 96 Oximetry Oxygen Flow 2.00 Rate Oxygen Delivery Nasal Cannula Method HEAD: Is atraumatic normocephalic. EYES: Pupils are equal round regular react rick to light accommodation. Extraocular movements are normal. There is no conjunctival pallor. There is no scleral icterus. EARS: Tympanic membranes are intact. External auditory canals are clear. NOSE: There is no deviated nasal septum. There is no inflammation nasal mucous membrane. MOUTH: Mucous membranes of the mouth are moist. Tongue is moist there is no ulcers. There is no bleeding from the gums THROAT: There is no redness of the oropharynx. There is no exudates. SKIN: There is no skin rashes. There is no skin lesions. There is no petechia or ecchymosis. NECK: Is supple there is mild JVD present. Carotids are equal there is no bruits. There is no lymphadenopathy. There is no goiter. There is no accessory muscle respiration use. Trachea central. LUNGS: There is diminished air entry prolonged expiration. Lungs are clear bilaterally. There is no rhonchi and today there is no wheezing. There is no rales of CHF. On percussion there is hyperresonance. HEART: S1-S2 is heard. There is no S3 gallop. There is no S4 gallop. Systolic murmur left sternal border and the apex there is no rub. ABDOMEN: Soft abdomen is distended. Bowel sounds are increased. There is shifting dullness of ascites and also on percussion there is tympanic note. There is no definite hepatosplenomegaly. There is no ascites present. There is a reducible right inguinal hernia p resent there is no tender areas masses. EXTREMITIES: Femorals are diminished. There is no femoral bruits. Leg pulses are diminished. There is trace pedal edema bilaterally. There is no DVT or cellulitis. There is no calf tenderness. There is no cyanosis or clubbing. PATTERN RULER: The patient is conscious awake alert oriented x3 with no focal deficits. PSYCHIATRIC the patient judgment insight are intact her affect is normal. Patient's 24-hour intake is 672 ml. 24-hour output is 1650 ML. Labs- All tests 24 hr 03/29/20 03/29/20 05:41 19:18 Sodium 134.2 L Potassium 4.6 D Chloride 97 L Carbon Dioxide 32 H Anion Gap 5 BUN 21 H Creatinine 0.76 Est GFR ( Amer) > 60 Est GFR (MDRD) Non-Af > 60 Glucose 95 Calcium 8.0 L Magnesium 1.7 SARS-CoV-2 (PCR) NEGATIVE Chest X-Ray 03/24/20 22:51 IMPRESSION: 1. Cardiomegaly with pulmonary vascular congestion. 2. Bibasilar opacities may be related to pulmonary edema however atelectasis or bilateral pneumonic process could contribute to this appearance. Possible small bilateral pleural effusions. Abdomen Ultrasound 03/26/20 00:00 IMPRESSION: 1. Mild volume of ascites in the abdomen. 2. Bowel gas limits examination. KUB X-Ray 03/26/20 00:00 IMPRESSION: Moderate constipation. Mild small-bowel distention but no evidence of mechanical obstruction on the current study. Abdomen/Pelvis CT 03/27/20 00:00 IMPRESSION: 1. Cirrhosis. Mild -moderate ascites. 2. Thickening of the cecum and ascending colonic wall, most likely due to infectious or inflammatory process. IMPRESSION/RECOMMENDATION: 1. Acute on chronic respiratory failure: This is secondary to acute on chronic respiratory failure acute exacerbation of COPD and noncompliance. 2. COPD with acute exacerbation: Continue anti-COPD medication steroids and antibiotics. 3. 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 Continue current diuretics and and Toprol-XL. Continue Entresto. 4. Hypotension: This is resolved. The patient is on midodrine. The patient is off dopamine. 5. Dilated cardiomyopathy and also ischemic cardiomyopathy with severely reduced LV ejection fraction. 6. Patient with a high risk for sudden : Continue LifeVest. 7. Right inguinal hernia: We will see if surgery can repair the patient's hernia once acute COPD and acute on chronic CHF are controlled 8. Coronary artery disease: No anginal symptoms. Patient has ischemic and dilated cardiomyopathy 9. Ongoing tobacco abuse: Tobacco cessation counseling given 10. Noncompliance with medication, smoking and diet. 11.Constipation: Several bowel movements. Hence will hold off on the starting the lactulose. 12. Preoperative cardiac risk assessment: The patient is lung and cardiac conditions are stable as can be. The patient will be acceptable risk for hernia repair under local and sedation. This is been discussed with the surgical hist already. Medications reviewed medical regimen and management plan discussed with AMA cardoza on the case. Medical decision making is of high complexity. 40 minutes spent as patient more than 50% time spent in direct patient care. Will follow.
[2020-03-30] MEDS: GABAPENTIN 400 MG CAPSULE PO SCH (05:02)
[2020-03-30 06:02] LABS: ALBUMIN 2.5 g/dL (3.5-5.0); ALKALINE PHOSPHATASE 106 U/L (38-126); ANION GAP 6 (5-19); ASPARTATE AMINO TRANSFERASE 18 U/L (17-59); BILIRUBIN,TOTAL 0.5 mg/dL (0.2-1.3); BLOOD UREA NITROGEN 19 mg/dL (7-20); CARBON DIOXIDE 31 mmol/L (22-30); CHLORIDE 98 mmol/L (98-107); GLUCOSE 92 mg/dL (75-110); POTASSIUM 4.2 mmol/L (3.6-5.0); TOTAL PROTEIN 5.6 g/dL (6.3-8.2)
[2020-03-30] MEDS: IPRATROPIUM BROMIDE 0.02% NEB 0.5 MG/2.5 ML AMPUL NEB SCH (07:52)
[2020-03-30] MEDS: LEVALBUTEROL HCL NEB 1.25 MG/3 ML AMPUL NEB SCH (07:52)
[2020-03-30] MEDS: BUDESONIDE NEB 0.5 MG/2 ML AMPUL NEB SCH (07:52)
--- NOTE | 2020-03-30 08:15 | PDOC CONSULTATION ---
Consultation-Blank Consultation: Patient admitted in acute congestive failure with known inguinal hernia,reducible, non-incarcerated. EF 15-20% with severe pulmonary htn by recent echo secondary to alcohol and tobacco abuse. Just off DA gtt with life vest in place, request anesthesia services for repair of said hernia. Do not feel that pt is medically optimized at this time. Should be stabilized, discharged, and consideration for what the best approach to this very sick pts care might be in the future.
[2020-03-30] MEDS: LACTULOSE SYRUP 20 GM/30 ML UDCUP PO SCH (09:37)
[2020-03-30] MEDS: POTASSIUM CHLORIDE 10 MEQ TABLET.ER PO SCH (09:41)
[2020-03-30] MEDS: CLOPIDOGREL BISULFATE 75 MG TABLET PO SCH (09:41)
[2020-03-30] MEDS: FOLIC ACID 1 MG TABLET PO SCH (09:41)
[2020-03-30] MEDS: ROFLUMILAST 500 MCG TABLET PO SCH (09:41)
[2020-03-30] MEDS: SACUBITRIL/VALSARTAN 24 MG/26 MG TABLET PO SCH (09:41)
[2020-03-30] MEDS: DIGOXIN 0.125 MG TABLET PO SCH (09:41)
[2020-03-30] MEDS: SENNOSIDES/DOCUSATE 8.6-50 MG 1 EACH TABLET PO SCH (09:41)
[2020-03-30] MEDS: MIDODRINE HCL 5 MG TABLET PO SCH (09:41)
[2020-03-30] MEDS: FAMOTIDINE INJ/PF 20 MG/2 ML SDV IV SCH (09:41)
--- NOTE | 2020-03-30 09:41 | PDOC PROGRESS REPORT ---
Subjective Progress Note for:: 03/30/20 Subjective:: 70-year-old male with a reducible right inguinal hernia. He complains of pain in his right groin. He denies nausea, vomiting, fevers, chills, headache, dizziness, shortness of breath, chest pain. Reason For Visit: ACUTE ON CHRONIC SYSTOLIC CONGESTIVE HEART FAILURE Physical Exam Vital Signs: Temp Pulse Resp BP Pulse Ox 97.5 F 96 19 104/63 100 03/30/20 08:03 03/30/20 08:03 03/30/20 08:03 03/30/20 08:03 03/30/20 08:03 Intake & Output 03/29/20 03/30/20 03/31/20 06:59 06:59 06:59 Intake Total 672 1146 Output Total 1650 2300 Balance -978 -1154 Weight 71.5 kg 71.3 kg General appearance: PRESENT: other - Elderly, frail Head exam: PRESENT: atraumatic, normocephalic Eye exam: PRESENT: PERRLA. ABSENT: scleral icterus Mouth exam: PRESENT: moist, neck supple Neck exam: ABSENT: meningismus, tenderness, tracheal deviation, tracheostomy Respiratory exam: ABSENT: chest wall tenderness, tachypnea Cardiovascular exam: PRESENT: other - Life vest in place. ABSENT: tachycardia GI/Abdominal exam: PRESENT: ascites, soft, other - Reducible right inguinal hernia present. ABSENT: tenderness Rectal exam: PRESENT: deferred Extremities exam: ABSENT: clubbing Musculoskeletal exam: ABSENT: deformity Neurological exam: PRESENT: alert, awake, oriented to person, oriented to place, oriented to time, oriented to situation, CN II-XII grossly intact. ABSENT: motor sensory deficit Psychiatric exam: PRESENT: agitated. ABSENT: anxious, depressed Focused psych exam: ABSENT: delusional Skin exam: ABSENT: cyanosis, jaundice Results Laboratory Results: 03/26/20 06:09 03/30/20 05:19 03/30/20 05:19 Sodium 134.7 L Potassium 4.2 Chloride 98 Carbon Dioxide 31 H Anion Gap 6 BUN 19 Creatinine 0.73 Est GFR ( Amer) > 60 Glucose 92 Calcium 8.0 L Magnesium 1.6 Total Bilirubin 0.5 AST 18 Alkaline Phosphatase 106 Total Protein 5.6 L Albumin 2.5 L 03/25/20 01:45 Blood Blood Culture - Final NO GROWTH IN 5 DAYS 03/24/20 22:29 Blood Blood Culture - Final NO GROWTH IN 5 DAYS 03/24/20 03/24/20 03/25/20 22:29 22:29 01:45 Creatine Kinase 62 CK-MB (CK-2) Troponin I 0.054 NT-Pro-B Natriuret Pep 50601 H 03/25/20 03/25/20 03/25/20 01:45 10:53 10:53 Creatine Kinase 69 CK-MB (CK-2) 1.94 3.02 Troponin I 0.051 0.025 NT-Pro-B Natriuret Pep Impressions: Chest X-Ray 03/24/20 22:51 IMPRESSION: 1. Cardiomegaly with pulmonary vascular congestion. 2. Bibasilar opacities may be related to pulmonary edema however atelectasis or bilateral pneumonic process could contribute to this appearance. Possible small bilateral pleural effusions. Abdomen Ultrasound 03/26/20 00:00 IMPRESSION: 1. Mild volume of ascites in the abdomen. 2. Bowel gas limits examination. KUB X-Ray 03/26/20 00:00 IMPRESSION: Moderate constipation. Mild small-bowel distention but no evidence of mechanical obstruction on the current study. Abdomen/Pelvis CT 03/27/20 00:00 IMPRESSION: 1. Cirrhosis. Mild -moderate ascites. 2. Thickening of the cecum and ascending colonic wall, most likely due to infectious or inflammatory process. Assessment & Plan - Diagnosis (1) Inguinal hernia of right side without obstruction or gangrene Is this a current diagnosis for this admission?: Yes - Plan Summary Plan Summary: 70-year-old male with a reducible right inguinal hernia. I have discussed the case with anesthesia today. They are recommending discharge from the hospital with "medical optimization". They have also recommended that surgery be performed at a tertiary center, as resources are limited at this institution. At this time we will have to delay surgical intervention, at the request of anesthesia. I will try to arrange for an anesthesia evaluation as an outpatient. Surgery will sign off at this time. Please renotify with any questions or concerns.
--- NOTE | 2020-03-30 11:46 | Progress Note ---
Provider Note Provider Note: CARDIOLOGY PROGRESS NOTE by Dr. Lorenza Sandoval on 03/30/2020. SUBJECTIVE: The patient denies any chest pain or discomfort. There is no shortness of breath. There is no PND orthopnea or leg edema. As per attending physician anesthesia refused to let the patient have surgery. The patient complains of generalized weakness. There is no arrhythmias seen on the monitor. The patient's blood pressure is stable. PHYSICAL EXAMINATION: The patient appears to be a frail build and chronically ill and malnourished, but in no acute distress. Selected Entries 03/30/20 11:53 Temperature 98.0 F Temperature Oral Source Pulse Rate 94 Respiratory 19 Rate Blood Pressure 110/58 L Blood Pressure 75 Mean BP Location Right Arm BP Position Supine O2 Sat by Pulse 92 Oximetry Oxygen Flow 2.00 Rate Oxygen Delivery Nasal Cannula Method HEAD: Is atraumatic normocephalic. EYES: Pupils are equal round regular reactive to light accommodation. Extraocular movements are normal. There is no conjunctival pallor. There is no scleral icterus. EARS: Tympanic membranes are intact. External auditory canals are clear. NOSE: There is no deviated nasal septum. There is no inflammation nasal mucous membrane. MOUTH: Mucous membranes of the mouth are moist. Tongue is moist there is no ulcers. There is no bleeding from the gums THROAT: There is no redness of the oropharynx. There is no exudates. SKIN: There is no skin rashes. There is no skin lesions. There is no petechia or ecchymosis. NECK: Is supple there is mild JVD present. Carotids are equal there is no bruits. There is no lymphadenopathy. There is no goiter. There is no accessory muscle respiration use. Trachea central. LUNGS: There is diminished air entry prolonged expiration. Lungs are clear bilaterally. There is no rhonchi and today there is no wheezing. There is no rales of CHF. On percussion there is hyperresonance. HEART: S1-S2 is heard. There is no S3 gallop. There is no S4 gallop. Systolic murmur left sternal border and the apex there is no rub. ABDOMEN: Soft abdomen is distended. Bowel sounds are increased. There is shifting dullness of ascites and also on percussion there is tympanic note. There is no definite hepatosplenomegaly. There is no ascites present. There is a reducible right inguinal hernia present there is no tender areas masses. EXTREMITIES: Femorals are diminished. There is no femoral bruits. Leg pulses are diminished. There is trace pedal edema bilaterally. There is no DVT or cellulitis. There is no calf tenderness. There is no cyanosis or clubbing. TUBING DRIER: The patient is conscious awake alert oriented x3 with no focal deficits. PSYCHIATRIC the patient judgment insight are intact her affect is normal. Patient's 24-hour intake is 1146 ml. 24-hour output is 2300 ML. Chest X-Ray 03/24/20 22:51 IMPRESSION: 1. Cardiomegaly with pulmonary vascular congestion. 2. Bibasilar opacities may be related to pulmonary edema however atelectasis or bilateral pneumonic process could contribute to this appearance. Possible small bilateral pleural effusions. Abdomen Ultrasound 03/26/20 00:00 IMPRESSION: 1. Mild volume of ascites in the abdomen. 2. Bowel gas limits examination. KUB X-Ray 03/26/20 00:00 IMPRESSION: Moderate constipation. Mild small-bowel distention but no evidence of mechanical obstruction on the current study. Abdomen/Pelvis CT 03/27/20 00:00 IMPRESSION: 1. Cirrhosis. Mild -moderate ascites. 2. Thickening of the cecum and ascending colonic wall, most likely due to infectious or inflammatory process. Labs- All tests 24 hr 03/30/20 05:19 Sodium 134.7 L Potassium 4.2 Chloride 98 Carbon Dioxide 31 H Anion Gap 6 BUN 19 Creatinine 0.73 Est GFR ( Amer) > 60 Est GFR (MDRD) Non-Af > 60 Glucose 92 Calcium 8.0 L Magnesium 1.6 Total Bilirubin 0.5 Direct Bilirubin 0.0 Neonat Total Bilirubin Not Reportable Neonat Direct Bilirubin Not Reportable Neonat Indirect Bili Not Reportable AST 18 ALT 9 Alkaline Phosphatase 106 Total Protein 5.6 L Albumin 2.5 L IMPRESSION/RECOMMENDATION: 1. Acute on chronic respiratory failure: This is secondary to acute on chronic respiratory failure acute exacerbation of COPD and noncompliance. 2. COPD with acute exacerbation: Continue anti-COPD medication steroids and antibiotics. 3. 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 Continue current diuretics and and Toprol-XL. Continue Entresto. 4. Hypotension: This is resolved. The patient is on midodrine. The patient is off dopamine. 5. Dilated cardiomyopathy and also ischemic cardiomyopathy with severely reduced LV ejection fraction. 6. Patient with a high risk for sudden : Continue LifeVest. 7. Right inguinal hernia: We will see if surgery can repair the patient's hernia once acute COPD and acute on chronic CHF are controlled 8. Coronary artery disease: No anginal symptoms. Patient has ischemic and dilated cardiomyopathy 9. Ongoing tobacco abuse: Tobacco cessation counseling given 10. Noncompliance with medication, smoking and diet. 11.Constipation: Resolved 12. As per attending physician anesthesia has refused to let the patient have surgery. Medications reviewed medical regimen and management plan discussed with RN provider on the case. Medical decision making is of high complexity. 40 minutes spent as patient more than 50% time spent in direct patient care. Cardiac status is stable. We will sign off and follow the patient in the office.
--- NOTE | 2020-03-30 12:54 | PDOC DISCHARGE SUMMARY ---
Impression - Admit/DC Date/PCP Admission Date/Primary Care Provider: 03/25/20 00:29 GENNY ZARCO MD Discharge Date: 03/30/20 - Discharge Diagnosis (1) Chronic obstructive pulmonary disease with acute exacerbation Is this a current diagnosis for this admission?: Yes (2) Acute on chronic systolic congestive heart failure, NYHA class 3 Is this a current diagnosis for this admission?: Yes (3) Acute and chronic respiratory failure Is this a current diagnosis for this admission?: Yes (4) Atelectasis of left lung Is this a current diagnosis for this admission?: Yes (5) Ascites Is this a current diagnosis for this admission?: Yes (6) Constipation Is this a current diagnosis for this admission?: Yes (7) Cirrhosis of liver Is this a current diagnosis for this admission?: Yes (8) Sinus tachycardia Is this a current diagnosis for this admission?: Yes (9) Hyponatremia Is this a current diagnosis for this admission?: Yes (10) Tobacco use disorder, severe, dependence Is this a current diagnosis for this admission?: Yes (11) Inguinal hernia of right side without obstruction or gangrene Is this a current diagnosis for this admission?: Yes - Assessment Summary: His COPD exacerbation has improved. He has completed about 4 days of Levaquin. Lungs sound better though still having some active wheezing. We will continue with neb treatment. Steroids have been discontinued. Patient is plan for tentative surgery tomorrow for inguinal hernia repair. I will keep patient n.p.o. past midnight. He will be evaluated by Dr. Cote tomorrow who I am told he followed outpatient regarding his inguinal hernia repair. Has been evaluated by cardiology who is on board with surgical repair. - Additional Information Resuscitation Status: Full Code Discharge Diet: Cardiac, Diabetic Discharge Activity: Activity As Tolerated, Balance Activity w/Rest, Weigh Daily Referrals: MICK SAN MD [ACTIVE STAFF] - GENNY ZARCO MD [Primary Care Provider] - 04/03/20 12:45 pm (Patient needs to bring a list of medications currently taking.) CL COTE MD [ACTIVE STAFF] - Prescriptions: Spironolactone [Aldactone 25 mg Tablet] 25 mg PO DAILY #30 tablet Roflumilast [Daliresp 500 Mcg Tablet] 500 mcg PO DAILY #30 tablet Ipratropium/Albuterol Sulfate [Duoneb 3 ml Ampul] 3 ml NEB RTQ6HP PRN #50 vial.neb PRN Reason: Sacubitril/Valsartan [Entresto 24 mg/26 mg Tablet] 1 tab PO Q12 #60 tablet Lactulose 20 gm PO DAILY #60 packet Digoxin [Lanoxin 0.125 mg Tablet] 0.125 mg PO DAILY #30 tablet Furosemide [Lasix 40 mg Tablet] 40 mg PO DAILY #30 tablet Nicotine [Nicoderm 21 mg/24 Hr Transderm Patch] 1 each TD DAILYP PRN #14 patch.td24 PRN Reason: Oxycodone HCl [Oxy-Ir 5 mg Tablet] 5 mg PO Q8HP PRN #10 tab PRN Reason: Clopidogrel Bisulfate [Plavix 75 mg Tablet] 75 mg PO DAILY #30 tablet Midodrine HCl [Proamatine 5 mg Tablet] 10 mg PO TID #180 tablet Simvastatin 20 mg PO QHS #30 tablet Budesonide/Formoterol Fumarate [Symbicort HFA 160-4.5 mcg Inhaler 6 gm] 2 puff IH Q12 #1 inhaler Metoprolol Succinate [Toprol Xl 25 mg Tab.sr] 25 mg PO DAILY #30 tab.sr.24h Tramadol HCl [Ultram 50 mg Tablet] 50 mg PO Q6HP PRN #20 tablet PRN Reason: Home Medications: Folic Acid [Folvite 1 mg Tablet] 1 mg PO DAILY 10/16/19 Gabapentin [Neurontin 300 mg Capsule] 1,200 mg PO Q8 10/16/19 Ketoconazole 1 applic TOP TIDP PRN 10/16/19 Cyanocobalamin (Vitamin B-12) [Vitamin B-12 Inj 1000 Mcg/1 ml Vial] 1 ml IM .MONTHLY 12/01/19 Albuterol Sulfate [Ventolin Hfa 8 gm Mdi (1 Mdi/ER Disp)] 2 puff IH Q6HP PRN 03/26/20 Thiamine HCl [Thiamine 100 mg Tablet] 100 mg PO DAILY 03/26/20 Budesonide/Formoterol Fumarate [Symbicort HFA 160-4.5 mcg Inhaler 6 gm] 2 puff IH Q12 #1 inhaler 03/30/20 Clopidogrel Bisulfate [Plavix 75 mg Tablet] 75 mg PO DAILY #30 tablet 03/30/20 Digoxin [Lanoxin 0.125 mg Tablet] 0.125 mg PO DAILY #30 tablet 03/30/20 Furosemide [Lasix 40 mg Tablet] 40 mg PO DAILY #30 tablet 03/30/20 Ipratropium/Albuterol Sulfate [Duoneb 3 ml Ampul] 3 ml NEB RTQ6HP PRN #50 vial.neb 03/30/20 Lactulose 20 gm PO DAILY #60 packet 03/30/20 Metoprolol Succinate [Toprol Xl 25 mg Tab.sr] 25 mg PO DAILY #30 tab.sr.24h 03/30/20 Midodrine HCl [Proamatine 5 mg Tablet] 10 mg PO TID #180 tablet 03/30/20 Nicotine [Nicoderm 21 mg/24 Hr Transderm Patch] 1 each TD DAILYP PRN #14 patch.td24 03/30/20 Oxycodone HCl [Oxy-Ir 5 mg Tablet] 5 mg PO Q8HP PRN #10 tab 03/30/20 Roflumilast [Daliresp 500 Mcg Tablet] 500 mcg PO DAILY #30 tablet 03/30/20 Sacubitril/Valsartan [Entresto 24 mg/26 mg Tablet] 1 tab PO Q12 #60 tablet 03/30/20 Simvastatin 20 mg PO QHS #30 tablet 03/30/20 Spironolactone [Aldactone 25 mg Tablet] 25 mg PO DAILY #30 tablet 03/30/20 Tramadol HCl [Ultram 50 mg Tablet] 50 mg PO Q6HP PRN #20 tablet 03/30/20 History of Present Illiness History of Present Illness: According to admitting provider: DURAN TELLES is a 70 year old male who presented the emergency room with acute dyspnea. He admits suddenly developing severe dyspnea on the evening of 03/24/2020. His dyspnea was worsened with any activity or exertion. He immediately called EMS to be transported to the hospital. He denies other associated or accompanying signs and symptoms. He admits numerous prior similar episodes related to his COPD and CHF. He admits that he continues to smoke cigarettes. He has not identified any additional aggravating or ameliorating factors for his dyspnea. He was noted to have an O2 sat of 87% on room air upon EMS arrival. He was provided with supplemental oxygen and taken to the emergency room. In the ER he was found to have continued need for supplemental oxygen in order to maintain adequate O2 saturation and was noted to have evidence of pulmonary edema on his chest x-ray. He was subsequently admitted to the hospital for further evaluation treatment Hospital Course Hospital Course: Admitted to the hospital for shortness of breath. Found to be having COPD exacerbation as well as acute on chronic CHF. Treated for COPD exacerbation with frequent inhalers as well as steroids IV initially then p.o and Levaquin which he received for about 5 days. He was also diuresed with IV Lasix initially and then transition back to p.o. Lasix. He was put on dopamine drip only very briefly for less than 24 hours after initially had been admitted with hypotension. Notably patient has chronic hypotension for which he takes midodrine 3 times a day. His midodrine was resumed that his dopamine was discontinued right away. He achieved euvolemia. He was also treated for abdominal distention and found to have severe constipation. He received bowel regimen including MiraLAX and had a substantial amount of bowel movement after which his abdominal distention improved. His abdominal distention was likely also contributing to his sensation of shortness of breath. He was subsequently placed on lactulose to help prevent constipation which should also help him given that he has cirrhosis. Patient has been resumed on his Entresto, Toprol- XL, Aldactone and Lasix. He is to continue midodrine given his low blood pressures typically from his cirrhosis. He is to follow-up with Dr. Wright for management of cirrhosis and possible referral to director microbiology. I have also requested him to seek treatment via hepatology for his active hepatitis C virus infection. We discussed with surgery about repairing his painful inguinal hernia but anesthesiology has declined stating that it is unsafe to proceed with this at this time and have recommended that he have outpatient follow-up to get this scheduled. He will follow-up with Dr. Comer for continued management of his CHF. I have also referred him to have a primary care provider scheduled as he does not seem to have one at this time. Notably, patient's oxygenation has been very good since being diuresed and treated for a COPD and actually he maintains above 90% on about 1 to 2 L nasal cannula. I have instructed him that he does not need to bump up his nasal cannula all the way to 3 as currently his oxygenation is 100% on 2 L. Home health set up and custodial for management of medications at home and monitoring of his vital signs. I have given him a refill for his medications. Physical Exam Vital Signs: Temp Pulse Resp BP Pulse Ox 97.5 F 96 19 94/48 L 100 03/30/20 12:10 03/30/20 12:10 03/30/20 12:10 03/30/20 12:10 03/30/20 12:10 Intake & Output 03/29/20 03/30/20 03/31/20 06:59 06:59 06:59 Intake Total 672 1146 Output Total 1650 2300 Balance -978 -1154 Weight 71.5 kg 71.3 kg General appearance: PRESENT: no acute distress, cooperative Neck exam: ABSENT: JVD Respiratory exam: PRESENT: symmetrical, unlabored, wheezes - Mild. ABSENT: accessory muscle use, retraction, tachypnea Cardiovascular exam: PRESENT: RRR, +S1, +S2. ABSENT: tachycardia GI/Abdominal exam: PRESENT: soft. ABSENT: rebound, rigid, tenderness Neurological exam: PRESENT: alert, awake Results Laboratory Results: WBC 6.9 10^3/uL (4.0-10.5) 03/26/20 06:09 RBC 4.38 10^6/uL (4.35-5.55) 03/26/20 06:09 Hgb 11.4 g/dL (13.5-17.0) L 03/26/20 06:09 Hct 34.7 % (37.9-51.0) L 03/26/20 06:09 MCV 79 fl (80-97) L 03/26/20 06:09 MCH 26.0 pg (27.0-33.4) L 03/26/20 06:09 MCHC 32.8 g/dL (32.0-36.0) 03/26/20 06:09 RDW 18.2 % (11.5-14.0) H 03/26/20 06:09 Plt Count 276 10^3/uL (150-450) 03/26/20 06:09 Lymph % (Auto) 12.5 % (13-45) L 03/26/20 06:09 [place] % (Auto) 9.0 % (3-13) 03/26/20 06:09 Eos % (Auto) 1.4 % (0-6) 03/26/20 06:09 Baso % (Auto) 0.6 % (0-2) 03/26/20 06:09 Absolute Neuts (auto) 5.3 10^3/uL (1.7-8.2) 03/26/20 06:09 Absolute Lymphs (auto) 0.9 10^3/uL (0.5-4.7) 03/26/20 06:09 Absolute Monos (auto) 0.6 10^3/uL (0.1-1.4) 03/26/20 06:09 Absolute Eos (auto) 0.1 10^3/uL (0.0-0.6) 03/26/20 06:09 Absolute Basos (auto) 0.0 10^3/uL (0.0-0.2) 03/26/20 06:09 Seg Neutrophils % 76.5 % (42-78) 03/26/20 06:09 PT 16.0 SEC (11.4-15.4) H 03/26/20 06:09 INR 1.27 03/26/20 06:09 APTT 36.8 SEC (23.5-35.8) H 03/26/20 06:09 VBG pH 7.31 (7.30-7.42) 03/24/20 22:29 VBG pCO2 62.4 mmHg (35-63) 03/24/20 22:29 VBG HCO3 31.0 mmol/L (20-32) 03/24/20 22:29 VBG Base Excess 3.4 mmol/L 03/24/20 22:29 Sodium 134.7 mmol/L (137-145) L 03/30/20 05:19 Potassium 4.2 mmol/L (3.6-5.0) 03/30/20 05:19 Chloride 98 mmol/L (98-107) 03/30/20 05:19 Carbon Dioxide 31 mmol/L (22-30) H 03/30/20 05:19 Anion Gap 6 (5-19) 03/30/20 05:19 BUN 19 mg/dL (7-20) 03/30/20 05:19 Creatinine 0.73 mg/dL (0.52-1.25) 03/30/20 05:19 Est GFR ( Amer) > 60 (>60) 03/30/20 05:19 Est GFR (MDRD) Non-Af > 60 (>60) 03/30/20 05:19 Glucose 92 mg/dL (75-110) 03/30/20 05:19 POC Glucose 82 mg/dL (70-110) 03/25/20 21:05 Lactic Acid 1.9 mmol/L (0.7-2.1) 03/26/20 06:09 Calcium 8.0 mg/dL (8.4-10.2) L 03/30/20 05:19 Magnesium 1.6 mg/dL (1.6-2.3) 03/30/20 05:19 Total Bilirubin 0.5 mg/dL (0.2-1.3) 03/30/20 05:19 Direct Bilirubin 0.0 mg/dL (0.0-0.4) 03/30/20 05:19 Neonat Total Bilirubin Not Reportable 03/30/20 05:19 Neonat Direct Bilirubin Not Reportable 03/30/20 05:19 Neonat Indirect Bili Not Reportable 03/30/20 05:19 AST 18 U/L (17-59) 03/30/20 05:19 ALT 9 U/L (<50) 03/30/20 05:19 Alkaline Phosphatase 106 U/L (38-126) 03/30/20 05:19 Creatine Kinase 69 U/L (55-170) 03/25/20 10:53 CK-MB (CK-2) 3.02 ng/mL (<4.55) 03/25/20 10:53 Troponin I 0.025 ng/mL 03/25/20 10:53 NT-Pro-B Natriuret Pep 22053 pg/mL (<125) H 03/24/20 22:29 Total Protein 5.6 g/dL (6.3-8.2) L 03/30/20 05:19 Albumin 2.5 g/dL (3.5-5.0) L 03/30/20 05:19 Digoxin 0.84 ng/mL (0.8-2.0) 03/26/20 06:09 SARS-CoV-2 (PCR) NEGATIVE (NEGATIVE) 03/29/20 19:18 03/24/20 03/24/20 03/25/20 22:29 22:29 01:45 CK-MB (CK-2) 1.94 Troponin I 0.054 0.051 NT-Pro-B Natriuret Pep 68068 H 03/25/20 10:53 CK-MB (CK-2) 3.02 Troponin I 0.025 NT-Pro-B Natriuret Pep Impressions: Chest X-Ray 03/24/20 22:51 IMPRESSION: 1. Cardiomegaly with pulmonary vascular congestion. 2. Bibasilar opacities may be related to pulmonary edema however atelectasis or bilateral pneumonic process could contribute to this appearance. Possible small bilateral pleural effusions. Abdomen Ultrasound 03/26/20 00:00 IMPRESSION: 1. Mild volume of ascites in the abdomen. 2. Bowel gas limits examination. KUB X-Ray 03/26/20 00:00 IMPRESSION: Moderate constipation. Mild small-bowel distention but no evidence of mechanical obstruction on the current study. Abdomen/Pelvis CT 03/27/20 00:00 IMPRESSION: 1. Cirrhosis. Mild -moderate ascites. 2. Thickening of the cecum and ascending colonic wall, most likely due to infectious or inflammatory process. Plan Time Spent: Greater than 30 Minutes Stroke Is this a Stroke Patient?: No Acute Heart Failure - Is this a Heart Failure Patient?: No
[2020-03-30 13:50] VITALS: BP 110/58
== END 2020-03-30 13:15 | disposition home health service (06) | DRG 291 ==
LOC: ER 22:18 → EH 03-25 00:29 → 3W 03-25 02:14
PROVIDERS: ADMIT Emergency Medicine; ATTEND Internal Medicine
DX: I11.0 Hypertensive heart disease with heart failure (principal); J96.21 Acute and chronic respiratory failure with hypoxia; J44.1 Chronic obstructive pulmonary disease with (acute) exacerbation; R18.8 Other ascites; J98.11 Atelectasis; E87.1 Hypo-osmolality and hyponatremia; I50.23 Acute on chronic systolic (congestive) heart failure; K40.90 Unilateral inguinal hernia, without obstruction or gangrene, not specified as recurrent; I25.10 Atherosclerotic heart disease of native coronary artery without angina pectoris; I73.9 Peripheral vascular disease, unspecified; E03.9 Hypothyroidism, unspecified; K59.00 Constipation, unspecified; R00.0 Tachycardia, unspecified; F17.210 Nicotine dependence, cigarettes, uncomplicated; Z60.2 Problems related to living alone; Z20.828 Contact with and (suspected) exposure to other viral communicable diseases; Z79.51 Long term (current) use of inhaled steroids; Z79.52 Long term (current) use of systemic steroids; Z79.899 Other long term (current) drug therapy; Z91.11 Patient's noncompliance with dietary regimen; Z91.19 Patient's noncompliance with other medical treatment and regimen
CPT/HCPCS: 36415; 71045; 74018; 74176; 76705; 80048; 80053; 80162; 82550; 82553; 82803; 82962; 83605; 83735; 83880; 84484; 85025; 85610; 85730; 87040; 87635; 93005; 93010; 94640; 94660; 94668; 96365; 96366; 99285; C9803; J1160; J1265; J1644; J1940; J1956; J2270; J2550; J2920; J3475; J3480; J3490; J7512; P9047; S0028

== ENCOUNTER 2020-03-31 19:47 | Emergency (ER) | payer OTHER, MEDICARE ==
[2020-03-31] MEDS ORDERED: IPRATROPIUM/ALBUTEROL 0.5-2.5 MG/3 ML AMPUL NEB ONE (20:02)
[2020-03-31 20:32] LABS: ABSOLUTE BASOPHILS # (AUTO) 0.1 10^3/uL (0.0-0.2); ABSOLUTE EOSINOPHILS # (AUTO) 0.4 10^3/uL (0.0-0.6); ABSOLUTE MONOCYTES (AUTO) 1.1 10^3/uL (0.1-1.4); ABSOLUTE NEUT (AUTO) 5.1 10^3/uL (1.7-8.2); BASOPHILS % (AUTO) 0.8 % (0-2); EOSINOPHILS % (AUTO) 5.3 % (0-6); HEMOGLOBIN 10.7 g/dL (13.5-17.0); LYMPHOCYTES % (AUTO) 13.4 % (13-45); MEAN CORPUSCULAR HEMOGLOBIN 25.5 pg (27.0-33.4); MEAN CORPUSCULAR HGB CONC 32.5 g/dL (32.0-36.0); MEAN CORPUSCULAR VOLUME 79 fl (80-97); MONOCYTES % (AUTO) 14.4 % (3-13); PLATELET COUNT 178 10^3/uL (150-450); RED CELL DISTRIBUTION WIDTH 17.7 % (11.5-14.0); SEGMENTED NEUTROPHILS % (AUTO) 66.1 % (42-78); TOTAL CELLS COUNTED % (AUTO) 100 %; WHITE BLOOD COUNT 7.7 10^3/uL (4.0-10.5)
[2020-03-31 20:34] LABS: VENOUS BLOOD HCO3 28.2 mmol/L (20-32); VENOUS BLOOD PCO2 40.4 mmHg (35-63); VENOUS BLOOD PH 7.46 (7.30-7.42)
--- NOTE | 2020-03-31 20:45 | RADIOLOGY REPORT (SQ) ---
EXAM DESCRIPTION: XR CHEST 1 VIEW COMPLETED DATE/TME: 03/31/2020 20:01 CLINICAL HISTORY: 70 years, Male, SOB COMPARISON: None. NUMBER OF VIEWS: TECHNIQUE: LIMITATIONS: None. FINDINGS: No evidence of pulmonary infiltrate or pleural effusion. There is cardiomegaly. Pulmonary vascularity appears normal. There are atherosclerotic changes and tortuosity of the thoracic aorta. IMPRESSION: No acute finding. Other findings as described. copyright 2010 [employer]- All Rights Reserved
[2020-03-31 20:51] LABS: ALBUMIN 2.9 g/dL (3.5-5.0); ALKALINE PHOSPHATASE 141 U/L (38-126); ANION GAP 8 (5-19); ASPARTATE AMINO TRANSFERASE 26 U/L (17-59); BILIRUBIN,TOTAL 0.4 mg/dL (0.2-1.3); BLOOD UREA NITROGEN 16 mg/dL (7-20); CALCIUM 8.1 mg/dL (8.4-10.2); CARBON DIOXIDE 29 mmol/L (22-30); CHLORIDE 97 mmol/L (98-107); GLUCOSE 107 mg/dL (75-110); POTASSIUM 3.3 mmol/L (3.6-5.0); TOTAL PROTEIN 6.3 g/dL (6.3-8.2)
--- NOTE | 2020-03-31 21:53 | ER Document Report ---
ED General - General Chief Complaint: Shortness Of Breath Stated Complaint: SHORTNESS OF BREATH Time Seen by Provider: 03/31/20 21:28 Primary Care Provider: [facility] [Primary Care Provider] - Follow up as needed TRAVEL OUTSIDE OF THE [place] IN LAST 30 DAYS: No - HPI Notes: Patient is a 70-year-old male, smoker, with a known history of COPD as well as congestive heart failure, who presents to the emergency department for evaluation. He was discharged from the hospital yesterday. He states he was feeling short of breath, but was given a breathing treatment. He states the b reathing treatments that he has at home are different than the ones administered via EMS and at the hospital. He states now that he has had the breathing treatment, he has no longer short of breath. He denies any chest pain. He states this is all typical of how he feels frequently. He is awaiting a new prescription to be delivered from the [place], which he expected today, which is the normal breathing treatments he gets from here. His heart rate is mildly elevated, but the patient states he has not yet taken his nighttime medications, including his metoprolol. He states he really wants to go home now. He states he feels back to baseline, has no acute complaints or concerns at this time. - Related Data Allergies/Adverse Reactions: vancomycin Allergy (Unknown, Verified 02/07/20 23:14) azithromycin Allergy (Verified 02/07/20 23:14) hydrocodone Allergy (Verified 02/07/20 23:14) Penicillins Allergy (Verified 02/07/20 23:14) acetaminophen Adverse Reaction (Verified 02/07/20 23:14) ketorolac [From Toradol] Adverse Reaction (Verified 02/07/20 23:14) Nausea Home Medications: Medication reviewed from discharge summary of yesterday Past Medical History - General Information source: Patient - Social History Smoking Status: Current Some Day Smoker Family History: CAD, COPD, Hypertension, Malignancy Patient has homicidal ideation: No - Past Medical History Cardiac Medical History: Reports: Hx Congestive Heart Failure, Hx Coronary Artery Disease, Hx Heart Attack, Hx Hypertension, Hx Peripheral Vascular Disease - Chronic venous stasis Denies: Hx Atrial Fibrillation, Hx DVT, Hx Hypercholesterolemia, Hx Pulmonary Embolism Pulmonary Medical History: Reports: Hx Asthma, Hx Bronchitis, Hx COPD, Hx Pneumonia, Hx Respiratory Failure Neurological Medical History: Denies: Hx Seizures Endocrine Medical History: Reports: Hx Hypothyroidism. Denies: Hx Diabetes Mellitus Type 1, Hx Diabetes Mellitus Type 2, Hx Hyperthyroidism GI Medical History: Reports: Hx Cirrhosis - Alcoholic cirrhosis, Hx Hiatal Hernia. Denies: Hx Crohn's Disease, Hx Hepatitis, Hx Ulcerative Colitis Musculoskeletal Medical History: Denies Hx Arthritis, Denies Hx Gout Skin Medical History: Denies Hx Eczema, Denies Hx Psoriasis Psychiatric Medical History: Reports: Hx Post Traumatic Stress Disorder Denies: Hx Depression Infectious Medical History: Denies: Hx Hepatitis Past Surgical History: Reports: Hx Abdominal Surgery, Hx Cholecystectomy, Hx Orthopedic Surgery - Left knee surgery, left wrist surgery, Other - Gallbladder - Immunizations Immunizations up to date: Yes Hx Diphtheria, Pertussis, Tetanus Vaccination: Yes Hx Pneumococcal Vaccination: 09/14/16 Review of Systems - Review of Systems Respiratory: See HPI -: Yes All other systems reviewed and negative Physical Exam - Vital signs Vitals: Temp 99.8 F 03/31/20 19:47 - Notes Notes: This is a frail-appearing 70-year-old male, who appears chronically ill, but in no acute distress. He is wearing a LifeVest, moves about the bed without apparent dyspnea, normal work of breathing, normal respiratory rate. Vital signs reviewed, please refer to chart. Head is normocephalic, atraumatic. Pupils equal round, reactive to light. Neck is supple without meningismus. Heart is regular rate and rhythm. Lungs reveal mildly diminished breath sounds without wheezes, rales, rhonchi. Abdomen is soft, nontender, normoactive bowel sounds throughout. Extremities without cyanosis, clubbing. Posterior calves are nontender. Peripheral pulses are equal. Skin is warm and dry. Patient is awake, alert, neurological exam is nonfocal. Course - Re-evaluation Re-evalutation: 03/31/20 21:55 Patient presents to the emergency department for evaluation. His heart rate is elevated but otherwise he is oxygenating well on his normal O2. He has no complaints after receiving a breathing treatment. He is already on a steroid taper at home. The patient states he wishes to go home. He states he wants to take his medications at home as prescribed. He states that his heart rate is frequently elevated, is not uncommon for it to be over 110-120. He states he needs to take his medication. He does not wish to stay in the hospital for further evaluation. I explained to him that he needs to follow-up closely with his primary care provider and floor layer on Thursday. I explained to him that he should take his medications as prescribed. He voiced understanding to this. He is to return to the ED with worsening or new concerning symptoms of any sort. 03/31/20 21:56 Please note the patient is oxygenating well on his normal O2, his proBNP is lower than it has been in some time, and his labs are otherwise largely unremarkable. - Vital Signs Vital signs: Temp Pulse Resp BP Pulse Ox 99.8 F 21 H 119/75 100 03/31/20 19:50 03/31/20 20:14 03/31/20 20:14 03/31/20 20:14 - Laboratory Result Diagrams: 03/31/20 20:08 03/31/20 20:08 Laboratory results interpreted by me: 03/31/20 03/31/20 03/31/20 20:08 20:08 20:08 RBC 4.20 L Hgb 10.7 L Hct 33.0 L MCV 79 L MCH 25.5 L RDW 17.7 H [place] % (Auto) 14.4 H VBG pH Sodium 133.5 L Potassium 3.3 L Chloride 97 L Calcium 8.1 L Alkaline Phosphatase 141 H NT-Pro-B Natriuret Pep 3710 H Albumin 2.9 L 03/31/20 20:08 RBC Hgb Hct MCV MCH RDW [place] % (Auto) VBG pH 7.46 H Sodium Potassium Chloride Calcium Alkaline Phosphatase NT-Pro-B Natriuret Pep Albumin - Diagnostic Test Radiology reviewed: Reports reviewed Radiology results interpreted by me: 03/31/20 21:56 Chest X-Ray 03/31/20 20:01 IMPRESSION: No acute finding. Other findings as described. copyright 2010 [employer]- All Rights Reserved - EKG Interpretation by Me Additional EKG results interpreted by me: 03/31/20 21:56 Sinus tachycardia with a rate of 120 bpm. PAC noted. Left axis deviation. No acute ST changes concerning for ischemia or infarction. Discharge - Discharge Clinical Impression: Dyspnea Condition: Stable Disposition: HOME, SELF-CARE Instructions: Chronic Obstructive Lung Disease ([facility]), Dyspnea, Nonspecific ([facility]) Additional Instructions: Please go home and take your medications as prescribed. Follow-up with your primary care provider as well as her floor layer on Thursday. Return to the emergency department if you develop worsening or new concerning symptoms of any sort. Referrals: [facility] [Primary Care Provider] - Follow up as needed
[2020-03-31 22:14] VITALS: BP 120/75
--- NOTE | 2020-04-01 08:47 | EKG REPORT ---
SEVERITY:- ABNORMAL ECG - SINUS TACHYCARDIA ATRIAL PREMATURE COMPLEX BORDERLINE LEFT AXIS DEVIATION BORDERLINE R WAVE PROGRESSION, ANTERIOR LEADS NONSPECIFIC T ABNORMALITIES, ANT-LAT LEADS : Confirmed by: Lukasz Payan MD 01-Apr-2020 08:46:44
== END 2020-03-31 22:27 | disposition home or self-care (01) ==
LOC: ER 19:47
DX: J44.9 Chronic obstructive pulmonary disease, unspecified (principal); I11.0 Hypertensive heart disease with heart failure; I50.9 Heart failure, unspecified; R00.0 Tachycardia, unspecified; I49.1 Atrial premature depolarization; I25.10 Atherosclerotic heart disease of native coronary artery without angina pectoris; F17.200 Nicotine dependence, unspecified, uncomplicated; Z79.899 Other long term (current) drug therapy; Z87.01 Personal history of pneumonia (recurrent); Z88.1 Allergy status to other antibiotic agents; Z88.6 Allergy status to analgesic agent; Z88.5 Allergy status to narcotic agent; Z88.0 Allergy status to penicillin; Z95.811 Presence of heart assist device
CPT/HCPCS: 36415; 71045; 80053; 82803; 83880; 85025; 93005; 93010; 94640; 99285

== ENCOUNTER → 2020-04-13 | Outpatient (CLI) | payer MEDICARE, OTHER ==
[~2020-04-13] MED LIST: CLINDAMYCIN 900 MG/D5W RTU 900 MG/50 ML RTUPB IV PRN; LACTATED RINGERS 1000 ML IV PRN
--- NOTE | 2020-04-13 11:13 | RADIOLOGY REPORT (SQ) ---
EXAM DESCRIPTION: CHEST PA/LATERAL IMAGES COMPLETED DATE/TIME: 04/13/2020 11:00 am REASON FOR STUDY: PRE OP COMPARISON: 03/31/2020 EXAM PARAMETERS: NUMBER OF VIEWS: two views TECHNIQUE: Digital Frontal and Lateral radiographic views of the chest acquired. RADIATION DOSE: NA LIMITATIONS: Low lung volumes. FINDINGS: LUNGS AND PLEURA: No opacities, masses or pneumothorax. No pleural effusion. MEDIASTINUM AND HILAR STRUCTURES: No masses or contour abnormalities. HEART AND VASCULAR STRUCTURES: Heart normal size. No evidence for failure. BONES: No acute findings. HARDWARE: None in the chest. OTHER: External cardiac defibrillator is noted. IMPRESSION: NO SIGNIFICANT RADIOGRAPHIC FINDING IN THE CHEST. TECHNICAL DOCUMENTATION: JOB ID: [id number] 2010 [employer]- All Rights Reserved Reading location - IP/workstation name: [email or web address]
[2020-04-13 12:03] LABS: HEMATOCRIT 33.1 % (37.9-51.0); HEMOGLOBIN 10.9 g/dL (13.5-17.0); MEAN CORPUSCULAR HEMOGLOBIN 26.4 pg (27.0-33.4); MEAN CORPUSCULAR HGB CONC 32.9 g/dL (32.0-36.0); MEAN CORPUSCULAR VOLUME 80 fl (80-97); PLATELET COUNT 287 10^3/uL (150-450); RED BLOOD COUNT 4.13 10^6/uL (4.35-5.55); RED CELL DISTRIBUTION WIDTH 17.8 % (11.5-14.0); WHITE BLOOD COUNT 8.4 10^3/uL (4.0-10.5)
[2020-04-13 12:26] LABS: ANION GAP 9 (5-19); BLOOD UREA NITROGEN 15 mg/dL (7-20); CALCIUM 8.1 mg/dL (8.4-10.2); CARBON DIOXIDE 27 mmol/L (22-30); CHLORIDE 98 mmol/L (98-107); GLUCOSE 128 mg/dL (75-110); POTASSIUM 3.5 mmol/L (3.6-5.0)
[2020-04-13 14:13] VITALS: BP 101/72
--- NOTE | 2020-04-13 23:04 | EKG REPORT ---
SEVERITY:- ABNORMAL ECG - SINUS TACHYCARDIA WITH IRREGULAR RATE 106-195 BORDERLINE R WAVE PROGRESSION, ANTERIOR LEADS NONSPECIFIC T ABNORMALITIES, LATERAL LEADS CONSECUTIVE APC'S : Confirmed by: Lorenza Sandoval MD 13-Apr-2020 23:03:35
== END ==
LOC: OD 09:26 → EDSTATUS 04-17 12:00
PROVIDERS: ATTEND Surgery
DX: Z03.818 Encounter for observation for suspected exposure to other biological agents ruled out (principal); Z01.818 Encounter for other preprocedural examination; K40.90 Unilateral inguinal hernia, without obstruction or gangrene, not specified as recurrent; E11.9 Type 2 diabetes mellitus without complications; I25.10 Atherosclerotic heart disease of native coronary artery without angina pectoris; R05 Cough; K74.60 Unspecified cirrhosis of liver; L03.119 Cellulitis of unspecified part of limb; R06.02 Shortness of breath; I50.33 Acute on chronic diastolic (congestive) heart failure; Z98.84 Bariatric surgery status
CPT/HCPCS: 93005; 36415; 85027; 80048; 71046; 93010; U0003; C9803; 87635

== ENCOUNTER 2020-04-17 06:40 | Inpatient (IN) | payer OTHER, MEDICARE ==
[2020-04-17 07:36] LABS: PROTHROMBIN TIME 16.4 SEC (11.4-15.4)
[2020-04-17 07:50] LABS: ALBUMIN 3.2 g/dL (3.5-5.0); ALKALINE PHOSPHATASE 136 U/L (38-126); ANION GAP 9 (5-19); ASPARTATE AMINO TRANSFERASE 22 U/L (17-59); BILIRUBIN,DIRECT 0.1 mg/dL (0.0-0.4); BILIRUBIN,TOTAL 0.8 mg/dL (0.2-1.3); BLOOD UREA NITROGEN 19 mg/dL (7-20); CALCIUM 7.9 mg/dL (8.4-10.2); CARBON DIOXIDE 27 mmol/L (22-30); CHLORIDE 94 mmol/L (98-107); CREATINE KINASE 45 U/L (55-170); GLUCOSE 107 mg/dL (75-110); POTASSIUM 3.3 mmol/L (3.6-5.0); TOTAL PROTEIN 6.6 g/dL (6.3-8.2)
--- NOTE | 2020-04-17 07:53 | ER Document Report ---
Entered by MEAGAN SABA SCRIBE 04/17/20 0707 Acting as scribe for:GHAZAL DOSHI MD ED General - General Chief Complaint: Shortness Of Breath Stated Complaint: SHORTNESS OF BREATH Time Seen by Provider: 04/17/20 06:58 Notes: This 70-year-old male patient with long history of alcoholic liver disease, coronary artery disease with congestive heart failure, hypertension COPD peripheral vascular disease and PTSD comes emergency room reporting shortness of breath since Thursday 4 to 5 days ago. On this evaluation he is found to be in atrial fibrillation with a ventricular response of 150. He has never been in A. fib before according to his previous records he also does not recall ever being told he had atrial fibrillation. He denies chest pain, only complaint of shortness of breath. He does seem to have ascites with swollen abdomen, and 2+ pitting edema to his lower extremities which he states is not any different from his baseline. Review of records and discussion with Dr. Cote shows the patient had COVID testing on 04/13/2020 in anticipation of surgery for an inguinal hernia this week. The COVID test was negative. TRAVEL OUTSIDE OF THE [place] IN LAST 30 DAYS: No - Related Data Allergies/Adverse Reactions: vancomycin Allergy (Unknown, Verified 04/17/20 07:42) azithromycin Allergy (Verified 04/17/20 07:42) hydrocodone Allergy (Verified 04/17/20 07:42) Penicillins Allergy (Verified 04/17/20 07:42) acetaminophen Adverse Reaction (Verified 04/17/20 07:42) ketorolac [From Toradol] Adverse Reaction (Verified 04/17/20 07:42) Nausea Past Medical History - General Information source: [facility] Records - Social History Smoking Status: Former Smoker Cigarette use (# per day): No Chew tobacco use (# tins/day): No Frequency of alcohol use: None Drug Abuse: None Family History: CAD, COPD, Hypertension, Malignancy Patient has homicidal ideation: No - Past Medical History Cardiac Medical History: Reports: Hx Congestive Heart Failure, Hx Coronary Artery Disease, Hx Heart Attack - 12YRS AGO WITHOUT INTERVENTION, Hx Hypertension, Hx Peripheral Vascular Disease - Chronic venous stasis Pulmonary Medical History: Reports: Hx Asthma, Hx Bronchitis, Hx COPD, Hx Pneumonia, Hx Respiratory Failure Endocrine Medical History: Reports: Hx Hypothyroidism GI Medical History: Reports: Hx Cirrhosis - Alcoholic cirrhosis, Hx Hiatal Hernia Musculoskeletal Medical History: Reports Hx Arthritis Psychiatric Medical History: Reports: Hx Post Traumatic Stress Disorder Past Surgical History: Reports: Hx Abdominal Surgery, Hx Cholecystectomy, Hx Orthopedic Surgery - Left knee surgery, left wrist surgery - Immunizations Immunizations up to date: Yes Hx Diphtheria, Pertussis, Tetanus Vaccination: Yes Hx Pneumococcal Vaccination: 09/14/16 Review of Systems - Review of Systems Constitutional: No symptoms reported EENT: No symptoms reported Cardiovascular: No symptoms reported Respiratory: See HPI, Cough, Short of breath Gastrointestinal: No symptoms reported Genitourinary: No symptoms reported Male Genitourinary: No symptoms reported Musculoskeletal: See HPI, Leg swelling - at baseline per patient Skin: No symptoms reported Hematologic/Lymphatic: No symptoms reported Neurological/Psychological: No symptoms reported -: Yes All other systems reviewed and negative Physical Exam - Vital signs Vitals: Resp Pulse Ox 25 H 100 04/17/20 06:48 04/17/20 06:48 - Notes Notes: Physical Exam: General: Alert, cachectic. HEENT: Normocephalic. Atraumatic. PERRL. Extraocular movements intact. Oropharynx clear. Neck: Supple. Non-tender. Respiratory: Dyspnea. Rhonci bilaterally. Cardiovascular: Muffled heart sounds. Abdominal: Swollen abdomen consistent with ascites. No distension. Normal Bowel Sounds. Reducible right inguinal hernia. Back: No gross abnormalities. Extremities: Moves all four extremities. Upper extremities: Normal inspection. Normal ROM. Lower extremities: 2+ pitting edema bilaterally. Neurological: Normal cognition. AAOx4. Normal speech. Psychological: Normal affect. Normal Mood. Skin: Warm. Dry. Normal color. Course - Re-evaluation Re-evalutation: 04/17/20 08:42 After laying on the stretcher on oxygen for a while, the patient's blood pressure came up to 106 systolic, and the heart rate went down to about 100, but still in A-fib. He is sleeping at this time. I did discuss case with Dr. Sandoval. He states that the patient did have SVT and atrial flutter seen on the LifeVest, but it is never been entered into the hospital record system as a problem. He also reports patient had been taught started on digoxin, is noncompliant so request that I give him a dose of 0.125 mg along with sending the blood for dig level. He will see the patient in consult. - Vital Signs Vital signs: Temp Pulse Resp BP Pulse Ox 97.3 F 106 H 24 H 106/58 L 91 L 04/17/20 11:48 04/17/20 14:00 04/17/20 11:48 04/17/20 11:48 04/17/20 11:48 - Laboratory Result Diagrams: 04/17/20 07:05 04/17/20 07:05 Laboratory results interpreted by me: 04/17/20 04/17/20 04/17/20 07:05 07:05 07:05 RBC 4.16 L Hgb 10.8 L Hct 33.3 L MCH 25.9 L RDW 17.6 H Eosinophils % (Manual) 14 H Absolute Eos (Manual) 1.1 H PT Sodium 130.0 L Potassium 3.3 L Chloride 94 L Calcium 7.9 L Alkaline Phosphatase 136 H Creatine Kinase 45 L NT-Pro-B Natriuret Pep 16811 H Albumin 3.2 L Digoxin 04/17/20 04/17/20 07:05 07:05 RBC Hgb Hct MCH RDW Eosinophils % (Manual) Absolute Eos (Manual) PT 16.4 H Sodium Potassium Chloride Calcium Alkaline Phosphatase Creatine Kinase NT-Pro-B Natriuret Pep Albumin Digoxin < 0.40 L - Diagnostic Test Radiology reviewed: Image reviewed, Reports reviewed - Chest x-ray shows enlarged heart with minimal interstitial prominence suggesting early mild edema. - EKG Interpretation by Me EKG shows normal: [place]. abnormal: Intervals - Prolonged QT interval, QRS Complexes - Borderline R wave progression in the anterior leads, ST-T Waves - Nonspecific lateral T abnormalities Rate: Tachycardia - 151 Rhythm: A.Fib When compared to previous EKG there are: Changes noted - Consults Dr. Veras Time consulted: 08:30 Consulted provider: will come to ER - Telemetry admit Discharge - Discharge Clinical Impression: Atrial fibrillation with RVR, Hypokalemia, Hyponatremia Congestive heart failure (CHF) Qualifiers: Heart failure type: unspecified Heart failure chronicity: acute on chronic Qualified Code(s): I50.9 - Heart failure, unspecified Cirrhosis of liver Qualifiers: Hepatic cirrhosis type: alcoholic cirrhosis Ascites presence: with ascites Qualified Code(s): K70.31 - Alcoholic cirrhosis of liver with ascites Dyspnea Qualifiers: Dyspnea type: shortness of breath Qualified Code(s): R06.02 - Shortness of breath Condition: Fair Disposition: ADMITTED INPATIENT Admitting Provider: Rito (Hospitalist) Unit Admitted: Telemetry I personally performed the services described in the documentation, reviewed and edited the documentation which was dictated to the scribe in my presence, and it accurately records my words and actions.
--- NOTE | 2020-04-17 07:53 | RADIOLOGY REPORT (SQ) ---
AP Portable chest: 04/17/2020 6:51 AM CDT History: 70-year old patient with atrial fibrillation. Comparison: Chest radiograph performed 04/13/2020. Findings: The cardiomediastinal silhouette is enlarged. No pneumothorax is seen. No acute airspace opacities are seen. No discrete pleural effusion is apparent. There is a life vest seen on the patient. Atherosclerotic calcifications are seen at the aortic arch. The lung volumes are low. There is minimal interstitial prominence seen. Impression: There is some minimal interstitial prominence noted which could reflect early edema. The cardiomediastinal silhouette is enlarged.
[2020-04-17 07:58] LABS: HEMATOCRIT 33.3 % (37.9-51.0); HEMOGLOBIN 10.8 g/dL (13.5-17.0); MEAN CORPUSCULAR HEMOGLOBIN 25.9 pg (27.0-33.4); MEAN CORPUSCULAR HGB CONC 32.4 g/dL (32.0-36.0); MEAN CORPUSCULAR VOLUME 80 fl (80-97); PLATELET COUNT 326 10^3/uL (150-450); RED BLOOD COUNT 4.16 10^6/uL (4.35-5.55); RED CELL DISTRIBUTION WIDTH 17.6 % (11.5-14.0); WHITE BLOOD COUNT 7.5 10^3/uL (4.0-10.5)
[2020-04-17 08:15] LABS: TROPONIN I 0.068 ng/mL
[2020-04-17 08:18] LABS: ABSOLUTE LYMPHOCYTES# (MANUAL) 1.9 10^3/uL (0.5-4.7); ABSOLUTE MONOCYTES # (MANUAL) 0.3 10^3/uL (0.1-1.4); BASOPHILS % (MANUAL) 2 % (0-2); EOSINOPHILS % (MANUAL) 14 % (0-6); LYMPHOCYTES % (MANUAL) 21 % (13-45); METAMYELOCYTES % (MANUAL) 1 % (0-1); MONOCYTES % (MANUAL) 4 % (3-13); SEGMENTED NEUTROPHILS % (MAN) 54 % (42-78); TOTAL CELLS COUNTED 100
[2020-04-17 08:20] LABS: ANISOCYTOSIS 1+; OVALOCYTES 1+; PLATELET COMMENT ADEQUATE; POIKILOCYTOSIS 1+; POLYCHROMASIA SLIGHT; SCHISTOCYTES SLIGHT
[2020-04-17] MEDS ORDERED: DIGOXIN INJ 0.5 MG/2 ML AMPULE IV ONE ×3 (08:40→16:30)
--- NOTE | 2020-04-17 09:19 | EKG REPORT ---
SEVERITY:- ABNORMAL ECG - SINUS RHYTHM WITH SHORT RUNS OF PAT. BORDERLINE R WAVE PROGRESSION, ANTERIOR LEADS NONSPECIFIC T ABNORMALITIES, LATERAL LEADS : Confirmed by: Edu Baker MD 17-Apr-2020 09:19:08
[2020-04-17] MEDS ORDERED: ACETAMINOPHEN 325 MG TABLET PO PRN (09:54)
[2020-04-17] MEDS ORDERED: ONDANSETRON 4 MG TAB.RAPDIS PO PRN (09:54)
[2020-04-17] MEDS ORDERED: ONDANSETRON HCL INJ/PF 4 MG/2 ML SDV IV PRN (09:54)
[2020-04-17] MEDS: DOCUSATE SODIUM 100 MG CAPSULE PO SCH (10:11)
[2020-04-17] MEDS: ENOXAPARIN SODIUM INJ 40 MG/0.4 ML DISP.SYRIN SUBCUT SCH (10:11)
[2020-04-17] MEDS: LACTULOSE SYRUP 20 GM/30 ML UDCUP PO SCH ×2 (10:11→21:32)
[2020-04-17] MEDS ORDERED: POTASSIUM CHLORIDE 10 MEQ TABLET.ER PO ONE (11:58)
[2020-04-17] MEDS ORDERED: HYDROMORPHONE HCL 2 MG TABLET PO ONE (12:15)
[2020-04-17] MEDS: MIDODRINE HCL 5 MG TABLET PO SCH ×2 (16:38→17:26)
[2020-04-17 17:47] LABS: APPEARANCE,URINE CLEAR; BILIRUBIN,URINE NEGATIVE (NEGATIVE); COLOR,URINE AMBER; GLUCOSE, URINE NEGATIVE (NEGATIVE); KETONES,URINE NEGATIVE (NEGATIVE); LEUKOCYTE ESTERASE,URINE NEGATIVE (NEGATIVE); NITRITE,URINE NEGATIVE (NEGATIVE); PROTEIN,URINE NEGATIVE (NEGATIVE); URINE SPECIFIC GRAVITY 1.018
--- NOTE | 2020-04-17 18:19 | PDOC H&P ---
History of Present Illness Admission Date/PCP: 04/17/20 08:55 [facility] History of Present Illness: DURAN TELLES is a 70 year old male past medical history significant for CHF followed by Dr. Sandoval, recurrent PAT, history of CT without stents or bypass, history of gastric bypass who presents the ED after 4-day history of progressive shortness of breath/ascites/bilateral lower extremity edema which he states is consistent with previous CHF exacerbations. Chest x-ray did not show any acute abnormalities other than some possible early edema. BNP significantly elevated up to 43,000 and prior was 3000. Relative hypotension noted. Patient in paroxysmal atrial tachycardia with heart rate in the 150s. Cardiology consulted and started patient on digoxin. He denies any recent acute illness or any exposure to people exhibiting signs or symptoms of COVID. He also has a h istory of alcoholic liver disease, COPD and peripheral vascular disease. He is currently wearing a LifeVest and states he has not been shocked recently. Case discussed with cardiology and they will see him in consult. Past Medical History Cardiac Medical History: Reports: Congestive Heart Failure, Coronary Artery Disease, Myocardial Infarction - 12YRS AGO WITHOUT INTERVENTION, Hypertension, Peripheral Vascular Disease - Chronic venous stasis Denies: Atrial Fibrillation, DVT, Hyperlipidema, Pulmonary Embolism Pulmonary Medical History: Reports: Asthma, Bronchitis, Chronic Obstructive Pulmonary Disease (COPD), Pneumonia, Respiratory Failure Neurological Medical History: Denies: Seizures Endocrine Medical History: Reports: Hypothyroidism Denies: Diabetes Mellitus Type 1, Diabetes Mellitus Type 2, Hyperthyroidism GI Medical History: Reports: Cirrhosis - Alcoholic cirrhosis, Hiatal Hernia Denies: Crohn's Disease, Hepatitis, Ulcerative Colitis Musculoskeltal Medical History: Reports: Arthritis Denies: Gout Skin Medical History: Denies: Eczema, Psoriasis Psychiatric Medical History: Reports: Post Traumatic Stress Disorder Denies: Depression Hematology: Reports: Anemia - Chronic Denies: Bleeding Tendencies Past Surgical History Past Surgical History: Reports: Cholecystectomy, Orthopedic Surgery - Left knee surgery, left wrist surgery, Other - Gallbladder Social History Smoking Status: Former Smoker Electronic Cigarette use?: No Frequency of Alcohol Use: None Hx Recreational Drug Use: No Drugs: None Hx Prescription Drug Abuse: No - Advance Directive Resuscitation Status: Full Code Surrogate healthcare decision maker:: Daughter, Reina Family History Family History: CAD, COPD, Hypertension, Malignancy Parental Family History Reviewed: Yes Children Family History Reviewed: Yes Sibling(s) Family History Reviewed.: Yes Medication/Allergy Home Medications: Folic Acid [Folvite 1 mg Tablet] 1 mg PO DAILY 10/16/19 Gabapentin [Neurontin 300 mg Capsule] 1,200 mg PO Q8 10/16/19 Ketoconazole 1 applic TOP TIDP PRN 10/16/19 Cyanocobalamin (Vitamin B-12) [Vitamin B-12 Inj 1000 Mcg/1 ml Vial] 1 ml IM .M ONTHLY 12/01/19 Budesonide/Formoterol Fumarate [Symbicort HFA 160-4.5 mcg Inhaler 6 gm] 2 puff IH Q12 #1 inhaler 03/30/20 Furosemide [Lasix 40 mg Tablet] 40 mg PO DAILY #30 tablet 03/30/20 Metoprolol Succinate [Toprol Xl 25 mg Tab.sr] 25 mg PO DAILY #30 tab.sr.24h 03/30/20 Tramadol HCl [Ultram 50 mg Tablet] 50 mg PO Q6HP PRN #20 tablet 03/30/20 Aspirin [Aspir-Low] 81 mg PO DAILY 04/13/20 Simvastatin 80 mg PO QHS 04/13/20 Allergies/Adverse Reactions: vancomycin Allergy (Unknown, Verified 04/17/20 07:42) azithromycin Allergy (Verified 04/17/20 07:42) hydrocodone Allergy (Verified 04/17/20 07:42) Penicillins Allergy (Verified 04/17/20 07:42) acetaminophen Adverse Reaction (Verified 04/17/20 07:42) ketorolac [From Toradol] Adverse Reaction (Verified 04/17/20 07:42) Nausea Review of Systems All systems: reviewed and no additional remarkable complaints except as stated - As per HPI, otherwise negative Physical Exam Vital Signs: Temp Pulse Resp BP Pulse Ox 97.3 F 46 L 24 H 118/72 99 04/17/20 15:38 04/17/20 15:38 04/17/20 15:38 04/17/20 15:38 04/17/20 15:38 Intake & Output 04/16/20 04/17/20 04/18/20 06:59 06:59 06:59 Intake Total 570 Output Total 700 Balance -130 Weight 74.843 kg 72 kg General appearance: PRESENT: no acute distress, well-developed, well-nourished Head exam: PRESENT: atraumatic, normocephalic Eye exam: PRESENT: conjunctiva pink Mouth exam: PRESENT: moist Respiratory exam: PRESENT: rales - Very mild/minimal. ABSENT: rhonchi, wheezes Cardiovascular exam: PRESENT: tachycardia. ABSENT: diastolic murmur, rubs, sys tolic murmur GI/Abdominal exam: PRESENT: ascites, distended - Mild distention with reducible umbilical hernia noted, normal bowel sounds, soft. ABSENT: guarding, mass, organolmegaly, rebound, tenderness Neurological exam: PRESENT: alert, awake, oriented to person, oriented to place, oriented to time, oriented to situation Psychiatric exam: PRESENT: appropriate affect, normal mood Skin exam: PRESENT: dry, intact, warm Results Laboratory Results: 04/17/20 07:05 04/17/20 07:05 04/17/20 04/17/20 04/17/20 07:05 07:05 17:28 WBC 7.5 RBC 4.16 L Hgb 10.8 L Hct 33.3 L MCV 80 MCH 25.9 L MCHC 32.4 RDW 17.6 H Plt Count 326 Seg Neutrophils % Not Reportable Sodium 130.0 L Potassium 3.3 L Chloride 94 L Carbon Dioxide 27 Anion Gap 9 BUN 19 Creatinine 1.12 Est GFR ( Amer) > 60 Glucose 107 Calcium 7.9 L Magnesium 1.6 Total Bilirubin 0.8 AST 22 Alkaline Phosphatase 136 H Total Protein 6.6 Albumin 3.2 L Urine Color DARLEEN Urine Appearance CLEAR Urine pH 5.0 Ur Specific [place] 1.018 Urine Protein NEGATIVE Urine Glucose (UA) NEGATIVE Urine Ketones NEGATIVE Urine Blood NEGATIVE Urine Nitrite NEGATIVE Ur Leukocyte Esterase NEGATIVE Urine WBC (Auto) 1 Urine RBC (Auto) 0 04/17/20 04/17/20 07:05 07:05 Creatine Kinase 45 L Troponin I 0.068 NT-Pro-B Natriuret Pep 89912 H Assessment and Plan - Diagnosis (1) CHF exacerbation Qualifiers: Is this a current diagnosis for this admission?: Yes Plan: Likely due to A. fib/atrial tachycardia Diuretics BNP elevated up to 43,000, prior was 3000 Relative hypotension on admission Chest x-ray showed possible interstitial edema Heart rate up in the 150s on admission Cardiology consulted and discussed with Dr. Sandoval (2) Atrial fibrillation with RVR Is this a current diagnosis for this admission?: Yes Plan: Per cardiology, looks more like PAT rather than A. fib or a flutter Not on any anticoagulation prior to admission Rate control with medications as outlined by cardiology, started on digoxin Maintain strict electrolyte control EKG showed no acute ST changes (3) Cirrhosis Qualifiers: Hepatic cirrhosis type: alcoholic cirrhosis Ascites presence: with ascites Qualified Code(s): K70.31 - Alcoholic cirrhosis of liver with ascites Is this a current diagnosis for this admission?: Yes Plan: Chronic Ascites noted (4) Acute and chronic respiratory failure Qualifiers: Is this a current diagnosis for this admission?: Yes Plan: Due to CHF Oxygen as needed to maintain saturation 89 to 92% (5) COPD (chronic obstructive pulmonary disease) Qualifiers: Is this a current diagnosis for this admission?: Yes Plan: Not in exacerbation Nebs as needed (6) CHF (congestive heart failure) Qualifiers: Heart failure type: unspecified Heart failure chronicity: acute on chronic Qualified Code(s): I50.9 - Heart failure, unspecified Is this a current diagnosis for this admission?: Yes - Time Time Spent with patient: 35 or more minutes Medications reviewed and adjusted accordingly: Yes Anticipated Discharge Disposition: Home, Self Care Anticipated Discharge Timeframe: within 72 hours - Inpatient Certification Based on my medical assessment, after consideration of the patient's comorbidities, presenting symptoms, or acuity I expect that the services needed warrant INPATIENT care.: Yes I certify that my determination is in accordance with my understanding of Medicare's requirements for reasonable and necessary INPATIENT services [42 CFR 412.3e].: Yes Medical Necessity: Significant Comorbidiites Make Outpatient Treatment Too Risky, Need Close Monitoring Due to Risk of Patient Decompensation, Risk of Complication if Not Cared For in Hospital, Risk of Diagnosis Which Will Require Inpatient Eval/Care/Monitoring
--- NOTE | 2020-04-17 21:23 | PDOC CONSULTATION ---
Consultation-Blank Consultation: CARDIOLOGY CONSULTATION by Dr. Lorenza Sandoval on 04/17/2020 patient seen at 12 noon. 60 minutes spent as patient more than 50% time spent in direct patient care. REASON for consultation is patient with SVT and acute on chronic systolic heart failure and acute exacerbation of COPD. CONSULT REQUESTING PHYSICIAN: Dr. Veras, [facility] HISTORY OF PRESENT ILLNESS: Patient is a 72-year-old male with severe cardiomyopathy with severely reduced LV ejection fraction, coronary artery disease with history of old myocardial infarction, history of SVT by 30-day event monitor in the past treated on digoxin, with suboptimal dig levels, and severe COPD, and noncompliance with diet medications and smoking admitted with palpitations and shortness of breath. Patient found to be in SVT which has resolved with digoxin. The patient also has been having acute on chronic systolic heart failure with PND orthopnea and leg edema. The patient has a LifeVest which has not fired. He denies any fever chills or rigors. He has cough productive of greenish-yellow sputum. As usual the patient has been noncompliant with medications, diet and continues to smoke. This is several of his multiple admissions Past Medical History Cardiac Medical History: Reports: Congestive Heart Failure, Coronary Artery Disease, Myocardial Infarction - 12YRS AGO WITHOUT INTERVENTION, Hypertension, Peripheral Vascular Disease - Chronic venous stasis Denies: Atrial Fibrillation, DVT, Hyperlipidema, Pulmonary Embolism Pulmonary Medical History: Reports: Asthma, Bronchitis, Chronic Obstructive Pulmonary Disease (COPD), Pneumonia, Respiratory Failure Neurological Medical History: Denies: Seizures Endocrine Medical History: Reports: Hypothyroidism Denies: Diabetes Mellitus Type 1, Diabetes Mellitus Type 2, Hyperthyroidism GI Medical History: Reports: Cirrhosis - Alcoholic cirrhosis, Hiatal Hernia Denies: Crohn's Disease, Hepatitis, Ulcerative Colitis Musculoskeltal Medical History: Reports: Arthritis Denies: Gout Skin Medical History: Denies: Eczema, Psoriasis Psychiatric Medical History: Reports: Post Traumatic Stress Disorder Denies: Depression Hematology: Reports: Anemia - Chronic Denies: Bleeding Tendencies Past Surgical History Past Surgical History: Reports: Cholecystectomy, Orthopedic Surgery - Left knee surgery, left wrist surgery, Other - Gallbladder Social History Smoking Status: Former Smoker Electronic Cigarette use?: No Frequency of Alcohol Use: None Hx Recreational Drug Use: No Drugs: None Hx Prescription Drug Abuse: No - Advance Directive Resuscitation Status: Full Code Surrogate healthcare decision maker:: DaughterReina Family History Family History: CAD, COPD, Hypertension, Malignancy Parental Family History Reviewed: Yes Children Family History Reviewed: Yes Sibling(s) Family History Reviewed.: Yes Medication/Allergy Home Medications: Folic Acid [Folvite 1 mg Tablet] 1 mg PO DAILY 10/16/19 Gabapentin [Neurontin 300 mg Capsule] 1,200 mg PO Q8 10/16/19 Ketoconazole 1 applic TOP TIDP PRN 10/16/19 Cyanocobalamin (Vitamin B-12) [Vitamin B-12 Inj 1000 Mcg/1 ml Vial] 1 ml IM .MONTHLY 12/01/19 Budesonide/Formoterol Fumarate [Symbicort HFA 160-4.5 mcg Inhaler 6 gm] 2 puff IH Q12 #1 inhaler 03/30/20 Furosemide [Lasix 40 mg Tablet] 40 mg PO DAILY #30 tablet 03/30/20 Metoprolol Succinate [Toprol Xl 25 mg Tab.sr] 25 mg PO DAILY #30 tab.sr.24h 03/30/20 Tramadol HCl [Ultram 50 mg Tablet] 50 mg PO Q6HP PRN #20 tablet 03/30/20 Aspirin [Aspir-Low] 81 mg PO DAILY 04/13/20 Simvastatin 80 mg PO QHS 04/13/20 Allergies/Adverse Reactions: vancomycin Allergy (Unknown, Verified 04/17/20 07:42) azithromycin Allergy (Verified 04/17/20 07:42) hydrocodone Allergy (Verified 04/17/20 07:42) Penicillins Allergy (Verified 04/17/20 07:42) acetaminophen Adverse Reaction (Verified 04/17/20 07:42) ketorolac [From Toradol] Adverse Reaction (Verified 04/17/20 07:42) Nausea Review of Systems All systems: reviewed and no additional remarkable complaints except as stated - As per HPI, otherwise negative also patient uncooperative and will not cooperate in answering questions. He keeps saying "leave me alone" " CURRENT MEDICATIONS as per MAR. PHYSICAL EXAMINATION: The patient's well-nourished and appears to be chronically ill. Selected Entries 04/17/20 11:48 Temperature 97.3 F Temperature Oral Source Pulse Rate 91 Pulse Rate [ 102 H Right Finger] Respiratory 24 H Rate Blood Pressure 106/58 L [Right Upper Arm] Blood Pressure 74 Mean [Right Upper Arm] Blood Pressure Supine Position [Right Upper Arm] O2 Sat by Pulse 91 L Oximetry Oxygen Delivery Nasal Cannula Method ( includes room air) Oxygen Flow 5 Rate HEAD: Is atraumatic normocephalic. EYES: Pupils are equal round regular reactive to light accommodation. Extraocular movements are normal. There is no conjunctival pallor. There is no scleral icterus. EARS: Tympanic membranes are intact. External auditory canals are clear. NOSE: There is no deviated nasal septum. There is no inflammation nasal mucous membrane. MOUTH: Mucous me mbranes of the mouth are moist. Tongue is moist there is no ulcers. There is no bleeding from the gums THROAT: There is no redness of the oropharynx. There is no exudates. SKIN: There is no skin rashes. There is no skin lesions. There is no petechia or ecchymosis. NECK: Is supple there is JVD present. Carotids are equal there is no bruits. There is no lymphadenopathy. There is no goiter. There is no accessory muscle respiration use. Trachea central. LUNGS: There is diminished air entry prolonged expiration. Scattered rhonchi and mild end expiratory wheezing. There is no rales of CHF. On percussion there is hyperresonance. HEART: S1-S2 is heard. There is no S3 gallop. There is no S4 gallop. Systolic murmur left sternal border and the apex there is no rub. ABDOMEN: Soft. There is no definite hepatosplenomegaly. There is questionable ascites present. There is a reducible right inguinal hernia present there is no tender areas masses. EXTREMITIES: Femorals are diminished. There is no femoral bruits. Leg pulses are diminished. There is mild pedal edema bilaterally. There is no DVT or cellulitis. There is no calf tenderness. There is no cyanosis or clubbing. RESOLUTION SPECIALIST: The patient is conscious awake alert oriented x3 with no focal deficits. PSYCHIATRIC the patient judgment insight are intact her affect is normal. EKG:* SINUS RHYTHM WITH SHORT RUNS OF PAT. [AMI1] . BORDERLINE R WAVE PROGRESSION, ANTERIOR LEADS [T1LA] . NONSPECIFIC T ABNORMALITIES, LATERAL LEADS. Labs- Entire Visit 04/17/20 04/17/20 04/17/20 07:05 07:05 07:05 WBC 7.5 RBC 4.16 L Hgb 10.8 L Hct 33.3 L MCV 80 MCH 25.9 L MCHC 32.4 RDW 17.6 H Plt Count 326 Lymph % (Auto) Not Reportable Pope % (Auto) Not Reportable Eos % (Auto) Not Reportable Baso % (Auto) Not Reportable Absolute Neuts (auto) Not Reportable Absolute Lymphs (auto) Not Reportable Absolute Monos (auto) Not Reportable Absolute Eos (auto) Not Reportable Absolute Basos (auto) Not Reportable Total Counted 100 Seg Neutrophils % Not Reportable Seg Neuts % (Manual) 54 Lymphocytes % (Manual) 21 Atypical Lymphs % 4 Monocytes % (Manual) 4 Eosinophils % (Manual) 14 H Basophils % (Manual) 2 Metamyelocytes % 1 Abs Neuts (Manual) 4.1 Abs Lymphs (Manual) 1.9 Abs Monocytes (Manual) 0.3 Absolute Eos (Manual) 1.1 H Abs Basophils (Manual) 0.2 Platelet Comment ADEQUATE Polychromasia SLIGHT Poikilocytosis 1+ Anisocytosis 1+ Microcytosis SLIGHT Ovalocytes 1+ Acanthocytes (Spur) SLIGHT Schistocytes SLIGHT PT INR Carbonic Acid HCO3/H2CO3 Ratio ABG pH ABG pCO2 ABG pO2 ABG HCO3 ABG Total CO2 ABG O2 Saturation ABG Base Excess FiO2 Sodium 130.0 L Potassium 3.3 L Chloride 94 L Carbon Dioxide 27 Anion Gap 9 BUN 19 Creatinine 1.12 Est GFR ( Amer) > 60 Est GFR (Non-Af Amer) Est GFR (MDRD) Non-Af > 60 Glucose 107 POC Glucose Calcium 7.9 L Phosphorus Magnesium 1.6 Total Bilirubin 0.8 Direct Bilirubin 0.1 Neonat Total Bilirubin Not Reportable Neonat Direct Bilirubin Not Reportable Neonat Indirect Bili Not Reportable AST 22 ALT 9 Alkaline Phosphatase 136 H Ammonia Creatine Kinase 45 L Troponin I 0.068 NT-Pro-B Natriuret Pep 07706 H Total Protein 6.6 Albumin 3.2 L EGFR Urine Color Urine Appearance Urine pH Ur Specific [place] Urine Protein Urine Glucose (UA) Urine Ketones Urine Blood Urine Nitrite Urine Bilirubin Urine Urobilinogen Ur Leukocyte Esterase Urine WBC (Auto) Urine RBC (Auto) U Hyaline Cast (Auto) Squamous Epi Cells Auto Urine Mucus (Auto) Urine Ascorbic Acid Digoxin SARS-CoV-2 (PCR) 04/17/20 04/17/20 04/17/20 07:05 07:05 17:28 WBC RBC Hgb Hct MCV MCH MCHC RDW Plt Count Lymph % (Auto) Pope % (Auto) Eos % (Auto) Baso % (Auto) Absolute Neuts (auto) Absolute Lymphs (auto) Absolute Monos (auto) Absolute Eos (auto) Absolute Basos (auto) Total Counted Seg Neutrophils % Seg Neuts % (Manual) Lymphocytes % (Manual) Atypical Lymphs % Monocytes % (Manual) Eosinophils % (Manual) Basophils % (Manual) Metamyelocytes % Abs Neuts (Manual) Abs Lymphs (Manual) Abs Monocytes (Manual) Absolute Eos (Manual) Abs Basophils (Manual) Platelet Comment Polychromasia Poikilocytosis Anisocytosis Microcytosis Ovalocytes Acanthocytes (Spur) Schistocytes PT 16.4 H INR 1.30 Carbonic Acid HCO3/H2CO3 Ratio ABG pH ABG pCO2 ABG pO2 ABG HCO3 ABG Total CO2 ABG O2 Saturation ABG Base Excess FiO2 Sodium Potassium Chloride Carbon Dioxide Anion Gap BUN Creatinine Est GFR ( Amer) Est GFR (Non-Af Amer) Est GFR (MDRD) Non-Af Glucose POC Glucose Calcium Phosphorus Magnesium Total Bilirubin Direct Bilirubin Neonat Total Bilirubin Neonat Direct Bilirubin Neonat Indirect Bili AST ALT Alkaline Phosphatase Ammonia Creatine Kinase Troponin I NT-Pro-B Natriuret Pep Total Protein Albumin EGFR Urine Color DARLEEN Urine Appearance CLEAR Urine pH 5.0 Ur Specific [place] 1.018 Urine Protein NEGATIVE Urine Glucose (UA) NEGATIVE Urine Ketones NEGATIVE Urine Blood NEGATIVE Urine Nitrite NEGATIVE Urine Bilirubin NEGATIVE Urine Urobilinogen 4.0 H Ur Leukocyte Esterase NEGATIVE Urine WBC (Auto) 1 Urine RBC (Auto) 0 U Hyaline Cast (Auto) 1 Squamous Epi Cells Auto <1 Urine Mucus (Auto) RARE Urine Ascorbic Acid NEGATIVE Digoxin < 0.40 L SARS-CoV-2 (PCR) IMPRESSION/RECOMMENDATION 1. SVT 2. Acute on chronic systolic heart failure: Although the chest x-ray does not show CHF patient is JVD is elevated consistent with chronic heart failure with acute exacerbation. We will stop the patient's IV Lasix and change to IV Bumex. 3. COPD with exacerbation: Continue bronchodilators and consider steroids and antibiotics. 4. Coronary artery disease: No anginal symptoms. History of prior AL 5. Dilated cardiomyopathy with severely reduced LV ejection fraction. Continue lisinopril and beta-sarina. Later would be recommended for referral for AICD placement. This will be done once the patient's cardiac and pulmonary status stabilizes. 6. Alcoholic cirrhosis by history: Patient counseled to avoid alcohol 7. History of hypertension: At present blood pressure low 8. History of tobacco abuse disorder: Patient counseled to refrain from smoking. 9. Right inguinal hernia: At present no evidence of obstruction or incarceration. 10. Chronic pain syndrome: Patient on gabapentin. 11. Hyperlipidemia: Continue statins. Medications reviewed. Medications adjusted. Medical regimen and management plan discussed with attending provider on the case. Medical decision making is of high complexity. 60 minutes spent on the patient with more than 50% time spent in direct patient care. Will follow
[2020-04-17 21:50] LABS: ANION GAP 5 (5-19); BLOOD UREA NITROGEN 19 mg/dL (7-20); CALCIUM 7.3 mg/dL (8.4-10.2); CARBON DIOXIDE 26 mmol/L (22-30); CHLORIDE 100 mmol/L (98-107); GLUCOSE 103 mg/dL (75-110)
[2020-04-17] MEDS: MORPHINE SULFATE 10 MG/ML INJ IV PRN (22:52)
[2020-04-18] MEDS: IPRATROPIUM/ALBUTEROL 0.5-2.5 MG/3 ML AMPUL NEB PRN ×2 (01:48→10:21)
[2020-04-18] MEDS: MORPHINE SULFATE 10 MG/ML INJ IV PRN (04:39)
[2020-04-18 06:17] LABS: ABSOLUTE BASOPHILS # (AUTO) 0.2 10^3/uL (0.0-0.2); ABSOLUTE EOSINOPHILS # (AUTO) 1.3 10^3/uL (0.0-0.6); ABSOLUTE LYMPHOCYTES (AUTO) 1.7 10^3/uL (0.5-4.7); ABSOLUTE MONOCYTES (AUTO) 0.9 10^3/uL (0.1-1.4); ABSOLUTE NEUT (AUTO) 4.5 10^3/uL (1.7-8.2); BASOPHILS % (AUTO) 2.4 % (0-2); EOSINOPHILS % (AUTO) 14.9 % (0-6); HEMATOCRIT 35.7 % (37.9-51.0); HEMOGLOBIN 11.6 g/dL (13.5-17.0); LYMPHOCYTES % (AUTO) 19.7 % (13-45); MEAN CORPUSCULAR HGB CONC 32.6 g/dL (32.0-36.0); MEAN CORPUSCULAR VOLUME 80 fl (80-97); MONOCYTES % (AUTO) 10.4 % (3-13); PLATELET COUNT 271 10^3/uL (150-450); RED BLOOD COUNT 4.47 10^6/uL (4.35-5.55); RED CELL DISTRIBUTION WIDTH 17.3 % (11.5-14.0); SEGMENTED NEUTROPHILS % (AUTO) 52.6 % (42-78); TOTAL CELLS COUNTED % (AUTO) 100 %; WHITE BLOOD COUNT 8.6 10^3/uL (4.0-10.5)
[2020-04-18 06:33] LABS: ANION GAP 5 (5-19); BLOOD UREA NITROGEN 20 mg/dL (7-20); CALCIUM 7.6 mg/dL (8.4-10.2); CARBON DIOXIDE 29 mmol/L (22-30); CHLORIDE 98 mmol/L (98-107); GLUCOSE 114 mg/dL (75-110); POTASSIUM 4.1 mmol/L (3.6-5.0)
[2020-04-18 06:39] LABS: PHOSPHORUS 4.1 mg/dL (2.5-4.5)
[2020-04-18] MEDS: MIDODRINE HCL 5 MG TABLET PO SCH ×3 (10:05→21:10)
[2020-04-18] MEDS: ENOXAPARIN SODIUM INJ 40 MG/0.4 ML DISP.SYRIN SUBCUT SCH (10:05)
[2020-04-18] MEDS: DOCUSATE SODIUM 100 MG CAPSULE PO SCH (10:13)
[2020-04-18] MEDS ORDERED: FUROSEMIDE INJ/PF 40 MG/4 ML SDV IV ONE (11:26)
[2020-04-18] MEDS ORDERED: METOPROLOL SUCCINATE 25 MG TAB.SR.24H PO SCH (12:30)
--- NOTE | 2020-04-18 12:39 | PDOC PROGRESS REPORT ---
Subjective Progress Note for:: 04/18/20 Subjective:: Patient complains of shortness of breath Reason For Visit: ATRIL FIBRILLATION WITH RVR, ACUTE SYSTOLIC CHF Physical Exam Vital Signs: Temp Pulse Resp BP Pulse Ox 97.5 F 120 H 22 H 120/75 98 04/18/20 07:48 04/18/20 10:23 04/18/20 10:23 04/18/20 07:48 04/18/20 10:23 Intake & Output 04/17/20 04/18/20 04/19/20 06:59 06:59 06:59 Intake Total 1290 330 Output Total 1100 300 Balance 190 30 Weight 74.843 kg 80.1 kg General appearance: PRESENT: cooperative, disheveled, mild distress Head exam: PRESENT: atraumatic, normocephalic Eye exam: PRESENT: conjunctiva pink Mouth exam: PRESENT: moist, tongue midline Neck exam: PRESENT: JVD Respiratory exam: PRESENT: crackles - Scattered throughout, decreased breath sounds - Air entry diminished at bases bilaterally, rhonchi, symmetrical Cardiovascular exam: PRESENT: RRR, +S1, +S2 Pulses: PRESENT: normal carotid pulses, normal radial pulses GI/Abdominal exam: PRESENT: ascites, diminished bowel sounds, distended, hypoactive bowel sounds, other - Abdomen full, round, and tight Rectal exam: PRESENT: deferred Extremities exam: PRESENT: +2 edema, other - 2 to 3 mm pretibial edema bilaterally. ABSENT: calf tenderness Neurological exam: PRESENT: alert, awake, oriented to person, oriented to place, oriented to time, oriented to situation Psychiatric exam: PRESENT: unusual affect. ABSENT: agitated, anxious Skin exam: PRESENT: dry, normal color, warm Results Laboratory Results: 04/18/20 05:59 04/18/20 05:59 04/17/20 04/17/20 04/18/20 17:28 21:14 05:59 WBC 8.6 RBC 4.47 Hgb 11.6 L Hct 35.7 L MCV 80 MCH 26.0 L MCHC 32.6 RDW 17.3 H Plt Count 271 Seg Neutrophils % 52.6 Sodium 130.9 L Potassium 4.0 Chloride 100 Carbon Dioxide 26 Anion Gap 5 BUN 19 Creatinine 0.90 Est GFR ( Amer) > 60 Glucose 103 Calcium 7.3 L Phosphorus Magnesium Urine Color DARLEEN Urine Appearance CLEAR Urine pH 5.0 Ur Specific [place] 1.018 Urine Protein NEGATIVE Urine Glucose (UA) NEGATIVE Urine Ketones NEGATIVE Urine Blood NEGATIVE Urine Nitrite NEGATIVE Ur Leukocyte Esterase NEGATIVE Urine WBC (Auto) 1 Urine RBC (Auto) 0 04/18/20 04/18/20 05:59 05:59 WBC RBC Hgb Hct MCV MCH MCHC RDW Plt Count Seg Neutrophils % Sodium 132.3 L Potassium 4.1 Chloride 98 Carbon Dioxide 29 Anion Gap 5 BUN 20 Creatinine 0.98 Est GFR ( Amer) > 60 Glucose 114 H Calcium 7.6 L Phosphorus 4.1 Magnesium 1.5 L Urine Color Urine Appearance Urine pH Ur Specific [place] Urine Protein Urine Glucose (UA) Urine Ketones Urine Blood Urine Nitrite Ur Leukocyte Esterase Urine WBC (Auto) Urine RBC (Auto) 04/17/20 04/17/20 07:05 07:05 Creatine Kinase 45 L Troponin I 0.068 NT-Pro-B Natriuret Pep 43507 H Assessment and Plan - Diagnosis (1) CHF (congestive heart failure) Qualifiers: Heart failure type: unspecified Heart failure chronicity: acute on chronic Qualified Code(s): I50.9 - Heart failure, unspecified Is this a current diagnosis for this admission?: Yes Plan: Give furosemide 40 mg IV x1 today Starting tomorrow resume furosemide 40 mg p.o. daily Daily weights Strict I/O (2) Atrial fibrillation with RVR Is this a current diagnosis for this admission?: Yes Plan: Patient converted to sinus rhythm after receiving several doses of IV digoxin Patient was on metoprolol succinate 25 mg p.o. daily [employer] but placed on midodrine 5 mg p.o. 3 times daily per cardiology, will hold beta-sarina at this time Continue to monitor Further medication per cardiology (3) Dyslipidemia Is this a current diagnosis for this admission?: Yes Plan: Restart patient's home statin (simvastatin 80 mg p.o. daily at bedtime) (4) Cirrhosis Qualifiers: Hepatic cirrhosis type: alcoholic cirrhosis Ascites presence: with ascites Qualified Code(s): K70.31 - Alcoholic cirrhosis of liver with ascites Is this a current diagnosis for this admission?: Yes Plan: Patient's abdomen is extremely full/round and seems to be impeding his diaphragmatic excursion Request ultrasound-guided paracentesis Continue lactulose 10 g p.o. every 12 hours (5) Acute and chronic respiratory failure Qualifiers: Is this a current diagnosis for this admission?: Yes Plan: Multifactorial including CHF/ascites/COPD Restart budesonide/formoterol 2 puffs every 12 hours Supplemental O2 PRN Additional management as noted above (6) COPD (chronic obstructive pulmonary disease) Qualifiers: Is this a current diagnosis for this admission?: Yes Plan: No acute exacerbation Meds as noted above Bronchodilator nebs as needed (7) Hyponatremia Is this a current diagnosis for this admission?: Yes Plan: Likely related to volume Diurese as noted above Monitor (8) Anemia Is this a current diagnosis for this admission?: Yes Plan: Anemia is minor No treatment indicated at this time Monitor - Time Time Spent with patient: 25-34 minutes Medications reviewed and adjusted accordingly: Yes Anticipated Discharge Disposition: Home, Self Care Anticipated Discharge Timeframe: within 72 hours
[2020-04-18] MEDS: GABAPENTIN 300 MG CAPSULE PO SCH ×2 (14:34→21:10)
[2020-04-18] MEDS: LACTULOSE SYRUP 20 GM/30 ML UDCUP PO SCH ×2 (14:35→21:11)
--- NOTE | 2020-04-18 18:28 | EKG REPORT ---
SEVERITY:- ABNORMAL ECG - SINUS TACHYCARDIA MULTIPLE ATRIAL PREMATURE COMPLEXES LOW VOLTAGE IN FRONTAL LEADS NONSPECIFIC T ABNORMALITIES, LATERAL LEADS : Confirmed by: Edu Baker MD 18-Apr-2020 18:28:03
[2020-04-18] MEDS: SIMVASTATIN 40 MG TABLET PO SCH (21:10)
[2020-04-18] MEDS ORDERED: SIMVASTATIN 80 MG PO SCH (22:00)
--- NOTE | 2020-04-18 22:33 | Progress Note ---
Provider Note Provider Note: CARDIOLOGY PROGRESS NOTE by Dr. Lorenza Sandoval on 04/19/2020 SUBJECTIVE: The patient continues to be short of breath. He has orthopnea but no PND. He denies any chest pain or discomfort. He continues to have cough and is also wheezing. He is bringing up or coughing up yellowish sputum. He does have leg edema. There is no firing of his LifeVest. There is no TIA CVA symptoms. PHYSICAL EXAMINATION: The patient appears to be chronically ill and malnourished and a frail build. Selected Entries 04/18/20 07:48 Temperature 97.5 F Temperature Oral Source Pulse Rate 115 H Respiratory 22 H Rate Blood Pressure 120/75 Blood Pressure 90 Mean BP Location Right Arm BP Position Supine O2 Sat by Pulse 100 Oximetry Oxygen Flow 3.50 Rate Oxygen Delivery Nasal Cannula Method HEAD: Is atraumatic normocephalic. EYES: Pupils are equal round regular reactive to light accommodation. Extraocular movements are normal. There is no conjunctival pallor. There is no scleral icterus. EARS: Tympanic membranes are intact. External auditory canals are clear. NOSE: There is no deviated nasal septum. There is no inflammation nasal mucous membrane. MOUTH: Mucous membranes of the mouth are moist. Tongue is moist there is no ulcers. There is no bleeding from the gums THROAT: There is no redness of the oropharynx. There is no exudates. SKIN: There is no skin rashes. There is no skin lesions. There is no petechia or ecchymosis. NECK: Is supple there is mild JVD present. Carotids are equal there is no bruits. There is no lymphadenopathy. There is no goiter. There is no accessory muscle respiration use. Trachea central. LUNGS: There is diminished air entry prolonged expiration. There is bilateral scattered rhonchi and mild end expiratory wheezing. There are basal fine rales of CHF. On percussion there is hyperresonance. HEART: S1-S2 is heard. There is no S3 gallop. There is no S4 gallop. Systolic murmur left sternal border and the apex there is no rub. ABDOMEN: Soft abdomen is distended. Bowel sounds are increased. There is shifting dullness of ascites and also on percussion there is tympanic note. There is no definite hepatosplenomegaly. There is no ascites present. There is a reducible right inguinal hernia present there is no tender areas masses. EXTREMITIES: Femorals are diminished. There is no femoral bruits. Leg pulses are diminished. There is trace pedal edema bilaterally. There is no DVT or cellulitis. There is no calf tenderness. There is no cyanosis or clubbing. MACHINERY ERECTOR: The patient is conscious awake alert oriented x3 with no focal deficits. PSYCHIATRIC the patient judgment insight are intact her affect is normal. Patient's 24-hour intake is 1290 ml. 24-hour output is 1100 ML. Labs- All tests 24 hr 04/18/20 04/18/20 04/18/20 05:59 05:59 05:59 WBC 8.6 RBC 4.47 Hgb 11.6 L Hct 35.7 L MCV 80 MCH 26.0 L MCHC 32.6 RDW 17.3 H Plt Count 271 Lymph % (Auto) 19.7 [place] % (Auto) 10.4 Eos % (Auto) 14.9 H Baso % (Auto) 2.4 H Absolute Neuts (auto) 4.5 Absolute Lymphs (auto) 1.7 Absolute Monos (auto) 0.9 Absolute Eos (auto) 1.3 H Absolute Basos (auto) 0.2 Seg Neutrophils % 52.6 Sodium 132.3 L Potassium 4.1 Chloride 98 Carbon Dioxide 29 Anion Gap 5 BUN 20 Creatinine 0.98 Est GFR ( Amer) > 60 Est GFR (MDRD) Non-Af > 60 Glucose 114 H Calcium 7.6 L Phosphorus 4.1 Magnesium 1.5 L IMPRESSION/RECOMMENDATION: 1. Acute on chronic respiratory failure: This is secondary to acute on chronic respiratory failure acute exacerbation of COPD and noncompliance. 2. COPD with acute exacerbation: Continue anti-COPD medication steroids and antibiotics. 3. 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 Continue current diuretics and and Toprol-XL. Continue Entresto. Continue midodrine. Patient is high risk for sudden and says a LifeVest on. No firing of the LifeVest. 4. Supraventricular tachycardia: Continue with his oxygen. Continues beta- sarina. 5. Dilated cardiomyopathy and also ischemic cardiomyopathy with severely reduced LV ejection fraction. 6. Possible pneumonia: Continue antibiotics 7. Cirrhosis of the liver with ascites. The plan is to get a ultrasound-guided thoracentesis tomorrow. 9. Right inguinal hernia: We will see if surgery can repair the patient's hernia once acute COPD and acute on chronic CHF are controlled 9. Coronary artery disease: No anginal symptoms. Patient has ischemic and dilated cardiomyopathy 10. Ongoing tobacco abuse: Tobacco cessation counseling given 11. Hypomagnesemia: Replace magnesium 12. Noncompliance with medication, smoking, medical advice and medical instructions, and diet. Education reviewed. Medical regimen and management plan discussed with RN provider on the case. Medical decision making is of high complexity. 40 minutes spent as patient more than 50% of time spent in direct patient care. Will follow.
[2020-04-19] MEDS: IPRATROPIUM/ALBUTEROL 0.5-2.5 MG/3 ML AMPUL NEB PRN ×4 (02:39→20:44)
[2020-04-19] MEDS: GABAPENTIN 300 MG CAPSULE PO SCH ×3 (06:18→21:02)
[2020-04-19] MEDS: FUROSEMIDE INJ/PF 20 MG/2 ML SDV IV SCH ×3 (06:19→21:02)
[2020-04-19 09:15] LABS: ABSOLUTE BASOPHILS # (AUTO) 0.1 10^3/uL (0.0-0.2); ABSOLUTE EOSINOPHILS # (AUTO) 0.6 10^3/uL (0.0-0.6); ABSOLUTE LYMPHOCYTES (AUTO) 1.2 10^3/uL (0.5-4.7); ABSOLUTE MONOCYTES (AUTO) 0.8 10^3/uL (0.1-1.4); ABSOLUTE NEUT (AUTO) 8.7 10^3/uL (1.7-8.2); BASOPHILS % (AUTO) 1.1 % (0-2); EOSINOPHILS % (AUTO) 5.2 % (0-6); HEMATOCRIT 39.6 % (37.9-51.0); HEMOGLOBIN 12.7 g/dL (13.5-17.0); LYMPHOCYTES % (AUTO) 10.8 % (13-45); MEAN CORPUSCULAR HEMOGLOBIN 25.5 pg (27.0-33.4); MEAN CORPUSCULAR VOLUME 80 fl (80-97); MONOCYTES % (AUTO) 7.1 % (3-13); PLATELET COUNT 320 10^3/uL (150-450); RED BLOOD COUNT 4.97 10^6/uL (4.35-5.55); RED CELL DISTRIBUTION WIDTH 17.2 % (11.5-14.0); SEGMENTED NEUTROPHILS % (AUTO) 75.8 % (42-78); TOTAL CELLS COUNTED % (AUTO) 100 %; WHITE BLOOD COUNT 11.5 10^3/uL (4.0-10.5)
[2020-04-19 09:30] LABS: ANION GAP 8 (5-19); BLOOD UREA NITROGEN 23 mg/dL (7-20); CALCIUM 7.9 mg/dL (8.4-10.2); CARBON DIOXIDE 26 mmol/L (22-30); CHLORIDE 99 mmol/L (98-107); GLUCOSE 112 mg/dL (75-110); POTASSIUM 4.2 mmol/L (3.6-5.0)
[2020-04-19] MEDS: METOPROLOL SUCCINATE 25 MG TAB.SR.24H PO SCH ×2 (09:41→21:03)
[2020-04-19] MEDS: MIDODRINE HCL 5 MG TABLET PO SCH ×3 (09:42→18:46)
[2020-04-19] MEDS: DIGOXIN INJ 0.5 MG/2 ML AMPULE IV SCH (09:42)
--- NOTE | 2020-04-19 09:58 | PDOC PROGRESS REPORT ---
Subjective Progress Note for:: 04/19/20 Subjective:: Patient reports that he "is not doing so well today". He endorses generally feeling unwell without specific complaint. He does note that he feels as if his breathing is worse today than yesterday. Reason For Visit: ATRIL FIBRILLATION WITH RVR, ACUTE SYSTOLIC CHF Physical Exam Vital Signs: Temp Pulse Resp BP Pulse Ox 97.6 F 128 H 23 H 152/109 H 100 04/19/20 07:58 04/19/20 07:58 04/19/20 07:58 04/19/20 07:58 04/19/20 07:58 Intake & Output 04/18/20 04/19/20 04/20/20 06:59 06:59 06:59 Intake Total 1290 1430 Output Total 1100 2220 Balance 190 -790 Weight 80.1 kg 78.5 kg General appearance: PRESENT: no acute distress, cooperative, disheveled Head exam: PRESENT: atraumatic, normocephalic Eye exam: PRESENT: conjunctiva pink Mouth exam: PRESENT: moist, tongue midline Neck exam: PRESENT: JVD - JVD to 3 cm above clavicle Respiratory exam: PRESENT: decreased breath sounds - Entry diminished at bases bilaterally, prolonged expiratory phas, symmetrical, tachypnea, unlabored, wh eezes - Wheezes scattered throughout. ABSENT: accessory muscle use, crackles, rales, retraction, rhonchi, stridor Vascular exam: PRESENT: normal capillary refill GI/Abdominal exam: PRESENT: ascites, distended, firm, hypoactive bowel sounds, other - Abdomen full, round, tight. ABSENT: guarding, rebound, tenderness Rectal exam: PRESENT: deferred Extremities exam: PRESENT: +2 edema - Bilateral pretibial edema. ABSENT: calf tenderness Neurological exam: PRESENT: alert, awake, oriented to person, oriented to place, oriented to time, oriented to situation, CN II-XII grossly intact Psychiatric exam: PRESENT: normal mood, unusual affect. ABSENT: agitated, anxious Skin exam: PRESENT: dry, normal color, warm Results Laboratory Results: 04/19/20 08:56 04/19/20 08:56 WBC 11.5 H RBC 4.97 Hgb 12.7 L Hct 39.6 MCV 80 MCH 25.5 L MCHC 32.0 RDW 17.2 H Plt Count 320 Seg Neutrophils % 75.8 04/17/20 04/17/20 07:05 07:05 Creatine Kinase 45 L Troponin I 0.068 NT-Pro-B Natriuret Pep 26738 H Assessment and Plan - Diagnosis (1) CHF (congestive heart failure) Qualifiers: Heart failure type: unspecified Heart failure chronicity: acute on chronic Qualified Code(s): I50.9 - Heart failure, unspecified Is this a current diagnosis for this admission?: Yes Plan: Cardiology input appreciated Continue furosemide 20 mg IV every 8 hours Initial weight 74.8 kg (question accuracy) days weight 78.5 kg, down 1.6 kg over past 24 hours Good balance +190 cc over previous 24 hours Midodrine 5 mg p.o. 3 times daily started by cardiology for blood pressure support in order to allow us to diurese patient (2) Atrial fibrillation with RVR Is this a current diagnosis for this admission?: Yes Plan: Patient converted to sinus rhythm after receiving several doses of IV digoxin Cardiology patient started on metoprolol succinate 25 mg p.o. every 12 hours Per cardiology patient started on digoxin 0.25 mg IV daily (3) NSVT (nonsustained ventricular tachycardia) Is this a current diagnosis for this admission?: Yes Plan: Patient had 22 beat run of nonsustained ventricular tachycardia overnight. Per nursing staff he was asymptomatic and the on-call physician was notified Hopefully now that patient is back on beta-sarina he will be less irritable Morning labs pending, will likely need to replete electrolytes Patient has LifeVest intact (4) Dyslipidemia Is this a current diagnosis for this admission?: Yes Plan: Continue simvastatin 80 mg p.o. daily at bedtime (5) Cirrhosis Qualifiers: Hepatic cirrhosis type: alcoholic cirrhosis Ascites presence: with ascites Qualified Code(s): K70.31 - Alcoholic cirrhosis of liver with ascites Is this a current diagnosis for this admission?: Yes Plan: Patient's abdomen is extremely full/round and seems to be impeding his diaphragmatic excursion Patient scheduled for ultrasound with paracentesis today if there is sufficient fluid to remove Continue lactulose 10 g p.o. every 12 hours (6) Acute and chronic respiratory failure Qualifiers: Is this a current diagnosis for this admission?: Yes Plan: Multifactorial including CHF/ascites/COPD Continue budesonide/formoterol 2 puffs every 12 hours Continue albuterol/ipratropium nebs every 2 hours as needed Supplemental O2 PRN Additional management as noted above (7) COPD (chronic obstructive pulmonary disease) Qualifiers: Is this a current diagnosis for this admission?: Yes Plan: No acute exacerbation Meds as noted above Bronchodilator nebs as needed (8) Hyponatremia Is this a current diagnosis for this admission?: Yes Plan: Volume likely contributing Labs from this a.m. are pending at the time of this dictation Diurese as noted above Monitor (9) Anemia Is this a current diagnosis for this admission?: Yes Plan: Anemia is minor No treatment indicated at this time Monitor (10) Leucocytosis Is this a current diagnosis for this admission?: Yes Plan: WBC slightly elevated this a.m. Patient afebrile Continue to monitor off antibiotics - Time Time Spent with patient: 25-34 minutes Medications reviewed and adjusted accordingly: Yes Anticipated Discharge Disposition: Home, Self Care Anticipated Discharge Timeframe: within 72 hours
[2020-04-19] MEDS ORDERED: SACUBITRIL/VALSARTAN 24 MG/26 MG TABLET PO SCH (10:00)
[2020-04-19] MEDS ORDERED: FUROSEMIDE 40 MG TABLET PO SCH (10:00)
--- NOTE | 2020-04-19 12:23 | RADIOLOGY REPORT (SQ) ---
EXAM DESCRIPTION: U/S ABD PARACENTESIS IMAGES COMPLETED DATE/TIME: 04/19/2020 11:14 am REASON FOR STUDY: Chronic liver failure with ascites COMPARISON: Paracentesis 03/26/2020 RADIATION DOSE: None LIMITATIONS: None. PROCEDURE: Procedure, risks, benefit, and alternative explained to patient who then gave written con sent. The right lower abdominal wall marked using ultrasound guidance. A time-out was called for co rrect marking verification. Abdomen prepped and draped using sterile technique. Local anesthesia ach ieved using 5 ml of 1% lidocaine injection. A 6fr [id number] set was introduced into the perito alta cavity. Fluid was drained. The catheter was removed and entry site was covered with sterile ba ndage. No immediate complications noted. Images acquired during the procedure were stored on PACS. FINDINGS: ENTRY SITE: right lower quadrant. FLUID VOLUME: 5600 mL FLUID ANALYSIS: Clear straw-colored fluid OTHER: Therapeutic only. IMPRESSION: SUCCESSFUL ULTRASOUND GUIDED PARACENTESIS. COMMENT: Patient medication list reviewed:Yes- Quality ID# [id number]:Eligible professional attests to docu menting in the medical record they obtained, updated, or reviewed the patient's current medications. TECHNICAL DOCUMENTATION: JOB ID: [id number] 2010 [employer]- All Rights Reserved Reading location - IP/workstation name: [email or web address] [id number]
[2020-04-19] MEDS ORDERED: ONDANSETRON 4 MG TAB.RAPDIS PO PRN (12:30)
[2020-04-19] MEDS ORDERED: ONDANSETRON HCL INJ/PF 4 MG/2 ML SDV IV PRN (12:30)
[2020-04-19] MEDS: FLUTICASONE/VILANTEROL 200-25 MCG/DOSE IH SCH (12:44)
[2020-04-19] MEDS: LACTULOSE SYRUP 20 GM/30 ML UDCUP PO SCH ×2 (12:47→21:03)
[2020-04-19] MEDS: ENOXAPARIN SODIUM INJ 40 MG/0.4 ML DISP.SYRIN SUBCUT SCH (12:48)
[2020-04-19] MEDS: FOLIC ACID 1 MG TABLET PO SCH (12:48)
[2020-04-19] MEDS: ASPIRIN 81 MG TABLET, ENT COATED PO SCH (12:48)
[2020-04-19] MEDS: DOCUSATE SODIUM 100 MG CAPSULE PO SCH (12:48)
--- NOTE | 2020-04-19 19:48 | Progress Note ---
Provider Note Provider Note: CARDIOLOGY PROGRESS NOTE by Dr. Lorenza Sandoval on 04/19/2020 SUBJECTIVE: The patient continues to be short of breath. He has orthopnea but no PND. He denies any chest pain or discomfort. He continues to have cough and is also wheezing. He is bringing up or coughing up yellowish sputum. He does have leg edema. There is no firing of his LifeVest. There is no TIA CVA symptoms. PHYSICAL EXAMINATION: The patient appears to be chronically ill and malnourished and a frail build. Selected Entries 04/19/20 07:58 Temperature 97.6 F Temperature Axillary Source Pulse Rate 128 H Respiratory 23 H Rate Blood Pressure 152/109 H Blood Pressure 123 Mean BP Location Right Arm BP Position Supine O2 Sat by Pulse 100 Oximetry Oxygen Flow 3 Rate Oxygen Delivery Nasal Cannula Method HEAD: Is atraumatic normocephalic. EYES: Pupils are equal round regular reactive to light accommodation. Extraocular movements are normal. There is no conjunctival pallor. There is no scleral icterus. EARS: Tympanic membranes are intact. External auditory canals are clear. NOSE: There is no deviated nasal septum. There is no inflammation nasal mucous membrane. MOUTH: Mucous membranes of the mouth are moist. Tongue is moist there is no ulcers. There is no bleeding from the gums THROAT: There is no redness of the oropharynx. There is no exudates. SKIN: There is no skin rashes. There is no skin lesions. There is no petechia or ecchymosis. NECK: Is supple there is mild JVD present. Carotids are equal there is no bruits. There is no lymphadenopathy. There is no goiter. There is no accessory muscle respiration use. Trachea central. LUNGS: There is diminished air entry prolonged expiration. There is bilateral scattered rhonchi and mild end expiratory wheezing. There are basal fine rales of CHF. On percussion there is hyperresonance. HEART: S1-S2 is heard. There is no S3 gallop. There is no S4 gallop. Systolic murmur left sternal border and the apex there is no rub. ABDOMEN: Soft abdomen is distended. Bowel sounds are increased. There is shifting dullness of ascites and also on percussion there is tympanic note. There is no definite hepatosplenomegaly. There is no ascites present. There is a reducible right inguinal hernia present there is no tender areas masses. EXTREMITIES: Femorals are diminished. There is no femoral bruits. Leg pulses are diminished. There is trace pedal edema bilaterally. There is no DVT or cellulitis. There is no calf tenderness. There is no cyanosis or clubbing. 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 PSYCHIATRIC the patient judgment insight are intact her affect is normal. Patient's 24-hour intake is 1430 ml. 24-hour output is 2220 ML. Labs and imaging were reviewed. IMPRESSION/RECOMMENDATION: 1. Acute on chronic respiratory failure: This is secondary to acute on chronic respiratory failure acute exacerbation of COPD and noncompliance. 2. COPD with acute exacerbation: Continue anti-COPD medication steroids and antibiotics. 3. 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 Continue current diuretics and and Toprol-XL. Continue Entresto. Continue midodrine. Patient is high risk for sudden and says a LifeVest on. No firing of the LifeVest. 4. Supraventricular tachycardia: Continue with his oxygen. Continues beta- sarina. 5. Dilated cardiomyopathy and also ischemic cardiomyopathy with severely reduced LV ejection fraction. 6. Possible pneumonia: Continue antibiotics 7. Cirrhosis of the liver with ascites. The plan is to get a ultrasound-guided thoracentesis tomorrow. 9. Right inguinal hernia: We will see if surgery can repair the patient's hernia once acute COPD and acute on chronic CHF are controlled 9. Coronary artery disease: No anginal symptoms. Patient has ischemic and dilated cardiomyopathy 10. Ongoing tobacco abuse: Tobacco cessation counseling given 11. Hypomagnesemia: Replace magnesium 12. Noncompliance with medication, smoking, medical advice and medical instructions, and diet. Education reviewed. Medical regimen and management plan discussed with RN provider on the case. Medical decision making is of high complexity. 40 marcie aurelio spent as patient more than 50% of time spent in direct patient care. Will follow.
[2020-04-19] MEDS: MORPHINE SULFATE 10 MG/ML INJ IV PRN (20:31)
[2020-04-19] MEDS: SIMVASTATIN 40 MG TABLET PO SCH (21:02)
[2020-04-20] MEDS: IPRATROPIUM/ALBUTEROL 0.5-2.5 MG/3 ML AMPUL NEB PRN ×3 (03:59→15:56)
[2020-04-20] MEDS: FUROSEMIDE INJ/PF 20 MG/2 ML SDV IV SCH ×2 (05:10→14:33)
[2020-04-20] MEDS: GABAPENTIN 300 MG CAPSULE PO SCH ×3 (05:10→23:16)
[2020-04-20] MEDS: MORPHINE SULFATE 10 MG/ML INJ IV PRN (05:50)
[2020-04-20 06:43] LABS: ABSOLUTE BASOPHILS # (AUTO) 0.1 10^3/uL (0.0-0.2); ABSOLUTE EOSINOPHILS # (AUTO) 0.7 10^3/uL (0.0-0.6); ABSOLUTE MONOCYTES (AUTO) 1.1 10^3/uL (0.1-1.4); ABSOLUTE NEUT (AUTO) 10.3 10^3/uL (1.7-8.2); EOSINOPHILS % (AUTO) 5.1 % (0-6); HEMATOCRIT 41.3 % (37.9-51.0); HEMOGLOBIN 13.4 g/dL (13.5-17.0); LYMPHOCYTES % (AUTO) 7.6 % (13-45); MEAN CORPUSCULAR HEMOGLOBIN 25.9 pg (27.0-33.4); MEAN CORPUSCULAR HGB CONC 32.5 g/dL (32.0-36.0); MEAN CORPUSCULAR VOLUME 80 fl (80-97); MONOCYTES % (AUTO) 8.3 % (3-13); PLATELET COUNT 303 10^3/uL (150-450); RED BLOOD COUNT 5.18 10^6/uL (4.35-5.55); RED CELL DISTRIBUTION WIDTH 17.4 % (11.5-14.0); TOTAL CELLS COUNTED % (AUTO) 100 %; WHITE BLOOD COUNT 13.1 10^3/uL (4.0-10.5)
[2020-04-20 10:55] LABS: ALBUMIN 2.5 g/dL (3.5-5.0); ALKALINE PHOSPHATASE 137 U/L (38-126); ANION GAP 9 (5-19); ASPARTATE AMINO TRANSFERASE 22 U/L (17-59); BILIRUBIN,DIRECT 0.1 mg/dL (0.0-0.4); BILIRUBIN,TOTAL 0.7 mg/dL (0.2-1.3); BLOOD UREA NITROGEN 25 mg/dL (7-20); CALCIUM 7.5 mg/dL (8.4-10.2); CARBON DIOXIDE 28 mmol/L (22-30); CHLORIDE 96 mmol/L (98-107); GLUCOSE 84 mg/dL (75-110); PHOSPHORUS 3.9 mg/dL (2.5-4.5); POTASSIUM 4.4 mmol/L (3.6-5.0)
[2020-04-20] MEDS: FLUTICASONE/VILANTEROL 200-25 MCG/DOSE IH SCH (11:32)
[2020-04-20] MEDS: ENOXAPARIN SODIUM INJ 40 MG/0.4 ML DISP.SYRIN SUBCUT SCH (11:33)
[2020-04-20] MEDS: DIGOXIN INJ 0.5 MG/2 ML AMPULE IV SCH (11:34)
[2020-04-20] MEDS ORDERED: NALOXONE HCL INJ/PF 0.4 MG/1 ML SDV ONE ×2 (11:39→19:59)
[2020-04-20] MEDS ORDERED: NALOXONE HCL INJ/PF 0.4 MG/1 ML SDV IV ONE ×4 (11:40→20:07)
[2020-04-20] MEDS ORDERED: DOPAMINE HCL/DEXTROSE 5%-WATER 800 MG/250 ML RTUINJ IV PRN (11:42)
[2020-04-20] MEDS: ASPIRIN 81 MG TABLET, ENT COATED PO SCH (11:47)
[2020-04-20] MEDS: DOCUSATE SODIUM 100 MG CAPSULE PO SCH (11:47)
[2020-04-20] MEDS: LACTULOSE SYRUP 20 GM/30 ML UDCUP PO SCH (11:47)
[2020-04-20] MEDS: FOLIC ACID 1 MG TABLET PO SCH (11:48)
[2020-04-20] MEDS: MIDODRINE HCL 5 MG TABLET PO SCH ×3 (11:49→17:21)
[2020-04-20] MEDS: METOPROLOL SUCCINATE 25 MG TAB.SR.24H PO SCH (12:07)
[2020-04-20] MEDS: MAGNESIUM SULFATE/D5W 1 GM/100 ML RTUPB IV SCH ×2 (12:14→13:22)
--- NOTE | 2020-04-20 12:15 | RADIOLOGY REPORT (SQ) ---
EXAM DESCRIPTION: CHEST SINGLE VIEW IMAGES COMPLETED DATE/TIME: 04/20/2020 12:06 pm REASON FOR STUDY: CHF / Pneumonia. COMPARISON: 04/17/2020 EXAM PARAMETERS: NUMBER OF VIEWS: One view. TECHNIQUE: Single frontal radiographic view of the chest acquired. RADIATION DOSE: NA LIMITATIONS: None. FINDINGS: LUNGS AND PLEURA: Increasing interstitial airspace disease most marked in the perihilar re gions. Probable left effusion. MEDIASTINUM AND HILAR STRUCTURES: No masses. Contour normal. HEART AND VASCULAR STRUCTURES: Heart remains enlarged. BONES: No acute findings. HARDWARE: None in the chest. OTHER: No other significant finding. IMPRESSION: Increasing vascular congestion. TECHNICAL DOCUMENTATION: JOB ID: [id number] 2010 [employer]- All Rights Reserved Reading location - IP/workstation name: [email or web address]
[2020-04-20 12:30] LABS: ARTERIAL BLOOD BASE EXCESS 2.5 mmol/L; ARTERIAL BLOOD H2CO3 1.26 mmol/L (1.05-1.35); ARTERIAL BLOOD HCO3 27.1 mmol/L (20-24); ARTERIAL BLOOD PCO2 41.9 mmHg (35-45); ARTERIAL BLOOD PH 7.43 (7.35-7.45); ARTERIAL BLOOD TOTAL CO2 28.4 mmol/L (23-27)
[2020-04-20 12:32] LABS: ARTERIAL BLOOD FIO2 2L
--- NOTE | 2020-04-20 12:46 | PDOC PROGRESS REPORT ---
Subjective Progress Note for:: 04/20/20 Subjective:: Patient drowsy and delirious today with periodic lucid episodes Reason For Visit: ATRIL FIBRILLATION WITH RVR, ACUTE SYSTOLIC CHF Physical Exam Vital Signs: Temp Pulse Resp BP Pulse Ox 98.8 F 105 H 16 96/61 L 95 04/20/20 11:09 04/20/20 11:09 04/20/20 11:09 04/20/20 11:09 04/20/20 11:09 Intake & Output 04/19/20 04/20/20 04/21/20 06:59 06:59 06:59 Intake Total 1430 1075 Output Total 2220 1750 Balance -790 -675 Weight 78.5 kg 78.5 kg General appearance: PRESENT: disheveled, mild distress, other - Tremulous Head exam: PRESENT: atraumatic, normocephalic Eye exam: PRESENT: conjunctiva pink Mouth exam: PRESENT: moist Neck exam: PRESENT: JVD - JVD to 3 cm above clavicle Respiratory exam: PRESENT: crackles, decreased breath sounds, prolonged expiratory phas, rhonchi, symmetrical, other - Respirations slightly labored. Breath sounds coarse with audible crackles. ABSENT: accessory muscle use Cardiovascular exam: PRESENT: irregular rhythm, +S1, +S2 - Patient with frequent PACs and short runs of A. fib, tachycardia Vascular exam: PRESENT: normal capillary refill GI/Abdominal exam: PRESENT: distended, hypoactive bowel sounds, soft. ABSENT: firm, guarding, rebound, rigid, tenderness Rectal exam: PRESENT: deferred Extremities exam: PRESENT: pedal edema, +2 edema. ABSENT: calf tenderness Neurological exam: PRESENT: altered, awake, oriented to person, oriented to place Psychiatric exam: PRESENT: agitated, anxious Skin exam: PRESENT: dry, normal color, warm Results Laboratory Results: 04/20/20 06:09 04/20/20 09:53 04/20/20 04/20/20 04/20/20 06:09 06:09 09:53 WBC 13.1 H RBC 5.18 Hgb 13.4 L Hct 41.3 MCV 80 MCH 25.9 L MCHC 32.5 RDW 17.4 H Plt Count 303 Seg Neutrophils % 78.0 Carbonic Acid HCO3/H2CO3 Ratio ABG pH ABG pCO2 ABG pO2 ABG HCO3 ABG O2 Saturation ABG Base Excess FiO2 Sodium Cancelled 132.9 L Potassium Cancelled 4.4 Chloride Cancelled 96 L Carbon Dioxide Cancelled 28 Anion Gap Cancelled 9 BUN Cancelled 25 H Creatinine Cancelled 0.95 Est GFR ( Amer) Cancelled > 60 Est GFR (Non-Af Amer) Cancelled Glucose Cancelled 84 Calcium Cancelled 7.5 L Phosphorus Cancelled 3.9 Magnesium Cancelled 1.2 L* Total Bilirubin Cancelled 0.7 AST Cancelled 22 Alkaline Phosphatase Cancelled 137 H Total Protein Cancelled 6.0 L Albumin Cancelled 2.5 L 04/20/20 12:10 WBC RBC Hgb Hct MCV MCH MCHC RDW Plt Count Seg Neutrophils % Carbonic Acid 1.26 HCO3/H2CO3 Ratio 21:1 ABG pH 7.43 ABG pCO2 41.9 ABG pO2 51.0 L ABG HCO3 27.1 H ABG O2 Saturation 87.0 L ABG Base Excess 2.5 FiO2 2L Sodium Potassium Chloride Carbon Dioxide Anion Gap BUN Creatinine Est GFR ( Amer) Est GFR (Non-Af Amer) Glucose Calcium Phosphorus Magnesium Total Bilirubin AST Alkaline Phosphatase Total Protein Albumin 04/17/20 04/17/20 04/19/20 07:05 07:05 08:56 Creatine Kinase 45 L Troponin I 0.068 NT-Pro-B Natriuret Pep 44341 H 42252 H 04/20/20 06:09 Creatine Kinase Troponin I NT-Pro-B Natriuret Pep 55218 H Impressions: Paracentesis Ultrasound 04/19/20 00:00 IMPRESSION: SUCCESSFUL ULTRASOUND GUIDED PARACENTESIS. Chest X-Ray 04/20/20 00:00 IMPRESSION: Increasing vascular congestion. Assessment and Plan - Diagnosis (1) AMS (altered mental status) Is this a current diagnosis for this admission?: Yes Plan: AMS likely multifactorial ABG noted (patient hypoxic) Check ammonia level Patient has received 2 doses of naloxone 0.4 mg and does appear to be more alert following administration of this medication Transfer to [facility] (2) Acute and chronic respiratory failure Qualifiers: Is this a current diagnosis for this admission?: Yes Plan: Multifactorial including CHF/ascites/COPD, patient now hypoxic ABG 7.4 //20 7/87% Cautiously titrate FiO2 (patient with COPD), may require BiPAP support however the patient refuses at this time Continue budesonide/formoterol 2 puffs every 12 hours Continue albuterol/ipratropium nebs every 2 hours as needed Additional management as noted (3) CHF (congestive heart failure) Qualifiers: Heart failure type: unspecified Heart failure chronicity: acute on chronic Qualified Code(s): I50.9 - Heart failure, unspecified Is this a current diagnosis for this admission?: Yes Plan: Cardiology input appreciated Patient appears to be more volume overloaded today Patient received additional furosemide 20 mg IV x1 Continue furosemide 20 mg IV every 8 hours Initial weight 74.8 kg (question accuracy) todays weight 78.5 kg which is the s kyung weight as yesterday in spite of the fact that since that time he has had over 6 L removed with paracentesis Fluid balance 675 cc over previous 24 hours (not including fluid removed during paracentesis) Midodrine increased to 10 mg p.o. 3 times daily and dopamine ordered by cardiology for BP support to allow for aggressive diuresis Consult surgery to place central line (4) Atrial fibrillation with RVR Is this a current diagnosis for this admission?: Yes Plan: Patient converted to sinus rhythm after receiving several doses of IV digoxin Cardiology patient started metoprolol succinate 25 mg p.o. every 12 hours, given hypotension and need for pressor support will hold Continue digoxin 0.25 mg IV daily (5) NSVT (nonsustained ventricular tachycardia) Is this a current diagnosis for this admission?: Yes Plan: Patient had 22 beat run of nonsustained ventricular tachycardia overnight 04/18/20-04/19/20 Replete magnesium Patient has LifeVest intact (6) Dyslipidemia Is this a current diagnosis for this admission?: Yes Plan: Continue simvastatin 80 mg p.o. daily at bedtime (7) Cirrhosis Qualifiers: Hepatic cirrhosis type: alcoholic cirrhosis Ascites presence: with ascites Qualified Code(s): K70.31 - Alcoholic cirrhosis of liver with ascites Is this a current diagnosis for this admission?: Yes Plan: Patient underwent successful paracentesis on 04/19/2020 to remove 5600 cc straw- colored fluid Serum ammonia pending Continue lactulose 10 g p.o. every 12 hours (8) COPD (chronic obstructive pulmonary disease) Qualifiers: Is this a current diagnosis for this admission?: Yes Plan: No acute exacerbation Meds as noted above Bronchodilator nebs as needed (9) Hyponatremia Is this a current diagnosis for this admission?: Yes Plan: Volume likely contributing Serum sodium overall stable Diurese as noted above Initiate 1200 cc fluid restriction Monitor (10) Anemia Is this a current diagnosis for this admission?: Yes Plan: H/H trending up in spite of volume status No treatment indicated at this time Monitor (11) Leucocytosis Is this a current diagnosis for this admission?: Yes Plan: WBC continues to trend up Patient remains afebrile Check blood cultures Continue to monitor off antibiotics at this time (12) Hypomagnesemia Is this a current diagnosis for this admission?: Yes Plan: Replete Monitor - Time Time Spent with patient: 35 or more minutes Medications reviewed and adjusted accordingly: Yes Anticipated Discharge Disposition: Home, Self Care Anticipated Discharge Timeframe: within 72 hours
[2020-04-20] MEDS ORDERED: FUROSEMIDE INJ/PF 20 MG/2 ML SDV IV ONE (13:00)
--- NOTE | 2020-04-20 16:34 | Operative Report ---
Nonrecallable Operative Report DATE OF SURGERY: 04/20/20 PREOPERATIVE DIAGNOSIS: chf POSTOPERATIVE DIAGNOSIS: chf OPERATION: central line placment SURGEON: ROMAN SANTANA ANESTHESIA: Local TISSUE REMOVED OR ALTERED: none COMPLICATIONS: none ESTIMATED BLOOD LOSS: 5cc INTRAOPERATIVE FINDINGS: see note PROCEDURE: This procedure was done while the patient was in his hospital bed. The right groin was prepped and draped in usual sterile fashion. Using 1% lidocaine a small skin wheal was made over the right femoral vein. Right femoral vein was accessed with a 16-gauge needle and then through the needle a wire was placed into this inferior vena cava. The tract was dilated with a dilator supplied with a kit. And then over the wire a triple-lumen 16-gauge central line catheter was placed. It was fixed in place in the right groin with 2-0 silk sterile dressing applied which completed the procedure Estimated loss less than 5 cc sponge and needle counts correct x2. The patient tolerated the procedure well need to
--- NOTE | 2020-04-20 18:46 | Progress Note ---
Provider Note Provider Note: CARDIOLOGY PROGRESS NOTE by Dr. Lorenza Sandoval on 04/20/2020. SUBJECTIVE: The patient is very lethargic and not very easily arousable. He also has shallow respirations. The patient did receive morphine. He was given Narcan 0.5 mg IV push x1 with the patient perking up a little. But since the patient is hypotensive. Cannot start the patient on any meaningful doses of beta-sarina or afterload reducing agents for his cardiomyopathy. He is continues to be wheezing and bilateral coarse rales and few bibasilar rales. There is no recurrence of atrial or ventricular arrhythmias. The patient's magnesium was low and the patient has been replenished with magnesium rider. PHYSICAL EXAMINATION: The patient is chronically ill and appears to be malnourished. Selected Entries 04/20/20 04/20/20 11:01 11:09 Temperature 98.8 F Temperature Axillary Source Pulse Rate 105 H Respiratory 16 Rate Blood Pressure 96/61 L Blood Pressure 72 Mean BP Location Right Arm BP Position Supine O2 Sat by Pulse 95 Oximetry Oxygen Flow 2 Rate Oxygen Delivery Nasal Cannula Method HEAD: Is atraumatic normocephalic. EYES: Pupils are equal round regular reactive to light accommodation. Extraocular movements are normal. There is no conjunctival pallor. There is no scleral icterus. EARS: Tympanic membranes are intact. External auditory canals are clear. NOSE: There is no deviated nasal septum. There is no inflammation nasal mucous membrane. MOUTH: Mucous membranes of the mouth are moist. Tongue is moist there is no ulcers. There is no bleeding from the gums THROAT: There is no redness of the oropharynx. There is no exudates. SKIN: There is no skin rashes. There is no skin lesions. There is no petechia or ecchymosis. NECK: Is supple there is mild JVD present. Carotids are equal there is no bruits. There is no lymphadenopathy. There is no goiter. There is no accessory muscle respiration use. Trachea central. LUNGS: There is diminished air entry prolonged expiration. There is bilateral scattered rhonchi and mild end expiratory wheezing. There are basal fine rales of CHF. On percussion there is hyperresonance. HEART: S1-S2 is heard. There is no S3 gallop. There is no S4 gallop. Systolic murmur left sternal border and the apex there is no rub. ABDOMEN: Soft abdomen is distended. Bowel sounds are increased. There is shifting dullness of ascites and also on percussion there is tympanic note. There is no definite hepatosplenomegaly. There is no ascites present. There is a reducible right inguinal hernia present there is no tender areas masses. EXTREMITIES: Femorals are diminished. There is no femoral bruits. Leg pulses are diminished. There is trace pedal edema bilaterally. There is no DVT or cellulitis. There is no calf tenderness. There is no cyanosis or clubbing. 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 But moves all 4 extremities. PSYCHIATRIC: Psychiatric exam not done due to patient mental status IMPRESSION/RECOMMENDATION: 1. Altered mental status most likely secondary to narcotic overdose. The patient did perk up a little after he was given Narcan 0.4 mg. Intravenously. Await ABGs on the patient. 2. Hypotension: We will get a central line placed and transfer the patient to the telemetry unit so that we can start the patient on dopamine. The increased dose of mid midodrine has not helped. Hence due to low blood pressure could not start the patient on meaningful doses of afterload reduction and beta blockers. 3. Acute on chronic respiratory failure: This is secondary to acute on chronic respiratory failure acute exacerbation of COPD and noncompliance. 4. COPD with acute exacerbation: Continue anti-COPD medication steroids and antibiotics. 5. 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 Continue current diuretics and and Toprol-XL. Continue Entresto. Continue midodrine. Patient is high risk for sudden and says a LifeVest on. No firing of the LifeVest. 5. Supraventricular tachycardia: Continue with his oxygen. Continues beta- sarina. 6. Dilated cardiomyopathy and also ischemic cardiomyopathy with severely reduced LV ejection fraction. 7. Possible pneumonia: Continue antibiotics 8. Cirrhosis of the liver with ascites. The patient had paracentesis and had fluid removed from his abdomen. 9. Right inguinal hernia: We will see if surgery can repair the patient's hernia once acute COPD and acute on chronic CHF are controlled 10. Coronary artery disease: No anginal symptoms. Patient has ischemic and dilated cardiomyopathy 11. Ongoing tobacco abuse: Tobacco cessation counseling given 12. Hypomagnesemia: Replace magnesium Medications reviewed medical regimen management plan discussed with attending provider on the case. Medical decision making is of high complexity. 40 minutes spent as patient more than 50% time spent in direct patient care. Will follow Medications reviewed. Decision made to transfer the patient for inotropic support for his blood pressure so that he can be placed on Entresto and beta- sarina. The patient's midodrine is not helping. Medical decision making is of high complexity. All of the medications and medical management discussed with attending provider on the case. Medical decision making is of high complexity. 40 minutes spent as patient more than 50% time spent in direct patient care. Will follow. 9 PM on 04/20/2020: The patient had an MANIPULATOR OPERATOR called due to decreased responsiveness. He was given Romazicon and also due to low blood pressure he was placed on dopamine at increasing doses. Please see Dr. Alexis's note. After discussion with the patient's daughter on cell phone she wanted the patient to be DNR. Hence will write that. Earlier the patient had also told me that he was fed up office coming in and out of hospital and wanted to be a DNR. But he had not seriously asked me to put it in the chart. But with the daughter requesting the patient be DNR agree with that since patient's prognosis very poor. But we will continue the patient's dopamine
[2020-04-20] MEDS ORDERED: NORMAL SALINE 1000 ML 1,000 ML IV ONE ×3 (19:30→20:48)
[2020-04-20] MEDS ORDERED: FLUMAZENIL INJ 0.5 MG/5 ML VIAL ONE (20:52)
[2020-04-20 21:06] LABS: HEMATOCRIT 32.1 % (37.9-51.0); MEAN CORPUSCULAR HEMOGLOBIN 26.2 pg (27.0-33.4); MEAN CORPUSCULAR HGB CONC 33.2 g/dL (32.0-36.0); MEAN CORPUSCULAR VOLUME 79 fl (80-97); PLATELET COUNT 223 10^3/uL (150-450); RED BLOOD COUNT 4.06 10^6/uL (4.35-5.55); RED CELL DISTRIBUTION WIDTH 16.8 % (11.5-14.0); WHITE BLOOD COUNT 9.2 10^3/uL (4.0-10.5)
[2020-04-20 21:17] LABS: ANION GAP 7 (5-19); BLOOD UREA NITROGEN 29 mg/dL (7-20); CALCIUM 7.4 mg/dL (8.4-10.2); CARBON DIOXIDE 29 mmol/L (22-30); CHLORIDE 95 mmol/L (98-107); GLUCOSE 92 mg/dL (75-110); POTASSIUM 3.7 mmol/L (3.6-5.0)
[2020-04-20] MEDS ORDERED: FLUMAZENIL INJ 0.5 MG/5 ML VIAL IV ONE (21:30)
[2020-04-20 21:32] LABS: HEMOGLOBIN 10.6 g/dL (13.5-17.0)
[2020-04-20 21:32] LABS: ARTERIAL BLOOD BASE EXCESS 4.3 mmol/L; ARTERIAL BLOOD H2CO3 1.35 mmol/L (1.05-1.35); ARTERIAL BLOOD HCO3 29.1 mmol/L (20-24); ARTERIAL BLOOD O2 SATURATION 98.8 % (94-98); ARTERIAL BLOOD PCO2 44.9 mmHg (35-45); ARTERIAL BLOOD PH 7.43 (7.35-7.45); ARTERIAL BLOOD PO2 135.3 mmHg (80-100); ARTERIAL BLOOD TOTAL CO2 30.5 mmol/L (23-27)
[2020-04-20 21:35] LABS: ARTERIAL BLOOD FIO2 13L
--- NOTE | 2020-04-20 21:47 | Progress Note ---
Provider Note Provider Note: Critical CARE note: 04/20/2020 Critical care onset time: 8:39 PM Critical care issue: Hypotension, unresponsiveness, hypoxia, bradycardia A rapid response was called at 8:39 PM due to the patient being hypotensive, hypoxic, bradycardia and unresponsive. On exam patient was minimally responsive to painful stimuli but was found to have a heart rate of 88 on auscultation though he was noted to have nonpalpable radial pulses. His oxygen saturation was 90%. He was given IV Romazicon and after discussion with Dr. Sandoval he was also given a fluid bolus and his dopamine infusion rate was increased. Dr. Sandoval and I talked with the patient's family (POA) who decided that she wished for the patient to be DO NOT RESUSCITATE and DO NOT INTUBATE status. Arterial blood gases, a CBC, and magnesium level and a metabolic profile were obtained. Patient's blood pressure improved modestly with a systolic pressure in the 80s and 90s. Patient remained poorly responsive but his oxygen saturation did improve. He became combative for short time and removed his central line resulting in the need for continuing his vasopressors through a peripheral IV. Patient will be rechecked numerous times throughout the remainder of my shift for reevaluation of his status. Critical care end time: 9:46 PM Total critical care time: 34 minutes
[2020-04-20] MEDS: SIMVASTATIN 40 MG TABLET PO SCH (23:17)
[2020-04-21] MEDS: FUROSEMIDE INJ/PF 20 MG/2 ML SDV IV SCH ×3 (00:52→20:35)
[2020-04-21] MEDS: LACTULOSE SYRUP 20 GM/30 ML UDCUP PO SCH ×4 (00:53→13:19)
[2020-04-21] MEDS: GABAPENTIN 300 MG CAPSULE PO SCH ×3 (06:33→20:35)
[2020-04-21] MEDS ORDERED: CEFTRIAXONE 1 GM/D5W RTU 1 GM/50 ML RTUPB IV SCH ×2 (07:01→08:00)
[2020-04-21 07:06] LABS: ABSOLUTE BASOPHILS # (AUTO) 0.1 10^3/uL (0.0-0.2); ABSOLUTE EOSINOPHILS # (AUTO) 0.3 10^3/uL (0.0-0.6); ABSOLUTE LYMPHOCYTES (AUTO) 1.2 10^3/uL (0.5-4.7); ABSOLUTE MONOCYTES (AUTO) 1.2 10^3/uL (0.1-1.4); BASOPHILS % (AUTO) 0.9 % (0-2); EOSINOPHILS % (AUTO) 3.9 % (0-6); HEMATOCRIT 36.7 % (37.9-51.0); HEMOGLOBIN 12.1 g/dL (13.5-17.0); LYMPHOCYTES % (AUTO) 13.4 % (13-45); MEAN CORPUSCULAR HGB CONC 32.9 g/dL (32.0-36.0); MEAN CORPUSCULAR VOLUME 79 fl (80-97); MONOCYTES % (AUTO) 13.6 % (3-13); PLATELET COUNT 208 10^3/uL (150-450); RED BLOOD COUNT 4.63 10^6/uL (4.35-5.55); RED CELL DISTRIBUTION WIDTH 16.9 % (11.5-14.0); SEGMENTED NEUTROPHILS % (AUTO) 68.2 % (42-78); TOTAL CELLS COUNTED % (AUTO) 100 %; WHITE BLOOD COUNT 8.8 10^3/uL (4.0-10.5)
[2020-04-21 07:11] LABS: ALBUMIN 2.5 g/dL (3.5-5.0); ALKALINE PHOSPHATASE 137 U/L (38-126); ANION GAP 9 (5-19); ASPARTATE AMINO TRANSFERASE 27 U/L (17-59); BILIRUBIN,DIRECT 0.1 mg/dL (0.0-0.4); BILIRUBIN,TOTAL 0.8 mg/dL (0.2-1.3); BLOOD UREA NITROGEN 30 mg/dL (7-20); CALCIUM 7.6 mg/dL (8.4-10.2); CARBON DIOXIDE 30 mmol/L (22-30); CHLORIDE 96 mmol/L (98-107); GLUCOSE 103 mg/dL (75-110); POTASSIUM 3.6 mmol/L (3.6-5.0)
--- NOTE | 2020-04-21 07:56 | PDOC PROGRESS REPORT ---
Subjective Progress Note for:: 04/21/20 Subjective:: Patient extremely drowsy but arousable to verbal stimuli. When asked how he is doing he states "fine". Reason For Visit: ATRIL FIBRILLATION WITH RVR, ACUTE SYSTOLIC CHF Physical Exam Vital Signs: Temp Pulse Resp BP Pulse Ox 97.3 F 109 H 14 87/56 L 93 04/21/20 04:00 04/21/20 06:00 04/21/20 04:00 04/21/20 06:00 04/21/20 04:00 Intake & Output 04/19/20 04/20/20 04/21/20 06:59 06:59 06:59 Intake Total 1430 1075 100 Output Total 2220 1750 2350 Balance -790 -195 -2250 Weight 78.5 kg 78.5 kg 69.6 kg General appearance: PRESENT: no acute distress, well-developed Head exam: PRESENT: atraumatic, normocephalic Eye exam: PRESENT: scleral icterus Mouth exam: PRESENT: moist Neck exam: PRESENT: JVD - JVD to 2 cm above clavicle Respiratory exam: PRESENT: decreased breath sounds - Air entry diminished at bases bilaterally, prolonged expiratory phas, rales, rhonchi, symmetrical, unlabored. ABSENT: accessory muscle use, retraction Pulses: PRESENT: normal carotid pulses Vascular exam: PRESENT: normal capillary refill GI/Abdominal exam: PRESENT: distended, hypoactive bowel sounds, soft. ABSENT: firm, guarding, rigid, tenderness Rectal exam: PRESENT: deferred Extremities exam: PRESENT: pedal edema, +2 edema - 2-3 mm pitting pretibial edema bilaterally. ABSENT: calf tenderness Neurological exam: PRESENT: awake, oriented to person, oriented to place. ABSENT: oriented to time, oriented to situation Psychiatric exam: PRESENT: agitated, other - Encephalopathic Skin exam: PRESENT: dry, pallor, warm Results Laboratory Results: 04/20/20 04/20/20 04/20/20 06:09 09:53 12:10 WBC RBC Hgb Hct MCV MCH MCHC RDW Plt Count Carbonic Acid 1.26 HCO3/H2CO3 Ratio 21:1 ABG pH 7.43 ABG pCO2 41.9 ABG pO2 51.0 L ABG HCO3 27.1 H ABG O2 Saturation 87.0 L ABG Base Excess 2.5 FiO2 2L Sodium Cancelled 132.9 L Potassium Cancelled 4.4 Chloride Cancelled 96 L Carbon Dioxide Cancelled 28 Anion Gap Cancelled 9 BUN Cancelled 25 H Creatinine Cancelled 0.95 Est GFR ( Amer) Cancelled > 60 Est GFR (Non-Af Amer) Cancelled Glucose Cancelled 84 Calcium Cancelled 7.5 L Phosphorus Cancelled 3.9 Magnesium Cancelled 1.2 L* Total Bilirubin Cancelled 0.7 AST Cancelled 22 Alkaline Phosphatase Cancelled 137 H Ammonia Total Protein Cancelled 6.0 L Albumin Cancelled 2.5 L 04/20/20 04/20/20 04/20/20 13:25 20:49 20:49 WBC 9.2 RBC 4.06 L Hgb 10.6 L D Hct 32.1 L MCV 79 L MCH 26.2 L MCHC 33.2 RDW 16.8 H Plt Count 223 Carbonic Acid HCO3/H2CO3 Ratio ABG pH ABG pCO2 ABG pO2 ABG HCO3 ABG O2 Saturation ABG Base Excess FiO2 Sodium 130.5 L Potassium 3.7 Chloride 95 L Carbon Dioxide 29 Anion Gap 7 BUN 29 H Creatinine 1.07 Est GFR ( Amer) > 60 Est GFR (Non-Af Amer) Glucose 92 Calcium 7.4 L Phosphorus Magnesium 1.6 Total Bilirubin AST Alkaline Phosphatase Ammonia 127.9 H Total Protein Albumin 04/20/20 20:58 WBC RBC Hgb Hct MCV MCH MCHC RDW Plt Count Carbonic Acid 1.35 HCO3/H2CO3 Ratio 21:1 ABG pH 7.43 ABG pCO2 44.9 ABG pO2 135.3 H ABG HCO3 29.1 H ABG O2 Saturation 98.8 H ABG Base Excess 4.3 FiO2 13L Sodium Potassium Chloride Carbon Dioxide Anion Gap BUN Creatinine Est GFR ( Amer) Est GFR (Non-Af Amer) Glucose Calcium Phosphorus Magnesium Total Bilirubin AST Alkaline Phosphatase Ammonia Total Protein Albumin 04/17/20 04/17/20 04/19/20 07:05 07:05 08:56 Creatine Kinase 45 L Troponin I 0.068 NT-Pro-B Natriuret Pep 91469 H 56233 H 04/20/20 06:09 Creatine Kinase Troponin I NT-Pro-B Natriuret Pep 33868 H Impressions: Paracentesis Ultrasound 04/19/20 00:00 IMPRESSION: SUCCESSFUL ULTRASOUND GUIDED PARACENTESIS. Chest X-Ray 04/20/20 00:00 IMPRESSION: Increasing vascular congestion. Assessment and Plan - Diagnosis (1) AMS (altered mental status) Is this a current diagnosis for this admission?: Yes Plan: Encephalopathy likely multifactorial (hypoxia, hypotension, elevated ammonia) Ammonia level 127.9 on 04/20/20 Lactulose increased to 20 g p.o. every 8 hours (nurse states that she held dose overnight 2/2 the fact that the patient had 2 bowel movements and he was not alert enough to take p.o.) Keep patient in IMCU (2) Acute and chronic respiratory failure Qualifiers: Is this a current diagnosis for this admission?: Yes Plan: Multifactorial including CHF/ascites/COPD, patient now hypoxic Patient now requiring 100% nonrebreather to maintain O2 saturation Patient continues to refuse BiPAP Continue fluticasone/vilanterol 1 puff daily (product substitution) Continue albuterol/ipratropium nebs every 2 hours as needed Additional management as noted (3) CHF (congestive heart failure) Qualifiers: Heart failure type: unspecified Heart failure chronicity: acute on chronic Qualified Code(s): I50.9 - Heart failure, unspecified Is this a current diagnosis for this admission?: Yes Plan: Cardiology input appreciated Patient continues to appear volume overloaded Continue furosemide 20 mg IV every 8 hours Initial weight 74.8 kg (question accuracy) todays weight 70.7 kg (down 4.1 kg) Fluid balance - 2800 Continue midodrine 10 mg p.o. 3 times daily Continue pressor support with dopamine Patient had central line placed on zero 04/20/20 however he pulled the central line out overnight (4) Atrial fibrillation with RVR Is this a current diagnosis for this admission?: Yes Plan: Patient converted to sinus rhythm after receiving several doses of IV digoxin Cardiology patient started metoprolol succinate 25 mg p.o. every 12 hours, given hypotension and need for pressor support will continue to hold Continue digoxin 0.25 mg IV daily (5) NSVT (nonsustained ventricular tachycardia) Is this a current diagnosis for this admission?: Yes Plan: Patient had 22 beat run of nonsustained ventricular tachycardia overnight 04/18/20-04/19/20 Replete magnesium Patient has LifeVest intact (6) Dyslipidemia Is this a current diagnosis for this admission?: Yes Plan: Continue simvastatin 80 mg p.o. daily at bedtime (7) Cirrhosis Qualifiers: Hepatic cirrhosis type: alcoholic cirrhosis Ascites presence: with ascites Qualified Code(s): K70.31 - Alcoholic cirrhosis of liver with ascites Is this a current diagnosis for this admission?: Yes Plan: Patient underwent successful paracentesis on 04/19/2020 to remove 5600 cc straw- colored fluid Serum ammonia elevated, lactulose dose increased as noted above Add ceftriaxone 1 g IV every 24 hours for SBP prophylaxis (8) COPD (chronic obstructive pulmonary disease) Qualifiers: Is this a current diagnosis for this admission?: Yes Plan: Patient's respiratory distress does not appear to be related to acute COPD exacerbation but rather CHF and his altered mental status 2/2 metabolic encephalopathy related to cirrhosis Meds as noted above Bronchodilator nebs as needed (9) Hyponatremia Is this a current diagnosis for this admission?: Yes Plan: Volume likely contributing Serum sodium improved today to 135 Diurese as noted above Continue 1200 cc fluid restriction Monitor (10) Anemia Is this a current diagnosis for this admission?: Yes Plan: H/H improved today No treatment indicated at this time Monitor (11) Leucocytosis Is this a current diagnosis for this admission?: Yes Plan: WBC now WNL Patient remains afebrile Patient started on empiric ceftriaxone for SBP prophylaxis Blood cultures from 04/20/2020 pending Continue to monitor off antibiotics at this time (12) Hypomagnesemia Is this a current diagnosis for this admission?: Yes Plan: Patient's magnesium remains low Replete Monitor - Time Time Spent with patient: 25-34 minutes Anticipated Discharge Disposition: Will need to determine based on clinical status Anticipated Discharge Timeframe: Unknown
[2020-04-21] MEDS: ENOXAPARIN SODIUM INJ 40 MG/0.4 ML DISP.SYRIN SUBCUT SCH (11:38)
[2020-04-21] MEDS: DOCUSATE SODIUM 100 MG CAPSULE PO SCH (11:39)
[2020-04-21] MEDS: MIDODRINE HCL 5 MG TABLET PO SCH ×2 (11:39→20:35)
[2020-04-21] MEDS: ASPIRIN 81 MG TABLET, ENT COATED PO SCH (11:39)
[2020-04-21] MEDS: FOLIC ACID 1 MG TABLET PO SCH (11:39)
[2020-04-21] MEDS: MAGNESIUM SULFATE/D5W 1 GM/100 ML RTUPB IV SCH (13:17)
[2020-04-21] MEDS: FLUTICASONE/VILANTEROL 200-25 MCG/DOSE IH SCH (13:18)
--- NOTE | 2020-04-21 13:27 | Progress Note ---
Provider Note Provider Note: CARDIOLOGY PROGRESS NOTE by Dr. Lorenza Sandoval on 04/21/2020 SUBJECTIVE: The patient continues to be short of breath. He has orthopnea but no PND. He denies any chest pain or discomfort. He continues to have cough and is also wheezing. He is bringing up or coughing up yellowish sputum. He does have leg edema. There is no firing of his LifeVest. There is no TIA CVA symptoms. PHYSICAL EXAMINATION: The patient appears to be chronically ill and malnourished and a frail build. Selected Entries 04/21/20 04/21/20 08:00 08:36 Temperature 97.5 F Temperature Axillary Source Pulse Rate 112 H Respiratory 16 Rate Blood Pressure 113/56 L 93/62 L Blood Pressure 72 Mean BP Location Right Arm BP Position Sitting O2 Sat by Pulse 97 Oximetry Oxygen Flow 12.00 Rate Oxygen Delivery PRB/NRB Method HEAD: Is atraumatic normocephalic. EYES: Pupils are equal round regular reactive to light accommodation. Extraocular movements are normal. There is no conjunctival pallor. There is no scleral icterus. EARS: Tympanic membranes are intact. External auditory canals are clear. NOSE: There is no deviated nasal septum. There is no inflammation nasal mucous membrane. MOUTH: Mucous membranes of the mouth are moist. Tongue is moist there is no ulcers. There is no bleeding from the gums THROAT: There is no redness of the oropharynx. There is no exudates. SKIN: There is no skin rashes. There is no skin lesions. There is no petechia or ecchymosis. NECK: Is supple there is mild JVD present. Carotids are equal there is no bruits. There is no lymphadenopathy. There is no goiter. There is no accessory muscle respiration use. Trachea central. LUNGS: There is diminished air entry prolonged expiration. There is bilateral scattered rhonchi and mild end expiratory wheezing. There are basal fine rales of CHF. On percussion there is hyperresonance. HEART: S1-S2 is heard. There is no S3 gallop. There is no S4 gallop. Systolic murmur left sternal border and the apex there is no rub. ABDOMEN: Soft abdomen is distended. Bowel sounds are increased. There is shifting dullness of ascites and also on percussion there is tympanic note. There is no definite hepatosplenomegaly. There is no ascites present. There is a reducible right inguinal hernia present there is no tender areas masses. EXTREMITIES: Femorals are diminished. There is no femoral bruits. Leg pulses are diminished. There is trace pedal edema bilaterally. There is no DVT or cellulitis. There is no calf tenderness. There is no cyanosis or clubbing. CURTAIN FITTER: The patient is conscious awake alert oriented x3 with no focal deficits. PSYCHIATRIC the patient judgment insight are intact her affect is normal. Patient's 24-hour intake is 100 ml. 24-hour output is 2900 ML. Labs- Entire Visit 04/17/20 04/17/20 04/17/20 07:05 07:05 07:05 WBC 7.5 RBC 4.16 L Hgb 10.8 L Hct 33.3 L MCV 80 MCH 25.9 L MCHC 32.4 RDW 17.6 H Plt Count 326 Lymph % (Auto) Not Reportable Cook % (Auto) Not Reportable Eos % (Auto) Not Reportable Baso % (Auto) Not Reportable Absolute Neuts (auto) Not Reportable Absolute Lymphs (auto) Not Reportable Absolute Monos (auto) Not Reportable Absolute Eos (auto) Not Reportable Absolute Basos (auto) Not Reportable Total Counted 100 Seg Neutrophils % Not Reportable Seg Neuts % (Manual) 54 Lymphocytes % (Manual) 21 Atypical Lymphs % 4 Monocytes % (Manual) 4 Eosinophils % (Manual) 14 H Basophils % (Manual) 2 Metamyelocytes % 1 Abs Neuts (Manual) 4.1 Abs Lymphs (Manual) 1.9 Abs Monocytes (Manual) 0.3 Absolute Eos (Manual) 1.1 H Abs Basophils (Manual) 0.2 Platelet Comment ADEQUATE Polychromasia SLIGHT Poikilocytosis 1+ Anisocytosis 1+ Microcytosis SLIGHT Ovalocytes 1+ Acanthocytes (Spur) SLIGHT Schistocytes SLIGHT PT INR Carbonic Acid HCO3/H2CO3 Ratio ABG pH ABG pCO2 ABG pO2 ABG HCO3 ABG Total CO2 ABG O2 Saturation ABG Base Excess FiO2 Sodium 130.0 L Potassium 3.3 L Chloride 94 L Carbon Dioxide 27 Anion Gap 9 BUN 19 Creatinine 1.12 Est GFR ( Amer) > 60 Est GFR (Non-Af Amer) Est GFR (MDRD) Non-Af > 60 Glucose 107 POC Glucose Calcium 7.9 L Phosphorus Magnesium 1.6 Total Bilirubin 0.8 Direct Bilirubin 0.1 Neonat Total Bilirubin Not Reportable Neonat Direct Bilirubin Not Reportable Neonat Indirect Bili Not Reportable AST 22 ALT 9 Alkaline Phosphatase 136 H Ammonia Creatine Kinase 45 L Troponin I 0.068 NT-Pro-B Natriuret Pep 73145 H Total Protein 6.6 Albumin 3.2 L EGFR Urine Color Urine Appearance Urine pH Ur Specific [place] Urine Protein Urine Glucose (UA) Urine Ketones Urine Blood Urine Nitrite Urine Bilirubin Urine Urobilinogen Ur Leukocyte Esterase Urine WBC (Auto) Urine RBC (Auto) U Hyaline Cast (Auto) Squamous Epi Cells Auto Urine Mucus (Auto) Urine Ascorbic Acid Digoxin SARS-CoV-2 (PCR) 04/17/20 04/17/20 04/17/20 07:05 07:05 17:28 WBC RBC Hgb Hct MCV MCH MCHC RDW Plt Count Lymph % (Auto) Cook % (Auto) Eos % (Auto) Baso % (Auto) Absolute Neuts (auto) Absolute Lymphs (auto) Absolute Monos (auto) Absolute Eos (auto) Absolute Basos (auto) Total Counted Seg Neutrophils % Seg Neuts % (Manual) Lymphocytes % (Manual) Atypical Lymphs % Monocytes % (Manual) Eosinophils % (Manual) Basophils % (Manual) Metamyelocytes % Abs Neuts (Manual) Abs Lymphs (Manual) Abs Monocytes (Manual) Absolute Eos (Manual) Abs Basophils (Manual) Platelet Comment Polychromasia Poikilocytosis Anisocytosis Microcytosis Ovalocytes Acanthocytes (Spur) Schistocytes PT 16.4 H INR 1.30 Carbonic Acid HCO3/H2CO3 Ratio ABG pH ABG pCO2 ABG pO2 ABG HCO3 ABG Total CO2 ABG O2 Saturation ABG Base Excess FiO2 Sodium Potassium Chloride Carbon Dioxide Anion Gap BUN Creatinine Est GFR ( Amer) Est GFR (Non-Af Amer) Est GFR (MDRD) Non-Af Glucose POC Glucose Calcium Phosphorus Magnesium Total Bilirubin Direct Bilirubin Neonat Total Bilirubin Neonat Direct Bilirubin Neonat Indirect Bili AST ALT Alkaline Phosphatase Ammonia Creatine Kinase Troponin I NT-Pro-B Natriuret Pep Total Protein Albumin EGFR Urine Color DARLEEN Urine Appearance CLEAR Urine pH 5.0 Ur Specific Lyons 1.018 Urine Protein NEGATIVE Urine Glucose (UA) NEGATIVE Urine Ketones NEGATIVE Urine Blood NEGATIVE Urine Nitrite NEGATIVE Urine Bilirubin NEGATIVE Urine Urobilinogen 4.0 H Ur Leukocyte Esterase NEGATIVE Urine WBC (Auto) 1 Urine RBC (Auto) 0 U Hyaline Cast (Auto) 1 Squamous Epi Cells Auto <1 Urine Mucus (Auto) RARE Urine Ascorbic Acid NEGATIVE Digoxin < 0.40 L SARS-CoV-2 (PCR) 04/17/20 04/18/20 04/18/20 21:14 05:59 05:59 WBC 8.6 RBC 4.47 Hgb 11.6 L Hct 35.7 L MCV 80 MCH 26.0 L MCHC 32.6 RDW 17.3 H Plt Count 271 Lymph % (Auto) 19.7 Cook % (Auto) 10.4 Eos % (Auto) 14.9 H Baso % (Auto) 2.4 H Absolute Neuts (auto) 4.5 Absolute Lymphs (auto) 1.7 Absolute Monos (auto) 0.9 Absolute Eos (auto) 1.3 H Absolute Basos (auto) 0.2 Total Counted Seg Neutrophils % 52.6 Seg Neuts % (Manual) Lymphocytes % (Manual) Atypical Lymphs % Monocytes % (Manual) Eosinophils % (Manual) Basophils % (Manual) Metamyelocytes % Abs Neuts (Manual) Abs Lymphs (Manual) Abs Monocytes (Manual) Absolute Eos (Manual) Abs Basophils (Manual) Platelet Comment Polychromasia Poikilocytosis Anisocytosis Microcytosis Ovalocytes Acanthocytes (Spur) Schistocytes PT INR Carbonic Acid HCO3/H2CO3 Ratio ABG pH ABG pCO2 ABG pO2 ABG HCO3 ABG Total CO2 ABG O2 Saturation ABG Base Excess FiO2 Sodium 130.9 L Potassium 4.0 Chloride 100 Carbon Dioxide 26 Anion Gap 5 BUN 19 Creatinine 0.90 Est GFR ( Amer) > 60 Est GFR (Non-Af Amer) Est GFR (MDRD) Non-Af > 60 Glucose 103 POC Glucose Calcium 7.3 L Phosphorus 4.1 Magnesium 1.5 L Total Bilirubin Direct Bilirubin Neonat Total Bilirubin Neonat Direct Bilirubin Neonat Indirect Bili AST ALT Alkaline Phosphatase Ammonia Creatine Kinase Troponin I NT-Pro-B Natriuret Pep Total Protein Albumin EGFR Urine Color Urine Appearance Urine pH Ur Specific [place] Urine Protein Urine Glucose (UA) Urine Ketones Urine Blood Urine Nitrite Urine Bilirubin Urine Urobilinogen Ur Leukocyte Esterase Urine WBC (Auto) Urine RBC (Auto) U Hyaline Cast (Auto) Squamous Epi Cells Auto Urine Mucus (Auto) Urine Ascorbic Acid Digoxin SARS-CoV-2 (PCR) 04/18/20 04/19/20 04/19/20 05:59 08:56 08:56 WBC 11.5 H RBC 4.97 Hgb 12.7 L Hct 39.6 MCV 80 MCH 25.5 L MCHC 32.0 RDW 17.2 H Plt Count 320 Lymph % (Auto) 10.8 L Cook % (Auto) 7.1 Eos % (Auto) 5.2 Baso % (Auto) 1.1 Absolute Neuts (auto) 8.7 H Absolute Lymphs (auto) 1.2 Absolute Monos (auto) 0.8 Absolute Eos (auto) 0.6 Absolute Basos (auto) 0.1 Total Counted Seg Neutrophils % 75.8 Seg Neuts % (Manual) Lymphocytes % (Manual) Atypical Lymphs % Monocytes % (Manual) Eosinophils % (Manual) Basophils % (Manual) Metamyelocytes % Abs Neuts (Manual) Abs Lymphs (Manual) Abs Monocytes (Manual) Absolute Eos (Manual) Abs Basophils (Manual) Platelet Comment Polychromasia Poikilocytosis Anisocytosis Microcytosis Ovalocytes Acanthocytes (Spur) Schistocytes PT INR Carbonic Acid HCO3/H2CO3 Ratio ABG pH ABG pCO2 ABG pO2 ABG HCO3 ABG Total CO2 ABG O2 Saturation ABG Base Excess FiO2 Sodium 132.3 L 133.0 L Potassium 4.1 4.2 Chloride 98 99 Carbon Dioxide 29 26 Anion Gap 5 8 BUN 20 23 H Creatinine 0.98 1.00 Est GFR ( Amer) > 60 > 60 Est GFR (Non-Af Amer) Est GFR (MDRD) Non-Af > 60 > 60 Glucose 114 H 112 H POC Glucose Calcium 7.6 L 7.9 L Phosphorus Magnesium Total Bilirubin Direct Bilirubin Neonat Total Bilirubin Neonat Direct Bilirubin Neonat Indirect Bili AST ALT Alkaline Phosphatase Ammonia Creatine Kinase Troponin I NT-Pro-B Natriuret Pep Total Protein Albumin EGFR Urine Color Urine Appearance Urine pH Ur Specific [place] Urine Protein Urine Glucose (UA) Urine Ketones Urine Blood Urine Nitrite Urine Bilirubin Urine Urobilinogen Ur Leukocyte Esterase Urine WBC (Auto) Urine RBC (Auto) U Hyaline Cast (Auto) Squamous Epi Cells Auto Urine Mucus (Auto) Urine Ascorbic Acid Digoxin SARS-CoV-2 (PCR) 04/19/20 04/19/20 04/20/20 08:56 08:56 06:09 WBC RBC Hgb Hct MCV MCH MCHC RDW Plt Count Lymph % (Auto) Cook % (Auto) Eos % (Auto) Baso % (Auto) Absolute Neuts (auto) Absolute Lymphs (auto) Absolute Monos (auto) Absolute Eos (auto) Absolute Basos (auto) Total Counted Seg Neutrophils % Seg Neuts % (Manual) Lymphocytes % (Manual) Atypical Lymphs % Monocytes % (Manual) Eosinophils % (Manual) Basophils % (Manual) Metamyelocytes % Abs Neuts (Manual) Abs Lymphs (Manual) Abs Monocytes (Manual) Absolute Eos (Manual) Abs Basophils (Manual) Platelet Comment Polychromasia Poikilocytosis Anisocytosis Microcytosis Ovalocytes Acanthocytes (Spur) Schistocytes PT INR Carbonic Acid HCO3/H2CO3 Ratio ABG pH ABG pCO2 ABG pO2 ABG HCO3 ABG Total CO2 ABG O2 Saturation ABG Base Excess FiO2 Sodium Potassium Chloride Carbon Dioxide Anion Gap BUN Creatinine Est GFR ( Amer) Est GFR (Non-Af Amer) Est GFR (MDRD) Non-Af Glucose POC Glucose Calcium Phosphorus Magnesium 1.5 L Total Bilirubin Direct Bilirubin Neonat Total Bilirubin Neonat Direct Bilirubin Neonat Indirect Bili AST ALT Alkaline Phosphatase Ammonia Creatine Kinase Troponin I NT-Pro-B Natriuret Pep 99804 H 75982 H Total Protein Albumin EGFR Urine Color Urine Appearance Urine pH Ur Specific [place] Urine Protein Urine Glucose (UA) Urine Ketones Urine Blood Urine Nitrite Urine Bilirubin Urine Urobilinogen Ur Leukocyte Esterase Urine WBC (Auto) Urine RBC (Auto) U Hyaline Cast (Auto) Squamous Epi Cells Auto Urine Mucus (Auto) Urine Ascorbic Acid Digoxin SARS-CoV-2 (PCR) 04/20/20 04/20/20 04/20/20 06:09 06:09 09:53 WBC 13.1 H RBC 5.18 Hgb 13.4 L Hct 41.3 MCV 80 MCH 25.9 L MCHC 32.5 RDW 17.4 H Plt Count 303 Lymph % (Auto) 7.6 L Cook % (Auto) 8.3 Eos % (Auto) 5.1 Baso % (Auto) 1.0 Absolute Neuts (auto) 10.3 H Absolute Lymphs (auto) 1.0 Absolute Monos (auto) 1.1 Absolute Eos (auto) 0.7 H Absolute Basos (auto) 0.1 Total Counted Seg Neutrophils % 78.0 Seg Neuts % (Manual) Lymphocytes % (Manual) Atypical Lymphs % Monocytes % (Manual) Eosinophils % (Manual) Basophils % (Manual) Metamyelocytes % Abs Neuts (Manual) Abs Lymphs (Manual) Abs Monocytes (Manual) Absolute Eos (Manual) Abs Basophils (Manual) Platelet Comment Polychromasia Poikilocytosis Anisocytosis Microcytosis Ovalocytes Acanthocytes (Spur) Schistocytes PT INR Carbonic Acid HCO3/H2CO3 Ratio ABG pH ABG pCO2 ABG pO2 ABG HCO3 ABG Total CO2 ABG O2 Saturation ABG Base Excess FiO2 Sodium Cancelled 132.9 L Potassium Cancelled 4.4 Chloride Cancelled 96 L Carbon Dioxide Cancelled 28 Anion Gap Cancelled 9 BUN Cancelled 25 H Creatinine Cancelled 0.95 Est GFR ( Amer) Cancelled > 60 Est GFR (Non-Af Amer) Cancelled Est GFR (MDRD) Non-Af Cancelled > 60 Glucose Cancelled 84 POC Glucose Calcium Cancelled 7.5 L Phosphorus Cancelled 3.9 Magnesium Cancelled 1.2 L* Total Bilirubin Cancelled 0.7 Direct Bilirubin Cancelled 0.1 Neonat Total Bilirubin Cancelled Not Reportable Neonat Direct Bilirubin Cancelled Not Reportable Neonat Indirect Bili Cancelled Not Reportable AST Cancelled 22 ALT Cancelled 9 Alkaline Phosphatase Cancelled 137 H Ammonia Creatine Kinase Troponin I NT-Pro-B Natriuret Pep Total Protein Cancelled 6.0 L Albumin Cancelled 2.5 L EGFR Cancelled Urine Color Urine Appearance Urine pH Ur Specific [place] Urine Protein Urine Glucose (UA) Urine Ketones Urine Blood Urine Nitrite Urine Bilirubin Urine Urobilinogen Ur Leukocyte Esterase Urine WBC (Auto) Urine RBC (Auto) U Hyaline Cast (Auto) Squamous Epi Cells Auto Urine Mucus (Auto) Urine Ascorbic Acid Digoxin SARS-CoV-2 (PCR) 04/20/20 04/20/20 04/20/20 12:10 13:25 15:49 WBC RBC Hgb Hct MCV MCH MCHC RDW Plt Count Lymph % (Auto) Cook % (Auto) Eos % (Auto) Baso % (Auto) Absolute Neuts (auto) Absolute Lymphs (auto) Absolute Monos (auto) Absolute Eos (auto) Absolute Basos (auto) Total Counted Seg Neutrophils % Seg Neuts % (Manual) Lymphocytes % (Manual) Atypical Lymphs % Monocytes % (Manual) Eosinophils % (Manual) Basophils % (Manual) Metamyelocytes % Abs Neuts (Manual) Abs Lymphs (Manual) Abs Monocytes (Manual) Absolute Eos (Manual) Abs Basophils (Manual) Platelet Comment Polychromasia Poikilocytosis Anisocytosis Microcytosis Ovalocytes Acanthocytes (Spur) Schistocytes PT INR Carbonic Acid 1.26 HCO3/H2CO3 Ratio 21:1 ABG pH 7.43 ABG pCO2 41.9 ABG pO2 51.0 L ABG HCO3 27.1 H ABG Total CO2 28.4 H ABG O2 Saturation 87.0 L ABG Base Excess 2.5 FiO2 2L Sodium Potassium Chloride Carbon Dioxide Anion Gap BUN Creatinine Est GFR ( Amer) Est GFR (Non-Af Amer) Est GFR (MDRD) Non-Af Glucose POC Glucose 83 Calcium Phosphorus Magnesium Total Bilirubin Direct Bilirubin Neonat Total Bilirubin Neonat Direct Bilirubin Neonat Indirect Bili AST ALT Alkaline Phosphatase Ammonia 127.9 H Creatine Kinase Troponin I NT-Pro-B Natriuret Pep Total Protein Albumin EGFR Urine Color Urine Appearance Urine pH Ur Specific [place] Urine Protein Urine Glucose (UA) Urine Ketones Urine Blood Urine Nitrite Urine Bilirubin Urine Urobilinogen Ur Leukocyte Esterase Urine WBC (Auto) Urine RBC (Auto) U Hyaline Cast (Auto) Squamous Epi Cells Auto Urine Mucus (Auto) Urine Ascorbic Acid Digoxin SARS-CoV-2 (PCR) 04/20/20 04/20/20 04/20/20 20:43 20:49 20:49 WBC 9.2 RBC 4.06 L Hgb 10.6 L D Hct 32.1 L MCV 79 L MCH 26.2 L MCHC 33.2 RDW 16.8 H Plt Count 223 Lymph % (Auto) Cook % (Auto) Eos % (Auto) Baso % (Auto) Absolute Neuts (auto) Absolute Lymphs (auto) Absolute Monos (auto) Absolute Eos (auto) Absolute Basos (auto) Total Counted Seg Neutrophils % Seg Neuts % (Manual) Lymphocytes % (Manual) Atypical Lymphs % Monocytes % (Manual) Eosinophils % (Manual) Basophils % (Manual) Metamyelocytes % Abs Neuts (Manual) Abs Lymphs (Manual) Abs Monocytes (Manual) Absolute Eos (Manual) Abs Basophils (Manual) Platelet Comment Polychromasia Poikilocytosis Anisocytosis Microcytosis Ovalocytes Acanthocytes (Spur) Schistocytes PT INR Carbonic Acid HCO3/H2CO3 Ratio ABG pH ABG pCO2 ABG pO2 ABG HCO3 ABG Total CO2 ABG O2 Saturation ABG Base Excess FiO2 Sodium 130.5 L Potassium 3.7 Chloride 95 L Carbon Dioxide 29 Anion Gap 7 BUN 29 H Creatinine 1.07 Est GFR ( Amer) > 60 Est GFR (Non-Af Amer) Est GFR (MDRD) Non-Af > 60 Glucose 92 POC Glucose 108 Calcium 7.4 L Phosphorus Magnesium 1.6 Total Bilirubin Direct Bilirubin Neonat Total Bilirubin Neonat Direct Bilirubin Neonat Indirect Bili AST ALT Alkaline Phosphatase Ammonia Creatine Kinase Troponin I NT-Pro-B Natriuret Pep Total Protein Albumin EGFR Urine Color Urine Appearance Urine pH Ur Specific [place] Urine Protein Urine Glucose (UA) Urine Ketones Urine Blood Urine Nitrite Urine Bilirubin Urine Urobilinogen Ur Leukocyte Esterase Urine WBC (Auto) Urine RBC (Auto) U Hyaline Cast (Auto) Squamous Epi Cells Auto Urine Mucus (Auto) Urine Ascorbic Acid Digoxin SARS-CoV-2 (PCR) 04/20/20 04/21/20 04/21/20 20:58 06:31 06:31 WBC 8.8 RBC 4.63 Hgb 12.1 L Hct 36.7 L MCV 79 L MCH 26.0 L MCHC 32.9 RDW 16.9 H Plt Count 208 Lymph % (Auto) 13.4 Cook % (Auto) 13.6 H Eos % (Auto) 3.9 Baso % (Auto) 0.9 Absolute Neuts (auto) 6.0 Absolute Lymphs (auto) 1.2 Absolute Monos (auto) 1.2 Absolute Eos (auto) 0.3 Absolute Basos (auto) 0.1 Total Counted Seg Neutrophils % 68.2 Seg Neuts % (Manual) Lymphocytes % (Manual) Atypical Lymphs % Monocytes % (Manual) Eosinophils % (Manual) Basophils % (Manual) Metamyelocytes % Abs Neuts (Manual) Abs Lymphs (Manual) Abs Monocytes (Manual) Absolute Eos (Manual) Abs Basophils (Manual) Platelet Comment Polychromasia Poikilocytosis Anisocytosis Microcytosis Ovalocytes Acanthocytes (Spur) Schistocytes PT INR Carbonic Acid 1.35 HCO3/H2CO3 Ratio 21:1 ABG pH 7.43 ABG pCO2 44.9 ABG pO2 135.3 H ABG HCO3 29.1 H ABG Total CO2 30.5 H ABG O2 Saturation 98.8 H ABG Base Excess 4.3 FiO2 13L Sodium Potassium Chloride Carbon Dioxide Anion Gap BUN Creatinine Est GFR ( Amer) Est GFR (Non-Af Amer) Est GFR (MDRD) Non-Af Glucose POC Glucose Calcium Phosphorus Magnesium Total Bilirubin Direct Bilirubin Neonat Total Bilirubin Neonat Direct Bilirubin Neonat Indirect Bili AST ALT Alkaline Phosphatase Ammonia Creatine Kinase Troponin I NT-Pro-B Natriuret Pep 35213 H Total Protein Albumin EGFR Urine Color Urine Appearance Urine pH Ur Specific [place] Urine Protein Urine Glucose (UA) Urine Ketones Urine Blood Urine Nitrite Urine Bilirubin Urine Urobilinogen Ur Leukocyte Esterase Urine WBC (Auto) Urine RBC (Auto) U Hyaline Cast (Auto) Squamous Epi Cells Auto Urine Mucus (Auto) Urine Ascorbic Acid Digoxin SARS-CoV-2 (PCR) 04/21/20 04/21/20 04/21/20 06:31 08:37 11:49 WBC RBC Hgb Hct MCV MCH MCHC RDW Plt Count Lymph % (Auto) Cook % (Auto) Eos % (Auto) Baso % (Auto) Absolute Neuts (auto) Absolute Lymphs (auto) Absolute Monos (auto) Absolute Eos (auto) Absolute Basos (auto) Total Counted Seg Neutrophils % Seg Neuts % (Manual) Lymphocytes % (Manual) Atypical Lymphs % Monocytes % (Manual) Eosinophils % (Manual) Basophils % (Manual) Metamyelocytes % Abs Neuts (Manual) Abs Lymphs (Manual) Abs Monocytes (Manual) Absolute Eos (Manual) Abs Basophils (Manual) Platelet Comment Polychromasia Poikilocytosis Anisocytosis Microcytosis Ovalocytes Acanthocytes (Spur) Schistocytes PT INR Carbonic Acid HCO3/H2CO3 Ratio ABG pH ABG pCO2 ABG pO2 ABG HCO3 ABG Total CO2 ABG O2 Saturation ABG Base Excess FiO2 Sodium 135.1 L Potassium 3.6 Chloride 96 L Carbon Dioxide 30 Anion Gap 9 BUN 30 H Creatinine 0.86 Est GFR ( Amer) > 60 Est GFR (Non-Af Amer) Est GFR (MDRD) Non-Af > 60 Glucose 103 POC Glucose 167 H 112 H Calcium 7.6 L Phosphorus Magnesium 1.5 L Total Bilirubin 0.8 Direct Bilirubin 0.1 Neonat Total Bilirubin Not Reportable Neonat Direct Bilirubin Not Reportable Neonat Indirect Bili Not Reportable AST 27 ALT 10 Alkaline Phosphatase 137 H Ammonia Creatine Kinase Troponin I NT-Pro-B Natriuret Pep Total Protein 6.0 L Albumin 2.5 L EGFR Urine Color Urine Appearance Urine pH Ur Specific [place] Urine Protein Urine Glucose (UA) Urine Ketones Urine Blood Urine Nitrite Urine Bilirubin Urine Urobilinogen Ur Leukocyte Esterase Urine WBC (Auto) Urine RBC (Auto) U Hyaline Cast (Auto) Squamous Epi Cells Auto Urine Mucus (Auto) Urine Ascorbic Acid Digoxin SARS-CoV-2 (PCR) Paracentesis Ultrasound 04/19/20 00:00 IMPRESSION: SUCCESSFUL ULTRASOUND GUIDED PARACENTESIS. Chest X-Ray 04/20/20 00:00 IMPRESSION: Increasing vascular congestion. IMPRESSION/RECOMMENDATION: 1. Acute on chronic respiratory failure: This is secondary to acute on chronic respiratory failure acute exacerbation of COPD and noncompliance. 2. COPD with acute exacerbation: Continue anti-COPD medication steroids and antibiotics. 3. 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 Continue current diuretics and and Toprol-XL. Continue Entresto. Continue midodrine. Patient is high risk for sudden and says a LifeVest on. No firing of the LifeVest. 4. Supraventricular tachycardia: Continue with his oxygen. Continues beta- sarina. 5. Dilated cardiomyopathy and also ischemic cardiomyopathy with severely reduced LV ejection fraction. 6. Possible pneumonia: Continue antibiotics 7. Cirrhosis of the liver with ascites. The plan is to get a ultrasound-guided thoracentesis tomorrow. 9. Right inguinal hernia: We will see if surgery can repair the patient's hernia once acute COPD and acute on chronic CHF are controlled 9. Coronary artery disease: No anginal symptoms. Patient has ischemic and dilated cardiomyopathy 10. Ongoing tobacco abuse: Tobacco cessation counseling given 11. Hypomagnesemia: Replace magnesium 12. Noncompliance with medication, smoking, medical advice and medical instructions, and diet. Education reviewed. Medical regimen and management plan discussed with RN provider on the case. Medical decision making is of high complexity. 40 minutes spent as patient more than 50% of time spent in direct patient care. Will follow.
[2020-04-21] MEDS ORDERED: LIDOCAINE 1% INJ-PF (10 MG/ML) 30 ML SDV ONE (13:41)
--- NOTE | 2020-04-21 14:29 | Progress Note ---
Provider Note Provider Note: Patient will transition to comfort care
[2020-04-21] MEDS ORDERED: LORAZEPAM INJ 2 MG/1 ML VIAL IV PRN (14:34)
[2020-04-21] MEDS ORDERED: MORPHINE SULFATE 10 MG/ML INJ IV PRN (14:34)
[2020-04-21] MEDS: MORPHINE SULFATE 10 MG/ML INJ IV PRN (15:51)
[2020-04-21] MEDS: LORAZEPAM INJ 2 MG/1 ML VIAL IV PRN (15:52)
[2020-04-21] MEDS ORDERED: MUPIROCIN 2% OINTMENT 22 GM TP SCH (18:00)
[2020-04-21] MEDS: DIGOXIN INJ 0.5 MG/2 ML AMPULE IV SCH (20:35)
[2020-04-22] MEDS: MORPHINE SULFATE 10 MG/ML INJ IV PRN ×2 (05:25→20:22)
--- NOTE | 2020-04-22 14:07 | Progress Note ---
Provider Note Provider Note: CARDIOLOGY PROGRESS NOTE by Dr. Lorenza Sandoval on 04/22/2020. SUBJECTIVE: The patient is more awake than yesterday although still remains drowsy. He states that he feels fine. In view of the patient waking up and his blood pressure being now normal without any pressors we will restart the patient's medications. This is after discussions with patient's daughter and the patient's comfort measures orders were rescinded and the patient back to DNR. As per the daughter's wishes and the patient's wishes will not place the patient back on LifeVest. The patient remains in sinus rhythm/sinus tachycardia. There is no ventricular arrhythmias seen on the monitor. He states his shortness of breath is improved he has no PND orthopnea. He has only trace leg edema. PHYSICAL EXAMINATION: The patient is a frail build and appears to be chronically ill and malnourished. Selected Entries 04/22/20 12:00 Temperature 97.3 F Temperature Oral Source Pulse Rate 105 H Respiratory 19 Rate Blood Pressure 138/80 H [Right Upper Arm] Blood Pressure 99 Mean [Right Upper Arm] Blood Pressure Sitting Position [Right Upper Arm] O2 Sat by Pulse 92 Oximetry Oxygen Delivery Room Air Method ( includes room air) HEAD: Is atraumatic normocephalic. EYES: Pupils are equal round regular reactive to light accommodation. Extraocular movements are normal. There is no conjunctival pallor. There is no scleral icterus. EARS: Tympanic membranes are intact. External auditory canals are clear. NOSE: There is no deviated nasal septum. There is no inflammation nasal mucous membrane. MOUTH: Mucous membranes of the mouth are moist. Tongue is moist there is no ulcers. There is no bleeding from the gums THROAT: There is no redness of the oropharynx. There is no exudates. SKIN: There is no skin rashes. There is no skin lesions. There is no petechia or ecchymosis. NECK: Is supple there is mild JVD present. Carotids are equal there is no bruits. There is no lymphadenopathy. There is no goiter. There is no accessory muscle respiration use. Trachea central. LUNGS: There is diminished air entry prolonged expiration. There is bilateral scattered rhonchi and mild end expiratory wheezing. There are basal fine rales of CHF. On percussion there is hyperresonance. HEART: S1-S2 is heard. There is no S3 gallop. There is no S4 gallop. Systolic murmur left sternal border and the apex there is no rub. ABDOMEN: Soft abdomen is distended. Bowel sounds are increased. There is shifting dullness of ascites and also on percussion there is tympanic note. There is no definite hepatosplenomegaly. There is no ascites present. There is a reducible right inguinal hernia present there is no tender areas masses. EXTREMITIES: Femorals are diminished. There is no femoral bruits. Leg pulses are diminished. There is trace pedal edema bilaterally. There is no DVT or cellulitis. There is no calf tenderness. There is no cyanosis or clubbing. 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 But moves all 4 extremities. PSYCHIATRIC: Psychiatric exam not done due to patient mental status Paracentesis Ultrasound 04/19/20 00:00 IMPRESSION: SUCCESSFUL ULTRASOUND GUIDED PARACENTESIS. Chest X-Ray 04/20/20 00:00 IMPRESSION: Increasing vascular congestion. IMPRESSION/RECOMMENDATION: 1. Altered mental status most likely secondary to narcotic overdose. The patient did perk up a little after he was given Narcan 0.4 mg. Intravenously. Await ABGs on the patient. 2. Hypotension: We will get a central line placed and transfer the patient to the telemetry unit so that we can start the patient on dopamine. The increased dose of mid midodrine has not helped. Hence due to low blood pressure could not start the patient on meaningful doses of afterload reduction and beta blockers. 3. Acute on chronic respiratory failure: This is secondary to acute on chronic respiratory failure acute exacerbation of COPD and noncompliance. 4. COPD with acute exacerbation: Continue anti-COPD medication steroids and antibiotics. 5. 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 Continue current diuretics and and Toprol-XL. Continue Entresto. Continue midodrine. Patient is high risk for sudden and says a LifeVest on. No firing of the LifeVest. 5. Supraventricular tachycardia: Continue with his oxygen. Continues beta- sarina. 6. Dilated cardiomyopathy and also ischemic cardiomyopathy with severely reduced LV ejection fraction. 7. Possible pneumonia: Continue antibiotics 8. Cirrhosis of the liver with ascites. The patient had paracentesis and had fluid removed from his abdomen. 9. Right inguinal hernia: We will see if surgery can repair the patient's hernia once acute COPD and acute on chronic CHF are controlled 10. Coronary artery disease: No anginal symptoms. Patient has ischemic and dilated cardiomyopathy 11. Ongoing tobacco abuse: Tobacco cessation counseling given 12. Hypomagnesemia: Replace magnesium Medications reviewed. Medications restarted. Medical decision making is of moderate complexity. Discussed with the hospitalist about the conversation I had with the patient's daughter. The patient will be DNR. We will not place the patient on a life jacket. We will again we discussed with the patient tomorrow to if he really wants the lifejacket to be discontinued. Medical decision making is a moderate complexity. 40 minutes spent on this patient more than 50% time spent in direct patient care. Will follow.
--- NOTE | 2020-04-22 15:05 | PDOC PROGRESS REPORT ---
Subjective Progress Note for:: 04/22/20 Subjective:: Patient much more alert today. When asked how he is doing he states "I feel better today". Reason For Visit: ATRIL FIBRILLATION WITH RVR, ACUTE SYSTOLIC CHF Physical Exam Vital Signs: Temp Pulse Resp BP Pulse Ox 97.3 F 105 H 19 138/80 H 92 04/22/20 12:00 04/22/20 12:00 04/22/20 12:00 04/22/20 12:00 04/22/20 12:00 Intake & Output 04/21/20 04/22/20 04/23/20 06:59 06:59 06:59 Intake Total 100 Output Total 2900 Balance -2800 Weight 70.7 kg General appearance: PRESENT: no acute distress, cooperative Head exam: PRESENT: atraumatic, normocephalic Eye exam: PRESENT: conjunctiva pink Mouth exam: PRESENT: moist, tongue midline Neck exam: PRESENT: JVD - ABD to 4 cm above clavicle Respiratory exam: PRESENT: decreased breath sounds - Air entry diminished at bases bilaterally, prolonged expiratory phas, rales - Basilar, symmetrical, unlabored, wheezes. ABSENT: accessory muscle use, retraction Cardiovascular exam: PRESENT: irregular rhythm, +S1, +S2 Vascular exam: PRESENT: normal capillary refill GI/Abdominal exam: PRESENT: distended, hypoactive bowel sounds, soft. ABSENT: guarding, rebound, tenderness Rectal exam: PRESENT: deferred Extremities exam: PRESENT: pedal edema, +2 edema - 2 to 3 mm pretibial edema bilaterally. ABSENT: calf tenderness Neurological exam: PRESENT: alert, awake, oriented to person, oriented to place Psychiatric exam: ABSENT: agitated, anxious Skin exam: PRESENT: dry, normal color, warm Results Laboratory Results: 04/21/20 06:31 04/21/20 06:31 04/17/20 04/17/20 04/19/20 07:05 07:05 08:56 Creatine Kinase 45 L Troponin I 0.068 NT-Pro-B Natriuret Pep 91257 H 12432 H 04/20/20 04/21/20 06:09 06:31 Creatine Kinase Troponin I NT-Pro-B Natriuret Pep 95626 H 33424 H Impressions: Paracentesis Ultrasound 04/19/20 00:00 IMPRESSION: SUCCESSFUL ULTRASOUND GUIDED PARACENTESIS. Chest X-Ray 04/20/20 00:00 IMPRESSION: Increasing vascular congestion. Assessment and Plan - Diagnosis (1) AMS (altered mental status) Is this a current diagnosis for this admission?: Yes Plan: Encephalopathy improved today Ammonia level 127.9 on 04/20/20 Patient was made comfort care on 04/21/2020 and all medications were discontinued however he was transitioned back to DNR with comfort care orders rescinded today Restart lactulose 20 g p.o. every 8 hours Keep patient in IMCU (2) Acute and chronic respiratory failure Qualifiers: Is this a current diagnosis for this admission?: Yes Plan: Multifactorial including CHF/ascites/COPD Patient now on room air with SPO2 of 92% Restart fluticasone/vilanterol 100/25 mcg 1 puff daily Restart albuterol/ipratropium nebs every 2 hours as needed (3) CHF (congestive heart failure) Qualifiers: Heart failure type: unspecified Heart failure chronicity: acute on chronic Qualified Code(s): I50.9 - Heart failure, unspecified Is this a current diagnosis for this admission?: Yes Plan: Cardiology input appreciated Patient continues to appear volume overloaded Restart furosemide 20 mg p.o. 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 every 12 hours restarted by cardiology Digoxin stopped when patient became comfort care and was not resumed by cardiology (5) NSVT (nonsustained ventricular tachycardia) Is this a current diagnosis for this admission?: Yes Plan: Patient had 22 beat run of nonsustained ventricular tachycardia overnight 04/18/20-04/19/20 Patient has LifeVest (6) Dyslipidemia Is this a current diagnosis for this admission?: Yes Plan: Simvastatin was stopped when patient became comfort care not restarted by cardiology, defer to them (7) Cirrhosis Qualifiers: Hepatic cirrhosis type: alcoholic cirrhosis Ascites presence: with ascites Qualified Code(s): K70.31 - Alcoholic cirrhosis of liver with ascites Is this a current diagnosis for this admission?: Yes Plan: Patient underwent successful paracentesis on 04/19/2020 to remove 5600 cc straw- colored fluid Restart ceftriaxone 1 g IV every 24 hours for SBP prophylaxis (8) COPD (chronic obstructive pulmonary disease) Qualifiers: Is this a current diagnosis for this admission?: Yes Plan: Meds as noted above Bronchodilator nebs as needed (9) Hyponatremia Is this a current diagnosis for this admission?: Yes Plan: Volume likely contributing Patient did not receive labs this a.m. 10/16 being comfort measures, now that comfort measures have been rescinded we will check labs in a.m. Diurese as noted above Continue 1200 cc fluid restriction Monitor (10) Anemia Is this a current diagnosis for this admission?: Yes Plan: No treatment indicated at this time Monitor (11) Leucocytosis Is this a current diagnosis for this admission?: Yes Plan: Recheck CBC in a.m. Patient remains afebrile Patient started on empiric ceftriaxone for SBP prophylaxis Blood cultures from 04/20/2020 NG at 48 hours (12) Hypomagnesemia Is this a current diagnosis for this admission?: Yes Plan: Recheck serum magnesium in a.m. - Time Time Spent with patient: 25-34 minutes Anticipated Discharge Disposition: Unable to determine at this time Anticipated Discharge Timeframe: Unable to determine at this time
[2020-04-22] MEDS: FUROSEMIDE 20 MG TABLET PO SCH (17:28)
[2020-04-22] MEDS: LACTULOSE SYRUP 20 GM/30 ML UDCUP PO SCH ×2 (17:40→22:51)
[2020-04-22] MEDS: FLUTICASONE/VILANTEROL 100-25 MCG/DOSE IH SCH (17:41)
[2020-04-22] MEDS: CEFTRIAXONE 1 GM/D5W RTU 1 GM/50 ML RTUPB IV SCH (17:43)
[2020-04-22] MEDS: IPRATROPIUM/ALBUTEROL 0.5-2.5 MG/3 ML AMPUL NEB PRN (20:44)
[2020-04-22] MEDS: LORAZEPAM INJ 2 MG/1 ML VIAL IV PRN (22:26)
[2020-04-22] MEDS: LOSARTAN POTASSIUM 25 MG TABLET PO SCH (22:52)
[2020-04-22] MEDS: METOPROLOL SUCCINATE 25 MG TAB.SR.24H PO SCH (22:52)
[2020-04-23] MEDS: LACTULOSE SYRUP 20 GM/30 ML UDCUP PO SCH ×3 (06:09→22:11)
[2020-04-23 07:10] LABS: ABSOLUTE BASOPHILS # (AUTO) 0.1 10^3/uL (0.0-0.2); ABSOLUTE EOSINOPHILS # (AUTO) 0.5 10^3/uL (0.0-0.6); ABSOLUTE LYMPHOCYTES (AUTO) 0.9 10^3/uL (0.5-4.7); ABSOLUTE MONOCYTES (AUTO) 0.6 10^3/uL (0.1-1.4); HEMATOCRIT 40.1 % (37.9-51.0); MEAN CORPUSCULAR HEMOGLOBIN 25.9 pg (27.0-33.4); MEAN CORPUSCULAR HGB CONC 32.3 g/dL (32.0-36.0); MEAN CORPUSCULAR VOLUME 80 fl (80-97); MONOCYTES % (AUTO) 9.8 % (3-13); PLATELET COUNT 235 10^3/uL (150-450); RED BLOOD COUNT 5.01 10^6/uL (4.35-5.55); RED CELL DISTRIBUTION WIDTH 17.2 % (11.5-14.0); SEGMENTED NEUTROPHILS % (AUTO) 66.2 % (42-78); TOTAL CELLS COUNTED % (AUTO) 100 %
[2020-04-23 07:35] LABS: ALBUMIN 3.2 g/dL (3.5-5.0); ALKALINE PHOSPHATASE 181 U/L (38-126); ANION GAP 9 (5-19); ASPARTATE AMINO TRANSFERASE 26 U/L (17-59); BILIRUBIN,DIRECT 0.2 mg/dL (0.0-0.4); BLOOD UREA NITROGEN 30 mg/dL (7-20); CALCIUM 8.3 mg/dL (8.4-10.2); CARBON DIOXIDE 30 mmol/L (22-30); CHLORIDE 98 mmol/L (98-107); GLUCOSE 104 mg/dL (75-110); POTASSIUM 3.5 mmol/L (3.6-5.0); TOTAL PROTEIN 7.1 g/dL (6.3-8.2)
[2020-04-23] MEDS: FLUTICASONE/VILANTEROL 100-25 MCG/DOSE IH SCH (10:08)
[2020-04-23] MEDS: POTASSI CL 20 MEQ/50 ML RIDER 20 MEQ/50 ML RTUPB IV SCH ×2 (10:08→13:03)
[2020-04-23] MEDS: LOSARTAN POTASSIUM 25 MG TABLET PO SCH ×2 (10:09→22:11)
[2020-04-23] MEDS: FUROSEMIDE 20 MG TABLET PO SCH ×2 (10:09→17:15)
[2020-04-23] MEDS: CEFTRIAXONE 1 GM/D5W RTU 1 GM/50 ML RTUPB IV SCH (10:09)
[2020-04-23] MEDS: METOPROLOL SUCCINATE 25 MG TAB.SR.24H PO SCH ×2 (10:10→22:11)
[2020-04-23] MEDS: MORPHINE SULFATE 10 MG/ML INJ IV PRN ×2 (10:15→17:29)
--- NOTE | 2020-04-23 15:12 | Progress Note ---
Provider Note Provider Note: CARDIOLOGY PROGRESS NOTE by Dr. Lorenza Sandoval on 04/23/2020. OBJECTIVE: The patient is more interactive today. Although is drowsy is more alert than what he was yesterday. He denies any chest pain or shortness of breath. He lying flat in bed. Hence there is no orthopnea. There is no PND. His leg edema is only trace. The nurses say that he demands to eat and every time he eats he throws up. There is no atrial events arrhythmias seen on the monitor. There is no recurrence of SVT. PHYSICAL EXAMINATION: The patient is a frail build and appears to be malnourished and chronically ill. Selected Entries 04/23/20 04/23/20 03:55 08:12 Temperature 97.4 F Pulse Rate 65 Respiratory 16 Rate Blood Pressure 126/71 H Blood Pressure 89 Mean BP Location Left Arm BP Position Sitting O2 Sat by Pulse 92 Oximetry Oxygen Flow 2.00 Rate Oxygen Delivery Nasal Cannula Method HEAD: Is atraumatic normocephalic. EYES: Pupils are equal round regular reactive to light accommodation. Extraocular movements are normal. There is no conjunctival pallor. There is no scleral icterus. EARS: Tympanic membranes are intact. External auditory canals are clear. NOSE: There is no deviated nasal septum. There is no inflammation nasal mucous membrane. MOUTH: Mucous membranes of the mouth are moist. Tongue is moist there is no ulcers. There is no bleeding from the gums THROAT: There is no redness of the oropharynx. There is no exudates. SKIN: There is no skin rashes. There is no skin lesions. There is no petechia or ecchymosis. NECK: Is supple there is mild JVD present. Carotids are equal there is no bruits. There is no lymphadenopathy. There is no goiter. There is no accessory muscle respiration use. Trachea central. LUNGS: There is diminished air entry prolonged expiration. There is bilateral scattered rhonchi and mild end expiratory wheezing. There are basal fine rales of CHF. On percussion there is hyperresonance. HEART: S1-S2 is heard. There is no S3 gallop. There is no S4 gallop. Systolic murmur left sternal border and the apex there is no rub. ABDOMEN: Soft abdomen is distended. Bowel sounds are increased. There is shifting dullness of ascites and also on percussion there is tympanic note. There is no definite hepatosplenomegaly. There is no ascites present. There is a reducible right inguinal hernia present there is no tender areas masses. EXTREMITIES: Femorals are diminished. There is no femoral bruits. Leg pulses are diminished. There is trace pedal edema bilaterally. There is no DVT or cellulitis. There is no calf tenderness. There is no cyanosis or clubbing. 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 No focal deficits. PSYCHIATRIC: The patient does not appear to be agitated or anxious. Labs- All tests 24 hr 04/23/20 04/23/20 04/23/20 06:45 06:45 06:45 WBC 6.0 RBC 5.01 Hgb 13.0 L Hct 40.1 MCV 80 MCH 25.9 L MCHC 32.3 RDW 17.2 H Plt Count 235 Lymph % (Auto) 15.0 [place] % (Auto) 9.8 Eos % (Auto) 8.0 H Baso % (Auto) 1.0 Absolute Neuts (auto) 4.0 Absolute Lymphs (auto) 0.9 Absolute Monos (auto) 0.6 Absolute Eos (auto) 0.5 Absolute Basos (auto) 0.1 Seg Neutrophils % 66.2 Sodium 137.3 Potassium 3.5 L Chloride 98 Carbon Dioxide 30 Anion Gap 9 BUN 30 H Creatinine 0.84 Est GFR ( Amer) > 60 Est GFR (MDRD) Non-Af > 60 Glucose 104 Calcium 8.3 L Magnesium 1.6 Total Bilirubin 1.0 Direct Bilirubin 0.2 Neonat Total Bilirubin Not Reportable Neonat Direct Bilirubin Not Reportable Neonat Indirect Bili Not Reportable AST 26 ALT 11 Alkaline Phosphatase 181 H Ammonia 15.5 Total Protein 7.1 Albumin 3.2 L Paracentesis Ultrasound 04/19/20 00:00 IMPRESSION: SUCCESSFUL ULTRASOUND GUIDED PARACENTESIS. Chest X-Ray 04/20/20 00:00 IMPRESSION: Increasing vascular congestion. IMPRESSION/RECOMMENDATION: 1. Altered mental status most likely secondary to narcotic overdose, and also the main part being hepatic encephalopathy. The patient's ammonia level has come down now.. The patient is more awake today and. 2. Hypotension: We will get a central line placed and transfer the patient to the telemetry unit so that we can start the patient on dopamine. The increased dose of mid midodrine has not helped. Hence due to low blood pressure could not start the patient on meaningful doses of afterload reduction and beta blockers. 3. Acute on chronic respiratory failure: This is secondary to acute on chronic respiratory failure acute exacerbation of COPD and noncompliance. 4. COPD with acute exacerbation: Continue anti-COPD medication steroids and antibiotics. 5. 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 Continue current diuretics and and Toprol-XL. Continue Entresto. Continue midodrine. Patient is high risk for sudden and says a LifeVest on. No firing of the LifeVest. 5. Supraventricular tachycardia: Continue with his oxygen. Continues beta- sarina. 6. Dilated cardiomyopathy and also ischemic cardiomyopathy with severely red uced LV ejection fraction. 7. Possible pneumonia: Continue antibiotics 8. Cirrhosis of the liver with ascites. The patient had paracentesis and had fluid removed from his abdomen. 9. Right inguinal hernia: We will see if surgery can repair the patient's hernia once acute COPD and acute on chronic CHF are controlled 10. Coronary artery disease: No anginal symptoms. Patient has ischemic and di lated cardiomyopathy 11. Ongoing tobacco abuse: Tobacco cessation counseling given. Medications reviewed. Medical regimen and management plan discussed with attending provider on the case. Medical decision making is of moderate complexity. 40 minutes spent as patient more than 50% time spent in direct patient care. Will follow.
--- NOTE | 2020-04-23 18:03 | PDOC PROGRESS REPORT ---
Subjective Progress Note for:: 04/23/20 Subjective:: Patient interactive today. When asked how he is doing he states "okay". Denies pain and SOB Reason For Visit: ATRIL FIBRILLATION WITH RVR, ACUTE SYSTOLIC CHF Physical Exam Vital Signs: Temp Pulse Resp BP Pulse Ox 97.4 F 102 H 16 126/71 H 96 04/23/20 08:12 04/23/20 11:47 04/23/20 11:47 04/23/20 08:12 04/23/20 11:47 Intake & Output 04/22/20 04/23/20 04/24/20 06:59 06:59 06:59 Intake Total 614 372 Output Total 875 Balance -261 372 Weight 71 kg 71 kg General appearance: PRESENT: no acute distress, cooperative Head exam: PRESENT: atraumatic, normocephalic Eye exam: PRESENT: conjunctiva pink Mouth exam: PRESENT: moist, tongue midline Neck exam: ABSENT: JVD Respiratory exam: PRESENT: decreased breath sounds - Entry diminished at bases bilaterally, prolonged expiratory phas, symmetrical, unlabored, other - Breath sounds coarse. ABSENT: accessory muscle use, crackles, retraction, rhonchi, wheezes Cardiovascular exam: PRESENT: RRR, +S1, +S2, other Vascular exam: PRESENT: normal capillary refill GI/Abdominal exam: PRESENT: diminished bowel sounds, distended, firm, hypoactive bowel sounds. ABSENT: guarding, rebound, tenderness Rectal exam: PRESENT: deferred Extremities exam: PRESENT: pedal edema, +1 edema. ABSENT: calf tenderness Neurological exam: PRESENT: alert, awake, oriented to person, oriented to place, oriented to situation Psychiatric exam: PRESENT: depressed. ABSENT: agitated, anxious Skin exam: PRESENT: dry, normal color, warm Results Laboratory Results: 04/23/20 06:45 04/23/20 06:45 04/23/20 04/23/20 04/23/20 06:45 06:45 06:45 WBC 6.0 RBC 5.01 Hgb 13.0 L Hct 40.1 MCV 80 MCH 25.9 L MCHC 32.3 RDW 17.2 H Plt Count 235 Seg Neutrophils % 66.2 Sodium 137.3 Potassium 3.5 L Chloride 98 Carbon Dioxide 30 Anion Gap 9 BUN 30 H Creatinine 0.84 Est GFR ( Amer) > 60 Glucose 104 Calcium 8.3 L Magnesium 1.6 Total Bilirubin 1.0 AST 26 Alkaline Phosphatase 181 H Ammonia 15.5 Total Protein 7.1 Albumin 3.2 L 04/17/20 04/17/20 04/19/20 07:05 07:05 08:56 Creatine Kinase 45 L Troponin I 0.068 NT-Pro-B Natriuret Pep 58689 H 91568 H 04/20/20 04/21/20 06:09 06:31 Creatine Kinase Troponin I NT-Pro-B Natriuret Pep 31651 H 78516 H Impressions: Paracentesis Ultrasound 04/19/20 00:00 IMPRESSION: SUCCESSFUL ULTRASOUND GUIDED PARACENTESIS. Chest X-Ray 04/20/20 00:00 IMPRESSION: Increasing vascular congestion. Assessment and Plan - Diagnosis (1) AMS (altered mental status) Is this a current diagnosis for this admission?: Yes Plan: Encephalopathy improved again today Ammonia level 127.9 on 04/20/20, down to 15.5 today -this does not seem possible given the fact that the patient went for almost 24 hours without lactulose Patient was made comfort care on 04/21/2020 and all medications were discontinued however he was transitioned back to DNR with comfort care orders rescinded on 04/22/2020 Decrease lactulose to 10 g p.o. every 8 hours Keep patient in IMCU (2) Acute and chronic respiratory failure Qualifiers: Is this a current diagnosis for this admission?: Yes Plan: Multifactorial including CHF/ascites/COPD Supplemental oxygen PRN Continue fluticasone/vilanterol 100/25 mcg 1 puff daily Continue albuterol/ipratropium nebs every 2 hours as needed (3) CHF (congestive heart failure) Qualifiers: Heart failure type: unspecified Heart failure chronicity: acute on chronic Qualified Code(s): I50.9 - Heart failure, unspecified Is this a current diagnosis for this admission?: Yes Plan: Cardiology input appreciated Patient continues to appear volume overloaded I/O - 261 Weight up 0.3 kg since 04/21/2020 down 3.8 kg since admission Continue furosemide 20 mg p.o. 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 every 12 hours Digoxin stopped when patient became comfort care and was not resumed by cardiology (5) NSVT (nonsustained ventricular tachycardia) Is this a current diagnosis for this admission?: Yes Plan: Patient had 22 beat run of nonsustained ventricular tachycardia overnight 04/18/20-04/19/20 Does not wish to have LifeVest replaced (6) Dyslipidemia Is this a current diagnosis for this admission?: Yes Plan: Simvastatin was stopped when patient became comfort care not restarted by cardiology, defer (7) Cirrhosis Qualifiers: Hepatic cirrhosis type: alcoholic cirrhosis Ascites presence: with ascites Qualified Code(s): K70.31 - Alcoholic cirrhosis of liver with ascites Is this a current diagnosis for this admission?: Yes Plan: Patient underwent successful paracentesis on 04/19/2020 to remove 5600 cc straw- colored fluid Abdomen is becoming more distended, patient asked about repeat paracentesis and he states that if he needs one he is amenable to this Patient may need paracentesis soon Continue ceftriaxone 1 g IV every 24 hours for SBP prophylaxis (8) COPD (chronic obstructive pulmonary disease) Qualifiers: Is this a current diagnosis for this admission?: Yes Plan: Meds as noted above Bronchodilator nebs as needed (9) Hyponatremia Is this a current diagnosis for this admission?: Yes Plan: Resolved Diurese as noted above Continue 1200 cc fluid restriction Monitor (10) Anemia Is this a current diagnosis for this admission?: Yes Plan: No treatment indicated at this time Monitor periodically (11) Leucocytosis Is this a current diagnosis for this admission?: Yes Plan: Resolved Patient remains afebrile Patient started on empiric ceftriaxone for SBP prophylaxis Blood cultures from 04/20/2020 NG at 72 hours (12) Hypomagnesemia Is this a current diagnosis for this admission?: Yes Plan: Magnesium WNL this a.m. Recheck in morning - Time Time Spent with patient: 15-24 minutes Medications reviewed and adjusted accordingly: Yes Anticipated Discharge Disposition: To be determined Anticipated Discharge Timeframe: To be determined
[2020-04-23] MEDS: POTASSIUM CHLORIDE 10 MEQ TABLET.ER PO SCH ×2 (22:11)
[2020-04-24] MEDS: LACTULOSE SYRUP 20 GM/30 ML UDCUP PO SCH ×3 (06:07→21:58)
[2020-04-24 07:35] LABS: BLOOD UREA NITROGEN 22 mg/dL (7-20); CALCIUM 7.5 mg/dL (8.4-10.2); GLUCOSE 96 mg/dL (75-110); POTASSIUM 3.6 mmol/L (3.6-5.0)
[2020-04-24 07:41] LABS: CARBON DIOXIDE 34 mmol/L (22-30); CHLORIDE 100 mmol/L (98-107)
[2020-04-24 07:44] LABS: ANION GAP 3 (5-19)
[2020-04-24] MEDS: METOPROLOL SUCCINATE 25 MG TAB.SR.24H PO SCH ×2 (09:04→22:44)
[2020-04-24] MEDS: FUROSEMIDE 20 MG TABLET PO SCH ×2 (09:04→17:39)
[2020-04-24] MEDS: POTASSIUM CHLORIDE 10 MEQ TABLET.ER PO SCH ×2 (09:04→22:00)
[2020-04-24] MEDS: LOSARTAN POTASSIUM 25 MG TABLET PO SCH ×2 (09:04→21:58)
[2020-04-24] MEDS: CEFTRIAXONE 1 GM/D5W RTU 1 GM/50 ML RTUPB IV SCH (09:04)
[2020-04-24] MEDS: FLUTICASONE/VILANTEROL 100-25 MCG/DOSE IH SCH (09:07)
[2020-04-24] MEDS: MORPHINE SULFATE 10 MG/ML INJ IV PRN ×2 (10:40→22:00)
--- NOTE | 2020-04-24 12:23 | PDOC PROGRESS REPORT ---
Subjective Progress Note for:: 04/24/20 Subjective:: 70 year old male past medical history significant for CHF followed by Dr. Sandoval, recurrent PAT, history of [place] without stents or bypass, history of gastric bypass who presents the ED after 4-day history of progressive shortness of breath/ascites/bilateral lower extremity edema which he states is consistent with previous CHF exacerbations. Chest x-ray did not show any acute abnormalities other than some possible early edema. BNP significantly elevated up to 43,000 and prior was 3000. Relative hypotension noted. Patient in paroxysmal atrial tachycardia with heart rate in the 150s. Cardiology consulted and started patient on digoxin. He denies any recent acute illness or any exposure to people exhibiting signs or symptoms of COVID. He also has a history of alcoholic liver disease, COPD and peripheral vascular disease. He is currently wearing a LifeVest and states he has not been shocked recently. Case discussed with cardiology and they will see him in consult. 04/18-Patient complains of shortness of breath 04/19-Patient reports that he "is not doing so well today". He endorses generally feeling unwell without specific complaint. He does note that he feels as if his breathing is worse today than yesterday. 04/20-Patient drowsy and delirious today with periodic lucid episodes 04/21-Patient extremely drowsy but arousable to verbal stimuli. When asked how he is doing he states "fine". 04/22-Patient much more alert today. When asked how he is doing he states "I feel better today". 04/23-Patient interactive today. When asked how he is doing he states "okay". Denies pain and SOB 04/24/2020-patient is comfortable in the bed communicating well. Wants to go home today. As per patient's request I called Reina and gave her an update she requested to keep him here in the hospital until he is stable. she is also requesting to place her dad in a long-term care facility. Reason For Visit: ATRIL FIBRILLATION WITH RVR, ACUTE SYSTOLIC CHF Physical Exam Vital Signs: Temp Pulse Resp BP Pulse Ox 97.5 F 77 18 92/52 L 95 04/24/20 07:51 04/24/20 10:37 04/24/20 10:37 04/24/20 07:51 04/24/20 10:37 Intake & Output 04/23/20 04/24/20 04/25/20 06:59 06:59 06:59 Intake Total 614 1699 50 Output Total 875 1600 Balance -261 99 50 Weight 71 kg 70.6 kg General appearance: PRESENT: no acute distress, cooperative, well-developed Head exam: PRESENT: atraumatic Eye exam: PRESENT: conjunctiva pale, PERRLA Ear exam: PRESENT: normal external ear exam Mouth exam: PRESENT: neck supple Teeth exam: PRESENT: poor dentation Neck exam: ABSENT: carotid bruit, JVD, lymphadenopathy, thyromegaly Respiratory exam: PRESENT: decreased breath sounds Cardiovascular exam: PRESENT: tachycardia GI/Abdominal exam: PRESENT: normal bowel sounds, soft. ABSENT: distended, guarding, mass, organolmegaly, rebound, tenderness Rectal exam: PRESENT: deferred Extremities exam: PRESENT: full ROM. ABSENT: calf tenderness, clubbing, pedal edema Neurological exam: PRESENT: alert, awake, oriented to person, oriented to place, oriented to time, oriented to situation, CN II-XII grossly intact. ABSENT: motor sensory deficit Psychiatric exam: PRESENT: appropriate affect, normal mood. ABSENT: homicidal ideation, suicidal ideation Results Laboratory Results: 04/23/20 06:45 04/24/20 06:47 04/24/20 04/24/20 06:47 06:47 Sodium 136.6 L Potassium 3.6 Chloride 100 Carbon Dioxide 34 H Anion Gap 3 L BUN 22 H Creatinine 0.70 Est GFR ( Amer) > 60 Glucose 96 Calcium 7.5 L Magnesium 1.6 Ammonia 25.6 04/17/20 04/17/20 04/19/20 07:05 07:05 08:56 Creatine Kinase 45 L Troponin I 0.068 NT-Pro-B Natriuret Pep 23104 H 07234 H 04/20/20 04/21/20 06:09 06:31 Creatine Kinase Troponin I NT-Pro-B Natriuret Pep 98502 H 40251 H Impressions: Paracentesis Ultrasound 04/19/20 00:00 IMPRESSION: SUCCESSFUL ULTRASOUND GUIDED PARACENTESIS. Chest X-Ray 04/20/20 00:00 IMPRESSION: Increasing vascular congestion. Assessment and Plan - Diagnosis (1) AMS (altered mental status) Is this a current diagnosis for this admission?: Yes Plan: Encephalopathy improved again today Ammonia level 127.9 on 04/20/20, down to 15.5 today -this does not seem possible given the fact that the patient went for almost 24 hours without lactulose Patient was made comfort care on 04/21/2020 and all medications were discontinued however he was transitioned back to DNR with comfort care orders rescinded on 04/22/2020 Decrease lactulose to 10 g p.o. every 8 hours Keep patient in IMCU 04/24/2020-patient admitted with altered mental status resolving. Patient alert awake communicating well this morning. Wants to go home. Serum sodium is 136 hyponatremia is resolved. CODE STATUS is DNR. (2) Acute and chronic respiratory failure Qualifiers: Is this a current diagnosis for this admission?: Yes Plan: Multifactorial including CHF/ascites/COPD Supplemental oxygen PRN Continue fluticasone/vilanterol 100/25 mcg 1 puff daily Continue albuterol/ipratropium nebs every 2 hours as needed 04/24/2020-patient admitted with acute on chronic respiratory failure which is multifactorial including CHF, COPD. EF is less than 15% cardiology on board. (3) CHF (congestive heart failure) Qualifiers: Heart failure type: unspecified Heart failure chronicity: acute on chronic Qualified Code(s): I50.9 - Heart failure, unspecified Is this a current diagnosis for this admission?: Yes Plan: Cardiology input appreciated Patient continues to appear volume overloaded I/O - 261 Weight up 0.3 kg since 04/21/2020 down 3.8 kg since admission Continue furosemide 20 mg p.o. twice daily 04/24/2020-Dr. Comer is following the patient on regular basis. Recent echocardiogram shows EF of less than 15%. Patient is on p.o. Lasix at this time. CODE STATUS is DNR/DNI. Yesterday input 614 mL and output is 875 mL with a negative balance of 261 mL. (4) Atrial fibrillation with RVR Is this a current diagnosis for this admission?: Yes Plan: Patient converted to sinus rhythm after receiving several doses of IV digoxin Defer cardiac medications to family day care provider Continue metoprolol succinate 25 mg p.o. every 12 hours Digoxin stopped when patient became comfort care and was not resumed by cardiology 04/24/2020-heart rate today 76. Rate controlled rhythm. Plan is to continue metoprolol 25 mg p.o. every 12 hours. Patient is not on anticoagulation at this time. (5) Anemia Is this a current diagnosis for this admission?: Yes Plan: No treatment indicated at this time Monitor periodically 04/24/2020-latest hemoglobin is 13. Stable. (6) NSVT (nonsustained ventricular tachycardia) Is this a current diagnosis for this admission?: Yes Plan: Patient had 22 beat run of nonsustained ventricular tachycardia overnight 04/18/20-04/19/20 Does not wish to have LifeVest replaced (7) Cirrhosis Qualifiers: Hepatic cirrhosis type: alcoholic cirrhosis Ascites presence: with ascites Qualified Code(s): K70.31 - Alcoholic cirrhosis of liver with ascites Is this a current diagnosis for this admission?: Yes Plan: Patient underwent successful paracentesis on 04/19/2020 to remove 5600 cc straw- colored fluid Abdomen is becoming more distended, patient asked about repeat paracentesis and he states that if he needs one he is amenable to this Patient may need paracentesis soon Continue ceftriaxone 1 g IV every 24 hours for SBP prophylaxis (8) COPD (chronic obstructive pulmonary disease) Qualifiers: Is this a current diagnosis for this admission?: No Plan: Meds as noted above Bronchodilator nebs as needed (9) Leucocytosis Is this a current diagnosis for this admission?: Yes Plan: Resolved Patient remains afebrile Patient started on empiric ceftriaxone for SBP prophylaxis Blood cultures from 04/20/2020 NG at 72 hours 04/24/2020-WBC count is 6000 leukocytosis is resolved. - Time Anticipated Discharge Disposition: Care Home Facility Anticipated Discharge Timeframe: within 72 hours
[2020-04-24] MEDS: IPRATROPIUM/ALBUTEROL 0.5-2.5 MG/3 ML AMPUL NEB PRN (16:03)
--- NOTE | 2020-04-24 18:53 | Progress Note ---
Provider Note Provider Note: Cardiology PROGRESS NOTE by Dr. Lorenza Sandoval on 04/24/2020. SUBJECTIVE: The patient still awake and drowsy but makes more conversations. He states he wants to go home. He still is wheezing. There is no recurrence of SVT or any atrial or ventricular arrhythmias seen. He continues to cough productive of sputum but the color of the sputum is not known since the patient does not preserve the sputum. PHYSICAL EXAMINATION: The patient appears to be a frail build and chronically ill and malnourished. Selected Entries 04/24/20 15:33 Temperature 97.8 F Temperature Oral Source Pulse Rate 85 Respiratory 16 Rate Blood Pressure 92/57 L Blood Pressure 68 Mean BP Location Right Arm BP Position Supine O2 Sat by Pulse 99 Oximetry Oxygen Delivery Room Air Method HEAD: Is atraumatic normocephalic. EYES: Pupils are equal round regular reactive to light accommodation. Extraocular movements are normal. There is no conjunctival pallor. There is no scleral icterus. EARS: Tympanic membranes are intact. External auditory canals are clear. NOSE: There is no deviated nasal septum. There is no inflammation nasal mucous membrane. MOUTH: Mucous membranes of the mouth are moist. Tongue is moist there is no ulcers. There is no bleeding from the gums THROAT: There is no redness of the oropharynx. There is no exudates. SKIN: There is no skin rashes. There is no skin lesions. There is no petechia or ecchymosis. NECK: Is supple there is mild JVD present. Carotids are equal there is no bruits. There is no lymphadenopathy. There is no goiter. There is no accessory muscle respiration use. Trachea central. LUNGS: There is diminished air entry prolonged expiration. There is bilateral scattered rhonchi and mild end expiratory wheezing. There are basal fine rales of CHF. On percussion there is hyperresonance. HEART: S1-S2 is heard. There is no S3 gallop. There is no S4 gallop. Systolic murmur left sternal border and the apex there is no rub. ABDOMEN: Soft abdomen is distended. Bowel sounds are increased. There is shifting dullness of ascites and also on percussion there is tympanic note. There is no definite hepatosplenomegaly. There is no ascites present. There is a reducible right inguinal hernia present there is no tender areas masses. EXTREMITIES: Femorals are diminished. There is no femoral bruits. Leg pulses are diminished. There is trace pedal edema bilaterally. There is no DVT or cellulitis. There is no calf tenderness. There is no cyanosis or clubbing. RESPIRATORY THERAPY MANAGER: Conscious slightly drowsy. No focal deficits. PSYCHIATRIC: The patient does not appear to be agitated or anxious. Paracentesis Ultrasound 04/19/20 00:00 IMPRESSION: SUCCESSFUL ULTRASOUND GUIDED PARACENTESIS. Chest X-Ray 04/20/20 00:00 IMPRESSION: Increasing vascular congestion. Labs- All tests 24 hr 04/24/20 04/24/20 06:47 06:47 Sodium 136.6 L Potassium 3.6 Chloride 100 Carbon Dioxide 34 H Anion Gap 3 L BUN 22 H Creatinine 0.70 Est GFR ( Amer) > 60 Est GFR (MDRD) Non-Af > 60 Glucose 96 Calcium 7.5 L Magnesium 1.6 Ammonia 25.6 IMPRESSION/RECOMMENDATION: 1. Altered mental status most likely secondary to narcotic overdose, and also the main part being hepatic encephalopathy. The patient's ammonia level has come down now.. The patient is more awake today and. 2. Hypotension: We will get a central line placed and transfer the patient to the telemetry unit so that we can start the patient on dopamine. The increased dose of mid midodrine has not helped. Hence due to low blood pressure could not start the patient on meaningful doses of afterload reduction and beta blockers. 3. Acute on chronic respiratory failure: This is secondary to acute on chronic respiratory failure acute exacerbation of COPD and noncompliance. 4. COPD with acute exacerbation: Continue anti-COPD medication steroids and antibiotics. 5. 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 Continue current diuretics and and Toprol-XL. Continue Entresto. Continue midodrine. Patient is high risk for sudden and says a LifeVest on. No firing of the LifeVest. 5. Supraventricular tachycardia: Continue with his oxygen. Continues beta- sarina. 6. Dilated cardiomyopathy and also ischemic cardiomyopathy with severely reduced LV ejection fraction. 7. Possible pneumonia: Continue antibiotics 8. Cirrhosis of the liver with ascites. The patient had paracentesis and had fluid removed from his abdomen. 9. Right inguinal hernia: We will see if surgery can repair the patient's hernia once acute COPD and acute on chronic CHF are controlled 10. Coronary artery disease: No anginal symptoms. Patient has ischemic and dilated cardiomyopathy 11. Ongoing tobacco abuse: Tobacco cessation counseling given. Medications reviewed. Medical regimen and management plan discussed with attending provider on the case. Medical decision making is of moderate complexity. 40 minutes spent as patient more than 50% time spent in direct patient care. Will follow.
[2020-04-25] MEDS: MORPHINE SULFATE 10 MG/ML INJ IV PRN ×3 (03:11→20:20)
[2020-04-25] MEDS: LACTULOSE SYRUP 20 GM/30 ML UDCUP PO SCH (07:34)
[2020-04-25] MEDS: LORAZEPAM INJ 2 MG/1 ML VIAL IV PRN (08:41)
[2020-04-25] MEDS: METOPROLOL SUCCINATE 25 MG TAB.SR.24H PO SCH ×2 (09:56→11:41)
[2020-04-25] MEDS: FUROSEMIDE 20 MG TABLET PO SCH ×2 (09:57→11:40)
[2020-04-25] MEDS: LOSARTAN POTASSIUM 25 MG TABLET PO SCH ×2 (09:58→11:39)
[2020-04-25] MEDS: CEFTRIAXONE 1 GM/D5W RTU 1 GM/50 ML RTUPB IV SCH (09:59)
[2020-04-25] MEDS: POTASSIUM CHLORIDE 10 MEQ TABLET.ER PO SCH ×2 (10:01→11:41)
[2020-04-25] MEDS: FLUTICASONE/VILANTEROL 100-25 MCG/DOSE IH SCH (10:02)
--- NOTE | 2020-04-25 11:26 | PDOC PROGRESS REPORT ---
Subjective Progress Note for:: 04/25/20 Subjective:: 70 year old male past medical history significant for CHF followed by Dr. Sandoval, recurrent PAT, history of [place] without stents or bypass, history of gastric bypass who presents the ED after 4-day history of progressive shortness of breath/ascites/bilateral lower extremity edema which he states is consistent with previous CHF exacerbations. Chest x-ray did not show any acute abnormalities other than some possible early edema. BNP significantly elevated up to 43,000 and prior was 3000. Relative hypotension noted. Patient in paroxysmal atrial tachycardia with heart rate in the 150s. Cardiology consulted and started patient on digoxin. He denies any recent acute illness or any exposure to people exhibiting signs or symptoms of COVID. He also has a history of alcoholic liver disease, COPD and peripheral vascular disease. He is currently wearing a LifeVest and states he has not been shocked recently. Case discussed with cardiology and they will see him in consult. 04/18-Patient complains of shortness of breath 04/19-Patient reports that he "is not doing so well today". He endorses generally feeling unwell without specific complaint. He does note that he feels as if his breathing is worse today than yesterday. 04/20-Patient drowsy and delirious today with periodic lucid episodes 04/21-Patient extremely drowsy but arousable to verbal stimuli. When asked how he is doing he states "fine". 04/22-Patient much more alert today. When asked how he is doing he states "I feel better today". 04/23-Patient interactive today. When asked how he is doing he states "okay". Denies pain and SOB 04/24/2020-patient is comfortable in the bed communicating well. Wants to go home today. As per patient's request I called Reina and gave her an update she requested to keep him here in the hospital until he is stable. she is also requesting to place her dad in a long-term care facility. 04/25/20-patient is confused but not agitated. Unable to maintain good conversation at this time. Case was discussed with the patient's daughter Reina she want him to go to hospice house on [place] and agreed for comfort care measures. Reason For Visit: ATRIL FIBRILLATION WITH RVR, ACUTE SYSTOLIC CHF Physical Exam Vital Signs: Temp Pulse Resp BP Pulse Ox 97.5 F 83 20 106/62 84 L 04/25/20 08:42 04/25/20 08:42 04/25/20 08:42 04/25/20 08:42 04/25/20 08:42 Intake & Output 04/24/20 04/25/20 04/26/20 06:59 06:59 06:59 Intake Total 1699 1372 Output Total 1600 800 Balance 99 572 Weight 70.6 kg 70.5 kg General appearance: PRESENT: no acute distress, disheveled. ABSENT: cooperative Head exam: PRESENT: atraumatic Eye exam: PRESENT: conjunctiva pale, PERRLA Mouth exam: PRESENT: moist, tongue midline Respiratory exam: PRESENT: decreased breath sounds Cardiovascular exam: PRESENT: irregular rhythm GI/Abdominal exam: PRESENT: normal bowel sounds, soft. ABSENT: distended, guarding, mass, organolmegaly, rebound, tenderness Rectal exam: PRESENT: deferred Extremities exam: PRESENT: full ROM. ABSENT: calf tenderness, clubbing, pedal edema Neurological exam: ABSENT: altered Results Laboratory Results: 04/23/20 06:45 04/24/20 06:47 04/25/20 06:20 Ammonia 47.4 H 04/17/20 04/17/20 04/19/20 07:05 07:05 08:56 Creatine Kinase 45 L Troponin I 0.068 NT-Pro-B Natriuret Pep 17290 H 31355 H 04/20/20 04/21/20 06:09 06:31 Creatine Kinase Troponin I NT-Pro-B Natriuret Pep 97115 H 90135 H Impressions: Paracentesis Ultrasound 04/19/20 00:00 IMPRESSION: SUCCESSFUL ULTRASOUND GUIDED PARACENTESIS. Chest X-Ray 04/20/20 00:00 IMPRESSION: Increasing vascular congestion. Assessment and Plan - Diagnosis (1) AMS (altered mental status) Is this a current diagnosis for this admission?: Yes Plan: Encephalopathy improved again today Ammonia level 127.9 on 04/20/20, down to 15.5 today -this does not seem possible given the fact that the patient went for almost 24 hours without lactulose Patient was made comfort care on 04/21/2020 and all medications were discontinued however he was transitioned back to DNR with comfort care orders rescinded on 04/22/2020 Decrease lactulose to 10 g p.o. every 8 hours Keep patient in IMCU 04/24/2020-patient admitted with altered mental status resolving. Patient alert awake communicating well this morning. Wants to go home. Serum sodium is 136 hyponatremia is resolved. CODE STATUS is DNR. 04/25/2020-patient is confused but not agitated. Unable to communicate properly. Case was discussed with patient's daughter Reina she is requesting for him to go to hospice house in [place] and agreed for comfort care measures. CODE STATUS is DNR/DNI. (2) Acute and chronic respiratory failure Qualifiers: Is this a current diagnosis for this admission?: Yes Plan: Multifactorial including CHF/ascites/COPD Supplemental oxygen PRN Continue fluticasone/vilanterol 100/25 mcg 1 puff daily Continue albuterol/ipratropium nebs every 2 hours as needed 04/24/2020-patient admitted with acute on chronic respiratory failure which is multifactorial including CHF, COPD. EF is less than 15% cardiology on board. 04/25/2020-pulse ox today's 96% on 3 L. Patient admitted with acute on chronic respiratory failure. (3) CHF (congestive heart failure) Qualifiers: Heart failure type: unspecified Heart failure chronicity: acute on chronic Qualified Code(s): I50.9 - Heart failure, unspecified Is this a current diagnosis for this admission?: Yes Plan: Cardiology input appreciated Patient continues to appear volume overloaded I/O - 261 Weight up 0.3 kg since 04/21/2020 down 3.8 kg since admission Continue furosemide 20 mg p.o. twice daily 04/24/2020-Dr. Comer is following the patient on regular basis. Recent echocardiogram shows EF of less than 15%. Patient is on p.o. Lasix at this time. CODE STATUS is DNR/DNI. Yesterday input 614 mL and output is 875 mL with a negative balance of 261 mL. (4) Atrial fibrillation with RVR Is this a current diagnosis for this admission?: Yes Plan: Patient converted to sinus rhythm after receiving several doses of IV digoxin Defer cardiac medications to documentation improvement specialist Continue metoprolol succinate 25 mg p.o. every 12 hours Digoxin stopped when patient became comfort care and was not resumed by cardiology 04/24/2020-heart rate today 76. Rate controlled rhythm. Plan is to continue metoprolol 25 mg p.o. every 12 hours. Patient is not on anticoagulation at this time. 04/25/2020-heart rate in the 70s. Patient is going to be on comfort care measures as per the family request. (5) Anemia Is this a current diagnosis for this admission?: Yes Plan: No treatment indicated at this time Monitor periodically 04/24/2020-latest hemoglobin is 13. Stable. 04/25/20-plan is to stop the lab work as per the patient's family request he is going to be on comfort care measures only. (6) NSVT (nonsustained ventricular tachycardia) Is this a current diagnosis for this admission?: Yes (7) Cirrhosis Qualifiers: Hepatic cirrhosis type: alcoholic cirrhosis Ascites presence: with ascites Qualified Code(s): K70.31 - Alcoholic cirrhosis of liver with ascites Is this a current diagnosis for this admission?: Yes (8) COPD (chronic obstructive pulmonary disease) Qualifiers: Is this a current diagnosis for this admission?: No (9) Leucocytosis Is this a current diagnosis for this admission?: Yes - Time Anticipated Discharge Disposition: Hospice Center Anticipated Discharge Timeframe: within 48 hours
[2020-04-25] MEDS ORDERED: SCOPOLAMINE HYDROBROMIDE 1.5 MG PATCH.TD72 TD SCH (13:00)
--- NOTE | 2020-04-25 20:55 | Progress Note ---
Provider Note Provider Note: As per the hospitalist discussion with the patient's daughter, since the patient is confused the patient has been made hospice care. Hence will sign off.
[2020-04-26] MEDS: MORPHINE SULFATE 10 MG/ML INJ IV PRN ×3 (00:32→22:26)
--- NOTE | 2020-04-26 14:38 | PDOC PROGRESS REPORT ---
Subjective Progress Note for:: 04/26/20 Subjective:: 70 year old male past medical history significant for CHF followed by Dr. Sandoval, recurrent PAT, history of [place] without stents or bypass, history of gastric bypass who presents the ED after 4-day history of progressive shortness of breath/ascites/bilateral lower extremity edema which he states is consistent with previous CHF exacerbations. Chest x-ray did not show any acute abnormalities other than some possible early edema. BNP significantly elevated up to 43,000 and prior was 3000. Relative hypotension noted. Patient in paroxysmal atrial tachycardia with heart rate in the 150s. Cardiology consulted and started patient on digoxin. He denies any recent acute illness or any exposure to people exhibiting signs or symptoms of COVID. He also has a history of alcoholic liver disease, COPD and peripheral vascular disease. He is currently wearing a LifeVest and states he has not been shocked recently. Case discussed with cardiology and they will see him in consult. 04/18-Patient complains of shortness of breath 04/19-Patient reports that he "is not doing so well today". He endorses generally feeling unwell without specific complaint. He does note that he feels as if his breathing is worse today than yesterday. 04/20-Patient drowsy and delirious today with periodic lucid episodes 04/21-Patient extremely drowsy but arousable to verbal stimuli. When asked how he is doing he states "fine". 04/22-Patient much more alert today. When asked how he is doing he states "I feel better today". 04/23-Patient interactive today. When asked how he is doing he states "okay". Denies pain and SOB 04/24/2020-patient is comfortable in the bed communicating well. Wants to go home today. As per patient's request I called Reina and gave her an update she requested to keep him here in the hospital until he is stable. she is also requesting to place her dad in a long-term care facility. 04/25/20-patient is confused but not agitated. Unable to maintain good conversation at this time. Case was discussed with the patient's daughter Reina she want him to go to hospice house on [place] and agreed for comfort care measures. 04/26/20-patient is confused talking to himself and he is on comfort care measures only. Waiting for hospice house placement. Reason For Visit: ATRIL FIBRILLATION WITH RVR, ACUTE SYSTOLIC CHF Physical Exam Vital Signs: Temp Pulse Resp BP Pulse Ox 97.5 F 104 H 16 109/89 H 99 04/26/20 08:01 04/25/20 20:00 04/26/20 08:01 04/26/20 08:01 04/25/20 20:00 Intake & Output 04/25/20 04/26/20 04/27/20 06:59 06:59 06:59 Intake Total 1372 766 Output Total 800 250 Balance 572 516 Weight 70.5 kg General appearance: PRESENT: no acute distress, other - Patient is confused unable to communicate well.. ABSENT: cooperative Head exam: PRESENT: atraumatic Eye exam: PRESENT: PERRLA Teeth exam: PRESENT: poor dentation Neck exam: ABSENT: carotid bruit, JVD, lymphadenopathy, thyromegaly Respiratory exam: PRESENT: decreased breath sounds Cardiovascular exam: PRESENT: RRR. ABSENT: diastolic murmur, rubs, systolic murmur GI/Abdominal exam: PRESENT: normal bowel sounds, soft. ABSENT: distended, g uarding, mass, organolmegaly, rebound, tenderness Rectal exam: PRESENT: deferred Extremities exam: PRESENT: full ROM. ABSENT: calf tenderness, clubbing, pedal edema Neurological exam: PRESENT: altered, CN II-XII grossly intact. ABSENT: motor sensory deficit Psychiatric exam: PRESENT: appropriate affect, normal mood. ABSENT: homicidal ideation, suicidal ideation Results Laboratory Results: 04/23/20 06:45 04/24/20 06:47 04/20/20 13:56 Blood Blood Culture - Final NO GROWTH IN 5 DAYS 04/20/20 13:25 Blood Blood Culture - Final NO GROWTH IN 5 DAYS 04/17/20 04/17/20 04/19/20 07:05 07:05 08:56 Creatine Kinase 45 L Troponin I 0.068 NT-Pro-B Natriuret Pep 49378 H 45488 H 04/20/20 04/21/20 06:09 06:31 Creatine Kinase Troponin I NT-Pro-B Natriuret Pep 19955 H 72296 H Impressions: Paracentesis Ultrasound 04/19/20 00:00 IMPRESSION: SUCCESSFUL ULTRASOUND GUIDED PARACENTESIS. Chest X-Ray 04/20/20 00:00 IMPRESSION: Increasing vascular congestion. Assessment and Plan - Diagnosis (1) AMS (altered mental status) Is this a current diagnosis for this admission?: Yes Plan: Encephalopathy improved again today Ammonia level 127.9 on 04/20/20, down to 15.5 today -this does not seem possible given the fact that the patient went for almost 24 hours without lactulose Patient was made comfort care on 04/21/2020 and all medications were discontinued however he was transitioned back to DNR with comfort care orders rescinded on 04/22/2020 Decrease lactulose to 10 g p.o. every 8 hours Keep patient in IMCU 04/24/2020-patient admitted with altered mental status resolving. Patient alert awake communicating well this morning. Wants to go home. Serum sodium is 136 hyponatremia is resolved. CODE STATUS is DNR. 04/25/2020-patient is confused but not agitated. Unable to communicate properly. Case was discussed with patient's daughter Reina she is requesting for him to go to hospice house in [place] and agreed for comfort care measures. CODE STATUS is DNR/DNI. 04/26/20-patient is on comfort care measures only waiting for hospice placement. (2) Acute and chronic respiratory failure Qualifiers: Is this a current diagnosis for this admission?: Yes Plan: Multifactorial including CHF/ascites/COPD Supplemental oxygen PRN Continue fluticasone/vilanterol 100/25 mcg 1 puff daily Continue albuterol/ipratropium nebs every 2 hours as needed 04/24/2020-patient admitted with acute on chronic respiratory failure which is multifactorial including CHF, COPD. EF is less than 15% cardiology on board. 04/25/2020-pulse ox today's 96% on 3 L. Patient admitted with acute on chronic respiratory failure. 04/26/2020-patient is on comfort care measures only. (3) CHF (congestive heart failure) Qualifiers: Heart failure type: unspecified Heart failure chronicity: acute on chronic Qualified Code(s): I50.9 - Heart failure, unspecified Is this a current diagnosis for this admission?: Yes (4) Atrial fibrillation with RVR Is this a current diagnosis for this admission?: Yes (5) Anemia Is this a current diagnosis for this admission?: Yes (6) NSVT (nonsustained ventricular tachycardia) Is this a current diagnosis for this admission?: Yes (7) Cirrhosis Qualifiers: Hepatic cirrhosis type: alcoholic cirrhosis Ascites presence: with ascites Qualified Code(s): K70.31 - Alcoholic cirrhosis of liver with ascites Is this a current diagnosis for this admission?: Yes (8) COPD (chronic obstructive pulmonary disease) Qualifiers: Is this a current diagnosis for this admission?: No (9) Leucocytosis Is this a current diagnosis for this admission?: Yes - Time Anticipated Discharge Disposition: Home with Hospice Anticipated Discharge Timeframe: within 48 hours
[2020-04-26 20:29] VITALS: BP 106/63
[2020-04-26] MEDS: LORAZEPAM INJ 2 MG/1 ML VIAL IV PRN (22:26)
[2020-04-27] MEDS: LORAZEPAM INJ 2 MG/1 ML VIAL IV PRN (02:33)
[2020-04-27] MEDS: MORPHINE SULFATE 10 MG/ML INJ IV PRN ×2 (02:33→07:01)
--- NOTE | 2020-04-27 15:57 | PDOC DISCHARGE SUMMARY ---
Impression - Admit/DC Date/PCP Admission Date/Primary Care Provider: 04/17/20 08:[facility] Discharge Date: 04/27/20 - Discharge Diagnosis (1) AMS (altered mental status) Is this a current diagnosis for this admission?: Yes (2) Acute and chronic respiratory failure Is this a current diagnosis for this admission?: Yes (3) CHF (congestive heart failure) Is this a current diagnosis for this admission?: Yes (4) Atrial fibrillation with RVR Is this a current diagnosis for this admission?: Yes (5) Anemia Is this a current diagnosis for this admission?: Yes (6) NSVT (nonsustained ventricular tachycardia) Is this a current diagnosis for this admission?: Yes (7) Cirrhosis Is this a current diagnosis for this admission?: Yes (8) COPD (chronic obstructive pulmonary disease) Is this a current diagnosis for this admission?: No (9) Leucocytosis Is this a current diagnosis for this admission?: Yes - Assessment Summary: (1) AMS (altered mental status) Is this a current diagnosis for this admission?: Yes Plan: Encephalopathy improved again today Ammonia level 127.9 on 04/20/20, down to 15.5 today -this does not seem possible given the fact that the patient went for almost 24 hours without lactulose Patient was made comfort care on 04/21/2020 and all medications were discontinued however he was transitioned back to DNR with comfort care orders rescinded on 04/22/2020 Decrease lactulose to 10 g p.o. every 8 hours Keep patient in IMCU 04/24/2020-patient admitted with altered mental status resolving. Patient alert awake communicating well this morning. Wants to go home. Serum sodium is 136 hyponatremia is resolved. CODE STATUS is DNR. 04/25/2020-patient is confused but not agitated. Unable to communicate properly. Case was discussed with patient's daughter Reina she is requesting for him to go to hospice house in [place] and agreed for comfort care measures. CODE STATUS is DNR/DNI. 04/26/20-patient is on comfort care measures only waiting for hospice placement. 04/27/2020-overall prognosis poor condition is critical family agreed for comfort care measures only and patient is going to hospice house today. (2) Acute and chronic respiratory failure Qualifiers: Is this a current diagnosis for this admission?: Yes Plan: Multifactorial including CHF/ascites/COPD Supplemental oxygen PRN Continue fluticasone/vilanterol 100/25 mcg 1 puff daily Continue albuterol/ipratropium nebs every 2 hours as needed 04/24/2020-patient admitted with acute on chronic respiratory failure which is multifactorial including CHF, COPD. EF is less than 15% cardiology on board. 04/25/2020-pulse ox today's 96% on 3 L. Patient admitted with acute on chronic respiratory failure. 04/26/2020-patient is on comfort care measures only. 04/27/2020-patient is going to hospice house today. (3) CHF (congestive heart failure) Qualifiers: Heart failure type: unspecified Heart failure chronicity: acute on chronic Qualified Code(s): I50.9 - Heart failure, unspecified Is this a current diagnosis for this admission?: Yes (4) Atrial fibrillation with RVR Is this a current diagnosis for this admission?: Yes (5) Anemia Is this a current diagnosis for this admission?: Yes (6) NSVT (nonsustained ventricular tachycardia) Is this a current diagnosis for this admission?: Yes (7) Cirrhosis Qualifiers: Hepatic cirrhosis type: alcoholic cirrhosis Ascites presence: with ascites Qualified Code(s): K70.31 - Alcoholic cirrhosis of liver with ascites Is this a current diagnosis for this admission?: Yes (8) COPD (chronic obstructive pulmonary disease) Qualifiers: Is this a current diagnosis for this admission?: No (9) Leucocytosis Is this a current diagnosis for this admission?: Yes - Time Anticipated Discharge Disposition: Home with Hospice Anticipated Discharge Timeframe: within 48 hours - Additional Information Resuscitation Status: Do Not Resuscitate Discharge Diet: Cardiac Discharge Activity: Activity As Tolerated, Balance Activity w/Rest, Weigh Daily Referrals: [facility] [Primary Care [facility]] - Follow up as needed (The patient will call for his own appointment.) History of Present Illiness History of Present Illness: DURAN TELLES is a 70 year old male 70 year old male past medical history significant for CHF followed by Dr. Sandoval, recurrent PAT, history of CT without stents or bypass, history of gastric bypass who presents the ED after 4-day history of progressive shortness of breath/ascites/bilateral lower extremity edema which he states is consistent with previous CHF exacerbations. Chest x-ray did not show any acute abnormalities other than some possible early edema. BNP significantly elevated up to 43,000 and prior was 3000. Relative hypotension noted. Patient in paroxysmal atrial tachycardia with heart rate in the 150s. Cardiology consulted and started patient on digoxin. He denies any recent acute illness or any exposure to people exhibiting signs or symptoms of COVID. He also has a history of alcoholic liver disease, COPD and peripheral vascular disease. He is currently wearing a LifeVest and states he has not been shocked recently. Case discussed with cardiology and they will see him in consult. Hospital Course Hospital Course: 70 year old male past medical history significant for CHF followed by Dr. Sandoval, recurrent PAT, history of CT without stents or bypass, history of gastric bypass who presents the ED after 4-day history of progressive shortness of breath/ascites/bilateral lower extremity edema which he states is consistent with previous CHF exacerbations. Chest x-ray did not show any acute abnor malities other than some possible early edema. BNP significantly elevated up to 43,000 and prior was 3000. Relative hypotension noted. Patient in paroxysmal atrial tachycardia with heart rate in the 150s. Cardiology consulted and started patient on digoxin. He denies any recent acute illness or any exposure to people exhibiting signs or symptoms of COVID. He also has a history of alcoholic liver disease, COPD and peripheral vascular disease. He is currently wearing a LifeVest and states he has not been shocked recently. Case discussed with cardiology and they will see him in consult. 04/18-Patient complains of shortness of breath 04/19-Patient reports that he "is not doing so well today". He endorses generally feeling unwell without specific complaint. He does note that he feels as if his breathing is worse today than yesterday. 04/20-Patient drowsy and delirious today with periodic lucid episodes 04/21-Patient extremely drowsy but arousable to verbal stimuli. When asked how he is doing he states "fine". 04/22-Patient much more alert today. When asked how he is doing he states "I feel better today". 04/23-Patient interactive today. When asked how he is doing he states "okay". Denies pain and SOB 04/24/2020-patient is comfortable in the bed communicating well. Wants to go home today. As per patient's request I called Reina and gave her an update she requested to keep him here in the hospital until he is stable. she is also requesting to place her dad in a long-term care facility. 04/25/20-patient is confused but not agitated. Unable to maintain good conversat ion at this time. Case was discussed with the patient's daughter Reina she want him to go to hospice house on [place] and agreed for comfort care measures. 04/26/20-patient is confused talking to himself and he is on comfort care measures only. Waiting for hospice house placement. 04/27/2020-patient is going to hospice house today. pt Is on comfort care measures. Physical Exam Vital Signs: Temp Pulse Resp BP Pulse Ox 98.0 F 108 H 22 H 106/63 100 04/26/20 19:53 04/26/20 19:53 04/26/20 19:53 04/26/20 19:53 04/27/20 03:50 Intake & Output 04/26/20 04/27/20 04/28/20 06:59 06:59 06:59 Intake Total 766 Output Total 250 Balance 516 General appearance: PRESENT: disheveled, mild distress. ABSENT: cooperative Head exam: PRESENT: atraumatic Eye exam: PRESENT: conjunctiva pale, PERRLA Ear exam: PRESENT: normal external ear exam Mouth exam: PRESENT: dry mucosa, neck supple Teeth exam: PRESENT: poor dentation Neck exam: ABSENT: carotid bruit, JVD, lymphadenopathy, thyromegaly Respiratory exam: PRESENT: decreased breath sounds Cardiovascular exam: PRESENT: RRR. ABSENT: diastolic murmur, rubs, systolic murmur GI/Abdominal exam: PRESENT: soft, other - Sluggish bowel sounds. ABSENT: distended, guarding, mass, organolmegaly, rebound, tenderness Rectal exam: PRESENT: deferred Extremities exam: PRESENT: full ROM. ABSENT: calf tenderness, clubbing, pedal edema Neurological exam: PRESENT: altered Results Laboratory Results: WBC 6.0 10^3/uL (4.0-10.5) 04/23/20 06:45 RBC 5.01 10^6/uL (4.35-5.55) 04/23/20 06:45 Hgb 13.0 g/dL (13.5-17.0) L 04/23/20 06:45 Hct 40.1 % (37.9-51.0) 04/23/20 06:45 MCV 80 fl (80-97) 04/23/20 06:45 MCH 25.9 pg (27.0-33.4) L 04/23/20 06:45 MCHC 32.3 g/dL (32.0-36.0) 04/23/20 06:45 RDW 17.2 % (11.5-14.0) H 04/23/20 06:45 Plt Count 235 10^3/uL (150-450) 04/23/20 06:45 Lymph % (Auto) 15.0 % (13-45) 04/23/20 06:45 [place] % (Auto) 9.8 % (3-13) 04/23/20 06:45 Eos % (Auto) 8.0 % (0-6) H 04/23/20 06:45 Baso % (Auto) 1.0 % (0-2) 04/23/20 06:45 Absolute Neuts (auto) 4.0 10^3/uL (1.7-8.2) 04/23/20 06:45 Absolute Lymphs (auto) 0.9 10^3/uL (0.5-4.7) 04/23/20 06:45 Absolute Monos (auto) 0.6 10^3/uL (0.1-1.4) 04/23/20 06:45 Absolute Eos (auto) 0.5 10^3/uL (0.0-0.6) 04/23/20 06:45 Absolute Basos (auto) 0.1 10^3/uL (0.0-0.2) 04/23/20 06:45 Total Counted 100 04/17/20 07:05 Seg Neutrophils % 66.2 % (42-78) 04/23/20 06:45 Seg Neuts % (Manual) 54 % (42-78) 04/17/20 07:05 Lymphocytes % (Manual) 21 % (13-45) 04/17/20 07:05 Atypical Lymphs % 4 % (0) 04/17/20 07:05 Monocytes % (Manual) 4 % (3-13) 04/17/20 07:05 Eosinophils % (Manual) 14 % (0-6) H 04/17/20 07:05 Basophils % (Manual) 2 % (0-2) 04/17/20 07:05 Metamyelocytes % 1 % (0-1) 04/17/20 07:05 Abs Neuts (Manual) 4.1 10^3/uL (1.7-8.2) 04/17/20 07:05 Abs Lymphs (Manual) 1.9 10^3/uL (0.5-4.7) 04/17/20 07:05 Abs Monocytes (Manual) 0.3 10^3/uL (0.1-1.4) 04/17/20 07:05 Absolute Eos (Manual) 1.1 10^3/uL (0.0-0.6) H 04/17/20 07:05 Abs Basophils (Manual) 0.2 10^3/uL (0.0-0.2) 04/17/20 07:05 Platelet Comment ADEQUATE 04/17/20 07:05 Polychromasia SLIGHT 04/17/20 07:05 Poikilocytosis 1+ 04/17/20 07:05 Anisocytosis 1+ 04/17/20 07:05 Microcytosis SLIGHT 04/17/20 07:05 Ovalocytes 1+ 04/17/20 07:05 Acanthocytes (Spur) SLIGHT 04/17/20 07:05 Schistocytes SLIGHT 04/17/20 07:05 PT 16.4 SEC (11.4-15.4) H 04/17/20 07:05 INR 1.30 04/17/20 07:05 Carbonic Acid 1.35 mmol/L (1.05-1.35) 04/20/20 20:58 HCO3/H2CO3 Ratio 21:1 04/20/20 20:58 ABG pH 7.43 (7.35-7.45) 04/20/20 20:58 ABG pCO2 44.9 mmHg (35-45) 04/20/20 20:58 ABG pO2 135.3 mmHg (80-100) H 04/20/20 20:58 ABG HCO3 29.1 mmol/L (20-24) H 04/20/20 20:58 ABG Total CO2 30.5 mmol/L (23-27) H 04/20/20 20:58 ABG O2 Saturation 98.8 % (94-98) H 04/20/20 20:58 ABG Base Excess 4.3 mmol/L 04/20/20 20:58 FiO2 13L 04/20/20 20:58 Sodium 136.6 mmol/L (137-145) L 04/24/20 06:47 Potassium 3.6 mmol/L (3.6-5.0) 04/24/20 06:47 Chloride 100 mmol/L (98-107) 04/24/20 06:47 Carbon Dioxide 34 mmol/L (22-30) H 04/24/20 06:47 Anion Gap 3 (5-19) L 04/24/20 06:47 BUN 22 mg/dL (7-20) H 04/24/20 06:47 Creatinine 0.70 mg/dL (0.52-1.25) 04/24/20 06:47 Est GFR ( Amer) > 60 (>60) 04/24/20 06:47 Est GFR (Non-Af Amer) Cancelled 04/20/20 06:09 Est GFR (MDRD) Non-Af > 60 (>60) 04/24/20 06:47 Glucose 96 mg/dL (75-110) 04/24/20 06:47 POC Glucose 112 mg/dL (70-110) H 04/21/20 11:49 Calcium 7.5 mg/dL (8.4-10.2) L 04/24/20 06:47 Phosphorus 3.9 mg/dL (2.5-4.5) 04/20/20 09:53 Magnesium 1.6 mg/dL (1.6-2.3) 04/24/20 06:47 Total Bilirubin 1.0 mg/dL (0.2-1.3) 04/23/20 06:45 Direct Bilirubin 0.2 mg/dL (0.0-0.4) 04/23/20 06:45 Neonat Total Bilirubin Not Reportable 04/23/20 06:45 Neonat Direct Bilirubin Not Reportable 04/23/20 06:45 Neonat Indirect Bili Not Reportable 04/23/20 06:45 AST 26 U/L (17-59) 04/23/20 06:45 ALT 11 U/L (<50) 04/23/20 06:45 Alkaline Phosphatase 181 U/L (38-126) H 04/23/20 06:45 Ammonia 47.4 umol/L (9-33) H 04/25/20 06:20 Creatine Kinase 45 U/L (55-170) L 04/17/20 07:05 Troponin I 0.068 ng/mL 04/17/20 07:05 NT-Pro-B Natriuret Pep 90672 pg/mL (<125) H 04/21/20 06:31 Total Protein 7.1 g/dL (6.3-8.2) 04/23/20 06:45 Albumin 3.2 g/dL (3.5-5.0) L 04/23/20 06:45 EGFR Cancelled 04/20/20 06:09 Urine Color DARLEEN 04/17/20 17:28 Urine Appearance CLEAR 04/17/20 17:28 Urine pH 5.0 (5.0-9.0) 04/17/20 17:28 Ur Specific [place] 1.018 04/17/20 17:28 Urine Protein NEGATIVE mg/dL (NEGATIVE) 04/17/20 17:28 Urine Glucose (UA) NEGATIVE mg/dL (NEGATIVE) 04/17/20 17:28 Urine Ketones NEGATIVE mg/dL (NEGATIVE) 04/17/20 17:28 Urine Blood NEGATIVE (NEGATIVE) 04/17/20 17:28 Urine Nitrite NEGATIVE (NEGATIVE) 04/17/20 17:28 Urine Bilirubin NEGATIVE (NEGATIVE) 04/17/20 17:28 Urine Urobilinogen 4.0 mg/dL (<2.0) H 04/17/20 17:28 Ur Leukocyte Esterase NEGATIVE (NEGATIVE) 04/17/20 17:28 Urine WBC (Auto) 1 /HPF 04/17/20 17:28 Urine RBC (Auto) 0 /HPF 04/17/20 17:28 U Hyaline Cast (Auto) 1 /LPF 04/17/20 17:28 Squamous Epi Cells Auto <1 /HPF 04/17/20 17:28 Urine Mucus (Auto) RARE /LPF 04/17/20 17:28 Urine Ascorbic Acid NEGATIVE (NEGATIVE) 04/17/20 17:28 Digoxin < 0.40 ng/mL (0.8-2.0) L 04/17/20 07:05 SARS-CoV-2 (PCR) NEGATIVE (NEGATIVE) 04/27/20 10:30 04/17/20 04/19/20 04/20/20 07:05 08:56 06:09 Troponin I 0.068 NT-Pro-B Natriuret Pep 16643 H 85748 H [id number] H 04/21/20 06:31 Troponin I NT-Pro-B Natriuret Pep 41307 H Impressions: Paracentesis Ultrasound 04/19/20 00:00 IMPRESSION: SUCCESSFUL ULTRASOUND GUIDED PARACENTESIS. Chest X-Ray 04/20/20 00:00 IMPRESSION: Increasing vascular congestion. Plan Plan of Treatment: Patient is going to hospice house today Time Spent: Greater than 30 Minutes Stroke Is this a Stroke Patient?: No Acute Heart Failure - Is this a Heart Failure Patient?: No
[2020-05-15] MEDS ORDERED: CYANOCOBALAMIN (VITAMIN B-12) INJ 1000 MCG/1 ML VIAL IM SCH (12:30)
== END 2020-04-27 18:38 | disposition hospice, inpatient (51) | DRG 291 ==
LOC: ER 06:40 → EH 08:55 → 4N 11:28 → 3S 04-20 13:41
PROVIDERS: ADMIT Internal Medicine; ATTEND Internal Medicine
PROC: 0W9G3ZZ Drainage of Peritoneal Cavity, Percutaneous Approach (ICD-10-PCS; 2020-04-19)
PROC: 02HV33Z Insertion of Infusion Device into Superior Vena Cava, Percutaneous Approach (ICD-10-PCS; principal; 2020-04-20)
DX: I11.0 Hypertensive heart disease with heart failure (principal); J96.21 Acute and chronic respiratory failure with hypoxia; E87.1 Hypo-osmolality and hyponatremia; J44.1 Chronic obstructive pulmonary disease with (acute) exacerbation; I48.20 Chronic atrial fibrillation, unspecified; I47.1 Supraventricular tachycardia; K70.31 Alcoholic cirrhosis of liver with ascites; I95.9 Hypotension, unspecified; I42.0 Dilated cardiomyopathy; I73.9 Peripheral vascular disease, unspecified; I50.23 Acute on chronic systolic (congestive) heart failure; Z51.5 Encounter for palliative care; D64.9 Anemia, unspecified; I25.10 Atherosclerotic heart disease of native coronary artery without angina pectoris; K40.90 Unilateral inguinal hernia, without obstruction or gangrene, not specified as recurrent; G89.4 Chronic pain syndrome; E78.5 Hyperlipidemia, unspecified; E03.9 Hypothyroidism, unspecified; M19.90 Unspecified osteoarthritis, unspecified site; F43.10 Post-traumatic stress disorder, unspecified; I25.5 Ischemic cardiomyopathy; E83.42 Hypomagnesemia; R41.82 Altered mental status, unspecified; Z11.59 Encounter for screening for other viral diseases; I25.2 Old myocardial infarction; Z98.84 Bariatric surgery status; Z87.891 Personal history of nicotine dependence; Z82.49 Family history of ischemic heart disease and other diseases of the circulatory system; Z88.6 Allergy status to analgesic agent; Z88.0 Allergy status to penicillin; Z91.19 Patient's noncompliance with other medical treatment and regimen
CPT/HCPCS: 36415; 49083; 71045; 80048; 80053; 80162; 81001; 82140; 82550; 82803; 82962; 83735; 83880; 84100; 84484; 85025; 85610; 87040; 87635; 93005; 93010; 94640; 96374; 99285; C9803; J0696; J1160; J1265; J1650; J1940; J2060; J2270; J2310; J3475; J3480; J3490; J7030